=== PATIENT | male | born 1950 | race Caucasian/White ===

== ENCOUNTER → 2017-06-03 11:27 | Outpatient (CLI) | payer MEDICARE, SELFPAY ==
[2017-06-03 13:10] LABS: Absolute Lymphocyte Count 3.11 X10^3/ul (0.83-4.51); Absolute Neutrophil Count 6.7 X10^3/uL (2.0-7.7); Basophil# 0.04 X10^3/uL; Basophil% 0.3 % (0-1); Eosinophil# 0.31 X10^3/uL; Eosinophils% 2.7 % (0-5); Hemoglobin 16.3 g/dl (13.0-16.5); Lymphocyte # 3.11 X10^3/ul (4.0); Mean Corp Hgb Conc 32.6 g/gl (32-36); Mean Corpuscular Hgb 30.1 pg (27.0-32.0); Mean Corpuscular Volume 92.4 fL (80-94); Monocyte# 1.27 X10^3/uL; Neutrophil % 58.3 % (47-70); Platelet Count 165 K/mm3 (150-450); RBC Distribution Width CV 13.7 % (11.6-14.6); RBC Distribution Width SD 45.1 fl (35.1-43.9); Red Blood Count 5.41 M/mm3 (4.6-6.2); White Blood Count 11.5 K/mm3 (4.4-11.0)
[2017-06-03 13:11] LABS: POSITIVE COUNT NO; POSITIVE DIFFERENTIAL NO; POSITIVE MORPHOLOGY NO
[2017-06-03 13:34] LABS: AST(SGOT) 26 U/L (15-37); Alanine Aminotransfer ALT/SGPT 54 U/L (16-61); Alkaline Phosphatase 120 U/L (45-117); Anion Gap 8 (5-15); BUN 19 mg/dL (7-18); BUN/Creat Ratio 17.6 RATIO (10-20); Calcium,Total 9.4 mg/dL (8.5-10.1); Chloride 103 mmol/L (98-107); Creatinine, Serum 1.08 mg/dL (0.70-1.30); EST Glomerular Filtration Rate 73 mL/min (>60); Est Glom Filt Rate - Afr Amer 88 mL/min (>60); Globulin 3.9 g/dL (2.2-4.2); Glucose 108 mg/dL (74-106); Potassium 4.3 mmol/L (3.5-5.1); Protein, Total 7.9 g/dL (6.4-8.2); Sodium Level 139 mmol/L (136-145)
== END ==
PROVIDERS: Family Provider Family Medicine Geriatric Medicine; PCP Family Medicine Geriatric Medicine; Visit Provider Family Medicine Geriatric Medicine
DX: E11.9 Type 2 diabetes mellitus without complications (principal); E23.6 Other disorders of pituitary gland; I10 Essential (primary) hypertension
CPT/HCPCS: 36415; 80053; 84403; 84443; 85025

== ENCOUNTER → 2017-12-11 11:17 | Outpatient (CLI) | payer MEDICARE, SELFPAY ==
[2017-12-11 12:43] LABS: Hematocrit 47.7 % (40-54); Hemoglobin 15.6 g/dl (13.0-16.5); Mean Corp Hgb Conc 32.7 g/gl (32-36); Mean Corpuscular Hgb 29.9 pg (27.0-32.0); Mean Corpuscular Volume 91.4 fL (80-94); Mean Platelet Vol. 12.3 fl (6.2-12.0); Platelet Count 174 K/mm3 (150-450); RBC Distribution Width CV 14.2 % (11.6-14.6); RBC Distribution Width SD 47.1 fl (35.1-43.9); Red Blood Count 5.22 M/mm3 (4.6-6.2); White Blood Count 10.6 K/mm3 (4.4-11.0)
[2017-12-11 12:44] LABS: Absolute Lymphocyte Count 3.03 X10^3/ul (0.83-4.51); Absolute Neutrophil Count 5.9 X10^3/uL (2.0-7.7); Basophil# 0.06 X10^3/uL; Basophil% 0.6 % (0-1); Eosinophils% 2.8 % (0-5); Lymphocyte # 3.03 X10^3/ul (4.0); Lymphocyte % 28.7 % (19-41); Monocyte# 1.13 X10^3/uL; Monocyte% 10.7 % (0-10); Neutrophil # 5.92 X10^3/uL (2.7-7.7); Neutrophil % 56.2 % (47-70)
[2017-12-11 12:49] LABS: POSITIVE COUNT NO; POSITIVE DIFFERENTIAL NO; POSITIVE MORPHOLOGY NO
[2017-12-11 13:01] LABS: Vitamin D,25 Hydroxy 9.6 ng/mL (29.95-100.01)
[2017-12-11 13:03] LABS: AST(SGOT) 19 U/L (15-37); Alanine Aminotransfer ALT/SGPT 42 U/L (16-61); Albumin, Serum 3.8 g/dL (3.2-5.0); Alkaline Phosphatase 118 U/L (45-117); Anion Gap 10 (5-15); BUN 23 mg/dL (7-18); BUN/Creat Ratio 18.5 RATIO (10-20); Calcium,Total 9.2 mg/dL (8.5-10.1); Chloride 103 mmol/L (98-107); Creatinine, Serum 1.24 mg/dL (0.70-1.30); EST Glomerular Filtration Rate 62 mL/min (>60); Est Glom Filt Rate - Afr Amer 75 mL/min (>60); Glucose 114 mg/dL (74-106); PSA,Total - Annual Screen 0.26 ng/mL (0.00-4.00); Potassium 4.1 mmol/L (3.5-5.1); Protein, Total 7.8 g/dL (6.4-8.2); Sodium Level 139 mmol/L (136-145); Thyroid Stim Hormone (TSH) 1.54 uIU/mL (0.358-3.74)
[2017-12-12 09:11] LABS: Hep C Antibodies <0.1 s/co ratio (0.0-0.9)
== END ==
PROVIDERS: Family Provider Family Medicine Geriatric Medicine; PCP Family Medicine Geriatric Medicine; Visit Provider Family Medicine Geriatric Medicine
DX: E11.9 Type 2 diabetes mellitus without complications (principal); I10 Essential (primary) hypertension; E23.6 Other disorders of pituitary gland; E55.9 Vitamin D deficiency, unspecified; Z12.5 Encounter for screening for malignant neoplasm of prostate; Z13.89 Encounter for screening for other disorder
CPT/HCPCS: 36415; 80053; 82306; 84153; 84403; 84443; 85025; 86803; G0103

== ENCOUNTER → 2017-12-16 15:57 | Outpatient (CLI) | payer MEDICARE, OTHER, SELFPAY ==
--- NOTE | 2017-12-16 16:02 | CT_ITS ---
STUDY: LOW DOSE CT LUNG CANCER SCREENING REASON FOR EXAM: Male, 67 years old. 25 pack-year smoking history. RADIATION DOSAGE (If Supplied By Facility): CTDIvol = ( 4.02 ) mGy, DLP = ( 152.50 ) mGycm TECHNIQUE: No contrast was administered. Low dose technique was utilized (average mAS-38 and kVp 120). 1.25 mm axial source images with a slice interval of 1.25-mm were reconstructed in lung windows. 2.5 mm axial source images with a slice interval of 2.5-mm were reconstructed in lung windows. 5.0 mm axial source images with a slice interval of 5.0-mm were reconstructed in soft tissue windows. Nodule measured using lung windows on PACS and/or independent workstation with automated measurement of minimum and maximum diameter. Nodule measurement reported as average diameter rounded to the nearest whole number. Growth is defined as an increase ins size of greater than 1.5 mm. COMPARISON: December 02, 2014. NODULES: Total lung nodules (excluding granulomas): 0 Emphysema: There are diffuse emphysematous changes of the lungs which appears stable. There is minimal dependent changes at the lung bases. There is mild bilateral apical pleural scarring. Endobronchial lesion: No Aorta: Normal Coronary arteries: There are coronary artery calcifications. Heart: The heart is normal in size. Pulmonary artery: Normal Mediastinal nodes: None Other chest and abdominal findings: Minimal degenerative changes of the thoracic spine. CT/Low Dose CT Lung Screening IMPRESSION: Lung-RADS category 1 - Continue annual screening with LDCT in 12 months. IMPORTANT NOTES FOR USE: ACR Lung-RADS Version 1.0 Assessment Categories Release Date: July 20, 2013 Category: Coded 0-4 bases on nodule(s) with highest degree of suspicion. Negative screen is defined as categories 1 and 2; a positive screen is defined as categories 3 and 4. Category 3 and 4A nodules that are unchanged on interval CT should be coded as category 2, and individuals returned to screening in 12 months. Category 4X: Category 3 or 4 nodules with additional imaging findings that increase the suspicion of lung cancer, such as spiculation, GGN that doubles in size in 1 year, enlarged lymph notes, etc. Category Modifiers: S (significant finding unrelated to lung cancer) and C (prior history of treated lung cancer) may be added to the 0-4 Lung-RADS Electronically Signed: Greg Velez DO at 23:32 EDT Tel [phone], Service support ,
== END ==
PROVIDERS: Family Provider Family Medicine Geriatric Medicine; PCP Family Medicine Geriatric Medicine; Visit Provider Family Medicine Geriatric Medicine
DX: Z12.2 Encounter for screening for malignant neoplasm of respiratory organs (principal); Z87.891 Personal history of nicotine dependence
CPT/HCPCS: G0297

== ENCOUNTER → 2018-06-17 14:48 | Outpatient (CLI) | payer MEDICARE, OTHER, SELFPAY ==
[2018-06-17 16:10] LABS: Absolute Lymphocyte Count 2.67 X10^3/ul (0.83-4.51); Absolute Neutrophil Count 6.7 X10^3/uL (2.0-7.7); Basophil# 0.05 X10^3/uL; Basophil% 0.5 % (0-1); Eosinophil# 0.28 X10^3/uL; Eosinophils% 2.6 % (0-5); Hematocrit 47.6 % (40-54); Hemoglobin 15.5 g/dl (13.0-16.5); Lymphocyte # 2.67 X10^3/ul (4.0); Lymphocyte % 24.4 % (19-41); Mean Corp Hgb Conc 32.6 g/gl (32-36); Mean Corpuscular Hgb 29.8 pg (27.0-32.0); Mean Corpuscular Volume 91.5 fL (80-94); Mean Platelet Vol. 12.7 fl (6.2-12.0); Monocyte# 1.15 X10^3/uL; Monocyte% 10.5 % (0-10); Neutrophil # 6.71 X10^3/uL (2.7-7.7); Neutrophil % 61.3 % (47-70); Platelet Count 172 K/mm3 (150-450); RBC Distribution Width CV 14.2 % (11.6-14.6); RBC Distribution Width SD 47.5 fl (35.1-43.9); White Blood Count 10.9 K/mm3 (4.4-11.0)
[2018-06-17 16:13] LABS: POSITIVE COUNT NO; POSITIVE DIFFERENTIAL NO; POSITIVE MORPHOLOGY NO
[2018-06-17 16:31] LABS: Vitamin D,25 Hydroxy 34.7 ng/mL (29.95-100.01)
[2018-06-17 16:33] LABS: AST(SGOT) 25 U/L (15-37); Alanine Aminotransfer ALT/SGPT 51 U/L (16-61); Albumin, Serum 3.8 g/dL (3.2-5.0); Alkaline Phosphatase 117 U/L (45-117); Anion Gap 9 (5-15); BUN 20 mg/dL (7-18); BUN/Creat Ratio 16.7 RATIO (10-20); Chloride 108 mmol/L (98-107); EST Glomerular Filtration Rate 64 mL/min (>60); Est Glom Filt Rate - Afr Amer 78 mL/min (>60); Globulin 3.8 g/dL (2.2-4.2); Glucose 142 mg/dL (74-106); Potassium 4.1 mmol/L (3.5-5.1); Protein, Total 7.6 g/dL (6.4-8.2); Sodium Level 141 mmol/L (136-145); Thyroid Stim Hormone (TSH) 1.88 uIU/mL (0.358-3.74)
== END ==
PROVIDERS: Family Provider Family Medicine Geriatric Medicine; PCP Family Medicine Geriatric Medicine; Visit Provider Family Medicine Geriatric Medicine
DX: E11.9 Type 2 diabetes mellitus without complications (principal); I10 Essential (primary) hypertension; E23.6 Other disorders of pituitary gland; E55.9 Vitamin D deficiency, unspecified
CPT/HCPCS: 36415; 80053; 82306; 84403; 84443; 85025

== ENCOUNTER → 2018-12-16 13:56 | Outpatient (CLI) | payer MEDICARE, OTHER, SELFPAY ==
[2018-12-16 16:34] LABS: Absolute Neutrophil Count 7.6 X10^3/uL (2.0-7.7); Basophil# 0.07 X10^3/uL; Basophil% 0.6 % (0-1); Eosinophils% 1.7 % (0-5); Hematocrit 50.6 % (40-54); Hemoglobin 16.2 g/dL (13.0-16.5); Lymphocyte % 20.1 % (19-41); Mean Corpuscular Hgb 29.4 pg (27.0-32.0); Mean Corpuscular Volume 91.8 fL (80-94); Mean Platelet Vol. 12.9 fl (6.2-12.0); Monocyte# 1.14 X10^3/uL; Monocyte% 9.9 % (0-10); NRBC Flagged by Analyzer 0 % (0-5); Neutrophil # 7.62 X10^3/uL (2.7-7.7); Neutrophil % 66.5 % (47-70); Platelet Count 170 K/mm3 (150-450); RBC Distribution Width CV 13.9 % (11.6-14.6); RBC Distribution Width SD 47.1 fl (35.1-43.9); Red Blood Count 5.51 M/mm3 (4.6-6.2); White Blood Count 11.5 K/mm3 (4.4-11.0)
[2018-12-16 16:58] LABS: AST(SGOT) 24 U/L (15-37); Alanine Aminotransfer ALT/SGPT 49 U/L (16-61); Albumin, Serum 3.8 g/dL (3.2-5.0); Alkaline Phosphatase 132 U/L (45-117); Anion Gap 10 (5-15); BUN 18 mg/dL (7-18); BUN/Creat Ratio 15.5 RATIO (10-20); Calcium,Total 9.3 mg/dL (8.5-10.1); Chloride 104 mmol/L (98-107); Creatinine, Serum 1.16 mg/dL (0.70-1.30); EST Glomerular Filtration Rate 67 mL/min (>60); Est Glom Filt Rate - Afr Amer 81 mL/min (>60); Glucose 155 mg/dL (74-106); PSA,Total - Annual Screen 0.49 ng/mL (0.00-4.00); Potassium 4.2 mmol/L (3.5-5.1); Protein, Total 7.8 g/dL (6.4-8.2); Sodium Level 140 mmol/L (136-145); Thyroid Stim Hormone (TSH) 1.43 uIU/mL (0.358-3.74); Vitamin D,25 Hydroxy 21.1 ng/mL (29.95-100.01)
== END ==
PROVIDERS: Family Provider Family Medicine Geriatric Medicine; PCP Family Medicine Geriatric Medicine; Visit Provider Family Medicine Geriatric Medicine
DX: E11.9 Type 2 diabetes mellitus without complications (principal); I10 Essential (primary) hypertension; E23.6 Other disorders of pituitary gland; E55.9 Vitamin D deficiency, unspecified; Z12.5 Encounter for screening for malignant neoplasm of prostate
CPT/HCPCS: 36415; 80053; 82306; 84153; 84403; 84443; 85025; G0103

== ENCOUNTER → 2018-12-22 13:40 | Outpatient (CLI) | payer MEDICARE, OTHER, SELFPAY ==
--- NOTE | 2018-12-22 13:41 | CT_ITS ---
STUDY: LOW DOSE CT LUNG CANCER SCREENING REASON FOR EXAM: Male, [address] chest December 16, 2017 RADIATION DOSAGE (If Supplied By Facility): CTDIvol = ( 4.02 ) mGy, DLP = ( 156.02 ) mGycm TECHNIQUE: No contrast was administered. Low dose technique was utilized (average mAS-38 and kVp 120). 1.25 mm axial source images with a slice interval of 1.25-mm were reconstructed in lung windows. 2.5 mm axial source images with a slice interval of 2.5-mm were reconstructed in lung windows. 5.0 mm axial source images with a slice interval of 5.0-mm were reconstructed in soft tissue windows. Nodule measured using lung windows on PACS and/or independent workstation with automated measurement of minimum and maximum diameter. Nodule measurement reported as average diameter rounded to the nearest whole number. Growth is defined as an increase ins size of greater than 1.5 mm. COMPARISON: None. NODULES: Total lung nodules (excluding granulomas): 0 Emphysema: Mild Endobronchial lesion: None Aorta: Normal Coronary arteries: Coronary artery calcifications. Heart: Normal Pulmonary artery: Normal Mediastinal nodes: Normal Other chest and abdominal findings: Unremarkable CT/Low Dose CT Lung Screening IMPRESSION: No significant pulmonary nodules or masses. LRADS 1. IMPORTANT NOTES FOR USE: ACR Lung-RADS Version 1.0 Assessment Categories Release Date: July 20, 2013 Category: Coded 0-4 bases on nodule(s) with highest degree of suspicion. Negative screen is defined as categories 1 and 2; a positive screen is defined as categories 3 and 4. Category 3 and 4A nodules that are unchanged on interval CT should be coded as category 2, and individuals returned to screening in 12 months. Category 4X: Category 3 or 4 nodules with additional imaging findings that increase the suspicion of lung cancer, such as spiculation, GGN that doubles in size in 1 year, enlarged lymph notes, etc. Category Modifiers: S (significant finding unrelated to lung cancer) and C (prior history of treated lung cancer) may be added to the 0-4 Lung-RADS Electronically Signed: Carlin Layton, at 17:11 EDT Tel , Service support ,
== END ==
PROVIDERS: Family Provider Family Medicine Geriatric Medicine; PCP Family Medicine Geriatric Medicine; Referring Provider Family Medicine Geriatric Medicine; Visit Provider Family Medicine Geriatric Medicine
DX: Z87.891 Personal history of nicotine dependence (principal)
CPT/HCPCS: G0297

== ENCOUNTER → 2019-05-04 12:22 | Outpatient (CLI) | payer MEDICARE, OTHER, SELFPAY ==
--- NOTE | 2019-05-04 12:39 | RAD_ITS ---
STUDY: X-RAY CHEST REASON FOR EXAM: Male, 68 years old. SOB SINCE JANUARY TECHNIQUE: PA and lateral views of the chest. COMPARISON: None. FINDINGS: Hyperinflation. Mild increase in linear markings at the lung bases slightly worse on the left side suggestive of a atelectasis and/or scarring. Normal size heart. Normal mediastinum and lai. Normal visualized pulmonary arteries. There is atherosclerotic calcification of the aortic arch with tortuosity. There are diffuse degenerative changes of the visualized thoracic spine. Normal visualized ribs, clavicles, and shoulders. There is no demonstrated abnormality of the visualized soft tissue structures of the upper abdomen. RAD/Chest PA and Lateral IMPRESSION: Hyperinflation. Mild degree of increased markings at the lung bases suggestive of linear atelectasis and/or scarring. Electronically Signed: Morales Ramírez, at 13:31 EST , Service support ,
[2019-05-04 14:48] LABS: Absolute Lymphocyte Count 2.63 X10^3/uL (0.83-4.51); Absolute Neutrophil Count 7.2 X10^3/uL (2.0-7.7); Basophil% 0.8 % (0-1); Eosinophils% 3.4 % (0-5); Hematocrit 49.5 % (40-54); Hemoglobin 15.5 g/dL (13.0-16.5); Lymphocyte # 2.63 X10^3/ul (4.0); Lymphocyte % 22.3 % (19-41); Mean Corp Hgb Conc 31.3 g/dL (32-36); Mean Corpuscular Hgb 28.9 pg (27.0-32.0); Mean Corpuscular Volume 92.4 fL (80-94); Monocyte% 10.2 % (0-10); NRBC Flagged by Analyzer 0 % (0-5); Neutrophil # 7.24 X10^3/uL (2.7-7.7); Neutrophil % 61.4 % (47-70); Platelet Count 187 K/mm3 (150-450); RBC Distribution Width CV 13.7 % (11.6-14.6); RBC Distribution Width SD 46.1 fl (35.1-43.9); Red Blood Count 5.36 M/mm3 (4.6-6.2); White Blood Count 11.8 K/mm3 (4.4-11.0)
[2019-05-04 15:17] LABS: D-Dimer Quantitative (DVT/PE) 3.86 FEU/ug/m (0.27-0.49)
[2019-05-04 15:25] LABS: Anion Gap 4 (5-15); BNP,B-Type NATRIURETIC PEPTIDE 79.6 pg/mL (0-100); BUN 21 mg/dL (7-18); BUN/Creat Ratio 17.2 RATIO (10-20); CPK Total, Creatine Kinase 99 U/L (39-308); Calcium,Total 9.7 mg/dL (8.5-10.1); Chloride 112 mmol/L (98-107); Creatinine, Serum 1.22 mg/dL (0.70-1.30); EST Glomerular Filtration Rate 63 mL/min (>60); Est Glom Filt Rate - Afr Amer 76 mL/min (>60); Glucose 126 mg/dL (74-106); Potassium 4.4 mmol/L (3.5-5.1); Sodium Level 143 mmol/L (136-145)
--- NOTE | 2019-05-04 17:12 | CT_ITS ---
STUDY: CTA CHEST REASON FOR EXAM: Male, 68 years old. Elevated D-dimer, cough x 2 months, SOB, hx DVT, no blood thinners x 1 year. Hx hypertension. Patient taken to ED for further evaluation-ordering physician notified. RADIATION DOSAGE (If Supplied By Facility): CTDIvol = ( 12.44 ) mGy, DLP = ( 521.15 ) mGycm TECHNIQUE: The examination was performed with the intravenous administration of 100mL Isovue 370. Post-processing of the angiographic images was performed, with multiplanar reformation and 3D reconstruction. Individualized dose optimization techniques were used for this CT. COMPARISON: CT chest 12/22/2018. FINDINGS: There are linear filling defects within the main pulmonary which crosses into the right and left main pulmonary arteries indicating a saddle type embolus. There is a large thrombus within the distal right main pulmonary artery. There are extensive bilateral upper, right middle lower lobe segmental and subsegmental pulmonary emboli with multiple filling defects. There is mass effect on the interventricular septum bowing to the left. Decreased volume and within the left ventricle. There is mild distention of the right ventricle. There is significant motion artifact on exam. There is scattered bulla and pulmonary scarring. Normal thoracic aorta and visualized great vessels. There is no demonstrated aortic dissection. Normal heart and pericardium. Normal mediastinum. Normal hilar regions. Normal visualized trachea and bronchi. The lungs are well expanded. There is linear scarring with subsegmental atelectasis. Normal pleura. Normal chest wall structures. Normal osseous structures. There is hypodensity within the liver which is incompletely included on rebal-rh-sgen. CT/CTA Chest W/WO Contrast IMPRESSION: Extensive pulmonary emboli including saddle embolus, likely right heart strain Scattered bulla and pulmonary scarring Fatty infiltration of the liver Motion artifact Results were discussed with Dr. Guallpa after my review at 6:38 PM 05/04/2019. N.B. : The above information has been verbally conveyed by Ricky Isbell to Dr. Ramu MD, on 05/04/2019 18:39:27 (ET). Electronically Signed: Ricky Isbell, at 18:43 EST Tel , Service support ,
[2019-05-06 12:29] LABS: Myoglobin, Serum 105 ng/mL (28-72)
== END ==
LOC: POLAB3 12:22 → RAD 12:38
PROVIDERS: PCP Family Medicine Geriatric Medicine; Referring Provider Family Medicine Geriatric Medicine; Visit Provider Family Medicine Geriatric Medicine
DX: R06.89 Other abnormalities of breathing (principal); R06.09 Other forms of dyspnea; R79.9 Abnormal finding of blood chemistry, unspecified
CPT/HCPCS: 36415; 71046; 71275; 80048; 82550; 83874; 83880; 84484; 85025; 85379; Q9967

== ENCOUNTER 2019-05-04 17:40 | Inpatient (IN) | payer MEDICARE, OTHER, SELFPAY ==
[2019-05-04] VITALS (16 sets, daily range): BP systolic 133–174; BP diastolic 74–95; PULSE 103–117; RESP 16–21; TEMP 36.4–36.7; O2SAT 91–97; BMI 38.7
--- NOTE | 2019-05-04 18:04 | EKG12_ITS ---
Test Reason : DYSRHYTHMIA Blood Pressure : / mmHG Vent. Rate : 112 BPM Atrial Rate : 112 BPM P-R Int : 194 ms QRS Dur : 092 ms QT Int : 320 ms P-R-T Axes : 051 066 076 degrees QTc Int : 436 ms Sinus tachycardia Nonspecific ST abnormality Abnormal ECG Confirmed by MISTY ALVARENGA, MAXIMILIANO ([id number]), content editor CHENG KIRBY ([id number]) on 05/06/2019 9:53:00 AM Referred By: JOSÉ Confirmed By:MAXIMILIANO JAY MD
[2019-05-04 18:45] LABS: Absolute Lymphocyte Count 0.63 X10^3/uL (0.83-4.51); Absolute Neutrophil Count 10.5 X10^3/uL (2.0-7.7); Basophil# 0.05 X10^3/uL; Basophil% 0.4 % (0-1); Eosinophil# 0.01 X10^3/uL; Eosinophils% 0.1 % (0-5); Hematocrit 48.5 % (40-54); Hemoglobin 15.4 g/dL (13.0-16.5); Lymphocyte # 0.63 X10^3/ul (4.0); Lymphocyte % 5.5 % (19-41); Mean Corp Hgb Conc 31.8 g/dL (32-36); Mean Corpuscular Hgb 29.2 pg (27.0-32.0); Mean Platelet Vol. 11.5 fl (6.2-12.0); Monocyte# 0.09 X10^3/uL; Monocyte% 0.8 % (0-10); NRBC Flagged by Analyzer 0 % (0-5); Neutrophil # 10.49 X10^3/uL (2.7-7.7); Neutrophil % 91.5 % (47-70); Platelet Count 178 K/mm3 (150-450); RBC Distribution Width CV 13.4 % (11.6-14.6); RBC Distribution Width SD 45.4 fl (35.1-43.9); Red Blood Count 5.27 M/mm3 (4.6-6.2); White Blood Count 11.5 K/mm3 (4.4-11.0)
[2019-05-04 18:55] LABS: Prothrombin Time (Protime)PT. 13.1 SECONDS (11.7-14.9)
[2019-05-04 18:56] LABS: Partial Thromboplast Time 26.2 Seconds (24.1-36.2)
--- NOTE | 2019-05-04 18:59 | ED.DCSUM_ITS ---
- ER Visit Summary Date of Service: 05/04/19 Chief Complaint: Abnormal CTA History of Present Illness: The patient is a 68 M with a history of DVT. He has been off anticoagulation for a year at his doctor's recommendation. He had an upper respiratory infection, but his symptoms persisted over the past month. He has coughing and shortness of breath. He denies pain or fever. He went for an outpatient CTA and was told it was abnormal, and he was referred to the ED. Physical Examination: Afebrile and vital signs unremarkable except for heart rate of 117. Lower extremity edema noted, nontender. Heart tachycardic but regular. Lungs clear. Test Results: EKG shows sinus rhythm at a rate of 112. No sign of ischemia or infarction pattern. White count 11.5. INR 1.0. PTT pending. Metabolic panel and troponin pending. Outpatient CTA showed extensive PEs with a saddle embolism and suspected right heart strain. Emergency Department Course and Treatment: Labs pending. Outpatient testing showed creatinine 1.22, BUN 21, GFR 63. PTT pending, but will start anticoagulation with heparin. Patient is stable and will contact the hospitalist. Treatment Plan: As above Disposition: Admission Impression: Saddle pulmonary embolism This note was generated with [facility] dictation software. It may contain incorrect words, spelling, and punctuation that were not noted in review of the chart prior to signing ED Disposition - Plan for ED Patient: Referrals: Bulmaro Curtis Chi, MD [Primary Care Provider] -
[2019-05-04] MEDS: Heparin Injection (Vial) 5,000 UNIT/ML VIAL 4000 UNIT IV (19:02)
[2019-05-04] MEDS: HEPARIN/D5w 25,000 UNITS 25,000 UNITS/250 ML IV.SOLN. 10 UNITS IV (19:03)
[2019-05-04 19:04] LABS: Anion Gap 6 (5-15); BUN 22 mg/dL (7-18); Calcium,Total 9.2 mg/dL (8.5-10.1); Chloride 108 mmol/L (98-107); Creatinine, Serum 1.47 mg/dL (0.70-1.30); EST Glomerular Filtration Rate 51 mL/min (>60); Est Glom Filt Rate - Afr Amer 61 mL/min (>60); Estimated Creatinine Clearance 58.28 ml/min; Glucose 341 mg/dL (74-106); Potassium 4.3 mmol/L (3.5-5.1); Sodium Level 140 mmol/L (136-145)
--- NOTE | 2019-05-04 20:12 | HP.PCM_ITS ---
History of Present Illness Date of Admission: 05/04/19 Chief Complaint: Shortness of breath The patient is a 68 year old M with a past medical history as outlined including a history of right lower extremity DVT. He was admitted through the ED on 05/04/2019 with a complaint of shortness of breath. Shortness of breath had been going on for about a month but he states is gradually been worsening. He had assisted orthopnea and PND and also noticed swelling in his lower extremities mainly in his right lower extremity. He denied any chest pain or palpitation, dizziness, nausea vomiting or diarrhea. He continues PCP for review about a week ago and states he was sent in for chest x-ray. He denies any recent long distance travel or any recent surgeries and states he is usually sedentary at home. He was subsequently called in for CTA of the chest which was done on outpatient basis today and showed bilateral PE. He was therefore brought into the ED. In the ED, vitals were significant for pulse rate of 108 and respiratory rate of 20 and was saturating at 94% on 3 L of oxygen. Patient is not on oxygen at home. CBC showed WBC of 11.5 and chemistry showed creatinine of 1.47. Initial troponin was negative and BNP was ordered and pending. He has been admitted to be managed for acute hypoxic respiratory insufficiency due to bilateral PE. Of note, patient does have a history of right lower extremity DVT and was on xarelto for about a year. He was taken of the Xarelto about a year ago by his PCP and he is not sure why. Does not have any history of GI bleed or nosebleeds. [] Past Medical History Allergies Sulfa (Sulfonamide Antibiotics) Allergy (Verified 05/04/19 17:43) Rash Home Medications: Ambulatory Orders Medication Instructions Recorded Albuterol Sulfate [Ventolin Hfa] 2 puff IH BID 05/04/19 Atorvastatin Calcium 40 mg PO QHS 05/04/19 Budesonide/Formoterol 160/4.5 2 puff INHALATION BID 05/04/19 [Symbicort 160/4.5 Mcg Inhaler (SP)] Cholecalciferol (VIT D3) [Vitamin 1,000 unit PO DAILY 05/04/19 D] Losartan/Hydrochlorothiazide 1 tab PO DAILY 05/04/19 [Losartan-Hctz 100-12.5 mg Tab] Psychiatric History: No pertinent psych hx Lives: Spouse/ Significant Other Smoking Status: Former smoker Tobacco Use: Cigarettes - quit ~ 1 month ago Alcohol: Occasional Drugs: None - *Family History Maternal History Items: No pertinent history Paternal History Items: Heart Disease Review of Systems Constitutional: Denies: Chills, Fever, Malaise, Weakness, Weight Change Eyes: Denies: Blurred vision HEENT: Denies: Head Aches, Sinus Congestion, Sinus Drainage Cardiovascular: Reports: Orthopnea, Paroxysmal Noc. Dyspnea. Denies: Chest Pain, Light Headedness, Palpitations, Syncope Respiratory: Reports: Shortness of Breath, Shortness of breath at rest, Shortness of breath upon exertion. Denies: Cough, Wheezing Gastrointestinal: Denies: Abdominal Pain, Nausea, Vomiting Genitourinary: Denies: Dysuria Musculoskeletal: Denies: Joint Pain, Joint Tenderness Skin: Denies: Rash, Wounds Neurological: Denies: Numbness, Tingling, Focal weakness Psychiatric: Denies: Anxiety, Depression, Homicidal Ideations, Suicidal Ideations Hematologic/ Lymphatic: Denies: Easy Bruising, Easy Bleeding VTE Information - Inpt Only VTE Present on Admission: Yes - Physical Exam Vitals/I&O's: Vital Signs Temp Pulse Resp BP Pulse Ox 98.1 F 108 H 20 H 173/78 H 94 05/04/19 20:03 05/04/19 20:03 05/04/19 20:03 05/04/19 20:03 05/04/19 20:03 Oxygen Flow Rate (L/min) 3 Oxygen Delivery Method Nasal Cannula Weight: 309 lb 8 oz Body Mass Index (BMI) 38.7 General: Alert, Oriented x3, Cooperative, No apparent distress HEENT: Atraumatic, PERRLA, EOMI, Normocephalic Oral: Moist Mucosa Neck: Supple, No JVD, Negative Carotid Bruits Lungs: Clear to auscultation, Normal air movement, No rhonchi, No wheeze, No rales Cardiovascular: Regular Rhythm, Normal S1, Normal S2, No murmurs, Tachycardic Abdomen: Bowel Sounds Present, Soft, Non Tender, Non-Distended, No Hepato- splenomegaly Extremities: No clubbing, No cyanosis, Capillary Refill Less than 3 Seconds, - - mild bipedal pitting edema, RLE >LLE Skin: No rashes, No breakdown Musculoskeletal: No Tenderness to Palpation of Joints or Extremities Lymphatic: No Cervical, Supraclavicular, or Inguinal Adenopathy Neurological: Cranial nerves II-XII grossly intact, Neuro grossly intact, Motor Exam 5/5 strength throughout Psych/Mental Status: Normal Affect, Appropriate, Alert and oriented to time, place, person, mood and affect Laboratory Results 05/04/19 18:32: WBC 11.5 H, RBC 5.27, Hgb 15.4, Hct 48.5, MCV 92.0, MCH 29.2, MCHC 31.8 L, RDW Std Deviation 45.4 H, RDW Coeff of Neftali 13.4, Plt Count 178, MPV 11.5, Immature Gran % (Auto) 1.700 H, Neut % (Auto) 91.5 H, Lymph % (Auto) 5.5 L , Evangeline % (Auto) 0.8, Eos % (Auto) 0.1, Baso % (Auto) 0.4, Absolute Neuts (auto) 10.5 H, Absolute Lymphs (auto) 0.63 L, Nucleated RBC % 0 05/04/19 18:32: PT 13.1, INR 1.0, APTT 26.2 05/04/19 18:32: Sodium 140, Potassium 4.3, Chloride 108 H, Carbon Dioxide 26.0, Anion Gap 6, BUN 22 H, Creatinine 1.47 H, Estim Creat Clear Calc 58.28, Est GFR (MDRD) Af Amer 61, Est GFR (MDRD) Non-Af 51 L, BUN/Creatinine Ratio 15.0, Glucose 341 H, Calcium 9.2, Troponin I < 0.015 05/04/19 18:32: B-Natriuretic Peptide Pending Current Medications Heparin Sodium (Porcine) (Heparin Na) 0 unit IV UD PRN; Protocol Heparin Sodium/Dextrose () 25,000 units in 250 mls @ 10 mls/hr IV .Q25H [facility]; Protocol Last Admin: 05/04/19 19:03 Dose: 10 mls/hr Documented by: Sodium Chloride () 10 - 40 ml IV UD PRN PRN Reason: SALINE FLUSH Assessment/Plan 68-year-old patient admitted with a complaint of shortness of breath and found to have bilateral PE. 1. Submassive bilateral PE * Has a history of right lower extremity DVT and was on xarelto for about a year. Patient states he was taken off of xarelto about a year ago his PCP and does not know why. He denies any history of GI bleed or nosebleeds. * CTA done today showed extensive pulmonary emboli including saddle embolus and likely right heart strain with scattered bullae and pulmonary scarring as well as fatty infiltration of the liver. * has tachypnea and tachycardia; CT of the chest also showed right heart strain * initial plan was to admit to PCu; however per discussion with Dr Carolina, patient is pretty stable now, but at risk of decompensation, will therefore transfer patient to ICU for closer monitoring. Per discussion with Dr Carolina, if patient is to deteriorate and become hypotensive, then he may need tPA; Parts [employer] to be informed if he deteriorates. Night hospitalist informed * on heparin drip; will continue * 2D echo * Counseled that he will need to be anticoagulated for life. To consider switching to Xarelto tomorrow. * pulmonology consulted- discussed with Dr Carolina on phone. * 2. Acute hypoxic respiratory insufficiency due to submassive bilateral PE * currently on 3 L of oxygen. Titrate to maintain saturation above 90%. * 3. Hypertension: * Blood pressure is 173/78 * On losartan hydrochlorothiazide 100/12.5 mg daily. * IV hydralazine PRN. * 4. Hyperlipidemia: On statin. DVT prophylaxis: Not indicated as patient is on heparin drip for bilateral PE \ Code status: full code * Patient counseled extensively about different types of CODE STATUS including full code, DNR CCA and DNR CCA. * Patient elects to be full code. * Total [id number] time 16 minutes. Code Visit Inpatient E&M: 85673 Init Hosp L3 Procedures: 63777 Advncd Care Plan 30 Min
[2019-05-04 20:17] LABS: BNP,B-Type NATRIURETIC PEPTIDE 93.6 pg/mL (0-100)
--- NOTE | 2019-05-04 21:00 | NURSING ---
Report called to CHANDLER Crawford. Patient will be transferred to ICU 2.
[2019-05-04] MEDS: Atorvastatin Calcium 40 MG Tablet PO (21:58)
[2019-05-04] MEDS: Albuterol 2.5 MG/3 ML VIAL.NEB. INHALATION (22:16)
[2019-05-04] MEDS: Budesonide Respules 0.5 MG/2 ML AMPUL.NEB. INHALATION (22:16)
[2019-05-05] VITALS (20 sets, daily range): BP systolic 109–151; BP diastolic 59–94; PULSE 73–103; RESP 13–24; TEMP 36.4–36.8; O2SAT 88–97
[2019-05-05 00:51] LABS: Partial Thromboplast Time 34.3 Seconds (24.1-36.2)
[2019-05-05] MEDS: Heparin Injection (Vial) 5,000 UNIT/ML VIAL IV (00:57)
[2019-05-05] MEDS: 0.9% Saline Lock 10 ML Syringe IV ×2 (00:58→10:56)
[2019-05-05 04:05] LABS: Absolute Neutrophil Count 13.1 X10^3/uL (2.0-7.7); Basophil# 0.04 X10^3/uL; Basophil% 0.3 % (0-1); Hematocrit 46.6 % (40-54); Hemoglobin 14.8 g/dL (13.0-16.5); Lymphocyte % 9.6 % (19-41); Mean Corp Hgb Conc 31.8 g/dL (32-36); Mean Corpuscular Hgb 29.4 pg (27.0-32.0); Mean Corpuscular Volume 92.5 fL (80-94); Mean Platelet Vol. 11.5 fl (6.2-12.0); Monocyte# 0.79 X10^3/uL; NRBC Flagged by Analyzer 0 % (0-5); Neutrophil # 13.13 X10^3/uL (2.7-7.7); Neutrophil % 83.8 % (47-70); Platelet Count 185 K/mm3 (150-450); RBC Distribution Width CV 13.6 % (11.6-14.6); Red Blood Count 5.04 M/mm3 (4.6-6.2); White Blood Count 15.7 K/mm3 (4.4-11.0)
[2019-05-05 04:18] LABS: Anion Gap 6 (5-15); BUN 23 mg/dL (7-18); BUN/Creat Ratio 18.9 RATIO (10-20); Calcium,Total 9.1 mg/dL (8.5-10.1); Chloride 110 mmol/L (98-107); Creatinine, Serum 1.22 mg/dL (0.70-1.30); EST Glomerular Filtration Rate 63 mL/min (>60); Est Glom Filt Rate - Afr Amer 76 mL/min (>60); Estimated Creatinine Clearance 70.22 ml/min; Glucose 188 mg/dL (74-106); Potassium 4.3 mmol/L (3.5-5.1); Sodium Level 143 mmol/L (136-145)
--- NOTE | 2019-05-05 06:44 | PCM.CON.CC ---
Reason for Consult Reason for Consultation: Submassive PE History of Present Illness: The patient is a 68-year-old male, with a history as outlined below, who presented to the emergency department on May 04 due to the presence of shortness of breath, and after having completed a CTA chest, ordered by his primary care provider, which did reveal extensive bilateral pulmonary emboli along with radiographic evidence of right heart strain. The patient reports that in 2014, he was diagnosed with a deep vein thrombosis, for which he was placed on Xarelto for approximately 1 year, after which time, the medication was discontinued by his PCP. The patient denies a known history of any underlying hypercoagulable state. He denies a family history of venous thromboembolism. The patient has not traveled anywhere recently. He does readily admit that he lives a rather sedentary lifestyle. The patient is a previous smoker with a 75-[id number] smoking history, having quit completely 1 month ago. 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 He is currently prescribed both Symbicort and as needed albuterol in his home environment. He does not utilize supplemental oxygen at his baseline. On presentation to the emergency department, the patient was noted to be afebrile and hemodynamically stable. He was, nevertheless, tachycardic. Initial laboratory evaluation revealed a mildly elevated white blood cell count to 11,000. Chemistry profile was notable for an elevated creatinine to 1.47. Troponin and BNP were both negative. I personally discussed the case with the admitting hospitalist and recommended that the patient be monitored in the intensive care setting overnight due to the extensive clot burden noted on his CTA chest. This morning, the patient is asymptomatic and resting in his bedside recliner. He denies the presence of shortness of breath, chest pain or cough. Past Medical History Allergies Sulfa (Sulfonamide Antibiotics) Allergy (Verified 05/04/19 17:43) Rash Home Medications: Ambulatory Orders Medication Instructions Recorded Albuterol Sulfate [Ventolin Hfa] 2 puff IH BID 05/04/19 Atorvastatin Calcium 40 mg PO QHS 05/04/19 Budesonide/Formoterol 160/4.5 2 puff INHALATION BID 05/04/19 [Symbicort 160/4.5 Mcg Inhaler (SP)] Cholecalciferol (VIT D3) [Vitamin 1,000 unit PO DAILY 05/04/19 D] Losartan/Hydrochlorothiazide 1 tab PO DAILY 05/04/19 [Losartan-Hctz 100-12.5 mg Tab] Psychiatric History: No pertinent psych hx Lives: Spouse/ Significant Other Smoking Status: Former smoker Tobacco Use: Cigarettes - quit ~ 1 month ago Alcohol: Occasional Drugs: None - *Family History Maternal History Items: No pertinent history Paternal History Items: Heart Disease Review of Systems Constitutional: Denies: Chills, Fever Eyes: Denies: Blurred vision, Double vision HEENT: Denies: Head Aches, Sinus Congestion, Sinus Drainage Cardiovascular: Denies: Chest Pain, Palpitations Respiratory: Reports: Cough - now resolved, Shortness of Breath - now resolved Gastrointestinal: Denies: Abdominal Pain, Nausea, Vomiting Genitourinary: Denies: Dysuria Musculoskeletal: Denies: Joint Pain, Joint Tenderness Neurological: Denies: Numbness, Tingling, Focal weakness Psychiatric: Denies: Anxiety, Depression, Homicidal Ideations, Suicidal Ideations Hematologic/ Lymphatic: Reports: Hx of blood clot Objective: The patient's most recent lab work, culture data and imaging studies have all been personally reviewed. - Physical Exam Vitals/I&O's: Vital Signs Temp Pulse Resp BP Pulse Ox 98.2 F 90 20 H 124/75 H 96 05/05/19 04:00 05/05/19 05:00 05/05/19 05:00 05/05/19 05:00 05/05/19 05:00 Oxygen Flow Rate (L/min) 3 Oxygen Delivery Method Nasal Cannula Weight: 310 lb 10.101 oz Body Mass Index (BMI) 38.7 Intake and Output for Last 24 Hours 05/03/19 05/04/19 05/05/19 23:59 23:59 23:59 Intake Total 450 / 450 409.33 / 409.33 Output Total 400 / 400 450 / 450 Balance 50 / 50 -40.67 / -40.67 General: Alert, Oriented x3, Cooperative, No apparent distress HEENT: Atraumatic, PERRLA, Normocephalic Oral: No Gingival or Mucosal Lesions/ Ulcerations Neck: Supple, No Nodes, Trachea Midline Lungs: No rhonchi, No wheeze, No rales, Diminished Cardiovascular: Regular rate, Regular Rhythm, Normal S1, Normal S2 Abdomen: Bowel Sounds Present, Soft, Non Tender, Obese Extremities: No clubbing, No cyanosis Skin: No breakdown Musculoskeletal: No Tenderness to Palpation of Joints or Extremities Lymphatic: No Cervical, Supraclavicular, or Inguinal Adenopathy Neurological: Cranial nerves II-XII grossly intact, Neuro grossly intact Psych/Mental Status: Alert and oriented to time, place, person, mood and affect Labs (Last 48 Hours) 05/04/19 05/04/19 05/04/19 18:32 18:32 18:32 WBC 11.5 H RBC 5.27 Hgb 15.4 Hct 48.5 MCV 92.0 MCH 29.2 MCHC 31.8 L RDW Std Deviation 45.4 H RDW Coeff of Neftali 13.4 Plt Count 178 MPV 11.5 Immature Gran % (Auto) 1.700 H Neut % (Auto) 91.5 H Lymph % (Auto) 5.5 L Graves % (Auto) 0.8 Eos % (Auto) 0.1 Baso % (Auto) 0.4 Absolute Neuts (auto) 10.5 H Absolute Lymphs (auto) 0.63 L Nucleated RBC % 0 PT 13.1 INR 1.0 APTT 26.2 Sodium 140 Potassium 4.3 Chloride 108 H Carbon Dioxide 26.0 Anion Gap 6 BUN 22 H Creatinine 1.47 H Estim Creat Clear Calc 58.28 Est GFR (MDRD) Af Amer 61 Est GFR (MDRD) Non-Af 51 L BUN/Creatinine Ratio 15.0 Glucose 341 H Calcium 9.2 Troponin I < 0.015 B-Natriuretic Peptide 05/04/19 05/04/19 05/05/19 18:32 21:30 00:35 WBC RBC Hgb Hct MCV MCH MCHC RDW Std Deviation RDW Coeff of Neftali Plt Count MPV Immature Gran % (Auto) Neut % (Auto) Lymph % (Auto) Graves % (Auto) Eos % (Auto) Baso % (Auto) Absolute Neuts (auto) Absolute Lymphs (auto) Nucleated RBC % PT INR APTT 34.3 Sodium Potassium Chloride Carbon Dioxide Anion Gap BUN Creatinine Estim Creat Clear Calc Est GFR (MDRD) Af Amer Est GFR (MDRD) Non-Af BUN/Creatinine Ratio Glucose Calcium Troponin I < 0.015 B-Natriuretic Peptide 93.6 05/05/19 05/05/19 05/05/19 00:35 03:50 03:50 WBC 15.7 H RBC 5.04 Hgb 14.8 Hct 46.6 MCV 92.5 MCH 29.4 MCHC 31.8 L RDW Std Deviation 46.0 H RDW Coeff of Neftali 13.6 Plt Count 185 MPV 11.5 Immature Gran % (Auto) 1.300 H Neut % (Auto) 83.8 H Lymph % (Auto) 9.6 L Graves % (Auto) 5.0 Eos % (Auto) 0.0 Baso % (Auto) 0.3 Absolute Neuts (auto) 13.1 H Absolute Lymphs (auto) 1.50 Nucleated RBC % 0 PT INR APTT Sodium 143 Potassium 4.3 Chloride 110 H Carbon Dioxide 27.0 Anion Gap 6 BUN 23 H Creatinine 1.22 Estim Creat Clear Calc 70.22 Est GFR (MDRD) Af Amer 76 Est GFR (MDRD) Non-Af 63 BUN/Creatinine Ratio 18.9 Glucose 188 H Calcium 9.1 Troponin I < 0.015 B-Natriuretic Peptide Current Medications Albuterol Sulfate (Ventolin Aerosols) 2.5 mg INHALATION Q2H PRN PRN PRN Reason: SOB/Wheezing Albuterol Sulfate (Ventolin Aerosols) 2.5 mg INHALATION Q6HWA.RT [facility] Last Admin: 05/04/19 22:16 Dose: 2.5 mg Documented by: Atorvastatin Calcium (Lipitor) 40 mg PO QHS [facility] Last Admin: 05/04/19 21:58 Dose: 40 mg Documented by: Budesonide (Pulmicort Aerosol) 0.5 mg INHALATION Q12H.RT [facility] Last Admin: 05/04/19 22:16 Dose: 0.5 mg Documented by: Cholecalciferol (Vitamin D) 1,000 unit PO DAILY [facility] Glucagon () 1 mg IM .X1 PRN PRN Reason: Hypoglycemia Heparin Sodium (Porcine) (Heparin Na) 0 unit IV UD PRN; Protocol Last Admin: 05/05/19 00:57 Dose: 1,000 unit Documented by: Hydralazine HCl (Apresoline Iv) 10 mg IV Q6H PRN PRN PRN Reason: BLOOD PRESSURE ELEVATION Hydrochlorothiazide () 12.5 mg PO DAILY [facility] Heparin Sodium/Dextrose () 25,000 units in 250 mls @ 10 mls/hr IV .Q25H [facility]; Protocol Last Titration: 05/05/19 00:59 Dose: 12 mls/hr Documented by: Dextrose (Dextrose 10%-Water) 250 mls @ 999 mls/hr IV .Q16M PRN; Protocol PRN Reason: HYPOGLYCEMIA Losartan Potassium (Cozaar) 100 mg PO DAILY [facility] Nutritional Formula (Lactose Free) (Ensure Enlive) 120 ml PO 4X/DAY [facility] Last Admin: 05/04/19 21:58 Dose: Not Given Documented by: Sodium Chloride () 10 - 40 ml IV UD PRN PRN Reason: SALINE FLUSH Last Admin: 05/05/19 00:58 Dose: 30 ml Documented by: Assessment/Plan RECOMMENDATIONS: 1. Plan to continue heparin infusion with eventual transition to Xarelto or Eliquis, depending on insurance coverage. 2. Wean supplemental oxygen to maintain saturations at or above 90%. 3. Continue bronchodilator therapy per home regimen. 4. Obtain echocardiogram. 5. Perform walking oximetry study prior to consideration for discharge home. 6. Recommend close outpatient pulmonary follow-up within 2 weeks of discharge. 7. The patient is medically stable for transfer out of the intensive care unit. IMPRESSIONS: 1. Submassive PE/acute hypoxemic respiratory insufficiency The patient presented to the hospital with complaints of shortness of breath and cough in the setting of radiographic evidence of extensive bilateral pulmonary emboli with right heart strain pattern, consistent with submassive pulmonary embolism. The patient does have a history of previous DVT in 2014. At this time, I would recommend lifelong anticoagulation. He is currently on a heparin infusion, which can be transitioned to either Eliquis or Xarelto, depending on insurance coverage. We will plan to check an echocardiogram today. Perform walking oximetry study prior to consideration for discharge home. The patient should follow-up in the pulmonary medicine clinic within 2 weeks of discharge. 2. History of tobacco dependency, currently in remission/questionable history of obstructive lung disease The patient does have a longstanding tobacco abuse history and is not currently established with a pulmonary provider. I would recommend that he be continued on his scheduled bronchodilators as ordered. Upon follow-up in the pulmonary medicine clinic, baseline pulmonary function studies can be obtained. Ongoing tobacco cessation was strongly encouraged. 3. Obesity/hypertension/hyperlipidemia Complicates care, management, recovery and prognosis. Continue home medications as indicated. This note was generated with Beezagation software. It may contain incorrect words, spelling, and punctuation that were not noted in checking the note before signing. Code Visit Inpatient E&M: 65273 Init Hosp L3
[2019-05-05] MEDS: Budesonide Respules 0.5 MG/2 ML AMPUL.NEB. INHALATION (06:57)
[2019-05-05] MEDS: Albuterol 2.5 MG/3 ML VIAL.NEB. INHALATION ×2 (06:58→14:13)
--- NOTE | 2019-05-05 07:31 | ECHOCS_ITS ---
Reason For Study: Emboli Procedure This was a 2D Doppler, Color Flow transthoracic echocardiogram. The study was technically difficult. Contrast injection was performed. Exam performed portable in ICU/CCU. Left Ventricle Normal LV size. Moderate concentric left ventricular hypertrophy. Left ventricular systolic function is normal. The estimated ejection fraction is 65 %. Stage 1 diastolic dysfunction. No regional wall motion abnormalities noted. Right Ventricle Normal RV size. Normal systolic function. Atria The left atrium is mildly enlarged. Normal right atrium. Mitral Valve Normal mitral valve. Tricuspid Valve Normal tricuspid valve. Aortic Valve Normal aortic valve. Pulmonic Valve Normal pulmonic valve. Great Vessels Normal aortic root. The pulmonary artery is normal size. Normal inferior vena cava. Pericardium/Pleural No pericardial effusion. Medication Diluted definity 2.5ml given slow IV push to enhance endocardial definition. MMode/2D Measurements & Calculations LVIDd: 4.9 cm IVSd: 1.4 cm LA dimension: 4.0 cm LVIDs: 2.7 cm LVPWd: 1.3 cm RVDd: 3.8 cm FS: 45.1 % LAV(MOD-bp): 71.6 ml LA A4 area: 24.7 cm2 RA A4 area: 18.1 cm2 LAV(MOD-bp) Indexed: 27.1 ml/m2 LAV(MOD-sp2): 55.2 ml LAV(MOD-sp4): 77.5 ml Time Measurements MV dec time: 0.22 sec Doppler Measurements & Calculations MV E max travis: 75.4 cm/sec Lat Peak E' Travis: 9.7 cm/sec Med Peak E' Travis: 10.5 cm/sec MV A max travis: 84.7 cm/sec E/E' lat: 7.7 E/E' med: 7.2 MV E/A: 0.89 MV V2 max: 105.7 cm/sec MV P1/2t max travis: 104.9 cm/sec Ao V2 max: 164.0 cm/sec MV max P.5 mmHg MV P1/2t: 61.0 msec Ao max P.8 mmHg MV V2 mean: 60.0 cm/sec MV dec slope: 503.7 cm/sec2 MV mean P.7 mmHg MV V2 VTI: 23.1 cm MVA(P1/2t): 3.6 cm2 LV V1 max: 135.3 cm/sec PA V2 max: 142.5 cm/sec LV V1 max P.3 mmHg Interpretation Summary Normal LV size. Left ventricular systolic function is normal. The estimated ejection fraction is 65 %. Moderate concentric left ventricular hypertrophy. Stage 1 diastolic dysfunction. Contrast injection was performed. Ordering Physician: Leonel Carolina Referring Physician: Bulmaro Curtis Chi Performed By: Juan C England RCS
[2019-05-05 09:29] LABS: Partial Thromboplast Time 40.1 Seconds (24.1-36.2)
--- NOTE | 2019-05-05 09:46 | CASEMGMT ---
RN CM Assessment Note Presentation: Enoch LEONE Intro role of CM and purpose of RN CM assessment to patient in room. Demographics, PCP and Pharmacy verified. PCP: Dr. Curtis Specialists: Dr. Carolina [facility] Insurance: [facility] Prescription Benefit: [employer], [facility] Part D Plan. Call to [facility] to get pt's Drug Coverage information. Called to [facility]- this has and pt now has [employer]. Called to [facility] ([phone] and they put call through to [facility] rep). -Per [facility] rep- pt has $437 deductible which needs to be met prior to prescription being covered with $40 copay for either Eliquis or Xarelto. Discusssed with pt. He is aware, though is concerned with expense. 30 day free trial card can be used for first month supply. -Updated card information given to pharmacist @ [facility] also. Pt states he has been on Xarelto before and tolerated well. Xarelto and Eliquis saving card on front of chart to give to pt when medication is ordered. Dr. Carolina updated on above. BIN: [id number] PCN: [id number] ID: [id number] GRP: [id number] LNOK: , Meena Bee Living Arrangements: Lives with in one story home. 3 steps into home. Pt states he is independent, does not use ambulatory DME. Pt independent, denies care needs. Transportation: drives DME: Cpap, denies using ambulatory DME. Has walker, cane at home. HHC/SNF: none Patient DC goals: Home DC PLAN: Home on anticoagulation. Savings cards on front of chart to be given when medication is ordered. Elver DUNCANN RN ACM
[2019-05-05] MEDS: hydroCHLOROthiazide 12.5mg 12.5 MG PO (10:53)
[2019-05-05] MEDS: Losartan Potassium 100 MG Tablet PO (10:53)
[2019-05-05] MEDS: Rivaroxaban 15 MG Tablet PO (10:53)
--- NOTE | 2019-05-05 14:23 | DCINST_ITS ---
You will use the following diet at home:: No restrictions Your food should be the consistency of: Regular Your liquids should be the consistency of: Regular/Thin Discharge Activity: Return to Normal Activity Weight Bearing Status: Full weight bearing Allergies/Adverse Reactions: Allergies Sulfa (Sulfonamide Antibiotics) Allergy (Verified 05/04/19 17:43) Rash Medications to take at Discharge Albuterol Sulfate [Ventolin Hfa] 2 puff IH BID 05/04/19 Atorvastatin Calcium 40 mg PO QHS 05/04/19 Budesonide/Formoterol 160/4.5 [Symbicort 160/4.5 Mcg Inhaler (SP)] 2 puff INHALATION BID 05/04/19 Cholecalciferol (VIT D3) [Vitamin D3] 1,000 unit PO DAILY 05/04/19 Losartan/Hydrochlorothiazide [Losartan-Hctz 100-12.5 mg Tab] 1 tab PO DAILY 05/04/19 Rivaroxaban [Xarelto] 15 mg PO BIDCM #41 tab 05/05/19 The following prescriptions were given: Rivaroxaban [Xarelto] 15 mg PO BIDCM #41 tab Transmission Status: Pending to [facility] Primary Care Physician: Bulmaro Curtis Chi, MD [Primary Care Provider] - Please follow up with your Primary Care Physician in: in 2-3 weeks Test Results: Test results from this visit will be discussed in further detail at your follow- up appointment, if applicable. Please Follow Up With: Leonel Carolina DO When: in 2 weeks
--- NOTE | 2019-05-05 14:48 | CASEMGMT ---
[facility]LER CM Note- [facility]- Xarelto prescription is no cost with savings card. [facility] will bring to pt's room. Elver DUNCANN RN ACM
--- NOTE | 2019-05-05 16:22 | CHAPLAIN ---
Type of Pastoral Visit _x__ Initial Visit ___ Follow-up Visit ___ On-call Visit ___ General Patient Visit ___ Spiritual Assessment ___ Family Conference ___ Bereavement ___ Rapid Response ___ Code Blue ___ Other (describe below) Pastoral Care Referral From _x__ Patient ___ Family ___ Nurse ___ Physician ___ Sales Development Representative ___ Yield Improvement Engineer ___ Other (describe below) Sacrament/Intervention _x__ Active listening ___ Anointing ___ Jainism ___ Bereavement ___ Communion ___ Melina exploration ___ ___ Life review _x__ Prayer ___ Reconciliation ___ Sacrament of Sick _x__ Supportive presence ___ Wedding ___ Other (describe below) Pastoral Comments
--- NOTE | 2019-05-07 18:47 | PCM.DC.SUM ---
Discharge Date and Diagnosis Date of Admission: 05/04/19 Date of Discharge: 05/05/19 - Primary Discharge Diagnosis #1 saddle pulmonary embolus #2 hypoxia secondary to saddle pulmonary embolism #3 essential hypertension #4 hyperglycemia-etiology unclear Hospital Course and Treatment Operations: None Procedures: None Summary of Care Provided: The patient is a 68 year old M who was seen in the emergency room at [facility] after being sent there by his primary care physician after an outpatient CTA of the chest showed a saddle embolus. Patient was placed on IV heparin in the emergency room and he was admitted to ICU. Patient required oxygen via nasal cannula at 3 to 4 L during his hospitalization. On 05/05/2019, patient was seen and examined by critical care and his oxygen was weaned off. Patient appeared to be stable for discharge home on oral anticoagulants. On 05/05/2019, patient was seen and examined: On examination he appeared in good health and spirits. Vital signs as documented. Skin warm and dry and without overt rashes. Neck without JVD. Lungs clear. Heart exam notable for regular rhythm, normal sounds and absence of murmurs, rubs or gallops. Abdomen unremarkable and without evidence of organomegaly, masses, or abdominal aortic enlargement. Extremities nonedematous. Neuro: Cranial nerves II through XII are grossly intact, no focal motor deficits were noted, sensation to light touch and pinprick intact. Psych: Patient is alert and oriented x3, he does not appear anxious or depressed On 05/05/2019, patient was discharged home in stable condition - Physical Exam Vitals/I&O's: Vital Signs Temp Pulse Resp BP Pulse Ox 97.6 F L 75 24 H 128/68 H 93 05/05/19 16:30 05/05/19 16:30 05/05/19 16:30 05/05/19 16:30 05/05/19 16:30 Oxygen Flow Rate (L/min) 3 Oxygen Delivery Method Room Air Weight: 140.9 kg Body Mass Index (BMI) 38.7 Intake and Output for Last 24 Hours 05/05/19 05/06/19 05/07/19 23:59 23:59 23:59 Intake Total 1228.53 / 1228.53 Output Total 875 / 875 Balance 353.53 / 353.53 Discharge Activity: Return to Normal Activity Weight Bearing Status: Full weight bearing Home Medications: Medications to take at Discharge Albuterol Sulfate [Ventolin Hfa] 2 puff IH BID 05/04/19 Atorvastatin Calcium 40 mg PO QHS 05/04/19 Budesonide/Formoterol 160/4.5 [Symbicort 160/4.5 Mcg Inhaler (SP)] 2 puff INHALATION BID 05/04/19 Cholecalciferol (VIT D3) [Vitamin D3] 1,000 unit PO DAILY 05/04/19 Losartan/Hydrochlorothiazide [Losartan-Hctz 100-12.5 mg Tab] 1 tab PO DAILY 05/04/19 Rivaroxaban [Xarelto] 15 mg PO BIDCM #41 tab 05/05/19 Following Prescrptions Were Given to Patient: Rivaroxaban [Xarelto] 15 mg PO BIDCM #41 tab Transmission Status: Sent to [facility] Primary Care Physician: Bulmaro Curtis Chi, MD [Primary Care Provider] - Please follow up with your Primary Care Physician in: in 2-3 weeks Please Follow Up With: Leonel Carolina DO When: in 2 weeks Disposition: Home Minutes spent on discharge:: 32 Patient Condition:: Stable Medical Necessity - Tobacco Use Smoking Status: Former smoker Tobacco Use: Cigarettes - quit ~ 1 month ago Meaningful Use Info Meaningful Use Diagnoses (Choose all that apply): VTE - VTE Anticoag overlap given w/in hospital stay or rx'd at ak?: No Pt receive overlap for 5 days?: No Reason overlap not ordered, prescribed, or given for 5 days: Treatment Not Indicated Code Visit Inpatient E&M: 25590 Disch Hosp
== END 2019-05-05 16:35 | disposition home or self-care (01) | DRG 176 ==
LOC: ED 18:28 → PCU 19:30 → ICU 21:26
PROVIDERS: Admitting Provider Student in an Organized Health Care Education/Training Program; Emergency Provider Emergency Medicine; PCP Family Medicine Geriatric Medicine; Visit Provider Internal Medicine
DX: I26.92 Saddle embolus of pulmonary artery without acute cor pulmonale (principal); R09.02 Hypoxemia; I10 Essential (primary) hypertension; E78.5 Hyperlipidemia, unspecified; R73.9 Hyperglycemia, unspecified; R60.0 Localized edema; E66.9 Obesity, unspecified; Z68.38 Body mass index [BMI] 38.0-38.9, adult; Z79.51 Long term (current) use of inhaled steroids; Z79.899 Other long term (current) drug therapy; Z86.718 Personal history of other venous thrombosis and embolism; Z87.891 Personal history of nicotine dependence
CPT/HCPCS: 36415; 71046; 71275; 80048; 82550; 83874; 83880; 84484; 85025; 85379; 85610; 85730; 93005; 93306; 94640; 99251; 99284; Q9957; Q9967; A4216; C8929; G0463

== ENCOUNTER → 2019-05-07 10:33 | Outpatient (CLI) | payer MEDICARE, OTHER, SELFPAY ==
[2019-05-04 19:51] VITALS: BMI 38.7
--- NOTE | 2019-05-07 10:45 | VDLE_ITS ---
Reason For Study: Elevated D-dimer RIGHT LEFT GSV is normal. GSV is normal. CFV is partially compressible with mobile CFV is compressible, spontaneous, phasic, thrombus note. competent, and demonstrates normal Acute deep vein thrombosis is noted in the augmentation. right CFV, FV, PopV, T/P Trunk, GastrocV, FV is compressible, spontaneous, phasic, PTV, PeroV. competent and demonstrates normal Procedure augmentation. Exam performed in department. POP V is compressible, spontaneous, phasic, A preliminary report was called and/or faxed competent and demonstrates normal to Massimo Prasad sent up to office for augmentation. appointment. T/P Trunk is compressible. PTV is compressible. LT PerV is compressible. Interpretation Summary Acute deep vein thrombosis is noted in the right common femoral vein. Acute deep vein thrombosis is noted in the right femoral vein. Acute deep vein thrombosis is noted in the right popliteal vein. Acute deep vein thrombosis is noted in the right tibio-peroneal trunk. Acute deep vein thrombosis is noted in the right posterior tibial vein. Acute deep vein thrombosis is noted in the right peroneal vein. Acute deep vein thrombosis is noted in the right gastrocnemius vein. Deep veins of the left lower extremity are patent and compressible segmentally. There is no evidence of left lower extremity deep vein thrombosis. Valvular competence appears intact within the proximal deep venous system on the left . The great saphenous veins appear bilaterally patent and compressible segmentally. Ordering Physician: Bulmaro Curtis Referring Physician: Bulmaro Curtis Chi Performed By: Bev Doshi RVT
== END ==
PROVIDERS: PCP Family Medicine Geriatric Medicine; Referring Provider Family Medicine Geriatric Medicine; Visit Provider Family Medicine Geriatric Medicine
DX: I26.99 Other pulmonary embolism without acute cor pulmonale (principal); R79.9 Abnormal finding of blood chemistry, unspecified
CPT/HCPCS: 93970

== ENCOUNTER → 2019-06-05 13:51 | Outpatient (CLI) | payer MEDICARE, OTHER, SELFPAY ==
[2019-05-20 07:53] VITALS: BMI 38.7
== END ==
PROVIDERS: PCP Family Medicine Geriatric Medicine; Referring Provider Nurse Practitioner Acute Care; Visit Provider Nurse Practitioner Acute Care
DX: I26.92 Saddle embolus of pulmonary artery without acute cor pulmonale (principal)

== ENCOUNTER → 2019-06-16 10:44 | Outpatient (CLI) | payer MEDICARE, OTHER, SELFPAY ==
[2019-05-20 07:53] VITALS: BMI 38.7
[2019-06-16 12:48] LABS: Absolute Lymphocyte Count 2.81 X10^3/uL (0.83-4.51); Absolute Neutrophil Count 7.6 X10^3/uL (2.0-7.7); Basophil# 0.06 X10^3/uL; Basophil% 0.5 % (0-1); Eosinophil# 0.22 X10^3/uL; Eosinophils% 1.8 % (0-5); Hematocrit 49.5 % (40-54); Hemoglobin 15.8 g/dL (13.0-16.5); Lymphocyte # 2.81 X10^3/ul (4.0); Lymphocyte % 23.1 % (19-41); Mean Corp Hgb Conc 31.9 g/dL (32-36); Mean Platelet Vol. 11.9 fl (6.2-12.0); Monocyte# 1.27 X10^3/uL; Monocyte% 10.5 % (0-10); NRBC Flagged by Analyzer 0 % (0-5); Neutrophil # 7.62 X10^3/uL (2.7-7.7); Neutrophil % 62.8 % (47-70); Platelet Count 183 K/mm3 (150-450); RBC Distribution Width CV 13.9 % (11.6-14.6); Red Blood Count 5.44 M/mm3 (4.6-6.2); White Blood Count 12.1 K/mm3 (4.4-11.0)
[2019-06-16 13:01] LABS: Vitamin D,25 Hydroxy 30.3 ng/mL
[2019-06-16 13:09] LABS: AST(SGOT) 26 U/L (15-37); Alanine Aminotransfer ALT/SGPT 52 U/L (16-61); Albumin, Serum 3.8 g/dL (3.2-5.0); Alkaline Phosphatase 122 U/L (45-117); Anion Gap 8 (5-15); BUN 22 mg/dL (7-18); BUN/Creat Ratio 18.8 RATIO (10-20); Calcium,Total 9.4 mg/dL (8.5-10.1); Chloride 100 mmol/L (98-107); Creatinine, Serum 1.17 mg/dL (0.70-1.30); EST Glomerular Filtration Rate 66 mL/min (>60); Est Glom Filt Rate - Afr Amer 80 mL/min (>60); Glucose 141 mg/dL (74-106); Potassium 4.3 mmol/L (3.5-5.1); Protein, Total 7.8 g/dL (6.4-8.2); Sodium Level 138 mmol/L (136-145); Thyroid Stim Hormone (TSH) 2.29 uIU/mL (0.358-3.74)
== END ==
PROVIDERS: PCP Family Medicine Geriatric Medicine; Visit Provider Family Medicine Geriatric Medicine
DX: E23.6 Other disorders of pituitary gland (principal); E55.9 Vitamin D deficiency, unspecified; I10 Essential (primary) hypertension; J44.9 Chronic obstructive pulmonary disease, unspecified
CPT/HCPCS: 36415; 80053; 82306; 84403; 84443; 85025

== ENCOUNTER → 2019-06-18 10:47 | Outpatient (CLI) | payer MEDICARE, OTHER, SELFPAY ==
[2019-05-20 07:53] VITALS: BMI 38.7
--- NOTE | 2019-06-19 11:19 | PFT ---
INTRODUCTION: The patient is a 68-year-old male that presents for pulmonary function studies secondary to a diagnosis of shortness of breath. Respiratory therapy reports good patient effort. Bronchodilators were used during testing. INTERPRETATION: Forced expiration spirometry demonstrates the presence of a severe large airways obstructive ventilatory defect. There was a significant response to aerosolized bronchodilators noted, based upon changes in both FEV1 and FVC. Spirograms are of fair quality and do not plateau indicating slow emptying of the lungs. Body plethysmography was performed and reveals a decreased TLC to 5.78 L, 75% of predicted, indicative of a mild restrictive ventilatory impairment. The remainder of the lung volumes are symmetrically reduced. Diffusing capacity by single breath CO is mildly reduced at 73% of predicted. IMPRESSION: Partially reversible severe mixed ventilatory defect with mild reduction in diffusing capacity.
== END ==
PROVIDERS: PCP Family Medicine Geriatric Medicine; Referring Provider Nurse Practitioner Acute Care; Visit Provider Nurse Practitioner Acute Care
DX: R06.02 Shortness of breath (principal)
CPT/HCPCS: 94060; 94726; 94729

== ENCOUNTER → 2019-06-19 08:51 | Outpatient (CLI) | payer MEDICARE, OTHER, SELFPAY ==
[2019-05-20 07:53] VITALS: BMI 38.7
[2019-06-19 09:00] VITALS: PULSE 105; PULSE 108; PULSE 78; PULSE 81; PULSE 94; PULSE 96; PULSE 98; O2SAT 91; O2SAT 92; O2SAT 93
--- NOTE | 2019-06-19 13:40 | PCM.PSN.6M ---
PSN 6 Minute Walk Test - 6 Minute Walk Test 6 Minute Walk Test: 6 Minute Walk Test PSN:6-Minute Walk Test Start: 06/19/19 09:29 Freq: Status: Active Protocol: RESP.6MINW Document 06/19/19 09:00 NICANORJanet (Rec: 06/19/19 09:31 JLA [id number]) 6 Minute Walk Test Date Performed 06/19/19 Time Performed 09:00 Height 6 ft 3 in Weight: 293 lb Weight in Pounds 293.[address]: Dianna Knight Assistive device used: None Pre-test Oxygen Delivery Method Room Air Pulse Ox (%) 93 Pulse Rate (60-100 beats/min) 78 Dyspnea Laure Scale (0-10) 0 Exertion Laure Scale (6-20) 6 1st minute Oxygen Delivery Method Room Air Pulse Ox (%) 91 Pulse Rate (60-100 beats/min) 96 2nd minute Oxygen Delivery Method Room Air Pulse Ox (%) 92 Pulse Rate (60-100 beats/min) 105 H 3rd minute Oxygen Delivery Method Room Air Pulse Ox (%) 92 Pulse Rate (60-100 beats/min) 94 4th minute Oxygen Delivery Method Room Air Pulse Ox (%) 92 Pulse Rate (60-100 beats/min) 98 5th minute Oxygen Delivery Method Room Air Pulse Ox (%) 93 Pulse Rate (60-100 beats/min) 98 6th minute Oxygen Delivery Method Room Air Pulse Ox (%) 92 Pulse Rate (60-100 beats/min) 108 H Dyspnea Laure Scale (0-10) 0 Exertion Laure Scale (6-20) 12 Post-test Oxygen Delivery Method Room Air Pulse Ox (%) 93 Pulse Rate (60-100 beats/min) 81 Full Laps Walked 19 Partial Lap, Number of Tiles Walked 0 Total Distance Walked (ft) 1121 - Interpretation Interpretation: The patient ambulated 1121 feet over the course of 6 minutes beginning on room air without assistive devices or breaks. Pretesting oxygen saturation was noted to be 93% on room air. With ambulation, the pilar oxygen saturation was 91%. There was no significant exertional oxygen desaturation. - Recommendations Recommendations: There is no indication for the use of supplemental oxygen at this time.
== END ==
PROVIDERS: PCP Family Medicine Geriatric Medicine; Referring Provider Nurse Practitioner Acute Care; Visit Provider Nurse Practitioner Acute Care
DX: R06.02 Shortness of breath (principal)
CPT/HCPCS: 94618

== ENCOUNTER → 2019-12-21 09:58 | Outpatient (CLI) | payer MEDICARE, OTHER, SELFPAY ==
[2019-08-20 06:48] VITALS: BMI 37.6
[2019-12-21 12:29] LABS: Absolute Lymphocyte Count 3.07 X10^3/uL (0.83-4.51); Absolute Neutrophil Count 6.9 X10^3/uL (2.0-7.7); Basophil% 0.8 % (0-1); Eosinophil# 0.32 X10^3/uL; Eosinophils% 2.7 % (0-5); Hemoglobin 15.6 g/dL (13.0-16.5); Lymphocyte # 3.07 X10^3/ul (4.0); Lymphocyte % 25.6 % (19-41); Mean Corp Hgb Conc 31.8 g/dL (32-36); Mean Corpuscular Hgb 29.4 pg (27.0-32.0); Mean Corpuscular Volume 92.5 fL (80-94); Mean Platelet Vol. 12.4 fl (6.2-12.0); Monocyte# 1.39 X10^3/uL; Monocyte% 11.6 % (0-10); NRBC Flagged by Analyzer 0 % (0-5); Neutrophil # 6.91 X10^3/uL (2.7-7.7); Neutrophil % 57.8 % (47-70); Platelet Count 193 K/mm3 (150-450); RBC Distribution Width CV 13.6 % (11.6-14.6); RBC Distribution Width SD 46.7 fl (35.1-43.9)
[2019-12-21 12:44] LABS: Vitamin D,25 Hydroxy 42.8 ng/mL
[2019-12-21 13:16] LABS: AST(SGOT) 25 U/L (15-37); Alanine Aminotransfer ALT/SGPT 48 U/L (16-61); Albumin, Serum 3.8 g/dL (3.2-5.0); Alkaline Phosphatase 123 U/L (45-117); Anion Gap 7 (5-15); BUN 33 mg/dL (7-18); BUN/Creat Ratio 23.4 RATIO (10-20); Calcium,Total 9.3 mg/dL (8.5-10.1); Chloride 105 mmol/L (98-107); Creatinine, Serum 1.41 mg/dL (0.70-1.30); EST Glomerular Filtration Rate 53 mL/min (>60); Est Glom Filt Rate - Afr Amer 64 mL/min (>60); Globulin 3.9 g/dL (2.2-4.2); Glucose 153 mg/dL (74-106); Potassium 3.9 mmol/L (3.5-5.1); Protein, Total 7.7 g/dL (6.4-8.2); Sodium Level 138 mmol/L (136-145); Thyroid Stim Hormone (TSH) 2.42 uIU/mL (0.358-3.74)
== END ==
PROVIDERS: PCP Family Medicine Geriatric Medicine; Visit Provider Family Medicine Geriatric Medicine
DX: E11.9 Type 2 diabetes mellitus without complications (principal); I10 Essential (primary) hypertension; E55.9 Vitamin D deficiency, unspecified
CPT/HCPCS: 36415; 80053; 82306; 84443; 85025

== ENCOUNTER → 2020-05-02 14:26 | Outpatient (CLI) | payer MEDICARE, OTHER, SELFPAY ==
[2020-02-17 08:04] VITALS: BMI 39.2
--- NOTE | 2020-05-02 14:27 | CT_ITS ---
STUDY: LOW DOSE CT LUNG CANCER SCREENING REASON FOR EXAM: Male, 69 years old. TOBACCO USE, 1PPD X 53 YRS. QUIT 1 YR AGO RADIATION DOSAGE (If Supplied By Facility): CTDIvol = ( 4.02 ) mGy, DLP = ( 141.95 ) mGycm TECHNIQUE: No contrast was administered. Low dose technique was utilized (average mAS-38 and kVp 120). 1.25 mm axial source images with a slice interval of 1.25-mm were reconstructed in lung windows. 2.5 mm axial source images with a slice interval of 2.5-mm were reconstructed in lung windows. 5.0 mm axial source images with a slice interval of 5.0-mm were reconstructed in soft tissue windows. Nodule measured using lung windows on PACS and/or independent workstation with automated measurement of minimum and maximum diameter. Nodule measurement reported as average diameter rounded to the nearest whole number. Growth is defined as an increase ins size of greater than 1.5 mm. COMPARISON: Comparison is made with prior examination dated 12/22/2018. NODULES: No suspicious nodules are seen. Emphysema: Stable emphysematous changes in the upper lobes with stable bullous formation in the medial aspect of the left upper lobe. 1.9 cm x 1.7 cm irregular linear density in the lateral aspect of the lingular segment of the left upper lobe posteriorly. This abuts the left pericardial fat. This most likely represents scarring. Mild increased markings at the lung bases suggestive of scarring. Aorta: Mild atherosclerotic plaque at the level of the aortic arch. Coronary arteries: Coronary artery calcification. Heart: Unremarkable Pulmonary artery: Unremarkable Mediastinal nodes: Small mediastinal lymph nodes. CT/Low Dose CT Lung Screening IMPRESSION: Lung-RADS category 2 - Continue annual screening with LDCT in 12 months. IMPORTANT NOTES FOR USE: ACR Lung-RADS Version 1.0 Assessment Categories Release Date: July 20, 2013 Category: Coded 0-4 bases on nodule(s) with highest degree of suspicion. Negative screen is defined as categories 1 and 2; a positive screen is defined as categories 3 and 4. Category 3 and 4A nodules that are unchanged on interval CT should be coded as category 2, and individuals returned to screening in 12 months. Category 4X: Category 3 or 4 nodules with additional imaging findings that increase the suspicion of lung cancer, such as spiculation, GGN that doubles in size in 1 year, enlarged lymph notes, etc. Category Modifiers: S (significant finding unrelated to lung cancer) and C (prior history of treated lung cancer) may be added to the 0-4 Lung-RADS Electronically Signed: Morales Ramírez MD at 15:26 EST , Service support ,
== END ==
PROVIDERS: PCP Family Medicine Geriatric Medicine; Referring Provider Internal Medicine Critical Care Medicine; Visit Provider Internal Medicine Critical Care Medicine
DX: F17.211 Nicotine dependence, cigarettes, in remission (principal)
CPT/HCPCS: 71271

== ENCOUNTER → 2020-06-20 10:15 | Outpatient (CLI) | payer MEDICARE, OTHER, SELFPAY ==
[2020-02-17 08:04] VITALS: BMI 39.2
[2020-06-20 12:32] LABS: Absolute Lymphocyte Count 1.94 X10^3/uL (0.83-4.51); Absolute Neutrophil Count 6.1 X10^3/uL (2.0-7.7); Basophil% 1.1 % (0-1); Eosinophils% 2.1 % (0-5); Hematocrit 48.9 % (40-54); Hemoglobin 15.7 g/dL (13.0-16.5); Lymphocyte # 1.94 X10^3/ul (4.0); Lymphocyte % 20.7 % (19-41); Mean Corp Hgb Conc 32.1 g/dL (32-36); Mean Corpuscular Hgb 29.5 pg (27.0-32.0); Mean Corpuscular Volume 91.9 fL (80-94); Mean Platelet Vol. 12.8 fl (6.2-12.0); Monocyte# 0.92 X10^3/uL; Monocyte% 9.8 % (0-10); NRBC Flagged by Analyzer 0 % (0-5); Neutrophil # 6.09 X10^3/uL (2.7-7.7); Platelet Count 170 K/mm3 (150-450); RBC Distribution Width CV 13.5 % (11.6-14.6); RBC Distribution Width SD 45.4 fl (35.1-43.9); Red Blood Count 5.32 M/mm3 (4.6-6.2); White Blood Count 9.4 K/mm3 (4.4-11.0)
[2020-06-20 12:45] LABS: Vitamin D,25 Hydroxy 40.2 ng/mL
[2020-06-20 13:00] LABS: AST(SGOT) 29 U/L (15-37); Alanine Aminotransfer ALT/SGPT 54 U/L (16-61); Albumin, Serum 3.8 g/dL (3.2-5.0); Alkaline Phosphatase 124 U/L (45-117); Anion Gap 7 (5-15); BUN 21 mg/dL (7-18); BUN/Creat Ratio 15.9 RATIO (10-20); Calcium,Total 9.6 mg/dL (8.5-10.1); Chloride 103 mmol/L (98-107); Creatinine, Serum 1.32 mg/dL (0.70-1.30); EST Glomerular Filtration Rate 57 mL/min (>60); Est Glom Filt Rate - Afr Amer 69 mL/min (>60); Glucose 216 mg/dL (74-106); Potassium 4.3 mmol/L (3.5-5.1); Protein, Total 7.8 g/dL (6.4-8.2); Sodium Level 136 mmol/L (136-145); Thyroid Stim Hormone (TSH) 1.47 uIU/mL (0.358-3.74)
== END ==
PROVIDERS: PCP Family Medicine Geriatric Medicine; Visit Provider Family Medicine Geriatric Medicine
DX: E11.9 Type 2 diabetes mellitus without complications (principal); E23.6 Other disorders of pituitary gland; E55.9 Vitamin D deficiency, unspecified; I10 Essential (primary) hypertension
CPT/HCPCS: 36415; 80053; 82306; 84403; 84443; 85025

== ENCOUNTER → 2020-08-23 09:34 | Outpatient (CLI) | payer MEDICARE, OTHER, SELFPAY ==
[2020-08-17 06:13] VITALS: BMI 38.5
--- NOTE | 2020-08-23 09:42 | PCM.PR.TP ---
Tobacco - Initial Assessment Tobacco - 30-Day Assessment Tobacco - 60-Day Assessment Tobacco - 90-Day Assessment Tobacco - Final Assessment Nutrition Survey
--- NOTE | 2020-08-23 09:44 | PR.ITP_ITS ---
General Information - General Information Admitting Diagnosis: COPD GOLD CLASSIFICATION III: Severe Gold Classification:: GOLD 3: Severe - PFT FEV1:: 1.83 - 45% PREDICTED FVC:: 3.53 - 65% PREDICTED FEV1/FVC%:: 52 - 70% pREDICTED - Education/Goals Barriers to Learning: Vision Impairment Individual Counseling: Initial Assessment: Dyspnea control techniques at rest, activity, and ADLs, Inhaled and respiratory medications, ADL management and pacing, Home exercise plan & guidelines Patient Goals: Breathe better: Initial Assessment, Increase endurance/stamina: Initial Assessment, Return to recreation/hobby: Initial Assessment, Improve diet and nutrition: Initial Assessment, Symptom management: Initial Assessment, I mprove weight: Initial Assessment Exercise - Initial Assessment - Visit Date of Eval: 08/23/20 - Problem/Goals Problems: Deconditioning, No regular exercise, Knowledge deficit exercise guidelines, Knowledge deficit exercise safety Goals:: WI: 2-3/wk - Physician Prescribed Exercise Modalities: Treadmill, Airdyne, NuStep Frequency (days/week): 3 Duration (Minutes):: 30-45 DANIAL Intensity: 60-80% of age predicted maximum heart rate reserve METs - Progression: 0.5-1.0 MET, RPE 11-14 WEEK: 3.0 Target Heart Rate:: 99-129 - Plan Plan and Plan to Review:: Benefits of exercise, Core components of exercise, How to measure dyspnea level, How to monitor dyspnea level, Exercise intensity, Exercise safety guideline, Home exercise guidelines, Laure: 3-4/11-13 Disease Management - Initial - Problems/Goals-Hypoxemia Hypoxemia Goals:: Hypoxemia managed - Problems/Goals-Medications Medication Goals: Adherence to prescribed medications, Correct technique/timing & care of MDI, DPI, nebulizer, and spacer. - Problems/Goals-Bronchial Hygiene Bronchial Hygiene Problems:: Respiratory infection Prevention/Management Bronchial Hygiene Goals:: Pt demonstrates effective cough, effective secretion clearance., Pt describes signs and symptoms of infection. - Initial Assessment SpO2:: 93 FiO2:: 21 Does pt report taking home meds as prescribed?: Yes Medications: Yes MDI, Yes NEB Patient Reports:: No cough - Plans Hypoxemia Plan:: Monitor SpO2 rest & with exercise, Recommend appropriate FiO2 to Pt/MD Reviewed prescribed medications:: Purpose, Schedule, Side effects, Importance of compliance Instruct correct technique/timing & care:: MDI, DPI, Nebulizer, Return demo use of inhaler Bronchial Hygiene Plan: Controlled cough, Vibratory PEP device, Hydration, Hand hygiene, Signs/symptoms to report:, Influenza/Pneumovax vaccines Psychosocial - Initial Assess - Problems/Goals Problems: Impaired Q.O.L. - Psychosocial Test Depression:: Impaired QOL Tests Completed: Mood Scale Test Referred to MD for counseling:: No - Plan Reviewed screening results: Yes Instructions given regarding:: Benefits of exercise, Relaxation techniques, Training in coping strategies Tobacco - Initial Assessment - Stage of Change Stages of Change:: Action - Learning Barriers Learning Barriers: Vision, Ready to Learn - Family Support Do you have family support?: Yes - Tobacco Use Tobacco Use: Non-smoker - Education Gave Education Materials For:: Pulmonary Disease, Risk Factors, Breathing Techniques, Medical Compliance, Pulmonary A&P, Exacerbation Signs & Symptoms, Stress & Relaxation Tobacco - 30-Day Assessment Tobacco - 60-Day Assessment Tobacco - 90-Day Assessment Tobacco - Final Assessment Nutrition/Wt Mgmt - Initial - Problems/Goals Problems: Overweight - Weight Management Knowledge Deficit Management of:: Overweight, Role of exercise in weight control Admit Height:: 6 ft 3 in Admit Weight:: 308 lb Admit BMI:: 38.5 - Diabetes Diabetes:: No - Intervention Referral to dietitian:: Yes Referral to Diabetic Clinic:: No Will attend diet classes:: Yes - Plan Nutrition Plan: Yes Review BMI or WC & identify target wt & strategies for wt control, Yes Nutrition education class:, Yes Weight control education class:, Yes Education re: Need for ongoing weight monitoring Patient Health Questionnaire Initial Assessment 1. Little interest or pleasure in doing things: Not at all 2. Feeling down, depressed, or hopeless: Not at all 3. Trouble falling or staying asleep, or sleeping too much: More than half the days 4. Feeling tired or having little energy: Several days 5. Poor appetite or overeating: More than half the days 6. Feeling bad about yourself -- or that you are a failure or have let yourself or your family down: Not at all 7. Trouble concentrating on things, such as reading the newspaper or watching television: Not at all 8. Moving or speaking so slowly that other people could have noticed. Or the opposite - being so fidgety or restless that you have been moving around a lot more than usual: Not at all 9. Thoughts that you would be better off , or of hurting yourself in some way: Not at all How difficult have these problems made it for you to do your work, take care of things at home, or get along with other people?: Not difficult at all Total Score: 5 COPD Knowledge Test Initial COPD is a lung disease that:: Makes it hard to breathe & gets worse over time In the [place] the term COPD describes 2 main lung conditions:: Emphysema & chronic bronchitis The most common lung irritant that causes COPD is:: Cigarette smoke Common signs and symptoms of COPD include:: An ongoing cough/cough that produces a large amount of mucus, & SOB If you have COPD, what steps can you take?: Quit smoking & avoid secondhand smoke Swelling of the ankles is common in COPD:: False Fatigue [tiredness] is common in COPD:: True Wheezing is common in COPD:: True Crushing chest pain is common in COPD:: False Rapid weight loss is common in COPD:: False Breathlessness is a normal response to exercise: False Exercise should be avoided if it makes you short of breath: True All bronchodilators act within 10 minutes: True A spacer device increases the medication to the lungs: True Annual flu vaccine is recommended for pts w/lung disease: True COPD Knowledge Test Total Score:: 11 COPD Assessment Test [CAT] - Questions Never cough = 0, Cough all the time = 5: 1 No phlegm = 0, Chest full of phlegm = 5: 2 No chest tightness = 0, Chest very tight = 5: 2 No breathless w/exertion = 0, Very breathless w/exertion = 5: 3 No limitations w/activity = 0, Very limited w/activity = 5: 3 Confident leaving home = 0, Not at all confident = 5: 1 Sleep soundly = 0, Don't sleep soundly = 5: 1 Lots of energy = 0, No energy at all = 5: 1 Total CAT score:: 14 Self-Efficacy Initial Assessment We would like to know how confident you are in doing certain activities. Please select your confidence level for:: Select your confidence level for the following using the scale 1-10 where 1 is not at all confident and 10 is totally confident. Your score is the average of all 6 responses. Fatigue: How confident are you that you can keep the fatigue caused by your disease from interfering with the things you want to do? Select Number: 7 Physical Discomfort or Pain: How confident are you that you can keep the physical discomfort or pain of your disease from interfering with the things you want to do? Select Number: 6 Emotional Distress: How confident are you that you can keep the emotional distress caused by your disease from interfering with the things you want to do? Select Number: 9 Other Symptoms or Health Problems: How confident are you that you can keep other symptoms or health problems from interfering with the things you want to do? Select Number: 6 Different Tasks and Activities: How confident are you that you can do the different tasks and activities needed to manage your health condition so as to reduce your need to see a doctor? Select Number: 8 Medication: How confident are you that you can do things other than just taking medication to reduce how much your illness affects your everyday life? Select Number: 8 Total Score:: 7 Nutrition Survey - Nutrition Survey Initial Have you lost >10 lbs over the past 2 months without trying?: No Are you following a special diet at home for diabetes, low fat, or low salt?: No Are you interested in meeting with a dietitian for help understanding your diet?: Yes Do you eat less than 3 meals a day?: Yes Do you eat fatty meats (banegas, sausage, ribs, etc), fried foods, desserts, large amounts of salad dressings, margarine, butter, or cheese most days?: No Do you have food allergies? [Enter types in comment field]: No Do you eat in restaurants more than 3 times a week?: No Do you season food with salt, seasoning salt, or garlic salt?: No Do you used canned, boxed, frozen meals, or soups, seasoning packets?: Yes Total Score:: 3
--- NOTE | 2020-08-23 09:44 | PCM.PR.HP ---
History of Present Illness Arrival date:: 08/23/20 Arrival time:: 09:45 Date of Referral:: 08/17/20 Date of Evaluation: 08/23/20 Referring Physician: Dr. Leonel Carolina Primary Diagnosis: COPD GOLD Classification III: Severe History of Present Illness: The patient is a [address] Leonel Carolina who presents to pulmonary rehab today for his COPD. THe patient has struggled with taking his daily MDI medications twice daily. He is also scheduled for his 6-MWT today at 12:30 pm. mMRC Breathless Scale: When is the patient short of breath? Y/N Grade: Description of Breathlessness: 0 I only get breathless with strenuous exercise. 1 I get short of breath when hurrying on level ground or walking up a slight hill. 2 On level ground, I walk slower than people of the same age because of breathless, or have to stop for breath when walking at my own pace. 3 I stop for breath after walking 100 yards or after a few minutes on level ground. 4 I am too breathless to leave the house or I am breathless when dressing. Respiratory Problems: Yes: Fatigue, Wheezing, Able to Speak in Full Sentences, Dyspnea with Activity - Secretions Thick:: No Thin:: No Hx of Sleep Apnea: Yes Do you snore loudly (louder than talking or can be heard through closed doors)?: Yes Do you often feel tired/ fatigued/ sleepy during daytime?: Yes - Patient has home CPAP unit at home he wears every night. Has anyone observed you stop breathing during sleep?: No History of Hypertension (for STOP score): Yes STOP Results: Positive Home Medications: Home Medications albuterol sulfate 2 puff IH BID 05/04/19 atorvastatin 40 mg PO QHS 05/04/19 cholecalciferol (vitamin D3) 1,000 unit PO DAILY 05/04/19 losartan-hydrochlorothiazide 1 tab PO DAILY 05/04/19 budesonide-formoterol HFA 160 mcg-4.5 mcg/actuation aerosol inhaler 2 puff INHALATION BID #1 ea 08/20/19 rivaroxaban 15 mg tablet 15 mg PO BIDCM #60 tab 08/20/19 albuterol sulfate 90 mcg/actuation aerosol inhaler 2 puff INHALATION Q4H PRN #1 ea 04/01/20 fluticasone fur. 100 mcg-umeclid 62.5 mcg-vilant 25 mcg inhalat.powder 1 inh INHALATION DAILY #60 ea 08/17/20 Allergies/Adverse Reactions: Allergies Sulfa (Sulfonamide Antibiotics) Allergy (Verified 08/17/20 08:10) Rash Medical Utilization Do you use a peak flow meter at home?: No Do you use a spacer device with your inhalers?: No Number of hospital visits in the last year?: 0 Number of emergency room visits in the last year?: 0 Do you see your physician on a regular schedule?: Yes How often?: 6 months Advanced Directives - Advanced Directives Power of Car Mechanic: Yes - is his POA for Healthcare Decisions. Living Will: Yes Advance Directives Information Provided: No Advance Directives on File: Yes DNR Order?:: No - MOLST See MOLST form: No Past Medical History - Covid-19 Screening Fever: No Unexplained muscle aches: No Current respiratory symptoms: No Upper respiratory infections symptoms: No Gastro-intestinal symptoms: No Zxg-Gpdf-Kxaikx symptoms: No Has tested positive for COVID-19 in last 30 days: Yes Date of testin07/22/20 - Fully vaccinated- Moderena COVID-19 vax Had contact w/person w/symptoms or Covid-19 (+) last 14 days: No Has High Risk Exposures ID'd by Health dept/Inf Control team: No 65 years or older:: Yes Lives in Assisted Living facility:: No Has a chronic lung disease or moderate to severe asthma:: Yes Has a serious heart condition:: No Immunocompromised:: No Severely obese (Body Mass Index of 40 or higher):: Yes Diabetic:: No Medical History: Past Medical History (Last Reviewed 08/17/20 @ 08:11 by Naomy Johnson) Essential hypertension I10 Hyperglycemia R73.9 Hypoxia R09.02 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 Surgical History: Past Surgical History (Last Reviewed 08/17/20 @ 08:11 by Naomy Johnson) Cataracts, both eyes H26.9 H/O parotidectomy Z90.49 Family History: Family History (Last Reviewed 08/17/20 @ 08:11 by Naomy Johnson) Father Heart disease Mother Heart disease Lung disease Grandmother Cancer Grandfather Cancer Other Diabetes - Current/ Previous Services Pulmonary Rehab:: No Social History - Smoking History Smoking Status: Former smoker Years Smokin Hx Smoking Cessation Date: 04/03/19 Hx Tobacco Use: Yes Hx Smoking Exposure: No - Alcohol Use Alcohol Usage: No - Substance Abuse Hx Substance Use: No - Occupation Occupation (List type of work in comments):: Retired - Hobbies, Recreation, Social Activities Hobbies: Other - Drive around [employer] country/shop Recreational Activities: I am able to engage in all my recreational activities Functioning ADL/IADL - Current Ability Current Ability: Independent Self-Care (e.g.,grooming, dressing, & bathing), Independent Ambulation, Independent Transfer, Independent Household tasks (e.g., light meal prep, laundry, shopping) - Pt Functioning Prior to Problem Prior Functioning: Self-Care (e.g.,grooming, dressing, & bathing): Independent, Ambulation: Independent, Transfer: Independent, Household tasks (e.g., light meal prep, laundry, shopping): Independent Social Environment - Status Marital Status: - Current Living Arrangements Living Environment:: Spouse - Children How many children do you have?: 0 Do any of your children live nearby?: No - Safety Do you feel safe in your surroundings?: Yes - Assistance Do you need any assistance at home?: none Review of Systems Review of Systems: Right click = Denies (Slash). Left click = Reports ([place]) Respiratory: Reports: SOB upon Exertion, Appetite, Normal, Dizziness/Lightheadedness - occasionally, Fatigue, Sleep, Normal. Denies: Cough, SOB at Rest, Sputum production, Sexual changes Is Patient Pain Free?: Yes Pain Location: none Pain Level: 0/10 Risk Factor Assessment - Vital Signs Temperature: 97.4 F Pulse Rate: 73 Pulse Rhythm: Regular Pulse Ox: 93 - room air Blood Pressure: 128/68 - Diabetes Nutrition Referral for Diabetes: No - Obesity Height: 6 ft 3 in Weight:: 308 lb Weight in Pounds: 308.0 lbs Weight Source: Standing Scale Body Mass Index (BMI): 38.5 Nutritional Referral for Obesity: Yes - Why WEight structured weight loss program. - Physical Activity Physical Inactivity: Recreational activity - walking more than previously., None - Risk Stratification Risk Guidelines: Lowest Risk: Risk Factor for Smoking, Risk Factor for Dyslipidemia, Risk Factor for Diabetes, Risk Factor for Sedentary Lifestyle, Risk Factor for Depression, Highest Risk: Risk Factor for Obesity - lost 11 pounds to date. Motivation - Motivation to Participate On a scale of 1 to 10, how prepared are you to commit to attending program?: 8 What do you see as barriers to successfully being able to complete the program?: none What do you see as the benefits of succesfully completing the program? In other words, what do you hope to get out of participating in the program?: Breathe better, be more active. Are there issues you are dealing with that will interfere with completing the program?: None Do you have a spouse or signficant other, family or friends who will help support you to complete the program?: yes Diagnostic Data Review - Pulmonary Function Test FEV1:: 1.83 - 45% predicted FVC:: 3.53 - 65% predicted FEV1/FVC%:: 52 - 70% predicted Gold Classification: GOLD class III(severe COPD)with FEV1/FVC<70, 30%</=FEV1< 50% predicted
[2020-08-23 10:10] VITALS: O2SAT 93; BMI 38.5
[2020-08-23 10:25] VITALS: BP 128/68; PULSE 73; TEMP 36.3; O2SAT 93; BMI 38.5
== END ==
PROVIDERS: PCP Family Medicine Geriatric Medicine; Referring Provider Internal Medicine Critical Care Medicine; Visit Provider Internal Medicine Critical Care Medicine
DX: R94.2 Abnormal results of pulmonary function studies (principal); R73.9 Hyperglycemia, unspecified; I10 Essential (primary) hypertension

== ENCOUNTER → 2020-08-23 11:05 | Outpatient (CLI) | payer MEDICARE, OTHER, SELFPAY ==
[2020-08-17 06:13] VITALS: BMI 38.5
[2020-08-23 10:25] VITALS: BMI 38.5
[2020-08-23 11:57] VITALS: PULSE 100; PULSE 101; PULSE 102; PULSE 104; PULSE 105; PULSE 92; PULSE 94; O2SAT 90; O2SAT 91; O2SAT 92
--- NOTE | 2020-08-24 08:45 | WT_ITS ---
PSN 6 Minute Walk Test 6 Minute Walk Test 6 Minute Walk Test: 6 Minute Walk Test PSN:6-Minute Walk Test Start: 08/23/20 11:55 Freq: Status: Active Protocol: RESP.6MINW Document 08/23/20 11:57 [facility] (Rec: 08/23/20 12:02 [facility] [id number]) 6 Minute Walk Test Date Performed 08/23/20 Time Performed 11:00 Height 6 ft 3 in Weight: 308 lb Weight in Pounds 308.[address]: Leonel Carolina Assistive device used: None Pre-test Oxygen Delivery Method Room Air Pulse Ox (%) 92 Pulse Rate (60-100 beats/min) 92 Dyspnea Laure Scale (0-10) 1 1st minute Oxygen Delivery Method Room Air Pulse Ox (%) 91 Pulse Rate (60-100 beats/min) 100 Dyspnea Laure Scale (0-10) 1 Number of Rests Taken 0 2nd minute Oxygen Delivery Method Room Air Pulse Ox (%) 90 Pulse Rate (60-100 beats/min) 101 H Dyspnea Laure Scale (0-10) 2 Number of Rests Taken 0 3rd minute Oxygen Delivery Method Room Air Pulse Ox (%) 90 Pulse Rate (60-100 beats/min) 102 H Dyspnea Laure Scale (0-10) 3 Number of Rests Taken 0 Reported Symptoms Increased Work of Breathing 4th minute Oxygen Delivery Method Room Air Pulse Ox (%) 90 Pulse Rate (60-100 beats/min) 104 H Dyspnea Laure Scale (0-10) 3 Number of Rests Taken 0 Reported Symptoms Increased Work of Breathing 5th minute Oxygen Delivery Method Room Air Pulse Ox (%) 91 Pulse Rate (60-100 beats/min) 105 H Dyspnea Laure Scale (0-10) 3 Number of Rests Taken 0 Reported Symptoms Increased Work of Breathing 6th minute Oxygen Delivery Method Room Air Pulse Ox (%) 91 Pulse Rate (60-100 beats/min) 104 H Dyspnea Laure Scale (0-10) 3 Number of Rests Taken 0 Reported Symptoms Increased Work of Breathing Post-test Oxygen Delivery Method Room Air Pulse Ox (%) 92 Pulse Rate (60-100 beats/min) 94 Dyspnea Laure Scale (0-10) 1 Full Laps Walked 17 Partial Lap, Number of Tiles Walked 43 Total Distance Walked (ft) 1046 Interpretation Interpretation: The patient ambulated 1046 feet over the course of 6 minutes beginning on room air without assistive devices or breaks. Pretesting oxygen saturation was noted to be 92% on room air. With ambulation, the pilar oxygen saturation was 90%. There was no significant exertional oxygen desaturation. Recommendations Recommendations: There is no indication for the use of supplemental oxygen at this time.
== END ==
PROVIDERS: PCP Family Medicine Geriatric Medicine; Referring Provider Internal Medicine Critical Care Medicine; Visit Provider Internal Medicine Critical Care Medicine
DX: R94.2 Abnormal results of pulmonary function studies (principal)
CPT/HCPCS: 94618

== ENCOUNTER 2020-09-19 14:30 | Outpatient (RCR) | payer MEDICARE, OTHER, SELFPAY ==
[2020-08-23 10:25] VITALS: BMI 38.5
== END 2020-09-21 23:59 ==
LOC: PR 14:30
PROVIDERS: PCP Family Medicine Geriatric Medicine; Referring Provider Internal Medicine Critical Care Medicine; Visit Provider Internal Medicine Critical Care Medicine
DX: R94.2 Abnormal results of pulmonary function studies (principal)
CPT/HCPCS: 97150; G0424

== ENCOUNTER 2020-10-21 14:30 | Outpatient (RCR) | payer MEDICARE, OTHER, SELFPAY ==
[2020-08-23 10:25] VITALS: BMI 38.5
--- NOTE | 2020-09-23 10:51 | PCM.PR.TP ---
Exercise - 30-Day Assessment - Physician Prescribed Exercise Modalities: Treadmill, Airdyne, NuStep Frequency (days/week): 3 Duration (Minutes):: 30-45 Intensity: 60-80% of age predicted maximum heart rate reserve Aerobic Exercise [30-60 min 3-7x/week]:: Progressing Target heart rate: 99-129 Laure-13 METs - Progression: 0.5-1.0 MET, RPE 11-14 WEEK: 4.0 - just increased Disease Management - 30-Day - Medications Medication list reviewed:: Yes Taking medications 100% of the time:: Approximately 75% of the time Medication reassessment: Reinstructed Pt demonstrates correct technique timing for MDI, Reinstructed Pt demonstrates correct technique timing for DPI, Reinstructed Pt demonstrates correct technique timing for NEB, Reinstructed Pt demonstrates correct technique timing for spacer - Bronchial Hygiene Bronchial Hygiene Plan: Yes Pt demo correct for improved hydration, Yes Pt demo correct for hand hygiene, Yes Pt demo correct for verbalize when to call MD Psychosocial - 30-Day - Assessment Reassessment: Practicing interventions Tobacco - Initial Assessment Tobacco - 30-Day Assessment - Stage of Change Stages of Change:: Action - Learning Barriers Learning Barriers: Participates in education - Family Support Do you have family support?: Yes - Tobacco Use Tobacco Use: Non-smoker Do you use smokeless tobacco?: No - Intervention Smoking Cessation Referral:: No Individual Education/Counseling:: No Education Schedule Given:: Yes - Education Gave Education Materials For:: Pulmonary Disease, Risk Factors, Breathing Techniques, Medical Compliance, Pulmonary A&P, Exacerbation Signs & Symptoms, Stress & Relaxation Tobacco - 60-Day Assessment Tobacco - 90-Day Assessment Tobacco - Final Assessment Nutrition/Wt Mgmt - 30-Day - Weight Management Weight:: 300 lb Weight Goals Progress:: Referral to structured weight management program Patient Health Questionnaire 30-Day Re-eval Assessment 1. Little interest or pleasure in doing things: Not at all 2. Feeling down, depressed, or hopeless: Not at all 3. Trouble falling or staying asleep, or sleeping too much: More than half the days 4. Feeling tired or having little energy: Several days 5. Poor appetite or overeating: More than half the days 6. Feeling bad about yourself -- or that you are a failure or have let yourself or your family down: Not at all 7. Trouble concentrating on things, such as reading the newspaper or watching television: Not at all 8. Moving or speaking so slowly that other people could have noticed. Or the opposite - being so fidgety or restless that you have been moving around a lot more than usual: Not at all 9. Thoughts that you would be better off , or of hurting yourself in some way: Not at all How difficult have these problems made it for you to do your work, take care of things at home, or get along with other people?: Not difficult at all Total Score: 5 Self-Efficacy 30-Day Re-eval Assessment We would like to know how confident you are in doing certain activities. Please select your confidence level for:: Select your confidence level for the following using the scale 1-10 where 1 is not at all confident and 10 is totally confident. Your score is the average of all 6 responses. Fatigue: How confident are you that you can keep the fatigue caused by your disease from interfering with the things you want to do? Select Number: 7 Physical Discomfort or Pain: How confident are you that you can keep the physical discomfort or pain of your disease from interfering with the things you want to do? Select Number: 6 Emotional Distress: How confident are you that you can keep the emotional distress caused by your disease from interfering with the things you want to do? Select Number: 9 Other Symptoms or Health Problems: How confident are you that you can keep other symptoms or health problems from interfering with the things you want to do? Select Number: 7 Different Tasks and Activities: How confident are you that you can do the different tasks and activities needed to manage your health condition so as to reduce your need to see a doctor? Select Number: 8 Medication: How confident are you that you can do things other than just taking medication to reduce how much your illness affects your everyday life? Select Number: 8 Total Score:: 7 Nutrition Survey
== END 2020-10-22 23:59 ==
LOC: PR 14:30
PROVIDERS: PCP Family Medicine Geriatric Medicine; Referring Provider Internal Medicine Critical Care Medicine; Visit Provider Internal Medicine Critical Care Medicine
DX: R94.2 Abnormal results of pulmonary function studies (principal)
CPT/HCPCS: 97150; G0424

== ENCOUNTER 2020-11-21 14:30 | Outpatient (RCR) | payer MEDICARE, OTHER, SELFPAY ==
[2020-08-23 10:25] VITALS: BMI 38.5
--- NOTE | 2020-10-25 10:54 | PCM.PR.TP ---
Exercise - 60-Day Assessment - Physician Prescribed Exercise Modalities: Treadmill, Airdyne, NuStep Frequency (days/week): 3 Duration (Minutes):: 30-45 Intensity: 60-80% of age predicted maximum heart rate reserve Aerobic Exercise [30-60 min 3-7x/week]:: Progressing Target heart rate: 99-129 Laure-14 METs - Progression: 0.5-1.0 MET, RPE 11-14 WEEK: 5.0 - Home Exercise Home Exercise:: Yes Frequency:: DAILY Time (minutes):: 0 - pHYSICALLY ACTIVE > 1 HOUR DAILY Disease Management - 60-Day - Medications Medication list reviewed:: No Taking medications 100% of the time:: Not progressing Medication reassessment: Yes Pt demonstrates correct technique timing for MDI, Yes Pt demonstrates correct technique timing for DPI, Yes Pt demonstrates correct technique timing for NEB, Yes Pt demonstrates correct technique timing for spacer - Bronchial Hygiene Bronchial Hygiene Plan: Yes Pt demonstrates correctly for effective cough, Yes Pt demo correct for device, Yes Pt demo correct for hand hygiene, Yes Pt demo correct for cleaning of respiratory equipment Psychosocial - 60-Day - Assessment Depression reassess: Management of stress: Progressing, Management of depression: Progressing, Practicing interventions: Progressing Tobacco - Initial Assessment Tobacco - 30-Day Assessment Tobacco - 60-Day Assessment - Stage of Change Stages of Change:: Action - Learning Barriers Learning Barriers: Participates in education - Family Support Do you have family support?: Yes - Tobacco Use Tobacco Use: Non-smoker Do you use smokeless tobacco?: No - Intervention Smoking Cessation Referral:: No Individual Education/Counseling:: No Education Schedule Given:: Yes - Education Gave Education Materials For:: Pulmonary Disease, Risk Factors, Breathing Techniques, Medical Compliance, Pulmonary A&P, Exacerbation Signs & Symptoms, Stress & Relaxation Tobacco - 90-Day Assessment Tobacco - Final Assessment Nutrition/Wt Mgmt - 60-Day - Weight Management Weight:: 295 lb Weight Goals Progress:: Progressing Patient Health Questionnaire 60-Day Re-eval Assessment 1. Little interest or pleasure in doing things: Not at all 2. Feeling down, depressed, or hopeless: Not at all 3. Trouble falling or staying asleep, or sleeping too much: Not at all 4. Feeling tired or having little energy: Not at all 5. Poor appetite or overeating: Not at all 6. Feeling bad about yourself -- or that you are a failure or have let yourself or your family down: Not at all 7. Trouble concentrating on things, such as reading the newspaper or watching television: Not at all 8. Moving or speaking so slowly that other people could have noticed. Or the opposite - being so fidgety or restless that you have been moving around a lot more than usual: Not at all 9. Thoughts that you would be better off , or of hurting yourself in some way: Not at all How difficult have these problems made it for you to do your work, take care of things at home, or get along with other people?: Not difficult at all Total Score: 0 Self-Efficacy 60-Day Re-eval Assessment We would like to know how confident you are in doing certain activities. Please select your confidence level for:: Select your confidence level for the following using the scale 1-10 where 1 is not at all confident and 10 is totally confident. Your score is the average of all 6 responses. Fatigue: How confident are you that you can keep the fatigue caused by your disease from interfering with the things you want to do? Select Number: 10 Physical Discomfort or Pain: How confident are you that you can keep the physical discomfort or pain of your disease from interfering with the things you want to do? Select Number: 10 Emotional Distress: How confident are you that you can keep the emotional distress caused by your disease from interfering with the things you want to do? Select Number: 10 Other Symptoms or Health Problems: How confident are you that you can keep other symptoms or health problems from interfering with the things you want to do? Select Number: 10 Different Tasks and Activities: How confident are you that you can do the different tasks and activities needed to manage your health condition so as to reduce your need to see a doctor? Select Number: 10 Medication: How confident are you that you can do things other than just taking medication to reduce how much your illness affects your everyday life? Select Number: 10 Total Score:: 10 Nutrition Survey
== END 2020-11-22 23:59 ==
LOC: PR 14:30
PROVIDERS: PCP Family Medicine Geriatric Medicine; Referring Provider Internal Medicine Critical Care Medicine; Visit Provider Internal Medicine Critical Care Medicine
DX: R94.2 Abnormal results of pulmonary function studies (principal)
CPT/HCPCS: 97150; G0424

== ENCOUNTER 2020-11-25 14:30 | Outpatient (RCR) | payer MEDICARE, OTHER, SELFPAY ==
[2020-11-23 00:35] VITALS: BMI 38.5
== END 2020-12-22 23:59 ==
LOC: PR 14:30
PROVIDERS: PCP Family Medicine Geriatric Medicine; Referring Provider Internal Medicine Critical Care Medicine; Visit Provider Internal Medicine Critical Care Medicine
DX: R94.2 Abnormal results of pulmonary function studies (principal)
CPT/HCPCS: 97150; G0424

== ENCOUNTER → 2020-12-22 10:42 | Outpatient (CLI) | payer MEDICARE, OTHER, SELFPAY ==
[2020-12-22 12:30] LABS: Absolute Lymphocyte Count 2.06 X10^3/uL (0.83-4.51); Absolute Neutrophil Count 6.4 X10^3/uL (2.0-7.7); Basophil# 0.08 X10^3/uL; Basophil% 0.8 % (0-1); Eosinophil# 0.23 X10^3/uL; Eosinophils% 2.3 % (0-5); Hematocrit 47.3 % (40-54); Hemoglobin 15.2 g/dL (13.0-16.5); Lymphocyte # 2.06 X10^3/ul (0.83-4.51); Lymphocyte % 20.9 % (19-41); Mean Corp Hgb Conc 32.1 g/dL (32-36); Mean Corpuscular Hgb 28.6 pg (27.0-32.0); Mean Corpuscular Volume 89.1 fL (80-94); Mean Platelet Vol. 11.9 fl (6.2-12.0); Monocyte# 1.05 X10^3/uL; Monocyte% 10.6 % (0-10); NRBC Flagged by Analyzer 0 % (0-5); Neutrophil # 6.39 X10^3/uL (2.7-7.7); Neutrophil % 64.8 % (47-70); Platelet Count 182 K/mm3 (150-450); RBC Distribution Width CV 13.5 % (11.6-14.6); RBC Distribution Width SD 43.8 fl (35.1-43.9); Red Blood Count 5.31 M/mm3 (4.6-6.2); White Blood Count 9.9 K/mm3 (4.4-11.0)
[2020-12-22 12:57] LABS: Vitamin D,25 Hydroxy 41.8 ng/mL
[2020-12-22 13:19] LABS: ALB/GLOB Ratio 0.9 RATIO (0.9-2.4); AST(SGOT) 16 U/L (15-37); Alanine Aminotransfer ALT/SGPT 40 U/L (16-61); Albumin, Serum 3.6 g/dL (3.2-5.0); Alkaline Phosphatase 107 U/L (45-117); Anion Gap 8 (5-15); BUN 21 mg/dL (7-18); BUN/Creat Ratio 20.8 RATIO (10-20); Calcium,Total 9.7 mg/dL (8.5-10.1); Chloride 101 mmol/L (98-107); Creatinine, Serum 1.01 mg/dL (0.70-1.30); EST Glomerular Filtration Rate 78 mL/min (>60); Est Glom Filt Rate - Afr Amer 94 mL/min (>60); Globulin 4.2 g/dL (2.2-4.2); Glucose 130 mg/dL (74-106); PSA,Total - Annual Screen 0.32 ng/mL (0.00-4.00); Potassium 3.9 mmol/L (3.5-5.1); Protein, Total 7.8 g/dL (6.4-8.2); Sodium Level 138 mmol/L (136-145)
== END ==
PROVIDERS: PCP Family Medicine Geriatric Medicine; Visit Provider Family Medicine Geriatric Medicine
DX: E11.9 Type 2 diabetes mellitus without complications (principal); I10 Essential (primary) hypertension; E23.6 Other disorders of pituitary gland; E55.9 Vitamin D deficiency, unspecified; Z12.5 Encounter for screening for malignant neoplasm of prostate
CPT/HCPCS: 36415; 80053; 82306; 84153; 84403; 84443; 85025; G0103

== ENCOUNTER 2021-05-03 08:21 | Outpatient (CLI) | payer MEDICARE, OTHER, SELFPAY ==
--- NOTE | 2021-05-03 08:24 | CT_ITS ---
EXAM: CT CHEST, LUNG CANCER SCREENING WITHOUT INTRAVENOUS CONTRAST : 1950 CLINICAL INDICATION: smoker > 40 pack years quit 04/03/18 TECHNIQUE: Helically acquired images were obtained of the chest without intravenous contrast using low dose (LDCT) lung cancer screening protocol. This CT exam was performed using one or more of the following dose reduction techniques: automated exposure control, adjustment of the mA and/or kV according to patient size, and/or use of iterative reconstruction technique. This report was created using [employer] report generation technology. COMPARISON: 05/02/2020 FINDINGS: LUNGS AND PLEURAL SPACES: There are emphysematous changes in the left apex. There is minimal scarring in the lingula which has decreased from the reference exam. Minimal bibasilar scarring which is stable. There is no focal consolidation. There is no pulmonary nodule. No pleural effusion or thickening. No pneumothorax. HEART: Unremarkable. Heart size is normal. No pericardial effusion. No significant coronary artery calcifications. MEDIASTINUM: Unremarkable. No mediastinal or hilar adenopathy. Esophagus is unremarkable. No hiatal hernia. THYROID: Unremarkable. No thyroid lesions. BONES/JOINTS: Unremarkable. No suspicious lytic or blastic abnormality. VASCULATURE: Unremarkable. Thoracic aorta is non-dilated. LYMPH NODES: Unremarkable. No enlarged lymph nodes. OTHER FINDINGS: CT/Low Dose CT Lung Screening IMPRESSION: 1. Stable emphysematous change in the left apex. There is scarring within the lingula and lung bases. No pulmonary nodules are seen. 2. Lung RADS category 1. Individualized dose optimization techniques were used for this CT. at 1712 Reported and signed by: Cl Samuel MD Electronically Signed: Cl Samuel MD at 17:11 EST ,
== END 2021-05-03 23:59 | disposition home or self-care (01) ==
PROVIDERS: PCP Family Medicine Geriatric Medicine; Referring Provider Nurse Practitioner Acute Care; Visit Provider Nurse Practitioner Acute Care
DX: Z87.891 Personal history of nicotine dependence (principal)
CPT/HCPCS: 71271

== ENCOUNTER 2021-06-22 09:58 | Outpatient (CLI) | payer MEDICARE, OTHER, SELFPAY ==
[2021-06-22 11:01] LABS: Absolute Lymphocyte Count 2.09 X10^3/uL (0.83-4.51); Absolute Neutrophil Count 6.6 X10^3/uL (2.0-7.7); Basophil# 0.06 X10^3/uL; Basophil% 0.6 % (0-1); Eosinophil# 0.21 X10^3/uL; Eosinophils% 2.1 % (0-5); Hematocrit 48.6 % (40-54); Hemoglobin 15.9 g/dL (13.0-16.5); Lymphocyte # 2.09 X10^3/ul (0.83-4.51); Lymphocyte % 20.6 % (19-41); Mean Corp Hgb Conc 32.7 g/dL (32-36); Mean Corpuscular Hgb 28.9 pg (27.0-32.0); Mean Corpuscular Volume 88.4 fL (80-94); Mean Platelet Vol. 11.9 fl (6.2-12.0); Monocyte# 1.15 X10^3/uL; Monocyte% 11.3 % (0-10); NRBC Flagged by Analyzer 0 % (0-5); Neutrophil # 6.57 X10^3/uL (2.7-7.7); Neutrophil % 64.5 % (47-70); Platelet Count 176 K/mm3 (150-450); RBC Distribution Width CV 13.6 % (11.6-14.6); RBC Distribution Width SD 44.3 fl (35.1-43.9); White Blood Count 10.2 K/mm3 (4.4-11.0)
[2021-06-22 11:23] LABS: Vitamin D,25 Hydroxy 48.9 ng/mL
[2021-06-22 11:33] LABS: AST(SGOT) 19 U/L (15-37); Alanine Aminotransfer ALT/SGPT 44 U/L (16-61); Albumin, Serum 3.9 g/dL (3.2-5.0); Alkaline Phosphatase 104 U/L (45-117); Anion Gap 6 (5-15); BUN 28 mg/dL (7-18); BUN/Creat Ratio 24.3 RATIO (10-20); Calcium,Total 9.1 mg/dL (8.5-10.1); Chloride 103 mmol/L (98-107); Creatinine, Serum 1.15 mg/dL (0.70-1.30); EST Glomerular Filtration Rate 67 mL/min (>60); Est Glom Filt Rate - Afr Amer 81 mL/min (>60); Globulin 3.9 g/dL (2.2-4.2); Glucose 165 mg/dL (74-106); Potassium 3.5 mmol/L (3.5-5.1); Protein, Total 7.8 g/dL (6.4-8.2); Sodium Level 137 mmol/L (136-145); Thyroid Stim Hormone (TSH) 1.57 uIU/mL (0.358-3.74)
== END 2021-06-22 23:59 | disposition home or self-care (01) ==
LOC: LAB 10:00
PROVIDERS: PCP Family Medicine Geriatric Medicine; Referring Provider Family Medicine Geriatric Medicine; Visit Provider Family Medicine Geriatric Medicine
DX: E55.9 Vitamin D deficiency, unspecified (principal); E11.9 Type 2 diabetes mellitus without complications; F52.8 Other sexual dysfunction not due to a substance or known physiological condition; I10 Essential (primary) hypertension
CPT/HCPCS: 36415; 80053; 82306; 84403; 84443; 85025

== ENCOUNTER → 2021-10-06 | Outpatient (CLI) | payer MEDICARE, OTHER, SELFPAY ==
--- NOTE | 2021-10-06 09:55 | RAD_ITS ---
STUDY: X-RAY - ORBITS REASON FOR EXAM: Male, 71 years old. HX METAL TO EYE,PRE MRI -- PT JUST ARRIVED TECHNIQUE: 2 view(s) of the orbits were obtained. COMPARISON: None. FINDINGS: Normal bilateral orbits without a metallic orbital foreign body. Normal visualized facial bones. Normal paranasal sinuses. The soft tissue structures are unremarkable. RAD/Orbits for Foreign Body IMPRESSION: No demonstrated metallic orbital foreign body. The patient is cleared for an MRI examination. Electronically Signed: Morales Ramírez MD at 10:17 EDT ,
[2021-10-06 11:10] LABS: CREATININE FINGERSTICK 1.1 mg/dL (0.70-1.30); EGFR FINGERSTICK > 60.0000 mL/min (>60)
== END | disposition home or self-care (01) ==
PROVIDERS: PCP Family Medicine Geriatric Medicine; Visit Provider Otolaryngology
DX: Z01.812 Encounter for preprocedural laboratory examination (principal); H93.12 Tinnitus, left ear; H91.90 Unspecified hearing loss, unspecified ear
CPT/HCPCS: 70030

== ENCOUNTER 2021-12-28 09:14 | Outpatient (CLI) | payer MEDICARE, OTHER, SELFPAY ==
[2021-12-28 14:52] LABS: Absolute Lymphocyte Count 2.73 X10^3/uL (0.83-4.51); Absolute Neutrophil Count 7.3 X10^3/uL (2.0-7.7); Basophil# 0.08 X10^3/uL; Basophil% 0.7 % (0-1); Eosinophil# 0.29 X10^3/uL; Eosinophils% 2.4 % (0-5); Hematocrit 46.6 % (40-54); Lymphocyte # 2.73 X10^3/ul (0.83-4.51); Mean Corp Hgb Conc 32.2 g/dL (32-36); Mean Corpuscular Hgb 29.2 pg (27.0-32.0); Mean Corpuscular Volume 90.8 fL (80-94); Mean Platelet Vol. 12.9 fl (6.2-12.0); Monocyte# 1.36 X10^3/uL; Monocyte% 11.5 % (0-10); NRBC Flagged by Analyzer 0 % (0-5); Neutrophil # 7.28 X10^3/uL (2.7-7.7); Neutrophil % 61.4 % (47-70); Platelet Count 185 K/mm3 (150-450); RBC Distribution Width CV 14.4 % (11.6-14.6); RBC Distribution Width SD 47.9 fl (35.1-43.9); Red Blood Count 5.13 M/mm3 (4.6-6.2); White Blood Count 11.9 K/mm3 (4.4-11.0)
[2021-12-28 16:05] LABS: Vitamin D,25 Hydroxy 43.2 ng/mL
[2021-12-28 16:28] LABS: ALB/GLOB Ratio 0.9 RATIO (0.9-2.4); AST(SGOT) 21 U/L (15-37); Alanine Aminotransfer ALT/SGPT 53 U/L (16-61); Albumin, Serum 3.7 g/dL (3.2-5.0); Alkaline Phosphatase 149 U/L (45-117); Anion Gap 9 (5-15); BUN 29 mg/dL (7-18); BUN/Creat Ratio 21.6 RATIO (10-20); Calcium,Total 9.6 mg/dL (8.5-10.1); Chloride 106 mmol/L (98-107); Creatinine, Serum 1.34 mg/dL (0.70-1.30); EST Glomerular Filtration Rate 56 mL/min (>60); Est Glom Filt Rate - Afr Amer 68 mL/min (>60); Globulin 4.2 g/dL (2.2-4.2); Glucose 178 mg/dL (74-106); PSA,Total - Annual Screen 0.34 ng/mL (0.00-4.00); Potassium 4.1 mmol/L (3.5-5.1); Protein, Total 7.9 g/dL (6.4-8.2); Sodium Level 141 mmol/L (136-145); Thyroid Stim Hormone (TSH) 1.57 uIU/mL (0.358-3.74)
== END 2021-12-28 23:59 | disposition home or self-care (01) ==
LOC: POLAB3 09:15
PROVIDERS: PCP Family Medicine Geriatric Medicine; Visit Provider Family Medicine Geriatric Medicine
DX: E11.9 Type 2 diabetes mellitus without complications (principal); F52.8 Other sexual dysfunction not due to a substance or known physiological condition; I10 Essential (primary) hypertension; E55.9 Vitamin D deficiency, unspecified; Z12.5 Encounter for screening for malignant neoplasm of prostate
CPT/HCPCS: 36415; 80053; 82306; 84153; 84403; 84443; 85025; G0103

== ENCOUNTER → 2022-03-29 | Outpatient (CLI) | payer MEDICARE, OTHER, SELFPAY ==
[2022-03-29 12:56] LABS: Absolute Neutrophil Count 6.5 X10^3/uL (2.0-7.7); Basophil# 0.08 X10^3/uL; Basophil% 0.7 % (0-1); Eosinophil# 0.25 X10^3/uL; Eosinophils% 2.2 % (0-5); Hematocrit 47.5 % (40-54); Hemoglobin 15.2 g/dL (13.0-16.5); Lymphocyte % 26.7 % (19-41); Mean Corpuscular Hgb 29.5 pg (27.0-32.0); Mean Corpuscular Volume 92.1 fL (80-94); Mean Platelet Vol. 12.3 fl (6.2-12.0); Monocyte# 1.37 X10^3/uL; Monocyte% 12.2 % (0-10); NRBC Flagged by Analyzer 0 % (0-5); Neutrophil # 6.45 X10^3/uL (2.7-7.7); Neutrophil % 57.3 % (47-70); Platelet Count 178 K/mm3 (150-450); RBC Distribution Width CV 14.1 % (11.6-14.6); RBC Distribution Width SD 47.8 fl (35.1-43.9); Red Blood Count 5.16 M/mm3 (4.6-6.2); White Blood Count 11.3 K/mm3 (4.4-11.0)
[2022-03-29 13:14] LABS: Vitamin D,25 Hydroxy 41.3 ng/mL
[2022-03-29 13:19] LABS: ALB/GLOB Ratio 0.9 RATIO (0.9-2.4); AST(SGOT) 27 U/L (15-37); Alanine Aminotransfer ALT/SGPT 49 U/L (16-61); Albumin, Serum 3.7 g/dL (3.2-5.0); Alkaline Phosphatase 114 U/L (45-117); Anion Gap 6 (5-15); BUN 26 mg/dL (7-18); Calcium,Total 9.4 mg/dL (8.5-10.1); Chloride 110 mmol/L (98-107); Creatinine, Serum 1.37 mg/dL (0.70-1.30); EST Glomerular Filtration Rate 55 mL/min (>60); Est Glom Filt Rate - Afr Amer 66 mL/min (>60); Glucose 147 mg/dL (74-106); Potassium 4.2 mmol/L (3.5-5.1); Protein, Total 7.7 g/dL (6.4-8.2); Sodium Level 143 mmol/L (136-145); Thyroid Stim Hormone (TSH) 1.27 uIU/mL (0.358-3.74)
== END | disposition home or self-care (01) ==
LOC: POLAB3 09:18
PROVIDERS: PCP Family Medicine Geriatric Medicine; Visit Provider Family Medicine Geriatric Medicine
DX: E11.65 Type 2 diabetes mellitus with hyperglycemia (principal); I10 Essential (primary) hypertension; E55.9 Vitamin D deficiency, unspecified
CPT/HCPCS: 36415; 80053; 82306; 84443; 85025

== ENCOUNTER → 2022-05-07 | Outpatient (CLI) | payer MEDICARE, OTHER, SELFPAY ==
--- NOTE | 2022-05-07 12:59 | CT_ITS ---
STUDY: LOW DOSE CT LUNG CANCER SCREENING REASON FOR EXAM: Male, 71 years old. 53 pack years quit 2018 RADIATION DOSAGE (If Supplied By Facility): CTDIvol = ( 4.02 ) mGy, DLP = ( 144.96 ) mGycm TECHNIQUE: No contrast was administered. Low dose technique was utilized (average mAS-38 and kVp 120). 1.25 mm axial source images with a slice interval of 1.25-mm were reconstructed in lung windows. 2.5 mm axial source images with a slice interval of 2.5-mm were reconstructed in lung windows. 5.0 mm axial source images with a slice interval of 5.0-mm were reconstructed in soft tissue windows. COMPARISON: Comparison is made with prior study dated 05/03/2021. NODULES: . Since prior study, there has been progressive soft tissue density in the lateral aspect of the lingular segment of the left upper lobe posteriorly abutting the left major fissure. This measures 1.4 cm by 1.7 cm. Correlation with a PET scan is recommended. Emphysema: Emphysematous changes more prominent in the left lung apex. Stable scarring in the right lung apex as well as bullous change in the medial aspect of the left upper lobe. Mild linear scarring at the lung bases. Endobronchial lesion: None Aorta: Mild degree of calcified atherosclerotic change of the aortic arch. CORONARY ARTERIES: Coronary artery calcification is seen. Heart: Unremarkable Pulmonary artery: Unremarkable Mediastinal nodes: Unremarkable Other chest and abdominal findings: CT/Low Dose CT Lung Screening IMPRESSION: Lung-RADS category 4A - Screening at 3 months with LDCT or evaluation with PET/CT may be used. IMPORTANT NOTES FOR USE: ACR Lung-RADS Version 1.1 Assessment Categories Release Date: 2018 Category: Coded 0-4 bases on nodule(s) with highest degree of suspicion. Negative screen is defined as categories 1 and 2; a positive screen is defined as categories 3 and 4. Category 3 and 4A nodules that are unchanged on interval CT should be coded as category 2, and individuals returned to screening in 12 months. Category 4X: Category 3 or 4 nodules with additional imaging findings that increase the suspicion of lung cancer, such as spiculation, GGN that doubles in size in 1 year, enlarged lymph notes, etc. Category Modifiers: S (significant finding unrelated to lung cancer) Electronically Signed: Morales Ramírez MD at 13:44 EST ,
== END | disposition home or self-care (01) ==
LOC: CT 12:52
PROVIDERS: PCP Family Medicine Geriatric Medicine; Visit Provider Nurse Practitioner Acute Care
DX: Z87.891 Personal history of nicotine dependence (principal)
CPT/HCPCS: 71271

== ENCOUNTER 2022-05-15 07:38 | Outpatient (CLI) | payer MEDICARE, OTHER, SELFPAY ==
[2022-05-15] VITALS (13 sets, daily range): BP systolic 113–179; BP diastolic 55–97; PULSE 55–89; RESP 15–26; TEMP 35.9; O2SAT 92–95; BMI 38.6
[2022-05-15 07:54] LABS: Platelet Count 184 K/mm3 (150-450)
--- NOTE | 2022-05-15 07:54 | CT_ITS ---
PROCEDURE: CT GUIDED CORE NEEDLE BIOPSY OF A lingular LUNG LESION INDICATION: Male, 71 years old. Lung Nodule PHYSICIAN: Dr. LBIAN Redd CONSENT: Written informed consent was obtained having explained the risks, benefits and alternatives in detail with the patient who accepted the risks and agreed to proceed. Laboratory review and clinical assessment was performed. CONSCIOUS SEDATION PROTOCOL: The Drugs used were: 2 mg Versed, IV., and 50 mcg Fentanyl, IV. The sedation time was: 20 minutes. Conscious sedation was started at 9:04 AM and terminated at 924. The conscious sedation protocol was independently monitored. RADIATION DOSAGE (If Supplied By Facility): CTDIvol = ( 35.5 ) mGy, DLP = ( 848.64 ) mGycm Individualized dose optimization techniques were used for this CT. TECHNIQUE: The patient was placed in the supine position. A noncontrast CT was performed to localize the lesion in the peripheral aspect of the lingular segment of the left upper lobe . The skin surface was prepped and draped in a sterile fashion. 1% lidocaine was used for local anesthesia. Using CT guidance, a 20-gauge coaxial biopsy device was advanced to the periphery of the lesion. A total of 5 core specimens were obtained. The specimens were placed in a formalin solution. A post procedure CT demonstrated no adverse sequelae or pneumothorax. The patient tolerated the procedure well without adverse event. A negative biopsy does not exclude malignancy. Further imaging or clinical followup based on patient condition and degree of clinical suspicion for malignancy. Suggest rebiopsy, if biopsy results do not match with clinical scenario. CT/Biopsy/Inj or Needle Placement IMPRESSION: 1. CT directed core needle biopsy of the peripheral lingular nodule using CT image guidance with image documentation as described. Pathology results are pending. 2. Conscious Sedation protocol utilized with independent monitoring. Electronically Signed: Morales Ramírez MD at 9:52 EST ,
[2022-05-15 08:44] LABS: Partial Thromboplast Time 27.6 Seconds (24.1-36.2); Prothrombin Time (Protime)PT. 13.2 SECONDS (11.7-14.9)
--- NOTE | 2022-05-15 09:00 | ASPIGT_PTH ---
PATIENT: ROBERT RON LOC: CT U#:[id number] AGE/SX: 71/M ROOM: RE05/15/[address]: Dr. Leonel Carolina DO : 1950 BED: DIS: 05/15/2022 SPEC #: [id number] RECD: 05/15/22 09:30 STATUS: ADAMS REEnrique #: [id number] PAT: 05/15/22 09:[address]: Leonel Carolina DEPT: SURGICAL PATHOLOGY RECD BY: Isabelle Carrillo ENTERED: 05/15/22 10:10 SP TYPE: ASP RAD OTHR DR: Dr. Bulmaro Curtis MD Tissues: Lung, NOS Procedures: FNA Specimen Adequacy Special Stain Group II Surgery Specimen Level IV Imprint (control) HEADER OPERATION: CT-guided left lung biopsy PRE-OP DIAGNOSIS: Left lung nodule/mass TISSUE SUBMITTED: Left lingular segment 20-gauge core x5 MICROSCOPIC DIAGNOSIS Left lung, lingular segment, CT-guided core biopsy: Scant fragment of benign lung parenchymal tissue, skeletal muscle tissue, fibroadipose tissue, negative for malignancy. See comment. FRANKO:angelika 05/16/2022 COMMENT The specimen is evaluated at the time of biopsy by Dr. Lay. Immediate Evaluation = Negative for malignant cells. Correlation with clinical, radiologic findings and appropriate follow up are necessary. Re-biopsy is suggested if clinically indicated. Case has been reviewed in consultation with Dr. Mendoza who concurs with the above diagnosis. IDC:AM MICROSCOPIC DESCRIPTION Slides are reviewed. GROSS DESCRIPTION Received is one container labeled with the patient's name and not further designated. The specimen consists of multiple irregular fragments of sabillon soft tissue that in aggregate measure 0.5 x <0.1 x <0.1 cm. The specimen is totally submitted in one cassette. Two touch imprints are prepared at the time of core biopsy. / FRANKO:angelika 05/15/2022 TC:4 CPT: 75259, 46182
[2022-05-15] MEDS: Midazolam 2 MG/2 ML Syringe IV (09:04)
[2022-05-15] MEDS: 0.9% Saline Lock 10 ML Syringe IV (09:04)
[2022-05-15] MEDS: fentaNYL 100 MCG/2 ML Ampul IV (09:04)
[2022-05-15] MEDS: Lidocaine 2% (20 ml mdv) 20 ML Vial INFILT (09:16)
--- NOTE | 2022-05-15 09:32 | RAD_ITS ---
STUDY: X-RAY CHEST REASON FOR EXAM: Male, 71 years old. Post lung biopsy -- Immediately post lung biopsy TECHNIQUE: AP inspiration and expiration views. COMPARISON: Comparison is made with prior study dated 05/04/2019. FINDINGS: No evidence of pneumothorax on the immediate post left lung biopsy radiographs. RAD/Chest Insp/Exp 2 View IMPRESSION: No evidence of pneumothorax on the immediate post left lung biopsy radiographs. Electronically Signed: Morales Ramírez MD at 9:55 EST ,
--- NOTE | 2022-05-15 11:30 | RAD_ITS ---
STUDY: X-RAY CHEST REASON FOR EXAM: Male, 71 years old. Post lung biopsy -- 2 hours post lung biopsy TECHNIQUE: AP inspiration and expiration views following a left lung biopsy. COMPARISON: Comparison is made with prior study done earlier in the day. FINDINGS: No evidence of pneumothorax on the two-hour post left lung biopsy radiographs.. RAD/Chest Insp/Exp 2 View IMPRESSION: No evidence of pneumothorax on the 2 hour post left lung biopsy radiographs. Electronically Signed: Morales Ramírez MD at 11:07 EST ,
== END 2022-05-15 23:59 | disposition home or self-care (01) ==
LOC: CT 07:40
PROVIDERS: PCP Family Medicine Geriatric Medicine; Referring Provider Internal Medicine Critical Care Medicine; Visit Provider Internal Medicine Critical Care Medicine
DX: R91.1 Solitary pulmonary nodule (principal); R06.02 Shortness of breath
CPT/HCPCS: 32408; 36415; 71046; 77012; 85049; 85610; 85730; 88172; 88305; 88313; 99156; J7050; A4216; C2613

== ENCOUNTER → 2022-06-28 | Outpatient (CLI) | payer MEDICARE, OTHER, SELFPAY ==
[2022-06-28 12:15] LABS: Absolute Neutrophil Count 5.5 X10^3/uL (2.0-7.7); Basophil# 0.06 X10^3/uL; Basophil% 0.8 % (0-1); Eosinophil# 0.14 X10^3/uL; Eosinophils% 1.8 % (0-5); Hematocrit 45.4 % (40-54); Hemoglobin 14.5 g/dL (13.0-16.5); Lymphocyte % 17.9 % (19-41); Mean Corp Hgb Conc 31.9 g/dL (32-36); Mean Corpuscular Volume 90.8 fL (80-94); Mean Platelet Vol. 11.6 fl (6.2-12.0); Monocyte# 0.71 X10^3/uL; Monocyte% 9.1 % (0-10); NRBC Flagged by Analyzer 0 % (0-5); Neutrophil # 5.48 X10^3/uL (2.7-7.7); Neutrophil % 69.8 % (47-70); Platelet Count 176 K/mm3 (150-450); RBC Distribution Width SD 46.7 fl (35.1-43.9); White Blood Count 7.8 K/mm3 (4.4-11.0)
[2022-06-28 12:27] LABS: Vitamin D,25 Hydroxy 42.9 ng/mL
[2022-06-28 12:35] LABS: ALB/GLOB Ratio 0.9 RATIO (0.9-2.4); AST(SGOT) 23 U/L (15-37); Alanine Aminotransfer ALT/SGPT 41 U/L (16-61); Albumin, Serum 3.6 g/dL (3.2-5.0); Alkaline Phosphatase 93 U/L (45-117); Anion Gap 5 (5-15); BUN 16 mg/dL (7-18); BUN/Creat Ratio 15.7 RATIO (10-20); Calcium,Total 9.3 mg/dL (8.5-10.1); Chloride 106 mmol/L (98-107); Creatinine, Serum 1.02 mg/dL (0.70-1.30); EST Glomerular Filtration Rate 77 mL/min (>60); Est Glom Filt Rate - Afr Amer 93 mL/min (>60); Globulin 3.9 g/dL (2.2-4.2); Glucose 146 mg/dL (74-106); Protein, Total 7.5 g/dL (6.4-8.2); Sodium Level 138 mmol/L (136-145); Thyroid Stim Hormone (TSH) 0.73 uIU/mL (0.358-3.74)
== END | disposition home or self-care (01) ==
LOC: POLAB3 09:05
PROVIDERS: PCP Family Medicine Geriatric Medicine; Visit Provider Family Medicine Geriatric Medicine
DX: I10 Essential (primary) hypertension (principal); E11.9 Type 2 diabetes mellitus without complications; E55.9 Vitamin D deficiency, unspecified
CPT/HCPCS: 36415; 80053; 82306; 84443; 85025

== ENCOUNTER → 2022-08-18 | Outpatient (CLI) | payer MEDICARE, OTHER, SELFPAY ==
--- NOTE | 2022-08-18 10:04 | CT_ITS ---
INDICATION: 1.5 cm lung mass EXAMINATION: CT CHEST WITHOUT CONTRAST - CT Chest W/O Contrast Injection TECHNIQUE: Helically acquired images were obtained of the chest. A radiation dose optimization technique was used for this scan. IV Contrast dosage and agent: None. RADIATION DOSAGE (If Supplied By Facility): CTDIvol = ( 19.95 ) mGy, DLP = ( 792.56 ) mGycm COMPARISON: FINDINGS: LUNGS, PLEURA AND LARGE AIRWAYS: Hyperaeration. Probable lingular scarring. No suspicious nodular lesion. No masses, consolidation, or edema. No pleural effusion or thickening. No pneumothorax. THYROID: No thyroid lesions. HEART AND PERICARDIUM: Heart size is normal. No pericardial effusion. CORONARY ARTERIES: Coronary artery calcifications are noted VESSELS: Thoracic aorta is not dilated. MEDIASTINUM AND LISSETTE: No mediastinal or hilar adenopathy. Esophagus is unremarkable. No hiatal hernia. UPPER ABDOMEN: No acute pathology. BONES: No suspicious lytic or blastic abnormality. CT/Chest without Contrast IMPRESSION: Hyperaeration. Probable lingular scarring. No suspicious nodular lesion. Electronically Signed: Agustin Cai DO at 20:02 EDT ,
== END | disposition home or self-care (01) ==
LOC: CT 09:56
PROVIDERS: PCP Family Medicine Geriatric Medicine; Referring Provider Nurse Practitioner Acute Care; Visit Provider Nurse Practitioner Acute Care
DX: R91.1 Solitary pulmonary nodule (principal)
CPT/HCPCS: 71250

== ENCOUNTER 2022-12-17 07:50 | Emergency (ER) | payer MEDICARE, OTHER, SELFPAY ==
[2022-12-17 07:51] VITALS: BP 155/67; PULSE 75; RESP 16; TEMP 36.6; O2SAT 95; BMI 39.6
--- NOTE | 2022-12-17 07:58 | ED.VIS.GI ---
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 He states he feels little lightheaded and woozy but denies any chest pain or shortness of breath, no other symptoms. He thinks that may be he had a hemorrhoid that ruptured. He states that the blood is wetting his underwear. He denies any exacerbating or alleviating factors. No nausea or vomiting, no hematemesis. No dysuria or hematuria. He denies any other bleeding diathesis. [facility] Medical History (Updated 12/17/22 @ 09:23 by Kamari Bah MD) Essential hypertension Hyperglycemia Hypoxia Saddle pulmonary embolus Home Medications albuterol sulfate 90 mcg/actuation aerosol inhaler 2 puff IH BID sob 05/04/19 [History Last Taken 05/04/19] atorvastatin 40 mg tablet 40 mg PO QHS 05/04/19 [History Last Taken 05/03/19] cholecalciferol (vitamin D3) 25 mcg (1,000 unit) tablet 1,000 unit PO DAILY supplement 05/04/19 [History Last Taken 05/04/19] losartan 100 mg-hydrochlorothiazide 12.5 mg tablet 1 tab PO DAILY 05/04/19 [History Last Taken 05/04/19] albuterol sulfate 90 mcg/actuation aerosol inhaler 2 puff inhalation Q4H PRN shortness of breath or wheezing #1 ea 10/24/21 [Rx Last Taken Unknown] budesonide-formoterol HFA 160 mcg-4.5 mcg/actuation aerosol inhaler (Symbicort) 2 puff inhalation BID #1 ea 11/30/21 [Rx Last Taken Unknown] rivaroxaban 15 mg tablet 20 mg PO DAILY 11/30/21 [History Last Taken 05/12/22] citalopram 20 mg tablet (Celexa) 20 mg PO DAILY 05/08/22 [History Last Taken Unknown] budesonide 160 mcg-glycopyr 9 mcg-formot 4.8 mcg/actuation HFA inhaler (Breztri Aerosphere) 2 inh inhalation BID #10.7 grams 09/12/22 [Rx Last Taken Unknown] hydrocortisone 2.5 % topical cream with perineal applicator (Anusol-HC) 1 applic GA DAILY PRN hemorrhoids #30 grams 12/17/22 [Rx Last Taken Unknown] Allergy/AdvReac Type Severity Reaction Status Date / Time Sulfa (Sulfonamide Allergy Rash Verified 09/12/22 07:48 Antibiotics) Family History Father Heart disease Mother Heart disease Lung disease Grandmother Cancer Grandfather Cancer Other Diabetes Surgical History Cataracts, both eyes H/O parotidectomy Social History Smoking Status: Never smoker ROS ROS ED ROS Narrative Constitutional: No fever, no chills. HEENT: No sore throat. No neck pain. No loss of vision. No rhinorrhea. Cardiovascular: No chest pain. No palpitations. No pedal edema. Respiratory: No cough, no shortness of breath. Abdominal: No abdominal pain. No nausea. No vomiting. Bright red blood per rectum. Genitourinary: No dysuria. No hematuria. Musculoskeletal: No myalgias. No arthralgias. Neurologic: No headaches. No dizziness. No lightheadedness. Skin: No rash. No change in color. Psychiatric: No depression. No anxiety. EXAM Physical Exam Narrative Exam Narrative: Afebrile. Vital signs noted. HEENT: Normocephalic. Atraumatic. PERRL, EOMI. Neck soft and supple. No point tenderness or step off. Cardiovascular: Regular rate and rhythm. No murmurs, rubs, or gallops appreciated. Respiratory: No tachypnea. Lungs clear to auscultation bilaterally. Gastrointestinal: Abdomen soft, nontender, with normoactive bowel sounds. No rebound or guarding. Chaperoned rectal examination reveals: No bleeding above anoscope. There is a large nonthrombosed external hemorrhoid with area of previous excoriation and bleeding, along with small area of internal hemorrhoid also with excoriation and previous bleeding, no blood above anoscope. Neurological: Awake. Alert. Nonfocal, nonlateralizing. Skin: No rash. Normal color. No pallor. Musculoskeletal: No pedal edema. Full range of motion extremities. Const Vital Signs: 12/17/22 07:51 12/17/22 08:52 Temperature 97.9 F Temperature Source Oral Pulse Rate 75 Pulse Rate [Lying] 62 Pulse Rate [Sitting (for 1 minute prior to obtaining)] 58 L Pulse Rate [Standing (for 1 minute prior to obtaining)] 70 Respiratory Rate 16 Blood Pressure 155/67 H Blood Pressure [Lying] 150/73 H Blood Pressure [Sitting (for 1 minute prior to obtaining)] 162/71 H Blood Pressure [Standing (for 1 minute prior to obtaining)] 166/77 H Blood Pressure Mean 96 Blood Pressure Mean [Lying] 98 Blood Pressure Mean [Sitting (for 1 minute prior to obtaining)] 101 Blood Pressure Mean [Standing (for 1 minute prior to obtaining)] 106 Pulse Ox 95 Oxygen Delivery Method Room Air MDM MDM MDM Narrative Medical decision making narrative: In the differential diagnosis is hemorrhoidal hemorrhage versus diverticular hemorrhage, versus AV malformation, versus internal hemorrhoid with bleeding. Anoscopy will be performed. I will check his baseline laboratories including CBC and CMP to look for elevation of his BUN, but I have low suspicion for upper GI bleed. I do not feel CT imaging is indicated currently as he is not having any abdominal pain. I reviewed his laboratory work from today, he has normal white count of 7.9, hemoglobin normal at 13.6 with hematocrit 43.6, platelet count slightly low at 127. In review of his laboratory work, he has been thrombocytopenic in the past intermittently. BMP remarkable for chloride of 111 which I think is nonspecific, glucose is appropriately elevated at 137 with a normal anion gap of 6. BUN normal at 13 with creatinine 0.99, I have low concern for upper GI bleeding. Additionally, based on his anoscopy, I do feel that he has more of an external/internal hemorrhoid that was bleeding. He was told to hold his Xarelto for a day or 2 until his bleeding ceases then to restart it at his usual dosing. Additionally, he was written a prescription for Anusol HC. 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 At this point in time, I feel he be discharged safely home with follow-up. I reviewed his orthostatics and they were negative. Return instructions to the emergency department were reviewed. I do not feel he requires observation at this time. Disposition is discharged home in stable condition. History & Record Review Discussion w/independent historian: Patient Additional record(s) reviewed:: Prior ED visit and Prior labs Lab Data Attestation: I reviewed the patient's lab results. Labs: Laboratory Results - last 24 hr 12/17/22 12/17/22 12/17/22 08:15 08:15 08:36 WBC Cancelled 7.9 Corrected WBC Cancelled RBC Cancelled 4.62 Hgb Cancelled 13.6 Hct Cancelled 43.6 MCV Cancelled 94.4 H MCH Cancelled 29.4 MCHC Cancelled 31.2 L RDW Std Deviation Cancelled 47.9 H RDW Coeff of Neftali Cancelled 13.9 Plt Count Cancelled 127 L MPV Cancelled 11.7 Immature Gran % (Auto) Cancelled 0.800 Neut % (Auto) Cancelled 65.4 Lymph % (Auto) Cancelled 20.2 [place] % (Auto) Cancelled 10.4 H Eos % (Auto) Cancelled 2.4 Baso % (Auto) Cancelled 0.8 Absolute Neuts (auto) Cancelled 5.2 Absolute Lymphs (auto) Cancelled 1.60 Total Counted Cancelled Neutrophils % (Manual) Cancelled Band Neutrophils % Cancelled Lymphocytes % (Manual) Cancelled Monocytes % (Manual) Cancelled Eosinophils % (Manual) Cancelled Basophils % (Manual) Cancelled Metamyelocytes % Cancelled Myelocytes % Cancelled Promyelocytes % Cancelled Blast Cells % Cancelled Plasma Cell % (Manual) Cancelled Other Cells % Cancelled Nucleated RBC % Cancelled 0 Nucleated RBCs/100 WBC Cancelled Differential Comment Cancelled Diff Path Review Cancelled Hypersegmented Neuts Cancelled Atypical Lymphocytes Cancelled Reactive Lymphocytes Cancelled Smudge Cells Cancelled Toxic Granulation Cancelled Toxic Vacuolation Cancelled Dohle Bodies Cancelled [place]ita Rods Cancelled Platelet Estimate Cancelled Plt Morphology Comment Cancelled RBC Morphology Cancelled Cancelled Polychromasia Cancelled Hypochromasia Cancelled Poikilocytosis Cancelled Basophilic Stippling Cancelled Anisocytosis Cancelled Microcytosis Cancelled Macrocytosis Cancelled Spherocytes Cancelled Sickle Cells Cancelled Target Cells Cancelled Tear Drop Cells Cancelled Ovalocytes Cancelled Stomatocytes Cancelled [place] Bodies Cancelled [place] Cells Cancelled Bite Cells Cancelled Crenated Cell Cancelled Acanthocytes (Spur) Cancelled Rouleaux Cancelled Schistocytes Cancelled Sodium 139 Potassium 4.6 Chloride 111 H Carbon Dioxide 22.0 Anion Gap 6 BUN 13 Creatinine 0.99 Estim Creat Clear Calc 79.57 Est GFR (MDRD) Af Amer 95 Est GFR (MDRD) Non-Af 79 BUN/Creatinine Ratio 13.1 Glucose 137 H Calcium 8.8 Total Bilirubin 1.60 H AST 32 ALT 34 Alkaline Phosphatase 99 Total Protein 7.5 Albumin 3.5 Globulin 4.0 Albumin/Globulin Ratio 0.9 Discharge Plan Triage Chief Complaint: GI Bleed ED Provider: Kamari Bah Dx/Rx/DC Orders Clinical Impression: Hemorrhoids, internal, with bleeding, Hemorrhoids, external, Rectal bleeding Instructions: Treating Hemorrhoids: Self-Care, ED Hemorrhoids, ED Lower GI Bleeding (Stable) Prescriptions: New hydrocortisone [Anusol-HC] 2.5 % cream with perineal applicator 1 applic GA DAILY PRN (Reason: hemorrhoids) Qty: 30 0RF No Action rivaroxaban 15 mg tablet 20 mg PO DAILY Rx Instructions: must administer with evening meal budesonide-formoterol [Symbicort] 160-4.5 mcg/actuation HFA aerosol inhaler 2 puff inhalation BID Qty: 1 3RF Rx Instructions: administer with spacer, rinse mouth after each use citalopram [Celexa] 20 mg tablet 20 mg PO DAILY Breztri Aerosphere 160-9-4.8 mcg/actuation HFA aerosol inhaler 2 inh inhalation BID Qty: 10.7 6RF albuterol sulfate 18 GM HFA aerosol inhaler 2 puff IH BID losartan-hydrochlorothiazide 1 EACH tablet 1 tab PO DAILY Patient Comments: TAKE 1 TABLET DAILY atorvastatin 40 MG tablet 40 mg PO QHS cholecalciferol (vitamin D3) 1,000 UNIT tablet 1,000 unit PO DAILY albuterol sulfate 90 mcg/actuation HFA aerosol inhaler 2 puff inhalation Q4H PRN (Reason: shortness of breath or wheezing) Qty: 1 6RF Rx Instructions: administer with spacer Primary Care Provider: Bulmaro Curtis Chi Referrals: Bulmaro Curtis Chi, MD [Primary Care Provider] - Dajuan Flores MD [Non-Staff] - 3-5 Days if not improving Activity Restrictions/Additional Instructions: You may want to hold your Xarelto for a day or 2 until your bleeding stops. Follow-up with gastroenterology regarding your hemorrhoids. You may need referral to a surgeon. Return with increased bleeding, new or worsening symptoms. Disposition Disposition: Home, Self Care
--- NOTE | 2022-12-17 08:24 | NURSING ---
PURPLE TOP NEEDS REDRAWN
[2022-12-17 08:47] LABS: Absolute Neutrophil Count 5.2 X10^3/uL (2.0-7.7); Basophil# 0.06 X10^3/uL; Basophil% 0.8 % (0-1); Eosinophil# 0.19 X10^3/uL; Eosinophils% 2.4 % (0-5); Hematocrit 43.6 % (40-54); Hemoglobin 13.6 g/dL (13.0-16.5); Lymphocyte % 20.2 % (19-41); Mean Corp Hgb Conc 31.2 g/dL (32-36); Mean Corpuscular Hgb 29.4 pg (27.0-32.0); Mean Corpuscular Volume 94.4 fL (80-94); Mean Platelet Vol. 11.7 fl (6.2-12.0); Monocyte# 0.82 X10^3/uL; Monocyte% 10.4 % (0-10); NRBC Flagged by Analyzer 0 % (0-5); Neutrophil # 5.18 X10^3/uL (2.7-7.7); Neutrophil % 65.4 % (47-70); Platelet Count 127 K/mm3 (150-450); RBC Distribution Width CV 13.9 % (11.6-14.6); RBC Distribution Width SD 47.9 fl (35.1-43.9); Red Blood Count 4.62 M/mm3 (4.6-6.2); White Blood Count 7.9 K/mm3 (4.4-11.0)
[2022-12-17 08:52] VITALS: BP 150/73; BP 162/71; BP 166/77; PULSE 58; PULSE 62; PULSE 70
[2022-12-17 08:53] LABS: ALB/GLOB Ratio 0.9 RATIO (0.9-2.4); AST(SGOT) 32 U/L (15-37); Alanine Aminotransfer ALT/SGPT 34 U/L (16-61); Albumin, Serum 3.5 g/dL (3.2-5.0); Alkaline Phosphatase 99 U/L (45-117); Anion Gap 6 (5-15); BUN 13 mg/dL (7-18); BUN/Creat Ratio 13.1 RATIO (10-20); Calcium,Total 8.8 mg/dL (8.5-10.1); Chloride 111 mmol/L (98-107); Creatinine, Serum 0.99 mg/dL (0.70-1.30); EST Glomerular Filtration Rate 79 mL/min (>60); Est Glom Filt Rate - Afr Amer 95 mL/min (>60); Estimated Creatinine Clearance 79.57 ml/min; Glucose 137 mg/dL (74-106); Potassium 4.6 mmol/L (3.5-5.1); Protein, Total 7.5 g/dL (6.4-8.2); Sodium Level 139 mmol/L (136-145)
== END 2022-12-17 10:00 | disposition home or self-care (01) ==
PROVIDERS: Emergency Provider Emergency Medicine; PCP Family Medicine Geriatric Medicine; Visit Provider Emergency Medicine
DX: K64.8 Other hemorrhoids (principal); K64.4 Residual hemorrhoidal skin tags; I10 Essential (primary) hypertension; Z79.01 Long term (current) use of anticoagulants; Z79.899 Other long term (current) drug therapy
CPT/HCPCS: 46600; 80053; 85025; 99285; A4216

== ENCOUNTER → 2023-01-03 | Outpatient (CLI) | payer MEDICARE, OTHER, SELFPAY ==
[2023-01-03 13:30] LABS: Vitamin D,25 Hydroxy 40.6 ng/mL
[2023-01-03 13:36] LABS: Hemoglobin A1c 6.8 % (3.8-5.6)
[2023-01-03 13:45] LABS: ALB/GLOB Ratio 0.9 RATIO (0.9-2.4); AST(SGOT) 21 U/L (15-37); Alanine Aminotransfer ALT/SGPT 50 U/L (16-61); Albumin, Serum 3.8 g/dL (3.2-5.0); Alkaline Phosphatase 117 U/L (45-117); Anion Gap 9 (5-15); BUN 21 mg/dL (7-18); BUN/Creat Ratio 16.5 RATIO (10-20); Calcium,Total 9.4 mg/dL (8.5-10.1); Chloride 103 mmol/L (98-107); Creatinine, Serum 1.27 mg/dL (0.70-1.30); EST Glomerular Filtration Rate 59 mL/min (>60); Est Glom Filt Rate - Afr Amer 72 mL/min (>60); Globulin 4.4 g/dL (2.2-4.2); Glucose 158 mg/dL (74-106); Potassium 3.9 mmol/L (3.5-5.1); Protein, Total 8.2 g/dL (6.4-8.2); Sodium Level 137 mmol/L (136-145); Thyroid Stim Hormone (TSH) 2.17 uIU/mL (0.358-3.74)
[2023-01-03 15:15] LABS: Absolute Lymphocyte Count 2.76 X10^3/uL (0.83-4.51); Absolute Neutrophil Count 6.3 X10^3/uL (2.0-7.7); Basophil# 0.08 X10^3/uL; Basophil% 0.7 % (0-1); Eosinophil# 0.23 X10^3/uL; Eosinophils% 2.1 % (0-5); Hematocrit 48.5 % (40-54); Hemoglobin 15.5 g/dL (13.0-16.5); Lymphocyte # 2.76 X10^3/ul (0.83-4.51); Lymphocyte % 25.7 % (19-41); Mean Corpuscular Hgb 29.1 pg (27.0-32.0); Mean Corpuscular Volume 91.2 fL (80-94); Mean Platelet Vol. 12.2 fl (6.2-12.0); Monocyte# 1.22 X10^3/uL; Monocyte% 11.3 % (0-10); NRBC Flagged by Analyzer 0 % (0-5); Neutrophil # 6.34 X10^3/uL (2.7-7.7); Neutrophil % 59.1 % (47-70); Platelet Count 185 K/mm3 (150-450); RBC Distribution Width CV 14.3 % (11.6-14.6); RBC Distribution Width SD 47.6 fl (35.1-43.9); Red Blood Count 5.32 M/mm3 (4.6-6.2); White Blood Count 10.8 K/mm3 (4.4-11.0)
== END | disposition home or self-care (01) ==
LOC: POLAB3 09:14
PROVIDERS: PCP Family Medicine Geriatric Medicine; Visit Provider Family Medicine Geriatric Medicine
DX: I10 Essential (primary) hypertension (principal); E11.65 Type 2 diabetes mellitus with hyperglycemia; E55.9 Vitamin D deficiency, unspecified
CPT/HCPCS: 36415; 80053; 82306; 83036; 84443; 85025

== ENCOUNTER → 2023-07-04 | Outpatient (CLI) | payer MEDICARE, OTHER, SELFPAY ==
[2023-07-04 11:42] LABS: Absolute Lymphocyte Count 2.86 X10^3/uL (0.83-4.51); Absolute Neutrophil Count 6.4 X10^3/uL (2.0-7.7); Basophil# 0.11 X10^3/uL; Eosinophil# 0.23 X10^3/uL; Eosinophils% 2.1 % (0-5); Hematocrit 47.4 % (40-54); Hemoglobin 14.6 g/dL (13.0-16.5); Lymphocyte # 2.86 X10^3/ul (0.83-4.51); Mean Corp Hgb Conc 30.8 g/dL (32-36); Mean Corpuscular Hgb 28.6 pg (27.0-32.0); Mean Corpuscular Volume 92.9 fL (80-94); Mean Platelet Vol. 11.8 fl (6.2-12.0); Monocyte# 1.22 X10^3/uL; Monocyte% 11.1 % (0-10); NRBC Flagged by Analyzer 0 % (0-5); Neutrophil # 6.43 X10^3/uL (2.7-7.7); Neutrophil % 58.5 % (47-70); Platelet Count 170 K/mm3 (150-450); RBC Distribution Width CV 14.1 % (11.6-14.6); RBC Distribution Width SD 48.2 fl (35.1-43.9)
[2023-07-04 12:00] LABS: Vitamin D,25 Hydroxy 34.3 ng/mL
[2023-07-04 12:08] LABS: ALB/GLOB Ratio 0.9 RATIO (0.9-2.4); AST(SGOT) 22 U/L (15-37); Alanine Aminotransfer ALT/SGPT 42 U/L (16-61); Albumin, Serum 3.6 g/dL (3.2-5.0); Alkaline Phosphatase 117 U/L (45-117); Anion Gap 9 (5-15); BUN 23 mg/dL (7-18); BUN/Creat Ratio 19.3 RATIO (10-20); Calcium,Total 8.7 mg/dL (8.5-10.1); Chloride 103 mmol/L (98-107); Creatinine, Serum 1.19 mg/dL (0.70-1.30); EST Glomerular Filtration Rate 64 mL/min (>60); Est Glom Filt Rate - Afr Amer 77 mL/min (>60); Globulin 3.9 g/dL (2.2-4.2); Glucose 221 mg/dL (74-106); Potassium 3.9 mmol/L (3.5-5.1); Protein, Total 7.5 g/dL (6.4-8.2); Sodium Level 138 mmol/L (136-145); Thyroid Stim Hormone (TSH) 1.98 uIU/mL (0.358-3.74)
== END | disposition home or self-care (01) ==
LOC: POLAB3 09:32
PROVIDERS: PCP Family Medicine Geriatric Medicine; Visit Provider Family Medicine Geriatric Medicine
DX: E11.65 Type 2 diabetes mellitus with hyperglycemia (principal); I10 Essential (primary) hypertension; E55.9 Vitamin D deficiency, unspecified
CPT/HCPCS: 36415; 80053; 82306; 84443; 85025

== ENCOUNTER → 2023-07-25 | Outpatient (CLI) | payer MEDICARE, OTHER, SELFPAY ==
--- NOTE | 2023-07-25 13:41 | CT_ITS ---
HISTORY: History of tobacco dependency. TECHNIQUE: Helically acquired images were obtained of the chest without contrast. A radiation dose optimization technique was used for this scan. 995 images. COMPARISON: 08/18/2022, 05/07/2022, 05/03/2021. FINDINGS: LARGE AIRWAYS: Patent. LUNGS: Emphysema with a left apical bulla again seen. Very mild biapical scarring. Unchanged right mild linear scarring, particularly in the lingula. No new suspicious nodule or acute alveolar consolidation. PLEURA: No pneumothorax or significant pleural effusion. HEART/PERICARDIUM: Heart within normal limits in size with coronary artery calcification. No pericardial effusion. VESSELS: Thoracic aorta nondilated. Mild atherosclerosis. MEDIASTINUM/LISSETTE: No pathologically enlarged adenopathy. BONES: Mild degenerative change. CT/Low Dose CT Lung Screening IMPRESSION: Lung-RADS category 2: Continue annual screening with low dose CT. Electronically Signed: Bee Guzman MD at 12:13 EDT ,
== END | disposition home or self-care (01) ==
LOC: CT 13:40
PROVIDERS: PCP Family Medicine Geriatric Medicine; Referring Provider Internal Medicine Critical Care Medicine; Visit Provider Internal Medicine Critical Care Medicine
DX: F17.210 Nicotine dependence, cigarettes, uncomplicated (principal)
CPT/HCPCS: 71271

== ENCOUNTER → 2023-07-29 | Outpatient (CLI) | payer MEDICARE, OTHER, SELFPAY ==
--- NOTE | 2023-07-29 13:12 | MRI_ITS ---
STUDY: MRI BRAIN WITH AND WITHOUT CONTRAST REASON FOR EXAM: Male, 72 years old. ASYMMETRIC HEARING LOSS TECHNIQUE: Standardized multiplanar fat and water weighted pulse sequences were obtained. IV 30 ml clariscan was administered for the contrast portion of the examination. COMPARISON: None. FINDINGS: Normal size of the ventricles and extra-axial spaces for the patient''s age. Minor periventricular white matter ischemic change without mass effect or restricted diffusion.. Normal bilateral basal ganglia. Normal thalami. There is no extra-axial fluid accumulation. Normal flow voids within the major intracranial circulation suggesting patency by spin echo criteria. Normal venous enhancement. There is no enhancing intra-axial or extra-axial abnormality. Normal sella turcica, pituitary gland, infundibular stalk, optic chiasm and hypothalamus. Normal tectal plate and pineal gland. Normal midbrain, shaw and medulla. Normal cerebellum. Normal basal cisterns. Normal bilateral temporal bones. Normal bilateral internal auditory canals. Postsurgical changes of the orbits. Normal visualized paranasal sinuses. Normal calvarium and skull base. Normal visualized soft tissue structures. Normal visualized upper cervical spine. MRI/Brain W/WO Contrast IMPRESSION: Minor periventricular white matter ischemic changes without evidence for acute infarct.. No evidence for acoustic or vestibular schwannoma Electronically Signed: Carlin Vizcarra MD at 19:41 EDT ,
== END | disposition home or self-care (01) ==
LOC: MRI 13:08
PROVIDERS: PCP Family Medicine Geriatric Medicine; Referring Provider Otolaryngology; Visit Provider Otolaryngology
DX: H93.12 Tinnitus, left ear (principal); H91.90 Unspecified hearing loss, unspecified ear
CPT/HCPCS: 70553; A9575

== ENCOUNTER → 2024-01-07 | Outpatient (CLI) | payer MEDICARE, OTHER, SELFPAY ==
[2024-01-07 11:40] LABS: Absolute Lymphocyte Count 1.49 X10^3/uL (0.83-4.51); Absolute Neutrophil Count 6.5 X10^3/uL (2.0-7.7); Basophil# 0.07 X10^3/uL; Basophil% 0.8 % (0-1); Eosinophil# 0.15 X10^3/uL; Eosinophils% 1.6 % (0-5); Hematocrit 47.9 % (40-54); Hemoglobin 14.9 g/dL (13.0-16.5); Lymphocyte # 1.49 X10^3/ul (0.83-4.51); Lymphocyte % 16.3 % (19-41); Mean Corp Hgb Conc 31.1 g/dL (32-36); Mean Corpuscular Hgb 28.9 pg (27.0-32.0); Mean Platelet Vol. 11.7 fl (6.2-12.0); Monocyte# 0.84 X10^3/uL; Monocyte% 9.2 % (0-10); NRBC Flagged by Analyzer 0 % (0-5); Neutrophil % 70.9 % (47-70); Platelet Count 168 K/mm3 (150-450); RBC Distribution Width CV 14.2 % (11.6-14.6); RBC Distribution Width SD 48.8 fl (35.1-43.9); Red Blood Count 5.15 M/mm3 (4.6-6.2); White Blood Count 9.2 K/mm3 (4.4-11.0)
[2024-01-07 12:13] LABS: ALB/GLOB Ratio 0.8 RATIO (0.9-2.4); AST(SGOT) 32 U/L (15-37); Alanine Aminotransfer ALT/SGPT 50 U/L (16-61); Albumin, Serum 3.5 g/dL (3.2-5.0); Alkaline Phosphatase 143 U/L (45-117); Anion Gap 5 (5-15); BUN 21 mg/dL (7-18); BUN/Creat Ratio 16.9 RATIO (10-20); Calcium,Total 9.5 mg/dL (8.5-10.1); Chloride 106 mmol/L (98-107); Creatinine, Serum 1.24 mg/dL (0.70-1.30); EST Glomerular Filtration Rate 61 mL/min (>60); Est Glom Filt Rate - Afr Amer 74 mL/min (>60); Globulin 4.3 g/dL (2.2-4.2); Glucose 239 mg/dL (74-106); Potassium 4.1 mmol/L (3.5-5.1); Protein, Total 7.8 g/dL (6.4-8.2); Sodium Level 137 mmol/L (136-145)
== END | disposition home or self-care (01) ==
LOC: LAB 11:07
PROVIDERS: PCP Family Medicine Geriatric Medicine; Referring Provider Family Medicine Geriatric Medicine; Visit Provider Family Medicine Geriatric Medicine
DX: E11.65 Type 2 diabetes mellitus with hyperglycemia (principal); I10 Essential (primary) hypertension; E55.9 Vitamin D deficiency, unspecified
CPT/HCPCS: 36415; 80053; 82306; 84443; 85025

== ENCOUNTER → 2024-04-13 | Outpatient (CLI) | payer MEDICARE, OTHER, SELFPAY ==
--- NOTE | 2024-04-13 12:46 | CT_ITS ---
ACR Level 3 findings have been noted. An addendum which confirms receipt of the report will follow. HISTORY: Right neck mass. TECHNIQUE: Helically acquired images were obtained of the neck after the intravenous administration of 100 mL Isovue 300. A radiation dose optimization technique was used for this scan. 338 images. COMPARISON: 03/23/2013. FINDINGS: NASOPHARYNX: Unremarkable. SUPRAHYOID NECK: 1.9 x 3.3 x 3 cm lobulated soft tissue thickening at the tongue base, previously 1 x 3.2 x 2.3 cm. Limited evaluation of the oral cavity due to artifact from dental amalgam. INFRAHYOID NECK: Unremarkable larynx, hypopharynx, and supraglottis. THYROID: No focal lesions. SALIVARY GLANDS: 1.2 x 1.6 cm necrotic nodule or lymph node in the right parotid, new from prior. Left parotid nodule and mass no longer seen. Homogeneous submandibular glands. LYMPH NODES: Multiple enlarged lymph nodes or masses in the right neck. These measure up to 2.9 x 3 cm right level 2 with mild edema or infiltration extending to the right parapharyngeal space and mild mass effect on the right submandibular gland and 3 x 3.5 cm right level 3 abutting the right internal jugular vein and carotid artery, corresponding to the marker. VASCULAR STRUCTURES: Mild carotid and vertebral artery atherosclerosis. PARANASAL SINUSES, MASTOID AIR CELLS: No significant air-fluid levels. OSSEOUS STRUCTURES: Posterior disc bulge osteophyte complexes of the cervical spine with uncovertebral and facet arthropathy. Severe central canal stenosis, probable cord impingement, and bilateral foraminal narrowing at C4-5. Moderate central canal stenosis and bilateral foraminal narrowing of C3-4, C5-6, and C6-7. LUNG APICES: Chronic left apical bullae. CT/Soft Tissue Neck WITH Contrast IMPRESSION: Abnormal enlargement and soft tissue thickening at the tongue base, suspicious for neoplasm. Multiple masses in the right neck, concerning for metastatic lymphadenopathy or malignancy. Small necrotic lymph node or mass in the right parotid. Electronically Signed: Bee Guzman MD at 10:46 EST ,
== END | disposition home or self-care (01) ==
LOC: CT 12:45
PROVIDERS: PCP Family Medicine Geriatric Medicine; Referring Provider Otolaryngology; Visit Provider Otolaryngology
DX: R22.1 Localized swelling, mass and lump, neck (principal)
CPT/HCPCS: 70491; Q9967

== ENCOUNTER 2024-07-02 08:20 | Day surgery (SDC) | payer MEDICARE, OTHER, SELFPAY ==
--- NOTE | 2024-06-23 09:56 | PAT.ANESEVAL ---
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 When Was Last Pacemaker Check QUESTION #4 FULL TEXT: You/Your Family Experience fever (hyperthermia) with Anesthesia Last Oral Intake Last Oral intake: Last Oral Intake NPO since Meds taken in AM with sips of water? Meds patient instructed to take am of surgery PONV PONV - thermoplastic technician: PONV - thermoplastic technician Female No 06/22/24 17:28 HX of Motion Sickness No 06/22/24 17:28 HX of N/V After Surgery No 06/22/24 17:28 Non-Smoker Yes 06/22/24 17:28 Duration of Surgery greater Yes 06/22/24 17:28 than 60 minutes Number of Risk Factors 2 06/22/24 17:28 PONV Score Moderate Risk 06/22/24 17:28 Height & Weight Height & Weight: Anesthesia: Height & Weight Height 6 ft 2 in 06/03/24 09:39 Respiratory Assessment Respiratory Assessment - thermoplastic technician: Respiratory Tract Infection Hx - thermoplastic technician Hx Respiratory Tract Infection No 06/22/24 17:28 STOP Sleep Apnea STOP Sleep Apnea - thermoplastic technician: STOP Sleep Apnea - thermoplastic technician Hx Hypertension Yes: PER PT , CONTROLLED ON 06/22/24 17:28 MEDS Hx Sleep Apnea Yes 06/22/24 17:28 CPAP Yes 06/22/24 17:28 BIPAP No 06/22/24 17:28 Do you snore loudly (louder than talking or can be heard Do you often feel tired/ fatigued/ sleepy during daytime? Has anyone observed you stop breathing during sleep? STOP Results Positive 06/22/24 17:28 QUESTION #5 FULL TEXT : Do you snore loudly (louder than talking or can be heard through closed doors)? 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 Specify any problems Hx of Preganancy in last 3 N/A 06/22/24 17:28 Months Nurse Filling Out Transfusion MGRIFFITH 06/22/24 17:28 & Questions: Date: 06/22/24 06/22/24 17:28 Time: 17:30 06/22/24 17:28 Patient unable to answer at this time (ie. confused, unrespo /Reproduction History /Reproductive History - thermoplastic technician: /Reproductive Hx- thermoplastic technician Hx Now Gestational Age (in weeks): EDC: Hx Hx Para Hx Section SAB PFSH Medical History (Updated 06/22/24 @ 17:40 by Daxa Yin) Wears glasses Edentulous High cholesterol Injury of head and neck History of hiatal hernia CPAP (continuous positive airway pressure) dependence Shortness of breath on exertion Former smoker History of edema History of echocardiogram COPD (chronic obstructive pulmonary disease) Tongue cancer Hyperglycemia Essential hypertension Hypoxia Saddle pulmonary embolus Home Medications ?Medication ?Instructions ?Recorded ?Last Taken ?Type atorvastatin 40 mg tablet 40 mg PO QHS 05/04/19 05/03/19 History cholecalciferol (vitamin D3) 25 1,000 unit PO DAILY supplement 05/04/19 05/04/19 History mcg (1,000 unit) tablet rivaroxaban 15 mg tablet 20 mg PO QHS 11/30/21 05/12/22 History citalopram 20 mg tablet (Celexa) 20 mg PO QHS 05/08/22 Unknown History albuterol sulfate 90 mcg/actuation 2 puff inhalation Q4H PRN 07/31/23 Unknown Rx aerosol inhaler shortness of breath or wheezing #1 ea budesonide 160 mcg-glycopyr 9 2 inh inhalation BID #10.7 grams 07/31/23 Unknown Rx mcg-formot 4.8 mcg/actuation HFA inhaler (Breztri Aerosphere) cetirizine 10 mg capsule (Zyrtec) 10 mg PO DAILY PRN allergy symptoms 07/31/23 Unknown History fluticasone furoate 27.5 2 spray intranasal DAILY PRN 07/31/23 Unknown History mcg/actuation nasal allergy symptoms spray,suspension (Flonase Sensimist) hydrochlorothiazide 12.5 mg tablet 12.5 mg PO QHS 07/31/23 Unknown History valsartan 320 mg tablet 320 mg PO QHS 07/31/23 Unknown History acetaminophen 500 mg capsule 500 mg PO Q6H PRN pain 05/20/24 Unknown History acetaminophen 300 mg-codeine 30 mg 1 - 2 tab PO Q6H PRN PRN pain 06/22/24 Unknown History tablet ibuprofen 600 mg tablet 600 mg PO Q6H PRN PRN pain 06/22/24 Unknown History Allergy/AdvReac Type Severity Reaction Status Date / Time Sulfa (Sulfonamide Allergy Rash Verified 06/22/24 17:20 Antibiotics) Family History Father Heart disease Mother Heart disease Lung disease Grandmother Cancer Grandfather Cancer Other Diabetes Surgical History (Updated 06/22/24 @ 17:27 by Daxa Yin) History of surgery History of esophagogastroduodenoscopy (EGD) History of colonoscopy History of appendectomy History of tonsillectomy Cataracts, both eyes H/O parotidectomy Social History Smoking Status: Former smoker how long ago did patient quit smokin second hand exposure: Yes Audit: Pertinent Findings Pertinent Findings EKG Perinent findings: May 04, 2019. Sinus tachycardia. Nonspecific ST abnormality. Echo (EF%) pertinent findings: May 05, 2019. Ejection fraction 65%. Normal function of valves. Pulmonary function results/spirometer pertinent findings: June 19, 2019. Partially reversible severe mixed ventilatory defect with mild reduction in diffusing capacity. Recommendation Anesthesia Recommendation Anesthesia recommendation: OPTIMIZED for anesthesia
[2024-07-02] VITALS (14 sets, daily range): BP systolic 120–161; BP diastolic 69–88; PULSE 57–82; RESP 14–18; TEMP 36.3–37.2; O2SAT 92–98; BMI 39.9
--- NOTE | 2024-07-02 09:42 | PCM.HP.STD ---
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 He presents today for port and PEG placement. He states that he is also scheduled to meet with someone to have all of his teeth removed prior to starting chemo and radiation. It is his understanding that they would like to wait 2 to 3 weeks after his dental procedures to begin head neck cancer treatments. He has a good understanding of the reasons for the PEG and port to be placed. FOR[facility]LY [facility] Medical History (Updated 06/29/24 @ 10:55 by Ashly Laguerre NP, CANE FLUME WATCHMAN-C) Encounter for education Wears glasses Edentulous High cholesterol Injury of head and neck History of hiatal hernia CPAP (continuous positive airway pressure) dependence Shortness of breath on exertion Former smoker History of edema History of echocardiogram COPD (chronic obstructive pulmonary disease) Tongue cancer Hyperglycemia Essential hypertension Hypoxia Saddle pulmonary embolus Home Medications ?Medication ?Instructions ?Recorded ?Last Taken ?Type atorvastatin 40 mg tablet 40 mg PO QHS 05/04/19 05/03/19 History cholecalciferol (vitamin D3) 25 1,000 unit PO DAILY supplement 05/04/19 05/04/19 History mcg (1,000 unit) tablet rivaroxaban 15 mg tablet 20 mg PO QHS 11/30/21 06/28/24 History citalopram 20 mg tablet (Celexa) 20 mg PO QHS 05/08/22 Unknown History albuterol sulfate 90 mcg/actuation 2 puff inhalation Q4H PRN 07/31/23 Unknown Rx aerosol inhaler shortness of breath or wheezing #1 ea budesonide 160 mcg-glycopyr 9 2 inh inhalation BID #10.7 grams 07/31/23 Unknown Rx mcg-formot 4.8 mcg/actuation HFA inhaler (Breztri Aerosphere) cetirizine 10 mg capsule (Zyrtec) 10 mg PO DAILY PRN allergy symptoms 07/31/23 Unknown History fluticasone furoate 27.5 2 spray intranasal DAILY PRN 07/31/23 Unknown History mcg/actuation nasal allergy symptoms spray,suspension (Flonase Sensimist) hydrochlorothiazide 12.5 mg tablet 12.5 mg PO QHS 07/31/23 Unknown History valsartan 320 mg tablet 320 mg PO QHS 07/31/23 Unknown History acetaminophen 500 mg capsule 500 mg PO Q6H PRN pain 05/20/24 07/01/24 History acetaminophen 300 mg-codeine 30 mg 1 - 2 tab PO Q6H PRN PRN pain 06/22/24 Unknown History tablet ibuprofen 600 mg tablet 600 mg PO Q6H PRN PRN pain 06/22/24 Unknown History lidocaine-prilocaine 2.5 %-2.5 % 1 applic topical ONCE PRN port 06/29/24 Unknown Rx topical cream access 30 days #30 grams ondansetron 8 mg disintegrating 8 mg PO Q8H PRN nausea and 06/29/24 Unknown Rx tablet vomiting #30 tabs Allergy/AdvReac Type Severity Reaction Status Date / Time Sulfa (Sulfonamide Allergy Rash Verified 07/02/24 08:52 Antibiotics) Family History Father Heart disease Mother Heart disease Lung disease Grandmother Cancer Grandfather Cancer Other Diabetes Surgical History History of surgery History of esophagogastroduodenoscopy (EGD) History of colonoscopy History of appendectomy History of tonsillectomy Cataracts, both eyes H/O parotidectomy Social History Smoking Status: Former smoker how long ago did patient quit smokin second hand exposure: Yes Vital Signs Vital Signs Vital Signs: 07/02/24 08:54 07/02/24 08:54 Temperature 98.9 F Temperature Source Temporal Pulse Rate 82 Respiratory Rate 18 Respiratory Pattern Normal Blood Pressure 161/69 H Blood Pressure Mean 99 Blood Pressure Source Monitor Blood Pressure Position Semi-Fowlers Blood Pressure Location Left Arm Pulse Ox 94 Oxygen Delivery Method Room Air Weight Weight: 310 lb 13.628 oz Body Mass Index (BMI) 39.9 Physical Exam Const alert, oriented x3 and no apparent distress Assessment & Plan Assessment/Plan (1) Primary squamous cell carcinoma of base of tongue: PLAN: Plan PEG and port placement scheduled for today
--- NOTE | 2024-07-02 09:48 | PRE.ANES_ITS ---
ASA Classification* ASA Classification ASA Classification: 3 Assessment & Plan Anesthesia* Anesthesia Assessment Anesthesia Assessment: Discussed sedation and/or anesthesia options, risks, benefits, and alternatives with patient/parents/legal guardian/POA. Questions invited. The patient/parents/legal guardian/POA seems to understand and agrees to proceed with anesthesia plan. Reviewed the physical assessment, medical history, allergy history and patient home medications list prior to surgery/procedure/anesthetic and documented any changes. Performed airway and anesthesia risk assessments. Anesthesia Type Anesthesia Type: General History Source History Obtained from:: Patient and Chart Anesthesia Focused Assessment* Temperature: 98.9 F Pulse Rate: 82 Blood Pressure: 161/69 Respiratory Rate: 18 Pulse Ox: 94 Oxygen Delivery Method: Room Air Airway Assessment Mouth opens: >3 cm Mallampati Score: IV Teeth Condition: Missing (Patient is edentulous.) Neck Range of motion (ROM): Full ROM Focused Labs Anesthesia Preop lab: CBC WBC 9.2 K/mm3 (4.4-11.0) 01/07/24 11:10 01/07/24 RBC 5.15 M/mm3 (4.6-6.2) 01/07/24 11:10 01/07/24 Hgb 14.9 g/dL (13.0-16.5) 01/07/24 11:10 01/07/24 Hct 47.9 % (40-54) 01/07/24 11:10 01/07/24 Plt Count 168 K/mm3 (150-450) 01/07/24 11:10 01/07/24 CHEMISTRY Potassium 4.1 mmol/L (3.5-5.1) 01/07/24 11:10 01/07/24 Sodium 137 mmol/L (136-145) 01/07/24 11:10 01/07/24 BUN 21 mg/dL (7-18) H 01/07/24 11:10 01/07/24 Creatinine 1.24 mg/dL (0.70-1.30) 01/07/24 11:10 01/07/24 Glucose 239 mg/dL (74-106) H 01/07/24 11:10 01/07/24 TSH 1.290 uIU/mL (0.358-3.740) 01/07/24 11:12/23 COAG PT 13.2 SECONDS (11.7-14.9) 05/15/22 07:42 Pre-Assessment Diagnosis/Proposed Procedure Planned Operative Procedure(s): (L) Insertion, Vascular Port & peg tube placement Anesthesia History Anesthesia History - online health and fitness coach: Anesthesia History - online health and fitness coach Hx Hospitalization No 06/22/24 17:28 Any Problems With Anesthesia No 06/22/24 17:28 Cholinesterase deficiency No 06/22/24 17:28 You/Your Family Experience No 06/22/24 17:28 fever (hyperthermia) with Relationship Recent Exposure to Contagious No 07/02/24 08:54 Disease Does patient have nerve No 06/22/24 17:28 stimulator Patient instructed to have device shut off --Does patient have Pacemaker No 07/02/24 08:54 or ICD? When Was Last Pacemaker Check QUESTION #4 FULL TEXT: You/Your Family Experience fever (hyperthermia) with Anesthesia Last Oral Intake Last Oral intake: Last Oral Intake NPO since 07:10 07/02/24 08:54 Meds taken in AM with sips of water? Meds patient instructed to take am of surgery Any additional information?: Yes NPO since: 07:10 (Patient water at 7:10 AM.) PONV PONV - online health and fitness coach: PONV - online health and fitness coach Female No 06/22/24 17:28 HX of Motion Sickness No 06/22/24 17:28 HX of N/V After Surgery No 06/22/24 17:28 Non-Smoker Yes 06/22/24 17:28 Duration of Surgery greater Yes 06/22/24 17:28 than 60 minutes Number of Risk Factors 2 06/22/24 17:28 PONV Score Moderate Risk 06/22/24 17:28 Height & Weight Height & Weight: Anesthesia: Height & Weight Height 6 ft 2 in 07/02/24 08:54 Weight: 141 kg 07/02/24 08:54 Body Mass Index (BMI) 39.9 07/02/24 08:54 Respiratory Assessment Respiratory Assessment - online health and fitness coach: Respiratory Tract Infection Hx - online health and fitness coach Hx Respiratory Tract Infection No 06/22/24 17:28 STOP Sleep Apnea STOP Sleep Apnea - online health and fitness coach: STOP Sleep Apnea - online health and fitness coach Hx Hypertension Yes: PER PT , CONTROLLED ON 06/22/24 17:28 MEDS Hx Sleep Apnea Yes 06/22/24 17:28 CPAP Yes 06/22/24 17:28 BIPAP No 06/22/24 17:28 Do you snore loudly (louder than talking or can be heard Do you often feel tired/ fatigued/ sleepy during daytime? Has anyone observed you stop breathing during sleep? STOP Results Positive 06/22/24 17:28 QUESTION #5 FULL TEXT : Do you snore loudly (louder than talking or can be heard through closed doors)? Tobacco Use History Tobacco Use History - online health and fitness coach: Tobacco Use History - online health and fitness coach Tobacco Use Smoking Status Former smoker 06/22/24 17:28 Hx Tobacco Use No 06/22/24 17:28 Years Smoking Packs Smoked per Day Smoking Cessation Date was Yes - quit smoking within 15 06/22/24 17:28 within the last 15 years years Hx Smoking Cessation Date 05/05/19 06/22/24 17:28 Hx Smoking Cessation Counseling Hematologic Medial History Hematologic Hx - online health and fitness coach: Hematologic Medical Hx - phys therapist Hx of Blood Transfusion No 06/22/24 17:28 Hx of Transfusion in last 3 No 06/22/24 17:28 Months Date of Last Transfusion (if within last 3 months) Ever experience any problems No 06/22/24 17:28 with transfusion(s)? Specify any problems Hx of Preganancy in last 3 N/A 06/22/24 17:28 Months Nurse Filling Out Transfusion MGRIFFITH 06/22/24 17:28 & Questions: Date: 06/22/24 06/22/24 17:28 Time: 17:30 06/22/24 17:28 Patient unable to answer at this time (ie. confused, unrespo /Reproduction History /Reproductive History - online health and fitness coach: /Reproductive Hx- online health and fitness coach Hx Now Gestational Age (in weeks): EDC: Hx Hx Para Hx Section SAB Active Medications Active Medications: Current Medications Generic Name Dose Route Start Last Admin Trade Name Freq PRN Reason Stop Dose Admin Cefazolin Sodium 3 gm/ N/A 30 mls @ 600 mls/hr 07/02/24 11:30 IV 07/02/24 11:32 PREOP ONE Sodium Chloride 1,000 mls @ 15 mls/hr 07/02/24 09:50 IV .Q48H [facility] Medical History Encounter for education Wears glasses Edentulous High cholesterol Injury of head and neck History of hiatal hernia CPAP (continuous positive airway pressure) dependence Shortness of breath on exertion Former smoker History of edema History of echocardiogram COPD (chronic obstructive pulmonary disease) Tongue cancer Hyperglycemia Essential hypertension Hypoxia Saddle pulmonary embolus Home Medications ?Medication ?Instructions ?Recorded ?Last Taken ?Type atorvastatin 40 mg tablet 40 mg PO QHS 05/04/19 History cholecalciferol (vitamin D3) 25 1,000 unit PO DAILY foster pplement 05/04/19 05/04/19 History mcg (1,000 unit) tablet rivaroxaban 15 mg tablet 20 mg PO QHS 11/30/21 History citalopram 20 mg tablet (Celexa) 20 mg PO QHS 05/08/22 Unknown History albuterol sulfate 90 mcg/actuation 2 puff inhalation Q 4H PRN 07/31/23 Unknown Rx aerosol inhaler shortness of breath or wheez ing #1 ea budesonide 160 mcg-glycopyr 9 2 inh inhalation BID #10 .7 grams 07/31/23 Unknown Rx mcg-formot 4.8 mcg/actuation HFA inhaler (Breztri Aerosphere) cetirizine 10 mg capsule (Zyrtec) 10 mg PO DAILY PRN a llergy symptoms 07/31/23 Unknown History fluticasone furoate 27.5 2 spray intranasal DAILY PRN 07/31/23 Unknown History mcg/actuation nasal allergy symptoms spray,suspension (Flonase Sensimist) hydrochlorothiazide 12.5 mg tablet 12.5 mg PO QHS 11/15 Unknown History valsartan 320 mg tablet 320 mg PO QHS 07/31/23 Unkno wn History acetaminophen 500 mg capsule 500 mg PO Q6H PRN pain 07/01/24 History acetaminophen 300 mg-codeine 30 mg 1 - 2 tab PO Q6H MN N PRN pain 06/22/24 Unknown History tablet ibuprofen 600 mg tablet 600 mg PO Q6H PRN PRN pain 0 06/22/24 Unknown History lidocaine-prilocaine 2.5 %-2.5 % 1 applic topical ONCE PRN port 06/29/24 Unknown Rx topical cream access 30 days #30 grams ondansetron 8 mg disintegrating 8 mg PO Q8H PRN nausea and 06/29/24 Unknown Rx tablet vomiting #30 tabs Allergy/AdvReac Type Severity Reaction Status Date / Time Sulfa (Sulfonamide Allergy Rash Verified 07/02/24 08:52 Antibiotics) Family History Father Heart disease Mother Heart disease Lung disease Grandmother Cancer Grandfather Cancer Other Diabetes Surgical History History of surgery History of esophagogastroduodenoscopy (EGD) History of colonoscopy History of appendectomy History of tonsillectomy Cataracts, both eyes H/O parotidectomy Social History Smoking Status: Former smoker how long ago did patient quit smokin second hand exposure: Yes Review of Systems (Anesthesia) ROS Narrative System reviewed and no additional complaints, except as documented.
[2024-07-02] MEDS: 0.9% Normal Saline (1000mL) 1,000 ML 15 ML IV (09:51)
[2024-07-02] MEDS: Cefazolin 3 GM in Syringe 1 EACH IV (11:00)
[2024-07-02] MEDS: Lidocaine 1% /Epi 1:100 (20ml) 20 ML Vial (11:47)
[2024-07-02] MEDS: 0.9% Normal Saline (Pres. free 10 ML Vial (11:47)
--- NOTE | 2024-07-02 12:29 | EX.PCM.DISCH ---
Discharge Instructions Diet Discharge Diet: Light diet - advance as tolerated Activity Discharge Activity: Return to Normal Activity May shower in (days): 1 Dressing / Incision Call your doctor if your incision/area has: Continuous Slow Oozing, Sudden Increased Bleeding, Increased Pain/ Swelling, Increased Redness, Foul Smelling Discharge and Swelling at the incision site Call your doctor if you observe: Fever of 101 or Higher Remove Dressing in: 3 days Cleanse incision/area with: Soap & Water Follow Up Care Please Follow Up With: Daniel Sánchez MD When: as needed Test Results: Test results from this visit will be discussed in further detail at your follow-up appointment, if applicable. Discharge Plan Admission Primary Reason for Your Visit: Mediport/PEG insertion Attending Provider: Daniel Sánchez Primary Care Provider: Bulmaro Curtis Chi Instructions Print Language: [place] Island[place] Discharge Orders/Prescriptions Prescriptions: New oxycodone-acetaminophen [Percocet] 5-325 mg tablet 1 tab PO Q8H PRN (Reason: pain) 3 Days Qty: 7 0RF Continued rivaroxaban 15 mg tablet 20 mg PO QHS Patient Comments: LAST DAY 06/28/24 FOR SURGERY ON 07/02/24 Rx Instructions: must administer with evening meal citalopram [Celexa] 20 mg tablet 20 mg PO QHS valsartan 320 mg tablet 320 mg PO QHS hydrochlorothiazide 12.5 mg tablet 12.5 mg PO QHS Zyrtec 10 mg capsule 10 mg PO DAILY PRN (Reason: allergy symptoms) Flonase Sensimist 27.5 mcg/actuation spray,suspension 2 spray intranasal DAILY PRN (Reason: allergy symptoms) Rx Instructions: into each nostril albuterol sulfate 90 mcg/actuation HFA aerosol inhaler 2 puff inhalation Q4H PRN (Reason: shortness of breath or wheezing) Qty: 1 6RF Rx Instructions: administer with spacer Breztri Aerosphere 160-9-4.8 mcg/actuation HFA aerosol inhaler 2 inh inhalation BID Qty: 10.7 6RF acetaminophen 500 mg capsule 500 mg PO Q6H PRN (Reason: pain) ondansetron 8 mg tablet,disintegrating 8 mg PO Q8H PRN (Reason: nausea and vomiting) Qty: 30 1RF lidocaine-prilocaine 2.5-2.5 % cream 1 applic topical ONCE PRN (Reason: port access) 30 Days Qty: 30 2RF atorvastatin 40 MG tablet 40 mg PO QHS cholecalciferol (vitamin D3) 1,000 UNIT tablet 1,000 unit PO DAILY acetaminophen-codeine 300-30 mg tablet 1 - 2 tab PO Q6H PRN PRN (Reason: pain) ibuprofen 600 mg tablet 600 mg PO Q6H PRN PRN (Reason: pain) Referrals / Follow Up: Bulmaro Curtis Chi, MD [Primary Care Provider] - Disposition Disposition (needs filled in before D/C Order can be placed): Home, Self Care
--- NOTE | 2024-07-02 12:32 | PCM.POST.ANE ---
Anesthesia: Postop Eval I Current Vital Signs Temperature: 97.4 F Pulse Rate: 72 Blood Pressure: 159/79 Respiratory Rate: 18 Pulse Ox: 93 Oxygen Delivery Method: Simple Mask Oxygen Flow Rate (L/min): 8 Assessment Airway patent: Yes Spontaneous unlabored respirations: Yes Mental status: Awake nausea: No Vomiting: No Anesthesia Complication: No Fluid Hydration Crystalloid volume administer (ml): 800 Total IV fluid infused: 800 Progress Note Anesthesia document: Postop Eval 1 completed: No
--- NOTE | 2024-07-02 12:33 | OP.PCM_ITS ---
Problems Associated Problem List Diagnoses (1) Primary squamous cell carcinoma of base of tongue: Multi Select Codes Respiratory/Cardiovascular Resp/Cardiovascular CPT Codes: 54742 Insert tunneled cv cath Digestive Digestive CPT Codes: [address] gastrostomy tube Operative Report (Standard) Operative Information Date of Procedure: 07/02/24 Pre-Operative Diagnosis: Tongue cancer Post-Operative Diagnosis: Same Surgery/Procedure Performed: 1. Left subclavian Mediport placement with C arm 2. EGD 3. Percutaneous endoscopic gastrostomy tube placement (PEG) district resource officer: No Type of Anesthesia: General and Local RN Documented Start/Stop Times: Operation Date: 07/02/24 10:45 Case Time Into Pre-Op 07/02/24 08:37 Anesthesia Start 07/02/24 11:57 Into Room 07/02/24 11:57 Procedure Start 07/02/24 12:01 Procedure End 07/02/24 12:15 Anesthesia End 07/02/24 12:26 Out of Room 07/02/24 12:26 Procedure Start Time: 12:01 Procedure Stop Time: 12:15 Select all DRAINS/GRAFTS/IMPLANTS that apply: Implanted device Implanted device details: 8 [place] PowerPort Estimated Blood Loss: 5 mL Specimen collected: No Description of surgery: The patient is a 73-year-old male with a recently discovered squamous cell carcinoma of the tongue. He is to undergo chemotherapy and radiation therapy as part of his treatment. His oncology team is requested Mediport placement as well as PEG tube placement. I saw him in the office to discuss this. We discussed the details of the planned procedure and he wishes to proceed. The patient was brought the operating room today following informed consent. He was placed supine on the operative table with arms outstretched on arm boards. General endotracheal anesthesia was induced. Once adequately anesthetized his arms were placed on arm boards at his side. An axillary roll was placed between the shoulder blades. The neck and chest regions were prepped and draped in the usual sterile manner. I was able to gain access to the left subclavian vein using the supplied needle and syringe. Prior to doing so local anesthetic was injected into this area. I was able to gain access to the left subclavian vein on the first pass. The blood return was a dark red nonpulsatile venous appearing blood. Guidewire was then threaded through the aperture and the needle. The guidewire was then advanced and then secured to the drapes using curved hemostat. I then created a small pocket to accommodate the port hub. This area was injected with local anesthetic. A 15 blade was then used to make a skin incision. Bovie electrocautery was then used dissect down through subtendinous tissues down to the level of the chest wall. At this level a subcutaneous pocket was then created. Tubing was then tunneled into the larger incision and then brought up and out through a small incision at the entry point of the guidewire. The tubing was then trimmed to about 23 cm. This was then attached to the port hub. The hub was then affixed to the chest wall using Prolene suture x 2. The dilator and tear-away sheath were then threaded over the guidewire. The guidewire and dilator were then removed thus leaving the sheath in place. The free end of the tubing was then threaded down the sheath. The sheath was then extracted while the tubing was advanced. Initially there was some degree of kink to the tubing near the skin. I was then able to straighten this out. This was confirmed with C arm. The port was then tested with injectable saline. It leeanna and flushed easily once the tubing was straightened out. It was then flushed with heparin. The incision was then closed using 3-0 Vicryl and 5-0 Vicryl. Skin glue was applied as dressing along with sterile 2 by twos and a large Tegaderm. He tolerated this portion of the procedure well. He was then reprepped for EGD/PEG. Hair of the abdomen was then trimmed. EGD scope was then inserted per mouth and was advanced into the stomach. I was able to get into the first part of the duodenum. There were some small benign- appearing polyps. The stomach itself appeared grossly normal. I was able to select a suitable location for the PEG placement. I had good transillumination in the abdominal wall seemed relatively thin in this area. Local anesthetic was then injected. I was able to see the injection needle entering into the stomach and was visible on EGD. A #11 blade was then used to make a small skin incision. The supplied needle and sheath were then inserted under direct visualization. This was then grasped using a snare. The needle was then removed and was replaced by the wire. The wire was then grasped with the snare. Next the EGD scope was then removed. The wire was left in place. This was attached to the PEG tube this was then brought to out through the abdominal wall. It was secured at about 3 and half centimeters. The bumper was then applied along with a dressing. Patient tolerated this well. I reinserted the E GD scope and confirmed good positioning of the bumper against the anterior abdominal wall/stomach. An abdominal binder was placed. He was awakened anesthesia and taken to to recovery in good condition. Surgical Findings: See operative note Complications Complications: No Admit VTE Documentation VTE Present on Admission: No VTE Mechan Device Prophylaxis: SCD's VTE Pharm Prophylaxis ordered?: No Reason prophylaxis not ordered: Treatment Not Indicated
--- NOTE | 2024-07-02 12:45 | RAD_ITS ---
EXAM: AP UPRIGHT PORTABLE CHEST CLINICAL HISTORY: CHECKING FOR PORT PLACEMENT COMPARISON: NO RELEVANT PRIOR. TECHNIQUE: SINGLE AP UPRIGHT FRONTAL PROJECTION. FINDINGS: A left-sided MediPort is noted. Port and catheter placement adequately placed. Lungs: Lungs clear of pneumonia and congestion. Suspected mild subsegmental atelectasis, left lower lung. Old healed granulomatous changes. Pleura: No pleural effusions, thickening, or pneumothorax. Heart: Normal in size and configuration. Mediastinum/Mee: Unremarkable. Great vessels: Unremarkable. Bones/soft tissues: Unremarkable. RAD/CXR for Line Placement IMPRESSION: 1. Satisfactory placement of left MediPort catheter. 2. No active cardiopulmonary disease. Reading Location: [place] [id number]
--- NOTE | 2024-07-02 12:59 | POSTOPAN2_ITS ---
Anesthesia Postop Eval I Sum Postop Eval Completion status Anesthesia document: Postop Eval 1 completed: No Anesthesia Postop Eval I Summary Anesthesia Postop Eval I Summary: Anesthesia Postop Eval I: Assessment Summary Airway patent Yes 07/02/24 12:32 HELICOPTER PILOT INSTRUCTOR.MEDM Spontaneous unlabored Yes 07/02/24 12:32 HELICOPTER PILOT INSTRUCTOR.MEDM respirations Mental status Awake 07/02/24 12:32 HELICOPTER PILOT INSTRUCTOR.MEDM nausea No 07/02/24 12:32 HELICOPTER PILOT INSTRUCTOR.MEDM Vomiting No 07/02/24 12:32 HELICOPTER PILOT INSTRUCTOR.MEDM Anesthesia Postop Eval I: Fluid Summary Crystalloid volume administer 800 07/02/24 12:32 HELICOPTER PILOT INSTRUCTOR.MEDM (ml) Colloids volume administered ( ml) Blood Product volume administered (ml) Total IV fluid infused 800 07/02/24 12:32 HELICOPTER PILOT INSTRUCTOR.MEDM Anesthesia Postop Eval I: Summary Notes Anesthesia Complication No 07/02/24 12:32 HELICOPTER PILOT INSTRUCTOR.MEDM Anesthesia Complication Comment: Post-operative progress note Anesthesia: Postop Eval II Evaluation Mental status: Awake and Calm Pain Level: 1 nausea: No Vomiting: No Complications Anesthesia Complication: No
--- NOTE | 2024-07-02 12:59 | PCM.POSTANE2 ---
Anesthesia Postop Eval I Sum Postop Eval Completion status Anesthesia document: Postop Eval 1 completed: No Anesthesia Postop Eval I Summary Anesthesia Postop Eval I Summary: Anesthesia Postop Eval I: Assessment Summary Airway patent Yes 07/02/24 12:32 FAGOT MAKER.MEDM Spontaneous unlabored Yes 07/02/24 12:32 FAGOT MAKER.MEDM respirations Mental status Awake 07/02/24 12:32 FAGOT MAKER.MEDM nausea No 07/02/24 12:32 FAGOT MAKER.MEDM Vomiting No 07/02/24 12:32 FAGOT MAKER.MEDM Anesthesia Postop Eval I: Fluid Summary Crystalloid volume administer 800 07/02/24 12:32 FAGOT MAKER.MEDM (ml) Colloids volume administered ( ml) Blood Product volume administered (ml) Total IV fluid infused 800 07/02/24 12:32 FAGOT MAKER.MEDM Anesthesia Postop Eval I: Summary Notes Anesthesia Complication No 07/02/24 12:32 FAGOT MAKER.MEDM Anesthesia Complication Comment: Post-operative progress note Anesthesia: Postop Eval II Evaluation Mental status: Awake and Calm Pain Level: 1 nausea: No Vomiting: No Complications Anesthesia Complication: No
--- NOTE | 2024-07-02 13:19 | EKG12_ITS ---
Test Reason : POST OP Blood Pressure : */* mmHG Vent. Rate : 57 BPM Atrial Rate : 76 BPM P-R Int : * ms QRS Dur : 98 ms QT Int : 434 ms P-R-T Axes : 93 63 55 degrees QTcB Int : 422 ms Sinus rhythm with 2nd degree A-V block (Mobitz I) Abnormal ECG When compared with ECG of 04-May-2019 18:18, Sinus rhythm is now with 2nd degree A-V block (Mobitz I) Vent. rate has decreased by [address] no longer depressed in Anterior leads Confirmed by MISTY ALVARENGA, MAXIMILIANO ([id number]), map editor BEA LOVETT ([id number]) on 07/03/2024 2:00:01 PM Referred By: Daniel Sánchez Confirmed By: MAXIMILIANO JAY MD
[2024-07-02] MEDS: Ipratropium/Albuterol Sulfate 3 ML AMPUL.NEB INHALATION (14:09)
== END 2024-07-02 14:59 | disposition home or self-care (01) ==
LOC: SDC 08:23 → AC 08:31
PROVIDERS: PCP Family Medicine Geriatric Medicine; Referring Provider Surgery; Visit Provider Surgery
PROC: (CPT 36561; principal; 2024-07-02 09:45)
PROC: 0DJ08ZZ Inspection of Upper Intestinal Tract, Via Natural or Artificial Opening Endoscopic (ICD-10-PCS; CPT 43235; principal; 2024-07-02 10:40)
DX: Z45.2 Encounter for adjustment and management of vascular access device (principal); C01 Malignant neoplasm of base of tongue; J44.9 Chronic obstructive pulmonary disease, unspecified; I10 Essential (primary) hypertension; E78.00 Pure hypercholesterolemia, unspecified; Z79.01 Long term (current) use of anticoagulants; Z79.899 Other long term (current) drug therapy; Z87.891 Personal history of nicotine dependence
CPT/HCPCS: 36561; 43246; 00532; 71045; 77001; 93005; A4216; C1788; J2405

== ENCOUNTER 2024-07-06 13:42 | Outpatient (CLI) | payer MEDICARE, OTHER, SELFPAY ==
--- NOTE | 2024-07-06 14:08 | RAD_ITS ---
EXAM: PA upright radiograph of the chest CLINICAL HISTORY: Port placement COMPARISON: Chest x-ray dated 07/03/1999 TECHNIQUE: PA upright radiograph of the chest was performed. FINDINGS: Again noted is a left subclavian MediPort. The tip is located in the region of the distal superior vena cava. This is a similar finding when compared to the prior study. Again noted is parenchymal scarring of the left lower lobe. Small 1-2 mm granulomas are again identified. There is no atelectasis, consolidation, effusion or pneumonic infiltrate in either lung. Heart size and configuration within normal limits. Pulmonary vasculature and hilar structures are unremarkable. Arteriosclerotic vascular disease of the aorta is noted. Bony thorax appears grossly unremarkable. RAD/CXR for Line Placement IMPRESSION: The left subclavian MediPort tip appears to be in satisfactory position as desc ribed above. Arteriosclerotic vascular disease of the aorta. Parenchymal scarring of the left lower lobe. Reading Location: [id number]
--- NOTE | 2024-07-06 14:16 | RAD.NOTE ---
Port is potentially kinked. Unable to do port-a-gram because no fluid is able to be pushed into port. Upon attempting to flush, met with immediate resistance. Pt reports getting port in on , today was supposed to be first day of being accessed. CHANDLER Payne called DONTA Vann to update situation, Elicia would like chest xray taken for line placement. She will then discuss results with Dr. Sánchez and patient regarding a plan moving forward.
== END 2024-07-06 23:59 | disposition home or self-care (01) ==
LOC: RAD 13:43
PROVIDERS: PCP Family Medicine Geriatric Medicine; Referring Provider Physician Assistant; Visit Provider Physician Assistant
DX: Z12.2 Encounter for screening for malignant neoplasm of respiratory organs (principal); F17.210 Nicotine dependence, cigarettes, uncomplicated
CPT/HCPCS: 71045

== ENCOUNTER 2024-07-09 09:13 | Day surgery (SDC) | payer MEDICARE, OTHER, SELFPAY ==
[2024-07-09] VITALS (8 sets, daily range): BP systolic 131–172; BP diastolic 65–80; PULSE 76–81; RESP 16–18; TEMP 36.1–36.3; O2SAT 94–96; BMI 38.7
--- NOTE | 2024-07-09 10:28 | PCM.PRE.AN2 ---
ASA Classification* ASA Classification ASA Classification: 3 Assessment & Plan Anesthesia* Anesthesia Assessment Anesthesia Assessment: Discussed sedation and/or anesthesia options, risks, benefits, and alternatives with patient/parents/legal guardian/POA. Questions invited. The patient/parents/legal guardian/POA seems to understand and agrees to proceed with anesthesia plan. Reviewed the physical assessment, medical history, allergy history and patient home medications list prior to surgery/procedure/anesthetic and documented any changes. Performed airway and anesthesia risk assessments. Anesthesia Type Anesthesia Type: General History Source History Obtained from:: Patient and Chart Anesthesia Focused Assessment* Temperature: 97.0 F Pulse Rate: 76 Blood Pressure: 131/68 Respiratory Rate: 18 Pulse Ox: 96 Oxygen Delivery Method: Room Air Airway Assessment Mouth opens: >3 cm Mallampati Score: III Teeth Condition: Missing (Patient is edentulous.) Neck Range of motion (ROM): Limited ROM (Somewhat decreased extension) Focused Labs Anesthesia Preop lab: CBC WBC 8.5 K/mm3 (4.4-11.0) 07/06/24 08:07 07/06/24 RBC 4.74 M/mm3 (4.6-6.2) 07/06/24 08:07 07/06/24 Hgb 14.1 g/dL (13.0-16.5) 07/06/24 08:07 07/06/24 Hct 43.2 % (40-54) 07/06/24 08:07 07/06/24 Plt Count 162 K/mm3 (150-450) 07/06/24 08:07 07/06/24 CHEMISTRY Potassium 4.3 mmol/L (3.3-5.1) 07/06/24 08:07 07/06/24 Sodium 138 mmol/L (133-145) 07/06/24 08:07 07/06/24 Magnesium 1.9 mg/dL (1.5-2.2) 07/06/24 08:07 07/06/24 Phosphorus 3.0 mg/dL (2.7-4.5) 07/06/24 08:07 07/06/24 BUN 20 mg/dL (4-19) H 07/06/24 08:07 07/06/24 Creatinine 1.28 mg/dL (0.70-1.20) H 07/06/24 08:07 07/06/24 Glucose 214 mg/dL (70-99) H 07/06/24 08:07 07/06/24 TSH 1.290 uIU/mL (0.358-3.740) 01/07/24 11:10 01/07/24 COAG PT 13.2 SECONDS (11.7-14.9) 05/15/22 07:42 05/15/22 Pre-Assessment Diagnosis/Proposed Procedure Planned Operative Procedure(s): REVISION OF LEFT CHEST MEDIPORT Anesthesia History 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 When Was Last Pacemaker Check QUESTION #4 FULL TEXT: You/Your Family Experience fever (hyperthermia) with Anesthesia Last Oral Intake Last Oral intake: Last Oral Intake NPO since 08:15 07/09/24 10:02 Meds taken in AM with sips of Yes 07/09/24 10:02 water? Meds patient instructed to take am of surgery Any additional information?: Yes NPO since: 08:15 (Patient had black coffee at 8:15 AM.) PONV PONV - x ray service technician: PONV - x ray service technician Female No 07/07/24 10:45 HX of Motion Sickness No 07/07/24 10:45 HX of N/V After Surgery No 07/07/24 10:45 Non-Smoker Yes 07/07/24 10:45 Duration of Surgery greater No 07/07/24 10:45 than 60 minutes Number of Risk Factors 1 07/07/24 10:45 PONV Score Low Risk 07/07/24 10:45 Height & Weight Height & Weight: Anesthesia: Height & Weight Height 6 ft 2 in 07/09/24 10:02 Weight: 137 kg 07/09/24 10:02 Body Mass Index (BMI) 38.7 07/09/24 10:02 Respiratory Assessment Respiratory Assessment - x ray service technician: Respiratory Tract Infection Hx - x ray service technician Hx Respiratory Tract Infection No 07/07/24 10:45 STOP Sleep Apnea STOP Sleep Apnea - x ray service technician: STOP Sleep Apnea - x ray service technician Hx Hypertension Yes 07/07/24 10:45 Hx Sleep Apnea Yes 07/07/24 10:45 CPAP Yes 07/07/24 10:45 BIPAP No 07/07/24 10:45 Do you snore loudly (louder than talking or can be heard Do you often feel tired/ fatigued/ sleepy during daytime? Has anyone observed you stop breathing during sleep? STOP Results Positive 07/07/24 10:45 QUESTION #5 FULL TEXT : Do you snore loudly (louder than talking or can be heard through closed doors)? 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 Specify any problems Hx of Preganancy in last 3 N/A 07/07/24 10:45 Months Nurse Filling Out Transfusion DSCHRIBER 07/07/24 10:45 & Questions: Date: 07/07/24 07/07/24 10:45 Time: 10:46 07/07/24 10:45 Patient unable to answer at this time (ie. confused, unrespo /Reproduction History /Reproductive History - x ray service technician: /Reproductive Hx- x ray service technician Hx Now No 07/07/24 10:45 Gestational Age (in weeks): EDC: Hx Hx Para Hx Section SAB No 07/07/24 10:45 Active Medications Active Medications: Current Medications Generic Name Dose Route Start Last Admin Trade Name Freq PRN Reason Stop Dose Admin Cefazolin Sodium 3 gm/ N/A 30 mls @ 600 mls/hr 07/09/24 11:30 IV 07/09/24 11:32 INTRAOP ONE PFSH Medical History Encounter for education Wears glasses Edentulous High cholesterol Injury of head and neck History of hiatal hernia CPAP (continuous positive airway pressure) dependence Shortness of breath on exertion Former smoker History of edema History of echocardiogram COPD (chronic obstructive pulmonary disease) Tongue cancer Hyperglycemia Essential hypertension Hypoxia Saddle pulmonary embolus Home Medications ?Medication ?Instructions ?Recorded ?Last Taken ?Type atorvastatin 40 mg tablet 40 mg PO QHS 05/04/19 05/03/19 History cholecalciferol (vitamin D3) 25 1,000 unit PO DAILY supplement 05/04/19 05/04/19 History mcg (1,000 unit) tablet rivaroxaban 15 mg tablet 20 mg PO QHS 11/30/21 07/05/24 History citalopram 20 mg tablet (Celexa) 20 mg PO QHS 05/08/22 Unknown History budesonide 160 mcg-glycopyr 9 2 inh inhalation BID #10.7 grams 07/31/23 Unknown Rx mcg-formot 4.8 mcg/actuation HFA inhaler (Breztri Aerosphere) cetirizine 10 mg capsule (Zyrtec) 10 mg PO DAILY PRN allergy symptoms 07/31/23 Unknown History fluticasone furoate 27.5 2 spray intranasal DAILY PRN 07/31/23 Unknown History mcg/actuation nasal allergy symptoms spray,suspension (Flonase Sensimist) hydrochlorothiazide 12.5 mg tablet 12.5 mg PO QHS 07/31/23 Unknown History valsartan 320 mg tablet 320 mg PO QHS 07/31/23 Unknown History acetaminophen 500 mg capsule 500 mg PO Q6H PRN pain 05/20/24 07/01/24 History acetaminophen 300 mg-codeine 30 mg 1 - 2 tab PO Q6H PRN PRN pain 06/22/24 Unknown History tablet ibuprofen 600 mg tablet 600 mg PO Q6H PRN PRN pain 06/22/24 Unknown History lidocaine-prilocaine 2.5 %-2.5 % 1 applic topical ONCE PRN port 06/29/24 Unknown Rx topical cream access 30 days #30 grams ondansetron 8 mg disintegrating 8 mg PO Q8H PRN nausea and 06/29/24 Unknown Rx tablet vomiting #30 tabs oxycodone-acetaminophen 5 mg-325 1 tab PO Q8H PRN pain 3 days #7 07/02/24 Unknown Rx mg tablet (Percocet) tabs albuterol sulfate 90 mcg/actuation 2 puff inhalation Q4H PRN 07/07/24 Unknown Rx aerosol inhaler shortness of breath or wheezing #1 ea Allergy/AdvReac Type Severity Reaction Status Date / Time Sulfa (Sulfonamide Allergy Rash Verified 07/09/24 10:00 Antibiotics) Family History Father Heart disease Mother Heart disease Lung disease Grandmother Cancer Grandfather Cancer Other Diabetes Surgical History History of vascular access device History of surgery History of esophagogastroduodenoscopy (EGD) History of colonoscopy History of appendectomy History of tonsillectomy Cataracts, both eyes H/O parotidectomy Social History Smoking Status: Former smoker how long ago did patient quit smokin second hand exposure: Yes Review of Systems (Anesthesia) ROS Narrative System reviewed and no additional complaints, except as documented. Physical Exam Resp clear to auscultation bilaterally
--- NOTE | 2024-07-09 10:54 | PCM.HP.STD ---
HPI - General General Date of Admission: 07/09/24 Date of Service: 07/09/24 Chief Complaint: non functional medport HPI Narrative ROBERT RON, is a 73 M who presents for revision of medport. It was placed about a week ago but oncology having issues with it functioning properly. xray seems to suggest a possible kink in tubing [facility] Medical History Encounter for education Wears glasses Edentulous High cholesterol Injury of head and neck History of hiatal hernia CPAP (continuous positive airway pressure) dependence Shortness of breath on exertion Former smoker History of edema History of echocardiogram COPD (chronic obstructive pulmonary disease) Tongue cancer Hyperglycemia Essential hypertension Hypoxia Saddle pulmonary embolus Home Medications ?Medication ?Instructions ?Recorded ?Last Taken ?Type atorvastatin 40 mg tablet 40 mg PO QHS 05/04/19 05/03/19 History cholecalciferol (vitamin D3) 25 1,000 unit PO DAILY supplement 05/04/19 05/04/19 History mcg (1,000 unit) tablet rivaroxaban 15 mg tablet 20 mg PO QHS 11/30/21 07/05/24 History citalopram 20 mg tablet (Celexa) 20 mg PO QHS 05/08/22 Unknown History budesonide 160 mcg-glycopyr 9 2 inh inhalation BID #10.7 grams 07/31/23 Unknown Rx mcg-formot 4.8 mcg/actuation HFA inhaler (Breztri Aerosphere) cetirizine 10 mg capsule (Zyrtec) 10 mg PO DAILY PRN allergy symptoms 07/31/23 Unknown History fluticasone furoate 27.5 2 spray intranasal DAILY PRN 07/31/23 Unknown History mcg/actuation nasal allergy symptoms spray,suspension (Flonase Sensimist) hydrochlorothiazide 12.5 mg tablet 12.5 mg PO QHS 07/31/23 Unknown History valsartan 320 mg tablet 320 mg PO QHS 07/31/23 Unknown History acetaminophen 500 mg capsule 500 mg PO Q6H PRN pain 05/20/24 07/01/24 History acetaminophen 300 mg-codeine 30 mg 1 - 2 tab PO Q6H PRN PRN pain 06/22/24 Unknown History tablet ibuprofen 600 mg tablet 600 mg PO Q6H PRN PRN pain 06/22/24 Unknown History lidocaine-prilocaine 2.5 %-2.5 % 1 applic topical ONCE PRN port 06/29/24 Unknown Rx topical cream access 30 days #30 grams ondansetron 8 mg disintegrating 8 mg PO Q8H PRN nausea and 06/29/24 Unknown Rx tablet vomiting #30 tabs oxycodone-acetaminophen 5 mg-325 1 tab PO Q8H PRN pain 3 days #7 07/02/24 Unknown Rx mg tablet (Percocet) tabs albuterol sulfate 90 mcg/actuation 2 puff inhalation Q4H PRN 07/07/24 Unknown Rx aerosol inhaler shortness of breath or wheezing #1 ea Allergy/AdvReac Type Severity Reaction Status Date / Time Sulfa (Sulfonamide Allergy Rash Verified 07/09/24 10:00 Antibiotics) Family History Father Heart disease Mother Heart disease Lung disease Grandmother Cancer Grandfather Cancer Other Diabetes Surgical History History of vascular access device History of surgery History of esophagogastroduodenoscopy (EGD) History of colonoscopy History of appendectomy History of tonsillectomy Cataracts, both eyes H/O parotidectomy Social History Smoking Status: Former smoker how long ago did patient quit smokin second hand exposure: Yes Vital Signs Vital Signs Vital Signs: 07/09/24 10:02 07/09/24 10:02 07/09/24 10:37 Temperature 97.0 F L 97.0 F L Temperature Source Temporal Pulse Rate 76 76 Respiratory Rate 18 18 Respiratory Pattern Normal Blood Pressure 131/68 H 131/68 H Blood Pressure Mean 89 Blood Pressure Source Monitor Blood Pressure Position Semi-Fowlers Blood Pressure Location Right Arm Pulse Ox 96 96 Oxygen Delivery Method Room Air Room Air Weight Weight: 302 lb 0.533 oz Body Mass Index (BMI) 38.7 Physical Exam Const alert, oriented x3 and no apparent distress Assessment & Plan Assessment/Plan (1) Encounter for insertion of venous access port: PLAN: Plan plan is to revise or replace port today
[2024-07-09] MEDS: Cefazolin 3 GM in Syringe 15 ML IV (11:15)
[2024-07-09] MEDS: Lidocaine 1% /Epi 1:100 (20ml) 20 ML Vial (11:42)
[2024-07-09] MEDS: Bupivacaine Mpf 0.5% 30 ML VIAL (11:42)
--- NOTE | 2024-07-09 12:07 | DCINST_ITS ---
Discharge Instructions Diet Discharge Diet: Light diet - advance as tolerated Activity Discharge Activity: Return to Normal Activity May shower in (days): 1 Ice area for (Minutes): 30 Dressing / Incision Call your doctor if your incision/area has: Continuous Slow Oozing, Sudden Increased Bleeding, Increased Pain/ Swelling, Increased Redness, Foul Smelling Discharge and Swelling at the incision site Call your doctor if you observe: Fever of 101 or Higher Suture Line Care: Avoid Pulling/Pushing Remove Dressing in: 3 days Cleanse incision/area with: Soap & Water Follow Up Care Please Follow Up With: Daniel Sánchez MD When: as needed Test Results: Test results from this visit will be discussed in further detail at your follow- up appointment, if applicable. Discharge Plan Admission Primary Reason for Your Visit: port revision Attending Provider: Daniel Sánchez Primary Care Provider: Bulmaro Curtis Chi Instructions Print Language: Gambian Discharge Orders/Prescriptions Prescriptions: Continued rivaroxaban 15 mg tablet 20 mg PO QHS Patient Comments: LAST DAY 06/28/24 FOR SURGERY ON 07/02/24 Rx Instructions: must administer with evening meal citalopram [Celexa] 20 mg tablet 20 mg PO QHS valsartan 320 mg tablet 320 mg PO QHS hydrochlorothiazide 12.5 mg tablet 12.5 mg PO QHS Zyrtec 10 mg capsule 10 mg PO DAILY PRN (Reason: allergy symptoms) Flonase Sensimist 27.5 mcg/actuation spray,suspension 2 spray intranasal DAILY PRN (Reason: allergy symptoms) Rx Instructions: into each nostril Breztri Aerosphere 160-9-4.8 mcg/actuation HFA aerosol inhaler 2 inh inhalation BID Qty: 10.7 6RF acetaminophen 500 mg capsule 500 mg PO Q6H PRN (Reason: pain) ondansetron 8 mg tablet,disintegrating 8 mg PO Q8H PRN (Reason: nausea and vomiting) Qty: 30 1RF lidocaine-prilocaine 2.5-2.5 % cream 1 applic topical ONCE PRN (Reason: port access) 30 Days Qty: 30 2RF atorvastatin 40 MG tablet 40 mg PO QHS cholecalciferol (vitamin D3) 1,000 UNIT tablet 1,000 unit PO DAILY acetaminophen-codeine 300-30 mg tablet 1 - 2 tab PO Q6H PRN PRN (Reason: pain) ibuprofen 600 mg tablet 600 mg PO Q6H PRN PRN (Reason: pain) oxycodone-acetaminophen [Percocet] 5-325 mg tablet 1 tab PO Q8H PRN (Reason: pain) 3 Days Qty: 7 0RF albuterol sulfate 90 mcg/actuation HFA aerosol inhaler 2 puff inhalation Q4H PRN (Reason: shortness of breath or wheezing) Qty: 1 6RF Rx Instructions: administer with spacer Referrals / Follow Up: Bulmaro Curtis Chi, MD [Primary Care Provider] - Disposition Disposition (needs filled in before D/C Order can be placed): Home, Self Care
--- NOTE | 2024-07-09 12:15 | RAD_ITS ---
EXAM: Port a catheter repositioning. CLINICAL HISTORY: Nonfunctioning port a catheter. COMPARISON: Comparison is made with prior study dated July 06, 2024. TECHNIQUE: Frontal chest radiograph was performed. FINDINGS: A left-sided port a catheter is seen with the tip in the proximal portion of the left brachiocephalic vein. No obvious kinking in the region of the left axilla. Hyperinflation. RAD/CXR for Line Placement IMPRESSION: A left-sided port a catheter has been placed with the tip in the proximal porti on of the left brachiocephalic vein. Reading Location: [facility]
--- NOTE | 2024-07-09 12:21 | PCM.POST.ANE ---
Anesthesia: Postop Eval I Current Vital Signs Temperature: 97.2 F Pulse Rate: 80 Blood Pressure: 155/78 Respiratory Rate: 16 Pulse Ox: 94 Oxygen Delivery Method: Room Air Assessment Airway patent: Yes Spontaneous unlabored respirations: Yes nausea: No Vomiting: No Anesthesia Complication: No Fluid Hydration Crystalloid volume administer (ml): 500 Total IV fluid infused: 500 Progress Note Anesthesia document: Postop Eval 1 completed: Yes
--- NOTE | 2024-07-09 14:13 | OP.PCM_ITS ---
Problems Associated Problem List Diagnoses (1) Encounter for insertion of venous access port: Procedures Cardiovascular CF Procedures [id number]: [id number] Repair tunneled cv cath Operative Report (Standard) Operative Information Date of Procedure: 07/09/24 Pre-Operative Diagnosis: Nonfunctioning Mediport Post-Operative Diagnosis: Same Surgery/Procedure Performed: Revision of left subclavian Mediport horse trekking guide: No Type of Anesthesia: General and Local RN Documented Start/Stop Times: Operation Date: 07/09/24 11:30 Case Time Into Pre-Op 07/09/24 09:38 Anesthesia Start 07/09/24 11:02 Into Room 07/09/24 11:02 Procedure Start 07/09/24 11:22 Procedure End 07/09/24 11:55 Anesthesia End 07/09/24 12:00 Out of Room 07/09/24 12:00 Into Recovery 07/09/24 12:02 Out of Recovery 07/09/24 12:16 Into Phase II Recovery 07/09/24 12:17 Out of Phase II 07/09/24 13:45 Procedure Start Time: 11:22 Procedure Stop Time: 11:55 Select all DRAINS/GRAFTS/IMPLANTS that apply: None Special Medications: 3 g Ancef IV Estimated Blood Loss: Minimal Specimen collected: No Description of surgery: The patient is a 73-year-old male who was 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 Last week he underwent a PEG tube placement as well as a left subclavian Mediport placement. Both procedures were performed without incident. Patient went to have his first session of therapy and it was noted that his por t was not drawing or flushing appropriately. Oncology contacted our office and we ordered an x-ray and there appeared to be the possibility of a kink in the tubing. We recommended port revision surgery. Patient presented today to have the surgery performed. He was given preoperative antibiotics and was brought to the operating room following informed consent. The left chest and neck were prepped and draped in the usual sterile manner. It did appear that there was a kink just deep to the smaller incision below the clavicle. I opened up the previous incision after injecting local anesthetic. I was able to exteriorized the port hub. I attempted to draw and flush through this port and this was not able to be amenable to drawing or flushing. As I pulled the tubing back further the kink released and this was eventually able to draw and flush easily. I did shorten the tubing by about 5 cm. At this point it was reconnected to the hub which was actually a new hub instead of using the old one. This leeanna and flushed very easily. This was then reaffixed to the chest wall again using Prolene suture. C arm was utilized numerous times through this process and was noted that the kink was now resolved although the port tubing tip was more in the innominate vein. I felt that this was acceptable given the fact that the port was now functioning nicely and we did not have to do a fresh cannulation of the vein. The port was then flushed with heparin flush and the wound was then closed using 3-0 Vicryl and 4-0 Vicryl. Skin glue was then applied. Sterile 2 x 2 and a large OpSite was then applied. He was awakened anesthesia and taken to recovery in good condition Surgical Findings: See operative note Complications Complications: No Admit VTE Documentation VTE Present on Admission: No VTE Mechan Device Prophylaxis: SCD's VTE Pharm Prophylaxis ordered?: No Reason prophylaxis not ordered: Treatment Not Indicated
--- NOTE | 2024-07-09 15:15 | POSTOPAN2_ITS ---
Anesthesia Postop Eval I Sum Postop Eval Completion status Anesthesia document: Postop Eval 1 completed: Yes Anesthesia Postop Eval I Summary Anesthesia Postop Eval I Summary: Anesthesia Postop Eval I: Assessment Summary Airway patent Yes 07/09/24 12:24 LOGISTICS ENGINEERING [email or web address] Spontaneous unlabored Yes 07/09/24 12:24 LOGISTICS ENGINEERING MANAGER.ACAR respirations Mental status nausea No 07/09/24 12:24 LOGISTICS ENGINEERING MANAGER.ACAR Vomiting No 07/09/24 12:24 LOGISTICS ENGINEERING MANAGER.ACAR Anesthesia Postop Eval I: Fluid Summary Crystalloid volume administer 500 07/09/24 12:24 LOGISTICS ENGINEERING MANAGER.ACAR (ml) Colloids volume administered ( ml) Blood Product volume administered (ml) Total IV fluid infused 500 07/09/24 12:24 LOGISTICS ENGINEERING MANAGER.ACAR Anesthesia Postop Eval I: Summary Notes Anesthesia Complication No 07/09/24 12:24 LOGISTICS ENGINEERING MANAGER.ACAR Anesthesia Complication Comment: Post-operative progress note Anesthesia: Postop Eval II Evaluation Mental status: Awake and Calm Pain Level: 0 nausea: No Vomiting: No Complications Anesthesia Complication: No
--- NOTE | 2024-07-09 15:15 | PCM.POSTANE2 ---
Anesthesia Postop Eval I Sum Postop Eval Completion status Anesthesia document: Postop Eval 1 completed: Yes Anesthesia Postop Eval I Summary Anesthesia Postop Eval I Summary: Anesthesia Postop Eval I: Assessment Summary Airway patent Yes 07/09/24 12:24 MOTOR VEHICLE [email or web address] Spontaneous unlabored Yes 07/09/24 12:24 MOTOR VEHICLE TECHNICIAN.ACAR respirations Mental status nausea No 07/09/24 12:24 MOTOR VEHICLE TECHNICIAN.ACAR Vomiting No 07/09/24 12:24 MOTOR VEHICLE TECHNICIAN.ACAR Anesthesia Postop Eval I: Fluid Summary Crystalloid volume administer 500 07/09/24 12:24 MOTOR VEHICLE TECHNICIAN.ACAR (ml) Colloids volume administered ( ml) Blood Product volume administered (ml) Total IV fluid infused 500 07/09/24 12:24 MOTOR VEHICLE TECHNICIAN.ACAR Anesthesia Postop Eval I: Summary Notes Anesthesia Complication No 07/09/24 12:24 MOTOR VEHICLE TECHNICIAN.ACAR Anesthesia Complication Comment: Post-operative progress note Anesthesia: Postop Eval II Evaluation Mental status: Awake and Calm Pain Level: 0 nausea: No Vomiting: No Complications Anesthesia Complication: No
== END 2024-07-09 13:52 | disposition home or self-care (01) ==
LOC: SDC 09:13 → AC 09:15
PROVIDERS: PCP Family Medicine Geriatric Medicine; Referring Provider Surgery; Visit Provider Surgery
PROC: (CPT 36576; principal; 2024-07-09 11:15)
DX: T82.898A Other specified complication of vascular prosthetic devices, implants and grafts, initial encounter (principal); J44.9 Chronic obstructive pulmonary disease, unspecified; Y71.8 Miscellaneous cardiovascular devices associated with adverse incidents, not elsewhere classified; C44.42 Squamous cell carcinoma of skin of scalp and neck; I10 Essential (primary) hypertension; E78.00 Pure hypercholesterolemia, unspecified; Z79.01 Long term (current) use of anticoagulants; Z79.899 Other long term (current) drug therapy; Z86.711 Personal history of pulmonary embolism; Z87.891 Personal history of nicotine dependence
CPT/HCPCS: 36576; 00532; 71045; 77001; A4216; C1788; J2405

== ENCOUNTER → 2024-07-14 | Outpatient (CLI) | payer MEDICARE, OTHER, SELFPAY ==
--- NOTE | 2024-07-14 09:06 | ST.MBS ---
Modified Barium Swallow Patient Information Study Date: 07/14/24 Study Time: 08:00 Direct Billable Minutes: 74 Total Minutes procedure & reportin Diagnosis: Squamous cell carcinoma of base of tongue C01 Referring Physician: Cipriano Layne Reason for Referral: Assess swallow function, assess risk for aspiration, and determine recommendations for least restrictive diet textures and compensatory strategies to improve safety of swallow. Medical History: Other Relevant Medical History/Diagnoses/Surgery: Wears glasses, Edentulous, Injury of head and neck, History of hiatal hernia, CPAP dependence, Shortness of breath on exertion, Former smoker, COPD, Tongue cancer, Hyperglycemia, HTN, Hypoxia, Saddle pulmonary embolus. Surgical Hx significant for Hx of EGD, tonsillectomy, and parotidectomy. See EMR for full PMH. Patient reported having L parotidectomy due to swelling and improper functioning of L parotid gland July 2013. He had his teeth extracted before chemoradiation treatment. He also had mandibular joaquim removed. 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 Treatment began 07/06/2024. PEG tube in place. Dysphagia Hx: BSE completed 07/13/2024 revealing mild oral dysphagia and recommending soft and bite size textures / thin liquids. POC initiated to train pt in oropharyngeal exercises and monitor diet tolerance during chemoradiation treatment for SCC of TB. SUPERVISOR TOWER recommended MBSS to determine baseline swallow function and further assess risk for aspiration. Pt has not yet required use of PEG tube. Current Diet Ordered: Soft and bite size textures / Thin liquids Dentition: Edentulous Mental Status: WNL Respiratory Status: Oxygenating on Room Air Penetration-Aspiration Scale Penetration-Aspiration Scale: OBJECTIVE ASSESSMENT OF SWALLOW FUNCTION (QUANTITATIVE ? PER TRIAL): PENETRATION / ASPIRATION SCALE ([place]): 1 = does not enter airway 2 = enters airway/above vocal folds/ejected 3 = enters airway/above vocal folds/not ejected 4 = enters airway/contacts vocal folds/ejected 5 = enters airway/contacts vocal folds/not ejected 6 = enters airway/below vocal folds/ejected 7 = enters airway/below vocal folds/not ejected despite effort 8 = enters airway/below vocal folds/no effort VIDEOFLOROSCOPIC SCALE SCORE ([place]): Grade I = aspiration of material that has penetrated into the laryngeal vestibule, intact cough reflex Grade II = aspiration < 10 % of the bolus, intact cough reflex Grade III = aspiration of < 10 % of the bolus, reduced cough reflex or aspiration of > 10 % of the bolus, intact cough reflex Grade IV = aspiration of > 10 % of the bolus, reduced cough reflex Penetration-Aspiration Scale Score Thin Liquid via teaspoon: Result: 1= does not enter airway Thin Liquid via teaspoon Trial 2: Result: 1= does not enter airway Thin Liquid via large single sip: cup: Result: 2= enter airway/above vocal folds/ejected [place] Thick Liquid via large single sip: cup: Result: 1= does not enter airway Pudding via teaspoon: Result: 1= does not enter airway Comment: Esophageal screen - Mild retention in the middle esophagus. Thin Liquid via single sip: straw: Result: 1= does not enter airway Comment: Esophageal screen - Mild retention in lower esophagus, somewhat cleared retention of previous trial. Retrograde flow of thin barium in lower esophagus. Thin Liquid via sequential sips:straw: Result: 1= does not enter airway Oral Phase Labial Seal: Interlabial escape, no progression to anterior lip Tongue Control During Bolus Hold: Posterior escape of less than half of bolus Bolus Transport/Lingual Motion: Delayed initiation of tongue motion Oral Residue: Residue collection on oral structures Pharyngeal Phase Initiation of Pharyngeal Swallow: Bolus head in pyriforms Soft Palate Elevation: Trace column of contrast/air between soft palate and pharyngeal wall Laryngeal Elevation: Comp. Superior move thyroid cart w/comp. apprx arytenoid cart-epig pet Anterior Hyoid Excursion: Partial anterior movement Epiglottic Movement: Complete inversion Laryngeal Vestibule Closure at Height of Swallow: Incomplete; narrow column of air/contrast in laryngeal vestibule (trace laryngeal penetration 1X) Pharyngeal Stripping Wave: Present - diminished Pharyngoesophageal Segment Opening: Parital distension and partial duration; parital obstruction of flow Tongue Base Retraction: Narrow column of contrast between tongue base & post. pharyngeal wall Pharyngeal Residue: Collection of residue within or on pharyngeal structures Esophageal Phase Esophageal Clearance: Esophageal retention w/ retrograde flow below pharyngoesophageal seg. Diagnosis/Impression Diagnosis: Mild oropharyngeal dysphagia R13.12 Impression: The oral phase is marked by... -Decreased bolus control w/ posterior loss of <1/2 of liquids to the pyriforms prior to swallow onset. -Delayed tongue motion for A-P transport. -Mild oral residue, which pt cleared w/ independent use of a second swallow as needed. -Did not assess mastication of cookie as pt has incomplete jaw closure after teeth extraction. Pt will require dentures after treatment has been completed. The pharyngeal phase is marked by... -Delayed swallow onset. -Mildly decreased TB retraction and pharyngeal stripping wave resulting in trace-mild pharyngeal residues, which cleared w/ independent use of a second swallow as needed. -Trace laryngeal penetration 1X, which fully ejected during the swallow, no aspiration. The esophageal phase is marked by... -Mild retention of pudding in the middle esophagus. -Mild retention of liquids in lower esophagus, which somewhat cleared retention of pudding trial. Retrograde flow of thin barium in lower esophagus. Recommendations Diet: Soft and Bite Sized Textures and Thin Liquids Compensatory Strategies: Small Bites, Small Sips, Slow Rate, Multiple Swallows, Alternate bites/solids and sips/liquids, Sitting upright and Remain sitting upright for 30 minutes after PO intake Recommend Repeat Modified Barium Swallow: Yes Comment: Repeat MBSS 3 months after completion of chemoradiation to monitor swallow function as the patient is at risk for worsening dysphagia and aspiration risk s/p chemoradiation treatment. Need for Skilled Speech Therapy Services: Yes Comment: Continue per OP dysphagia POC. Continue Christie, Kai, Effortful, and jaw stretch for oropharyngeal exercise program. Education Completed: 1. Described result of evaluation., 2. Pt understands evaluation & agrees with goals and treatment plan. and 7. Pt requires further education on strategies & risks. Status Active ST Patient: Active Contact Information [facility] Speech Therapy:: Rosalia Pollard M.A. CCC-SUPERVISOR TOWER? Speech-Language Pathologist?? [facility] [address] [place] [address]? ?? [phone]
== END | disposition home or self-care (01) ==
LOC: RAD 08:08
PROVIDERS: PCP Family Medicine Geriatric Medicine; Referring Provider Student in an Organized Health Care Education/Training Program; Visit Provider Student in an Organized Health Care Education/Training Program
DX: C01 Malignant neoplasm of base of tongue (principal)
CPT/HCPCS: 74230; 92611

== ENCOUNTER 2024-09-25 19:54 | Inpatient (IN) | payer MEDICARE, OTHER, SELFPAY ==
[2024-09-25] VITALS (7 sets, daily range): BP systolic 69–115; BP diastolic 51–64; PULSE 60–87; RESP 18–22; TEMP 36.9; O2SAT 93–97; BMI 32.0
--- NOTE | 2024-09-25 20:20 | EKG12_ITS ---
Test Reason : DYSRHYTHMIA Blood Pressure : */* mmHG Vent. Rate : 64 BPM Atrial Rate : * BPM P-R Int : * ms QRS Dur : 94 ms QT Int : 496 ms P-R-T Axes : * 67 59 degrees QTcB Int : 511 ms Atrial fibrillation with premature ventricular or aberrantly conducted complexes Nonspecific ST abnormality Prolonged QT Abnormal ECG Confirmed by MISTY ALVARENGA, MAXIMILIANO ([id number]), web editor BEA LOVETT ([id number]) on 09/28/2024 10:31:33 AM Referred By: Lorenzo Hernandez Confirmed By: MAXIMILIANO JAY MD
--- NOTE | 2024-09-25 20:25 | ED.VIS.FALL ---
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 This evening he had a bowel movement stood up from the toilet. Both legs felt weak and shaky and he fell onto his left side hitting his left elbow and left ribs on the medicine cabinet and back on the toilet. He then fell onto the floor and was wedged between the toilet and the bathtub and was unable to get up. His called EMS. He denies head injury or LOC. States his left anterior ribs are sore. He has no chest pain or shortness of breath. He states the redness/dermatitis on the right side of his neck from the radiation is slowly improving. He denies recent fever or chills. He drinks fluids by mouth but takes everything else through a PEG tube due to his cancer. [facility] Medical History Encounter for education Wears glasses Edentulous High cholesterol Injury of head and neck History of hiatal hernia CPAP (continuous positive airway pressure) dependence Shortness of breath on exertion Former smoker History of edema History of echocardiogram COPD (chronic obstructive pulmonary disease) Tongue cancer Hyperglycemia Essential hypertension Hypoxia Saddle pulmonary embolus Home Medications ?Medication ?Instructions ?Recorded ?Last Taken ?Type atorvastatin 40 mg tablet 40 mg PO QHS 05/04/19 05/03/19 History cholecalciferol (vitamin D3) 25 1,000 unit PO DAILY supplement 05/04/19 05/04/19 History mcg (1,000 unit) tablet rivaroxaban 15 mg tablet 20 mg PO QHS 11/30/21 07/05/24 History citalopram 20 mg tablet (Celexa) 20 mg PO QHS 05/08/22 Unknown History budesonide 160 mcg-glycopyr 9 2 inh inhalation BID #10.7 grams 07/31/23 Unknown Rx mcg-formot 4.8 mcg/actuation HFA inhaler (Breztri [employer] Corpphere) cetirizine 10 mg capsule (Zyrtec) 10 mg PO DAILY PRN allergy symptoms 07/31/23 Unknown History fluticasone furoate 27.5 2 spray intranasal DAILY PRN 07/31/23 Unknown History mcg/actuation nasal allergy symptoms spray,suspension (Flonase Sensimist) hydrochlorothiazide 12.5 mg tablet 12.5 mg PO QHS 07/31/23 Unknown History valsartan 320 mg tablet 320 mg PO QHS 07/31/23 Unknown History acetaminophen 500 mg capsule 500 mg PO Q6H PRN pain 05/20/24 07/01/24 History acetaminophen 300 mg-codeine 30 mg 1 - 2 tab PO Q6H PRN PRN pain 06/22/24 Unknown History tablet ibuprofen 600 mg tablet 600 mg PO Q6H PRN PRN pain 06/22/24 Unknown History lidocaine-prilocaine 2.5 %-2.5 % 1 applic topical ONCE PRN port 06/29/24 Unknown Rx topical cream access 30 days #30 grams ondansetron 8 mg disintegrating 8 mg PO Q8H PRN nausea and 06/29/24 Unknown Rx tablet vomiting #30 tabs albuterol sulfate 90 mcg/actuation 2 puff inhalation Q4H PRN 07/07/24 Unknown Rx aerosol inhaler shortness of breath or wheezing #1 ea MAGIC MOUTH WASH (BMX) 180 mL 15 ml PO .qid PRN pain #180 mL 07/21/24 Unknown Rx suspension dexamethasone 4 mg tablet 4 mg PO QDAY #14 tabs 09/15/24 Unknown Rx oxycodone 5 mg capsule 5 mg PO TID PRN pain 2 weeks #80 09/15/24 Unknown Rx caps Allergy/AdvReac Type Severity Reaction Status Date / Time Sulfa (Sulfonamide Allergy Rash Verified 09/25/24 19:59 Antibiotics) Family History Father Heart disease Mother Heart disease Lung disease Grandmother Cancer Grandfather Cancer Other Diabetes Surgical History History of vascular access device History of surgery History of esophagogastroduodenoscopy (EGD) History of colonoscopy History of appendectomy History of tonsillectomy Cataracts, both eyes H/O parotidectomy Social History Smoking Status: Former smoker how long ago did patient quit smokin second hand exposure: Yes ROS ROS ED ROS Narrative Constitutional: Negative for fever, chills. CVS: Negative for palpitations, chest pain, syncope. Respiratory: Negative for shortness of breath, cough. GI: Negative for abdominal pain, nausea, vomiting, diarrhea, melena, hematochezia. EXAM Physical Exam Narrative Exam Narrative: CONST: Patient sitting in no acute distress. EYES: Normal inspection. ENT: Dry mucous membranes with yellow film on tongue. NECK: Right side of his neck has erythema and minor skin breakdown in the neck fold from radiation. RESP: No respiratory distress, CTAB. Tender over left anterior lower ribs in the midclavicular line, no deformity or crepitus. No bruising or external signs of trauma. No subcutaneous emphysema. CVS: Regular rate and rhythm, no murmur, no gallop. ABD: Soft and nontender, no guarding or rebound. PEG tube intact. Back: Normal inspection, no midline tenderness. SKIN: 1 cm skin tear left elbow. EXTREMITIES: Normal appearance, no bony tenderness of upper or lower extremities, full range of motion, 2+ radial and DP pulses. NEURO: Alert and answering questions appropriately. PSYCH: Normal affect. Const Vital Signs: 09/25/24 19:56 09/25/24 20:06 09/25/24 20:12 Temperature 98.4 F 98.4 F Temperature Source Axillary Oral Pulse Rate 66 64 Pulse Rate [Lying] Pulse Rate [Sitting (for 1 minute prior to obtaining)] Pulse Rate [Standing (for 1 minute prior to obtaining)] Respiratory Rate 22 H 18 Respiratory Effort Normal Respiratory Depth Normal Respiratory Pattern Normal Blood Pressure 85/54 L 115/63 Blood Pressure [Lying] Blood Pressure [Sitting (for 1 minute prior to obtaining)] Blood Pressure [Standing (for 1 minute prior to obtaining)] Blood Pressure Mean 64 80 Blood Pressure Mean [Lying] Blood Pressure Mean [Sitting (for 1 minute prior to obtaining)] Blood Pressure Mean [Standing (for 1 minute prior to obtaining)] Pulse Ox 97 96 Oxygen Delivery Method Room Air Room Air Room Air 09/25/24 20:28 09/25/24 20:49 09/25/24 21:00 Temperature 98.4 F Temperature Source Oral Pulse Rate 72 Pulse Rate [Lying] 73 Pulse Rate [Sitting (for 1 minute prior to obtaining)] 83 Pulse Rate [Standing (for 1 minute prior to obtaining)] 87 Respiratory Rate 18 Respiratory Effort Respiratory Depth Respiratory Pattern Blood Pressure 100/64 Blood Pressure [Lying] 97/54 L Blood Pressure [Sitting (for 1 minute prior to obtaining)] 81/61 L Blood Pressure [Standing (for 1 minute prior to obtaining)] 69/51 L Blood Pressure Mean 76 Blood Pressure Mean [Lying] 68 Blood Pressure Mean [Sitting (for 1 minute prior to obtaining)] 67 Blood Pressure Mean [Standing (for 1 minute prior to obtaining)] 57 Pulse Ox 95 Oxygen Delivery Method Room Air Room Air 09/25/24 22:00 Temperature 98.4 F Temperature Source Oral Pulse Rate 87 Pulse Rate [Lying] Pulse Rate [Sitting (for 1 minute prior to obtaining)] Pulse Rate [Standing (for 1 minute prior to obtaining)] Respiratory Rate 18 Respiratory Effort Respiratory Depth Respiratory Pattern Blood Pressure 100/61 Blood Pressure [Lying] Blood Pressure [Sitting (for 1 minute prior to obtaining)] Blood Pressure [Standing (for 1 minute prior to obtaining)] Blood Pressure Mean 74 Blood Pressure Mean [Lying] Blood Pressure Mean [Sitting (for 1 minute prior to obtaining)] Blood Pressure Mean [Standing (for 1 minute prior to obtaining)] Pulse Ox 94 Oxygen Delivery Method Room Air MDM MDM MDM Narrative Medical decision making narrative: Differential includes but not limited to vasovagal syncope, orthostatic hypotension, electrolyte derangement, CAM 71-year-old male had a bowel movement and after standing up both legs felt weak and he fell and was unable to get up. He appears well and nontoxic. GCS 15. He was hypotensive at 85/54, otherwise normal vital signs. He has very dry mucous membranes. He takes in fluids by mouth and his medications and food through his PEG tube. Orthostatic vital signs were positive and he was given IV fluids. He denies hitting his head and has no signs of head injury. Initially I ordered a CT scan of his head/neck just because he is elderly and on a blood thinner but he refused them. He is tender over his left anterior rib cage with no signs of trauma and has normal heart and lung sounds. Abdomen is soft and nontender. He is moving all extremities and has no bony tenderness and is neurovascularly intact. There is a minor left elbow skin tear which was cleansed and dressed. Labs show WBC of 13.4. Hemoglobin is 13.9. Platelets 87 which is baseline. BUN is 28, creatinine 1.41. Recent baseline is 0.86-1.16 so this is slightly elevated. Glucose 152. Gap is 18. He has a chronically elevated total bilirubin at 2.12 but otherwise normal LFTs. Lactic is 5.0. He was given a second liter of IV fluids. Blood and urine cultures were obtained. Patient was signed out to my attending pending disposition. Patient's EKG was read as A-fib with occasional PVCs at 64 bpm. There is a very poor baseline and some parts appear to have P waves so I think this could be normal sinus rhythm. Repeat was obtained and really is not a better quality baseline. Clearly determine the rhythm. He is already on Xarelto for DVT/PE so this can be further evaluated outpatient. Lab Data Attestation: I reviewed the patient's lab results. Labs: Laboratory Results - last 24 hr 09/25/24 20:31 WBC 13.4 H RBC 4.41 L Hgb 13.9 Hct 41.7 MCV 94.6 H MCH 31.5 MCHC 33.3 RDW Std Deviation 63.6 H RDW Coeff of Neftali 18.5 H Plt Count 87 L MPV 10.4 Immature Gran % (Auto) 3.400 H Neut % (Auto) 87.7 H Lymph % (Auto) 1.1 L Pine % (Auto) 7.0 Eos % (Auto) 0.4 Baso % (Auto) 0.4 Absolute Neuts (auto) 11.7 H Absolute Lymphs (auto) 0.15 L Nucleated RBC % 0 Differential Comment SCANNED Platelet Estimate MOD DEC PT 20.3 H INR 1.7 APTT 29.8 Sodium 135 Potassium 3.6 Chloride 93 L Carbon Dioxide 24.0 Anion Gap 18 H BUN 28 H Creatinine 1.41 H Estim Creat Clear Calc 63.36 Est GFR (MDRD) Non-Af 53 L BUN/Creatinine Ratio 20.0 Glucose 152 H Lactic Acid 5.0 H* Calcium 9.4 Total Bilirubin 2.12 H AST 26 ALT 31 Alkaline Phosphatase 100 Total Protein 6.5 Albumin 3.7 Globulin 2.7 Albumin/Globulin Ratio 1.4 Radiography Diagnostic Testing: Clinical Impression(s) from Imaging Studies Ribs w/Chest X-Ray 09/25/24 20:55 IMPRESSION: No displaced rib fractures. Reading Location: [facility] ED attending interpretation of chest x-ray and right rib series shows no evidence of displaced rib fracture or pneumothorax. No infiltrate. EKG Initial EKG: Attestation: I personally reviewed and interpreted this EKG as follows: Interpretation: Atrial Fibrillation Comments: Atrial fibrillation at 64 bpm with premature ventricular complexes Nonspecific ST changes, no STEMI Prolonged QTc at 511 MS Discharge Plan Triage Chief Complaint: Fall ED Midlevel Provider: Gela López ED Provider: Vicente Tee Dx/Rx/DC Orders Clinical Impression: Orthostatic hypotension, Fall, Skin tear of left elbow without complication, Contusion of rib on left side, Lactic acidosis Prescriptions: No Action rivaroxaban 15 mg tablet 20 mg PO QHS Patient Comments: LAST DAY 06/28/24 FOR SURGERY ON 07/02/24 Rx Instructions: must administer with evening meal citalopram [Celexa] 20 mg tablet 20 mg PO QHS valsartan 320 mg tablet 320 mg PO QHS hydrochlorothiazide 12.5 mg tablet 12.5 mg PO QHS Zyrtec 10 mg capsule 10 mg PO DAILY PRN (Reason: allergy symptoms) Flonase Sensimist 27.5 mcg/actuation spray,suspension 2 spray intranasal DAILY PRN (Reason: allergy symptoms) Rx Instructions: into each nostril Breztri Aerosphere 160-9-4.8 mcg/actuation HFA aerosol inhaler 2 inh inhalation BID Qty: 10.7 6RF acetaminophen 500 mg capsule 500 mg PO Q6H PRN (Reason: pain) ondansetron 8 mg tablet,disintegrating 8 mg PO Q8H PRN (Reason: nausea and vomiting) Qty: 30 1RF lidocaine-prilocaine 2.5-2.5 % cream 1 applic topical ONCE PRN (Reason: port access) 30 Days Qty: 30 2RF dexamethasone 4 mg tablet 4 mg PO QDAY Qty: 14 0RF oxycodone 5 mg capsule 5 mg PO TID PRN (Reason: pain) 14 Days Qty: 80 0RF Rx Instructions: take two tabs PO tid atorvastatin 40 MG tablet 40 mg PO QHS cholecalciferol (vitamin D3) 1,000 UNIT tablet 1,000 unit PO DAILY acetaminophen-codeine 300-30 mg tablet 1 - 2 tab PO Q6H PRN PRN (Reason: pain) ibuprofen 600 mg tablet 600 mg PO Q6H PRN PRN (Reason: pain) albuterol sulfate 90 mcg/actuation HFA aerosol inhaler 2 puff inhalation Q4H PRN (Reason: shortness of breath or wheezing) Qty: 1 6RF Rx Instructions: administer with spacer MAGIC MOUTH WASH (BMX) 180 mL suspension 15 ml PO .qid PRN (Reason: pain) Qty: 180 5RF Rx Instructions: diphenhydramine 12.5 mg/5 mL oral liquid 60 mL; aluminum-mag hydroxide-simethicone 400 mg-400 mg-40 mg/5 mL oral susp 60 mL; Lidocaine Viscous 2 % mucosal solution 60 mL; Per 180 mL Primary Care Provider: Bulmaro Curtis Chi Referrals: Bulmaro Curtis Chi, MD [Primary Care Provider] - Print Language: Ukrainian
[2024-09-25 20:42] LABS: Hematocrit 41.7 % (40-54); Hemoglobin 13.9 g/dL (13.0-16.5); Immature Granulocytes Count 0.460 X10^3/uL (0.0-0.0); Mean Corp Hgb Conc 33.3 g/dL (32-36); Mean Corpuscular Volume 94.6 fL (80-94); Mean Platelet Vol. 10.4 fl (6.2-12.0); NRBC Flagged by Analyzer 0 % (0-5); POSITIVE COUNT YES; POSITIVE DIFFERENTIAL YES; Platelet Count 87 K/mm3 (150-450); RBC Distribution Width CV 18.5 % (11.6-14.6); RBC Distribution Width SD 63.6 fl (35.1-43.9); Red Blood Count 4.41 M/mm3 (4.6-6.2); White Blood Count 13.4 K/mm3 (4.4-11.0)
[2024-09-25] MEDS: 0.9% Normal Saline (1000mL) 1,000 ML 999 ML IV ×2 (20:48→22:07)
[2024-09-25 20:49] LABS: Differential Indicated SCAN CRITERIA MET
[2024-09-25 20:54] LABS: Prothrombin Time (Protime)PT. 20.3 SECONDS (11.7-14.9)
--- NOTE | 2024-09-25 20:55 | RAD_ITS ---
RAD/Ribs Uni Min 3V w/PA Chest IMPRESSION: No displaced rib fractures. Reading Location: [id number]
--- NOTE | 2024-09-25 21:02 | EKG12_ITS ---
Test Reason : DYSRHYTHMIA Blood Pressure : */* mmHG Vent. Rate : 59 BPM Atrial Rate : * BPM P-R Int : * ms QRS Dur : 104 ms QT Int : 494 ms P-R-T Axes : * 65 68 degrees QTcB Int : 489 ms Atrial fibrillation with slow ventricular response with premature ventricular or aberrantly conducted complexes Nonspecific ST abnormality QTcB >= 480 msec Abnormal ECG Confirmed by MISTY ALVARENGA, MAXIMILIANO ([id number]), television news video editor BEA LOVETT ([id number]) on 09/28/2024 10:31:43 AM Referred By: Lorenzo Hernandez Confirmed By: MAXIMILIANO JAY MD
[2024-09-25 21:03] LABS: Partial Thromboplast Time 29.8 Seconds (24.1-36.2)
--- OUTSIDE RECORDS SUMMARY | 2024-09-25 21:05 | XMS RPT_ITS | CCD ---
Author Organization [facility] CliniSyut Care Team Providers Care Tax Lawyer Name Role Phone Dr. Bulmaro Curtis Chi Primary Care Provider Ever, Dr. Bulmaro oGode Referring Provider DONTA Thompson Attending Provider Dr. Andry Juárez Attending Provider DONTA Thompson Referring Provider Dr. Leonel Carolina Attending Provider Ever, Dr. Bulmaro Goode Primary Care Provider Ever, Dr. Bulmaro Goode Referring Provider Dr. Leonel Carolina Attending Provider Eugene COMPUTER NETWORK SUPPORT SPECIALIST, COMPUTER NETWORK SUPPORT SPECIALIST-C Dianna Attending Provider Ever, Dr. Bulmaro Goode Primary Care Provider Ever, Dr. Bulmaro Goode Referring Provider Dr. Leonel Carolina Attending Provider Eugene COMPUTER NETWORK SUPPORT SPECIALIST, COMPUTER NETWORK SUPPORT SPECIALIST-C Dianna Attending Provider Ever, Dr. Bulmaro Goode Primary Care Provider Ever, Dr. Bulmaro Goode Referring Provider Dr. Leonel Carolina Attending Provider Ever, Dr. Bulmaro Goode Primary Care Provider Ever, Dr. Bulmaro Goode Referring Provider Dr. Leonel Carolina Attending Provider Ever, Dr. Bulmaro Goode Primary Care Provider Ever, Dr. Bulmaro Goode Referring Provider Dr. Leonel Carolina Attending Provider Ever ALVARENGA, Dr. Bulmaro Goode Primary Care Provider Sherly ALVARENGA, Dr. Galo Attending Provider Sherly ALVARENGA, Dr. Galo Referring Provider Lelo Dan Attending Provider Unavailable Xi VÁSQUEZ, Dr. Cota Attending Provider Ochoa ALVARENGA, Dr. Gregory Referring Provider Ever ALVARENGA, Dr. Bulmaro Goode Referring Provider Beto ALVARENGA, Dr. Gamez Attending Provider Gonzalo ALVARENGA, Dr. Daniel Gonzales Attending Provider Beto ALVARENGA, Dr. Gamez Referring Provider Shade COMPUTER NETWORK SUPPORT SPECIALIST-C, Ashly Attending Provider Gonzalo ALVARENGA, Dr. Daniel Gonzales Referring Provider Gonzalo ALVARENGA, Dr. Daniel Gonzales Other Provider Marquita ALVARENGA, Dr. Wilde Attending Provider Mario ALVARENGA, Dr. Sigala Referring Provider Humphrey CESPEDES, Elicia Attending Provider Elicia Yin PA-C Referring Provider Dr. Franco Pérez MD Referring Provider Dr. Cipriano Layne DO Referring Provider Beto ALVARENGA, Dr. Gamez Referring Provider Markiv PIPEFITTER HELPER-EXTRUDER OPERATOR HELPER, Evie Unavailable Karin [facility], Kristofer Flores Unavailable Jenniferva china Packer MD, Simon Unavailable Dr. Fracno Pérez MD Referring Provider Beto ALVARENGA, Dr. Gamez Referring Provider Beto ALVARENGA, Dr. Gamez Referring Provider Eevr ALVARENGA, Dr. Bulmaro Chi Primary Care Provider [phone] Dr. Franco Pérez MD Referring Provider Elicia Yin PA-C Attending Provider Elicia Yin PA-C Referring Provider Dr. Franco Pérez MD Referring Provider [phone] Dr. Franco Pérez MD Referring Provider PROVIDER, UNKNOWN Attending Unavailable PROVIDER, UNKNOWN Admitting Unavailable OCHOA, SIMON Referring Unavailable PROVIDER, UNKNOWN Admitting Unavailable PROVIDER, UNKNOWN Attending Unavailable OCHOA, SIMON Referring Unavailable PROVIDER, UNKNOWN Attending Unavailable PROVIDER, UNKNOWN Admitting Unavailable OCHOA, SIMON Referring Unavailable OCHOA, SIMON Referring Unavailable OCHOA, SIMON Admitting Unavailable OCHOA, SIMON Attending Unavailable SHARDA ARMAS Attending Unavaila ble PROVIDER, UNKNOWN Admitting Unavailable KRISTOFER ANDERSON Attending Unavailable PROVIDER, UNKNOWN Admitting Unavailable OCHOA, SIMON Referring Unavailable PROVIDER, UNKNOWN Admitting Unavailable OCHOA, SIMON Referring Unavailable OCHOA, SIMON Attending Unavailable SHERLY, IRAJ Referring Unavailable PROVIDER, UNKNOWN Admitting Unavailable EVIE BLANK Attending Unavailable SHERLY, IRAJ Referring Unavailable PROVIDER, UNKNOWN Admitting Unavailable OCHOA, SIMON Attending Unavailable PROVIDER, UNKNOWN Attending Unavailable PROVIDER, UNKNOWN Admitting Unavailable PROVIDER, UNKNOWN Attending Unavailable PROVIDER, UNKNOWN Admitting Unavailable PROVIDER, UNKNOWN Attending Unavailable PROVIDER, UNKNOWN Admitting Unavailable OCHOA, SIMON Referring Unavailable PROVIDER, UNKNOWN Attending Unavailable PROVIDER, UNKNOWN Admitting Unavailable OCHOA, SIMON Referring Unavailable Unavailable Primary Care Provider Unavailabl e Dr. Franco Pérez MD Referring Provider [phone] Xi, Cipriano Referring Unavailable Xi, Cipriano Attending Unavailable Ever, Bulmaro Chi Primary Care Unavailable Xi, Cipriano Attending Unavailable Xi, Cipriano Referring Unavailable Ever, Bulmaro Chi Primary Care Unavailable Franco Pérez Attending Unavailable Ever, Bulmaro Chi Referring Unavailable Ever, Bulmaro Chi Primary Care Unavailable Xi, Cipriano Referring Unavailable Xi, Cipriano Attending Unavailable Ever, Bulmaro Chi Primary Care Unavailable Yin, Elicia Attending Unavailable Yin, Elicia Referring Unavailable Ever, Bulmaro Chi Primary Care Unavailable Xi, Cipriano Referring Unavailable Xi, Cipriano Attending Unavailable Ever, Bulmaro Chi Primary Care Unavailable Daniel Sánchez A Referring Unavailable Daniel Sánchez A Attending Unavailable Ever, Bulmaro Chi Primary Care Unavailable Iraj Dubois Attending Unavailable Iraj Dubois Referring Unavailable Ever, Bulmaro Chi Primary Care Unavailable Lelo Dan Attending Unavailable Ever, Bulmaro Chi Primary Care Unavailable Ever, Bulmaro Chi Referring Unavailable Ever, Bulmaro Chi Primary Care Unavailable Elicia Yin Attending Unavailable Cipriano Layne Attending Unavailable Ever, Bulmaro Chi Primary Care Unavailable Xi, Cipriano Referring Unavailable Ever, Bulmaro Chi Referring Unavailable Ashly Laguerre NP Attending Unavailable Ever, Bulmaro Chi Primary Care Unavailable Cipriano Layne Attending Unavailable Ever, Bulmaro Chi Primary Care Unavailable Cipriano Layne Referring Unavailable Ever, Bulmaro Chi Referring Unavailable PraFranco villanueva Attending Unavailable Ever, Bulmaro Chi Primary Care Unavailable Cipriano Layne Attending Unavailable Xi, Cipriano Referring Unavailable Ever, Bulmaro Chi Primary Care Unavailable Daniel Sánchez Referring Unavailable Daniel Sánchez Consulting Unavailable WanDaniel miramontes Attending Unavailable Ever, Bulmaro Chi Primary Care Unavailable Daniel Sánchez Attending Unavailable Daniel Sánchez Referring Unavailable WanekDaniel Consulting Unavailable Ever, Bulmaro Chi Primary Care Unavailable Ever, Bulmaro Chi Referring Unavailable Franco Pérez Attending Unavailable Ever, Bulmaro Chi Primary Care Unavailable Daniel Sánchez Attending Unavailable Ever, Bulmaro Chi Referring Unavailable Ever, Bulmaro Chi Primary Care Unavailable Franco Pérez Attending Unavailable Ever, Bulmaro Chi Referring Unavailable Ever, Bulmaro Chi Primary Care Unavailable Cipriano Layne Attending Unavailable Ever, Bulmaro Chi Referring Unavailable Ever, Bulmaro Chi Primary Care Unavailable Ever, Bulmaro Chi Attending Unavailable Ever, Bulmaro Chi Referring Unavailable Ever, Bulmaro Chi Primary Care Unavailable Daniel Sánchez Attending Unavailable WanDaniel miramontes Referring Unavailable Ever, Bulmaro Chi Primary Care Unavailable Cipriano Layne Referring Unavailable Cipriano Layne Attending Unavailable Ever, Bulmaro Chi Primary Care Unavailable Cipriano Layne Referring Unavailable Cipriano Layne Attending Unavailable Ever, Bulmaro Chi Primary Care Unavailable Cipriano Layne Attending Unavailable Ever, Bulmaro Chi Primary Care Unavailable Willcherpetty Jovon Referring Unavailable Andry Juárez Attending Unavailable Ever, Bulmaro Chi Primary Care Unavailable Cipriano Layne Attending Unavailable Xi, Cipriano Referring Unavailable Ever, Bulmaro Chi Primary Care Unavailable Cipriano Layne Attending Unavailable Ever, Bulmaro Chi Primary Care Unavailable Cipriano Layne Referring Unavailable Ever, Blumaro Chi Referring Unavailable Franco Pérez Attending Unavailable Ever, Bulmaro Chi Primary Care Unavailable Ever, Bulmaro Chi Referring Unavailable Ever, Bulmaro Chi Primary Care Unavailable Franco Pérez Attending Unavailable Daniel Sánchez Attending Unavailable Ever, Bulmaro Chi Referring Unavailable Ever, Bulmaro Chi Primary Care Unavailable Ever, Bulmaro Chi Referring Unavailable Ever, Bulmaro Chi Primary Care Unavailable Beto, Franco Attending Unavailable Cipriano Layne Attending Unavailable Cipriano Layne Referring Unavailable Ever, Bulmaro Chi Primary Care Unavailable Ever, Bulmaro Chi Referring Unavailable PraFranco villanueva Attending Unavailable Ever, Bulmaro Chi Primary Care Unavailable Cipriano Layne Attending Unavailable Cipriano Layne Referring Unavailable Ever, Bulmaro Chi Primary Care Unavailable Ever, Bulmaro Chi Referring Unavailable Ever, Bulmaro Chi Primary Care Unavailable Franco Pérez Attending Unavailable Cipriano Layne Attending Unavailable Ochoa, Simon Referring Unavailable Ever, Bulmaro Chi Primary Care Unavailable Cipriano Layne Attending Unavailable Ever, Bulmaro Chi Primary Care Unavailable Cipriano Layne Referring Unavailable Cipriano Layne Attending Unavailable Franco Pérez Referring Unavailable Ever, Bulmaro Chi Primary Care Unavailable Allergies Allergy Classification Reported Allergen(s) Allergy Type Date of Onset Reaction(s) Facility (20 sources) Sulfonamides (Antibiotic); Translations: [Sulfa (Sulfonamide Antibiotics)] Allergy to substance 2 [facility] (10 sources) Sulfonamides (Antibiotic); Translations: [SULFA ANTIBIOTICS] Propensity to adverse reactions to drug 0 [facility] Medications Current Medications Medication Drug Class(es) Dates Sig (Normalized) Sig (Original) acetaminophen 500 mg oral capsule (12 sources) Start: 05-20-2024 take 1 capsule by mouth every six hours as needed for pain Acetaminophen 500 mg capsule Active 500 mg PO EVERY 6 HOURS as needed for pain May 20, 2024 1:00am Start: 05-08-2024 End: 05-15-2024 take 2 tablets by mouth every six hours as needed for pain acetaminophen (TYLENOL) 500 MG tablet Take 2 Tablets by mouth every 6 hours as needed for Pain or Fever for up to 7 days. 28 Tablet 05/08/2024 9:13 AM EST 05/08/2024 05/15/2024 acetaminophen 300 mg / codeine phosphate 30 mg oral tablet (12 sources) Opioid Agonist Start: 06-22-2024 Acetaminophen- Codeine 300-30 mg tablet Active 1 - 2 {tbl} PO EVERY 6 HOURS NEEDED as needed for pain June 22, 2024 12:00am Start: 06-11-2024 End: 06-14-2024 take 1-2 tablets by mouth every six hours as needed for pain acetaminophen-codeine (TYLENOL #3) 300-30 MG per tablet Indications: Postoperative pain Take 1-2 Tablets by mouth every 6 hours as needed for Pain for up to 3 days. 12 Tablet 06/11/2024 06/14/2024 [id number] 200 actuat albuterol 0.09 mg/actuat metered dose inhaler (20 sources) beta2-Adrenergic Agonist Start: 08-20-2023 take 2 puff(s) by mouth every four hours as needed for wheezing albuterol (PROVENTIL HFA) INHALATION HFA inhaler (VENTOLIN,PROAIR,PROVENTIL) 90mcg INHALE 2 PUFFS BY MOUTH EVERY 4 HOURS NEEDED SHORTNESS OF BREATH OR FOR WHEEZING 08/20/2023 Active Start: 08-20-2019 End: 07-07-2024 Albuterol Sulfate 90 mcg/act uation HFA aerosol inhaler Discontinued 2 NMA INHALATION Q4H as needed for shortness of breath or wheezing October 24, 2021 12:58pm July 31, 2023 11:07am administer with spacer Start: 08-20-2019 End: 07-31-2023 take 1 puff(s) by inhalation every four hours Albuterol Sulfate Discontinued 2 PUFF INHALATION Q4H October 24, 2021 12:58pm July 31, 2023 11:07am administer with spacer Start: 05-04-2019 End: 03-14-2023 Albuterol Sulfate 18 GM HFA aerosol inhaler Discontinued 2 NMA IH TWICE A DAY May 04, 2019 1:00am March 14, 2023 8:50am Start: 05-04-2019 End: 03-14-2023 take 1 puff(s) by inhalation twice daily Albuterol Sulfate Discontinued 2 PUFF IH TWICE A DAY May 04, 2019 1:00am March 14, 2023 8:50am atorvastatin 40 mg oral tablet (20 sources) HMG-CoA Reductase Inhibitor Start: 05-04-2019 take 1 tablet by mouth at bedtime Atorvastatin 40 MG tablet Active 40 mg PO AT BEDTIME May 04, 2019 1:00am Budesonide-Glycopyr -Formoterol (20 sources) Corticosteroid, beta2-Adrenergic Agonist Start: 07-31-2023 Budesonide-Glycopyr -Formoterol (Breztri Aerosphere) 160-9-4.8 mcg/actuation HFA aerosol inhaler Active 2 NMA INHALATION TWICE A DAY 10.7 July 31, 2023 11:07am Start: 07-31-2023 Budesonide-Gly copyr-Formoterol (Breztri Aerosphere) 160-9-4.8 mcg/actuation HFA aerosol inhaler Active 2 INH INHALATION TWICE A DAY 10.July 31, 2023 11:07am Start: 09-12-2022 End: 07-31-2023 Vgxuxhdcup-Tdgvepuf-Urrstvcy ol (Breztri Aerosphere) 160-9-4.8 mcg/actuation HFA aerosol inhaler Discontinued 2 NMA INHALATION TWICE A DAY 10.7 September 12, 2022 12:00am July 31, 2023 11:07am Start: 09-12-2022 End: 07-31-2023 Lvvcwaypxf-Zgvgfnaw-Yuystabw ol (Breztri Aerosphere) 160-9-4.8 mcg/actuation HFA aerosol inhaler Discontinued 2 INH INHALATION TWICE A DAY 10.7 September 12, 2022 12:00am July 31, 2023 11:07am Start: 09-12-2022 Budesonide-Gly copyr-Formoterol (Breztri Aerosphere) 160-9-4.8 mcg/actuation HFA aerosol inhaler Active 2 INH INHALATION TWICE A DAY 10.7 September 12, 2022 12:00am chlorhexidine gluconate 1.2 mg/ml mouthwash (4 sources) Start: 06-11-2024 take 15 mL by mouth twice daily, then take 15 mL by mouth twice daily chlorhexidine (PERIDEX) 0.12 % oral solution Take 15 mL by mouth 2 times daily. Rinse 15 mL in mouth for 2 minutes two times daily and spit out. Do not swallow. 1 mL 06/11/2024 Active cholecalciferol 0.025 mg oral tablet (20 sources) Vitamin D Start: 05-04-2019 take 1 tablet by mouth once daily Cholecalciferol (Vitamin D3) 1,000 UNIT tablet Active 1000 U PO DAILY May 04, 2019 1:00am citalopram 20 mg oral tablet (20 sources) Serotonin Reuptake Inhibitor Start: 05-08-2022 take 1 tablet by mouth at bedtime Citalopram (Celexa) 20 mg tablet Active 20 mg PO AT BEDTIME May 08, 2022 1:00am dexamethasone 4 mg oral tablet (1 source) Corticosteroid Start: 09-15-2024 take 1 tablet by mouth once daily Dexamethasone 4 mg tablet Active 4 mg PO daily September 15, 2024 12:00am Fluticasone-Umeclidi n-Vilanter (20 sources) Anticholinergic, Corticosteroid, beta2-Adrenergic Agonist Start: 08-17-2020 Fluticasone-Umeclid in-Vilanter (Trelegy Ellipta) 100-62.5-25 mcg blister with device Active 1 INH INHALATION DAILY August 17, 2020 8:35am Start: 08-17-2020 End: 11-30-2021 Wgolzmuwuae-Glyqlhugz-Rhtnlo er (Trelegy Ellipta) 100-62.5-25 mcg blister with device Discontinued 1 NMA INHALATION DAILY August 17, 2020 12:00am November 30, 2021 10:08am Start: 08-17-2020 End: 11-30-2021 Jhwgdoxnmfp-Bxyddxkdd-Kufucc er (Trelegy Ellipta) 100-62.5-25 mcg blister with device Discontinued 1 INH INHALATION DAILY August 17, 2020 12:00am November 30, 2021 10:08am Start: 08-17-2020 End: 11-30-2021 Jqnudyqihkp-Woxdjsvyw-Qndrtw er (Trelegy Ellipta) 100-62.5-25 mcg blister with device Discontinued 1 INH INHALATION DAILY August 16, 2020 11:00pm November 30, 2021 9:08am Start: 08-17-2020 Fluticasone-Um eclidin-Vilanter (Trelegy Ellipta) 100-62.5-25 mcg blister with device Active 1 INH INHALATION DAILY August 17, 2020 12:00am hydroCHLOROthiazide 12.5 mg oral tablet (20 sources) Thiazide Diuretic Start: 07-31-2023 take 1 tablet by mouth at bedtime Hydrochlorothiazide 12.5 mg tablet Active 12.5 mg PO AT BEDTIME July 31, 2023 12:00am ibuprofen 600 mg oral tablet (20 sources) Nonsteroidal Anti-inflammator y Drug Start: 06-22-2024 take 1 tablet by mouth every six hours as needed for pain Ibuprofen 600 mg tablet Active 600 mg PO EVERY 6 HOURS NEEDED as needed for pain June 22, 2024 12:00am Start: 06-11-2024 End: 06-18-2024 take 1 tablet by mouth every six hours as needed for pain ibuprofen (MOTRIN) 600 MG tablet Take 1 Tablet by mouth every 6 hours as needed for Pain for up to 7 days. 30 Tablet 1 06/11/2024 06/18/2024 Start: 05-20-2024 End: 06-03-2024 take 1 tablet by mouth every eight hours as needed Ibuprofen 600 mg tablet Discontinued 600 mg PO Q8H as needed May 20, 2024 1:00am June 03, 2024 9:41am Start: 05-08-2024 End: 05-15-2024 take 1 tablet by mouth every six hours as needed for pain ibuprofen (MOTRIN) 600 MG tablet Take 1 Tablet by mouth every 6 hours as needed for Pain for up to 7 days. 28 Tablet 05/08/2024 9:13 AM EST 05/08/2024 05/15/2024 lidocaine 25 mg/ml / prilocaine 25 mg/ml topical cream (11 sources) Antiarrhythmic, Amide Local Anesthetic Start: 06-29-2024 Lidocaine-Prilocaine 2.5-2.5 % cream Active 1 NMA TOPICAL ONCE as needed for port access 30 June 29, 2024 12:00am Magic Mouth Wash (Bmx) 180 mL suspension (7 sources) Start: 07-21-2024 Magic Mouth Wash (Bmx) 180 mL suspension Active 15 mL PO .qid as needed for pain 180 July 21, 2024 12:00am diphenhydramine 12.5 mg/5 mL oral liquid 60 mL; aluminum-mag hydroxide-simethicone 400 mg-400 mg-40 mg/5 mL oral susp 60 mL; Lidocaine Viscous 2 % mucosal solution 60 mL; Per 180 mL ondansetron 8 mg disintegrating oral tablet (11 sources) Serotonin-3 Receptor Antagonist Start: 06-29-2024 take 1 tablet by mouth every eight hours as needed for nausea and vomiting Ondansetron 8 mg tablet,disintegrating Active 8 mg PO Q8H as needed for nausea and vomiting June 29, 2024 12:00am oxyCODONE hydrochloride 5 mg oral capsule (17 sources) Opioid Agonist Start: 09-15-2024 take 2 tablets by mouth three times daily as needed for pain Oxycodone 5 mg capsule Active 5 mg PO THREE TIMES A DAY as needed for pain 80 September 15, 2024 September 28, 2024 12:00am take two tabs PO tid Start: 07-15-2024 End: 09-02-2024 take 1 tablet by mouth every six hours as needed for pain Oxycodone 5 mg capsule Discontinued 5 mg PO THREE TIMES A DAY as needed for pain 90 August 05, 2024 September 01, 2024 12:00am September 02, 2024 12:07am take one tab PO q6 hours prn pain Start: 05-08-2024 End: 05-08-2024 5 mg, Oral, PRN, 1 dose, Sta rting on Sat05/08/24 at 0715, Until Sat05/08/24 at 1240, Moderate Pain (pain score 4,5,6), PACU Now rivaroxaban 15 mg oral tablet (20 sources) Factor Xa Inhibitor Start: 11-30-2021 Rivaroxaba n 15 mg tablet Active 20 mg PO AT BEDTIME November 30, 2021 10:10am must administer with evening meal Start: 11-30-2021 take 20 mg by mouth once daily at dinner Rivaroxaban Active 20 MG PO DAILY November 30, 2021 10:10am must administer with evening meal Start: 12-13-2020 End: 11-30-2021 take 1 tablet by mouth once daily at dinner Rivaroxaban 15 mg tablet Discontinued 15 mg PO DAILY 90 December 13, 2020 12:00am November 30, 2021 10:12am must administer with evening meal Start: 05-05-2019 End: 12-13-2020 take 1 tablet by mouth twice daily at mealtime Rivaroxaban 15 mg tablet Discontinued 15 mg PO TWICE DAILY WITH MEALS 60 August 20, 2019 8:34am December 13, 2020 9:17am take 1 tablet by rico th once daily at dinner Rivaroxaban (Xarelto) 20 MG tablet Take 20 mg by mouth daily (with dinner). Active 60 actuat tiotropium 0.0025 mg/actuat inhalation spray (1 source) Anticholinergic Start: 11-30-2021 take 2.5 ug by inhalation once daily Tiotropium [place] (Spiriva Respimat) 2.5 mcg/actuation mist Active 2 INH INHALATION daily November 29, 2021 11:00pm administer at approximately the same time(s) each day valsartan 320 mg oral tablet (20 sources) Angiotensin 2 Receptor Santo Start: 07-31-2023 take 1 tablet by mouth at bedtime Valsartan 320 mg tablet Active 320 mg PO AT BEDTIME July 31, 2023 12:00am Completed/Discontinued Medications Medication Drug Class(es) Dates Sig (Normalized) Sig (Original) acetaminophen 325 mg / oxyCODONE hydrochloride 5 mg oral tablet (11 sources) Opioid Agonist Start: 07-02-2024 End: 07-15-2024 Oxycodone-Acetamin ophen (Percocet) 5-325 mg tablet Discontinued 1 {tbl} PO Q8H as needed for pain 7 3 July 02, 2024 July 15, 2024 9:17am albuterol 0.833 mg/ml / ipratropium bromide 0.167 mg/ml inhalation solution (1 source) Anticholinergic, beta2-Adrenergic Agonist Start: 05-08-2024 End: 05-08-2024 3 mL, Nebulization, ONCE PRN, 1 dose, Starting on Sat05/08/24 at 0920, Until Sat05/08/24 at 0925, Wheezing, Pre-op apixaban 5 mg oral tablet (20 sources) Factor Xa Inhibitor Start: 05-20-2019 End: 05-21-2019 take 1 tablet by mouth twice daily Apixaban (Eliquis) 5 mg tablet Discontinued 5 mg PO TWICE A DAY 60 May 20, 2019 1:00am May 21, 2019 3:28pm Budesonide-Formotero l (20 sources) Corticosteroid, beta2-Adrenergic Agonist Start: 11-30-2021 End: 03-14-2023 Budesonide-Formote rol (Symbicort) 160-4.5 mcg/actuation HFA aerosol inhaler Discontinued 2 NMA INHALATION TWICE A DAY November 30, 2021 12:00am March 14, 2023 8:50am administer with spacer, rinse mouth after each use Start: 11-30-2021 End: 03-14-2023 take 1 puff(s) by mouth twice daily Budesonide-Formoterol (Symbicort) 160-4.5 mcg/actuation HFA aerosol inhaler Discontinued 2 PUFF INHALATION TWICE A DAY November 30, 2021 12:00am March 14, 2023 8:50am administer with spacer, rinse mouth after each use Start: 11-30-2021 take 1 puff(s) by [facility] twice daily Budesonide-Formoterol (Symbicort) 160-4.5 mcg/actuation HFA aerosol inhaler Active 2 PUFF INHALATION TWICE A DAY November 30, 2021 12:00am administer with spacer, rinse mouth after each use Start: 11-30-2021 take 1 puff(s) by [facility] twice daily Budesonide-Formoterol (Symbicort) 160-4.5 mcg/actuation HFA aerosol inhaler Active 2 PUFF INHALATION TWICE A DAY November 29, 2021 11:00pm administer with spacer, rinse mouth after each use Start: 05-04-2019 End: 03-13-2021 Budesonide-Formoterol 160-4. 5 mcg/actuation HFA aerosol inhaler Discontinued 2 NMA INHALATION TWICE A DAY August 20, 2019 8:34am March 13, 2021 10:24am Start: 05-04-2019 End: 03-13-2021 take 1 puff(s) by inhalation twice daily Budesonide-Formoterol Discontinued 2 PUFF INHALATION TWICE A DAY August 20, 2019 8:34am March 13, 2021 10:24am cetirizine hydrochloride 10 mg oral capsule (18 sources) Histamine-1 Receptor Antagonist Start: 07-31-2023 End: 06-04-2024 Cetirizine HCl 10 MG CAPS Take by mouth. 07/31/2023 06/04/2024 Discontinued 1 ml fentaNYL 0.05 mg/ml injection (1 source) Opioid Agonist Start: 05-08-2024 End: 05-08-2024 12.5 mcg, Intravenous Push, EVERY 5 MIN PRN, 5 doses, Starting on Sat05/08/24 at 0715, Until Sat05/08/24 at 1240, Moderate Pain (pain score 4,5,6), PACU Now fluticasone furoate 0.0275 mg/actuat metered dose nasal spray (18 sources) Corticosteroid Start: 07-31-2023 End: 06-04-2024 fluticasone furoate (VERAMYST) 27.5 MCG/SPRAY nasal inhaler Use in each nostril. 07/31/2023 06/04/2024 Discontinued Start: 07-31-2023 take 1 spray(s) nasa l route once daily Fluticasone Furoate (Flonase Sensimist) 27.5 mcg/actuation spray,suspension Active 2 SPRAY INTRANASAL DAILY July 31, 2023 12:00am into each nostril hydroCHLOROthiazide 12.5 mg / losartan potassium 100 mg oral tablet (20 sources) Thiazide Diuretic, Angiotensin 2 Receptor Santo Start: 05-04-2019 End: 07-31-2023 Losartan-Hydrochlorothiazide 1 EACH tablet Discontinued 1 {tbl} PO DAILY May 04, 2019 1:00am July 31, 2023 10:49am Start: 05-04-2019 End: 07-31-2023 take 1 tablet by mouth once daily Losartan-Hydrochlorothiazide Discontinue d 1 TABLET PO DAILY May 04, 2019 1:00am July 31, 2023 10:49am hydrocortisone 25 mg/ml topical cream (20 sources) Corticosteroid Start: 12-17-2022 End: 06-04-2024 hydrocortisone 2.5 % cream Hydrocortisone (Anusol-Hc) 2.5 % cream with perineal applicator Active 1 APPLIC RC DAILY December 17, 2022 12:00am 12/17/2022 06/04/2024 Discontinued Start: 12-17-2022 End: 05-26-2024 Hydrocortisone (Anusol-Hc) 2 .5 % cream with perineal applicator Discontinued 1 NMA RC DAILY as needed for hemorrhoids December 17, 2022 12:00am May 26, 2024 2:04pm 1 ml HYDROmorphone hydrochloride 1 mg/ml cartridge (1 source) Opioid Agonist Start: 05-08-2024 End: 05-08-2024 0.5 mg, Intravenous Push, PACU EVERY 15 MIN PRN X 4 DOSES, 4 doses, Starting on Sat05/08/24 at 0715, Until Sat05/08/24 at 1240, Severe Pain (pain score 7,8,9,10), PACU Now modified 24 hr metFORMIN hydrochloride 500 mg extended release oral tablet (16 sources) Biguanide Start: 05-20-2024 End: 05-26-2024 take 1 tablet by mouth twice daily Metformin 500 mg tablet,ER soledad.retention 24 hr Discontinued 500 mg PO TWICE A DAY May 20, 2024 1:00am May 26, 2024 2:04pm Start: 04-11-2024 End: 06-04-2024 take 1 tablet by mouth twice daily metformin (GLUCOPHAGE-XR) 500 MG XR tablet Take 500 mg by mouth 2 times daily. 04/11/2024 06/04/2024 Discontinued 1 ml naloxone hydrochloride 0.4 mg/ml injection (1 source) Opioid Antagonist Start: 05-08-2024 End: 05-08-2024 0.4 mg, Intravenous Push, PRN, Starting on Sat05/08/24 at 0715, Until Sat05/08/24 at 1240, Respiratory Rate Less Than 8 for adults and less than 12 for Peds or for suspected overdose, PACU Now Paxlovid, 300/100, 20 x 150 MG & 10 x 100MG tablet therapy pack (6 sources) Start: 02-24-2024 End: 06-11-2024 Paxlovid, 300/100, 20 x 150 MG & 10 x 100MG tablet therapy pack See admin instructions. 02/24/2024 06/11/2024 Discontinued prochlorperazine 10 mg oral tablet (1 source) Phenothiazine Start: 05-08-2024 End: 05-08-2024 take 5 mg by mouth every six hours as needed for nausea 5 mg, Oral, EVERY 6 HOURS PRN, Starting on Sat05/08/24 at 0715, Until Sat05/08/24 at 1240, Nausea, PACU Now 20 ml sodium chloride 9 mg/ml injection (1 source) Start: 05-08-2024 End: 02-14-2025 3 mL, Intravenous Push, PRN, Starting on Sat05/08/24 at 0715, Until Sat05/08/24 at 1240, For medication administration and blood draw, PACU Now Problems Active Problems Problem Classification Problem Date Documented Da te Episodic/Chronic Administrative/social admission (20 sources) Patient encounter status; Translations: [Counseling, unspecified] Onset: 5 06-29-2024 Episodic Allergic reactions (18 sources) Radiation dermatitis; Translations: [Radiodermatitis, unspecified] Onset: 5 08-10-2024 Episodic Cancer of head and neck (20 sources) Primary squamous cell carcinoma of base of tongue; Translations: [Malignant neoplasm of base of tongue] Onset: 5 06-29-2024 Chronic Comment on above: Right oropharyngeal, base of tongue cancer, p16 positive, tumor size 3.3 cm, level II and III nodes, right parotid node, stage I(cT2 cN1 cM0). Right oropharyngeal, base of tongue cancer, p16 positive, tumor size 3.3 cm, level II and III nodes, right parotid node, stage I(cT2 cN1 cM0).Comes for C1 weekly Taxol + Carboplatin.Counts and chemistry reviewed, OK for therapy. Right oropharyngeal, base of tongue cancer, p16 positive, tumor size 3.3 cm, level II and III nodes, right parotid node, stage I(cT2 cN1 cM0).Started Taxol and Carboplatin on 07/06/2024.Comes for C2 weekly Taxol + Carboplatin.Counts and chemistry reviewed, OK for therapy. On combined chemothe rapy and Radiation.Due for C 5 weekly chemotherapy.Counts show PLT 72K On combined chemothe rapy and Radiation.Due for C 5 weekly chemotherapy.Counts show PLT 98K. Ok to proceed with C5. On combined chemothe rapy and Radiation.Due for C 6 weekly chemotherapy.Counts show PLT 108K. Ok to proceed with C6. S/P combined chemoth erapy and Radiation.Discussed further management-restaging and observation. Chronic obstructive pulmonary disease and bronchiectasis (2 sources) Emphysema, unspecified; Translations: [History of chronic obstructive airway disease] Onset: 5 04-29-2024 Chronic Coagulation and hemorrhagic disorders (14 sources) 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; Translations: [Other secondary thrombocytopenia] 08-03-2024 Episodic Comment on above: Due to chemotherapy. Complication of device; implant or graft (1 source) Other specified complication of vascular prosthetic devices, implants and grafts, initial encounter; Translations: [Other specified complication of vascular prosthetic devices, implants and grafts, initial encounter] Onset: 5 Chronic Diabetes mellitus with complications (12 sources) Hyperglycemia due to type 2 diabetes mellitus; Translations: [Type 2 diabetes mellitus with hyperglycemia] Onset: 4 06-04-2024 Chronic Diabetes mellitus without complication (20 sources) Hyperglycemia; Translations: [Hyperglycemia, unspecified] 05-19-2019 Episodic Diseases of mouth; excluding dental (20 sources) Stomatitis; Translations: [Oral mucositis (ulcerative), unspecified] Onset: 5 07-21-2024 Episodic Disorders of teeth and jaw (2 sources) Chronic periodontitis; Translations: [Chronic periodontitis, unspecified] Onset: 5 06-11-2024 Chronic Disorders of teeth and jaw (4 sources) Carious exposure of pulp ; Translations: [Dental caries, unspecified] Onset: 5 06-11-2024 Episodic Essential hypertension (20 sources) Essential hypertension; Translations: [Essential (primary) hypertension] Onset: 5 05-19-2019 Chronic Comment on above: CONTROLLED WITH MED Gastrointestinal hemorrhage (15 sources) Rectal hemorrhage; Translations: [Hemorrhage of anus and rectum] 12-25-2022 Episodic Hemorrhoids (20 sources) Bleeding internal hemorrhoids; Translations: [Other hemorrhoids] 12-25-2022 Episodic Maintenance chemotherapy; radiotherapy (20 sources) Patient encounter status; Translations: [Encounter for antineoplastic chemotherapy] Onset: 5 08-03-2024 Chronic Comment on above: Comes for C5.Counts show PLT 72K, less than optimum for chemotherapy. Comes for C5.Counts show PLT 98K, OK for chemotherapy. He wants to continue therapy. Comes for C6.Counts show PLT 108K, OK for chemotherapy. He wants to continue therapy. Nutritional deficiencies (1 source) Vitamin D deficiency, unspecified; Translations: [Vitamin D deficiency, unspecified] Onset: 5 Chronic Other aftercare (20 sources) History of placement of gastrostomy tube; Translations: [Encounter for follow-up examination after completed treatment for conditions other than malignant neoplasm] 07-13-2024 Episodic Other aftercare (2 sources) Encounter for adjustment and management of vascular access device; Translations: [Encounter for adjustment and management of vascular access device] Onset: 5 Episodic Other circulatory disease (1 source) Presence of other vascular implants and grafts; Translations: [Presence of other vascular implants and grafts] Onset: Chronic Other gastrointestinal disorders (20 sources) Gastrostomy present; Translations: [Gastrostomy status] 06-03-2024 Chronic Other gastrointestinal disorders (14 sources) Dysphagia; Translations: [Dysphagia, unspecified] 07-22-2024 Episodic Other lower respiratory disease (20 sources) Dyspnea; Translations: [Shortness of breath] 05-20-2019 Episodic Other lower respiratory disease (20 sources) Hypoxia; Translations: [Hypoxemia] 05-19-2019 Episodic Other lower respiratory disease (20 sources) Nodule of lung; Translations: [Solitary pulmonary nodule] Onset: 5 05-08-2022 Episodic Other lower respiratory disease (5 sources) Solitary pulmonary nodule; Translations: [Solitary pulmonary nodule] 05-08-2022 Episodic Other nervous system disorders (5 sources) Postoperative pain ; Translations: [Other acute postprocedural pain] Onset: 5 06-11-2024 Episodic Other nervous system disorders (1 source) Other acute postprocedural pain; Translations: [Other acute postprocedural pain] Onset: 5 Episodic Other non-traumatic joint disorders (6 sources) Shoulder pain; Translations: [Pain in right shoulder] 03-13-2021 Episodic Other non-traumatic joint disorders (16 sources) Pain in right shoulder; Translations: [Pain in joint, shoulder region] Episodic Other nutritional; endocrine; and metabolic disorders (20 sources) Body mass index 30+ - obesity; Translations: [Body mass index (BMI) 38.0-38.9, adult] 05-20-2019 Chronic Other nutritional; endocrine; and metabolic disorders (2 sources) Body mass index (BMI) 38.0-38.9, adult; Translations: [Body Mass Index 38.0-38.9, adult] 05-21-2022 Chronic Other screening for suspected conditions (not mental disorders or infectious disease) (20 sources) Mixed obstructive and restrictive ventilatory defect; Translations: [Abnormal results of pulmonary function studies] Onset: 5 Episodic Other skin disorders (20 sources) Eruption; Translations: [Rash and other nonspecific skin eruption] 08-03-2024 Episodic Comment on above: Due to chemotherapy most likely Taxol. Other skin disorders (1 source) Rash and other nonspecific skin eruption; Translations: [Rash and other nonspecific skin eruption] Onset: 5 Episodic Other upper respiratory disease (16 sources) Bleeding from nose; Translations: [Epistaxis] 08-10-2024 Episodic Other upper respiratory disease (1 source) Epistaxis; Translations: [Epistaxis] Onset: 5 Episodic Pulmonary heart disease (20 sources) Saddle embolus of pulmonary artery; Translations: [Saddle embolus of pulmonary artery without acute cor pulmonale] Onset: 5 05-20-2019 Chronic Comment on above: 2019 Pulmonary heart disease (20 sources) H/O: pulmonary embolus; Translations: [Personal history of pulmonary embolism] Onset: 5 Episodic Residual codes; unclassified (20 sources) Obstructive sleep apnea syndrome; Translations: [Obstructive sleep apnea (adult) (pediatric)] Onset: 5 05-20-2019 Chronic Secondary malignancies (1 source) Secondary and unspecified malignant neoplasm of lymph nodes of head, face and neck; Translations: [Secondary and unspecified malignant neoplasm of lymph nodes of head, face and neck] Onset: 5 Chronic Substance-related disorders (20 sources) Tobacco dependence in remission; Translations: [Nicotine dependence, cigarettes, in remission] Onset: Chronic Comment on above: 03/26 ppd for 53 years quit 04/03/18 Unclassified (20 sources) Primary squamous cell carcinoma of base of tongue; Translations: [C01 - Malignant neoplasm of base of tongue] Past or Other Problems Problem Classification Problem Date Documented Da te Episodic/Chronic Other and unspecified benign neoplasm (16 sources) Adenolymphoma; 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, unspecified] Onset: 04-28-2024 04-28-2024 Episodic Other and unspecified benign neoplasm (1 source) Benign neoplasm of major salivary gland, unspecified; 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, unspecified] Onset: 04-28-2024 Episodic Other ear and sense organ disorders (10 sources) Tinnitus of left ear; Translations: [Tinnitus, left ear] Onset: 08-03-2023 06-04-2024 Episodic Other gastrointestinal disorders (4 sources) Oropharyngeal dysphagia; Translations: [Dysphagia, oropharyngeal phase] Onset: 05-13-2024 05-13-2024 Episodic Other gastrointestinal disorders (1 source) Dysphagia, oropharyngeal phase; Translations: [Dysphagia, oropharyngeal phase] Onset: 05-13-2024 Episodic Other non-epithelial cancer of skin (1 source) Squamous cell carcinoma of skin, unspecified; Translations: [Squamous cell carcinoma of skin, unspecified] Onset: 05-22-2024 Episodic Other skin disorders (18 sources) Mass of neck; Translations: [Localized swelling, mass and lump, neck] Onset: 04-28-2024 04-28-2024 Episodic Other skin disorders (10 sources) Finding of neck region; Translations: [Localized swelling, mass and lump, neck] Onset: 04-13-2024 06-04-2024 Episodic Other skin disorders (2 sources) Localized swelling, mass and lump, neck; Translations: [Localized swelling, mass and lump, neck] Onset: 04-28-2024 Episodic Other upper respiratory disease (16 sources) Mass of head; Translations: [Other diseases of pharynx] Onset: 04-28-2024 05-08-2024 Episodic Other upper respiratory disease (1 source) Other diseases of pharynx; Translations: [Other diseases of pharynx] Onset: 05-08-2024 Episodic Results Test Name Value Interpretation Reference Range Facility Absolute lymphocyte countOrd ered By: Franco Pérez on 09-15-2024 Lymphocytes Auto (Unsp spec) [#/Vol] 0.36 10*3/uL Low 0.83-4.51 [facility] Absolute neutrophil countOrd ered By: Franco Péerz on 09-15-2024 Neutrophils (Bld) [#/Vol] 6.4 10*3/uL 2.0-7.7 [facility] Anion gap in Serum or Plasma Ordered By: Franco Pérez on 09-15-2024 Anion gap [Moles/Vol] 16 mmol/L High 5-15 [facility] Automated [facility] count a s percentage of total leukocytesOrdered By: Franco Anderson on 09-15-2024 Lymphocytes/100 WBC Auto (Unsp spec) 4.3 % Low 19-41 [facility] BUN/creatinine ratioOrdered By: Franco Anderson on 09-15-2024 Urea nitrogen/Creatinine [Mass ratio] 26.6 mg/mg High 10-20 [facility] Basophil percentageOrdered B y: Franco Pérez on 09-15-2024 Basophils/100 WBC (Bld) 0.8 % 0-1 [facility] Bilirubin, totalOrdered By: Franco [facility] on 09-15-2024 Bilirubin [Mass/Vol] 1.38 mg/dL High 0.00-1.30 [facility] CBC W/Diff, Automatedon 08-24 Absolute Lymph 0.36 X10 3/uL Low 0.83-4.51 [facility] Comment on above: Performed By: #### L 504.2610, L506.0400, L501.9520, L501.2300, L501.5200, L100.0100, L500.4050 ####[facility] [address] [place], [address] Absolute Neut 6.4 X10 3/uL Normal 2.0-7.7 [facility] Comment on above: Performed By: #### L 504.2610, L506.0400, L501.9520, L501.2300, L501.5200, L100.0100, L500.4050 ####[facility] [address] [place], [address] Basophils/100 WBC (Bld) 0.8 % Normal 0-1 [facility] Comment on above: Performed By: #### L 504.2610, L506.0400, L501.9520, L501.2300, L501.5200, L100.0100, L500.4050 ####[facility] [address] [place], [address] Eosinophils/100 WBC (Bld) 1.6 % Normal 0-5 [facility] Comment on above: Performed By: #### L 504.2610, L506.0400, L501.9520, L501.2300, L501.5200, L100.0100, L500.4050 ####[facility] [address] [place], [address] Erythrocyte distribution width (RBC) [Ratio] 17.9 % High 11.6-14.6 [facility] Comment on above: Performed By: #### L 504.2610, L506.0400, L501.9520, L501.2300, L501.5200, L100.0100, L500.4050 ####[facility] [address] [place], [address] Hematocrit (Bld) [Volume fraction] 38.3 % Low 40-54 [facility] Comment on above: Performed By: #### L 504.2610, L506.0400, L501.9520, L501.2300, L501.5200, L100.0100, L500.4050 ####[facility] [address] [place], [address] Hemoglobin (Bld) [Mass/Vol] 12.6 g/dL Low 13.0-16.5 [facility] Comment on above: Performed By: #### L 504.2610, L506.0400, L501.9520, L501.2300, L501.5200, L100.0100, L500.4050 ####[facility] [address] [place], [address] IG% 2.200 High 0.0-0.9 [facility] Comment on above: Result Comment: IG% - Immature Granulocytes (promyelocytes, myelocytes andmetamyelocytes) > 1% indicates that a LEFT SHIFT is Present. Performed By: #### L 504.2610, L506.0400, L501.9520, L501.2300, L501.5200, L100.0100, L500.4050 ####[facility] [address] [place], [address] Lymphocytes/100 WBC (Bld) 4.3 % Low 19-41 [facility] Comment on above: Performed By: #### L 504.2610, L506.0400, L501.9520, L501.2300, L501.5200, L100.0100, L500.4050 ####[facility] [address] [place], [address] MCH (RBC) [Entitic mass] 30.5 pg Normal 27.0-32.0 [facility] Comment on above: Performed By: #### L 504.2610, L506.0400, L501.9520, L501.2300, L501.5200, L100.0100, L500.4050 ####[facility] [address] [place], [address] MCHC (RBC) [Mass/Vol] 32.9 g/dL Normal 32-36 [facility] Comment on above: Performed By: #### L 504.2610, L506.0400, L501.9520, L501.2300, L501.5200, L100.0100, L500.4050 ####[facility] [address] [place], [address] MCV (RBC) [Entitic vol] 92.7 fL Normal 80-94 [facility] Comment on above: Performed By: #### L 504.2610, L506.0400, L501.9520, L501.2300, L501.5200, L100.0100, L500.4050 ####[facility] [address] [place], [address] Monocytes/100 WBC (Bld) 14.9 % High 0-10 [facility] Comment on above: Performed By: #### L 504.2610, L506.0400, L501.9520, L501.2300, L501.5200, L100.0100, L500.4050 ####[facility] [address] [place], [address] Neutrophils/100 WBC (Bld) 76.2 % High 47-70 [facility] Comment on above: Performed By: #### L 504.2610, L506.0400, L501.9520, L501.2300, L501.5200, L100.0100, L500.4050 ####[facility] [address] [place], [address] Nucleated RBC (Bld) [#/Vol] 0 10*3/uL Normal 0-5 [facility] Comment on above: Performed By: #### L 504.2610, L506.0400, L501.9520, L501.2300, L501.5200, L100.0100, L500.4050 ####[facility] [address] [place], [address] Platelet mean volume (Bld) [Entitic vol] 10.6 fL Normal 6.2-12.0 [facility] Comment on above: Performed By: #### L 504.2610, L506.0400, L501.9520, L501.2300, L501.5200, L100.0100, L500.4050 ####[facility] [address] [place], [address] Platelets (Bld) [#/Vol] 87 10*3/uL Low 150-450 [facility] Comment on above: Performed By: #### L 504.2610, L506.0400, L501.9520, L501.2300, L501.5200, L100.0100, L500.4050 ####[facility] [address] [place], [address] RBC (Bld) [#/Vol] 4.13 10*6/uL Low 4.6-6.2 [facility] Comment on above: Performed By: #### L 504.2610, L506.0400, L501.9520, L501.2300, L501.5200, L100.0100, L500.4050 ####[facility] [address] [place], [place], [phone]) RDW SD 60.4 fl High 35.1-43.9 [facility] Comment on above: Performed By: #### L 504.2610, L506.0400, L501.9520, L501.2300, L501.5200, L100.0100, L500.4050 ####[facility] [address] [place], [place], [phone]) WBC (Bld) [#/Vol] 8.4 10*3/uL Normal 4.4-11.0 [facility] Comment on above: Performed By: #### L 504.2610, L506.0400, L501.9520, L501.2300, L501.5200, L100.0100, L500.4050 ####[facility] [address] [place], [place], [id number] Carbon dioxide, total [Moles /volume] in Central venous bloodOrdered By: Franco Pérez on 09-15-2024 CO2 [Moles/Vol] 23.5 mmol/L 21.0-32.0 [facility] Chloride assayOrdered By: Kala Pérez on 09-15-2024 Chloride [Moles/Vol] 96 mmol/L Low 98-108 [facility] Comprehensive Metabolic Prof ilon 09-15-2024 Albumin [Mass/Vol] 3.5 g/dL Normal 3.4-4.8 [facility] Comment on above: Performed By: #### L 504.2610, L506.0400, L501.9520, L501.2300, L501.5200, L100.0100, L500.4050 ####[facility] [address] [place], [address] Albumin/Globulin [Mass ratio] 1.2 {ratio} Normal 0.9-2.4 [facility] Comment on above: Performed By: #### L 504.2610, L506.0400, L501.9520, L501.2300, L501.5200, L100.0100, L500.4050 ####[facility] [address] [place], [address] ALK PHOS 113 U/L Normal 40-129 [facility] Comment on above: Performed By: #### L 504.2610, L506.0400, L501.9520, L501.2300, L501.5200, L100.0100, L500.4050 ####[facility] [address] [place], [address] ALT [Catalytic activity/Vol] 13 U/L Normal <=46 [facility] Comment on above: Performed By: #### L 504.2610, L506.0400, L501.9520, L501.2300, L501.5200, L100.0100, L500.4050 ####[facility] [address] [place], [address] AST [Catalytic activity/Vol] 19 U/L Normal <=37 [facility] Comment on above: Performed By: #### L 504.2610, L506.0400, L501.9520, L501.2300, L501.5200, L100.0100, L500.4050 ####[facility] [address] [place], [address] Bilirubin [Mass/Vol] 1.38 mg/dL High 0.00-1.30 [facility] Comment on above: Performed By: #### L 504.2610, L506.0400, L501.9520, L501.2300, L501.5200, L100.0100, L500.4050 ####[facility] [address] [place], [address] BUN/CRE 26.6 RATIO High 10-20 [facility] Comment on above: Performed By: #### L 504.2610, L506.0400, L501.9520, L501.2300, L501.5200, L100.0100, L500.4050 ####[facility] [address] [place], [address] Calcium [Mass/Vol] 9.4 mg/dL Normal 7.6-11.0 [facility] Comment on above: Performed By: #### L 504.2610, L506.0400, L501.9520, L501.2300, L501.5200, L100.0100, L500.4050 ####[facility] [address] [place], [address] Chloride [Moles/Vol] 96 mmol/L Low 98-108 [facility] Comment on above: Performed By: #### L 504.2610, L506.0400, L501.9520, L501.2300, L501.5200, L100.0100, L500.4050 ####[facility] [address] [place], [address] CO2 [Moles/Vol] 23.5 mmol/L Normal 21.0-32.0 [facility] Comment on above: Performed By: #### L 504.2610, L506.0400, L501.9520, L501.2300, L501.5200, L100.0100, L500.4050 ####[facility] [address] [place], [address] Creatinine [Mass/Vol] 1.16 mg/dL Normal 0.70-1.20 [facility] Comment on above: Performed By: #### L 504.2610, L506.0400, L501.9520, L501.2300, L501.5200, L100.0100, L500.4050 ####[facility] [address] [place], [address] ECRCL 77.16 ml/min Normal 50-250 [facility] Comment on above: Performed By: #### L 504.2610, L506.0400, L501.9520, L501.2300, L501.5200, L100.0100, L500.4050 ####[facility] [address] [place], [address] GAP 16 High 5-15 [facility] Comment on above: Performed By: #### L 504.2610, L506.0400, L501.9520, L501.2300, L501.5200, L100.0100, L500.4050 ####[facility] [address] [place], [place], [phone] GFR/1.73 sq M.predicted among non-blacks MDRD (S/P/Bld) [Vol rate/Area] 67 mL/min/{1.73_m2} Normal >60 [facility] Comment on above: Result Comment: mL/m in/1.73m2 CKD-EPI Creatinine Equation (2020) Performed By: #### L 504.2610, L506.0400, L501.9520, L501.2300, L501.5200, L100.0100, L500.4050 ####[facility] [address] [place], [place], [phone]) Globulin (S) [Mass/Vol] 2.9 g/dL Normal 2.2-4.2 [facility] Comment on above: Performed By: #### L 504.2610, L506.0400, L501.9520, L501.2300, L501.5200, L100.0100, L500.4050 ####[facility] [address] [place], [address] Glucose [Mass/Vol] 160 mg/dL High 70-99 [facility] Comment on above: Performed By: #### L 504.2610, L506.0400, L501.9520, L501.2300, L501.5200, L100.0100, L500.4050 ####[facility] [address] [place], [address] Potassium [Moles/Vol] 3.3 mmol/L Normal 3.3-5.1 [facility] Comment on above: Performed By: #### L 504.2610, L506.0400, L501.9520, L501.2300, L501.5200, L100.0100, L500.4050 ####[facility] [address] [place], [address] Sodium [Moles/Vol] 135 mmol/L Normal 133-145 [facility] Comment on above: Performed By: #### L 504.2610, L506.0400, L501.9520, L501.2300, L501.5200, L100.0100, L500.4050 ####[facility] [address] [place], [address] T PROT 6.4 g/dL Normal 5.9-8.4 [facility] Comment on above: Performed By: #### L 504.2610, L506.0400, L501.9520, L501.2300, L501.5200, L100.0100, L500.4050 ####[facility] [address] [place], [address] Urea nitrogen [Mass/Vol] 31 mg/dL High 4-19 [facility] Comment on above: Performed By: #### L 504.2610, L506.0400, L501.9520, L501.2300, L501.5200, L100.0100, L500.4050 ####[facility] [address] [place], [address] Eosinophil percentageOrdered By: Franco Pérez on 09-15-2024 Eosinophils/100 WBC (Bld) 1.6 % 0-5 [facility] Erythrocyte distribution wid th ratioOrdered By: Franco Pérez on 09-15-2024 Erythrocyte distribution width (RBC) [Ratio] 17.9 % High 11.6-14.6 [facility] Erythrocyte distribution wid th standard deviationOrdered By: [facility] on 09-15-2024 Erythrocyte distribution width (RBC) [Ratio] 60.4 fl High 35.1-43.9 [facility] Glomerular filtration rate ( GFR) estimation/1.73 sq m using serum, plasma, or whole bOrdered By: [facility] on 09-15-2024 GFR/1.73 sq M.predicted among non-blacks MDRD (S/P/Bld) [Vol rate/Area] 67 mL/min/{1.73_m2} >60 [facility] Comment on above: mL/min/1.73m2 CKD-EP I Creatinine Equation (2020) Hematocrit Auto (Bld) [Volum e fraction]Ordered By: Franco Pérez on 09-15-2024 Hematocrit (Bld) [Volume fraction] 38.3 % Low 40-54 [facility] Hemoglobin measurementOrdere d By: Franco Pérez on 09-15-2024 Hemoglobin (Bld) [Mass/Vol] 12.6 g/dL Low 13.0-16.5 [facility] Immature granulocytes/100 WB C Auto (Bld)Ordered By: Franco Pérez on 09-15-2024 Immature granulocytes/100 WBC (Bld) 2.200 % High 0.0-0.9 [facility] Comment on above: IG% - Immature Granu locytes (promyelocytes, myelocytes and metamyelocytes) > 1% indicates that a LEFT SHIFT is Present. LDHon 09-15-2024 LDH 238 U/L Normal 87-241 [facility] Comment on above: Order Comment: 1 Performed By: #### L 504.2610, L506.0400, L501.9520, L501.2300, L501.5200, L100.0100, L500.4050 ####[facility] [address] [place], [place], [id number] Laboratory - Chemistry and C hemistry - challengeOrdered By: Franco Pérez on 09-15-2024 AST [Catalytic activity/Vol] 19 U/L <38 [facility] Lactate dehydrogenase (LDH) measurementOrdered By: Franco Pérez on 09-15-2024 LDH [Catalytic activity/Vol] 238 U/L 87-241 [facility] MCV (mean corpuscular volume ) determinationOrdered By: Franco Pérez on 09-15-2024 MCV (RBC) [Entitic vol] 92.7 fL 80-94 [facility] Magnesiumon 09-15-2024 Magnesium [Mass/Vol] 1.8 mg/dL Normal 1.5-2.2 [facility] Comment on above: Performed By: #### L 504.2610, L506.0400, L501.9520, L501.2300, L501.5200, L100.0100, L500.4050 ####[facility] [address] [place], [place], [address] Magnesium measurement (mass/ volume)Ordered By: Franco Pérez on 09-15-2024 Magnesium (Unsp spec) [Mass/Vol] 1.8 mg/dL 1.5-2.2 [facility] Mean corpuscular hemoglobin (MCH) determinationOrdered By: Franco Pérez on 09-15-2024 MCH (RBC) [Entitic mass] 30.5 pg 27.0-32.0 [facility] Mean corpuscular hemoglobin concentration (MCHC) determinationOrdered By: Franco Pérez on 09-15-2024 MCHC (RBC) [Mass/Vol] 32.9 g/dL 32-36 [facility] Mean platelet volume determi nationOrdered By: Franco Pérez on 09-15-2024 Platelet mean volume (Bld) [Entitic vol] 10.6 fL 6.2-12.0 [facility] Monocyte percentageOrdered B y: Franco Pérez on 09-15-2024 Monocytes/100 WBC (Bld) 14.9 % High 0-10 [facility] Neutrophil percentageOrdered By: Franco Pérez on 09-15-2024 Neutrophils/100 WBC (Bld) 76.2 % High 47-70 [facility] Nucleated red blood cell per centageOrdered By: Franco Pérez on 09-15-2024 Nucleated RBC/100 WBC (Bld) [Ratio] 0 % 0-5 [facility] Oncology Visit Reporton 08-24 Oncology Visit Report Normal [facility] Phosphoruson 09-15-2024 Phosphate [Mass/Vol] 2.7 mg/dL Normal 2.7-4.5 [facility] Comment on above: Performed By: #### L [id number], L506.0400, L501.9520, L501.2300, L501.5200, L100.0100, L500.4050 ####[facility] [address] [place], [address] Platelet countOrdered By: Kala Pérez on 09-15-2024 Platelets (Bld) [#/Vol] 87 10*3/uL Low 150-450 [facility] Potassium measurement (mass/ volume)Ordered By: Franco Pérez on 09-15-2024 Potassium (Unsp spec) [Mass/Vol] 3.3 mmol/L 3.3-5.1 [facility] RBC Auto (Bld) [#/Vol]Ordere d By: Franco Pérez on 09-15-2024 RBC (Bld) [#/Vol] 4.13 10*6/uL Low 4.6-6.2 [facility] Radiation Oncology Visiton 0 09-15-2024 Radiation Oncology Visit Normal [facility] Serum creatinine measurement (mass/volume)Ordered By: Franco Pérez on 09-15-2024 Creatinine [Mass/Vol] 1.16 mg/dL 0.70-1.20 [facility] Serum globulin measurementOr dered By: Franco Pérez on 09-15-2024 Globulin (S) [Mass/Vol] 2.9 g/dL 2.2-4.2 [facility] Serum glucose measurement (m ass/volume)Ordered By: Franco Pérez on 09-15-2024 Glucose [Mass/Vol] 160 mg/dL High 70-99 [facility] Serum or plasma alanine cabral otransferase (ALT) measurementOrdered By: Franco Pérez on 09-15-2024 ALT [Catalytic activity/Vol] 13 U/L <47 [facility] Serum or plasma albumin blaine urement (mass/volume)Ordered By: Franco Pérez on 09-15-2024 Albumin [Mass/Vol] 3.5 g/dL 3.4-4.8 [facility] Serum or plasma albumin/glob ulin mass ratioOrdered By: Franco Pérez on 09-15-2024 Albumin/Globulin [Mass ratio] 1.2 {ratio} 0.9-2.4 [facility] Serum or plasma alkaline zee sphatase measurementOrdered By: Franco Pérez on 09-15-2024 ALP [Catalytic activity/Vol] 113 U/L 40-129 [facility] Serum or plasma calcium blaine urement (mass/volume)Ordered By: Franco Pérez on 09-15-2024 Calcium [Mass/Vol] 9.4 mg/dL 7.6-11.0 [facility] Serum or plasma urea nitroge n measurement (mass/volume)Ordered By: Franco Pérez on 09-15-2024 Urea nitrogen [Mass/Vol] 31 mg/dL High 4-19 [facility] Sodium levelOrdered By: Jonathon Pérez on 09-15-2024 Sodium [Moles/Vol] 135 mmol/L 133-145 [facility] T4 Free Directon 09-15-2024 T4 FREE DIRECT 1.30 ng/dL Normal 0.76-1.46 [facility] Comment on above: Performed By: #### L [id number], L506.0400, L501.9520, L501.2300, L501.5200, L100.0100, L500.4050 ####[facility] [address] [place], [address] T4 freeOrdered By: Franco hernandez on 09-15-2024 Free T4 [Mass/Vol] 1.30 ng/dL 0.76-1.46 [facility] TSH DL <= 0.005 mIU/L QnOrde red By: Franco Pérez on 09-15-2024 TSH Qn 0.992 uIU/mL 0.300-4.20 0 [facility] Thyroid Stim Hormone (TSH)on 09-15-2024 TSH 0.992 uIU/mL Normal 0.300-4.20 0 [facility] Comment on above: Performed By: #### L [id number], L506.0400, L501.9520, L501.2300, L501.5200, L100.0100, L500.4050 ####[facility] [address] [place], [place], [address] Total proteinOrdered By: Faheem Pérez on 09-15-2024 Protein [Mass/Vol] 6.4 g/dL 5.9-8.4 [facility] White blood cell (WBC) count Ordered By: Franco Pérez on 09-15-2024 WBC (Bld) [#/Vol] 8.4 10*3/uL 4.4-11.0 [facility] Radiation Oncology Visiton 0 - Radiation Oncology Visit Normal [facility] Radiation Oncology Visiton 0 08-19-2024 Radiation Oncology Visit Normal [facility] Absolute lymphocyte countOrd ered By: Franco Pérez on 08-18-2024 Lymphocytes Auto (Unsp spec) [#/Vol] 0.11 10*3/uL Low 0.83-4.51 [facility] Absolute neutrophil countOrd ered By: Franco Pérez on 08-18-2024 Neutrophils (Bld) [#/Vol] 1.7 10*3/uL Low 2.0-7.7 [facility] Anion gap in Serum or Plasma Ordered By: Franco Pérez on 08-18-2024 Anion gap [Moles/Vol] 12 mmol/L 5-15 [facility] Automated lymphocyte count a s percentage of total leukocytesOrdered By: Franco Pérez on 08-18-2024 Lymphocytes/100 WBC Auto (Unsp spec) 4.8 % Low 19-41 [facility] BUN/creatinine ratioOrdered By: Franco Pérez on 08-18-2024 Urea nitrogen/Creatinine [Mass ratio] 20.9 mg/mg High 10-20 [facility] Basophil percentageOrdered B y: Franco Pérez on 08-18-2024 Basophils/100 WBC (Bld) 0.4 % 0-1 [facility] Bilirubin, totalOrdered By: Franco Pérez on 08-18-2024 Bilirubin [Mass/Vol] 1.38 mg/dL High 0.00-1.30 [facility] Blood polychromasia detectio n by light microscopyOrdered By: Franco Pérez on 08-18-2024 Polychromasia LM Ql (Bld) 1+ [facility] CBC W/Diff, Automatedon 07-24 PLT EST SLT DEC Normal ADEQ [facility] Comment on above: Performed By: #### L 500.4050, L100.0100, L501.5200, L501.2300 ####[facility] [address] [place], [address] POLYCHROMASIA 1+ Normal [facility] Comment on above: Performed By: #### L 500.4050, L100.0100, L501.5200, L501.2300 ####[facility] [address] [place], [address] RED CELL MORPH NORM C+C Normal NORM C C [facility] Comment on above: Performed By: #### L 500.4050, L100.0100, L501.5200, L501.2300 ####[facility] [address] [place], [address] Carbon dioxide, total [Moles /volume] in Central venous bloodOrdered By: Franco Pérez on 08-18-2024 CO2 [Moles/Vol] 24.3 mmol/L 21.0-32.0 [facility] Chloride assayOrdered By: Kala Pérez on 08-18-2024 Chloride [Moles/Vol] 102 mmol/L 98-108 [facility] Comprehensive Metabolic Prof ilon 08-18-2024 Albumin [Mass/Vol] 3.7 g/dL Normal 3.4-4.8 [facility] Comment on above: Performed By: #### L 500.4050, L100.0100, L501.5200, L501.2300 ####[facility] [address] [place], [address] Albumin/Globulin [Mass ratio] 1.2 {ratio} Normal 0.9-2.4 [facility] Comment on above: Performed By: #### L 500.4050, L100.0100, L501.5200, L501.2300 ####[facility] [address] [place], [address] ALK PHOS 104 U/L Normal 40-129 [facility] Comment on above: Performed By: #### L 500.4050, L100.0100, L501.5200, L501.2300 ####[facility] [address] [place], [address] ALT [Catalytic activity/Vol] 24 U/L Normal <=46 [facility] Comment on above: Performed By: #### L 500.4050, L100.0100, L501.5200, L501.2300 ####[facility] [address] [place], [address] AST [Catalytic activity/Vol] 20 U/L Normal <=37 [facility] Comment on above: Performed By: #### L 500.4050, L100.0100, L501.5200, L501.2300 ####[facility] [address] [place], [address] Bilirubin [Mass/Vol] 1.38 mg/dL High 0.00-1.30 [facility] Comment on above: Performed By: #### L 500.4050, L100.0100, L501.5200, L501.2300 ####[facility] [address] [place], [address] BUN/CRE 20.9 RATIO High 10-20 [facility] Comment on above: Performed By: #### L 500.4050, L100.0100, L501.5200, L501.2300 ####[facility] [address] [place], [address] Calcium [Mass/Vol] 9.4 mg/dL Normal 7.6-11.0 [facility] Comment on above: Performed By: #### L 500.4050, L100.0100, L501.5200, L501.2300 ####[facility] [address] [place], [address] Chloride [Moles/Vol] 102 mmol/L Normal 98-108 [facility] Comment on above: Performed By: #### L 500.4050, L100.0100, L501.5200, L501.2300 ####[facility] [address] [place], [address] CO2 [Moles/Vol] 24.3 mmol/L Normal 21.0-32.0 [facility] Comment on above: Performed By: #### L 500.4050, L100.0100, L501.5200, L501.2300 ####[facility] [address] [place], [address] Creatinine [Mass/Vol] 0.93 mg/dL Normal 0.70-1.20 [facility] Comment on above: Performed By: #### L 500.4050, L100.0100, L501.5200, L501.2300 ####[facility] [address] [place], [address] ECRCL 100.62 ml/min Normal 50-250 [facility] Comment on above: Performed By: #### L 500.4050, L100.0100, L501.5200, L501.2300 ####[facility] [address] [place], [address] GAP 12 Normal 5-15 [facility] Comment on above: Performed By: #### L 500.4050, L100.0100, L501.5200, L501.2300 ####[facility] [address] [place], [address] GFR/1.73 sq M.predicted among non-blacks MDRD (S/P/Bld) [Vol rate/Area] 87 mL/min/{1.73_m2} Normal >60 [facility] Comment on above: Result Comment: mL/m in/1.73m2 CKD-EPI Creatinine Equation (2020) Performed By: #### L 500.4050, L100.0100, L501.5200, L501.2300 ####[facility] [address] [place], [address] Globulin (S) [Mass/Vol] 3.0 g/dL Normal 2.2-4.2 [facility] Comment on above: Performed By: #### L 500.4050, L100.0100, L501.5200, L501.2300 ####[facility] [address], [address] Glucose [Mass/Vol] 195 mg/dL High 70-99 [facility] Comment on above: Performed By: #### L 500.4050, L100.0100, L501.5200, L501.2300 ####[facility] [address] [place], [address] Potassium [Moles/Vol] 4.5 mmol/L Normal 3.3-5.1 [facility] Comment on above: Performed By: #### L 500.4050, L100.0100, L501.5200, L501.2300 ####[facility] [address] [place], [address] Sodium [Moles/Vol] 138 mmol/L Normal 133-145 [facility] Comment on above: Performed By: #### L 500.4050, L100.0100, L501.5200, L501.2300 ####[facility] [address] [place], [address] T PROT 6.7 g/dL Normal 5.9-8.4 [facility] Comment on above: Performed By: #### L 500.4050, L100.0100, L501.5200, L501.2300 ####[facility] [address] [place], [address] Urea nitrogen [Mass/Vol] 20 mg/dL High 4-19 [facility] Comment on above: Performed By: #### L 500.4050, L100.0100, L501.5200, L501.2300 ####[facility] [address] [place], [address] Eosinophil percentageOrdered By: Franco Pérez on 08-18-2024 Eosinophils/100 WBC (Bld) 0.4 % 0-5 [facility] Erythrocyte distribution wid th ratioOrdered By: Franco Pérez on 08-18-2024 Erythrocyte distribution width (RBC) [Ratio] 15.9 % High 11.6-14.6 [facility] Erythrocyte distribution wid th standard deviationOrdered By: Franco Pérez on 08-18-2024 Erythrocyte distribution width (RBC) [Ratio] 49.9 fl High 35.1-43.9 [facility] Erythrocyte morphology asses smentOrdered By: Franco Pérez on 08-18-2024 RBC morphology finding Nom (Bld) NORM C+C NORMAL NORM C&C [facility] Glomerular filtration rate ( GFR) estimation/1.73 sq m using serum, plasma, or whole bOrdered By: Franco Pérez on 08-18-2024 GFR/1.73 sq M.predicted among non-blacks MDRD (S/P/Bld) [Vol rate/Area] 87 mL/min/{1.73_m2} >60 [facility] Comment on above: mL/min/1.73m2 CKD-EP I Creatinine Equation (2020) Hematocrit Auto (Bld) [Volum e fraction]Ordered By: Franco Pérez on 08-18-2024 Hematocrit (Bld) [Volume fraction] 36.2 % Low 40-54 [facility] Hemoglobin measurementOrdere d By: Franco Pérez on 08-18-2024 Hemoglobin (Bld) [Mass/Vol] 12.0 g/dL Low 13.0-16.5 [facility] Immature granulocytes/100 WB C Auto (Bld)Ordered By: Franco Pérez on 08-18-2024 Immature granulocytes/100 WBC (Bld) 1.300 % High 0.0-0.9 [facility] Comment on above: IG% - Immature Granu locytes (promyelocytes, myelocytes and metamyelocytes) > 1% indicates that a LEFT SHIFT is Present. Laboratory - Chemistry and C hemistry - challengeOrdered By: Franco Pérez on 08-18-2024 AST [Catalytic activity/Vol] 20 U/L <38 [facility] MCV (mean corpuscular volume ) determinationOrdered By: Franco Beto on 08-18-2024 MCV (RBC) [Entitic vol] 92.1 fL 80-94 [facility] Magnesiumon 08-18-2024 Magnesium [Mass/Vol] 2.0 mg/dL Normal 1.5-2.2 [facility] Comment on above: Performed By: #### L 500.4050, L100.0100, L501.5200, L501.2300 ####[facility] [address] [place], [address] Magnesium measurement (mass/ volume)Ordered By: Franco [facility] on 08-18-2024 Magnesium (Unsp spec) [Mass/Vol] 2.0 mg/dL 1.5-2.2 [facility] Mean corpuscular hemoglobin (MCH) determinationOrdered By: Franco Pérez on 08-18-2024 MCH (RBC) [Entitic mass] 30.5 pg 27.0-32.0 [facility] Mean corpuscular hemoglobin concentration (MCHC) determinationOrdered By: Franco Pérez on 08-18-2024 MCHC (RBC) [Mass/Vol] 33.1 g/dL 32-36 [facility] Mean platelet volume determi nationOrdered By: Franco Pérez on 08-18-2024 Platelet mean volume (Bld) [Entitic vol] 10.0 fL 6.2-12.0 [facility] Monocyte percentageOrdered B y: Franco Pérez on 08-18-2024 Monocytes/100 WBC (Bld) 17.5 % High 0-10 [facility] Neutrophil percentageOrdered By: Franco Pérez on 08-18-2024 Neutrophils/100 WBC (Bld) 75.6 % High 47-70 [facility] Nucleated red blood cell per centageOrdered By: Franco Pérez on 08-18-2024 Nucleated RBC/100 WBC (Bld) [Ratio] 0 % 0-5 [facility] Oncology Visit Reporton 07-24 Oncology Visit Report Normal [facility] Phosphoruson 08-18-2024 Phosphate [Mass/Vol] 2.9 mg/dL Normal 2.7-4.5 [facility] Comment on above: Performed By: #### L 500.4050, L100.0100, L501.5200, L501.2300 ####[facility] [address] [place], [place], [address] Platelet countOrdered By: Kala Pérez on 08-18-2024 Platelets (Bld) [#/Vol] 108 10*3/uL Low 150-450 [facility] Platelet estimateOrdered By: Franco Pérez on 08-18-2024 Platelets LM Ql (Bld) SLT DEC ADEQ [facility] Potassium measurement (mass/ volume)Ordered By: Franco Pérez on 08-18-2024 Potassium (Unsp spec) [Mass/Vol] 4.5 mmol/L 3.3-5.1 [facility] RBC Auto (Bld) [#/Vol]Ordere d By: Franco Pérez on 08-18-2024 RBC (Bld) [#/Vol] 3.93 10*6/uL Low 4.6-6.2 [facility] Serum creatinine measurement (mass/volume)Ordered By: Franco Pérez on 08-18-2024 Creatinine [Mass/Vol] 0.93 mg/dL 0.70-1.20 [facility] Serum globulin measurementOr dered By: Franco Pérez on 08-18-2024 Globulin (S) [Mass/Vol] 3.0 g/dL 2.2-4.2 [facility] Serum glucose measurement (m ass/volume)Ordered By: Franco Pérez on 08-18-2024 Glucose [Mass/Vol] 195 mg/dL High 70-99 [facility] Serum or plasma alanine cabral otransferase (ALT) measurementOrdered By: Franco Pérez on 08-18-2024 ALT [Catalytic activity/Vol] 24 U/L <47 [facility] Serum or plasma albumin blaine urement (mass/volume)Ordered By: Franco Pérez on 08-18-2024 Albumin [Mass/Vol] 3.7 g/dL 3.4-4.8 [facility] Serum or plasma albumin/glob ulin mass ratioOrdered By: Franco Pérez on 08-18-2024 Albumin/Globulin [Mass ratio] 1.2 {ratio} 0.9-2.4 [facility] Serum or plasma alkaline zee sphatase measurementOrdered By: Franco Pérez on 08-18-2024 ALP [Catalytic activity/Vol] 104 U/L 40-129 [facility] Serum or plasma calcium blaine urement (mass/volume)Ordered By: Franco Pérez on 08-18-2024 Calcium [Mass/Vol] 9.4 mg/dL 7.6-11.0 [facility] Serum or plasma urea nitroge n measurement (mass/volume)Ordered By: Franco Pérez on 08-18-2024 Urea nitrogen [Mass/Vol] 20 mg/dL High 4-19 [facility] Sodium levelOrdered By: Jonathon Pérez on 08-18-2024 Sodium [Moles/Vol] 138 mmol/L 133-145 [facility] Telephone Encounteron 2024 [employer] Authentication Interface Message Text Reached patient, who cancelled follow up for 08/16. Patient states he has 2 days left of radiation and is experiencing a lot of burning, so he cancelled. He is re-scheduled for 6 weeks from now along with speech, since he is finishing treatment. 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 He is advised to continue with skin creams and mouth rinses as directed by his Radiation Oncologist. He acknowledges understanding. Cindy Newell RN Normal [facility] [facility] Total proteinOrdered By: Faheem Pérez on 08-18-2024 Protein [Mass/Vol] 6.7 g/dL 5.9-8.4 [facility] White blood cell (WBC) count Ordered By: Franco Pérez on 08-18-2024 WBC (Bld) [#/Vol] 2.3 10*3/uL Low 4.4-11.0 [facility] Radiation Oncology Visiton 0 08-12-2024 Radiation Oncology Visit Normal [facility] Absolute lymphocyte countOrd ered By: Franco Pérez on 08-10-2024 Lymphocytes Auto (Unsp spec) [#/Vol] 0.19 10*3/uL Low 0.83-4.51 [facility] Absolute neutrophil countOrd ered By: Franco Pérez on 08-10-2024 Neutrophils (Bld) [#/Vol] 2.9 10*3/uL 2.0-7.7 [facility] Anion gap in Serum or Plasma Ordered By: Franco Pérez on 08-10-2024 Anion gap [Moles/Vol] 12 mmol/L 5-15 [facility] Automated lymphocyte count a s percentage of total leukocytesOrdered By: Franco Pérez on 08-10-2024 Lymphocytes/100 WBC Auto (Unsp spec) 5.1 % Low 19-41 [facility] BUN/creatinine ratioOrdered By: Franco Pérez on 08-10-2024 Urea nitrogen/Creatinine [Mass ratio] 23.1 mg/mg High 10-20 [facility] Basophil percentageOrdered B y: Franco Pérez on 08-10-2024 Basophils/100 WBC (Bld) 0.5 % 0-1 [facility] Bilirubin, totalOrdered By: Franco Pérez on 08-10-2024 Bilirubin [Mass/Vol] 1.24 mg/dL 0.00-1.30 [facility] CBC W/Diff, Automatedon 07-23 Absolute Lymph 0.19 X10 3/uL Low 0.83-4.51 [facility] Comment on above: Performed By: #### L 500.4050, L501.2300, L501.5200, L100.0100 ####[facility] [address] [place], [address] Absolute Neut 2.9 X10 3/uL Normal 2.0-7.7 [facility] Comment on above: Performed By: #### L 500.4050, L501.2300, L501.5200, L100.0100 ####[facility] [address] [place], [address] Basophils/100 WBC (Bld) 0.5 % Normal 0-1 [facility] Comment on above: Performed By: #### L 500.4050, L501.2300, L501.5200, L100.0100 ####[facility] [address] [place], [address] Eosinophils/100 WBC (Bld) 0.5 % Normal 0-5 [facility] Comment on above: Performed By: #### L 500.4050, L501.2300, L501.5200, L100.0100 ####[facility] [address] [place], [address] Erythrocyte distribution width (RBC) [Ratio] 15.3 % High 11.6-14.6 [facility] Comment on above: Performed By: #### L 500.4050, L501.2300, L501.5200, L100.0100 ####[facility] [address] [place], [address] Hematocrit (Bld) [Volume fraction] 38.0 % Low 40-54 [facility] Comment on above: Performed By: #### L 500.4050, L501.2300, L501.5200, L100.0100 ####[facility] [address] [place], [address] Hemoglobin (Bld) [Mass/Vol] 12.5 g/dL Low 13.0-16.5 [facility] Comment on above: Performed By: #### L 500.4050, L501.2300, L501.5200, L100.0100 ####[facility] [address] [place], [address] IG% 1.600 High 0.0-0.9 [facility] Comment on above: Result Comment: IG% - Immature Granulocytes (promyelocytes, myelocytes andmetamyelocytes) > 1% indicates that a LEFT SHIFT is Present. Performed By: #### L 500.4050, L501.2300, L501.5200, L100.0100 ####[facility] [address] [place], [address] Lymphocytes/100 WBC (Bld) 5.1 % Low 19-41 [facility] Comment on above: Performed By: #### L 500.4050, L501.2300, L501.5200, L100.0100 ####[facility] [address] [place], [address] MCH (RBC) [Entitic mass] 30.1 pg Normal 27.0-32.0 [facility] Comment on above: Performed By: #### L 500.4050, L501.2300, L501.5200, L100.0100 ####[facility] [address] [place], [address] MCHC (RBC) [Mass/Vol] 32.9 g/dL Normal 32-36 [facility] Comment on above: Performed By: #### L 500.4050, L501.2300, L501.5200, L100.0100 ####[facility] [address] [place], [address] MCV (RBC) [Entitic vol] 91.6 fL Normal 80-94 [facility] Comment on above: Performed By: #### L 500.4050, L501.2300, L501.5200, L100.0100 ####[facility] [address] [place], [address] Monocytes/100 WBC (Bld) 15.5 % High 0-10 [facility] Comment on above: Performed By: #### L 500.4050, L501.2300, L501.5200, L100.0100 ####[facility] [address] [place], [address] Neutrophils/100 WBC (Bld) 76.8 % High 47-70 [facility] Comment on above: Performed By: #### L 500.4050, L501.2300, L501.5200, L100.0100 ####[facility] [address] [place], [address] Nucleated RBC (Bld) [#/Vol] 0 10*3/uL Normal 0-5 [facility] Comment on above: Performed By: #### L 500.4050, L501.2300, L501.5200, L100.0100 ####[facility] [address] [place], [address] Platelet mean volume (Bld) [Entitic vol] 10.4 fL Normal 6.2-12.0 [facility] Comment on above: Performed By: #### L 500.4050, L501.2300, L501.5200, L100.0100 ####[facility] [address] [place], [address] Platelets (Bld) [#/Vol] 98 10*3/uL Low 150-450 [facility] Comment on above: Performed By: #### L 500.4050, L501.2300, L501.5200, L100.0100 ####[facility] [address] [place], [address] RBC (Bld) [#/Vol] 4.15 10*6/uL Low 4.6-6.2 [facility] Comment on above: Performed By: #### L 500.4050, L501.2300, L501.5200, L100.0100 ####[facility] [address] [place], [address] RDW SD 48.5 fl High 35.1-43.9 [facility] Comment on above: Performed By: #### L 500.4050, L501.2300, L501.5200, L100.0100 ####[facility] [address] [place], [address] WBC (Bld) [#/Vol] 3.7 10*3/uL Low 4.4-11.0 [facility] Comment on above: Performed By: #### L 500.4050, L501.2300, L501.5200, L100.0100 ####[facility] [address] [place], [address] Carbon dioxide, total [Moles /volume] in Central venous bloodOrdered By: Franco Pérez on 08-10-2024 CO2 [Moles/Vol] 27.3 mmol/L 21.0-32.0 [facility] Chloride assayOrdered By: Kaal Pérez on 08-10-2024 Chloride [Moles/Vol] 100 mmol/L 98-108 [facility] Comprehensive Metabolic Prof ilon 08-10-2024 Albumin [Mass/Vol] 3.6 g/dL Normal 3.4-4.8 [facility] Comment on above: Performed By: #### L 500.4050, L501.2300, L501.5200, L100.0100 ####[facility] [address] [place], [address] Albumin/Globulin [Mass ratio] 1.2 {ratio} Normal 0.9-2.4 [facility] Comment on above: Performed By: #### L 500.4050, L501.2300, L501.5200, L100.0100 ####[facility] [address] [place], [address] ALK PHOS 103 U/L Normal 40-129 [facility] Comment on above: Performed By: #### L 500.4050, L501.2300, L501.5200, L100.0100 ####[facility] [address] [place], [address] ALT [Catalytic activity/Vol] 21 U/L Normal <=46 [facility] Comment on above: Performed By: #### L 500.4050, L501.2300, L501.5200, L100.0100 ####[facility] [address] [place], [address] AST [Catalytic activity/Vol] 22 U/L Normal <=37 [facility] Comment on above: Performed By: #### L 500.4050, L501.2300, L501.5200, L100.0100 ####[facility] [address] [place], [address] Bilirubin [Mass/Vol] 1.24 mg/dL Normal 0.00-1.30 [facility] Comment on above: Performed By: #### L 500.4050, L501.2300, L501.5200, L100.0100 ####[facility] [address] [place], [address] BUN/CRE 23.1 RATIO High 10-20 [facility] Comment on above: Performed By: #### L 500.4050, L501.2300, L501.5200, L100.0100 ####[facility] [address] [place], [address] Calcium [Mass/Vol] 9.6 mg/dL Normal 7.6-11.0 [facility] Comment on above: Performed By: #### L 500.4050, L501.2300, L501.5200, L100.0100 ####[facility] [address] [place], [address] Chloride [Moles/Vol] 100 mmol/L Normal 98-108 [facility] Comment on above: Performed By: #### L 500.4050, L501.2300, L501.5200, L100.0100 ####[facility] [address] [place], [address] CO2 [Moles/Vol] 27.3 mmol/L Normal 21.0-32.0 [facility] Comment on above: Performed By: #### L 500.4050, L501.2300, L501.5200, L100.0100 ####[facility] [address] [place], [address] Creatinine [Mass/Vol] 0.89 mg/dL Normal 0.70-1.20 [facility] Comment on above: Performed By: #### L 500.4050, L501.2300, L501.5200, L100.0100 ####[facility] [address] [place], [address] ECRCL 105.86 ml/min Normal 50-250 [facility] Comment on above: Performed By: #### L 500.4050, L501.2300, L501.5200, L100.0100 ####[facility] [address] [place], [address] GAP 12 Normal 5-15 [facility] Comment on above: Performed By: #### L 500.4050, L501.2300, L501.5200, L100.0100 ####[facility] [address] [place], [address] GFR/1.73 sq M.predicted among non-blacks MDRD (S/P/Bld) [Vol rate/Area] 91 mL/min/{1.73_m2} Normal >60 [facility] Comment on above: Result Comment: mL/m in/1.73m2 CKD-EPI Creatinine Equation (2020) Performed By: #### L 500.4050, L501.2300, L501.5200, L100.0100 ####[facility] [address] [place], [address] Globulin (S) [Mass/Vol] 3.1 g/dL Normal 2.2-4.2 [facility] Comment on above: Performed By: #### L 500.4050, L501.2300, L501.5200, L100.0100 ####[facility] [address] [place], [address] Glucose [Mass/Vol] 176 mg/dL High 70-99 [facility] Comment on above: Performed By: #### L 500.4050, L501.2300, L501.5200, L100.0100 ####[facility] [address] [place], [address] Potassium [Moles/Vol] 3.9 mmol/L Normal 3.3-5.1 [facility] Comment on above: Performed By: #### L 500.4050, L501.2300, L501.5200, L100.0100 ####[facility] [address] [place], [address] Sodium [Moles/Vol] 139 mmol/L Normal 133-145 [facility] Comment on above: Performed By: #### L 500.4050, L501.2300, L501.5200, L100.0100 ####[facility] [address] [place], [address] T PROT 6.7 g/dL Normal 5.9-8.4 [facility] Comment on above: Performed By: #### L 500.4050, L501.2300, L501.5200, L100.0100 ####[facility] [address] [place], [place], [id number] Urea nitrogen [Mass/Vol] 21 mg/dL High -19 [facility] Comment on above: Performed By: #### L 500.4050, L501.2300, L501.5200, L100.0100 ####[facility] [address] [place], [address] Eosinophil percentageOrdered By: Franco Pérez on 08-10-2024 Eosinophils/100 WBC (Bld) 0.5 % 0-5 [facility] Erythrocyte distribution wid th ratioOrdered By: Franco Beto on 08-10-2024 Erythrocyte distribution width (RBC) [Ratio] 15.3 % High 11.6-14.6 [facility] Erythrocyte distribution wid th standard deviationOrdered By: Franco Beto on 08-10-2024 Erythrocyte distribution width (RBC) [Ratio] 48.5 fl High 35.1-43.9 [facility] Glomerular filtration rate ( GFR) estimation/1.73 sq m using serum, plasma, or whole bOrdered By: Franco Pérez on 08-10-2024 GFR/1.73 sq M.predicted among non-blacks MDRD (S/P/Bld) [Vol rate/Area] 91 mL/min/{1.73_m2} >60 [facility] Comment on above: mL/min/1.73m2 CKD-EP I Creatinine Equation (2020) Hematocrit Auto (Bld) [Volum e fraction]Ordered By: Franco Pérez on 08-10-2024 Hematocrit (Bld) [Volume fraction] 38.0 % Low 40-54 [facility] Hemoglobin measurementOrdere d By: Franco Pérez on 08-10-2024 Hemoglobin (Bld) [Mass/Vol] 12.5 g/dL Low 13.0-16.5 [facility] Immature granulocytes/100 WB C Auto (Bld)Ordered By: Franco Pérez on 08-10-2024 Immature granulocytes/100 WBC (Bld) 1.600 % High 0.0-0.9 [facility] Comment on above: IG% - Immature Granu locytes (promyelocytes, myelocytes and metamyelocytes) > 1% indicates that a LEFT SHIFT is Present. Laboratory - Chemistry and C hemistry - challengeOrdered By: Franco Pérez on 08-10-2024 AST [Catalytic activity/Vol] 22 U/L <38 [facility] MCV (mean corpuscular volume ) determinationOrdered By: Franco Pérez on 08-10-2024 MCV (RBC) [Entitic vol] 91.6 fL 80-94 [facility] Magnesiumon 08-10-2024 Magnesium [Mass/Vol] 2.0 mg/dL Normal 1.5-2.2 [facility] Comment on above: Performed By: #### L 500.4050, L501.2300, L501.5200, L100.0100 ####[facility] [address] [place], [address] Magnesium measurement (mass/ volume)Ordered By: Franco Pérez on 08-10-2024 Magnesium (Unsp spec) [Mass/Vol] 2.0 mg/dL 1.5-2.2 [facility] Mean corpuscular hemoglobin (MCH) determinationOrdered By: Franco Pérez on 08-10-2024 MCH (RBC) [Entitic mass] 30.1 pg 27.0-32.0 [facility] Mean corpuscular hemoglobin concentration (MCHC) determinationOrdered By: Franco Pérez on 08-10-2024 MCHC (RBC) [Mass/Vol] 32.9 g/dL 32-36 [facility] Mean platelet volume determi nationOrdered By: Franco Pérez on 08-10-2024 Platelet mean volume (Bld) [Entitic vol] 10.4 fL 6.2-12.0 [facility] Monocyte percentageOrdered B y: Franco Pérez on 08-10-2024 Monocytes/100 WBC (Bld) 15.5 % High 0-10 [facility] Neutrophil percentageOrdered By: Franco Pérez on 08-10-2024 Neutrophils/100 WBC (Bld) 76.8 % High 47-70 [facility] Nucleated red blood cell per centageOrdered By: Franco Pérez on 08-10-2024 Nucleated RBC/100 WBC (Bld) [Ratio] 0 % 0-5 [facility] Oncology Visit Reporton 07-23 Oncology Visit Report Normal [facility] Phosphoruson 08-10-2024 Phosphate [Mass/Vol] 2.6 mg/dL Low 2.7-4.5 [facility] Comment on above: Performed By: #### L 500.4050, L501.2300, L501.5200, L100.0100 ####[facility] [address] [place], [address] Platelet countOrdered By: Kala Pérez on 08-10-2024 Platelets (Bld) [#/Vol] 98 10*3/uL Low 150-450 [facility] Potassium measurement (mass/ volume)Ordered By: Franco Pérez on 08-10-2024 Potassium (Unsp spec) [Mass/Vol] 3.9 mmol/L 3.3-5.1 [facility] RBC Auto (Bld) [#/Vol]Ordere d By: Franco Pérez on 08-10-2024 RBC (Bld) [#/Vol] 4.15 10*6/uL Low 4.6-6.2 [facility] Serum creatinine measurement (mass/volume)Ordered By: Franco Pérez on 08-10-2024 Creatinine [Mass/Vol] 0.89 mg/dL 0.70-1.20 [facility] Serum globulin measurementOr dered By: Franco Pérez on 08-10-2024 Globulin (S) [Mass/Vol] 3.1 g/dL 2.2-4.2 [facility] Serum glucose measurement (m ass/volume)Ordered By: Franco Pérez on 08-10-2024 Glucose [Mass/Vol] 176 mg/dL High 70-99 [facility] Serum or plasma alanine cabral otransferase (ALT) measurementOrdered By: Franco Pérez on 08-10-2024 ALT [Catalytic activity/Vol] 21 U/L <47 [facility] Serum or plasma albumin blaine urement (mass/volume)Ordered By: Franco Pérez on 08-10-2024 Albumin [Mass/Vol] 3.6 g/dL 3.4-4.8 [facility] Serum or plasma albumin/glob ulin mass ratioOrdered By: Franco Pérez on 08-10-2024 Albumin/Globulin [Mass ratio] 1.2 {ratio} 0.9-2.4 [facility] Serum or plasma alkaline zee sphatase measurementOrdered By: Franco Pérez on 08-10-2024 ALP [Catalytic activity/Vol] 103 U/L 40-129 [facility] Serum or plasma calcium blaine urement (mass/volume)Ordered By: Franco Pérez on 08-10-2024 Calcium [Mass/Vol] 9.6 mg/dL 7.6-11.0 [facility] Serum or plasma urea nitroge n measurement (mass/volume)Ordered By: Franco Pérez on 08-10-2024 Urea nitrogen [Mass/Vol] 21 mg/dL High 4-19 [facility] Sodium levelOrdered By: Jonathon Pérez on 08-10-2024 Sodium [Moles/Vol] 139 mmol/L 133-145 [facility] Total proteinOrdered By: Faheem Pérez on 08-10-2024 Protein [Mass/Vol] 6.7 g/dL 5.9-8.4 [facility] White blood cell (WBC) count Ordered By: Franco Pérez on 08-10-2024 WBC (Bld) [#/Vol] 3.7 10*3/uL Low 4.4-11.0 [facility] Radiation Oncology Visiton 0 08-05-2024 Radiation Oncology Visit Normal [facility] Absolute lymphocyte countOrd ered By: Franco Pérez on 08-03-2024 Lymphocytes Auto (Unsp spec) [#/Vol] 0.23 10*3/uL Low 0.83-4.51 [facility] Absolute neutrophil countOrd ered By: Franco Pérez on 08-03-2024 Neutrophils (Bld) [#/Vol] 1.8 10*3/uL Low 2.0-7.7 [facility] Anion gap in Serum or Plasma Ordered By: Franco Pérez on 08-03-2024 Anion gap [Moles/Vol] 11 mmol/L 5-15 [facility] Automated lymphocyte count a s percentage of total leukocytesOrdered By: Franco Pérez on 08-03-2024 Lymphocytes/100 WBC Auto (Unsp spec) 9.4 % Low 19-41 [facility] BUN/creatinine ratioOrdered By: Franco Pérez on 08-03-2024 Urea nitrogen/Creatinine [Mass ratio] 26.5 mg/mg High 10-20 [facility] Basophil percentageOrdered B y: Franco Pérez on 08-03-2024 Basophils/100 WBC (Bld) 1.2 % High 0-1 [facility] Bilirubin, totalOrdered By: Franco Pérez on 08-03-2024 Bilirubin [Mass/Vol] 1.00 mg/dL 0.00-1.30 [facility] Blood manual differential co mment interpretation (narrative result)Ordered By: Franco Pérez on 08-03-2024 Manual differential comment Jovanny (Bld) [Interp] COMMENT [facility] Comment on above: LYMPHOPENIA. CBC W/Diff, Automatedon 07-23 PLT EST MOD DEC Normal ADEQ [facility] Comment on above: Performed By: #### L 100.0100, L501.2300, L500.4050, L501.5200 ####[facility] [address] [place], [address] SMEAR COMMENT COMMENT Normal [facility] Comment on above: Result Comment: LYMP HOPENIA. Performed By: #### L 100.0100, L501.2300, L500.4050, L501.5200 ####[facility] [address] [place], [address] Carbon dioxide, total [Moles /volume] in Central venous bloodOrdered By: Franco Pérez on 08-03-2024 CO2 [Moles/Vol] 25.3 mmol/L 21.0-32.0 [facility] Chloride assayOrdered By: Kala Pérez on 08-03-2024 Chloride [Moles/Vol] 103 mmol/L 98-108 [facility] Comprehensive Metabolic Prof ilon 08-03-2024 Albumin [Mass/Vol] 3.5 g/dL Normal 3.4-4.8 [facility] Comment on above: Performed By: #### L 100.0100, L501.2300, L500.4050, L501.5200 ####[facility] [address] [place], [address] Albumin/Globulin [Mass ratio] 1.2 {ratio} Normal 0.9-2.4 [facility] Comment on above: Performed By: #### L 100.0100, L501.2300, L500.4050, L501.5200 ####[facility] [address] [place], [address] ALK PHOS 93 U/L Normal 40-129 [facility] Comment on above: Performed By: #### L 100.0100, L501.2300, L500.4050, L501.5200 ####[facility] [address] [place], [address] ALT [Catalytic activity/Vol] 31 U/L Normal <=46 [facility] Comment on above: Performed By: #### L 100.0100, L501.2300, L500.4050, L501.5200 ####[facility] [address] [place], [address] AST [Catalytic activity/Vol] 22 U/L Normal <=37 [facility] Comment on above: Performed By: #### L 100.0100, L501.2300, L500.4050, L501.5200 ####[facility] [address] [place], [address] Bilirubin [Mass/Vol] 1.00 mg/dL Normal 0.00-1.30 [facility] Comment on above: Performed By: #### L 100.0100, L501.2300, L500.4050, L501.5200 ####[facility] [address] [place], [address] BUN/CRE 26.5 RATIO High 10-20 [facility] Comment on above: Performed By: #### L 100.0100, L501.2300, L500.4050, L501.5200 ####[facility] [address] [place], [address] Calcium [Mass/Vol] 9.1 mg/dL Normal 7.6-11.0 [facility] Comment on above: Performed By: #### L 100.0100, L501.2300, L500.4050, L501.5200 ####[facility] [address] [place], [address] Chloride [Moles/Vol] 103 mmol/L Normal 98-108 [facility] Comment on above: Performed By: #### L 100.0100, L501.2300, L500.4050, L501.5200 ####[facility] [address] [place], [address] CO2 [Moles/Vol] 25.3 mmol/L Normal 21.0-32.0 [facility] Comment on above: Performed By: #### L 100.0100, L501.2300, L500.4050, L501.5200 ####[facility] [address] [place], [address] Creatinine [Mass/Vol] 0.86 mg/dL Normal 0.70-1.20 [facility] Comment on above: Performed By: #### L 100.0100, L501.2300, L500.4050, L501.5200 ####[facility] [address] [place], [address] ECRCL 109.16 ml/min Normal 50-250 [facility] Comment on above: Performed By: #### L 100.0100, L501.2300, L500.4050, L501.5200 ####[facility] [address] [place], [address] GAP 11 Normal 5-15 [facility] Comment on above: Performed By: #### L 100.0100, L501.2300, L500.4050, L501.5200 ####[facility] [address] [place], [address] GFR/1.73 sq M.predicted among non-blacks MDRD (S/P/Bld) [Vol rate/Area] 92 mL/min/{1.73_m2} Normal >60 [facility] Comment on above: Result Comment: mL/m in/1.73m2 CKD-EPI Creatinine Equation (2020) Performed By: #### L 100.0100, L501.2300, L500.4050, L501.5200 ####[facility] [address] [place], [address] Globulin (S) [Mass/Vol] 3.0 g/dL Normal 2.2-4.2 [facility] Comment on above: Performed By: #### L 100.0100, L501.2300, L500.4050, L501.5200 ####[facility] [address] [place], [address] Glucose [Mass/Vol] 155 mg/dL High 70-99 [facility] Comment on above: Performed By: #### L 100.0100, L501.2300, L500.4050, L501.5200 ####[facility] [address] [place], [address] Potassium [Moles/Vol] 3.9 mmol/L Normal 3.3-5.1 [facility] Comment on above: Performed By: #### L 100.0100, L501.2300, L500.4050, L501.5200 ####[facility] [address] [place], [address] Sodium [Moles/Vol] 139 mmol/L Normal 133-145 [facility] Comment on above: Performed By: #### L 100.0100, L501.2300, L500.4050, L501.5200 ####[facility] [address] [place], [address] T PROT 6.5 g/dL Normal 5.9-8.4 [facility] Comment on above: Performed By: #### L 100.0100, L501.2300, L500.4050, L501.5200 ####[facility] [address] [place], [address] Urea nitrogen [Mass/Vol] 23 mg/dL High 4-19 [facility] Comment on above: Performed By: #### L 100.0100, L501.2300, L500.4050, L501.5200 ####[facility] [address] [place], [address] Eosinophil percentageOrdered By: Franco Pérez on 08-03-2024 Eosinophils/100 WBC (Bld) 0.4 % 0-5 [facility] Erythrocyte distribution wid th ratioOrdered By: Franco Pérez on 08-03-2024 Erythrocyte distribution width (RBC) [Ratio] 14.3 % 11.6-14.6 [facility] Erythrocyte distribution wid th standard deviationOrdered By: Franco Pérez on 08-03-2024 Erythrocyte distribution width (RBC) [Ratio] 44.7 fl High 35.1-43.9 [facility] Glomerular filtration rate ( GFR) estimation/1.73 sq m using serum, plasma, or whole bOrdered By: Franco Pérez on 08-03-2024 GFR/1.73 sq M.predicted among non-blacks MDRD (S/P/Bld) [Vol rate/Area] 92 mL/min/{1.73_m2} >60 [facility] Comment on above: mL/min/1.73m2 CKD-EP I Creatinine Equation (2020) Hematocrit Auto (Bld) [Volum e fraction]Ordered By: Franco Pérez on 08-03-2024 Hematocrit (Bld) [Volume fraction] 37.8 % Low 40-54 [facility] Hemoglobin measurementOrdere d By: Franco Pérez on 08-03-2024 Hemoglobin (Bld) [Mass/Vol] 12.5 g/dL Low 13.0-16.5 [facility] Immature granulocytes/100 WB C Auto (Bld)Ordered By: Franco Pérez on 08-03-2024 Immature granulocytes/100 WBC (Bld) 2.900 % High 0.0-0.9 [facility] Comment on above: IG% - Immature Granu locytes (promyelocytes, myelocytes and metamyelocytes) > 1% indicates that a LEFT SHIFT is Present. Laboratory - Chemistry and C hemistry - challengeOrdered By: Franco Anderson on 08-03-2024 AST [Catalytic activity/Vol] 22 U/L <38 [facility] MCV (mean corpuscular volume ) determinationOrdered By: Franco Pérez on 08-03-2024 MCV (RBC) [Entitic vol] 90.4 fL 80-94 [facility] Magnesiumon 08-03-2024 Magnesium [Mass/Vol] 1.8 mg/dL Normal 1.5-2.2 [facility] Comment on above: Performed By: #### L 100.0100, L501.2300, L500.4050, L501.5200 ####[facility] [address] [place], [place], [id number] Magnesium measurement (mass/ volume)Ordered By: Franco [facility] on 08-03-2024 Magnesium (Unsp spec) [Mass/Vol] 1.8 mg/dL 1.5-2.2 [facility] Mean corpuscular hemoglobin (MCH) determinationOrdered By: Franco Pérez on 08-03-2024 MCH (RBC) [Entitic mass] 29.9 pg 27.0-32.0 [facility] Mean corpuscular hemoglobin concentration (MCHC) determinationOrdered By: Franco [facility] on 08-03-2024 MCHC (RBC) [Mass/Vol] 33.1 g/dL 32-36 [facility] Mean platelet volume determi nationOrdered By: Franco Pérez on 08-03-2024 Platelet mean volume (Bld) [Entitic vol] 11.2 fL 6.2-12.0 [facility] Monocyte percentageOrdered B y: Franco Pérez on 08-03-2024 Monocytes/100 WBC (Bld) 13.5 % High 0-10 [facility] Neutrophil percentageOrdered By: Franco Pérez on 08-03-2024 Neutrophils/100 WBC (Bld) 72.6 % High 47-70 [facility] Nucleated red blood cell per centageOrdered By: Franco Pérez on 08-03-2024 Nucleated RBC/100 WBC (Bld) [Ratio] 0 % 0-5 [facility] Oncology Visit Reporton 07-23 Oncology Visit Report Normal [facility] Phosphoruson 08-03-2024 Phosphate [Mass/Vol] 2.6 mg/dL Low 2.7-4.5 [facility] Comment on above: Performed By: #### L 100.0100, L501.2300, L500.4050, L501.5200 ####[facility] [address] [place], [address] Platelet countOrdered By: Kala Pérez on 08-03-2024 Platelets (Bld) [#/Vol] 72 10*3/uL Low 150-450 [facility] Platelet estimateOrdered By: Franco Pérez on 08-03-2024 Platelets LM Ql (Bld) MOD DEC ADEQ [facility] Potassium measurement (mass/ volume)Ordered By: Franco Pérez on 08-03-2024 Potassium (Unsp spec) [Mass/Vol] 3.9 mmol/L 3.3-5.1 [facility] RBC Auto (Bld) [#/Vol]Ordere d By: Franco Pérez on 08-03-2024 RBC (Bld) [#/Vol] 4.18 10*6/uL Low 4.6-6.2 [facility] Serum creatinine measurement (mass/volume)Ordered By: Franco Pérez on 08-03-2024 Creatinine [Mass/Vol] 0.86 mg/dL 0.70-1.20 [facility] Serum globulin measurementOr dered By: Franco Pérez on 08-03-2024 Globulin (S) [Mass/Vol] 3.0 g/dL 2.2-4.2 [facility] Serum glucose measurement (m ass/volume)Ordered By: Franco Pérez on 08-03-2024 Glucose [Mass/Vol] 155 mg/dL High 70-99 [facility] Serum or plasma alanine cabral otransferase (ALT) measurementOrdered By: Franco Pérez on 08-03-2024 ALT [Catalytic activity/Vol] 31 U/L <47 [facility] Serum or plasma albumin blaine urement (mass/volume)Ordered By: Franco Pérez on 08-03-2024 Albumin [Mass/Vol] 3.5 g/dL 3.4-4.8 [facility] Serum or plasma albumin/glob ulin mass ratioOrdered By: Franco Pérez on 08-03-2024 Albumin/Globulin [Mass ratio] 1.2 {ratio} 0.9-2.4 [facility] Serum or plasma alkaline zee sphatase measurementOrdered By: Franco Pérez on 08-03-2024 ALP [Catalytic activity/Vol] 93 U/L 40-129 [facility] Serum or plasma calcium blaine urement (mass/volume)Ordered By: Franco Pérez on 08-03-2024 Calcium [Mass/Vol] 9.1 mg/dL 7.6-11.0 [facility] Serum or plasma urea nitroge n measurement (mass/volume)Ordered By: Franco Pérez on 08-03-2024 Urea nitrogen [Mass/Vol] 23 mg/dL High 4-19 [facility] Sodium levelOrdered By: Jonathon Pérez on 08-03-2024 Sodium [Moles/Vol] 139 mmol/L 133-145 [facility] Total proteinOrdered By: Faheem Pérez on 08-03-2024 Protein [Mass/Vol] 6.5 g/dL 5.9-8.4 [facility] White blood cell (WBC) count Ordered By: Franco Pérez on 08-03-2024 WBC (Bld) [#/Vol] 2.5 10*3/uL Low 4.4-11.0 [facility] Radiation Oncology Visiton 0 - Radiation Oncology Visit Normal [facility] CBC W/Diff, Automatedon Absolute Lymph 0.21 X10 3/uL Low 0.83-4.51 [facility] Comment on above: Performed By: #### L 501.2300, L501.5200, L100.0100, L500.4050 ####[facility] [address] [place], [address] Absolute Neut 2.3 X10 3/uL Normal 2.0-7.7 [facility] Comment on above: Performed By: #### L 501.2300, L501.5200, L100.0100, L500.4050 ####[facility] [address] [place], [address] Basophils/100 WBC (Bld) 1.6 % High 0-1 [facility] Comment on above: Performed By: #### L 501.2300, L501.5200, L100.0100, L500.4050 ####[facility] [address] [place], [address] Eosinophils/100 WBC (Bld) 0.6 % Normal 0-5 [facility] Comment on above: Performed By: #### L 501.2300, L501.5200, L100.0100, L500.4050 ####[facility] [address] [place], [address] Erythrocyte distribution width (RBC) [Ratio] 13.9 % Normal 11.6-14.6 [facility] Comment on above: Performed By: #### L 501.2300, L501.5200, L100.0100, L500.4050 ####[facility] [address] [place], [address] Hematocrit (Bld) [Volume fraction] 39.3 % Low 40-54 [facility] Comment on above: Performed By: #### L 501.2300, L501.5200, L100.0100, L500.4050 ####[facility] [address], [address] Hemoglobin (Bld) [Mass/Vol] 13.0 g/dL Normal 13.0-16.5 [facility] Comment on above: Performed By: #### L 501.2300, L501.5200, L100.0100, L500.4050 ####[facility] [address] [place], [address] IG% 1.900 High 0.0-0.9 [facility] Comment on above: Result Comment: IG% - Immature Granulocytes (promyelocytes, myelocytes andmetamyelocytes) > 1% indicates that a LEFT SHIFT is Present. Performed By: #### L 501.2300, L501.5200, L100.0100, L500.4050 ####[facility] [address] [place], [address] Lymphocytes/100 WBC (Bld) 6.6 % Low 19-41 [facility] Comment on above: Performed By: #### L 501.2300, L501.5200, L100.0100, L500.4050 ####[facility] [address] [place], [address] MCH (RBC) [Entitic mass] 29.5 pg Normal 27.0-32.0 [facility] Comment on above: Performed By: #### L 501.2300, L501.5200, L100.0100, L500.4050 ####[facility] [address] [place], [address] MCHC (RBC) [Mass/Vol] 33.1 g/dL Normal 32-36 [facility] Comment on above: Performed By: #### L 501.2300, L501.5200, L100.0100, L500.4050 ####[facility] [address] [place], [address] MCV (RBC) [Entitic vol] 89.3 fL Normal 80-94 [facility] Comment on above: Performed By: #### L 501.2300, L501.5200, L100.0100, L500.4050 ####[facility] [address] [place], [address] Monocytes/100 WBC (Bld) 18.8 % High 0-10 [facility] Comment on above: Performed By: #### L 501.2300, L501.5200, L100.0100, L500.4050 ####[facility] [address] [place], [address] Neutrophils/100 WBC (Bld) 70.5 % High 47-70 [facility] Comment on above: Performed By: #### L 501.2300, L501.5200, L100.0100, L500.4050 ####[facility] [address] [place], [address] Nucleated RBC (Bld) [#/Vol] 0 10*3/uL Normal 0-5 [facility] Comment on above: Performed By: #### L 501.2300, L501.5200, L100.0100, L500.4050 ####[facility] [address] [place], [address] Platelet mean volume (Bld) [Entitic vol] 10.2 fL Normal 6.2-12.0 [facility] Comment on above: Performed By: #### L 501.2300, L501.5200, L100.0100, L500.4050 ####[facility] [address] [place], [address] Platelets (Bld) [#/Vol] 103 10*3/uL Low 150-450 [facility] Comment on above: Performed By: #### L 501.2300, L501.5200, L100.0100, L500.4050 ####[facility] [address] [place], [address] RBC (Bld) [#/Vol] 4.40 10*6/uL Low 4.6-6.2 [facility] Comment on above: Performed By: #### L 501.2300, L501.5200, L100.0100, L500.4050 ####[facility] [address] [place], [address] RDW SD 44.1 fl High 35.1-43.9 [facility] Comment on above: Performed By: #### L 501.2300, L501.5200, L100.0100, L500.4050 ####[facility] [address] [place], [address] WBC (Bld) [#/Vol] 3.2 10*3/uL Low 4.4-11.0 [facility] Comment on above: Performed By: #### L 501.2300, L501.5200, L100.0100, L500.4050 ####[facility] [address] [place], [address] Comprehensive Metabolic Prof [facility] 07-27-2024 Albumin [Mass/Vol] 3.6 g/dL Normal 3.4-4.8 [facility] Comment on above: Performed By: #### L 501.2300, L501.5200, L100.0100, L500.4050 ####[facility] [address] [place], [address] Albumin/Globulin [Mass ratio] 1.1 {ratio} Normal 0.9-2.4 [facility] Comment on above: Performed By: #### L 501.2300, L501.5200, L100.0100, L500.4050 ####[facility] [address] [place], [address] ALK PHOS 88 U/L Normal 40-129 [facility] Comment on above: Performed By: #### L 501.2300, L501.5200, L100.0100, L500.4050 ####[facility] [address] [place], [address] ALT [Catalytic activity/Vol] 25 U/L Normal <=46 [facility] Comment on above: Performed By: #### L 501.2300, L501.5200, L100.0100, L500.4050 ####[facility] [address] [place], [address] AST [Catalytic activity/Vol] 18 U/L Normal <=37 [facility] Comment on above: Performed By: #### L 501.2300, L501.5200, L100.0100, L500.4050 ####[facility] [address] [place], [address] Bilirubin [Mass/Vol] 1.62 mg/dL High 0.00-1.30 [facility] Comment on above: Performed By: #### L 501.2300, L501.5200, L100.0100, L500.4050 ####[facility] [address] [place], [address] BUN/CRE 26.0 RATIO High 10-20 [facility] Comment on above: Performed By: #### L 501.2300, L501.5200, L100.0100, L500.4050 ####[facility] [address] [place], [address] Calcium [Mass/Vol] 9.5 mg/dL Normal 7.6-11.0 [facility] Comment on above: Performed By: #### L 501.2300, L501.5200, L100.0100, L500.4050 ####[facility] [address] [place], [address] Chloride [Moles/Vol] 102 mmol/L Normal 98-108 [facility] Comment on above: Performed By: #### L 501.2300, L501.5200, L100.0100, L500.4050 ####[facility] [address] [place], [address] CO2 [Moles/Vol] 23.3 mmol/L Normal 21.0-32.0 [facility] Comment on above: Performed By: #### L 501.2300, L501.5200, L100.0100, L500.4050 ####[facility] [address] [place], [address] Creatinine [Mass/Vol] 0.92 mg/dL Normal 0.70-1.20 [facility] Comment on above: Performed By: #### L 501.2300, L501.5200, L100.0100, L500.4050 ####[facility] [address] [place], [address] ECRCL 102.97 ml/min Normal 50-250 [facility] Comment on above: Performed By: #### L 501.2300, L501.5200, L100.0100, L500.4050 ####[facility] [address] [place], [address] GAP 15 Normal 5-15 [facility] Comment on above: Performed By: #### L 501.2300, L501.5200, L100.0100, L500.4050 ####[facility] [address] [place], [address] GFR/1.73 sq M.predicted among non-blacks MDRD (S/P/Bld) [Vol rate/Area] 89 mL/min/{1.73_m2} Normal >60 [facility] Comment on above: Result Comment: mL/m in/1.73m2 CKD-EPI Creatinine Equation (2020) Performed By: #### L 501.2300, L501.5200, L100.0100, L500.4050 ####[facility] [address] [place], [address] Globulin (S) [Mass/Vol] 3.3 g/dL Normal 2.2-4.2 [facility] Comment on above: Performed By: #### L 501.2300, L501.5200, L100.0100, L500.4050 ####[facility] [address] [place], [address] Glucose [Mass/Vol] 166 mg/dL High 70-99 [facility] Comment on above: Performed By: #### L 501.2300, L501.5200, L100.0100, L500.4050 ####[facility] [address] [place], [address] Potassium [Moles/Vol] 3.9 mmol/L Normal 3.3-5.1 [facility] Comment on above: Performed By: #### L 501.2300, L501.5200, L100.0100, L500.4050 ####[facility] [address] [place], [address] Sodium [Moles/Vol] 140 mmol/L Normal 133-145 [facility] Comment on above: Performed By: #### L 501.2300, L501.5200, L100.0100, L500.4050 ####[facility] [address] [place], [address] T PROT 6.9 g/dL Normal 5.9-8.4 [facility] Comment on above: Performed By: #### L 501.2300, L501.5200, L100.0100, L500.4050 ####[facility] [address] [place], [address] Urea nitrogen [Mass/Vol] 24 mg/dL High 4-19 [facility] Comment on above: Performed By: #### L 501.2300, L501.5200, L100.0100, L500.4050 ####[facility] [address] [place], [address] Magnesiumon 07-27-2024 Magnesium [Mass/Vol] 1.8 mg/dL Normal 1.5-2.2 [facility] Comment on above: Performed By: #### L 501.2300, L501.5200, L100.0100, L500.4050 ####[facility] [address] [place], [address] Oncology Visit Reporton Oncology Visit Report Normal [facility] Phosphoruson 07-27-2024 Phosphate [Mass/Vol] 3.2 mg/dL Normal 2.7-4.5 [facility] Comment on above: Performed By: #### L 501.2300, L501.5200, L100.0100, L500.4050 ####[facility] [address] [place], [address] Radiation Oncology Visiton 0 07-22-2024 Radiation Oncology Visit Normal [facility] Surgery Visit Reporton 07-22 Surgery Visit Report Normal [facility] CBC W/Diff, Automatedon 06-24 Absolute Lymph 0.45 X10 3/uL Low 0.83-4.51 [facility] Comment on above: Performed By: #### L 501.2300, L100.0100, L501.5200, L500.4050 ####[facility] [address] [place], [address] Absolute Neut 4.1 X10 3/uL Normal 2.0-7.7 [facility] Comment on above: Performed By: #### L 501.2300, L100.0100, L501.5200, L500.4050 ####[facility] [address] [place], [address] Basophils/100 WBC (Bld) 1.1 % High 0-1 [facility] Comment on above: Performed By: #### L 501.2300, L100.0100, L501.5200, L500.4050 ####[facility] [address] [place], [address] Eosinophils/100 WBC (Bld) 2.8 % Normal 0-5 [facility] Comment on above: Performed By: #### L 501.2300, L100.0100, L501.5200, L500.4050 ####[facility] [address] [place], [address] Erythrocyte distribution width (RBC) [Ratio] 13.6 % Normal 11.6-14.6 [facility] Comment on above: Performed By: #### L 501.2300, L100.0100, L501.5200, L500.4050 ####[facility] [address] [place], [address] Hematocrit (Bld) [Volume fraction] 41.3 % Normal 40-54 [facility] Comment on above: Performed By: #### L 501.2300, L100.0100, L501.5200, L500.4050 ####[facility] [address] [place], [address] Hemoglobin (Bld) [Mass/Vol] 13.6 g/dL Normal 13.0-16.5 [facility] Comment on above: Performed By: #### L 501.2300, L100.0100, L501.5200, L500.4050 ####[facility] [address] [place], [address] IG% 1.700 High 0.0-0.9 [facility] Comment on above: Result Comment: IG% - Immature Granulocytes (promyelocytes, myelocytes andmetamyelocytes) > 1% indicates that a LEFT SHIFT is Present. Performed By: #### L 501.2300, L100.0100, L501.5200, L500.4050 ####[facility] [address] [place], [address] Lymphocytes/100 WBC (Bld) 8.3 % Low 19-41 [facility] Comment on above: Performed By: #### L 501.2300, L100.0100, L501.5200, L500.4050 ####[facility] [address] [place], [address] MCH (RBC) [Entitic mass] 29.6 pg Normal 27.0-32.0 [facility] Comment on above: Performed By: #### L 501.2300, L100.0100, L501.5200, L500.4050 ####[facility] [address] [place], [address] MCHC (RBC) [Mass/Vol] 32.9 g/dL Normal 32-36 [facility] Comment on above: Performed By: #### L 501.2300, L100.0100, L501.5200, L500.4050 ####[facility] [address] [place], [address] MCV (RBC) [Entitic vol] 90.0 fL Normal 80-94 [facility] Comment on above: Performed By: #### L 501.2300, L100.0100, L501.5200, L500.4050 ####[facility] [address] [place], [address] Monocytes/100 WBC (Bld) 10.1 % High 0-10 [facility] Comment on above: Performed By: #### L 501.2300, L100.0100, L501.5200, L500.4050 ####[facility] [address] [place], [address] Neutrophils/100 WBC (Bld) 76.0 % High 47-70 [facility] Comment on above: Performed By: #### L 501.2300, L100.0100, L501.5200, L500.4050 ####[facility] [address] [place], [address] Nucleated RBC (Bld) [#/Vol] 0 10*3/uL Normal 0-5 [facility] Comment on above: Performed By: #### L 501.2300, L100.0100, L501.5200, L500.4050 ####[facility] [address] [place], [address] Platelet mean volume (Bld) [Entitic vol] 10.7 fL Normal 6.2-12.0 [facility] Comment on above: Performed By: #### L 501.2300, L100.0100, L501.5200, L500.4050 ####[facility] [address] [place], [address] Platelets (Bld) [#/Vol] 164 10*3/uL Normal 150-450 [facility] Comment on above: Performed By: #### L 501.2300, L100.0100, L501.5200, L500.4050 ####[facility] [address] [place], [address] RBC (Bld) [#/Vol] 4.59 10*6/uL Low 4.6-6.2 [facility] Comment on above: Performed By: #### L 501.2300, L100.0100, L501.5200, L500.4050 ####[facility] [address] [place], [address] RDW SD 43.8 fl Normal 35.1-43.9 [facility] Comment on above: Performed By: #### L 501.2300, L100.0100, L501.5200, L500.4050 ####[facility] [address] [place], [address] WBC (Bld) [#/Vol] 5.4 10*3/uL Normal 4.4-11.0 [facility] Comment on above: Performed By: #### L 501.2300, L100.0100, L501.5200, L500.4050 ####[facility] [address] [place], [address] Comprehensive Metabolic Prof ilon 07-20-2024 Albumin [Mass/Vol] 3.8 g/dL Normal 3.4-4.8 [facility] Comment on above: Performed By: #### L 501.2300, L100.0100, L501.5200, L500.4050 ####[facility] [address] [place], [address] Albumin/Globulin [Mass ratio] 1.1 {ratio} Normal 0.9-2.4 [facility] Comment on above: Performed By: #### L 501.2300, L100.0100, L501.5200, L500.4050 ####[facility] [address] [place], [address] ALK PHOS 93 U/L Normal 40-129 [facility] Comment on above: Performed By: #### L 501.2300, L100.0100, L501.5200, L500.4050 ####[facility] [address] [place], [address] ALT [Catalytic activity/Vol] 34 U/L Normal <=46 [facility] Comment on above: Performed By: #### L 501.2300, L100.0100, L501.5200, L500.4050 ####[facility] [address] [place], [address] AST [Catalytic activity/Vol] 25 U/L Normal <=37 [facility] Comment on above: Performed By: #### L 501.2300, L100.0100, L501.5200, L500.4050 ####[facility] [address] [place], [address] Bilirubin [Mass/Vol] 1.53 mg/dL High 0.00-1.30 [facility] Comment on above: Performed By: #### L 501.2300, L100.0100, L501.5200, L500.4050 ####[facility] [address] [place], [address] BUN/CRE 18.1 RATIO Normal 10-20 [facility] Comment on above: Performed By: #### L 501.2300, L100.0100, L501.5200, L500.4050 ####[facility] [address] [place], [address] Calcium [Mass/Vol] 9.5 mg/dL Normal 7.6-11.0 [facility] Comment on above: Performed By: #### L 501.2300, L100.0100, L501.5200, L500.4050 ####[facility] [address] [place], [address] Chloride [Moles/Vol] 101 mmol/L Normal 98-108 [facility] Comment on above: Performed By: #### L 501.2300, L100.0100, L501.5200, L500.4050 ####[facility] [address] [place], [address] CO2 [Moles/Vol] 23.8 mmol/L Normal 21.0-32.0 [facility] Comment on above: Performed By: #### L 501.2300, L100.0100, L501.5200, L500.4050 ####[facility] [address] [place], [address] Creatinine [Mass/Vol] 0.99 mg/dL Normal 0.70-1.20 [facility] Comment on above: Performed By: #### L 501.2300, L100.0100, L501.5200, L500.4050 ####[facility] [address] [place], [address] ECRCL 98.19 ml/min Normal 50-250 [facility] Comment on above: Performed By: #### L 501.2300, L100.0100, L501.5200, L500.4050 ####[facility] [address] [place], [address] GAP 13 Normal 5-15 [facility] Comment on above: Performed By: #### L 501.2300, L100.0100, L501.5200, L500.4050 ####[facility] [address] [place], [address] GFR/1.73 sq M.predicted among non-blacks MDRD (S/P/Bld) [Vol rate/Area] 81 mL/min/{1.73_m2} Normal >60 [facility] Comment on above: Result Comment: mL/m in/1.73m2 CKD-EPI Creatinine Equation (2020) Performed By: #### L 501.2300, L100.0100, L501.5200, L500.4050 ####[facility] [address] [place], [address] Globulin (S) [Mass/Vol] 3.4 g/dL Normal 2.2-4.2 [facility] Comment on above: Performed By: #### L 501.2300, L100.0100, L501.5200, L500.4050 ####[facility] [address] [place], [address] Glucose [Mass/Vol] 166 mg/dL High 70-99 [facility] Comment on above: Performed By: #### L 501.2300, L100.0100, L501.5200, L500.4050 ####[facility] [address] [place], [address] Potassium [Moles/Vol] 4.1 mmol/L Normal 3.3-5.1 [facility] Comment on above: Performed By: #### L 501.2300, L100.0100, L501.5200, L500.4050 ####[facility] [address] [place], [address] Sodium [Moles/Vol] 137 mmol/L Normal 133-145 [facility] Comment on above: Performed By: #### L 501.2300, L100.0100, L501.5200, L500.4050 ####[facility] [address] [place], [address] T PROT 7.2 g/dL Normal 5.9-8.4 [facility] Comment on above: Performed By: #### L 501.2300, L100.0100, L501.5200, L500.4050 ####[facility] [address] [place], [address] Urea nitrogen [Mass/Vol] 18 mg/dL Normal 4-19 [facility] Comment on above: Performed By: #### L 501.2300, L100.0100, L501.5200, L500.4050 ####[facility] [address] [place], [address] Magnesiumon 07-20-2024 Magnesium [Mass/Vol] 1.8 mg/dL Normal 1.5-2.2 [facility] Comment on above: Performed By: #### L 501.2300, L100.0100, L501.5200, L500.4050 ####[facility] [address] [place], [address] Oncology Visit Reporton 04-2 8-2025 Oncology Visit Report Normal [facility] Phosphoruson 07-20-2024 Phosphate [Mass/Vol] 2.7 mg/dL Normal 2.7-4.5 [facility] Comment on above: Performed By: #### L 501.2300, L100.0100, L501.5200, L500.4050 ####[facility] [address] [place], [address] TSH DL <= 0.005 mIU/L QnOrde red By: Bulmaro Curtis on 07-20-2024 TSH Qn 0.524 uIU/mL 0.300-4.20 0 [facility] Thyroid Stim Hormone (TSH)on 07-20-2024 TSH 0.524 uIU/mL Normal 0.300-4.20 0 [facility] Comment on above: Performed By: #### L 501.9520, L506.1001 ####[facility] [address] [place], [address] Vitamin D,25 Hydroxyon 07-20 Vitamin D 25-OH 27.2 ng/mL Low 30-100 [facility] Comment on above: Result Comment: Rhonda min D StatusDeficiency: <20 ng/mL (50nmol/L)Insufficiency: 20-30 ng/mL (50-75 nmol/L)Sufficiency: 30-100 ng/mL (75-250 nmol/L)Toxicity: >100 ng/mL (>250 nmol/L) Performed By: #### L 501.9520, L506.1001 ####[facility] [address] [place], [address] Radiation Oncology Visiton 0 07-15-2024 Radiation Oncology Visit Normal [facility] Modified Barium Swallow Stud yon 07-14-2024 Modified Barium Swallow Study Normal [facility] Absolute neutrophil countOrd ered By: Franco Pérez on 07-13-2024 Neutrophils (Bld) [#/Vol] 7.0 10*3/uL 2.0-7.7 [facility] Anion gap in Serum or Plasma Ordered By: Franco Pérez on 07-13-2024 Anion gap [Moles/Vol] 13 mmol/L 5-15 [facility] BUN/creatinine ratioOrdered By: Franco Pérez on 07-13-2024 Urea nitrogen/Creatinine [Mass ratio] 26.3 mg/mg High 10-20 [facility] Basophil percentageOrdered B y: Franco Pérez on 07-13-2024 Basophils/100 WBC (Bld) 0.6 % 0-1 [facility] Bilirubin, totalOrdered By: Franco Pérez on 07-13-2024 Bilirubin [Mass/Vol] 1.38 mg/dL High 0.00-1.30 [facility] CBC W/Diff, Automatedon 06-24 Absolute Lymph 0.88 X10 3/uL Normal 0.83-4.51 [facility] Comment on above: Performed By: #### L 501.5200, L500.4050, L100.0100, L501.2300 ####[facility] [address] [place], [address] Absolute Neut 7.0 X10 3/uL Normal 2.0-7.7 [facility] Comment on above: Performed By: #### L 501.5200, L500.4050, L100.0100, L501.2300 ####[facility] [address] [place], [address] Basophils/100 WBC (Bld) 0.6 % Normal 0-1 [facility] Comment on above: Performed By: #### L 501.5200, L500.4050, L100.0100, L501.2300 ####[facility] [address] [place], [address] Eosinophils/100 WBC (Bld) 2.0 % Normal 0-5 [facility] Comment on above: Performed By: #### L 501.5200, L500.4050, L100.0100, L501.2300 ####[facility] [address] [place], [address] Erythrocyte distribution width (RBC) [Ratio] 13.8 % Normal 11.6-14.6 [facility] Comment on above: Performed By: #### L 501.5200, L500.4050, L100.0100, L501.2300 ####[facility] [address] [place], [address] Hematocrit (Bld) [Volume fraction] 44.1 % Normal 40-54 [facility] Comment on above: Performed By: #### L 501.5200, L500.4050, L100.0100, L501.2300 ####[facility] [address] [place], [address] Hemoglobin (Bld) [Mass/Vol] 14.3 g/dL Normal 13.0-16.5 [facility] Comment on above: Performed By: #### L 501.5200, L500.4050, L100.0100, L501.2300 ####[facility] [address] [place], [address] IG% 1.200 High 0.0-0.9 [facility] Comment on above: Result Comment: IG% - Immature Granulocytes (promyelocytes, myelocytes andmetamyelocytes) > 1% indicates that a LEFT SHIFT is Present. Performed By: #### L 501.5200, L500.4050, L100.0100, L501.2300 ####[facility] [address] [place], [address] Lymphocytes/100 WBC (Bld) 10.0 % Low 19-41 [facility] Comment on above: Performed By: #### L 501.5200, L500.4050, L100.0100, L501.2300 ####[facility] [address] [place], [address] MCH (RBC) [Entitic mass] 29.7 pg Normal 27.0-32.0 [facility] Comment on above: Performed By: #### L 501.5200, L500.4050, L100.0100, L501.2300 ####[facility] [address] [place], [address] MCHC (RBC) [Mass/Vol] 32.4 g/dL Normal 32-36 [facility] Comment on above: Performed By: #### L 501.5200, L500.4050, L100.0100, L501.2300 ####[facility] [address] [place], [address] MCV (RBC) [Entitic vol] 91.5 fL Normal 80-94 [facility] Comment on above: Performed By: #### L 501.5200, L500.4050, L100.0100, L501.2300 ####[facility] [address] [place], [address] Monocytes/100 WBC (Bld) 7.0 % Normal 0-10 [facility] Comment on above: Performed By: #### L 501.5200, L500.4050, L100.0100, L501.2300 ####[facility] [address] [place], [address] Neutrophils/100 WBC (Bld) 79.2 % High 47-70 [facility] Comment on above: Performed By: #### L 501.5200, L500.4050, L100.0100, L501.2300 ####[facility] [address] [place], [address] Nucleated RBC (Bld) [#/Vol] 0 10*3/uL Normal 0-5 [facility] Comment on above: Performed By: #### L 501.5200, L500.4050, L100.0100, L501.2300 ####[facility] [address] [place], [address] Platelet mean volume (Bld) [Entitic vol] 11.7 fL Normal 6.2-12.0 [facility] Comment on above: Performed By: #### L 501.5200, L500.4050, L100.0100, L501.2300 ####[facility] [address] [place], [address] Platelets (Bld) [#/Vol] 178 10*3/uL Normal 150-450 [facility] Comment on above: Performed By: #### L 501.5200, L500.4050, L100.0100, L501.2300 ####[facility] [address] [place], [address] RBC (Bld) [#/Vol] 4.82 10*6/uL Normal 4.6-6.2 [facility] Comment on above: Performed By: #### L 501.5200, L500.4050, L100.0100, L501.2300 ####[facility] [address] [place], [address] RDW SD 46.4 fl High 35.1-43.9 [facility] Comment on above: Performed By: #### L 501.5200, L500.4050, L100.0100, L501.2300 ####[facility] [address] [place], [address] WBC (Bld) [#/Vol] 8.8 10*3/uL Normal 4.4-11.0 [facility] Comment on above: Performed By: #### L 501.5200, L500.4050, L100.0100, L501.2300 ####[facility] [address] [place], [address] Carbon dioxide, total [Moles /volume] in Central venous bloodOrdered By: Franco Pérez on 07-13-2024 CO2 [Moles/Vol] 22.6 mmol/L 21.0-32.0 [facility] Chloride assayOrdered By: Kala Pérze on 07-13-2024 Chloride [Moles/Vol] 101 mmol/L 98-108 [facility] Comprehensive Metabolic Prof ilon 07-13-2024 Albumin [Mass/Vol] 3.8 g/dL Normal 3.4-4.8 [facility] Comment on above: Performed By: #### L 501.5200, L500.4050, L100.0100, L501.2300 ####[facility] [address] [place], [address] Albumin/Globulin [Mass ratio] 1.1 {ratio} Normal 0.9-2.4 [facility] Comment on above: Performed By: #### L 501.5200, L500.4050, L100.0100, L501.2300 ####[facility] [address] [place], [address] ALK PHOS 104 U/L Normal 40-129 [facility] Comment on above: Performed By: #### L 501.5200, L500.4050, L100.0100, L501.2300 ####[facility] [address] [place], [address] ALT [Catalytic activity/Vol] 23 U/L Normal <=46 [facility] Comment on above: Performed By: #### L 501.5200, L500.4050, L100.0100, L501.2300 ####[facility] [address] [place], [address] AST [Catalytic activity/Vol] 21 U/L Normal <=37 [facility] Comment on above: Performed By: #### L 501.5200, L500.4050, L100.0100, L501.2300 ####[facility] [address] [place], [address] Bilirubin [Mass/Vol] 1.38 mg/dL High 0.00-1.30 [facility] Comment on above: Performed By: #### L 501.5200, L500.4050, L100.0100, L501.2300 ####[facility] [address] [place], [address] BUN/CRE 26.3 RATIO High 10-20 [facility] Comment on above: Performed By: #### L 501.5200, L500.4050, L100.0100, L501.2300 ####[facility] [address] [place], [address] Calcium [Mass/Vol] 10.2 mg/dL Normal 7.6-11.0 [facility] Comment on above: Performed By: #### L 501.5200, L500.4050, L100.0100, L501.2300 ####[facility] [address] [place], [address] Chloride [Moles/Vol] 101 mmol/L Normal 98-108 [facility] Comment on above: Performed By: #### L 501.5200, L500.4050, L100.0100, L501.2300 ####[facility] [address] [place], [address] CO2 [Moles/Vol] 22.6 mmol/L Normal 21.0-32.0 [facility] Comment on above: Performed By: #### L 501.5200, L500.4050, L100.0100, L501.2300 ####[facility] [address] [place], [address] Creatinine [Mass/Vol] 1.06 mg/dL Normal 0.70-1.20 [facility] Comment on above: Performed By: #### L 501.5200, L500.4050, L100.0100, L501.2300 ####[facility] [address] [place], [address] ECRCL 93.64 ml/min Normal 50-250 [facility] Comment on above: Performed By: #### L 501.5200, L500.4050, L100.0100, L501.2300 ####[facility] [address] [place], [address] GAP 13 Normal 5-15 [facility] Comment on above: Performed By: #### L 501.5200, L500.4050, L100.0100, L501.2300 ####[facility] [address] [place], [address] GFR/1.73 sq M.predicted among non-blacks MDRD (S/P/Bld) [Vol rate/Area] 75 mL/min/{1.73_m2} Normal >60 [facility] Comment on above: Result Comment: mL/m in/1.73m2 CKD-EPI Creatinine Equation (2020) Performed By: #### L 501.5200, L500.4050, L100.0100, L501.2300 ####[facility] [address] [place], [address] Globulin (S) [Mass/Vol] 3.5 g/dL Normal 2.2-4.2 [facility] Comment on above: Performed By: #### L 501.5200, L500.4050, L100.0100, L501.2300 ####[facility] [address] [place], [address] Glucose [Mass/Vol] 203 mg/dL High 70-99 [facility] Comment on above: Performed By: #### L 501.5200, L500.4050, L100.0100, L501.2300 ####[facility] [address] [place], [address] Potassium [Moles/Vol] 4.1 mmol/L Normal 3.3-5.1 [facility] Comment on above: Performed By: #### L 501.5200, L500.4050, L100.0100, L501.2300 ####[facility] [address] [place], [address] Sodium [Moles/Vol] 137 mmol/L Normal 133-145 [facility] Comment on above: Performed By: #### L 501.5200, L500.4050, L100.0100, L501.2300 ####[facility] [address] [place], [address] T PROT 7.3 g/dL Normal 5.9-8.4 [facility] Comment on above: Performed By: #### L 501.5200, L500.4050, L100.0100, L501.2300 ####[facility] [address] [place], [address] Urea nitrogen [Mass/Vol] 28 mg/dL High 4-19 [facility] Comment on above: Performed By: #### L 501.5200, L500.4050, L100.0100, L501.2300 ####[facility] [address] [place], [address] Eosinophil percentageOrdered By: Franco Pérez on 07-13-2024 Eosinophils/100 WBC (Bld) 2.0 % 0-5 [facility] Erythrocyte distribution wid th (RBC) [Ratio]Ordered By: Franco Pérez on 07-13-2024 Erythrocyte distribution width (RBC) [Entitic vol] 46.4 fL High 35.1-43.9 [facility] Erythrocyte distribution wid th ratioOrdered By: Franco Pérez on 07-13-2024 Erythrocyte distribution width (RBC) [Ratio] 13.8 % 11.6-14.6 [facility] Estimation of creatinine say aranceOrdered By: Franco Pérez on 07-13-2024 Estimated Creatinine Clearance Calc 93.64 ml/min 50-250 [facility] GFR/1.73 sq M.predicted carli g non-blacks MDRD (S/P/Bld) [Vol rate/Area]Ordered By: Franco Anderson on 07-13-2024 Estimated GFR (MDRD) Non-Af Amer 75 >60 [facility] Comment on above: mL/min/1.73m2 CKD-EP I Creatinine Equation (2020) Hematocrit Auto (Bld) [Volum e fraction]Ordered By: Franco Anderson on 07-13-2024 Hematocrit (Bld) [Volume fraction] 44.1 % 40-54 [facility] Hemoglobin measurementOrdere d By: Franco Anderson on 07-13-2024 Hemoglobin (Bld) [Mass/Vol] 14.3 g/dL 13.0-16.5 [facility] Immature granulocytes/100 WB C Auto (Bld)Ordered By: Franco Anderson on 07-13-2024 Immature granulocytes/100 WBC (Bld) 1.200 % High 0.0-0.9 [facility] Comment on above: IG% - Immature Granu locytes (promyelocytes, myelocytes and metamyelocytes) > 1% indicates that a LEFT SHIFT is Present. Laboratory - Chemistry and C hemistry - challengeOrdered By: Franco Justin on 07-13-2024 AST [Catalytic activity/Vol] 21 U/L <38 [facility] Lymphocytes Auto (Unsp spec) [#/Vol]Ordered By: [facility] on 07-13-2024 Lymphocytes (Bld) [#/Vol] 0.88 10*3/uL 0.83-4.51 [facility] Lymphocytes/100 WBC Auto (Un sp spec)Ordered By: [facility] on 07-13-2024 Lymphocytes/100 WBC (Bld) 10.0 % Low 19-41 [facility] MCV (mean corpuscular volume ) determinationOrdered By: [facility] on 07-13-2024 MCV (RBC) [Entitic vol] 91.5 fL 80-94 [facility] Magnesiumon 07-13-2024 Magnesium [Mass/Vol] 1.8 mg/dL Normal 1.5-2.2 [facility] Comment on above: Performed By: #### L 501.5200, L500.4050, L100.0100, L501.2300 ####[facility] [address] [place], [place], [address] Magnesium (Unsp spec) [Mass/ Vol]Ordered By: Franco Pérez on 07-13-2024 Magnesium [Mass/Vol] 1.8 mg/dL 1.5-2.2 [facility] Mean corpuscular hemoglobin (MCH) determinationOrdered By: Franco Pérez on 07-13-2024 MCH (RBC) [Entitic mass] 29.7 pg 27.0-32.0 [facility] Mean corpuscular hemoglobin concentration (MCHC) determinationOrdered By: Franco Pérez on 07-13-2024 MCHC (RBC) [Mass/Vol] 32.4 g/dL 32-36 [facility] Mean platelet volume determi nationOrdered By: Franco Pérez on 07-13-2024 Platelet mean volume (Bld) [Entitic vol] 11.7 fL 6.2-12.0 [facility] Monocyte percentageOrdered B y: Franco Pérez on 07-13-2024 Monocytes/100 WBC (Bld) 7.0 % 0-10 [facility] Neutrophil percentageOrdered By: Franco Pérez on 07-13-2024 Neutrophils/100 WBC (Bld) 79.2 % High 47-70 [facility] Nucleated red blood cell per centageOrdered By: Franco Pérez on 07-13-2024 Nucleated RBC/100 WBC (Bld) [Ratio] 0 % 0-5 [facility] Oncology Visit Reporton 06-24 Oncology Visit Report Normal [facility] Phosphoruson 07-13-2024 Phosphate [Mass/Vol] 3.3 mg/dL Normal 2.7-4.5 [facility] Comment on above: Performed By: #### L 501.5200, L500.4050, L100.0100, L501.2300 ####[facility] [address] [facility] [place], [address] Platelet countOrdered By: Kala Pérez on 07-13-2024 Platelets (Bld) [#/Vol] 178 10*3/uL 150-450 [facility] Potassium (Unsp spec) [Mass/ Vol]Ordered By: Franco Pérez on 07-13-2024 Potassium [Moles/Vol] 4.1 mmol/L 3.3-5.1 [facility] RBC Auto (Bld) [#/Vol]Ordere d By: Franco éPrez on 07-13-2024 RBC (Bld) [#/Vol] 4.82 10*6/uL 4.6-6.2 [facility] SP/HP.SP.Suzan 07-13-2024 SP/HP.SP.EV Normal [facility] Serum creatinine measurement (mass/volume)Ordered By: Franco Pérez on 07-13-2024 Creatinine [Mass/Vol] 1.06 mg/dL 0.70-1.20 [facility] Serum globulin measurementOr dered By: Franco Pérez on 07-13-2024 Globulin (S) [Mass/Vol] 3.5 g/dL 2.2-4.2 [facility] Serum glucose measurement (m ass/volume)Ordered By: Franco Pérez on 07-13-2024 Glucose [Mass/Vol] 203 mg/dL High 70-99 [facility] Serum or plasma alanine cabral otransferase (ALT) measurementOrdered By: Franco Pérez on 07-13-2024 ALT [Catalytic activity/Vol] 23 U/L <47 [facility] Serum or plasma albumin blaine urement (mass/volume)Ordered By: Franco Pérez on 07-13-2024 Albumin [Mass/Vol] 3.8 g/dL 3.4-4.8 [facility] Serum or plasma albumin/glob ulin mass ratioOrdered By: Franco Pérez on 07-13-2024 Albumin/Globulin [Mass ratio] 1.1 {ratio} 0.9-2.4 [facility] Serum or plasma alkaline zee sphatase measurementOrdered By: Franco Pérez on 07-13-2024 ALP [Catalytic activity/Vol] 104 U/L 40-129 [facility] Serum or plasma calcium blaine urement (mass/volume)Ordered By: Franco Pérez on 07-13-2024 Calcium [Mass/Vol] 10.2 mg/dL 7.6-11.0 [facility] Serum or plasma urea nitroge n measurement (mass/volume)Ordered By: Franco Pérez on 07-13-2024 Urea nitrogen [Mass/Vol] 28 mg/dL High 4- [facility] Serum phosphorus measurement Ordered By: Franco Pérez on 07-13-2024 Phosphorus Level 3.3 mg/dL 2.7-4.5 [facility] Sodium levelOrdered By: Jonathon Pérez on 07-13-2024 Sodium [Moles/Vol] 137 mmol/L 133-145 [facility] Surgery Visit Reporton 07-13 Surgery Visit Report Normal [facility] Total proteinOrdered By: Faheem Pérez on 07-13-2024 Protein [Mass/Vol] 7.3 g/dL 5.9-8.4 [facility] White blood cell (WBC) count Ordered By: Franco Pérez on 07-13-2024 WBC (Bld) [#/Vol] 8.8 10*3/uL 4.4-11.0 [facility] CXR for Line Placementon CXR for Line Placement Normal [facility] Discharge Instructionon 06-23 Discharge Instruction Normal [facility] MR/POSTOP.ANEon 07-09-2024 MR/POSTOP.ANE Normal [facility] MR/FQBEXPSF9ug 07-09-2024 MR/POSTOPAN2 Normal [facility] Operative Reporton Operative Report Normal [facility] Radiation Oncology Visiton 0 07-08-2024 Radiation Oncology Visit Normal [facility] Absolute neutrophil countOrd ered By: Ashly Laguerre on 07-06-2024 Neutrophils (Bld) [#/Vol] 6.2 10*3/uL 2.0-7.7 [facility] Anion gap in Serum or Plasma Ordered By: Ashly Laguerre on 07-06-2024 Anion gap [Moles/Vol] 12 mmol/L 5-15 [facility] BUN/creatinine ratioOrdered By: Ashly Laguerre on 07-06-2024 Urea nitrogen/Creatinine [Mass ratio] 15.2 mg/mg 10-20 [facility] Basophil percentageOrdered B y: Ashly Laguerre on 07-06-2024 Basophils/100 WBC (Bld) 0.8 % 0-1 [facility] Bilirubin, totalOrdered By: Ashly Laguerre on 07-06-2024 Bilirubin [Mass/Vol] 1.06 mg/dL 0.00-1.30 [facility] CBC W/Diff, Automatedon 06-23 Absolute Lymph 1.11 X10 3/uL Normal 0.83-4.51 [facility] Comment on above: Performed By: #### L 100.0100, L500.4050 ####[facility] [address] [place], [address] Absolute Neut 6.2 X10 3/uL Normal 2.0-7.7 [facility] Comment on above: Performed By: #### L 100.0100, L500.4050 ####[facility] [address] [place], [address] Basophils/100 WBC (Bld) 0.8 % Normal 0-1 [facility] Comment on above: Performed By: #### L 100.0100, L500.4050 ####[facility] [address] [place], [address] Eosinophils/100 WBC (Bld) 1.5 % Normal 0-5 [facility] Comment on above: Performed By: #### L 100.0100, L500.4050 ####[facility] [address] [place], [address] Erythrocyte distribution width (RBC) [Ratio] 14.1 % Normal 11.6-14.6 [facility] Comment on above: Performed By: #### L 100.0100, L500.4050 ####[facility] [address] [place], [address] Hematocrit (Bld) [Volume fraction] 43.2 % Normal 40-54 [facility] Comment on above: Performed By: #### L 100.0100, L500.4050 ####[facility] [address] [place], [address] Hemoglobin (Bld) [Mass/Vol] 14.1 g/dL Normal 13.0-16.5 [facility] Comment on above: Performed By: #### L 100.0100, L500.4050 ####[facility] [address] [place], [address] IG% 0.700 Normal 0.0-0.9 [facility] Comment on above: Result Comment: IG% - Immature Granulocytes (promyelocytes, myelocytes andmetamyelocytes) > 1% indicates that a LEFT SHIFT is Present. Performed By: #### L 100.0100, L500.4050 ####[facility] [address] [place], [address] Lymphocytes/100 WBC (Bld) 13.1 % Low 19-41 [facility] Comment on above: Performed By: #### L 100.0100, L500.4050 ####[facility] [address] [place], [address] MCH (RBC) [Entitic mass] 29.7 pg Normal 27.0-32.0 [facility] Comment on above: Performed By: #### L 100.0100, L500.4050 ####[facility] [address] [place], [address] MCHC (RBC) [Mass/Vol] 32.6 g/dL Normal 32-36 [facility] Comment on above: Performed By: #### L 100.0100, L500.4050 ####[facility] [address] [place], [address] MCV (RBC) [Entitic vol] 91.1 fL Normal 80-94 [facility] Comment on above: Performed By: #### L 100.0100, L500.4050 ####[facility] [address] [place], [address] Monocytes/100 WBC (Bld) 10.4 % High 0-10 [facility] Comment on above: Performed By: #### L 100.0100, L500.4050 ####[facility] [address] [place], [address] Neutrophils/100 WBC (Bld) 73.5 % High 47-70 [facility] Comment on above: Performed By: #### L 100.0100, L500.4050 ####[facility] [address] [place], [address] Nucleated RBC (Bld) [#/Vol] 0 10*3/uL Normal 0-5 [facility] Comment on above: Performed By: #### L 100.0100, L500.4050 ####[facility] [address] [place], [address] Platelet mean volume (Bld) [Entitic vol] 11.8 fL Normal 6.2-12.0 [facility] Comment on above: Performed By: #### L 100.0100, L500.4050 ####[facility] [address] [place], [address] Platelets (Bld) [#/Vol] 162 10*3/uL Normal 150-450 [facility] Comment on above: Performed By: #### L 100.0100, L500.4050 ####[facility] [address] [place], [address] RBC (Bld) [#/Vol] 4.74 10*6/uL Normal 4.6-6.2 [facility] Comment on above: Performed By: #### L 100.0100, L500.4050 ####[facility] [address] [place], [address] RDW SD 47.2 fl High 35.1-43.9 [facility] Comment on above: Performed By: #### L 100.0100, L500.4050 ####[facility] [address] [place], [address] WBC (Bld) [#/Vol] 8.5 10*3/uL Normal 4.4-11.0 [facility] Comment on above: Performed By: #### L 100.0100, L500.4050 ####[facility] [address] [place], [address] Absolute Neut Normal 2.0-7.7 [facility] Comment on above: Result Comment: @DUP LICATE ORDER Performed By: #### L 501.5200, L501.2300, L100.0100 ####[facility] [address] [place], [address] HCT Normal 40-54 [facility] Comment on above: Result Comment: @DUP LICATE ORDER Performed By: #### L 501.5200, L501.2300, L100.0100 ####[facility] [address] [place], [address] HGB Normal 13.0-16.5 [facility] Comment on above: Result Comment: @DUP LICATE ORDER Performed By: #### L 501.5200, L501.2300, L100.0100 ####[facility] [address] [place], [address] MCH Normal 27.0-32.0 [facility] Comment on above: Result Comment: @DUP LICATE ORDER Performed By: #### L 501.5200, L501.2300, L100.0100 ####[facility] [address] [place], [address] MCHC Normal 32-36 [facility] Comment on above: Result Comment: @DUP LICATE ORDER Performed By: #### L 501.5200, L501.2300, L100.0100 ####[facility] [address] [place], [address] MCV Normal 80-94 [facility] Comment on above: Result Comment: @DUP LICATE ORDER Performed By: #### L 501.5200, L501.2300, L100.0100 ####[facility] [address] [place], [address] NEUT% Normal 47-70 [facility] Comment on above: Result Comment: @DUP LICATE ORDER Performed By: #### L 501.5200, L501.2300, L100.0100 ####[facility] [address] [place], [address] PLT Normal 150-450 [facility] Comment on above: Result Comment: @DUP LICATE ORDER Performed By: #### L 501.5200, L501.2300, L100.0100 ####[facility] [address] [place], [address] RBC Normal 4.6-6.2 [facility] Comment on above: Result Comment: @DUP LICATE ORDER Performed By: #### L 501.5200, L501.2300, L100.0100 ####[facility] [address] [place], [address] RDW CV Normal 11.6-14.6 [facility] Comment on above: Result Comment: @DUP LICATE ORDER Performed By: #### L 501.5200, L501.2300, L100.0100 ####[facility] [address] [place], [address] RDW SD Normal 35.1-43.9 [facility] Comment on above: Result Comment: @DUP LICATE ORDER Performed By: #### L 501.5200, L501.2300, L100.0100 ####[facility] [address] [place], [address] WBC Normal 4.4-11.0 [facility] Comment on above: Result Comment: @DUP LICATE ORDER Performed By: #### L 501.5200, L501.2300, L100.0100 ####[facility] [address] [place], [address] CXR for Line Placementon CXR for Line Placement Normal [facility] Carbon dioxide, total [Moles /volume] in Central venous bloodOrdered By: Ashly Shade on 07-06-2024 CO2 [Moles/Vol] 23.2 mmol/L 21.0-32.0 [facility] Chloride assayOrdered By: Ty ra Shade on 07-06-2024 Chloride [Moles/Vol] 103 mmol/L 98-108 [facility] Comprehensive Metabolic Prof ilon 07-06-2024 Albumin [Mass/Vol] 4.0 g/dL Normal 3.4-4.8 [facility] Comment on above: Performed By: #### L 100.0100, L500.4050 ####[facility] [address] [place], [address] Albumin/Globulin [Mass ratio] 1.2 {ratio} Normal 0.9-2.4 [facility] Comment on above: Performed By: #### L 100.0100, L500.4050 ####[facility] [address] [place], [address] ALK PHOS 120 U/L Normal 40-129 [facility] Comment on above: Performed By: #### L 100.0100, L500.4050 ####[facility] [address] [place], [address] ALT [Catalytic activity/Vol] 21 U/L Normal <=46 [facility] Comment on above: Performed By: #### L 100.0100, L500.4050 ####[facility] [address] [place], [address] AST [Catalytic activity/Vol] 22 U/L Normal <=37 [facility] Comment on above: Performed By: #### L 100.0100, L500.4050 ####[facility] [address] [place], [address] Bilirubin [Mass/Vol] 1.06 mg/dL Normal 0.00-1.30 [facility] Comment on above: Performed By: #### L 100.0100, L500.4050 ####[facility] [address] [place], [address] BUN/CRE 15.2 RATIO Normal 10-20 [facility] Comment on above: Performed By: #### L 100.0100, L500.4050 ####[facility] [address] [place], [address] Calcium [Mass/Vol] 9.9 mg/dL Normal 7.6-11.0 [facility] Comment on above: Performed By: #### L 100.0100, L500.4050 ####[facility] [address] [place], [address] Chloride [Moles/Vol] 103 mmol/L Normal 98-108 [facility] Comment on above: Performed By: #### L 100.0100, [id number] ####[facility] [address] [place], [address] CO2 [Moles/Vol] 23.2 mmol/L Normal 21.0-32.0 [facility] Comment on above: Performed By: #### L 100.0100, L500.4050 ####[facility] [address] [place], [address] Creatinine [Mass/Vol] 1.28 mg/dL High 0.70-1.20 [facility] Comment on above: Performed By: #### L 100.0100, L500.4050 ####[facility] [address] [place], [address] ECRCL 77.55 ml/min Normal 50-250 [facility] Comment on above: Performed By: #### L 100.0100, L500.4050 ####[facility] [address] [place], [address] GAP 12 Normal 5-15 [facility] Comment on above: Performed By: #### L 100.0100, L500.4050 ####[facility] [address] [place], [address] GFR/1.73 sq M.predicted among non-blacks MDRD (S/P/Bld) [Vol rate/Area] 59 mL/min/{1.73_m2} Low >60 [facility] Comment on above: Result Comment: mL/m in/1.73m2 CKD-EPI Creatinine Equation (2020) Performed By: #### L 100.0100, L500.4050 ####[facility] [address] [place], [address] Globulin (S) [Mass/Vol] 3.3 g/dL Normal 2.2-4.2 [facility] Comment on above: Performed By: #### L 100.0100, L500.4050 ####[facility] [address] [place], [address] Glucose [Mass/Vol] 214 mg/dL High 70-99 [facility] Comment on above: Performed By: #### L 100.0100, L500.4050 ####[facility] [address] [place], [address] Potassium [Moles/Vol] 4.3 mmol/L Normal 3.3-5.1 [facility] Comment on above: Performed By: #### L 100.0100, L500.4050 ####[facility] [address], [address] Sodium [Moles/Vol] 138 mmol/L Normal 133-145 [facility] Comment on above: Performed By: #### L 100.0100, L500.4050 ####[facility] [address] [place], [address] T PROT 7.4 g/dL Normal 5.9-8.4 [facility] Comment on above: Performed By: #### L 100.0100, L500.4050 ####[facility] [address] [place], [address] Urea nitrogen [Mass/Vol] 20 mg/dL High 4-19 [facility] Comment on above: Performed By: #### L 100.0100, L500.4050 ####[facility] [address] [place], [address] Eosinophil percentageOrdered By: Ashly aLguerre on 07-06-2024 Eosinophils/100 WBC (Bld) 1.5 % 0-5 [facility] Erythrocyte distribution wid th (RBC) [Ratio]Ordered By: Ashly Laguerre on 07-06-2024 Erythrocyte distribution width (RBC) [Entitic vol] 47.2 fL High 35.1-43.9 [facility] Erythrocyte distribution wid th ratioOrdered By: Ashly Laguerre on 07-06-2024 Erythrocyte distribution width (RBC) [Ratio] 14.1 % 11.6-14.6 [facility] Estimation of creatinine say aranceOrdered By: Ashly Laguerre on 07-06-2024 Estimated Creatinine Clearance Calc 77.55 ml/min 50-250 [facility] GFR/1.73 sq M.predicted carli g non-blacks MDRD (S/P/Bld) [Vol rate/Area]Ordered By: Ashly Laguerre on 07-06-2024 Estimated GFR (MDRD) Non-Af Amer 59 Low >60 [facility] Comment on above: mL/min/1.73m2 CKD-EP I Creatinine Equation (2020) Hematocrit Auto (Bld) [Volum e fraction]Ordered By: Ashly Laguerre on 07-06-2024 Hematocrit (Bld) [Volume fraction] 43.2 % 40-54 [facility] Hemoglobin measurementOrdere d By: Ashly Laguerre on 07-06-2024 Hemoglobin (Bld) [Mass/Vol] 14.1 g/dL 13.0-16.5 [facility] Immature granulocytes/100 WB C Auto (Bld)Ordered By: Ashly Laguerre on 07-06-2024 Immature granulocytes/100 WBC (Bld) 0.700 % 0.0-0.9 [facility] Comment on above: IG% - Immature Granu locytes (promyelocytes, myelocytes and metamyelocytes) > 1% indicates that a LEFT SHIFT is Present. Laboratory - Chemistry and C hemistry - challengeOrdered By: Ashly Laguerre on 07-06-2024 AST [Catalytic activity/Vol] 22 U/L <38 [facility] Lymphocytes Auto (Unsp spec) [#/Vol]Ordered By: Ashly Laguerre on 07-06-2024 Lymphocytes (Bld) [#/Vol] 1.11 10*3/uL 0.83-4.51 [facility] Lymphocytes/100 WBC Auto (Un sp spec)Ordered By: Ashly Laguerre on 07-06-2024 Lymphocytes/100 WBC (Bld) 13.1 % Low 19-41 [facility] MCV (mean corpuscular volume ) determinationOrdered By: Ashly Laguerre on 07-06-2024 MCV (RBC) [Entitic vol] 91.1 fL 80-94 [facility] Magnesiumon 07-06-2024 Magnesium [Mass/Vol] 1.9 mg/dL Normal 1.5-2.2 [facility] Comment on above: Order Comment: ADD O N FROM TODAYS LAB - THANKS Performed By: #### L 501.5200, L501.2300, L100.0100 ####[facility] [address] [place], [address] Magnesium (Unsp spec) [Mass/ Vol]Ordered By: Franco éPrez on 07-06-2024 Magnesium [Mass/Vol] 1.9 mg/dL 1.5-2.2 [facility] Mean corpuscular hemoglobin (MCH) determinationOrdered By: Ashly Laguerre on 07-06-2024 MCH (RBC) [Entitic mass] 29.7 pg 27.0-32.0 [facility] Mean corpuscular hemoglobin concentration (MCHC) determinationOrdered By: Ashly VallesShade on 07-06-2024 MCHC (RBC) [Mass/Vol] 32.6 g/dL 32-36 [facility] Mean platelet volume determi nationOrdered By: Ashly VallesShade on 07-06-2024 Platelet mean volume (Bld) [Entitic vol] 11.8 fL 6.2-12.0 [facility] Monocyte percentageOrdered B y: Ashly Laguerre on 07-06-2024 Monocytes/100 WBC (Bld) 10.4 % High 0-10 [facility] Neutrophil percentageOrdered By: Ashly Laguerre on 07-06-2024 Neutrophils/100 WBC (Bld) 73.5 % High 47-70 [facility] Nucleated red blood cell per centageOrdered By: Ashly Laguerre on 07-06-2024 Nucleated RBC/100 WBC (Bld) [Ratio] 0 % 0-5 [facility] Oncology Visit Reporton 06-23 Oncology Visit Report Normal [facility] Phosphoruson 07-06-2024 Phosphate [Mass/Vol] 3.0 mg/dL Normal 2.7-4.5 [facility] Comment on above: Order Comment: ADD O N FROM TODAYS LAB - THANKS Performed By: #### L 501.5200, L501.2300, L100.0100 ####[facility] [address] [place], [address] Platelet countOrdered By: Ty ra Laguerre on 07-06-2024 Platelets (Bld) [#/Vol] 162 10*3/uL 150-450 [facility] Potassium (Unsp spec) [Mass/ Vol]Ordered By: Ashly Laguerre on 07-06-2024 Potassium [Moles/Vol] 4.3 mmol/L 3.3-5.1 [facility] RBC Auto (Bld) [#/Vol]Ordere d By: Ashly VallesShade on 07-06-2024 RBC (Bld) [#/Vol] 4.74 10*6/uL 4.6-6.2 [facility] Serum creatinine measurement (mass/volume)Ordered By: Ashly Laguerre on 07-06-2024 Creatinine [Mass/Vol] 1.28 mg/dL High 0.70-1.20 [facility] Serum globulin measurementOr dered By: Ashly Laguerre on 07-06-2024 Globulin (S) [Mass/Vol] 3.3 g/dL 2.2-4.2 [facility] Serum glucose measurement (m ass/volume)Ordered By: Ashly Laguerre on 07-06-2024 Glucose [Mass/Vol] 214 mg/dL High 70-99 [facility] Serum or plasma alanine cabral otransferase (ALT) measurementOrdered By: Ashly Laguerre on 07-06-2024 ALT [Catalytic activity/Vol] 21 U/L <47 [facility] Serum or plasma albumin blaine urement (mass/volume)Ordered By: Ashly Laguerre on 07-06-2024 Albumin [Mass/Vol] 4.0 g/dL 3.4-4.8 [facility] Serum or plasma albumin/glob ulin mass ratioOrdered By: Ashly Laguerre on 07-06-2024 Albumin/Globulin [Mass ratio] 1.2 {ratio} 0.9-2.4 [facility] Serum or plasma alkaline zee sphatase measurementOrdered By: Ashly Laguerre on 07-06-2024 ALP [Catalytic activity/Vol] 120 U/L 40-129 [facility] Serum or plasma calcium blaine urement (mass/volume)Ordered By: Ashly Laguerre on 07-06-2024 Calcium [Mass/Vol] 9.9 mg/dL 7.6-11.0 [facility] Serum or plasma urea nitroge n measurement (mass/volume)Ordered By: Ashly Laguerre on 07-06-2024 Urea nitrogen [Mass/Vol] 20 mg/dL High 4-19 [facility] Serum phosphorus measurement Ordered By: Franco Pérez on 07-06-2024 Phosphorus Level 3.0 mg/dL 2.7-4.5 [facility] Sodium levelOrdered By: Ashly Laguerre on 07-06-2024 Sodium [Moles/Vol] 138 mmol/L 133-145 [facility] Total proteinOrdered By: Sarai Laguerre on 07-06-2024 Protein [Mass/Vol] 7.4 g/dL 5.9-8.4 [facility] White blood cell (WBC) count Ordered By: Ashly Laguerre on 07-06-2024 WBC (Bld) [#/Vol] 8.5 10*3/uL 4.4-11.0 [facility] 12 Lead EKGon 07-02-2024 12 Lead EKG Normal [facility] CXR for Line Placementon CXR for Line Placement Normal [facility] Discharge Instructionon 06-23 Discharge Instruction Normal [facility] MR/POSTOP.ANEon 07-02-2024 MR/POSTOP.ANE Normal [facility] MR/LKZZXHSJ1qi 07-02-2024 MR/POSTOPAN2 Normal [facility] Operative Reporton Operative Report Normal [facility] Oncology Visit Reporton Oncology Visit Report Normal [facility] MR/PAT.ANEon 06-23-2024 MR/PAT.ANE Normal [facility] CREATININE FINGERSTICKon Creatinine [Mass/Vol] 1.1 mg/dL Normal 0.70-1.30 [facility] Comment on above: Performed By: #### L 9100.0200 ####[facility] [address] [place], [place], [address] EGFR WB > 60.0000 Normal >60 [facility] Comment on above: Performed By: #### L 9100.0200 ####[facility] [address] [place], [place], [address] Creatinine measurement at dsideOrdered By: Cipriano Layne on 06-19-2024 Creatinine [Mass/Vol] 1.1 mg/dL 0.70-1.30 [facility] EGFROrdered By: Cipriano delgado on 06-19-2024 Bedside Estimated GFR (eGFR) > 60.0000 mL/min >60 [facility] GFR/1.73 sq M.predicted among non-blacks MDRD (S/P/Bld) [Vol rate/Area] mL/min/{1.73_m2} >60 [facility] Progress Noteson 06-11-2024 [employer] Authentication Interface Message Text Teaching Physician Note: I saw and evaluated the patient. I personally obtained the jennings and critical portions of the history and physical exam. I reviewed the resident's documentation and discussed the patient with the resident. I agree with the resident's medical decision making as documented in the resident's note. Franco Sanchez DMD Normal [facility] Progress Noteson 06-05-2024 Inter Fold Roll Cutter Authentication Interface Message Text Teaching Physician Note: I saw and evaluated the patient. I personally obtained the jennings and critical portions of the history and physical exam. I reviewed the resident's documentation and discussed the patient with the resident. I agree with the resident's medical decision making as documented in the resident's note. Franco Sanchez DMD Normal [facility] Progress Noteson 06-04-2024 Inter [employer] Authentication Interface Message Text OMFS PATIENT VISIT CHIEF COMPLAINT: Toothache HISTORY OF PRESENT ILLNESS: Pt is a 73yoM, PMH remarkable for Warthins tumor, WALE, oropharyngeal SCC, hx of tobacco use, DM2, hx of PE (20mg xarelto 1x/day pt reports their manager printing gave them clearance for a 5day drug holiday for their xarelto for dental surgery and pt is going to have a copy of that clearance letter faxed to [facility] referred to [facility] clinic for 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 PAST MEDICAL HISTORY: No past medical history on file. 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 Negative unless otherwise stated in HPI. MEDICATIONS: Current Outpatient Medications Medication Sig Dispense Refill Rivaroxaban (Xarelto) 20 MG tablet Take 20 mg by mouth daily (with dinner). Paxlovid, 300/100, 20 x 150 MG AND 10 x 100MG tablet therapy pack See admin instructions. valsartan (DIOVAN) 320 MG tablet Take 320 mg by mouth daily. albuterol (PROVENTIL HFA) INHALATION HFA inhaler (VENTOLIN,PROAIR,PROVENTIL ) 90mcg INHALE 2 PUFFS BY MOUTH EVERY 4 HOURS NEEDED SHORTNESS OF BREATH OR FOR WHEEZING atorvastatin (LIPITOR) 40 mg tablet Take 40 mg by mouth at bedtime. citalopram (CeleXA) 20 MG tablet Take 20 mg by mouth daily. hydroCHLOROthiazide (HYDRODIURIL) 12.5 MG tablet Take 12.5 mg by mouth daily. No current facility-administered medications for this visit. ALLERGIES: Sulfa antibiotics SURGICAL HX: Past Surgical History: Procedure Laterality Date LARYNGOSCOPY N/A 05/08/2024 Procedure: LARYNGOSCOPY, DIRECT with biopsy,; Surgeon: Simon Packer MD; Location: PERIOPERATIVE SERVICES; Service: Otolaryngology SOCIAL HX: Tobacco: Quit Other types: Cigarettes CLINICAL EXAMINATION Extraoral examination: No significant findings No s/s of infection, redness or tenderness to palpation No facial asymmetry or swelling No appreciable LAD No popping/clicking/crepitus of TMJ b/l No tenderness to palpation of temporalis or masseter asymptomatic function Range of motion WNL CN V and VII intact Intraoral examination: No s/s of infection or tenderness to palpation Erythematous mucosa around dentition with plaque accumulation Oropharynx clear No pathological soft lesions appreciated Oral cancer screen negative Occlusion stable Oral hygiene: Fair RADIOGRAPHIC INTERPRETATION: Panorex Film from Dental and Retained in our clinic files Chronic periodontitis DIAGNOSIS: Chronic periodontal disease ASSESSMENT: Pt is a 73yoM, PMH remarkable for Warthins tumor, WALE, oropharyngeal SCC, hx of tobacco use, DM2, hx of PE (20mg xarelto 1x/day pt reports their manager printing gave them clearance for a 5day drug holiday for their xarelto for dental surgery and pt is going to have a copy of that clearance letter faxed to [facility] referred to [facility] clinic for 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 Pt requires extraction of remaining dentition, alveoplasty, and removal of mandibular joaquim due to chronic periodontitis and prior to chemo/radiation tx. PLAN: Our plan is to extract all remaining dentition, perform alveoplasty, and removal of mandibular joaquim at next appt. Delbert Molina, DMD Normal [facility] Inter Fold Roll Cutter Authentication Interface Message Text Normal [facility] Surgery Visit Reporton 06-03 Surgery Visit Report Normal [facility] Oncology Visit Reporton 05-23 Oncology Visit Report Normal [facility] Telephone Encounteron 2024 Inter [employer] Authentication Interface Message Text Spoke with patient, who needs to get back in with oral surgery for extractions before cancer treatment. Reached out to schedulers, who scheduled patient for 06/04. Cindy Newell RN Normal [facility] Inter Fold Roll Cutter Authentication Interface Message Text Hi Dr. Packer and Cindy, Patient called and stated he would like to keep you updated what he had with other oral surgery visit. He cancelled his appt on 05/29 with oral surgery dept appt due to he went and saw someone else. But the provider he had office visit with recommended him follow up with oral surgeon in our operation room. So, he is going to schedule with oral surgery dept again. If you have any questions, please reach out to the patient at Phone numbers Thank you, Danielle Normal [facility] Addendum Noteon 05-27-2024 Inter Fold [employer] Authentication Interface Message Text Addended by: CINDY NEWELL on: 05/27/2024 11:50 AM Modules accepted: Orders Normal [facility] Radiation Oncology Visiton 0 05-26-2024 Radiation Oncology Visit Normal [facility] Telephone Encounteron 2024 Inter [employer] Authentication Interface Message Text PET scan report faxed to [place]. Cindy Newell RN Normal [facility] Telephone Encounteron 2024 Inter Fold Roll [employer]utter Authentication Interface Message Text Brief ENT Telephone Note Called patient to discuss recent PET results (05/22/24), which showed IMPRESSION: 1. Hypermetabolic central base of tongue mass consistent with biopsy-proven squamous cell carcinoma. 2. Hypermetabolic right cervical lymphadenopathies as described above, consistent with regional metastatic disease. 3. No metabolic evidence of distant metastatic disease. Plan for PSYCHIATRY PHYSICIAN as previously planned. All questions answered and pt verbalized understanding of the plan. Simon Packer MD Otolaryngology - Head and Neck Surgery [facility] Pager: [phone] Normal [facility] GLUCOSE, FINGERSTICK-IN OFFI CEon 05-22-2024 Glucose [Mass/Vol] 197 mg/dL High 74-109 [facility] Comment on above: Performed By: #### 8 [id number] ####NURSING GLUCOSE [id number] [facility] [place], [address] PET SKULL TO THIGH INITIALon 05-22-2024 PET SKULL TO THIGH INITIAL EXAMINATION: PET SKULL TO THIGH INITIALPRO/PI 05/22/2024 03:35 PM CLINICAL HISTORY: newly diagnosed base of tongue squamous cell carcinoma ASSOCIATED DIAGNOSIS: Squamous cell carcinoma of oropharynx (HCC); 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 This imaging consisted of unenhanced low dose spiral axial 3.[address] imaging from the base of the skull through the thighs which was utilized for PET attenuation correction as well as anatomic localization. This was followed by full ring positron emission tomography (PET). INTRA-PROCEDURE MEDS: fludeoxyglucose F18 (FDG) 20-300 MCI/ML solution 17.8 millicurie Route: Intravenous FINDINGS: Final aortic blood pool SUV mean 2.0 Liver metabolic background SUV mean 2.6 HEAD/NECK: The patient is status post left parotidectomy. Hypermetabolic central base of tongue mass extending towards the vallecula, SUV max 9.5 There are multiple hypermetabolic right cervical lymph nodes, as follows: * right periparotid lymphadenopathy measuring approximately 1.4 x 1.4 cm (SUV max 7.6) * conglomerate right cervical level 2A lymphadenopathies measuring approximately 2.3 x 2.3 cm (SUV max 8.9) and 2.9 x 2.9 cm (SUV max 7.4) * conglomerate right cervical level 3 lymphadenopathy measuring approximately 2.5 x 2.3 cm (SUV max 7.5) No evidence of hypermetabolic lymph nodes within the left neck. CHEST: No areas of abnormal FDG avidity are seen, specifically no evidence of hypermetabolic pulmonary nodules or mediastinal lymph nodes . ABDOMEN/PELVIS: No areas of abnormal FDG avidity are seen. Physiologic radiotracer distribution throughout the kidneys, ureters and bladder. MUSCULOSKELETAL: No areas of abnormal FDG avidity are seen. No destructive osseous lesion is noted. . IMPRESSION: 1. Hypermetabolic central base of tongue mass consistent with biopsy-proven squamous cell carcinoma. 2. Hypermetabolic right cervical lymphadenopathies as described above, consistent with regional metastatic disease. 3. No metabolic evidence of distant metastatic disease. MACRO: None Normal [facility] Progress Noteson 05-22-2024 Inter Fold Roll Cutter Authentication Interface Message Text . Normal [facility] Interface Message Text ----- Wednesday, May 22, 2024 at 4:22:24 PM ----- ----- Provider: [id number] - Resident Cabrera -- Clinic: [place] ----- INITIAL/COMPREHENSIVE EXAM Patient presents for an Initial Examination. Reviewed patient's medical history. Patient has a history of: Cancer, Diabetes and Hypertension. N/C per pt.. No contraindications, patient is ready for treatment. Patient's chief complaint: Medical clearance Pain Scale: 0/10 Radiographs taken today were: Panorex and 4 BWs Clinical Examination reveals: Decay, Gingivitis, Periodontitis- and Missing teeth Soft tissue evaluation: Pathology TMJ evaluation: Normal TMJ Completed current status of dentition on the charting. Went over needs and treatment plan options with the patient. OHI were discussed with the patient. Written Instructions/AVS were also handed to the patient. Pt Concern: Full Exam was successfully done. Patient consented to the treatment plan. NOTE: The patient came to the office seeking for medical clearance because he is about to start chemotherapy and radiation on his head and neck. We referred the patient to OS for FME and contacted Yolanda to schedule the patient SABRINA. Next Visit: OS visit for Full mouth extraction ----- Signed on Wednesday, May 22, 2024 at 5:32:10 PM ----- ----- Provider: Graciela Weems DDS -- Clinic: [place] ----- [facility] Tumor Board Noteon Inter Fold Roll Cutter Authentication Interface Message Text Cancer Type: General Tumor Board Note Provided by Baron Gonzalez MD on 05/19/2024 Diagnosis: Oropharyngeal Squamous Cell Carcinoma Tumor Board Type: ENT Brief Clinical Summary: 73 year old male with PMHx significant for COPD, WALE on CPAP, hx of PE (2019) hx of left parotidectomy about 10 yrs (Dr. Dubois) who presented to Dr. Packer after noticing right sided jaw pain. He is now s/p direct laryngoscopy 05/08/2024. Direct laryngoscopy with tongue biopsy consistent with p16+ BOT squamous cell carcinoma. Final Diagnosis A. Tongue, biopsy of right base of tongue INVASIVE POORLY DIFFERENTIATED SQUAMOUS CELL CARCINOMA with ulceration, acute fibrinous/inflammatory exudate, and necrosis. B. Tongue, Biopsy of base of tongue INVASIVE POORLY DIFFERENTIATED SQUAMOUS CELL CARCINOMA with ulceration and necrosis, in a background of prominent lymphoid stroma/lingual tonsil. (See immunohistochemistry results.) PET has been ordered but is not scheduled. Tentative stage is [id number]. Surgical options include surgery to resect primary tumor and/or neck disease with possible postoperative adjuvant therapy including radiation and possibly even chemotherapy. His tumor would not be an ideal candidate for transoral resection given its size and location and an open approach would carry significant post-operative morbidity. Additionally, I would not favor an upfront surgical approach based on the relatively fixed and immobile nature of the right neema disease, which could impact the ability to obtain negative margins or the need for adjuvant chemoradiation therapy. General Information Patient name Robert Ron Date of / Age 7 1950 73 year old Staging Information Clinical Staging Discussed Yes Pathologic Staging Discussed No Genetics Genetics Referral: Unknown / NA Genetic Testing Eligibility: Not applicable Treatment Recommendations Plan Surgery No surgical intervention. Chemotherapy Plan for Chemotherapy Radiation Therapy Plan for Radiation Therapy Options and Eligibility for Supportive Care Services Discussed NA Clinical Trial Eligibility Discussed NA Treatment Plan Radiation Chemotherapy Multidisciplinary Team in Attendance at Tumor Board Radiology - Yes Medical Oncology- Yes Pathology- Yes Radiation Oncology- Yes Surgery- Yes Tumor Board Recommendations Definitive chemoradiation. NCCN Requirement NCCN Requirement Fulfilled? Yes The above recommendations were based on NCCN guidelines, as well as consideration of current national standards and review of the literature. [facility] Telephone Encounteron 2024 Inter Fold Roll Cutter Authentication Interface Message Text Reports printed individually and faxed, notified Anila. Will also send PET report after 05/22/24. Cindy Newell RN [facility] Progress Noteson 05-13-2024 Inter Fold Roll Cutter Authentication Interface Message Text Documentation: Mode: In Person ADULT NUTRITION ASSESSMENT Reason for Referral: Neck mass, Warthin's tumor, Oropharyngeal Mass Referring Provider: Dr. Packer Chief Complaint: I'm doing good Assessment Client PMH: Robert Ron is a 73 year old male referred to Medical Nutrition Therapy to treat Oncology Nutrition. No past medical history on file. Past Surgical History: Procedure Laterality Date LARYNGOSCOPY N/A 05/08/2024 Procedure: LARYNGOSCOPY, DIRECT with biopsy,; Surgeon: Simon Packer MD; Location: [facility]; Service: Otolaryngology is allergic to sulfa antibiotics. Medication: Current Outpatient Medications: ibuprofen (MOTRIN) 600 MG tablet, Take 1 Tablet by mouth every 6 hours as needed for Pain for up to 7 days., Disp: 28 Tablet, Rfl: 0 acetaminophen (TYLENOL) 500 MG tablet, Take 2 Tablets by mouth every 6 hours as needed for Pain or Fever for up to 7 days., Disp: 28 Tablet, Rfl: 0 Rivaroxaban (Xarelto) 20 MG tablet, Take 20 mg by mouth daily (with dinner)., Disp: , Rfl: metformin (GLUCOPHAGE-XR) 500 MG XR tablet, Take 500 mg by mouth 2 times daily. (Patient not taking: Reported on 04/28/2024), Disp: , Rfl: Paxlovid, 300/100, 20 x 150 MG AND 10 x 100MG tablet therapy pack, See admin instructions., Disp: , Rfl: valsartan (DIOVAN) 320 MG tablet, Take 320 mg by mouth daily., Disp: , Rfl: albuterol (PROVENTIL HFA) INHALATION HFA inhaler (VENTOLIN,PROAIR,PROVENTIL ) 90mcg, INHALE 2 PUFFS BY MOUTH EVERY 4 HOURS NEEDED SHORTNESS OF BREATH OR FOR WHEEZING, Disp: , Rfl: atorvastatin (LIPITOR) 40 mg tablet, Take 40 mg by mouth at bedtime., Disp: , Rfl: Cetirizine HCl 10 MG CAPS, Take by mouth. (Patient not taking: Reported on 04/28/2024), Disp: , Rfl: citalopram (CeleXA) 20 MG tablet, Take 20 mg by mouth daily., Disp: , Rfl: fluticasone furoate (VERAMYST) 27.5 MCG/SPRAY nasal inhaler, Use in each nostril. (Patient not taking: Reported on 04/28/2024), Disp: , Rfl: hydroCHLOROthiazide (HYDRODIURIL) 12.5 MG tablet, Take 12.5 mg by mouth daily., Disp: , Rfl: hydrocortisone 2.5 % cream, Hydrocortisone (Anusol-Hc) 2.5 % cream with perineal applicator Active 1 APPLIC RC DAILY December 17, 2022 12:00am (Patient not taking: Reported on 04/28/2024), Disp: , Rfl: Vitamins/Minerals: None Biochemical Data/Medical testing/Procedures: No results found for: HBA1C Lipids (last 3 years, up to 8 values) No lab values to display. BMP (last 3 years, up to 8 values) 04/28/2024 1:31 PM Na 139 K 4.1 Cl 102 CO2 24 Gap 17 Glu 181 BUN 22 Cr 0.99 Ca 9.7 eGFR 81 CBC (last 3 years, up to 8 values) 04/28/2024 1:31 PM WBC 9.8 RBC 5.04 Hgb 15.1 Hct 45.6 MCV 91 RDW 15.0 Plt 168 LFT's (last 3 years, up to 8 values) No lab values to display. Anthropometric Measurements: Weight: 317# Height: 74 BMI: 40.8 UBW: 317# Adj BW: 222# BP Readings from Last 1 Encounters: 05/08/24 132/53 Weight history: Wt Readings from Last 10 Encounters: 04/28/24 (!) 318 lb 12.8 oz (144.6 kg) 04/28/24 (!) 317 lb 14.4 oz (144.2 kg) Food/Nutrition-Related History: Appetite: really good Supplements: none GI Sx: None Urine: Yellow Dentition: Own Teeth Allergies/Intolerance: None 24 Hour Recall: B: none Snack: none L: fish sandwich, roast beef sandwich Snack: none D: roast beef gyro, filipino fries Snack: none Beverages: water (60-80+ oz), coffee (3 pots) Shopping and cooking: self Dining out: 3-4 Days a week. Household size: 2 Food Assistance: None Adequate food supply and adequate cooking and storing equipment: all Social History: Substance use: none Smoking: none Alcohol: none Physical Activity: Aerobic (treadmill/recumbent bike) Frequency: 20-25 min Duration: 2-3x/week Nutrition Focused Physical Exam: Muscle loss: [place] region: well defined Clavicle region: not visible/not prominent Scapula region: no depressions Hand: muscle bulges Anterior thigh: well rounded Posterior calf: well developed Fat loss: Orbital region: bulged fat pads Tricep/bicep region: ample fat tissue Rib/back region: chest full/ribs do not show Edema: none Estimated Needs: 8442-2951 kcal/d 30-35 kcal/kg Adj BW 131-152 g pro/d 1.3-1.5 g pro/kg Adj BW 6991-7284 mL/d fluid Assessment for Malnutrition: Not at risk for malnutrition 73 y/o M with PMHx of HTN, COPD, h/o PE, h/o L parotidectomy for Warthin's tumor, and WALE. Recently presented with R-sided lymphadenopathy and base of tongue lesion. Differential diagnosis most likely related to squamous cell carcinoma of the oropharynx (HPV positive versus HPV negative) versus metastatic cutaneous squamous cell carcinoma versus lymphoma versus other etiology. Plan for tx concurrent chemoradiation, closer to [place] in [place]. Pt reports good appetite and eating well throughout the day. Mostly drinking water and coffee. Denies any pain or difficulties swallowing, taste changes, or ope (more content not included)... [facility] Inter Fold Roll Cutter Authentication Interface Message Text Consent signed by patient for baseline NavDx blood draw. Attempted on L hand with no success. Jeannette ARTEAGA in to see patient, able to draw from [facility] with butterfly needle. Will be sent today via FedEx to [facility]. Will repeat after treatment. Cindy Newell RN [facility] Inter Fold Roll Cutter Authentication Interface Message Text OTOLARYNGOLOGY - HEAD AND NECK SURGERY CLINIC NOTE CHIEF COMPLAINT: Chief Complaint Patient presents with Post-op Follow-up Tongue biopsy HPI: Robert Ron is a 73 year old male with PMH significant for COPD, WALE on CPAP, hx of PE (2019) hx of left parotidectomy about 10 yrs (Dr. Dubois) who presents today, 05/13/2024, at [facility] for follow up regarding right neck mass and base of tongue tumor. Now s/p DL with biopsy on 05/08/24 c/w p16+ BOT SCCa Interval History (05/13/24) Overall doing well since the biopsy. Pain controlled. Denies any bleeding and restarted his Xarelto without issues. Initial HPI (04/28/24) Today, pt reports 8-10 weeks ago started noticing right sided jaw pain/throat pain and then swelling in the right parotid. He then noticed right neck mass a few weeks ago. Associated right otalgia and soreness/irritation in the right throat. Associated with mild hoarseness. Denies fevers, chills, unintentionalweight loss, night sweats, otalgia, sore throat, oral bleeding, shortness of breath, hemoptysis or new lesions/masses. Denies history of radiation or previous of head/neck surgery other than prior tonsillectomy. Denies history of cardiac or pulmonary issues other than COPD. Able to walk/up downstairs without issues. Currently on Xarelto due to hx of PE. Denies any history cutaneous skin cancers Former smoker (1/2 -1 ppd x 52 yrs, quit in 2011 . Denies history of significant alcohol use. All other systems are negative except for that listed in the HPI. Past Medical/Surgical History: He has no past medical history on file. His has a past surgical history that includes laryngoscopy (N/A, 05/08/2024). Past Family/Social History: His family history is not on file. He reports that he has quit smoking. His smoking use included cigarettes. He has never used smokeless tobacco. He reports that he does not currently use alcohol. He reports that he does not currently use drugs. Medications/Allergies/Immu nizations: His current medication(s) include: @CMEDLISTP@ Allergies: Sulfa antibiotics, Immunizations: Immunization History Administered Date(s) Administered COVID-19 Vaccine (12+ yrs, Moderna) mRNA, spike protein, LNP, pres. free, 50 mcg/0.5 mL dose (RTU=651) 01/24/2023, 01/21/2024 Influenza, injectable, high dose seasonal, trivalent, preservative free (IES=715) 12/19/2016 Influenza, injectable, quadrivalent, preservative (XJP=583) 12/22/2020, 01/03/2023 Influenza, injectable, trivalent, preservative (EXU=758) 01/07/2024 Influenza, novel E5Q8-65, injectable, preservative-free (PON=655) 02/03/2009 Moderna Monovalent (12+ yrs) COVID-19 vaccine, mRNA, spike protein, LNP, PF, 100 mcg/0.5 mL (TGR=667) 06/24/2020, 07/22/2020 Pneumococcal conjugate 20 valent (PCV20), polysaccharide [id number] conjugate, adjuvant, PF (EXG=807) 01/21/2024 Respiratory syncytial virus (RSV), vaccine, recombinant, protein subunit RSV prefusion F, adjuvant reconstituted, 0.5 mL, preservative free (DZB=326) 01/24/2023 Zoster Recombinant (RZV,Shingles) (YUA=116) 08/20/2019 PHYSICAL EXAM: Vital Signs: Pulse 59 Temp 97.3 ???F (36.3 ???C) (Temporal) Wt (!) 317 lb 8 oz (144 kg) SpO2 97% BMI 40.76 kg/m??? General: Well-developed, well-nourished. In no acute distress. Communication and Voice: Clear pitch and clarity Respiratory Respiratory effort: Equal inspiration and expiration without stridor Neuro: Appropriate mood and affect; Cranial nerves II-XII are intact Head and Face Inspection: Normocephalic and atraumatic without mass or lesion Palpation: Facial skeleton intact without bony stepoffs Facial Strength: Facial motility symmetric and full bilaterally Eyes: No nystagmus with normal extraocular motion bilaterally ENT External nose: No scar or anatomic deformity TMJ: No pain to palpation with full mobility Salivary Glands: No mass or tenderness Lips: No lesion. Oral cavity: Moist mucosa. No mass or lesion. Oropharynx: No mass or lesion. Tonsillar fossa symmetric. Base of tongue soft difficult to palpate due to gag reflex Larynx: Unable to fully visualize larynx on indirect mirror laryngoscopy due to gag reflex Neck Trachea: Midline trachea. Thyroid: No mass or nodularity. Lymphatics: Firm right tail parotid lesion versus intraparotid node/high level II lymphadenopathy. Firm, relatively immobile right level II/III neema conglomerate (stable) No overlying skin changes nontender to palpation Pathologic Review: 05/08/24 Final Diagnosis A. Tongue, biopsy of right base of tongue INVASIVE POORLY DIFFERENTIATED SQUAMOUS CELL CARCINOMA with ulceration, acute fibrinous/inflammatory exudate, and necrosis. B. Tongue, Biopsy of base of tongue INVASIVE POORLY DIFFERENTIATED SQUAMOUS CELL CARCINOMA with ulceration and necrosis, in a background of prominent lymphoid stroma/lingual tonsil. (See immunohistochemistry results.) Electronically Signed Out by Faith (more content not included)... [facility] Inter Fold Roll Cutter Authentication Interface Message Text Patient identfied by name and date of Pharmacy updated Vital signs taken Patent in exam room ready for MD [facility] SPECIMEN FOR SURGICAL PATHOr dered By: Sun Allen on 05-12-2024 Case Report Surgical Pathology R eport Case: [id number] Authorizing Provider: Simon Packer MD Collected: 05/08/2024 0803 Ordering Location: [facility] Main OR Received: 05/08/2024 0810 Pathologist: Sun Allen MD Specimens: A) - Tongue, biopsy of right base of tongue B) - Tongue, [facility] base [facility] Phone: Clinical Information [facility] Work Phone: Final Diagnosis [id number] bGFuZz EwMzNcZnRuYmpcdWMxIHtccnRm OBfevQtbZAY0FUCmFM0qiRcaqZ o4dYrhPMRhyfE3kSPuMXvld0uu EAV3o5oagwhfCQBxKKpbVr5ppR GagTqbHgUtPPBtSEx1hD63SYEo zM9nbPMlCRq1HBMmrYIynlZrKw FaGJPouKRqwHF9MNRdJM9tebzx BWwaADimDHPuijW9SNNtlZTkH0 DzUPHlBL0hrwrbKWV8HAywIMDz YEK8XuTzHOOej7Qikvd5RdBcjM PeEKrhsVZpnnmbUEQeBvJdCJ1x MgHmsqd4MDakTbkwhFS6WG9sSZ JeL3u3LWKyp3Mxj6ZueE8iM7Xo IlxwYXJcYjBccGFyIElOVkFTSV YIFKDHD6PWMBZUDZWDUDEUMiRM JGFRDXDYOYQZPI2XUxKEYGvJTC BYUkQQWr3WTRX7kTHyCRNyH6Jx QWHmx28nQUYuoGYxZGLfWjBfba 46um8lhfSjRE7eDGPorqlrQJt4 VTC1JNmxFT0rWI9kY8Dlw4xrZc brMXOyJSoyTAZxElQZMsAdFL3s D6HyBZRJlC5bl0iuh8IaTjTvWJ JjXbH4c25ufQWzPEVujhypWFdw APUwEQ5UXBGBCqDaMB7JTwzUEZ RJRkZFUkVOVElBVEVEIFNRVUFN H8JCEPFIZThxE5WJD9vZK56PUP dpdGggdWxjZXJhdGlvbiBhbmQg jeAysu5qgMMiXIoqNFRnSqVrh8 jpc1NiJXEnEpSurz4nhZ6ihdVy bXjmtGkhrPMmj3Wpl11xL0cmpk q6PNejxP0ft7ddDuDnY2YmROck iKQgl0ycn1QgC8bkeAxgpSM0BD Mii9OeuFQuQNvdYPLuwAMhGJXg rl51NKF3RzXhy1M7GAVeJrHtQE JlAU8ooCsmWOEdHL3pFCAfC2aa xA7ipax2QgPzEEPdDkN8EWApvr N4Myi8RZDoIBsos5kfu1QeRFJp ELz6tAdcKdHlLCAqu5hakrDrPq JjUEWbJRPtCNByuEFeX051h0wu y7mxesPjyDW3SFYxFAU7CAprca SxvdF0THniaOSdWhE5UHkkxqSm JPLkJ4IeRC91SQbopTEkWQThG0 xyZWQwXGdyZWVuMFxibHVlMCA7 wMhaf8F4kPNtfJAkmZdpWoXgGi BhVlLCs8GwCQl5mKtrO4TyJVUv QbQ0hCXdDAAxTYozBECjSCBofx G7rX70RYitupQ7hPJoi3Zoi17r x584hR6ycORoWBC8JRGmZSFsyR ZrNTJnLWL9TCWcsFNmP3etMQRm LE5jjpouXFjnZHaiCRQloRO3IY VizDAjM9YnBZTfMMaaUIJvaxg4 KeXkKu9lhFKdsRlfKYtgi8yjo1 xdlKHpWwg0AQIrZfKeRztkEGvl e7Qbm5ebCMTujh4qGPZ0jMEbjR mue5H4xCDrMOWyvUBnfiBiLTHk QhE1DDzuYO4lmn19TNXvFHW1si 8uyNBvyRbwspGrxXWlUEnnR9Ca RCHny738TRDaJ0JcYRCks6L3ci NfMwKnNOXqoZP3coK7NNRmOZe6 yGUczfE3spNkyHPrF3zxdC3hZF LtHE1lcgtwn8ycBUhiDFgsSJNa kWU4ueE7NWMgxZQhG9AqkP2gMD DlXGkiVEFgmdl9KsEtYv1yyWVz eTcyMFxzYmtwYWdlXHBnbmNvbn RccGduZGVjXHBsYWluXHBsYWlu ZXLyBWMnFbAylNboqPylpM0cLt EeXzYwLluuQR9aAZGlP1almNUq KEYpEUTsT0piPsEbnJ9jyUvjXS xmczIyXHBhclxwbGFpblxmMVxm huQgVVptsqfeHMLaRVpgS3ckNc NsHCIwpBnuNCogv6EcRJLtETYu OeJvZMlqL2Qao57uM8CgwKgjX1 vornUtKO77kNTpnANEKU57uXdz V1MuACKsranyJFOpl31kQMGzNJ okWbXsLY1vzXDbTCKhtcpabPAz oxlbARalddL7NJitiiehGDDcFA fgW6hbJwHpVAJdsIgjCUppz1Jq UVTzDRGzWkoblgX0GFvxNYAdPV C4yEM1TPApPITaFPUuHIMsu40r kVj1HZUgsfU3U5QrVLC7gTVvPS zwK31ta6KcZkZvhuXvaSI8tY8o LG4nWRYqMPVxRk67XOTcfYKuyW 6fklojOFTigaSjaKR0OSSjJQ9r CFHtGMR1hZOhTallFSkqFMatW1 0ib9axYKOjDO5nQTSeDEkcHIWc XGZzMjJcbGFuZzEwMzNcaGljaF egROtnLrGrBOIfTUtiK8njIcVa ZnMyMlxwYXJccGFyfX0= [facility] Work Phone: Gross Description y6mbjYNkPCMcaUHaXKds Nlxhbn TiYLMlaWBdN2PazjdfXYziJT9f CY9nlUdtoLLslSVsMWNoQtPxc7 eml382yBKld2ftPRSWimzybCj0 bVqtT21ds7W1OhadI13iuAIzOW K0FOMmIGGhnSHeRBVnYAE1ISWc nGNeY7emPFHvEW8kdjxiTKohSJ czHMHaoPN1HJGzhBPoR8AwELEe EMfkXCZxhon2ExHqYe5soTNbkO cyMFxwYXJkXHBsYWluXGZzMjAg LD6cFbZyeDbsyHYjg24xXBJzdn TljL2xC7WuNHElzB4ys4okErim zAY7EA7kHEKku6Sia2MdbB5oC0 UwDa4hdTTtMWBewyCHrJJns0Jz P5hlVZ8wiIChqnRuRUg8PHVrEm Gfg3guuF0vk77vTVLdsgScpR5i jzavtXPgUVnxSVN8jXPtXHWlZS FaDHOfQG85R0QhwoDoHVUiheOp bWVkaWNhbCByZWNvcmQgbnVtYm UwWtZEODVoWJSuMTTeAeQgl7Fs pNEqOsUqKDFiWI5uTCQooli9XJ TbMCCuWGYgkTUdwJ0ucpUur35a bWJ2jeSeXzKxkSz8sZJwYOQdwf UkwWPqiMNex4QhmFmwcn13UL1j UGCjHgXctGjzp4AhCA5bYKK0zk boUbIaSPhmJG69IPruIO3fYGRz MVsoXMPnL3GdY2U0LSgvFCMymQ GsECUsP7Drt78aPcTbLNAXcyE3 l6YaWYPjxdxlCXVjAXJxPOIAxR hnzDOkOQXrYG7vXPCkopj4KNMx LNrpkFEpYVXwxhINXrMGHJB5qH ZwpZvnusZvSGFcAIH8y06biWEg BSElg3DesKShEkOqKSQaVK4nIC Ykokn4LNIcVSHhrswxWWJqOYjw PDMuNMJfaEZjYYkgROPyV3Ilhs RtCGMcFMMqNFpfIS8hYAWgp328 IHqlQHKaBFasVkVfJYGai8p0wQ W7tXGtvFI6zHAydCdwEP0eqXRg PU4xYW7aSUiuYHflznLop0EiOK 59kHTspq9ePDBpc3JyZMLzJCUz qL8hj4lxn6NfEhDfDDJjFjB5b6 7klSRmIeXCkEMnp6XhF7vxMO4p P13aw7xonUBtj6IheKLscEdwrM WbPyXfG47gntWnXX7gYZUamslk lLTnWITsx4Z0YXYgd5J2XZJfST VstIHsvotxNHY1LHBzBrA2TKTk IxDybRRakxDiF1lsIIqgdMDlLH MystdvVKTnF5XyrRpcjsI5QLEI cmL6f5CsPLRgfvvjEOWjLgHqWG MKrK2tk5vhp9EtDtKjTEFlMjZ0 z36wcYHtKKlxSBXlfnqyFLRdzY FyXHBhcmQgVmluYXlhayBBcnlh bCwgTURccGFyfQ== [facility] Work Phone: Immunohistochemistry j1pucVZoVGXqvMNbYZy wNlxhbn UeZIPaoKQmZ1UfqqjuAVxnKC3e XM8eiInlxZMkpWKmARVoBzNvp4 tmo687mGUdg9pjGGFVqbuhbDy3 vAjmZ73yy7Q3NbyvU9jnARLmOM dyZWVuMFxibHVlMDtccmVkMTEx OPztDIYaSFOhUWOprEJaPQN0xV yiNGLazfuuXzA3KQfwKTDzbzkn WPg9DVmlYYHaiOH9KXGfkGRyQ8 MlFZIqHF2akkp6HJE1PDcsOOMh GgO1BBSoiOWsNPNueMcaMCfro2 36UAU3YmGeYYMwoiWhqQwutJ7l KthpuiGwENuBPIMOV6yTS4SSQ0 kQZKgOJGLNDHMULUHKZFG5GNAa lzswVORyPC1eJA64WYLgziD7BD Vxv54iLL6yxIKyANxvBeDzJBua cpkmTKwiKMZqRLSJqhToSv1avQ dodFVrWTOmFUJfJeajG1FgFZZk PR5dbWOvdcBnUEPlSIQor3IxTV 5nZynkQoMttMAsfghpO4tqIbVe ICg+YVNxMQ9yFYK1nE8zNLVfsY dcFYqeUTMfL6AjKRMoagzbdVYq kPzrOXRFo13gMP91ZoXfXAtnDO nmcDFel1qyb1AhI7umzKziRUwr y4OxyC2ai4VukG9bhVcaWrCvz5 keSrHrAHXnEZWqQv63LSZgbUMu cs1xpSRsAUnuQYQgWHhmKARid9 TdUHwzwXKkx3quo1JxT7lgtPso BPfsj7PhsG3sW0SqQEVpTHWjPG IbSYXntfRbwV9uFGPnfRAsmVXu kFgqRHUoe5WyDlvoFBWzXEOewr meCpOmN1LwZ2WrWHOeYjJIQRAp BTEMAwMvZWzylDWtZMwnB8DqLW lnaCBncmFkZSBkeXNwbGFzaWFc F3QySO5sGX7unNYlxHMtfqDorE StWQ9gBRtkpLLmsA5yl5srLGPy ubtmISHpTMrsSSyzxOMve2ulb3 PbC9vriVjfDSjdg6NkpU3tQCF8 mEClqgMkfMrjLTYso9ZjSBIwZR nxv9Pqqo8dDRlkJZTfc4QwYWpw uLQub1bcb3IjX9optKjwHXlhg4 HatG6kCDJqVRDef14aEPyxon77 RVB4h4fbpLEsUWwoHkpmiUBuaw C8XTfHODIQHCjUHsRcDN9jLGvI B8OFTAwFPhewNPGfELL3WUhiqM fiAehpqdOtlBLyTwIofE26rwWy dQD4kXTaLCEfYCEbB5Fmcip6NH F8eJJeHZgaOHImLKHpqh1wJMGt f0sgbTGyMYflKehttLUyuqL5ZQ dYMRTOYCiLIjQqSK1zBDvSQ8UX TgM8XVPaZOa7nMR7MB29AVSaCO SetITtLBrsX239SMMnAXokMHFr MjAgLlxwYXJccGFyZFxwYXJcYi MFh173ks4uihiqBJGzSCMaICPq edexcCNtCWdcTMTIOGWhnU4ueT 3mrXBeJLLhjjexQSLed7DeONdw GJQ0NLVgTDRoX0EkLQQAjjRnrL RlLXNwZWNpZmljIHJlYWdlbnRz HA8vWLFfu4RctL1lwUUcHNBpsZ 5rHNFlmOTztOHzNmEBp7YgWtcm POIJZZDbVeGSgt9zkBH7VQn1Zi FqIEg1PNJyh55ghNQagHFokOIr KURtqiFdqB87mg5sePA2t9PyMD 2tq2BhvRU3PZNqUNQwcnTfi1Sj LBQhvmXxpBygaYWydHIsXi3eyR RcI9ViW3cavbZweROsiHD4jZZw DKDwkOBhoWoaCVYsGzeuy2KhJN GpbvDmpgHzKQCOOIUsq7vdCKs3 gMHJYHQqT0MxKJLsvbBeiidoNE SlEOC4zUUniNNlReVHNAIwk1nr L1zlMg3iiX60zuP0UZ2qc7HvVs VppnW5uwXvzQlranHqEN9bCYGp wpJtdMRiiFIwoBpqx6SmuGYaeC EtINRlohEdwJcuIMVnLNDLt95r DBgpnWUqq9lwk4WhN2kgmYtkDC kyb9LrlO1sPDzhjoIwmt28MSVn LT2sC2czXVApBRBlbzVmhLLar5 XnSUPprNS2rXNsNSXiAv1lSMXx brUeZFQ6MyURSC1xrcctgDCxqH aydu7xBVNnNICBHZCpkXLfKBWp dGVybWluZWQgdGhhdCBzdWNoIG TvTIEkDP2iTLLhrqFtgODmn7Ku jHHadwSvo1SrmnGiOTFcZQQ9Lf VaKWbojlL4SJD2XTsfNZIzKAEo Fb7aOAZihR8fJ4VmKMI5dtEat9 TfEtOlVSWtc1jrkSziQK9lrXPb ZSByZWdhcmRlZCBhcyBpbnZlc3 JxY9B7qO4wLUqnv3QjHy7qCAZr k4HgbnSsXvIzDIHqMMmswZp6PD EjDSH8uKHgk92iXIElVXAmePZy FumdBXOctELwdF0jvuDeXK3sEs dxK96kNCAfpI1hg8qmc0AaVx5a ENlgs0tqoBgwXCBmBCqqvZLiaY UinKHtDSddlDfnR8P6vZwgzbIx fzWitCL3RW7puUWtSHQmlePgW0 M9fTYcEO2iINWlxUCcVCbhwpYl h2elolCskFR2kEGaAOZNOX1zG5 L9bXOpVRKzm0ZfdNFejfZkCEJ9 bN3nb2r8LZTemQywMzulH2xoz0 hvdWxkIGJlIGludGVycHJldGVk XQyksVlaT1A5hHnrafRxtaOdzL L5DJ5pbYBrJFPrxpPiQ4A4yCJj YG7lHFUjOGBiiaLbAi4byVlkIN AcePXsVOumreAnr3labvZbkTR4 kLYaSHYzSLBiiJ33kDTlCrEzL1 7tvJYcKWZaqU9uFOF2eASezWRs q5XttQhzSIamLQ2ryM7hx4zdhW RySXCMyExiGIieSp5wTQZzdfvv oANvK0UrnByeoQNjVVScNVXtUX NMSUEgYXMgcXVhbGlmaWVkIHRv WHEwkvEygl4ivKoccYLsv94aeL X6wIM7ZDIgm7JkfplzOINnexhq ZaYnoRBuLJTbI27ETcMMODOBN5 0UXTXNAUDDZ7KFS0xGKDO8HSK6 IdnbCSKlP52USpFXWLZDF19RSN MBXNSSR2CNNAXPRFnTF5ZQCC5T SYFEADNLRJ4UDAaZDcTACHdCO1 FYDZ6WSRCUDBIFQZ2NPuDsVSgY X8VKS9fWAIIpMJHJCXTRZTMyUj HBXA7oDUp2QTxPGjV8GOU4Wrt9 CHRYCBNOWU1ZBSLXH34PDIMSWQ YPR1PVXUFOAhZQFZMMD04AKWHC QENPZ3KZU0hOVONGZfTZRMMLS2 9BSZINBBDQD7XLLLZWAPOQNzEK SmZJNL5WUBIOUYRSWB6VAXjPWw QjHGQHT1PEWsCWE0ahOHMZVZMA INVeWM1NmE== [facility] Work Phone: Intraoperative Consult i2mkqHZePWGiiUZqU DkwNlxhbn TiRSYtvCUpH6MabnmoHXglZN5u PC8kmUkgqCVrhRNtFMGgCnRyu1 fkd491dAEpk5jgBWANgqzsyGm0 hNfpU02qm8B8SxgqZ56ocCVmLL L9NHNkSPHefHUcOLGcGPC5LTNg cLGwK8thTHIfFO7apqorIApdLJ orKOVgpMN6OALtkYBhP5HtESYi LPqqDNGptsr0CcNyGn1wjRVmjE cyMFxwYXJkXHBsYWluXGJcZnMy WYIRYbLyXW0nH7EmJUAhhO0ym6 dhc0LdxhvldZXzZqSnWJMuIzF5 w85ouYCxOVQmsjrrZFxcLOEdwP GxRDMLMmOQV9uTIHGGGEYBIO5I RcCHRPlCELRJRzCKDp0EVG3ljH FyfQ== [employer] Work Phone: [employer] Work Phone: Anesthesia Postprocedure Carol luationon 05-08-2024 [employer] Authentication Interface Message Text Anesthesia Postoperative Assessment: Vital Signs (most recent): BP 132/53 (BP Location: left arm) Pulse 75 Temp 36.9 ???C (98.5 ???F) (Oral) Resp 16 SpO2 93% Anesthesia Post Evaluation Level of consciousness: awake Post-procedure exam normal. Body temperature, hydration status, PONV and pain evaluated and addressed. Pain management: adequate Hydration status: normal PONV:No nausea/vomiting reported Cardiopulmonary status stable Respiratory status: acceptable Cardiovascular status: acceptable ANESTHESIA NOTABLE EVENTS: No notable events documented. Normal [employer] [facility] Anesthesia Preprocedure Eval uationon 05-08-2024 Inter Fold [employer] Authentication Interface Message Text ASA: 3 No history of anesthetic complications NPO status: Greater than 8 hours Past Medical History and Review of Systems Pulmonary (+) sleep apnea, COPD, PE (on xarelto) Dental - negative ROS Endo (+) diabetes mellitus, obesity Neuro/Psych (+) depression Cardiovascular (+) hypertension, Surgical risk: intermediate; Cardiac condition: no apparent ECG reviewed Comment: EKG 04/2024: Sinus rhythm with 1st degree AV block Nonspecific ST abnormality Prolonged QT interval or tu fusion, consider myocardial disease, electrolyte imbalance, or drug effects Abnormal ECG GI/Hepatic/Renal - negative ROS Heme/Other (+) anticoagulation therapy Other ROS: Right-sided lymphadenopathy and base of tongue lesion concerning for malignancy Physical Exam Airway Mallampati: III TM distance: Adequate Micrognathia: Not present Jaw opening: Adequate Neck flexion: Adequate Dental PE (+) intact Pulmonary - pulmonary exam normal Comment: Chest clear to auscultation bilaterally Cardiovascular - cardiovascular exam normal Comment: RRR with S1S2; no murmurs, gallops, or rubs Neuro - neurological exam normal Comment: Awake, alert, oriented, No motor deficits and sensation grossly intact Plan Anesthesia plan: general; (ETT) Anesthesia risks / alternatives discussed pre-op Questions answered / anesthesia plan accepted Past medical history, surgical history, allergies, and medications reviewed. Pertinent laboratory tests, EKG, imaging, and consults reviewed and I have personally seen and evaluated the patient, repeating jennings portions of the history and physical examination. Attestation: Anesthesia options were discussed with the patient and/or legal health and safety representative. The risks, benefits and alternatives were reviewed. Questions regarding anesthesia were answered. Patient and/or legal health and safety representative knows such anesthetics and procedures may be performed by Resident physicians, Certified Anesthesiologist Assistants, or Certified Nurse Anesthetists under the supervision of a physician. The patient /or the patient's legal health and safety representative agree with the plan for anesthesia. MHPATFORM Normal [facility] Anesthesia Transfer Of [facility] 05-08-2024 Inter Fold Roll Cutter Authentication Interface Message Text Patient taken to PACU. Patient was drowsy, comfortable, and stable on arrival. Anesthesia Transfer of Care Note Past Medical History: No past medical history on file. 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 Allergies: Sulfa antibiotics Basic Operating Room Facts: Surgeon(s): Simon Packer MD Anesthesiologist: Arnie Mcgrath MD CAA: Erickson Chavis CAA LARYNGOSCOPY, DIRECT ESOPHAGOSCOPY RIGID Intraoperative Events: Hypertension ASA: 3 EBL: 5 mL Urine 0 mL Lactated Ringers and NaCl 0.9%: Fluid Totals (Filter: LR and NaCl 0.9% Medications Shown) Medication Calculated Total Lactated Ringers 700 mL / 1 bag Cell Saver: Not documented Blood Volume Values: Blood Products None MTP Blood: MTP PRBC: Not documented MTP FFP: Not documented MTP PLT: Not documented MTP Cryo: Not documented MTP Whole Blood: Not documented Current Vasoactive Medications: {Vasoactive Medications: None Lines, Drains, Airways Peripheral IV Access: 05/08/24640 20 gauge Anterior;Left Hand (Active) Site Assessment WNL;Dressing intact 05/08/24640 Infusion Status Port #1 Patent;Positive blood return 05/08/24640 Airway Insertion Details [REMOVED] Advanced Airway: ETT, Oral;Cuffed #6.5 (Removed) 05/08/24737 Pre-Oxygenation/ Induction: Mask Rapid Sequence Induction?: Mask Ventilation: Difficult;w/oral airway Blade Type: Hyperangulated Blade Size: 4 Visualization: Grade 1 Airway Type: ETT, Oral;Cuffed Airway Size: #6.5 Post Insertion Assessment: Confirmation: Equal bilateral breath sounds, CO2 confirmed # Attempts >1: Special Equipment: Glidescope Present on Admission?: Previously Removed / Not Present: Removal Reason: Not Removed at Discharge: Removed 05/08/24842 Location (cm) 26 05/08/24737 Measured from: Lips 05/08/24737 Secured via: Taped 05/08/24737 Site Assessment WNL 05/08/24737 All non-working IVs have been removed: N/A Laboratory Data: CBC (last 3 years, up to 8 values) 04/28/2024 1:31 PM WBC 9.8 RBC 5.04 Hgb 15.1 Hct 45.6 MCV 91 RDW 15.0 Plt 168 BMP (last 3 years, up to 8 values) 04/28/2024 1:31 PM Na 139 K 4.1 Cl 102 CO2 24 Gap 17 Glu 181 BUN 22 Cr 0.99 Ca 9.7 eGFR 81 Basic Metabolic Panel No lab values to display. No results found for: INR No result for BNP LFT's (last 3 years, up to 8 values) No lab values to display. Arterial Blood Gases None Hand off Completed: Yes 1. The patient was identified. 2. Pertinent medical history was relayed. 3. A brief discussion was had about any pertinent surgical/ procedural issues. 4. Intraoperative/ anesthetic management issue and concerns were discussed. 5. Plans for the early post-operative period relayed. 6. An opportunity for questions and acknowledgment of understanding of the report was received. POLLO Salazar Normal [facility] Blood Attestationon 05-08-19 Inter Fold Roll Cutter Authentication Interface Message Text Blood Attestation: ATTESTATION OF INFORMED CONSENT FOR BLOOD: The transfusion of blood and/or blood components were discussed with the patient and/or legal health and safety representative. The risks, benefits and alternatives were reviewed. Questions regarding blood transfusions were answered. The patient /or the patient's legal health and safety representative agree with the plan for transfusion of blood and/or blood components. Normal [facility] Interval H AND P Noteon 04-25 Inter Fold Roll Cutter Authentication Interface Message Text H AND P reviewed. The patient was examined and there are no changes to the H AND P. Medications, allergies, and pertinent laboratory and diagnostic tests were also reviewed at this time. Surgery still indicated. Normal [facility] OP Noteon 05-08-2024 Inter Fold Roll Cutter Authentication Interface Message Text Operative Report DATE OF SERVICE: 05/08/24 PATIENT: Robert Ron PREOPERATIVE DIAGNOSIS: 1. Oropharyngeal mass POSTOPERATIVE DIAGNOSIS: 1. Oropharyngeal mass, squamous cell carcinoma PROCEDURE: Direct laryngoscopy with biopsy, CPT 99982 SURGEON: Simon Packer MD PLANNING SUPERVISOR: Resident surgeons: MD Jimenez Craig MD ANESTHESIA: General ESTIMATED BLOOD LOSS: Minimal COMPLICATIONS: None SPECIMENS: 1. Right base of tongue x2; one for frozen and one for permanent INTRAOPERATIVE FINDINGS: 1. 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 Biopsies obtained from above lesion, frozen specimen positive for squamous cell carcinoma INDICATIONS AND CONSENT: Robert Ron is a 73-year-old male former smoker, COPD, WALE, history of PE on Xarelto, history of left parotidectomy for Warthin's tumor who presents with right-sided lymphadenopathy and base of tongue lesion concerning for malignancy. They were therefore offered the aforementioned procedures. After the risks, benefits, indications and alternatives were discussed with the patient, they elected to proceed. Informed consent was obtained DESCRIPTION OF PROCEDURE: On 05/08/24, the patient was identified in the preoperative area, consent confirmed, and transported to the OR. They were transferred to the OR table in a supine position. After induction of general anesthesia, a surgeon initiated time out was performed. The bed was rotated 90 degrees. The patient was then draped appropriately. The eyes were protected. The oral cavity was first examined and palpated. The laryngoscope was then atraumatically inserted into the oral cavity and examination of the oral cavity, oropharynx, hypopharynx and larynx was performed in a sequential manner at that time. Examination of these areas revealed friable exophytic lesion at the right base of tongue as noted above. This was biopsied and sent for pathologic analysis. We then proceeded with rigid esophagoscopy. Due to difficulty passing beyond the post-cricoid region and upper cervical esophagus, we did not proceed with this portion of the procedure. This concluded our procedure. The patient tolerated the procedure well without any apparent immediate post operative complications. The patient was rotated back to their original position, gently awakened from general anesthesia and taken to the PACU in stable condition. Dr. Packer was present for the entire procedure. Normal [facility] Telephone Encounteron 2024 Inter Fold Roll Cutter Authentication Interface Message Text Reached patient, who is advised of scheduled speech, nutrition and ENT appointments as well as dental. He states that he has called his local dentist as well. If he can get in to them sooner, he will call and provide information so we can send dental clearance checklist. Cindy Newell RN Normal [facility] BASIC METABOLIC PANELon Anion gap [Moles/Vol] 17 mmol/L Normal 10-20 [facility] Comment on above: Performed By: #### C H8 #### [facility] [address], [place], Calcium [Mass/Vol] 9.7 mg/dL Normal 8.6-10.3 [facility] Comment on above: Performed By: #### C H8 #### [facility] [address], [place], Chloride [Moles/Vol] 102 mmol/L Normal 98-107 [facility] Comment on above: Performed By: #### C H8 #### [facility] [address], [place], CO2 [Moles/Vol] 24 mmol/L Normal 21-31 [facility] Comment on above: Performed By: #### C H8 #### [facility] [address], [place], Creatinine [Mass/Vol] 0.99 mg/dL Normal 0.70-1.30 [facility] Comment on above: Performed By: #### C H8 #### [facility] [address], [place], ESTIMATED GFR (CKD-EPI) 81 mL/min/1.73sqm Normal >=60 [facility] Comment on above: Result Comment: 2020 CKD EPI Equation using Creatinine without Race Comment: Estimated glomerular filtration rate (eGFR) is calculated without a race coefficient. Values should be interpreted in the context of the patient's full clinical presentation. Reference: 1. Tomy C, Adelita M, Marin ANTHONY, et al.. A Unifying Approach for GFR Estimation: Recommendations of the NKF-ASN Task Force on Reassessing the Inclusion of Race in Diagnosing Kidney Disease. Citizen Of [place] Journal of Kidney Diseases 2021;79(2):268-88.e1. 2. N Engl J Med 1 Vol. 385 Issue 19 Pages 1641-2794 Performed By: #### C H8 #### [facility] [address], [place], Glucose [Mass/Vol] 181 mg/dL High 74-109 [facility] Comment on above: Performed By: #### C H8 #### [facility] [address], [place], Potassium [Moles/Vol] 4.1 mmol/L Normal 3.5-5.0 [facility] Comment on above: Performed By: #### C H8 #### [facility] [address], [place], Sodium [Moles/Vol] 139 mmol/L Normal 136-145 [facility] Comment on above: Performed By: #### C H8 #### [facility] [address], [place], Urea nitrogen [Mass/Vol] 22 mg/dL Normal 7-25 [facility] Comment on above: Performed By: #### C H8 #### [facility] [address], [place], Basic metabolic 2000 panelon 04-28-2024 Anion gap [Moles/Vol] 17 mmol/L 10 - 20 [facility] Calcium [Mass/Vol] 9.7 mg/dL 8.6 - 10. 3 mg/dL [facility] Chloride [Moles/Vol] 102 mmol/L 98 - 10 7 mmol/L [facility] CO2 [Moles/Vol] 24 mmol/L 21 - 31 mmol/L [facility] Creatinine [Mass/Vol] 0.99 mg/dL 0.70 - 1.30 mg/dL [facility] GFR/1.73 sq M.predicted CKD-EPI (S/P/Bld) [Vol rate/Area] 81 - PINF [facility] Comment on above: 2020 CKD EPI Equatio n using Creatinine without Race Comment: Estimated glomerular filtration rate (eGFR) is calculated without a race coefficient. Values should be interpreted in the context of the patient's full clinical presentation. Reference: 1. Tomy C, Bamacrina M, Marin DC, et al.. A Unifying Approach for GFR Estimation: Recommendations of the NKF-ASN Task Force on Reassessing the Inclusion of Race in Diagnosing Kidney Disease. Citizen Of [place] Journal of Kidney Diseases 202;79(2):268-88.e1. 2. N Engl J Med 2020 Vol. 385 Issue 19 Pages 0850-7195 Glucose [Mass/Vol] 181 mg/dL High 74 - 109 mg/dL [facility] Interpretation and review of laboratory results Abnormal [facility] Potassium [Moles/Vol] 4.1 mmol/L 3.5 - 5.0 mmol/L [facility] Sodium [Moles/Vol] 139 mmol/L 136 - 145 mmol/L [facility] Urea nitrogen [Mass/Vol] 22 mg/dL 7 - 25 mg/dL [facility] CBC panel Auto (Bld)on 04-28 Erythrocyte distribution width (RBC) [Ratio] 15 % High 11.5 - 14.5 % [facility] Hematocrit (Bld) [Volume fraction] 45.6 % 41.0 - 53.0 % [facility] Hemoglobin (Bld) [Mass/Vol] 15.1 g/dL 13.9 - 16.3 g/dL [facility] Interpretation and review of laboratory results Abnormal [facility] MCH (RBC) [Entitic mass] 30 pg 26.0 - 34.0 pg [facility] MCHC (RBC) [Mass/Vol] 33.2 g/dL 32.0 - 35.9 g/dL [facility] MCV (RBC) [Entitic vol] 91 fL 80 - 100 fL [facility] Platelet mean volume (Bld) [Entitic vol] 10.4 fL 7.5 - 11.2 fL [facility] Platelets (Bld) [#/Vol] 168 10*3/uL 150 - 400 K/uL [facility] RBC (Bld) [#/Vol] 5.04 10*6/uL [facility] WBC (Bld) [#/Vol] 9.8 10*3/uL 4.5 - 11.5 K/uL [facility] COMPLETE BLOOD COUNTon 04-28 Erythrocyte distribution width (RBC) [Ratio] 15.0 % High 11.5-14.5 [facility] Comment on above: Performed By: #### C BC #### [facility] [address] [place] [address], Hematocrit (Bld) [Volume fraction] 45.6 % Normal 41.0-53.0 [facility] Comment on above: Performed By: #### C BC #### [facility] [address] [place] [address], Hemoglobin (Bld) [Mass/Vol] 15.1 g/dL Normal 13.9-16.3 [facility] Comment on above: Performed By: #### C BC #### [facility] [address] [place] [address], MCH (RBC) [Entitic mass] 30.0 pg Normal 26.0-34.0 [facility] Comment on above: Performed By: #### C BC #### [facility] [address] [place] [address], MCHC (RBC) [Mass/Vol] 33.2 g/dL Normal 32.0-35.9 [facility] Comment on above: Performed By: #### C BC #### [facility] [address] [place] [address], MCV (RBC) [Entitic vol] 91 fL Normal 80-100 [facility] Comment on above: Performed By: #### C BC #### [facility] [address] [place] [address], Platelet mean volume (Bld) [Entitic vol] 10.4 fL Normal 7.5-11.2 [facility] Comment on above: Performed By: #### C BC #### [facility] [address] [place] [address], Platelets (Bld) [#/Vol] 168 10*3/uL Normal 150-400 [facility] Comment on above: Performed By: #### C BC #### [facility] [address] [place] [address], RBC (Bld) [#/Vol] 5.04 10*6/uL Normal 4.50-5.90 [facility] Comment on above: Performed By: #### C BC #### [facility] [address] [place] [address], WBC (Bld) [#/Vol] 9.8 10*3/uL Normal 4.5-11.5 [facility] Comment on above: Performed By: #### C BC #### [facility] [address] [place] [address], EKG 12 LEAD - PERFORMon Diagnosis Sinus rhythm with 1s t degree AV block Nonspecific ST abnormality Prolonged QT interval or tu fusion, consider myocardial disease, electrolyte imbalance, or drug effects Abnormal ECG Confirmed by ADÁN FREEMAN ([id number]) on 04/28/2024 1:41:04 PM [facility] P wave [facility] by EKG 84 BPM [facility] Q-T interval 470 ms [facility] Q-T interval corrected 545 ms [facility] QRS axis 66 degrees [facility] QRS duration 98 ms [facility] T wave axis 68 degrees [facility] H AND P (View-Only)on 2024 Inter Fold Roll Cutter Authentication Interface Message Text OTOLARYNGOLOGY - HEAD AND NECK SURGERY CLINIC NOTE CHIEF COMPLAINT: Chief Complaint Patient presents with New patient, to establish relationship Lump on right side of neck HPI: Robert Ron is a 73 year old male with PMH significant for COPD, WALE on CPAP, hx of PE (2019) hx of left parotidectomy about 10 yrs (Dr. Dubois) who presents today, 04/28/2024, at the [facility] at the request of Referring Provider: Iraj Dubois for my opinion and further evaluation of right neck mass, parotid lesion and base of tongue tumor. Today, pt reports 8-10 weeks ago started noticing right sided jaw pain/throat pain and then swelling in the right parotid. He then noticed right neck mass a few weeks ago. Associated right otalgia and soreness/irritation in the right throat. Associated with mild hoarseness. Denies fevers, chills, unintentionalweight loss, night sweats, otalgia, sore throat, oral bleeding, shortness of breath, hemoptysis or new lesions/masses. Denies history of radiation or previous of head/neck surgery other than prior tonsillectomy. Denies history of cardiac or pulmonary issues other than COPD. Able to walk/up downstairs without issues. Currently on Xarelto due to hx of PE. Denies any history cutaneous skin cancers Former smoker (1/2 -1 ppd x 52 yrs, quit in 2011 . Denies history of significant alcohol use. All other systems are negative except for that listed in the HPI. Past Medical/Surgical History: He has no past medical history on file. His has no past surgical history on file. Past Family/Social History: His family history is not on file. He reports that he has quit smoking. His smoking use included cigarettes. He has never used smokeless tobacco. Medications/Allergies/Immu nizations: His current medication(s) include: @CMEDLISTP@ Allergies: Sulfa antibiotics, Immunizations: Immunization History Administered Date(s) Administered COVID-19 Vaccine (12+ yrs, Moderna) mRNA, spike protein, LNP, pres. free, 50 mcg/0.5 mL dose (QIL=756) 01/24/2023, 01/21/2024 Influenza, injectable, high dose seasonal, trivalent, preservative free (MNE=842) 12/19/2016 Influenza, injectable, quadrivalent, preservative (TWN=119) 12/22/2020, 01/03/2023 Influenza, injectable, trivalent, preservative (KUP=655) 01/07/2024 Influenza, novel R1D7-07, injectable, preservative-free (AQZ=908) 02/03/2009 Moderna Monovalent (12+ yrs) COVID-19 vaccine, mRNA, spike protein, LNP, PF, 100 mcg/0.5 mL (JFO=386) 06/24/2020, 07/22/2020 Pneumococcal conjugate 20 valent (PCV20), polysaccharide [id number] conjugate, adjuvant, PF (BWS=646) 01/21/2024 Respiratory syncytial virus (RSV), vaccine, recombinant, protein subunit RSV prefusion F, adjuvant reconstituted, 0.5 mL, preservative free (QWA=262) 01/24/2023 Zoster Recombinant (RZV,Shingles) (JXI=056) 08/20/2019 PHYSICAL EXAM: Vital Signs: Pulse 82 Temp 98.5 ???F (36.9 ???C) (Temporal) Wt (!) 317 lb 14.4 oz (144.2 kg) SpO2 97% General: Well-developed, well-nourished. In no acute distress. Communication and Voice: Clear pitch and clarity Respiratory Respiratory effort: Equal inspiration and expiration without stridor Neuro: Appropriate mood and affect; Cranial nerves II-XII are intact Head and Face Inspection: Normocephalic and atraumatic without mass or lesion Palpation: Facial skeleton intact without bony stepoffs Facial Strength: Facial motility symmetric and full bilaterally Eyes: No nystagmus with normal extraocular motion bilaterally ENT External nose: No scar or anatomic deformity TMJ: No pain to palpation with full mobility Salivary Glands: No mass or tenderness Lips: No lesion. Oral cavity: Moist mucosa. No mass or lesion. Oropharynx: No mass or lesion. Tonsillar fossa symmetric. Base of tongue soft difficult to palpate due to gag reflex Larynx: Unable to fully visualize larynx on indirect mirror laryngoscopy due to gag reflex Neck Trachea: Midline trachea. Thyroid: No mass or nodularity. Lymphatics: Firm right tail parotid lesion versus intraparotid node/high level II lymphadenopathy. Firm, relatively immobile right level II/III neema conglomerate No overlying skin changes nontender to palpation Procedure: Procedure: Flexible fiberoptic nasopharyngolaryngoscopy Indications: Need for detailed exam, hyperactive gag reflex, inadequate mirror visualization Surgeon: Simon Packer MD was present for the entirety of the procedure Procedure: After informed discussion of the risks, benefits, and alternatives, fiberoptic nasopharyngolaryngsocopy was recommended for the above indications, and the patient consented without further questions. Next, a flexible scope was easily advanced into the naris. Nasal cavities were unremarkable. Nasopharynx including Eustachian tubes AND fossae of Rosenmuller was unremarkable. Oropharynx with prominent lingual tonsil tissue and hypertrophy with associated central ulceration near the mid (more content not included)... Normal [facility] Patient Instructionson 04-28 Inter Fold Roll Cutter Authentication Interface Message Text On the morning of your surgery, please take only the following medications, with a small sip of water: albuterol (PROVENTIL HFA) INHALATION HFA inhaler (VENTOLIN,PROAIR,PROVENTIL ) 90mcg citalopram (CeleXA) 20 MG tablet Hold valsartan and hydroCHLOROthiazide in the morning of you surgery Hold Xarelto 2 days prior procedure , last dose on 05/05 Do not take Ibuprofen, Aleve, Advil, Motrin or any other NSAIDS (celebrex, meloxicam, naproxen, diclofenac) 3 days before surgery. May take over the counter Acetaminophen (Tylenol) as needed for pain. Please hold all Vitamin E, [place] 3, fish oil and herbal supplements for 1 week prior to surgery. You will receive a call the day before surgery between 10 am and 3 pm notifying you what time to arrive for surgery. Eating and drinking before surgery: Adult Patients: No food or drink for 8 hours prior to surgery check in time. Plain water is allowed up to 2 hours prior to your surgery arrival time. A sip of water with approved morning medications is acceptable. Post-op Nausea and Vomiting: A risk of anesthesia is nausea and/or vomiting (PONV). Certain patients are at higher risk than others. Talk to your anesthesiologist about the plan to minimize this risk. In general, it is best to start with only ice chips or small sips of water, then progress to clear, non-alcoholic fluids. You do not have to eat if you do not feel like it; fluids are the most important in the first 24 hours after surgery. If you start to eat, try bananas, applesauce, plain toast, saltine crackers, or broth; avoid fried or fatty foods. Make sure to eat something about 15 minutes before taking any pain medications. Seek medical attention for any prolonged PONV and signs of dehydration. Patients whose assigned sex at was female, and are starting puberty or beyond, will be urine tested for per hospital policy. Please use this CHECKLIST to prepare for your surgery/procedure: ? Assume that any lab or testing done during your Pre-admission testing appointment is within normal limits unless otherwise contacted. ? Expect a call from [facility] one business day prior to surgery for surgery arrival time and location. ? Please plan to restart your medications the day after surgery unless otherwise explicitly instructed. ? Please contact your surgeon's/proceduralist's office for any surgical or recovery types of questions. ? CANCELLING YOUR SURGERY/PROCEDURE: If you get a cold, are not feeling well, or become , please call your surgeon's office as soon as possible. ? Refer to your Preparing for Your Surgery/Procedure booklet or [email or web address] if you have questions. Contact the Pre-Admission Testing department at [phone] or your surgeon's office with any questions that are not answered. ON THE DAY OF SURGERY: ? DO bring your ID, insurance card, medication list, and a small amount of izquierdo for filling prescriptions and any medical co-pays. ? Do NOT wear any jewelry, (including rings, earrings, or mouth, tongue, or body piercings). Metal jewelry could cause constriction, amputation, or roberts. Loose or bulky things in your mouth can be unsafe and result in breathing problems. ? DO bring glasses if you wear contacts and other assistance items such as oxygen, inhaler, cane, walker, etc. ? Do NOT bring valuables, credit cards, or large amounts of iz[place]. ? Do NOT wear lotion or strong-smelling fragrance (perfume, cologne, cream or lotion). ? ARRANGE FOR A RIDE: If you are scheduled to go home the same day of surgery, a responsible adult MUST drive or accompany you home in a car, cab, shared ride service, or Metro-van. You will not be allowed to drive yourself home or travel home alone. Your surgery may be cancelled if you do not have a ride. A responsible adult must stay with you after surgery. Please call [facility] if you need transportation assistance or have concerns about going home [phone]. ? SLEEP APNEA PATIENTS: Bring your sleep apnea machine and mask. ? PLEASE BE ON TIME. A late arrival may result in the cancellation/ delay of your surgery. Thank you for choosing [facility]; it is our pleasure to care for you Normal [facility] Progress Noteson 04-28-2024 Inter Fold Roll Cutter Authentication Interface Message Text Pt identified by name and Pharmacy updated Vital signs taken Pt in exam room ready for provider Normal [facility] Soft Tissue Neck WITH Contra ston 04-13-2024 Soft Tissue Neck WITH Contrast Normal [facility] L3300.0940on 01-11-2024 VIT D,25 HYDROX Normal [facility] Comment on above: Result Comment: TEST RESULTS LIMITSVitamin D, 25-Hydroxy 30.9 ng/mL 30.0-100.0Vitamin D deficiency has been defined by the Harris ofMedicine and an Endocrine Society practice guideline as alevel of serum 25-OH vitamin D less than 20 ng/mL (1,2).The Endocrine Society went on to further define vitamin Dinsufficiency as a level between 21 and 29 ng/mL (2).1. IOM (Harris of Medicine). 2010. Dietary reference intakes for calcium and D. [place]: The National Academies Press.2. Alissa MF, Jared [place], Jane ALEXANDRA, et al. Evaluation, treatment, and prevention of vitamin D deficiency: an Endocrine Society clinical practice guideline. JCEM. 2010; 96(7):1911-30. TESTING PERFORMED AT [facility]. ORIGINAL REPORT ON FILE IN LAB CONTAINS ADDITIONAL TEST SITE INFORMATION. Performed By: #### L 100.0100, L3300.0940, L501.9520, L500.4050 ####[facility] [address] [place], [address] CBC W/Diff, Automatedon 10-1 5-2023 Absolute Lymph 1.49 X10 3/uL Normal 0.83-4.51 [facility] Comment on above: Performed By: #### L 100.0100, L3300.0940, L501.9520, L500.4050 ####[facility] [address] [place], [address] Absolute Neut 6.5 X10 3/uL Normal 2.0-7.7 [facility] Comment on above: Performed By: #### L 100.0100, L3300.0940, L501.9520, L500.4050 ####[facility] [address] [place], [address] Basophils/100 WBC (Bld) 0.8 % Normal 0-1 [facility] Comment on above: Performed By: #### L 100.0100, L3300.0940, L501.9520, L500.4050 ####[facility] [address] [place], [address] Eosinophils/100 WBC (Bld) 1.6 % Normal 0-5 [facility] Comment on above: Performed By: #### L 100.0100, L3300.0940, [id number], L500.4050 ####[facility] [address] [place], [address] Erythrocyte distribution width (RBC) [Ratio] 14.2 % Normal 11.6-14.6 [facility] Comment on above: Performed By: #### L 100.0100, L3300.0940, L501.9520, L500.4050 ####[facility] [address] [place], [address] Hematocrit (Bld) [Volume fraction] 47.9 % Normal 40-54 [facility] Comment on above: Performed By: #### L 100.0100, L3300.0940, L501.9520, L500.4050 ####[facility] [address] [place], [address] Hemoglobin (Bld) [Mass/Vol] 14.9 g/dL Normal 13.0-16.5 [facility] Comment on above: Performed By: #### L 100.0100, L3300.0940, L501.9520, L500.4050 ####[facility] [address] [place], [address] IG% 1.200 High 0.0-0.9 [facility] Comment on above: Result Comment: IG% - Immature Granulocytes (promyelocytes, myelocytes andmetamyelocytes) > 1% indicates that a LEFT SHIFT is Present. Performed By: #### L 100.0100, L3300.0940, L501.9520, L500.4050 ####[facility] [address] [place], [address] Lymphocytes/100 WBC (Bld) 16.3 % Low 19-41 [facility] Comment on above: Performed By: #### L 100.0100, L3300.0940, [id number], L500.4050 ####[facility] [address] [place], [address] MCH (RBC) [Entitic mass] 28.9 pg Normal 27.0-32.0 [facility] Comment on above: Performed By: #### L 100.0100, L3300.0940, [id number], L500.4050 ####[facility] [address] [place], [address] MCHC (RBC) [Mass/Vol] 31.1 g/dL Low 32-36 [facility] Comment on above: Performed By: #### L 100.0100, L3300.0940, L501.9520, L500.4050 ####[facility] [address] [place], [address] MCV (RBC) [Entitic vol] 93.0 fL Normal 80-94 [facility] Comment on above: Performed By: #### L 100.0100, L3300.0940, [id number], L500.4050 ####[facility] [address] [place], [address] Monocytes/100 WBC (Bld) 9.2 % Normal 0-10 [facility] Comment on above: Performed By: #### L 100.0100, L3300.0940, [id number], L500.4050 ####[facility] [address] [place], [address] Neutrophils/100 WBC (Bld) 70.9 % High 47-70 [facility] Comment on above: Performed By: #### L 100.0100, L3300.0940, [id number], L500.4050 ####[facility] [address] [place], [address] Nucleated RBC (Bld) [#/Vol] 0 10*3/uL Normal 0-5 [facility] Comment on above: Performed By: #### L 100.0100, L3300.0940, L501.9520, L500.4050 ####[facility] [address] [place], [address] Platelet mean volume (Bld) [Entitic vol] 11.7 fL Normal 6.2-12.0 [facility] Comment on above: Performed By: #### L 100.0100, L3300.0940, [id number], L500.4050 ####[facility] [address] [place], [address] Platelets (Bld) [#/Vol] 168 10*3/uL Normal 150-450 [facility] Comment on above: Performed By: #### L 100.0100, L3300.0940, [id number], L500.4050 ####[facility] [address] [place], [address] RBC (Bld) [#/Vol] 5.15 10*6/uL Normal 4.6-6.2 [facility] Comment on above: Performed By: #### L 100.0100, L3300.0940, L501.9520, L500.4050 ####[facility] [address] [place], [address] RDW SD 48.8 fl High 35.1-43.9 [facility] Comment on above: Performed By: #### L 100.0100, L3300.0940, L501.9520, L500.4050 ####[facility] [address] [place], [address] WBC (Bld) [#/Vol] 9.2 10*3/uL Normal 4.4-11.0 [facility] Comment on above: Performed By: #### L 100.0100, L3300.0940, L501.9520, L500.4050 ####[facility] [address] [place], [address] [facility] 01-07-2024 Albumin [Mass/Vol] 3.5 g/dL Normal 3.2-5.0 [facility] Comment on above: Performed By: #### L 100.0100, L3300.0940, L501.9520, L500.4050 ####[facility] [address] [place], [address] Albumin/Globulin [Mass ratio] 0.8 {ratio} Low 0.9-2.4 [facility] Comment on above: Performed By: #### L 100.0100, L3300.0940, L501.9520, L500.4050 ####[facility] [address] [place], [address] ALK P 143 U/L High 45-117 [facility] Comment on above: Performed By: #### L 100.0100, L3300.0940, L501.9520, L500.4050 ####[facility] [address] [place], [address] ALT [Catalytic activity/Vol] 50 U/L Normal 16-61 [facility] Comment on above: Performed By: #### L 100.0100, L3300.0940, L501.9520, L500.4050 ####[facility] [address] [place], [address] AST [Catalytic activity/Vol] 32 U/L Normal 15-37 [facility] Comment on above: Performed By: #### L 100.0100, L3300.0940, L501.9520, L500.4050 ####[facility] [address] [place], [address] Bilirubin [Mass/Vol] 1.00 mg/dL Normal 0.20-1.00 [facility] Comment on above: Result Comment: For patients on eltrombopag therapy, use of Dimension [place] TBIL is not recommended. Performed By: #### L 100.0100, L3300.0940, L501.9520, L500.4050 ####[facility] [address] [place], [address] BUN/CRE 16.9 RATIO Normal 10-20 [facility] Comment on above: Performed By: #### L 100.0100, L3300.0940, L501.9520, L500.4050 ####[facility] [address] [place], [address] CA,Total 9.5 mg/dL Normal 8.5-10.1 [facility] Comment on above: Performed By: #### L 100.0100, L3300.0940, L501.9520, L500.4050 ####[facility] [address] [place], [address] Chloride [Moles/Vol] 106 mmol/L Normal 98-107 [facility] Comment on above: Performed By: #### L 100.0100, L3300.0940, L501.9520, L500.4050 ####[facility] [address] [place], [address] CO2 [Moles/Vol] 26.0 mmol/L Normal 21.0-32.0 [facility] Comment on above: Performed By: #### L 100.0100, L3300.0940, L501.9520, L500.4050 ####[facility] [address] [place], [address] Creatinine [Mass/Vol] 1.24 mg/dL Normal 0.70-1.30 [facility] Comment on above: Result Comment: The validity of the calculated GFR GFRAA in patients over70 years has not been determined. Clinical correlation isessential. Performed By: #### L 100.0100, L3300.0940, L501.9520, L500.4050 ####[facility] [address] [place], [address] EST GFR - AA 74 mL/min Normal >60 [facility] Comment on above: Result Comment: Afri can Citizen Of [place] GFR Calc Performed By: #### L 100.0100, L3300.0940, L501.9520, L500.4050 ####[facility] [address] [place], [address] GAP 5 Normal 5-15 [facility] Comment on above: Performed By: #### L 100.0100, L3300.0940, L501.9520, L500.4050 ####[facility] [address] [place], [address] GFR/1.73 sq M.predicted among non-blacks MDRD (S/P/Bld) [Vol rate/Area] 61 mL/min/{1.73_m2} Normal >60 [facility] Comment on above: Result Comment: Non- GFR Calc Performed By: #### L 100.0100, L3300.0940, L501.9520, L500.4050 ####[facility] [address] [place], [address] Globulin (S) [Mass/Vol] 4.3 g/dL High 2.2-4.2 [facility] Comment on above: Performed By: #### L 100.0100, L3300.0940, L501.9520, L500.4050 ####[facility] [address] [place], [address] Glucose [Mass/Vol] 239 mg/dL High 74-106 [facility] Comment on above: Result Comment: Gluc ose result greater than or equal to 200 mg/dLsuggests DIABETES MELLITUS per A.D.A. criteria. Performed By: #### L 100.0100, L3300.0940, L501.9520, L500.4050 ####[facility] [address] [place], [address] Potassium [Moles/Vol] 4.1 mmol/L Normal 3.5-5.1 [facility] Comment on above: Performed By: #### L 100.0100, L3300.0940, L501.9520, L500.4050 ####[facility] [address] [place], [address] Sodium [Moles/Vol] 137 mmol/L Normal 136-145 [facility] Comment on above: Performed By: #### L 100.0100, L3300.0940, L501.9520, L500.4050 ####[facility] [address] [place], [address] T PROT 7.8 g/dL Normal 6.4-8.2 [facility] Comment on above: Performed By: #### L 100.0100, L3300.0940, L501.9520, L500.4050 ####[facility] [address] [place], [address] Urea nitrogen [Mass/Vol] 21 mg/dL High 7-18 [facility] Comment on above: Performed By: #### L 100.0100, L3300.0940, L501.9520, L500.4050 ####[facility] [address] [place], [address] Thyroid Stim Hormone (TSH)on 01-07-2024 TSH 1.290 uIU/mL Normal 0.358-3.74 0 [facility] Comment on above: Performed By: #### L 100.0100, L3300.0940, L501.9520, L500.4050 ####[facility] [address] [place], [address] Absolute lymphocyte countOrd ered By: Bulmaro Curtis on 07-04-2023 Lymphocytes Auto (Unsp spec) [#/Vol] 2.86 10*3/uL 0.83-4.51 [facility] Automated lymphocyte count a s percentage of total leukocytesOrdered By: Bulmaro Curtis on 07-04-2023 Lymphocytes/100 WBC Auto (Unsp spec) 26.0 % 19-41 [facility] Basophil percentageOrdered B y: Bulmaro Curtis on 07-04-2023 Basophils/100 WBC (Bld) 1.0 % 0-1 [facility] Bilirubin [Mass/Vol] 1.20 mg/dL 0.20-1.00 [facility] Comment on above: For patients on eltr ombopag therapy, use of Dimension [place] TBIL is not recommended. Chloride [Moles/Vol] 103 mmol/L 98-107 [facility] Eosinophils/100 WBC (Bld) 2.1 % 0-5 [facility] Glucose [Mass/Vol] 221 mg/dL 74-106 [facility] Comment on above: Glucose result great er than or equal to 200 mg/dLsuggests DIABETES MELLITUS per A.D.A. criteria. Hemoglobin (Bld) [Mass/Vol] 14.6 g/dL 13.0-16.5 [facility] Monocytes/100 WBC (Bld) 11.1 % 0-10 [facility] Neutrophils (Bld) [#/Vol] 6.4 10*3/uL 2.0-7.7 [facility] Neutrophils/100 WBC (Bld) 58.5 % 47-70 [facility] Potassium [Moles/Vol] 3.9 mmol/L 3.5-5.1 [facility] Protein [Mass/Vol] 7.5 g/dL 6.4-8.2 [facility] Sodium [Moles/Vol] 138 mmol/L 136-145 [facility] WBC (Bld) [#/Vol] 11.0 10*3/uL 4.4-11.0 [facility] Determination of erythrocyte mean corpuscular volume (MCV)Ordered By: Bulmaro Curtis on 07-04-2023 MCV (RBC) [Entitic vol] 92.9 fL 80-94 [facility] Erythrocyte distribution wid th ratioOrdered By: Bulmaro Rosales07-04-2023 Erythrocyte distribution width (RBC) [Ratio] 14.1 % 11.6-14.6 [facility] Erythrocyte distribution wid th standard deviationOrdered By: Bulmaro Rosalesok on 07-04-2023 Erythrocyte distribution width (RBC) [Entitic vol] 48.2 fL 35.1-43.9 [facility] Hematocrit Auto (Bld) [Volum e fraction]Ordered By: Bulmaro Curtis 07-04-2023 Hematocrit (Bld) [Volume fraction] 47.4 % 40-54 [facility] Immature granulocytes/100 WB C Auto (Bld)Ordered By: Bulmaro Curtis on 07-04-2023 Immature granulocytes/100 WBC (Bld) 1.300 % 0.0-0.9 [facility] Comment on above: IG% - Immature Granu locytes (promyelocytes, myelocytes and metamyelocytes) > 1% indicates that a LEFT SHIFT is Present. Laboratory - Chemistry and C hemistry - challengeOrdered By: Bulmaro Curtis on 07-04-2023 Albumin/Globulin [Mass ratio] 0.9 {ratio} 0.9-2.4 [facility] ALP [Catalytic activity/Vol] 117 U/L 45-117 [facility] ALT [Catalytic activity/Vol] 42 U/L 16-61 [facility] CO2 [Moles/Vol] 26.0 mmol/L 21.0-32.0 [facility] Globulin (S) [Mass/Vol] 3.9 g/dL 2.2-4.2 [facility] Urea nitrogen/Creatinine [Mass ratio] 19.3 mg/mg 10-20 [facility] Laboratory - Hematology and Cell countsOrdered By: Bulmaro Curtis on 07-04-2023 MCH (RBC) [Entitic mass] 28.6 pg 27.0-32.0 [facility] MCHC (RBC) [Mass/Vol] 30.8 g/dL 32-36 [facility] Nucleated RBC/100 WBC (Bld) [Ratio] 0 % 0-5 [facility] Platelet mean volume (Bld) [Entitic vol] 11.8 fL 6.2-12.0 [facility] Platelets (Bld) [#/Vol] 170 10*3/uL 150-450 [facility] No Panel InformationOrdered By: Bulmaro Curtis on 07-04-2023 Estimated GFR (MDRD) Amer 77 mL/min >60 [facility] Comment on above: GFR Calc Estimated GFR (MDRD) Non-Af Amer 64 mL/min >60 [facility] Comment on above: Non- GFR Calc Vitamin D 25-Hydroxy 34.3 ng/mL [facility] Comment on above: Vitamin D 25(OH) Sta tus Range Deficiency <20 ng/mL (50nmol/L) Insufficiency 20 - 30 ng/mL (50 - 75 nmol/L) Sufficiency 30 - 100 ng/mL (75 - 250 nmol/L) Toxicity >100 ng/mL (>250 nmol/L) RBC Auto (Bld) [#/Vol]Ordere d By: Bulmaro Curtis on 07-04-2023 RBC (Bld) [#/Vol] 5.10 10*6/uL 4.6-6.2 [facility] Serum or plasma calcium blaine urement (mass/volume)Ordered By: Bulmaro Curtis on 07-04-2023 Calcium [Mass/Vol] 8.7 mg/dL 8.5-10.1 [facility] Serum or plasma creatinine m easurement (mass/volume)Ordered By: Bulmaro Curtis on 07-04-2023 Creatinine [Mass/Vol] 1.19 mg/dL 0.70-1.30 [facility] Comment on above: The validity of the calculated GFR & GFRAA in patients over 70 years has not been determined. Clinical correlation is essential. Serum or plasma thyroid stim ulating hormone (TSH) measurement (units/volume)Ordered By: Bulmaro Curtis on 07-04-2023 TSH Qn 1.98 uIU/mL 0.358-3.74 [facility] Serum or plasma urea nitroge n measurement (mass/volume)Ordered By: Bulmaro Curtis on 07-04-2023 Urea nitrogen [Mass/Vol] 23 mg/dL 7-18 [facility] Thin prep Papanicolaou smear with manual screeningOrdered By: Bulmaro Curtis on 07-04-2023 Thin prep Papanicolaou smear with manual screening 3.6 g/dL 3.2-5.0 [facility] Thin prep Papanicolaou smear with manual screening 22 U/L 15-37 [facility] Thin prep Papanicolaou smear with manual screening 9 5-15 [facility] Absolute lymphocyte countOrd ered By: Bulmaro Curtis on 01-03-2023 Lymphocytes Auto (Unsp spec) [#/Vol] 2.76 10*3/uL 0.83-4.51 [facility] Basophil percentageOrdered B y: Bulmaro Curtis on 01-03-2023 Basophils/100 WBC (Bld) 0.7 % 0-1 [facility] Bilirubin [Mass/Vol] 1.80 mg/dL 0.20-1.00 [facility] Comment on above: For patients on eltr ombopag therapy, use of Dimension [place] TBIL is not recommended. Chloride [Moles/Vol] 103 mmol/L 98-107 [facility] Eosinophils/100 WBC (Bld) 2.1 % 0-5 [facility] Glucose [Mass/Vol] 158 mg/dL 74-106 [facility] Comment on above: Fasting Glucose resu lt greater than or equal to 126 mg/dL suggests DIABETES MELLITUS per A.D.A. criteria. Neutrophils (Bld) [#/Vol] 6.3 10*3/uL 2.0-7.7 [facility] Neutrophils/100 WBC (Bld) 59.1 % 47-70 [facility] Potassium [Moles/Vol] 3.9 mmol/L 3.5-5.1 [facility] Protein [Mass/Vol] 8.2 g/dL 6.4-8.2 [facility] Sodium [Moles/Vol] 137 mmol/L 136-145 [facility] WBC (Bld) [#/Vol] 10.8 10*3/uL 4.4-11.0 [facility] Blood erythrocytes count (nu mber/volume)Ordered By: Bulmaro Curtis on 01-03-2023 RBC (Bld) [#/Vol] 5.32 10*6/uL 4.6-6.2 [facility] Blood hemoglobin measurement (mass/volume)Ordered By: Bulmaro Curtis on 01-03-2023 Hemoglobin (Bld) [Mass/Vol] 15.5 g/dL 13.0-16.5 [facility] Blood lymphocytes/100 leukoc ytesOrdered By: Bulmaro Curtis on 01-03-2023 Lymphocytes/100 WBC (Bld) 25.7 % 19-41 [facility] Blood monocytes/100 leukocyt esOrdered By: Bulmaro Curtis on 01-03-2023 Monocytes/100 WBC (Bld) 11.3 % 0-10 [facility] Blood platelet mean volumeOr dered By: Bulmaro Curtis on 01-03-2023 Platelet mean volume (Bld) [Entitic vol] 12.2 fL 6.2-12.0 [facility] Determination of erythrocyte mean corpuscular volume (MCV)Ordered By: Bulmaro Curtis on 01-03-2023 MCV (RBC) [Entitic vol] 91.2 fL 80-94 [facility] Hematocrit Auto (Bld) [Volum e fraction][facility] Hematocrit (Bld) [Volume fraction] 48.5 % 40-54 [facility] Laboratory - Chemistry and C hemistry - challengeOrdered By: [facility] 01-03-[facility]23 ALP [Catalytic activity/Vol] 117 U/L 45-117 [facility] ALT [Catalytic activity/Vol] 50 U/L 16-61 [facility] CO2 [Moles/Vol] 25.0 mmol/L 21.0-32.0 [facility] Globulin (S) [Mass/Vol] 4.4 g/dL 2.2-4.2 [facility] Urea nitrogen/Creatinine [Mass ratio] 16.5 mg/mg 10-20 [facility] Laboratory - Hematology and Cell countsOrdered By: [facility] 01-03-2023 Erythrocyte distribution width (RBC) [Entitic vol] 47.6 fL 35.1-43.9 [facility] Erythrocyte distribution width (RBC) [Ratio] 14.3 % 11.6-14.6 [facility] Immature granulocytes/100 WBC (Bld) 1.100 % 0.0-0.9 [facility] Comment on above: IG% - Immature Granu locytes (promyelocytes, myelocytes and metamyelocytes) > 1% indicates that a LEFT SHIFT is Present. MCH (RBC) [Entitic mass] 29.1 pg 27.0-32.0 [facility] Nucleated RBC/100 WBC (Bld) [Ratio] 0 % 0-5 [facility] MCHC Auto (RBC) [Mass/Vol]Or dered By: [facility] Ever on 01-03-2023 MCHC (RBC) [Mass/Vol] 32.0 g/dL 32-36 [facility] No Panel InformationOrdered By: Bulmaro Curtis on 01-03-2023 Estimated GFR (MDRD) Amer 72 mL/min >60 [facility] Comment on above: GFR Calc Estimated GFR (MDRD) Non-Af Amer 59 mL/min >60 [facility] Comment on above: Non- GFR Calc Thyroid Stimulating Hormone (TSH) 2.17 uIU/mL 0.358-3.74 [facility] Vitamin D 25-Hydroxy 40.6 ng/mL [facility] Comment on above: Vitamin D 25([place]) Sta tus Range Deficiency <20 ng/mL (50nmol/L) Insufficiency 20 - 30 ng/mL (50 - 75 nmol/L) Sufficiency 30 - 100 ng/mL (75 - 250 nmol/L) Toxicity >100 ng/mL (>250 nmol/L) Platelets bldOrdered By: Bulmaro Curtis on 01-03-2023 Platelets (Bld) [#/Vol] 185 10*3/uL 150-450 [facility] Serum or plasma albumin blaine urement (mass/volume)Ordered By: Bulmaro Curtis on 01-03-2023 Albumin [Mass/Vol] 3.8 g/dL 3.2-5.0 [facility] Serum or plasma albumin/glob ulin mass ratioOrdered By: Bulmaro Curtis 01-03-2023 Albumin/Globulin [Mass ratio] 0.9 {ratio} 0.9-2.4 [facility] Serum or plasma calcium blaine urement (mass/volume)Ordered By: Bulmaro Curtis 01-03-2023 Calcium [Mass/Vol] 9.4 mg/dL 8.5-10.1 [facility] Serum or plasma creatinine m easurement (mass/volume)Ordered By: Bulmaro Curtis 01-03-2023 Creatinine [Mass/Vol] 1.27 mg/dL 0.70-1.30 [facility] Comment on above: The validity of the calculated GFR & GFRAA in patients over 70 years has not been determined. Clinical correlation is essential. Serum or plasma urea nitroge n measurement (mass/volume)Ordered By: Bulmaro Curtis on 01-03-2023 Urea nitrogen [Mass/Vol] 21 mg/dL 7-18 [facility] Thin prep Papanicolaou smear with manual screeningOrdered By: Bulmaro Curtis 01-03-2023 Thin prep Papanicolaou smear with manual screening 21 U/L 15-37 [facility] Thin prep Papanicolaou smear with manual screening 9 5-15 [facility] Whole blood hemoglobin A1c/t otal hemoglobin ratio (mass fraction)Ordered By: Bulmaro Curtis on 01-03-2023 HbA1c (Bld) [Mass fraction] 6.8 % 3.8-5.6 [facility] Comment on above: Normal < 5.7 % Predi abetic 5.7 - 6.4 % Diabetic >or= 6.5 % Please note range changes. Absolute lymphocyte countOrd ered By: Kaamri Bah on 12-17-2022 Lymphocytes Auto (Unsp spec) [#/Vol] 1.60 10*3/uL 0.83-4.51 [facility] Basophil percentageOrdered B y: Kamari Bah on 12-17-2022 Basophils/100 WBC (Bld) 0.8 % 0-1 [facility] Eosinophils/100 WBC (Bld) 2.4 % 0-5 [facility] Neutrophils (Bld) [#/Vol] 5.2 10*3/uL 2.0-7.7 [facility] Neutrophils/100 WBC (Bld) 65.4 % 47-70 [facility] WBC (Bld) [#/Vol] 7.9 10*3/uL 4.4-11.0 [facility] Bilirubin [Mass/Vol] 1.60 mg/dL 0.20-1.00 [facility] Comment on above: For patients on eltr ombopag therapy, use of Dimension [place] TBIL is not recommended. Chloride [Moles/Vol] 111 mmol/L 98-107 [facility] Glucose [Mass/Vol] 137 mg/dL 74-106 [facility] Comment on above: Fasting Glucose resu lt greater than or equal to 126 mg/dL suggests DIABETES MELLITUS per A.D.A. criteria. Potassium [Moles/Vol] 4.6 mmol/L 3.5-5.1 [facility] Protein [Mass/Vol] 7.5 g/dL 6.4-8.2 [facility] Sodium [Moles/Vol] 139 mmol/L 136-145 [facility] Blood erythrocytes count (nu mber/volume)Ordered By: Kamari Bah on 12-17-2022 RBC (Bld) [#/Vol] 4.62 10*6/uL 4.6-6.2 [facility] Blood hemoglobin measurement (mass/volume)Ordered By: Kamari Bah on 12-17-2022 Hemoglobin (Bld) [Mass/Vol] 13.6 g/dL 13.0-16.5 [facility] Blood lymphocytes/100 leukoc ytesOrdered By: Kamari Bah on 12-17-2022 Lymphocytes/100 WBC (Bld) 20.2 % 19-41 [facility] Blood monocytes/100 leukocyt esOrdered By: Kamari Bah on 12-17-2022 Monocytes/100 WBC (Bld) 10.4 % 0-10 [facility] Blood platelet mean volumeOr dered By: Kamari Bah on 12-17-2022 Platelet mean volume (Bld) [Entitic vol] 11.7 fL 6.2-12.0 [facility] Determination of erythrocyte mean corpuscular volume (MCV)Ordered By: Kamari Bah on 12-17-2022 MCV (RBC) [Entitic vol] 94.4 fL 80-94 [facility] Hematocrit Auto (Bld) [Volum e fraction]Ordered By: Kamari Bah on 12-17-2022 Hematocrit (Bld) [Volume fraction] 43.6 % 40-54 [facility] Laboratory - Chemistry and C hemistry - challengeOrdered By: Kamari Bah on 12-17-2022 ALP [Catalytic activity/Vol] 99 U/L 45-117 [facility] ALT [Catalytic activity/Vol] 34 U/L 16-61 [facility] CO2 [Moles/Vol] 22.0 mmol/L 21.0-32.0 [facility] Globulin (S) [Mass/Vol] 4.0 g/dL 2.2-4.2 [facility] Urea nitrogen/Creatinine [Mass ratio] 13.1 mg/mg 10-20 [facility] Laboratory - Hematology and Cell countsOrdered By: Kamari Bah on 12-17-2022 Erythrocyte distribution width (RBC) [Entitic vol] 47.9 fL 35.1-43.9 [facility] Erythrocyte distribution width (RBC) [Ratio] 13.9 % 11.6-14.6 [facility] Immature granulocytes/100 WBC (Bld) 0.800 % 0.0-0.9 [facility] Comment on above: IG% - Immature Granu locytes (promyelocytes, myelocytes and metamyelocytes) > 1% indicates that a LEFT SHIFT is Present. MCH (RBC) [Entitic mass] 29.4 pg 27.0-32.0 [facility] Nucleated RBC/100 WBC (Bld) [Ratio] 0 % 0-5 [facility] MCHC Auto (RBC) [Mass/Vol]Or dered By: Kamari Bah on 12-17-2022 MCHC (RBC) [Mass/Vol] 31.2 g/dL 32-36 [facility] No Panel InformationOrdered By: Kamari Bah on 12-17-2022 Estimated Creatinine Clearance Calc 79.57 ml/min [facility] Estimated GFR (MDRD) Amer 95 mL/min >60 [facility] Comment on above: GFR Calc Estimated GFR (MDRD) Non-Af Amer 79 mL/min >60 [facility] Comment on above: Non- GFR Calc Platelets bldOrdered By: Roseann Bah on 12-17-2022 Platelets (Bld) [#/Vol] 127 10*3/uL 150-450 [facility] Serum or plasma albumin blaine urement (mass/volume)Ordered By: Kamari Bah on 12-17-2022 Albumin [Mass/Vol] 3.5 g/dL 3.2-5.0 [facility] Serum or plasma albumin/glob ulin mass ratioOrdered By: Kamari Bah on 12-17-2022 Albumin/Globulin [Mass ratio] 0.9 {ratio} 0.9-2.4 [facility] Serum or plasma calcium blaine urement (mass/volume)Ordered By: Kamari Bah on 12-17-2022 Calcium [Mass/Vol] 8.8 mg/dL 8.5-10.1 [facility] Serum or plasma creatinine m easurement (mass/volume)Ordered By: Kamari Bah on 12-17-2022 Creatinine [Mass/Vol] 0.99 mg/dL 0.70-1.30 [facility] Comment on above: The validity of the calculated GFR & GFRAA in patients over 70 years has not been determined. Clinical correlation is essential. Serum or plasma urea nitroge n measurement (mass/volume)Ordered By: Kamari Bah on 12-17-2022 Urea nitrogen [Mass/Vol] 13 mg/dL 7-18 [facility] Thin prep Papanicolaou smear with manual screeningOrdered By: Kamari Bah on 12-17-2022 Thin prep Papanicolaou smear with manual screening 32 U/L 15-37 [facility] Thin prep Papanicolaou smear with manual screening 6 5-15 [facility] Absolute lymphocyte countOrd ered By: Dr. Curtis on 06-28-2022 Lymphocytes Auto (Unsp spec) [#/Vol] 1.40 10*3/uL 0.83-4.51 [facility] Basophil percentageOrdered B y: Dr. Curtis on 06-28-2022 Basophils/100 WBC (Bld) 0.8 % 0-1 [facility] Bilirubin [Mass/Vol] 1.20 mg/dL 0.20-1.00 [facility] Comment on above: For patients on eltr ombopag therapy, use of Dim[place] TBIL is not recommended. Chloride [Moles/Vol] 106 mmol/L 98-107 [facility] Eosinophils/100 WBC (Bld) 1.8 % 0-5 [facility] Glucose [Mass/Vol] 146 mg/dL 74-106 [facility] Comment on above: Fasting Glucose resu lt greater than or equal to 126 mg/dL suggests DIABETES MELLITUS per A.D.A. criteria. Neutrophils (Bld) [#/Vol] 5.5 10*3/uL 2.0-7.7 [facility] Neutrophils/100 WBC (Bld) 69.8 % 47-70 [facility] Potassium [Moles/Vol] 4.0 mmol/L 3.5-5.1 [facility] Protein [Mass/Vol] 7.5 g/dL 6.4-8.2 [facility] Sodium [Moles/Vol] 138 mmol/L 136-145 [facility] WBC (Bld) [#/Vol] 7.8 10*3/uL 4.4-11.0 [facility] Blood erythrocytes count (nu mber/volume)Ordered By: Dr. Curtis on 06-28-2022 RBC (Bld) [#/Vol] 5.00 10*6/uL 4.6-6.2 [facility] Blood hemoglobin measurement (mass/volume)Ordered By: Dr. Curtis on 06-28-2022 Hemoglobin (Bld) [Mass/Vol] 14.5 g/dL 13.0-16.5 [facility] Blood lymphocytes/100 leukoc ytesOrdered By: Dr. Curtis on 06-28-2022 Lymphocytes/100 WBC (Bld) 17.9 % 19-41 [facility] Blood monocytes/100 leukocyt esOrdered By: Dr. Curtis on 06-28-2022 Monocytes/100 WBC (Bld) 9.1 % 0-10 [facility] Blood platelet mean volumeOr dered By: Dr. Curtis on 06-28-2022 Platelet mean volume (Bld) [Entitic vol] 11.6 fL 6.2-12.0 [facility] Determination of erythrocyte mean corpuscular volume (MCV)Ordered By: Dr. Curtis on 06-28-2022 MCV (RBC) [Entitic vol] 90.8 fL 80-94 [facility] Hematocrit Auto (Bld) [Volum e fraction]Ordered By: Dr. Curtis on 06-28-2022 Hematocrit (Bld) [Volume fraction] 45.4 % 40-54 [facility] Laboratory - Chemistry and C hemistry - challengeOrdered By: Dr. Curtis on 06-28-2022 ALP [Catalytic activity/Vol] 93 U/L 45-117 [facility] ALT [Catalytic activity/Vol] 41 U/L 16-61 [facility] CO2 [Moles/Vol] 27.0 mmol/L 21.0-32.0 [facility] Globulin (S) [Mass/Vol] 3.9 g/dL 2.2-4.2 [facility] Urea nitrogen/Creatinine [Mass ratio] 15.7 mg/mg 10-20 [facility] Laboratory - Hematology and Cell countsOrdered By: Dr. Curtis on 06-28-2022 Erythrocyte distribution width (RBC) [Entitic vol] 46.7 fL 35.1-43.9 [facility] Erythrocyte distribution width (RBC) [Ratio] 14.0 % 11.6-14.6 [facility] Immature granulocytes/100 WBC (Bld) 0.600 % 0.0-0.9 [facility] Comment on above: IG% - Immature Granu locytes (promyelocytes, myelocytes and metamyelocytes) > 1% indicates that a LEFT SHIFT is Present. MCH (RBC) [Entitic mass] 29.0 pg 27.0-32.0 [facility] Nucleated RBC/100 WBC (Bld) [Ratio] 0 % 0-5 [facility] MCHC Auto (RBC) [Mass/Vol]Or dered By: Dr. Curtis on 06-28-2022 MCHC (RBC) [Mass/Vol] 31.9 g/dL 32-36 [facility] No Panel InformationOrdered By: Dr. Curtis on 06-28-2022 Estimated GFR (MDRD) Amer 93 mL/min >60 [facility] Comment on above: GFR Calc Estimated GFR (MDRD) Non-Af Amer 77 mL/min >60 [facility] Comment on above: Non- GFR Calc Thyroid Stimulating Hormone (TSH) 0.73 uIU/mL 0.358-3.74 [facility] Vitamin D 25-Hydroxy 42.9 ng/mL [facility] Comment on above: Vitamin D 25(OH) Sta tus Range Deficiency <20 ng/mL (50nmol/L) Insufficiency 20 - 30 ng/mL (50 - 75 nmol/L) Sufficiency 30 - 100 ng/mL (75 - 250 nmol/L) Toxicity >100 ng/mL (>250 nmol/L) Platelets bldOrdered By: Dr. Curtis on 06-28-2022 Platelets (Bld) [#/Vol] 176 10*3/uL 150-450 [facility] Serum or plasma albumin blaine urement (mass/volume)Ordered By: Dr. Curtis on 06-28-2022 Albumin [Mass/Vol] 3.6 g/dL 3.2-5.0 [facility] Serum or plasma albumin/glob ulin mass ratioOrdered By: Dr. Curtis on 06-28-2022 Albumin/Globulin [Mass ratio] 0.9 {ratio} 0.9-2.4 [facility] Serum or plasma calcium blaine urement (mass/volume)Ordered By: Dr. Curtis on 06-28-2022 Calcium [Mass/Vol] 9.3 mg/dL 8.5-10.1 [facility] Serum or plasma creatinine m easurement (mass/volume)Ordered By: Dr. Curtis on 06-28-2022 Creatinine [Mass/Vol] 1.02 mg/dL 0.70-1.30 [facility] Comment on above: The validity of the calculated GFR & GFRAA in patients over 70 years has not been determined. Clinical correlation is essential. Serum or plasma urea nitroge n measurement (mass/volume)Ordered By: Dr. Curtis on 06-28-2022 Urea nitrogen [Mass/Vol] 16 mg/dL 7-18 [facility] Thin prep Papanicolaou smear with manual screeningOrdered By: Dr. Curtis on 06-28-2022 Thin prep Papanicolaou smear with manual screening 23 U/L 15-37 [facility] Thin prep Papanicolaou smear with manual screening 5 5-15 [facility] INR in Blood by Coagulation assayOrdered By: Dr. Carolina on 05-15-2022 INR Coag (Bld) [Relative time] 1.0 {INR} [facility] Laboratory - CoagulationOrde red By: Dr. Carolina on 05-15-2022 aPTT Coag (Bld) [Time] 27.6 s 24.1-36.2 [facility] PT Coag (PPP) [Time] 13.2 s 11.7-14.9 [facility] Platelets bldOrdered By: Dr. Carolina on 05-15-2022 Platelets (Bld) [#/Vol] 184 10*3/uL 150-450 [facility] Absolute lymphocyte countOrd ered By: Dr. Curtis on 03-29-2022 Lymphocytes Auto (Unsp spec) [#/Vol] 3.00 10*3/uL 0.83-4.51 [facility] Basophil percentageOrdered B y: Dr. Curtis on 03-29-2022 Basophils/100 WBC (Bld) 0.7 % 0-1 [facility] Bilirubin [Mass/Vol] 1.00 mg/dL 0.20-1.00 [facility] Comment on above: For patients on eltr ombopag therapy, use of Dim[place] TBIL is not recommended. Chloride [Moles/Vol] 110 mmol/L 98-107 [facility] Eosinophils/100 WBC (Bld) 2.2 % 0-5 [facility] Glucose [Mass/Vol] 147 mg/dL 74-106 [facility] Comment on above: Fasting Glucose resu lt greater than or equal to 126 mg/dL suggests DIABETES MELLITUS per A.D.A. criteria. Neutrophils (Bld) [#/Vol] 6.5 10*3/uL 2.0-7.7 [facility] Neutrophils/100 WBC (Bld) 57.3 % 47-70 [facility] Potassium [Moles/Vol] 4.2 mmol/L 3.5-5.1 [facility] Protein [Mass/Vol] 7.7 g/dL 6.4-8.2 [facility] Sodium [Moles/Vol] 143 mmol/L 136-145 [facility] WBC (Bld) [#/Vol] 11.3 10*3/uL 4.4-11.0 [facility] Blood erythrocytes count (nu mber/volume)Ordered By: Dr. Curtis on 03-29-2022 RBC (Bld) [#/Vol] 5.16 10*6/uL 4.6-6.2 [facility] Blood hemoglobin measurement (mass/volume)Ordered By: Dr. Curtis on 03-29-2022 Hemoglobin (Bld) [Mass/Vol] 15.2 g/dL 13.0-16.5 [facility] Blood lymphocytes/100 leukoc ytesOrdered By: Dr. Curtis on 03-29-2022 Lymphocytes/100 WBC (Bld) 26.7 % 19-41 [facility] Blood monocytes/100 leukocyt esOrdered By: Dr. Curtis on 03-29-2022 Monocytes/100 WBC (Bld) 12.2 % 0-10 [facility] Blood platelet mean volumeOr dered By: Dr. Curtis on 03-29-2022 Platelet mean volume (Bld) [Entitic vol] 12.3 fL 6.2-12.0 [facility] Determination of erythrocyte mean corpuscular volume (MCV)Ordered By: Dr. Curtis on 03-29-2022 MCV (RBC) [Entitic vol] 92.1 fL 80-94 [facility] Hematocrit Auto (Bld) [Volum e fraction]Ordered By: Dr. Curtis on 03-29-2022 Hematocrit (Bld) [Volume fraction] 47.5 % 40-54 [facility] Laboratory - Chemistry and C hemistry - challengeOrdered By: Dr. Curtis on 03-29-2022 ALP [Catalytic activity/Vol] 114 U/L 45-117 [facility] ALT [Catalytic activity/Vol] 49 U/L 16-61 [facility] CO2 [Moles/Vol] 27.0 mmol/L 21.0-32.0 [facility] Globulin (S) [Mass/Vol] 4.0 g/dL 2.2-4.2 [facility] Urea nitrogen/Creatinine [Mass ratio] 19.0 mg/mg 10-20 [facility] Laboratory - Hematology and Cell countsOrdered By: Dr. Curtis on 03-29-2022 Erythrocyte distribution width (RBC) [Entitic vol] 47.8 fL 35.1-43.9 [facility] Erythrocyte distribution width (RBC) [Ratio] 14.1 % 11.6-14.6 [facility] Immature granulocytes/100 WBC (Bld) 0.900 % 0.0-0.9 [facility] Comment on above: IG% - Immature Granu locytes (promyelocytes, myelocytes and metamyelocytes) > 1% indicates that a LEFT SHIFT is Present. MCH (RBC) [Entitic mass] 29.5 pg 27.0-32.0 [facility] Nucleated RBC/100 WBC (Bld) [Ratio] 0 % 0-5 [facility] MCHC Auto (RBC) [Mass/Vol]Or dered By: Dr. Curtis on 03-29-2022 MCHC (RBC) [Mass/Vol] 32.0 g/dL 32-36 [facility] No Panel InformationOrdered By: Dr. Curtis on 03-29-2022 Estimated GFR (MDRD) Amer 66 mL/min >60 [facility] Comment on above: GFR Calc Estimated GFR (MDRD) Non-Af Amer 55 mL/min >60 [facility] Comment on above: Non- GFR Calc Thyroid Stimulating Hormone (TSH) 1.27 uIU/mL 0.358-3.74 [facility] Vitamin D 25-Hydroxy 41.3 ng/mL [facility] Comment on above: Vitamin D 25(OH) Sta tus Range Deficiency <20 ng/mL (50nmol/L) Insufficiency 20 - 30 ng/mL (50 - 75 nmol/L) Sufficiency 30 - 100 ng/mL (75 - 250 nmol/L) Toxicity >100 ng/mL (>250 nmol/L) Platelets bldOrdered By: Dr. Curtis on 03-29-2022 Platelets (Bld) [#/Vol] 178 10*3/uL 150-450 [facility] Serum or plasma albumin blaine urement (mass/volume)Ordered By: Dr. Curtis on 03-29-2022 Albumin [Mass/Vol] 3.7 g/dL 3.2-5.0 [facility] Serum or plasma albumin/glob ulin mass ratioOrdered By: Dr. Curtis on 03-29-2022 Albumin/Globulin [Mass ratio] 0.9 {ratio} 0.9-2.4 [facility] Serum or plasma calcium blaine urement (mass/volume)Ordered By: Dr. Curtis on 03-29-2022 Calcium [Mass/Vol] 9.4 mg/dL 8.5-10.1 [facility] Serum or plasma creatinine m easurement (mass/volume)Ordered By: Dr. Curtis on 03-29-2022 Creatinine [Mass/Vol] 1.37 mg/dL 0.70-1.30 [facility] Comment on above: The validity of the calculated GFR & GFRAA in patients over 70 years has not been determined. Clinical correlation is essential. Serum or plasma urea nitroge n measurement (mass/volume)Ordered By: Dr. Curtis on 03-29-2022 Urea nitrogen [Mass/Vol] 26 mg/dL 7-18 [facility] Thin prep Papanicolaou smear with manual screeningOrdered By: Dr. Curtis on 03-29-2022 Thin prep Papanicolaou smear with manual screening 27 U/L 15-37 [facility] Thin prep Papanicolaou smear with manual screening 6 5-15 [facility] Absolute lymphocyte countOrd ered By: Dr. Curtis on 12-28-2021 Lymphocytes Auto (Unsp spec) [#/Vol] 2.73 10*3/uL 0.83-4.51 [facility] Basophil percentageOrdered B y: Dr. Curtis on 12-28-2021 Basophils/100 WBC (Bld) 0.7 % 0-1 [facility] Bilirubin [Mass/Vol] 0.80 mg/dL 0.20-1.00 [facility] Comment on above: For patients on eltr ombopag therapy, use of Dimension [place] TBIL is not recommended. Chloride [Moles/Vol] 106 mmol/L 98-107 [facility] Eosinophils/100 WBC (Bld) 2.4 % 0-5 [facility] Glucose [Mass/Vol] 178 mg/dL 74-106 [facility] Comment on above: Fasting Glucose resu lt greater than or equal to 126 mg/dL suggests DIABETES MELLITUS per A.D.A. criteria. Neutrophils (Bld) [#/Vol] 7.3 10*3/uL 2.0-7.7 [facility] Neutrophils/100 WBC (Bld) 61.4 % 47-70 [facility] Potassium [Moles/Vol] 4.1 mmol/L 3.5-5.1 [facility] Protein [Mass/Vol] 7.9 g/dL 6.4-8.2 [facility] Sodium [Moles/Vol] 141 mmol/L 136-145 [facility] Testosterone [Mass/Vol] 89.91 ng/dL [facility] Comment on above: CENTRAL 90% REFERENC E RANGES MALE AGE <50 197.44 - 669.58 ng/dL MALE AGE > or = 50 187.72 - 684.19 ng/dL FEMALE AGE <50 8.38 - 35.01 ng/dL FEMALE AGE > or = 50 <7.00 - 35.92 ng/dL Effective as of 10/18/20 WBC (Bld) [#/Vol] 11.9 10*3/uL 4.4-11.0 [facility] Blood erythrocytes count (nu mber/volume)Ordered By: Dr. Curtis on 12-28-2021 RBC (Bld) [#/Vol] 5.13 10*6/uL 4.6-6.2 [facility] Blood hemoglobin measurement (mass/volume)Ordered By: Dr. Curtis on 12-28-2021 Hemoglobin (Bld) [Mass/Vol] 15.0 g/dL 13.0-16.5 [facility] Blood lymphocytes/100 leukoc ytesOrdered By: Dr. Curtis on 12-28-2021 Lymphocytes/100 WBC (Bld) 23.0 % 19-41 [facility] Blood monocytes/100 leukocyt esOrdered By: Dr. Curtis on 12-28-2021 Monocytes/100 WBC (Bld) 11.5 % 0-10 [facility] Blood platelet mean volumeOr dered By: Dr. Curtis on 12-28-2021 Platelet mean volume (Bld) [Entitic vol] 12.9 fL 6.2-12.0 [facility] Determination of erythrocyte mean corpuscular volume (MCV)Ordered By: Dr. Curtis on 12-28-2021 MCV (RBC) [Entitic vol] 90.8 fL 80-94 [facility] Hematocrit Auto (Bld) [Volum e fraction]Ordered By: Dr. Curtis on 12-28-2021 Hematocrit (Bld) [Volume fraction] 46.6 % 40-54 [facility] Laboratory - Chemistry and C hemistry - challengeOrdered By: Dr. Curtis on 12-28-2021 ALP [Catalytic activity/Vol] 149 U/L 45-117 [facility] ALT [Catalytic activity/Vol] 53 U/L 16-61 [facility] CO2 [Moles/Vol] 26.0 mmol/L 21.0-32.0 [facility] Globulin (S) [Mass/Vol] 4.2 g/dL 2.2-4.2 [facility] Urea nitrogen/Creatinine [Mass ratio] 21.6 mg/mg 10-20 [facility] Laboratory - Hematology and Cell countsOrdered By: Dr. Curtis on 12-28-2021 Erythrocyte distribution width (RBC) [Entitic vol] 47.9 fL 35.1-43.9 [facility] Erythrocyte distribution width (RBC) [Ratio] 14.4 % 11.6-14.6 [facility] Immature granulocytes/100 WBC (Bld) 1.000 % 0.0-0.9 [facility] Comment on above: IG% - Immature Granu locytes (promyelocytes, myelocytes and metamyelocytes) > 1% indicates that a LEFT SHIFT is Present. MCH (RBC) [Entitic mass] 29.2 pg 27.0-32.0 [facility] Nucleated RBC/100 WBC (Bld) [Ratio] 0 % 0-5 [facility] MCHC Auto (RBC) [Mass/Vol]Or dered By: Dr. Curtis on 12-28-2021 MCHC (RBC) [Mass/Vol] 32.2 g/dL 32-36 [facility] No Panel InformationOrdered By: Dr. Curtis on 12-28-2021 Estimated GFR (MDRD) Amer 68 mL/min >60 [facility] Comment on above: GFR Calc Estimated GFR (MDRD) Non-Af Amer 56 mL/min >60 [facility] Comment on above: Non- GFR Calc Prostate Specific Antigen Screen 0.34 ng/mL 0.00-4.00 [facility] Comment on above: This test was perfor med using the TPSA assay method for theInstapagar chemistry system. Values obtained with differentassay methods cannot be used interchangably.When changing PSA assays in the course of monitoring apatient, additional sequential testing should be carriedout to confirm baseline values. Thyroid Stimulating Hormone (TSH) 1.57 uIU/mL 0.358-3.74 [facility] Vitamin D 25-Hydroxy 43.2 ng/mL [facility] Comment on above: Vitamin D 25(OH) Sta tus Range Deficiency <20 ng/mL (50nmol/L) Insufficiency 20 - 30 ng/mL (50 - 75 nmol/L) Sufficiency 30 - 100 ng/mL (75 - 250 nmol/L) Toxicity >100 ng/mL (>250 nmol/L) Platelets bldOrdered By: Dr. Curtis on 12-28-2021 Platelets (Bld) [#/Vol] 185 10*3/uL 150-450 [facility] Serum or plasma albumin blaine urement (mass/volume)Ordered By: Dr. Curtis on 12-28-2021 Albumin [Mass/Vol] 3.7 g/dL 3.2-5.0 [facility] Serum or plasma albumin/glob ulin mass ratioOrdered By: Dr. Curtis on 12-28-2021 Albumin/Globulin [Mass ratio] 0.9 {ratio} 0.9-2.4 [facility] Serum or plasma calcium blaine urement (mass/volume)Ordered By: Dr. Curtis on 12-28-2021 Calcium [Mass/Vol] 9.6 mg/dL 8.5-10.1 [facility] Serum or plasma creatinine m easurement (mass/volume)Ordered By: Dr. Curtis on 12-28-2021 Creatinine [Mass/Vol] 1.34 mg/dL 0.70-1.30 [facility] Comment on above: The validity of the calculated GFR & GFRAA in patients over 70 years has not been determined. Clinical correlation is essential. Serum or plasma urea nitroge n measurement (mass/volume)Ordered By: Dr. Curtis on 12-28-2021 Urea nitrogen [Mass/Vol] 29 mg/dL 7-18 [facility] Thin prep Papanicolaou smear with manual screeningOrdered By: Dr. Curtis on 12-28-2021 Thin prep Papanicolaou smear with manual screening 21 U/L 15-37 [facility] Thin prep Papanicolaou smear with manual screening 9 5-15 [facility] Basophil percentageon 2021 Creatinine [Mass/Vol] 1.1 mg/dL 0.70-1.30 [facility] Work Phone: No Panel Informationon 10-06 Bedside Estimated GFR (eGFR) > 60.0000 mL/min >60 [facility] Work Phone: Absolute lymphocyte counton 06-22-2021 Lymphocytes Auto (Unsp spec) [#/Vol] 2.09 10*3/uL 0.83-4.51 [facility] Work Phone: Basophil percentageon 2021 Basophils/100 WBC (Bld) 0.6 % 0-1 [facility] Work Phone: Bilirubin [Mass/Vol] 1.10 mg/dL 0.20-1.00 [facility] Work Phone: Comment on above: For patients on eltr ombopag therapy, use of Dimension [place] TBIL is not recommended. Chloride [Moles/Vol] 103 mmol/L 98-107 [facility] Work Phone: Eosinophils/100 WBC (Bld) 2.1 % 0-5 [facility] Work Phone: Glucose [Mass/Vol] 165 mg/dL 74-106 [facility] Work Phone: Comment on above: Fasting Glucose resu lt greater than or equal to 126 mg/dL suggests DIABETES MELLITUS per A.D.A. criteria. Neutrophils (Bld) [#/Vol] 6.6 10*3/uL 2.0-7.7 [facility] Work Phone: Neutrophils/100 WBC (Bld) 64.5 % 47-70 [facility] Work Phone: Potassium [Moles/Vol] 3.5 mmol/L 3.5-5.1 [facility] Work Phone: Protein [Mass/Vol] 7.8 g/dL 6.4-8.2 [facility] Work Phone: Sodium [Moles/Vol] 137 mmol/L 136-145 [facility] Work Phone: Testosterone [Mass/Vol] 95.80 ng/dL [facility] Work Phone: Comment on above: CENTRAL 90% REFERENC E RANGES MALE AGE <50 197.44 - 669.58 ng/dL MALE AGE > or = 50 187.72 - 684.19 ng/dL FEMALE AGE <50 8.38 - 35.01 ng/dL FEMALE AGE > or = 50 <7.00 - 35.92 ng/dL Effective as of 10/18/20 WBC (Bld) [#/Vol] 10.2 10*3/uL 4.4-11.0 [facility] Work Phone: Blood erythrocytes count (nu mber/volume)on 06-22-2021 RBC (Bld) [#/Vol] 5.50 10*6/uL 4.6-6.2 [facility] Work Phone: Blood hemoglobin measurement (mass/volume)on 06-22-2021 Hemoglobin (Bld) [Mass/Vol] 15.9 g/dL 13.0-16.5 [facility] Work Phone: Blood lymphocytes/100 leukoc yteson 06-22-2021 Lymphocytes/100 WBC (Bld) 20.6 % 19-41 [facility] Work Phone: [phone] Blood monocytes/100 leukocyt eson 06-22-2021 Monocytes/100 WBC (Bld) 11.3 % 0-10 [facility] Work Phone: [phone] Blood platelet mean volumeon 06-22-2021 Platelet mean volume (Bld) [Entitic vol] 11.9 fL 6.2-12.0 [facility] Work Phone: [phone] Determination of erythrocyte mean corpuscular volume (MCV)on 06-22-2021 MCV (RBC) [Entitic vol] 88.4 fL 80-94 [facility] Work Phone: [phone] Hematocrit Auto (Bld) [Volum e fraction]on 06-22-2021 Hematocrit (Bld) [Volume fraction] 48.6 % 40-54 [facility] Work Phone: [phone] Laboratory - Chemistry and C hemistry - challengeon 06-22-2021 ALP [Catalytic activity/Vol] 104 U/L 45-117 [facility] Work Phone: [phone] ALT [Catalytic activity/Vol] 44 U/L 16-61 [facility] Work Phone: [phone] CO2 [Moles/Vol] 28.0 mmol/L 21.0-32.0 [facility] Work Phone: [phone] Globulin (S) [Mass/Vol] 3.9 g/dL 2.2-4.2 [facility] Work Phone: [phone] Urea nitrogen/Creatinine [Mass ratio] 24.3 mg/mg 10-20 [facility] Work Phone: [phone] Laboratory - Hematology and Cell countson 06-22-2021 Erythrocyte distribution width (RBC) [Entitic vol] 44.3 fL 35.1-43.9 [facility] Work Phone: [phone] Erythrocyte distribution width (RBC) [Ratio] 13.6 % 11.6-14.6 [facility] Work Phone: [phone] Immature granulocytes/100 WBC (Bld) 0.900 % 0.0-0.9 [facility] Work Phone: [phone] Comment on above: IG% - Immature Granu locytes (promyelocytes, myelocytes and metamyelocytes) > 1% indicates that a LEFT SHIFT is Present. MCH (RBC) [Entitic mass] 28.9 pg 27.0-32.0 [facility] Work Phone: [phone] Nucleated RBC/100 WBC (Bld) [Ratio] 0 % 0-5 [facility] Work Phone: [phone] MCHC Auto (RBC) [Mass/Vol]on 06-22-2021 MCHC (RBC) [Mass/Vol] 32.7 g/dL 32-36 [facility] Work Phone: No Panel Informationon 06-22 Estimated GFR (MDRD) Amer 81 mL/min >60 [facility] Work Phone: Comment on above: GFR Calc Estimated GFR (MDRD) Non-Af Amer 67 mL/min >60 [facility] Work Phone: Comment on above: Non- GFR Calc Thyroid Stimulating Hormone (TSH) 1.57 uIU/mL 0.358-3.74 [facility] Work Phone: Vitamin D 25-Hydroxy 48.9 ng/mL [facility] Work Phone: [phone] Comment on above: Vitamin D 25(OH) Sta tus Range Deficiency <20 ng/mL (50nmol/L) Insufficiency 20 - 30 ng/mL (50 - 75 nmol/L) Sufficiency 30 - 100 ng/mL (75 - 250 nmol/L) Toxicity >100 ng/mL (>250 nmol/L) Platelets bldon 06-22-2021 Platelets (Bld) [#/Vol] 176 10*3/uL 150-450 [facility] Work Phone: Serum or plasma albumin blaine urement (mass/volume)on 06-22-2021 Albumin [Mass/Vol] 3.9 g/dL 3.2-5.0 [facility] Work Phone: [phone] Serum or plasma albumin/glob ulin mass ratioon 06-22-2021 Albumin/Globulin [Mass ratio] 1.0 {ratio} 0.9-2.4 [facility] Work Phone: [phone] Serum or plasma calcium blaine urement (mass/volume)on 06-22-2021 Calcium [Mass/Vol] 9.1 mg/dL 8.5-10.1 [facility] Work Phone: [phone] Serum or plasma creatinine m easurement (mass/volume)on 06-22-2021 Creatinine [Mass/Vol] 1.15 mg/dL 0.70-1.30 [facility] Work Phone: Comment on above: The validity of the calculated GFR & GFRAA in patients over 70 years has not been determined. Clinical correlation is essential. Serum or plasma urea nitroge n measurement (mass/volume)on 06-22-2021 Urea nitrogen [Mass/Vol] 28 mg/dL 7-18 [facility] Work Phone: [phone] Thin prep Papanicolaou smear with manual screeningon 06-22-2021 Thin prep Papanicolaou smear with manual screening 19 U/L 15-37 [facility] Work Phone: [phone] Thin prep Papanicolaou smear with manual screening 6 5-15 [facility] Work Phone: Vital Signs Date Time Vital Sign Value Performing Clinician Facility 09-15-2024 15:48-0400 Body height 187.[address] Bulmaro Curtis MD Work Phone: [facility] 09-15-2024 15:48-0400 Body weight 113.[address] Bulmaro Curtis MD Work Phone: [facility] 09-15-2024 14:56-0400 Body mass index (BMI) [Ratio] 32.1 kg/m2 Dr. Bulmaro Curtis MD Work Phone: [facility] 09-15-2024 14:56-0400 Body temperature 96.9 [degF] Dr. Bulmaro Curtis MD Work Phone: [facility] 09-15-2024 14:56-0400 Diastolic blood pressure 84 mm[Hg] Dr. Bulmaro Curtis MD Work Phone: 4(169)785-718710 [place] [address] 09-15-2024 14:56-0400 Heart rate 84 /min Dr. Bulmaro Curtis MD Work Phone: 3(969)215-440710 [place] [address] 09-15-2024 14:56-0400 Respiratory rate 18 /min Dr. Bulmaro Curtis MD Work Phone: 8(201)000-268310 [place] [address] 09-15-2024 14:56-0400 SaO2% (BldA) [Mass fraction] 97 % Dr. Bulmaro Curtis MD Work Phone: 7(979)181-603710 [place] [address] 09-15-2024 14:56-0400 Systolic blood pressure 134 mm[Hg] Dr. Bulmaro Curtis MD Work Phone: 1(688)822-754482 [address] 08-19-2024 13:16-0400 Body height 187.[address] Bulmaro Curtis MD Work Phone: 8(786)805-824197 [place] [address] 08-19-2024 13:16-0400 Body mass index (BMI) [Ratio] 34.8 kg/m2 Dr. Bulmaro Curtis MD Work Phone: 4(202)473-855810 [place] [address] 08-19-2024 13:16-0400 Body temperature 97.3 [degF] Dr. Bulmaro Curtis MD Work Phone: 8(578)836-006210 [place] [address] 08-19-2024 13:16-0400 Body weight 123.[address] Bulamro Curtis MD Work Phone: 5(543)730-614710 [place] [address] 08-19-2024 13:16-0400 Diastolic blood pressure 84 mm[Hg] Dr. Bulmaro Curtis MD Work Phone: 8(499)225-277210 [place] [address] 08-19-2024 13:16-0400 Heart rate 67 /min Dr. Bulmaro Curtis MD Work Phone: 8(343)857-509810 [place] [address] 08-19-2024 13:16-0400 Respiratory rate 16 /min Dr. Bumlaro Curtis MD Work Phone: 5(102)219-300510 [place] [address] 08-19-2024 13:16-0400 SaO2% (BldA) [Mass fraction] 95 % Dr. Bulmaro Curtis MD Work Phone: 7(411)919-633310 [place] [address] 08-19-2024 13:16-0400 Systolic blood pressure 129 mm[Hg] Dr. Bulmaro Curtis MD Work Phone: 2(411)456-422497 [place] [address] 08-18-2024 12:56-0400 Body temperature 96.1 [degF] Dr. Bulmaro Curtis MD Work Phone: 6(606)948-421597 [place] [address] 08-18-2024 12:56-0400 Diastolic blood pressure 65 mm[Hg] Dr. Bulmaro Curtis MD Work Phone: 0(258)690-690397 [place] [address] 08-18-2024 12:56-0400 Heart rate 58 /min Dr. Bulmaro Curtis MD Work Phone: 5(735)421-434797 [place] [address] 08-18-2024 12:56-0400 Respiratory rate 14 /min Dr. Bulmaro Curtis MD Work Phone: 2(303)592-969297 [place] [address] 08-18-2024 12:56-0400 SaO2% (BldA) [Mass fraction] 96 % Dr. Bulmaro Curtis MD Work Phone: 6(206)133-207310 [place] [address] 08-18-2024 12:56-0400 Systolic blood pressure 135 mm[Hg] Dr. Bulmaro Curtis MD Work Phone: 6(492)476-334997 [place] [address] 08-18-2024 09:55-0400 Body weight 123.[address] Bulmaro Curtis MD Work Phone: 5(961)100-828097 [place] [address] 08-18-2024 08:37-0400 Body height 187.[address] Bulmaro Curtis MD Work Phone: 9(119)109-704110 [place] [address] 08-18-2024 08:37-0400 Body mass index (BMI) [Ratio] 35 kg/m2 Dr. Bulmaro Curtis MD Work Phone: 1(827)179-003997 [place] [address] 08-18-2024 08:37-0400 Body temperature 97.1 [degF] Dr. Bulmaro Curtis MD Work Phone: 4(983)634-707297 [place] [address] 08-18-2024 08:37-0400 Body weight 123.[address] Bulmaro Curtis MD Work Phone: 3(229)678-626797 [place] [address] 08-18-2024 08:37-0400 Diastolic blood pressure 74 mm[Hg] Dr. Bulmaro Curtis MD Work Phone: 6(189)998-222397 [place] [address] 08-18-2024 08:37-0400 Heart rate 74 /min Dr. Bulmaro Curtis MD Work Phone: 0(588)806-692397 [place] [address] 08-18-2024 08:37-0400 Respiratory rate 18 /min Dr. Bulmaro Curtis MD Work Phone: 9(587)590-643697 [place] [address] 08-18-2024 08:37-0400 SaO2% (BldA) [Mass fraction] 98 % Dr. Bulmaro Curtis MD Work Phone: 0(358)634-777697 [place] [address] 08-18-2024 08:37-0400 Systolic blood pressure 130 mm[Hg] Dr. Bulmaro Curtis MD Work Phone: 8(180)865-285497 [place] [address] 08-12-2024 13:05-0400 Body height 187.[address] Bulmaro Curtis MD Work Phone: 3(195)314-966297 [place] [address] 08-12-2024 13:05-0400 Body mass index (BMI) [Ratio] 35.1 kg/m2 Dr. Bulmaro Curtis MD Work Phone: 4(484)994-862097 [place] [address] 08-12-2024 13:05-0400 Body temperature 97 [degF] Dr. Bulmaro Curtis MD Work Phone: 4(063)946-333697 [place] [address] 08-12-2024 13:05-0400 Body weight [address] Bulmaro Curtis MD Work Phone: 4(453)667-444497 [place] [address] 08-12-2024 13:05-0400 Diastolic blood pressure 85 mm[Hg] Dr. Bulmaro Curtis MD Work Phone: 8(344)320-904310 [place] [address] 08-12-2024 13:05-0400 Heart rate 90 /min Dr. Bulmaro Curtis MD Work Phone: 4(469)371-672997 [place] [address] 08-12-2024 13:05-0400 Respiratory rate 18 /min Dr. Bulmaro Curtis MD Work Phone: 5(094)761-791497 [place] [address] 08-12-2024 13:05-0400 SaO2% (BldA) [Mass fraction] 92 % Dr. Bulmaro Curtis MD Work Phone: 5(974)931-263997 [place] [address] 08-12-2024 13:05-0400 Systolic blood pressure 130 mm[Hg] Dr. Bulmaro Curtis MD Work Phone: 5(703)165-142297 [place] [address] 08-10-2024 13:22-0400 Diastolic blood pressure 54 mm[Hg] Dr. Bulmaro Curtis MD Work Phone: 4(286)184-530197 [place] [address] 08-10-2024 13:22-0400 Heart rate 65 /min Dr. Bulmaro Curtis MD Work Phone: 9(836)413-826297 [place] [address] 08-10-2024 13:22-0400 Systolic blood pressure 114 mm[Hg] Dr. Bulmaro Curtis MD Work Phone: 4(351)056-927297 [place] [address] 08-10-2024 09:35-0400 Body weight 124.[address] Bulmaro Curtis MD Work Phone: 2(420)816-716597 [place] [address] 08-10-2024 08:46-0400 Body height 187.[address] Bulmaro Curtis MD Work Phone: 9(202)727-149197 [place] [address] 08-10-2024 08:46-0400 Body mass index (BMI) [Ratio] 35.2 kg/m2 Dr. Bulmaro Curtis MD Work Phone: 0(924)683-308397 [place] [address] 08-10-2024 08:46-0400 Body temperature 97.2 [degF] Dr. Bulmaro Curtis MD Work Phone: 2(686)425-180297 [place] [address] 08-10-2024 08:46-0400 Body weight 124.[address] Bulmaro Curtis MD Work Phone: 8(648)785-710997 [place] [address] 08-10-2024 08:46-0400 Diastolic blood pressure 69 mm[Hg] Dr. Bulmaro Curtis MD Work Phone: 0(153)067-380097 [place] [address] 08-10-2024 08:46-0400 Heart rate 68 /min Dr. Bulmaro Curtis MD Work Phone: 5(481)586-181097 [place] [address] 08-10-2024 08:46-0400 Respiratory rate 18 /min Dr. Bulmaro Curtis MD Work Phone: 9(136)017-145497 [place] [address] 08-10-2024 08:46-0400 SaO2% (BldA) [Mass fraction] 97 % Dr. Bulmaro Curtis MD Work Phone: 8(596)996-474097 [place] [address] 08-10-2024 08:46-0400 Systolic blood pressure 112 mm[Hg] Dr. Bulmaro Curtis MD Work Phone: 3(281)212-483597 [place] [address] 08-05-2024 12:03-0400 Body height 187.[address] Bulmaro Curtis MD Work Phone: 5(945)261-187197 [place] [address] 08-05-2024 12:03-0400 Body mass index (BMI) [Ratio] 35.4 kg/m2 Dr. Bulmaro Curtis MD Work Phone: 7(592)259-296397 [place] [address] 08-05-2024 12:03-0400 Body temperature 96.6 [degF] Dr. Bulmaro Curtis MD Work Phone: 6(130)235-407697 [place] [address] 08-05-2024 12:03-0400 Body weight 125.[address] Bulmaro Curtis MD Work Phone: 7(944)717-713997 [place] [address] 08-05-2024 12:03-0400 Diastolic blood pressure 73 mm[Hg] Dr. Bulmaro Curtis MD Work Phone: 5(798)115-190597 [place] [address] 08-05-2024 12:03-0400 Heart rate 82 /min Dr. Bulmaro Curtis MD Work Phone: 5(046)141-436197 [place] [address] 08-05-2024 12:03-0400 Respiratory rate 16 /min Dr. Bulmaro Curtis MD Work Phone: 5(630)496-799910 [place] [address] 08-05-2024 12:03-0400 SaO2% (BldA) [Mass fraction] 91 % Dr. Bulmaro Curtis MD Work Phone: 7(931)319-570510 [place] [address] 08-05-2024 12:03-0400 Systolic blood pressure 123 mm[Hg] Dr. Bulmaro Curtis MD Work Phone: 9(235)898-740597 [place] [address] 08-03-2024 10:01-0400 Body weight 126.[address] Bulmaro Curtis MD Work Phone: 7(279)577-256597 [place] [address] 08-03-2024 08:35-0400 Body mass index (BMI) [Ratio] 35.6 kg/m2 Dr. Bulmaro Curtis MD Work Phone: 0(218)491-199997 [place] [address] 08-03-2024 08:35-0400 Body temperature 97 [degF] Dr. Bulmaro Curtis MD Work Phone: 6(998)469-936097 [place] [address] 08-03-2024 08:35-0400 Body weight 126.[address] Bulmaro Curtis MD Work Phone: 6(481)122-156497 [place] [address] 08-03-2024 08:35-0400 Diastolic blood pressure 69 mm[Hg] Dr. Bulmaro Curtis MD Work Phone: 6(205)599-003097 [place] [address] 08-03-2024 08:35-0400 Heart rate 77 /min Dr. Bulmaro Curtis MD Work Phone: 8(463)993-311697 [place] [address] 08-03-2024 08:35-0400 Respiratory rate 18 /min Dr. Bulmaro Curtis MD Work Phone: 6(328)347-365497 [place] [address] 08-03-2024 08:35-0400 SaO2% (BldA) [Mass fraction] 97 % Dr. Bulmaro Curtis MD Work Phone: 7(135)271-598997 [place] [address] 08-03-2024 08:35-0400 Systolic blood pressure 125 mm[Hg] Dr. Bulmaro Curtis MD Work Phone: 3(724)457-596797 [place] [address] 07-31-2024 12:12-0400 Body temperature 96.5 [degF] Dr. Bulmaro Curtis MD Work Phone: 4(756)985-268897 [place] [address] 07-31-2024 12:12-0400 Diastolic blood pressure 68 mm[Hg] Dr. Bulmaro Curtis MD Work Phone: [facility] 07-31-2024 12:12-0400 Heart rate 65 /min Dr. Bulmaro Curtis MD Work Phone: [facility] 07-31-2024 12:12-0400 Respiratory rate 16 /min Dr. Bulmaro Curtis MD Work Phone: 4(878)383-843210 [place] [address] 07-31-2024 12:12-0400 SaO2% (BldA) [Mass fraction] 95 % Dr. Bulmaro Curtis MD Work Phone: 8(059)585-549097 [place] [address] 07-31-2024 12:12-0400 Systolic blood pressure 121 mm[Hg] Dr. Bulmaro Curtis MD Work Phone: 0(978)887-048997 [place] [address] 07-31-2024 09:52-0400 Body mass index (BMI) [Ratio] 35.4 kg/m2 Dr. Bulmaro Curtis MD Work Phone: 9(564)547-989797 [place] [address] 07-29-2024 09:23-0400 Body mass index (BMI) [Ratio] 35.6 kg/m2 Dr. Bulmaro Curtis MD Work Phone: 1(579)929-987410 [place] [address] 07-29-2024 09:23-0400 Body temperature 96.7 [degF] Dr. Bulmaro Curtis MD Work Phone: 7(540)207-984997 [place] [address] 07-29-2024 09:23-0400 Body weight 126.[address] Bulmaro Curtis MD Work Phone: 1(577)488-114197 [place] [address] 07-29-2024 09:23-0400 Diastolic blood pressure 85 mm[Hg] Dr. Bulmaro Curtis MD Work Phone: 6(421)054-282710 [place] [address] 07-29-2024 09:23-0400 Heart rate 86 /min Dr. Bulmaro Curtis MD Work Phone: 4(922)113-437410 [place] [address] 07-29-2024 09:23-0400 Respiratory rate 18 /min Dr. Bulmaro Curtis MD Work Phone: 3(900)130-073310 [place] [address] 07-29-2024 09:23-0400 SaO2% (BldA) [Mass fraction] 93 % Dr. Bulmaro Curtis MD Work Phone: [facility] 07-29-2024 09:23-0400 Systolic blood pressure 134 mm[Hg] Dr. Bulmaro Curtis MD Work Phone: 6(725)842-304010 [place] [address] 07-27-2024 08:40-0400 Body mass index (BMI) [Ratio] 36.1 kg/m2 Dr. Bulmaro Curtis MD Work Phone: 8(173)767-885310 [place] [address] 07-27-2024 08:40-0400 Body temperature 98 [degF] Dr. Bulmaro Curtis MD Work Phone: 4(744)408-222910 [place] [address] 07-27-2024 08:40-0400 Body weight 127.[address] Bulmaro Curtis MD Work Phone: 1(346)920-999597 [place] [address] 07-27-2024 08:40-0400 Diastolic blood pressure 81 mm[Hg] Dr. Bulmaro Curtis MD Work Phone: 0(075)967-147597 [place] [address] 07-27-2024 08:40-0400 Heart rate 84 /min Dr. Bulmaro Curtis MD Work Phone: 1(323)362-029797 [place] [address] 07-27-2024 08:40-0400 Respiratory rate 18 /min Dr. Bulmaro Curtis MD Work Phone: 6(768)842-253610 [place] [address] 07-27-2024 08:40-0400 SaO2% (BldA) [Mass fraction] 92 % Dr. Bulmaro Curtis MD Work Phone: 9(324)512-869210 [place] [address] 07-27-2024 08:40-0400 Systolic blood pressure 127 mm[Hg] Dr. Bulmaro Curtis MD Work Phone: 5(493)019-438082 [address] 07-22-2024 09:02-0400 Body mass index (BMI) [Ratio] 37.1 kg/m2 Dr. Bulmaro Curtis MD Work Phone: 9(579)206-044810 [place] [address] 07-22-2024 09:02-0400 Body temperature 97.1 [degF] Dr. Bulmaro Curtis MD Work Phone: 3(475)945-165482 [address] 07-22-2024 09:02-0400 Body weight 131.[address] Bulmaro Curtis MD Work Phone: [facility] 07-22-2024 09:02-0400 Diastolic blood pressure 80 mm[Hg] Dr. Bulmaro Curtis MD Work Phone: [facility] 07-22-2024 09:02-0400 Heart rate 81 /min Dr. Bulmaro Curtis MD Work Phone: [facility] 07-22-2024 09:02-0400 Respiratory rate 18 /min Dr. Bulmaro Curtis MD Work Phone: 4(338)553-967310 [place] [address] 07-22-2024 09:02-0400 SaO2% (BldA) [Mass fraction] 94 % Dr. Bulmaro Curtis MD Work Phone: 4(804)778-758810 [place] [address] 07-22-2024 09:02-0400 Systolic blood pressure 147 mm[Hg] Dr. Bulmaro Curtis MD Work Phone: 3(030)562-295610 [place] [address] 07-20-2024 08:44-0400 Body mass index (BMI) [Ratio] 37.1 kg/m2 Dr. Bulmaro Curtis MD Work Phone: 8(105)350-973810 [place] [address] 07-20-2024 08:44-0400 Body temperature 98.1 [degF] Dr. Bulmaro Curtis MD Work Phone: 7(445)640-281310 [place] [address] 07-20-2024 08:44-0400 Body weight 131.[address] Bulmaro Curtis MD Work Phone: [facility] 07-20-2024 08:44-0400 Diastolic blood pressure 75 mm[Hg] Dr. Bulmaro Curtis MD Work Phone: 1(132)704-758910 [place] [address] 07-20-2024 08:44-0400 Heart rate 80 /min Dr. Bumlaro Curtis MD Work Phone: 0(581)053-653310 [place] [address] 07-20-2024 08:44-0400 Respiratory rate 18 /min Dr. Bulmaro Curtis MD Work Phone: [facility] 07-20-2024 08:44-0400 SaO2% (BldA) [Mass fraction] 97 % Dr. Bulmaro Curtis MD Work Phone: 5(761)305-355010 [place] [address] 07-20-2024 08:44-0400 Systolic blood pressure 132 mm[Hg] Dr. Bulmaro Curtis MD Work Phone: 7(607)692-053597 [place] [address] 07-15-2024 10:47-0400 Body height 187.[address] Bulmaro Curtis MD Work Phone: 2(362)324-935197 [place] [address] 07-15-2024 10:47-0400 Body weight [address] Bulmaro Curtis MD Work Phone: 0(728)317-737597 [place] [address] 07-15-2024 09:13-0400 Body mass index (BMI) [Ratio] 37.9 kg/m2 Dr. Bulmaro Curtis MD Work Phone: 5(909)086-067097 [place] [address] 07-15-2024 09:13-0400 Body temperature 96.5 [degF] Dr. Bulmaro Curtis MD Work Phone: 3(077)740-387497 [place] [address] 07-15-2024 09:13-0400 Body weight [address] Bulmaro Curtis MD Work Phone: 3(966)674-425497 [place] [address] 07-15-2024 09:13-0400 Diastolic blood pressure 69 mm[Hg] Dr. Bulmaro Curtis MD Work Phone: 1(066)247-696997 [place] [address] 07-15-2024 09:13-0400 Heart rate 78 /min Dr. Bulmaro Curtis MD Work Phone: 2(810)910-443897 [place] [address] 07-15-2024 09:13-0400 Respiratory rate 18 /min Dr. Bulmaro Curtis MD Work Phone: 3(213)261-248910 [place] [address] 07-15-2024 09:13-0400 SaO2% (BldA) [Mass fraction] 97 % Dr. Bulmaro Curtis MD Work Phone: 3(840)533-024810 [place] [address] 07-15-2024 09:13-0400 Systolic blood pressure 102 mm[Hg] Dr. Bulmaro Curtis MD Work Phone: 1(345)794-853097 [place] [address] 07-13-2024 13:57-0400 Body temperature 96.3 [degF] Dr. Bulmaro Curtis MD Work Phone: [facility] 07-13-2024 13:57-0400 Diastolic blood pressure 66 mm[Hg] Dr. Bulmaro Curtis MD Work Phone: [facility] 07-13-2024 13:57-0400 Heart rate 64 /min Dr. Bulmaro Curtis MD Work Phone: [facility] 07-13-2024 13:57-0400 Respiratory rate 16 /min Dr. Bulmaro Curtis MD Work Phone: 7(845)758-822210 [place] [address] 07-13-2024 13:57-0400 SaO2% (BldA) [Mass fraction] 93 % Dr. Bulmaro Curtis MD Work Phone: 4(023)284-986810 [place] [address] 07-13-2024 13:57-0400 Systolic blood pressure 123 mm[Hg] Dr. Bulmaro Curtis MD Work Phone: 5(119)792-208810 [place] [address] 07-13-2024 10:28-0400 Body mass index (BMI) [Ratio] 37.9 kg/m2 Dr. Bulmaro Curtis MD Work Phone: 0(936)044-510310 [place] [address] 07-13-2024 10:28-0400 Body temperature 98.1 [degF] Dr. Bulmaro Curtis MD Work Phone: [facility] 07-13-2024 10:28-0400 Body weight 133.[address] Bulmaro Curtis MD Work Phone: [facility] 07-13-2024 10:28-0400 Diastolic blood pressure 73 mm[Hg] Dr. Bulmaro Curtis MD Work Phone: [facility] 07-13-2024 10:28-0400 Heart rate 80 /min Dr. Bulmaro Curtis MD Work Phone: 1(650)750-982410 [place] [address] 07-13-2024 10:28-0400 Respiratory rate 18 /min Dr. Bulmaro Curtis MD Work Phone: [facility] 07-13-2024 10:28-0400 SaO2% (BldA) [Mass fraction] 92 % Dr. Bulmaro Curtis MD Work Phone: [facility] 07-13-2024 10:28-0400 Systolic blood pressure 127 mm[Hg] Dr. Bulmaro Curtis MD Work Phone: 9(892)460-661310 [place] [address] 07-09-2024 12:23-0400 Body temperature 97.2 [degF] Dr. Bulmaro Curtis MD Work Phone: 2(240)066-022110 [place] [address] 07-09-2024 12:23-0400 Diastolic blood pressure 78 mm[Hg] Dr. Bulmaro Curtis MD Work Phone: 4(894)632-093610 [place] [address] 07-09-2024 12:23-0400 Heart rate 80 /min Dr. Bulmaro Curtis MD Work Phone: 2(792)329-184997 [place] [address] 07-09-2024 12:23-0400 Respiratory rate 16 /min Dr. Bulmaro Curtis MD Work Phone: 3(883)411-560597 [place] [address] 07-09-2024 12:23-0400 SaO2% (BldA) [Mass fraction] 94 % Dr. Bulmaro Curtis MD Work Phone: 9(980)404-519210 [place] [address] 07-09-2024 12:23-0400 Systolic blood pressure 155 mm[Hg] Dr. Bulmaro Curtis MD Work Phone: 8(397)433-536497 [place] [address] 07-09-2024 10:02-0400 Body height 187.[address] Bulmaro Curtis MD Work Phone: 7(201)797-687410 [place] [address] 07-09-2024 10:02-0400 Body mass index (BMI) [Ratio] 38.7 kg/m2 Dr. Bulmaro Curtis MD Work Phone: 8(003)097-393010 [place] [address] 07-09-2024 10:02-0400 Body weight [address] Bulmaro Curtis MD Work Phone: 5(835)501-246810 [place] [address] 07-08-2024 09:52-0400 Body weight 139.[address] Bulmaro Curtis MD Work Phone: 7(842)588-019310 [place] [address] 07-08-2024 09:20-0400 Body mass index (BMI) [Ratio] 38.9 kg/m2 Dr. Bulmaro Curtis MD Work Phone: [facility] 07-08-2024 09:20-0400 Body temperature 96.9 [degF] Dr. Bulmaro Curtis MD Work Phone: 9(432)855-563710 [place] [address] 07-08-2024 09:20-0400 Body weight 137.[address] Bulmaro Curtis MD Work Phone: 6(249)520-989197 [place] [address] 07-08-2024 09:20-0400 Diastolic blood pressure 71 mm[Hg] Dr. Bulmaro Curtis MD Work Phone: 0(243)286-740497 [place] [address] 07-08-2024 09:20-0400 Heart rate 58 /min Dr. Bulmaro Curtis MD Work Phone: 8(058)755-932997 [place] [address] 07-08-2024 09:20-0400 Respiratory rate 16 /min Dr. Bulmaro Curtis MD Work Phone: 3(977)686-733997 [place] [address] 07-08-2024 09:20-0400 SaO2% (BldA) [Mass fraction] 93 % Dr. Bulmaro Curtis MD Work Phone: 6(609)039-962697 [place] [address] 07-08-2024 09:20-0400 Systolic blood pressure 116 mm[Hg] Dr. Bulmaro Curtis MD Work Phone: 8(247)663-297497 [place] [address] 07-06-2024 13:42-0400 Diastolic blood pressure 67 mm[Hg] Dr. Bulmaro Curtis MD Work Phone: 9(210)999-483397 [place] [address] 07-06-2024 13:42-0400 Heart rate 74 /min Dr. Bulmaro Curtis MD Work Phone: 0(681)322-389197 [place] [address] 07-06-2024 13:42-0400 Systolic blood pressure 142 mm[Hg] Dr. Bulmaro Curtis MD Work Phone: 4(825)437-693197 [place] [address] 07-06-2024 08:23-0400 Body mass index (BMI) [Ratio] 39.4 kg/m2 Dr. Bulmaro Curtis MD Work Phone: 8(390)178-772897 [place] [address] 07-06-2024 08:23-0400 Body temperature 98.2 [degF] Dr. Bulmaro Curtis MD Work Phone: [facility] 07-06-2024 08:23-0400 Body weight 139.[address] Bulmaro Curtis MD Work Phone: 0(455)293-355710 [place] [address] 07-06-2024 08:23-0400 Diastolic blood pressure 72 mm[Hg] Dr. Bulmaro Curtis MD Work Phone: 8(867)439-448810 [place] [address] 07-06-2024 08:23-0400 Heart rate 66 /min Dr. Bulmaro Curtis MD Work Phone: 9(907)120-788597 [place] [address] 07-06-2024 08:23-0400 Respiratory rate 18 /min Dr. Bulmaro Curtis MD Work Phone: 0(196)166-941297 [place] [address] 07-06-2024 08:23-0400 SaO2% (BldA) [Mass fraction] 94 % Dr. Bulmaro Curtis MD Work Phone: 0(560)654-906197 [place] [address] 07-06-2024 08:23-0400 Systolic blood pressure 158 mm[Hg] Dr. Bulmaro Curtis MD Work Phone: 0(550)381-780197 [place] [address] 07-02-2024 14:09-0400 Body temperature 97.6 [degF] Dr. Bulmaro Curtis MD Work Phone: 7(445)640-738497 [place] [address] 07-02-2024 14:09-0400 Diastolic blood pressure 84 mm[Hg] Dr. Bulmaro Curtis MD Work Phone: 9(538)422-253997 [place] [address] 07-02-2024 14:09-0400 Heart rate 70 /min Dr. Bulmaro Curtis MD Work Phone: [facility] 07-02-2024 14:09-0400 Respiratory rate 16 /min Dr. Bulmaro Curtis MD Work Phone: 0(798)215-624010 [place] [address] 07-02-2024 14:09-0400 SaO2% (BldA) [Mass fraction] 94 % Dr. Bulmaro Curtis MD Work Phone: 3(822)317-484210 [place] [address] 07-02-2024 14:09-0400 Systolic blood pressure 151 mm[Hg] Dr. Bulmaro Curtis MD Work Phone: 3(323)965-485510 [place] [address] 07-02-2024 14:00-0400 Heart rate 56 /min Dr. Bulmaro Curtis MD Work Phone: 0(693)856-638310 [place] [address] 07-02-2024 14:00-0400 Respiratory rate 20 /min Dr. Bulmaro Curtis MD Work Phone: 9(680)710-843010 [place] [address] 07-02-2024 13:15-0400 Inhaled oxygen flow rate 2 L/min Dr. Bulmaro Curtis MD Work Phone: 6(786)349-466810 [place] [address] 07-02-2024 08:54-0400 Body height 187.[address] Bulmaro Curits MD Work Phone: 0(182)198-795710 [place] [address] 07-02-2024 08:54-0400 Body mass index (BMI) [Ratio] 39.9 kg/m2 Dr. Bulmaro Curtis MD Work Phone: 5(372)528-176410 [place] [address] 07-02-2024 08:54-0400 Body weight [address] Bulmaro Curtis MD Work Phone: 4(484)238-984910 [place] [address] 06-29-2024 10:27-0400 Body mass index (BMI) [Ratio] 40.2 kg/m2 Dr. Bulmaro Curtis MD Work Phone: 8(780)571-313010 [place] [address] 06-29-2024 10:27-0400 Body temperature 97.9 [degF] Dr. Bulmaro Curtis MD Work Phone: 0(184)802-276210 [place] [address] 06-29-2024 10:27-0400 Body weight 142.[address] Bulmaro Curtis MD Work Phone: 3(587)082-775010 [place] [address] 06-29-2024 10:27-0400 Diastolic blood pressure 72 mm[Hg] Dr. Bulmaro Curtis MD Work Phone: 0(303)488-171110 [place] [address] 06-29-2024 10:27-0400 Heart rate 58 /min Dr. Bulmaro Curtis MD Work Phone: 0(314)649-630110 [place] [address] 06-29-2024 10:27-0400 Respiratory rate 16 /min Dr. Bulmaro Curtis MD Work Phone: 8(736)974-291810 [place] [address] 06-29-2024 10:27-0400 SaO2% (BldA) [Mass fraction] 94 % Dr. Bulmaro Curtis MD Work Phone: [facility] 06-29-2024 10:27-0400 Systolic blood pressure 149 mm[Hg] Dr. Bulmaro Curtis MD Work Phone: [facility] 06-11-2024 08:25-0400 Diastolic blood pressure 54 mm[Hg] Franco Sanchez BLANCA Work Phone: [facility] 06-11-2024 08:25-0400 Heart rate 82 /min Franco Sanchez BLANCA Work Phone: [facility] 06-11-2024 08:25-0400 Systolic blood pressure 148 mm[Hg] Franco Sanchez BLANCA Work Phone: [facility] 06-03-2024 09:39-0400 Body mass index (BMI) [Ratio] 40.8 kg/m2 Dr. Bulmaro Curtis MD Work Phone: [facility] 06-03-2024 09:39-0400 Body weight 144.[address] Bulmaro Curtis MD Work Phone: [facility] 06-03-2024 09:39-0400 Diastolic blood pressure 63 mm[Hg] Dr. Bulmaro Curtis MD Work Phone: [facility] 06-03-2024 09:39-0400 Heart rate 87 /min Dr. Bulmaro Curtis MD Work Phone: [facility] 06-03-2024 09:39-0400 Respiratory rate 18 /min Dr. Bulmaro Curtis MD Work Phone: [facility] 06-03-2024 09:39-0400 SaO2% (BldA) [Mass fraction] 92 % Dr. Bulmaro Curtis MD Work Phone: [facility] 06-03-2024 09:39-0400 Systolic blood pressure 136 mm[Hg] Dr. Bulmaro Curtis MD Work Phone: [facility] 06-02-2024 15:39-0400 Body mass index (BMI) [Ratio] 40.8 kg/m2 Dr. Bulmaro Curtis MD Work Phone: [facility] 06-02-2024 15:39-0400 Body temperature 98.1 [degF] Dr. Bulmaro Curtis MD Work Phone: [facility] 06-02-2024 15:39-0400 Body weight 144.[address] Bulmaro Curtis MD Work Phone: [facility] 06-02-2024 15:39-0400 Diastolic blood pressure 69 mm[Hg] Dr. Bulmaro Curtis MD Work Phone: 1(747)668-273610 [place] [address] 06-02-2024 15:39-0400 Heart rate 77 /min Dr. Bulmaro Curtis MD Work Phone: 2(329)612-555410 [place] [address] 06-02-2024 15:39-0400 Respiratory rate 18 /min Dr. Bulmaro Curtis MD Work Phone: 9(470)890-258610 [place] [address] 06-02-2024 15:39-0400 SaO2% (BldA) [Mass fraction] 93 % Dr. Bulmaro Curtis MD Work Phone: [facility] 06-02-2024 15:39-0400 Systolic blood pressure 131 mm[Hg] Dr. Bulmaro Curtis MD Work Phone: [facility] 05-26-2024 13:00-0500 Body mass index (BMI) [Ratio] 40 kg/m2 Dr. Bulmaro Curtis MD Work Phone: [facility] 05-26-2024 13:00-0500 Body temperature 97.9 [degF] Dr. Bulmaro Curtis MD Work Phone: [facility] 05-26-2024 13:00-0500 Body weight 141.[address] Bulmaro Curtis MD Work Phone: [facility] 05-26-2024 13:00-0500 Diastolic blood pressure 80 mm[Hg] Dr. Bulmaro Curtis MD Work Phone: [facility] 05-26-2024 13:00-0500 Heart rate 73 /min Dr. Bulmaro Curtis MD Work Phone: [facility] 05-26-2024 13:00-0500 Respiratory rate 18 /min Dr. Bulmaro Curtis MD Work Phone: [facility] 05-26-2024 13:00-0500 SaO2% (BldA) [Mass fraction] 91 % Dr. Bulmaro Curtis MD Work Phone: [facility] 05-26-2024 13:00-0500 Systolic blood pressure 124 mm[Hg] Dr. Bulmaro Curtis MD Work Phone: [facility] 05-08-2024 09:57-0500 Body temperature 98.49 [degF] Simon Packer MD Work Phone: [facility] 05-08-2024 09:57-0500 Diastolic blood pressure 53 mm[Hg] Simon Packer MD Work Phone: [facility] 05-08-2024 09:57-0500 Heart rate 75 /min Simon Packer MD Work Phone: [facility] 05-08-2024 09:57-0500 Respiratory rate 16 /min Simon Packer MD Work Phone: [facility] 05-08-2024 09:57-0500 SaO2% (BldA) [Mass fraction] 93 % Simon Packer MD Work Phone: [facility] 05-08-2024 09:57-0500 Systolic blood pressure 132 mm[Hg] [facility] 04-28-2024 14:34-0500 Heart rate 81 /min Evieshirley Blank PIPEFITTER HELPER-EXTRUDER OPERATOR HELPER Work Phone: [employer] 04-28-2024 12:56-0500 Body height 188 cm Evieshirley Blank PIPEFITTER HELPER-EXTRUDER OPERATOR HELPER Work Phone: [employer] 04-28-2024 12:56-0500 Body mass index (BMI) [Ratio] 40.93 kg/m2 Evie Markiv PIPEFITTER HELPER-EXTRUDER OPERATOR HELPER Work Phone: [employer] 04-28-2024 12:56-0500 Body weight 144.61 kg Evie Blank APRN-EXTRUDER OPERATOR HELPER Work Phone: [employer] 04-28-2024 12:56-0500 Diastolic blood pressure 69 mm[Hg] Evie Blank APRN-EXTRUDER OPERATOR HELPER Work Phone: [employer] 04-28-2024 12:56-0500 Heart rate 90 /min Evie Blank APRN-EXTRUDER OPERATOR HELPER Work Phone: [employer] 04-28-2024 12:56-0500 Respiratory rate 16 /min Evie Blank APRN-EXTRUDER OPERATOR HELPER Work Phone: [employer] 04-28-2024 12:56-0500 SaO2% (BldA) [Mass fraction] 96 % Evie Blank APRNWound Care TechnologiesEXTRUDER OPERATOR HELPER Work Phone: [employer] 04-28-2024 12:56-0500 Systolic blood pressure 131 mm[Hg] Evie Blank APRN-EXTRUDER OPERATOR HELPER Work Phone: [employer] 04-28-2024 11:40-0500 Body temperature 98.49 [degF] Simon Packer MD Work Phone: [employer] 04-28-2024 11:40-0500 Body weight 144.2 kg Simon Packer MD Work Phone: [employer] 04-28-2024 11:40-0500 Heart rate 82 /min Simon Packer MD Work Phone: [employer] 04-28-2024 11:40-0500 SaO2% (BldA) [Mass fraction] 97 % Simon Packer MD Work Phone: [employer] 07-31-2023 07:26-0400 Body height 187.[address] Bulmaro Curtis Work Phone: [facility] 07-31-2023 07:26-0400 Body mass index (BMI) [Ratio] 42 kg/m2 Dr. Bulmaro Curtis Work Phone: [facility] 07-31-2023 07:26-0400 Body temperature 98 [degF] Dr. Bulmaro Curtis Work Phone: [facility] 07-31-2023 07:26-0400 Body weight 148.[address] Bulmaro Curtis Work Phone: [facility] 07-31-2023 07:26-0400 Diastolic blood pressure 83 mm[Hg] Dr. Bulmaro Curtis Work Phone: 5(183)520-804210 [place] [address] 07-31-2023 07:26-0400 Heart rate 82 /min Dr. Bulmaro Curtis Work Phone: 8(235)857-231482 [address] 07-31-2023 07:26-0400 Respiratory rate 22 /min Dr. Bulmaro Curtis Work Phone: 9(941)770-920782 [address] 07-31-2023 07:26-0400 SaO2% (BldA) [Mass fraction] 94 % Dr. Bulmaro Curtis Work Phone: [facility] 07-31-2023 07:26-0400 Systolic blood pressure 146 mm[Hg] Dr. Bulmaro Curtis Work Phone: 8(615)463-060582 [address] 03-14-2023 06:27-0500 Body height 187.[address] Bulmaro Curtis Work Phone: [facility] 03-14-2023 06:27-0500 Body mass index (BMI) [Ratio] 27.6 kg/m2 Dr. Bulmaro Curtis Work Phone: [facility] 03-14-2023 06:27-0500 Body temperature 96.9 [degF] Dr. Bulmaro Curtis Work Phone: 5(124)913-935910 [place] [address] 03-14-2023 06:27-0500 Body weight 97.[address] Bulmaro Curtis Work Phone: [facility] 03-14-2023 06:27-0500 Diastolic blood pressure 70 mm[Hg] Dr. Bulmaro Curtis Work Phone: 4(492)512-189110 [place] [address] 03-14-2023 06:27-0500 Heart rate 71 /min Dr. Bulmaro Curtis Work Phone: 3(431)329-188710 [place] [address] 03-14-2023 06:27-0500 Respiratory rate 20 /min Dr. Bulmaro Curtis Work Phone: 8(348)578-787110 [place] [address] 03-14-2023 06:27-0500 SaO2% (BldA) [Mass fraction] 94 % Dr. Bulmaro Curtis Work Phone: 1(490)878-668410 [place] [address] 03-14-2023 06:27-0500 Systolic blood pressure 136 mm[Hg] Dr. Bulmaro Curtis Work Phone: 6(823)336-359897 [place] [address] 12-17-2022 08:52-0400 Diastolic blood pressure 77 mm[Hg] Dr. Bulmaro Curtis Work Phone: 4(693)603-811497 [place] [address] 12-17-2022 08:52-0400 Heart rate 70 /min Dr. Bulmaro Curtis Work Phone: 9(581)229-802697 [place] [address] 12-17-2022 08:52-0400 Systolic blood pressure 166 mm[Hg] Dr. Bulmaro Curtis Work Phone: 4(765)173-024997 [place] [address] 12-17-2022 07:51-0400 Body height 187.[address] Bulmaro Curits Work Phone: 3(618)279-638497 [place] [address] 12-17-2022 07:51-0400 Body mass index (BMI) [Ratio] 39.6 kg/m2 Dr. Bulmaro Curtis Work Phone: 2(649)496-646197 [place] [address] 12-17-2022 07:51-0400 Body temperature 97.9 [degF] Dr. Bulmaro Curtis Work Phone: 5(668)073-279797 [place] [address] 12-17-2022 07:51-0400 Body weight 140.[address] Bulmaro Curtis Work Phone: 4(407)016-656397 [place] [address] 12-17-2022 07:51-0400 Respiratory rate 16 /min Dr. Bulmaro Curtis Work Phone: 4(214)272-561710 [place] [address] 12-17-2022 07:51-0400 SaO2% (BldA) [Mass fraction] 95 % Dr. Bulmaro Curtis Work Phone: [facility] 09-12-2022 06:21-0400 Body mass index (BMI) [Ratio] 38.7 kg/m2 Dr. Bulmaro Curtis Work Phone: [facility] 09-12-2022 06:21-0400 Body temperature 97.6 [degF] Dr. Bulmaro Curtis Work Phone: [facility] 09-12-2022 06:21-0400 Body weight 140.[address] Bulmaro Curtis Work Phone: [facility] 09-12-2022 06:21-0400 Diastolic blood pressure 73 mm[Hg] Dr. Bulmaro Curtis Work Phone: [facility] 09-12-2022 06:21-0400 Heart rate 70 /min Dr. Bulmaro Curtis Work Phone: [facility] 09-12-2022 06:21-0400 Respiratory rate 20 /min Dr. Bulmaro Curtis Work Phone: [facility] 09-12-2022 06:21-0400 SaO2% (BldA) [Mass fraction] 92 % Dr. Bulmaro Curtis Work Phone: [facility] 09-12-2022 06:21-0400 Systolic blood pressure 141 mm[Hg] Dr. Bulmaro Curtis Work Phone: [facility] 05-21-2022 07:54-0500 Body height 190.[address] Bulmaro Curtis Work Phone: [facility] 05-21-2022 07:54-0500 Body mass index (BMI) [Ratio] 39.4 kg/m2 Dr. Bulmaro Curtis Work Phone: [facility] 05-21-2022 07:54-0500 Body temperature 98 [degF] Dr. Bulmaro Curtis Work Phone: [facility] 05-21-2022 07:54-0500 Body weight 142.[address] Bulmaro Curtis Work Phone: [facility] 05-21-2022 07:54-0500 Diastolic blood pressure 80 mm[Hg] Dr. Bulmaro Curtis Work Phone: [facility] 05-21-2022 07:54-0500 Heart rate 78 /min Dr. Bulmaro Curtis Work Phone: [facility] 05-21-2022 07:54-0500 Respiratory rate 18 /min Dr. Bulmaro Curtis Work Phone: [facility] 05-21-2022 07:54-0500 SaO2% (BldA) [Mass fraction] 92 % Dr. Bulmaro Curtis Work Phone: [facility] 05-21-2022 07:54-0500 Systolic blood pressure 138 mm[Hg] Dr. Bulmaro Curtis Work Phone: 9(134)978-961610 [place] [address] 05-15-2022 11:30-0500 Diastolic blood pressure 76 mm[Hg] Dr. Bulmaro Curtis Work Phone: [facility] 05-15-2022 11:30-0500 Heart rate 70 /min Dr. Bulmaro Curtis Work Phone: [facility] 05-15-2022 11:30-0500 Respiratory rate 18 /min Dr. Bulmaro Curtis Work Phone: [facility] 05-15-2022 11:30-0500 SaO2% (BldA) [Mass fraction] 93 % Dr. Bulmaro Curtis Work Phone: [facility] 05-15-2022 11:30-0500 Systolic blood pressure 125 mm[Hg] Dr. Bulmaro Curtis Work Phone: 2(034)856-781010 [place] [address] 05-15-2022 08:15-0500 Body height 190.[address] Bulmaro Curtis Work Phone: [facility] 05-15-2022 08:15-0500 Body mass index (BMI) [Ratio] 38.6 kg/m2 Dr. Bulmaro Curtis Work Phone: [facility] 05-15-2022 08:15-0500 Body temperature 96.6 [degF] Dr. Bulmaro Curtis Work Phone: [facility] 05-15-2022 08:15-0500 Body weight 140.[address] Bulmaro Curtis Work Phone: [facility] 05-08-2022 06:35-0500 Body mass index (BMI) [Ratio] 40.4 kg/m2 Dr. Bulmaro Curtis Work Phone: [facility] 05-08-2022 06:35-0500 Body temperature 97.5 [degF] Dr. Bulmaro Curtis Work Phone: 7(782)664-191510 [place] [address] 05-08-2022 06:35-0500 Body weight 142.[address] Bulmaro Curtis Work Phone: 9(883)401-020910 [place] [address] 05-08-2022 06:35-0500 Diastolic blood pressure 77 mm[Hg] Dr. Bulmaro Curtis Work Phone: 5(153)898-111010 [place] [address] 05-08-2022 06:35-0500 Heart rate 79 /min Dr. Bulmaro Curtis Work Phone: [facility] 05-08-2022 06:35-0500 Respiratory rate 22 /min Dr. Bulmaro Curtis Work Phone: [facility] 05-08-2022 06:35-0500 SaO2% (BldA) [Mass fraction] 94 % Dr. Bulmaro Curtis Work Phone: [facility] 05-08-2022 06:35-0500 Systolic blood pressure 140 mm[Hg] Dr. Bulmaro Curtis Work Phone: [facility] 06-07-2021 08:46-0400 Body height 187.[address] Bulmaro Curtis Work Phone: [facility] Work Phone: 06-07-2021 08:46-0400 Body mass index (BMI) [Ratio] 40 kg/m2 Dr. Bulmaro Curtis Work Phone: [facility] Work Phone: 06-07-2021 08:46-0400 Body temperature 97.2 [degF] Dr. Bulmaro Curtis Work Phone: [facility] Work Phone: 06-07-2021 08:46-0400 Body weight 141.[address] Bulmaro Curtis Work Phone: [facility] Work Phone: 06-07-2021 08:46-0400 Diastolic blood pressure 68 mm[Hg] Dr. Bulmaro Curtis Work Phone: [facility] Work Phone: 06-07-2021 08:46-0400 Heart rate 67 /min Dr. Bulmaro Curtis Work Phone: [facility] Work Phone: 06-07-2021 08:46-0400 Respiratory rate 17 /min Dr. Bulmaro Curtis Work Phone: [facility] Work Phone: 06-07-2021 08:46-0400 SaO2% (BldA) [Mass fraction] 94 % Dr. Bulmaro Curtis Work Phone: [facility] Work Phone: 06-07-2021 08:46-0400 Systolic blood pressure 116 mm[Hg] Dr. Bulmaro Curtis Work Phone: [facility] Work Phone: 03-13-2021 08:25-0500 Body mass index (BMI) [Ratio] 36.8 kg/m2 Dr. Bulmaro Curtis Work Phone: [facility] Work Phone: 03-13-2021 08:25-0500 Body weight 130.[address] Bulmaro Curtis Work Phone: [facility] Work Phone: Encounters Encounter Date Encounter Type Care Provider Facility Start: 09-15-[address] Cipriano Layne [facility] Start: 09-15-2024 End: 09-15-[address] [facility] Work Phone: Start: 09-15-2024 End: 09-15-[address] Bulmaro Curtis MD Work Phone: [facility] Work Phone: Start: 08-20-2024 Non-patient / Non-visit Dr. Christina VÁSQUEZ [facility] Work Phone: Start: 08-20-2024 ambulatory Cipriano Layne Facility: [facility] Start: 08-19-2024 End: 08-19-[address] Cipriano Layne DO [facility] Work Phone: Start: 08-19-2024 End: 08-19-[address] Bulmaro Curtis MD Work Phone: [facility] Work Phone: Start: 08-19-[address] [facility] Start: 08-18-2024 End: 08-21-2024 Telephone encounter Cindy Newell RN Work Phone: [facility] Otolaryngology (ENT) Start: 08-18-[address] [facility] Start: 08-18-2024 End: 08-18-[address] Franco Pérez MD -[facility] Work Phone: Start: 08-18-2024 End: 08-18-[address] Bulmaro Curtis MD Work Phone: [facility] Work Phone: Start: 08-12-2024 End: 08-12-[address] Cipriano Layne DO [facility] Work Phone: Start: 08-12-2024 End: 08-12-[address] Bulmaro Curtis MD Work Phone: [facility] Work Phone: Start: 08-12-[address] Cipriano Layne DO -Radiation Oncology Start: 08-10-[address] Cipriano Layne DO -Radiation Oncology Start: 08-10-2024 End: 08-10-[address] Franco Pérez MD -[facility] Work Phone: Start: 08-10-2024 End: 08-10-[address] Bulmaro Curtis MD Work Phone: [facility] Work Phone: Start: 08-07-[address] Cipriano Layne DO -Speech Therapy Work Phone: Start: 08-05-2024 End: 08-05-[address] [facility] Work Phone: Start: 08-05-2024 End: 08-05-[address] Bulmaro Curtis MD Work Phone: [facility] Work Phone: Start: 08-05-[address] Cipriano Layne DO -Radiation Oncology Start: 08-03-2024 End: 08-03-[address] Franco Pérez MD -[facility] Work Phone: Start: 08-03-2024 End: 08-03-2024 ambulatory Bulmaro Curtis Facility:[facility] Start: 07-31-[address] [facility] Work Phone: Start: 07-29-2024 End: 07-29-[address] Cipriano Layne DO [facility] Work Phone: Start: 07-29-2024 End: 07-29-2024 ambulatory Cipriano Layne Facility:[facility] Start: 07-28-2024 ambulatory Cipriano Layne Facility: [facility] Start: 07-28-2024 Non-patient / Non-visit Dr. Christina VÁSQUEZ -[facility] Start: 07-27-2024 ambulatory Cipriano Layne Facility: [facility] Start: 07-27-2024 Non-patient / Non-visit Dr. Christina VÁSQUEZ -[facility] Start: 07-27-2024 End: 07-27-[address] Franco Pérez MD -[facility] Work Phone: Start: 07-27-2024 End: 07-27-2024 ambulatory Bulmaro Chi Ever Facility:[facility] Start: 07-22-2024 End: 07-22-2024 Patient encounter procedure Elicia Yin PA-C -[facility] Work Phone: Start: 07-22-2024 End: 07-22-2024 ambulatory Bulmaro Chi Ever Facility:[facility] Start: 07-20-2024 End: 07-20-[address] Franco Pérez MD -[facility] Work Phone: Start: 07-20-2024 End: 07-20-2024 ambulatory Bulmaro Chi Ever Facility:[facility] Start: 07-17-[address] Cipriano Layne DO -Radiation Oncology Start: 07-15-2024 End: 07-15-[address] Cipriano Layne DO -[facility] Work Phone: Start: 07-15-2024 End: 07-15-2024 ambulatory Cipriano Layne Facility:[facility] Start: 07-14-2024 End: 07-14-[address] Bulmaro Curtis MD Work Phone: [facility] Work Phone: Start: 07-14-2024 End: 07-14-[address] Cipriano Layne DO -Radiology, [facility] Work Phone: Start: 07-13-[address] Cipriano Layne DO -Speech Therapy Work Phone: Start: 07-13-2024 End: 07-13-[address] Franco Pérez MD -[facility] Work Phone: Start: 07-13-2024 End: 07-14-2024 ambulatory Cipriano Layne Facility:[facility] Start: 07-11-2024 End: 07-11-2024 Letter encounter Evie Blank PIPEFITTER HELPER-EXTRUDER OPERATOR HELPER Work Phone: [facility] Start: 07-10-[address] Cipriano Layne DO -Radiation Oncology Start: 07-09-2024 ambulatory Daniel Sánchez Facility :[facility] Start: 07-09-2024 Non-patient / Non-visit Dr. Priyank ALVARENGA -[facility] Start: 07-09-2024 End: 07-09-2024 Admission to same day surgery center Dr. Daniel Sánchez MD -Surgical Day Care Start: 07-09-2024 End: 07-09-[address] Bulmaro Curtis MD Work Phone: [facility] Work Phone: Start: 07-09-[address] Cipriano Layne DO -Radiation Oncology Start: 07-08-2024 End: 07-08-[address] Cipriano Layne DO -[facility] Work Phone: Start: 07-08-2024 End: 07-08-2024 ambulatory Cipriano Layne Facility:[facility] Start: 07-06-2024 End: 07-06-[address] Bulmaro Curtis MD Work Phone: [facility] Work Phone: Start: 07-06-2024 End: 07-06-2024 Patient encounter procedure Elicia Yin PA-C -Radiology, [facility] Work Phone: Start: 07-06-2024 End: 07-06-[address] Franco Pérez MD -[facility] Work Phone: Start: 07-06-2024 End: 07-06-2024 ambulatory Bulmaro Curtis Facility:[facility] Start: 07-06-2024 End: 07-06-2024 ambulatory Elicia Yin Facility:[facility] Start: 07-02-2024 End: 07-02-2024 ambulatory Jovon Martin Facility:[facility] Start: 07-02-2024 End: 07-02-2024 Non-patient / Non-visit Dr. Andry Juárez MD -[facility] Work Phone: Start: 07-02-2024 ambulatory Daniel Sánchez Facility :[facility] Start: 07-02-2024 Non-patient / Non-visit Dr. Priyank ALVARENGA -[facility] Start: 07-02-2024 End: 07-02-2024 Admission to same day surgery center Dr. Daniel Sánchez MD -Surgical Day Care Start: 07-02-2024 End: 07-02-[address] Bulmaro Curtis MD Work Phone: [facility] Work Phone: Start: 06-29-2024 End: 06-29-2024 Patient encounter procedure Ashly Laguerre COMPUTER NETWORK SUPPORT SPECIALIST-C -[facility] Work Phone: Start: 06-29-2024 End: 06-29-2024 ambulatory Bulmaro Curtis Facility:[facility] Start: 06-24-2024 ambulatory Cipriano Layne Facility: [facility] Start: 06-24-2024 Non-patient / Non-visit Dr. Vasquez [facility] Start: 06-23-2024 ambulatory Cipriano Layne Facility: [facility] Start: 06-23-2024 Non-patient / Non-visit Dr. Christina VÁSQUEZ [facility] Start: 06-19-2024 ambulatory Cipriano Layne Facility: [facility] Start: 06-19-2024 Non-patient / Non-visit Dr. Vasquez [facility] Start: 06-19-[address] Cipriano Layne DO -Radiation Oncology Start: 06-11-2024 ambulatory UNKNOWN PROVIDER Facili ty:[facility] Start: 06-11-2024 End: 06-11-2024 Patient encounter procedure Franco Sanchez BLANCA Work Phone: [facility] Oral Surgery Comment on above: Postoperative pain ( Primary Dx); Chronic dental caries extending to pulp; Chronic periodontitis Start: 06-04-2024 End: 06-05-2024 ambulatory UNKNOWN PROVIDER Facility:[facility] Start: 06-03-2024 End: 06-03-[address] Daniel Sánchez MD -[facility] Work Phone: Start: 06-03-2024 End: 06-03-2024 ambulatory Daniel Sánchez Facility:[facility] Start: 06-02-2024 End: 06-02-[address] Franco Pérez MD -[facility] Work Phone: Start: 06-02-2024 End: 06-02-2024 ambulatory Bulmaro Curtis Facility[facility] Start: 05-27-2024 End: 05-27-2024 ambulatory UNKNOWN PROVIDER Facility:[facility] Start: 05-26-2024 End: 05-26-[address] Cipriano Layne DO -[facility] Work Phone: Start: 05-26-2024 End: 05-26-2024 ambulatory Cipriano Layne Facility:[facility] Start: 05-22-2024 End: 05-22-2024 ambulatory UNKNOWN PROVIDER Facility:[facility] Start: 05-22-2024 ambulatory SHARDA CIARA N ANDARA Facility:[facility] Start: 05-20-2024 Non-patient / Non-visit Lelo Galicia [facility] Work Phone: Start: 05-20-2024 ambulatory Lelo Dan Facility :[facility] Start: 05-13-2024 End: 05-13-2024 ambulatory UNKNOWN PROVIDER Facility:[facility] Start: 05-13-2024 End: 05-14-2024 ambulatory UNKNOWN PROVIDER Facility:[facility] Start: 05-08-2024 End: 05-08-2024 ambulatory SIMON PACKER Facility:[facility] Start: 05-08-2024 End: 05-08-2024 Subsequent hospital visit by physician [facility] Comment on above: Neck mass; Warthin's tumor; Oropharyngeal mass Start: 05-05-2024 End: 05-05-2024 Telephone encounter Cindy Newell RN Work Phone: [facility] Otolaryngology (ENT) Start: 05-04-2024 End: 05-04-2024 Telephone encounter Gela Kelly APPEALS REVIEWER VETERAN [facility] Comment on above: Outreach Start: 04-28-2024 End: 04-29-2024 Office consultation new/estab patient 60 min Evie Blank PIPEFITTER HELPER-EXTRUDER OPERATOR HELPER [facility] Comment on above: Pre-op testing (Prim shanika Dx); Abnormal electrocardiogram (ECG) (EKG); Abnormal electrocardiogram (ECG) (EKG); Primary hypertension; H/O pulmonary emphysema (HCC) Start: 04-28-2024 End: 04-29-2024 Patient encounter status Evie Blank PIPEFITTER HELPER-EXTRUDER OPERATOR HELPER Work Phone: [employer] Work Phone: Start: 04-28-2024 End: 04-29-2024 ambulatory IRAJ DUBOIS Facility:[facility] Start: 04-28-2024 Encounter for other preprocedural examination EVIE BLANK [employer] Start: 04-28-2024 End: 04-29-2024 Office consultation new/estab patient 80 min Simon Packer MD [facility] Comment on above: Neck mass (Primary D x); Warthin's tumor; Oropharyngeal mass Start: 04-28-2024 End: 04-29-2024 ambulatory IRAJ DUBOIS Facility:[facility] Start: 04-17-2024 End: 04-17-2024 ambulatory UNKNOWN PROVIDER Facility:[facility] Start: 04-17-2024 End: 04-17-2024 Subsequent hospital visit by physician [facility] Comment on above: Neck mass Start: 04-13-2024 End: 04-13-[address] Iraj Dubois MD -Cat Scan, [facility] Work Phone: Start: 04-13-2024 End: 04-13-2024 ambulatory Iraj Dubois Facility:[facility] Start: 01-07-2024 End: 01-07-2024 ambulatory Bulmaro Curtis Facility:[facility] Start: 07-31-2023 End: 07-31-[address] Bulmaro Curtis Work Phone: [facility] Pulmonary Medicine Work Phone: Start: 07-29-2023 End: 07-29-[address] Bulmaro Curtis Work Phone: [facility] Work Phone: Start: 07-29-2023 End: 07-29-[address] Bulmaro Curtis Work Phone: [facility] Work Phone: Start: 07-25-2023 End: 07-25-[address] Bulmaro Curtis Work Phone: [facility] Work Phone: Start: 07-25-2023 End: 07-25-[address] Bulmaro Curtis Work Phone: [facility]-Cat Scan, [facility] Work Phone: Start: 07-04-2023 End: 07-04-[address] Bulmaro Curtis Work Phone: [facility] Work Phone: Start: 07-04-2023 End: 07-04-[address] Bulmaro Curtis Work Phone: [facility]-Laboratory, Phy Office [facility] Start: 03-14-2023 End: 03-14-[address] Bulmaro Curtis Work Phone: [facility] Pulmonary Medicine Work Phone: Start: 01-03-2023 End: 01-03-[address] Bulmaro Curtis Work Phone: [facility] Work Phone: Start: 01-03-2023 End: 01-03-[address] [facility]mar[facility] Start: 12-17-2022 End: 12-17-2022 Emergency department patient visit Dr. Bulmaro Curtis Work Phone: [facility]-Emergency Department Work Phone: Start: 09-12-2022 End: 09-12-[address] [facility]mar[facility] Curtis [facility] Work Phone: Start: 08-18-2022 End: 08-18-[address] Bulmaro Curtis Work Phone: [facility] Work Phone: Start: 08-18-2022 End: 08-18-[address] Bumlaro Curtis Work Phone: [facility] Start: 06-28-2022 End: 06-28-[address] Bulmaro Curtis Work Phone: [facility], y Office 3rd Flr Start: 05-21-2022 End: 05-21-[address] Bulmaro Curtis [facility] Start: 05-15-2022 End: 05-15-[address] Bulmaro Curtis Work Phone: [facility] Work Phone: Start: 05-15-2022 End: 05-15-[address] Bulmaro Curtis Work Phone: [facility] Start: 05-08-2022 End: 05-08-[address] Bulmaro Curtis [facility] Start: 05-07-2022 End: 05-07-[address] Bulmaro Curtis Work Phone: [facility] Work Phone: Start: 05-07-2022 End: 05-07-[address] Bulmaro Curtis Work Phone: [facility] Start: 03-29-2022 End: 03-29-2022 ambulatory [facility] Work Phone: Start: 03-29-2022 End: 03-29-2022 Patient encounter procedure [facility]-Laboratory, Phy Office 3rd Flr Start: 12-28-2021 End: 12-28-2021 Patient encounter procedure [facility]-Laboratory, Phy Office 3rd Flr Start: 10-06-2021 End: 10-06-2021 Patient encounter procedure [facility]-MRI - [facility] Start: 06-22-2021 End: 06-22-[address] Bulmaro Curtis Work Phone: [facility]-Laboratory Start: 06-07-2021 End: 06-07-[address] Bulmaro Curtis Work Phone: [facility]-Pulmonary Medicine [facility] Start: 05-03-2021 End: 05-03-[address] Bulmaro Curtis Work Phone: [facility] Start: 03-13-2021 End: 03-13-[address] Bulmaro Curtis Work Phone: [facility] Orthopaedic Specia Procedures Date Procedure Procedure Detail Performing Clinician Start: 09-15-[address] Bulmaro pena MD Work Phone: Start: 09-15-2024 Serum inorganic phosphate measurement Dr. Bulmaro Curtis MD Work Phone: Start: 08-18-[address] Bulmaro pena MD Work Phone: Start: 08-18-2024 Serum inorganic phosphate measurement Dr. Bulmaro Curtis MD Work Phone: Start: 08-10-[address] Bulmaro pena MD Work Phone: Start: 08-10-2024 Serum inorganic phosphate measurement Dr. Bulmaro Curtis MD Work Phone: Start: 08-03-[address] Bulmaro pena MD Work Phone: Start: 08-03-2024 Serum inorganic phosphate measurement Dr. Bulmaro Curtis MD Work Phone: Start: 07-20-2024 Vitamin D, 25-hydroxy measurement Dr. John Curtis MD Work Phone: Comment on above: Vitamin D StatusDeficiency: <20 ng/mL (5 0nmol/L)Insufficiency: 20-30 ng/mL (50-75 nmol/L)Sufficiency: 30-100 ng/mL (75-250 nmol/L)Toxicity: >100 ng/mL (>250 nmol/L) Start: 07-14-[address] Bulmaro Curtis MD Work Phone: Start: 07-09-2024 Plain chest X-ray Dr. Bulmaro Curtis MD Work Phone: Start: 07-09-2024 Implantation to cardiovascular system Dr. Bulmaro Curtis MD Work Phone: Start: 07-09-[address] Bulmaro Curtis MD Work Phone: Start: 07-06-2024 Plain chest X-ray Dr. Bulmaro Curtis MD Work Phone: Start: 07-02-2024 Plain chest X-ray Dr. Bulmaro Curtis MD Work Phone: Start: 07-02-[address] Bulmaro Curtis MD Work Phone: Start: 07-02-2024 Implantation to cardiovascular system Dr. Bulmaro Curtis MD Work Phone: Start: 07-02-[address] Bulmaro Curtis MD Work Phone: Start: 06-11-2024 alveoloplasty in conjunction with extractions - four or more teeth or tooth spaces, per quadrant Bev Almoemen DDS Work Phone: Start: 06-11-2024 Excision torus mandibularis Bev Sam en DDS Work Phone: Start: 06-11-2024 extraction, erupted tooth or exposed root (elevation and/or forceps removal) Bev Mckeon DDS Work Phone: Start: 05-08-2024 Level iv surg pathology gross&microscopic exam Simon Packer MD Work Phone: Start: 05-08-2024 End: 05-08-2024 LARYNGOSCOPY, DIRECT Simon Packer MD Work Phone: Start: 04-29-2024 Laryngoscopy flexible diagnostic Simon agosto MD Work Phone: Start: 04-28-2024 Blood count complete automated Evie Ma rkiv PIPEFITTER HELPER-EXTRUDER OPERATOR HELPER Work Phone: Start: 04-28-2024 Ecg routine ecg w/least 12 lds trcg only w/o i&r Evie Markiv PIPEFITTER HELPER-EXTRUDER OPERATOR HELPER Work Phone: Start: 04-17-2024 Radiology Comparison study - date and time Simon Packer MD Work Phone: Start: 04-13-2024 CT of soft tissues of neck with contrast Dr. Bulmaro Curtis MD Work Phone: Start: 07-29-2023 MRI of brain with contrast Dr. Bulmaro Curtis Work Phone: Start: 07-25-[address] Bulmaro Curtis Work Phone: Start: 08-18-2022 CT of chest without contrast Dr. Bulmaro franco Work Phone: Start: 05-15-2022 Plain chest X-ray Dr. Bulmaro Curtis Work Phone: Start: 05-15-2022 Plain chest X-ray Dr. Bulmaro Curtis Work Phone: Start: 05-15-2022 Biopsy/Inj or Needle Placement Dr. Bulmaro pena Work Phone: Start: 05-07-[address] Bulmaro Curtis Work Phone: Start: 10-06-2021 X-ray of eye for foreign body Start: 05-03-[address] Bulmaro Curtis Work Phone: Start: 03-13-2021 Plain X-ray of shoulder Dr. Bulmaro Curtis Work Phone: Plan of Treatment Date Care Activity Detail Author Start: 04-28-2025 Creatinine measurement Basic Metabolic Panel [facility] Start: 12-23-2024 Influenza vaccination Influenza Vaccine (#1) [facility] Start: 09-23-2024 End: 09-23-2024 ambulatory 09/23/2024 2:00 PM EDT [facility] Speech ENT [address] [place] [id number] Kristofer Anderson, [facility] [employer] [address] [place], [place] [id number] [facility] Speech ENT Start: 09-23-2024 End: 09-23-2024 Patient encounter procedure 09/23/2024 1:00 PM EDT Office Visit [facility] Otolaryngology (ENT) [address] [place] [id number] Simon Packer MD [address] [place] [id number] [facility] Otolaryngology (ENT) Start: 09-15-2024 Comprehensive metabolic 2000 panel - Serum or Plasma [facility] Start: 09-15-2024 Lactate dehydrogenase measurement [facility] Start: 09-15-2024 Magnesium measurement [facility] Start: 09-15-2024 Serum inorganic phosphate measurement [facility] Start: 09-15-2024 T4 free measurement [facility] Start: 09-15-2024 Thyroid stimulating hormone measurement [facility] Start: 09-15-2024 [facility] Start: 08-19-2024 End: 08-19-2024 ambulatory 08/19/2024 3:00 PM EDT [facility] Speech ENT [address] [place] [id number] Kristofer Anderson, CCC-MALTH[employer]ORER [address] [place] [address] [facility] Speech [facility]NT Start: 08-19-2024 End: 08-19-2024 Patient encounter procedure 08/19/2024 2:30 PM EDT Office Visit [facility] Otolaryngology (ENT) [address] [place], [place] [phone] Simon Packer MD [address] [place] [phone] [facility] Otolaryngology (ENT) Start: 08-18-2024 [facility] Start: 08-10-2024 [facility] Start: 07-21-2024 COVID-19 Vaccine (5 - Moderna risk season) COVID-19 Vaccine (5 - Moderna risk ) [facility] Start: 07-09-2024 Anesthesia access central venous circulation ANESTH VASCULAR ACCESS [facility] Start: 07-09-2024 Rpr ctr vad w/subq port/music therapy teacher ctr/prph insj sit REPAIR TUNNELED CV CATH [facility] Start: 07-09-2024 Patient discharge [facility] Start: 07-06-2024 Venous catheter care management [facility] Start: 07-06-2024 Venous catheter care management [facility] Start: 07-02-2024 Anesthesia access central venous circulation ANESTH VASCULAR ACCESS [facility] Start: 07-02-2024 Egd percutaneous placement gastrostomy tube EGD PLACE GASTROSTOMY TUBE [facility] Start: 07-02-2024 Insj tunneled ctr vad w/subq port age 6 yr/> INSERT TUNNELED CV CATH [facility] Start: 07-02-2024 Electrocardiographic procedure [facility] Start: 07-02-2024 Patient discharge [facility] Start: 06-29-2024 Patient referral [facility] Work Phone: Start: 05-26-2024 Patient referral [facility] Work Phone: Start: 04-16-2024 Welcome to Medicare Visit (G0402) Welcome to Medicare Visit (G0402) [facility] Start: 03-17-2024 COVID-19 Vaccine ( season) COVID-19 Vaccine ( season) [facility] Start: 07-05-2023 Hemoglobin A1c measurement Hemoglobin A1C [facility] Start: 12-17-2022 Anoscopy dx w/collj spec br/wa spx when prfrmd DIAGNOSTIC ANOSCOPY SPX [facility] Start: 05-15-2022 CORE NDL BX LNG/MED PERQ CORE NDL BX LNG/MED PERQ [facility] Start: 05-15-2022 Plain chest X-ray Chest Insp/Exp 2 View [facility] Start: 05-15-2022 XR Chest Views W inspiration and expiration [facility] Start: 05-15-2022 Following clinical pathway protocol [facility] Start: 05-15-2022 Catheterization of vein [facility] Start: 05-15-2022 Oxygen therapy [facility] Start: 05-15-2022 Patient discharge [facility] Start: 05-15-2022 Vital signs measurements [facility] Start: 09-29-2016 Abdominal aortic aneurysm screening Abdominal Aortic Aneurysm Imaging [facility] Start: 2011 Hepatitis B (HBV) Vaccine (optional start 60+ years) Hepatitis B (HBV) Vaccine (optional start 60+ years) [facility] Start: 09-29-1996 Screening for malignant neoplasm of colon [facility] Start: 09-29-1970 Hepatitis A (HAV) Vaccine (optional start 19+ years) Hepatitis A (HAV) Vaccine (optional start 19+ years) [facility] Start: 09-29-1969 Hepatitis C screening Hepatitis C Antibody [facility] Start: 09-29-1969 Tdap Booster Tdap Booster [facility] Start: 1951 Glaucoma screening Eye Exam [facility] Start: 1951 Lipid panel Lipid Profile [facility] Start: 1951 Urine screening for protein Urine Protein (microalbumin) [facility] Start: 1951 Diabetic foot examination Foot Exam [facility] Start: 1951 Screening for malignant neoplasm of colon Colonoscopy [facility] Alanine aminotransfe rase [Enzymatic activity/volume] in Serum or Plasma [facility] Albumin [Mass/volume ] in Serum or Plasma [facility] Alkaline phosphatase [Enzymatic activity/volume] in Serum or Plasma [facility] Anion gap in Serum or Plasma [facility] Bilirubin, total measurement [facility] BUN/Creatinine ratio [facility] Calcium [Mass/volume ] in Serum or Plasma [facility] Carbon dioxide, tota l [Moles/volume] in Central venous blood [facility] CBC W Auto Different ial panel - Blood [facility] CBC W Auto Different ial panel - Blood [facility] Comprehensive metabo lic 1999 panel - Serum or Plasma [facility] Comprehensive metabo lic 1999 panel - Serum or Plasma [facility] Creatinine [Mass/vol ume] in Serum or Plasma [facility] CT Chest [facility] CT Chest [facility] CT Chest [facility] Glucose [Mass/volume ] in Serum or Plasma [facility] Lactate dehydrogenas e measurement [facility] Magnesium measurement [facility] Measurement of renal function [facility] Patient Education [facility] Work Phone: Patient referral [facility] Work Phone: Potassium measurement [facility] Serum chloride measurement [facility] Serum inorganic phos phate measurement [facility] Sodium measurement [facility] T4 free measurement [facility] Thyroid stimulating hormone measurement [facility] Total protein measurement [facility] Urea nitrogen [Mass/ volume] in Serum or Plasma [facility] Immunizations Immunization Date Immunization Notes Care Provider Fa [facility] 01-21-2024 Pneumococcal conjuga te 20 valent (PCV20), polysaccharide [id number] conjugate, adjuvant, PF (RXQ=405) [facility] Abhay PIPEFITTER HELPER-[facility] Work Phone: [facility] 01-07-2024 influenza, seasonal, injectable [facility] Abhay PIPEFITTER HELPER-[facility] Work Phone: [facility] 01-07-2024 influenza virus vaccine, unspecified formulation Cindy Newell RN Work Phone: [facility] 01-24-2023 Respiratory syncytia l virus (RSV), vaccine, recombinant, protein subunit RSV prefusion F, adjuvant reconstituted, 0.5 mL, preservative free (VVN=382) Evie Markiv PIPEFITTER HELPER-EXTRUDER OPERATOR HELPER Work Phone: [facility] 01-03-2023 influenza, injectabl e, quadrivalent, contains preservative Evie Markiv PIPEFITTER HELPER-EXTRUDER OPERATOR HELPER Work Phone: [facility] 01-03-2023 Hemoglobin A1C Evie Markiv PIPEFITTER HELPER-EXTRUDER OPERATOR HELPER Work Phone: [facility] 12-22-2020 influenza, injectabl e, quadrivalent, contains preservative Evie Markiv PIPEFITTER HELPER-EXTRUDER OPERATOR HELPER Work Phone: [facility] 12-21-2019 influenza, injectabl e, quadrivalent, contains preservative Evie Markiv PIPEFITTER HELPER-EXTRUDER OPERATOR HELPER Work Phone: [facility] 08-20-2019 zoster vaccine recombinant Evie Markiv PIPEFITTER HELPER-EXTRUDER OPERATOR HELPER Work Phone: [facility] 06-19-2019 zoster vaccine recombinant Evie Markiv PIPEFITTER HELPER-EXTRUDER OPERATOR HELPER Work Phone: [facility] 12-16-2018 influenza, injectabl e, quadrivalent, contains preservative Evie Markiv PIPEFITTER HELPER-EXTRUDER OPERATOR HELPER Work Phone: [facility] 11-25-[address] Bulmaro Curtis Work Phone: [facility] 11-25-2018 influenza, seasonal, injectable, preservative free Evie Markiv PIPEFITTER HELPER-EXTRUDER OPERATOR HELPER Work Phone: [facility] 12-19-2016 influenza, high dose seasonal, preservative-free Evie Markiv PIPEFITTER HELPER-EXTRUDER OPERATOR HELPER Work Phone: [facility] 02-03-2009 novel [id number], preservative-free, injectable Evie Markiv PIPEFITTER HELPER-EXTRUDER OPERATOR HELPER Work Phone: [facility] Payers Date Payer Category Payer Dental --Stand Alone DENTAL-[employer] [id number] 2024 Unknown [id number] 2024 Medicare FFS MEDICARE [id number] 2024 Self-pay [id number] 2021 Commercial Indemnity [facility] [id number] 2021 Unknown [id number] 2016 Medicare [id number] 1951 [id number] 2.16.840.1.037296.3.579.2.7 32 -195 Unknown [id number] 2.16.840.1.060260.3.579.2.7 32 -195 Unknown [id number] 2.16.840.1.835903.3.579.2.7 32 -195 Unknown [id number] 2.16.840.1.293279.3.579.2.7 32 - Unknown [id number] 2.16.840.1.856409.3.579.2.7 32 1950 Unknown [id number] 2.16.840.1.114547.3.579.2.7 32 1950 Unknown [id number] 2.16.840.1.742926.3.579.2.7 32 1950 Unknown [id number] 2.16.840.1.476993.3.579.2.7 32 1950 Unknown [id number] 2.16.840.1.627804.3.579.2.7 32 1950 Unknown [id number] 2.16.840.1.971047.3.579.2.7 32 1950 Unknown [id number] 2.16.840.1.534497.3.579.2.7 32 195 Unknown [id number] 2.16.840.1.266684.3.579.2.7 32 1950 Unknown [id number] 2.16.840.1.466658.3.579.2.7 32 Unknown [id number] Unknown [id number] 2.16.840.1.386212.3.579.2.4 62 Unknown [id number] 2.16.840.1.425632.3.579.2.4 62 Unknown [id number] 2.16.840.1.654520.3.579.2.4 62 Unknown [id number] 2.16.840.1.173997.3.579.2.4 62 Unknown [id number] 2.16.840.1.789547.3.579.2.4 62 Unknown [id number] 2.16.840.1.909371.3.579.2.4 62 Unknown [id number] 2.16.840.1.389171.3.579.2.4 62 Unknown [id number] 2.16.840.1.165052.3.579.2.4 62 Unknown [id number] 2.16.840.1.501403.3.579.2.4 62 Unknown [id number] 2.16.840.1.152308.3.579.2.4 62 Unknown [id number] 2.16.840.1.200340.3.579.2.4 62 Unknown [id number] 2.16.840.1.078559.3.579.2.4 62 Unknown [id number] 2.16.840.1.962761.3.579.2.4 62 Unknown [id number] 2.16.840.1.936689.3.579.2.4 62 Unknown [id number] 2.16.840.1.863976.3.579.2.4 62 Unknown [id number] 2.16.840.1.816603.3.579.2.4 62 Unknown [id number] 2.16.840.1.840039.3.579.2.4 62 Unknown [id number] 2.16.840.1.604669.3.579.2.4 62 Unknown [id number] 2.16.840.1.464417.3.579.2.4 62 Unknown [id number] 2.16.840.1.453251.3.579.2.4 62 Unknown [id number] 2.16.840.1.805792.3.579.2.4 62 Unknown [id number] 2.16.840.1.475276.3.579.2.4 62 Unknown [id number] 2.16.840.1.292261.3.579.2.4 62 Unknown [id number] 2.16.840.1.031857.3.579.2.4 62 Unknown [id number] 2.16.840.1.853737.3.579.2.4 62 Unknown [id number] 2.16.840.1.851886.3.579.2.4 62 Unknown [id number] 2.16.840.1.030071.3.579.2.4 62 Unknown [id number] 2.16.840.1.579072.3.579.2.4 62 Unknown [id number] 2.16.840.1.126676.3.579.2.4 62 Unknown [id number] 2.16.840.1.228384.3.579.2.4 62 Unknown [id number] 2.16.840.1.253601.3.579.2.4 62 Unknown [id number] 2.16.840.1.373510.3.579.2.4 62 Unknown [id number] 2.16.840.1.507383.3.579.2.4 62 Unknown [id number] 2.16.840.1.621560.3.579.2.4 62 Unknown [id number] 2.16.840.1.385964.3.579.2.4 62 Unknown [id number] 2.16.840.1.581341.3.579.2.4 62 Unknown [id number] 2.16.840.1.032197.3.579.2.4 62 Unknown [id number] 2.16.840.1.004925.3.579.2.4 62 Unknown [id number] 2.16.840.1.467894.3.579.2.4 62 Unknown [id number] 2.16.840.1.261988.3.579.2.4 62 Social History Date Type Detail Facility Start: 06-07-2021 End: 03-14-2023 Tobacco smoking status NHIS Unknown if ever smoked [facility] Start: 05-04-2019 Occasional [facility] Start: 05-04-2019 None [facility] Start: 05-04-2019 Spouse/ Significant Other [facility] Start: 05-04-2019 Cigarettes [facility] Start: 1950 Sex Assigned At Male [facility] Start: 04-28-2024 End: 06-22-2024 Tobacco smoking status NHIS Ex-smoker (finding) [facility] Start: 04-16-2024 End: 07-02-2024 Sex Male (finding) [facility] History of tobacco use [facility] of tobacco use [facility] Start: 04-28-2024 Tobacco use and exposure Smokeless tobacco non-user [facility] Start: 04-29-2024 End: 05-11-2024 Alcoholic beverage intake Ex-drinker (finding) [facility] Start: 04-28-2024 End: 04-29-2024 History of Social function [facility] Start: 04-28-2024 End: 04-29-2024 [facility] Utilities [facility] In the past 12 month s has the electric, gas, oil, or water [employer] threatened to shut off services in your home? No [facility] Within the last year , have you been afraid of your partner or ex-partner? No [facility] Do you belong to any clubs or organizations such as zoroastrianism groups, unions, fraternal or athletic groups, or school groups? Yes [facility] Are you now , , , , never or living with a partner? [facility] Do you feel stress - tense, restless, nervous, or anxious, or unable to sleep at night because your mind is troubled all the time - these days [OSQ] Not at all [facility] (I/We) worried wheth er (my/our) food would run out before (I/we) got money to buy more. Never true [facility] Start: 04-29-2024 Education 12 [facility] Start: 1950 Sex assigned at Not on file [facility] Start: 04-29-2024 End: 05-11-2024 Details of drug misuse behavior Misused drugs in past (finding) [facility] Medical Equipment Procedure Code Equipment Code Equipment Origin al Text Equipment Identifier Dates Insertion, vascular access port ([id number]) Vascular port/catheter [id number] FDA Start: 07-02-2024 Insertion, vascular access port ([id number]) Vascular port/catheter [id number] FDA Start: 07-09-2024 EGD, with monitored anesthesia care Gastrostomy tube kit, medicated [id number] FDA Start: 07-02-2024 Goals Date Patient Goal Desired Activity /State Mental Status Date Assessment Result Facility 07-31-2024 Cognitive function Voice/Name [facility] Work Phone: 07-09-2024 Cognitive function Voice/Name [facility] Work Phone: 07-02-2024 Cognitive function Level Of Cons ciousness Awake;Alert;Appropriate [facility] Work Phone: 07-02-2024 Cognitive function Voice/Name [facility] Work Phone: 05-15-2022 Cognitive function Awake;Alert;Appropriat e [facility] Work Phone: Clinical Notes 04-28-2024 to 08-18-2024 Telephone Encounter - Cindy Newell RN - 08/18/2024 3:13 PM EDTTelephone Encounter - Cindy Newell RN - 08/18/2024 3:13 PM EDT Note Date & Type Note Facility 08-18-2024 Telephone encount er Note Reached patient, who cancelled follow up for 08/16. Patient states he has 2 days left of radiation and is experiencing a lot of burning, so he cancelled. He is re-scheduled for 6 weeks from now along with speech, since he is finishing treatment. 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 He is advised to continue with skin creams and mouth rinses as directed by his Radiation Oncologist. He acknowledges understanding. Cindy Newell RN [facility] Work Phone: 08-18-2024 Miscellaneous Notes Formattin g of this note might be different from the original. Reached patient, who cancelled follow up for 08/16. Patient states he has 2 days left of radiation and is experiencing a lot of burning, so he cancelled. He is re-scheduled for 6 weeks from now along with speech, since he is finishing treatment. 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 He is advised to continue with skin creams and mouth rinses as directed by his Radiation Oncologist. He acknowledges understanding. Cindy Newell RN documented in this encounter [facility] 08-18-2024 Progress note [facility] 08-18-2024 Progress note Note Date/Time August 18, 2024 9:13am [facility] [address] [address] OFFICE VISIT Date of Service: 08/18/24 0834 MR#: [id number] Acct: [id number] Name: ROBERT RON Rep #: [id number] : 1950 From: Franco Pérez MD Age/Sex: 73/M Location: [facility] Status: Signed HPI Subjective Date of Service 08/18/24 Chief Complaint Comes for chemotherapy. History of Present Illness 73-year-old man with history of left-sided parotid tumor diagnosed in 2013, presented with right neck swelling, had CT of the neck on 04/13/2024 which showed3.3 right base of tongue mass, right parotid necrotic node, multiple enlarged nodes in the right side of the neck 3 cm level II, 3.5 cm level III node. He was referred to [facility], had ENT evaluation with biopsy on 05/14/2024, was found to have friable ulcerative papillomatous lesion at the right/central base of tongue pathology showed invasive poorly differentiated squamous cell carcinoma, p16 positive. PET CT scan on 05/22/2024 showed hypermetabolic central base of tongue mass, hypermetabolic right cervical lymphadenopathy with no metabolic evidence of distant metastasis. He was diagnosed with Right oropharyngeal, base of tongue cancer, p16 positive, tumor size 3.3 cm, level II and III nodes, right parotid node, stage I(cT2 cN1 cM0). Underwent dental extractions on 06/11/24. Had Port and PEG placed on 07/02/2024. Started Chemotherapy-Taxol/Carboplatin with Radiation on 07/06/2024. C5 weekly chemotherapy was given on 08/10/2024 because of low PLT. Comes for C6. Feels well, has pain in the neck, rashes on the forearms are stable, nasal bleed hasimproved after cauterization . [facility] Medical History Encounter for education Wears glasses Edentulous High cholesterol Injury of head and neck History of hiatal hernia CPAP (continuous positive airway pressure) dependence Shortness of breath on exertion Former smoker History of edema History of echocardiogram COPD (chronic obstructive pulmonary disease) Tongue cancer Hyperglycemia Essential hypertension Hypoxia Saddle pulmonary embolus Surgical History History of vascular access device History of surgery History of esophagogastroduodenoscopy (EGD) History of colonoscopy History of appendectomy History of tonsillectomy Cataracts, both eyes H/O parotidectomy Family History Father Heart disease Mother Heart disease Lung disease Grandmother Cancer Grandfather Cancer Other Diabetes Social History Smoking Status: Former smoker how long ago did patient quit smokin second hand exposure: Yes Intake Vital Signs 06/29/24 10:27 08/18/24 08:37 Height 6 ft 2 in 6 ft 2 in Weight: 123.916 kg BMI 35.0 BP 130/74 H Blood Pressure Location Lt brachial Position Sitting Respiration 18 Pulse 74 Pulse Source Monitor Temp 97.1 F L Temperature Source Temporal Artery Pulse Oximetry (%) 98 Oxygen Delivery Method room air Intake Is patient in pain?: Yes (neck) Pain scale (1-10): 9 Allergies Sulfa (Sulfonamide Antibiotics) Allergy (Verified 08/18/24 08:40) Rash Medications ?Medication ?Instructions ?Recorded ?Confirmed ?Type atorvastatin 40 mg tablet 40 mg PO QHS 05/04/19 History cholecalciferol (vitamin D3) 25 1,000 unit PO DAILY foster pplement 05/04/19 08/18/24 History mcg (1,000 unit) tablet rivaroxaban 15 mg tablet 20 mg PO QHS 11/30/21 History citalopram 20 mg tablet (Celexa) 20 mg PO QHS 05/08/22 08/18/24 History budesonide 160 mcg-glycopyr 9 2 inh inhalation BID #10 .7 grams 07/31/23 08/18/24 Rx mcg-formot 4.8 mcg/actuation HFA inhaler (Breztri Aerosphere) cetirizine 10 mg capsule (Zyrtec) 10 mg PO DAILY PRN a llergy symptoms 07/31/23 08/18/24 History fluticasone furoate 27.5 2 spray intranasal DAILY PRN 07/31/23 08/18/24 History mcg/actuation nasal allergy symptoms spray,suspension (Flonase Sensimist) hydrochlorothiazide 12.5 mg tablet 12.5 mg PO QHS 11/1508/18/24 History valsartan 320 mg tablet 320 mg PO QHS 07/31/2308/18 History acetaminophen 500 mg capsule 500 mg PO Q6H PRN pain 08/18/24 History acetaminophen 300 mg-codeine 30 mg 1 - 2 tab PO Q6H OR N PRN pain 06/22/24 08/18/24 History tablet ibuprofen 600 mg tablet 600 mg PO Q6H PRN PRN pain 0 06/22/24 08/18/24 History lidocaine-prilocaine 2.5 %-2.5 % 1 applic topical ONCE PRN port 06/29/24 08/18/24 Rx topical cream access 30 days #30 grams ondansetron 8 mg disintegrating 8 mg PO Q8H PRN nausea and 06/29/24 08/18/24 Rx tablet vomiting #30 tabs albuterol sulfate 90 mcg/actuation 2 puff inhalation Q 4H PRN 07/07/24 08/18/24 Rx aerosol inhaler shortness of breath or wheez ing #1 ea MAGIC MOUTH WASH (BMX) 180 mL 15 ml PO .qid PRN pain # 180 mL 07/21/24 08/18/24 Rx suspension oxycodone 5 mg capsule 5 mg PO TID PRN pain 4 weeks #90 08/05/24 08/18/24 Rx caps Have you fallen in the past year?: No Central Venous Access Central Venous Access: Yes Port/PICC: Port (left chest) Laboratory Tests 07/06/24 07/20/24 07/27/24 08:07 08:10 08:10 WBC 8.5 5.4 3.2 L Hgb 14.1 13.6 13.0 Hct 43.2 41.3 39.3 L Plt Count 162 164 103 L Absolute Neuts (auto) 6.2 4.1 2.3 Sodium 138 Potassium 4.3 Chloride 103 Carbon Dioxide 23.2 BUN 20 H Creatinine 1.28 H Glucose 214 H Calcium 9.9 Total Bilirubin 1.06 AST 22 ALT 21 Alkaline Phosphatase 120 Total Protein 7.4 Albumin 4.0 Globulin 3.3 08/03/24 08/10/24 08/18/24 07:56 07:55 08:06 WBC 2.5 L 3.7 L 2.3 L Hgb 12.5 L 12.5 L 12.0 L Hct 37.8 L 38.0 L 36.2 L Plt Count 72 L 98 L 108 L Absolute Neuts (auto) 1.8 L 2.9 1.7 L Sodium Potassium Chloride Carbon Dioxide BUN Creatinine Glucose Calcium Total Bilirubin AST ALT Alkaline Phosphatase Total Protein Albumin Globulin Exam Physical Exam Const alert, oriented x3 and no apparent distress HEENT normocephalic, external ears normal and external nose normal HEENT Narrative: + Edentulous. + erythema in the throat and soft palate better than before. Eyes PERRL, EOMs intact bilaterally and conjunctivae normal Neck Neck Narrative: +R parotid, upper jugular level II and III nodes not visible.. Chest Chest Narrative: +Port L IC area. Resp normal respiratory effort and clear to auscultation bilaterally Cardio regular rate, regular rhythm, S1 normal heart sound, S2 normal heart sound and no murmurs GI GI Narrative: +Peg-tube in epigastric area. no CVA tenderness Back/Spine thoracic and lumbar spine normal to inspection Extremity Extremity Narrative: +compression socks Skin Skin Narrative: +papular erythematous rash R & L forearms. 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 Due for C 6 weekly chemotherapy. Counts show PLT 108K. Ok to proceed with C6. Plan: To proceed with C6 weekly Taxol and Carboplatin. (2) Chemotherapy management, encounter for: Status: Acute Comment: Comes for C6. Counts show PLT 108K, OK for chemotherapy. He wants to continue therapy. Plan: To proceed with C6 weekly Taxol and Carboplatin. (3) Oral mucositis: Status: Acute Plan: To use mouthwash, pain medication.. (4) Rash: Status: Acute Comment: Due to chemotherapy most likely Taxol. Plan: To apply Hydrocortisone ointment (5) Epistaxis: Status: Acute Plan: To f/u with ENT for cauterization. (6) Radiation-induced dermatitis: Status: Acute Plan: To continue skin care. Clinical Quality Measures Falls Risk Screening/Assistive Devices Have you fallen in the past year?: No 08/18/24 0913 <Electronically signed by Franco Enriquez> Date _ Franco Pérez MD Cosigner Signature: Date (if applicable) CC: Dr. Bulmaro Curtis MD ~ [facility] Work Phone: 1(146) 967-426405-21-2025 [facility] [address] [place] [address] OFFICE VISIT Date of Service: 08/12/24 1302 MR#: [id number] Acct: [id number] Name: ROBERT RON Rep #: [id number] : 1950 From: Cipriano Vinita delgado DO Age/Sex: 73/M [place] [facility] [place]: Signed Intake Vital Signs 06/29/24 10:27 08/10/24 09:35 08/12/24 13:05 Height 6 ft 2 in 6 ft 2 in 6 ft 2 in Weight: 273 lb 6 oz BMI 35.1 BP 130/85 H Blood Pressure Location Lt brachial Position Sitting Respiration 18 Pulse 90 Pulse Source Monitor Temp 97.0 F L Temperature Source Temporal Artery Pulse Oximetry (%) 92 Oxygen Delivery Method room air Intake Visit Reasons: OTV Is patient in pain?: Yes (NECK) Pain scale (1-10): 9 Allergies Sulfa (Sulfonamide Antibiotics) Allergy (Verified 08/12/24 13:05) Rash Medications ?Medication ?Instructions ?Recorded ?Confirmed ?Type atorvastatin 40 mg tablet 40 mg PO QHS 05/04/19 History cholecalciferol (vitamin D3) 25 1,000 unit PO DAILY foster pplement 05/04/19 08/12/24 History mcg (1,000 unit) tablet rivaroxaban 15 mg tablet 20 mg PO QHS 11/30/21 History citalopram 20 mg tablet (Celexa) 20 mg PO QHS 05/08/22 08/12/24 History budesonide 160 mcg-glycopyr 9 2 inh inhalation BID #10 .7 grams 07/31/23 08/12/24 Rx mcg-formot 4.8 mcg/actuation HFA inhaler (Breztri Aerosphere) cetirizine 10 mg capsule (Zyrtec) 10 mg PO DAILY PRN a llergy symptoms 07/31/23 08/12/24 History fluticasone furoate 27.5 2 spray intranasal DAILY PRN 07/31/23 08/12/24 History mcg/actuation nasal allergy symptoms spray,suspension (Flonase Sensimist) hydrochlorothiazide 12.5 mg tablet 12.5 mg PO QHS 05/11/1508/12/24 History valsartan 320 mg tablet 320 mg PO QHS 07/31/2308/12 History acetaminophen 500 mg capsule 500 mg PO Q6H PRN pain 08/12/24 History acetaminophen 300 mg-codeine 30 mg 1 - 2 tab PO Q6H OR N PRN pain 06/22/24 08/12/24 History tablet ibuprofen 600 mg tablet 600 mg PO Q6H PRN PRN pain 0 06/22/24 08/12/24 History lidocaine-prilocaine 2.5 %-2.5 % 1 applic topical ONCE PRN port 06/29/24 08/12/24 Rx topical cream access 30 days #30 grams ondansetron 8 mg disintegrating 8 mg PO Q8H PRN nausea and 06/29/24 08/12/24 Rx tablet vomiting #30 tabs albuterol sulfate 90 mcg/actuation 2 puff inhalation Q 4H PRN 07/07/24 08/12/24 Rx aerosol inhaler shortness of breath or wheez ing #1 ea MAGIC MOUTH WASH (BMX) 180 mL 15 ml PO .qid PRN pain # 180 mL 07/21/24 08/12/24 Rx suspension oxycodone 5 mg capsule 5 mg PO TID PRN pain 4 weeks #90 08/05/24 08/12/24 Rx caps Have you fallen in the past year?: No PFSH PFSH Medical History Encounter for education Wears glasses Edentulous High cholesterol Injury of head and neck History of hiatal hernia CPAP (continuous positive airway pressure) dependence Shortness of breath on exertion Former smoker History of edema History of echocardiogram COPD (chronic obstructive pulmonary disease) Tongue cancer Hyperglycemia Essential hypertension Hypoxia Saddle pulmonary embolus Home Medications ?Medication ?Instructions ?Recorded ?Last Taken ?Type atorvastatin 40 mg tablet 40 mg PO QHS 05/04/19 History cholecalciferol (vitamin D3) 25 1,000 unit PO DAILY foster pplement 05/04/19 05/04/19 History mcg (1,000 unit) tablet rivaroxaban 15 mg tablet 20 mg PO QHS 11/30/21 History citalopram 20 mg tablet (Celexa) 20 mg PO QHS 05/08/22 Unknown History budesonide 160 mcg-glycopyr 9 2 inh inhalation BID #10 .7 grams 07/31/23 Unknown Rx mcg-formot 4.8 mcg/actuation HFA inhaler (Breztri Aerosphere) cetirizine 10 mg capsule (Zyrtec) 10 mg PO DAILY PRN a llergy symptoms 07/31/23 Unknown History fluticasone furoate 27.5 2 spray intranasal DAILY PRN 07/31/23 Unknown History mcg/actuation nasal allergy symptoms spray,suspension (Flonase Sensimist) hydrochlorothiazide 12.5 mg tablet 12.5 mg PO QHS 11/15 Unknown History valsartan 320 mg tablet 320 mg PO QHS 07/31/23 Unkno wn History acetaminophen 500 mg capsule 500 mg PO Q6H PRN pain 07/01/24 History acetaminophen 300 mg-codeine 30 mg 1 - 2 tab PO Q6H OR N PRN pain 06/22/24 Unknown History tablet ibuprofen 600 mg tablet 600 mg PO Q6H PRN PRN pain 0 06/22/24 Unknown History lidocaine-prilocaine 2.5 %-2.5 % 1 applic topical ONCE PRN port 06/29/24 Unknown Rx topical cream access 30 days #30 grams ondansetron 8 mg disintegrating 8 mg PO Q8H PRN nausea and 06/29/24 Unknown Rx tablet vomiting #30 tabs albuterol sulfate 90 mcg/actuation 2 puff inhalation Q 4H PRN 07/07/24 Unknown Rx aerosol inhaler shortness of breath or wheez ing #1 ea MAGIC MOUTH WASH (BMX) 180 mL 15 ml PO .qid PRN pain # 180 mL 07/21/24 Unknown Rx suspension oxycodone 5 mg capsule 5 mg PO TID PRN pain 4 weeks #90 08/05/24 Unknown Rx caps Allergy/AdvReac Type Severity Reaction Status Date / Time Sulfa (Sulfonamide Allergy Rash Verified 08/12/24 13:05 Antibiotics) Family History Father Heart disease Mother Heart disease Lung disease Grandmother Cancer Grandfather Cancer Other Diabetes Surgical History History of vascular access device History of surgery History of esophagogastroduodenoscopy (EGD) History of colonoscopy History of appendectomy History of tonsillectomy Cataracts, both eyes H/O parotidectomy Social History Smoking Status: Former smoker how long ago did patient quit smokin second hand exposure: Yes Diagnosis: Robert Ron is a 73 year-old male diagnosed with AJCC 8th edition clinical stage I (cT2 cN1 M0) p16 positive invasive squamous of carcinoma of the BOT s/p CT neck with contrast (04/13/2024), direct laryngoscopy with biopsy (05/08/2024), and PET scan (05/22/2024). Plan: Plan was made to complete definitive chemoradiation consisting of 6996 cGy delivered to the base oftongue primary and right neck adenopathy, 5940 cGy to the remaining base of tongue, and right neck and 5412 cGy delivered to the left neck and bilateral supraclavicular fossa Treatment Data: Treatment Site: BOT / neck Current total dose/Total dose planned: 5936 cGy / 6996 cGy Fraction number: Chemotherapy: weekly cisplatin (held 08/03) Subjective: Pain: 7-9/10, oxycodone 10 mg tid Fatigue: moderate ENT: severe mucositis. severe odynophagia, no dysphagia. decreased taste, moderate xerostomia, increased thick mucus Skin: moderate erythema, itchiness, dry desquamation, no rash Nutrition/weight: Weight decreased some. Soft diet by mouth. TF supplement Rinses: doing baking soda/salt rises. No doing green tea rinses Respiratory: no cough, SOB Objective: Weight: 07/08: 303 lbs 1 oz, 07/15: 295 lbs 7 oz, 07/22: 289 lbs 9 oz, 07/29: 278 lbs, 08/05: 276 lbs 8 oz, 08/12: 273 lbs 6 oz Physical Exam: Gen: NAD ENT: severe mucositis. No thrush or visualized lesions in the oral cavity or oropharynx. Gums appear well healed Skin: moderate to severe erythema, mild itchiness, patchy dry desquamation, somemoist desquamation behind right ear. Improved right adenopathy. Labs: 08/10/2024: WBC 3.7, ANC 2.9, plt 98 Assessment & Plan Assessment/Plan (1) Primary squamous cell carcinoma of base of tongue: PLAN: Plan Assessment: Tolerating treatment well overall.? I reviewed and approved all treatment associated imaging. pain at 7-12/02, oxycodone 10 mg tid, dulcolax/senna weight loss: continue supplements and soft diet, will increase, nutrition following, going to startTF Dry mouth: water/biotene mucus: mucinex skin: grade 2, some itchiness, aquaphor for patch of moist desquamation, darlin decreased platelets, held chemo last week ? Plan: Continue treatment as planned.? I have reviewed potential treatment associated toxicities as well as timing for resolution and management. Skin: Skin care reviewed, continue lotion at least bid, hydrocortisone for itchiness Rinses: recommended baking soda/salt rinses 4-6/d, green tea rinses 2-3/d Follow up next week or sooner if needed. ? Thank you for allowing me to participate in the management and care of your patient. If I may answer any questions in the interim, please do not hesitate tocontact me at any time. ? Cipriano Layne DO, MS Piece Worker, Department of Radiation Oncology [facility] Coding Level of Care Code Radiation Tx Management x5 Diagnoses Primary squamous cell carcinoma of base of tongue C01 08/12/24 1326 DO> Date _ Cipriano Jhaveriignkirill Signature: Date (if applicable) CC: ~ [facility]05-21-2025 Progress note Author Cipriano Layne [facility] Note Date/Time August 12, 2024 1:26p m [facility] [place] [address] OFFICE VISIT Date of Service: 08/12/24 1302 MR#: [id number] Acct: [id number] Name: ROBERT RON Rep #: [id number] : 1950 From: Cipriano delgado DO Age/Sex: 73/M [place] [facility] [place]: Signed Intake Vital Signs 06/29/24 10:27 08/10/24 09:35 08/12/24 13:05 Height 6 ft 2 in 6 ft 2 in 6 ft 2 in Weight: 273 lb 6 oz BMI 35.1 BP 130/85 H Blood Pressure Location Lt brachial Position Sitting Respiration 18 Pulse 90 Pulse Source Monitor Temp 97.0 F L Temperature Source Temporal Artery Pulse Oximetry (%) 92 Oxygen Delivery Method room air Intake Visit Reasons: OTV Is patient in pain?: Yes (NECK) Pain scale (1-10): 9 Allergies Sulfa (Sulfonamide Antibiotics) Allergy (Verified 08/12/24 13:05) Rash Medications ?Medication ?Instructions ?Recorded ?Confirmed ?Type atorvastatin 40 mg tablet 40 mg PO QHS 05/04/19 History cholecalciferol (vitamin D3) 25 1,000 unit PO DAILY foster pplement 05/04/19 08/12/24 History mcg (1,000 unit) tablet rivaroxaban 15 mg tablet 20 mg PO QHS 11/30/21 History citalopram 20 mg tablet (Celexa) 20 mg PO QHS 05/08/22 08/12/24 History budesonide 160 mcg-glycopyr 9 2 inh inhalation BID #10 .7 grams 07/31/23 08/12/24 Rx mcg-formot 4.8 mcg/actuation HFA inhaler (Breztri Aerosphere) cetirizine 10 mg capsule (Zyrtec) 10 mg PO DAILY PRN a llergy symptoms 07/31/23 08/12/24 History fluticasone furoate 27.5 2 spray intranasal DAILY PRN 07/31/23 08/12/24 History mcg/actuation nasal allergy symptoms spray,suspension (Flonase Sensimist) hydrochlorothiazide 12.5 mg tablet 12.5 mg PO QHS 11/1508/12/24 History valsartan 320 mg tablet 320 mg PO QHS 07/31/2308/12 History acetaminophen 500 mg capsule 500 mg PO Q6H PRN pain 08/12/24 History acetaminophen 300 mg-codeine 30 mg 1 - 2 tab PO Q6H OR N PRN pain 06/22/24 08/12/24 History tablet ibuprofen 600 mg tablet 600 mg PO Q6H PRN PRN pain 0 06/22/24 08/12/24 History lidocaine-prilocaine 2.5 %-2.5 % 1 applic topical ONCE PRN port 06/29/24 08/12/24 Rx topical cream access 30 days #30 grams ondansetron 8 mg disintegrating 8 mg PO Q8H PRN nausea and 06/29/24 08/12/24 Rx tablet vomiting #30 tabs albuterol sulfate 90 mcg/actuation 2 puff inhalation Q 4H PRN 07/07/24 08/12/24 Rx aerosol inhaler shortness of breath or wheez ing #1 ea MAGIC MOUTH WASH (BMX) 180 mL 15 ml PO .qid PRN pain # 180 mL 07/21/24 08/12/24 Rx suspension oxycodone 5 mg capsule 5 mg PO TID PRN pain 4 weeks #90 08/05/24 08/12/24 Rx caps Have you fallen in the past year?: No PFSH PFSH Medical History Encounter for education Wears glasses Edentulous High cholesterol Injury of head and neck History of hiatal hernia CPAP (continuous positive airway pressure) dependence Shortness of breath on exertion Former smoker History of edema History of echocardiogram COPD (chronic obstructive pulmonary disease) Tongue cancer Hyperglycemia Essential hypertension Hypoxia Saddle pulmonary embolus Home Medications ?Medication ?Instructions ?Recorded ?Last Taken ?Type atorvastatin 40 mg tablet 40 mg PO QHS 05/04/19 History cholecalciferol (vitamin D3) 25 1,000 unit PO DAILY foster pplement 05/04/19 05/04/19 History mcg (1,000 unit) tablet rivaroxaban 15 mg tablet 20 mg PO QHS 11/30/21 History citalopram 20 mg tablet (Celexa) 20 mg PO QHS 05/08/22 Unknown History budesonide 160 mcg-glycopyr 9 2 inh inhalation BID #10 .7 grams 07/31/23 Unknown Rx mcg-formot 4.8 mcg/actuation HFA inhaler (Breztri Aerosphere) cetirizine 10 mg capsule (Zyrtec) 10 mg PO DAILY PRN a llergy symptoms 07/31/23 Unknown History fluticasone furoate 27.5 2 spray intranasal DAILY PRN 07/31/23 Unknown History mcg/actuation nasal allergy symptoms spray,suspension (Flonase Sensimist) hydrochlorothiazide 12.5 mg tablet 12.5 mg PO QHS 11/15 Unknown History valsartan 320 mg tablet 320 mg PO QHS 07/31/23 Unkno wn History acetaminophen 500 mg capsule 500 mg PO Q6H PRN pain 07/01/24 History acetaminophen 300 mg-codeine 30 mg 1 - 2 tab PO Q6H OR N PRN pain 06/22/24 Unknown History tablet ibuprofen 600 mg tablet 600 mg PO Q6H PRN PRN pain 0 06/22/24 Unknown History lidocaine-prilocaine 2.5 %-2.5 % 1 applic topical ONCE PRN port 06/29/24 Unknown Rx topical cream access 30 days #30 grams ondansetron 8 mg disintegrating 8 mg PO Q8H PRN nausea and 06/29/24 Unknown Rx tablet vomiting #30 tabs albuterol sulfate 90 mcg/actuation 2 puff inhalation Q 4H PRN 07/07/24 Unknown Rx aerosol inhaler shortness of breath or wheez ing #1 ea MAGIC MOUTH WASH (BMX) 180 mL 15 ml PO .qid PRN pain # 180 mL 07/21/24 Unknown Rx suspension oxycodone 5 mg capsule 5 mg PO TID PRN pain 4 weeks #90 08/05/24 Unknown Rx caps Allergy/AdvReac Type Severity Reaction Status Date / Time Sulfa (Sulfonamide Allergy Rash Verified 08/12/24 13:05 Antibiotics) Family History Father Heart disease Mother Heart disease Lung disease Grandmother Cancer Grandfather Cancer Other Diabetes Surgical History History of vascular access device History of surgery History of esophagogastroduodenoscopy (EGD) History of colonoscopy History of appendectomy History of tonsillectomy Cataracts, both eyes H/O parotidectomy Social History Smoking Status: Former smoker how long ago did patient quit smokin second hand exposure: Yes Diagnosis: Robert Ron is a 73 year-old male diagnosed with AJCC 8th edition clinical stage I (cT2 cN1 M0) p16 positive invasive squamous of carcinoma of the BOT s/p CT neck with contrast (04/13/2024), direct laryngoscopy with biopsy (05/08/2024), and PET scan (05/22/2024). Plan: Plan was made to complete definitive chemoradiation consisting of 6996 cGy delivered to the base of tongue primary and right neck adenopathy, 5940 cGy to the remaining base of tongue, and right neck and 5412 cGy delivered to the left neck and bilateral supraclavicular fossa Treatment Data: Treatment Site: BOT / neck Current total dose/Total dose planned: 5936 cGy / 6996 cGy Fraction number: Chemotherapy: weekly cisplatin (held 08/03) Subjective: Pain: 7-9/10, oxycodone 10 mg tid Fatigue: moderate ENT: severe mucositis. severe odynophagia, no dysphagia. decreased taste, moderate xerostomia, increased thick mucus Skin: moderate erythema, itchiness, dry desquamation, no rash Nutrition/weight: Weight decreased some. Soft diet by mouth. TF supplement Rinses: doing baking soda/salt rises. No doing green tea rinses Respiratory: no cough, SOB Objective: Weight: 07/08: 303 lbs 1 oz, 07/15: 295 lbs 7 oz, 07/22: 289 lbs 9 oz, 07/29: 278 lbs, 08/05: 276 lbs 8 oz, 08/12: 273 lbs 6 oz Physical Exam: Gen: NAD ENT: severe mucositis. No thrush or visualized lesions in the oral cavity or oropharynx. Gums appear well healed Skin: moderate to severe erythema, mild itchiness, patchy dry desquamation, somemoist desquamation behind right ear. Improved right adenopathy. Labs: 08/10/2024: WBC 3.7, ANC 2.9, plt 98 Assessment & Plan Assessment/Plan (1) Primary squamous cell carcinoma of base of tongue: PLAN: Plan Assessment: Tolerating treatment well overall.? I reviewed and approved all treatment associated imaging. pain at 7-/10, oxycodone 10 mg tid, dulcolax/senna weight loss: continue supplements and soft diet, will increase, nutrition following, going to start TF Dry mouth: water/biotene mucus: mucinex skin: grade 2, some itchiness, aquaphor for patch of moist desquamation, darlin decreased platelets, held chemo last week ? Plan: Continue treatment as planned.? I have reviewed potential treatment associated toxicities as well as timing for resolution and management. Skin: Skin care reviewed, continue lotion at least bid, hydrocortisone for itchiness Rinses: recommended baking soda/salt rinses 4-6/d, green tea rinses 2-3/d Follow up next week or sooner if needed. ? Thank you for allowing me to participate in the management and care of your patient. If I may answer any questions in the interim, please do not hesitate tocontact me at any time. ? Cipriano Layne DO, MS Piece Worker, Department of Radiation Oncology [facility] Coding Level of Care Code Radiation Tx Management x5 Diagnoses Primary squamous cell carcinoma of base of tongue C01 08/12/24 1326 <Electronically signed by Cipriano Layne DO> Date _ Cipriano Layne DO Cosigner Signature: Date (if applicable) CC: ~ [facility] Work Phone: [phone] [facility] [address] [place] [address] OFFICE VISIT Date of Service: 08/10/24 0845 MR#: [id number] Acct: [id number] Name: ROBERT RON Rep #: [id number] : 1950 From: Franco Pérez MD Age/Sex: 73/M Location: [facility] Status: Signed HPI Subjective Date of Service 08/10/24 Chief Complaint Comes for chemotherapy. History of Present Illness 73-year-old man with history of left-sided parotid tumor diagnosed in 2013, presented with right neck swelling, had CT of the neck on 04/13/2024 which showed3.3 right base of tongue mass, right parotid necrotic node, multiple enlarged nodes in the right side of the neck 3 cm level II, 3.5 cm level III node. He was referred to [facility], had ENT evaluation with biopsy on 05/14/2024, was found to have friable ulcerative papillomatous lesion at the right/central base of tongue pathology showed invasive poorly differentiated squamous cell carcinoma, p16 positive. PET CT scan on 05/22/2024 showed hy permetabolic central base of tongue mass, hypermetabolic right cervical lymphadenopathy with no metabolic evidence of distant metastasis. He was diagnosed with Right oropharyngeal, base of tongue cancer, p16 positive, tumor size 3.3 cm, level II and III nodes, right parotid node, stage I(cT2 cN1 cM0). Underwent dental extractions on 06/11/24. Had Port and PEG placed on 07/02/2024. Started Chemotherapy-Taxol/Carboplatin with Radiation on 07/06/2024. Come for C5 weekly chemotherapy which was held last week because PLT was 72K. Feels well, has pain in the throat, has developed some rashes on the forearms which is stable, getting L sided nasal bleed. [facility] Medical History Encounter for education Wears glasses Edentulous High cholesterol Injury of head and neck History of hiatal hernia CPAP (continuous positive airway pressure) dependence Shortness of breath on exertion Former smoker History of edema History of echocardiogram COPD (chronic obstructive pulmonary disease) Tongue cancer Hyperglycemia Essential hypertension Hypoxia Saddle pulmonary embolus Surgical History History of vascular access device History of surgery History of esophagogastroduodenoscopy (EGD) History of colonoscopy History of appendectomy History of tonsillectomy Cataracts, both eyes H/O parotidectomy Family History Father Heart disease Mother Heart disease Lung disease Grandmother Cancer Grandfather Cancer Other Diabetes Social History Smoking Status: Former smoker how long ago did patient quit smokin second hand exposure: Yes Intake Vital Signs 06/29/24 10:27 08/10/24 08:46 Height 6 ft 2 in 6 ft 2 in Weight: 124.398 kg BMI 35.2 BP 112/69 Blood Pressure Location Rt brachial Position Sitting Respiration 18 Pulse 68 Pulse Source Monitor Temp 97.2 F L Temperature Source Temporal Artery Pulse Oximetry (%) 97 Oxygen Delivery Method room air Intake Is patient in pain?: Yes (neck/throat) Pain scale (1-10): 7 Allergies Sulfa (Sulfonamide Antibiotics) Allergy (Verified 08/10/24 08:50) Rash Medications ?Medication ?Instructions ?Recorded ?Confirmed ?Type atorvastatin 40 mg tablet 40 mg PO QHS 05/04/19 History cholecalciferol (vitamin D3) 25 1,000 unit PO DAILY foster pplement 05/04/19 08/10/24 History mcg (1,000 unit) tablet rivaroxaban 15 mg tablet 20 mg PO QHS 11/30/21 History citalopram 20 mg tablet (Celexa) 20 mg PO QHS 05/08/22 08/10/24 History budesonide 160 mcg-glycopyr 9 2 inh inhalation BID #10 .7 grams 07/31/23 08/10/24 Rx mcg-formot 4.8 mcg/actuation HFA inhaler (Breztri Aerosphere) cetirizine 10 mg capsule (Zyrtec) 10 mg PO DAILY PRN a llergy symptoms 07/31/23 08/10/24 History fluticasone furoate 27.5 2 spray intranasal DAILY PRN 07/31/23 08/10/24 History mcg/actuation nasal allergy symptoms spray,suspension (Flonase Sensimist) hydrochlorothiazide 12.5 mg tablet 12.5 mg PO QHS 11/1508/10/24 History valsartan 320 mg tablet 320 mg PO QHS 07/31/2308/10 History acetaminophen 500 mg capsule 500 mg PO Q6H PRN pain 08/10/24 History acetaminophen 300 mg-codeine 30 mg 1 - 2 tab PO Q6H OR N PRN pain 06/22/24 08/10/24 History tablet ibuprofen 600 mg tablet 600 mg PO Q6H PRN PRN pain 0 06/22/24 08/10/24 History lidocaine-prilocaine 2.5 %-2.5 % 1 applic topical ONCE PRN port 06/29/24 08/10/24 Rx topical cream access 30 days #30 grams ondansetron 8 mg disintegrating 8 mg PO Q8H PRN nausea and 06/29/24 08/10/24 Rx tablet vomiting #30 tabs albuterol sulfate 90 mcg/actuation 2 puff inhalation Q 4H PRN 07/07/24 08/10/24 Rx aerosol inhaler shortness of breath or wheez ing #1 ea MAGIC MOUTH WASH (BMX) 180 mL 15 ml PO .qid PRN pain # 180 mL 07/21/24 08/10/24 Rx suspension oxycodone 5 mg capsule 5 mg PO TID PRN pain 4 weeks #90 08/05/24 08/10/24 Rx caps Have you fallen in the past year?: No Central Venous Access Central Venous Access: Yes Port/PICC: Port Laboratory Tests 07/06/24 07/20/24 07/27/24 08:07 08:10 08:10 WBC 8.5 5.4 3.2 L Hgb 14.1 13.6 13.0 Hct 43.2 41.3 39.3 L Plt Count 162 164 103 L Absolute Neuts (auto) 6.2 4.1 2.3 Sodium 138 Potassium 4.3 Chloride 103 Carbon Dioxide 23.2 BUN 20 H Creatinine 1.28 H Glucose 214 H Calcium 9.9 Total Bilirubin 1.06 AST 22 ALT 21 Alkaline Phosphatase 120 Total Protein 7.4 Albumin 4.0 Globulin 3.3 08/03/24 08/10/24 07:56 07:55 WBC 2.5 L 3.7 L Hgb 12.5 L 12.5 L Hct 37.8 L 38.0 L Plt Count 72 L 98 L Absolute Neuts (auto) 1.8 L 2.9 Sodium Potassium Chloride Carbon Dioxide BUN Creatinine Glucose Calcium Total Bilirubin AST ALT Alkaline Phosphatase Total Protein Albumin Globulin Exam Physical Exam Const alert, oriented x3 and no apparent distress HEENT normocephalic, external ears normal and external nose normal HEENT Narrative: + Edentulous. + erythema in the throat and soft palate. +Clot in L nostril Eyes PERRL, EOMs intact bilaterally and conjunctivae normal Neck Neck Narrative: +R parotid, upper jugular level II and III nodes decreased in size. Chest Chest Narrative: +Port L IC area. Resp normal respiratory effort and clear to auscultation bilaterally Cardio regular rate, regular rhythm, S1 normal heart sound, S2 normal heart sound and no murmurs GI GI Narrative: +Peg-tube in epigastric area. no CVA tenderness Back/Spine thoracic and lumbar spine normal to inspection Extremity Extremity Narrative: +compression socks Skin Skin Narrative: +papular erythematous rash R & L forearms. 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 Due for C 5 weekly chemotherapy. Counts show PLT 98K. Ok to proceed with C5. Plan: To proceed with C5 weekly Taxol and Carboplatin. (2) Chemotherapy management, encounter for: Status: Acute Comment: Comes for C5. Counts show PLT 98K, OK for chemotherapy. He wants to continue therapy. Plan: To proceed with C5 weekly Taxol and Carboplatin. (3) Oral mucositis: Status: Acute Plan: To use mouthwash, pain medication.. (4) Rash: Status: Acute Comment: Due to chemotherapy most likely Taxol. Plan: To apply Hydrocortisone ointment (5) Epistaxis: Status: Acute Plan: To f/u with ENT for cauterization. (6) Radiation-induced dermatitis: Status: Acute Plan: To continue skin care. Clinical Quality Measures Falls Risk Screening/Assistive Devices Have you fallen in the past year?: No 08/10/24 0927 D> Date _ Franco Pérez MD Cosigner Signature: Date (if applicable) CC: Dr. Bulmaro Curtis MD ~ [facility]05-19-2025 Progress note Author Franco Pérez [facility] Note Date/Time August 10, 2024 9:26a m [facility] [address] [address] OFFICE VISIT Date of Service: 08/10/24 0845 MR#: [id number] Acct: [id number] Name: ROBERT RON Rep #: [id number] : 1950 From: Franco Pérez MD Age/Sex: 73/M [place] [facility] [place] Status: Signed HPI Subjective Date of Service 08/10/24 Chief Complaint Comes for chemotherapy. History of Present Illness 73-year-old man with history of left-sided parotid tumor diagnosed in 2013, presented with right neck swelling, had CT of the neck on 04/13/2024 which showed3.3 right base of tongue mass, right parotid necrotic node, multiple enlarged nodes in the right side of the neck 3 cm level II, 3.5 cm level III node. He was referred to [facility], had ENT evaluation with biopsy on 05/14/2024, was found to have friable ulcerative papillomatous lesion at the right/central base of tongue pathology showed invasive poorly differentiated squamous cell carcinoma, p16 positive. PET CT scan on 05/22/2024 showed hypermetabolic central base of tongue mass, hypermetabolic right cervical lymphadenopathy with no metabolic evidence of distant metastasis. He was diagnosed with Right oropharyngeal, base of tongue cancer, p16 positive, tumor size 3.3 cm, level II and III nodes, right parotid node, stage I(cT2 cN1 cM0). Underwent dental extractions on 06/11/24. Had Port and PEG placed on 07/02/2024. Started Chemotherapy-Taxol/Carboplatin with Radiation on 07/06/2024. Come for C5 weekly chemotherapy which was held last week because PLT was 72K. Feels well, has pain in the throat, has developed some rashes on the forearms which is stable, getting L sided nasal bleed. [facility] Medical History Encounter for education Wears glasses Edentulous High cholesterol Injury of head and neck History of hiatal hernia CPAP (continuous positive airway pressure) dependence Shortness of breath on exertion Former smoker History of edema History of echocardiogram COPD (chronic obstructive pulmonary disease) Tongue cancer Hyperglycemia Essential hypertension Hypoxia Saddle pulmonary embolus Surgical History History of vascular access device History of surgery History of esophagogastroduodenoscopy (EGD) History of colonoscopy History of appendectomy History of tonsillectomy Cataracts, both eyes H/O parotidectomy Family History Father Heart disease Mother Heart disease Lung disease Grandmother Cancer Grandfather Cancer Other Diabetes Social History Smoking Status: Former smoker how long ago did patient quit smokin second hand exposure: Yes Intake Vital Signs 06/29/24 10:27 08/10/24 08:46 Height 6 ft 2 in 6 ft 2 in Weight: 124.398 kg BMI 35.2 BP 112/69 Blood Pressure Location Rt brachial Position Sitting Respiration 18 Pulse 68 Pulse Source Monitor Temp 97.2 F L Temperature Source Temporal Artery Pulse Oximetry (%) 97 Oxygen Delivery Method room air Intake Is patient in pain?: Yes (neck/throat) Pain scale (1-10): 7 Allergies Sulfa (Sulfonamide Antibiotics) Allergy (Verified 08/10/24 08:50) Rash Medications ?Medication ?Instructions ?Recorded ?Confirmed ?Type atorvastatin 40 mg tablet 40 mg PO QHS 05/04/19 History cholecalciferol (vitamin D3) 25 1,000 unit PO DAILY foster pplement 05/04/19 08/10/24 History mcg (1,000 unit) tablet rivaroxaban 15 mg tablet 20 mg PO QHS 11/30/21 History citalopram 20 mg tablet (Celexa) 20 mg PO QHS 05/08/22 08/10/24 History budesonide 160 mcg-glycopyr 9 2 inh inhalation BID #10 .7 grams 07/31/23 08/10/24 Rx mcg-formot 4.8 mcg/actuation HFA inhaler (Breztri Aerosphere) cetirizine 10 mg capsule (Zyrtec) 10 mg PO DAILY PRN a llergy symptoms 07/31/23 08/10/24 History fluticasone furoate 27.5 2 spray intranasal DAILY PRN 07/31/23 08/10/24 History mcg/actuation nasal allergy symptoms spray,suspension (Flonase Sensimist) hydrochlorothiazide 12.5 mg tablet 12.5 mg PO QHS 11/1508/10/24 History valsartan 320 mg tablet 320 mg PO QHS 07/31/2308/10 History acetaminophen 500 mg capsule 500 mg PO Q6H PRN pain 08/10/24 History acetaminophen 300 mg-codeine 30 mg 1 - 2 tab PO Q6H OR N PRN pain 06/22/24 08/10/24 History tablet ibuprofen 600 mg tablet 600 mg PO Q6H PRN PRN pain 0 06/22/24 08/10/24 History lidocaine-prilocaine 2.5 %-2.5 % 1 applic topical ONCE PRN port 06/29/24 08/10/24 Rx topical cream access 30 days #30 grams ondansetron 8 mg disintegrating 8 mg PO Q8H PRN nausea and 06/29/24 08/10/24 Rx tablet vomiting #30 tabs albuterol sulfate 90 mcg/actuation 2 puff inhalation Q 4H PRN 07/07/24 08/10/24 Rx aerosol inhaler shortness of breath or wheez ing #1 ea MAGIC MOUTH WASH (BMX) 180 mL 15 ml PO .qid PRN pain # 180 mL 07/21/24 08/10/24 Rx suspension oxycodone 5 mg capsule 5 mg PO TID PRN pain 4 weeks #90 08/05/24 08/10/24 Rx caps Have you fallen in the past year?: No Central Venous Access Central Venous Access: Yes Port/PICC: Port Laboratory Tests 07/06/24 07/20/24 07/27/24 08:07 08:10 08:10 WBC 8.5 5.4 3.2 L Hgb 14.1 13.6 13.0 Hct 43.2 41.3 39.3 L Plt Count 162 164 103 L Absolute Neuts (auto) 6.2 4.1 2.3 Sodium 138 Potassium 4.3 Chloride 103 Carbon Dioxide 23.2 BUN 20 H Creatinine 1.28 H Glucose 214 H Calcium 9.9 Total Bilirubin 1.06 AST 22 ALT 21 Alkaline Phosphatase 120 Total Protein 7.4 Albumin 4.0 Globulin 3.3 08/03/24 08/10/24 07:56 07:55 WBC 2.5 L 3.7 L Hgb 12.5 L 12.5 L Hct 37.8 L 38.0 L Plt Count 72 L 98 L Absolute Neuts (auto) 1.8 L 2.9 Sodium Potassium Chloride Carbon Dioxide BUN Creatinine Glucose Calcium Total Bilirubin AST ALT Alkaline Phosphatase Total Protein Albumin Globulin Exam Physical Exam Const alert, oriented x3 and no apparent distress HEENT normocephalic, external ears normal and external nose normal HEENT Narrative: + Edentulous. + erythema in the throat and soft palate. +Clot in L nostril Eyes PERRL, EOMs intact bilaterally and conjunctivae normal Neck Neck Narrative: +R parotid, upper jugular level II and III nodes decreased in size. Chest Chest Narrative: +Port L IC area. Resp normal respiratory effort and clear to auscultation bilaterally Cardio regular rate, regular rhythm, S1 normal heart sound, S2 normal heart sound and no murmurs GI GI Narrative: +Peg-tube in epigastric area. no CVA tenderness Back/Spine thoracic and lumbar spine normal to inspection Extremity Extremity Narrative: +compression socks Skin Skin Narrative: +papular erythematous rash R & L forearms. 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 Due for C 5 weekly chemotherapy. Counts show PLT 98K. Ok to proceed with C5. Plan: To proceed with C5 weekly Taxol and Carboplatin. (2) Chemotherapy management, encounter for: Status: Acute Comment: Comes for C5. Counts show PLT 98K, OK for chemotherapy. He wants to continue therapy. Plan: To proceed with C5 weekly Taxol and Carboplatin. (3) Oral mucositis: Status: Acute Plan: To use mouthwash, pain medication.. (4) Rash: Status: Acute Comment: Due to chemotherapy most likely Taxol. Plan: To apply Hydrocortisone ointment (5) Epistaxis: Status: Acute Plan: To f/u with ENT for cauterization. (6) Radiation-induced dermatitis: Status: Acute Plan: To continue skin care. Clinical Quality Measures Falls Risk Screening/Assistive Devices Have you fallen in the past year?: No 08/10/24 0927 <Electronically signed by Franco Enriquez> Date _ Franco Pérez MD Cosigner Signature: Date (if applicable) CC: Dr. 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 Medical History: Other Relevant Medical History/Diagnoses/Surgery: Wears glasses, Edentulous, Injury of head and neck, History of hiatal hernia, CPAP dependence, Shortness ofbreath on exertion, Former smoker, COPD, Tongue cancer, Hyperglycemia, HTN, Hypoxia, Saddle pulmonary embolus. Surgical Hx significant for Hx of EGD, tonsillectomy, and parotidectomy. See EMR for full PMH. Patient reported having L parotidectomy due to swelling and improper functioning of L parotid gland July 2013. He had his teeth extractedbefore chemoradiation treatment. He also had mandibular joaquim removed. Oncology Hx per radiation oncology progress note 07/08/2024: 73 year-old male diagnosed with AJCC 8th edition clinical stage I (cT2 cN1 M0) p16 positive invasive squamous of carcinoma of the BOT s/p CT neck with contrast (04/13/2024),direct laryngoscopy with biopsy (05/08/2024), and PET scan ()...Plan wasmade to complete definitive chemoradiation consisting of 6996 cGy delivered to the base of tongue primary and right neck adenopathy, 5940 cGy to the remaining base of tongue, and right neck and 5412 cGy delivered to the left neck and bilateral supraclavicular fossa. Treatment began 07/06/2024. PEG tube in place. Dysphagia Hx: BSE completed 07/13/2024 revealing mild oral dysphagia and recommending soft and bite size textures / thin liquids. POC initiated to train pt in oropharyngeal exercises and monitor diet tolerance during chemoradiation treatment for SCC of TB. MALTHOUSE LABORER recommended MBSS to determine baseline swallow function and further assess risk for aspiration. Pt has not yet required use of PEG tube. Current Diet Ordered: Soft and bite size textures / Thin liquids Dentition: Edentulous Mental Status: WNL Respiratory Status: Oxygenating on Room Air Penetration-Aspiration Scale Penetration-Aspiration Scale: OBJECTIVE ASSESSMENT OF SWALLOW FUNCTION (QUANTITATIVE ? PER TRIAL): PENETRATION / ASPIRATION SCALE (JENNINGS): 1 = does not enter airway 2 = enters airway/above vocal folds/ejected 3 = enters airway/above vocal folds/not ejected 4 = enters airway/contacts vocal folds/ejected 5 = enters airway/contacts vocal folds/not ejected 6 = enters airway/below vocal folds/ejected 7 = enters airway/below vocal folds/not ejected despite effort 8 = enters airway/below vocal folds/no effort VIDEOFLOROSCOPIC SCALE SCORE (JENNINGS): Grade I = aspiration of material that has penetrated into the laryngeal vestibule, intact cough reflex Grade II = aspiration < 10 % of the bolus, intact cough reflex Grade III = aspiration of < 10 % of the bolus, reduced cough reflex or aspiration of > 10 % of the bolus, intact cough reflex Grade IV = aspiration of > 10 % of the bolus, reduced cough reflex Penetration-Aspiration Scale Score Thin Liquid via teaspoon: Result: 1= does not enter airway Thin Liquid via teaspoon Trial 2: Result: 1= does not enter airway Thin Liquid via large single sip: cup: Result: 2= enter airway/above vocal folds/ejected [place] Thick Liquid via large single sip: cup: Result: 1= does not enter airway Pudding via teaspoon: Result: 1= does not enter airway Comment: Esophageal screen - Mild retention in the middle esophagus. Thin Liquid via single sip: straw: Result: 1= does not enter airway Comment: Esophageal screen - Mild retention in lower esophagus, somewhat cleared retention of previous trial. Retrograde flow of thin barium in lower esophagus. Thin Liquid via sequential sips:straw: Result: 1= does not enter airway Oral Phase Labial Seal: Interlabial escape, no progression to anterior lip Tongue Control During Bolus Hold: Posterior escape of less than half of bolus Bolus Transport/Lingual Motion: Delayed initiation of tongue motion Oral Residue: Residue collection on oral structures Pharyngeal Phase Initiation of Pharyngeal Swallow: Bolus head in pyriforms Soft Palate Elevation: Trace column of contrast/air between soft palate and pharyngeal wall Laryngeal Elevation: Comp. Superior move thyroid cart w/comp. apprx arytenoid cart-epig pet Anterior Hyoid Excursion: Partial anterior movement Epiglottic Movement: Complete inversion Laryngeal Vestibule Closure at Height of Swallow: Incomplete; narrow column of air/contrast in laryngeal vestibule (trace laryngeal penetration 1X) Pharyngeal Stripping Wave: Present - diminished Pharyngoesophageal Segment Opening: Parital distension and partial duration; parital obstruction offlow Tongue Base Retraction: Narrow column of contrast between tongue base & post. pharyngeal wall Pharyngeal Residue: Collection of residue within or on pharyngeal structures Esophageal Phase Esophageal Clearance: Esophageal retention w/ retrograde flow below pharyngoesophageal seg. Diagnosis/Impression Diagnosis: Mild oropharyngeal dysphagia R13.12 Impression: The oral phase is marked by... -Decreased bolus control w/ posterior loss of <1/2 of liquids to the pyriforms prior to swallow onset. -Delayed tongue motion for A-P transport. -Mild oral residue, which pt cleared w/ independent use of a second swallow as needed. -Did not assess mastication of cookie as pt has incomplete jaw closure after teeth extraction. Pt will require dentures after treatment has been completed. The pharyngeal phase is marked by... -Delayed swallow onset. -Mildly decreased TB retraction and pharyngeal stripping wave resulting in trace-mild pharyngeal residues, which cleared w/ independent use of a second swallow as needed. -Trace laryngeal penetration 1X, which fully ejected during the swallow, no aspiration. The esophageal phase is marked by... -Mild retention of pudding in the middle esophagus. -Mild retention of liquids in lower esophagus, which somewhat cleared retention of pudding trial. Retrograde flow of thin barium in lower esophagus. Recommendations Diet: Soft and Bite Sized Textures and Thin Liquids Compensatory Strategies: Small Bites, Small Sips, Slow Rate, Multiple Swallows, Alternate bites/solids and sips/liquids, Sitting upright and Remain sitting upright for 30 minutes after PO intake Recommend Repeat Modified Barium Swallow: Yes Comment: Repeat MBSS 3 months after completion of chemoradiation to monitor swallow function as the patient is at risk for worsening dysphagia and aspiration risk s/p chemoradiation treatment. Need for Skilled Speech Therapy Services: Yes Comment: Continue per OP dysphagia POC. Continue Christie, Kai, Effortful, and jaw stretch for oropharyngeal exercise program. Education Completed: 1. Described result of evaluation., 2. Pt understands evaluation & agrees with goals and treatment plan. and 7. Pt requires further education on strategies & risks. Status Active ST Patient: Active Contact Information [facility] Speech Therapy:: Rosalia Pollard M.A. CCC-MALTHOUSE LABORER? Speech-Language Pathologist?? [facility] [address] [place] [address]? [email or web address]?? [phone] 07/14/24 1524 SAFIA Vallejo-MALTHOUSE LABORER> Date/Time Rosalia Pollard M.A. CCC-MALTHOUSE LABORER Co-Signature Required for all Medicare patients Date/Time Co-Signature CC: ~ [facility]04-17-2025 History and physical note Author Daniel Sánchez [facility] Note Date/Time July 09, 2024 10: 56am [facility] Medical Records Department [address] [place] [address] History & Physical Exam 07/09/24 1054 MR#: [id number] Acct: [id number] Name: ROBERT RON Rep #:[id number] : 1950 73 From: Daniel Sánchez MD PCP: Dr. Bulmaro Curtis MD Status:REG S DC Location: [place] [id number] HPI - General General Date of Admission: 07/09/24 Date of Service: 07/09/24 Chief Complaint: non functional medport HPI Narrative ROBERT RON, is a 73 M who presents for revision of medport. It was placed about a week ago but oncology having issues with it functioning properly. xray seems to suggest a possible kink in tubing [facility] Medical History Encounter for education Wears glasses Edentulous High cholesterol Injury of head and neck History of hiatal hernia CPAP (continuous positive airway pressure) dependence Shortness of breath on exertion Former smoker History of edema History of echocardiogram COPD (chronic obstructive pulmonary disease) Tongue cancer Hyperglycemia Essential hypertension Hypoxia Saddle pulmonary embolus Home Medications ?Medication ?Instructions ?Recorded ?Last Taken ?Type atorvastatin 40 mg tablet 40 mg PO QHS 05/04/19 History cholecalciferol (vitamin D3) 25 1,000 unit PO DAILY foster pplement 05/04/19 05/04/19 History mcg (1,000 unit) tablet rivaroxaban 15 mg tablet 20 mg PO QHS 11/30/21 History citalopram 20 mg tablet (Celexa) 20 mg PO QHS 05/08/22 Unknown History budesonide 160 mcg-glycopyr 9 2 inh inhalation BID #10 .7 grams 07/31/23 Unknown Rx mcg-formot 4.8 mcg/actuation HFA inhaler (Breztri Aerosphere) cetirizine 10 mg capsule (Zyrtec) 10 mg PO DAILY PRN a llergy symptoms 07/31/23 Unknown History fluticasone furoate 27.5 2 spray intranasal DAILY PRN 07/31/23 Unknown History mcg/actuation nasal allergy symptoms spray,suspension (Flonase Sensimist) hydrochlorothiazide 12.5 mg tablet 12.5 mg PO QHS 11/15 Unknown History valsartan 320 mg tablet 320 mg PO QHS 07/31/23 Unkno wn History acetaminophen 500 mg capsule 500 mg PO Q6H PRN pain 07/01/24 History acetaminophen 300 mg-codeine 30 mg 1 - 2 tab PO Q6H OR N PRN pain 06/22/24 Unknown History tablet ibuprofen 600 mg tablet 600 mg PO Q6H PRN PRN pain 0 06/22/24 Unknown History lidocaine-prilocaine 2.5 %-2.5 % 1 applic topical ONCE PRN port 06/29/24 Unknown Rx topical cream access 30 days #30 grams ondansetron 8 mg disintegrating 8 mg PO Q8H PRN nausea and 06/29/24 Unknown Rx tablet vomiting #30 tabs oxycodone-acetaminophen 5 mg-325 1 tab PO Q8H PRN pain 3 days #7 07/02/24 Unknown Rx mg tablet (Percocet) tabs albuterol sulfate 90 mcg/actuation 2 puff inhalation Q 4H PRN 07/07/24 Unknown Rx aerosol inhaler shortness of breath or wheez ing #1 ea Allergy/AdvReac Type Severity Reaction Status Date / Time Sulfa (Sulfonamide Allergy Rash Verified 07/09/24 10:00 Antibiotics) Family History Father Heart disease Mother Heart disease Lung disease Grandmother Cancer Grandfather Cancer Other Diabetes Surgical History History of vascular access device History of surgery History of esophagogastroduodenoscopy (EGD) History of colonoscopy History of appendectomy History of tonsillectomy Cataracts, both eyes H/O parotidectomy Social History Smoking Status: Former smoker how long ago did patient quit smokin second hand exposure: Yes Vital Signs Vital Signs Vital Signs: 07/09/24 10:02 07/09/24 10:02 07/09/24 10:37 Temperature 97.0 F L 97.0 F L Temperature Source Temporal Pulse Rate 76 76 Respiratory Rate 18 18 Respiratory Pattern Normal Blood Pressure 131/68 H 131/68 H Blood Pressure Mean 89 Blood Pressure Source Monitor Blood Pressure Position Semi-Fowlers Blood Pressure Location Right Arm Pulse Ox 96 96 Oxygen Delivery Method Room Air Room Air Weight Weight: 302 lb 0.533 oz Body Mass Index (BMI) 38.7 Physical Exam Const alert, oriented x3 and no apparent distress Assessment & Plan Assessment/Plan (1) Encounter for insertion of venous access port: PLAN: Plan plan is to revise or replace port today 07/09/24 1056 <Electronically signed by Daniel Sánchez MD> Cosigner Signature (if applicable): CC: Dr. Daniel Sánchez MD; Dr. Bulmaro Curtis MD~ Signed [facility] Work Phone: 1(449) 584-841604-17-2025 Consult note Author Jovon [facility] Note Date/Time July 09, 2024 10: 48am [facility] Medical Records Department [address] [place] [id number] Pre-Anesthesia Evaluation 07/09/24 1028 MR#: [id number] Acct: [id number] Name: ROBERT RON Rep #:[id number] : 1950 73 From: Jovon Martin MD PCP: Dr. Bulmaro Curtis MD Status:REG S DC Y Race: C Location: [place] [address] ASA Classification* ASA Classification ASA Classification: 3 Assessment & Plan Anesthesia* Anesthesia Assessment Anesthesia Assessment: Discussed sedation and/or anesthesia options, risks, benefits, and alternatives with patient/parents/legal guardian/POA. Questions invited. The patient/parents/legal guardian/POA seems to understand and agrees to proceedwith anesthesia plan. Reviewed the physical assessment, medical history, allergy history and patient home medications list prior to surgery/procedure/anesthetic and documented any changes. Performed airway and anesthesia risk assessments. Anesthesia Type Anesthesia Type: General History Source History Obtained from:: Patient and Chart Anesthesia Focused Assessment* Temperature: 97.0 F Pulse Rate: 76 Blood Pressure: 131/68 Respiratory Rate: 18 Pulse Ox: 96 Oxygen Delivery Method: Room Air Airway Assessment Mouth opens: >3 cm Mallampati Score: III Teeth Condition: Missing (Patient is edentulous.) Neck Range of motion (ROM): Limited ROM (Somewhat decreased extension) Focused Labs Anesthesia Preop lab: CBC WBC 8.5 K/mm3 (4.4-11.0) 07/06/24 08:07 07/06/24 RBC 4.74 M/mm3 (4.6-6.2) 07/06/24 08:07 07/06/24 Hgb 14.1 g/dL (13.0-16.5) 07/06/24 08:07 07/06/24 Hct 43.2 % (40-54) 07/06/24 08:07 07/06/24 Plt Count 162 K/mm3 (150-450) 07/06/24 08:07 07/06/24 CHEMISTRY Potassium 4.3 mmol/L (3.3-5.1) 07/06/24 08:07 07/06/24 Sodium 138 mmol/L (133-145) 07/06/24 08:07 07/06/24 Magnesium 1.9 mg/dL (1.5-2.2) 07/06/24 08:07 07/06/24 Phosphorus 3.0 mg/dL (2.7-4.5) 07/06/24 08:07 07/06/24 BUN 20 mg/dL (4-19) H 07/06/24 08:07 07/06/24 Creatinine 1.28 mg/dL (0.70-1.20) H 07/06/24 08:07 Glucose 214 mg/dL (70-99) H 07/06/24 08:07 07/06/24 TSH 1.290 uIU/mL (0.358-3.740) 01/07/24 11:10 1008/15 COAG PT 13.2 SECONDS (11.7-14.9) 05/15/22 07:42 Pre-Assessment Diagnosis/Proposed Procedure Planned Operative Procedure(s): REVISION OF LEFT CHEST MEDIPORT Anesthesia History Anesthesia History - field map technician: Anesthesia History - field map technician Hx Hospitalization Yes 07/07/24 10:45 Any Problems With Anesthesia No 07/07/24 10:45 Cholinesterase deficiency No 07/07/24 10:45 You/Your Family Experience No 07/07/24 10:45 fever (hyperthermia) with Relationship Recent Exposure to Contagious No 07/09/24 10:02 Disease Does patient have nerve No 07/07/24 10:45 stimulator Patient instructed to have device shut off --Does patient have Pacemaker No 07/09/24 10:02 or ICD? When Was Last Pacemaker Check QUESTION #4 FULL TEXT: You/Your Family Experience fever (hyperthermia) with Anesthesia Last Oral Intake Last Oral intake: Last Oral Intake NPO since 08:15 07/09/24 10:02 Meds taken in AM with sips of Yes 07/09/24 10:02 water? Meds patient instructed to take am of surgery Any additional information?: Yes NPO since: : (Patient had black coffee at 8:15 AM.) PONV PONV - field map technician: PONV - field map technician Female No 07/07/24 10:45 HX of Motion Sickness No 07/07/24 10:45 HX of N/V After Surgery No 07/07/24 10:45 Non-Smoker Yes 07/07/24 10:45 Duration of Surgery greater No 07/07/24 10:45 than 60 minutes Number of Risk Factors 1 07/07/24 10:45 PONV Score Low Risk 07/07/24 10:45 Height & Weight Height & Weight: Anesthesia: Height & Weight Height 6 ft 2 in 07/09/24 10:02 Weight: 137 kg 07/09/24 10:02 Body Mass Index (BMI) 38.7 07/09/24 10:02 Respiratory Assessment Respiratory Assessment - field map technician: Respiratory Tract Infection Hx - field map technician Hx Respiratory Tract Infection No 07/07/24 10:45 STOP Sleep Apnea STOP Sleep Apnea - field map technician: STOP Sleep Apnea - field map technician Hx Hypertension Yes 07/07/24 10:45 Hx Sleep Apnea Yes 07/07/24 10:45 CPAP Yes 07/07/24 10:45 BIPAP No 07/07/24 10:45 Do you snore loudly (louder than talking or can be heard Do you often feel tired/ fatigued/ sleepy during daytime? Has anyone observed you stop breathing during sleep? STOP Results Positive 07/07/24 10:45 QUESTION #5 FULL TEXT : Do you snore loudly (louder than talking or can be heard through closed doors)? Tobacco Use History Tobacco Use History - field map technician: Tobacco Use History - field map technician Tobacco Use Smoking Status Former smoker 07/07/24 10:45 Hx Tobacco Use Yes 07/07/24 10:45 Years Smoking Packs Smoked per Day Smoking Cessation Date was Yes - quit smoking within 15 07/07/24 10:45 within the last 15 years years Hx Smoking Cessation Date 04/03/19 07/07/24 10:45 Hx Smoking Cessation Counseling Hematologic Medial History Hematologic Hx - field map technician: Hematologic Medical Hx - imaging technician Hx of Blood Transfusion No 07/07/24 10:45 Hx of Transfusion in last 3 No 07/07/24 10:45 Months Date of Last Transfusion (if within last 3 months) Ever experience any problems No 07/07/24 10:45 with transfusion(s)? Specify any problems Hx of Preganancy in last 3 N/A 07/07/24 10:45 Months Nurse Filling Out Transfusion DSCHRIBER 07/07/24 10:45 & Questions: Date: 07/07/24 07/07/24 10:45 Time: 10:46 07/07/24 10:45 Patient unable to answer at this time (ie. confused, unrespo /Reproduction History /Reproductive History - field map technician: /Reproductive Hx- field map technician Hx Now No 07/07/24 10:45 Gestational Age (in weeks): EDC: Hx Hx Para Hx Section SAB No 07/07/24 10:45 Active Medications Active Medications: Current Medications Generic Name Dose Route Start Last Admin Trade Name Freq PRN Reason Stop Dose Admin Cefazolin Sodium 3 gm/ N/A 30 mls @ 600 mls/hr 07/09/24 11:30 IV 07/09/24 11:32 INTRAOP [facility] Medical History Encounter for education Wears glasses Edentulous High cholesterol Injury of head and neck History of hiatal hernia CPAP (continuous positive airway pressure) dependence Shortness of breath on exertion Former smoker History of edema History of echocardiogram COPD (chronic obstructive pulmonary disease) Tongue cancer Hyperglycemia Essential hypertension Hypoxia Saddle pulmonary embolus Home Medications ?Medication ?Instructions ?Recorded ?Last Taken ?Type atorvastatin 40 mg tablet 40 mg PO QHS 05/04/19 History cholecalciferol (vitamin D3) 25 1,000 unit PO DAILY foster pplement 05/04/19 05/04/19 History mcg (1,000 unit) tablet rivaroxaban 15 mg tablet 20 mg PO QHS 11/30/21 History citalopram 20 mg tablet (Celexa) 20 mg PO QHS 05/08/22 Unknown History budesonide 160 mcg-glycopyr 9 2 inh inhalation BID #10 .7 grams 07/31/23 Unknown Rx mcg-formot 4.8 mcg/actuation HFA inhaler (Breztri Aerosphere) cetirizine 10 mg capsule (Zyrtec) 10 mg PO DAILY PRN a llergy symptoms 07/31/23 Unknown History fluticasone furoate 27.5 2 spray intranasal DAILY PRN 07/31/23 Unknown History mcg/actuation nasal allergy symptoms spray,suspension (Flonase Sensimist) hydrochlorothiazide 12.5 mg tablet 12.5 mg PO QHS 11/15 Unknown History valsartan 320 mg tablet 320 mg PO QHS 07/31/23 Unkno wn History acetaminophen 500 mg capsule 500 mg PO Q6H PRN pain 07/01/24 History acetaminophen 300 mg-codeine 30 mg 1 - 2 tab PO Q6H OR N PRN pain 06/22/24 Unknown History tablet ibuprofen 600 mg tablet 600 mg PO Q6H PRN PRN pain 0 06/22/24 Unknown History lidocaine-prilocaine 2.5 %-2.5 % 1 applic topical ONCE PRN port 06/29/24 Unknown Rx topical cream access 30 days #30 grams ondansetron 8 mg disintegrating 8 mg PO Q8H PRN nausea and 06/29/24 Unknown Rx tablet vomiting #30 tabs oxycodone-acetaminophen 5 mg-325 1 tab PO Q8H PRN pain 3 days #7 07/02/24 Unknown Rx mg tablet (Percocet) tabs albuterol sulfate 90 mcg/actuation 2 puff inhalation Q 4H PRN 07/07/24 Unknown Rx aerosol inhaler shortness of breath or wheez ing #1 ea Allergy/AdvReac Type Severity Reaction Status Date / Time Sulfa (Sulfonamide Allergy Rash Verified 07/09/24 10:00 Antibiotics) Family History Father Heart disease Mother Heart disease Lung disease Grandmother Cancer Grandfather Cancer Other Diabetes Surgical History History of vascular access device History of surgery History of esophagogastroduodenoscopy (EGD) History of colonoscopy History of appendectomy History of tonsillectomy Cataracts, both eyes H/O parotidectomy Social History Smoking Status: Former smoker how long ago did patient quit smokin second hand exposure: Yes Review of Systems (Anesthesia) ROS Narrative System reviewed and no additional complaints, except as documented. Physical Exam Resp clear to auscultation bilaterally 07/09/24 1048 <Electronically signed by Jovon dove MD> Date _ Jovon Martin MD Cosigner Signature: Date CC: ~ Signed [facility] Work Phone: [phone]) 539-892004-17-2025 Radiology Diagnostic study note [facility] Imaging Services [address] [place], [place] [address] CXR for Line Placement MR#: [id number] Acct: [id number] Name: ROBERT RON Rep #: [id number] : 1950 M 73 From: Iván Ramírez MD PCP: Dr. Bulmaro Curtis MD Status: REG S DC Study:CXR for Line Placement Date of Exam: 07/09/24 Exam# [id number] Ordering Dr: St mary Sánchez MD EXAM: Port a catheter repositioning. CLINICAL HISTORY: Nonfunctioning port a catheter. COMPARISON: Comparison is made with prior study dated July 06, 2024. TECHNIQUE: Frontal chest radiograph was performed. FINDINGS: A left-sided port a catheter is seen with the tip in the proximal portion of theleft brachiocephalic vein. No obvious kinking in the region of the left axilla. Hyperinflation. RAD/CXR for Line Placement IMPRESSION: A left-sided port a catheter has been placed with the tip in the proximal portion of the left brachiocephalic vein. Reading Location: [place] [address] CC: Dr. Daniel Sánchez MD; Dr. Bulmaro Curtis MD ~ Brass Instrument Repair Technician: Signed [facility]04-17-2025 Consult note [facility] Medical Records Department [address] [place] [address] Anesthesia Postop Eval I 07/09/24 1221 MR#: [id number] Acct: [id number] Name: ROBERT RON Rep #:[id number] : 1950 73 From: Isaiah rodriguez LAUNCH LEADER PCP: Dr. Bulmaro Curtis MD Status:REG S DC Y Race: C Location: [place] [address] Anesthesia: Postop Eval I Current Vital Signs Temperature: 97.2 F Pulse Rate: 80 Blood Pressure: 155/78 Respiratory Rate: 16 Pulse Ox: 94 Oxygen Delivery Method: Room Air Assessment Airway patent: Yes Spontaneous unlabored respirations: Yes nausea: No Vomiting: No Anesthesia Complication: No Fluid Hydration Crystalloid volume administer (ml): 500 Total IV fluid infused: 500 Progress Note Anesthesia document: Postop Eval 1 completed: Yes 07/09/24 1224 ero LAUNCH LEADER> Date _ Isaiah Bravoo LAUNCH LEADER Cosigner Signature: Date CC: ~ Signed [facility]04-17-2025 Discharge summary [facility] Medical Records Department [address] [place] [address] Instructions for Home/Discharge Instructions 07/09/24 1207 MR#: [id number] Acct: [id number] Name: ROBERT RON Rep #:[id number] : 1950 73 From: Daniel Sánchez MD PCP: Dr. Bulmaro Curtis MD Status:REG S DC Discharge Instructions Diet Discharge Diet: Light diet - advance as tolerated Activity Discharge Activity: Return to Normal Activity May shower in (days): 1 Ice area for (Minutes): 30 Dressing / Incision Call your doctor if your incision/area has: Continuous Slow Oozing, Sudden Increased Bleeding, Increased Pain/ Swelling, Increased Redness, Foul Smelling Discharge and Swelling at the incision site Call your doctor if you observe: Fever of 101 or Higher Suture Line Care: Avoid Pulling/Pushing Remove Dressing in: 3 days Cleanse incision/area with: Soap & Water Follow Up Care Please Follow Up With: Daniel Sánchez MD When: as needed Test Results: Test results from this visit will be discussed in further detail at your follow- up appointment, if applicable. Discharge Plan Admission Primary Reason for Your Visit: port revision Attending Provider: Daniel Sánchez Primary Care Provider: Bulmaro Curtis Chi Instructions Print Language: [place] Discharge Orders/Prescriptions Prescriptions: Continued rivaroxaban 15 mg tablet 20 mg PO QHS Patient Comments: LAST DAY 06/28/24 FOR SURGERY ON 07/02/24 Rx Instructions: must administer with evening meal citalopram [Celexa] 20 mg tablet 20 mg PO QHS valsartan 320 mg tablet 320 mg PO QHS hydrochlorothiazide 12.5 mg tablet 12.5 mg PO QHS Zyrtec 10 mg capsule 10 mg PO DAILY PRN (Reason: allergy symptoms) Flonase Sensimist 27.5 mcg/actuation spray,suspension 2 spray intranasal DAILY PRN (Reason: allergy symptoms) Rx Instructions: into each nostril Nachotri Aerosphere 160-9-4.8 mcg/actuation HFA aerosol inhaler 2 inh inhalation BID Qty: 10.7 6RF acetaminophen 500 mg capsule 500 mg PO Q6H PRN (Reason: pain) ondansetron 8 mg tablet,disintegrating 8 mg PO Q8H PRN (Reason: nausea and vomiting) Qty: 30 1RF lidocaine-prilocaine 2.5-2.5 % cream 1 applic topical ONCE PRN (Reason: port access) 30 Days Qty: 30 2RF atorvastatin 40 MG tablet 40 mg PO QHS cholecalciferol (vitamin D3) 1,000 UNIT tablet 1,000 unit PO DAILY acetaminophen-codeine 300-30 mg tablet 1 - 2 tab PO Q6H PRN PRN (Reason: pain) ibuprofen 600 mg tablet 600 mg PO Q6H PRN PRN (Reason: pain) oxycodone-acetaminophen [Percocet] 5-325 mg tablet 1 tab PO Q8H PRN (Reason: pain) 3 Days Qty: 7 0RF albuterol sulfate 90 mcg/actuation HFA aerosol inhaler 2 puff inhalation Q4H PRN (Reason: shortness of breath or wheezing) Qty: 1 6RF Rx Instructions: administer with spacer Referrals / Follow Up: Bulmaro Curtis Chi, MD [Primary Care Provider] - Disposition Disposition (needs filled in before D/C Order can be placed): Home, Self Care 07/09/24 1211Srosa Sánchez MD CC: Dr. Bulmaro Curtis MD ~ Signed [facility]04-17-2025 History and physical note [facility] Medical Records Department [address] [place] [address] History & Physical Exam 07/09/24 1054 MR#: [id number] Acct: [id number] Name: ROBERT RON Rep #:[id number] : 1950 73 From: Daniel Sánchez MD PCP: Dr. Bulmaro Chi Ever, MD Status:REG S DC Location: [facility]19-1 HPI - General General Date of Admission: 07/09/24 Date of Service: 07/09/24 Chief Complaint: non functional medport HPI Narrative ROBERT RON, is a 73 M who presents for revision of medport. It was placed about a week ago but oncology having issues with it functioning properly. xray seems to suggest a possible kink in tubing [facility] Medical History Encounter for education Wears glasses Edentulous High cholesterol Injury of head and neck History of hiatal hernia CPAP (continuous positive airway pressure) dependence Shortness of breath on exertion Former smoker History of edema History of echocardiogram COPD (chronic obstructive pulmonary disease) Tongue cancer Hyperglycemia Essential hypertension Hypoxia Saddle pulmonary embolus Home Medications ?Medication ?Instructions ?Recorded ?Last Taken ?Type atorvastatin 40 mg tablet 40 mg PO QHS 05/04/19 History cholecalciferol (vitamin D3) 25 1,000 unit PO DAILY foster pplement 05/04/19 05/04/19 History mcg (1,000 unit) tablet rivaroxaban 15 mg tablet 20 mg PO QHS 11/30/21 History citalopram 20 mg tablet (Celexa) 20 mg PO QHS 05/08/22 Unknown History budesonide 160 mcg-glycopyr 9 2 inh inhalation BID #10 .7 grams 07/31/23 Unknown Rx mcg-formot 4.8 mcg/actuation HFA inhaler (Breztri Aerosphere) cetirizine 10 mg capsule (Zyrtec) 10 mg PO DAILY PRN a llergy symptoms 07/31/23 Unknown History fluticasone furoate 27.5 2 spray intranasal DAILY PRN 07/31/23 Unknown History mcg/actuation nasal allergy symptoms spray,suspension (Flonase Sensimist) hydrochlorothiazide 12.5 mg tablet 12.5 mg PO QHS 11/15 Unknown History valsartan 320 mg tablet 320 mg PO QHS 07/31/23 Unkno wn History acetaminophen 500 mg capsule 500 mg PO Q6H PRN pain 07/01/24 History acetaminophen 300 mg-codeine 30 mg 1 - 2 tab PO Q6H OR N PRN pain 06/22/24 Unknown History tablet ibuprofen 600 mg tablet 600 mg PO Q6H PRN PRN pain 0 06/22/24 Unknown History lidocaine-prilocaine 2.5 %-2.5 % 1 applic topical ONCE PRN port 06/29/24 Unknown Rx topical cream access 30 days #30 grams ondansetron 8 mg disintegrating 8 mg PO Q8H PRN nausea and 06/29/24 Unknown Rx tablet vomiting #30 tabs oxycodone-acetaminophen 5 mg-325 1 tab PO Q8H PRN pain 3 days #7 07/02/24 Unknown Rx mg tablet (Percocet) tabs albuterol sulfate 90 mcg/actuation 2 puff inhalation Q 4H PRN 07/07/24 Unknown Rx aerosol inhaler shortness of breath or wheez ing #1 ea Allergy/AdvReac Type Severity Reaction Status Date / Time Sulfa (Sulfonamide Allergy Rash Verified 07/09/24 10:00 Antibiotics) Family History Father Heart disease Mother Heart disease Lung disease Grandmother Cancer Grandfather Cancer Other Diabetes Surgical History History of vascular access device History of surgery History of esophagogastroduodenoscopy (EGD) History of colonoscopy History of appendectomy History of tonsillectomy Cataracts, both eyes H/O parotidectomy Social History Smoking Status: Former smoker how long ago did patient quit smokin second hand exposure: Yes Vital Signs Vital Signs Vital Signs: 07/09/24 10:02 07/09/24 10:02 07/09/24 10:37 Temperature 97.0 F L 97.0 F L Temperature Source Temporal Pulse Rate 76 76 Respiratory Rate 18 18 Respiratory Pattern Normal Blood Pressure 131/68 H 131/68 H Blood Pressure Mean 89 Blood Pressure Source Monitor Blood Pressure Position Semi-Fowlers Blood Pressure Location Right Arm Pulse Ox 96 96 Oxygen Delivery Method Room Air Room Air Weight Weight: 302 lb 0.533 oz Body Mass Index (BMI) 38.7 Physical Exam Const alert, oriented x3 and no apparent distress Assessment & Plan Assessment/Plan (1) Encounter for insertion of venous access port: PLAN: Plan plan is to revise or replace port today 07/09/24 1056 Cosigner Signature (if applicable): CC: Dr. Daniel Sánchez MD; Dr. Bulmaro Curtis MD~ Signed [facility]04[facility]17[facility] Consult note [facility] Medical Records Department [address] [place] [address] Pre-Anesthesia Evaluation 07/09/24 1028 MR#: [id number] Acct: [id number] Name: ROBERT RON Rep #:[id number] : 1950 73 From: Jovon Martin MD PCP: Dr. Bulmaro Curtis MD Status:REG S DC Y Race: C Location: [place] [address] ASA Classification* ASA Classification ASA Classification: 3 Assessment & Plan Anesthesia* Anesthesia Assessment Anesthesia Assessment: Discussed sedation and/or anesthesia options, risks, benefits, and alternatives with patient/parents/legal guardian/POA. Questions invited. The patient/parents/legal guardian/POA seems to understand and agrees to proceedwith anesthesia plan. Reviewed the physical assessment, medical history, allergy history and patient home medications list prior to surgery/procedure/anesthetic and documented any changes. Performed airway and anesthesia risk assessments. Anesthesia Type Anesthesia Type: General History Source History Obtained from:: Patient and Chart Anesthesia Focused Assessment* Temperature: 97.0 F Pulse Rate: 76 Blood Pressure: 131/68 Respiratory Rate: 18 Pulse Ox: 96 Oxygen Delivery Method: Room Air Airway Assessment Mouth opens: >3 cm Mallampati Score: III Teeth Condition: Missing (Patient is edentulous.) Neck Range of motion (ROM): Limited ROM (Somewhat decreased extension) Focused Labs Anesthesia Preop lab: CBC WBC 8.5 K/mm3 (4.4-11.0) 07/06/24 08:07 07/06/24 RBC 4.74 M/mm3 (4.6-6.2) 07/06/24 08:07 07/06/24 Hgb 14.1 g/dL (13.0-16.5) 07/06/24 08:07 07/06/24 Hct 43.2 % (40-54) 07/06/24 08:07 07/06/24 Plt Count 162 K/mm3 (150-450) 07/06/24 08:07 07/06/24 CHEMISTRY Potassium 4.3 mmol/L (3.3-5.1) 07/06/24 08:07 07/06/24 Sodium 138 mmol/L (133-145) 07/06/24 08:07 07/06/24 Magnesium 1.9 mg/dL (1.5-2.2) 07/06/24 08:07 07/06/24 Phosphorus 3.0 mg/dL (2.7-4.5) 07/06/24 08:07 07/06/24 BUN 20 mg/dL (4-19) H 07/06/24 08:07 07/06/24 Creatinine 1.28 mg/dL (0.70-1.20) H 07/06/24 08:07 Glucose 214 mg/dL (70-99) H 07/06/24 08:07 07/06/24 TSH 1.290 uIU/mL (0.358-3.740) 01/07/24 11:10 12/23 08/15 COAG PT 13.2 SECONDS (11.7-14.9) 05/15/22 07:42 Pre-Assessment Diagnosis/Proposed Procedure Planned Operative Procedure(s): REVISION OF LEFT CHEST MEDIPORT Anesthesia History Anesthesia History - field map technician: Anesthesia History - field map technician Hx Hospitalization Yes 07/07/24 10:45 Any Problems With Anesthesia No 07/07/24 10:45 Cholinesterase deficiency No 07/07/24 10:45 You/Your Family Experience No 07/07/24 10:45 fever (hyperthermia) with Relationship Recent Exposure to Contagious No 07/09/24 10:02 Disease Does patient have nerve No 07/07/24 10:45 stimulator Patient instructed to have device shut off --Does patient have Pacemaker No 07/09/24 10:02 or ICD? When Was Last Pacemaker Check QUESTION #4 FULL TEXT: You/Your Family Experience fever (hyperthermia) with Anesthesia Last Oral Intake Last Oral intake: Last Oral Intake NPO since 08:15 07/09/24 10:02 Meds taken in AM with sips of Yes 07/09/24 10:02 water? Meds patient instructed to take am of surgery Any additional information?: Yes NPO since: 08:15 (Patient had black coffee at 8:15 AM.) PONV PONV - field map technician: PONV - field map technician Female No 07/07/24 10:45 HX of Motion Sickness No 07/07/24 10:45 HX of N/V After Surgery No 07/07/24 10:45 Non-Smoker Yes 07/07/24 10:45 Duration of Surgery greater No 07/07/24 10:45 than 60 minutes Number of Risk Factors 1 07/07/24 10:45 PONV Score Low Risk 07/07/24 10:45 Height & Weight Height & Weight: Anesthesia: Height & Weight Height 6 ft 2 in 07/09/24 10:02 Weight: 137 kg 07/09/24 10:02 Body Mass Index (BMI) 38.7 07/09/24 10:02 Respiratory Assessment Respiratory Assessment - field map technician: Respiratory Tract Infection Hx - field map technician Hx Respiratory Tract Infection No 07/07/24 10:45 STOP Sleep Apnea STOP Sleep Apnea - field map technician: STOP Sleep Apnea - field map technician Hx Hypertension Yes 07/07/24 10:45 Hx Sleep Apnea Yes 07/07/24 10:45 CPAP Yes 07/07/24 10:45 BIPAP No 07/07/24 10:45 Do you snore loudly (louder than talking or can be heard Do you often feel tired/ fatigued/ sleepy during daytime? Has anyone observed you stop breathing during sleep? STOP Results Positive 07/07/24 10:45 QUESTION #5 FULL TEXT : Do you snore loudly (louder than talking or can be heard through closeddoors)? Tobacco Use History Tobacco Use History - field map technician: Tobacco Use History - field map technician Tobacco Use Smoking Status Former smoker 07/07/24 10:45 Hx Tobacco Use Yes 07/07/24 10:45 Years Smoking Packs Smoked per Day Smoking Cessation Date was Yes - quit smoking within 07/07/24 10:45 within the last 15 years years Hx Smoking Cessation Date 04/03/19 07/07/24 10:45 Hx Smoking Cessation Counseling Hematologic Medial History Hematologic Hx - field map technician: Hematologic Medical Hx - imaging technician Hx of Blood Transfusion No 07/07/24 10:45 Hx of Transfusion in last 3 No 07/07/24 10:45 Months Date of Last Transfusion (if within last 3 months) Ever experience any problems No 07/07/24 10:45 with transfusion(s)? Specify any problems Hx of Preganancy in last 3 N/A 07/07/24 10:45 Months Nurse Filling Out Transfusion DSCHRIBER 07/07/24 10:45 & Questions: Date: 07/07/24 07/07/24 10:45 Time: 10:46 07/07/24 10:45 Patient unable to answer at this time (ie. confused, unrespo /Reproduction History /Reproductive History - field map technician: /Reproductive Hx- field map technician Hx Now No 07/07/24 10:45 Gestational Age (in weeks): EDC: Hx Hx Para Hx Section SAB No 07/07/24 10:45 Active Medications Active Medications: Current Medications Generic Name Dose Route Start Last Admin Trade Name Freq PRN Reason Stop Dose Admin Cefazolin Sodium 3 gm/ N/A 30 mls @ 600 mls/hr 07/09/24 11:30 IV 07/09/24 11:32 INTRAOP ONE [facility] Medical History Encounter for education Wears glasses Edentulous High cholesterol Injury of head and neck History of hiatal hernia CPAP (continuous positive airway pressure) dependence Shortness of breath on exertion Former smoker History of edema History of echocardiogram COPD (chronic obstructive pulmonary disease) Tongue cancer Hyperglycemia Essential hypertension Hypoxia Saddle pulmonary embolus Home Medications ?Medication ?Instructions ?Recorded ?Last Taken ?Type atorvastatin 40 mg tablet 40 mg PO QHS 05/04/19 History cholecalciferol (vitamin D3) 25 1,000 unit PO DAILY foster pplement 05/04/19 05/04/19 History mcg (1,000 unit) tablet rivaroxaban 15 mg tablet 20 mg PO QHS 11/30/21 History citalopram 20 mg tablet (Celexa) 20 mg PO QHS 05/08/22 Unknown History budesonide 160 mcg-glycopyr 9 2 inh inhalation BID #10 .7 grams 07/31/23 Unknown Rx mcg-formot 4.8 mcg/actuation HFA inhaler (Breztri Aerosphere) cetirizine 10 mg capsule (Zyrtec) 10 mg PO DAILY PRN a llergy symptoms 07/31/23 Unknown History fluticasone furoate 27.5 2 spray intranasal DAILY PRN 07/31/23 Unknown History mcg/actuation nasal allergy symptoms spray,suspension (Flonase Sensimist) hydrochlorothiazide 12.5 mg tablet 12.5 mg PO QHS 11/15 Unknown History valsartan 320 mg tablet 320 mg PO QHS 07/31/23 Unkno wn History acetaminophen 500 mg capsule 500 mg PO Q6H PRN pain 07/01/24 History acetaminophen 300 mg-codeine 30 mg 1 - 2 tab PO Q6H OR N PRN pain 06/22/24 Unknown History tablet ibuprofen 600 mg tablet 600 mg PO Q6H PRN PRN pain 0 06/22/24 Unknown History lidocaine-prilocaine 2.5 %-2.5 % 1 applic topical ONCE PRN port 06/29/24 Unknown Rx topical cream access 30 days #30 grams ondansetron 8 mg disintegrating 8 mg PO Q8H PRN nausea and 06/29/24 Unknown Rx tablet vomiting #30 tabs oxycodone-acetaminophen 5 mg-325 1 tab PO Q8H PRN pain 3 days #7 07/02/24 Unknown Rx mg tablet (Percocet) tabs albuterol sulfate 90 mcg/actuation 2 puff inhalation Q 4H PRN 07/07/24 Unknown Rx aerosol inhaler shortness of breath or wheez ing #1 ea Allergy/AdvReac Type Severity Reaction Status Date / Time Sulfa (Sulfonamide Allergy Rash Verified 07/09/24 10:00 Antibiotics) Family History Father Heart disease Mother Heart disease Lung disease Grandmother Cancer Grandfather Cancer Other Diabetes Surgical History History of vascular access device History of surgery History of esophagogastroduodenoscopy (EGD) History of colonoscopy History of appendectomy History of tonsillectomy Cataracts, both eyes H/O parotidectomy Social History Smoking Status: Former smoker how long ago did patient quit smokin second hand exposure: Yes Review of Systems (Anesthesia) ROS Narrative System reviewed and no additional complaints, except as documented. Physical Exam Resp clear to auscultation bilaterally 07/09/24 1048 petty ALVARENGA> Date _ Jovon Martin MD Cosigner Signature: Date CC: ~ Signed [facility]04-14-2025 Radiology Diagnostic study note [facility] Imaging Services [address] [place] [address] CXR for Line Placement MR#: [id number] Acct: [id number] Name: ROBERT RON Rep #: [id number] : 1950 M 73 From: Sean Ochoa DO PCP: Dr. Bulmaro Curtis MD Status: [facility] C Study:CXR for Line Placement Date of Exam: 07/06/24 Exam# [id number] Ordering Dr: Elicia Yin PA-C EXAM: PA upright radiograph of the chest CLINICAL HISTORY: Port placement COMPARISON: Chest x-ray dated 07/03/1999 TECHNIQUE: PA upright radiograph of the chest was performed. FINDINGS: Again noted is a left subclavian MediPort. The tip is located in the region of the distal superior vena cava. This is a similar finding when compared to the prior study. Again noted is parenchymal scarring of the left lower lobe. Small 1-2 mm granulomas are again identified. There is no atelectasis, consolidation, effusion or pneumonic infiltrate in either lung. Heart size and configuration within normal limits. Pulmonary vasculature and hilar structures are unremarkable. Arteriosclerotic vascular disease of the aorta is noted. Bony thorax appears grossly unremarkable. RAD/CXR for Line Placement IMPRESSION: The left subclavian MediPort tip appears to be in satisfactory position as described above. Arteriosclerotic vascular disease of the aorta. Parenchymal scarring of the left lower lobe. Reading Location: [id number] CC: COY Yin; Dr. Bulmaro Curtis MD ~ Brass Instrument Repair Technician: Signed [facility]04-10-2025 Consult note Author Jovon Martin [facility] Note Date/Time July 02, 2024 1:0 0pm [facility] Medical Records Department [address] [place] [address] Anesthesia Postop Eval II 07/02/24 1259 MR#: [id number] Acct: [id number] Name: ROBERT RON Rep #:[id number] : 1950 73 From: Jovon Martin MD PCP: Dr. Bulmaro Curtis MD Status:REG S DC Y Race: C Location: [place] [address] Anesthesia Postop Eval I Sum Postop Eval Completion status Anesthesia document: Postop Eval 1 completed: No Anesthesia Postop Eval I Summary Anesthesia Postop Eval I Summary: Anesthesia Postop Eval I: Assessment Summary Airway patent Yes 07/02/24 12:32 LAUNCH [email or web address].MEDM Spontaneous unlabored Yes 07/02/24 12:32 LAUNCH LEADER.MEDM respirations Mental status Awake 07/02/24 12:32 LAUNCH LEADER.MEDM nausea No 07/02/24 12:32 LAUNCH LEADER.MEDM Vomiting No 07/02/24 12:32 LAUNCH LEADER.MEDM Anesthesia Postop Eval I: Fluid Summary Crystalloid volume administer 800 07/02/24 12:32 LAUNCH LEADER.MEDM (ml) Colloids volume administered ( ml) Blood Product volume administered (ml) Total IV fluid infused 800 07/02/24 12:32 LAUNCH LEADER.MEDM Anesthesia Postop Eval I: Summary Notes Anesthesia Complication No 07/02/24 12:32 LAUNCH LEADER.MEDM Anesthesia Complication Comment: Post-operative progress note Anesthesia: Postop Eval II Evaluation Mental status: Awake and Calm Pain Level: 1 nausea: No Vomiting: No Complications Anesthesia Complication: No 07/02/24 1300 <Electronically signed by Jovon dove MD> Date _ Jovon Martin MD Cosigner Signature: Date CC: ~ Signed [facility] Work Phone: 1(747) 967-182304-10-2025 Discharge summary Author Daniel Sánchez [facility] Note Date/Time July 02, 2024 12: 33pm [facility] Medical Records Department [address] [place] [address] Instructions for Home/Discharge Instructions 07/02/24 1229 MR#: [id number] Acct: [id number] Name: ROBERT RON Rep #:[id number] : 1950 73 From: Daniel Sánchez MD PCP: Dr. Bulmaro Curtis MD Status:REG S DC Discharge Instructions Diet Discharge Diet: Light diet - advance as tolerated Activity Discharge Activity: Return to Normal Activity May shower in (days): 1 Dressing / Incision Call your doctor if your incision/area has: Continuous Slow Oozing, Sudden Increased Bleeding, Increased Pain/ Swelling, Increased Redness, Foul Smelling Discharge and Swelling at the incision site Call your doctor if you observe: Fever of 101 or Higher Remove Dressing in: 3 days Cleanse incision/area with: Soap & Water Follow Up Care Please Follow Up With: Daniel Sánchez MD When: as needed Test Results: Test results from this visit will be discussed in further detail at your follow- up appointment, if applicable. Discharge Plan Admission Primary Reason for Your Visit: Mediport/PEG insertion Attending Provider: Daniel Sánchez Primary Care Provider: Bulmaro Curtis Chi Instructions Print Language: [place] Discharge Orders/Prescriptions Prescriptions: New oxycodone-acetaminophen [Percocet] 5-325 mg tablet 1 tab PO Q8H PRN (Reason: pain) 3 Days Qty: 7 0RF Continued rivaroxaban 15 mg tablet 20 mg PO QHS Patient Comments: LAST DAY 06/28/24 FOR SURGERY ON 07/02/24 Rx Instructions: must administer with evening meal citalopram [Celexa] 20 mg tablet 20 mg PO QHS valsartan 320 mg tablet 320 mg PO QHS hydrochlorothiazide 12.5 mg tablet 12.5 mg PO QHS Zyrtec 10 mg capsule 10 mg PO DAILY PRN (Reason: allergy symptoms) Flonase Sensimist 27.5 mcg/actuation spray,suspension 2 spray intranasal DAILY PRN (Reason: allergy symptoms) Rx Instructions: into each nostril albuterol sulfate 90 mcg/actuation HFA aerosol inhaler 2 puff inhalation Q4H PRN (Reason: shortness of breath or wheezing) Qty: 1 6RF Rx Instructions: administer with spacer Breztri Aerosphere 160-9-4.8 mcg/actuation HFA aerosol inhaler 2 inh inhalation BID Qty: 10.7 6RF acetaminophen 500 mg capsule 500 mg PO Q6H PRN (Reason: pain) ondansetron 8 mg tablet,disintegrating 8 mg PO Q8H PRN (Reason: nausea and vomiting) Qty: 30 1RF lidocaine-prilocaine 2.5-2.5 % cream 1 applic topical ONCE PRN (Reason: port access) 30 Days Qty: 30 2RF atorvastatin 40 MG tablet 40 mg PO QHS cholecalciferol (vitamin D3) 1,000 UNIT tablet 1,000 unit PO DAILY acetaminophen-codeine 300-30 mg tablet 1 - 2 tab PO Q6H PRN PRN (Reason: pain) ibuprofen 600 mg tablet 600 mg PO Q6H PRN PRN (Reason: pain) Referrals / Follow Up: Bulmaro Crutis Chi, MD [Primary Care Provider] - Disposition Disposition (needs filled in before D/C Order can be placed): Home, Self Care 07/02/24 1233<Electronically signed by Daniel Sánchez MD>Daniel Sánchez MD CC: Dr. Bulmaro Curtis MD ~ Signed [facility] Work Phone: 1(656) 739-130304-10-2025 Consult note Author Newton Steen [facility] Note Date/Time July 02, 2024 12: 32pm [facility] Medical Records Department [address] [place] [address] Anesthesia Postop Eval I 07/02/24 1232 MR#: [id number] Acct: [id number] Name: ROBERT RON NAEL Rep #:[id number] : 1950 73 From: Newton Steen CRNA PCP: Dr. Bulmaro Curtis MD Status:REG S DC Y Race: C Location: [place] [address] Anesthesia: Postop Eval I Current Vital Signs Temperature: 97.4 F Pulse Rate: 72 Blood Pressure: 159/79 Respiratory Rate: 18 Pulse Ox: 93 Oxygen Delivery Method: Simple Mask Oxygen Flow Rate (L/min): 8 Assessment Airway patent: Yes Spontaneous unlabored respirations: Yes Mental status: Awake nausea: No Vomiting: No Anesthesia Complication: No Fluid Hydration Crystalloid volume administer (ml): 800 Total IV fluid infused: 800 Progress Note Anesthesia document: Postop Eval 1 completed: No 07/02/24 1232 <Electronically signed by Newton arreaga CRNA> Date _ Newton Steen CRNA Cosigner Signature: Date CC: ~ Signed [facility] Work Phone: [phone]) 197-530304-10-2025 Radiology Diagnostic study note [facility] Imaging Services [address] [place] [id number] CXR for Line Placement MR#: [id number] Acct: [id number] Name: ROBERT RON Rep #: [id number] : 1950 M 73 From: Albania Marks MD PCP: Dr. Bulmaro Curtis MD Status: REG S DC Study:CXR for Line Placement Date of Exam: 07/02/24 Exam# [id number] Ordering Dr: St mary Sánchez MD EXAM: AP UPRIGHT PORTABLE CHEST CLINICAL HISTORY: CHECKING FOR PORT PLACEMENT COMPARISON: NO RELEVANT PRIOR. TECHNIQUE: SINGLE AP UPRIGHT FRONTAL PROJECTION. FINDINGS: A left-sided MediPort is noted. Port and catheter placement adequately placed. Lungs: Lungs clear of pneumonia and congestion. Suspected mild subsegmental atelectasis, left lowerlung. Old healed granulomatous changes. Pleura: No pleural effusions, thickening, or pneumothorax. Heart: Normal in size and configuration. Mediastinum/Mee: Unremarkable. Great vessels: Unremarkable. Bones/soft tissues: Unremarkable. RAD/CXR for Line Placement IMPRESSION: 1. Satisfactory placement of left MediPort catheter. 2. No active cardiopulmonary disease. Reading Location: [place] [address] CC: Dr. Daniel Sánchez MD; Dr. Bulmaro Curtis MD ~ Brass Instrument Repair Technician: Signed [facility]04-10-2025 Consult note [facility] Medical Records Department [address] [place] [address] Anesthesia Postop Eval II 07/02/24 1259 MR#: [id number] Acct: [id number] Name: ROBERT RON Rep #:[id number] : 1950 73 From: oJvon Martin MD PCP: Dr. Bulmaro Curtis MD Status:REG S DC Y Race: C Location: [place] [address] Anesthesia Postop Eval I Sum Postop Eval Completion status Anesthesia document: Postop Eval 1 completed: No Anesthesia Postop Eval I Summary Anesthesia Postop Eval I Summary: Anesthesia Postop Eval I: Assessment Summary Airway patent Yes 07/02/24 12:32 LAUNCH LEADER.MEDM Spontaneous unlabored Yes 07/02/24 12:32 LAUNCH LEADER.MEDM respirations Mental status Awake 07/02/24 12:32 LAUNCH LEADER.MEDM nausea No 07/02/24 12:32 LAUNCH LEADER.MEDM Vomiting No 07/02/24 12:32 LAUNCH LEADER.MEDM Anesthesia Postop Eval I: Fluid Summary Crystalloid volume administer 800 07/02/24 12:32 LAUNCH LEADER.MEDM (ml) Colloids volume administered ( ml) Blood Product volume administered (ml) Total IV fluid infused 800 07/02/24 12:32 LAUNCH LEADER.MEDM Anesthesia Postop Eval I: Summary Notes Anesthesia Complication No 07/02/24 12:32 LAUNCH LEADER.MEDM Anesthesia Complication Comment: Post-operative progress note Anesthesia: Postop Eval II Evaluation Mental status: Awake and Calm Pain Level: 1 nausea: No Vomiting: No Complications Anesthesia Complication: No 07/02/24 1300 la > Date _ Jovon Anderson Signature: Date CC: ~ Signed [facility]04-10-2025 Procedure note [facility] Medical Records Department [address] [place] [address] Operative Report 07/02/24 1233 MR#: [id number] Acct: [id number] Name: ROBERT RON Rep #:[id number] : 1950 73 From: Daniel Sánchez MD PCP: Dr. Bulmaro Curtis MD Status:REG S FL Location: [place] [address] Problems Associated Problem List Diagnoses (1) Primary squamous cell carcinoma of base of tongue: Multi Select Codes Respiratory/Cardiovascular Resp/Cardiovascular CPT Codes: 42029 Insert tunneled cv cath Digestive Digestive CPT Codes: [address] gastrostomy tube Operative Report (Standard) Operative Information Date of Procedure: 07/02/24 Pre-Operative Diagnosis: Tongue cancer Post-Operative Diagnosis: Same Surgery/Procedure Performed: 1. Left subclavian Mediport placement with C arm 2. EGD 3. Percutaneous endoscopic gastrostomy tube placement (PEG) industrial automation specialist: No Type of Anesthesia: General and Local RN Documented Start/Stop Times: Operation Date: 07/02/24 10:45 Case Time Into Pre-Op 07/02/24 08:37 Anesthesia Start 07/02/24 11:57 Into Room 07/02/24 11:57 Procedure Start 07/02/24 12:01 Procedure End 07/02/24 12:15 Anesthesia End 07/02/24 12:26 Out of Room 07/02/24 12:26 Procedure Start Time: 12:01 Procedure Stop Time: 12:15 Select all DRAINS/GRAFTS/IMPLANTS that apply: Implanted device Implanted device details: 8 Vietnamese PowerPort Estimated Blood Loss: 5 mL Specimen collected: No Description of surgery: The patient is a 73-year-old male with a recently discovered squamous cell carcinoma of the tongue.He is to undergo chemotherapy and radiation therapy aspart of his treatment. His oncology team is requested Mediport placement as well as PEG tube placement. I saw him in the office to discuss this. We discussed the details of the planned procedure and he wishes to proceed. The patient was brought the operating room today following informed consent. Hewas placed supine onthe operative table with arms outstretched on arm boards. General endotracheal anesthesia was induced. Once adequately anesthetized his arms were placed on arm boards at his side. An axillary roll was placed betweenthe shoulder blades. The neck and chest regions were prepped and draped in the usualsterile manner. I was able to gain access to the left subclavian vein using the supplied needle andsyringe. Prior to doing so local anesthetic was injected into this area. I was able to gain access to the left subclavian vein on the first pass. The blood return was a dark red nonpulsatile venous ap pearing blood. Guidewire was then threaded through the aperture and the needle. The guidewire was then advanced and then secured to the drapes using curved hemostat. I then created a small pocket to accommodate the port hub. This area was injected with local anesthetic. A 15 blade was then used to make a skin incision. Bovie electrocautery was then used dissect down through subtendinous tissues down to the level of the chest wall. At this level a subcutaneous pocket was then created. Tubing wasthen tunneled into the larger incision and then brought up and out through a small incision at the entry pointof the guidewire. The tubing was then trimmed to about 23 cm. This was then attached to the port hub. The hub was then affixed to the chest wall using Prolene suture x 2. The dilator and tear-away sheath were then threaded over the guidewire. The guidewire and dilator were then removed thus leaving the sheath in place. The free end of the tubing was then threaded down the sheath. The sheath was then extracted while the tubing was advanced. Initially there was some degree of kink to the tubing near the skin. I was then able to straighten this out. This was confirmed with C arm. The port was then tested with injectable saline. It leeanna and flushed easily once the tubing was straightened out. It was then flushed with heparin. The incision was then closed using 3-0 Vicryl and 5-0 Vicryl. Skin glue was applied as dressing alongwith sterile 2 by twos and a large Tegaderm. He tolerated this portion of the procedure well. He was then reprepped for EGD/PEG. Hair of the abdomen was then trimmed. EGD scope was then inserted per mouth and was advanced into the stomach. I was ableto get into the first part of the duodenum.There were some small benign- appearing polyps. The stomach itself appeared grossly normal. I was able to select a suitable location for the PEG placement. I had good transillumination in the abdominal wall seemed relatively thin in this area. Local anesthetic wasthen injected. I was able to see theinjection needle entering into the stomachand was visible on EGD. A #11 blade was then used to makea small skin incision. The supplied needle and sheath were then inserted under direct visualization. This was then grasped using a snare. The needle was then removed and was replaced by the wire. Thewire was then grasped with the snare. Next the EGD scope was then removed. The wire was left in place. This was attached to the PEG tube this was then brought to out through the abdominal wall. It was secured at about 3 and half centimeters. The bumper was then applied along with a dressing. Patient tolerated this well. I reinserted the EGD scope and confirmed good positioning of the bumper against the anterior abdominal wall/stomach. An abdominal binder was placed. He was awakened anesthesia and taken to to recovery in good condition. Surgical Findings: See operative note Complications Complications: No Admit VTE Documentation VTE Present on Admission: No VTE Mechan Device Prophylaxis: SCD's VTE Pharm Prophylaxis ordered?: No Reason prophylaxis not ordered: Treatment Not Indicated 07/02/24 1245 Cosigner Signature (if applicable): CC: Dr. Daniel Sánchez MD; Dr. Bulmaro Curtis MD~ Signed [facility]04-10-2025 Discharge summary [facility] Medical Records Department [address] [place] [address] Instructions for Home/Discharge Instructions 07/02/24 1229 MR#: [id number] Acct: [id number] Name: ROBERT RON Rep #:[id number] : 1950 73 From: Daniel Sánchez MD PCP: Dr. Bulmaro Curtis MD Status:REG S DC Discharge Instructions Diet Discharge Diet: Light diet - advance as tolerated Activity Discharge Activity: Return to Normal Activity May shower in (days): 1 Dressing / Incision Call your doctor if your incision/area has: Continuous Slow Oozing, Sudden Increased Bleeding, Increased Pain/ Swelling, Increased Redness, Foul Smelling Discharge and Swelling at the incision site Call your doctor if you observe: Fever of 101 or Higher Remove Dressing in: 3 days Cleanse incision/area with: Soap & Water Follow Up Care Please Follow Up With: Daniel Sánchez MD When: as needed Test Results: Test results from this visit will be discussed in further detail at your follow- up appointment, if applicable. Discharge Plan Admission Primary Reason for Your Visit: Mediport/PEG insertion Attending Provider: Daniel Sánchez Primary Care Provider: Bulmaro Curtis Chi Instructions Print Language: [place]ican Discharge Orders/Prescriptions Prescriptions: New oxycodone-acetaminophen [Percocet] 5-325 mg tablet 1 tab PO Q8H PRN (Reason: pain) 3 Days Qty: 7 0RF Continued rivaroxaban 15 mg tablet 20 mg PO QHS Patient Comments: LAST DAY 06/28/24 FOR SURGERY ON 07/02/24 Rx Instructions: must administer with evening meal citalopram [Celexa] 20 mg tablet 20 mg PO QHS valsartan 320 mg tablet 320 mg PO QHS hydrochlorothiazide 12.5 mg tablet 12.5 mg PO QHS Zyrtec 10 mg capsule 10 mg PO DAILY PRN (Reason: allergy symptoms) Flonase Sensimist 27.5 mcg/actuation spray,suspension 2 spray intranasal DAILY PRN (Reason: allergy symptoms) Rx Instructions: into each nostril albuterol sulfate 90 mcg/actuation HFA aerosol inhaler 2 puff inhalation Q4H PRN (Reason: shortness of breath or wheezing) Qty: 1 6RF Rx Instructions: administer with spacer Breztri Aerosphere 160-9-4.8 mcg/actuation HFA aerosol inhaler 2 inh inhalation BID Qty: 10.7 6RF acetaminophen 500 mg capsule 500 mg PO Q6H PRN (Reason: pain) ondansetron 8 mg tablet,disintegrating 8 mg PO Q8H PRN (Reason: nausea and vomiting) Qty: 30 1RF lidocaine-prilocaine 2.5-2.5 % cream 1 applic topical ONCE PRN (Reason: port access) 30 Days Qty: 30 2RF atorvastatin 40 MG tablet 40 mg PO QHS cholecalciferol (vitamin D3) 1,000 UNIT tablet 1,000 unit PO DAILY acetaminophen-codeine 300-30 mg tablet 1 - 2 tab PO Q6H PRN PRN (Reason: pain) ibuprofen 600 mg tablet 600 mg PO Q6H PRN PRN (Reason: pain) Referrals / Follow Up: Bulmaro Curtis Chi, MD [Primary Care Provider] - Disposition Disposition (needs filled in before D/C Order can be placed): Home, Self Care 07/02/24 1233Stmary Sánchez MD CC: Dr. Bulmaro Curtis MD ~ Signed [facility]04-10-2025 Consult note [facility] Medical Records Department [address] [place] [address] Anesthesia Postop Eval I 07/02/24 1232 MR#: [id number] Acct: [id number] Name: ROBERT RON Rep #:[id number] : 1950 73 From: Newton Steen CRNA PCP: Dr. Bulmaro Curtis MD Status:REG S DC Y Race: C Location: [place] [address] Anesthesia: Postop Eval I Current Vital Signs Temperature: 97.4 F Pulse Rate: 72 Blood Pressure: 159/79 Respiratory Rate: 18 Pulse Ox: 93 Oxygen Delivery Method: Simple Mask Oxygen Flow Rate (L/min): 8 Assessment Airway patent: Yes Spontaneous unlabored respirations: Yes Mental status: Awake nausea: No Vomiting: No Anesthesia Complication: No Fluid Hydration Crystalloid volume administer (ml): 800 Total IV fluid infused: 800 Progress Note Anesthesia document: Postop Eval 1 completed: No 07/02/24 1232 ds LAUNCH LEADER> Date _ Newton Steen LAUNCH LEADER Cosigner Signature: Date CC: ~ Signed [facility]04-10-2025 Consult note Author Jovon Martin [facility] Note Date/Time July 02, 2024 10: 13am [facility] Medical Records Department [address] [place] [address] Pre-Anesthesia Evaluation 07/02/24 0948 MR#: [id number] Acct: [id number] Name: ROBERT RON Rep #:[id number] : 1950 73 From: Jovon Martin MD PCP: Dr. Bulmaro Curtis MD Status:REG S DC Y Race: C Location: [place] [address] ASA Classification* ASA Classification ASA Classification: 3 Assessment & Plan Anesthesia* Anesthesia Assessment Anesthesia Assessment: Discussed sedation and/or anesthesia options, risks, benefits, and alternatives with patient/parents/legal guardian/POA. Questions invited. The patient/parents/legal guardian/POA seems to understand and agrees to proceedwith anesthesia plan. Reviewed the physical assessment, medical history, allergy history and patient home medications list prior to surgery/procedure/anesthetic and documented any changes. Performed airway and anesthesia risk assessments. Anesthesia Type Anesthesia Type: General History Source History Obtained from:: Patient and Chart Anesthesia Focused Assessment* Temperature: 98.9 F Pulse Rate: 82 Blood Pressure: 161/69 Respiratory Rate: 18 Pulse Ox: 94 Oxygen Delivery Method: Room Air Airway Assessment Mouth opens: >3 cm Mallampati Score: IV Teeth Condition: Missing (Patient is edentulous.) Neck Range of motion (ROM): Full ROM Focused Labs Anesthesia Preop lab: CBC WBC 9.2 K/mm3 (4.4-11.0) 01/07/24 11:10 01/07/24 RBC 5.15 M/mm3 (4.6-6.2) 01/07/24 11:10 01/07/24 Hgb 14.9 g/dL (13.0-16.5) 01/07/24 11:10 01/07/24 Hct 47.9 % (40-54) 01/07/24 11:10 01/07/24 Plt Count 168 K/mm3 (150-450) 01/07/24 11:10 01/07/24 CHEMISTRY Potassium 4.1 mmol/L (3.5-5.1) 01/07/24 11:10 01/07/24 Sodium 137 mmol/L (136-145) 01/07/24 11:10 01/07/24 BUN 21 mg/dL (7-18) H 01/07/24 11:10 01/07/24 Creatinine 1.24 mg/dL (0.70-1.30) 01/07/24 11:10 01/07/24 Glucose 239 mg/dL (74-106) H 01/07/24 11:10 01/07/24 TSH 1.290 uIU/mL (0.358-3.740) 01/07/24 11:10 12/23 08/15 COAG PT 13.2 SECONDS (11.7-14.9) 05/15/22 07:42 Pre-Assessment Diagnosis/Proposed Procedure Planned Operative Procedure(s): (L) Insertion, Vascular Port & peg tube placement Anesthesia History 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 When Was Last Pacemaker Check QUESTION #4 FULL TEXT: You/Your Family Experience fever (hyperthermia) with Anesthesia Last Oral Intake Last Oral intake: Last Oral Intake NPO since 07:10 07/02/24 08:54 Meds taken in AM with sips of water? Meds patient instructed to take am of surgery Any additional information?: Yes NPO since: 07:10 (Patient water at 7:10 AM.) PONV PONV - field map technician: PONV - field map technician Female No 06/22/24 17:28 HX of Motion Sickness No 06/22/24 17:28 HX of N/V After Surgery No 06/22/24 17:28 Non-Smoker Yes 06/22/24 17:28 Duration of Surgery greater Yes 06/22/24 17:28 than 60 minutes Number of Risk Factors 2 06/22/24 17:28 PONV Score Moderate Risk 06/22/24 17:28 Height & Weight Height & Weight: Anesthesia: Height & Weight Height 6 ft 2 in 07/02/24 08:54 Weight: 141 kg 07/02/24 08:54 Body Mass Index (BMI) 39.9 07/02/24 08:54 Respiratory Assessment Respiratory Assessment - field map technician: Respiratory Tract Infection Hx - field map technician Hx Respiratory Tract Infection No 06/22/24 17:28 STOP Sleep Apnea STOP Sleep Apnea - field map technician: STOP Sleep Apnea - field map technician Hx Hypertension Yes: PER PT , CONTROLLED ON 06/22/24 17:28 MEDS Hx Sleep Apnea Yes 06/22/24 17:28 CPAP Yes 06/22/24 17:28 BIPAP No 06/22/24 17:28 Do you snore loudly (louder than talking or can be heard Do you often feel tired/ fatigued/ sleepy during daytime? Has anyone observed you stop breathing during sleep? STOP Results Positive 06/22/24 17:28 QUESTION #5 FULL TEXT : Do you snore loudly (louder than talking or can be heard through closed doors)? Tobacco Use History Tobacco Use History - field map technician: Tobacco Use History - field map technician Tobacco Use Smoking Status Former smoker 06/22/24 17:28 Hx Tobacco Use No 06/22/24 17:28 Years Smoking Packs Smoked per Day Smoking Cessation Date was Yes - quit smoking within 15 06/22/24 17:28 within the last 15 years years Hx Smoking Cessation Date 05/05/19 06/22/24 17:28 Hx Smoking Cessation Counseling Hematologic Medial History Hematologic Hx - field map technician: Hematologic Medical Hx - imaging technician Hx of Blood Transfusion No 06/22/24 17:28 Hx of Transfusion in last 3 No 06/22/24 17:28 Months Date of Last Transfusion (if within last 3 months) Ever experience any problems No 06/22/24 17:28 with transfusion(s)? Specify any problems Hx of Preganancy in last 3 N/A 06/22/24 17:28 Months Nurse Filling Out Transfusion MGRIFFITH 06/22/24 17:28 & Questions: Date: 06/22/24 06/22/24 17:28 Time: 17:30 06/22/24 17:28 Patient unable to answer at this time (ie. confused, unrespo /Reproduction History /Reproductive History - field map technician: /Reproductive Hx- field map technician Hx Now Gestational Age (in weeks): EDC: Hx Hx Para Hx Section SAB Active Medications Active Medications: Current Medications Generic Name Dose Route Start Last Admin Trade Name Freq PRN Reason Stop Dose Admin Cefazolin Sodium 3 gm/ N/A 30 mls @ 600 mls/hr 07/02/24 11:30 IV 07/02/24 11:32 PREOP ONE Sodium Chloride 1,000 mls @ 15 mls/hr 07/02/24 09:50 IV .Q48H WILMAN PFSH Medical History Encounter for education Wears glasses Edentulous High cholesterol Injury of head and neck History of hiatal hernia CPAP (continuous positive airway pressure) dependence Shortness of breath on exertion Former smoker History of edema History of echocardiogram COPD (chronic obstructive pulmonary disease) Tongue cancer Hyperglycemia Essential hypertension Hypoxia Saddle pulmonary embolus Home Medications ?Medication ?Instructions ?Recorded ?Last Taken ?Type atorvastatin 40 mg tablet 40 mg PO QHS 05/04/19 History cholecalciferol (vitamin D3) 25 1,000 unit PO DAILY foster pplement 05/04/19 05/04/19 History mcg (1,000 unit) tablet rivaroxaban 15 mg tablet 20 mg PO QHS 11/30/21 History citalopram 20 mg tablet (Celexa) 20 mg PO QHS 05/08/22 Unknown History albuterol sulfate 90 mcg/actuation 2 puff inhalation Q 4H PRN 07/31/23 Unknown Rx aerosol inhaler shortness of breath or wheez ing #1 ea budesonide 160 mcg-glycopyr 9 2 inh inhalation BID #10 .7 grams 07/31/23 Unknown Rx mcg-formot 4.8 mcg/actuation HFA inhaler (Breztri Aerosphere) cetirizine 10 mg capsule (Zyrtec) 10 mg PO DAILY PRN a llergy symptoms 07/31/23 Unknown History fluticasone furoate 27.5 2 spray intranasal DAILY PRN 07/31/23 Unknown History mcg/actuation nasal allergy symptoms spray,suspension (Flonase Sensimist) hydrochlorothiazide 12.5 mg tablet 12.5 mg PO QHS 11/15 Unknown History valsartan 320 mg tablet 320 mg PO QHS 07/31/23 Unkno wn History acetaminophen 500 mg capsule 500 mg PO Q6H PRN pain 07/01/24 History acetaminophen 300 mg-codeine 30 mg 1 - 2 tab PO Q6H OR N PRN pain 06/22/24 Unknown History tablet ibuprofen 600 mg tablet 600 mg PO Q6H PRN PRN pain 0 06/22/24 Unknown History lidocaine-prilocaine 2.5 %-2.5 % 1 applic topical ONCE PRN port 06/29/24 Unknown Rx topical cream access 30 days #30 grams ondansetron 8 mg disintegrating 8 mg PO Q8H PRN nausea and 06/29/24 Unknown Rx tablet vomiting #30 tabs Allergy/AdvReac Type Severity Reaction Status Date / Time Sulfa (Sulfonamide Allergy Rash Verified 07/02/24 08:52 Antibiotics) Family History Father Heart disease Mother Heart disease Lung disease Grandmother Cancer Grandfather Cancer Other Diabetes Surgical History History of surgery History of esophagogastroduodenoscopy (EGD) History of colonoscopy History of appendectomy History of tonsillectomy Cataracts, both eyes H/O parotidectomy Social History Smoking Status: Former smoker how long ago did patient quit smokin second hand exposure: Yes Review of Systems (Anesthesia) ROS Narrative System reviewed and no additional complaints, except as documented. 07/02/24 1013 <Electronically signed by Jovon dove MD> Date _ Jovon Martin MD Cosigner Signature: Date CC: ~ Signed [facility] Work Phone: [phone]) 311-599804-10-2025 History and physical note Author Daniel Sánchez [facility] Note Date/Time July 02, 2024 9:4 4am [facility] Medical Records Department [address] [place] [address] History & Physical Exam 07/02/24941 MR#: [id number] Acct: [id number] Name: ROBERT RON Rep #:[id number] : 1950 73 From: Daniel Sánchez MD PCP: Dr. 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 He presents today for port and PEG placement. He states that he is also scheduled to meet with someone to have all of his teeth removed prior to starting chemo and radiation. It is his understanding that they would like to wait 2 to 3 weeks after his dental procedures to begin head neck cancer treatments. He has a good understanding of the reasons for thePEG and port to be placed. [facility] Medical History (Updated 06/29/24 @ 10:55 by Ashly Laguerre COMPUTER NETWORK SUPPORT SPECIALIST, COMPUTER NETWORK SUPPORT SPECIALIST-C) Encounter for education Wears glasses Edentulous High cholesterol Injury of head and neck History of hiatal hernia CPAP (continuous positive airway pressure) dependence Shortness of breath on exertion Former smoker History of edema History of echocardiogram COPD (chronic obstructive pulmonary disease) Tongue cancer Hyperglycemia Essential hypertension Hypoxia Saddle pulmonary embolus Home Medications ?Medication ?Instructions ?Recorded ?Last Taken ?Type atorvastatin 40 mg tablet 40 mg PO QHS 05/04/19 History cholecalciferol (vitamin D3) 25 1,000 unit PO DAILY foster pplement 05/04/19 05/04/19 History mcg (1,000 unit) tablet rivaroxaban 15 mg tablet 20 mg PO QHS 11/30/21 History citalopram 20 mg tablet (Celexa) 20 mg PO QHS 05/08/22 Unknown History albuterol sulfate 90 mcg/actuation 2 puff inhalation Q 4H PRN 07/31/23 Unknown Rx aerosol inhaler shortness of breath or wheez ing #1 ea budesonide 160 mcg-glycopyr 9 2 inh inhalation BID #10 .7 grams 07/31/23 Unknown Rx mcg-formot 4.8 mcg/actuation HFA inhaler (Breztri Aerosphere) cetirizine 10 mg capsule (Zyrtec) 10 mg PO DAILY PRN a llergy symptoms 07/31/23 Unknown History fluticasone furoate 27.5 2 spray intranasal DAILY PRN 07/31/23 Unknown History mcg/actuation nasal allergy symptoms spray,suspension (Flonase Sensimist) hydrochlorothiazide 12.5 mg tablet 12.5 mg PO QHS 11/15 Unknown History valsartan 320 mg tablet 320 mg PO QHS 07/31/23 Unkno wn History acetaminophen 500 mg capsule 500 mg PO Q6H PRN pain 07/01/24 History acetaminophen 300 mg-codeine 30 mg 1 - 2 tab PO Q6H OR N PRN pain 06/22/24 Unknown History tablet ibuprofen 600 mg tablet 600 mg PO Q6H PRN PRN pain 0 06/22/24 Unknown History lidocaine-prilocaine 2.5 %-2.5 % 1 applic topical ONCE PRN port 06/29/24 Unknown Rx topical cream access 30 days #30 grams ondansetron 8 mg disintegrating 8 mg PO Q8H PRN nausea and 06/29/24 Unknown Rx tablet vomiting #30 tabs Allergy/AdvReac Type Severity Reaction Status Date / Time Sulfa (Sulfonamide Allergy Rash Verified 07/02/24 08:52 Antibiotics) Family History Father Heart disease Mother Heart disease Lung disease Grandmother Cancer Grandfather Cancer Other Diabetes Surgical History History of surgery History of esophagogastroduodenoscopy (EGD) History of colonoscopy History of appendectomy History of tonsillectomy Cataracts, both eyes H/O parotidectomy Social History Smoking Status: Former smoker how long ago did patient quit smokin second hand exposure: Yes Vital Signs Vital Signs Vital Signs: 07/02/24 08:54 07/02/24 08:54 Temperature 98.9 F Temperature Source Temporal Pulse Rate 82 Respiratory Rate 18 Respiratory Pattern Normal Blood Pressure 161/69 H Blood Pressure Mean 99 Blood Pressure Source Monitor Blood Pressure Position Semi-Fowlers Blood Pressure Location Left Arm Pulse Ox 94 Oxygen Delivery Method Room Air Weight Weight: 310 lb 13.628 oz Body Mass Index (BMI) 39.9 Physical Exam Const alert, oriented x3 and no apparent distress Assessment & Plan Assessment/Plan (1) Primary squamous cell carcinoma of base of tongue: PLAN: Plan PEG and port placement scheduled for today 07/02/24 0944 <Electronically signed by Daniel Sánchez MD> Cosigner Signature (if applicable): CC: Dr. Daniel Sánchez MD; Dr. Bulmaro Curtis MD~ Signed [facility] Work Phone: 1([phone]) 493-216804-10-2025 Consult note [facility] Medical Records Department [address] [place] [address] Pre-Anesthesia Evaluation 07/02/2448 MR#: [id number] Acct: [id number] Name: ROBERT ORN Rep #:[id number] : 1950 73 From: Jovon Martin MD PCP: Dr. Bulmaro Curtis MD Status:REG S DC Y Race: C Location: [place] [address] ASA Classification* ASA Classification ASA Classification: 3 Assessment & Plan Anesthesia* Anesthesia Assessment Anesthesia Assessment: Discussed sedation and/or anesthesia options, risks, benefits, and alternatives with patient/parents/legal guardian/POA. Questions invited. The patient/parents/legal guardian/POA seems to understand and agrees to proceedwith anesthesia plan. Reviewed the physical assessment, medical history, allergy history and patient home medications list prior to surgery/procedure/anesthetic and documented any changes. Performed airway and anesthesia risk assessments. Anesthesia Type Anesthesia Type: General History Source History Obtained from:: Patient and Chart Anesthesia Focused Assessment* Temperature: 98.9 F Pulse Rate: 82 Blood Pressure: 161/69 Respiratory Rate: 18 Pulse Ox: 94 Oxygen Delivery Method: Room Air Airway Assessment Mouth opens: >3 cm Mallampati Score: IV Teeth Condition: Missing (Patient is edentulous.) Neck Range of motion (ROM): Full ROM Focused Labs Anesthesia Preop lab: CBC WBC 9.2 K/mm3 (4.4-11.0) 01/07/24 11:10 01/07/24 RBC 5.15 M/mm3 (4.6-6.2) 01/07/24 11:10 01/07/24 Hgb 14.9 g/dL (13.0-16.5) 01/07/24 11:10 01/07/24 Hct 47.9 % (40-54) 01/07/24 11:10 01/07/24 Plt Count 168 K/mm3 (150-450) 01/07/24 11:10 01/07/24 CHEMISTRY Potassium 4.1 mmol/L (3.5-5.1) 01/07/24 11:10 01/07/24 Sodium 137 mmol/L (136-145) 01/07/24 11:10 01/07/24 BUN 21 mg/dL (7-18) H 01/07/24 11:10 01/07/24 Creatinine 1.24 mg/dL (0.70-1.30) 01/07/24 11:10 01/07/24 Glucose 239 mg/dL (74-106) H 01/07/24 11:10 01/07/24 TSH 1.290 uIU/mL (0.358-3.740) 01/07/24 11:10 12/23 08/15 COAG PT 13.2 SECONDS (11.7-14.9) 05/15/22 07:42 Pre-Assessment Diagnosis/Proposed Procedure Planned Operative Procedure(s): (L) Insertion, Vascular Port & peg tube placement Anesthesia History 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 When Was Last Pacemaker Check QUESTION #4 FULL TEXT: You/Your Family Experience fever (hyperthermia) with Anesthesia Last Oral Intake Last Oral intake: Last Oral Intake NPO since 07:10 07/02/24 08:54 Meds taken in AM with sips of water? Meds patient instructed to take am of surgery Any additional information?: Yes NPO since: 07:10 (Patient water at 7:10 AM.) PONV PONV - field map technician: PONV - field map technician Female No 06/22/24 17:28 HX of Motion Sickness No 06/22/24 17:28 HX of N/V After Surgery No 06/22/24 17:28 Non-Smoker Yes 06/22/24 17:28 Duration of Surgery greater Yes 06/22/24 17:28 than 60 minutes Number of Risk Factors 2 06/22/24 17:28 PONV Score Moderate Risk 06/22/24 17:28 Height & Weight Height & Weight: Anesthesia: Height & Weight Height 6 ft 2 in 07/02/24 08:54 Weight: 141 kg 07/02/24 08:54 Body Mass Index (BMI) 39.9 07/02/24 08:54 Respiratory Assessment Respiratory Assessment - field map technician: Respiratory Tract Infection Hx - field map technician Hx Respiratory Tract Infection No 06/22/24 17:28 STOP Sleep Apnea STOP Sleep Apnea - field map technician: STOP Sleep Apnea - field map technician Hx Hypertension Yes: PER PT , CONTROLLED ON 06/22/24 17:28 MEDS Hx Sleep Apnea Yes 06/22/24 17:28 CPAP Yes 06/22/24 17:28 BIPAP No 06/22/24 17:28 Do you snore loudly (louder than talking or can be heard Do you often feel tired/ fatigued/ sleepy during daytime? Has anyone observed you stop breathing during sleep? STOP Results Positive 06/22/24 17:28 QUESTION #5 FULL TEXT : Do you snore loudly (louder than talking or can be heard through closeddoors)? Tobacco Use History Tobacco Use History - field map technician: Tobacco Use History - field map technician Tobacco Use Smoking Status Former smoker 06/22/24 17:28 Hx Tobacco Use No 06/22/24 17:28 Years Smoking Packs Smoked per Day Smoking Cessation Date was Yes - quit smoking within 15 06/22/24 17:28 within the last 15 years years Hx Smoking Cessation Date 05/05/19 06/22/24 17:28 Hx Smoking Cessation Counseling Hematologic Medial History Hematologic Hx - field map technician: Hematologic Medical Hx - imaging technician Hx of Blood Transfusion No 06/22/24 17:28 Hx of Transfusion in last 3 No 06/22/24 17:28 Months Date of Last Transfusion (if within last 3 months) Ever experience any problems No 06/22/24 17:28 with transfusion(s)? Specify any problems Hx of Preganancy in last 3 N/A 06/22/24 17:28 Months Nurse Filling Out Transfusion MGRIFFITH 06/22/24 17:28 & Questions: Date: 06/22/24 06/22/24 17:28 Time: 17:30 06/22/24 17:28 Patient unable to answer at this time (ie. confused, unrespo /Reproduction History /Reproductive History - field map technician: /Reproductive Hx- field map technician Hx Now Gestational Age (in weeks): EDC: Hx Hx Para Hx Section SAB Active Medications Active Medications: Current Medications Generic Name Dose Route Start Last Admin Trade Name Freq PRN Reason Stop Dose Admin Cefazolin Sodium 3 gm/ N/A 30 mls @ 600 mls/hr 07/02/24 11:30 IV 07/02/24 11:32 PREOP ONE Sodium Chloride 1,000 mls @ 15 mls/hr 07/02/24 09:50 IV .Q48H WILMAN PFSH Medical History Encounter for education Wears glasses Edentulous High cholesterol Injury of head and neck History of hiatal hernia CPAP (continuous positive airway pressure) dependence Shortness of breath on exertion Former smoker History of edema History of echocardiogram COPD (chronic obstructive pulmonary disease) Tongue cancer Hyperglycemia Essential hypertension Hypoxia Saddle pulmonary embolus Home Medications ?Medication ?Instructions ?Recorded ?Last Taken ?Type atorvastatin 40 mg tablet 40 mg PO QHS 05/04/19 History cholecalciferol (vitamin D3) 25 1,000 unit PO DAILY fosetr pplement 05/04/19 05/04/19 History mcg (1,000 unit) tablet rivaroxaban 15 mg tablet 20 mg PO QHS 11/30/21 History citalopram 20 mg tablet (Celexa) 20 mg PO QHS 05/08/22 Unknown History albuterol sulfate 90 mcg/actuation 2 puff inhalation Q 4H PRN 07/31/23 Unknown Rx aerosol inhaler shortness of breath or wheez ing #1 ea budesonide 160 mcg-glycopyr 9 2 inh inhalation BID #10 .7 grams 07/31/23 Unknown Rx mcg-formot 4.8 mcg/actuation HFA inhaler (Breztri Aerosphere) cetirizine 10 mg capsule (Zyrtec) 10 mg PO DAILY PRN a llergy symptoms 07/31/23 Unknown History fluticasone furoate 27.5 2 spray intranasal DAILY PRN 07/31/23 Unknown History mcg/actuation nasal allergy symptoms spray,suspension (Flonase Sensimist) hydrochlorothiazide 12.5 mg tablet 12.5 mg PO QHS 11/15 Unknown History valsartan 320 mg tablet 320 mg PO QHS 07/31/23 Unkno wn History acetaminophen 500 mg capsule 500 mg PO Q6H PRN pain 07/01/24 History acetaminophen 300 mg-codeine 30 mg 1 - 2 tab PO Q6H OR N PRN pain 06/22/24 Unknown History tablet ibuprofen 600 mg tablet 600 mg PO Q6H PRN PRN pain 0 06/22/24 Unknown History lidocaine-prilocaine 2.5 %-2.5 % 1 applic topical ONCE PRN port 06/29/24 Unknown Rx topical cream access 30 days #30 grams ondansetron 8 mg disintegrating 8 mg PO Q8H PRN nausea and 06/29/24 Unknown Rx tablet vomiting #30 tabs Allergy/AdvReac Type Severity Reaction Status Date / Time Sulfa (Sulfonamide Allergy Rash Verified 07/02/24 08:52 Antibiotics) Family History Father Heart disease Mother Heart disease Lung disease Grandmother Cancer Grandfather Cancer Other Diabetes Surgical History History of surgery History of esophagogastroduodenoscopy (EGD) History of colonoscopy History of appendectomy History of tonsillectomy Cataracts, both eyes H/O parotidectomy Social History Smoking Status: Former smoker how long ago did patient quit smokin second hand exposure: Yes Review of Systems (Anesthesia) ROS Narrative System reviewed and no additional complaints, except as documented. 07/02/24 1013 petty ALVARENGA> Date _ Jovon Martin MD Cosigner Signature: Date CC: ~ Signed [facility]04-10-2025 History and physical note [facility] Medical Records Department [address] [place] [address] History & Physical Exam 07/02/24 0942 MR#: [id number] Acct: [id number] Name: ROBERT RON Rep #:[id number] : 1950 73 From: Daniel Sánchez MD PCP: Dr. 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 He presents today for port and PEG placement. He states that he is also scheduled to meet with someone to have all of his teeth removed prior to starting chemo and radiation. It is his understanding that they would like to wait 2 to 3 weeks after his dental procedures to begin head neck cancer treatments. He has a good understanding of the reasons for thePEG and port to be placed. [facility] Medical History (Updated 06/29/24 @ 10:55 by Ashly Laguerre COMPUTER NETWORK SUPPORT SPECIALIST, COMPUTER NETWORK SUPPORT SPECIALIST-C) Encounter for education Wears glasses Edentulous High cholesterol Injury of head and neck History of hiatal hernia CPAP (continuous positive airway pressure) dependence Shortness of breath on exertion Former smoker History of edema History of echocardiogram COPD (chronic obstructive pulmonary disease) Tongue cancer Hyperglycemia Essential hypertension Hypoxia Saddle pulmonary embolus Home Medications ?Medication ?Instructions ?Recorded ?Last Taken ?Type atorvastatin 40 mg tablet 40 mg PO QHS 05/04/19 History cholecalciferol (vitamin D3) 25 1,000 unit PO DAILY foster pplement 05/04/19 05/04/19 History mcg (1,000 unit) tablet rivaroxaban 15 mg tablet 20 mg PO QHS 11/30/21 History citalopram 20 mg tablet (Celexa) 20 mg PO QHS 05/08/22 Unknown History albuterol sulfate 90 mcg/actuation 2 puff inhalation Q 4H PRN 07/31/23 Unknown Rx aerosol inhaler shortness of breath or wheez ing #1 ea budesonide 160 mcg-glycopyr 9 2 inh inhalation BID #10 .7 grams 07/31/23 Unknown Rx mcg-formot 4.8 mcg/actuation HFA inhaler (Breztri Aerosphere) cetirizine 10 mg capsule (Zyrtec) 10 mg PO DAILY PRN a llergy symptoms 07/31/23 Unknown History fluticasone furoate 27.5 2 spray intranasal DAILY PRN 07/31/23 Unknown History mcg/actuation nasal allergy symptoms spray,suspension (Flonase Sensimist) hydrochlorothiazide 12.5 mg tablet 12.5 mg PO QHS 11/15 Unknown History valsartan 320 mg tablet 320 mg PO QHS 07/31/23 Unkno wn History acetaminophen 500 mg capsule 500 mg PO Q6H PRN pain 07/01/24 History acetaminophen 300 mg-codeine 30 mg 1 - 2 tab PO Q6H OR N PRN pain 06/22/24 Unknown History tablet ibuprofen 600 mg tablet 600 mg PO Q6H PRN PRN pain 0 06/22/24 Unknown History lidocaine-prilocaine 2.5 %-2.5 % 1 applic topical ONCE PRN port 06/29/24 Unknown Rx topical cream access 30 days #30 grams ondansetron 8 mg disintegrating 8 mg PO Q8H PRN nausea and 06/29/24 Unknown Rx tablet vomiting #30 tabs Allergy/AdvReac Type Severity Reaction Status Date / Time Sulfa (Sulfonamide Allergy Rash Verified 07/02/24 08:52 Antibiotics) Family History Father Heart disease Mother Heart disease Lung disease Grandmother Cancer Grandfather Cancer Other Diabetes Surgical History History of surgery History of esophagogastroduodenoscopy (EGD) History of colonoscopy History of appendectomy History of tonsillectomy Cataracts, both eyes H/O parotidectomy Social History Smoking Status: Former smoker how long ago did patient quit smokin second hand exposure: Yes Vital Signs Vital Signs Vital Signs: 07/02/24 08:54 07/02/24 08:54 Temperature 98.9 F Temperature Source Temporal Pulse Rate 82 Respiratory Rate 18 Respiratory Pattern Normal Blood Pressure 161/69 H Blood Pressure Mean 99 Blood Pressure Source Monitor Blood Pressure Position Semi-Fowlers Blood Pressure Location Left Arm Pulse Ox 94 Oxygen Delivery Method Room Air Weight Weight: 310 lb 13.628 oz Body Mass Index (BMI) 39.9 Physical Exam Const alert, oriented x3 and no apparent distress Assessment & Plan Assessment/Plan (1) Primary squamous cell carcinoma of base of tongue: PLAN: Plan PEG and port placement scheduled for today 07/02/24 0944 Cosigner Signature (if applicable): CC: Dr. Daniel Sánchez MD; Dr. Bulmaro Curtis MD~ Signed [facility]04-10-2025 [facility]03-20-2025 History of Present illness Narrative* Franco Sanchez DMD - 06/11/2024 11:46 AM EDT Teaching Physician Note: I saw and evaluated the patient. I personally obtained the jennings and critical portions of the historyand physical exam. I reviewed the resident's documentation and discussed the patient with the resident. I agree with the resident's medical decision making as documented in the resident's note. Franco Sanchez DMD * Delbert Molina DMD - 06/11/2024 9:43 AM EDT ORAL SURGERY PROCEDURE ROOM NOTE [facility] Surgical Product(s): Routine extraction of all remaining teeth (3,4,5,6,7,8,9,11,12,13,14,18,20,21,22,23,24,25,26,27,28,29,31,32) , alveoloplasty of x4 quadrants (UR/LR/LL/UL) and bilateral mandibular joaquim (LL/LR) removal under local anesthesia. Procedure done as clearance prior to chemo/radiation. PMH: Reviewed, no change. Antibiotic prophylaxis indicated/taken: no Discussed risks, benefits, and alternatives of treatment. All of the patient s questions were answered, and informed consent was obtained: yes Pre-op Diagnosis: Postoperative pain [[id number]] Chronic periodontal disease Caries PROCEDURE TIME OUT CHECK LIST 1. Radiograph is correctly matched to the patient,diagnostic quality, correctly oriented for laterality: Yes 2. Time out performed confirming correct surgical site and/or involved teeth verified by the patient and the surgeon: Yes Anesthesia: 2% Xylocaine with 1/100,000 epinephrine: 5 carpules, 4% articaine w/1:100,000 epi 3 carpules. 15 blade and 9 periosteal used to create a FTMPF adjacent to sites of intended extraction and joaquim removal. Teeth were delivered with elevators and forceps. Surgical handpiece and oval bur used to reduce joaquim, smoothed sharp areas with a bone file. Irrigated with copious amounts of NS. Packed extraction sites with gelfoam. Reapproximated tissue with 3-0 chromic gut. Adequate hemostasis achieved. Attending: Dr. Franco Sanchez MD, DMD Resident: Bev Mckeon DDS Assistants: RICHMOND Crystal Procedure in Detail: Complications: none Specimens: Intact teeth None Estimated blood loss: Minimal (<5 ml) Disposition: Home Bev Mckeon DDS documented in this [id number] NoteORAL SURGERY PROCEDURE ROOM NOTE [facility] Surgical Product(s): Routine extraction of all remaining teeth (3,4,5,6,7,8,9,11,12,13,14,18,20,21,22,23,24,25,26,27,28,29,31,32) , alveoloplasty of x4 quadrants (UR/LR/LL/UL) and bilateral mandibular joaquim (LL/LR) removal under local anesthesia. Procedure done as clearance prior to chemo/radiation. PMH: Reviewed, no change. Antibiotic prophylaxis indicated/taken: no Discussed risks, benefits, and alternatives of treatment. All of the patient's questions were answered, and informed consent was obtained: yes Pre-op Diagnosis: Postoperative pain [[id number]] Chronic periodontal disease Caries PROCEDURE TIME OUT CHECK LIST 1. Radiograph is correctly matched to the patient,diagnostic quality, correctly oriented for laterality: Yes 2. Time out performed confirming correct surgical site and/or involved teeth verified by the patient and the surgeon: Yes Anesthesia: 2% Xylocaine with 1/100,000 epinephrine: 5 carpules, 4% articaine w/1:100,000 epi 3 carpules. 15 blade and 9 periosteal used to create a FTMPF adjacent to sites of intended extraction and joaquim removal. Teeth were delivered with elevators and forceps. Surgical handpiece and oval bur used to reduce joaquim, smoothed sharp areas with a bone file. Irrigated with copious amounts of NS. Packed extraction sites with gelfoam. Reapproximated tissue with 3-0 chromic gut. Adequate hemostasis achieved. Attending: Dr. Franco Sanchez MD, DMD Resident: Bev Mckeon DDS Assistants: RICHMOND Crystal Procedure in Detail: Complications: none Specimens: Intact teeth None Estimated blood loss: Minimal (<5 ml) Disposition: Home Dari Diaz [facility]03-19-2025 NoteReached patient informed him medical clearance appt, no dental insurance on file, he will receive a bill, for our services per my color making supervisor, gave him the number to financial assistance to see if they can assist , he said thank you and will reach out now.[facility]03-19-2025 NoteReached patient informed him medical clearance appt, no dental insurance on file, he will receive a bill, for our services per my color making supervisor, gave him the number to financial assistance to see if they can assist , he said thank you and will reach out now.[facility]03-19-2025 NoteSituation: OS Procedure Insurance Ques Background: Pt is wanting to know if office submitted to insurance company and if they will be paying copay? Assessment: please contact pt to discuss Recommendation: Telephone Information[id number] Evaluation note* Diagnosis Onset Date Resolution Status Admit Date 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 May 26 12:55pm 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 June 02 3:29pm Encounter for insertion of venous access port acute June 03 9:24am Percutaneous endoscopic gastrostomy status acute June 03 9:24am Encounter for education acute A pri 2024 10:16am 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 June 29 10:16am 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 July 02 8:20am [facility] Work Phone: 1(155) 201-704103-04-2025 Evaluation note* Diagnosis Onset Date Resolution Status Admit Date 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 May 26 12:55pm 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 June 02 3:29pm Encounter for insertion of venous access port acute June 03 9:24am Percutaneous endoscopic gastrostomy status acute June 03 9:24am Encounter for education acute A pril 2024 10:16am 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 June 29 10:16am 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 July 02 8:20am 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 July 06 7:34am 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 July 08 8:43am Encounter for insertion of venous access port acute July 09 9:13am [facility] Work Phone: 1(285) 491-242903-04-2025 Evaluation note* Diagnosis Onset Date Resolution Status Admit Date 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 May 26 12:55pm 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 June 02 3:29pm Encounter for insertion of venous access port acute June 03 9:24am Percutaneous endoscopic gastrostomy status acute June 03 9:24am Encounter for education acute A pril 2024 10:16am 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 June 29 10:16am 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 July 02 8:20am 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 July 06 7:34am 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 July 08 8:43am Encounter for insertion of venous access port acute July 09 9:13am 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 July 13 7:51am S/P gastrostomy tube (G tube ) placement, follow-up exam acute July 13, 2024 8:47am 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 July 15 8:43am [facility] Work Phone: 1(942) 804-637603-04-2025 Evaluation note* Diagnosis Onset Date Resolution Status Admit Date 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 May 26 12:55pm 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 June 02 3:29pm Encounter for insertion of v enous access port acute June 03, 2024 9:24am Percutaneous endoscopic gastrostomy status acute June 03 9:24am Encounter for education acute A pril 2024 10:16am 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 June 29 10:16am 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 July 02 8:20am 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 July 06 7:34am 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 July 08 8:43am Encounter for insertion of v enous access port acute July 09, 2024 9:13am 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 July 13 7:51am S/P gastrostomy tube (G tube ) placement, follow-up exam acute July 13, 2024 8:47am 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 July 15 8:43am Chemotherapy management, encounter for acute July 20, 2024 7:42am 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 July 20 7:42am Dysphagia acute July 22 8:44am 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 July 22 8:44am S/P gastrostomy tube (G tube ) placement, follow-up exam acute July 22, 2024 9:35am 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 July 22 9:35am Chemotherapy management, encounter for acute July 27, 2024 7: 48am Oral mucositis acute July 27, 025 7:48am 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 July 27, 2024 7:48am 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 July 29, 2024 8:59am Chemotherapy management, encounter for acute August 03, 2024 7 :39am Oral mucositis acute August 03, 2024 7:39am Rash acute August 03, 2024 7:39am 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 acute August 03, 2024 7:39am 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 August 03, 2024 7:39am [facility] Work Phone: 1(919) 921-575303-04-2025 Evaluation note* Diagnosis Onset Date Resolution Status Admit Date 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 May 26 12:55pm 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 June 02 3:29pm Encounter for insertion of v enous access port acute June 03, 2024 9:24am Percutaneous endoscopic gastrostomy status acute June 03, 2 025 9:24am Encounter for education acute A pril 2024 10:16am 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 Zenaida 7th, 202 5 10:16am 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 July 02 8:20am 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 July 06 7:34am 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 July 08 8:43am Encounter for insertion of v enous access port acute July 09, 2024 9:13am 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 July 13 7:51am S/P gastrostomy tube (G tube ) placement, follow-up exam acute July 13, 2024 8:47am 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 July 15 8:43am Chemotherapy management, encounter for acute July 20, 2024 7:42am 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 July 20 7:42am Dysphagia acute July 22 8:44am 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 July 22 8:44am S/P gastrostomy tube (G tube ) placement, follow-up exam acute July 22, 2024 9:35am 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 July 22 9:35am Chemotherapy management, encounter for acute July 27, 2024 7: 48am Oral mucositis acute July 27, 025 7:48am 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 July 27, 2024 7:48am 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 July 29, 2024 8:59am Chemotherapy management, encounter for acute August 03, 2024 7 :39am Oral mucositis acute August 03, 2024 7:39am Rash acute August 03, 2024 7:39am 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 acute August 03, 2024 7:39am 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 August 03, 2024 7:39am 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 August 05, 2024 11:35am Chemotherapy management, encounter for acute August 10, 2024 7 :39am Epistaxis acute August 10, 2024 7:39am Oral mucositis acute August 10, 2024 7:39am Radiation-induced dermatitis acute August 10, 2024 7:39am Rash acute August 10, 2024 7:39am 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 August 10, 2024 7:39am [facility] Services Work Phone: [phone]) [phone] Evaluation note* Diagnosis Onset Date Resolution Status Admit Date Primary squamous cell carcin rosnana of base of tongue chronic May 26 12:55pm 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 June 02 3:29pm Encounter for insertion of v enous access port acute June 03, 2024 9:24am Percutaneous endoscopic gastrostomy status acute June 03 025 9:24am Encounter for education acute A [facility]2024 10:16am 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 June 29 10:16am 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 July 02 8:20am 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 July 06 7:34am 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 July 08 8:43am Encounter for insertion of v enous access port acute July 09, 2024 9:13am 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 July 13 7:51am S/P gastrostomy tube (G tube ) placement, follow-up exam acute July 13, 2024 8:47am 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 July 15 8:43am Chemotherapy management, encounter for acute July 20, 2024 7:42am 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 July 20 7:42am Dysphagia acute July 22 8:44am 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 July 22 8:44am S/P gastrostomy tube (G tube ) placement, follow-up exam acute July 22, 2024 9:35am 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 July 22 9:35am Chemotherapy management, encounter for acute July 27, 2024 7: 48am Oral mucositis acute July 27, 2 025 7:48am 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 July 27, 2024 7:48am 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 July 29, 2024 8:59am Chemotherapy management, encounter for acute August 03, 2024 7 :39am Oral mucositis acute August 03, 2024 7:39am Rash acute August 03, 2024 7:39am 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 acute August 03, 2024 7:39am 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 August 03, 2024 7:39am 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 August 05, 2024 11:35am Chemotherapy management, encounter for acute August 10, 2024 7 :39am Epistaxis acute August 10, 2024 7:39am Oral mucositis acute August 10, 2024 7:39am Radiation-induced dermatitis acute August 10, 2024 7:39am Rash acute August 10, 2024 7:39am 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 August 10, 2024 7:39am 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 August 12, 2024 12:47pm [facility] [employer] [facility] Work Phone: 1(491) 260-153103-04-2025 Evaluation note* Diagnosis Onset Date Resolution Status Admit Date 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 May 26 12:55pm 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 June 02 3:29pm Encounter for insertion of v enous access port acute June 03, 2024 9:24am Percutaneous endoscopic gastrostomy status acute June 03, 025 9:24am Encounter for education acute A pri2024 10:16am 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 June 29 10:16am 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 July 02 8:20am 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 July 06 7:34am 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 July 08 8:43am Encounter for insertion of v enous access port acute July 09, 2024 9:13am 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 July 13 7:51am S/P gastrostomy tube (G tube ) placement, follow-up exam acute July 13, 2024 8:47am 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 July 15 8:43am Chemotherapy management, encounter for acute July 20, 2024 7:42am 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 July 20 7:42am Dysphagia acute July 22 8:44am 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 July 22 8:44am S/P gastrostomy tube (G tube ) placement, follow-up exam acute July 22, 2024 9:35am 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 July 22 9:35am Chemotherapy management, encounter for acute July 27, 2024 7: 48am Oral mucositis acute July 27, 025 7:48am 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 July 27, 2024 7:48am 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 July 29, 2024 8:59am Chemotherapy management, encounter for acute August 03, 2024 7 :39am Oral mucositis acute August 03, 2024 7:39am Rash acute August 03, 2024 7:39am 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 acute August 03, 2024 7:39am 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 August 03, 2024 7:39am 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 August 05, 2024 11:35am Chemotherapy management, encounter for acute August 10, 2024 7 :39am Epistaxis acute August 10, 2024 7:39am Oral mucositis acute August 10, 2024 7:39am Radiation-induced dermatitis acute August 10, 2024 7:39am Rash acute August 10, 2024 7:39am 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 August 10, 2024 7:39am 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 August 12, 2024 12:47pm Chemotherapy management, encounter for acute August 18, 2024 7 :38am Epistaxis acute August 18, 2024 7:38am Oral mucositis acute August 18, 2024 7:38am Radiation-induced dermatitis acute August 18, 2024 7:38am Rash acute August 18, 2024 7:38am 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 August 18, 2024 7:38am [facility] Work Phone: 1([phone]) 581-517103-04-2025 Evaluation note* Diagnosis Onset Date Resolution Status Admit Date 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 May 26 12:55pm 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 June 02 3:29pm Encounter for insertion of v enous access port acute June 03, 2024 9:24am Percutaneous endoscopic gastrostomy status acute June 03 025 9:24am Encounter for education acute A pril 2024 10:16am 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 June 29 10:16am 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 July 02 8:20am 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 July 06 7:34am 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 July 08 8:43am Encounter for insertion of v enous access port acute July 09, 2024 9:13am 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 July 13 7:51am S/P gastrostomy tube (G tube ) placement, follow-up exam acute July 13, 2024 8:47am 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 July 15 8:43am Chemotherapy management, encounter for acute July 20, 2024 7:42am 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 July 20 7:42am Dysphagia acute July 22 8:44am 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 July 22 8:44am S/P gastrostomy tube (G tube ) placement, follow-up exam acute July 22, 2024 9:35am 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 July 22 9:35am Chemotherapy management, encounter for acute July 27, 2024 7: 48am Oral mucositis acute July 27 025 7:48am 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 July 27, 2024 7:48am 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 July 29, 2024 8:59am Chemotherapy management, encounter for acute August 03, 2024 7 :39am Oral mucositis acute August 03, 2024 7:39am Rash acute August 03, 2024 7:39am 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 acute August 03, 2024 7:39am 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 August 03, 2024 7:39am 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 August 05, 2024 11:35am Chemotherapy management, encounter for acute August 10, 2024 7 :39am Epistaxis acute August 10, 2024 7:39am Oral mucositis acute August 10, 2024 7:39am Radiation-induced dermatitis acute August 10, 2024 7:39am Rash acute August 10, 2024 7:39am 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 August 10, 2024 7:39am 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 August 12, 2024 12:47pm Chemotherapy management, encounter for acute August 18, 2024 7 :38am Epistaxis acute August 18, 2024 7:38am Oral mucositis acute August 18, 2024 7:38am Radiation-induced dermatitis acute August 18, 2024 7:38am Rash acute August 18, 2024 7:38am 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 August 18, 2024 7:38am 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 August 19, 2024 1:10pm [facility] [employer] [facility] Work Phone: 1([phone]) 190-675303-04-2025 Evaluation note* Diagnosis Onset Date Resolution Status Admit Date 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 May 26 12:55pm 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 June 02 3:29pm Encounter for insertion of v enous access port acute June 03, 2024 9:24am Percutaneous endoscopic gastrostomy status acute June 03, 2 025 9:24am Encounter for education acute A pril 2024 10:16am 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 June 29 10:16am 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 July 02 8:20am 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 July 06 7:34am 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 July 08 8:43am Encounter for insertion of v enous access port acute July 09, 2024 9:13am 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 July 13 7:51am S/P gastrostomy tube (G tube ) placement, follow-up exam acute July 13, 2024 8:47am 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 July 15 8:43am Chemotherapy management, encounter for acute July 20, 2024 7:42am 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 July 20 7:42am Dysphagia acute July 22 8:44am 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 July 22 8:44am S/P gastrostomy tube (G tube ) placement, follow-up exam acute July 22, 2024 9:35am 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 July 22 9:35am Chemotherapy management, encounter for acute July 27, 2024 7: 48am Oral mucositis acute July 27, 7:48am 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 July 27, 2024 7:48am 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 July 29, 2024 8:59am Chemotherapy management, encounter for acute August 03, 2024 7 :39am Oral mucositis acute August 03, 2024 7:39am Rash acute August 03, 2024 7:39am 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 acute August 03, 2024 7:39am 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 August 03, 2024 7:39am 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 August 05, 2024 11:35am Chemotherapy management, encounter for acute August 10, 2024 7 :39am Epistaxis acute August 10, 2024 7:39am Oral mucositis acute August 10, 2024 7:39am Rash acute August 10, 2024 7:39am 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 August 10, 2024 7:39am Radiation-induced dermatitis chronic August 10, 2024 7:39am 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 August 12, 2024 12:47pm Chemotherapy management, encounter for acute August 18, 2024 7 :38am Epistaxis acute August 18, 2024 7:38am Oral mucositis acute August 18, 2024 7:38am Rash acute August 18, 2024 7:38am 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 She said notes are on appointment notes but that she needs Pathology, Op notes and Ct scans sent separately. You can contact her at [phone] [facility] Note SPEECH LANGUAGE PATHOLOGY OUTPATIENT SWALLOW EVALUATION Patient identified by patient stating name and date of . Start Time: 1:50pm Stop Time: 2:30pm Total Treatment Minutes: 40 minutes Timed Code Treatments by Procedure: NA Total Timed Code Treatment Minutes: 0 minutes Un-Timed Code Treatments by Procedure: Clinical Dysphagia Evaluation Dysphagia Tx Total Un-Timed Code Treatment Minutes: 40 minutes Session #: 1 Payor: MEDICARE / Plan: MEDICARE PART A AND B / Product Type: Medicare Referring Provider: Simon Packer MD/ENT Date of Onset: 05/08/2024 Speech Medical History: Robert Ron is a 73 year old male with PMH significant for COPD, WALE on CPAP, hx of PE (2019) hx of left parotidectomy about 10 yrs (Dr. Dubois) who presents today, 05/13/2024, at the [facility] for evaluation of right neck mass, parotid lesion and base of tongue tumor. 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 Plan: chemoradiation in [place], likely PEG placement SUBJECTIVE: Patient subjective/goals: Pt arrives early and is seen in conjunction with ENT. He is cooperative throughout. Pain: pt reports intermittent right lateral neck pain, associated with enlarged lymph nodes Social History: lives with near [place] Occupational History: retired, worked at [employer] in [place] OBJECTIVE: SWALLOWING PATIENT REPORT Onset: pt reports difficulty with swallowing due to discomfort only since his biopsy General course of swallowing complaint: stable General Daily Intake Current Diet: Patient consuming unrestricted diet of regular solids and thin liquids. Supplemental nutrition: none Oral-Motor Examination Facies: WNL Labial range and strength: WNL Lingual range and strength: WNL, though pt reports some pain with lateralization to right Diadocokinetics: WNL Palate: WNL Jaw mobility: WNL Dentition: natural dentition, appears to be in generally fair-good repair Speech/Voice: WFL; pt reports some raspiness with voicing more recently, but no pain [place] Swallow Protocol: State: alert; maintained across session Brief Cognitive Screen: What is your Name?: + Where are you right now?: + What year is it?: + 3-ounce water swallow challenge: Positioning: upright in chair Mode of administration: cup rim sip, per patient preference Consecutive drinking of 3oz Thin water: able to complete; uninterrupted Cough/Throat Clear: absent . XX PASS: Complete and uninterrupted drinking of all 3 ounces (90cc) of water without overt signs of aspiration (I.e. coughing or choking, either during or immediate after completion) *The Sandra Swallow Protocol (YSP) is a standardized measure with high high sensitivity(96.5%) and negative prediction value (97.9%). 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 He presents characteristics consistent with mild oropharygneal dysphagia. Dysphagia is characterized by discomfort with swallowing. Instrumental evaluation of swallowing is not warranted at this time given normal swallow, but may be appropriate at some point during his planned chemoradiation. Recommend diet of regular solids and thin liquids as tolerated. Educated patient on anticipated side effects of chemoradiation, including dysphagia, dry mouth, lymphedema, etc. Pt is to seek further treatment closer to home. He was given the name of a speech pathologist closer to home, and advised to consult with his oncology team in [place] about [facility] associated with their team. He is welcome to return to [facility] for speech therapy, and is advised that I'd probably see him approximately 4 times during his chemoradiation, and 1-2 of those could be virtual. Reviewed all of the above and taught pt pharyngocize exercises, which he demonstrated in return. PLAN: Treatment Modalities: swallowing, lymphedema, dysarthrai Frequency of Visits: 2-4x/month Duration: unknown; may seek treatment elsewhere Rescue Worker Goals: 1. Patient will meet nutrition and hydration needs without pulmonary compromise with least restrictive PO diet. Short Term Goals: Patient will continue PO intake throughout medical oncology intervention to prevent muscle disuse atrophy. Patient will consume meals in under 30 minutes given use of strategies to improve swallowing efficiency and increase tolerance of PO intake as primary source of nutrition and hydration. Patient will implement compensatory strategies given written and verbal education to manage odynophagia, xerostomia, dysgeusia, fatigue, and control risk factors for aspiration. To strengthen and coordinate the swallow mechanism, patient will complete [id number] of effortful swallows. Patient will participate in head and neck lymphedema (more content not included)...[employer]02-19-2025 NoteWe will send referrals [facility] for: Medical Oncology (Chemotherapy) Radiation Oncology (Radiation Therapy) We will send a referral to [facility] for Speech Therapy: Linda Powers BeavEx [id number] Romel Robledo [facility] Work Phone: 1([phone]) [phone] Hospital Discharge instructions* Discharge Instructions* Steve Chery RN - 05/08/2024 8:51 AM EST Images from the original note were not included. DISCHARGE INSTRUCTIONS Robert Ron [id number] The following is a brief overview of your hospitalization. Some of the information contained on this summary may be confidential. This information should be kept in your records and should be shared with your regular doctor. Admission Date:05/08/2024 5:56 AM Discharge Date: No discharge date for patient encounter. PRINCIPAL DIAGNOSIS (reason after study for this admission): oropharyngeal mass Physicians: Attending: Dr. Packer Instructions: Restart your Xarelto the next day after surgery 05/09. Your voice may be hoarse after surgery, this is normal and should resolve with time. You may spit up a small amount of blood after surgery, this is also normal and should resolve with time. Call the office of Dr. Packer if bleeding is profuse or does not stop after a few days. Pain Control: Adequate management: Take Tylenol and Ibuprofen for pain Activity after Discharge: No heavy lifting, weight bearing as tolerated, no driving until mobility is returned to normal. Do not submerge wound(s) in standing water for 7 days after surgery (no tub bathing, swimming, or hot tubs). Do not lift, push or pull more than [address] for [address] or operate heavy machinery while taking narcotic pain medications as these medications can alter perception, impairjudgement, and slow reaction times. Diet: Advance diet as tolerated. Usually people do well starting with liquids or softer foods and gradually resuming to normal diet. Follow-Up: Follow up with Dr. Packer as scheduled on 05/13. You may also be scheduled for additional imaging. Future Appointments Date Time Provider Department Center 05/13/2024 1:15 PM Simon Packer MD ENT [facility] 05/13/2024 2:00 PM Kristofer Anderson, [facility] SPEECH ENT [facility] 05/13/2024 3:[address] RD OncMed [facility] 05/22/2024 11:00 AM Sunny Wagner DDS [facility] [place] PERIOPERATIVE DISCHARGE/HOME-GOING INSTRUCTIONS ANESTHESIA - GENERAL (ADULT) If a problem arises, you may contact your physician by calling [phone] and asking for the resident rehabilitation worker for ENT service. Special Care Needs: Activity: Rest at home today and tomorrow, then progress to your regular activities as tolerated. Diet: Clear liquids are best tolerated at first. If you are not nauseated, you can progress your diet to solid foods as tolerated. Possible post-operative precautions: Call you doctor or clinic for: 1. Signs of infection such as fever or chills. 2. Severe pain that in not relieved by Tylenol or your pain medicine prescription. 3. You may have a sore throat - it is usually gone in 1 to 2 days. Post-anesthesia safety: Possible side effects include drowsiness, dizziness, or inability to think clearly. For your safety, do not drive, drink alcoholic beverages, take any unprescribed medication or make any important decisions for 24 hours. A responsible adult should be with you for 24 hours. If no urine by 5pm or you become very uncomfortable and can t urinate, call [phone] or come to the emergency room. A risk of anesthesia is post operative nausea and/or vomiting (PONV). Certain patients?are at higher risk than others. Talk to your anesthesiologist about the plan to minimize this risk. In?general, it is best to start with only ice chips or small sips of water, then progress to clear, non-alcoholic fluids. You do not have to eat if you do not feel like it; fluids?are the most important in?the first?24 hours after surgery. If you start to eat, try bananas, applesauce, plain toast, saltine crackers, or broth; avoid fried or fatty foods. Make sure to eat something about 15 minutes before takingany pain medications. Seek medical attention for any prolonged?PONV and signs of dehydration. PERIOPERATIVE DISCHARGE/HOME-GOING INSTRUCTIONS Obstructive Sleep Apnea (WALE) Recommendations: Sleep apnea, if untreated, can affect how you feel, but also increases the risk of developing serious medical conditions such as high blood pressure, heart disease, stroke, and diabetes. We encourage you to talk to your primary care provider about this issue. You can also make an appointment with the sleep clinic at [phone] to be evaluated and scheduled for the recommended sleepstudy. If you have a CPAP or BiPAP machine you use for your WALE, use it today if you take a nap in addition to your usual nightly use (unless directed not to by your surgeon). If you experience an emergency with your breathing, you or your family member should immediately call 911. Falls Prevention Each year, 1 in every 3 adults over the age of 65 are treated for fall-related injuries. The risk of falling increases with each decade of life. The good news is, many falls are preventable. Here are some fall prevention tips: Exercise can increase strength and improve balance, making falls much less likely. For more informati on visit: http://[facility].org/services/riqk-qesvyd-yt-your-health/a-matte o-uj-cxqnqsk/ Some medications or combinations of medications can lead to side effects that cause falls. Have a doctor or pharmacist review all medications to help reduce the chance of risky side effects. Poor vision can lead to falls. Have your eyes checked every year. Ensure that your glasses are the correct strength. Eliminate hazards in your home by completing this home safety checklist. Remove things you can trip over from stairs and places you walk Install handrails and lights on all staircases. Remove small throw rugs or use double-sided tape to keep rugs from slipping. Keep items you use often in cabinets you can reach easily without using a step stool. Put grab bars inside and next to the tub or shower and next to your toilet.Use non-slip mats in thebathtub and on shower floors. Improve the lighting in your home. Hang lightweight curtains or shades to reduce glare. Wear shoes both inside and outside the house. Avoid going barefoot or wearing slippers. To lower the risk of hip fractures: Get adequate calcium and vitamin D, from food and/or supplements. Do weight bearing exercise. Get screened for osteoporosis and treated if needed documented in this [id number] Surgery Surgical operation note* OP Note - Simon Packer MD - 05/08/2024 7:47 AM EST Operative Report DATE OF SERVICE: 05/08/24 PATIENT: Robert Ron PREOPERATIVE DIAGNOSIS: 1. Oropharyngeal mass POSTOPERATIVE DIAGNOSIS: 1. Oropharyngeal mass, squamous cell carcinoma PROCEDURE: Direct laryngoscopy with biopsy, CPT 77758 SURGEON: Simon Packer MD PLANNING SUPERVISOR: Resident surgeons: MD Jimenez Craig MD ANESTHESIA: General ESTIMATED BLOOD LOSS: Minimal COMPLICATIONS: None SPECIMENS: 1. Right base of tongue x2; one for frozen and one for permanent INTRAOPERATIVE FINDINGS: 1. 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 Biopsies obtained from above lesion, frozen specimen positive for squamous cell carcinoma INDICATIONS AND CONSENT: Robert Ron is a 73-year-old male former smoker, COPD, WALE, history of PE on Xarelto, history of left parotidectomy for Warthin's tumor who presents with right-sided lymphadenopathy and base of tongue lesion concerning for malignancy. They were therefore offered the aforementioned procedures. After the risks, benefits, indications and alternatives were discussed with the patient, they elected to proceed. Informed consent was obtained DESCRIPTION OF PROCEDURE: On 05/08/24, the patient was identified in the preoperative area, consent confirmed, and transported to the OR. They were transferred to the OR table in a supine position. After induction of general anesthesia, a surgeon initiated time out was performed. The bed was rotated 90 degrees. The patient was then draped appropriately. The eyes were protected. The oral cavity was first examined and palpated. The laryngoscope was then atraumatically inserted into the oral cavity and examination of the oral cavity, oropharynx, hypopharynx and larynx was performed in a sequential manner at that time. Examination of these areas revealed friable exophytic lesion at the right base of tongue as noted above. This was biopsied and sent for pathologic analysis. We then proceeded with rigid esophagoscopy. Due to difficulty passing beyond the post-cricoid region and upper cervical esophagus, we did not proceed with this portion of the procedure. This concluded our procedure. The patient tolerated the procedure well without any apparent immediate post operative complications. The patient was rotated back to their original position, gently awakened from general anesthesia and taken to the PACU in stable condition. Dr. Packer was present for the entire procedure. [id number] Miscellaneous Notes* OP Note - Simon Packer MD - 05/08/2024 7:47 AM EST Operative Report DATE OF SERVICE: 05/08/24 PATIENT: Robert Ron PREOPERATIVE DIAGNOSIS: 1. Oropharyngeal mass POSTOPERATIVE DIAGNOSIS: 1. Oropharyngeal mass, squamous cell carcinoma PROCEDURE: Direct laryngoscopy with biopsy, CPT 72660 SURGEON: Simon Packer MD PLANNING SUPERVISOR: Resident surgeons: MD Jimenez Craig MD ANESTHESIA: General ESTIMATED BLOOD LOSS: Minimal COMPLICATIONS: None SPECIMENS: 1. Right base of tongue x2; one for frozen and one for permanent INTRAOPERATIVE FINDINGS: 1. 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 Biopsies obtained from above lesion, frozen specimen positive for squamous cell carcinoma INDICATIONS AND CONSENT: Robert Ron is a 73-year-old male former smoker, COPD, WALE, history of PE on Xarelto, history of left parotidectomy for Warthin's tumor who presents with right-sided lymphadenopathy and base of tongue lesion concerning for malignancy. They were therefore offered the aforementioned procedures. After the risks, benefits, indications and alternatives were discussed with the patient, they elected to proceed. Informed consent was obtained DESCRIPTION OF PROCEDURE: On 05/08/24, the patient was identified in the preoperative area, consent confirmed, and transported to the OR. They were transferred to the OR table in a supine position. After induction of general anesthesia, a surgeon initiated time out was performed. The bed was rotated 90 degrees. The patient was then draped appropriately. The eyes were protected. The oral cavity was first examined and palpated. The laryngoscope was then atraumatically inserted into the oral cavity and examination of the oral cavity, oropharynx, hypopharynx and larynx was performed in a sequential manner at that time. Examination of these areas revealed friable exophytic lesion at the right base of tongue as noted above. This was biopsied and sent for pathologic analysis. We then proceeded with rigid esophagoscopy. Due to difficulty passing beyond the post-cricoid region and upper cervical esophagus, we did not proceed with this portion of the procedure. This concluded our procedure. The patient tolerated the procedure well without any apparent immediate post operative complications. The patient was rotated back to their original position, gently awakened from general anesthesia and taken to the PACU in stable condition. Dr. Packer was present for the entire procedure. * Blood Attestation - Arnie Mcgrath MD - 05/08/2024 7:15 AM EST Blood Attestation: ATTESTATION OF INFORMED CONSENT FOR BLOOD: The transfusion of blood and/or blood components were discussed with the patient and/or legal health and safety representative. The risks, benefits and alternatives were reviewed. Questions regarding blood transfusions were answered. The patient /or the patient s legal health and safety representative agree with the plan for transfusion of blood and/or blood components. documented in this [id number] Progress note* Blood Attestation - Arnie Mcgrath MD - 05/08/2024 7:15 AM EST Blood Attestation: ATTESTATION OF INFORMED CONSENT FOR BLOOD: The transfusion of blood and/or blood components were discussed with the patient and/or legal health and safety representative. The risks, benefits and alternatives were reviewed. Questions regarding blood transfusions were answered. The patient /or the patient s legal health and safety representative agree with the plan for transfusion of blood and/or blood components. [facility] Work Phone: [phone] [phone] Telephone encounter Note* Telephone Encounter - Cindy Newell RN - 05/05/2024 1:56 PM EST Reached patient, who is advised of scheduled speech, nutrition and ENT appointments as well as dental. He states that he has called his local dentist as well. If he can get in to them sooner, he will call and provide information so we can send dental clearance checklist. Cindy Newell RN [facility] Work Phone: [phone] 161-423902-11-2025 Miscellaneous Notes* Telephone Encounter - Cindy Newell RN - 05/05/2024 1:56 PM EST Reached patient, who is advised of scheduled speech, nutrition and ENT appointments as well as dental. He states that he has called his local dentist as well. If he can get in to them sooner, he will call and provide information so we can send dental clearance checklist. Cindy Newell, RN documented in this [id number] NoteSW attempted to make Distress Screen outreach call to Pt, but Pt didn't answer the phone. SW left a message explaining reason for call and requesting a return call. SW will remain available. SHANIA Rodriguez [id number] [facility] [id number] Telephone encounter Note* Telephone Encounter - Gela Kelly LSW - 05/04/2024 10:27 AM EST SW attempted to make Distress Screen outreach call to Pt, but Pt didn't answer the phone. SW left amessage explaining reason for call and requesting a return call. SW will remain available. SHANIA Rodriguez [id number] [facility] Work Phone: [phone] Miscellaneous Notes* Telephone Encounter - Gela Kelly LSW - 05/04/2024 10:27 AM EST SW attempted to make Distress Screen outreach call to Pt, but Pt didn't answer the phone. SW left amessage explaining reason for call and requesting a return call. SW will remain available. SHANIA Rodriguez [id number] documented in this [id number] Instructions* Patient Instructions* Evie Blank APRN-CNP - 04/28/2024 12:44 PM EST On the morning of your surgery, please take only the following medications, with a small sip of water: albuterol (PROVENTIL HFA) INHALATION HFA inhaler (VENTOLIN,PROAIR,PROVENTIL) 90mcg citalopram (CeleXA) 20 MG tablet Hold valsartan and hydroCHLOROthiazide in the morning of you surgery Hold Xarelto 2 days prior procedure , last dose on 05/05 Do not take Ibuprofen, Aleve, Advil, Motrin or any other NSAIDS (celebrex, meloxicam, naproxen, diclofenac) 3 days before surgery. May take over the counter Acetaminophen (Tylenol) as needed for pain. Please hold all Vitamin E, [place] 3, fish oil and herbal supplements for 1 week prior to surgery. You will receive a call the day before surgery between 10 am and 3 pm notifying you what time to arrive for surgery. Eating and drinking before surgery: Adult Patients: No food or drink for 8 hours prior to surgery check in time. Plain water is allowed up to 2 hours prior to your surgery arrival time. A sip of water with approved morning medications is acceptable. Post-op Nausea and Vomiting: A risk of anesthesia is nausea and/or vomiting (PONV). Certain patients are at higher risk than others. Talk to your anesthesiologist about the plan to minimize this risk. In general, it is best to start with only ice chips or small sips of water, then progress to clear, non-alcoholic fluids. You do not have to eat if you do not feel like it; fluids are the most important in the first 24 hours after surgery. If you start to eat, try bananas, applesauce, plain toast, saltine crackers, or broth; avoid fried or fatty foods. Make sure to eat something about 15 minutes before taking any pain medications. Seek medical attention for any prolonged PONV and signs of dehydration. Patients whose assigned sex at was female, and are starting puberty or beyond, will be urine tested for per hospital policy. Please use this CHECKLIST to prepare for your surgery/procedure: ? Assume that any lab or testing done during your Pre-admission testing appointment is within normal limits unless otherwise contacted. ? Expect a call from [facility] one business day prior to surgery for surgery arrival time and location. ? Please plan to restart your medications the day after surgery unless otherwise explicitly instructed. ? Please contact your surgeon s/proceduralist s office for any surgical or recovery types of questions. ? CANCELLING YOUR SURGERY/PROCEDURE: If you get a cold, are not feeling well, or become , please call your surgeon s office as soon as possible. ? Refer to your Preparing for Your Surgery/Procedure booklet or [email or web address] if you have questions. Contact the Pre-Admission Testing department at [phone] or your surgeon's office with any questions that are not answered. ON THE DAY OF SURGERY: ? DO bring your ID, insurance card, medication list, and a small amount of izquierdo for filling prescriptions and any medical co-pays. ? Do NOT wear any jewelry, (including rings, earrings, or mouth, tongue, or body piercings). Metal jewelry could cause constriction, amputation, or roberts. Loose or bulky things in your mouth can be unsafe and result in breathing problems. ? DO bring glasses if you wear contacts and other assistance items such as oxygen, inhaler, cane, walker, etc. ? Do NOT bring valuables, credit cards, or large amounts of izquierdo. ? Do NOT wear lotion or strong-smelling fragrance (perfume, cologne, cream or lotion). ? ARRANGE FOR A RIDE: If you are scheduled to go home the same day of surgery, a responsible adult MUST drive or accompany you home in a car, cab, shared ride service, or Metro-van. You will not be allowed to drive yourself home or travel home alone. Your surgery may be cancelled if you do not have a ride. A responsible adult must stay with you after surgery. [facility] if you need [facility] assistance or have concerns about going home [phone]. ? SLEEP APNEA PATIENTS: Bring your sleep apnea machine and mask. ? PLEASE BE ON TIME. A late arrival may result in the cancellation/ delay of your surgery. [facility] you [facility]; it is our pleasure to care for you documented in this [id number] Consult note* Evie Blank APRN-CNP - 04/28/2024 12:43 PM EST Images from the original note were not included. Pre-Admission Testing Consultation Robert Ron, [id number] 73 year old Male 04/29/2024 Consult placed to [facility] by Dr. Packer due to significant PMH of PE [facility] Triage Risk Score Total Score: 5 2 Patient is receiving or has recently received anticoagulation therapy. 2 Patient is on more than 2 antihypertension medications. 1 Patient has an elevated BMI recorded in the past 30 days Robert Ron is scheduled for LARYNGOSCOPY, DIRECT, ESOPHAGOSCOPY RIGID on 05/08/2024. 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 Treatments have not been effective ,no longer effective ,no alternate treatment options available.Surgical intervention warranted . Patient is here for pre-admission optimization and education prior to surgery. RECENT ILLNESS: Serious illness or hospitalization within the last six months. No STOP BANG: STOP-BANG Row Name 04/28/24 1308 History of sleep apnea? 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 Social History Tobacco Use Smoking status: Former Types: Cigarettes Smokeless tobacco: Never Substance Use Topics Alcohol use: Not Currently Drug use: Not Currently MEDICAL HISTORY: No past medical history on file. SURGICAL HISTORY: No past surgical history on file. Past Medical History and Review of Systems Pulmonary (+) sleep apnea on CPAP, COPD, shortness of breath, PE (2019) Dental - negative ROS Endo (+) diabetes mellitus Comment: L parotidectomy Neuro/Psych (+) depression Cardiovascular (+) hypertension Comment: Denies CP, syncope or palpitations GI/Hepatic/Renal - negative ROS Heme/Other Other ROS: Warthin's tumor Oropharyngeal mass PREVIOUS ANESTHETIC COMPLICATIONS: no history of difficult intubation , adverse effects of anesthetic agents, or family history of anesthesia-related problems, nor malignant hyperthermia, hx of previous anesthesia, and Sister: PONV CURRENT MEDICATION LIST: Current Outpatient Medications Medication Sig Dispense Refill Rivaroxaban (Xarelto) 20 MG tablet Take 20 mg by mouth daily (with dinner). metformin (GLUCOPHAGE-XR) 500 MG XR tablet Take 500 mg by mouth 2 times daily. (Patient not taking:Reported on 04/28/2024) Paxlovid, 300/100, 20 x 150 MG & 10 x 100MG tablet therapy pack See admin instructions. valsartan (DIOVAN) 320 MG tablet Take 320 mg by mouth daily. albuterol (PROVENTIL HFA) INHALATION HFA inhaler (VENTOLIN,PROAIR,PROVENTIL) 90mcg INHALE 2 PUFFS BY MOUTH EVERY 4 HOURS NEEDED SHORTNESS OF BREATH OR FOR WHEEZING atorvastatin (LIPITOR) 40 mg tablet Take 40 mg by mouth at bedtime. Cetirizine HCl 10 MG CAPS Take by mouth. (Patient not taking: Reported on 04/28/2024) citalopram (CeleXA) 20 MG tablet Take 20 mg by mouth daily. fluticasone furoate (VERAMYST) 27.5 MCG/SPRAY nasal inhaler Use in each nostril. (Patient not taking: Reported on 04/28/2024) hydroCHLOROthiazide (HYDRODIURIL) 12.5 MG tablet Take 12.5 mg by mouth daily. hydrocortisone 2.5 % cream Hydrocortisone (Anusol-Hc) 2.5 % cream with perineal applicator Active 1APPLIC RC DAILY December 17, 2022 12:00am (Patient not taking: Reported on 04/28/2024) No current facility-administered medications for this visit. HEIGHT: 6' 2 WEIGHT: Weight was 144.2 kg on 04/28/2024 BMI: 40.93 VITAL SIGNS: BP 131/69 Pulse 90 Resp 16 Ht 1.88 m (6' 2) Wt (!) 144.6 kg (318 lb 12.8 oz) SpO2 96% BMI 40.93 kg/m PAIN ASSESSMENT: Severity: 2 Location: R neck side AIRWAY EXAM: Mallampati score: 3 TMD: Adequate Neck Extension/ Flexion: Adequate Mouth Opening: Adequate Dentition: Intact Micrognathia/Overbite: No FUNCTIONAL CAPACITY: mets around 4, able to do daily adls/grocery shopping, able to walk 0.75 block, Limited due to sob PHYSICAL EXAM: Eyes: Wears glasses ENT: Deferred Pulmonary: Chest clear to auscultation bilaterally Cardiovascular: RRR with S1S2 and No murmurs, gallops, or rubs Abdomen: Deferred Extremities: No gross or obvious abnormalities Neurologic: Awake, alert, oriented Psychiatric: alert and oriented to person, place and time Skin: No gross or obvious abnormalities on visible skin Assessment and Plan: 1) Pre-Admission Evaluation 2) Pre-Op Diagnosis Codes: * Neck mass [R22.1] * 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] * Oropharyngeal mass [J39.2]Proceed to surgery 3) HTN - Hold valsartan and hydroCHLOROthiazide in the morning of you surgery 4) h/o PE- Hold Xarelto 2 days prior procedure, PCP at [facility] notified ( see scan doc) LABS, TESTS, CONSULTS ORDERED: Orders & Meds Signed During This Encounter Basic Metabolic Panel Complete Blood Count Rivaroxaban (Xarelto) 20 MG tablet EKG 12 LEAD - PERFORM LABORATORY DATA: CBC (last 3 years, up to 8 values) 04/28/2024 1:31 PM WBC 9.8 RBC 5.04 Hgb 15.1 Hct 45.6 MCV 91 RDW 15.0 Plt 168 BMP (last 3 years, up to 8 values) 04/28/2024 1:31 PM Na 139 K 4.1 Cl 102 CO2 24 Gap 17 Glu 181 BUN 22 Cr 0.99 Ca 9.7 eGFR 81 TESTS REVIEWED: I personally reviewed and interpreting and findings were: CXRay: No Chest x-ray found EK04/28/2024 Sinus rhythm with 1st degree AV block Nonspecific ST abnormality Prolonged QT interval or tu fusion, consider myocardial disease, electrolyte imbalance, or drug effects Abnormal ECG Confirmed by LYDIA ECHO: Echocardiogram date: Not Found Stress test date: Last StressTest: none found going back to 04/17/2024 Patient is medically optimized for surgery. This note will be forwarded to the referring provider. Patient should follow up with referring provider. Patient has been directed to discuss specific recovery questions with his/her surgeon/proceduralist. Attestation: I have spent 40 total minutes. Visit activities: - preparing to see the patient (e.g., review of tests) - obtaining and/or reviewing separately obtained history - performing a medically appropriate examination and/or evaluation - counseling and educating the patient/family/caregiver - ordering medications, tests, or procedures - documenting clinical information in the electronic or other health record Interviewer signature: DIEGO Shearer 7:47 AM 04/29/2024 [id number] NotePre-Admission Testing Consultation Robert Ron, [id number] 73 year old Male 04/29/2024 Consult placed to [facility] by Dr. Packer due to significant PMH of PE PAT Triage Risk Score Total Score: 5 2 Patient is receiving or has recently received anticoagulation therapy. 2 Patient is on more than 2 antihypertension medications. 1 Patient has an elevated BMI recorded in the past 30 days Robert Ron is scheduled for LARYNGOSCOPY, DIRECT, ESOPHAGOSCOPY RIGID on 05/08/2024. 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 Treatments have not been effective ,no longer effective ,no alternate treatment options available.Surgical intervention warranted . Patient is here for pre-admission optimization and education prior to surgery. RECENT ILLNESS: Serious illness or hospitalization within the last six months. No STOP BANG: STOP-BANG Row Name 04/28/24 1308 History of sleep apnea? 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 Social History Tobacco Use Smoking status: Former Types: Cigarettes Smokeless tobacco: Never Substance Use Topics Alcohol use: Not Currently Drug use: Not Currently MEDICAL HISTORY: No past medical history on file. SURGICAL HISTORY: No past surgical history on file. Past Medical History and Review of Systems Pulmonary (+) sleep apnea on CPAP, COPD, shortness of breath, PE (2019) Dental - negative ROS Endo (+) diabetes mellitus Comment: L parotidectomy Neuro/Psych (+) depression Cardiovascular (+) hypertension Comment: Denies CP, syncope or palpitations GI/Hepatic/Renal - negative ROS Heme/Other Other ROS: Warthin's tumor Oropharyngeal mass PREVIOUS ANESTHETIC COMPLICATIONS: no history of difficult intubation , adverse effects of anesthetic agents, or family history of anesthesia-related problems, nor malignant hyperthermia, hx of previous anesthesia, and Sister: PONV CURRENT MEDICATION LIST: Current Outpatient Medications Medication Sig Dispense Refill Rivaroxaban (Xarelto) 20 MG tablet Take 20 mg by mouth daily (with dinner). metformin (GLUCOPHAGE-XR) 500 MG XR tablet Take 500 mg by mouth 2 times daily. (Patient not taking: Reported on 04/28/2024) Paxlovid, 300/100, 20 x 150 MG AND 10 x 100MG tablet therapy pack See admin instructions. valsartan (DIOVAN) 320 MG tablet Take 320 mg by mouth daily. albuterol (PROVENTIL HFA) INHALATION HFA inhaler (VENTOLIN,PROAIR,PROVENTIL) 90mcg INHALE 2 PUFFS BY MOUTH EVERY 4 HOURS NEEDED SHORTNESS OF BREATH OR FOR WHEEZING atorvastatin (LIPITOR) 40 mg tablet Take 40 mg by mouth at bedtime. Cetirizine HCl 10 MG CAPS Take by mouth. (Patient not taking: Reported on 04/28/2024) citalopram (CeleXA) 20 MG tablet Take 20 mg by mouth daily. fluticasone furoate (VERAMYST) 27.5 MCG/SPRAY nasal inhaler Use in each nostril. (Patient not taking: Reported on 04/28/2024) hydroCHLOROthiazide (HYDRODIURIL) 12.5 MG tablet Take 12.5 mg by mouth daily. hydrocortisone 2.5 % cream Hydrocortisone (Anusol-Hc) 2.5 % cream with perineal applicator Active 1 APPLIC RC DAILY December 17, 2022 12:00am (Patient not taking: Reported on 04/28/2024) No current facility-administered medications for this visit. HEIGHT: 6' 2 WEIGHT: Weight was 144.2 kg on 04/28/2024 BMI: 40.93 VITAL SIGNS: BP 131/69 Pulse 90 Resp 16 Ht 1.88 m (6' 2) Wt (!) 144.6 kg (318 lb 12.8 oz) SpO2 96% BMI 40.93 kg/m??? PAIN ASSESSMENT: Severity: 2 Location: R neck side AIRWAY EXAM: Mallampati score: 3 TMD: Adequate Neck Extension/ Flexion: Adequate Mouth Opening: Adequate Dentition: Intact Micrognathia/Overbite: No FUNCTIONAL CAPACITY: mets around 4, able to do daily adls/grocery shopping, able to walk 0.75 block , Limited due to sob PHYSICAL EXAM: Eyes: Wears glasses ENT: Deferred Pulmonary: Chest clear to auscultation bilaterally Cardiovascular: RRR with S1S2 and No murmurs, gallops, or rubs Abdomen: Deferred Extremities: No gross or obvious abnormalities Neurologic: Awake, alert, oriented Psychiatric: alert and oriented to person, place and time Skin: No gross or obvious abnormalities on visible skin Assessment and Plan: 1) Pre-Admission Evaluation 2) Pre-Op Diagnosis Codes: * Neck mass [R22.1] * 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 Pre-Admission Testing Consultation Robert Rohit, [id number] 73 year old Male 04/29/2024 Consult placed to PAT by Dr. Packer due to significant PMH of PE PAT Triage Risk Score Total Score: 5 2 Patient is receiving or has recently received anticoagulation therapy. 2 Patient is on more than 2 antihypertension medications. 1 Patient has an elevated BMI recorded in the past 30 days Robert Ron is scheduled for LARYNGOSCOPY, DIRECT, ESOPHAGOSCOPY RIGID on 05/08/2024. 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 Treatments have not been effective ,no longer effective ,no alternate treatment options available.Surgical intervention warranted . Patient is here for pre-admission optimization and education prior to surgery. RECENT ILLNESS: Serious illness or hospitalization within the last six months. No STOP BANG: STOP-BANG Row Name 04/28/24 1308 History of sleep apnea? 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 Social History Tobacco Use Smoking status: Former Types: Cigarettes Smokeless tobacco: Never Substance Use Topics Alcohol use: Not Currently Drug use: Not Currently MEDICAL HISTORY: No past medical history on file. SURGICAL HISTORY: No past surgical history on file. Past Medical History and Review of Systems Pulmonary (+) sleep apnea on CPAP, COPD, shortness of breath, PE (2019) Dental - negative ROS Endo (+) diabetes mellitus Comment: L parotidectomy Neuro/Psych (+) depression Cardiovascular (+) hypertension Comment: Denies CP, syncope or palpitations GI/Hepatic/Renal - negative ROS Heme/Other Other ROS: Warthin's tumor Oropharyngeal mass PREVIOUS ANESTHETIC COMPLICATIONS: no history of difficult intubation , adverse effects of anesthetic agents, or family history of anesthesia-related problems, nor malignant hyperthermia, hx of previous anesthesia, and Sister: PONV CURRENT MEDICATION LIST: Current Outpatient Medications Medication Sig Dispense Refill Rivaroxaban (Xarelto) 20 MG tablet Take 20 mg by mouth daily (with dinner). metformin (GLUCOPHAGE-XR) 500 MG XR tablet Take 500 mg by mouth 2 times daily. (Patient not taking:Reported on 04/28/2024) Paxlovid, 300/100, 20 x 150 MG & 10 x 100MG tablet therapy pack See admin instructions. valsartan (DIOVAN) 320 MG tablet Take 320 mg by mouth daily. albuterol (PROVENTIL HFA) INHALATION HFA inhaler (VENTOLIN,PROAIR,PROVENTIL) 90mcg INHALE 2 PUFFS BY MOUTH EVERY 4 HOURS NEEDED SHORTNESS OF BREATH OR FOR WHEEZING atorvastatin (LIPITOR) 40 mg tablet Take 40 mg by mouth at bedtime. Cetirizine HCl 10 MG CAPS Take by mouth. (Patient not taking: Reported on 04/28/2024) citalopram (CeleXA) 20 MG tablet Take 20 mg by mouth daily. fluticasone furoate (VERAMYST) 27.5 MCG/SPRAY nasal inhaler Use in each nostril. (Patient not taking: Reported on 04/28/2024) hydroCHLOROthiazide (HYDRODIURIL) 12.5 MG tablet Take 12.5 mg by mouth daily. hydrocortisone 2.5 % cream Hydrocortisone (Anusol-Hc) 2.5 % cream with perineal applicator Active 1APPLIC RC DAILY December 17, 2022 12:00am (Patient not taking: Reported on 04/28/2024) No current facility-administered medications for this visit. HEIGHT: 6' 2 WEIGHT: Weight was 144.2 kg on 04/28/2024 BMI: 40.93 VITAL SIGNS: BP 131/69 Pulse 90 Resp 16 Ht 1.88 m (6' 2) Wt (!) 144.6 kg (318 lb 12.8 oz) SpO2 96% BMI 40.93 kg/m PAIN ASSESSMENT: Severity: 2 Location: R neck side AIRWAY EXAM: Mallampati score: 3 TMD: Adequate Neck Extension/ Flexion: Adequate Mouth Opening: Adequate Dentition: Intact Micrognathia/Overbite: No FUNCTIONAL CAPACITY: mets around 4, able to do daily adls/grocery shopping, able to walk 0.75 block, Limited due to sob PHYSICAL EXAM: Eyes: Wears glasses ENT: Deferred Pulmonary: Chest clear to auscultation bilaterally Cardiovascular: RRR with S1S2 and No murmurs, gallops, or rubs Abdomen: Deferred Extremities: No gross or obvious abnormalities Neurologic: Awake, alert, oriented Psychiatric: alert and oriented to person, place and time Skin: No gross or obvious abnormalities on visible skin Assessment and Plan: 1) Pre-Admission Evaluation 2) Pre-Op Diagnosis Codes: * Neck mass [R22.1] * 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] * Oropharyngeal mass [J39.2]Proceed to surgery 3) HTN - Hold valsartan and hydroCHLOROthiazide in the morning of you surgery 4) h/o PE- Hold Xarelto 2 days prior procedure, PCP at [facility] notified ( see scan doc) LABS, TESTS, CONSULTS ORDERED: Orders & Meds Signed During This Encounter Basic Metabolic Panel Complete Blood Count Rivaroxaban (Xarelto) 20 MG tablet EKG 12 LEAD - PERFORM LABORATORY DATA: CBC (last 3 years, up to 8 values) 04/28/2024 1:31 PM WBC 9.8 RBC 5.04 Hgb 15.1 Hct 45.6 MCV 91 RDW 15.0 Plt 168 BMP (last 3 years, up to 8 values) 04/28/2024 1:31 PM Na 139 K 4.1 Cl 102 CO2 24 Gap 17 Glu 181 BUN 22 Cr 0.99 Ca 9.7 eGFR 81 TESTS REVIEWED: I personally reviewed and interpreting and findings were: CXRay: No Chest x-ray found EK04/28/2024 Sinus rhythm with 1st degree AV block Nonspecific ST abnormality Prolonged QT interval or tu fusion, consider myocardial disease, electrolyte imbalance, or drug effects Abnormal ECG Confirmed by LYDIA ECHO: Echocardiogram date: Not Found Stress test date: Last StressTest: none found going back to 04/17/2024 Patient is medically optimized for surgery. This note will be forwarded to the referring provider. Patient should follow up with referring provider. Patient has been directed to discuss specific recovery questions with his/her surgeon/proceduralist. Attestation: I have spent 40 total minutes. Visit activities: - preparing to see the patient (e.g., review of tests) - obtaining and/or reviewing separately obtained history - performing a medically appropriate examination and/or evaluation - counseling and educating the patient/family/caregiver - ordering medications, tests, or procedures - documenting clinical information in the electronic or other health record Interviewer signature: DIEGO Shearer 7:47 AM 04/29/2024 documented in this [id number] History of Present illness Narrative* Markos Cordoba MTA/MPA - 04/28/2024 11:41 AM EST Pt identified by name and Pharmacy updated Vital signs taken Pt in exam room ready for provider * Simon Packer MD - 04/28/2024 11:25 AM EST Images from the original note were not included. OTOLARYNGOLOGY - HEAD & NECK SURGERY CLINIC NOTE CHIEF COMPLAINT: Chief Complaint Patient presents with New patient, to establish relationship Lump on right side of neck HPI: Robert Ron is a 73 year old male with PMH significant for COPD, WALE on CPAP, hx of PE (2019)hx of left parotidectomy about 10 yrs (Dr. Dubois) who presents today, 04/28/2024, at the [facility] at the request of Referring Provider: Iraj Dubois for my opinion and further evaluation of right neck mass, parotid lesion and base of tongue tumor. Today, pt reports 8-10 weeks ago started noticing right sided jaw pain/throat pain and then swelling in the right parotid. He then noticed right neck mass a few weeks ago. Associated right otalgia and soreness/irritation in the right throat. Associated with mild hoarseness. Denies fevers, chills, un intentionalweight loss, night sweats, otalgia, sore throat, oral bleeding, shortness of breath, hemoptysis or new lesions/masses. Denies history of radiation or previous of head/neck surgery other than prior tonsillectomy. Denieshistory of cardiac or pulmonary issues other than COPD. Able to walk/up downstairs without issues. Currently on Xarelto due to hx of PE. Denies any history cutaneous skin cancers Former smoker (1/2 -1 ppd x 52 yrs, quit in 2011 . Denies history of significant alcohol use. All other systems are negative except for that listed in the HPI. Past Medical/Surgical History: He has no past medical history on file. His has no past surgical history on file. Past Family/Social History: His family history is not on file. He reports that he has quit smoking. His smoking use included cigarettes. He has never used smokeless tobacco. Medications/Allergies/Immunizations: His current medication(s) include: @CMEDLISTP@ Allergies: Sulfa antibiotics, Immunizations: Immunization History Administered Date(s) Administered COVID-19 Vaccine (12+ yrs, Moderna) mRNA, spike protein, LNP, pres. free, 50 mcg/0.5 mL dose (GRQ=680) 01/24/2023, 01/21/2024 Influenza, injectable, high dose seasonal, trivalent, preservative free (CCS=276) 12/19/2016 Influenza, injectable, quadrivalent, preservative (VGF=763) 12/22/2020, 01/03/2023 Influenza, injectable, trivalent, preservative (CUR=720) 01/07/2024 Influenza, novel R1X5-99, injectable, preservative-free (XPJ=950) 02/03/2009 Moderna Monovalent (12+ yrs) COVID-19 vaccine, mRNA, spike protein, LNP, PF, 100 mcg/0.5 mL (IJP=272) 06/24/2020, 07/22/2020 Pneumococcal conjugate 20 valent (PCV20), polysaccharide PCD997 conjugate, adjuvant, PF (MKA=141) 01/21/2024 Respiratory syncytial virus (RSV), vaccine, recombinant, protein subunit RSV prefusion F, adjuvant reconstituted, 0.5 mL, preservative free (ZPT=640) 01/24/2023 Zoster Recombinant (RZV,Shingles) (SRQ=206) 08/20/2019 PHYSICAL EXAM: Vital Signs: Pulse 82 Temp 98.5 F (36.9 C) (Temporal) Wt (!) 317 lb 14.4 oz (144.2 kg) SpO2 97% General: Well-developed, well-nourished. In no acute distress. Communication and Voice: Clear pitch and clarity Respiratory Respiratory effort: Equal inspiration and expiration without stridor Neuro: Appropriate mood and affect; Cranial nerves II-XII are intact Head and Face Inspection: Normocephalic and atraumatic without mass or lesion Palpation: Facial skeleton intact without bony stepoffs Facial Strength: Facial motility symmetric and full bilaterally Eyes: No nystagmus with normal extraocular motion bilaterally ENT External nose: No scar or anatomic deformity TMJ: No pain to palpation with full mobility Salivary Glands: No mass or tenderness Lips: No lesion. Oral cavity: Moist mucosa. No mass or lesion. Oropharynx: No mass or lesion. Tonsillar fossa symmetric. Base of tongue soft difficult to palpate due to gag reflex Larynx: Unable to fully visualize larynx on indirect mirror laryngoscopy due to gag reflex Neck Trachea: Midline trachea. Thyroid: No mass or nodularity. Lymphatics: Firm right tail parotid lesion versus intraparotid node/high level II lymphadenopathy. Firm, relatively immobile right level II/III neema conglomerate No overlying skin changes nontender to palpation Procedure: Procedure: Flexible fiberoptic nasopharyngolaryngoscopy Indications: Need for detailed exam, hyperactive gag reflex, inadequate mirror visualization Surgeon: Simon Packer MD was present for the entirety of the procedure Procedure: After informed discussion of the risks, benefits, and alternatives, fiberoptic nasopharyngolaryngsocopy was recommended for the above indications, and the patient consented without furtherquestions. Next, a flexible scope was easily advanced into the naris. Nasal cavities were unremarkable. Nasopharynx including Eustachian tubes & fossae of Rosenmuller was unremarkable. Oropharynx with prominent lingual tonsil tissue and hypertrophy with associated central ulceration near the midline and papillomatous and irregular appearing mucosa along the right base of tongue Hypopharynx & endolarynx including epiglottis & glottis were unremarkable. Airway was patent & vocal folds were mobile bilaterally. No lesions or masses appreciated. The scope was withdrawn atraumatically. The patient tolerated the procedure well without complications. Pathologic Review: N/a Radiologic Review: CT neck with contrast from OSH (04/14/2024), personally reviewed Laboratory/Other Studies: N/a ASSESSMENT/PLAN: 73-year-old male former smoker, COPD, WALE, history of PE on Xarelto, history of left parotidectomy for Warthin's tumor who presents today for further evaluation of right-sided lymphadenopathy and base of tongue lesion concerning for malignancy. Differential diagnosis most likely related to squamouscell carcinoma of the oropharynx (HPV positive versus HPV negative) versus metastatic cutaneous squamous cell carcinoma versus lymphoma versus other etiology but much less likely based exam imaging concerning for malignancy of the upper aerodigestive tract -we reviewed the imaging findings at length -I counseled patient about concerns for malignancy based on his clinical exam. We discussed potential management options at length if it is consistent with squamous cell carcinoma of the oropharynx including surgical intervention versus nonsurgical intervention with systemic therapy but would be dependent on final pathology -recommend urgent direct laryngoscopy with biopsy possible fine-needle aspiration of the right necklymphadenopathy at time if unable to obtain diagnosis on frozen section -we discussed the role for that imaging to complete staging if positive for malignancy -recommend referrals to [facility] (may require MBS prior to treatment), nutrition, social work and dentistry -we will also plan to discuss at our head and neck multidisciplinary tumor board conference after imaging and pathology obtained -patient verbalized understanding and is in agreement plan -case request placed and we will schedule next week for direct laryngoscopy with biopsy Thank you so much for allowing me to participate in the care of this patient. Please feel free to contact me if you have any questions or concerns. Simon Packer MD Piece Worker Department of Otolaryngology - Head and Neck Surgery [facility] Pager: [phone] documented in this encounterMetroHealthConsult note Author Isaiah Schwartz [facility] Note Date/Time July 09, 2024 12: 24pm [facility] Medical Records Department [address] [place] [address] Anesthesia Postop Eval I 07/09/24 1221 MR#: [id number] Acct: [id number] Name: ROBERT RON Rep #:[id number] : 1950 73 From: Isaiah rodriguez [employer]ADER PCP: Dr. Bulmaro Curtis MD Status:REG S DC Y Race: C Location: [place] [address] Anesthesia: Postop Eval I Current Vital Signs Temperature: 97.2 F Pulse Rate: 80 Blood Pressure: 155/78 Respiratory Rate: 16 Pulse Ox: 94 Oxygen Delivery Method: Room Air Assessment Airway patent: Yes Spontaneous unlabored respirations: Yes nausea: No Vomiting: No Anesthesia Complication: No Fluid Hydration Crystalloid volume administer (ml): 500 Total IV fluid infused: 500 Progress Note Anesthesia document: Postop Eval 1 completed: Yes 07/09/24 1224 <Electronically signed by Isaiah booker CRNA> Date _ Isaiah Schwartz CRNA Cosigner Signature: Date CC: ~ Signed [facility] Work Phone: Discharge summary Author Daniel Sánchez [facility] Note Date/Time July 09, 2024 12: 11pm [facility] Medical Records Department [address] [place] [address] Instructions for Home/Discharge Instructions 07/09/24 1207 MR#: [id number] Acct: [id number] Name: ROBERT RON Rep #:[id number] : 1950 73 From: Daniel Sánchez MD PCP: Dr. Bulmaro Curtis MD Status:REG S DC Discharge Instructions Diet Discharge Diet: Light diet - advance as tolerated Activity Discharge Activity: Return to Normal Activity May shower in (days): 1 Ice area for (Minutes): 30 Dressing / Incision Call your doctor if your incision/area has: Continuous Slow Oozing, Sudden Increased Bleeding, Increased Pain/ Swelling, Increased Redness, Foul Smelling Discharge and Swelling at the incision site Call your doctor if you observe: Fever of 101 or Higher Suture Line Care: Avoid Pulling/Pushing Remove Dressing in: 3 days Cleanse incision/area with: Soap & Water Follow Up Care Please Follow Up With: Daniel Sánchez MD When: as needed Test Results: Test results from this visit will be discussed in further detail at your follow- up appointment, if applicable. Discharge Plan Admission Primary Reason for Your Visit: port revision Attending Provider: Daniel Sánchez Primary Care Provider: Bulmaro Curtis Chi Instructions Print Language: [place]ican Discharge Orders/Prescriptions Prescriptions: Continued rivaroxaban 15 mg tablet 20 mg PO QHS Patient Comments: LAST DAY 06/28/24 FOR SURGERY ON 07/02/24 Rx Instructions: must administer with evening meal citalopram [Celexa] 20 mg tablet 20 mg PO QHS valsartan 320 mg tablet 320 mg PO QHS hydrochlorothiazide 12.5 mg tablet 12.5 mg PO QHS Zyrtec 10 mg capsule 10 mg PO DAILY PRN (Reason: allergy symptoms) Flonase Sensimist 27.5 mcg/actuation spray,suspension 2 spray intranasal DAILY PRN (Reason: allergy symptoms) Rx Instructions: into each nostril Breztri Aerosphere 160-9-4.8 mcg/actuation HFA aerosol inhaler 2 inh inhalation BID Qty: 10.7 6RF acetaminophen 500 mg capsule 500 mg PO Q6H PRN (Reason: pain) ondansetron 8 mg tablet,disintegrating 8 mg PO Q8H PRN (Reason: nausea and vomiting) Qty: 30 1RF lidocaine-prilocaine 2.5-2.5 % cream 1 applic topical ONCE PRN (Reason: port access) 30 Days Qty: 30 2RF atorvastatin 40 MG tablet 40 mg PO QHS cholecalciferol (vitamin D3) 1,000 UNIT tablet 1,000 unit PO DAILY acetaminophen-codeine 300-30 mg tablet 1 - 2 tab PO Q6H PRN PRN (Reason: pain) ibuprofen 600 mg tablet 600 mg PO Q6H PRN PRN (Reason: pain) oxycodone-acetaminophen [Percocet] 5-325 mg tablet 1 tab PO Q8H PRN (Reason: pain) 3 Days Qty: 7 0RF albuterol sulfate 90 mcg/actuation HFA aerosol inhaler 2 puff inhalation Q4H PRN (Reason: shortness of breath or wheezing) Qty: 1 6RF Rx Instructions: administer with spacer Referrals / Follow Up: Bulmaro Curtis Chi, MD [Primary Care Provider] - Disposition Disposition (needs filled in before D/C Order can be placed): Home, Self Care 07/09/24 1211<Electronically signed by Daniel Sánchez MD>Daniel Sánchez MD CC: Dr. 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 [facility] Work Phone: Evaluation note* Diagnosis Onset Date Resolution Status History of pulmonary embolism acute Lung nodule acute Nicotine dependence, cigarettes, 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 Lung nodule acute Nicotine dependence, cigarettes, in remission acute BMI 38.0-38.9,adult chronic 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 [facility] Work Phone: evaluation note* Diagnosis Onset Date Resolution Status History of pulmonary embolism acute Nicotine dependence, cigarettes, 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 [facility] Work Phone: evaluation note* Diagnosis Onset Date Resolution Status History of pulmonary embolism acute 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, cigarettes, in remission chronic [facility] Work Phone: Evaluation note* Diagnosis Postoperative pain- Primary Other acute postoperative pain Chronic dental caries extending to pulp Dental caries extending into pulp Chronic periodontitis Chronic periodontitis, unspecified [facility] encounter [facility]* Diagnosis 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 Malignant neoplasm of oropharynx, unspecified site documented in this encounter [facility]* Diagnosis Neck mass Swelling, mass, or lump in head and neck documented in this encounter [facility]* Diagnosis Pre-op testing- Primary Preoperative examination, unspecified Abnormal electrocardiogram (ECG) (EKG) Primary hypertension Unspecified essential hypertension H/O pulmonary emphysema (HCC) documented in this encounter [facility]* Diagnosis Neck mass- Primary Swelling, mass, or lump in head and neck 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 Oropharyngeal mass Swelling, mass, or lump in head and neck documented [facility] this encounter [facility]* Diagnosis Oropharyngeal mass- Primary Swelling, mass, or lump in head and neck Neck mass Swelling, mass, or lump in head and neck 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 [facility]* Diagnostic X-Ray (Routine) - Closed Specialty Diagnoses / Procedures Referred By Ca fatima Referred To Contact Radiology Diagnoses Neck mass Procedures CT NEURO IMAGE IMPORT(TERESA) DOWNLOAD POWERSHARE IMAGES TO Simon Santos MD [address] [place] [address] Phone: tel: fax: [facility] DIAGNOSTIC RADIOLOGY [address] [place] [address] Phone: tel: Referral ID Status Reason Start Date Expiration Date Visits Re quested Visits Authorized [id number] Closed 04/17/2024 04/17/2025 1 1 [facility] for visit Narrative* Auth/Cert (Routine) Specialty Diagnoses / Procedures Referred By Ca fatima Referred To Contact General Surgery Diagnoses Neck mass Warthin's tumor Oropharyngeal mass Neck mass [R22.1] 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] Procedures LARYNGOSCOPY, DIRECT, OPERATIVE, W/BIOPSY; BRONCHOSCOPY, RIGID/FLEX, W/WO FLUORO GUID; W/BRONCHIAL/ENDOBRONCHI AL BIOPSY, SINGLE/MULTIPLE LARYNGOSCOPY, DIRECT ESOPHAGOSCOPY RIGID Simon Packer MD [address] [place] [address] Phone: tel: fax: [facility] [address] [place] [phone] Phone: tel: Referral ID Status Reason Start Date Expiration Date Visits Re quested Visits Authorized [id number] 3 3 [facility] Chief Complaint and Reason for Visit Chief Complaint RIGHT SHOULDER XRAY TOBACCO ABUSE 6 M FU Reason for Visit Right shoulder pain History of pulmonary embolism 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, cigarettes, in remission Chief Complaint LT TINNITIS, ASSYMYT CHUN HEARING LOSS Chief Complaint NICOTINE DEP Abnormal CT scan follow-up LUNG NODULE Reason for Visit History of pulmonary embolism Lung nodule Nicotine dependence, cigarettes, 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 Chief Complaint NICOTINE DEP Abnormal CT scan follow-up LUNG NODULE discuss test results Reason for Visit History of pulmonary embolism Lung nodule Nicotine dependence, cigarettes, 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 Lung nodule Nicotine dependence, cigarettes, in remission BMI 38.0-38.9,adult Mixed obstructive and restrictive ventilatory defect Chief Complaint NICOTINE DEP Abnormal CT scan follow-up LUNG NODULE discuss test results 1.5CM LUNG MASS Reason for Visit History of pulmonary embolism Lung nodule Nicotine dependence, cigarettes, 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 Lung nodule Nicotine dependence, cigarettes, in remission BMI 38.0-38.9,adult Mixed obstructive and restrictive ventilatory defect Chief Complaint 4 M FU rectal bleeding Reason for Visit History of pulmonary embolism Nicotine dependence, cigarettes, 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 Chief Complaint 6 M FU Reason for Visit History of pulmonary embolism Nicotine dependence, cigarettes, 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 June 19, 2024 1:2 0pm CHEMO ED June 29, 2024 10:1 6am Insertion, Vascular Port & peg tube plac ement July 02, 2024 8:20am Insertion, Vascular Port & peg tube plac ement July 02, 2024 9:42am Reason for Visit Admit Date Primary squamous cell carcinoma of base of tongue May 26, 2024 12:55pm Primary squamous cell carcinoma of base of tongue June 02, 2024 3:29pm Encounter for insertion of venous access port June 03, 2024 9:24am Percutaneous endoscopic gastrostomy stat June 03, 2024 9:24am Encounter for education June 29, 2024 10:16am Primary squamous cell carcinoma of base of tongue June 29, 2024 10:16am Primary squamous cell carcinoma of base of tongue July 02, 2024 8:20am Chief Complaint Admit Date Localized swelling, mass and lump, neck April 13, 2024 12:44pm Amb Documentation May 20, 2024 11:50am TONGUE CA May 26, 2024 12:5 5pm NEW-TONGUE CANCER June 02, 2024 3:2 9pm PEG AND PORT June 03, 2024 9:2 4am CHEMO ED June 29, 2024 10:1 6am Insertion, Vascular Port & peg tube plac ement July 02, 2024 8:20am Insertion, Vascular Port & peg tube plac ement July 02, 2024 9:42am POST OP July 02, 2024 1:2 7pm NEW START - LABS - TAXOL/CARBOPLATIN Apr il 2024 7:34am PORTAGRAM July 06, 2024 1:4 2pm OTV July 08, 2024 8:4 3am . July 09, 2024 9:0 0am Reason for Visit Admit Date Primary squamous cell carcinoma of base of tongue May 26, 2024 12:55pm Primary squamous cell carcinoma of base of tongue June 02, 2024 3:29pm Encounter for insertion of venous access port June 03, 2024 9:24am Percutaneous endoscopic gastrostomy stat June 03, 2024 9:24am Encounter for education June 29, 2024 10:16am Primary squamous cell carcinoma of base of tongue June 29, 2024 10:16am Primary squamous cell carcinoma of base of tongue July 02, 2024 8:20am Primary squamous cell carcinoma of base of tongue July 06, 2024 7:34am Primary squamous cell carcinoma of base of tongue July 08, 2024 8:43am Encounter for insertion of venous access port July 09, 2024 9:13am Chief Complaint Admit Date Localized swelling, mass and lump, neck April 13, 2024 12:44pm Amb Documentation May 20, 2024 11:50am TONGUE CA May 26, 2024 12:5 5pm NEW-TONGUE CANCER June 02, 2024 3:2 9pm PEG AND PORT June 03, 2024 9:2 4am CHEMO ED June 29, 2024 10:1 6am Insertion, Vascular Port & peg tube plac ement July 02, 2024 8:20am Insertion, Vascular Port & peg tube plac ement July 02, 2024 9:42am POST OP July 02, 2024 1:2 7pm NEW START - LABS - TAXOL/CARBOPLATIN Apr il 2024 7:34am PORTAGRAM July 06, 2024 1:4 2pm OTV July 08, 2024 8:4 3am . July 10, 2024 9:0 0am Chief Complaint Admit Date Localized swelling, mass and lump, neck April 13, 2024 12:44pm Amb Documentation May 20, 2024 11:50am TONGUE CA May 26, 2024 12:5 5pm NEW-TONGUE CANCER June 02, 2024 3:2 9pm PEG AND PORT June 03, 2024 9:2 4am CHEMO ED June 29, 2024 10:1 6am Insertion, Vascular Port & peg tube plac ement July 02, 2024 8:20am Insertion, Vascular Port & peg tube plac ement July 02, 2024 9:42am POST OP July 02, 2024 1:2 7pm NEW START - LABS - TAXOL/CARBOPLATIN Apr 2024 7:34am PORTAGRAM July 06, 2024 1:4 2pm OTV July 08, 2024 8:4 3am 1 WK - LABS - TAXOL/CARBO July 13 7:51am MALIGNANT NEOPLASM OF BASE OF TONGUE/RX SCANNED IN July 13, 2024 7:54am SORENESS AT PEG SITE July 13, 2024 8: 47am Malignant neoplasm of base of tongue Apr 2024 8:07am OTV July 15, 2024 8:4 3am . July 17, 2024 9:0 0am Reason for Visit Admit Date Primary squamous cell carcinoma of base of tongue May 26, 2024 12:55pm Primary squamous cell carcinoma of base of tongue June 02, 2024 3:29pm Encounter for insertion of venous access port June 03, 2024 9:24am Percutaneous endoscopic gastrostomy stat June 03, 2024 9:24am Encounter for education June 29, 2024 10:16am Primary squamous cell carcinoma of base of tongue June 29, 2024 10:16am Primary squamous cell carcinoma of base of tongue July 02, 2024 8:20am Primary squamous cell carcinoma of base of tongue July 06, 2024 7:34am Primary squamous cell carcinoma of base of tongue July 08, 2024 8:43am Encounter for insertion of venous access port July 09, 2024 9:13am Primary squamous cell carcinoma of base of tongue July 13, 2024 7:51am S/P gastrostomy tube (G tube) placement, follow-up exam July 13, 2024 8:47am Primary squamous cell carcinoma of base of tongue July 15, 2024 8:43am Chief Complaint Admit Date Localized swelling, mass and lump, neck April 13, 2024 12:44pm Amb Documentation May 20, 2024 11:50am TONGUE CA May 26, 2024 12:5 5pm NEW-TONGUE CANCER June 02, 2024 3:2 9pm PEG AND PORT June 03, 2024 9:2 4am CHEMO ED June 29, 2024 10:1 6am Insertion, Vascular Port & peg tube plac ement July 02, 2024 8:20am Insertion, Vascular Port & peg tube plac ement July 02, 2024 9:42am POST OP July 02, 2024 1:2 7pm NEW START - LABS - TAXOL/CARBOPLATIN Apr 2024 7:34am PORTAGRAM July 06, 2024 1:4 2pm OTV July 08, 2024 8:4 3am 1 WK - LABS - TAXOL/CARBO July 13 7:51am SORENESS AT PEG SITE July 13, 2024 8: 47am Malignant neoplasm of base of tongue Apr 2024 8:07am OTV July 15, 2024 8:4 3am 1 WK - LABS - TAXOL/CARBOPLATIN July 202024 7:42am OTV July 22, 2024 8:4 4am LEAKING PEG TUBE July 22, 2024 9:3 5am 1 WK - LABS - CARBO/TAXOL July 27, 2024 7:48am OTV July 29, 2024 8:59am MALIGNANT NEOPLASM OF BASE OF TONGUE/RX SCANNED IN July 31, 2024 9:30am 1 WK - LABS - TAXOL/CARBOPLATIN July 7:39am . August 05, 2024 9:00a m OTV August 05, 2024 11:35 am Reason for Visit Admit Date Primary squamous cell carcinoma of base of tongue May 26, 2024 12:55pm Primary squamous cell carcinoma of base of tongue June 02, 2024 3:29pm Encounter for insertion of venous access port June 03, 2024 9:24am Percutaneous endoscopic gastrostomy stat June 03, 2024 9:24am Encounter for education June 29, 2024 10:16am Primary squamous cell carcinoma of base of tongue June 29, 2024 10:16am Primary squamous cell carcinoma of base of tongue July 02, 2024 8:20am Primary squamous cell carcinoma of base of tongue July 06, 2024 7:34am Primary squamous cell carcinoma of base of tongue July 08, 2024 8:43am Encounter for insertion of venous access port July 09, 2024 9:13am Primary squamous cell carcinoma of base of tongue July 13, 2024 7:51am S/P gastrostomy tube (G tube) placement, follow-up exam July 13, 2024 8:47am Primary squamous cell carcinoma of base of tongue July 15, 2024 8:43am Chemotherapy management, encounter for A pril 2024 7:42am Primary squamous cell carcinoma of base of tongue July 20, 2024 7:42am Dysphagia July 22, 2024 8:4 4am Primary squamous cell carcinoma of base of tongue July 22, 2024 8:44am S/P gastrostomy tube (G tube) placement, follow-up exam July 22, 2024 9:35am Primary squamous cell carcinoma of base of tongue July 22, 2024 9:35am Chemotherapy management, encounter for Maryann ay 2024 7:48am Oral mucositis July 27, 2024 7:48am Primary squamous cell carcinoma of base of tongue July 27, 2024 7:48am Primary squamous cell carcinoma of base of tongue July 29, 2024 8:59am Chemotherapy management, encounter for Maryann ay 2024 7:39am Oral mucositis August 03, 2024 7:39a m Rash August 03, 2024 7:39a m 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 August 03, 2024 7:39am Primary squamous cell carcinoma of base of tongue August 03, 2024 7:39am Chief Complaint Admit Date Localized swelling, mass and lump, neck April 13, 2024 12:44pm Amb Documentation May 20, 2024 11:50am TONGUE CA May 26, 2024 12:5 5pm NEW-TONGUE CANCER June 02, 2024 3:2 9pm PEG AND PORT June 03, 2024 9:2 4am CHEMO ED June 29, 2024 10:1 6am Insertion, Vascular Port & peg tube plac ement July 02, 2024 8:20am Insertion, Vascular Port & peg tube plac ement July 02, 2024 9:42am POST OP July 02, 2024 1:2 7pm NEW START - LABS - TAXOL/CARBOPLATIN Apr 2024 7:34am PORTAGRAM July 06, 2024 1:4 2pm OTV July 08, 2024 8:4 3am 1 WK - LABS - TAXOL/CARBO July 13 7:51am SORENESS AT PEG SITE July 13, 2024 8: 47am Malignant neoplasm of base of tongue Apr 2024 8:07am OTV July 15, 2024 8:4 3am 1 WK - LABS - TAXOL/CARBOPLATIN July 202024 7:42am OTV July 22, 2024 8:4 4am LEAKING PEG TUBE July 22, 2024 9:3 5am 1 WK - LABS - CARBO/TAXOL July 27, 2024 7:48am OTV July 29, 2024 8:59am 1 WK - LABS - TAXOL/CARBOPLATIN July 7:39am OTV August 05, 2024 11:35 am MALIGNANT NEOPLASM OF BASE OF TONGUE/RX SCANNED IN August 07, 2024 9:30am 1 WK - LABS - TAXOL/CARBOPLATIN July 7:39am . August 10, 2024 9:00a m Reason for Visit Admit Date Primary squamous cell carcinoma of base of tongue May 26, 2024 12:55pm Primary squamous cell carcinoma of base of tongue June 02, 2024 3:29pm Encounter for insertion of venous access port June 03, 2024 9:24am Percutaneous endoscopic gastrostomy [facility] June 03, 2024 9:24am Encounter for education June 29, 2024 10:16am Primary squamous cell carcinoma of base of tongue June 29, 2024 10:16am Primary squamous cell carcinoma of base of tongue July 02, 2024 8:20am Primary squamous cell carcinoma of base of tongue July 06, 2024 7:34am Primary squamous cell carcinoma of base of tongue July 08, 2024 8:43am Encounter for insertion of venous access port July 09, 2024 9:13am Primary squamous cell carcinoma of base of tongue July 13, 2024 7:51am S/P gastrostomy tube (G tube) placement, follow-up exam July 13, 2024 8:47am Primary squamous cell carcinoma of base of tongue Zenaida 23rd, 2025 8:43am Chemotherapy management, encounter for Janet pril 2024 7:42am Primary squamous cell carcinoma of base of tongue July 20, 2024 7:42am Dysphagia July 22, 2024 8:4 4am Primary squamous cell carcinoma of base of tongue July 22, 2024 8:44am S/P gastrostomy tube (G tube) placement, follow-up exam July 22, 2024 9:35am Primary squamous cell carcinoma of base of tongue July 22, 2024 9:35am Chemotherapy management, encounter for Maryann li 2024 7:48am Oral mucositis July 27, 2024 7:48am Primary squamous cell carcinoma of base of tongue July 27, 2024 7:48am Primary squamous cell carcinoma of base of tongue July 29, 2024 8:59am Chemotherapy management, encounter for Maryann li 2024 7:39am Oral mucositis August 03, 2024 7:39a m Rash August 03, 2024 7:39a m 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 August 03, 2024 7:39am Primary squamous cell carcinoma of base of tongue August 03, 2024 7:39am Primary squamous cell carcinoma of base of tongue August 05, 2024 11:35am Chemotherapy management, encounter for Maryann li 2024 7:39am Epistaxis August 10, 2024 7:39a m Oral mucositis August 10, 2024 7:39a m Radiation-induced dermatitis August 10, 2 025 7:39am Rash August 10, 2024 7:39a m Primary squamous cell carcinoma of base of tongue August 10, 2024 7:39am Chief Complaint Admit Date Amb Documentation May 20, 2024 11:50am TONGUE CA May 26, 2024 12:5 5pm NEW-TONGUE CANCER June 02, 2024 3:2 9pm PEG AND PORT June 03, 2024 9:2 4am CHEMO ED June 29, 2024 10:1 6am Insertion, Vascular Port & peg tube plac ement July 02, 2024 8:20am Insertion, Vascular Port & peg tube plac ement July 02, 2024 9:42am POST OP July 02, 2024 1:2 7pm NEW START - LABS - TAXOL/CARBOPLATIN Apr il 2024 7:34am PORTAGRAM July 06, 2024 1:4 2pm OTV July 08, 2024 8:4 3am 1 WK - LABS - TAXOL/CARBO July 13 7:51am SORENESS AT PEG SITE July 13, 2024 8: 47am Malignant neoplasm of base of tongue Apr il 2024 8:07am OTV July 15, 2024 8:4 3am 1 WK - LABS - TAXOL/CARBOPLATIN July 202024 7:42am OTV July 22, 2024 8:4 4am LEAKING PEG TUBE July 22, 2024 9:3 5am 1 WK - LABS - CARBO/TAXOL July 27, 2024 7:48am OTV July 29, 2024 8:59am 1 WK - LABS - TAXOL/CARBOPLATIN July 7:39am OTV August 05, 2024 11:35 am 1 WK - LABS - TAXOL/CARBOPLATIN July 7:39am MALIGNANT NEOPLASM OF BASE OF TONGUE/RX SCANNED IN August 10, 2024 9:30am . August 12, 2024 12:30 pm OTV August 12, 2024 12:47 pm Reason for Visit Admit Date Primary squamous cell carcinoma of base of tongue May 26, 2024 12:55pm Primary squamous cell carcinoma of base of tongue June 02, 2024 3:29pm Encounter for insertion of venous access port June 03, 2024 9:24am Percutaneous endoscopic gastrostomy stat June 03, 2024 9:24am Encounter for education June 29, 2024 10:16am Primary squamous cell carcinoma of base of tongue June 29, 2024 10:16am Primary squamous cell carcinoma of base of tongue July 02, 2024 8:20am Primary squamous cell carcinoma of base of tongue July 06, 2024 7:34am Primary squamous cell carcinoma of base of tongue July 08, 2024 8:43am Encounter for insertion of venous access port July 09, 2024 9:13am Primary squamous cell carcinoma of base of tongue July 13, 2024 7:51am S/P gastrostomy tube (G tube) placement, follow-up exam July 13, 2024 8:47am Primary squamous cell carcinoma of base of tongue July 15, 2024 8:43am Chemotherapy management, encounter for A pril 2024 7:42am Primary squamous cell carcinoma of base of tongue July 20, 2024 7:42am Dysphagia July 22, 2024 8:4 4am Primary squamous cell carcinoma of base of tongue July 22, 2024 8:44am S/P gastrostomy tube (G tube) placement, follow-up exam July 22, 2024 9:35am Primary squamous cell carcinoma of base of tongue July 22, 2024 9:35am Chemotherapy management, encounter for Maryann li 2024 7:48am Oral mucositis July 27, 2024 7:48am Primary squamous cell carcinoma of base of tongue July 27, 2024 7:48am Primary squamous cell carcinoma of base of tongue July 29, 2024 8:59am Chemotherapy management, encounter for Maryann li 2024 7:39am Oral mucositis August 03, 2024 7:39a m Rash August 03, 2024 7:39a m 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 August 03, 2024 7:39am Primary squamous cell carcinoma of base of tongue August 03, 2024 7:39am Primary squamous cell carcinoma of base of tongue August 05, 2024 11:35am Chemotherapy management, encounter for Maryann li 2024 7:39am Epistaxis August 10, 2024 7:39a m Oral mucositis August 10, 2024 7:39a m Radiation-induced dermatitis August 10, 2 025 7:39am Rash August 10, 2024 7:39a m Primary squamous cell carcinoma of base of tongue August 10, 2024 7:39am Primary squamous cell carcinoma of base of tongue August 12, 2024 12:47pm Chief Complaint Admit Date Amb Documentation May 20, 2024 11:50am TONGUE CA May 26, 2024 12:5 5pm NEW-TONGUE CANCER June 02, 2024 3:2 9pm PEG AND PORT June 03, 2024 9:2 4am CHEMO ED June 29, 2024 10:1 6am Insertion, Vascular Port & peg tube plac ement July 02, 2024 8:20am Insertion, Vascular Port & peg tube plac ement July 02, 2024 9:42am POST OP July 02, 2024 1:2 7pm NEW START - LABS - TAXOL/CARBOPLATIN Apr 2024 7:34am PORTAGRAM July 06, 2024 1:4 2pm OTV July 08, 2024 8:4 3am 1 WK - LABS - TAXOL/CARBO July 13 7:51am SORENESS AT PEG SITE July 13, 2024 8: 47am Malignant neoplasm of base of tongue Apr il 2024 8:07am OTV July 15, 2024 8:4 3am 1 WK - LABS - TAXOL/CARBOPLATIN July 202024 7:42am OTV July 22, 2024 8:4 4am LEAKING PEG TUBE July 22, 2024 9:3 5am 1 WK - LABS - CARBO/TAXOL July 27, 2024 7:48am OTV July 29, 2024 8:59am 1 WK - LABS - TAXOL/CARBOPLATIN July 7:39am OTV August 05, 2024 11:35 am 1 WK - LABS - TAXOL/CARBOPLATIN July 7:39am MALIGNANT NEOPLASM OF BASE OF TONGUE/RX SCANNED IN August 10, 2024 9:30am OTV August 12, 2024 12:47 pm 1 WK - LABS - TAXOL/CARBOPLATIN July 7:38am . August 18, 2024 9:00a m Reason for Visit Admit Date Primary squamous cell carcinoma of base of tongue May 26, 2024 12:55pm Primary squamous cell carcinoma of base of tongue June 02, 2024 3:29pm Encounter for insertion of venous access port June 03, 2024 9:24am Percutaneous endoscopic gastrostomy stat June 03, 2024 9:24am Encounter for education June 29, 2024 10:16am Primary squamous cell carcinoma of base of tongue June 29, 2024 10:16am Primary squamous cell carcinoma of base of tongue July 02, 2024 8:20am Primary squamous cell carcinoma of base of tongue July 06, 2024 7:34am Primary squamous cell carcinoma of base of tongue July 08, 2024 8:43am Encounter for insertion of venous access port July 09, 2024 9:13am Primary squamous cell carcinoma of base of tongue July 13, 2024 7:51am S/P gastrostomy tube (G tube) placement, follow-up exam July 13, 2024 8:47am Primary squamous cell carcinoma of base of tongue July 15, 2024 8:43am Chemotherapy management, encounter for A pril 2024 7:42am Primary squamous cell carcinoma of base of tongue July 20, 2024 7:42am Dysphagia July 22, 2024 8:4 4am Primary squamous cell carcinoma of base of tongue July 22, 2024 8:44am S/P gastrostomy tube (G tube) placement, follow-up exam July 22, 2024 9:35am Primary squamous cell carcinoma of base of tongue July 22, 2024 9:35am Chemotherapy management, encounter for Maryann li 2024 7:48am Oral mucositis July 27, 2024 7:48am Primary squamous cell carcinoma of base of tongue July 27, 2024 7:48am Primary squamous cell carcinoma of base of tongue July 29, 2024 8:59am Chemotherapy management, encounter for Maryann li 2024 7:39am Oral mucositis August 03, 2024 7:39a m Rash August 03, 2024 7:39a m 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 August 03, 2024 7:39am Primary squamous cell carcinoma of base of tongue August 03, 2024 7:39am Primary squamous cell carcinoma of base of tongue August 05, 2024 11:35am Chemotherapy management, encounter for Maryann li 2024 7:39am Epistaxis August 10, 2024 7:39a m Oral mucositis August 10, 2024 7:39a m Radiation-induced dermatitis August 10, 2 025 7:39am Rash August 10, 2024 7:39a m Primary squamous cell carcinoma of base of tongue August 10, 2024 7:39am Primary squamous cell carcinoma of base of tongue August 12, 2024 12:47pm Chemotherapy management, encounter for Maryann li 2024 7:38am Epistaxis August 18, 2024 7:38a m Oral mucositis August 18, 2024 7:38a m Radiation-induced dermatitis August 18, 2 025 7:38am Rash August 18, 2024 7:38a m Primary squamous cell carcinoma of base of tongue August 18, 2024 7:38am Chief Complaint Admit Date Amb Documentation May 20, 2024 11:50am TONGUE CA May 26, 2024 12:5 5pm NEW-TONGUE CANCER June 02, 2024 3:2 9pm PEG AND PORT June 03, 2024 9:2 4am CHEMO ED June 29, 2024 10:1 6am Insertion, Vascular Port & peg tube plac ement July 02, 2024 8:20am Insertion, Vascular Port & peg tube plac ement July 02, 2024 9:42am POST OP July 02, 2024 1:2 7pm NEW START - LABS - TAXOL/CARBOPLATIN Apr 2024 7:34am PORTAGRAM July 06, 2024 1:4 2pm OTV July 08, 2024 8:4 3am 1 WK - LABS - TAXOL/CARBO July 13 7:51am SORENESS AT PEG SITE July 13, 2024 8: 47am Malignant neoplasm of base of tongue Apr 2024 8:07am OTV July 15, 2024 8:4 3am 1 WK - LABS - TAXOL/CARBOPLATIN July 202024 7:42am OTV July 22, 2024 8:4 4am LEAKING PEG TUBE July 22, 2024 9:3 5am 1 WK - LABS - CARBO/TAXOL July 27, 2024 7:48am OTV July 29, 2024 8:59am 1 WK - LABS - TAXOL/CARBOPLATIN July 7:39am OTV August 05, 2024 11:35 am 1 WK - LABS - TAXOL/CARBOPLATIN July 7:39am MALIGNANT NEOPLASM OF BASE OF TONGUE/RX SCANNED IN August 10, 2024 9:30am OTV August 12, 2024 12:47 pm 1 WK - LABS - TAXOL/CARBOPLATIN July 7:38am . August 19, 2024 9:00a m OTV August 19, 2024 1:10p m Chief Complaint Admit Date Amb Documentation May 20, 2024 11:50am TONGUE CA May 26, 2024 12:5 5pm NEW-TONGUE CANCER June 02, 2024 3:2 9pm PEG AND PORT June 03, 2024 9:2 4am CHEMO ED June 29, 2024 10:1 6am Insertion, Vascular Port & peg tube plac ement July 02, 2024 8:20am Insertion, Vascular Port & peg tube plac ement July 02, 2024 9:42am POST OP July 02, 2024 1:2 7pm NEW START - LABS - TAXOL/CARBOPLATIN Apr 2024 7:34am PORTAGRAM July 06, 2024 1:4 2pm OTV July 08, 2024 8:4 3am 1 WK - LABS - TAXOL/CARBO July 13 7:51am SORENESS AT PEG SITE July 13, 2024 8: 47am Malignant neoplasm of base of tongue Apr 2024 8:07am OTV July 15, 2024 8:4 3am 1 WK - LABS - TAXOL/CARBOPLATIN July 202024 7:42am OTV July 22, 2024 8:4 4am LEAKING PEG TUBE July 22, 2024 9:3 5am 1 WK - LABS - CARBO/TAXOL July 27, 2024 7:48am OTV July 29, 2024 8:59am 1 WK - LABS - TAXOL/CARBOPLATIN July 7:39am OTV August 05, 2024 11:35 am 1 WK - LABS - TAXOL/CARBOPLATIN July 7:39am OTV August 12, 2024 12:47 pm 1 WK - LABS - TAXOL/CARBOPLATIN July 7:38am OTV August 19, 2024 1:10p m Amb Documentation August 20, 2024 11:11 am 1 MONTH F/U POST RT September 15, 2024 1:54 pm MALIGNANT NEOPLASM OF BASE OF TONGUE/RX SCANNED IN September 15, 2024 2:30pm . September 15, 2024 2:45 pm Reason for Visit Admit Date Primary squamous cell carcinoma of base of tongue May 26, 2024 12:55pm Primary squamous cell carcinoma of base of tongue June 02, 2024 3:29pm Encounter for insertion of venous access port June 03, 2024 9:24am Percutaneous endoscopic gastrostomy stat June 03, 2024 9:24am Encounter for education June 29, 2024 10:16am Primary squamous cell carcinoma of base of tongue June 29, 2024 10:16am Primary squamous cell carcinoma of base of tongue July 02, 2024 8:20am Primary squamous cell carcinoma of base of tongue July 06, 2024 7:34am Primary squamous cell carcinoma of base of tongue July 08, 2024 8:43am Encounter for insertion of venous access port July 09, 2024 9:13am Primary squamous cell carcinoma of base of tongue July 13, 2024 7:51am S/P gastrostomy tube (G tube) placement, follow-up exam July 13, 2024 8:47am Primary squamous cell carcinoma of base of tongue July 15, 2024 8:43am Chemotherapy management, encounter for A pril 2024 7:42am Primary squamous cell carcinoma of base of tongue July 20, 2024 7:42am Dysphagia July 22, 2024 8:4 4am Primary squamous cell carcinoma of base of tongue July 22, 2024 8:44am S/P gastrostomy tube (G tube) placement, follow-up exam July 22, 2024 9:35am Primary squamous cell carcinoma of base of tongue July 22, 2024 9:35am Chemotherapy management, encounter for Maryann li 2024 7:48am Oral mucositis July 27, 2024 7:48am Primary squamous cell carcinoma of base of tongue July 27, 2024 7:48am Primary squamous cell carcinoma of base of tongue July 29, 2024 8:59am Chemotherapy management, encounter for Maryann li 2024 7:39am Oral mucositis August 03, 2024 7:39a m Rash August 03, 2024 7:39a m 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 August 03, 2024 7:39am Primary squamous cell carcinoma of base of tongue August 03, 2024 7:39am Primary squamous cell carcinoma of base of tongue August 05, 2024 11:35am Chemotherapy management, encounter for Maryann li 2024 7:39am Epistaxis August 10, 2024 7:39a m Oral mucositis August 10, 2024 7:39a m Radiation-induced dermatitis August 10, 2 025 7:39am Rash August 10, 2024 7:39a m Primary squamous cell carcinoma of base of tongue August 10, 2024 7:39am Primary squamous cell carcinoma of base of tongue August 12, 2024 12:47pm Chemotherapy management, encounter for Maryann li 2024 7:38am Epistaxis August 18, 2024 7:38a m Oral mucositis August 18, 2024 7:38a m Radiation-induced dermatitis August 18, 2 025 7:38am Rash August 18, 2024 7:38a m Primary squamous cell carcinoma of base of tongue August 18, 2024 7:38am Primary squamous cell carcinoma of base of tongue August 19, 2024 1:10pm Reason for Visit Admit Date Primary squamous cell carcinoma of base of tongue May 26, 2024 12:55pm Primary squamous cell carcinoma of base of tongue June 02, 2024 3:29pm Encounter for insertion of venous access port June 03, 2024 9:24am Percutaneous endoscopic gastrostomy stat June 03, 2024 9:24am Encounter for education June 29, 2024 10:16am Primary squamous cell carcinoma of base of tongue June 29, 2024 10:16am Primary squamous cell carcinoma of base of tongue July 02, 2024 8:20am Primary squamous cell carcinoma of base of tongue July 06, 2024 7:34am Primary squamous cell carcinoma of base of tongue July 08, 2024 8:43am Encounter for insertion of venous access port July 09, 2024 9:13am Primary squamous cell carcinoma of base of tongue July 13, 2024 7:51am S/P gastrostomy tube (G tube) placement, follow-up exam July 13, 2024 8:47am Primary squamous cell carcinoma of base of tongue July 15, 2024 8:43am Chemotherapy management, encounter for A pril 2024 7:42am Primary squamous cell carcinoma of base of tongue July 20, 2024 7:42am Dysphagia July 22, 2024 8:4 4am Primary squamous cell carcinoma of base of tongue July 22, 2024 8:44am S/P gastrostomy tube (G tube) placement, follow-up exam July 22, 2024 9:35am Primary squamous cell carcinoma of base of tongue July 22, 2024 9:35am Chemotherapy management, encounter for M ay 2024 7:48am Oral mucositis July 27, 2024 7:48am Primary squamous cell carcinoma of base of tongue July 27, 2024 7:48am Primary squamous cell carcinoma of base of tongue July 29, 2024 8:59am Chemotherapy management, encounter for M ay 2024 7:39am Oral mucositis August 03, 2024 7:39a m Rash August 03, 2024 7:39a m 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 August 03, 2024 7:39am Primary squamous cell carcinoma of base of tongue August 03, 2024 7:39am Primary squamous cell carcinoma of base of tongue August 05, 2024 11:35am Chemotherapy management, encounter for M ay 2024 7:39am Epistaxis August 10, 2024 7:39a m Oral mucositis August 10, 2024 7:39a m Rash August 10, 2024 7:39a m Primary squamous cell carcinoma of base of tongue August 10, 2024 7:39am Radiation-induced dermatitis August 10 025 7:39am Primary squamous cell carcinoma of base of tongue August 12, 2024 12:47pm Chemotherapy management, encounter for M ay 2024 7:38am Epistaxis August 18, 2024 7:38a m Oral mucositis August 18, 2024 7:38a m Rash August 18, 2024 7:38a m Primary squamous cell carcinoma of base of tongue August 18, 2024 7:38am Radiation-induced dermatitis August 18 7:38am Primary squamous cell carcinoma of base of tongue August 19, 2024 1:10pm Primary squamous cell carcinoma of base of tongue September 15, 2024 1:54pm Radiation-induced dermatitis September 15, 2024 1:54pm Family History Relationship Condition Age at Onset Recorded Date/T shoaib Not Specified Diabetes mellitus Unknown father Cardiac disease Unknown mother Cardiac disease Unknown Disorder of lung Unknown grandmother Malignant neoplasm Unknown grandfather Malignant neoplasm Unknown Advance Directives Advance Directive Response Recorded Date/ Time Advance Directives Yes July 28, 2013 3:11pm Living Will Yes August 23, 2020 1 0:25am Power of [place] Yes August 24, 2020 8:46am Advance Directive Response Recorded Date/ Time Advance Directives Yes July 28, 2013 2:11pm Living Will Yes August 23, 2020 9 :25am Power of [place] Yes August 24, 2020 7:46am Advance Directive Response Recorded Date/ Time Advance Directives Yes July 28, 2013 3:11pm Living Will Yes December 17, 2022 7:54am Power of [place] No November 7:54am Advance Directive Response Recorded Date/ Time Living Will Yes June 22, 2024 5:28pm Do you have a Healthcare Pow er of [place] B[place]? Yes June 22, 2024 5:28pm Name of Medical Power of [place] B[place] POA GENARO RON June 22, 2024 5:28pm Advance Directives Yes July 28, 2013 3:11pm Advance Directive Response Recorded Date/ Time Advance Directives on File No July 06, 2024 9:14am Living Will Yes July 06, 2024 9:14am Do you have a Healthcare Pow er of [place]? Yes July 06, 2024 9:14am Name of Medical Power of [place] Liat Ron July 06, 2024 9:14am Advance Directives Yes July 06, 025 9:14am Living Will Yes June 22, 2024 5:28pm Do you have a Healthcare Pow er of [place]? Yes June 22, 2024 5:28pm Name of Medical Power of [place] POA GENARO RON June 22, 2024 5:28pm Living Will No July 07, 2024 10:45am Do you have a Healthcare Pow er of [place]? No July 07, 2024 10:45am Advance Directive Response Recorded Date/ Time Advance Directives Yes July 13 8:37am Advance Directives on File No July 13, 2024 8:14am Living Will Yes July 13, 2024 8:14am Do you have a Healthcare Pow er of [place]? Yes July 13, 2024 8:14am Name of Medical Power of [place] Lait Ron July 13, 2024 8:14am Living Will Yes June 22, 2024 5:28pm Do you have a Healthcare Pow er of [place]? Yes June 22, 2024 5:28pm Name of Medical Power of [place] LILIA GENARO RON June 22, 2024 5:28pm Living Will No July 07, 2024 10:45am Do you have a Healthcare Pow er of [place]? No July 07, 2024 10:45am Advance Directive Response Recorded Date/ Time Advance Directives on File No July 272024 9:35am Living Will Yes July 27, 2024 9: 35am Do you have a Healthcare Pow er of [place]? Yes July 27, 2024 9:35am Name of Medical Power of [place] Liat Ron July 27, 2024 9:35am Advance Directives Yes July 27, 2024 9:35am Living Will Yes June 22, 2024 5:28pm Do you have a Healthcare Pow er of [place]? Yes June 22, 2024 5:28pm Name of Medical Power of [place] LILIA GENARO RON June 22, 2024 5:28pm Living Will No July 07, 2024 10:45am Do you have a Healthcare Pow er of [place]? No July 07, 2024 10:45am Advance Directive Response Recorded Date/ Time Advance Directives on File No July 232024 7:56am Living Will Yes August 10, 2024 7 :56am Do you have a Healthcare Pow er of [place]? Yes August 10, 2024 7:56am Name of Medical Power of [place] Liat Ron August 10, 2024 7:56am Advance Directives Yes August 10 7:56am Living Will Yes June 22, 2024 5:28pm Do you have a Healthcare Pow er of [place]? Yes June 22, 2024 5:28pm Name of Medical Power of [place] JON GENARO RON June 22, 2024 5:28pm Living Will No July 07, 2024 10:45am Do you have a Healthcare Pow er of [place]? No July 07, 2024 10:45am Advance Directive Response Recorded Date/ Time Advance Directives on File No July 242024 9:26am Living Will Yes August 18, 2024 9 :26am Do you have a Healthcare Pow er of [place]? Yes August 18, 2024 9:26am Name of Medical Power of [place] Liat Ron August 18, 2024 9:26am Advance Directives Yes August 18 9:26am Living Will Yes June 22, 2024 5:28pm Do you have a Healthcare Pow er of [place]? Yes June 22, 2024 5:28pm Name of Medical Power of [place] JON GENARO RON June 22, 2024 5:28pm Living Will No July 07, 2024 10:45am Do you have a Healthcare Pow er of [place]? No July 07, 2024 10:45am Summary Purpose Additional Source Comments Goals (unrecognized section and content) Goals may be documented in a n alternate sectionGoals may be documented in an alternate sectionGoals may be documented in an alternate sectionGoals may be documented in an alternate sectionGoals may be documented in an alternate sectionGoals may be documented in an alternate sectionGoals may be documented in an alternate sectionGoals may be documented in an alternate sectionGoals may be documented in an alternate sectionGoals may be documented in an alternate section Care Teams (unrecognized sec tion and content) Team Status: Active Member Role Status Dates Dr. Bulmaro Curtis MD Primary Care Provider Active Team Status: Active Member Role Status Dates Dr. Bulmaro Curtis MD Primary Care Provider Active Start: May 20, 2024 Lelo Dan Attending Provider Active Start: May 20, 2024 Team Status: Inactive Member Role Status Dates Dr. Bulmaro Curtis MD Primary Care Provider Active Start: May 26, 2024 End: May 26, 2024 Dr. Cipriano Layne DO Attending Provider Active Start: May 26, 2024 End: May 26, 2024 Dr. Simon Packer MD Referring Provider Active St art: May 26, 2024 End: May 26, 2024 Team Status: Inactive Member Role Status Dates Dr. Bulmaro Curtis MD Primary Care Provider Active Start: June 02, 2024 End: June 02, 2024 Dr. Bulmaro Curtis MD Referring Provider Active Start: June 02, 2024 End: June 02, 2024 Dr. Franco Pérez MD Attending Provider Active S tart: June 02, 2024 End: June 02, 2024 Team Status: Inactive Member Role Status Dates Dr. Bulmaro Curtis MD Primary Care Provider Active Start: June 03, 2024 End: June 03, 2024 Dr. Bulmaro Curtis MD Referring Provider Active Start: June 03, 2024 End: June 03, 2024 Dr. Daniel Sánchez MD Attending Provider Active Start: June 03, 2024 End: June 03, 2024 Team Status: Active Member Role Status Dates Dr. Bulmaro Curtis MD Primary Care Provider Active Start: June 19, 2024 Dr. Cipriano Layne DO Attending Provider Active Start: June 19, 2024 Dr. Cipriano Layne DO Referring Provider Active Start: June 19, 2024 Team Status: Active Member Role Status Dates Dr. Bulmaro Curtis MD Primary Care Provider Active Start: June 23, 2024 Dr. Cipriano Layne DO Attending Provider Active Start: June 23, 2024 Dr. Cipriano Layne DO Referring Provider Active Start: June 23, 2024 Team Status: Active Member Role Status Dates Dr. Bulmaro Curtis MD Primary Care Provider Active Start: June 24, 2024 Dr. Cipriano Layne DO Attending Provider Active Start: June 24, 2024 Dr. Cipriano Layne DO Referring Provider Active Start: June 24, 2024 Team Status: Inactive Member Role Status Dates Dr. Bulmaro Curtis MD Primary Care Provider Active Start: June 29, 2024 End: June 29, 2024 Dr. Bulmaro Curtis MD Referring Provider Active Start: June 29, 2024 End: June 29, 2024 Ashly Laguerre COMPUTER NETWORK SUPPORT SPECIALIST, COMPUTER NETWORK SUPPORT SPECIALIST-C Attending Provider Active Start: June 29, 2024 End: June 29, 2024 Team Status: Inactive Member Role Status Dates Dr. Bulmaro Curtis MD Primary Care Provider Active Start: July 02, 2024 End: July 02, 2024 Dr. Daniel Sánchez MD Attending Provider Active Start: July 02, 2024 End: July 02, 2024 Dr. Daniel Sánchez MD Referring Provider Active Start: July 02, 2024 End: July 02, 2024 Team Status: Active Member Role Status Dates Dr. Bulmaro Curtis MD Primary Care Provider Active Start: July 02, 2024 Dr. Daniel Sánchez MD Attending Provider Active Start: July 02, 2024 Dr. Daniel Sánchez MD Referring Provider Active Start: July 02, 2024 Dr. Daniel Sánchez MD Other Provider Active St art: July 02, 2024 Team Status: Active Member Role Status Dates Dr. Bulmaro Curtis MD Primary Care Provider Active Start: July 02, 2024 End: July 02, 2024 Dr. Andry Juárez MD Attending Provider Active S tart: July 02, 2024 End: July 02, 2024 Dr. Jovon Martin MD Referring Provider Active Start: July 02, 2024 End: July 02, 2024 Team Status: Inactive Member Role Status Dates Dr. Bulmaro Curtis MD Primary Care Provider Active Start: July 06, 2024 End: July 06, 2024 Dr. Bulmaro Curtis MD Referring Provider Active Start: July 06, 2024 End: July 06, 2024 Dr. Franco Pérez MD Attending Provider Active S tart: July 06, 2024 End: July 06, 2024 Team Status: Inactive Member Role Status Dates Dr. Bulmaro Curtis MD Primary Care Provider Active Start: July 06, 2024 End: July 06, 2024 Elicia LONGO PA-C Attending Provider Active Start: July 06, 2024 End: July 06, 2024 Elicia LONGO PA-C Referring Provider Active Start: July 06, 2024 End: July 06, 2024 Team Status: Inactive Member Role Status Dates Dr. Bulmaro Curtis MD Primary Care Provider Active Start: July 08, 2024 End: July 08, 2024 Dr. Cipriano Layne DO Attending Provider Active Start: July 08, 2024 End: July 08, 2024 Dr. Cipriano Layne DO Referring Provider Active Start: July 08, 2024 End: July 08, 2024 Team Status: Inactive Member Role Status Dates Dr. Bulmaro Curtis MD Primary Care Provider Active Start: July 09, 2024 End: July 09, 2024 Dr. Daniel Sánchez MD Attending Provider Active Start: July 09, 2024 End: July 09, 2024 Dr. Daniel Sánchez MD Referring Provider Active Start: July 09, 2024 End: July 09, 2024 Team Status: Active Member Role Status Dates Dr. Bulmaro Curtis MD Primary Care Provider Active Start: July 09, 2024 Dr. Daniel Sánchez MD Attending Provider Active Start: July 09, 2024 Dr. Daniel Sánchez MD Referring Provider Active Start: July 09, 2024 Dr. Daniel Sánchez MD Other Provider Active St art: July 09, 2024 Team Status: Inactive Member Role Status Dates Dr. Bulmaro Curtis MD Primary Care Provider Active Start: July 13, 2024 End: July 13, 2024 Dr. Bulmaro Curtis MD Referring Provider Active Start: July 13, 2024 End: July 13, 2024 Dr. Franco Pérez MD Attending Provider Active S tart: July 13, 2024 End: July 13, 2024 Team Status: Inactive Member Role Status Dates Dr. Bulmaro Curtis MD Primary Care Provider Active Start: July 13, 2024 End: July 13, 2024 Dr. Bulmaro Curtis MD Referring Provider Active Start: July 13, 2024 End: July 13, 2024 Dr. Daniel Sánchez MD Attending Provider Active Start: July 13, 2024 End: July 13, 2024 Team Status: Inactive Member Role Status Dates Dr. Bulmaro Curtis MD Primary Care Provider Active Start: July 14, 2024 End: July 14, 2024 Dr. Cipriano Layne DO Attending Provider Active Start: July 14, 2024 End: July 14, 2024 Dr. Cipriano Layne DO Referring Provider Active Start: July 14, 2024 End: July 14, 2024 Team Status: Inactive Member Role Status Dates Dr. Bulmaro Curtis MD Primary Care Provider Active Start: July 15, 2024 End: July 15, 2024 Dr. Cipriano Layne DO Attending Provider Active Start: July 15, 2024 End: July 15, 2024 Team Status: Inactive Member Role Status Dates Dr. Bulmaro Curtis MD Primary Care Provider Active Start: July 20, 2024 End: July 20, 2024 Dr. Bulmaro Crutis MD Referring Provider Active Start: July 20, 2024 End: July 20, 2024 Dr. Franco Pérez MD Attending Provider Active S tart: July 20, 2024 End: July 20, 2024 Team Status: Inactive Member Role Status Dates Dr. Bulmaro Curtis MD Primary Care Provider Active Start: July 22, 2024 End: July 22, 2024 Dr. Bulmaro Curtis MD Referring Provider Active Start: July 22, 2024 End: July 22, 2024 Dr. Cipriano Layne DO Attending Provider Active Start: July 22, 2024 End: July 22, 2024 Team Status: Inactive Member Role Status Dates Dr. Bulmaro Curtis MD Primary Care Provider Active Start: July 22, 2024 End: July 22, 2024 Dr. Bulmaro Curtis MD Referring Provider Active Start: July 22, 2024 End: July 22, 2024 Elicia LONGO PA-C Attending Provider Active Start: July 22, 2024 End: July 22, 2024 Team Status: Inactive Member Role Status Dates Dr. Bulmaro Curtis MD Primary Care Provider Active Start: July 27, 2024 End: July 27, 2024 Dr. Bulmaro Curtis MD Referring Provider Active Start: July 27, 2024 End: July 27, 2024 Dr. Franco Pérez MD Attending Provider Active S tart: July 27, 2024 End: July 27, 2024 Team Status: Active Member Role Status Dates Dr. Bulmaro Curtis MD Primary Care Provider Active Start: July 27, 2024 Dr. Cipriano Layne DO Attending Provider Active Start: July 27, 2024 Team Status: Active Member Role Status Dates Dr. Bulmaro Curtis MD Primary Care Provider Active Start: July 28, 2024 Dr. Cipriano Layne DO Attending Provider Active Start: July 28, 2024 Team Status: Inactive Member Role Status Dates Dr. Bulmaro Cutris MD Primary Care Provider Active Start: July 29, 2024 End: July 29, 2024 Dr. Cipriano Layne DO Attending Provider Active Start: July 29, 2024 End: July 29, 2024 Team Status: Inactive Member Role Status Dates Dr. Bulmaro Curtis MD Primary Care Provider Active Start: August 03, 2024 End: August 03, 2024 Dr. Bulmaro Curtis MD Referring Provider Active Start: August 03, 2024 End: August 03, 2024 Dr. Franco Pérez MD Attending Provider Active S tart: August 03, 2024 End: August 03, 2024 Team Status: Inactive Member Role Status Dates Dr. Bulmaro Curtis MD Primary Care Provider Active Start: August 05, 2024 End: August 05, 2024 Dr. Cipriano Layne DO Attending Provider Active Start: August 05, 2024 End: August 05, 2024 Team Status: Inactive Member Role Status Dates Dr. Bulmaro Curtis MD Primary Care Provider Active Start: August 10, 2024 End: August 10, 2024 Dr. Bulmaro Curtis MD Referring Provider Active Start: August 10, 2024 End: August 10, 2024 Dr. Franco Pérez MD Attending Provider Active S tart: August 10, 2024 End: August 10, 2024 Team Status: Active Member Role Status Dates Dr. Bulmaro Curtis MD Primary Care Provider Active Start: August 10, 2024 Dr. Cipriano Layne DO Attending Provider Active Start: August 10, 2024 Dr. Cipriano Layne DO Referring Provider Active Start: August 10, 2024 Team Status: Active Member Role Status Dates Dr. Bulmaro Curtis MD Primary Care Provider Active Start: August 12, 2024 Dr. Cipriano Layne DO Attending Provider Active Start: August 12, 2024 Dr. Franco Pérez MD Referring Provider Active S tart: August 12, 2024 Team Status: Inactive Member Role Status Dates Dr. Bulmaro Curtis MD Primary Care Provider Active Start: August 12, 2024 End: August 12, 2024 Dr. Cipriano Layne DO Attending Provider Active Start: August 12, 2024 End: August 12, 2024 Team Status: Active Member Role Status Dates Dr. Bulmaro Curtis MD Family Provider Active Dr. Bulmaro Curtis MD Primary Care Provider Active Team Status: Inactive Member Role Status Dates Dr. Bulmaro Curtis MD Primary Care Provider, Attending Provider Active Team Status: Inactive Member Role Status Dates Dr. Bulmaro Curtis MD Primary Care Provider, Referring Provider Active Dr. Leonel Carolina DO Attending Provider Active Team Status: Inactive Member Role Status Dates Dr. Bulmaro Curtis MD Primary Care Provider Active Dianna Knight COMPUTER NETWORK SUPPORT SPECIALIST, COMPUTER NETWORK SUPPORT SPECIALIST-C Attending Provider Active Team Status: Active Member Role Status Dates Dr. Bulmaro Curtis MD Primary Care Provider Active Dr. Leonel Carolina DO Attending Provider, Referring Pro vider Active Team Status: Inactive Member Role Status Dates Dr. Bulmaro Curtis MD Primary Care Provider, Referring Provider Active Dianna Knight NP, COMPUTER NETWORK SUPPORT SPECIALIST-C Attending Provider Active Team Status: Inactive Member Role Status Dates Dr. Bulmaro Curtis MD Primary Care Provider Active Dr. Leonel Carolina DO Attending Provider, Referring Pro vider Active Team Status: Inactive Member Role Status Dates Dr. Bulmaro Curtis MD Primary Care Provider Active Dianna Knight COMPUTER NETWORK SUPPORT SPECIALIST, COMPUTER NETWORK SUPPORT SPECIALIST-C Attending Provider, Referrin g Provider Active Team Status: Inactive Member Role Status Dates Dr. Bulmaro Curtis MD Primary Care Provider Active Kamari Bah MD Attending Provider, Emergency Provid er Active Team Status: Inactive Member Role Status Dates Dr. Bulmaro Curtis MD Primary Care Provider Active Dr. Iraj Dubois MD Attending Provider, Referring Pr ovider Active Team Status: Inactive Member Role Status Dates Dr. Bulmaro Curtis MD Primary Care Provider Active Start: April 13, 2024 End: April 13, 2024 Dr. Iraj Dubois MD Attending Provider Active Start: April 13, 2024 End: April 13, 2024 Dr. Iraj Dubois MD Referring Provider Active Start: April 13, 2024 End: April 13, 2024 Team Status: Active Member Role Status Dates Dr. Bulmaro Curtis MD Primary Care Provider Active Start: June 19, 2024 Dr. Ciprinao Layne DO Attending Provider Active Start: June 19, 2024 Dr. Franco Pérez MD Referring Provider Active S tart: June 19, 2024 Team Status: Active Member Role Status Dates Dr. Bulmaro Curtis MD Primary Care Provider Active Start: June 19, 2024 Dr. Cipriano Layne DO Attending Provider Active Start: June 19, 2024 Team Status: Active Member Role Status Dates Dr. Bulmaro Curtis MD Primary Care Provider Active Start: June 23, 2024 Dr. Cipriano Layne DO Attending Provider Active Start: June 23, 2024 Team Status: Active Member Role Status Dates Dr. Bulmaro Curtis MD Primary Care Provider Active Start: June 24, 2024 Dr. Cipriano Layne DO Attending Provider Active Start: June 24, 2024 Team Status: Active Member Role Status Dates Dr. Bulmaro Curtis MD Primary Care Provider Active Start: July 06, 2024 Elicia LONGO PA-C Attending Provider Active Start: July 06, 2024 Elicia LONGO PA-C Referring Provider Active Start: July 06, 2024 Team Status: Inactive Member Role Status Dates Dr. Bulmaro Curtis MD Primary Care Provider Active Start: July 08, 2024 End: July 08, 2024 Dr. Bulmaro Curtis MD Referring Provider Active Start: July 08, 2024 End: July 08, 2024 Dr. Cipriano Layne DO Attending Provider Active Start: July 08, 2024 End: July 08, 2024 Team Status: Active Member Role Status Dates Dr. Bulmaro Curtis MD Primary Care Provider Active Start: July 09, 2024 Dr. Cipriano Layne DO Attending Provider Active Start: July 09, 2024 Dr. Franco Pérez MD Referring Provider Active S tart: July 09, 2024 Team Status: Active Member Role Status Dates Dr. Bulmaro Curtis MD Primary Care Provider Active Start: July 10, 2024 Dr. Cipriano Layne DO Attending Provider Active Start: July 10, 2024 Dr. Franco Pérez MD Referring Provider Active S tart: July 10, 2024 Tax Lawyer Relationship Specialty Start Date End Date Evie Blank APRN-EXTRUDER OPERATOR HELPER [address] [place] [id number] TOWER EXCAVATOR OPERATOR Anesthesiology 05/23/24 Kristofer Anderson CCC-[employer] [address] [place], [place] [id number] Speech Language Pathologist Speech Pathology 05/23/24 Simon Packer MD [address] [place] [id number] Physician Otolaryngology 05/23/24 Team Status: Active Member Role Status Dates Dr. Bulmaro Curtis MD Primary Care Provider Active Start: July 13, 2024 Dr. Cipriano Layne DO Attending Provider Active Start: July 13, 2024 Dr. Cipriano Layne DO Referring Provider Active Start: July 13, 2024 Team Status: Active Member Role Status Dates Dr. Bulmaro Curtis MD Primary Care Provider Active Start: July 17, 2024 Dr. Cipriano Layne DO Attending Provider Active Start: July 17, 2024 Dr. Franco Pérez MD Referring Provider Active S tart: July 17, 2024 Tax Lawyer Relationship Specialty Start Date End Date Evie Blank APRN-EXTRUDER OPERATOR HELPER [address] [place] [id number] TOWER EXCAVATOR OPERATOR Anesthesiology 05/23/24 Kristofer Anderson CCC-[employer] [address] [place], [place] [id number] Speech Language Pathologist Speech Pathology 05/23/24 Simon Packer MD [address] [place] [place] [id number] Physician Otolaryngology 05/23/24 Team Status: Active Member Role Status Dates Dr. Bulmaro Curtis MD Primary Care Provider Active Start: July 31, 2024 Dr. Cipriano Layne DO Attending Provider Active Start: July 31, 2024 Dr. Cipriano Layne DO Referring Provider Active Start: July 31, 2024 Team Status: Active Member Role Status Dates Dr. Bulmaro Curtis MD Primary Care Provider Active Start: August 05, 2024 Dr. Cipriano Layne DO Attending Provider Active Start: August 05, 2024 Dr. Franco Pérez MD Referring Provider Active S tart: August 05, 2024 Team Status: Active Member Role Status Dates Dr. Bulmaro Curtis MD Primary Care Provider Active Start: August 07, 2024 Dr. Cipriano Layne DO Attending Provider Active Start: August 07, 2024 Dr. Cipriano Layne DO Referring Provider Active Start: August 07, 2024 Team Status: Active Member Role Status Dates Dr. Bulmaro Curtis MD Primary Care Provider Active Start: August 10, 2024 Dr. Cipriano Layne DO Attending Provider Active Start: August 10, 2024 Dr. Franco Pérez MD Referring Provider Active S tart: August 10, 2024 Team Status: Inactive Member Role Status Dates Dr. Bulmaro Curtis MD Primary Care Provider Active Start: August 18, 2024 End: August 18, 2024 Dr. Bulmaro Curtis MD Referring Provider Active Start: August 18, 2024 End: August 18, 2024 Dr. Franco Pérez MD Attending Provider Active S tart: August 18, 2024 End: August 18, 2024 Team Status: Active Member Role Status Dates Dr. Bulmaro Curtis MD Primary Care Provider Active Start: August 18, 2024 Dr. Cipriano Layne DO Attending Provider Active Start: August 18, 2024 Dr. Franco Pérez MD Referring Provider Active S tart: August 18, 2024 Tax Lawyer Relationship Specialty Start Date End Date Evie Blank APRN-EXTRUDER OPERATOR HELPER [address] [place] [id number] TOWER EXCAVATOR OPERATOR Anesthesiology 05/23/24 Kristofer Anderson, [facility]-[employer] [address] [place], [place] [id number] Speech Language Pathologist Speech Pathology 05/23/24 Simon Packer MD [address] [place], [place] [id number] Physician Otolaryngology 05/23/24 Team Status: Inactive Member Role Status Dates Dr. Bulmaro Curtis MD Primary Care Provider Active Start: July 15, 2024 End: July 15, 2024 Dr. Cipriano Layne DO Attending Provider Active Start: July 15, 2024 End: July 15, 2024 Dr. Cipriano Layne DO Referring Provider Active Start: July 15, 2024 End: July 15, 2024 Team Status: Active Member Role Status Dates Dr. Bulmaro Curtis MD Primary Care Provider Active Start: August 19, 2024 Dr. Cipriano Layne DO Attending Provider Active Start: August 19, 2024 Dr. Franco Pérez MD Referring Provider Active S tart: August 19, 2024 Team Status: Inactive Member Role Status Dates Dr. Bulmaro Curtis MD Primary Care Provider Active Start: August 19, 2024 End: August 19, 2024 Dr. Bulmaro Curtis MD Referring Provider Active Start: August 19, 2024 End: August 19, 2024 Dr. Cipriano Layne DO Attending Provider Active Start: August 19, 2024 End: August 19, 2024 Tax Lawyer Relationship Specialty Start Date End Date Evie Blank APRN-EXTRUDER OPERATOR HELPER [address] [place] [address] TOWER EXCAVATOR OPERATOR Anesthesiology 05/23/24 Kristofer Anderson, [facility]-[employer] [address] [place], [place] [id number] Speech Language Pathologist Speech Pathology 05/23/24 Simon Packer MD [address] [place] [address] [id number] Physician Otolaryngology 05/23/24 Team Status: Inactive Member Role Status Dates Dr. Bulmaro Curtis MD Primary Care Provider Active Start: July 22, 2024 End: July 22, 2024 Dr. Cipriano Layne DO Attending Provider Active Start: July 22, 2024 End: July 22, 2024 Dr. Cipriano Layne DO Referring Provider Active Start: July 22, 2024 End: July 22, 2024 Team Status: Active Member Role Status Dates Dr. Bulmaro Curtis MD Primary Care Provider Active Start: July 27, 2024 Dr. Cipriano Layne DO Attending Provider Active Start: July 27, 2024 Dr. Cipriano Layne DO Referring Provider Active Start: July 27, 2024 Team Status: Active Member Role Status Dates Dr. Bulmaro Curtis MD Primary Care Provider Active Start: July 28, 2024 Dr. Cipriano Layne DO Attending Provider Active Start: July 28, 2024 Dr. Cipriano Layne DO Referring Provider Active Start: July 28, 2024 Team Status: Inactive Member Role Status Dates Dr. Bulmaro Curtis MD Primary Care Provider Active Start: July 29, 2024 End: July 29, 2024 Dr. Cipriano Layne DO Attending Provider Active Start: July 29, 2024 End: July 29, 2024 Dr. Cipriano Layne DO Referring Provider Active Start: July 29, 2024 End: July 29, 2024 Team Status: Inactive Member Role Status Dates Dr. Bulmaro Curtis MD Primary Care Provider Active Start: August 05, 2024 End: August 05, 2024 Dr. Cipriano Layne DO Attending Provider Active Start: August 05, 2024 End: August 05, 2024 Dr. Cipriano Layne DO Referring Provider Active Start: August 05, 2024 End: August 05, 2024 Team Status: Inactive Member Role Status Dates Dr. Bulmaro Curtis MD Primary Care Provider Active Start: August 12, 2024 End: August 12, 2024 Dr. Cipriano Layne DO Attending Provider Active Start: August 12, 2024 End: August 12, 2024 Dr. Cipriano Layne DO Referring Provider Active Start: August 12, 2024 End: August 12, 2024 Team Status: Active Member Role Status Dates Dr. Bulmaro Curtis MD Primary Care Provider Active Start: August 20, 2024 Dr. Cipriano Layne DO Attending Provider Active Start: August 20, 2024 Team Status: Inactive Member Role Status Dates Dr. Bulmaro Curtis MD Primary Care Provider Active Start: September 15, 2024 End: September 15, 2024 Dr. Bulmaro Curtis MD Referring Provider Active Start: September 15, 2024 End: September 15, 2024 Dr. Cipriano Layne DO Attending Provider Active Start: September 15, 2024 End: September 15, 2024 Team Status: Active Member Role Status Dates Dr. Bulmaro Curtis MD Primary Care Provider Active Start: September 15, 2024 Dr. Cipriano Layne DO Attending Provider Active Start: September 15, 2024 Dr. Cipriano Layne DO Referring Provider Active Start: September 15, 2024 Team Status: Active Member Role Status Dates Dr. Bulmaro Curtis MD Primary Care Provider Active Start: September 15, 2024 Dr. Cipriano Layne DO Attending Provider Active Start: September 15, 2024 Dr. Franco Pérez MD Referring Provider Active S tart: September 15, 2024 (unrecognized sect ion and content) No Status Records FoundNo Status Records Found INFORMATION SOURCE (unrecogn ized section and content) DATE CREATED AUTHOR 08/21/2024 [employer] DATE CREATED AUTHOR AUTHOR'S ORGANIZ ATION 09/22/2024 [facility] Reason for Visit (unrecogniz ed section and content) Reason Comments New patient, to establish relationship L ump on right side of neck Reason Onset Date Comments Outreach 05/04/2024 PRN Active and Recently Administ ered Medications (unrecognized section and content) Medication Order 05/06/2024 05/07/2024 05/08/2024 fentaNYL (SUBLIMAZE) 50 MCG/ML injection 12.5 mcg, Intravenous Push, EVERY 5 MIN PRN, 5 doses, Starting on Sat05/08/24 at 0715, Until Sat05/08/24 at 1240, Moderate Pain (pain score 4,5,6), PACU Now HYDROmorphone (DILAUDID) 1 mg/mL injection 0.5 mg, Intravenous Push, PACU EVERY 15 MIN PRN X 4 DOSES, 4 doses, Starting on Sat05/08/24 at 0715, Until Sat05/08/24 at 1240, Severe Pain (pain score 7,8,9,10), PACU Now ipratropium-albuterol (DUO-NEB) 0.5-2.5 (3) MG/3ML nebulizer solution (COMPLETED) 3 mL, Nebulization, ONCE PRN, 1 dose, Starting on Sat05/08/24 at 0920, Until Sat05/08/24 at 0925, Wheezing, Pre-op 0925 (Given - Provid er: Steve Chery RN) naloxone (NARCAN) 0.4 MG/ML injection 0.4 mg, Intravenous Push, PRN, Starting on Sat05/08/24 at 0715, Until Sat05/08/24 at 1240, Respiratory Rate Less Than 8 for adults and less than 12 for Peds or for suspected overdose, PACU Now oxyCODONE immediate release tablet 5 mg, Oral, PRN, 1 dose, Starting on Sat05/08/24 at 0715, Until Sat05/08/24 at 1240, Moderate Pain (pain score 4,5,6), PACU Now prochlorperazine (COMPAZINE) tablet 5 mg, Oral, EVERY 6 HOURS PRN, Starting on Sat05/08/24 at 0715, Until Sat05/08/24 at 1240, Nausea, PACU Now sodium chloride 0.9 % injection 3 mL, Intravenous Push, PRN, Starting on Sat05/08/24 at 0715, Until Sat05/08/24 at 1240, For medication administration and blood draw, PACU Now FOR RECORDS PERTAINING TO PATIENTS WHO ARE OR HAVE BEEN ENROLLED IN A CHEMICAL DEPENDENCY/SUBSTANCEABUSE PROGRAM, SOME INFORMATION MAY BE OMITTED. This clinical summary was aggregated from multiple sources. Caution should be exercised in using it in the provision of clinical care. This summary normalizes information from multiple sources, and as a consequence, information in this document may materially change the coding, format and clinical context of patient data. In addition, data may be omitted in some cases. CLINICAL DECISIONS SHOULD BE BASED ON THE PRIMARY CLINICAL RECORDS. [email or web address] [facility]. provides no warranty or guarantee of the accuracy or completeness of information in this document.
[2024-09-25 21:22] LABS: AST(SGOT) 26 U/L (<=37); Alanine Aminotransfer ALT/SGPT 31 U/L (<=46); Albumin, Serum 3.7 g/dL (3.4-4.8); Alkaline Phosphatase 100 U/L (40-129); Anion Gap 18 (5-15); BUN 28 mg/dL (4-19); BUN/Creat Ratio 20.0 RATIO (10-20); Calcium,Total 9.4 mg/dL (7.6-11.0); Carbon Dioxide 24.0 mmol/L (21.0-32.0); Chloride 93 mmol/L (98-108); Estimated Creatinine Clearance 63.36 ml/min (50-250); Globulin 2.7 g/dL (2.2-4.2); Glucose 152 mg/dL (70-99); Potassium 3.6 mmol/L (3.3-5.1)
[2024-09-25 21:25] LABS: Differential Comment SCANNED
--- NOTE | 2024-09-25 22:39 | HP.PCM.HOS_ITS ---
[facility] - [facility] Date of Admission: 09/25/24 Date of Service: 09/25/24 Chief Complaint: Fall at Home with Orthostasis. [facility] Narrative ROBERT RON, is a 73 M with a past medical history of essential hypertension; on valsartan and hydrochlorothiazide, hyperlipidemia; on atorvastatin, obesity; with BMI of 32 this admission, WALE; on CPAP, former tobacco abuse (quit 2019); with subsequent COPD on budesonide twice daily plus as needed albuterol, history of saddle PE (2019); on rivaroxaban, history of squamous cell carcinoma; s/p chemotherapy and radiation which he finished ~2 weeks ago with PEG tube (07/02/2024) in place for everything but fluids which she takes by mouth, radiation-induced dermatitis of the Right neck; on dexamethasone 4 mg daily, depression; on citalopram, seasonal allergies; on cetirizine daily prn, allergic rhinitis; on fluticasone NS daily prn, remote history of fall with concussion and OA; on ibuprofen every 6 hours as needed and oxycodone 5 mg p.o. 3 times daily as needed who presents to [facility] ER complaining of fall at home with orthostasis. Mr. Ron reports his symptoms began earlier this evening just prior to arrival when he had a bowel movement and attempted to stand up from the toilet when he noted both of his legs felt weak and shaky. He subsequently fell onto his Left side hitting his elbow and ribs on the medicine cabinet and his back on the toilet. Because he was wedged between the toilet and the bathtub he was unable to get up causing his to activate EMS. He denies significant head injury or loss of consciousness with this fall but he did sustain a ~1 cm skin tear over his Left elbow and he does admit to taking two 5 mg hydrocodone's approximately 1 hour prior to his fall. He does admit to soreness of his Left anterior rib cage in addition to continued redness on the Right side of his neck from his radiation dermatitis that is slowly improving. He denies associated fever, chills, chest pain, palpitations, heart racing, syncope, shortness of breath, cough, abdominal pain, nausea, vomiting, diarrhea, constipation or headache. In the ER he was noted to have a Leukocytosis of 13.4 K with Left- shift of 3.4% in addition to Lactic Acidosis of 5 mmol/L with elevated anion gap of 18 all present on admission with Hypotension of 85/54 mmHg noted shortly after admission very concerning for Sepsis of unknown origin in addition to Hyperbilirubinemia with a total bilirubin of 2.12 mg/dL present on admission (up from his baseline of 1.38 mg/dL on September 15, 2024) with UA and CT scan of abdomen and pelvis negative for acute pathologic changes but CTA of the chest with IV contrast revealing Bilateral Pulmonary Emboli; constituting treatment failure of rivaroxaban compounded by Orthostatic Hypotension in the ER with his blood pressure dropping to 69/51 mmHg after standing for 1 minute and then rising to 81/61 mmHg while sitting and 97/54 mmHg lying flat. The patient was then admitted to the ICU for ongoing care for a stay that is expected to extend beyond 2 midnights. [facility] Medical History Encounter for education Wears glasses Edentulous High cholesterol Injury of head and neck History of hiatal hernia CPAP (continuous positive airway pressure) dependence Shortness of breath on exertion Former smoker History of edema History of echocardiogram COPD (chronic obstructive pulmonary disease) Tongue cancer Hyperglycemia Essential hypertension Hypoxia Saddle pulmonary embolus Home Medications ?Medication ?Instructions ?Recorded ?Last Taken ?Type atorvastatin 40 mg tablet 40 mg PO QHS 05/04/19 History cholecalciferol (vitamin D3) 25 1,000 unit PO DAILY foster pplement 05/04/19 05/04/19 History mcg (1,000 unit) tablet rivaroxaban 15 mg tablet 20 mg PO QHS 11/30/21 History citalopram 20 mg tablet (Celexa) 20 mg PO QHS 05/08/22 Unknown History budesonide 160 mcg-glycopyr 9 2 inh inhalation BID #10 .7 grams 07/31/23 Unknown Rx mcg-formot 4.8 mcg/actuation HFA inhaler (Breztri Aerosphere) cetirizine 10 mg capsule (Zyrtec) 10 mg PO DAILY PRN a llergy symptoms 07/31/23 Unknown History fluticasone furoate 27.5 2 spray intranasal DAILY PRN 07/31/23 Unknown History mcg/actuation nasal allergy symptoms spray,suspension (Flonase Sensimist) hydrochlorothiazide 12.5 mg tablet 12.5 mg PO QHS 0511/15 Unknown History valsartan 320 mg tablet 320 mg PO QHS 07/31/23 Unkno wn History acetaminophen 500 mg capsule 500 mg PO Q6H PRN pain 07/01/24 History acetaminophen 300 mg-codeine 30 mg 1 - 2 tab PO Q6H IA N PRN pain 06/22/24 Unknown History tablet ibuprofen 600 mg tablet 600 mg PO Q6H PRN PRN pain 0 06/22/24 Unknown History lidocaine-prilocaine 2.5 %-2.5 % 1 applic topical ONCE PRN port 06/29/24 Unknown Rx topical cream access 30 days #30 grams albuterol sulfate 90 mcg/actuation 2 puff inhalation Q 4H PRN 07/07/24 Unknown Rx aerosol inhaler shortness of breath or wheez ing #1 ea MAGIC MOUTH WASH (BMX) 180 mL 15 ml PO .qid PRN pain # 180 mL 07/21/24 Unknown Rx suspension dexamethasone 4 mg tablet 4 mg PO QDAY #14 tabs Unknown Rx oxycodone 5 mg capsule 5 mg PO TID PRN pain 2 weeks #80 09/15/24 Unknown Rx caps Allergy/AdvReac Type Severity Reaction Status Date / Time Sulfa (Sulfonamide Allergy Rash Verified 09/25/24 19:59 Antibiotics) Family History Father Heart disease Mother Heart disease Lung disease Grandmother Cancer Grandfather Cancer Other Diabetes Surgical History History of vascular access device History of surgery History of esophagogastroduodenoscopy (EGD) History of colonoscopy History of appendectomy History of tonsillectomy Cataracts, both eyes H/O parotidectomy Social History Smoking Status: Former smoker how long ago did patient quit smokin second hand exposure: Yes ROS ROS Narrative Review of Systems: Constitutional: Patient denies fever or chills. Eyes: Patient denies changes in vision or discharge from eyes. ENT: Patient denies runny nose, sore throat or ear pain. Resp: Patient denies shortness of breath or cough. CV: Patient admits to Left chest wall pain after recent fall as per HPI. Denies palpitations, heart racing or lower extremity edema. GI: Patient denies abdominal pain, nausea, vomiting, diarrhea or constipation. : Patient denies dysuria or hematuria. MSK: Patient admits to transient leg weakness and buckling that preceded his fall. Skin: Patient admits to laceration over his Left elbow. He also admits to chronic redness over his Right neck. Psych: Patient denies symptoms uncontrolled depression or anxiety. Neuro: Patient denies headache, paresthesias or focal neurologic deficits. Allergy: Patient denies lip swelling, tongue swelling or urticaria. Hematology: Patient admits easy bleeding and easy bruisability on rivaroxaban. Endocrinology: Patient denies polyuria, polydipsia, polyphagia or heat/cold intolerance. 14 point ROS otherwise negative except for positives noted above in HPI. Vital Signs Vital Signs Vital Signs: 09/25/24 19:56 09/25/24 20:06 09/25/24 20:12 Temperature 98.4 F 98.4 F Temperature Source Axillary Oral Pulse Rate 66 64 Pulse Rate [Lying] Pulse Rate [Sitting (for 1 minute prior to obtaining)] Pulse Rate [Standing (for 1 minute prior to obtaining)] Respiratory Rate 22 H 18 Respiratory Effort Normal Respiratory Depth Normal Respiratory Pattern Normal Blood Pressure 85/54 L 115/63 Blood Pressure [Lying] Blood Pressure [Sitting (for 1 minute prior to obtaining)] Blood Pressure [Standing (for 1 minute prior to obtaining)] Blood Pressure Mean 64 80 Blood Pressure Mean [Lying] Blood Pressure Mean [Sitting (for 1 minute prior to obtaining)] Blood Pressure Mean [Standing (for 1 minute prior to obtaining)] Pulse Ox 97 96 Oxygen Delivery Method Room Air Room Air Room Air 09/25/24 20:28 09/25/24 20:49 09/25/24 21:00 Temperature 98.4 F Temperature Source Oral Pulse Rate 72 Pulse Rate [Lying] 73 Pulse Rate [Sitting (for 1 minute prior to obtaining)] 83 Pulse Rate [Standing (for 1 minute prior to obtaining)] 87 Respiratory Rate 18 Respiratory Effort Respiratory Depth Respiratory Pattern Blood Pressure 100/64 Blood Pressure [Lying] 97/54 L Blood Pressure [Sitting (for 1 minute prior to obtaining)] 81/61 L Blood Pressure [Standing (for 1 minute prior to obtaining)] 69/51 L Blood Pressure Mean 76 Blood Pressure Mean [Lying] 68 Blood Pressure Mean [Sitting (for 1 minute prior to obtaining)] 67 Blood Pressure Mean [Standing (for 1 minute prior to obtaining)] 57 Pulse Ox 95 Oxygen Delivery Method Room Air Room Air 09/25/24 22:00 Temperature 98.4 F Temperature Source Oral Pulse Rate 87 Pulse Rate [Lying] Pulse Rate [Sitting (for 1 minute prior to obtaining)] Pulse Rate [Standing (for 1 minute prior to obtaining)] Respiratory Rate 18 Respiratory Effort Respiratory Depth Respiratory Pattern Blood Pressure 100/61 Blood Pressure [Lying] Blood Pressure [Sitting (for 1 minute prior to obtaining)] Blood Pressure [Standing (for 1 minute prior to obtaining)] Blood Pressure Mean 74 Blood Pressure Mean [Lying] Blood Pressure Mean [Sitting (for 1 minute prior to obtaining)] Blood Pressure Mean [Standing (for 1 minute prior to obtaining)] Pulse Ox 94 Oxygen Delivery Method Room Air Weight Weight: 249 lb 9.012 oz Body Mass Index (BMI) 32.0 Results Lab / Micro Data 09/25/24 20:31 09/25/24 20:31 Labs: Laboratory Results - last 24 hr 09/25/24 20:31: WBC 13.4 H, RBC 4.41 L, Hgb 13.9, Hct 41.7, MCV 94.6 H, MCH 31.5, MCHC 33.3, RDW Std Deviation 63.6 H, RDW Coeff of Neftali 18.5 H, Plt Count 87 L, MPV 10.4, Immature Gran % (Auto) 3.400 H, Neut % (Auto) 87.7 H, Lymph % (Auto) 1.1 L, Pender % (Auto) 7.0, Eos % (Auto) 0.4, Baso % (Auto) 0.4, Absolute Neuts (auto) 11.7 H, Absolute Lymphs (auto) 0.15 L, Nucleated RBC % 0, Differential Comment SCANNED, Platelet Estimate MOD DEC, PT 20.3 H, INR 1.7, APTT 29.8, Sodium 135, Potassium 3.6, Chloride 93 L, Carbon Dioxide 24.0, Anion Gap 18 H, BUN 28 H, Creatinine 1.41 H, Estim Creat Clear Calc 63.36, Est GFR (MDRD) Non-Af 53 L, BUN/Creatinine Ratio 20.0, Glucose 152 H, Lactic Acid 5.0 H* , Calcium 9.4, Total Bilirubin 2.12 H, AST 26, ALT 31, Alkaline Phosphatase 100, Total Protein 6.5, Albumin 3.7, Globulin 2.7, Albumin/Globulin Ratio 1.4 Imaging Radiology Impression Ribs w/Chest X-Ray 09/25/24 20:55 IMPRESSION: No displaced rib fractures. Reading Location: [id number] Imaging Services [address] [place] [address] [id number] Abdomen/Pelvis W IV Cont ONLY MR#: [id number] Acct: [id number] Name: ROBERT RON Rep #: [id number] : 1950 M 73 From: Alyson Austin MD PCP: Dr. Bulmaro Curtis MD Status: ADM IN Study: Abdomen/Pelvis W IV Cont ONLY Date of Exam: 09/25/24 Exam# [id number] Ordering Dr: Vicente Tee DO PROCEDURE: ABDOMEN/PELVIS W IV CONT ONLY 09/25/2024 REASON FOR EXAM: LACTIC ACIDOSIS UNKNOWN ETIOLOGY TECHNIQUE: ABDOMEN/PELVIS W IV CONT ONLY Coronal and Sagittal reconstruction series were provided. CONTRAST: Isovue 370 VOLUME: 100 mL One or more dose reduction techniques were used (e.g., Automated exposure control, adjustment of the mA and/or kV according to patient size, use of iterative reconstruction technique. RADIATION DOSE SUMMARY: DLP: 1400 mGycm COMPARISON: None. FINDINGS: Lung bases: Tiny left lower lobe pulmonary nodule (series 8, image 10). Bibasilar atelectasis. Liver: The liver is normal in size with scattered hypodensities, too small to characterize but likely cysts. The major portal veins are patent. No biliary ductal dilation. Gallbladder: No radiopaque stones within the gallbladder. Spleen: Normal in size. Pancreas: Unremarkable. Adrenals: No adrenal mass. Kidneys: Mild right renal cortical scarring with right renal calculi. No hydronephrosis. Bilateral renal cysts. Bladder: Distended and unremarkable. Reproductive Organs: Unremarkable. Bowel: Gastrostomy tube in place. The bowel loops are nondilated. No ascites or pneumoperitoneum. Prior appendectomy. Mild distal colonic diverticulosis. Lymph nodes: No suspicious lymph node enlargement. Vasculature: Severe mixed plaque of the aortoiliac vessels. Bones: Thoracolumbar spondylosis. CT/Abdomen/Pelvis W IV Cont ONLY IMPRESSION: No acute abdominopelvic finding. Reading Location: [id number] CC: Dr. Bulmaro Curtis MD; Dr. Vicente Tee DO ~ Infantry Operations Specialist: Signed [facility] Imaging Services [address] [place] [address] [id number] CTA Chest W/WO Contrast MR#: [id number] Acct: [id number] Name: ROBERT RON Rep #: [id number] : 1950 M 73 From: Lan Iqbal MD PCP: Dr. Bulmaro Curtis MD Status: ADM IN Study: CTA Chest W/WO Contrast Date of Exam: 09/26/24 Exam# [id number] Ordering Dr: Lorenzo Hernandez DO PROCEDURE: CTA CHEST W/WO CONTRAST 09/26/2024 REASON FOR EXAM: SUSPECTED PE ON ABDOMINAL CT. TECHNIQUE: CTA CHEST W/WO CONTRAST Multiplanar Sagittal and Coronal images were obtained. CONTRAST: Isovue 370 VOLUME: 100 mL One or more dose reduction techniques were used (e.g., Automated exposure control, adjustment of the mA and/or kV according to patient size, use of iterative reconstruction technique). RADIATION DOSE SUMMARY: CTDlvol: 35 mGy DLP: 634 mGycm COMPARISON: Chest CT 07/25/[address] 09/25/2024 FINDINGS: Unremarkable base of neck and axilla. Normal esophagus. Normal heart size. No aortic dissection. There are bilateral central and segmental pulmonary emboli, fqslh-[id number]-euhl-left, overall mild clot burden. Negative right heart strain. Thoracic spine degeneration. Left-sided port. No acute chest wall findings. The G-tube balloon is outside the chest wall, series 2, image 11. Consider repositioning. No acute upper abdominal findings. Central airways are patent. Mild bronchial wall thickening. Mild emphysema. Bibasilar atelectasis. No consolidation, effusion, or pneumothorax. No acute upper abdominal findings. CT/CTA Chest W/WO Contrast IMPRESSION: Bilateral pulmonary emboli, mild clot burden. Negative right heart strain. Critical results discussed with CHANDLER Alfonso at 5:02 a.m. Reading Location: [place] [address] CC: Dr. Lorenzo Hernandez DO; Dr. Bulmaro Curtis MD ~ Infantry Operations Specialist: Signed Assessment & Plan Assessment/Plan (1) Sepsis: QUALIFIERS: Sepsis acute organ dysfunction status: unspecified S epsis type: sepsis due to unspecified organism Qualified Code(s): A41.9 - Sepsis, unspecified organism (2) Leukocytosis: QUALIFIERS: Leukocytosis type: bandemia Qualified Code(s): D 72.825 - Bandemia (3) Lactic acidosis: (4) Bilateral pulmonary embolism: (5) Orthostatic hypotension: (6) Fall: QUALIFIERS: Encounter type: initial encounter Qualified Code(s): W19.XXXA - Unspecified fall, initial encounter (7) Contusion of rib on left side: QUALIFIERS: Encounter type: initial encounter Qualified Code(s): S29.8XXA - Other specified injuries of thorax, initial encounter (8) Skin tear of left elbow without complication: QUALIFIERS: Encounter type: initial encounter Qualified Code(s): S51.012A - Laceration without foreign body of left elbow, initial encounter (9) Hyperbilirubinemia: (10) Primary squamous cell carcinoma of base of tongue: (11) Obesity (BMI 30.0-34.9): PLAN: Plan 1. Leukocytosis of 13.4 K with Left-shift of 3.4% in addition to Lactic Acidosis of 5 mmol/L with elevated anion gap of 18 all present on admission with Hypotension of 85/54 mmHg noted shortly after admission very concerning for Sepsis of unknown origin - Admit to ICU for treatment under the sepsis protocol. Stop empiric IV ceftriaxone begun in ER in favor of IV vancomycin and IV piperacillin-tazobactam with sepsis of unknown origin at this time and follow-up on culture and sensitivity data. UA C&S plus CT scan of abdomen and pelvis to identify source of infection were essentially unrevealing. Give ondansetron IV as needed for nausea or vomiting. Give acetaminophen as needed for [id number] (level 1-5/10) pain or fever. Give morphine IV as needed for severe (level 6-10/10) pain. 2. Bilateral Pulmonary Emboli on CTA of chest with apparent treatment failure of rivaroxaban and Orthostatic Hypotension in the ER with his blood pressure dropping to 69/51 mmHg after standing for 1 minute and then rising to 81/61 mmHg while sitting and 97/54 mmHg lying flat in the setting of recent fall in bathroom after defecating with residual Left chest wall contusion and pain complicating #1 - Start IV heparin and discontinue rivaroxaban. Check bilateral lower extremity Doppler to evaluate for residual clot burden. We we will volume resuscitate according to the sepsis protocol. We will hold his oral antihypertensive medications until further notice. We will give stress-dose Solu-Medrol in case of relative adrenal insufficiency given acute illness outlined in #1 given that he is currently on dexamethasone. Patient may need to be considered for midodrine if this problem persists in spite of aggressive treatment as outlined above. 3. Hyperbilirubinemia with a total bilirubin of 2.12 mg/dL present on admission (up from his baseline of 1.38 mg/dL on September 15, 2024) compounding #1 & #2 - CT scan of the abdomen pelvis negative for potential pathologic changes after recent trauma. Check daily CMP to follow trend. 4. History of squamous cell carcinoma; s/p chemotherapy and radiation which he finished ~2 weeks ago with PEG tube (07/02/2024) in place for everything but fluids which she takes by mouth along with subsequent Radiation-induced dermatitis of the Right neck adding with suspected Adverse Drug Reaction to oxycodone at least partially contributing to his weakness and fall adding to the medical complexity of #1 - #3 - Noted. Patient warned not to take 2 oxycodone at the same time in the future to avoid similar recurrences in the future 5. Obesity (class I); with BMI of 32 this admission plus WALE; on CPAP adding to the burden of disease outlined from #1 - #4 - Weight loss will be recommended. Check TSH. Resume nocturnal CPAP. This complicates his case and may hamper recovery. 6. History of saddle PE (2019); on rivaroxaban - Patient started on IV heparin with apparent treatment failure of rivaroxaban. 7. Essential hypertension; on valsartan and hydrochlorothiazide - Hold scheduled antihypertensives in light of #1. 8. Hyperlipidemia; on atorvastatin - Resume statin and check Lipid Profile. 9. Former tobacco abuse (quit 2019); with subsequent COPD on budesonide twice daily plus as needed albuterol - Stable with no evidence of acute flare at this time. Continue scheduled and as needed nebulizers and inhalers. 10. Depression; on citalopram - Current therapy continue as before. 11. Seasonal allergies; on cetirizine daily prn - Maintain cetirizine as previous. 12. Allergic rhinitis; on fluticasone NS daily prn - Continue prn fluticasone NS. 13. Remote history of fall with concussion - Noted with no signs of concussion at this time. 14. OA; on ibuprofen every 6 hours as needed and oxycodone 5 mg p.o. 3 times daily as needed - We will follow pain regimen and scales outlined in #1. 15. DVT/GI prophylaxis - Patient started on IV heparin for #2. Pantoprazole 40 mg IV daily. Total time: Approximately (but not less than) 75 minutes. Sepsis Attestation Sepsis Alert: Yes Sepsis Attestation: Agree w/Sepsis Date exam was performed: 09/25/24 Time exam was performed: 23:30 Possible Source of Sepsis: Other Sepsis Organ Dysfunction Criteria Present: SBP < 90 mmHg or MAP < 65 mmHg, SBP decrease of more than 40 mmHg and Lactic Acid > 2 mmol/L Supportive Findings: Leukocytosis of 13.4 K with Left-shift of 3.4% in addition to Lactic Acidosis of 5 mmol/L with elevated anion gap of 18 all present on admission with Hypotension of 85/54 mmHg noted shortly after admission very concerning for Sepsis of unknown origin in addition to Hyperbilirubinemia with a total bilirubin of 2.12 mg/dL present on admission (up from his baseline of 1.38 mg/dL on September 15, 2024) with UA and CT scan of abdomen and pelvis negative for acute pathologic changes but CTA of the chest with IV contrast revealing Bilateral Pulmonary Emboli; constituting treatment failure of rivaroxaban compounded by Orthostatic Hypotension with recent Fall. Fluid Resuscitation Fluid resuscitation indicated?: Yes Fluid Resuscitation ordered: 30 ml/kg fluid bolus ordered Amount of fluid ordered: 3 Sepsis Note Date exam was performed: 09/26/24 Time exam was performed: 03:35 Sepsis Attestation: Sepsis re-evaluation was performed Response to fluids: Fluid responsive hypotension Charges/Coding Visit Charges Inpatient E&M: 36448 Init Hosp L3
--- NOTE | 2024-09-25 22:42 | CT_ITS ---
PROCEDURE: ABDOMEN/PELVIS W IV CONT ONLY 09/25/2024 REASON FOR EXAM: LACTIC ACIDOSIS UNKNOWN ETIOLOGY TECHNIQUE: ABDOMEN/PELVIS W IV CONT ONLY Coronal and Sagittal reconstruction series were provided. CONTRAST: Isovue 370 VOLUME: 100 mL One or more dose reduction techniques were used (e.g., Automated exposure control, adjustment of the mA and/or kV according to patient size, use of iterative reconstruction technique. RADIATION DOSE SUMMARY: DLP: 1400 mGycm COMPARISON: None. FINDINGS: Lung bases: Tiny left lower lobe pulmonary nodule (series 8, image 10). Bibasilar atelectasis. Liver: The liver is normal in size with scattered hypodensities, too small to characterize but likely cysts. The major portal veins are patent. No biliary ductal dilation. Gallbladder: No radiopaque stones within the gallbladder. Spleen: Normal in size. Pancreas: Unremarkable. Adrenals: No adrenal mass. Kidneys: Mild right renal cortical scarring with right renal calculi. No hydronephrosis. Bilateral renal cysts. Bladder: Distended and unremarkable. Reproductive Organs: Unremarkable. Bowel: Gastrostomy tube in place. The bowel loops are nondilated. No ascites or pneumoperitoneum. Prior appendectomy. Mild distal colonic diverticulosis. Lymph nodes: No suspicious lymph node enlargement. Vasculature: Severe mixed plaque of the aortoiliac vessels. Bones: Thoracolumbar spondylosis. CT/Abdomen/Pelvis W IV Cont ONLY IMPRESSION: No acute abdominopelvic finding. Reading Location: [id number]
--- NOTE | 2024-09-25 22:47 | CT_ITS ---
PROCEDURE: SPINE CERVICAL WITHOUT CONTRAS 09/25/2024 REASON FOR EXAM: FALL TECHNIQUE: SPINE CERVICAL WITHOUT CONTRAS Coronal and Sagittal reconstruction series were provided. No One or more dose reduction techniques were used (e.g., Automated exposure control, adjustment of the mA and/or kV according to patient size, use of iterative reconstruction technique. RADIATION DOSE SUMMARY: CTDlvol: 120 mGy DLP: 2901 mGycm COMPARISON: No FINDINGS: Diffuse cervical spine degeneration. No acute fracture or dislocation. No soft tissue injury. Apical emphysema. No apical pneumothorax. CT/Spine Cervical without Contras IMPRESSION: No cervical spine injury noted Reading Location: [place] [address]
--- NOTE | 2024-09-25 22:47 | CT_ITS ---
EXAM: BRAIN/HEAD WITHOUT CONTRAST CLINICAL HISTORY: 73 y/o M with FALL. History of oral cancer. Currently on chemotherapy. COMPARISON: MRI brain 07/30/2023. TECHNIQUE: Routine CT imaging of the head without IV contrast. Additional multiplanar reformats were obtained. Dose reduction techniques were used including intermediate exposure control (AEC),iterative reconstruction technique, and/or mA and/or KV dose adjustments based on patient's size. FINDINGS: The ventricles, sulci and cisterns are mildly prominent, suggestive of brain parenchymal volume loss. There is no evidence of acute intracranial hemorrhage or herniation. There is no midline shift, mass effect, or extra-axial collection. Moderate patchy supratentorial white matter hypodensities. The teresa-white matter interfaces are otherwise maintained. Prior ocular lens replacements. The visualized paranasal sinuses and mastoids are unremarkable. No acute calvarial fracture or scalp hematoma. CT/Brain/Head without Contrast IMPRESSION: No acute intracranial finding. Reading Location: [id number]
--- OUTSIDE RECORDS SUMMARY | 2024-09-25 22:51 | XMS RPT_ITS | CCD ---
Author Organization [facility] [place] [facility] Care Team Providers Care Truck Jumper Name Role Phone Dr. Bulmaro Curtis Chi Primary Care Provider Ever, Dr. Bulmaro Goode Referring Provider DONTA Thompson Attending Provider Dr. Andry Juárez Attending Provider DONTA Thompson Referring Provider Dr. Leonel Carolina Attending Provider Ever, Dr. Bulmaro Goode Primary Care Provider Ever, Dr. Bulmaro Goode Referring Provider Dr. Leonel Carolina Attending Provider Eugene TRUSS DESIGNER, TRUSS DESIGNER-C Dianna Attending Provider Ever, Dr. Bulmaro Goode Primary Care Provider Ever, Dr. Bulmaro Goode Referring Provider Dr. Leonel Carolina Attending Provider Eugene TRUSS DESIGNER, TRUSS DESIGNER-C Dianna Attending Provider Ever, Dr. Bulmaro Goode [...] Referring Provider Lelo Dan Attending Provider Unavailable iX VÁSQUEZ, Dr. Cota Attending Provider Ochoa ALVARENGA, Dr. Gregory Referring Provider Ever ALVARENGA, Dr. Bulmaro Goode Referring Provider Beto ALVARENGA, Dr. Gamez Attending Provider Gonzalo ALVARENGA, Dr. Daniel Gonzales Attending Provider Beto ALVARENGA, Dr. Gamez Referring Provider Shade TRUSS DESIGNER-C, Ashly Attending Provider Gonzalo ALVARENGA, Dr. Daniel Gonzales Referring Provider Gonzalo ALVARENGA, Dr. Daniel Gonzales Other Provider Marquita ALVARENGA, Dr. Wilde Attending Provider Mario ALVARENAG, Dr. Sigala Referring Provider Humphrey CESPEDES, Elicia Attending Provider Elicia Yin PA-C Referring Provider Dr. Franco Pérez MD Referring Provider Dr. Cipriano Layne DO Referring Provider Beto ALVARENGA, Dr. Gamez Referring Provider Markiv ROAD PACKER OPERATOR-POND TENDER, Evie Unavailable Karin [facility] SPOOL[facility], Kristofer Flores Unavailable Jenniferva china Packer MD, Simon Unavailable Dr. Franco Pérez MD Referring Provider Beto ALVARENGA, Dr. Gamez Referring Provider Beto ALVARENGA, Dr. Gamez Referring Provider Ever ALVARENGA, Dr. Bulmaro Chi Primary Care Provider [phone] Dr. Franco Pérez MD Referring Provider Elicia Yin PA-C Attending Provider Elicia Yin PA-C Referring Provider Dr. Franco Pérez MD Referring Provider [phone] Dr. Franco Pérez MD Referring Provider [phone] PROVIDER, UNKNOWN Attending Unavailable PROVIDER, UNKNOWN Admitting [...] e Dr. Franco Pérez MD Referring Provider [phone] Xi, Cipriano Referring Unavailable Xi, Cipriano Attending [...] Referring Unavailable Ever, Bulmaro Chi Referring Unavailable Franco [...] Ever, Bulmaro Chi Primary Care Unavailable Ever, Blumaro Chi Referring Unavailable Ever, Bulmaro Chi Primary [...] [Sulfa (Sulfonamide Antibiotics)] Allergy to substance 2 [facility] (10 sources) Sulfonamides (Antibiotic); Translations: [SULFA ANTIBIOTICS] Propensity to adverse reactions to drug 0 [facility] Medications Current Medications Medication Drug Class(es) Dates [...] to 3 days. 12 Tablet 06/11/2024 06/14/2024 [id number] 200 actuat albuterol 0.09 mg/actuat metered dose [...] 31, 2023 11:07am Start: 09-12-2022 End: 07-31-2023 Tdxklgmzoc-Ytryuffo-Mhfntuty ol (Breztri Aerosphere) 160-9-4.8 mcg/actuation HFA aerosol inhaler Discontinued 2 NMA INHALATION TWICE A DAY 10.7 September 12, 2022 12:00am July 31, 2023 11:07am Start: 09-12-2022 End: 07-31-2023 Dqlfftiaoq-Ksyrfbsr-Mpunmauq ol (Breztri Aerosphere) 160-9-4.8 mcg/actuation HFA aerosol [...] 17, 2020 8:35am Start: 08-17-2020 End: 11-30-2021 Odnfcagwovh-Basgmdgww-Bxdoae er (Trelegy Ellipta) 100-62.5-25 mcg blister with device Discontinued 1 NMA INHALATION DAILY August 17, 2020 12:00am November 30, 2021 10:08am Start: 08-17-2020 End: 11-30-2021 Lbsksdfqtbp-Ocufdcnmd-Iyscvg er (Trelegy Ellipta) 100-62.5-25 mcg blister with device Discontinued 1 INH INHALATION DAILY August 17, 2020 12:00am November 30, 2021 10:08am Start: 08-17-2020 End: 11-30-2021 Ecoqkhrqvya-Rfypeyjqo-Izutvj er (Trelegy Ellipta) 100-62.5-25 mcg blister with [...] 2.5 ug by inhalation once daily Tiotropium [place] (Spiriva Respimat) 2.5 mcg/actuation mist Active 2 [...] use Start: 11-30-2021 take 1 puff(s) by [facility] twice daily Budesonide-Formoterol (Symbicort) 160-4.5 mcg/actuation HFA aerosol inhaler Active 2 PUFF INHALATION TWICE A DAY November 30, 2021 12:00am administer with spacer, rinse mouth after each use Start: 11-30-2021 take 1 puff(s) by [facility] twice daily Budesonide-Formoterol (Symbicort) 160-4.5 mcg/actuation HFA [...] Facility Absolute lymphocyte countOrd ered By: Franco Préez on 09-15-2024 Lymphocytes Auto (Unsp spec) [#/Vol] 0.36 10*3/uL Low 0.83-4.51 [facility] Absolute neutrophil countOrd ered By: Franco Pérez on 09-15-2024 Neutrophils (Bld) [#/Vol] 6.4 10*3/uL 2.0-7.7 [facility] Anion gap in Serum or Plasma Ordered By: Franco Pérez on 09-15-2024 Anion gap [Moles/Vol] 16 mmol/L [facility] 5-[facility] a s percentage of total leukocytesOrdered By: Franco Anderson on 09-15-2024 Lymphocytes/100 WBC Auto (Unsp spec) 4.3 % Low 19-41 [facility] BUN/creatinine ratioOrdered By: Franco Anderson on 09-15-2024 Urea nitrogen/Creatinine [Mass ratio] 26.6 mg/mg High 10-20 [facility] Basophil percentageOrdered B y: Franco Pérez on 09-15-2024 Basophils/100 WBC (Bld) 0.8 % 0-1 [facility] Bilirubin, totalOrdered By: Franco [facility] on 09-15-2024 Bilirubin [Mass/Vol] 1.38 mg/dL High 0.00-1.30 [facility] CBC W/Diff, Automatedon 08-24 Absolute Lymph 0.36 X10 3/uL Low 0.83-4.51 [facility] Comment on above: Performed By: #### L 504.2610, L506.0400, L501.9520, L501.2300, L501.5200, L100.0100, L500.4050 ####[facility] [address] [place], [address] Absolute Neut 6.4 X10 3/uL Normal 2.0-7.7 [facility] Comment on above: Performed By: #### L 504.2610, L506.0400, L501.9520, L501.2300, L501.5200, L100.0100, L500.4050 ####[facility] [address] [place], [address] Basophils/100 WBC (Bld) 0.8 % Normal 0-1 [facility] Comment on above: Performed By: #### L 504.2610, L506.0400, L501.9520, L501.2300, L501.5200, L100.0100, L500.4050 ####[facility] [address] [place], [address] Eosinophils/100 WBC (Bld) 1.6 % Normal 0-5 [facility] Comment on above: Performed By: #### L 504.2610, L506.0400, L501.9520, L501.2300, L501.5200, L100.0100, L500.4050 ####[facility] [address] [place], [address] Erythrocyte distribution width (RBC) [Ratio] 17.9 % High 11.6-14.6 [facility] Comment on above: Performed By: #### L 504.2610, L506.0400, L501.9520, L501.2300, L501.5200, L100.0100, L500.4050 ####[facility] [address] [place], [address] Hematocrit (Bld) [Volume fraction] 38.3 % Low 40-54 [facility] Comment on above: Performed By: #### L 504.2610, L506.0400, L501.9520, L501.2300, L501.5200, L100.0100, L500.4050 ####[facility] [address] [place], [address] Hemoglobin (Bld) [Mass/Vol] 12.6 g/dL Low 13.0-16.5 [facility] Comment on above: Performed By: #### L 504.2610, L506.0400, L501.9520, L501.2300, L501.5200, L100.0100, L500.4050 ####[facility] [address] [place], [address] IG% 2.200 High 0.0-0.9 [facility] Comment on above: Result Comment: IG% - Immature Granulocytes (promyelocytes, myelocytes andmetamyelocytes) > 1% indicates that a LEFT SHIFT is Present. Performed By: #### L 504.2610, L506.0400, L501.9520, L501.2300, L501.5200, L100.0100, L500.4050 ####[facility] [address] [place], [address] Lymphocytes/100 WBC (Bld) 4.3 % Low 19-41 [facility] Comment on above: Performed By: #### L 504.2610, L506.0400, L501.9520, L501.2300, L501.5200, L100.0100, L500.4050 ####[facility] [address] [place], [address] MCH (RBC) [Entitic mass] 30.5 pg Normal 27.0-32.0 [facility] Comment on above: Performed By: #### L 504.2610, L506.0400, L501.9520, L501.2300, L501.5200, L100.0100, L500.4050 ####[facility] [address] [place], [address] MCHC (RBC) [Mass/Vol] 32.9 g/dL Normal 32-36 [facility] Comment on above: Performed By: #### L 504.2610, L506.0400, L501.9520, L501.2300, L501.5200, L100.0100, L500.4050 ####[facility] [address] [place], [address] MCV (RBC) [Entitic vol] 92.7 fL Normal 80-94 [facility] Comment on above: Performed By: #### L 504.2610, L506.0400, L501.9520, L501.2300, L501.5200, L100.0100, L500.4050 ####[facility] [address] [place], [address] Monocytes/100 WBC (Bld) 14.9 % High 0-10 [facility] Comment on above: Performed By: #### L 504.2610, L506.0400, L501.9520, L501.2300, L501.5200, L100.0100, L500.4050 ####[facility] [address] [place], [address] Neutrophils/100 WBC (Bld) 76.2 % High 47-70 [facility] Comment on above: Performed By: #### L 504.2610, L506.0400, L501.9520, L501.2300, L501.5200, L100.0100, L500.4050 ####[facility] [address] [place], [address] Nucleated RBC (Bld) [#/Vol] 0 10*3/uL Normal 0-5 [facility] Comment on above: Performed By: #### L 504.2610, L506.0400, L501.9520, L501.2300, L501.5200, L100.0100, L500.4050 ####[facility] [address] [place], [address] Platelet mean volume (Bld) [Entitic vol] 10.6 fL Normal 6.2-12.0 [facility] Comment on above: Performed By: #### L 504.2610, L506.0400, L501.9520, L501.2300, L501.5200, L100.0100, L500.4050 ####[facility] [address] [place], [address] Platelets (Bld) [#/Vol] 87 10*3/uL Low 150-450 [facility] Comment on above: Performed By: #### L 504.2610, L506.0400, L501.9520, L501.2300, L501.5200, L100.0100, L500.4050 ####[facility] [address] [place], [address] RBC (Bld) [#/Vol] 4.13 10*6/uL Low 4.6-6.2 [facility] Comment on above: Performed By: #### L 504.2610, L506.0400, L501.9520, L501.2300, L501.5200, L100.0100, L500.4050 ####[facility] [address] [place], [place], [phone] RDW SD 60.4 fl High 35.1-43.9 [facility] Comment on above: Performed By: #### L 504.2610, L506.0400, L501.9520, L501.2300, L501.5200, L100.0100, L500.4050 ####[facility] [address] [place], [place], [phone] WBC (Bld) [#/Vol] 8.4 10*3/uL Normal 4.4-11.0 [facility] Comment on above: Performed By: #### L 504.2610, L506.0400, L501.9520, L501.2300, L501.5200, L100.0100, L500.4050 ####[facility] [address] [place], [place], [id number] Carbon dioxide, total [Moles /volume] in Central venous bloodOrdered By: Franco Pérez on 09-15-2024 CO2 [Moles/Vol] 23.5 mmol/L 21.0-32.0 [facility] Chloride assayOrdered By: Kala Pérez on 09-15-2024 Chloride [Moles/Vol] 96 mmol/L Low 98-108 [facility] Comprehensive Metabolic Prof ilon 09-15-2024 Albumin [Mass/Vol] 3.5 g/dL Normal 3.4-4.8 [facility] Comment on above: Performed By: #### L 504.2610, L506.0400, L501.9520, L501.2300, L501.5200, L100.0100, L500.4050 ####[facility] [address] [place], [address] Albumin/Globulin [Mass ratio] 1.2 {ratio} Normal 0.9-2.4 [facility] Comment on above: Performed By: #### L 504.2610, L506.0400, L501.9520, L501.2300, L501.5200, L100.0100, L500.4050 ####[facility] [address] [place], [address] ALK PHOS 113 U/L Normal 40-129 [facility] Comment on above: Performed By: #### L 504.2610, L506.0400, L501.9520, L501.2300, L501.5200, L100.0100, L500.4050 ####[facility] [address] [place], [address] ALT [Catalytic activity/Vol] 13 U/L Normal <=46 [facility] Comment on above: Performed By: #### L 504.2610, L506.0400, L501.9520, L501.2300, L501.5200, L100.0100, L500.4050 ####[facility] [address] [place], [address] AST [Catalytic activity/Vol] 19 U/L Normal <=37 [facility] Comment on above: Performed By: #### L 504.2610, L506.0400, L501.9520, L501.2300, L501.5200, L100.0100, L500.4050 ####[facility] [address] [place], [address] Bilirubin [Mass/Vol] 1.38 mg/dL High 0.00-1.30 [facility] Comment on above: Performed By: #### L 504.2610, L506.0400, L501.9520, L501.2300, L501.5200, L100.0100, L500.4050 ####[facility] [address] [place], [address] BUN/CRE 26.6 RATIO High 10-20 [facility] Comment on above: Performed By: #### L 504.2610, L506.0400, L501.9520, L501.2300, L501.5200, L100.0100, L500.4050 ####[facility] [address] [place], [address] Calcium [Mass/Vol] 9.4 mg/dL Normal 7.6-11.0 [facility] Comment on above: Performed By: #### L 504.2610, L506.0400, L501.9520, L501.2300, L501.5200, L100.0100, L500.4050 ####[facility] [address] [place], [address] Chloride [Moles/Vol] 96 mmol/L Low 98-108 [facility] Comment on above: Performed By: #### L 504.2610, L506.0400, L501.9520, L501.2300, L501.5200, L100.0100, L500.4050 ####[facility] [address] [place], [address] CO2 [Moles/Vol] 23.5 mmol/L Normal 21.0-32.0 [facility] Comment on above: Performed By: #### L 504.2610, L506.0400, L501.9520, L501.2300, L501.5200, L100.0100, L500.4050 ####[facility] [address] [place], [address] Creatinine [Mass/Vol] 1.16 mg/dL Normal 0.70-1.20 [facility] Comment on above: Performed By: #### L 504.2610, L506.0400, L501.9520, L501.2300, L501.5200, L100.0100, L500.4050 ####[facility] [address] [place], [address] ECRCL 77.16 ml/min Normal 50-250 [facility] Comment on above: Performed By: #### L 504.2610, L506.0400, L501.9520, L501.2300, L501.5200, L100.0100, L500.4050 ####[facility] [address] [place], [address] GAP 16 High 5-15 [facility] Comment on above: Performed By: #### L 504.2610, L506.0400, L501.9520, L501.2300, L501.5200, L100.0100, L500.4050 ####[facility] [address] [place], [place], [phone] GFR/1.73 sq M.predicted among non-blacks MDRD (S/P/Bld) [Vol rate/Area] 67 mL/min/{1.73_m2} Normal >60 [facility] Comment on above: Result Comment: mL/m in/1.73m2 CKD-EPI Creatinine Equation (2020) Performed By: #### L 504.2610, L506.0400, L501.9520, L501.2300, L501.5200, L100.0100, L500.4050 ####[facility] [address] [place], [place], [phone] Globulin (S) [Mass/Vol] 2.9 g/dL Normal 2.2-4.2 [facility] Comment on above: Performed By: #### L 504.2610, L506.0400, L501.9520, L501.2300, L501.5200, L100.0100, L500.4050 ####[facility] [address] [place], [address] Glucose [Mass/Vol] 160 mg/dL High 70-99 [facility] Comment on above: Performed By: #### L 504.2610, L506.0400, L501.9520, L501.2300, L501.5200, L100.0100, L500.4050 ####[facility] [address] [place], [address] Potassium [Moles/Vol] 3.3 mmol/L Normal 3.3-5.1 [facility] Comment on above: Performed By: #### L 504.2610, L506.0400, L501.9520, L501.2300, L501.5200, L100.0100, L500.4050 ####[facility] [address] [place], [address] Sodium [Moles/Vol] 135 mmol/L Normal 133-145 [facility] Comment on above: Performed By: #### L 504.2610, L506.0400, L501.9520, L501.2300, L501.5200, L100.0100, L500.4050 ####[facility] [address] [place], [address] T PROT 6.4 g/dL Normal 5.9-8.4 [facility] Comment on above: Performed By: #### L 504.2610, L506.0400, L501.9520, L501.2300, L501.5200, L100.0100, L500.4050 ####[facility] [address] [place], [address] Urea nitrogen [Mass/Vol] 31 mg/dL High 4-19 [facility] Comment on above: Performed By: #### L 504.2610, L506.0400, L501.9520, L501.2300, L501.5200, L100.0100, L500.4050 ####[facility] [address] [place], [address] Eosinophil percentageOrdered By: Franco Pérez on 09-15-2024 Eosinophils/100 WBC (Bld) 1.6 % 0-5 [facility] Erythrocyte distribution wid th ratioOrdered By: Franco Pérez on 09-15-2024 Erythrocyte distribution width (RBC) [Ratio] 17.9 % High 11.6-14.6 [facility] Erythrocyte distribution wid th standard deviationOrdered By: [facility] on 09-[facility]-2024 Erythrocyte distribution width (RBC) [Ratio] 60.4 fl High 35.1-43.9 [facility] Glomerular filtration rate ( GFR) estimation/1.73 sq m using serum, plasma, or whole bOrdered By: [facility] on 09-15-2024 GFR/1.73 sq M.predicted among non-blacks MDRD (S/P/Bld) [Vol rate/Area] 67 mL/min/{1.73_m2} >60 [facility] Comment on above: mL/min/1.73m2 CKD-EP I Creatinine Equation (2020) Hematocrit Auto (Bld) [Volum e fraction]Ordered By: Franco Pérez on 09-15-2024 Hematocrit (Bld) [Volume fraction] 38.3 % Low 40-54 [facility] Hemoglobin measurementOrdere d By: Franco Pérez on 09-15-2024 Hemoglobin (Bld) [Mass/Vol] 12.6 g/dL Low 13.0-16.5 [facility] Immature granulocytes/100 WB C Auto (Bld)Ordered By: Franco Pérez on 09-15-2024 Immature granulocytes/100 WBC (Bld) 2.200 % High 0.0-0.9 [facility] Comment on above: IG% - Immature Granu locytes (promyelocytes, myelocytes and metamyelocytes) > 1% indicates that a LEFT SHIFT is Present. LDHon 09-15-2024 LDH 238 U/L Normal 87-241 [facility] Comment on above: Order Comment: 1 Performed By: #### L 504.2610, L506.0400, L501.9520, L501.2300, L501.5200, L100.0100, L500.4050 ####[facility] [address] [place], [place], [phone] Laboratory - Chemistry and C hemistry - challengeOrdered By: Franco Pérez on 09-15-2024 AST [Catalytic activity/Vol] 19 U/L <38 [facility] Lactate dehydrogenase (LDH) measurementOrdered By: Franco Pérez on 09-15-2024 LDH [Catalytic activity/Vol] 238 U/L 87-241 [facility] MCV (mean corpuscular volume ) determinationOrdered By: Franco Pérez on 09-15-2024 MCV (RBC) [Entitic vol] 92.7 fL 80-94 [facility] Magnesiumon 09-15-2024 Magnesium [Mass/Vol] 1.8 mg/dL Normal 1.5-2.2 [facility] Comment on above: Performed By: #### L 504.2610, L506.0400, L501.9520, L501.2300, L501.5200, L100.0100, L500.4050 ####[facility] [address] [place], [place], [address] Magnesium measurement (mass/ volume)Ordered By: Franco Pérez on 09-15-2024 Magnesium (Unsp spec) [Mass/Vol] 1.8 mg/dL 1.5-2.2 [facility] Mean corpuscular hemoglobin (MCH) determinationOrdered By: Franco Pérez on 09-15-2024 MCH (RBC) [Entitic mass] 30.5 pg 27.0-32.0 [facility] Mean corpuscular hemoglobin concentration (MCHC) determinationOrdered By: Franco Pérez on 09-15-2024 MCHC (RBC) [Mass/Vol] 32.9 g/dL 32-36 [facility] Mean platelet volume determi nationOrdered By: Franco Pérez on 09-15-2024 Platelet mean volume (Bld) [Entitic vol] 10.6 fL 6.2-12.0 [facility] Monocyte percentageOrdered B y: Franco Pérez on 09-15-2024 Monocytes/100 WBC (Bld) 14.9 % High 0-10 [facility] Neutrophil percentageOrdered By: Franco Pérez on 09-15-2024 Neutrophils/100 WBC (Bld) 76.2 % High 47-70 [facility] Nucleated red blood cell per centageOrdered By: Franco Pérez on 09-15-2024 Nucleated RBC/100 WBC (Bld) [Ratio] 0 % 0-5 [facility] Oncology Visit Reporton 08-24 Oncology Visit Report Normal [facility] Phosphoruson 09-15-2024 Phosphate [Mass/Vol] 2.7 mg/dL Normal 2.7-4.5 [facility] Comment on above: Performed By: #### L 504.2610, L506.0400, L501.9520, L501.2300, L501.5200, L100.0100, L500.4050 ####[facility] [address] [place], [address] Platelet countOrdered By: Kala Pérez on 09-15-2024 Platelets (Bld) [#/Vol] 87 10*3/uL Low 150-450 [facility] Potassium measurement (mass/ volume)Ordered By: Franco Pérez on 09-15-2024 Potassium (Unsp spec) [Mass/Vol] 3.3 mmol/L 3.3-5.1 [facility] RBC Auto (Bld) [#/Vol]Ordere d By: Franco Pérez on 09-15-2024 RBC (Bld) [#/Vol] 4.13 10*6/uL Low 4.6-6.2 [facility] Radiation Oncology Visiton 0 09-15-2024 Radiation Oncology Visit Normal [facility] Serum creatinine measurement (mass/volume)Ordered By: Franco Pérez on 09-15-2024 Creatinine [Mass/Vol] 1.16 mg/dL 0.70-1.20 [facility] Serum globulin measurementOr dered By: Franco Pérez on 09-15-2024 Globulin (S) [Mass/Vol] 2.9 g/dL 2.2-4.2 [facility] Serum glucose measurement (m ass/volume)Ordered By: Franco Pérez on 09-15-2024 Glucose [Mass/Vol] 160 mg/dL High 70-99 [facility] Serum or plasma alanine cabral otransferase (ALT) measurementOrdered By: Franco Pérez on 09-15-2024 ALT [Catalytic activity/Vol] 13 U/L <47 [facility] Serum or plasma albumin blaine urement (mass/volume)Ordered By: Franco Pérez on 09-15-2024 Albumin [Mass/Vol] 3.5 g/dL 3.4-4.8 [facility] Serum or plasma albumin/glob ulin mass ratioOrdered By: Franco Pérez on 09-15-2024 Albumin/Globulin [Mass ratio] 1.2 {ratio} 0.9-2.4 [facility] Serum or plasma alkaline zee sphatase measurementOrdered By: Franco Pérez on 09-15-2024 ALP [Catalytic activity/Vol] 113 U/L 40-129 [facility] Serum or plasma calcium blaine urement (mass/volume)Ordered By: Franco Pérez on 09-15-2024 Calcium [Mass/Vol] 9.4 mg/dL 7.6-11.0 [facility] Serum or plasma urea nitroge n measurement (mass/volume)Ordered By: Franco Pérez on 09-15-2024 Urea nitrogen [Mass/Vol] 31 mg/dL High 4-19 [facility] Sodium levelOrdered By: Jonathon Pérez on 09-15-2024 Sodium [Moles/Vol] 135 mmol/L 133-145 [facility] T4 Free Directon 09-15-2024 T4 FREE DIRECT 1.30 ng/dL Normal 0.76-1.46 [facility] Comment on above: Performed By: #### L 504.2610, L506.0400, L501.9520, L501.2300, L501.5200, L100.0100, L500.4050 ####[facility] [id number] [place], [address] T4 freeOrdered By: Franco hernandez on 09-15-2024 Free T4 [Mass/Vol] 1.30 ng/dL 0.76-1.46 [facility] TSH DL <= 0.005 mIU/L QnOrde red By: Franco Pérez on 09-15-2024 TSH Qn 0.992 uIU/mL 0.300-4.20 0 [facility] Thyroid Stim Hormone (TSH)on 09-15-2024 TSH 0.992 uIU/mL Normal 0.300-4.20 0 [facility] Comment on above: Performed By: #### L [id number], L506.0400, L501.9520, L501.2300, L501.5200, L100.0100, L500.4050 ####[facility] [id number] [place], [place], [address] Total proteinOrdered By: Faheem Pérez on 09-15-2024 Protein [Mass/Vol] 6.4 g/dL 5.9-8.4 [facility] White blood cell (WBC) count Ordered By: Franco Pérez on 09-15-2024 WBC (Bld) [#/Vol] 8.4 10*3/uL 4.4-11.0 [facility] Radiation Oncology Visiton 0 - Radiation Oncology Visit Normal [facility] Radiation Oncology Visiton 0 08-19-2024 Radiation Oncology Visit Normal [facility] Absolute lymphocyte countOrd ered By: Franco Pérez on 08-18-2024 Lymphocytes Auto (Unsp spec) [#/Vol] 0.11 10*3/uL Low 0.83-4.51 [facility] Absolute neutrophil countOrd ered By: Franco Pérez on 08-18-2024 Neutrophils (Bld) [#/Vol] 1.7 10*3/uL Low 2.0-7.7 [facility] Anion gap in Serum or Plasma Ordered By: Franco Pérez on 08-18-2024 Anion gap [Moles/Vol] 12 mmol/L 5-15 [facility] Automated lymphocyte count a s percentage of total leukocytesOrdered By: Franco Pérez on 08-18-2024 Lymphocytes/100 WBC Auto (Unsp spec) 4.8 % Low 19-41 [facility] BUN/creatinine ratioOrdered By: Franco Pérez on 08-18-2024 Urea nitrogen/Creatinine [Mass ratio] 20.9 mg/mg High 10-20 [facility] Basophil percentageOrdered B y: Franco Pérez on 08-18-2024 Basophils/100 WBC (Bld) 0.4 % 0-1 [facility] Bilirubin, totalOrdered By: Franco Pérez on 08-18-2024 Bilirubin [Mass/Vol] 1.38 mg/dL High 0.00-1.30 [facility] Blood polychromasia detectio n by light microscopyOrdered By: Franco Pérez on 08-18-2024 Polychromasia LM Ql (Bld) 1+ [facility] CBC W/Diff, Automatedon 07-24 PLT EST SLT DEC Normal ADEQ [facility] Comment on above: Performed By: #### L 500.4050, L100.0100, L501.5200, L501.2300 ####[facility] [address] [place], [address] POLYCHROMASIA 1+ Normal [facility] Comment on above: Performed By: #### L 500.4050, L100.0100, L501.5200, L501.2300 ####[facility] [address] [place], [address] RED CELL MORPH NORM C+C Normal NORM C C [facility] Comment on above: Performed By: #### L 500.4050, L100.0100, L501.5200, L501.2300 ####[facility] [address] [place], [address] Carbon dioxide, total [Moles /volume] in Central venous bloodOrdered By: Franco Pérez on 08-18-2024 CO2 [Moles/Vol] 24.3 mmol/L 21.0-32.0 [facility] Chloride assayOrdered By: Kala Pérez on 08-18-2024 Chloride [Moles/Vol] 102 mmol/L 98-108 [facility] Comprehensive Metabolic Prof ilon 08-18-2024 Albumin [Mass/Vol] 3.7 g/dL Normal 3.4-4.8 [facility] Comment on above: Performed By: #### L 500.4050, L100.0100, L501.5200, L501.2300 ####[facility] [address] [place], [address] Albumin/Globulin [Mass ratio] 1.2 {ratio} Normal 0.9-2.4 [facility] Comment on above: Performed By: #### L 500.4050, L100.0100, L501.5200, L501.2300 ####[facility] [address] [place], [address] ALK PHOS 104 U/L Normal 40-129 [facility] Comment on above: Performed By: #### L 500.4050, L100.0100, L501.5200, L501.2300 ####[facility] [address] [place], [address] ALT [Catalytic activity/Vol] 24 U/L Normal <=46 [facility] Comment on above: Performed By: #### L 500.4050, L100.0100, L501.5200, L501.2300 ####[facility] [address] [place], [address] AST [Catalytic activity/Vol] 20 U/L Normal <=37 [facility] Comment on above: Performed By: #### L 500.4050, L100.0100, L501.5200, L501.2300 ####[facility] [address] [place], [address] Bilirubin [Mass/Vol] 1.38 mg/dL High 0.00-1.30 [facility] Comment on above: Performed By: #### L 500.4050, L100.0100, L501.5200, L501.2300 ####[facility] [address] [place], [address] BUN/CRE 20.9 RATIO High 10-20 [facility] Comment on above: Performed By: #### L 500.4050, L100.0100, L501.5200, L501.2300 ####[facility] [address] [place], [address] Calcium [Mass/Vol] 9.4 mg/dL Normal 7.6-11.0 [facility] Comment on above: Performed By: #### L 500.4050, L100.0100, L501.5200, L501.2300 ####[facility] [address] [place], [address] Chloride [Moles/Vol] 102 mmol/L Normal 98-108 [facility] Comment on above: Performed By: #### L 500.4050, L100.0100, L501.5200, L501.2300 ####[facility] [address] [place], [address] CO2 [Moles/Vol] 24.3 mmol/L Normal 21.0-32.0 [facility] Comment on above: Performed By: #### L 500.4050, L100.0100, L501.5200, L501.2300 ####[facility] [address] [place], [address] Creatinine [Mass/Vol] 0.93 mg/dL Normal 0.70-1.20 [facility] Comment on above: Performed By: #### L 500.4050, L100.0100, L501.5200, L501.2300 ####[facility] [address] [place], [address] ECRCL 100.62 ml/min Normal 50-250 [facility] Comment on above: Performed By: #### L 500.4050, L100.0100, L501.5200, L501.2300 ####[facility] [address] [place], [address] GAP 12 Normal 5-15 [facility] Comment on above: Performed By: #### L 500.4050, L100.0100, L501.5200, L501.2300 ####[facility] [address] [place], [address] GFR/1.73 sq M.predicted among non-blacks MDRD (S/P/Bld) [Vol rate/Area] 87 mL/min/{1.73_m2} Normal >60 [facility] Comment on above: Result Comment: mL/m in/1.73m2 CKD-EPI Creatinine Equation (2020) Performed By: #### L 500.4050, L100.0100, L501.5200, L501.2300 ####[facility] [address] [place], [address] Globulin (S) [Mass/Vol] 3.0 g/dL Normal 2.2-4.2 [facility] Comment on above: Performed By: #### L 500.4050, L100.0100, L501.5200, L501.2300 ####[facility] [address] [place], [address] Glucose [Mass/Vol] 195 mg/dL High 70-99 [facility] Comment on above: Performed By: #### L 500.4050, L100.0100, L501.5200, L501.2300 ####[facility] [address] [place], [address] Potassium [Moles/Vol] 4.5 mmol/L Normal 3.3-5.1 [facility] Comment on above: Performed By: #### L 500.4050, L100.0100, L501.5200, L501.2300 ####[facility] [address] [place], [address] Sodium [Moles/Vol] 138 mmol/L Normal 133-145 [facility] Comment on above: Performed By: #### L 500.4050, L100.0100, L501.5200, L501.2300 ####[facility] [address] [place], [address] T PROT 6.7 g/dL Normal 5.9-8.4 [facility] Comment on above: Performed By: #### L 500.4050, L100.0100, L501.5200, L501.2300 ####[facility] [address] [place], [address] Urea nitrogen [Mass/Vol] 20 mg/dL High 4-19 [facility] Comment on above: Performed By: #### L 500.4050, L100.0100, L501.5200, L501.2300 ####[facility] [address] [place], [address] Eosinophil percentageOrdered By: Franco Pérez on 08-18-2024 Eosinophils/100 WBC (Bld) 0.4 % 0-5 [facility] Erythrocyte distribution wid th ratioOrdered By: Franco Préez on 08-18-2024 Erythrocyte distribution width (RBC) [Ratio] 15.9 % High 11.6-14.6 [facility] Erythrocyte distribution wid th standard deviationOrdered By: Franco Pérez on 08-18-2024 Erythrocyte distribution width (RBC) [Ratio] 49.9 fl High 35.1-43.9 [facility] Erythrocyte morphology asses smentOrdered By: Franco Pérez on 08-18-2024 RBC morphology finding Nom (Bld) NORM C+C NORMAL NORM C&C [facility] Glomerular filtration rate ( GFR) estimation/1.73 sq m using serum, plasma, or whole bOrdered By: Franco Pérez on 08-18-2024 GFR/1.73 sq M.predicted among non-blacks MDRD (S/P/Bld) [Vol rate/Area] 87 mL/min/{1.73_m2} >60 [facility] Comment on above: mL/min/1.73m2 CKD-EP I Creatinine Equation (2020) Hematocrit Auto (Bld) [Volum e fraction]Ordered By: Franco Pérez on 08-18-2024 Hematocrit (Bld) [Volume fraction] 36.2 % Low 40-54 [facility] Hemoglobin measurementOrdere d By: Franco Pérez on 08-18-2024 Hemoglobin (Bld) [Mass/Vol] 12.0 g/dL Low 13.0-16.5 [facility] Immature granulocytes/100 WB C Auto (Bld)Ordered By: Franco Pérez on 08-18-2024 Immature granulocytes/100 WBC (Bld) 1.300 % High 0.0-0.9 [facility] Comment on above: IG% - Immature Granu locytes (promyelocytes, myelocytes and metamyelocytes) > 1% indicates that a LEFT SHIFT is Present. Laboratory - Chemistry and C hemistry - challengeOrdered By: Franco Pérez on 08-18-2024 AST [Catalytic activity/Vol] 20 U/L <38 [facility] MCV (mean corpuscular volume ) determinationOrdered By: Franco Beto on 08-18-2024 MCV (RBC) [Entitic vol] 92.1 fL 80-94 [facility] Magnesiumon 08-18-2024 Magnesium [Mass/Vol] 2.0 mg/dL Normal 1.5-2.2 [facility] Comment on above: Performed By: #### L 500.4050, L100.0100, L501.5200, L501.2300 ####[facility] [address] [place], [address] Magnesium measurement (mass/ volume)Ordered By: Franco [facility] on 08-18-2024 Magnesium (Unsp spec) [Mass/Vol] 2.0 mg/dL 1.5-2.2 [facility] Mean corpuscular hemoglobin (MCH) determinationOrdered By: Franco Pérez on 08-18-2024 MCH (RBC) [Entitic mass] 30.5 pg 27.0-32.0 [facility] Mean corpuscular hemoglobin concentration (MCHC) determinationOrdered By: Franco Pérez on 08-18-2024 MCHC (RBC) [Mass/Vol] 33.1 g/dL 32-36 [facility] Mean platelet volume determi nationOrdered By: Franco Pérez on 08-18-2024 Platelet mean volume (Bld) [Entitic vol] 10.0 fL 6.2-12.0 [facility] Monocyte percentageOrdered B y: Franco Pérez on 08-18-2024 Monocytes/100 WBC (Bld) 17.5 % High 0-10 [facility] Neutrophil percentageOrdered By: Franco Pérez on 08-18-2024 Neutrophils/100 WBC (Bld) 75.6 % High 47-70 [facility] Nucleated red blood cell per centageOrdered By: Franco Pérez on 08-18-2024 Nucleated RBC/100 WBC (Bld) [Ratio] 0 % 0-5 [facility] Oncology Visit Reporton 07-24 Oncology Visit Report Normal [facility] Phosphoruson 08-18-2024 Phosphate [Mass/Vol] 2.9 mg/dL Normal 2.7-4.5 [facility] Comment on above: Performed By: #### L 500.4050, L100.0100, L501.5200, L501.2300 ####[facility] [address] [place], [place], [id number] Platelet countOrdered By: Kala Pérez on 08-18-2024 Platelets (Bld) [#/Vol] 108 10*3/uL Low 150-450 [facility] Platelet estimateOrdered By: Franco Pérez on 08-18-2024 Platelets LM Ql (Bld) SLT DEC ADEQ [facility] Potassium measurement (mass/ volume)Ordered By: Franco Pérez on 08-18-2024 Potassium (Unsp spec) [Mass/Vol] 4.5 mmol/L 3.3-5.1 [facility] RBC Auto (Bld) [#/Vol]Ordere d By: Franco Pérez on 08-18-2024 RBC (Bld) [#/Vol] 3.93 10*6/uL Low 4.6-6.2 [facility] Serum creatinine measurement (mass/volume)Ordered By: Franco Pérez on 08-18-2024 Creatinine [Mass/Vol] 0.93 mg/dL 0.70-1.20 [facility] Serum globulin measurementOr dered By: Franco Pérez on 08-18-2024 Globulin (S) [Mass/Vol] 3.0 g/dL 2.2-4.2 [facility] Serum glucose measurement (m ass/volume)Ordered By: Franco Pérez on 08-18-2024 Glucose [Mass/Vol] 195 mg/dL High 70-99 [facility] Serum or plasma alanine cabral otransferase (ALT) measurementOrdered By: Franco Pérez on 08-18-2024 ALT [Catalytic activity/Vol] 24 U/L <47 [facility] Serum or plasma albumin blaine urement (mass/volume)Ordered By: Franco Pérez on 08-18-2024 Albumin [Mass/Vol] 3.7 g/dL 3.4-4.8 [facility] Serum or plasma albumin/glob ulin mass ratioOrdered By: Franco Pérez on 08-18-2024 Albumin/Globulin [Mass ratio] 1.2 {ratio} 0.9-2.4 [facility] Serum or plasma alkaline zee sphatase measurementOrdered By: Franco Pérez on 08-18-2024 ALP [Catalytic activity/Vol] 104 U/L 40-129 [facility] Serum or plasma calcium blaine urement (mass/volume)Ordered By: Franco Pérez on 08-18-2024 Calcium [Mass/Vol] 9.4 mg/dL 7.6-11.0 [facility] Serum or plasma urea nitroge n measurement (mass/volume)Ordered By: Franco Pérez on 08-18-2024 Urea nitrogen [Mass/Vol] 20 mg/dL High 4-19 [facility] Sodium levelOrdered By: Jonathon Pérez on 08-18-2024 Sodium [Moles/Vol] 138 mmol/L 133-145 [facility] Telephone Encounteron 2024 [employer] Authentication Interface Message Text Reached patient, who [...] acknowledges understanding. Cindy Newell RN Normal [facility] [facility] Total proteinOrdered By: Faheem Pérez on 08-18-2024 Protein [Mass/Vol] 6.7 g/dL 5.9-8.4 [facility] White blood cell (WBC) count Ordered By: Franco Pérez on 08-18-2024 WBC (Bld) [#/Vol] 2.3 10*3/uL Low 4.4-11.0 [facility] Radiation Oncology Visiton 0 08-12-2024 Radiation Oncology Visit Normal [facility] Absolute lymphocyte countOrd ered By: Franco Pérez on 08-10-2024 Lymphocytes Auto (Unsp spec) [#/Vol] 0.19 10*3/uL Low 0.83-4.51 [facility] Absolute neutrophil countOrd ered By: Franco Pérez on 08-10-2024 Neutrophils (Bld) [#/Vol] 2.9 10*3/uL 2.0-7.7 [facility] Anion gap in Serum or Plasma Ordered By: Franco Pérez on 08-10-2024 Anion gap [Moles/Vol] 12 mmol/L 5-15 [facility] Automated lymphocyte count a s percentage of total leukocytesOrdered By: Franco Pérez on 08-10-2024 Lymphocytes/100 WBC Auto (Unsp spec) 5.1 % Low 19-41 [facility] BUN/creatinine ratioOrdered By: Franco Pérez on 08-10-2024 Urea nitrogen/Creatinine [Mass ratio] 23.1 mg/mg High 10-20 [facility] Basophil percentageOrdered B y: Franco Pérez on 08-10-2024 Basophils/100 WBC (Bld) 0.5 % 0-1 [facility] Bilirubin, totalOrdered By: Franco Pérez on 08-10-2024 Bilirubin [Mass/Vol] 1.24 mg/dL 0.00-1.30 [facility] CBC W/Diff, Automatedon 07-23 Absolute Lymph 0.19 X10 3/uL Low 0.83-4.51 [facility] Comment on above: Performed By: #### L 500.4050, L501.2300, L501.5200, L100.0100 ####[facility] [address] [place], [address] Absolute Neut 2.9 X10 3/uL Normal 2.0-7.7 [facility] Comment on above: Performed By: #### L 500.4050, L501.2300, L501.5200, L100.0100 ####[facility] [address] [place], [address] Basophils/100 WBC (Bld) 0.5 % Normal 0-1 [facility] Comment on above: Performed By: #### L 500.4050, L501.2300, L501.5200, L100.0100 ####[facility] [address] [place], [address] Eosinophils/100 WBC (Bld) 0.5 % Normal 0-5 [facility] Comment on above: Performed By: #### L 500.4050, L501.2300, L501.5200, L100.0100 ####[facility] [address] [place], [address] Erythrocyte distribution width (RBC) [Ratio] 15.3 % High 11.6-14.6 [facility] Comment on above: Performed By: #### L 500.4050, L501.2300, L501.5200, L100.0100 ####[facility] [address] [place], [address] Hematocrit (Bld) [Volume fraction] 38.0 % Low 40-54 [facility] Comment on above: Performed By: #### L 500.4050, L501.2300, L501.5200, L100.0100 ####[facility] [address] [place], [address] Hemoglobin (Bld) [Mass/Vol] 12.5 g/dL Low 13.0-16.5 [facility] Comment on above: Performed By: #### L 500.4050, L501.2300, L501.5200, L100.0100 ####[facility] [address] [place], [address] IG% 1.600 High 0.0-0.9 [facility] Comment on above: Result Comment: IG% - Immature Granulocytes (promyelocytes, myelocytes andmetamyelocytes) > 1% indicates that a LEFT SHIFT is Present. Performed By: #### L 500.4050, L501.2300, L501.5200, L100.0100 ####[facility] [address] [place], [address] Lymphocytes/100 WBC (Bld) 5.1 % Low 19-41 [facility] Comment on above: Performed By: #### L 500.4050, L501.2300, L501.5200, L100.0100 ####[facility] [address] [place], [address] MCH (RBC) [Entitic mass] 30.1 pg Normal 27.0-32.0 [facility] Comment on above: Performed By: #### L 500.4050, L501.2300, L501.5200, L100.0100 ####[facility] [address] [place], [address] MCHC (RBC) [Mass/Vol] 32.9 g/dL Normal 32-36 [facility] Comment on above: Performed By: #### L 500.4050, L501.2300, L501.5200, L100.0100 ####[facility] [address] [place], [address] MCV (RBC) [Entitic vol] 91.6 fL Normal 80-94 [facility] Comment on above: Performed By: #### L 500.4050, L501.2300, L501.5200, L100.0100 ####[facility] [address] [place], [address] Monocytes/100 WBC (Bld) 15.5 % High 0-10 [facility] Comment on above: Performed By: #### L 500.4050, L501.2300, L501.5200, L100.0100 ####[facility] [address] [place], [address] Neutrophils/100 WBC (Bld) 76.8 % High 47-70 [facility] Comment on above: Performed By: #### L 500.4050, L501.2300, L501.5200, L100.0100 ####[facility] [address] [place], [address] Nucleated RBC (Bld) [#/Vol] 0 10*3/uL Normal 0-5 [facility] Comment on above: Performed By: #### L 500.4050, L501.2300, L501.5200, L100.0100 ####[facility] [address] [place], [address] Platelet mean volume (Bld) [Entitic vol] 10.4 fL Normal 6.2-12.0 [facility] Comment on above: Performed By: #### L 500.4050, L501.2300, L501.5200, L100.0100 ####[facility] [address] [place], [address] Platelets (Bld) [#/Vol] 98 10*3/uL Low 150-450 [facility] Comment on above: Performed By: #### L 500.4050, L501.2300, L501.5200, L100.0100 ####[facility] [address] [place], [address] RBC (Bld) [#/Vol] 4.15 10*6/uL Low 4.6-6.2 [facility] Comment on above: Performed By: #### L 500.4050, L501.2300, L501.5200, L100.0100 ####[facility] [address] [place], [address] RDW SD 48.5 fl High 35.1-43.9 [facility] Comment on above: Performed By: #### L 500.4050, L501.2300, L501.5200, L100.0100 ####[facility] [address] [place], [address] WBC (Bld) [#/Vol] 3.7 10*3/uL Low 4.4-11.0 [facility] Comment on above: Performed By: #### L 500.4050, L501.2300, L501.5200, L100.0100 ####[facility] [address] [place], [address] Carbon dioxide, total [Moles /volume] in Central venous bloodOrdered By: Franco Pérez on 08-10-2024 CO2 [Moles/Vol] 27.3 mmol/L 21.0-32.0 [facility] Chloride assayOrdered By: Kala Pérez on 08-10-2024 Chloride [Moles/Vol] 100 mmol/L 98-108 [facility] Comprehensive Metabolic Prof ilon 08-10-2024 Albumin [Mass/Vol] 3.6 g/dL Normal 3.4-4.8 [facility] Comment on above: Performed By: #### L 500.4050, L501.2300, L501.5200, L100.0100 ####[facility] [address] [place], [address] Albumin/Globulin [Mass ratio] 1.2 {ratio} Normal 0.9-2.4 [facility] Comment on above: Performed By: #### L 500.4050, L501.2300, L501.5200, L100.0100 ####[facility] [address] [place], [address] ALK PHOS 103 U/L Normal 40-129 [facility] Comment on above: Performed By: #### L 500.4050, L501.2300, L501.5200, L100.0100 ####[facility] [address] [place], [address] ALT [Catalytic activity/Vol] 21 U/L Normal <=46 [facility] Comment on above: Performed By: #### L 500.4050, L501.2300, L501.5200, L100.0100 ####[facility] [address] [place], [address] AST [Catalytic activity/Vol] 22 U/L Normal <=37 [facility] Comment on above: Performed By: #### L 500.4050, L501.2300, L501.5200, L100.0100 ####[facility] [address] [place], [address] Bilirubin [Mass/Vol] 1.24 mg/dL Normal 0.00-1.30 [facility] Comment on above: Performed By: #### L 500.4050, L501.2300, L501.5200, L100.0100 ####[facility] [address] [place], [address] BUN/CRE 23.1 RATIO High 10-20 [facility] Comment on above: Performed By: #### L 500.4050, L501.2300, L501.5200, L100.0100 ####[facility] [address] [place], [address] Calcium [Mass/Vol] 9.6 mg/dL Normal 7.6-11.0 [facility] Comment on above: Performed By: #### L 500.4050, L501.2300, L501.5200, L100.0100 ####[facility] [address] [place], [address] Chloride [Moles/Vol] 100 mmol/L Normal 98-108 [facility] Comment on above: Performed By: #### L 500.4050, L501.2300, L501.5200, L100.0100 ####[facility] [address] [place], [address] CO2 [Moles/Vol] 27.3 mmol/L Normal 21.0-32.0 [facility] Comment on above: Performed By: #### L 500.4050, L501.2300, L501.5200, L100.0100 ####[facility] [address] [place], [address] Creatinine [Mass/Vol] 0.89 mg/dL Normal 0.70-1.20 [facility] Comment on above: Performed By: #### L 500.4050, L501.2300, L501.5200, L100.0100 ####[facility] [address] [place], [address] ECRCL 105.86 ml/min Normal 50-250 [facility] Comment on above: Performed By: #### L 500.4050, L501.2300, L501.5200, L100.0100 ####[facility] [address] [place], [address] GAP 12 Normal 5-15 [facility] Comment on above: Performed By: #### L 500.4050, L501.2300, L501.5200, L100.0100 ####[facility] [address] [place], [address] GFR/1.73 sq M.predicted among non-blacks MDRD (S/P/Bld) [Vol rate/Area] 91 mL/min/{1.73_m2} Normal >60 [facility] Comment on above: Result Comment: mL/m in/1.73m2 CKD-EPI Creatinine Equation (2020) Performed By: #### L 500.4050, L501.2300, L501.5200, L100.0100 ####[facility] [address] [place], [address] Globulin (S) [Mass/Vol] 3.1 g/dL Normal 2.2-4.2 [facility] Comment on above: Performed By: #### L 500.4050, L501.2300, L501.5200, L100.0100 ####[facility] [address] [place], [address] Glucose [Mass/Vol] 176 mg/dL High 70-99 [facility] Comment on above: Performed By: #### L 500.4050, L501.2300, L501.5200, L100.0100 ####[facility] [address] [place], [address] Potassium [Moles/Vol] 3.9 mmol/L Normal 3.3-5.1 [facility] Comment on above: Performed By: #### L 500.4050, L501.2300, L501.5200, L100.0100 ####[facility] [address] [place], [address] Sodium [Moles/Vol] 139 mmol/L Normal 133-145 [facility] Comment on above: Performed By: #### L 500.4050, L501.2300, L501.5200, L100.0100 ####[facility] [address] [place], [address] T PROT 6.7 g/dL Normal 5.9-8.4 [facility] Comment on above: Performed By: #### L 500.4050, L501.2300, L501.5200, L100.0100 ####[facility] [address] [place], [place], [id number] Urea nitrogen [Mass/Vol] 21 mg/dL High -19 [facility] Comment on above: Performed By: #### L 500.4050, L501.2300, L501.5200, L100.0100 ####[facility] [address] [place], [address] Eosinophil percentageOrdered By: Franco Pérez on 08-10-2024 Eosinophils/100 WBC (Bld) 0.5 % 0-5 [facility] Erythrocyte distribution wid th ratioOrdered By: Franco Beto on 08-10-2024 Erythrocyte distribution width (RBC) [Ratio] 15.3 % High 11.6-14.6 [facility] Erythrocyte distribution wid th standard deviationOrdered By: Franco Beto on 08-10-2024 Erythrocyte distribution width (RBC) [Ratio] 48.5 fl High 35.1-43.9 [facility] Glomerular filtration rate ( GFR) estimation/1.73 sq m using serum, plasma, or whole bOrdered By: Franco Pérez on 08-10-2024 GFR/1.73 sq M.predicted among non-blacks MDRD (S/P/Bld) [Vol rate/Area] 91 mL/min/{1.73_m2} >60 [facility] Comment on above: mL/min/1.73m2 CKD-EP I Creatinine Equation (2020) Hematocrit Auto (Bld) [Volum e fraction]Ordered By: Franco Pérez on 08-10-2024 Hematocrit (Bld) [Volume fraction] 38.0 % Low 40-54 [facility] [facility] Hemoglobin measurementOrdere d By: Franco Pérez on 08-10-2024 Hemoglobin (Bld) [Mass/Vol] 12.5 g/dL Low 13.0-16.5 [facility] Immature granulocytes/100 WB C Auto (Bld)Ordered By: Franco Pérez on 08-10-2024 Immature granulocytes/100 WBC (Bld) 1.600 % High 0.0-0.9 [facility] Comment on above: IG% - Immature Granu locytes (promyelocytes, myelocytes and metamyelocytes) > 1% indicates that a LEFT SHIFT is Present. Laboratory - Chemistry and C hemistry - challengeOrdered By: Franco Pérez on 08-10-2024 AST [Catalytic activity/Vol] 22 U/L <38 [facility] MCV (mean corpuscular volume ) determinationOrdered By: Franco Pérez on 08-10-2024 MCV (RBC) [Entitic vol] 91.6 fL 80-94 [facility] Magnesiumon 08-10-2024 Magnesium [Mass/Vol] 2.0 mg/dL Normal 1.5-2.2 [facility] Comment on above: Performed By: #### L 500.4050, L501.2300, L501.5200, L100.0100 ####[facility] [address] [place], [address] Magnesium measurement (mass/ volume)Ordered By: Franco Pérez on 08-10-2024 Magnesium (Unsp spec) [Mass/Vol] 2.0 mg/dL 1.5-2.2 [facility] Mean corpuscular hemoglobin (MCH) determinationOrdered By: Franco Pérez on 08-10-2024 MCH (RBC) [Entitic mass] 30.1 pg 27.0-32.0 [facility] Mean corpuscular hemoglobin concentration (MCHC) determinationOrdered By: Franco Pérez on 08-10-2024 MCHC (RBC) [Mass/Vol] 32.9 g/dL 32-36 [facility] Mean platelet volume determi nationOrdered By: Franco Pérez on 08-10-2024 Platelet mean volume (Bld) [Entitic vol] 10.4 fL 6.2-12.0 [facility] Monocyte percentageOrdered B y: Franco Pérez on 08-10-2024 Monocytes/100 WBC (Bld) 15.5 % High 0-10 [facility] Neutrophil percentageOrdered By: Franco Pérez on 08-10-2024 Neutrophils/100 WBC (Bld) 76.8 % High 47-70 [facility] Nucleated red blood cell per centageOrdered By: Franco Pérez on 08-10-2024 Nucleated RBC/100 WBC (Bld) [Ratio] 0 % 0-5 [facility] Oncology Visit Reporton 07-23 Oncology Visit Report Normal [facility] Phosphoruson 08-10-2024 Phosphate [Mass/Vol] 2.6 mg/dL Low 2.7-4.5 [facility] Comment on above: Performed By: #### L 500.4050, L501.2300, L501.5200, L100.0100 ####[facility] [address] [place], [address] Platelet countOrdered By: Kala Pérez on 08-10-2024 Platelets (Bld) [#/Vol] 98 10*3/uL Low 150-450 [facility] Potassium measurement (mass/ volume)Ordered By: Franco Pérez on 08-10-2024 Potassium (Unsp spec) [Mass/Vol] 3.9 mmol/L 3.3-5.1 [facility] RBC Auto (Bld) [#/Vol]Ordere d By: Franco Pérez on 08-10-2024 RBC (Bld) [#/Vol] 4.15 10*6/uL Low 4.6-6.2 [facility] Serum creatinine measurement (mass/volume)Ordered By: Franco Pérez on 08-10-2024 Creatinine [Mass/Vol] 0.89 mg/dL 0.70-1.20 [facility] Serum globulin measurementOr dered By: Franco Pérez on 08-10-2024 Globulin (S) [Mass/Vol] 3.1 g/dL 2.2-4.2 [facility] Serum glucose measurement (m ass/volume)Ordered By: Franco Pérez on 08-10-2024 Glucose [Mass/Vol] 176 mg/dL High 70-99 [facility] Serum or plasma alanine cabral otransferase (ALT) measurementOrdered By: Franco Pérez on 08-10-2024 ALT [Catalytic activity/Vol] 21 U/L <47 [facility] Serum or plasma albumin blaine urement (mass/volume)Ordered By: Franco Pérez on 08-10-2024 Albumin [Mass/Vol] 3.6 g/dL 3.4-4.8 [facility] Serum or plasma albumin/glob ulin mass ratioOrdered By: Franco Pérez on 08-10-2024 Albumin/Globulin [Mass ratio] 1.2 {ratio} 0.9-2.4 [facility] Serum or plasma alkaline zee sphatase measurementOrdered By: Franco Pérez on 08-10-2024 ALP [Catalytic activity/Vol] 103 U/L 40-129 [facility] Serum or plasma calcium blaine urement (mass/volume)Ordered By: Franco Pérez on 08-10-2024 Calcium [Mass/Vol] 9.6 mg/dL 7.6-11.0 [facility] Serum or plasma urea nitroge n measurement (mass/volume)Ordered By: Franco Pérez on 08-10-2024 Urea nitrogen [Mass/Vol] 21 mg/dL High 4-19 [facility] Sodium levelOrdered By: Jonathon Pérez on 08-10-2024 Sodium [Moles/Vol] 139 mmol/L 133-145 [facility] Total proteinOrdered By: Faheem Pérez on 08-10-2024 Protein [Mass/Vol] 6.7 g/dL 5.9-8.4 [facility] White blood cell (WBC) count Ordered By: Franco Pérez on 08-10-2024 WBC (Bld) [#/Vol] 3.7 10*3/uL Low 4.4-11.0 [facility] Radiation Oncology Visiton 0 08-05-2024 Radiation Oncology Visit Normal [facility] Absolute lymphocyte countOrd ered By: Franco Pérez on 08-03-2024 Lymphocytes Auto (Unsp spec) [#/Vol] 0.23 10*3/uL Low 0.83-4.51 [facility] Absolute neutrophil countOrd ered By: Franco Pérez on 08-03-2024 Neutrophils (Bld) [#/Vol] 1.8 10*3/uL Low 2.0-7.7 [facility] Anion gap in Serum or Plasma Ordered By: Franco Pérez on 08-03-2024 Anion gap [Moles/Vol] 11 mmol/L 5-15 [facility] Automated lymphocyte count a s percentage of total leukocytesOrdered By: Franco Pérez on 08-03-2024 Lymphocytes/100 WBC Auto (Unsp spec) 9.4 % Low 19-41 [facility] BUN/creatinine ratioOrdered By: Franco Pérez on 08-03-2024 Urea nitrogen/Creatinine [Mass ratio] 26.5 mg/mg High 10-20 [facility] Basophil percentageOrdered B y: Franco Pérez on 08-03-2024 Basophils/100 WBC (Bld) 1.2 % High 0-1 [facility] Bilirubin, totalOrdered By: Frnaco Pérez on 08-03-2024 Bilirubin [Mass/Vol] 1.00 mg/dL 0.00-1.30 [facility] Blood manual differential co mment interpretation (narrative result)Ordered By: Franco Pérez on 08-03-2024 Manual differential comment Jovanny (Bld) [Interp] COMMENT [facility] Comment on above: LYMPHOPENIA. CBC W/Diff, Automatedon 07-23 PLT EST MOD DEC Normal ADEQ [facility] Comment on above: Performed By: #### L 100.0100, L501.2300, L500.4050, L501.5200 ####[facility] [address] [place], [address] SMEAR COMMENT COMMENT Normal [facility] Comment on above: Result Comment: LYMP HOPENIA. Performed By: #### L 100.0100, L501.2300, L500.4050, L501.5200 ####[facility] [address] [place], [address] Carbon dioxide, total [Moles /volume] in Central venous bloodOrdered By: Franco Pérez on 08-03-2024 CO2 [Moles/Vol] 25.3 mmol/L 21.0-32.0 [facility] Chloride assayOrdered By: Kala Pérez on 08-03-2024 Chloride [Moles/Vol] 103 mmol/L 98-108 [facility] Comprehensive Metabolic Prof ilon 08-03-2024 Albumin [Mass/Vol] 3.5 g/dL Normal 3.4-4.8 [facility] Comment on above: Performed By: #### L 100.0100, L501.2300, L500.4050, L501.5200 ####[facility] [address] [place], [address] Albumin/Globulin [Mass ratio] 1.2 {ratio} Normal 0.9-2.4 [facility] Comment on above: Performed By: #### L 100.0100, L501.2300, L500.4050, L501.5200 ####[facility] [address] [place], [address] ALK PHOS 93 U/L Normal 40-129 [facility] Comment on above: Performed By: #### L 100.0100, L501.2300, L500.4050, L501.5200 ####[facility] [address] [place], [address] ALT [Catalytic activity/Vol] 31 U/L Normal <=46 [facility] Comment on above: Performed By: #### L 100.0100, L501.2300, L500.4050, L501.5200 ####[facility] [address] [place], [address] AST [Catalytic activity/Vol] 22 U/L Normal <=37 [facility] Comment on above: Performed By: #### L 100.0100, L501.2300, L500.4050, L501.5200 ####[facility] [address] [place], [address] Bilirubin [Mass/Vol] 1.00 mg/dL Normal 0.00-1.30 [facility] Comment on above: Performed By: #### L 100.0100, L501.2300, L500.4050, L501.5200 ####[facility] [address] [place], [address] BUN/CRE 26.5 RATIO High 10-20 [facility] Comment on above: Performed By: #### L 100.0100, L501.2300, L500.4050, L501.5200 ####[facility] [address] [place], [address] Calcium [Mass/Vol] 9.1 mg/dL Normal 7.6-11.0 [facility] Comment on above: Performed By: #### L 100.0100, L501.2300, L500.4050, L501.5200 ####[facility] [address] [place], [address] Chloride [Moles/Vol] 103 mmol/L Normal 98-108 [facility] Comment on above: Performed By: #### L 100.0100, L501.2300, L500.4050, L501.5200 ####[facility] [address] [place], [address] CO2 [Moles/Vol] 25.3 mmol/L Normal 21.0-32.0 [facility] Comment on above: Performed By: #### L 100.0100, L501.2300, L500.4050, L501.5200 ####[facility] [address] [place], [address] Creatinine [Mass/Vol] 0.86 mg/dL Normal 0.70-1.20 [facility] Comment on above: Performed By: #### L 100.0100, L501.2300, L500.4050, L501.5200 ####[facility] [address] [place], [address] ECRCL 109.16 ml/min Normal 50-250 [facility] Comment on above: Performed By: #### L 100.0100, L501.2300, L500.4050, L501.5200 ####[facility] [address] [place], [address] GAP 11 Normal 5-15 [facility] Comment on above: Performed By: #### L 100.0100, L501.2300, L500.4050, L501.5200 ####[facility] [address] [place], [address] GFR/1.73 sq M.predicted among non-blacks MDRD (S/P/Bld) [Vol rate/Area] 92 mL/min/{1.73_m2} Normal >60 [facility] Comment on above: Result Comment: mL/m in/1.73m2 CKD-EPI Creatinine Equation (2020) Performed By: #### L 100.0100, L501.2300, L500.4050, L501.5200 ####[facility] [address] [place], [address] Globulin (S) [Mass/Vol] 3.0 g/dL Normal 2.2-4.2 [facility] Comment on above: Performed By: #### L 100.0100, L501.2300, L500.4050, L501.5200 ####[facility] [address] [place], [address] Glucose [Mass/Vol] 155 mg/dL High 70-99 [facility] Comment on above: Performed By: #### L 100.0100, L501.2300, L500.4050, L501.5200 ####[facility] [address] [place], [address] Potassium [Moles/Vol] 3.9 mmol/L Normal 3.3-5.1 [facility] Comment on above: Performed By: #### L 100.0100, L501.2300, L500.4050, L501.5200 ####[facility] [address] [place], [address] Sodium [Moles/Vol] 139 mmol/L Normal 133-145 [facility] Comment on above: Performed By: #### L 100.0100, L501.2300, L500.4050, L501.5200 ####[facility] [address] [place], [address] T PROT 6.5 g/dL Normal 5.9-8.4 [facility] Comment on above: Performed By: #### L 100.0100, L501.2300, L500.4050, L501.5200 ####[facility] [address] [place], [address] Urea nitrogen [Mass/Vol] 23 mg/dL High 4-19 [facility] Comment on above: Performed By: #### L 100.0100, L501.2300, L500.4050, L501.5200 ####[facility] [address] [place], [address] Eosinophil percentageOrdered By: Franco Pérez on 08-03-2024 Eosinophils/100 WBC (Bld) 0.4 % 0-5 [facility] Erythrocyte distribution wid th ratioOrdered By: Franco Pérez on 08-03-2024 Erythrocyte distribution width (RBC) [Ratio] 14.3 % 11.6-14.6 [facility] Erythrocyte distribution wid th standard deviationOrdered By: Franco Pérez on 08-03-2024 Erythrocyte distribution width (RBC) [Ratio] 44.7 fl High 35.1-43.9 [facility] Glomerular filtration rate ( GFR) estimation/1.73 sq m using serum, plasma, or whole bOrdered By: Franco Pérez on 08-03-2024 GFR/1.73 sq M.predicted among non-blacks MDRD (S/P/Bld) [Vol rate/Area] 92 mL/min/{1.73_m2} >60 [facility] Comment on above: mL/min/1.73m2 CKD-EP I Creatinine Equation (2020) Hematocrit Auto (Bld) [Volum e fraction]Ordered By: Franco Pérez on 08-03-2024 Hematocrit (Bld) [Volume fraction] 37.8 % Low 40-54 [facility] Hemoglobin measurementOrdere d By: Franco Pérez on 08-03-2024 Hemoglobin (Bld) [Mass/Vol] 12.5 g/dL Low 13.0-16.5 [facility] Immature granulocytes/100 WB C Auto (Bld)Ordered By: Franco Pérez on 08-03-2024 Immature granulocytes/100 WBC (Bld) 2.900 % High 0.0-0.9 [facility] Comment on above: IG% - Immature Granu locytes (promyelocytes, myelocytes and metamyelocytes) > 1% indicates that a LEFT SHIFT is Present. Laboratory - Chemistry and C hemistry - challengeOrdered By: Franco Anderson on 08-03-2024 AST [Catalytic activity/Vol] 22 U/L <38 [facility] MCV (mean corpuscular volume ) determinationOrdered By: Franco Pérez on 08-03-2024 MCV (RBC) [Entitic vol] 90.4 fL 80-94 [facility] Magnesiumon 08-03-2024 Magnesium [Mass/Vol] 1.8 mg/dL Normal 1.5-2.2 [facility] Comment on above: Performed By: #### L 100.0100, L501.2300, L500.4050, L501.5200 ####[facility] [address] [place], [place], [id number] Magnesium measurement (mass/ volume)Ordered By: Franco [facility] on 08-03-2024 Magnesium (Unsp spec) [Mass/Vol] 1.8 mg/dL 1.5-2.2 [facility] Mean corpuscular hemoglobin (MCH) determinationOrdered By: Franco Pérez on 08-03-2024 MCH (RBC) [Entitic mass] 29.9 pg 27.0-32.0 [facility] Mean corpuscular hemoglobin concentration (MCHC) determinationOrdered By: Franco [facility] on 08-03-2024 MCHC (RBC) [Mass/Vol] 33.1 g/dL 32-36 [facility] Mean platelet volume determi nationOrdered By: Franco Pérez on 08-03-2024 Platelet mean volume (Bld) [Entitic vol] 11.2 fL 6.2-12.0 [facility] Monocyte percentageOrdered B y: Franco Pérez on 08-03-2024 Monocytes/100 WBC (Bld) 13.5 % High 0-10 [facility] Neutrophil percentageOrdered By: Franco Pérez on 08-03-2024 Neutrophils/100 WBC (Bld) 72.6 % High 47-70 [facility] Nucleated red blood cell per centageOrdered By: Franco Pérez on 08-03-2024 Nucleated RBC/100 WBC (Bld) [Ratio] 0 % 0-5 [facility] Oncology Visit Reporton 07-23 Oncology Visit Report Normal [facility] Phosphoruson 08-03-2024 Phosphate [Mass/Vol] 2.6 mg/dL Low 2.7-4.5 [facility] Comment on above: Performed By: #### L 100.0100, L501.2300, L500.4050, L501.5200 ####[facility] [address], [address] Platelet countOrdered By: Kala Pérez on 08-03-2024 Platelets (Bld) [#/Vol] 72 10*3/uL Low 150-450 [facility] Platelet estimateOrdered By: Franco Pérez on 08-03-2024 Platelets LM Ql (Bld) MOD DEC ADEQ [facility] Potassium measurement (mass/ volume)Ordered By: Franco Pérez on 08-03-2024 Potassium (Unsp spec) [Mass/Vol] 3.9 mmol/L 3.3-5.1 [facility] RBC Auto (Bld) [#/Vol]Ordere d By: Franco Pérez on 08-03-2024 RBC (Bld) [#/Vol] 4.18 10*6/uL Low 4.6-6.2 [facility] Serum creatinine measurement (mass/volume)Ordered By: Franco Pérez on 08-03-2024 Creatinine [Mass/Vol] 0.86 mg/dL 0.70-1.20 [facility] Serum globulin measurementOr dered By: Franco Pérez on 08-03-2024 Globulin (S) [Mass/Vol] 3.0 g/dL 2.2-4.2 [facility] Serum glucose measurement (m ass/volume)Ordered By: Franco Pérez on 08-03-2024 Glucose [Mass/Vol] 155 mg/dL High 70-99 [facility] Serum or plasma alanine cabral otransferase (ALT) measurementOrdered By: Franco Pérez on 08-03-2024 ALT [Catalytic activity/Vol] 31 U/L <47 [facility] Serum or plasma albumin blaine urement (mass/volume)Ordered By: Franco Pérez on 08-03-2024 Albumin [Mass/Vol] 3.5 g/dL 3.4-4.8 [facility] Serum or plasma albumin/glob ulin mass ratioOrdered By: Franco Pérez on 08-03-2024 Albumin/Globulin [Mass ratio] 1.2 {ratio} 0.9-2.4 [facility] Serum or plasma alkaline zee sphatase measurementOrdered By: Franco Pérez on 08-03-2024 ALP [Catalytic activity/Vol] 93 U/L 40-129 [facility] Serum or plasma calcium blaine urement (mass/volume)Ordered By: Franco Pérez on 08-03-2024 Calcium [Mass/Vol] 9.1 mg/dL 7.6-11.0 [facility] Serum or plasma urea nitroge n measurement (mass/volume)Ordered By: Franco Pérez on 08-03-2024 Urea nitrogen [Mass/Vol] 23 mg/dL High 4-19 [facility] Sodium levelOrdered By: Jonathon Pérez on 08-03-2024 Sodium [Moles/Vol] 139 mmol/L 133-145 [facility] Total proteinOrdered By: Faheem Pérez on 08-03-2024 Protein [Mass/Vol] 6.5 g/dL 5.9-8.4 [facility] White blood cell (WBC) count Ordered By: Franco Pérez on 08-03-2024 WBC (Bld) [#/Vol] 2.5 10*3/uL Low 4.4-11.0 [facility] Radiation Oncology Visiton 0 - Radiation Oncology Visit Normal [facility] CBC W/Diff, Automatedon Absolute Lymph 0.21 X10 3/uL Low 0.83-4.51 [facility] Comment on above: Performed By: #### L 501.2300, L501.5200, L100.0100, L500.4050 ####[facility] [address] [place], [address] Absolute Neut 2.3 X10 3/uL Normal 2.0-7.7 [facility] Comment on above: Performed By: #### L 501.2300, L501.5200, L100.0100, L500.4050 ####[facility] [address] [place], [address] Basophils/100 WBC (Bld) 1.6 % High 0-1 [facility] Comment on above: Performed By: #### L 501.2300, L501.5200, L100.0100, L500.4050 ####[facility] [address] [place], [address] Eosinophils/100 WBC (Bld) 0.6 % Normal 0-5 [facility] Comment on above: Performed By: #### L 501.2300, L501.5200, L100.0100, L500.4050 ####[facility] [address] [place], [address] Erythrocyte distribution width (RBC) [Ratio] 13.9 % Normal 11.6-14.6 [facility] Comment on above: Performed By: #### L 501.2300, L501.5200, L100.0100, L500.4050 ####[facility] [address] [place], [address] Hematocrit (Bld) [Volume fraction] 39.3 % Low 40-54 [facility] Comment on above: Performed By: #### L 501.2300, L501.5200, L100.0100, L500.4050 ####[facility] [address] [place], [address] Hemoglobin (Bld) [Mass/Vol] 13.0 g/dL Normal 13.0-16.5 [facility] Comment on above: Performed By: #### L 501.2300, L501.5200, L100.0100, L500.4050 ####[facility] [address] [place], [address] IG% 1.900 High 0.0-0.9 [facility] Comment on above: Result Comment: IG% - Immature Granulocytes (promyelocytes, myelocytes andmetamyelocytes) > 1% indicates that a LEFT SHIFT is Present. Performed By: #### L 501.2300, L501.5200, L100.0100, L500.4050 ####[facility] [address] [place], [address] Lymphocytes/100 WBC (Bld) 6.6 % Low 19-41 [facility] Comment on above: Performed By: #### L 501.2300, L501.5200, L100.0100, L500.4050 ####[facility] [address] [place], [address] MCH (RBC) [Entitic mass] 29.5 pg Normal 27.0-32.0 [facility] Comment on above: Performed By: #### L 501.2300, L501.5200, L100.0100, L500.4050 ####[facility] [address] [place], [address] MCHC (RBC) [Mass/Vol] 33.1 g/dL Normal 32-36 [facility] Comment on above: Performed By: #### L 501.2300, L501.5200, L100.0100, L500.4050 ####[facility] [address] [place], [address] MCV (RBC) [Entitic vol] 89.3 fL Normal 80-94 [facility] Comment on above: Performed By: #### L 501.2300, L501.5200, L100.0100, L500.4050 ####[facility] [address] [place], [address] Monocytes/100 WBC (Bld) 18.8 % High 0-10 [facility] Comment on above: Performed By: #### L 501.2300, L501.5200, L100.0100, L500.4050 ####[facility] [address] [place], [address] Neutrophils/100 WBC (Bld) 70.5 % High 47-70 [facility] Comment on above: Performed By: #### L 501.2300, L501.5200, L100.0100, L500.4050 ####[facility] [address] [place], [address] Nucleated RBC (Bld) [#/Vol] 0 10*3/uL Normal 0-5 [facility] Comment on above: Performed By: #### L 501.2300, L501.5200, L100.0100, L500.4050 ####[facility] [address] [place], [address] Platelet mean volume (Bld) [Entitic vol] 10.2 fL Normal 6.2-12.0 [facility] Comment on above: Performed By: #### L 501.2300, L501.5200, L100.0100, L500.4050 ####[facility] [address] [place], [address] Platelets (Bld) [#/Vol] 103 10*3/uL Low 150-450 [facility] Comment on above: Performed By: #### L 501.2300, L501.5200, L100.0100, L500.4050 ####[facility] [address] [place], [address] RBC (Bld) [#/Vol] 4.40 10*6/uL Low 4.6-6.2 [facility] Comment on above: Performed By: #### L 501.2300, L501.5200, L100.0100, L500.4050 ####[facility] [address] [place], [address] RDW SD 44.1 fl High 35.1-43.9 [facility] Comment on above: Performed By: #### L 501.2300, L501.5200, L100.0100, L500.4050 ####[facility] [address] [place], [address] WBC (Bld) [#/Vol] 3.2 10*3/uL Low 4.4-11.0 [facility] Comment on above: Performed By: #### L 501.2300, L501.5200, L100.0100, L500.4050 ####[facility] [address] [place], [address] Comprehensive Metabolic Prof [facility] 07-27-2024 Albumin [Mass/Vol] 3.6 g/dL Normal 3.4-4.8 [facility] Comment on above: Performed By: #### L 501.2300, L501.5200, L100.0100, L500.4050 ####[facility] [address] [place], [address] Albumin/Globulin [Mass ratio] 1.1 {ratio} Normal 0.9-2.4 [facility] Comment on above: Performed By: #### L 501.2300, L501.5200, L100.0100, L500.4050 ####[facility] [address] [place], [address] ALK PHOS 88 U/L Normal 40-129 [facility] Comment on above: Performed By: #### L 501.2300, L501.5200, L100.0100, L500.4050 ####[facility] [address] [place], [address] ALT [Catalytic activity/Vol] 25 U/L Normal <=46 [facility] Comment on above: Performed By: #### L 501.2300, L501.5200, L100.0100, L500.4050 ####[facility] [address] [place], [address] AST [Catalytic activity/Vol] 18 U/L Normal <=37 [facility] Comment on above: Performed By: #### L 501.2300, L501.5200, L100.0100, L500.4050 ####[facility] [address] [place], [address] Bilirubin [Mass/Vol] 1.62 mg/dL High 0.00-1.30 [facility] Comment on above: Performed By: #### L 501.2300, L501.5200, L100.0100, L500.4050 ####[facility] [address] [place], [address] BUN/CRE 26.0 RATIO High 10-20 [facility] Comment on above: Performed By: #### L 501.2300, L501.5200, L100.0100, L500.4050 ####[facility] [id number] [place], [address] Calcium [Mass/Vol] 9.5 mg/dL Normal 7.6-11.0 [facility] Comment on above: Performed By: #### L 501.2300, L501.5200, L100.0100, L500.4050 ####[facility] [address] [place], [address] Chloride [Moles/Vol] 102 mmol/L Normal 98-108 [facility] Comment on above: Performed By: #### L 501.2300, L501.5200, L100.0100, L500.4050 ####[facility] [address] [place], [address] CO2 [Moles/Vol] 23.3 mmol/L Normal 21.0-32.0 [facility] Comment on above: Performed By: #### L 501.2300, L501.5200, L100.0100, L500.4050 ####[facility] [address] [place], [address] Creatinine [Mass/Vol] 0.92 mg/dL Normal 0.70-1.20 [facility] Comment on above: Performed By: #### L 501.2300, L501.5200, L100.0100, L500.4050 ####[facility] [address] [place], [address] ECRCL 102.97 ml/min Normal 50-250 [facility] Comment on above: Performed By: #### L 501.2300, L501.5200, L100.0100, L500.4050 ####[facility] [address] [place], [address] GAP 15 Normal 5-15 [facility] Comment on above: Performed By: #### L 501.2300, L501.5200, L100.0100, L500.4050 ####[facility] [address] [place], [address] GFR/1.73 sq M.predicted among non-blacks MDRD (S/P/Bld) [Vol rate/Area] 89 mL/min/{1.73_m2} Normal >60 [facility] Comment on above: Result Comment: mL/m in/1.73m2 CKD-EPI Creatinine Equation (2020) Performed By: #### L 501.2300, L501.5200, L100.0100, L500.4050 ####[facility] [address] [place], [address] Globulin (S) [Mass/Vol] 3.3 g/dL Normal 2.2-4.2 [facility] Comment on above: Performed By: #### L 501.2300, L501.5200, L100.0100, L500.4050 ####[facility] [address] [place], [address] Glucose [Mass/Vol] 166 mg/dL High 70-99 [facility] Comment on above: Performed By: #### L 501.2300, L501.5200, L100.0100, L500.4050 ####[facility] [address] [place], [address] Potassium [Moles/Vol] 3.9 mmol/L Normal 3.3-5.1 [facility] Comment on above: Performed By: #### L 501.2300, L501.5200, L100.0100, L500.4050 ####[facility] [address] [place], [address] Sodium [Moles/Vol] 140 mmol/L Normal 133-145 [facility] Comment on above: Performed By: #### L 501.2300, L501.5200, L100.0100, L500.4050 ####[facility] [address] [place], [address] T PROT 6.9 g/dL Normal 5.9-8.4 [facility] Comment on above: Performed By: #### L 501.2300, L501.5200, L100.0100, L500.4050 ####[facility] [address] [place], [address] Urea nitrogen [Mass/Vol] 24 mg/dL High 4-19 [facility] Comment on above: Performed By: #### L 501.2300, L501.5200, L100.0100, L500.4050 ####[facility] [address] [place], [address] Magnesiumon 07-27-2024 Magnesium [Mass/Vol] 1.8 mg/dL Normal 1.5-2.2 [facility] Comment on above: Performed By: #### L 501.2300, L501.5200, L100.0100, L500.4050 ####[facility] [address] [place], [address] Oncology Visit Reporton Oncology Visit Report Normal [facility] Phosphoruson 07-27-2024 Phosphate [Mass/Vol] 3.2 mg/dL Normal 2.7-4.5 [facility] Comment on above: Performed By: #### L 501.2300, L501.5200, L100.0100, L500.4050 ####[facility] [address] [place], [address] Radiation Oncology Visiton 0 07-22-2024 Radiation Oncology Visit Normal [facility] Surgery Visit Reporton 07-22 Surgery Visit Report Normal [facility] CBC W/Diff, Automatedon 06-24 Absolute Lymph 0.45 X10 3/uL Low 0.83-4.51 [facility] Comment on above: Performed By: #### L 501.2300, L100.0100, L501.5200, L500.4050 ####[facility] [address] [place], [address] Absolute Neut 4.1 X10 3/uL Normal 2.0-7.7 [facility] Comment on above: Performed By: #### L 501.2300, L100.0100, L501.5200, L500.4050 ####[facility] [address] [place], [address] Basophils/100 WBC (Bld) 1.1 % High 0-1 [facility] Comment on above: Performed By: #### L 501.2300, L100.0100, L501.5200, L500.4050 ####[facility] [address] [place], [address] Eosinophils/100 WBC (Bld) 2.8 % Normal 0-5 [facility] Comment on above: Performed By: #### L 501.2300, L100.0100, L501.5200, L500.4050 ####[facility] [address] [place], [address] Erythrocyte distribution width (RBC) [Ratio] 13.6 % Normal 11.6-14.6 [facility] Comment on above: Performed By: #### L 501.2300, L100.0100, L501.5200, L500.4050 ####[facility] [address] [place], [address] Hematocrit (Bld) [Volume fraction] 41.3 % Normal 40-54 [facility] Comment on above: Performed By: #### L 501.2300, L100.0100, L501.5200, L500.4050 ####[facility] [address] [place], [address] Hemoglobin (Bld) [Mass/Vol] 13.6 g/dL Normal 13.0-16.5 [facility] Comment on above: Performed By: #### L 501.2300, L100.0100, L501.5200, L500.4050 ####[facility] [address] [place], [address] IG% 1.700 High 0.0-0.9 [facility] Comment on above: Result Comment: IG% - Immature Granulocytes (promyelocytes, myelocytes andmetamyelocytes) > 1% indicates that a LEFT SHIFT is Present. Performed By: #### L 501.2300, L100.0100, L501.5200, L500.4050 ####[facility] [address] [place], [address] Lymphocytes/100 WBC (Bld) 8.3 % Low 19-41 [facility] Comment on above: Performed By: #### L 501.2300, L100.0100, L501.5200, L500.4050 ####[facility] [address] [place], [address] MCH (RBC) [Entitic mass] 29.6 pg Normal 27.0-32.0 [facility] Comment on above: Performed By: #### L 501.2300, L100.0100, L501.5200, L500.4050 ####[facility] [address] [place], [address] MCHC (RBC) [Mass/Vol] 32.9 g/dL Normal 32-36 [facility] Comment on above: Performed By: #### L 501.2300, L100.0100, L501.5200, L500.4050 ####[facility] [address] [place], [address] MCV (RBC) [Entitic vol] 90.0 fL Normal 80-94 [facility] Comment on above: Performed By: #### L 501.2300, L100.0100, L501.5200, L500.4050 ####[facility] [address] [place], [address] Monocytes/100 WBC (Bld) 10.1 % High 0-10 [facility] Comment on above: Performed By: #### L 501.2300, L100.0100, L501.5200, L500.4050 ####[facility] [address] [place], [address] Neutrophils/100 WBC (Bld) 76.0 % High 47-70 [facility] Comment on above: Performed By: #### L 501.2300, L100.0100, L501.5200, L500.4050 ####[facility] [address] [place], [address] Nucleated RBC (Bld) [#/Vol] 0 10*3/uL Normal 0-5 [facility] Comment on above: Performed By: #### L 501.2300, L100.0100, L501.5200, L500.4050 ####[facility] [address] [place], [address] Platelet mean volume (Bld) [Entitic vol] 10.7 fL Normal 6.2-12.0 [facility] Comment on above: Performed By: #### L 501.2300, L100.0100, L501.5200, L500.4050 ####[facility] [address] [place], [address] Platelets (Bld) [#/Vol] 164 10*3/uL Normal 150-450 [facility] Comment on above: Performed By: #### L 501.2300, L100.0100, L501.5200, L500.4050 ####[facility] [address] [place], [address] RBC (Bld) [#/Vol] 4.59 10*6/uL Low 4.6-6.2 [facility] Comment on above: Performed By: #### L 501.2300, L100.0100, L501.5200, L500.4050 ####[facility] [address] [place], [address] RDW SD 43.8 fl Normal 35.1-43.9 [facility] Comment on above: Performed By: #### L 501.2300, L100.0100, L501.5200, L500.4050 ####[facility] [address] [place], [address] WBC (Bld) [#/Vol] 5.4 10*3/uL Normal 4.4-11.0 [facility] Comment on above: Performed By: #### L 501.2300, L100.0100, L501.5200, L500.4050 ####[facility] [address] [place], [address] Comprehensive Metabolic Prof ilon 07-20-2024 Albumin [Mass/Vol] 3.8 g/dL Normal 3.4-4.8 [facility] Comment on above: Performed By: #### L 501.2300, L100.0100, L501.5200, L500.4050 ####[facility] [address] [place], [address] Albumin/Globulin [Mass ratio] 1.1 {ratio} Normal 0.9-2.4 [facility] Comment on above: Performed By: #### L 501.2300, L100.0100, L501.5200, L500.4050 ####[facility] [address] [place], [address] ALK PHOS 93 U/L Normal 40-129 [facility] Comment on above: Performed By: #### L 501.2300, L100.0100, L501.5200, L500.4050 ####[facility] [address] [place], [address] ALT [Catalytic activity/Vol] 34 U/L Normal <=46 [facility] Comment on above: Performed By: #### L 501.2300, L100.0100, L501.5200, L500.4050 ####[facility] [address] [place], [address] AST [Catalytic activity/Vol] 25 U/L Normal <=37 [facility] Comment on above: Performed By: #### L 501.2300, L100.0100, L501.5200, L500.4050 ####[facility] [address] [place], [address] Bilirubin [Mass/Vol] 1.53 mg/dL High 0.00-1.30 [facility] Comment on above: Performed By: #### L 501.2300, L100.0100, L501.5200, L500.4050 ####[facility] [address] [place], [address] BUN/CRE 18.1 RATIO Normal 10-20 [facility] Comment on above: Performed By: #### L 501.2300, L100.0100, L501.5200, L500.4050 ####[facility] [address] [place], [address] Calcium [Mass/Vol] 9.5 mg/dL Normal 7.6-11.0 [facility] Comment on above: Performed By: #### L 501.2300, L100.0100, L501.5200, L500.4050 ####[facility] [address] [place], [address] Chloride [Moles/Vol] 101 mmol/L Normal 98-108 [facility] Comment on above: Performed By: #### L 501.2300, L100.0100, L501.5200, L500.4050 ####[facility] [address] [place], [address] CO2 [Moles/Vol] 23.8 mmol/L Normal 21.0-32.0 [facility] Comment on above: Performed By: #### L 501.2300, L100.0100, L501.5200, L500.4050 ####[facility] [address] [place], [address] Creatinine [Mass/Vol] 0.99 mg/dL Normal 0.70-1.20 [facility] Comment on above: Performed By: #### L 501.2300, L100.0100, L501.5200, L500.4050 ####[facility] [address] [place], [address] ECRCL 98.19 ml/min Normal 50-250 [facility] Comment on above: Performed By: #### L 501.2300, L100.0100, L501.5200, L500.4050 ####[facility] [address] [place], [address] GAP 13 Normal 5-15 [facility] Comment on above: Performed By: #### L 501.2300, L100.0100, L501.5200, L500.4050 ####[facility] [address] [place], [address] GFR/1.73 sq M.predicted among non-blacks MDRD (S/P/Bld) [Vol rate/Area] 81 mL/min/{1.73_m2} Normal >60 [facility] Comment on above: Result Comment: mL/m in/1.73m2 CKD-EPI Creatinine Equation (2020) Performed By: #### L 501.2300, L100.0100, L501.5200, L500.4050 ####[facility] [address] [place], [address] Globulin (S) [Mass/Vol] 3.4 g/dL Normal 2.2-4.2 [facility] Comment on above: Performed By: #### L 501.2300, L100.0100, L501.5200, L500.4050 ####[facility] [address] [place], [address] Glucose [Mass/Vol] 166 mg/dL High 70-99 [facility] Comment on above: Performed By: #### L 501.2300, L100.0100, L501.5200, L500.4050 ####[facility] [address] [place], [address] Potassium [Moles/Vol] 4.1 mmol/L Normal 3.3-5.1 [facility] Comment on above: Performed By: #### L 501.2300, L100.0100, L501.5200, L500.4050 ####[facility] [address] [place], [address] Sodium [Moles/Vol] 137 mmol/L Normal 133-145 [facility] Comment on above: Performed By: #### L 501.2300, L100.0100, L501.5200, L500.4050 ####[facility] [address] [place], [address] T PROT 7.2 g/dL Normal 5.9-8.4 [facility] Comment on above: Performed By: #### L 501.2300, L100.0100, L501.5200, L500.4050 ####[facility] [address] [place], [address] Urea nitrogen [Mass/Vol] 18 mg/dL Normal 4-19 [facility] Comment on above: Performed By: #### L 501.2300, L100.0100, L501.5200, L500.4050 ####[facility] [address] [place], [address] Magnesiumon 07-20-2024 Magnesium [Mass/Vol] 1.8 mg/dL Normal 1.5-2.2 [facility] Comment on above: Performed By: #### L 501.2300, L100.0100, L501.5200, L500.4050 ####[facility] [address] [place], [address] Oncology Visit Reporton 04-2 8-2025 Oncology Visit Report Normal [facility] Phosphoruson 07-20-2024 Phosphate [Mass/Vol] 2.7 mg/dL Normal 2.7-4.5 [facility] Comment on above: Performed By: #### L 501.2300, L100.0100, L501.5200, L500.4050 ####[facility] [address] [place], [address] TSH DL <= 0.005 mIU/L QnOrde red By: Bulmaro Curtis on 07-20-2024 TSH Qn 0.524 uIU/mL 0.300-4.20 0 [facility] Thyroid Stim Hormone (TSH)on 07-20-2024 TSH 0.524 uIU/mL Normal 0.300-4.20 0 [facility] Comment on above: Performed By: #### L 501.9520, L506.1001 ####[facility] [address] [place], [address] Vitamin D,25 Hydroxyon 07-20 Vitamin D 25-OH 27.2 ng/mL Low 30-100 [facility] Comment on above: Result Comment: Rhonda min D StatusDeficiency: <20 ng/mL (50nmol/L)Insufficiency: 20-30 ng/mL (50-75 nmol/L)Sufficiency: 30-100 ng/mL (75-250 nmol/L)Toxicity: >100 ng/mL (>250 nmol/L) Performed By: #### L 501.9520, L506.1001 ####[facility] [address] [place], [address] Radiation Oncology Visiton 0 07-15-2024 Radiation Oncology Visit Normal [facility] Modified Barium Swallow Stud yon 07-14-2024 Modified Barium Swallow Study Normal [facility] Absolute neutrophil countOrd ered By: Franco Pérez on 07-13-2024 Neutrophils (Bld) [#/Vol] 7.0 10*3/uL 2.0-7.7 [facility] Anion gap in Serum or Plasma Ordered By: Franco Pérez on 07-13-2024 Anion gap [Moles/Vol] 13 mmol/L 5-15 [facility] BUN/creatinine ratioOrdered By: Franco Pérez on 07-13-2024 Urea nitrogen/Creatinine [Mass ratio] 26.3 mg/mg High 10-20 [facility] Basophil percentageOrdered B y: Franco Pérez on 07-13-2024 Basophils/100 WBC (Bld) 0.6 % 0-1 [facility] Bilirubin, totalOrdered By: Franco Pérez on 07-13-2024 Bilirubin [Mass/Vol] 1.38 mg/dL High 0.00-1.30 [facility] CBC W/Diff, Automatedon 06-24 Absolute Lymph 0.88 X10 3/uL Normal 0.83-4.51 [facility] Comment on above: Performed By: #### L 501.5200, L500.4050, L100.0100, L501.2300 ####[facility] [address] [place], [address] Absolute Neut 7.0 X10 3/uL Normal 2.0-7.7 [facility] Comment on above: Performed By: #### L 501.5200, L500.4050, L100.0100, L501.2300 ####[facility] [address] [place], [address] Basophils/100 WBC (Bld) 0.6 % Normal 0-1 [facility] Comment on above: Performed By: #### L 501.5200, L500.4050, L100.0100, L501.2300 ####[facility] [address] [place], [address] Eosinophils/100 WBC (Bld) 2.0 % Normal 0-5 [facility] Comment on above: Performed By: #### L 501.5200, L500.4050, L100.0100, L501.2300 ####[facility] [address] [place], [address] Erythrocyte distribution width (RBC) [Ratio] 13.8 % Normal 11.6-14.6 [facility] Comment on above: Performed By: #### L 501.5200, L500.4050, L100.0100, L501.2300 ####[facility] [address] [place], [address] Hematocrit (Bld) [Volume fraction] 44.1 % Normal 40-54 [facility] Comment on above: Performed By: #### L 501.5200, L500.4050, L100.0100, L501.2300 ####[facility] [address] [place], [address] Hemoglobin (Bld) [Mass/Vol] 14.3 g/dL Normal 13.0-16.5 [facility] Comment on above: Performed By: #### L 501.5200, L500.4050, L100.0100, L501.2300 ####[facility] [address] [place], [address] IG% 1.200 High 0.0-0.9 [facility] Comment on above: Result Comment: IG% - Immature Granulocytes (promyelocytes, myelocytes andmetamyelocytes) > 1% indicates that a LEFT SHIFT is Present. Performed By: #### L 501.5200, L500.4050, L100.0100, L501.2300 ####[facility] [address] [place], [address] Lymphocytes/100 WBC (Bld) 10.0 % Low 19-41 [facility] Comment on above: Performed By: #### L 501.5200, L500.4050, L100.0100, L501.2300 ####[facility] [address] [place], [address] MCH (RBC) [Entitic mass] 29.7 pg Normal 27.0-32.0 [facility] Comment on above: Performed By: #### L 501.5200, L500.4050, L100.0100, L501.2300 ####[facility] [address] [place], [address] MCHC (RBC) [Mass/Vol] 32.4 g/dL Normal 32-36 [facility] Comment on above: Performed By: #### L 501.5200, L500.4050, L100.0100, L501.2300 ####[facility] [address] [place], [address] MCV (RBC) [Entitic vol] 91.5 fL Normal 80-94 [facility] Comment on above: Performed By: #### L 501.5200, L500.4050, L100.0100, L501.2300 ####[facility] [address] [place], [address] Monocytes/100 WBC (Bld) 7.0 % Normal 0-10 [facility] Comment on above: Performed By: #### L 501.5200, L500.4050, L100.0100, L501.2300 ####[facility] [address] [place], [address] Neutrophils/100 WBC (Bld) 79.2 % High 47-70 [facility] Comment on above: Performed By: #### L 501.5200, L500.4050, L100.0100, L501.2300 ####[facility] [address] [place], [address] Nucleated RBC (Bld) [#/Vol] 0 10*3/uL Normal 0-5 [facility] Comment on above: Performed By: #### L 501.5200, L500.4050, L100.0100, L501.2300 ####[facility] [address] [place], [address] Platelet mean volume (Bld) [Entitic vol] 11.7 fL Normal 6.2-12.0 [facility] Comment on above: Performed By: #### L 501.5200, L500.4050, L100.0100, L501.2300 ####[facility] [address] [place], [address] Platelets (Bld) [#/Vol] 178 10*3/uL Normal 150-450 [facility] Comment on above: Performed By: #### L 501.5200, L500.4050, L100.0100, L501.2300 ####[facility] [address] [place], [address] RBC (Bld) [#/Vol] 4.82 10*6/uL Normal 4.6-6.2 [facility] Comment on above: Performed By: #### L 501.5200, L500.4050, L100.0100, L501.2300 ####[facility] [address] [place], [address] RDW SD 46.4 fl High 35.1-43.9 [facility] Comment on above: Performed By: #### L 501.5200, L500.4050, L100.0100, L501.2300 ####[facility] [address] [place], [address] WBC (Bld) [#/Vol] 8.8 10*3/uL Normal 4.4-11.0 [facility] Comment on above: Performed By: #### L 501.5200, L500.4050, L100.0100, L501.2300 ####[facility] [address] [place], [address] Carbon dioxide, total [Moles /volume] in Central venous bloodOrdered By: Franco Pérez on 07-13-2024 CO2 [Moles/Vol] 22.6 mmol/L 21.0-32.0 [facility] Chloride assayOrdered By: Kala Pérez on 07-13-2024 Chloride [Moles/Vol] 101 mmol/L 98-108 [facility] Comprehensive Metabolic Prof ilon 07-13-2024 Albumin [Mass/Vol] 3.8 g/dL Normal 3.4-4.8 [facility] Comment on above: Performed By: #### L 501.5200, L500.4050, L100.0100, L501.2300 ####[facility] [address] [place], [address] Albumin/Globulin [Mass ratio] 1.1 {ratio} Normal 0.9-2.4 [facility] Comment on above: Performed By: #### L 501.5200, L500.4050, L100.0100, L501.2300 ####[facility] [address] [place], [address] ALK PHOS 104 U/L Normal 40-129 [facility] Comment on above: Performed By: #### L 501.5200, L500.4050, L100.0100, L501.2300 ####[facility] [address] [place], [address] ALT [Catalytic activity/Vol] 23 U/L Normal <=46 [facility] Comment on above: Performed By: #### L 501.5200, L500.4050, L100.0100, L501.2300 ####[facility] [address] [place], [address] AST [Catalytic activity/Vol] 21 U/L Normal <=37 [facility] Comment on above: Performed By: #### L 501.5200, L500.4050, L100.0100, L501.2300 ####[facility] [address] [place], [address] Bilirubin [Mass/Vol] 1.38 mg/dL High 0.00-1.30 [facility] Comment on above: Performed By: #### L 501.5200, L500.4050, L100.0100, L501.2300 ####[facility] [address] [place], [address] BUN/CRE 26.3 RATIO High 10-20 [facility] Comment on above: Performed By: #### L 501.5200, L500.4050, L100.0100, L501.2300 ####[facility] [address] [place], [address] Calcium [Mass/Vol] 10.2 mg/dL Normal 7.6-11.0 [facility] Comment on above: Performed By: #### L 501.5200, L500.4050, L100.0100, L501.2300 ####[facility] [address] [place], [address] Chloride [Moles/Vol] 101 mmol/L Normal 98-108 [facility] Comment on above: Performed By: #### L 501.5200, L500.4050, L100.0100, L501.2300 ####[facility] [address] [place], [address] CO2 [Moles/Vol] 22.6 mmol/L Normal 21.0-32.0 [facility] Comment on above: Performed By: #### L 501.5200, L500.4050, L100.0100, L501.2300 ####[facility] [address] [place], [address] Creatinine [Mass/Vol] 1.06 mg/dL Normal 0.70-1.20 [facility] Comment on above: Performed By: #### L 501.5200, L500.4050, L100.0100, L501.2300 ####[facility] [address] [place], [address] ECRCL 93.64 ml/min Normal 50-250 [facility] Comment on above: Performed By: #### L 501.5200, L500.4050, L100.0100, L501.2300 ####[facility] [address] [place], [address] GAP 13 Normal 5-15 [facility] Comment on above: Performed By: #### L 501.5200, L500.4050, L100.0100, L501.2300 ####[facility] [address] [place], [address] GFR/1.73 sq M.predicted among non-blacks MDRD (S/P/Bld) [Vol rate/Area] 75 mL/min/{1.73_m2} Normal >60 [facility] Comment on above: Result Comment: mL/m in/1.73m2 CKD-EPI Creatinine Equation (2020) Performed By: #### L 501.5200, L500.4050, L100.0100, L501.2300 ####[facility] [address] [place], [address] Globulin (S) [Mass/Vol] 3.5 g/dL Normal 2.2-4.2 [facility] Comment on above: Performed By: #### L 501.5200, L500.4050, L100.0100, L501.2300 ####[facility] [address] [place], [address] Glucose [Mass/Vol] 203 mg/dL High 70-99 [facility] Comment on above: Performed By: #### L 501.5200, L500.4050, L100.0100, L501.2300 ####[facility] [address] [place], [address] Potassium [Moles/Vol] 4.1 mmol/L Normal 3.3-5.1 [facility] Comment on above: Performed By: #### L 501.5200, L500.4050, L100.0100, L501.2300 ####[facility] [address] [place], [address] Sodium [Moles/Vol] 137 mmol/L Normal 133-145 [facility] Comment on above: Performed By: #### L 501.5200, L500.4050, L100.0100, L501.2300 ####[facility] [address] [place], [address] T PROT 7.3 g/dL Normal 5.9-8.4 [facility] Comment on above: Performed By: #### L 501.5200, L500.4050, L100.0100, L501.2300 ####[facility] [address] [place], [address] Urea nitrogen [Mass/Vol] 28 mg/dL High 4-19 [facility] Comment on above: Performed By: #### L 501.5200, L500.4050, L100.0100, L501.2300 ####[facility] [address] [place], [address] Eosinophil percentageOrdered By: Franco Pérez on 07-13-2024 Eosinophils/100 WBC (Bld) 2.0 % 0-5 [facility] Erythrocyte distribution wid th (RBC) [Ratio]Ordered By: Franco Pérez on 07-13-2024 Erythrocyte distribution width (RBC) [Entitic vol] 46.4 fL High 35.1-43.9 [facility] Erythrocyte distribution wid th ratioOrdered By: Franco Pérez on 07-13-2024 Erythrocyte distribution width (RBC) [Ratio] 13.8 % 11.6-14.6 [facility] Estimation of creatinine say aranceOrdered By: Franco Pérez on 07-13-2024 Estimated Creatinine Clearance Calc 93.64 ml/min 50-250 [facility] GFR/1.73 sq M.predicted carli g non-blacks MDRD (S/P/Bld) [Vol rate/Area]Ordered By: Franco Anderson on 07-13-2024 Estimated GFR (MDRD) Non-Af Amer 75 >60 [facility] Comment on above: mL/min/1.73m2 CKD-EP I Creatinine Equation (2020) Hematocrit Auto (Bld) [Volum e fraction]Ordered By: Franco Anderson on 07-13-2024 Hematocrit (Bld) [Volume fraction] 44.1 % 40-54 [facility] Hemoglobin measurementOrdere d By: Franco Anderson on 07-13-2024 Hemoglobin (Bld) [Mass/Vol] 14.3 g/dL 13.0-16.5 [facility] Immature granulocytes/100 WB C Auto (Bld)Ordered By: Franco Anderson on 07-13-2024 Immature granulocytes/100 WBC (Bld) 1.200 % High 0.0-0.9 [facility] Comment on above: IG% - Immature Granu locytes (promyelocytes, myelocytes and metamyelocytes) > 1% indicates that a LEFT SHIFT is Present. Laboratory - Chemistry and C hemistry - challengeOrdered By: Franco Justin on 07-13-2024 AST [Catalytic activity/Vol] 21 U/L <38 [facility] Lymphocytes Auto (Unsp spec) [#/Vol]Ordered By: [facility] on 07-13-2024 Lymphocytes (Bld) [#/Vol] 0.88 10*3/uL 0.83-4.51 [facility] Lymphocytes/100 WBC Auto (Un sp spec)Ordered By: [facility] on 07-13-2024 Lymphocytes/100 WBC (Bld) 10.0 % Low 19-41 [facility] MCV (mean corpuscular volume ) determinationOrdered By: [facility] on 07-13-2024 MCV (RBC) [Entitic vol] 91.5 fL 80-94 [facility] Magnesiumon 07-13-2024 Magnesium [Mass/Vol] 1.8 mg/dL Normal 1.5-2.2 [facility] Comment on above: Performed By: #### L 501.5200, L500.4050, L100.0100, L501.2300 ####[facility] [address] [place], [place], [address] Magnesium (Unsp spec) [Mass/ Vol]Ordered By: Franco Pérez on 07-13-2024 Magnesium [Mass/Vol] 1.8 mg/dL 1.5-2.2 [facility] Mean corpuscular hemoglobin (MCH) determinationOrdered By: Franco Pérez on 07-13-2024 MCH (RBC) [Entitic mass] 29.7 pg 27.0-32.0 [facility] Mean corpuscular hemoglobin concentration (MCHC) determinationOrdered By: Franco Pérez on 07-13-2024 MCHC (RBC) [Mass/Vol] 32.4 g/dL 32-36 [facility] Mean platelet volume determi nationOrdered By: Franco Pérez on 07-13-2024 Platelet mean volume (Bld) [Entitic vol] 11.7 fL 6.2-12.0 [facility] Monocyte percentageOrdered B y: Franco Pérez on 07-13-2024 Monocytes/100 WBC (Bld) 7.0 % 0-10 [facility] Neutrophil percentageOrdered By: Franco Pérez on 07-13-2024 Neutrophils/100 WBC (Bld) 79.2 % High 47-70 [facility] Nucleated red blood cell per centageOrdered By: Franco Pérez on 07-13-2024 Nucleated RBC/100 WBC (Bld) [Ratio] 0 % 0-5 [facility] Oncology Visit Reporton 06-24 Oncology Visit Report Normal [facility] Phosphoruson 07-13-2024 Phosphate [Mass/Vol] 3.3 mg/dL Normal 2.7-4.5 [facility] Comment on above: Performed By: #### L 501.5200, L500.4050, L100.0100, L501.2300 ####[facility] [address] [facility] [place], [address] Platelet countOrdered By: Kala Pérez on 07-13-2024 Platelets (Bld) [#/Vol] 178 10*3/uL 150-450 [facility] Potassium (Unsp spec) [Mass/ Vol]Ordered By: Franco Pérez on 07-13-2024 Potassium [Moles/Vol] 4.1 mmol/L 3.3-5.1 [facility] RBC Auto (Bld) [#/Vol]Ordere d By: Franco Pérez on 07-13-2024 RBC (Bld) [#/Vol] 4.82 10*6/uL 4.6-6.2 [facility] SP/HP.SP.Suzan 07-13-2024 SP/HP.SP.EV Normal [facility] Serum creatinine measurement (mass/volume)Ordered By: Franco Pérez on 07-13-2024 Creatinine [Mass/Vol] 1.06 mg/dL 0.70-1.20 [facility] Serum globulin measurementOr dered By: Franco Pérez on 07-13-2024 Globulin (S) [Mass/Vol] 3.5 g/dL 2.2-4.2 [facility] Serum glucose measurement (m ass/volume)Ordered By: Franco Pérez on 07-13-2024 Glucose [Mass/Vol] 203 mg/dL High 70-99 [facility] Serum or plasma alanine cabral otransferase (ALT) measurementOrdered By: Franco Pérez on 07-13-2024 ALT [Catalytic activity/Vol] 23 U/L <47 [facility] Serum or plasma albumin blaine urement (mass/volume)Ordered By: Franco Pérez on 07-13-2024 Albumin [Mass/Vol] 3.8 g/dL 3.4-4.8 [facility] Serum or plasma albumin/glob ulin mass ratioOrdered By: Franco Pérez on 07-13-2024 Albumin/Globulin [Mass ratio] 1.1 {ratio} 0.9-2.4 [facility] Serum or plasma alkaline zee sphatase measurementOrdered By: Franco Pérez on 07-13-2024 ALP [Catalytic activity/Vol] 104 U/L 40-129 [facility] Serum or plasma calcium blaine urement (mass/volume)Ordered By: Franco Pérez on 07-13-2024 Calcium [Mass/Vol] 10.2 mg/dL 7.6-11.0 [facility] Serum or plasma urea nitroge n measurement (mass/volume)Ordered By: Franco Pérez on 07-13-2024 Urea nitrogen [Mass/Vol] 28 mg/dL High 4- [facility] Serum phosphorus measurement Ordered By: Franco Pérez on 07-13-2024 Phosphorus Level 3.3 mg/dL 2.7-4.5 [facility] Sodium levelOrdered By: Jonathon Pérez on 07-13-2024 Sodium [Moles/Vol] 137 mmol/L 133-145 [facility] Surgery Visit Reporton 07-13 Surgery Visit Report Normal [facility] Total proteinOrdered By: Faheem Pérez on 07-13-2024 Protein [Mass/Vol] 7.3 g/dL 5.9-8.4 [facility] White blood cell (WBC) count Ordered By: Franco Pérez on 07-13-2024 WBC (Bld) [#/Vol] 8.8 10*3/uL 4.4-11.0 [facility] CXR for Line Placementon CXR for Line Placement Normal [facility] Discharge Instructionon 06-23 Discharge Instruction Normal [facility] MR/POSTOP.ANEon 07-09-2024 MR/POSTOP.ANE Normal [facility] MR/PEPRIEVG4wm 07-09-2024 MR/POSTOPAN2 Normal [facility] Operative Reporton Operative Report Normal [facility] Radiation Oncology Visiton 0 07-08-2024 Radiation Oncology Visit Normal [facility] Absolute neutrophil countOrd ered By: Ashly Laguerre on 07-06-2024 Neutrophils (Bld) [#/Vol] 6.2 10*3/uL 2.0-7.7 [facility] Anion gap in Serum or Plasma Ordered By: Ashly Laguerre on 07-06-2024 Anion gap [Moles/Vol] 12 mmol/L 5-15 [facility] BUN/creatinine ratioOrdered By: Ashly Laguerre on 07-06-2024 Urea nitrogen/Creatinine [Mass ratio] 15.2 mg/mg 10-20 [facility] Basophil percentageOrdered B y: Ashly Laguerre on 07-06-2024 Basophils/100 WBC (Bld) 0.8 % 0-1 [facility] Bilirubin, totalOrdered By: Ashly Laguerre on 07-06-2024 Bilirubin [Mass/Vol] 1.06 mg/dL 0.00-1.30 [facility] CBC W/Diff, Automatedon 06-23 Absolute Lymph 1.11 X10 3/uL Normal 0.83-4.51 [facility] Comment on above: Performed By: #### L 100.0100, L500.4050 ####[facility] [address] [place], [address] Absolute Neut 6.2 X10 3/uL Normal 2.0-7.7 [facility] Comment on above: Performed By: #### L 100.0100, L500.4050 ####[facility] [address] [place], [address] Basophils/100 WBC (Bld) 0.8 % Normal 0-1 [facility] Comment on above: Performed By: #### L 100.0100, L500.4050 ####[facility] [address] [place], [address] Eosinophils/100 WBC (Bld) 1.5 % Normal 0-5 [facility] Comment on above: Performed By: #### L 100.0100, L500.4050 ####[facility] [address] [place], [address] Erythrocyte distribution width (RBC) [Ratio] 14.1 % Normal 11.6-14.6 [facility] Comment on above: Performed By: #### L 100.0100, L500.4050 ####[facility] [address] [place], [address] Hematocrit (Bld) [Volume fraction] 43.2 % Normal 40-54 [facility] Comment on above: Performed By: #### L 100.0100, L500.4050 ####[facility] [address] [place], [address] Hemoglobin (Bld) [Mass/Vol] 14.1 g/dL Normal 13.0-16.5 [facility] Comment on above: Performed By: #### L 100.0100, L500.4050 ####[facility] [address] [place], [address] IG% 0.700 Normal 0.0-0.9 [facility] Comment on above: Result Comment: IG% - Immature Granulocytes (promyelocytes, myelocytes andmetamyelocytes) > 1% indicates that a LEFT SHIFT is Present. Performed By: #### L 100.0100, L500.4050 ####[facility] [address] [place], [address] Lymphocytes/100 WBC (Bld) 13.1 % Low 19-41 [facility] Comment on above: Performed By: #### L 100.0100, L500.4050 ####[facility] [address] [place], [address] MCH (RBC) [Entitic mass] 29.7 pg Normal 27.0-32.0 [facility] Comment on above: Performed By: #### L 100.0100, L500.4050 ####[facility] [address] [place], [address] MCHC (RBC) [Mass/Vol] 32.6 g/dL Normal 32-36 [facility] Comment on above: Performed By: #### L 100.0100, L500.4050 ####[facility] [address] [place], [address] MCV (RBC) [Entitic vol] 91.1 fL Normal 80-94 [facility] Comment on above: Performed By: #### L 100.0100, L500.4050 ####[facility] [address] [place], [address] Monocytes/100 WBC (Bld) 10.4 % High 0-10 [facility] Comment on above: Performed By: #### L 100.0100, L500.4050 ####[facility] [address] [place], [address] Neutrophils/100 WBC (Bld) 73.5 % High 47-70 [facility] Comment on above: Performed By: #### L 100.0100, L500.4050 ####[facility] [address] [place], [address] Nucleated RBC (Bld) [#/Vol] 0 10*3/uL Normal 0-5 [facility] Comment on above: Performed By: #### L 100.0100, L500.4050 ####[facility] [address] [place], [address] Platelet mean volume (Bld) [Entitic vol] 11.8 fL Normal 6.2-12.0 [facility] Comment on above: Performed By: #### L 100.0100, L500.4050 ####[facility] [address] [place], [address] Platelets (Bld) [#/Vol] 162 10*3/uL Normal 150-450 [facility] Comment on above: Performed By: #### L 100.0100, L500.4050 ####[facility] [address] [place], [address] RBC (Bld) [#/Vol] 4.74 10*6/uL Normal 4.6-6.2 [facility] Comment on above: Performed By: #### L 100.0100, L500.4050 ####[facility] [address] [place], [address] RDW SD 47.2 fl High 35.1-43.9 [facility] Comment on above: Performed By: #### L 100.0100, L500.4050 ####[facility] [address] [place], [address] WBC (Bld) [#/Vol] 8.5 10*3/uL Normal 4.4-11.0 [facility] Comment on above: Performed By: #### L 100.0100, L500.4050 ####[facility] [address] [place], [address] Absolute Neut Normal 2.0-7.7 [facility] Comment on above: Result Comment: @DUP LICATE ORDER Performed By: #### L 501.5200, L501.2300, L100.0100 ####[facility] [address] [place], [address] HCT Normal 40-54 [facility] Comment on above: Result Comment: @DUP LICATE ORDER Performed By: #### L 501.5200, L501.2300, L100.0100 ####[facility] [address] [place], [address] HGB Normal 13.0-16.5 [facility] Comment on above: Result Comment: @DUP LICATE ORDER Performed By: #### L 501.5200, L501.2300, L100.0100 ####[facility] [address] [place], [address] MCH Normal 27.0-32.0 [facility] Comment on above: Result Comment: @DUP LICATE ORDER Performed By: #### L 501.5200, L501.2300, L100.0100 ####[facility] [address] [place], [address] MCHC Normal 32-36 [facility] Comment on above: Result Comment: @DUP LICATE ORDER Performed By: #### L 501.5200, L501.2300, L100.0100 ####[facility] [address] [place], [address] MCV Normal 80-94 [facility] Comment on above: Result Comment: @DUP LICATE ORDER Performed By: #### L 501.5200, L501.2300, L100.0100 ####[facility] [address] [place], [address] NEUT% Normal 47-70 [facility] Comment on above: Result Comment: @DUP LICATE ORDER Performed By: #### L 501.5200, L501.2300, L100.0100 ####[facility] [address] [place], [address] PLT Normal 150-450 [facility] Comment on above: Result Comment: @DUP LICATE ORDER Performed By: #### L 501.5200, L501.2300, L100.0100 ####[facility] [address] [place], [address] RBC Normal 4.6-6.2 [facility] Comment on above: Result Comment: @DUP LICATE ORDER Performed By: #### L 501.5200, L501.2300, L100.0100 ####[facility] [address] [place], [address] RDW CV Normal 11.6-14.6 [facility] Comment on above: Result Comment: @DUP LICATE ORDER Performed By: #### L 501.5200, L501.2300, L100.0100 ####[facility] [address] [place], [address] RDW SD Normal 35.1-43.9 [facility] Comment on above: Result Comment: @DUP LICATE ORDER Performed By: #### L 501.5200, L501.2300, L100.0100 ####[facility] [address] [place], [address] WBC Normal 4.4-11.0 [facility] Comment on above: Result Comment: @DUP LICATE ORDER Performed By: #### L 501.5200, L501.2300, L100.0100 ####[facility] [address] [place], [address] CXR for Line Placementon CXR for Line Placement Normal [facility] Carbon dioxide, total [Moles /volume] in Central venous bloodOrdered By: Ashly Shade on 07-06-2024 CO2 [Moles/Vol] 23.2 mmol/L 21.0-32.0 [facility] Chloride assayOrdered By: Ty ra Shade on 07-06-2024 Chloride [Moles/Vol] 103 mmol/L 98-108 [facility] Comprehensive Metabolic Prof ilon 07-06-2024 Albumin [Mass/Vol] 4.0 g/dL Normal 3.4-4.8 [facility] Comment on above: Performed By: #### L 100.0100, L500.4050 ####[facility] [address] [place], [address] Albumin/Globulin [Mass ratio] 1.2 {ratio} Normal 0.9-2.4 [facility] Comment on above: Performed By: #### L 100.0100, L500.4050 ####[facility] [address] [place], [address] ALK PHOS 120 U/L Normal 40-129 [facility] Comment on above: Performed By: #### L 100.0100, L500.4050 ####[facility] [address] [place], [address] ALT [Catalytic activity/Vol] 21 U/L Normal <=46 [facility] Comment on above: Performed By: #### L 100.0100, L500.4050 ####[facility] [address] [place], [address] AST [Catalytic activity/Vol] 22 U/L Normal <=37 [facility] Comment on above: Performed By: #### L 100.0100, L500.4050 ####[facility] [address] [place], [address] Bilirubin [Mass/Vol] 1.06 mg/dL Normal 0.00-1.30 [facility] Comment on above: Performed By: #### L 100.0100, L500.4050 ####[facility] [address] [place], [address] BUN/CRE 15.2 RATIO Normal 10-20 [facility] Comment on above: Performed By: #### L 100.0100, L500.4050 ####[facility] [address] [place], [address] Calcium [Mass/Vol] 9.9 mg/dL Normal 7.6-11.0 [facility] Comment on above: Performed By: #### L 100.0100, L500.4050 ####[facility] [address] [place], [address] Chloride [Moles/Vol] 103 mmol/L Normal 98-108 [facility] Comment on above: Performed By: #### L 100.0100, L500.4050 ####[facility] [address] [place], [address] CO2 [Moles/Vol] 23.2 mmol/L Normal 21.0-32.0 [facility] Comment on above: Performed By: #### L 100.0100, L500.4050 ####[facility] [address] [place], [address] Creatinine [Mass/Vol] 1.28 mg/dL High 0.70-1.20 [facility] Comment on above: Performed By: #### L 100.0100, L500.4050 ####[facility] [address] [place], [address] ECRCL 77.55 ml/min Normal 50-250 [facility] Comment on above: Performed By: #### L 100.0100, L500.4050 ####[facility] [address] [place], [address] GAP 12 Normal 5-15 [facility] Comment on above: Performed By: #### L 100.0100, L500.4050 ####[facility] [address] [place], [address] GFR/1.73 sq M.predicted among non-blacks MDRD (S/P/Bld) [Vol rate/Area] 59 mL/min/{1.73_m2} Low >60 [facility] Comment on above: Result Comment: mL/m in/1.73m2 CKD-EPI Creatinine Equation (2020) Performed By: #### L 100.0100, L500.4050 ####[facility] [address] [place], [address] Globulin (S) [Mass/Vol] 3.3 g/dL Normal 2.2-4.2 [facility] Comment on above: Performed By: #### L 100.0100, L500.4050 ####[facility] [address] [place], [address] Glucose [Mass/Vol] 214 mg/dL High 70-99 [facility] Comment on above: Performed By: #### L 100.0100, L500.4050 ####[facility] [address] [place], [address] Potassium [Moles/Vol] 4.3 mmol/L Normal 3.3-5.1 [facility] Comment on above: Performed By: #### L 100.0100, L500.4050 ####[facility] [address] [place], [address] Sodium [Moles/Vol] 138 mmol/L Normal 133-145 [facility] Comment on above: Performed By: #### L 100.0100, L500.4050 ####[facility] [address] [place], [address] T PROT 7.4 g/dL Normal 5.9-8.4 [facility] Comment on above: Performed By: #### L 100.0100, L500.4050 ####[facility] [address] [place], [address] Urea nitrogen [Mass/Vol] 20 mg/dL High 4-19 [facility] Comment on above: Performed By: #### L 100.0100, L500.4050 ####[facility] [address] [place], [address] Eosinophil percentageOrdered By: Ashly Laguerre on 07-06-2024 Eosinophils/100 WBC (Bld) 1.5 % 0-5 [facility] Erythrocyte distribution wid th (RBC) [Ratio]Ordered By: Ashly Laguerre on 07-06-2024 Erythrocyte distribution width (RBC) [Entitic vol] 47.2 fL High 35.1-43.9 [facility] Erythrocyte distribution wid th ratioOrdered By: Ashly Laguerre on 07-06-2024 Erythrocyte distribution width (RBC) [Ratio] 14.1 % 11.6-14.6 [facility] Estimation of creatinine say aranceOrdered By: Ashly Laguerre on 07-06-2024 Estimated Creatinine Clearance Calc 77.55 ml/min 50-250 [facility] GFR/1.73 sq M.predicted carli g non-blacks MDRD (S/P/Bld) [Vol rate/Area]Ordered By: Ashly Laguerre on 07-06-2024 Estimated GFR (MDRD) Non-Af Amer 59 Low >60 [facility] Comment on above: mL/min/1.73m2 CKD-EP I Creatinine Equation (2020) Hematocrit Auto (Bld) [Volum e fraction]Ordered By: Ashly Laguerre on 07-06-2024 Hematocrit (Bld) [Volume fraction] 43.2 % 40-54 [facility] Hemoglobin measurementOrdere d By: Ashly Laguerre on 07-06-2024 Hemoglobin (Bld) [Mass/Vol] 14.1 g/dL 13.0-16.5 [facility] Immature granulocytes/100 WB C Auto (Bld)Ordered By: Ashly Laguerre on 07-06-2024 Immature granulocytes/100 WBC (Bld) 0.700 % 0.0-0.9 [facility] Comment on above: IG% - Immature Granu locytes (promyelocytes, myelocytes and metamyelocytes) > 1% indicates that a LEFT SHIFT is Present. Laboratory - Chemistry and C hemistry - challengeOrdered By: Ashly Laguerre on 07-06-2024 AST [Catalytic activity/Vol] 22 U/L <38 [facility] Lymphocytes Auto (Unsp spec) [#/Vol]Ordered By: Ashly Laguerre on 07-06-2024 Lymphocytes (Bld) [#/Vol] 1.11 10*3/uL 0.83-4.51 [facility] Lymphocytes/100 WBC Auto (Un sp spec)Ordered By: Ashly Laguerre on 07-06-2024 Lymphocytes/100 WBC (Bld) 13.1 % Low 19-41 [facility] MCV (mean corpuscular volume ) determinationOrdered By: Ashly Laguerre on 07-06-2024 MCV (RBC) [Entitic vol] 91.1 fL 80-94 [facility] Magnesiumon 07-06-2024 Magnesium [Mass/Vol] 1.9 mg/dL Normal 1.5-2.2 [facility] Comment on above: Order Comment: ADD O N FROM TODAYS LAB - THANKS Performed By: #### L 501.5200, L501.2300, L100.0100 ####[facility] [address] [place], [address] Magnesium (Unsp spec) [Mass/ Vol]Ordered By: rFanco Pérez on 07-06-2024 Magnesium [Mass/Vol] 1.9 mg/dL 1.5-2.2 [facility] Mean corpuscular hemoglobin (MCH) determinationOrdered By: Ashly Laguerre on 07-06-2024 MCH (RBC) [Entitic mass] 29.7 pg 27.0-32.0 [facility] Mean corpuscular hemoglobin concentration (MCHC) determinationOrdered By: Ashly VallesShade on 07-06-2024 MCHC (RBC) [Mass/Vol] 32.6 g/dL 32-36 [facility] Mean platelet volume determi nationOrdered By: Ashly VallesShade on 07-06-2024 Platelet mean volume (Bld) [Entitic vol] 11.8 fL 6.2-12.0 [facility] Monocyte percentageOrdered B y: Ashly Laguerre on 07-06-2024 Monocytes/100 WBC (Bld) 10.4 % High 0-10 [facility] Neutrophil percentageOrdered By: Ashly Laguerre on 07-06-2024 Neutrophils/100 WBC (Bld) 73.5 % High 47-70 [facility] Nucleated red blood cell per centageOrdered By: Ashly Laguerre on 07-06-2024 Nucleated RBC/100 WBC (Bld) [Ratio] 0 % 0-5 [facility] Oncology Visit Reporton 06-23 Oncology Visit Report Normal [facility] Phosphoruson 07-06-2024 Phosphate [Mass/Vol] 3.0 mg/dL Normal 2.7-4.5 [facility] Comment on above: Order Comment: ADD O N FROM TODAYS LAB - THANKS Performed By: #### L 501.5200, L501.2300, L100.0100 ####[facility] [address] [place], [address] Platelet countOrdered By: Ty ra Laguerre on 07-06-2024 Platelets (Bld) [#/Vol] 162 10*3/uL 150-450 [facility] Potassium (Unsp spec) [Mass/ Vol]Ordered By: Ashly Laguerre on 07-06-2024 Potassium [Moles/Vol] 4.3 mmol/L 3.3-5.1 [facility] RBC Auto (Bld) [#/Vol]Ordere d By: Ashly VallesShade on 07-06-2024 RBC (Bld) [#/Vol] 4.74 10*6/uL 4.6-6.2 [facility] Serum creatinine measurement (mass/volume)Ordered By: Ashly Laguerre on 07-06-2024 Creatinine [Mass/Vol] 1.28 mg/dL High 0.70-1.20 [facility] Serum globulin measurementOr dered By: Ashly Laguerre on 07-06-2024 Globulin (S) [Mass/Vol] 3.3 g/dL 2.2-4.2 [facility] Serum glucose measurement (m ass/volume)Ordered By: Ashly Laguerre on 07-06-2024 Glucose [Mass/Vol] 214 mg/dL High 70-99 [facility] Serum or plasma alanine cabral otransferase (ALT) measurementOrdered By: Ashly Laguerre on 07-06-2024 ALT [Catalytic activity/Vol] 21 U/L <47 [facility] Serum or plasma albumin blaine urement (mass/volume)Ordered By: Ashly Laguerre on 07-06-2024 Albumin [Mass/Vol] 4.0 g/dL 3.4-4.8 [facility] Serum or plasma albumin/glob ulin mass ratioOrdered By: Ashly Laguerre on 07-06-2024 Albumin/Globulin [Mass ratio] 1.2 {ratio} 0.9-2.4 [facility] Serum or plasma alkaline zee sphatase measurementOrdered By: Ashly Laguerre on 07-06-2024 ALP [Catalytic activity/Vol] 120 U/L 40-129 [facility] Serum or plasma calcium blaine urement (mass/volume)Ordered By: Ashly Laguerre on 07-06-2024 Calcium [Mass/Vol] 9.9 mg/dL 7.6-11.0 [facility] Serum or plasma urea nitroge n measurement (mass/volume)Ordered By: Ashly Laguerre on 07-06-2024 Urea nitrogen [Mass/Vol] 20 mg/dL High 4-19 [facility] Serum phosphorus measurement Ordered By: Franco Pérez on 07-06-2024 Phosphorus Level 3.0 mg/dL 2.7-4.5 [facility] Sodium levelOrdered By: Ashly Laguerre on 07-06-2024 Sodium [Moles/Vol] 138 mmol/L 133-145 [facility] Total proteinOrdered By: Sarai Laguerre on 07-06-2024 Protein [Mass/Vol] 7.4 g/dL 5.9-8.4 [facility] White blood cell (WBC) count Ordered By: Ashly Laguerre on 07-06-2024 WBC (Bld) [#/Vol] 8.5 10*3/uL 4.4-11.0 [facility] 12 Lead EKGon 07-02-2024 12 Lead EKG Normal [facility] CXR for Line Placementon CXR for Line Placement Normal [facility] Discharge Instructionon 06-23 Discharge Instruction Normal [facility] MR/POSTOP.ANEon 07-02-2024 MR/POSTOP.ANE Normal [facility] MR/WVZVBASU3ue 07-02-2024 MR/POSTOPAN2 Normal [facility] Operative Reporton Operative Report Normal [facility] Oncology Visit Reporton Oncology Visit Report Normal [facility] MR/PAT.ANEon 06-23-2024 MR/PAT.ANE Normal [facility] CREATININE FINGERSTICKon Creatinine [Mass/Vol] 1.1 mg/dL Normal 0.70-1.30 [facility] Comment on above: Performed By: #### L 9100.0200 ####[facility] [id number] [place], [place], [id number] EGFR WB > 60.0000 Normal >60 [facility] Comment on above: Performed By: #### L 9100.0200 ####[facility] [address] [place], [place], [address] Creatinine measurement at dsideOrdered By: Cipriano Layne on 06-19-2024 Creatinine [Mass/Vol] 1.1 mg/dL 0.70-1.30 [facility] EGFROrdered By: Cipriano delgado on 06-19-2024 Bedside Estimated GFR (eGFR) > 60.0000 mL/min >60 [facility] GFR/1.73 sq M.predicted among non-blacks MDRD (S/P/Bld) [Vol rate/Area] mL/min/{1.73_m2} >60 [facility] Progress Noteson 06-11-2024 [employer] Authentication Interface Message Text Teaching Physician Note: I saw and evaluated the patient. I personally obtained the jennings and critical portions of the history and physical exam. I reviewed the resident's documentation and discussed the patient with the resident. I agree with the resident's medical decision making as documented in the resident's note. Franco Sanchez DMD Normal [facility] Progress Noteson 06-05-2024 [employer] Worker Authentication Interface Message Text Teaching Physician Note: I saw and evaluated the patient. I personally obtained the jennings and critical portions of the history and physical exam. I reviewed the resident's documentation and discussed the patient with the resident. I agree with the resident's medical decision making as documented in the resident's note. Franco Sanchez DMD Normal [facility] Progress Noteson 06-04-2024 [employer] Worker Authentication Interface Message Text OMFS PATIENT VISIT CHIEF COMPLAINT: Toothache HISTORY OF PRESENT ILLNESS: Pt is a 73yoM, PMH remarkable for [place] tumor, WALE, oropharyngeal SCC, hx of tobacco use, DM2, hx of PE (20mg xarelto 1x/day pt reports their beater operator gave them clearance for a 5day drug holiday for their xarelto for dental surgery and pt is going to have a copy of that clearance letter faxed to [facility] referred to [facility] clinic for full mouth extractions prior to [...] PE (20mg xarelto 1x/day pt reports their beater operator gave them clearance for a 5day drug holiday for their xarelto for dental surgery and pt is going to have a copy of that clearance letter faxed to [facility]), referred to [facility] clinic for 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 Pt requires extraction of remaining dentition, alveoplasty, and removal of mandibular joaquim due to chronic periodontitis and prior to chemo/radiation tx. PLAN: Our plan is to extract all remaining dentition, perform alveoplasty, and removal of mandibular joaquim at next appt. Delbert Molina, DMD Normal [facility] [employer] Worker Authentication Interface Message Text Normal [facility] Surgery Visit Reporton 06-03 Surgery Visit Report Normal [facility] Oncology Visit Reporton 05-23 Oncology Visit Report Normal [facility] Telephone Encounteron 2024 [employer] Work[employer] Authentication Interface Message Text Spoke with patient, who needs to get back in with oral surgery for extractions before cancer treatment. Reached out to schedulers, who scheduled patient for 06/04. Cindy Newell RN Normal [facility] [employer] Worker Authentication Interface Message Text Hi Dr. Packer [...] Phone numbers Thank you, Danielle Normal [facility] Addendum Noteon 05-27-2024 [employer] Work[employer] Authentication Interface Message Text Addended by: CINDY NEWELL on: 05/27/2024 11:50 AM Modules accepted: Orders Normal [facility] Radiation Oncology Visiton 0 05-26-2024 Radiation Oncology Visit Normal [facility] Telephone Encounteron 2024 [employer] Work[employer] Authentication Interface Message Text PET scan report faxed to [place]. Cindy Newell RN Normal [facility] Telephone Encounteron 2024 [employer] Worker Authentication Interface Message Text Brief ENT Telephone Note Called patient to discuss recent PET results (05/22/24), which showed IMPRESSION: 1. Hypermetabolic central base of tongue mass consistent with biopsy-proven squamous cell carcinoma. 2. Hypermetabolic right cervical lymphadenopathies as described above, consistent with regional metastatic disease. 3. No metabolic evidence of distant metastatic disease. Plan for TREATING INSPECTOR as previously planned. All questions answered and pt verbalized understanding of the plan. Simon Packer MD Otolaryngology - Head and Neck Surgery [facility] Pager: [phone] Normal [facility] GLUCOSE, FINGERSTICK-IN OFFI CEon 05-22-2024 Glucose [Mass/Vol] 197 mg/dL High 74-109 [facility] Comment on above: Performed By: #### [id number] ####NURSING GLUCOSE [id number] [facility] [place], [address] PET SKULL TO THIGH INITIALon 05-22-2024 PET [...] distant metastatic disease. MACRO: None Normal [facility] Progress Noteson 05-22-2024 [employer] Worker Authentication Interface Message Text . Normal The [employer] Interface Message Text ----- Wednesday, May 22, 2024 at 4:22:24 PM ----- ----- Provider: [id number] - Resident Cabrera -- Clinic: [place] ----- INITIAL/COMPREHENSIVE EXAM Patient presents for an [...] ----- Provider: Graciela Weems DDS -- Clinic: [place] ----- Normal [facility] Tumor Board Noteon [employer] Worker Authentication Interface Message Text Cancer Type: General [...] but is not scheduled. Tentative stage is [id number]. Surgical options include surgery to resect primary [...] and review of the literature. Normal [facility] Telephone Encounteron 2024 [employer] Worker Authentication Interface Message Text Reports printed individually and faxed, notified Anila. Will also send PET report after 05/22/24. Cindy Newell RN Normal [facility] Progress Noteson 05-13-2024 [employer] Worker Authentication Interface Message Text Documentation: Mode: In [...] sandwich Snack: none D: roast beef gyro, canadian fries Snack: none Beverages: water (60-80+ oz), coffee (3 pots) Shopping and cooking: self Dining out: 3-4 Days a week. Household size: 2 Food Assistance: None Adequate food supply and adequate cooking and storing equipment: all Social History: Substance use: none Smoking: none Alcohol: none Physical Activity: Aerobic (treadmill/recumbent bike) Frequency: 20-25 min Duration: 2-3x/week Nutrition Focused Physical Exam: Muscle loss: [place] region: well defined Clavicle region: not visible/not prominent Scapula region: no depressions Hand: muscle bulges Anterior thigh: well rounded Posterior calf: well developed Fat loss: Orbital region: bulged fat pads Tricep/bicep region: ample fat tissue Rib/back region: chest full/ribs do not show Edema: none Estimated Needs: 0046-6721 kcal/d 30-35 kcal/kg Adj BW 131-152 g pro/d 1.3-1.5 g pro/kg Adj BW 5973-2661 mL/d fluid Assessment for Malnutrition: Not at [...] tx concurrent chemoradiation, closer to home in [place]. Pt reports good appetite and eating well throughout the day. Mostly drinking water and coffee. Denies any pain or difficulties swallowing, taste changes, or ope (more content not included)... Normal [facility] Used [employer] Worker Authentication Interface Message Text Consent signed by patient for baseline [facility] blood draw. Attempted on L hand with no success. Jeannette ARTEAGA in to see patient, able to draw from EMA with butterfly needle. Will be sent today via [facility] to [facility]. Will repeat after treatment. Cindy Newell RN Normal [facility] Used [employer] Worker Authentication Interface Message Text OTOLARYNGOLOGY - HEAD AND NECK SURGERY CLINIC NOTE CHIEF COMPLAINT: Chief Complaint Patient presents with Post-op Follow-up Tongue biopsy HPI: Robert Ron is a 73 year old male with PMH significant for COPD, WALE on CPAP, hx of PE (2019) hx of left parotidectomy about 10 yrs (Dr. Dubois) who presents today, 05/13/2024, at the [facility] for follow up regarding right neck [...] LNP, pres. free, 50 mcg/0.5 mL dose (HZR=037) 01/24/2023, 01/21/2024 Influenza, injectable, high dose seasonal, trivalent, preservative free (MLA=081) 12/19/2016 Influenza, injectable, quadrivalent, preservative (JWM=640) 12/22/2020, 01/03/2023 Influenza, injectable, trivalent, preservative (RCK=826) 01/07/2024 Influenza, novel Y9G0-04, injectable, preservative-free (BXJ=472) 02/03/2009 Moderna Monovalent (12+ yrs) COVID-19 vaccine, mRNA, spike protein, LNP, PF, 100 mcg/0.5 mL (WEL=919) 06/24/2020, 07/22/2020 Pneumococcal conjugate 20 valent (PCV20), polysaccharide COI896 conjugate, adjuvant, PF (JUM=827) 01/21/2024 Respiratory syncytial virus (RSV), vaccine, recombinant, protein subunit RSV prefusion F, adjuvant reconstituted, 0.5 mL, preservative free (OXC=729) 01/24/2023 Zoster Recombinant (RZV,Shingles) (BRN=751) 08/20/2019 PHYSICAL EXAM: Vital Signs: Pulse 59 [...] Faith (more content not included)... Normal [facility] Used [employer] Ready Worker Authentication Interface Message Text Patient identfied by name and date of Pharmacy updated Vital signs taken Patent in exam room ready for MD Normal [facility] SPECIMEN FOR SURGICAL PATHOr dered By: Sun Allen on 05-12-2024 Case Report Surgical Pathology R eport Case: [id number] Authorizing Provider: Simon Packer MD Collected: 05/08/2024 0803 Ordering Location: [facility] Main OR Received: 05/08/2024 0810 Pathologist: Sun Allen MD Specimens: A) - Tongue, biopsy of right base of tongue B) - Tongue, Biopsy of base of tongue [facility] Work Phone: Clinical Information [facility] Work Phone: Final Diagnosis i2udbZNeFZJma2waJUVz bGFuZz EwMzNcZnRuYmpcdWMxIHtccnRm MYtdcIyeMQC4FLTsCO9ltSxrgO i4cXxnQXRfgpN8qIEzATval5ow WVL1a1wswxohGDKvSYqyMu7ruW XtiZzdObQiOOBlSCj2iE85CCRv sH0hsGMnTKm7DUDusYCuqdRfJm OaRUOiaUYrmKQ2EIMzOD5vjuiz RPenIBbaOPEsxkG1VGHpkDZhY6 PgSATqWG8ohjgvNZM0XWrfCEAq WZE7NkBmABTej9Fnrqc2FpDsuL RyPYhxyILrwuwzZAQdZbEfJG5i DvKtxfm2YYhpVmetzWF4BR7cNP OqR2q5KHSke9Rbd1VckU6yX5Dw IlxwYXJcYjBccGFyIElOVkFTSV LUKJSVW2ZDGSQNVJFFATYPKpNP RFXWYFPZLCGNRA6CAcOGRCsOSK QPSlBFVo0YTNZ1aHTuOJMdH3Qj JXTfk02vPUSatSEsRVEjSsEeqw 79sj6vazRtIH5xWUNtafniNSf1 ILP1UBfyNP8wBC2iB9Cic3tfVc gnJUJqLUqeGLNmOwFNYmShGN0i M8OkQHUWuQ7gn2qjb6EiBdEbXG SsUgI9d12ziCCpWSBogtnmTZzs CGHdNA3NPPPUOcEiUE4DHojNCE RJRkZFUkVOVElBVEVEIFNRVUFN Q2MCWVBWVUgnS2SID9zNE44TNN dpdGggdWxjZXJhdGlvbiBhbmQg gyZyin7krXKySGizSILiVmWjp1 jvj7KpHVDtVcEotn4kbU8bzbCo dVlnkCzroUNgj7Hbu23bK4xvpb n5YRzafT0ui7pcVxRbB9JkVWrc lQHoc8gxs7PmR1zyiWoozSR1YF Fnk5CtdGDhFVsxWDKhpHWxHZNp dj26OYK5GsYbi4W9RXGdXhZmJP VgAQ0ufNezMLLpQK1kYOEaR4sk mX6udul4LxAgIJShQsU1DIOaev J8Oyl9SXHxPGxaf5vnc5CvLDQz UZp1eIpsTeUvTVVtj7ihcwSwXy XzBRPvFUTwXAIeiVVbE352j3nu i8iwmlEqcJH2VDIoRDR8ZXunmv LghzG2CLxjwXXyVkL9DBpfvzTk LNZrF6EpYO89FKwerMRpFTWhI7 xyZWQwXGdyZWVuMFxibHVlMCA7 pEtrj2O7fYQgwUByuOhkFnLrNa EfPqHTl1FlOAt9hUbgO2KgCAIl UuH2jCQhIRUtBFlkLFUsUEJaqo U8mL20OErtcyA3xLSdk9Xsm39e c021bQ9neQZkOEU3XZYmXNIgbH SnUHVxFZK5FPGefSBlC7pcZPPw QL8pvdbzHMjcXMwgTQZibDR2OA FscFSpQ0AaINHjEKheIRXrzoi5 ByOgQe1mxUTlgTfcMTywe8duz4 wtjPKeZuk6KQHnLyUkSwzuXBuq z3Qpa7twHNVcjr3fVIR3oDWuhK rfj9Z9lFWzOVAasGAfiuGbFFVh AcV3KEinZT6wcv35BYGpIXC0ak 6bnMFhnFcwkaYpnSNiAGokZ2Ww FQRmr855NXSaF8XdIIDdk2J1ki UaAvJvBRBazUU1rsL0BFWwRPi1 dMGnjyK5wwQtoMDlP2xmfW7oFT GyEI9dcvgjr1yjUXdlRYpdOVTd tRU1myF0PAEtkJRsJ7LdyX7xIE EzYIdyJWQsams2OvDlDg5mcVNm eTcyMFxzYmtwYWdlXHBnbmNvbn RccGduZGVjXHBsYWluXHBsYWlu NPVgGTFpAsBipDgaqUrgnP4yQy KoItHhVoleBB5tWIRtW8lnbLQw MHVpEEEqH6seAlDltV9qvVhnGM xmczIyXHBhclxwbGFpblxmMVxm vaMxJUoxdutnDIWdSLwsY7mzRm GnEENlhQsxIWyqt3GwCRJwAYHb TnKlRCvxA9Nao02sE5ZajUzaD3 iqvdAcFL77dEIbzBDNQS28sGnc C9YpEEOylykySUHrc99cIGCyCS cdEkPtKO2isUWhJLIhnbajjWUg tpfiJTuskfI9MFkiividLDYhSX lpK8ejXyBgQLMqbJpmBUqoy6Bn JTGePXFsQrsktsD7CSqhMFTqQR N7gID1SLZxZDYdWEPcLXLzn56v bDn1IHPixnM7T1PoZXI3bDWoTI mjY11gj2OaPoQzdtXewGD9rZ0o RJ7zICXtEWVyLe35SSXjsNOfyH 6kygkjBNQbucOraKZ0BMAyRS2f CIJzJRM3qGYpNmjfJGokKTdsI7 3ge7gzHHOwNL0rKSUgVEtrYJQd XGZzMjJcbGFuZzEwMzNcaGljaF niATwnXxHdUURdKKavX7tdUjVp ZnMyMlxwYXJccGFyfX0= [facility] Work Phone: Gross Description b7aqmZZwZREplMRmVHum Nlxhbn YgMAAzfTMkQ8ZqufzcLEfeJV7p NN4omTgdlJFihBEeOLSiLwGlo2 zii758qCVsh9gnMTNYvijxlTz6 gHlcR01yc5N5SgatO09tjMDjBA L5JMYpJLUvcPKpUVOzPHH2YPQh aNDmU1dxNGSnFN7ljzixCLbdJX jcBCXxdJK7NLBzlSSsD1UjBZPb KAfkZAXjqmh2JhBzHs4wrHNpzU cyMFxwYXJkXHBsYWluXGZzMjAg WJ0cAmSvoAwblLYpb63xDKUluv OpiU0dO1QxCEEzbB4uy4jkMqrd rSA7SI2vYVTze6Usj1RlnQ6eB1 DoXn3ouOIfRXRhyrPLuKBdw3Lx U7gsXF6luEBiziWcNXl9JGTmPt Dcw2lgqA9je17nCCXnvdTfwI9g zwfwwSFvSNhcVMX3uTWlULRoNT SvPIXhHM60J1GupmCtYOOqibJo bWVkaWNhbCByZWNvcmQgbnVtYm PmDcNWVPHhFGAlGUBlXmBxe6Dh cESgJhMeAUVtIH7eNWAxtsq2UF GfACTsUQUhmAOgpV9zjtBuz95o qOP2maHkCyPaxXk9zXUuWVPbty FrmUOvzZMlw5FxpOtlye61IS8m ULUqWjYuxQqns5TpBS1pGYL5ho zqGaYsSKeeUE86JUaiVH1gXHTq RVcaRCJfV8HxY0A4UAbwMDPkuR HfCWReZ3Lae14fStAaWZHSdiS2 e1AhRTVnmiizCCJhJNPrVWYKwP bfzDIrIGAdJI4dHGMmgox8MKRj GDkenHAbGZMvxjPOKwNUZQC9xA GyrMwiasXiWTVnZKP9m36foARc YARwm0PjoWCnTnKjBLRfXQ3vDD Mdbva7JCEuPGXixzfpIURiEMtf GHUlUIQwyWDeSGcrJDArP2Phpp IpIAUvOSNmENsfQA8jBWSjl993 AKrkUBSsBGioUwUsKLNoy1m8iT F1jEYkbSN2dSFnrCvfYO2dyWMj NI2gVA4fPLvqNLzogrErd2FvJY 49zAJnke1cWAMen5FmYAGiDELk lT4yd1efe5IhHlVfLPNwFcV5h7 2vzYBmFjHOhPUma0SwP1rnLZ4c X21uh2keyJTgq7HzrZDbrWtchA IvJpQqR70svpLcNP4fFANfrnpg sAOdTSEma8C2HUPod8L2YZInUY RciCPwdxjzLAK0MZJpFbX7XMIn BpLzfBArzwMvB4nxNYsnmIRfMN GdhhnxHINrH6TqeGaempD5MIBA iuI7p8BrUDYlgqanFWBsPfBfMD FEpZ7jb7zuz4SwYiUcGUHyVmB3 p31yzQBuAJwbAOXjxwobWPPfuL FyXHBhcmQgVmluYXlhayBBcnlh bCwgTURccGFyfQ== [facility] Work Phone: Immunohistochemistry h5rkyAKpCPCkqJHfITx wNlxhbn RjXCZqmRFqD0KhunzwHIcrHY0d SG6clAvqlLGgzPUqXAJuKtVhy3 eji335kFHue3trUCDAwccmrAq8 hUdvN49ii2J8GuihO9gaZNJaRV dyZWVuMFxibHVlMDtccmVkMTEx QDzzCJFqQEBdGIStcRJpWKW3pL tzDYXyhqjhVwX7LBdlCWXpyehd CLb2LPkxEMHldVL6LLIxwUBkM2 FhQVYwOO0rdpn0PZY2NJorNAOe ObA0FMNhqTNeOITxyAwdNIvpu9 41ULA8MgWpFGWxuuZefEioiF5w SvsoudRbRGfLNFWIE6aBM6GWE0 oTWOcECROKPYJWKULEGHN6LRHw ydalQJOySY7sLV77FKKixoE6LH Hye50eZE1mcVSbCExrZiQnOEhq fsetCDrhYBBnAZRNuoUmJd4laN zllKZnSCEfZJEaUdaxF0VvNOSe WI6nkLLquoGzTTCmDQDbn5PnLV 5lYpwiAoLujVHblaguL0rmFmYw ICg+WHRtYI2pALO0xM3oJIDwbF xpMAzxJYZfT2QjZDSmfzlmuICc xVxmIVROj18eTJ15RpCsZUzqOX eelMJpg1bap7EkF1nafUidYUrz g0DcoK4nb6RmmZ4quMotXlVdn3 iwLoHzSCYpARCgYp00TJIysJYo hx6lcDKjTBgrWIKcDFzxAAZfc7 VxJNkihCHja9rji4CaF6gmbTmq BUgxa4PhvV1hA5LfZJIdYGJfER OyNSOzvnKbqL3xRGHirEAtcKUo nGbyGHIno4EnDmgkVFYcDIZbrf seBhUdC7LbH7LbDRAcCbHJNOZz JYGGTrUrRVffcZDtEXouS5DrWA lnaCBncmFkZSBkeXNwbGFzaWFc B1SbTC2dNI8nqHAwjVKymvMikC AbEI6gTVuuwRCuyZ2xg7zdXHOq dmszEIGxZQnoECzlgUWqc2vxz9 TcZ6qyvWrxMAgfr6YujE1nUMV3 nJMzbeBnpDzkZBGbd4FzEPZwUO iyc7Ubaz6gKXtuKRRsn0NuNEli tZZgj5kfy4AkL1tqgGoaDKzxd7 DxmF9aZMPhQGPhc81vFWdkak34 GOK4v1qpzBJkKAmtScfngLCcqu C9IAlVXGTFRZnVGyKhJB1tWRbX B5WQLWbZTqytENPpDFW8KYaimL ciUshhqzJbdACsQnGghU35mvMl xSV7iHDfWAUgUHJlW6Uvamy4AB C4rNQcAFitEKUvDXWclv7iRQYt t1djkHIeRUsjRktteAArrdT9RZ rFJRZSRHdRCbZcJH5qVZqQO2LB JeU9OPRiTNb9tNW4XH57TJPrEE CnvNXzZNmyQ274IHHiCFenEGCc MjAgLlxwYXJccGFyZFxwYXJcYi OJv840rp0voowwEMHzOVLlEZKj zvopfSKmAOsqHDUMBULzeQ3jrW 0oeYPlMRGktwhhKSOey1EdJUvx JYP0EKSjBHNzZ1TbQUTEsyCqxT RlLXNwZWNpZmljIHJlYWdlbnRz IZ9jSZYnj6XehV0ylBXgJCPevF 8aEJKsrVZwrIQiZpOWs9LsUqvv LZJMGSJmFxUKmo1puFT1XBj6Vw JaDIw1BGCif12clOSrjAAsjSGx MEPhtvDfdX92ry6fqCF2q2FcIZ 4hn4TzmLH1CUWmZCVxelAla9Lq NFGhofYopPynhKCreQYjZf9fzV MuJ0XzW9ceowKrjWEqaJV7mXIa JAYbjGXrzQmtPCQiHkofa0VpTA IjtnYnxcMqYEORGIIgl1mkXUo9 pLOJGLFyO7VuTVEgabKolqahYK LfQFM8xVWaoMVjGnXIFXZqm0cr P6dcHa2pnU77xxL4DH7lv9GfMk DwhwK3vqBtuMoskqFoTM9aIEBg fuHrxRPvrPFstTsaj7HnpDDkzM VpZCSddfTfhWhnUPOvTSYDl35z HIpbmDFpy3jge6XfJ4njePrqLY isa9GnfC5fLVfhojYtvl12VAWu QK2aS2kuJJJxESIwujNgfUVmo1 OoPVRqvDO5aVKlWWRzUe3sZPKv qhJfSDI8FhHUQA8arwrorBHrtP becp4fKOGiVCWWYXTmhSIzRHFs dGVybWluZWQgdGhhdCBzdWNoIG UpZPIeBF8qHAUsoeYphQGto6Tu sDCuqzNtd7DmfoPwNNLrPSB9St OrAVaojwX2VNX3XIirPJBsZAYi Wy5nKINswL2aP2HcIXC0xzJak0 IgShYqCYUaz9ppzYubTT6vaMQr ZSByZWdhcmRlZCBhcyBpbnZlc3 DcW1L8aC6ySUgcn5RgDu1dZPAm m9EbslOaPvMnZDRjMNevcDe1JA ObBTV4vOAsd14oIIWoEBOdtHDs ThxaDZTkeMKtnF9hdqOqTS9qKw qeQ60kELNnsG4db1qek7AqEi4i EWyge3absPpcBYPcYOqtoDYylN MkzBCkASiauFpvC3I0nDokfpCt yzSfmAQ5FI6kpAKrORNoujSfJ9 W5sVOcGO0pCBLulZWiURsovkAd x9dcrtHidMN1zQChDADQHJ5dM2 E3uFMlLZSlg6WyePQxocBgNRF3 cR7vx4z3BUGywJzbEemuX8kja9 hvdWxkIGJlIGludGVycHJldGVk SDohbFmkR8M4dWeosaNpwxJczB U6KC6ngYTnQNJiahKzO9Z5kPYn BA4wQWNyAFSaioRtWj7bqGfnQH BoiLPpFLtevnKni1ijyhXgnER6 iFGsXDFyULGvxD19yECjPkUlE1 2qiHRsGGXduN1xFEF0iXKdiTPb g3EerRsjVLipNR2pqP1mo7bgiS CxYCVTrXbuNAcmVe2iBTHlozfk hZQqL9NdtOrlfHFfDCUzXIRhZZ NMSUEgYXMgcXVhbGlmaWVkIHRv YDKcsuDqiw6vnNsooQLwg97czD I8qLI7KELsh3TzbzybEGPxrbeu MhNpfYTkXRIcF89BFuVYYLJYL9 4ZPZNOEGMUY6QXY1jQLYA9MCH2 UapbTPPyU03FXfTAONALW97MDP WPUNIRN8PGEOAEKGuWJ9FHMT6F VKHAAUYNZF9LSLdXTtWOHVvPY9 HNYG8MYNWJHLZCFU3GTnKsMGbE U3OIC0cAVMKpAAZSSBDENNJeXi IKVW4vJHk4RCgKCgI6REH5Ofn3 BZDYFMBULT9LXJKGA65OYBLDBO WOX5KLCZRRYvDXOHJEV30STFBL DOJLX5MIO3tTEIXFOhBCKCHML7 1SCRUVAMFOH8SJMLHATQKFUhZP NcTPBU8EDQHOPIRDPF0KOKdVJv IwBISJZ4YDQlDTK1plCZUHYBYB ZTDqVI3UzJ== [facility] Work Phone: Intraoperative Consult l6zulOTxQBEzrGDuS DkwNlxhbn EiFZHklAIxL1FjqlnyJBhmQC6u KA9xeYrgmRLpiDBfVBZeDrKji9 lav213gLKlx1sfBDKSykbdjOw7 lSdcE20vo5T0ZihoD86htZLaKZ A4GRQqCLQqtIEkLDQrGOT5AKYz gATwB7vfLQCfMC5mcetlJXoeYA ckWCAnjIL5BAHvhTSnE7ZtPABq BZyuKLYpwnp5JcDcUo8fgANyvE cyMFxwYXJkXHBsYWluXGJcZnMy SOGVEjLpVB9yX8LhTUCosF5cb7 rch0HruqkhzRGxQzKuXTVfIjQ9 e18oeYEwJREscmypYTcaLLSywS GdMWIEZyYEO0fLCCDSMFXYJI6A MaRYIWkSZBAIOkUZBv0VSS0uzP FyfQ== [employer] Work Phone: [employer] Work Phone: Anesthesia Postprocedure Carol luationon 05-08-2024 [employer] Worker Authentication Interface Message Text Anesthesia Postoperative Assessment: [...] EVENTS: No notable events documented. Normal [facility] [employer] [facility] Anesthesia Preprocedure Eval uationon 05-08-2024 [employer] Worker Authentication Interface Message Text ASA: 3 No [...] were discussed with the patient and/or legal client relations representative. The risks, benefits and alternatives were reviewed. Questions regarding anesthesia were answered. Patient and/or legal client relations representative knows such anesthetics and procedures may be performed by Resident physicians, Certified Anesthesiologist Assistants, or Certified Nurse Anesthetists under the supervision of a physician. The patient /or the patient's legal client relations representative agree with the plan for anesthesia. [employer] Normal [facility] Anesthesia Transfer [facility] 05-08-2024 [employer] Worker Authentication Interface Message Text Patient taken to [...] report was received. POLLO Salazar Normal [facility] [employer] [facility] Blood Attestationon 05-08-19 [employer] Worker Authentication Interface Message Text Blood Attestation: ATTESTATION OF INFORMED CONSENT FOR BLOOD: The transfusion of blood and/or blood components were discussed with the patient and/or legal client relations representative. The risks, benefits and alternatives were reviewed. Questions regarding blood transfusions were answered. The patient /or the patient's legal client relations representative agree with the plan for transfusion of blood and/or blood components. Normal [facility] [employer] [facility] Interval H AND P Noteon 04-25 [employer] Worker Authentication Interface Message Text H AND P reviewed. The patient was examined and there are no changes to the H AND P. Medications, allergies, and pertinent laboratory and diagnostic tests were also reviewed at this time. Surgery still indicated. Normal [facility] [employer] [facility] OP Noteon 05-08-2024 [employer] Worker Authentication Interface Message Text Operative Report DATE OF SERVICE: 05/08/24 PATIENT: Robert Ron PREOPERATIVE DIAGNOSIS: 1. Oropharyngeal mass POSTOPERATIVE DIAGNOSIS: 1. Oropharyngeal mass, squamous cell carcinoma PROCEDURE: Direct laryngoscopy with biopsy, CPT 49745 SURGEON: Simon Packer MD PULLMAN CONDUCTOR: Resident surgeons: MD Jimenez Craig MD ANESTHESIA: [...] present for the entire procedure. Normal [facility] [employer] [facility] Telephone Encounteron 2024 [employer] Worker Authentication Interface Message Text Reached patient, who is advised of scheduled speech, nutrition and ENT appointments as well as dental. He states that he has called his local dentist as well. If he can get in to them sooner, he will call and provide information so we can send dental clearance checklist. Cindy Newell RN Normal [facility] [employer] [facility] BASIC METABOLIC PANELon Anion gap [Moles/Vol] 17 mmol/L Normal 10-20 [facility] [employer] [facility] Comment on above: Performed By: #### C H8 #### [facility] [address], [place], Calcium [Mass/Vol] 9.7 mg/dL Normal 8.6-10.3 [facility] [employer] [facility] Comment on above: Performed By: #### C H8 #### [facility] [address], [place], Chloride [Moles/Vol] 102 mmol/L Normal 98-107 [facility] [employer] [facility] Comment on above: Performed By: #### C H8 #### [facility] [address], [place], CO2 [Moles/Vol] 24 mmol/L Normal 21-31 [facility] Comment on above: Performed By: #### C H8 #### [facility] [address], [place], Creatinine [Mass/Vol] 0.99 mg/dL Normal 0.70-1.30 [facility] Comment on above: Performed By: #### C H8 #### [facility] [address], [place], ESTIMATED GFR (CKD-EPI) 81 mL/min/1.73sqm Normal [...] Inclusion of Race in Diagnosing Kidney Disease. [place] Journal of Kidney Diseases 2021;79(2):268-88.e1. 2. N Engl J Med 1 Vol. 385 Issue 19 Pages [id number] Performed By: #### C H8 #### [facility] [address], [place], Glucose [Mass/Vol] 181 mg/dL High 74-109 [facility] Comment on above: Performed By: #### C H8 #### S PATHOLOGY LABORATORY [address] [place], [place], Potassium [Moles/Vol] 4.1 mmol/L Normal 3.5-5.0 [facility] Comment on above: Performed By: #### C H8 #### S PATHOLOGY LABORATORY [address] [place], [place], Sodium [Moles/Vol] 139 mmol/L Normal 136-145 [facility] Comment on above: Performed By: #### C H8 #### S PATHOLOGY LABORATORY [address] [place], [place], Urea nitrogen [Mass/Vol] 22 mg/dL Normal 7-25 [facility] Comment on above: Performed By: #### C H8 #### [facility] [address] [place], [place], Basic metabolic 2000 panelon 04-28-2024 Anion [...] CKD-EPI (S/P/Bld) [Vol rate/Area] 81 - PINF [facility] Comment on above: 2020 CKD EPI [...] Inclusion of Race in Diagnosing Kidney Disease. [place] Journal of Kidney Diseases 202;79(2):268-88.e1. 2. N Engl J Med 2020 Vol. 385 Issue 19 Pages [id number] Glucose [Mass/Vol] 181 mg/dL High 74 - [...] fraction] 45.6 % 41.0 - 53.0 % [facility] Hemoglobin (Bld) [Mass/Vol] 15.1 g/dL 13.9 - 16.3 g/dL [facility] Interpretation and review of laboratory results Abnormal [facility] MCH (RBC) [Entitic mass] 30 pg 26.0 - 34.0 pg [facility] MCHC (RBC) [Mass/Vol] 33.2 g/dL 32.0 - 35.9 g/dL [facility] MCV (RBC) [Entitic vol] 91 fL 80 - 100 fL [facility] Platelet mean volume (Bld) [Entitic vol] 10.4 fL 7.5 - 11.2 fL [facility] Platelets (Bld) [#/Vol] 168 10*3/uL 150 - 400 K/uL [facility] RBC (Bld) [#/Vol] 5.04 10*6/uL [facility] WBC (Bld) [#/Vol] 9.8 10*3/uL 4.5 - 11.5 K/uL [facility] COMPLETE BLOOD COUNTon 04-28 Erythrocyte distribution width (RBC) [Ratio] 15.0 % High 11.5-14.5 [facility] Comment on above: Performed By: #### C BC #### [facility] PATH[facility] [address] [place] [address], Hematocrit (Bld) [Volume fraction] 45.6 % Normal 41.0-53.0 [facility] Comment on above: Performed By: #### C BC #### S PATHOLOGY LABORATORY [address] [place] [address], Hemoglobin (Bld) [Mass/Vol] 15.1 g/dL Normal 13.9-16.3 [facility] Comment on above: Performed By: #### C BC #### S PATHOLOGY LABORATORY [address] [place] [address], MCH (RBC) [Entitic mass] 30.0 pg Normal 26.0-34.0 [facility] Comment on above: Performed By: #### C BC #### S PATHOLOGY LABORATORY [address] [place] [address], MCHC (RBC) [Mass/Vol] 33.2 g/dL Normal 32.0-35.9 [facility] Comment on above: Performed By: #### C BC #### S PATHOLOGY LABORATORY [address] [place] [address], MCV (RBC) [Entitic vol] 91 fL Normal 80-100 [facility] Comment on above: Performed By: #### C BC #### S PATHOLOGY LABORATORY [address] [place] [address], Platelet mean volume (Bld) [Entitic vol] 10.4 fL Normal 7.5-11.2 [facility] Comment on above: Performed By: #### C BC #### [facility] PATH[facility] [address] [place] [address], Platelets (Bld) [#/Vol] 168 10*3/uL Normal 150-400 [facility] Comment on above: Performed By: #### C BC #### [facility] PATHOLOG[facility]ORY [address] [place] [address], RBC (Bld) [#/Vol] 5.04 10*6/uL Normal 4.50-5.90 [facility] Comment on above: Performed By: #### C BC #### [facility] PATH[facility] [address] [place] [address], WBC (Bld) [#/Vol] 9.8 10*3/uL Normal 4.5-11.5 [facility] Comment on above: Performed By: #### C BC #### [facility] PATHOLOG[facility] [address] [place] [address], EKG 12 LEAD - PERFORMon Diagnosis Sinus rhythm with 1s t degree AV block Nonspecific ST abnormality Prolonged QT interval or tu fusion, consider myocardial disease, electrolyte imbalance, or drug effects Abnormal ECG Confirmed by ADÁN FREEMAN ([id number]) on 04/28/2024 1:41:04 PM [facility] P wave [facility] by EKG 84 BPM [facility] Q-T interval 470 ms [facility] Q-T interval corrected 545 ms [facility] QRS axis 66 degrees [facility] QRS duration 98 ms [facility] T wave axis 68 degrees [facility] AND P (View-Only)on 2024 [employer] Worker Authentication Interface Message Text OTOLARYNGOLOGY - HEAD [...] Dubois) who presents today, 04/28/2024, at the [facility] at the request of Referring Provider: [...] LNP, pres. free, 50 mcg/0.5 mL dose (CLU=558) 01/24/2023, 01/21/2024 Influenza, injectable, high dose seasonal, trivalent, preservative free (BRZ=870) 12/19/2016 Influenza, injectable, quadrivalent, preservative (MND=688) 12/22/2020, 01/03/2023 Influenza, injectable, trivalent, preservative (XMF=601) 01/07/2024 Influenza, novel U6W5-14, injectable, preservative-free (DCY=832) 02/03/2009 Moderna Monovalent (12+ yrs) COVID-19 vaccine, mRNA, spike protein, LNP, PF, 100 mcg/0.5 mL (UQK=206) 06/24/2020, 07/22/2020 Pneumococcal conjugate 20 valent (PCV20), polysaccharide [id number] conjugate, adjuvant, PF (LOS=796) 01/21/2024 Respiratory syncytial virus (RSV), vaccine, recombinant, protein subunit RSV prefusion F, adjuvant reconstituted, 0.5 mL, preservative free (MHZ=243) 01/24/2023 Zoster Recombinant (RZV,Shingles) (FHV=956) 08/20/2019 PHYSICAL EXAM: Vital Signs: Pulse 82 [...] mid (more content not included)... Normal [facility] Patient Instructionson 04-28 [employer] Worker Authentication Interface Message Text On the morning [...] for pain. Please hold all Vitamin E, [place] 3, fish oil and herbal supplements for [...] otherwise contacted. ? Expect a call from [facility] one business day prior to surgery for [...] your Preparing for Your Surgery/Procedure booklet or [email or web address] if you have questions. Contact the Pre-Admission Testing department at [phone] or your surgeon's office with any questions [...] stay with you after surgery. Please call [employer] [facility] if you need transportation assistance or have concerns about going home [phone]. ? SLEEP APNEA PATIENTS: Bring your sleep apnea machine and mask. ? PLEASE BE ON TIME. A late arrival may result in the cancellation/ delay of your surgery. Thank you for choosing [facility]; it is our pleasure to care for you Normal [facility] Progress Noteson 04-28-2024 [employer] Worker Authentication Interface Message Text Pt identified by name and Pharmacy updated Vital signs taken Pt in exam room ready for provider Normal [facility] Soft Tissue Neck WITH Contra ston 04-13-2024 Soft Tissue Neck WITH Contrast Normal [facility] L3300.0940on 01-11-2024 VIT D,25 HYDROX Normal [facility] Comment on above: Result Comment: TEST RESULTS LIMITSVitamin D, 25-Hydroxy 30.9 ng/mL 30.0-100.0Vitamin D deficiency has been defined by the [place] of[place] and an Endocrine Society practice guideline as alevel of serum 25-OH vitamin D less than 20 ng/mL (1,2).The Endocrine Society went on to further define vitamin Dinsufficiency as a level between 21 and 29 ng/mL (2).1. IOM ([place] of [employer]). 2010. Dietary reference intakes for calcium and D. [place]: The National Academies Press.2. Alissa MF, Jared [place], Jane ALEXANDRA, et al. Evaluation, treatment, and prevention of vitamin D deficiency: an Endocrine Society clinical practice guideline. JCEM. 2010; 96(7):1911-30. [facility] AT [facility]. ORIGINAL REPORT ON FILE IN LAB CONTAINS ADDITIONAL TEST SITE INFORMATION. Performed By: #### L 100.0100, L3300.0940, L501.9520, L500.4050 ####[facility] [address] [place], [address] CBC W/Diff, Automatedon 10-1 5-2023 Absolute Lymph 1.49 X10 3/uL Normal 0.83-4.51 [facility] Comment on above: Performed By: #### L 100.0100, L3300.0940, L501.9520, L500.4050 ####[facility] [address] [place], [address] Absolute Neut 6.5 X10 3/uL Normal 2.0-7.7 [facility] Comment on above: Performed By: #### L 100.0100, L3300.0940, L501.9520, L500.4050 ####[facility] [address] [place], [address] Basophils/100 WBC (Bld) 0.8 % Normal 0-1 [facility] Comment on above: Performed By: #### L 100.0100, L3300.0940, L501.9520, L500.4050 ####[facility] [address] [place], [address] Eosinophils/100 WBC (Bld) 1.6 % Normal 0-5 [facility] Comment on above: Performed By: #### L 100.0100, L3300.0940, L501.9520, L500.4050 ####[facility] [address] [place], [address] Erythrocyte distribution width (RBC) [Ratio] 14.2 % Normal 11.6-14.6 [facility] Comment on above: Performed By: #### L 100.0100, L3300.0940, L501.9520, L500.4050 ####[facility] [address] [place], [address] Hematocrit (Bld) [Volume fraction] 47.9 % Normal 40-54 [facility] Comment on above: Performed By: #### L 100.0100, L3300.0940, L501.9520, L500.4050 ####[facility] [address] [place], [address] Hemoglobin (Bld) [Mass/Vol] 14.9 g/dL Normal 13.0-16.5 [facility] Comment on above: Performed By: #### L 100.0100, L3300.0940, L501.9520, L500.4050 ####[facility] [address] [place], [address] IG% 1.200 High 0.0-0.9 [facility] Comment on above: Result Comment: IG% - Immature Granulocytes (promyelocytes, myelocytes andmetamyelocytes) > 1% indicates that a LEFT SHIFT is Present. Performed By: #### L 100.0100, L3300.0940, L501.9520, L500.4050 ####[facility] [address] [place], [address] Lymphocytes/100 WBC (Bld) 16.3 % Low 19-41 [facility] Comment on above: Performed By: #### L 100.0100, L3300.0940, L501.9520, L500.4050 ####[facility] [address] [place], [address] MCH (RBC) [Entitic mass] 28.9 pg Normal 27.0-32.0 [facility] Comment on above: Performed By: #### L 100.0100, L3300.0940, L501.9520, L500.4050 ####[facility] [address] [place], [address] MCHC (RBC) [Mass/Vol] 31.1 g/dL Low 32-36 [facility] Comment on above: Performed By: #### L 100.0100, L3300.0940, L501.9520, L500.4050 ####[facility] [address] [place], [address] MCV (RBC) [Entitic vol] 93.0 fL Normal 80-94 [facility] Comment on above: Performed By: #### L 100.0100, L3300.0940, L501.9520, L500.4050 ####[facility] [address] [place], [address] Monocytes/100 WBC (Bld) 9.2 % Normal 0-10 [facility] Comment on above: Performed By: #### L 100.0100, L3300.0940, L501.9520, L500.4050 ####[facility] [address] [place], [address] Neutrophils/100 WBC (Bld) 70.9 % High 47-70 [facility] Comment on above: Performed By: #### L 100.0100, L3300.0940, L501.9520, L500.4050 ####[facility] [address] [place], [address] Nucleated RBC (Bld) [#/Vol] 0 10*3/uL Normal 0-5 [facility] Comment on above: Performed By: #### L 100.0100, L3300.0940, L501.9520, L500.4050 ####[facility] [address] [place], [address] Platelet mean volume (Bld) [Entitic vol] 11.7 fL Normal 6.2-12.0 [facility] Comment on above: Performed By: #### L 100.0100, L3300.0940, L501.9520, L500.4050 ####[facility] [address] [place], [address] Platelets (Bld) [#/Vol] 168 10*3/uL Normal 150-450 [facility] Comment on above: Performed By: #### L 100.0100, L3300.0940, L501.9520, L500.4050 ####[facility] [address] [place], [address] RBC (Bld) [#/Vol] 5.15 10*6/uL Normal 4.6-6.2 [facility] Comment on above: Performed By: #### L 100.0100, L3300.0940, L501.9520, L500.4050 ####[facility] [address] [place], [address] RDW SD 48.8 fl High 35.1-43.9 [facility] Comment on above: Performed By: #### L 100.0100, L3300.0940, L501.9520, L500.4050 ####[facility] [address] [place], [address] WBC (Bld) [#/Vol] 9.2 10*3/uL Normal 4.4-11.0 [facility] Comment on above: Performed By: #### L 100.0100, L3300.0940, L501.9520, L500.4050 ####[facility] [address] [place], [address] Comprehensive Metabolic Prof [facility] 01-07-2024 Albumin [Mass/Vol] 3.5 g/dL Normal 3.2-5.0 [facility] Comment on above: Performed By: #### L 100.0100, L3300.0940, L501.9520, L500.4050 ####[facility] [address] [place], [address] Albumin/Globulin [Mass ratio] 0.8 {ratio} Low 0.9-2.4 [facility] Comment on above: Performed By: #### L 100.0100, L3300.0940, L501.9520, L500.4050 ####[facility] [address] [place], [address] ALK P 143 U/L High 45-117 [facility] Comment on above: Performed By: #### L 100.0100, L3300.0940, L501.9520, L500.4050 ####[facility] [address] [place], [address] ALT [Catalytic activity/Vol] 50 U/L Normal 16-61 [facility] Comment on above: Performed By: #### L 100.0100, L3300.0940, L501.9520, L500.4050 ####[facility] [address] [place], [address] AST [Catalytic activity/Vol] 32 U/L Normal 15-37 [facility] Comment on above: Performed By: #### L 100.0100, L3300.0940, L501.9520, L500.4050 ####[facility] [address] [place], [address] Bilirubin [Mass/Vol] 1.00 mg/dL Normal 0.20-1.00 [facility] Comment on above: Result Comment: For patients on eltrombopag therapy, use of Dimension [place] TBIL is not recommended. Performed By: #### L 100.0100, L3300.0940, L501.9520, L500.4050 ####[facility] [address] [place], [address] BUN/CRE 16.9 RATIO Normal 10-20 [facility] Comment on above: Performed By: #### L 100.0100, L3300.0940, L501.9520, L500.4050 ####[facility] [address] [place], [address] CA,Total 9.5 mg/dL Normal 8.5-10.1 [facility] Comment on above: Performed By: #### L 100.0100, L3300.0940, L501.9520, L500.4050 ####[facility] [address] [place], [address] Chloride [Moles/Vol] 106 mmol/L Normal 98-107 [facility] Comment on above: Performed By: #### L 100.0100, L3300.0940, L501.9520, L500.4050 ####[facility] [address] [place], [address] CO2 [Moles/Vol] 26.0 mmol/L Normal 21.0-32.0 [facility] Comment on above: Performed By: #### L 100.0100, L3300.0940, L501.9520, L500.4050 ####[facility] [address] [place], [address] Creatinine [Mass/Vol] 1.24 mg/dL Normal 0.70-1.30 [facility] Comment on above: Result Comment: The validity of the calculated GFR GFRAA in patients over70 years has not been determined. Clinical correlation isessential. Performed By: #### L 100.0100, L3300.0940, L501.9520, L500.4050 ####[facility] [address] [place], [address] EST GFR - AA 74 mL/min Normal >60 [facility] Comment on above: Result Comment: Afri can Brazilian GFR Calc Performed By: #### L 100.0100, L3300.0940, L501.9520, L500.4050 ####[facility] [address] [place], [address] GAP 5 Normal 5-15 [facility] Comment on above: Performed By: #### L 100.0100, L3300.0940, L501.9520, L500.4050 ####[facility] [address] [place], [address] GFR/1.73 sq M.predicted among non-blacks MDRD (S/P/Bld) [Vol rate/Area] 61 mL/min/{1.73_m2} Normal >60 [facility] Comment on above: Result Comment: Non- GFR Calc Performed By: #### L 100.0100, L3300.0940, L501.9520, L500.4050 ####[facility] [address] [place], [address] Globulin (S) [Mass/Vol] 4.3 g/dL High 2.2-4.2 [facility] Comment on above: Performed By: #### L 100.0100, L3300.0940, L501.9520, L500.4050 ####[facility] [address] [place], [address] Glucose [Mass/Vol] 239 mg/dL High 74-106 [facility] Comment on above: Result Comment: Gluc ose result greater than or equal to 200 mg/dLsuggests DIABETES MELLITUS per A.D.A. criteria. Performed By: #### L 100.0100, L3300.0940, L501.9520, L500.4050 ####[facility] [address] [place], [address] Potassium [Moles/Vol] 4.1 mmol/L Normal 3.5-5.1 [facility] Comment on above: Performed By: #### L 100.0100, L3300.0940, L501.9520, L500.4050 ####[facility] [address] [place], [address] Sodium [Moles/Vol] 137 mmol/L Normal 136-145 [facility] Comment on above: Performed By: #### L 100.0100, L3300.0940, L501.9520, L500.4050 ####[facility] [address] [place], [address] T PROT 7.8 g/dL Normal 6.4-8.2 [facility] Comment on above: Performed By: #### L 100.0100, L3300.0940, L501.9520, L500.4050 ####[facility] [address] [place], [address] Urea nitrogen [Mass/Vol] 21 mg/dL High 7-18 [facility] Comment on above: Performed By: #### L 100.0100, L3300.0940, L501.9520, L500.4050 ####[facility] [address] [place], [address] Thyroid Stim Hormone (TSH)on 01-07-2024 TSH 1.290 uIU/mL Normal 0.358-3.74 0 [facility] Comment on above: Performed By: #### L 100.0100, L3300.0940, L501.9520, L500.4050 ####[facility] [address] [place], [address] Absolute lymphocyte countOrd ered By: Bulmaro Curtis on 07-04-2023 Lymphocytes Auto (Unsp spec) [#/Vol] 2.86 10*3/uL 0.83-4.51 [facility] Automated lymphocyte count a s percentage of total leukocytesOrdered By: Bulmaro Curtis on 07-04-2023 Lymphocytes/100 WBC Auto (Unsp spec) 26.0 % 19-41 [facility] Basophil percentageOrdered B y: Bulmaro Curtis on 07-04-2023 Basophils/100 WBC (Bld) 1.0 % 0-1 [facility] Bilirubin [Mass/Vol] 1.20 mg/dL 0.20-1.00 [facility] Comment on above: For patients on eltr ombopag therapy, use of Dimension [place] TBIL is not recommended. Chloride [Moles/Vol] 103 mmol/L 98-107 [facility] Eosinophils/100 WBC (Bld) 2.1 % 0-5 [facility] Glucose [Mass/Vol] 221 mg/dL 74-106 [facility] Comment on above: Glucose result great er than or equal to 200 mg/dLsuggests DIABETES MELLITUS per A.D.A. criteria. Hemoglobin (Bld) [Mass/Vol] 14.6 g/dL 13.0-16.5 [facility] Monocytes/100 WBC (Bld) 11.1 % 0-10 [facility] Neutrophils (Bld) [#/Vol] 6.4 10*3/uL 2.0-7.7 [facility] Neutrophils/100 WBC (Bld) 58.5 % 47-70 [facility] Potassium [Moles/Vol] 3.9 mmol/L 3.5-5.1 [facility] Protein [Mass/Vol] 7.5 g/dL 6.4-8.2 [facility] Sodium [Moles/Vol] 138 mmol/L 136-145 [facility] WBC (Bld) [#/Vol] 11.0 10*3/uL 4.4-11.0 [facility] Determination of erythrocyte mean corpuscular volume (MCV)Ordered By: Bulmaro Curtis on 07-04-2023 MCV (RBC) [Entitic vol] 92.9 fL 80-94 [facility] Erythrocyte distribution wid th ratioOrdered By: Bulmaro Rosales07-04-2023 Erythrocyte distribution width (RBC) [Ratio] 14.1 % 11.6-14.6 [facility] Erythrocyte distribution wid th standard deviationOrdered By: Bulmaro Rosalesok on 07-04-2023 Erythrocyte distribution width (RBC) [Entitic vol] 48.2 fL 35.1-43.9 [facility] Hematocrit Auto (Bld) [Volum e fraction]Ordered By: Bulmaro Curtis 07-04-2023 Hematocrit (Bld) [Volume fraction] 47.4 % 40-54 [facility] Immature granulocytes/100 WB C Auto (Bld)Ordered By: Bulmaro Curtis on 07-04-2023 Immature granulocytes/100 WBC (Bld) 1.300 % 0.0-0.9 [facility] Comment on above: IG% - Immature Granu locytes (promyelocytes, myelocytes and metamyelocytes) > 1% indicates that a LEFT SHIFT is Present. Laboratory - Chemistry and C hemistry - challengeOrdered By: Bulmaro Curtis on 07-04-2023 Albumin/Globulin [Mass ratio] 0.9 {ratio} 0.9-2.4 [facility] ALP [Catalytic activity/Vol] 117 U/L 45-117 [facility] ALT [Catalytic activity/Vol] 42 U/L 16-61 [facility] CO2 [Moles/Vol] 26.0 mmol/L 21.0-32.0 [facility] Globulin (S) [Mass/Vol] 3.9 g/dL 2.2-4.2 [facility] Urea nitrogen/Creatinine [Mass ratio] 19.3 mg/mg 10-20 [facility] Laboratory - Hematology and Cell countsOrdered By: Bulmaro Curtis on 07-04-2023 MCH (RBC) [Entitic mass] 28.6 pg 27.0-32.0 [facility] MCHC (RBC) [Mass/Vol] 30.8 g/dL 32-36 [facility] Nucleated RBC/100 WBC (Bld) [Ratio] 0 % 0-5 [facility] Platelet mean volume (Bld) [Entitic vol] 11.8 fL 6.2-12.0 [facility] Platelets (Bld) [#/Vol] 170 10*3/uL 150-450 [facility] No Panel InformationOrdered By: Bulmaro Curtis on 07-04-2023 Estimated GFR (MDRD) Amer 77 mL/min >60 [facility] Comment on above: GFR Calc Estimated GFR (MDRD) Non-Af Amer 64 mL/min >60 [facility] Comment on above: Non- GFR Calc Vitamin D 25-Hydroxy 34.3 ng/mL [facility] Comment on above: Vitamin D 25(OH) Sta tus Range Deficiency <20 ng/mL (50nmol/L) Insufficiency 20 - 30 ng/mL (50 - 75 nmol/L) Sufficiency 30 - 100 ng/mL (75 - 250 nmol/L) Toxicity >100 ng/mL (>250 nmol/L) RBC Auto (Bld) [#/Vol]Ordere d By: Bulmaro Curtis on 07-04-2023 RBC (Bld) [#/Vol] 5.10 10*6/uL 4.6-6.2 [facility] Serum or plasma calcium blaine urement (mass/volume)Ordered By: Bulmaro Curtis on 07-04-2023 Calcium [Mass/Vol] 8.7 mg/dL 8.5-10.1 [facility] Serum or plasma creatinine m easurement (mass/volume)Ordered By: Bulmaro Curtis on 07-04-2023 Creatinine [Mass/Vol] 1.19 mg/dL 0.70-1.30 [facility] Comment on above: The validity of the calculated GFR & GFRAA in patients over 70 years has not been determined. Clinical correlation is essential. Serum or plasma thyroid stim ulating hormone (TSH) measurement (units/volume)Ordered By: Bulmaro Curtis on 07-04-2023 TSH Qn 1.98 uIU/mL 0.358-3.74 [facility] Serum or plasma urea nitroge n measurement (mass/volume)Ordered By: Bulmaro Curtis on 07-04-2023 Urea nitrogen [Mass/Vol] 23 mg/dL 7-18 [facility] Thin prep Papanicolaou smear with manual screeningOrdered By: Bulmaro Curtis on 07-04-2023 Thin prep Papanicolaou smear with manual screening 3.6 g/dL 3.2-5.0 [facility] Thin prep Papanicolaou smear with manual screening 22 U/L 15-37 [facility] Thin prep Papanicolaou smear with manual screening 9 5-15 [facility] Absolute lymphocyte countOrd ered By: Bulmaro Curtis on 01-03-2023 Lymphocytes Auto (Unsp spec) [#/Vol] 2.76 10*3/uL 0.83-4.51 [facility] Basophil percentageOrdered B y: Bulmaro Curtis on 01-03-2023 Basophils/100 WBC (Bld) 0.7 % 0-1 [facility] Bilirubin [Mass/Vol] 1.80 mg/dL 0.20-1.00 [facility] Comment on above: For patients on eltr ombopag therapy, use of Dimension [place] TBIL is not recommended. Chloride [Moles/Vol] 103 mmol/L 98-107 [facility] Eosinophils/100 WBC (Bld) 2.1 % 0-5 [facility] Glucose [Mass/Vol] 158 mg/dL 74-106 [facility] Comment on above: Fasting Glucose resu lt greater than or equal to 126 mg/dL suggests DIABETES MELLITUS per A.D.A. criteria. Neutrophils (Bld) [#/Vol] 6.3 10*3/uL 2.0-7.7 [facility] Neutrophils/100 WBC (Bld) 59.1 % 47-70 [facility] Potassium [Moles/Vol] 3.9 mmol/L 3.5-5.1 [facility] Protein [Mass/Vol] 8.2 g/dL 6.4-8.2 [facility] Sodium [Moles/Vol] 137 mmol/L 136-145 [facility] WBC (Bld) [#/Vol] 10.8 10*3/uL 4.4-11.0 [facility] Blood erythrocytes count (nu mber/volume)Ordered By: Bulmaro Curtis on 01-03-2023 RBC (Bld) [#/Vol] 5.32 10*6/uL 4.6-6.2 [facility] Blood hemoglobin measurement (mass/volume)Ordered By: Bulmaro Curtis on 01-03-2023 Hemoglobin (Bld) [Mass/Vol] 15.5 g/dL 13.0-16.5 [facility] Blood lymphocytes/100 leukoc ytesOrdered By: Bulmaro Curtis on 01-03-2023 Lymphocytes/100 WBC (Bld) 25.7 % 19-41 [facility] Blood monocytes/100 leukocyt esOrdered By: Bulmaro Curtis on 01-03-2023 Monocytes/100 WBC (Bld) 11.3 % 0-10 [facility] Blood platelet mean volumeOr dered By: Bulmaro Curtis on 01-03-2023 Platelet mean volume (Bld) [Entitic vol] 12.2 fL 6.2-12.0 [facility] Determination of erythrocyte mean corpuscular volume (MCV)Ordered By: Bulmaro Curtis on 01-03-2023 MCV (RBC) [Entitic vol] 91.2 fL 80-94 [facility] Hematocrit Auto (Bld) [Volum e fraction][facility] Hematocrit (Bld) [Volume fraction] 48.5 % 40-54 [facility] Laboratory - Chemistry and C hemistry - challengeOrdered By: [facility] ALP [Catalytic activity/Vol] 117 U/L 45-117 [facility] ALT [Catalytic activity/Vol] 50 U/L 16-61 [facility] CO2 [Moles/Vol] 25.0 mmol/L 21.0-32.0 [facility] Globulin (S) [Mass/Vol] 4.4 g/dL 2.2-4.2 [facility] Urea nitrogen/Creatinine [Mass ratio] 16.5 mg/mg 10-20 [facility] - Hematology and Cell countsOrdered By: [facility] 01-03-2023 Erythrocyte distribution width (RBC) [Entitic vol] 47.6 fL 35.1-43.9 [facility] Erythrocyte distribution width (RBC) [Ratio] 14.3 % 11.6-14.6 [facility] Immature granulocytes/100 WBC (Bld) 1.100 % 0.0-0.9 [facility] Comment on above: IG% - Immature Granu locytes (promyelocytes, myelocytes and metamyelocytes) > 1% indicates that a LEFT SHIFT is Present. MCH (RBC) [Entitic mass] 29.1 pg 27.0-32.0 [facility] Nucleated RBC/100 WBC (Bld) [Ratio] 0 % 0-5 [facility] MCHC Auto (RBC) [Mass/Vol]Or dered By: [facility] on 01-03-2023 MCHC (RBC) [Mass/Vol] 32.0 g/dL 32-36 [facility] No Panel InformationOrdered By: Bulmaro Curtis on 01-03-2023 Estimated GFR (MDRD) Amer 72 mL/min >60 [facility] Comment on above: GFR Calc Estimated GFR (MDRD) Non-Af Amer 59 mL/min >60 [facility] Comment on above: Non- GFR Calc Thyroid Stimulating Hormone (TSH) 2.17 uIU/mL 0.358-3.74 [facility] Vitamin D 25-Hydroxy 40.6 ng/mL [facility] Comment on above: Vitamin D 25(OH) Sta tus Range Deficiency <20 ng/mL (50nmol/L) Insufficiency 20 - 30 ng/mL (50 - 75 nmol/L) Sufficiency 30 - 100 ng/mL (75 - 250 nmol/L) Toxicity >100 ng/mL (>250 nmol/L) Platelets bldOrdered By: Bulmaro Curtis on 01-03-2023 Platelets (Bld) [#/Vol] 185 10*3/uL 150-450 [facility] Serum or plasma albumin blaine urement (mass/volume)Ordered By: Bulmaro Curtis on 01-03-2023 Albumin [Mass/Vol] 3.8 g/dL 3.2-5.0 [facility] Serum or plasma albumin/glob ulin mass ratioOrdered By: Bulmaro Curtis 01-03-2023 Albumin/Globulin [Mass ratio] 0.9 {ratio} 0.9-2.4 [facility] Serum or plasma calcium blaine urement (mass/volume)Ordered By: Bulmaro Curtis 01-03-2023 Calcium [Mass/Vol] 9.4 mg/dL 8.5-10.1 [facility] Serum or plasma creatinine m easurement (mass/volume)Ordered By: Bulmaro Curtis 01-03-2023 Creatinine [Mass/Vol] 1.27 mg/dL 0.70-1.30 [facility] Comment on above: The validity of the calculated GFR & GFRAA in patients over 70 years has not been determined. Clinical correlation is essential. Serum or plasma urea nitroge n measurement (mass/volume)Ordered By: Bulmaro Curtis on 01-03-2023 Urea nitrogen [Mass/Vol] 21 mg/dL 7-18 [facility] Thin prep Papanicolaou smear with manual screeningOrdered By: Bulmaro Curtis 01-03-2023 Thin prep Papanicolaou smear with manual screening 21 U/L 15-37 [facility] Thin prep Papanicolaou smear with manual screening 9 5-15 [facility] Whole blood hemoglobin A1c/t otal hemoglobin ratio (mass fraction)Ordered By: Bulmaro Curtis on 01-03-2023 HbA1c (Bld) [Mass fraction] 6.8 % 3.8-5.6 [facility] Comment on above: Normal < 5.7 % Predi abetic 5.7 - 6.4 % Diabetic >or= 6.5 % Please note range changes. Absolute lymphocyte countOrd ered By: Kamari Bah on 12-17-2022 Lymphocytes Auto (Unsp spec) [#/Vol] 1.60 10*3/uL 0.83-4.51 [facility] Basophil percentageOrdered B y: Kamari Bah on 12-17-2022 Basophils/100 WBC (Bld) 0.8 % 0-1 [facility] Eosinophils/100 WBC (Bld) 2.4 % 0-5 [facility] Neutrophils (Bld) [#/Vol] 5.2 10*3/uL 2.0-7.7 [facility] Neutrophils/100 WBC (Bld) 65.4 % 47-70 [facility] WBC (Bld) [#/Vol] 7.9 10*3/uL 4.4-11.0 [facility] Bilirubin [Mass/Vol] 1.60 mg/dL 0.20-1.00 [facility] Comment on above: For patients on eltr ombopag therapy, use of Dimension [place] TBIL is not recommended. Chloride [Moles/Vol] 111 mmol/L 98-107 [facility] Glucose [Mass/Vol] 137 mg/dL 74-106 [facility] Comment on above: Fasting Glucose resu lt greater than or equal to 126 mg/dL suggests DIABETES MELLITUS per A.D.A. criteria. Potassium [Moles/Vol] 4.6 mmol/L 3.5-5.1 [facility] Protein [Mass/Vol] 7.5 g/dL 6.4-8.2 [facility] Sodium [Moles/Vol] 139 mmol/L 136-145 [facility] Blood erythrocytes count (nu mber/volume)Ordered By: Kamari Bah on 12-17-2022 RBC (Bld) [#/Vol] 4.62 10*6/uL 4.6-6.2 [facility] Blood hemoglobin measurement (mass/volume)Ordered By: Kamari Bah on 12-17-2022 Hemoglobin (Bld) [Mass/Vol] 13.6 g/dL 13.0-16.5 [facility] Blood lymphocytes/100 leukoc ytesOrdered By: Kamari Bah on 12-17-2022 Lymphocytes/100 WBC (Bld) 20.2 % 19-41 [facility] Blood monocytes/100 leukocyt esOrdered By: Kamari Bah on 12-17-2022 Monocytes/100 WBC (Bld) 10.4 % 0-10 [facility] Blood platelet mean volumeOr dered By: Kamari Bah on 12-17-2022 Platelet mean volume (Bld) [Entitic vol] 11.7 fL 6.2-12.0 [facility] Determination of erythrocyte mean corpuscular volume (MCV)Ordered By: Kamari Bah on 12-17-2022 MCV (RBC) [Entitic vol] 94.4 fL 80-94 [facility] Hematocrit Auto (Bld) [Volum e fraction]Ordered By: Kamari Bah on 12-17-2022 Hematocrit (Bld) [Volume fraction] 43.6 % 40-54 [facility] - Chemistry and C hemistry - challengeOrdered By: Kamari Bah on 12-17-2022 ALP [Catalytic activity/Vol] 99 U/L 45-117 [facility] ALT [Catalytic activity/Vol] 34 U/L 16-61 [facility] CO2 [Moles/Vol] 22.0 mmol/L 21.0-32.0 [facility] Globulin (S) [Mass/Vol] 4.0 g/dL 2.2-4.2 [facility] Urea nitrogen/Creatinine [Mass ratio] 13.1 mg/mg 10-20 [facility] - Hematology and Cell countsOrdered By: Kamari Bah on 12-17-2022 Erythrocyte distribution width (RBC) [Entitic vol] 47.9 fL 35.1-43.9 [facility] Erythrocyte distribution width (RBC) [Ratio] 13.9 % 11.6-14.6 [facility] Immature granulocytes/100 WBC (Bld) 0.800 % 0.0-0.9 [facility] Comment on above: IG% - Immature Granu locytes (promyelocytes, myelocytes and metamyelocytes) > 1% indicates that a LEFT SHIFT is Present. MCH (RBC) [Entitic mass] 29.4 pg 27.0-32.0 [facility] Nucleated RBC/100 WBC (Bld) [Ratio] 0 % 0-5 [facility] MCHC Auto (RBC) [Mass/Vol]Or dered By: Kamari Bah on 12-17-2022 MCHC (RBC) [Mass/Vol] 31.2 g/dL 32-36 [facility] No Panel InformationOrdered By: Kamari Bah on 12-17-2022 Estimated Creatinine Clearance Calc 79.57 ml/min [facility] Estimated GFR (MDRD) Amer 95 mL/min >60 [facility] Comment on above: GFR Calc Estimated GFR (MDRD) Non-Af Amer 79 mL/min >60 [facility] Comment on above: Non- GFR Calc Platelets bldOrdered By: Roseann Bah on 12-17-2022 Platelets (Bld) [#/Vol] 127 10*3/uL 150-450 [facility] Serum or plasma albumin blaine urement (mass/volume)Ordered By: Kamari Bah on 12-17-2022 Albumin [Mass/Vol] 3.5 g/dL 3.2-5.0 [facility] Serum or plasma albumin/glob ulin mass ratioOrdered By: Kamari Bah on 12-17-2022 Albumin/Globulin [Mass ratio] 0.9 {ratio} 0.9-2.4 [facility] Serum or plasma calcium blaine urement (mass/volume)Ordered By: Kamari Bah on 12-17-2022 Calcium [Mass/Vol] 8.8 mg/dL 8.5-10.1 [facility] Serum or plasma creatinine m easurement (mass/volume)Ordered By: Kamari Bah on 12-17-2022 Creatinine [Mass/Vol] 0.99 mg/dL 0.70-1.30 [facility] Comment on above: The validity of the calculated GFR & GFRAA in patients over 70 years has not been determined. Clinical correlation is essential. Serum or plasma urea nitroge n measurement (mass/volume)Ordered By: Kamari Bah on 12-17-2022 Urea nitrogen [Mass/Vol] 13 mg/dL 7-18 [facility] Thin prep Papanicolaou smear with manual screeningOrdered By: Kamari Bah on 12-17-2022 Thin prep Papanicolaou smear with manual screening 32 U/L 15-37 [facility] Thin prep Papanicolaou smear with manual screening 6 5-15 [facility] Absolute lymphocyte countOrd ered By: Dr. Curtis on 06-28-2022 Lymphocytes Auto (Unsp spec) [#/Vol] 1.40 10*3/uL 0.83-4.51 [facility] Basophil percentageOrdered B y: Dr. Curtis on 06-28-2022 Basophils/100 WBC (Bld) 0.8 % 0-1 [facility] Bilirubin [Mass/Vol] 1.20 mg/dL 0.20-1.00 [facility] Comment on above: For patients on eltr ombopag therapy, use of Dimension [place] TBIL is not recommended. Chloride [Moles/Vol] 106 mmol/L 98-107 [facility] Eosinophils/100 WBC (Bld) 1.8 % 0-5 [facility] Glucose [Mass/Vol] 146 mg/dL 74-106 [facility] Comment on above: Fasting Glucose resu lt greater than or equal to 126 mg/dL suggests DIABETES MELLITUS per A.D.A. criteria. Neutrophils (Bld) [#/Vol] 5.5 10*3/uL 2.0-7.7 [facility] Neutrophils/100 WBC (Bld) 69.8 % 47-70 [facility] Potassium [Moles/Vol] 4.0 mmol/L 3.5-5.1 [facility] Protein [Mass/Vol] 7.5 g/dL 6.4-8.2 [facility] Sodium [Moles/Vol] 138 mmol/L 136-145 [facility] WBC (Bld) [#/Vol] 7.8 10*3/uL 4.4-11.0 [facility] Blood erythrocytes count (nu mber/volume)Ordered By: Dr. Curtis on 06-28-2022 RBC (Bld) [#/Vol] 5.00 10*6/uL 4.6-6.2 [facility] Blood hemoglobin measurement (mass/volume)Ordered By: Dr. Curtis on 06-28-2022 Hemoglobin (Bld) [Mass/Vol] 14.5 g/dL 13.0-16.5 [facility] Blood lymphocytes/100 leukoc ytesOrdered By: Dr. Curtis on 06-28-2022 Lymphocytes/100 WBC (Bld) 17.9 % 19-41 [facility] Blood monocytes/100 leukocyt esOrdered By: Dr. Curtis on 06-28-2022 Monocytes/100 WBC (Bld) 9.1 % 0-10 [facility] Blood platelet mean volumeOr dered By: Dr. Curtis on 06-28-2022 Platelet mean volume (Bld) [Entitic vol] 11.6 fL 6.2-12.0 [facility] Determination of erythrocyte mean corpuscular volume (MCV)Ordered By: Dr. Curtis on 06-28-2022 MCV (RBC) [Entitic vol] 90.8 fL 80-94 [facility] Hematocrit Auto (Bld) [Volum e fraction]Ordered By: Dr. Curtis on 06-28-2022 Hematocrit (Bld) [Volume fraction] 45.4 % 40-54 [facility] - Chemistry and C hemistry - challengeOrdered By: Dr. Curtis on 06-28-2022 ALP [Catalytic activity/Vol] 93 U/L 45-117 [facility] ALT [Catalytic activity/Vol] 41 U/L 16-61 [facility] CO2 [Moles/Vol] 27.0 mmol/L 21.0-32.0 [facility] Globulin (S) [Mass/Vol] 3.9 g/dL 2.2-4.2 [facility] Urea nitrogen/Creatinine [Mass ratio] 15.7 mg/mg 10-20 [facility] - Hematology and Cell countsOrdered By: Dr. Curtis on 06-28-2022 Erythrocyte distribution width (RBC) [Entitic vol] 46.7 fL 35.1-43.9 [facility] Erythrocyte distribution width (RBC) [Ratio] 14.0 % 11.6-14.6 [facility] Immature granulocytes/100 WBC (Bld) 0.600 % 0.0-0.9 [facility] Comment on above: IG% - Immature Granu locytes (promyelocytes, myelocytes and metamyelocytes) > 1% indicates that a LEFT SHIFT is Present. MCH (RBC) [Entitic mass] 29.0 pg 27.0-32.0 [facility] Nucleated RBC/100 WBC (Bld) [Ratio] 0 % 0-5 [facility] MCHC Auto (RBC) [Mass/Vol]Or dered By: Dr. Curtis on 06-28-2022 MCHC (RBC) [Mass/Vol] 31.9 g/dL 32-36 [facility] No Panel InformationOrdered By: Dr. Curtis on 06-28-2022 Estimated GFR (MDRD) Amer 93 mL/min >60 [facility] Comment on above: GFR Calc Estimated GFR (MDRD) Non-Af Amer 77 mL/min >60 [facility] Comment on above: Non- GFR Calc Thyroid Stimulating Hormone (TSH) 0.73 uIU/mL 0.358-3.74 [facility] Vitamin D 25-Hydroxy 42.9 ng/mL [facility] Comment on above: Vitamin D 25(OH) Sta tus Range Deficiency <20 ng/mL (50nmol/L) Insufficiency 20 - 30 ng/mL (50 - 75 nmol/L) Sufficiency 30 - 100 ng/mL (75 - 250 nmol/L) Toxicity >100 ng/mL (>250 nmol/L) Platelets bldOrdered By: Dr. Curtis on 06-28-2022 Platelets (Bld) [#/Vol] 176 10*3/uL 150-450 [facility] Serum or plasma albumin blaine urement (mass/volume)Ordered By: Dr. Curtis on 06-28-2022 Albumin [Mass/Vol] 3.6 g/dL 3.2-5.0 [facility] Serum or plasma albumin/glob ulin mass ratioOrdered By: Dr. Curtis on 06-28-2022 Albumin/Globulin [Mass ratio] 0.9 {ratio} 0.9-2.4 [facility] Serum or plasma calcium blaine urement (mass/volume)Ordered By: Dr. Curtis on 06-28-2022 Calcium [Mass/Vol] 9.3 mg/dL 8.5-10.1 [facility] Serum or plasma creatinine m easurement (mass/volume)Ordered By: Dr. Curtis on 06-28-2022 Creatinine [Mass/Vol] 1.02 mg/dL 0.70-1.30 [facility] Comment on above: The validity of the calculated GFR & GFRAA in patients over 70 years has not been determined. Clinical correlation is essential. Serum or plasma urea nitroge n measurement (mass/volume)Ordered By: Dr. Curtis on 06-28-2022 Urea nitrogen [Mass/Vol] 16 mg/dL 7-18 [facility] Thin prep Papanicolaou smear with manual screeningOrdered By: Dr. Curtis on 06-28-2022 Thin prep Papanicolaou smear with manual screening 23 U/L 15-37 [facility] Thin prep Papanicolaou smear with manual screening 5 5-15 [facility] INR in Blood by Coagulation assayOrdered By: Dr. Carolina on 05-15-2022 INR Coag (Bld) [Relative time] 1.0 {INR} [facility] - CoagulationOrde red By: Dr. Carolina on 05-15-2022 aPTT Coag (Bld) [Time] 27.6 s 24.1-36.2 [facility] PT Coag (PPP) [Time] 13.2 s 11.7-14.9 [facility] Platelets bldOrdered By: Dr. Carolina on 05-15-2022 Platelets (Bld) [#/Vol] 184 10*3/uL 150-450 [facility] Absolute lymphocyte countOrd ered By: Dr. Curtis on 03-29-2022 Lymphocytes Auto (Unsp spec) [#/Vol] 3.00 10*3/uL 0.83-4.51 [facility] Basophil percentageOrdered B y: Dr. Curtis on 03-29-2022 Basophils/100 WBC (Bld) 0.7 % 0-1 [facility] Bilirubin [Mass/Vol] 1.00 mg/dL 0.20-1.00 [facility] Comment on above: For patients on eltr ombopag therapy, use of Dimension [place] TBIL is not recommended. Chloride [Moles/Vol] 110 mmol/L 98-107 [facility] Eosinophils/100 WBC (Bld) 2.2 % 0-5 [facility] Glucose [Mass/Vol] 147 mg/dL 74-106 [facility] Comment on above: Fasting Glucose resu lt greater than or equal to 126 mg/dL suggests DIABETES MELLITUS per A.D.A. criteria. Neutrophils (Bld) [#/Vol] 6.5 10*3/uL 2.0-7.7 [facility] Neutrophils/100 WBC (Bld) 57.3 % 47-70 [facility] Potassium [Moles/Vol] 4.2 mmol/L 3.5-5.1 [facility] Protein [Mass/Vol] 7.7 g/dL 6.4-8.2 [facility] Sodium [Moles/Vol] 143 mmol/L 136-145 [facility] WBC (Bld) [#/Vol] 11.3 10*3/uL 4.4-11.0 [facility] Blood erythrocytes count (nu mber/volume)Ordered By: Dr. Curtis on 03-29-2022 RBC (Bld) [#/Vol] 5.16 10*6/uL 4.6-6.2 [facility] Blood hemoglobin measurement (mass/volume)Ordered By: Dr. Curtis on 03-29-2022 Hemoglobin (Bld) [Mass/Vol] 15.2 g/dL 13.0-16.5 [facility] Blood lymphocytes/100 leukoc ytesOrdered By: Dr. Curtis on 03-29-2022 Lymphocytes/100 WBC (Bld) 26.7 % 19-41 [facility] Blood monocytes/100 leukocyt esOrdered By: Dr. Curtis on 03-29-2022 Monocytes/100 WBC (Bld) 12.2 % 0-10 [facility] Blood platelet mean volumeOr dered By: Dr. Curtis on 03-29-2022 Platelet mean volume (Bld) [Entitic vol] 12.3 fL 6.2-12.0 [facility] Determination of erythrocyte mean corpuscular volume (MCV)Ordered By: Dr. Curtis on 03-29-2022 MCV (RBC) [Entitic vol] 92.1 fL 80-94 [facility] Hematocrit Auto (Bld) [Volum e fraction]Ordered By: Dr. Curtis on 03-29-2022 Hematocrit (Bld) [Volume fraction] 47.5 % 40-54 [facility] - Chemistry and C hemistry - challengeOrdered By: Dr. Curtis on 03-29-2022 ALP [Catalytic activity/Vol] 114 U/L 45-117 [facility] ALT [Catalytic activity/Vol] 49 U/L 16-61 [facility] CO2 [Moles/Vol] 27.0 mmol/L 21.0-32.0 [facility] Globulin (S) [Mass/Vol] 4.0 g/dL 2.2-4.2 [facility] Urea nitrogen/Creatinine [Mass ratio] 19.0 mg/mg 10-20 [facility] - Hematology and Cell countsOrdered By: Dr. Curtis on 03-29-2022 Erythrocyte distribution width (RBC) [Entitic vol] 47.8 fL 35.1-43.9 [facility] Erythrocyte distribution width (RBC) [Ratio] 14.1 % 11.6-14.6 [facility] Immature granulocytes/100 WBC (Bld) 0.900 % 0.0-0.9 [facility] Comment on above: IG% - Immature Granu locytes (promyelocytes, myelocytes and metamyelocytes) > 1% indicates that a LEFT SHIFT is Present. MCH (RBC) [Entitic mass] 29.5 pg 27.0-32.0 [facility] Nucleated RBC/100 WBC (Bld) [Ratio] 0 % 0-5 [facility] MCHC Auto (RBC) [Mass/Vol]Or dered By: Dr. Curtis on 03-29-2022 MCHC (RBC) [Mass/Vol] 32.0 g/dL 32-36 [facility] No Panel InformationOrdered By: Dr. Curtis on 03-29-2022 Estimated GFR (MDRD) Amer 66 mL/min >60 [facility] Comment on above: GFR Calc Estimated GFR (MDRD) Non-Af Amer 55 mL/min >60 [facility] Comment on above: Non- GFR Calc Thyroid Stimulating Hormone (TSH) 1.27 uIU/mL 0.358-3.74 [facility] Vitamin D 25-Hydroxy 41.3 ng/mL [facility] Comment on above: Vitamin D 25(OH) Sta tus Range Deficiency <20 ng/mL (50nmol/L) Insufficiency 20 - 30 ng/mL (50 - 75 nmol/L) Sufficiency 30 - 100 ng/mL (75 - 250 nmol/L) Toxicity >100 ng/mL (>250 nmol/L) Platelets bldOrdered By: Dr. Curtis on 03-29-2022 Platelets (Bld) [#/Vol] 178 10*3/uL 150-450 [facility] Serum or plasma albumin blaine urement (mass/volume)Ordered By: Dr. Curtis on 03-29-2022 Albumin [Mass/Vol] 3.7 g/dL 3.2-5.0 [facility] Serum or plasma albumin/glob ulin mass ratioOrdered By: Dr. Curtis on 03-29-2022 Albumin/Globulin [Mass ratio] 0.9 {ratio} 0.9-2.4 [facility] Serum or plasma calcium blaine urement (mass/volume)Ordered By: Dr. Curtis on 03-29-2022 Calcium [Mass/Vol] 9.4 mg/dL 8.5-10.1 [facility] Serum or plasma creatinine m easurement (mass/volume)Ordered By: Dr. Curtis on 03-29-2022 Creatinine [Mass/Vol] 1.37 mg/dL 0.70-1.30 [facility] Comment on above: The validity of the calculated GFR & GFRAA in patients over 70 years has not been determined. Clinical correlation is essential. Serum or plasma urea nitroge n measurement (mass/volume)Ordered By: Dr. Curtis on 03-29-2022 Urea nitrogen [Mass/Vol] 26 mg/dL 7-18 [facility] Thin prep Papanicolaou smear with manual screeningOrdered By: Dr. Curtis on 03-29-2022 Thin prep Papanicolaou smear with manual screening 27 U/L 15-37 [facility] Thin prep Papanicolaou smear with manual screening 6 5-15 [facility] Absolute lymphocyte countOrd ered By: Dr. Curtis on 12-28-2021 Lymphocytes Auto (Unsp spec) [#/Vol] 2.73 10*3/uL 0.83-4.51 [facility] Basophil percentageOrdered B y: Dr. Curtis on 12-28-2021 Basophils/100 WBC (Bld) 0.7 % 0-1 [facility] Bilirubin [Mass/Vol] 0.80 mg/dL 0.20-1.00 [facility] Comment on above: For patients on eltr ombopag therapy, use of Dimension [place] TBIL is not recommended. Chloride [Moles/Vol] 106 mmol/L 98-107 [facility] Eosinophils/100 WBC (Bld) 2.4 % 0-5 [facility] Glucose [Mass/Vol] 178 mg/dL 74-106 [facility] Comment on above: Fasting Glucose resu lt greater than or equal to 126 mg/dL suggests DIABETES MELLITUS per A.D.A. criteria. Neutrophils (Bld) [#/Vol] 7.3 10*3/uL 2.0-7.7 [facility] Neutrophils/100 WBC (Bld) 61.4 % 47-70 [facility] Potassium [Moles/Vol] 4.1 mmol/L 3.5-5.1 [facility] Protein [Mass/Vol] 7.9 g/dL 6.4-8.2 [facility] Sodium [Moles/Vol] 141 mmol/L 136-145 [facility] Testosterone [Mass/Vol] 89.91 ng/dL [facility] Comment on above: CENTRAL 90% REFERENC E RANGES MALE AGE <50 197.44 - 669.58 ng/dL MALE AGE > or = 50 187.72 - 684.19 ng/dL FEMALE AGE <50 8.38 - 35.01 ng/dL FEMALE AGE > or = 50 <7.00 - 35.92 ng/dL Effective as of 10/18/20 WBC (Bld) [#/Vol] 11.9 10*3/uL 4.4-11.0 [facility] Blood erythrocytes count (nu mber/volume)Ordered By: Dr. Curtis on 12-28-2021 RBC (Bld) [#/Vol] 5.13 10*6/uL 4.6-6.2 [facility] Blood hemoglobin measurement (mass/volume)Ordered By: Dr. Curtis on 12-28-2021 Hemoglobin (Bld) [Mass/Vol] 15.0 g/dL 13.0-16.5 [facility] Blood lymphocytes/100 leukoc ytesOrdered By: Dr. Curtis on 12-28-2021 Lymphocytes/100 WBC (Bld) 23.0 % 19-41 [facility] Blood monocytes/100 leukocyt esOrdered By: Dr. Curtis on 12-28-2021 Monocytes/100 WBC (Bld) 11.5 % 0-10 [facility] Blood platelet mean volumeOr dered By: Dr. Curtis on 12-28-2021 Platelet mean volume (Bld) [Entitic vol] 12.9 fL 6.2-12.0 [facility] Determination of erythrocyte mean corpuscular volume (MCV)Ordered By: Dr. Curtis on 12-28-2021 MCV (RBC) [Entitic vol] 90.8 fL 80-94 [facility] Hematocrit Auto (Bld) [Volum e fraction]Ordered By: Dr. Curtis on 12-28-2021 Hematocrit (Bld) [Volume fraction] 46.6 % 40-54 [facility] - Chemistry and C hemistry - challengeOrdered By: Dr. Curtis on 12-28-2021 ALP [Catalytic activity/Vol] 149 U/L 45-117 [facility] ALT [Catalytic activity/Vol] 53 U/L 16-61 [facility] CO2 [Moles/Vol] 26.0 mmol/L 21.0-32.0 [facility] Globulin (S) [Mass/Vol] 4.2 g/dL 2.2-4.2 [facility] Urea nitrogen/Creatinine [Mass ratio] 21.6 mg/mg 10-20 [facility] - Hematology and Cell countsOrdered By: Dr. Curtis on 12-28-2021 Erythrocyte distribution width (RBC) [Entitic vol] 47.9 fL 35.1-43.9 [facility] Erythrocyte distribution width (RBC) [Ratio] 14.4 % 11.6-14.6 [facility] Immature granulocytes/100 WBC (Bld) 1.000 % 0.0-0.9 [facility] Comment on above: IG% - Immature Granu locytes (promyelocytes, myelocytes and metamyelocytes) > 1% indicates that a LEFT SHIFT is Present. MCH (RBC) [Entitic mass] 29.2 pg 27.0-32.0 [facility] Nucleated RBC/100 WBC (Bld) [Ratio] 0 % 0-5 [facility] MCHC Auto (RBC) [Mass/Vol]Or dered By: Dr. Curtis on 12-28-2021 MCHC (RBC) [Mass/Vol] 32.2 g/dL 32-36 [facility] No Panel InformationOrdered By: Dr. Curtis on 12-28-2021 Estimated GFR (MDRD) Amer 68 mL/min >60 [facility] Comment on above: GFR Calc Estimated GFR (MDRD) Non-Af Amer 56 mL/min >60 [facility] Comment on above: Non- GFR Calc Prostate Specific Antigen Screen 0.34 ng/mL 0.00-4.00 [facility] Comment on above: This test was perfor med using the TPSA assay method for the[employer] Local chemistry system. Values obtained with differentassay methods cannot be used interchangably.When changing PSA assays in the course of monitoring apatient, additional sequential testing should be carriedout to confirm baseline values. Thyroid Stimulating Hormone (TSH) 1.57 uIU/mL 0.358-3.74 [facility] Vitamin D 25-Hydroxy 43.2 ng/mL [facility] Comment on above: Vitamin D 25(OH) Sta tus Range Deficiency <20 ng/mL (50nmol/L) Insufficiency 20 - 30 ng/mL (50 - 75 nmol/L) Sufficiency 30 - 100 ng/mL (75 - 250 nmol/L) Toxicity >100 ng/mL (>250 nmol/L) Platelets bldOrdered By: Dr. Curtis on 12-28-2021 Platelets (Bld) [#/Vol] 185 10*3/uL 150-450 [facility] Serum or plasma albumin blaine urement (mass/volume)Ordered By: Dr. Curtis on 12-28-2021 Albumin [Mass/Vol] 3.7 g/dL 3.2-5.0 [facility] Serum or plasma albumin/glob ulin mass ratioOrdered By: Dr. Curtis on 12-28-2021 Albumin/Globulin [Mass ratio] 0.9 {ratio} 0.9-2.4 [facility] Serum or plasma calcium blaine urement (mass/volume)Ordered By: Dr. Curtis on 12-28-2021 Calcium [Mass/Vol] 9.6 mg/dL 8.5-10.1 [facility] Serum or plasma creatinine m easurement (mass/volume)Ordered By: Dr. Curtis on 12-28-2021 Creatinine [Mass/Vol] 1.34 mg/dL 0.70-1.30 [facility] Comment on above: The validity of the calculated GFR & GFRAA in patients over 70 years has not been determined. Clinical correlation is essential. Serum or plasma urea nitroge n measurement (mass/volume)Ordered By: Dr. Curtis on 12-28-2021 Urea nitrogen [Mass/Vol] 29 mg/dL 7-18 [facility] Thin prep Papanicolaou smear with manual screeningOrdered By: Dr. Curtis on 12-28-2021 Thin prep Papanicolaou smear with manual screening 21 U/L 15-37 [facility] Thin prep Papanicolaou smear with manual screening 9 5-15 [facility] Basophil percentageon 2021 Creatinine [Mass/Vol] 1.1 mg/dL 0.70-1.30 [facility] Work Phone: No Panel Informationon 10-06 Bedside Estimated GFR (eGFR) > 60.0000 mL/min >60 [facility] Work Phone: Absolute lymphocyte counton 06-22-2021 Lymphocytes Auto (Unsp spec) [#/Vol] 2.09 10*3/uL 0.83-4.51 [facility] Work Phone: Basophil percentageon 2021 Basophils/100 WBC (Bld) 0.6 % 0-1 [facility] Work Phone: Bilirubin [Mass/Vol] 1.10 mg/dL 0.20-1.00 [facility] Work Phone: Comment on above: For patients on eltr ombopag therapy, use of Dimension [place] TBIL is not recommended. Chloride [Moles/Vol] 103 mmol/L 98-107 [facility] Work Phone: Eosinophils/100 WBC (Bld) 2.1 % 0-5 [facility] Work Phone: Glucose [Mass/Vol] 165 mg/dL 74-106 [facility] Work Phone: Comment on above: Fasting Glucose resu lt greater than or equal to 126 mg/dL suggests DIABETES MELLITUS per A.D.A. criteria. Neutrophils (Bld) [#/Vol] 6.6 10*3/uL 2.0-7.7 [facility] Work Phone: Neutrophils/100 WBC (Bld) 64.5 % 47-70 [facility] Work Phone: Potassium [Moles/Vol] 3.5 mmol/L 3.5-5.1 [facility] Work Phone: Protein [Mass/Vol] 7.8 g/dL 6.4-8.2 [facility] Work Phone: Sodium [Moles/Vol] 137 mmol/L 136-145 [facility] Work Phone: Testosterone [Mass/Vol] 95.80 ng/dL [facility] Work Phone: Comment on above: CENTRAL 90% REFERENC E RANGES MALE AGE <50 197.44 - 669.58 ng/dL MALE AGE > or = 50 187.72 - 684.19 ng/dL FEMALE AGE <50 8.38 - 35.01 ng/dL FEMALE AGE > or = 50 <7.00 - 35.92 ng/dL Effective as of 10/18/20 WBC (Bld) [#/Vol] 10.2 10*3/uL 4.4-11.0 [facility] Work Phone: Blood erythrocytes count (nu mber/volume)on 06-22-2021 RBC (Bld) [#/Vol] 5.50 10*6/uL 4.6-6.2 [facility] Work Phone: Blood hemoglobin measurement (mass/volume)on 06-22-2021 Hemoglobin (Bld) [Mass/Vol] 15.9 g/dL 13.0-16.5 [facility] Work Phone: Blood lymphocytes/100 leukoc yteson 06-22-2021 Lymphocytes/100 WBC (Bld) 20.6 % 19-41 [facility] Work Phone: [phone] Blood monocytes/100 leukocyt eson 06-22-2021 Monocytes/100 WBC (Bld) 11.3 % 0-10 [facility] Work Phone: [phone] Blood platelet mean volumeon 06-22-2021 Platelet mean volume (Bld) [Entitic vol] 11.9 fL 6.2-12.0 [facility] Work Phone: [phone] Determination of erythrocyte mean corpuscular volume (MCV)on 06-22-2021 MCV (RBC) [Entitic vol] 88.4 fL 80-94 [facility] Work Phone: [phone] Hematocrit Auto (Bld) [Volum e fraction]on 06-22-2021 Hematocrit (Bld) [Volume fraction] 48.6 % 40-54 [facility] Work Phone: [phone] Laboratory - Chemistry and C hemistry - challengeon 06-22-2021 ALP [Catalytic activity/Vol] 104 U/L 45-117 [facility] Work Phone: [phone] ALT [Catalytic activity/Vol] 44 U/L 16-61 [facility] Work Phone: [phone] CO2 [Moles/Vol] 28.0 mmol/L 21.0-32.0 [facility] Work Phone: [phone] Globulin (S) [Mass/Vol] 3.9 g/dL 2.2-4.2 [facility] Work Phone: [phone] Urea nitrogen/Creatinine [Mass ratio] 24.3 mg/mg 10-20 [facility] Work Phone: [phone] Laboratory - Hematology and Cell countson 06-22-2021 Erythrocyte distribution width (RBC) [Entitic vol] 44.3 fL 35.1-43.9 [facility] Work Phone: [phone] Erythrocyte distribution width (RBC) [Ratio] 13.6 % 11.6-14.6 [facility] Work Phone: [phone] Immature granulocytes/100 WBC (Bld) 0.900 % 0.0-0.9 [facility] Work Phone: [phone] Comment on above: IG% - Immature Granu locytes (promyelocytes, myelocytes and metamyelocytes) > 1% indicates that a LEFT SHIFT is Present. MCH (RBC) [Entitic mass] 28.9 pg 27.0-32.0 [facility] Work Phone: [phone] Nucleated RBC/100 WBC (Bld) [Ratio] 0 % 0-5 [facility] Work Phone: [phone] MCHC Auto (RBC) [Mass/Vol]on 06-22-2021 MCHC (RBC) [Mass/Vol] 32.7 g/dL 32-36 [facility] Work Phone: No Panel Informationon 06-22 Estimated GFR (MDRD) Amer 81 mL/min >60 [facility] Work Phone: Comment on above: GFR Calc Estimated GFR (MDRD) Non-Af Amer 67 mL/min >60 [facility] Work Phone: Comment on above: Non- GFR Calc Thyroid Stimulating Hormone (TSH) 1.57 uIU/mL 0.358-3.74 [facility] Work Phone: Vitamin D 25-Hydroxy 48.9 ng/mL [facility] Work Phone: [phone] Comment on above: Vitamin D 25(OH) Sta tus Range Deficiency <20 ng/mL (50nmol/L) Insufficiency 20 - 30 ng/mL (50 - 75 nmol/L) Sufficiency 30 - 100 ng/mL (75 - 250 nmol/L) Toxicity >100 ng/mL (>250 nmol/L) Platelets bldon 06-22-2021 Platelets (Bld) [#/Vol] 176 10*3/uL 150-450 [facility] Work Phone: Serum or plasma albumin blaine urement (mass/volume)on 06-22-2021 Albumin [Mass/Vol] 3.9 g/dL 3.2-5.0 [facility] Work Phone: [phone] Serum or plasma albumin/glob ulin mass ratioon 06-22-2021 Albumin/Globulin [Mass ratio] 1.0 {ratio} 0.9-2.4 [facility] Work Phone: [phone] Serum or plasma calcium blaine urement (mass/volume)on 06-22-2021 Calcium [Mass/Vol] 9.1 mg/dL 8.5-10.1 [facility] Work Phone: [phone] Serum or plasma creatinine m easurement (mass/volume)on 06-22-2021 Creatinine [Mass/Vol] 1.15 mg/dL 0.70-1.30 [facility] Work Phone: Comment on above: The validity of the calculated GFR & GFRAA in patients over 70 years has not been determined. Clinical correlation is essential. Serum or plasma urea nitroge n measurement (mass/volume)on 06-22-2021 Urea nitrogen [Mass/Vol] 28 mg/dL 7-18 [facility] Work Phone: [phone] Thin prep Papanicolaou smear with manual screeningon 06-22-2021 Thin prep Papanicolaou smear with manual screening 19 U/L 15-37 [facility] Work Phone: [phone] Thin prep Papanicolaou smear with manual screening 6 5-15 [facility] Work Phone: Vital Signs Date Time Vital Sign Value Performing Clinician Facility 09-15-2024 15:48-0400 Body height 187.[address] Bulmaro Curtis MD Work Phone: [facility] 09-15-2024 15:48-0400 Body weight 113.[address] Bulmaro Curtis MD Work Phone: [facility] 09-15-2024 14:56-0400 Body mass index (BMI) [Ratio] 32.1 kg/m2 Dr. Bulmaro Curtis MD Work Phone: [facility] 09-15-2024 14:56-0400 Body temperature 96.9 [degF] Dr. Bulmaro Curtis MD Work Phone: [facility] 09-15-2024 14:56-0400 Diastolic blood pressure 84 mm[Hg] Dr. Bulmaro Curtis MD Work Phone: 5(347)918-680782 [place] [address] 09-15-2024 14:56-0400 Heart rate 84 /min Dr. Bulmaro Curtis MD Work Phone: 6(714)908-333882 [place] [address] 09-15-2024 14:56-0400 Respiratory rate 18 /min Dr. Bulmaro Curtis MD Work Phone: 5(176)475-348782 [place] [address] 09-15-2024 14:56-0400 SaO2% (BldA) [Mass fraction] 97 % Dr. Bulmaro Curtis MD Work Phone: 8(618)077-615582 [place] [address] 09-15-2024 14:56-0400 Systolic blood pressure 134 mm[Hg] Dr. Bulmaro Curtis MD Work Phone: 9(179)813-469967 [address] 08-19-2024 13:16-0400 Body height 187.[address] Bulmaro Curtis MD Work Phone: 0(932)844-397959 [place] [address] 08-19-2024 13:16-0400 Body mass index (BMI) [Ratio] 34.8 kg/m2 Dr. Bulmaro Curtis MD Work Phone: 1(609)173-259282 [place] [address] 08-19-2024 13:16-0400 Body temperature 97.3 [degF] Dr. Bulmaro Curtis MD Work Phone: 9(458)849-195182 [place] [address] 08-19-2024 13:16-0400 Body weight 123.[address] Bulmaro Curtis MD Work Phone: 1(513)020-123982 [place] [address] 08-19-2024 13:16-0400 Diastolic blood pressure 84 mm[Hg] Dr. Bulmaro Curtis MD Work Phone: 2(156)554-899882 [place] [address] 08-19-2024 13:16-0400 Heart rate 67 /min Dr. Bulmaro Curtis MD Work Phone: 5(163)975-906082 [place] [address] 08-19-2024 13:16-0400 Respiratory rate 16 /min Dr. Bulmaro Curtis MD Work Phone: 0(778)154-815782 [place] [address] 08-19-2024 13:16-0400 SaO2% (BldA) [Mass fraction] 95 % Dr. Bulmaro Curtis MD Work Phone: 0(353)423-758782 [place] [address] 08-19-2024 13:16-0400 Systolic blood pressure 129 mm[Hg] Dr. Bulmaro Curtis MD Work Phone: 1(302)096-171459 [place] [address] 08-18-2024 12:56-0400 Body temperature 96.1 [degF] Dr. Bulmaro Curtis MD Work Phone: 9(943)829-102059 [place] [address] 08-18-2024 12:56-0400 Diastolic blood pressure 65 mm[Hg] Dr. Bulmaro Curtis MD Work Phone: 8(122)991-822159 [place] [address] 08-18-2024 12:56-0400 Heart rate 58 /min Dr. Bulmaro Curtis MD Work Phone: 9(550)391-083659 [place] [address] 08-18-2024 12:56-0400 Respiratory rate 14 /min Dr. Bulmaro Curtis MD Work Phone: 6(349)056-418659 [place] [address] 08-18-2024 12:56-0400 SaO2% (BldA) [Mass fraction] 96 % Dr. Bulmaro Curtis MD Work Phone: 4(421)379-657782 [place] [address] 08-18-2024 12:56-0400 Systolic blood pressure 135 mm[Hg] Dr. Bulmaro Curtis MD Work Phone: 4(842)652-734359 [place] [address] 08-18-2024 09:55-0400 Body weight 123.[address] Bulmaro Curtis MD Work Phone: 0(072)066-450559 [place] [address] 08-18-2024 08:37-0400 Body height 187.[address] Bulmaro Curtis MD Work Phone: 8(034)693-762082 [place] [address] 08-18-2024 08:37-0400 Body mass index (BMI) [Ratio] 35 kg/m2 Dr. Bulmaro Curtis MD Work Phone: 5(189)777-941559 [place] [address] 08-18-2024 08:37-0400 Body temperature 97.1 [degF] Dr. Bulmaro Curtis MD Work Phone: 0(107)226-542359 [place] [address] 08-18-2024 08:37-0400 Body weight 123.[address] Bulmaro Curtis MD Work Phone: 6(585)407-790859 [place] [address] 08-18-2024 08:37-0400 Diastolic blood pressure 74 mm[Hg] Dr. Bulmaro Curtis MD Work Phone: 4(479)832-558959 [place] [address] 08-18-2024 08:37-0400 Heart rate 74 /min Dr. Bulmaro Curtis MD Work Phone: 0(378)219-417359 [place] [address] 08-18-2024 08:37-0400 Respiratory rate 18 /min Dr. Bulmaro Curtis MD Work Phone: 0(658)983-722659 [place] [address] 08-18-2024 08:37-0400 SaO2% (BldA) [Mass fraction] 98 % Dr. Bulmaro Curtis MD Work Phone: 8(825)169-809059 [place] [address] 08-18-2024 08:37-0400 Systolic blood pressure 130 mm[Hg] Dr. Bulmaro Curtis MD Work Phone: 8(996)264-389759 [place] [address] 08-12-2024 13:05-0400 Body height 187.[address] Bulmaro Curtis MD Work Phone: 5(301)474-477759 [place] [address] 08-12-2024 13:05-0400 Body mass index (BMI) [Ratio] 35.1 kg/m2 Dr. Bulmaro Curtis MD Work Phone: 3(200)207-877459 [place] [address] 08-12-2024 13:05-0400 Body temperature 97 [degF] Dr. Bulmaro Curtis MD Work Phone: 0(626)543-898259 [place] [address] 08-12-2024 13:05-0400 Body weight [address] Bulmaro Curtis MD Work Phone: 7(987)537-384959 [place] [address] 08-12-2024 13:05-0400 Diastolic blood pressure 85 mm[Hg] Dr. Bulmaro Curtis MD Work Phone: 0(741)038-597682 [place] [address] 08-12-2024 13:05-0400 Heart rate 90 /min Dr. Bulmaro Curtis MD Work Phone: 8(923)440-099859 [place] [address] 08-12-2024 13:05-0400 Respiratory rate 18 /min Dr. Bulmaro Curtis MD Work Phone: 3(804)372-083159 [place] [address] 08-12-2024 13:05-0400 SaO2% (BldA) [Mass fraction] 92 % Dr. Bulmaro Curtis MD Work Phone: 5(483)800-286859 [place] [address] 08-12-2024 13:05-0400 Systolic blood pressure 130 mm[Hg] Dr. Bulmaro Curtis MD Work Phone: 9(931)929-082259 [place] [address] 08-10-2024 13:22-0400 Diastolic blood pressure 54 mm[Hg] Dr. Bulmaro Curtis MD Work Phone: 9(979)872-543359 [place] [address] 08-10-2024 13:22-0400 Heart rate 65 /min Dr. Bulmaro Curtis MD Work Phone: 4(231)761-651759 [place] [address] 08-10-2024 13:22-0400 Systolic blood pressure 114 mm[Hg] Dr. Bulmaro Curtis MD Work Phone: 0(805)969-768359 [place] [address] 08-10-2024 09:35-0400 Body weight 124.[address] Bulmaro Curtis MD Work Phone: 0(321)976-583259 [place] [address] 08-10-2024 08:46-0400 Body height 187.[address] Bulmaro Curtis MD Work Phone: 5(472)347-629359 [place] [address] 08-10-2024 08:46-0400 Body mass index (BMI) [Ratio] 35.2 kg/m2 Dr. Bulmaro Curtis MD Work Phone: 8(932)972-891059 [place] [address] 08-10-2024 08:46-0400 Body temperature 97.2 [degF] Dr. Bulmaro Curtis MD Work Phone: 2(835)768-129059 [place] [address] 08-10-2024 08:46-0400 Body weight 124.[address] Bulmaro Curtis MD Work Phone: 9(137)557-066559 [place] [address] 08-10-2024 08:46-0400 Diastolic blood pressure 69 mm[Hg] Dr. Bulmaro Curtis MD Work Phone: 1(406)299-455059 [place] [address] 08-10-2024 08:46-0400 Heart rate 68 /min Dr. Bulmaro Curtis MD Work Phone: 0(812)533-262759 [place] [address] 08-10-2024 08:46-0400 Respiratory rate 18 /min Dr. Bulmaro Curtis MD Work Phone: 7(193)702-399859 [place] [address] 08-10-2024 08:46-0400 SaO2% (BldA) [Mass fraction] 97 % Dr. Bulmaro Curtis MD Work Phone: 9(687)773-095959 [place] [address] 08-10-2024 08:46-0400 Systolic blood pressure 112 mm[Hg] Dr. Bulmaro Curtis MD Work Phone: 7(515)158-184759 [place] [address] 08-05-2024 12:03-0400 Body height 187.[address] Bulmaro Curtis MD Work Phone: 2(512)591-565859 [place] [address] 08-05-2024 12:03-0400 Body mass index (BMI) [Ratio] 35.4 kg/m2 Dr. Bulmaro Curtis MD Work Phone: 3(565)309-880659 [place] [address] 08-05-2024 12:03-0400 Body temperature 96.6 [degF] Dr. Bulmaro Curtis MD Work Phone: 0(153)687-012759 [place] [address] 08-05-2024 12:03-0400 Body weight 125.[address] Bulmaro Curtis MD Work Phone: 7(247)590-729159 [place] [address] 08-05-2024 12:03-0400 Diastolic blood pressure 73 mm[Hg] Dr. Bulmaro Curtis MD Work Phone: 6(584)908-476159 [place] [address] 08-05-2024 12:03-0400 Heart rate 82 /min Dr. Bulmaro Curtis MD Work Phone: 8(492)784-232059 [place] [address] 08-05-2024 12:03-0400 Respiratory rate 16 /min Dr. Bulmaro Curtis MD Work Phone: 7(069)373-763682 [place] [address] 08-05-2024 12:03-0400 SaO2% (BldA) [Mass fraction] 91 % Dr. Bulmaro Curtis MD Work Phone: 3(781)758-470482 [place] [address] 08-05-2024 12:03-0400 Systolic blood pressure 123 mm[Hg] Dr. Bulmaro Curtis MD Work Phone: 0(094)659-874959 [place] [address] 08-03-2024 10:01-0400 Body weight 126.[address] Bulmaro Curtis MD Work Phone: 6(825)082-643559 [place] [address] 08-03-2024 08:35-0400 Body mass index (BMI) [Ratio] 35.6 kg/m2 Dr. Bulmaro Curtis MD Work Phone: 4(517)380-867659 [place] [address] 08-03-2024 08:35-0400 Body temperature 97 [degF] Dr. Bulmaro Curtis MD Work Phone: 9(225)106-735859 [place] [address] 08-03-2024 08:35-0400 Body weight 126.[address] Bulmaro Curtis MD Work Phone: 1(528)988-702359 [place] [address] 08-03-2024 08:35-0400 Diastolic blood pressure 69 mm[Hg] Dr. Bulmaro Curtis MD Work Phone: 9(349)011-612159 [place] [address] 08-03-2024 08:35-0400 Heart rate 77 /min Dr. Bulmaro Curtis MD Work Phone: 7(591)095-469159 [place] [address] 08-03-2024 08:35-0400 Respiratory rate 18 /min Dr. Bulmaro Curtis MD Work Phone: 2(848)373-385659 [place] [address] 08-03-2024 08:35-0400 SaO2% (BldA) [Mass fraction] 97 % Dr. Bulmaro Curtis MD Work Phone: 1(047)827-152159 [place] [address] 08-03-2024 08:35-0400 Systolic blood pressure 125 mm[Hg] Dr. Bulmaro Curtis MD Work Phone: 4(708)669-607559 [place] [address] 07-31-2024 12:12-0400 Body temperature 96.5 [degF] Dr. Bulmaro Curtis MD Work Phone: 2(619)063-561759 [place] [address] 07-31-2024 12:12-0400 Diastolic blood pressure 68 mm[Hg] Dr. Bulmaro Curtis MD Work Phone: [facility] 07-31-2024 12:12-0400 Heart rate 65 /min Dr. Bulmaro Curtis MD Work Phone: [facility] 07-31-2024 12:12-0400 Respiratory rate 16 /min Dr. Bulmaro Curtis MD Work Phone: 2(288)403-731982 [place] [address] 07-31-2024 12:12-0400 SaO2% (BldA) [Mass fraction] 95 % Dr. Bulmaro Curtis MD Work Phone: 4(352)911-576259 [place] [address] 07-31-2024 12:12-0400 Systolic blood pressure 121 mm[Hg] Dr. Bulmaro Curtis MD Work Phone: 9(214)894-617159 [place] [address] 07-31-2024 09:52-0400 Body mass index (BMI) [Ratio] 35.4 kg/m2 Dr. Bulmaro Curtis MD Work Phone: 4(651)926-759959 [place] [address] 07-29-2024 09:23-0400 Body mass index (BMI) [Ratio] 35.6 kg/m2 Dr. Bulmaro Curtis MD Work Phone: 2(563)482-458082 [place] [address] 07-29-2024 09:23-0400 Body temperature 96.7 [degF] Dr. Bulmaro Curtis MD Work Phone: 1(005)612-061459 [place] [address] 07-29-2024 09:23-0400 Body weight 126.[address] Bulmaro Curtis MD Work Phone: 0(222)591-197559 [place] [address] 07-29-2024 09:23-0400 Diastolic blood pressure 85 mm[Hg] Dr. Bulmaro Curtis MD Work Phone: 0(869)528-698782 [place] [address] 07-29-2024 09:23-0400 Heart rate 86 /min Dr. Bulmaro Curtis MD Work Phone: 7(637)604-425682 [place] [address] 07-29-2024 09:23-0400 Respiratory rate 18 /min Dr. Bulmaro Curtis MD Work Phone: 5(462)078-161382 [place] [address] 07-29-2024 09:23-0400 SaO2% (BldA) [Mass fraction] 93 % Dr. Bulmaro Curtis MD Work Phone: [facility] 07-29-2024 09:23-0400 Systolic blood pressure 134 mm[Hg] Dr. Bulmaro Curtis MD Work Phone: 4(713)963-024482 [place] [address] 07-27-2024 08:40-0400 Body mass index (BMI) [Ratio] 36.1 kg/m2 Dr. Bulmaro Curtis MD Work Phone: 7(209)541-705182 [place] [address] 07-27-2024 08:40-0400 Body temperature 98 [degF] Dr. Bulmaro Curtis MD Work Phone: 0(224)269-689982 [place] [address] 07-27-2024 08:40-0400 Body weight 127.[address] Bulmaro Curtis MD Work Phone: 8(476)796-012259 [place] [address] 07-27-2024 08:40-0400 Diastolic blood pressure 81 mm[Hg] Dr. Bulmaro Curtis MD Work Phone: 0(918)260-097159 [place] [address] 07-27-2024 08:40-0400 Heart rate 84 /min Dr. Bulmaro Curtis MD Work Phone: 7(999)853-391159 [place] [address] 07-27-2024 08:40-0400 Respiratory rate 18 /min Dr. Bulmaro Curtis MD Work Phone: 4(365)398-295582 [place] [address] 07-27-2024 08:40-0400 SaO2% (BldA) [Mass fraction] 92 % Dr. Bulmaro Curtis MD Work Phone: 7(877)459-230782 [place] [address] 07-27-2024 08:40-0400 Systolic blood pressure 127 mm[Hg] Dr. Bulmaro Curtis MD Work Phone: 5(698)893-363367 [address] 07-22-2024 09:02-0400 Body mass index (BMI) [Ratio] 37.1 kg/m2 Dr. Bulmaro Curtis MD Work Phone: 3(681)857-136782 [place] [address] 07-22-2024 09:02-0400 Body temperature 97.1 [degF] Dr. Bulmaro Curtis MD Work Phone: 6(267)627-504667 [address] 07-22-2024 09:02-0400 Body weight 131.[address] Bulmaro Curtis MD Work Phone: [facility] 07-22-2024 09:02-0400 Diastolic blood pressure 80 mm[Hg] Dr. Bulmaro Curtis MD Work Phone: [facility] 07-22-2024 09:02-0400 Heart rate 81 /min Dr. Bulmaro Curtis MD Work Phone: [facility] 07-22-2024 09:02-0400 Respiratory rate 18 /min Dr. Bulmaro Curtis MD Work Phone: 5(010)848-316882 [place] [address] 07-22-2024 09:02-0400 SaO2% (BldA) [Mass fraction] 94 % Dr. Bulmaro Curtis MD Work Phone: 3(999)302-199382 [place] [address] 07-22-2024 09:02-0400 Systolic blood pressure 147 mm[Hg] Dr. Bulmaro Curtis MD Work Phone: 0(052)559-835882 [place] [address] 07-20-2024 08:44-0400 Body mass index (BMI) [Ratio] 37.1 kg/m2 Dr. Bulmaro Curtis MD Work Phone: 8(318)659-017082 [place] [address] 07-20-2024 08:44-0400 Body temperature 98.1 [degF] Dr. Bulmaro Curtis MD Work Phone: 5(299)134-066682 [place] [address] 07-20-2024 08:44-0400 Body weight 131.[address] Bulmaro Curtis MD Work Phone: [facility] 07-20-2024 08:44-0400 Diastolic blood pressure 75 mm[Hg] Dr. Bulmaro Curtis MD Work Phone: 3(878)496-828782 [place] [address] 07-20-2024 08:44-0400 Heart rate 80 /min Dr. Bulmaro Curtis MD Work Phone: 7(782)987-321582 [place] [address] 07-20-2024 08:44-0400 Respiratory rate 18 /min Dr. Bulmaro Curtis MD Work Phone: [facility] 07-20-2024 08:44-0400 SaO2% (BldA) [Mass fraction] 97 % Dr. Bulmaro Curtis MD Work Phone: 7(762)[phone] [place] [address] 07-20-2024 08:44-0400 Systolic blood pressure 132 mm[Hg] Dr. Bulmaro Curtis MD Work Phone: 0(750)[phone] [place] [address] 07-15-2024 10:47-0400 Body height 187.[address] Bulmaro Curtis MD Work Phone: 3(005)[phone] [place] [address] 07-15-2024 10:47-0400 Body weight [address] Bulamro Curtis MD Work Phone: 5(091)[phone] [place] [address] 07-15-2024 09:13-0400 Body mass index (BMI) [Ratio] 37.9 kg/m2 Dr. Bulmaro Curtis MD Work Phone: 2(837)489-501259 [place] [address] 07-15-2024 09:13-0400 Body temperature 96.5 [degF] Dr. Bulmaro Curtis MD Work Phone: 9(933)599-944959 [place] [address] 07-15-2024 09:13-0400 Body weight [address] Bulmaro Curtis MD Work Phone: 3(730)679-883659 [place] [address] 07-15-2024 09:13-0400 Diastolic blood pressure 69 mm[Hg] Dr. Bulmaro Curtis MD Work Phone: 4(224)140-276659 [place] [address] 07-15-2024 09:13-0400 Heart rate 78 /min Dr. Bulmaro Curtis MD Work Phone: 6(983)320-081459 [place] [address] 07-15-2024 09:13-0400 Respiratory rate 18 /min Dr. Bulmaro Curtis MD Work Phone: 9(896)930-110182 [place] [address] 07-15-2024 09:13-0400 SaO2% (BldA) [Mass fraction] 97 % Dr. Bulmaro Curtis MD Work Phone: 8(651)466-844982 [place] [address] 07-15-2024 09:13-0400 Systolic blood pressure 102 mm[Hg] Dr. Bulmaro Curtis MD Work Phone: 6(664)215-300659 [place] [address] 07-13-2024 13:57-0400 Body temperature 96.3 [degF] Dr. Bulmaro Curtis MD Work Phone: [facility] 07-13-2024 13:57-0400 Diastolic blood pressure 66 mm[Hg] Dr. Bulmaro Curtis MD Work Phone: [facility] 07-13-2024 13:57-0400 Heart rate 64 /min Dr. Bulmaro Curtis MD Work Phone: [facility] 07-13-2024 13:57-0400 Respiratory rate 16 /min Dr. Bulmaro Curtis MD Work Phone: 0(771)040-798482 [place] [address] 07-13-2024 13:57-0400 SaO2% (BldA) [Mass fraction] 93 % Dr. Bulmaro Curtis MD Work Phone: 0(461)747-703182 [place] [address] 07-13-2024 13:57-0400 Systolic blood pressure 123 mm[Hg] Dr. Bulmaro Curtis MD Work Phone: 1(697)124-240382 [place] [address] 07-13-2024 10:28-0400 Body mass index (BMI) [Ratio] 37.9 kg/m2 Dr. Bulmaro Curtis MD Work Phone: 8(449)102-688182 [place] [address] 07-13-2024 10:28-0400 Body temperature 98.1 [degF] Dr. Bulmaro Curtis MD Work Phone: [facility] 07-13-2024 10:28-0400 Body weight 133.[address] Bulmaro Curtis MD Work Phone: [facility] 07-13-2024 10:28-0400 Diastolic blood pressure 73 mm[Hg] Dr. Bulmaro Curtis MD Work Phone: [facility] 07-13-2024 10:28-0400 Heart rate 80 /min Dr. Bulmaro Curtis MD Work Phone: 0(561)090-281882 [place] [address] 07-13-2024 10:28-0400 Respiratory rate 18 /min Dr. Bulmaro Curtis MD Work Phone: [facility] 07-13-2024 10:28-0400 SaO2% (BldA) [Mass fraction] 92 % Dr. Bulmaro Curtis MD Work Phone: [facility] 07-13-2024 10:28-0400 Systolic blood pressure 127 mm[Hg] Dr. Bulmaro Curtis MD Work Phone: 8(044)501-997382 [place] [address] 07-09-2024 12:23-0400 Body temperature 97.2 [degF] Dr. Bulmaro Curtis MD Work Phone: 0(465)649-451482 [place] [address] 07-09-2024 12:23-0400 Diastolic blood pressure 78 mm[Hg] Dr. Bulmaro Curtis MD Work Phone: 7(953)172-523082 [place] [address] 07-09-2024 12:23-0400 Heart rate 80 /min Dr. Bulmaro Curtis MD Work Phone: 9(744)950-080659 [place] [address] 07-09-2024 12:23-0400 Respiratory rate 16 /min Dr. Bulmaro Curtis MD Work Phone: 0(177)696-336059 [place] [address] 07-09-2024 12:23-0400 SaO2% (BldA) [Mass fraction] 94 % Dr. Bulmaro Curtis MD Work Phone: 6(082)788-395082 [place] [address] 07-09-2024 12:23-0400 Systolic blood pressure 155 mm[Hg] Dr. Bulmaro Curtis MD Work Phone: 8(938)051-469959 [place] [address] 07-09-2024 10:02-0400 Body height 187.[address] Bulmaro Curtis MD Work Phone: 2(870)360-943582 [place] [address] 07-09-2024 10:02-0400 Body mass index (BMI) [Ratio] 38.7 kg/m2 Dr. Bulmaro Curtis MD Work Phone: 1(845)135-692182 [place] [address] 07-09-2024 10:02-0400 Body weight [address] Bulmaro Curtis MD Work Phone: 9(142)671-720682 [place] [address] 07-08-2024 09:52-0400 Body weight 139.[address] Bulmaro Curtis MD Work Phone: 3(430)962-017082 [place] [address] 07-08-2024 09:20-0400 Body mass index (BMI) [Ratio] 38.9 kg/m2 Dr. Bulmaro Curtis MD Work Phone: [facility] 07-08-2024 09:20-0400 Body temperature 96.9 [degF] Dr. Bulmaro Curtis MD Work Phone: 5(703)461-848182 [place] [address] 07-08-2024 09:20-0400 Body weight 137.[address] Bulmaro Curtis MD Work Phone: 8(022)261-326759 [place] [address] 07-08-2024 09:20-0400 Diastolic blood pressure 71 mm[Hg] Dr. Bulmaro Curtis MD Work Phone: 4(877)022-253959 [place] [address] 07-08-2024 09:20-0400 Heart rate 58 /min Dr. Bulmaro Curtis MD Work Phone: 6(765)883-506359 [place] [address] 07-08-2024 09:20-0400 Respiratory rate 16 /min Dr. Bulmaro Curtis MD Work Phone: 5(466)174-166559 [place] [address] 07-08-2024 09:20-0400 SaO2% (BldA) [Mass fraction] 93 % Dr. Bulmaro Curtis MD Work Phone: 3(065)070-827559 [place] [address] 07-08-2024 09:20-0400 Systolic blood pressure 116 mm[Hg] Dr. Bulmaro Curtis MD Work Phone: 4(527)722-960959 [place] [address] 07-06-2024 13:42-0400 Diastolic blood pressure 67 mm[Hg] Dr. Bulmaro Curtis MD Work Phone: 3(217)367-381759 [place] [address] 07-06-2024 13:42-0400 Heart rate 74 /min Dr. Bulmaro Curtis MD Work Phone: 2(804)461-606959 [place] [address] 07-06-2024 13:42-0400 Systolic blood pressure 142 mm[Hg] Dr. Bulmaro Curtis MD Work Phone: 8(970)664-888959 [place] [address] 07-06-2024 08:23-0400 Body mass index (BMI) [Ratio] 39.4 kg/m2 Dr. Bulmaro Curtis MD Work Phone: 5(908)245-217659 [place] [address] 07-06-2024 08:23-0400 Body temperature 98.2 [degF] Dr. Bulmaro Curtis MD Work Phone: [facility] 07-06-2024 08:23-0400 Body weight 139.[address] Bulmaro Curtis MD Work Phone: 2(796)834-664782 [place] [address] 07-06-2024 08:23-0400 Diastolic blood pressure 72 mm[Hg] Dr. Bulmaro Curtis MD Work Phone: 6(590)196-199882 [place] [address] 07-06-2024 08:23-0400 Heart rate 66 /min Dr. Bulmaro Curtis MD Work Phone: 5(932)711-953059 [place] [address] 07-06-2024 08:23-0400 Respiratory rate 18 /min Dr. Bulmaro Curtis MD Work Phone: 8(359)226-915459 [place] [address] 07-06-2024 08:23-0400 SaO2% (BldA) [Mass fraction] 94 % Dr. Bulmaro Curtis MD Work Phone: 3(485)220-277959 [place] [address] 07-06-2024 08:23-0400 Systolic blood pressure 158 mm[Hg] Dr. Bulmaro Curtis MD Work Phone: 9(376)611-273359 [place] [address] 07-02-2024 14:09-0400 Body temperature 97.6 [degF] Dr. Bulmaro Curtis MD Work Phone: 4(837)058-527759 [place] [address] 07-02-2024 14:09-0400 Diastolic blood pressure 84 mm[Hg] Dr. Bulmaro Curtis MD Work Phone: 5(661)988-745059 [place] [address] 07-02-2024 14:09-0400 Heart rate 70 /min Dr. Bulmaro Curtis MD Work Phone: [facility] 07-02-2024 14:09-0400 Respiratory rate 16 /min Dr. Bulmaro Curtis MD Work Phone: 5(309)980-301182 [place] [address] 07-02-2024 14:09-0400 SaO2% (BldA) [Mass fraction] 94 % Dr. Bulmaro Curtis MD Work Phone: 5(853)188-640282 [place] [address] 07-02-2024 14:09-0400 Systolic blood pressure 151 mm[Hg] Dr. Bulmaro Curtis MD Work Phone: 1(539)096-245382 [place] [address] 07-02-2024 14:00-0400 Heart rate 56 /min Dr. Bulmaro Curtis MD Work Phone: 1(474)954-546282 [place] [address] 07-02-2024 14:00-0400 Respiratory rate 20 /min Dr. Bulmaro Curtis MD Work Phone: 1(760)488-560882 [place] [address] 07-02-2024 13:15-0400 Inhaled oxygen flow rate 2 L/min Dr. Bulmaro Curtis MD Work Phone: 3(132)321-793882 [place] [address] 07-02-2024 08:54-0400 Body height 187.[address] Bulmaro Curtis MD Work Phone: 0(662)310-665082 [place] [address] 07-02-2024 08:54-0400 Body mass index (BMI) [Ratio] 39.9 kg/m2 Dr. Bulmaro Curtis MD Work Phone: 1(287)192-660182 [place] [address] 07-02-2024 08:54-0400 Body weight [address] Bulmaro Curtis MD Work Phone: 8(277)756-478582 [place] [address] 06-29-2024 10:27-0400 Body mass index (BMI) [Ratio] 40.2 kg/m2 Dr. Bulmaro Curtis MD Work Phone: 2(791)595-332082 [place] [address] 06-29-2024 10:27-0400 Body temperature 97.9 [degF] Dr. Bulmaro Curtis MD Work Phone: 9(301)838-711682 [place] [address] 06-29-2024 10:27-0400 Body weight 142.[address] Bulmaro Curtis MD Work Phone: 0(605)735-535982 [place] [address] 06-29-2024 10:27-0400 Diastolic blood pressure 72 mm[Hg] Dr. Bulmaro Curtis MD Work Phone: 1(584)403-133982 [place] [address] 06-29-2024 10:27-0400 Heart rate 58 /min Dr. Bulmaro Curtis MD Work Phone: 5(309)949-751082 [place] [address] 06-29-2024 10:27-0400 Respiratory rate 16 /min Dr. Bulmaro Curtis MD Work Phone: 5(090)666-853582 [place] [address] 06-29-2024 10:27-0400 SaO2% (BldA) [Mass fraction] 94 % Dr. Bulmaro Curtis MD Work Phone: [facility] 06-29-2024 10:27-0400 Systolic blood pressure 149 mm[Hg] Dr. Bulmaro Curtis MD Work Phone: [facility] 06-11-2024 08:25-0400 Diastolic blood pressure 54 mm[Hg] Franco Sanchez BLANCA Work Phone: [facility] 06-11-2024 08:25-0400 Heart rate 82 /min Franco Sanchez BLANCA Work Phone: [facility] 06-11-2024 08:25-0400 Systolic blood pressure 148 mm[Hg] Franco Sanchez BLANCA Work Phone: [facility] 06-03-2024 09:39-0400 Body mass index (BMI) [Ratio] 40.8 kg/m2 Dr. Bulmaro Curtis MD Work Phone: [facility] 06-03-2024 09:39-0400 Body weight 144.[address] Bulmaro Curtis MD Work Phone: [facility] 06-03-2024 09:39-0400 Diastolic blood pressure 63 mm[Hg] Dr. Bulmaro Curtis MD Work Phone: [facility] 06-03-2024 09:39-0400 Heart rate 87 /min Dr. Bulmaro Curtis MD Work Phone: [facility] 06-03-2024 09:39-0400 Respiratory rate 18 /min Dr. Bulmaro Curtis MD Work Phone: [facility] 06-03-2024 09:39-0400 SaO2% (BldA) [Mass fraction] 92 % Dr. Bulmaro Curtis MD Work Phone: [facility] 06-03-2024 09:39-0400 Systolic blood pressure 136 mm[Hg] Dr. Bulmaro Curtis MD Work Phone: [facility] 06-02-2024 15:39-0400 Body mass index (BMI) [Ratio] 40.8 kg/m2 Dr. Bulmaro Curtis MD Work Phone: [facility] 06-02-2024 15:39-0400 Body temperature 98.1 [degF] Dr. Bulmaro Curtis MD Work Phone: [facility] 06-02-2024 15:39-0400 Body weight 144.[address] Bulmaro Curtis MD Work Phone: [facility] 06-02-2024 15:39-0400 Diastolic blood pressure 69 mm[Hg] Dr. Bulmaro Curtis MD Work Phone: 6(238)187-576082 [place] [address] 06-02-2024 15:39-0400 Heart rate 77 /min Dr. Bulmaro Curtis MD Work Phone: 3(431)591-655982 [place] [address] 06-02-2024 15:39-0400 Respiratory rate 18 /min Dr. Bulmaro Curtis MD Work Phone: 2(088)670-156282 [place] [address] 06-02-2024 15:39-0400 SaO2% (BldA) [Mass fraction] 93 % Dr. Bulmaro Curtis MD Work Phone: [facility] 06-02-2024 15:39-0400 Systolic blood pressure 131 mm[Hg] Dr. Bulmaro Curtis MD Work Phone: [facility] 05-26-2024 13:00-0500 Body mass index (BMI) [Ratio] 40 kg/m2 Dr. Bulmaro Curtis MD Work Phone: [facility] 05-26-2024 13:00-0500 Body temperature 97.9 [degF] Dr. Bulmaro Curtis MD Work Phone: [facility] 05-26-2024 13:00-0500 Body weight 141.[address] Bulmaro Curtis MD Work Phone: [facility] 05-26-2024 13:00-0500 Diastolic blood pressure 80 mm[Hg] Dr. Bulmaro Curtis MD Work Phone: [facility] 05-26-2024 13:00-0500 Heart rate 73 /min Dr. Bulmaro Curtis MD Work Phone: [facility] 05-26-2024 13:00-0500 Respiratory rate 18 /min Dr. Bulmaro Curtis MD Work Phone: [facility] 05-26-2024 13:00-0500 SaO2% (BldA) [Mass fraction] 91 % Dr. Bulmaro Curtis MD Work Phone: [facility] 05-26-2024 13:00-0500 Systolic blood pressure 124 mm[Hg] Dr. Bulmaro Curtis MD Work Phone: [facility] 05-08-2024 09:57-0500 Body temperature 98.49 [degF] Simon Packer MD Work Phone: [facility] 05-08-2024 09:57-0500 Diastolic blood pressure 53 mm[Hg] Simon Packer MD Work Phone: [facility] 05-08-2024 09:57-0500 Heart rate 75 /min Simon Packer MD Work Phone: [facility] 05-08-2024 09:57-0500 Respiratory rate 16 /min Simon Packer MD Work Phone: [facility] 05-08-2024 09:57-0500 SaO2% (BldA) [Mass fraction] 93 % Simon Packer MD Work Phone: [facility] 05-08-2024 09:57-0500 Systolic blood pressure 132 mm[Hg] Simon Packer [facility] 04-28-2024 14:34-0500 Heart rate 81 /min Evieshirley Blank [address] PACKER OPERATOR-POND TENDER Work Phone: [employer] 04-28-2024 12:56-0500 Body height [address] PACKER OPERATOR-POND TENDER Work Phone: [employer] 04-28-2024 12:56-0500 Body mass index (BMI) [Ratio] 40.93 kg/m2 Evie Markiv RO[address] PACKER OPERATOR-POND TENDER Work Phone: [employer] 04-28-2024 12:56-0500 Body weight 144.61 kg Evie Blank APRN-POND TENDER Work Phone: [employer] 04-28-2024 12:56-0500 Diastolic blood pressure 69 mm[Hg] Evie Blank APRN-POND TENDER Work Phone: [employer] 04-28-2024 12:56-0500 Heart rate 90 /min Evie Blank APRN-POND TENDER Work Phone: [employer] 04-28-2024 12:56-0500 Respiratory rate 16 /min Evie Blank APRN-POND TENDER Work Phone: [employer] 04-28-2024 12:56-0500 SaO2% (BldA) [Mass fraction] 96 % Evie Blank APRNOneSchoolPOND TENDER Work Phone: [employer] 04-28-2024 12:56-0500 Systolic blood pressure 131 mm[Hg] Evie Blank APRN-POND TENDER Work Phone: [employer] 04-28-2024 11:40-0500 Body temperature 98.49 [degF] Simon Packer MD Work Phone: [employer] 04-28-2024 11:40-0500 Body weight 144.2 kg Simon Packer MD Work Phone: [employer] 04-28-2024 11:40-0500 Heart rate 82 /min Simon Packer MD Work Phone: [employer] 04-28-2024 11:40-0500 SaO2% (BldA) [Mass fraction] 97 % Simon Packer MD Work Phone: [employer] 07-31-2023 07:26-0400 Body height 187.[address] Bulmaro Curtis Work Phone: [facility] 07-31-2023 07:26-0400 Body mass index (BMI) [Ratio] 42 kg/m2 Dr. Bulmaro Curtis Work Phone: [facility] 07-31-2023 07:26-0400 Body temperature 98 [degF] Dr. Bulmaro Curtis Work Phone: [facility] 07-31-2023 07:26-0400 Body weight 148.[address] Bulmaro Curtis Work Phone: [facility] 07-31-2023 07:26-0400 Diastolic blood pressure 83 mm[Hg] Dr. Bulmaro Curtis Work Phone: 2(529)957-558882 [place] [address] 07-31-2023 07:26-0400 Heart rate 82 /min Dr. Bulmaro Curtis Work Phone: 8(786)330-874667 [address] 07-31-2023 07:26-0400 Respiratory rate 22 /min Dr. Bulmaro Curtis Work Phone: 8(516)973-383967 [address] 07-31-2023 07:26-0400 SaO2% (BldA) [Mass fraction] 94 % Dr. Bulmaro Curtis Work Phone: [facility] 07-31-2023 07:26-0400 Systolic blood pressure 146 mm[Hg] Dr. Bulmaro Curtis Work Phone: 7(432)913-943167 [address] 03-14-2023 06:27-0500 Body height 187.[address] Bulmaro Curtis Work Phone: [facility] 03-14-2023 06:27-0500 Body mass index (BMI) [Ratio] 27.6 kg/m2 Dr. Bulmaro Curtis Work Phone: [facility] 03-14-2023 06:27-0500 Body temperature 96.9 [degF] Dr. Bulmaro Curtis Work Phone: 4(763)509-201982 [place] [address] 03-14-2023 06:27-0500 Body weight 97.[address] Bulmaro Curtis Work Phone: [facility] 03-14-2023 06:27-0500 Diastolic blood pressure 70 mm[Hg] Dr. Bulmaro Curtis Work Phone: 9(756)220-519582 [place] [address] 03-14-2023 06:27-0500 Heart rate 71 /min Dr. Bulmaro Curtis Work Phone: 7(868)479-690182 [place] [address] 03-14-2023 06:27-0500 Respiratory rate 20 /min Dr. Bulmaro Curtis Work Phone: 7(727)398-074182 [place] [address] 03-14-2023 06:27-0500 SaO2% (BldA) [Mass fraction] 94 % Dr. Bulmaro Curtis Work Phone: 1(917)329-143082 [place] [address] 03-14-2023 06:27-0500 Systolic blood pressure 136 mm[Hg] Dr. Bulmaro Curtis Work Phone: 5(949)498-901359 [place] [address] 12-17-2022 08:52-0400 Diastolic blood pressure 77 mm[Hg] Dr. Bulmaro Curtis Work Phone: 1(142)995-817259 [place] [address] 12-17-2022 08:52-0400 Heart rate 70 /min Dr. Bulmaro Curtis Work Phone: 3(177)372-726859 [place] [address] 12-17-2022 08:52-0400 Systolic blood pressure 166 mm[Hg] Dr. Bulmaro Curtis Work Phone: 7(783)031-703059 [place] [address] 12-17-2022 07:51-0400 Body height 187.[address] Bulmaro Curtis Work Phone: 8(281)203-023059 [place] [address] 12-17-2022 07:51-0400 Body mass index (BMI) [Ratio] 39.6 kg/m2 Dr. Bulmaro Curtis Work Phone: 5(558)184-797159 [place] [address] 12-17-2022 07:51-0400 Body temperature 97.9 [degF] Dr. Bulmaro Curtis Work Phone: 6(894)430-568559 [place] [address] 12-17-2022 07:51-0400 Body weight 140.[address] Bulmaro Curtis Work Phone: 5(481)196-924659 [place] [address] 12-17-2022 07:51-0400 Respiratory rate 16 /min Dr. Bulmaro Curtis Work Phone: 4(235)396-563182 [place] [address] 12-17-2022 07:51-0400 SaO2% (BldA) [Mass fraction] 95 % Dr. Bulmaro Curtis Work Phone: [facility] 09-12-2022 06:21-0400 Body mass index (BMI) [Ratio] 38.7 kg/m2 Dr. Bulmaro Curtis Work Phone: [facility] 09-12-2022 06:21-0400 Body temperature 97.6 [degF] Dr. Bulmaro Curtis Work Phone: [facility] 09-12-2022 06:21-0400 Body weight 140.[address] Bulmaro Curtis Work Phone: [facility] 09-12-2022 06:21-0400 Diastolic blood pressure 73 mm[Hg] Dr. Bulmaro Curtis Work Phone: [facility] 09-12-2022 06:21-0400 Heart rate 70 /min Dr. Bulmaro Curtis Work Phone: [facility] 09-12-2022 06:21-0400 Respiratory rate 20 /min Dr. Bulmaro Curtis Work Phone: [facility] 09-12-2022 06:21-0400 SaO2% (BldA) [Mass fraction] 92 % Dr. Bulmaro Curtis Work Phone: [facility] 09-12-2022 06:21-0400 Systolic blood pressure 141 mm[Hg] Dr. Bulmaro Curtis Work Phone: [facility] 05-21-2022 07:54-0500 Body height 190.[address] Bulmaro Curtis Work Phone: [facility] 05-21-2022 07:54-0500 Body mass index (BMI) [Ratio] 39.4 kg/m2 Dr. Bulmaro Curtis Work Phone: [facility] 05-21-2022 07:54-0500 Body temperature 98 [degF] Dr. Bulmaro Curtis Work Phone: [facility] 05-21-2022 07:54-0500 Body weight 142.[address] Bulmaro Curtis Work Phone: [facility] 05-21-2022 07:54-0500 Diastolic blood pressure 80 mm[Hg] Dr. Blumaro Curtis Work Phone: [facility] 05-21-2022 07:54-0500 Heart rate 78 /min Dr. Bulmaro Curtis Work Phone: [facility] 05-21-2022 07:54-0500 Respiratory rate 18 /min Dr. Bulmaro Curtis Work Phone: [facility] 05-21-2022 07:54-0500 SaO2% (BldA) [Mass fraction] 92 % Dr. Bulmaro Curtis Work Phone: [facility] 05-21-2022 07:54-0500 Systolic blood pressure 138 mm[Hg] Dr. Bulmaro Curtis Work Phone: 2(973)173-626482 [place] [address] 05-15-2022 11:30-0500 Diastolic blood pressure 76 mm[Hg] Dr. Bulmaro Curtis Work Phone: [facility] 05-15-2022 11:30-0500 Heart rate 70 /min Dr. Bulmaro Curtis Work Phone: [facility] 05-15-2022 11:30-0500 Respiratory rate 18 /min Dr. Bulmaro Curtis Work Phone: [facility] 05-15-2022 11:30-0500 SaO2% (BldA) [Mass fraction] 93 % Dr. Bulmaro Curtis Work Phone: [facility] 05-15-2022 11:30-0500 Systolic blood pressure 125 mm[Hg] Dr. Bulmaro Curtis Work Phone: 5(806)897-291782 [place] [address] 05-15-2022 08:15-0500 Body height 190.[address] Bulmaro Curtis Work Phone: [facility] 05-15-2022 08:15-0500 Body mass index (BMI) [Ratio] 38.6 kg/m2 Dr. Bulmaro Curtis Work Phone: [facility] 05-15-2022 08:15-0500 Body temperature 96.6 [degF] Dr. Bulmaro Curtis Work Phone: [facility] 05-15-2022 08:15-0500 Body weight 140.[address] Bulmaro Curtis Work Phone: [facility] 05-08-2022 06:35-0500 Body mass index (BMI) [Ratio] 40.4 kg/m2 Dr. Bulmaro Curtis Work Phone: [facility] 05-08-2022 06:35-0500 Body temperature 97.5 [degF] Dr. Bulmaro Curtis Work Phone: 6(403)582-336082 [place] [address] 05-08-2022 06:35-0500 Body weight 142.[address] Bulmaro Curtis Work Phone: 9(765)757-238482 [place] [address] 05-08-2022 06:35-0500 Diastolic blood pressure 77 mm[Hg] Dr. Bulmaro Curtis Work Phone: 1(974)492-956882 [place] [address] 05-08-2022 06:35-0500 Heart rate 79 /min Dr. Bulmaro Curtis Work Phone: [facility] 05-08-2022 06:35-0500 Respiratory rate 22 /min Dr. Bulmaro Curtis Work Phone: [facility] 05-08-2022 06:35-0500 SaO2% (BldA) [Mass fraction] 94 % Dr. Bulmaro Curtis Work Phone: [facility] 05-08-2022 06:35-0500 Systolic blood pressure 140 mm[Hg] Dr. Bulmaro Curtis Work Phone: [facility] 06-07-2021 08:46-0400 Body height 187.[address] Bulmaro Curtis Work Phone: [facility] Work Phone: 06-07-2021 08:46-0400 Body mass index (BMI) [Ratio] 40 kg/m2 Dr. Bulmaro Curtis Work Phone: [facility] Work Phone: 06-07-2021 08:46-0400 Body temperature 97.2 [degF] Dr. Bulmaro Curtis Work Phone: [facility] Work Phone: 06-07-2021 08:46-0400 Body weight 141.[address] Bulamro Curtis Work Phone: [facility] Work Phone: 06-07-2021 08:46-0400 Diastolic blood pressure 68 mm[Hg] Dr. Bulmaro Curtis Work Phone: [facility] Work Phone: 06-07-2021 08:46-0400 Heart rate 67 /min Dr. Bulmaro Curtis Work Phone: [facility] Work Phone: 06-07-2021 08:46-0400 Respiratory rate 17 /min Dr. Bulmaro Curtis Work Phone: [facility] Work Phone: 06-07-2021 08:46-0400 SaO2% (BldA) [Mass fraction] 94 % Dr. Bulmaro Curtis Work Phone: [facility] Work Phone: 06-07-2021 08:46-0400 Systolic blood pressure 116 mm[Hg] Dr. Bulmaro Curtis Work Phone: [facility] Work Phone: 03-13-2021 08:25-0500 Body mass index (BMI) [Ratio] 36.8 kg/m2 Dr. Bulmaro Curtis Work Phone: [facility] Work Phone: 03-13-2021 08:25-0500 Body weight 130.[address] Bulmaro Curtis Work Phone: [facility] Work Phone: Encounters Encounter Date Encounter Type Care Provider Facility Start: 09-15-[address] [facility] Start: 09-15-2024 End: 09-15-[address] [facility] Work Phone: Start: 09-15-2024 End: 09-15-[address] Bulmaro Curtis MD Work Phone: [facility] Work Phone: Start: 08-20-2024 Non-patient / Non-visit Dr. Christina VÁSQUEZ [facility] Work Phone: Start: 08-20-2024 ambulatory Cipriano Layne Facility: [facility] Start: 08-19-2024 End: 08-19-[address] Cipriano [facility] DO [facility] Work Phone: Start: 08-19-2024 End: 08-19-[address] Bulmaro Curtis MD Work Phone: [facility] Work Phone: Start: 08-19-[address] [facility] Start: 08-18-2024 End: 08-21-2024 Telephone encounter Cindy Newell RN Work Phone: [facility] [facility] Start: 08-18-[address] [facility] Start: 08-18-2024 End: 08-18-[address] Franco Pérez MD -[facility] Work Phone: Start: 08-18-2024 End: 08-18-[address] Bulmaro Curtis MD Work Phone: [facility] Work Phone: Start: 08-12-2024 End: 08-12-[address] Cipriano Layne DO [facility] Work Phone: Start: 08-12-2024 End: 08-12-[address] Bulmaro Curtis MD Work Phone: [facility] Work Phone: Start: 08-12-[address] Cipriano Layne DO -Radiation Oncology Start: 08-10-[address] Cipriano Layne DO -Radiation Oncology Start: 08-10-2024 End: 08-10-[address] Franco Pérez MD -[facility] Work Phone: Start: 08-10-2024 End: 08-10-[address] Bulmaro Curtis MD Work Phone: [facility] Work Phone: Start: 08-07-[address] Cipriano Layne DO -Speech Therapy Work Phone: Start: 08-05-2024 End: 08-05-[address] Cip[facility]ano [facility] Work Phone: Start: 08-05-2024 End: 08-05-[address] Bulmaro Curtis MD Work Phone: [facility] Work Phone: Start: 08-05-[address] Cipriano Layne DO -Radiation Oncology Start: 08-03-2024 End: 08-03-[address] Franco Pérez MD -[facility] Work Phone: Start: 08-03-2024 End: 08-03-2024 ambulatory Bulmaro Curtis Facility:[facility] Start: 07-31-[address] [facility]ano [facility] Work Phone: Start: 07-29-2024 End: 07-29-[address] Cipriano Layne DO [facility] Work Phone: Start: 07-29-2024 End: 07-29-2024 ambulatory Cipriano Layne Facility:[facility] Start: 07-28-2024 ambulatory Cipriano Layne Facility: [facility] Start: 07-28-2024 Non-patient / Non-visit Dr. Christina V[facility]SQUEZ [facility] Start: 07-27-2024 ambulatory Cipriano Layne Facility: [facility] Start: 07-27-2024 Non-patient / Non-visit Dr. Christina VÁSQUEZ -[facility] Start: 07-27-2024 End: 07-27-[address] Franco Préez MD -[facility] Work Phone: Start: 07-27-2024 End: 07-27-2024 ambulatory Bulmaro Chi Ever Facility:[facility] Start: 07-22-2024 End: 07-22-2024 Patient encounter procedure Elicia Yin PA-C -[facility] Work Phone: Start: 07-22-2024 End: 07-22-2024 ambulatory Bulmaro Chi Ever Facility:[facility] Start: 07-20-2024 End: 07-20-[address] Franco Pérez MD -[facility] Work Phone: Start: 07-20-2024 End: 07-20-2024 ambulatory Bulmaro Chi Ever Facility:[facility] Start: 07-17-[address] Cipriano Layne DO -Radiation Oncology Start: 07-15-2024 End: 07-15-[address] Cipriano Layne DO -[facility] Work Phone: Start: 07-15-2024 End: 07-15-2024 ambulatory Cipriano Layne Facility:[facility] Start: 07-14-2024 End: 07-14-[address] Bulmaro Curtis MD Work Phone: [facility] Work Phone: Start: 07-14-2024 End: 07-14-[address] Cipriano Layne DO -Radiology, [facility] Work Phone: Start: 07-13-[address] Cipriano Layne DO -Speech Therapy Work Phone: Start: 07-13-2024 End: 07-13-[address] Franco Pérez MD -[facility] Work Phone: Start: 07-13-2024 End: 07-14-2024 ambulatory Cipriano Layne Facility:[facility] Start: 07-11-2024 End: 07-11-2024 Letter encounter Evie Blank ROAD PACKER OPERATOR-POND TENDER Work Phone: [facility] Start: 07-10-[address] Cipriano Layne DO -Radiation Oncology Start: 07-09-2024 ambulatory Daniel Sánchez Facility :[facility] Start: 07-09-2024 Non-patient / Non-visit Dr. Priyank ALVARENGA -[facility] Start: 07-09-2024 End: 07-09-2024 Admission to same day surgery center Dr. Daniel Sánchez MD -[facility] Start: 07-09-2024 End: 07-09-[address] Bulmaro Curtis MD Work Phone: [facility] Work Phone: Start: 07-09-[address] Cipriano Layne DO -Radiation Oncology Start: 07-08-2024 End: 07-08-[address] Cipriano Layne DO -[facility] Work Phone: Start: 07-08-2024 End: 07-08-2024 ambulatory Cipriano Layne Facility:[facility] Start: 07-06-2024 End: 07-06-[address] Bulmaro Curtis MD Work Phone: [facility] Work Phone: Start: 07-06-2024 End: 07-06-2024 Patient encounter procedure Elicia Yin PA-C -Radiology, [facility] Work Phone: Start: 07-06-2024 End: 07-06-[address] Franco Pérez MD -[facility] Work Phone: Start: 07-06-2024 End: 07-06-2024 ambulatory Bulmaro Curtis Facility:[facility] Start: 07-06-2024 End: 07-06-2024 ambulatory Elicia Yin Facility:[facility] Start: 07-02-2024 End: 07-02-2024 ambulatory Jovon Martin Facility:[facility] Start: 07-02-2024 End: 07-02-2024 Non-patient / Non-visit Dr. Andry Juárez MD -[facility] Work Phone: Start: 07-02-2024 ambulatory Daniel Sánchez Facility :[facility] Start: 07-02-2024 Non-patient / Non-visit Dr. Priyank ALVARENGA -[facility] Start: 07-02-2024 End: 07-02-2024 Admission to same day surgery center Dr. Daniel Sánchez MD -[facility] Start: 07-02-2024 End: 07-02-[address] Bulmaro Curtis MD Work Phone: [facility] Work Phone: Start: 06-29-2024 End: 06-29-2024 Patient encounter procedure Ashly Laguerre TRUSS DESIGNER-C -[facility] Work Phone: Start: 06-29-2024 End: 06-29-2024 ambulatory Bulmaro Curtis Facility:[facility] Start: 06-24-2024 ambulatory Cipriano Layne Facility: [facility] Start: 06-24-2024 Non-patient / Non-visit Dr. Vasquez [facility] Start: 06-23-2024 ambulatory Cipriano Layne Facility: [facility] Start: 06-23-2024 Non-patient / Non-visit Dr. Christina VÁSQUEZ [facility] Start: 06-19-2024 ambulatory Cipriano Layne Facility: [facility] Start: 06-19-2024 Non-patient / Non-visit Dr. Vasquez [facility] Start: 06-19-[address] 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 Daniel Sánchez MD -[facility] Work Phone: Start: 06-03-2024 End: 06-03-2024 ambulatory Daniel Sánchez Facility[facility] Start: 06-02-2024 End: 06-02-[address] Franco Pérez MD -[facility] Work Phone: Start: 06-02-2024 End: 06-02-2024 ambulatory Bulmaro Curtis Facility[facility] Start: 05-27-2024 End: 05-27-2024 ambulatory UNKNOWN PROVIDER Facility:[facility] Start: 05-26-2024 End: 05-26-[address] Cipriano Layne DO -[facility] Work Phone: Start: 05-26-2024 End: 05-26-2024 ambulatory Cipriano Layne Facility[facility] Start: 05-22-2024 End: 05-22-2024 ambulatory UNKNOWN PROVIDER Facility:[facility] Start: 05-22-2024 ambulatory SHARDA CIARA N ANDARA Facility:[facility] Start: 05-20-2024 Non-patient / Non-visit Lelo Galicia [facility] Work Phone: Start: 05-20-2024 ambulatory Lelo Dan Facility :[facility] Start: 05-13-2024 End: 05-13-2024 ambulatory UNKNOWN PROVIDER Facility:[facility] Start: 05-13-2024 End: 05-14-2024 ambulatory UNKNOWN PROVIDER Facility:[facility] Start: 05-08-2024 End: 05-08-2024 ambulatory SIMON PACKER Facility:[facility] Start: 05-08-2024 End: 05-08-2024 Subsequent hospital visit by physician [facility]acker [facility] Comment on above: Neck mass; Warthin's tumor; Oropharyngeal mass Start: 05-05-2024 End: 05-05-2024 Telephone encounter Cindy Newell RN Work Phone: [facility] Otolaryngology (ENT) Start: 05-04-2024 End: 05-04-2024 Telephone encounter Gela Kelly PATTERN FILER [facility] Comment on above: Outreach Start: 04-28-2024 End: 04-29-2024 Office consultation new/estab patient [address] PACKER OPERATOR-POND TENDER Work Phone: [facility] Comment on above: Pre-op testing (Prim shanika Dx); Abnormal electrocardiogram (ECG) (EKG); Abnormal electrocardiogram (ECG) (EKG); Primary hypertension; H/O pulmonary emphysema (HCC) Start: 04-28-2024 End: 04-29-2024 Patient encounter status Evie Blank 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 PACKER OPERATOR-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 TENDER Work Phone: [employer] Work Phone: Start: 04-28-2024 End: 04-29-2024 ambulatory IRAJ DUBOIS Facility:[facility] Start: 04-28-2024 Encounter for other preprocedural examination EVIE BLANK [facility] Start: 04-28-2024 End: 04-29-2024 Office consultation new/estab patient 80 min Simon Packer MD [facility] Comment on above: Neck mass (Primary D x); Warthin's tumor; Oropharyngeal mass Start: 04-28-2024 End: 04-29-2024 ambulatory IRAJ DUBOIS Facility:[facility] Start: 04-17-2024 End: 04-17-2024 ambulatory UNKNOWN PROVIDER Facility:[facility] Start: 04-17-2024 End: 04-17-2024 Subsequent hospital visit by physician [facility] Radiology Comment on above: Neck mass Start: 04-13-2024 End: 04-13-[address] Iraj Dubois MD -Cat Scan, [facility] Work Phone: Start: 04-13-2024 End: 04-13-2024 ambulatory Iraj Dubois Facility:[facility] Start: 01-07-2024 End: 01-07-2024 ambulatory Bulmaro Curtis Facility:[facility] Start: 07-31-2023 End: 07-31-[address] Bulmaro Curtis Work Phone: [facility] Pulmonary Medicine Work Phone: Start: 07-29-2023 End: 07-29-[address] Bulmaro Curtis Work Phone: [facility] Work Phone: Start: 07-29-2023 End: 07-29-[address] Bulmaro Curtis Work Phone: [facility] Work Phone: Start: 07-25-2023 End: 07-25-[address] Bulmaro Curtis Work Phone: [facility] Work Phone: Start: 07-25-2023 End: 07-25-[address] Bulmaro Curtis Work Phone: [facility]-Cat Scan, [facility] Work Phone: Start: 07-04-2023 End: 07-04-[address] Bulmaro Curtis Work Phone: [facility] Work Phone: Start: 07-04-2023 End: 07-04-[address] Bulmaro Curtis Work Phone: [facility] Start: 03-14-2023 End: 03-14-[address] Bulmaro Curtis Work Phone: [facility] Pulmonary Medicine Work Phone: Start: 01-03-2023 End: 01-03-[address] Bulmaro Curtis Work Phone: [facility] Work Phone: Start: 01-03-2023 End: 01-03-[address] [facility]mar[facility] Start: 12-17-2022 End: 12-17-2022 Emergency department patient visit Dr. Bulmaro Curtis Work Phone: [facility]-Emergency Department Work Phone: Start: 09-12-2022 End: 09-12-[address] Bulmaro Curtis [facility] Work Phone: Start: 08-18-2022 End: 08-18-[address] Bulmaro Curtis Work Phone: [facility] Work Phone: Start: 08-18-2022 End: 08-18-[address] Bulmaro Curtis Work Phone: [facility] Start: 06-28-2022 End: 06-28-[address] Bulmaro Curtis Work Phone: [facility], y Office 3rd Flr Start: 05-21-2022 End: 05-21-[address] Bulmaro Curtis [facility] Start: 05-15-2022 End: 05-15-[address] Bulmaro Curtis Work Phone: [facility] Work Phone: Start: 05-15-2022 End: 05-15-[address] Bulmaro Curtis Work Phone: [facility] Start: 05-08-2022 End: 05-08-[address] Bulmaro Curtis [facility] Start: 05-07-2022 End: 05-07-[address] Bulmaro Curtis Work Phone: [facility] Work Phone: Start: 05-07-2022 End: 05-07-[address] Bulmaro Curtis Work Phone: [facility] Start: 03-29-2022 End: 03-29-2022 ambulatory [facility] Work Phone: Start: 03-29-2022 End: 03-29-2022 Patient encounter procedure [facility]-Laboratory, Phy Office 3rd Flr Start: 12-28-2021 End: 12-28-2021 Patient encounter procedure [facility]-Laboratory, Phy Office 3rd Flr Start: 10-06-2021 End: 10-06-2021 Patient encounter procedure [facility]-MRI - [facility] Start: 06-22-2021 End: 06-22-[address] Bulmaro Curtis Work Phone: [facility]-Laboratory Start: 06-07-2021 End: 06-07-[address] Bulmaro Curtis Work Phone: [facility]-Pulmonary Medicine [facility] Start: 05-03-2021 End: 05-03-[address] Bulmaro Curtis Work Phone: [facility] Start: 03-13-2021 End: 03-13-[address] Bulmaro Curtis Work Phone: [facility] Procedures Date Procedure Procedure Detail [...] Blood count complete automated Evie Ma rkiv ROAD PACKER OPERATOR-POND TENDER Work Phone: Start: 04-28-2024 Ecg routine ecg w/least 12 lds trcg only w/o i&r Evie Markiv ROAD PACKER OPERATOR-POND TENDER Work Phone: Start: 04-17-2024 Radiology Comparison study [...] Start: 04-28-2025 Creatinine measurement Basic Metabolic Panel [facility] Start: 12-23-2024 Influenza vaccination Influenza Vaccine (#1) [facility] Start: 09-23-2024 End: 09-23-2024 ambulatory 09/23/2024 2:00 PM EDT [facility] Speech ENT [address] [place] [id number] Kristofer Anderson, [facility]-WIRE SPOOLER [address] [place], [place] [id number] [facility] Speech ENT Start: 09-23-2024 End: 09-23-2024 Patient encounter procedure 09/23/2024 1:00 PM EDT Office Visit [facility] Otolaryngology (ENT) [address] [place] [id number] Simon Packer MD [address] [place] [id number] [facility] Otolaryngology (ENT) Start: 09-15-2024 Comprehensive metabolic 2000 panel - Serum or Plasma [facility] Start: 09-15-2024 Lactate dehydrogenase measurement [facility] Start: 09-15-2024 Magnesium measurement [facility] Start: 09-15-2024 Serum inorganic phosphate measurement [facility] Start: 09-15-2024 T4 free measurement [facility] Start: 09-15-2024 Thyroid stimulating hormone measurement [facility] Start: 09-15-2024 [facility] Start: 08-19-2024 End: 08-19-2024 ambulatory 08/19/2024 3:00 PM EDT [facility] Speech ENT [address] [place] [address] Kristofer Anderson, CCC-WIRE SPOOLER [address] [place] [address] [facility] Speech ENT Start: 08-19-2024 End: 08-19-2024 Patient encounter procedure 08/19/2024 2:30 PM EDT Office Visit [facility] Otolaryngology (ENT) [address] [place], [place] [id number] Simon Packer MD [address] [place] [phone] [facility] Otolaryngology (ENT) Start: 08-18-2024 [facility] Start: 08-10-2024 [facility] Start: 07-21-2024 COVID-19 Vaccine (5 - Moderna risk season) COVID-19 Vaccine (5 - Moderna risk ) [facility] Start: 07-09-2024 Anesthesia access central venous circulation ANESTH VASCULAR ACCESS [facility] Start: 07-09-2024 Rpr ctr vad w/subq port/fuse assembler ctr/prph insj sit REPAIR TUNNELED CV CATH [facility] Start: 07-09-2024 Patient discharge [facility] Start: 07-06-2024 Venous catheter care management [facility] Start: 07-06-2024 Venous catheter care management [facility] Start: 07-02-2024 Anesthesia access central venous circulation ANESTH VASCULAR ACCESS [facility] Start: 07-02-2024 Egd percutaneous placement gastrostomy tube EGD PLACE GASTROSTOMY TUBE [facility] Start: 07-02-2024 Insj tunneled ctr vad w/subq port age 6 yr/> INSERT TUNNELED CV CATH [facility] Start: 07-02-2024 Electrocardiographic procedure [facility] Start: 07-02-2024 Patient discharge [facility] Start: 06-29-2024 Patient referral [facility] Work Phone: Start: 05-26-2024 Patient referral [facility] Work Phone: Start: 04-16-2024 Welcome to Medicare Visit (G0402) Welcome to Medicare Visit (G0402) [facility] Start: 03-17-2024 COVID-19 Vaccine ( season) COVID-19 Vaccine ( season) [facility] Start: 07-05-2023 Hemoglobin A1c measurement Hemoglobin A1C [facility] Start: 12-17-2022 Anoscopy dx w/collj spec br/wa spx when prfrmd DIAGNOSTIC ANOSCOPY SPX [facility] Start: 05-15-2022 CORE NDL BX LNG/MED PERQ CORE NDL BX LNG/MED PERQ [facility] Start: 05-15-2022 Plain chest X-ray Chest Insp/Exp 2 View [facility] Start: 05-15-2022 XR Chest Views W inspiration and expiration [facility] Start: 05-15-2022 Following clinical pathway protocol [facility] Start: 05-15-2022 Catheterization of vein [facility] Start: 05-15-2022 Oxygen therapy [facility] Start: 05-15-2022 Patient discharge [facility] Start: 05-15-2022 Vital signs measurements [facility] Start: 09-29-2016 Abdominal aortic aneurysm screening [...] rase [Enzymatic activity/volume] in Serum or Plasma [facility] Albumin [Mass/volume ] in Serum or Plasma [facility] Alkaline phosphatase [Enzymatic activity/volume] in Serum or Plasma [facility] Anion gap in Serum or Plasma [facility] Bilirubin, total measurement [facility] BUN/Creatinine ratio [facility] Calcium [Mass/volume ] in Serum or Plasma [facility] Carbon dioxide, tota l [Moles/volume] in Central venous blood [facility] CBC W Auto Different ial panel - Blood [facility] CBC W Auto Different ial panel - Blood [facility] Comprehensive metabo lic 1999 panel - Serum or Plasma [facility] Comprehensive metabo lic 1999 panel - Serum or Plasma [facility] Creatinine [Mass/vol ume] in Serum or Plasma [facility] CT Chest [facility] CT Chest [facility] CT Chest [facility] Glucose [Mass/volume ] in Serum or Plasma [facility] Lactate dehydrogenas e measurement [facility] Magnesium measurement [facility] Measurement of renal function [facility] Patient Education [facility] Work Phone: Patient referral [facility] Work Phone: Potassium measurement [facility] Serum chloride measurement [facility] Serum inorganic phos phate measurement [facility] Sodium measurement [facility] T4 free measurement [facility] Thyroid stimulating hormone measurement [facility] Total protein measurement [facility] Urea nitrogen [Mass/ volume] in Serum or Plasma [facility] Immunizations Immunization Date Immunization Notes Care Provider [facility] 01-21-2024 Pneumococcal conjuga te 20 valent (PCV20), polysaccharide [id number] conjugate, adjuvant, PF ([id number]) [facility] Abhay RO[address] PACKER OPERATOR-[facility] Work Phone: [facility] 01-07-2024 influenza, seasonal, injectable [facility] Ab[address] RO[address] PACKER OPERATOR-[facility] Work Phone: [facility] 01-07-2024 influenza virus vaccine, unspecified formulation Cindy Newell RN Work Phone: [facility] 01-24-2023 Respiratory syncytia l virus (RSV), vaccine, recombinant, protein subunit RSV prefusion F, adjuvant reconstituted, 0.5 mL, preservative free ([id number]) Evie Markiv ROAD PACKER OPERATOR-POND TENDER Work Phone: [facility] 01-03-2023 influenza, injectabl e, quadrivalent, contains preservative Evie Markiv ROAD PACKER OPERATOR-POND TENDER Work Phone: [facility] 01-03-[address] Hemoglobin A[address]C Evie Markiv RO[address] PACKER OPERATOR-POND TENDER Work Phone: [facility] 12-22-2020 influenza, injectabl e, quadrivalent, contains preservative Evie Markiv ROAD PACKER OPERATOR-POND TENDER Work Phone: [facility] 12-21-2019 influenza, injectabl e, quadrivalent, contains preservative Evie Markiv ROAD PACKER OPERATOR-POND TENDER Work Phone: [facility] 08-20-2019 zoster vaccine recombinant Evie Markiv ROAD PACKER OPERATOR-POND TENDER Work Phone: [facility] 06-19-2019 zoster vaccine recombinant Evie Markiv ROAD PACKER OPERATOR-POND TENDER Work Phone: [facility] 12-16-2018 influenza, injectabl e, quadrivalent, contains preservative Evie Markiv ROAD PACKER OPERATOR-POND TENDER Work Phone: [facility] 11-25-[address] Bulmaro Curtis Work Phone: [facility] 11-25-2018 influenza, seasonal, injectable, preservative free Evie Markiv ROAD PACKER OPERATOR-POND TENDER Work Phone: [facility] 12-19-2016 influenza, high dose seasonal, preservative-free Evie Markiv ROAD PACKER OPERATOR-POND TENDER Work Phone: [facility] 02-03-2009 novel [id number], preservative-free, injectable Evie Markiv ROAD PACKER OPERATOR-POND TENDER Work Phone: [facility] Payers Date Payer Category Payer Dental --Stand Alone DENTAL-MEDI [employer] [id number] 2024 Unknown [id number] 2024 Medicare FFS MEDICARE [id number] 2024 Self-pay [id number] 2021 Commercial Indemnity [facility] [id number] 2021 Unknown [id number] Medicare [id number] 1951 Unknown [id number] Unknown [id number] Unknown [id number] Unknown [id number] 2.16.840.1.439334.3.579.2.7 32 - Unknown [id number] 2.16.840.1.580047.3.579.2.7 32 1950 Unknown [id number] 2.16.840.1.204772.3.579.2.7 32 1950 Unknown [id number] 2.16.840.1.828810.3.579.2.7 32 1950 Unknown [id number] 2.16.840.1.149354.3.579.2.7 32 1950 Unknown [id number] 2.16.840.1.145049.3.579.2.7 32 1950 Unknown [id number] 2.16.840.1.699985.3.579.2.7 32 1950 Unknown [id number] 2.16.840.1.919933.3.579.2.7 32 195 Unknown [id number] 2.16.840.1.363996.3.579.2.7 32 1950 Unknown [id number] 2.16.840.1.082648.3.579.2.7 32 Unknown [id number] Unknown [id number] 2.16.840.1.391291.3.579.2.4 62 Unknown [id number] 2.16.840.1.165960.3.579.2.4 62 Unknown [id number] 2.16.840.1.562164.3.579.2.4 62 Unknown [id number] 2.16.840.1.134800.3.579.2.4 62 Unknown [id number] 2.16.840.1.937850.3.579.2.4 62 Unknown [id number] 2.16.840.1.209895.3.579.2.4 62 Unknown [id number] 2.16.840.1.566500.3.579.2.4 62 Unknown [id number] 2.16.840.1.991785.3.579.2.4 62 Unknown [id number] 2.16.840.1.059635.3.579.2.4 62 Unknown [id number] 2.16.840.1.152853.3.579.2.4 62 Unknown [id number] 2.16.840.1.401662.3.579.2.4 62 Unknown [id number] 2.16.840.1.278239.3.579.2.4 62 Unknown [id number] 2.16.840.1.485631.3.579.2.4 62 Unknown [id number] 2.16.840.1.129981.3.579.2.4 62 Unknown [id number] 2.16.840.1.220932.3.579.2.4 62 Unknown [id number] 2.16.840.1.981170.3.579.2.4 62 Unknown [id number] 2.16.840.1.988599.3.579.2.4 62 Unknown [id number] 2.16.840.1.874791.3.579.2.4 62 Unknown [id number] 2.16.840.1.451726.3.579.2.4 62 Unknown [id number] 2.16.840.1.493712.3.579.2.4 62 Unknown [id number] 2.16.840.1.833615.3.579.2.4 62 Unknown [id number] 2.16.840.1.776918.3.579.2.4 62 Unknown [id number] 2.16.840.1.792739.3.579.2.4 62 Unknown [id number] 2.16.840.1.413315.3.579.2.4 62 Unknown [id number] 2.16.840.1.113888.3.579.2.4 62 Unknown [id number] 2.16.840.1.590681.3.579.2.4 62 Unknown [id number] 2.16.840.1.005864.3.579.2.4 62 Unknown [id number] 2.16.840.1.764394.3.579.2.4 62 Unknown [id number] 2.16.840.1.237282.3.579.2.4 62 Unknown [id number] 2.16.840.1.375850.3.579.2.4 62 Unknown [id number] 2.16.840.1.053514.3.579.2.4 62 Unknown [id number] 2.16.840.1.748669.3.579.2.4 62 Unknown [id number] 2.16.840.1.901463.3.579.2.4 62 Unknown [id number] 2.16.840.1.311404.3.579.2.4 62 Unknown [id number] 2.16.840.1.707749.3.579.2.4 62 Unknown [id number] 2.16.840.1.397650.3.579.2.4 62 Unknown [id number] 2.16.840.1.092225.3.579.2.4 62 Unknown [id number] 2.16.840.1.336551.3.579.2.4 62 Unknown [id number] 2.16.840.1.673067.3.579.2.4 62 Unknown [id number] 2.16.840.1.103455.3.579.2.4 62 Social History Date Type Detail Facility Start: 06-07-2021 End: 03-14-2023 Tobacco smoking status NHIS Unknown if ever smoked [facility] Start: 05-04-2019 Occasional [facility] Start: 05-04-2019 None [facility] Start: 05-04-2019 Spouse/ Significant Other [facility] Start: 05-04-2019 Cigarettes [facility] Start: 1950 Sex Assigned At Male [facility] Start: 04-28-2024 End: 06-22-2024 Tobacco smoking status NHIS Ex-smoker (finding) [facility] Start: 04-16-2024 End: 07-02-2024 Sex Male (finding) [facility] History of tobacco use [facility] use [facility] Start: 04-28-2024 Tobacco use and exposure Smokeless tobacco non-user [facility] Start: 04-29-2024 End: 05-11-2024 Alcoholic beverage intake Ex-drinker (finding) [facility] Start: 04-28-2024 End: 04-29-2024 History of Social function [facility] Start: 04-28-2024 End: 04-29-2024 [facility] Utilities [facility] In the past 12 month s has the electric, gas, oil, or water [employer] threatened to shut off services in your home? No [facility] Within the last year , have you been afraid of your partner or ex-partner? No [facility] Do you belong to any clubs or organizations such as islam groups, unions, fraternal or athletic groups, or [...] 1950 Sex assigned at Not on file [facility] Start: 04-29-2024 End: 05-11-2024 Details of drug misuse behavior Misused drugs in past (finding) [facility] Medical Equipment Procedure Code Equipment Code Equipment Origin al Text Equipment Identifier Dates Insertion, vascular access port ([id number]) Vascular port/catheter [id number] FDA Start: 07-02-2024 Insertion, vascular access port ([id number]) Vascular port/catheter ()[id number] FDA Start: 07-09-2024 EGD, with monitored anesthesia care Gastrostomy tube kit, medicated ()[id number] FDA Start: 07-02-2024 Goals Date Patient Goal Desired Activity /State Mental Status Date Assessment Result Facility 07-31-2024 Cognitive function Voice/Name [facility] Work Phone: 07-09-2024 Cognitive function Voice/Name [facility] Work Phone: 07-02-2024 Cognitive function Level Of Cons ciousness Awake;Alert;Appropriate [facility] Work Phone: 07-02-2024 Cognitive function Voice/Name [facility] Work Phone: 05-15-2022 Cognitive function Awake;Alert;Appropriat e [facility] Work Phone: Clinical Notes 04-28-2024 to [...] Oncologist. He acknowledges understanding. Cindy Newell RN [facility] Work Phone: 08-18-2024 Miscellaneous Notes Formattin g [...] Cindy Newell RN documented in this encounter [facility] 08-18-2024 Progress note [facility] 08-18-2024 Progress note Note Date/Time August 18, 2024 9:13am [facility] [address] [address] OFFICE VISIT Date of Service: 08/18/24 0834 MR#: [id number] Acct: [id number] Name: ROBERT RON Rep #: [id number] : 1950 From: Franco Pérez MD Age/Sex: 73/M Location: [facility] Status: Signed HPI Subjective Date of [...] level III node. He was referred to [facility], had ENT evaluation with biopsy on 05/14/2024, [...] stable, nasal bleed hasimproved after cauterization . [facility] Medical History Encounter for education Wears glasses [...] mg 1 - 2 tab PO Q6H IA N PRN pain 06/22/24 08/18/24 History tablet [...] applicable) CC: Dr. Bulmaro Curtis MD ~ [facility] Work Phone: 1(329) 418-938505-21-2025 Progress [facility] [address] [place] [address] OFFICE VISIT Date of Service: 08/12/24 1302 MR#: [id number] Acct: [id number] Name: ROBERT RON Rep #: [id number] : 1950 From: Cipriano Vinita delgado DO Age/Sex: 73/M [place] [facility] [place]: Signed Intake Vital Signs 06/29/24 10:27 [...] mg 1 - 2 tab PO Q6H IA N PRN pain 06/22/24 08/12/24 History tablet [...] mg 1 - 2 tab PO Q6H IA N PRN pain 06/22/24 Unknown History tablet [...] any time. ? 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 Note Date/Time August 12, 2024 1:26p m [facility] [place] [address] OFFICE VISIT Date of Service: 08/12/24 1302 MR#: [id number] Acct: [id number] Name: ROBERT RON Rep #: [id number] : 1950 From: Cipriano delgado DO Age/Sex: 73/M [place] [facility] Status: Signed Intake Vital Signs 06/29/24 10:27 [...] mg 1 - 2 tab PO Q6H IA N PRN pain 06/22/24 08/12/24 History tablet [...] mg 1 - 2 tab PO Q6H IA N PRN pain 06/22/24 Unknown History tablet [...] any time. ? 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 He was referred to [facility], had ENT evaluation with biopsy on 05/14/2024, [...] is stable, getting L sided nasal bleed. [facility] Medical History Encounter for education Wears glasses [...] mg 1 - 2 tab PO Q6H IA N PRN pain 06/22/24 08/10/24 History tablet [...] applicable) CC: Dr. Bulmaro Curtis MD ~ [facility]05-19-2025 Progress note Author Franco Pérez [facility] Note Date/Time August 10, 2024 9:26a m [facility] [address] [address] OFFICE VISIT Date of Service: 08/10/24 0845 MR#: [id number] Acct: [id number] Name: ROBERT RON Rep #: [id number] : 1950 From: Franco Pérez MD Age/Sex: 73/M [place] [facility] Status: Signed HPI Subjective Date of Service [...] level III node. He was referred to [facility], had ENT evaluation with biopsy on 05/14/2024, [...] is stable, getting L sided nasal bleed. [facility] Medical History Encounter for education Wears glasses [...] mg 1 - 2 tab PO Q6H IA N PRN pain 06/22/24 08/10/24 History tablet [...] applicable) CC: Dr. Bulmaro Curtis MD ~ [facility] [employer] [facility] Work Phone: 1(201) 644-618404-22-2025 Procedure note [facility] Speech Pathology [address] [place] [place] [address] Modified Barium Swallow Study MR#: [id number] Acct: [id number] Name: ROBERT RON Rep #:[id number] : 1950 73 From: Rosalia Joseph, [facility]-WIRE SPOOLER Modified Barium Swallow Patient Information Study Date: [...] extractedbefore chemoradiation treatment. He also had mandibular joaqumi removed. 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 WIRE SPOOLER recommended MBSS to determine baseline swallow function [...] cup: Result: 2= enter airway/above vocal folds/ejected [place] Thick Liquid via large single sip: cup: [...] Status Active ST Patient: Active Contact Information [facility] Speech Therapy:: Rosalia Pollard M.A. CCC-WIRE SPOOLER? Speech-Language Pathologist?? [facility] [address] [place] [address]? ?? [phone] 07/14/24 1524 SAFIA Vallejo-WIRE SPOOLER> Date/Time Rosalia Pollard M.A. CCC-WIRE SPOOLER Co-Signature Required for all Medicare patients Date/Time Co-Signature CC: ~ [facility]04-17-2025 History and physical note Author Daniel Sánchez [facility] Note Date/Time July 09, 2024 10: 56am [facility] Medical Records Department [address] [place] [address] History & Physical Exam 07/09/24 1054 MR#: [id number] Acct: [id number] Name: ROBERT RON Rep #:[id number] : 1950 73 From: Daniel Sánchez MD PCP: Dr. Bulmaro Curtis MD Status:REG S DC Location: [place] [address]-1 HPI - General General Date of Admission: 07/09/24 Date of Service: 07/09/24 Chief Complaint: non functional medport HPI Narrative ROBERT RON, is a 73 M who presents for revision of medport. It was placed about a week ago but oncology having issues with it functioning properly. xray seems to suggest a possible kink in tubing [facility] Medical History Encounter for education Wears glasses [...] mg 1 - 2 tab PO Q6H IA N PRN pain 06/22/24 Unknown History tablet [...] Sánchez MD; Dr. Bulmaro Curtis MD~ Signed [facility] Work Phone: 1(930) 622-246304-17-2025 Consult note Author Jovon [facility] Note Date/Time July 09, 2024 10: 48am [facility] Medical Records Department [address] [place] [address] Pre-Anesthesia Evaluation 07/09/24 1028 MR#: [id number] Acct: [id number] Name: ROBERT RON Rep #:[id number] : 1950 73 From: Jovon Martin MD PCP: Dr. Bulmaro Curtis MD Status:REG S DC Y Race: C Location: [place] [address] ASA Classification* ASA Classification ASA Classification: 3 [...] CHEST MEDIPORT Anesthesia History Anesthesia History - textile broker: Anesthesia History - textile broker Hx Hospitalization Yes 07/07/24 10:45 Any Problems [...] coffee at 8:15 AM.) PONV PONV - textile broker: PONV - textile broker Female No 07/07/24 10:45 HX of Motion [...] 07/09/24 10:02 Respiratory Assessment Respiratory Assessment - textile broker: Respiratory Tract Infection Hx - textile broker Hx Respiratory Tract Infection No 07/07/24 10:45 STOP Sleep Apnea STOP Sleep Apnea - textile broker: STOP Sleep Apnea - textile broker Hx Hypertension Yes 07/07/24 10:45 Hx Sleep [...] Tobacco Use History Tobacco Use History - textile broker: Tobacco Use History - textile broker Tobacco Use Smoking Status Former smoker 07/07/24 10:45 Hx Tobacco Use Yes 07/07/24 10:45 Years Smoking Packs Smoked per Day Smoking Cessation Date was Yes - quit smoking within 15 07/07/24 10:45 within the last 15 years years Hx Smoking Cessation Date 04/03/19 07/07/24 10:45 Hx Smoking Cessation Counseling Hematologic Medial History Hematologic Hx - textile broker: Hematologic Medical Hx - clinical project manager Hx of Blood Transfusion No 07/07/24 10:45 [...] confused, unrespo /Reproduction History /Reproductive History - textile broker: /Reproductive Hx- textile broker Hx Now No 07/07/24 10:45 Gestational Age (in weeks): EDC: Hx Hx Para Hx Section SAB No 07/07/24 10:45 Active Medications Active Medications: Current Medications Generic Name Dose Route Start Last Admin Trade Name Freq PRN Reason Stop Dose Admin Cefazolin Sodium 3 gm/ N/A 30 mls @ 600 mls/hr 07/09/24 11:30 IV 07/09/24 11:32 INTRAOP ONE [facility] Medical History Encounter for education Wears glasses [...] mg 1 - 2 tab PO Q6H IA N PRN pain 06/22/24 Unknown History tablet [...] MD Cosigner Signature: Date CC: ~ Signed [facility] Work Phone: 1(490) 853-252004-17-2025 Radiology Diagnostic study note [facility] Imaging Services [address] [place] [place], [place] [address] CXR for Line Placement MR#: [id number] Acct: [id number] Name: ROBERT RON Rep #: [id number] : 1950 M 73 From: Iván Ramírez MD PCP: Dr. Bulmaro Curtis MD Status: REG S DC Study:CXR for Line Placement Date of Exam: 07/09/24 Exam# [id number] Ordering Dr: St mary Sánchez MD EXAM: [...] of the left brachiocephalic vein. Reading Location: [place] [address] CC: Dr. Daniel Sánchez MD; Dr. Bulmaro Curtis MD ~ [employer] St[employer]: Signed [facility]04-17-2025 Consult note [facility] Medical Records Department [address] [place] [address] Anesthesia Postop Eval I 07/09/24 1221 MR#: [id number] Acct: [id number] Name: ROBERT RON Rep #:[id number] : 1950 73 From: Isaiah rodriguez PROGRESSIVE DIE MAKER PCP: Dr. Bulmaro Curtis MD Status:REG S DC Y Race: C Location: [place] [address] Anesthesia: Postop Eval I Current Vital Signs [...] Eval 1 completed: Yes 07/09/24 1224 ero PROGRESSIVE DIE MAKER> Date _ Isaiah Bravoo PROGRESSIVE DIE MAKER Cosigner Signature: Date CC: ~ Signed [facility]04-17-2025 Discharge summary [facility] Medical Records Department [address] [place] [address] Instructions for Home/Discharge Instructions 07/09/24 1207 MR#: [id number] Acct: [id number] Name: ROBERT RON Rep #:[id number] : [...] Attending Provider: Daniel Sánchez Primary Care Provider: Bulamro Curtis Chi Instructions Print Language: Vietnamese Discharge Orders/Prescriptions Prescriptions: Continued rivaroxaban 15 mg [...] CC: Dr. Bulmaro Curtis MD ~ Signed [facility]04-17-2025 History and physical note [facility] Medical Records Department [address] [place] [address] History & Physical Exam 07/09/24 1054 MR#: [id number] Acct: [id number] Name: ROBERT RON Rep #:[id number] : 1950 73 From: Daniel Sánchez MD PCP: Dr. Bulmaro Chi Ever, MD Status:REG S DC Location: [facility] HPI - General General Date of Admission: 07/09/24 Date of Service: 07/09/24 Chief Complaint: non functional medport HPI Narrative ROBERT RON, is a 73 M who presents for revision of medport. It was placed about a week ago but oncology having issues with it functioning properly. xray seems to suggest a possible kink in tubing [facility] Medical History Encounter for education Wears glasses [...] mg 1 - 2 tab PO Q6H IA N PRN pain 06/22/24 Unknown History tablet [...] Sánchez MD; Dr. Bulmaro Curtis MD~ Signed [facility]04-17-[facility] Consult note [facility] Medical Records Department [address] [place] [address] Pre-Anesthesia Evaluation 07/09/24 1028 MR#: [id number] Acct: [id number] Name: ROBERT RON Rep #:[id number] : 1950 73 From: Jovon Martin MD PCP: Dr. Bulmaro Curtis MD Status:REG S DC Y Race: C Location: [place] [address] ASA Classification* ASA Classification ASA Classification: 3 [...] CHEST MEDIPORT Anesthesia History Anesthesia History - textile broker: Anesthesia History - textile broker Hx Hospitalization Yes 07/07/24 10:45 Any Problems [...] coffee at 8:15 AM.) PONV PONV - textile broker: PONV - textile broker Female No 07/07/24 10:45 HX of Motion [...] 07/09/24 10:02 Respiratory Assessment Respiratory Assessment - textile broker: Respiratory Tract Infection Hx - textile broker Hx Respiratory Tract Infection No 07/07/24 10:45 STOP Sleep Apnea STOP Sleep Apnea - textile broker: STOP Sleep Apnea - textile broker Hx Hypertension Yes 07/07/24 10:45 Hx Sleep [...] Tobacco Use History Tobacco Use History - textile broker: Tobacco Use History - textile broker Tobacco Use Smoking Status Former smoker 07/07/24 10:45 Hx Tobacco Use Yes 07/07/24 10:45 Years Smoking Packs Smoked per Day Smoking Cessation Date was Yes - quit smoking within 07/07/24 10:45 within the last 15 years years Hx Smoking Cessation Date 04/03/19 07/07/24 10:45 Hx Smoking Cessation Counseling Hematologic Medial History Hematologic Hx - textile broker: Hematologic Medical Hx - clinical project manager Hx of Blood Transfusion No 07/07/24 10:45 [...] confused, unrespo /Reproduction History /Reproductive History - textile broker: /Reproductive Hx- textile broker Hx Now No 07/07/24 10:45 Gestational Age (in weeks): EDC: Hx Hx Para Hx Section SAB No 07/07/24 10:45 Active Medications Active Medications: Current Medications Generic Name Dose Route Start Last Admin Trade Name Freq PRN Reason Stop Dose Admin Cefazolin Sodium 3 gm/ N/A 30 mls @ 600 mls/hr 07/09/24 11:30 IV 07/09/24 11:32 INTRAOP ONE [facility] Medical History Encounter for education Wears glasses [...] mg 1 - 2 tab PO Q6H IA N PRN pain 06/22/24 Unknown History tablet [...] MD Cosigner Signature: Date CC: ~ Signed [facility]04-14-2025 Radiology Diagnostic study note [facility] Imaging Services [address] [place] [address] CXR for Line Placement MR#: [id number] Acct: [id number] Name: ROBERT RON Rep #: [id number] : 1950 M 73 From: Sean Ochoa DO PCP: Dr. Bulmaro Curtis MD Status: [facility] C Study:CXR for Line Placement Date of Exam: 07/06/24 Exam# [id number] Ordering Dr: Elicia Yin PA-C EXAM: PA [...] of the left lower lobe. Reading Location: [id number] CC: COY Yin; Dr. Bulmaro Curtis MD ~ [employer]: Signed [facility]04-10-2025 Consult note Author Jovon Martin [facility] Note Date/Time July 02, 2024 1:0 0pm [facility] Medical Records Department [address] [place] [address] Anesthesia Postop Eval II 07/02/24 1259 MR#: [id number] Acct: [id number] Name: ROBERT RON Rep #:[id number] : 1950 73 From: Jovon Martin MD PCP: Dr. Bulmaro Curtis MD Status:REG S DC Y Race: C Location: [place] [address] Anesthesia Postop Eval I Sum Postop Eval Completion status Anesthesia document: Postop Eval 1 completed: No Anesthesia Postop Eval I Summary Anesthesia Postop Eval I Summary: Anesthesia Postop Eval I: Assessment Summary Airway patent Yes 07/02/24 12:32 PROGRESSIVE DIE MAKER.MEDM Spontaneous unlabored Yes 07/02/24 12:32 PROGRESSIVE DIE MAKER.MEDM respirations Mental status Awake 07/02/24 12:32 PROGRESSIVE DIE MAKER.MEDM nausea No 07/02/24 12:32 PROGRESSIVE DIE MAKER.MEDM Vomiting No 07/02/24 12:32 PROGRESSIVE DIE MAKER.MEDM Anesthesia Postop Eval I: Fluid Summary Crystalloid volume administer 800 07/02/24 12:32 PROGRESSIVE DIE MAKER.MEDM (ml) Colloids volume administered ( ml) Blood Product volume administered (ml) Total IV fluid infused 800 07/02/24 12:32 PROGRESSIVE DIE MAKER.MEDM Anesthesia Postop Eval I: Summary Notes Anesthesia Complication No 07/02/24 12:32 PROGRESSIVE DIE MAKER.MEDM Anesthesia Complication Comment: Post-operative progress note Anesthesia: Postop Eval II Evaluation Mental status: Awake and Calm Pain Level: 1 nausea: No Vomiting: No Complications Anesthesia Complication: No 07/02/24 1300 <Electronically signed by Jovon dove MD> Date _ Jovon Martin MD Cosigner Signature: Date CC: ~ Signed [facility] Work Phone: 1(524) 669-161704-10-2025 Discharge summary Author Daniel Sánchez [facility] Note Date/Time July 02, 2024 12: 33pm [facility] Medical Records Department [address] [place] [address] Instructions for Home/Discharge Instructions 07/02/24 1229 MR#: [id number] Acct: [id number] Name: ROBERT RON Rep #:[id number] : [...] Provider: Bulmaro Curtis Chi Instructions Print Language: Vietnamese Discharge Orders/Prescriptions Prescriptions: New oxycodone-acetaminophen [Percocet] 5-325 [...] CC: Dr. Bulmaro Curtis MD ~ Signed [facility] Work Phone: 1(738) 313-964204-10-2025 Consult note Author Newton Steen [facility] Note Date/Time July 02, 2024 12: 32pm [facility] Medical Records Department [address] [place] [address] Anesthesia Postop Eval I 07/02/24 1232 MR#: [id number] Acct: [id number] Name: ROBERT RON NAEL Rep #:[id number] : 1950 73 From: Newton Steen CRNA PCP: Dr. Bulmaro Curtis MD Status:REG S DC Y Race: C Location: [place] [address] Anesthesia: Postop Eval I Current Vital Signs [...] CRNA Cosigner Signature: Date CC: ~ Signed [facility] Work Phone: 1(233) 818-768604-10-2025 Radiology Diagnostic study note [facility] Imaging Services [address] [place] [address] CXR for Line Placement MR#: [id number] Acct: [id number] Name: ROBERT RON Rep #: [id number] : 1950 M 73 From: Albania Marks MD PCP: Dr. Bulmaro Curtis MD Status: REG S DC Study:CXR for Line Placement Date of Exam: 07/02/24 Exam# [id number] Ordering Dr: St mary Sánchez MD EXAM: [...] 2. No active cardiopulmonary disease. Reading Location: [place] [address] CC: Dr. Daniel Sánchez MD; Dr. Bulmaro Curtis MD ~ Kiln Stacker: Signed [facility]04-10-2025 Consult note [facility] Medical Records Department [address] [place] [address] Anesthesia Postop Eval II 07/02/24 1259 MR#: [id number] Acct: [id number] Name: ROBERT RON Rep #:[id number] : 1950 73 From: Jovon Martin MD PCP: Dr. Bulmaro Curtis MD Status:REG S DC Y Race: C Location: [place] [address] Anesthesia Postop Eval I Sum Postop Eval Completion status Anesthesia document: Postop Eval 1 completed: No Anesthesia Postop Eval I Summary Anesthesia Postop Eval I Summary: Anesthesia Postop Eval I: Assessment Summary Airway patent Yes 07/02/24 12:32 PROGRESSIVE DIE MAKER.MEDM Spontaneous unlabored Yes 07/02/24 12:32 PROGRESSIVE DIE MAKER.MEDM respirations Mental status Awake 07/02/24 12:32 PROGRESSIVE DIE MAKER.MEDM nausea No 07/02/24 12:32 PROGRESSIVE DIE MAKER.MEDM Vomiting No 07/02/24 12:32 PROGRESSIVE DIE MAKER.MEDM Anesthesia Postop Eval I: Fluid Summary Crystalloid volume administer 800 07/02/24 12:32 PROGRESSIVE DIE MAKER.MEDM (ml) Colloids volume administered ( ml) Blood Product volume administered (ml) Total IV fluid infused 800 07/02/24 12:32 PROGRESSIVE DIE MAKER.MEDM Anesthesia Postop Eval I: Summary Notes Anesthesia Complication No 07/02/24 12:32 PROGRESSIVE DIE MAKER.MEDM Anesthesia Complication Comment: Post-operative progress note Anesthesia: Postop Eval II Evaluation Mental status: Awake and Calm Pain Level: 1 nausea: No Vomiting: No Complications Anesthesia Complication: No 07/02/24 1300 la > Date _ Jovon Anderson Signature: Date CC: ~ Signed [facility]04-10-2025 Procedure note [facility] Medical Records Department [address] [place] [address] Operative Report 07/02/24 1233 MR#: [id number] Acct: [id number] Name: ROBERT RON Rep #:[id number] : 1950 73 From: Daniel Sánchez MD PCP: Dr. Bulmaro Curtis MD Status:REG S [place] Location: [place] [address] Problems Associated Problem List Diagnoses (1) Primary squamous cell carcinoma of base of tongue: Multi Select Codes Respiratory/Cardiovascular Resp/Cardiovascular CPT Codes: 16881 Insert tunneled cv cath Digestive Digestive CPT Codes: [address] gastrostomy tube Operative Report (Standard) Operative Information Date of Procedure: 07/02/24 Pre-Operative Diagnosis: Tongue cancer Post-Operative Diagnosis: Same Surgery/Procedure Performed: 1. Left subclavian Mediport placement with C arm 2. EGD 3. Percutaneous endoscopic gastrostomy tube placement (PEG) order dispatcher: No Type of Anesthesia: General and Local [...] apply: Implanted device Implanted device details: 8 Mongolian PowerPort Estimated Blood Loss: 5 mL Specimen [...] Sánchez MD; Dr. Bulmaro Curtis MD~ Signed [facility]04-10-2025 Discharge summary [facility] Medical Records Department [address] [place] [address] Instructions for Home/Discharge Instructions 07/02/24 1229 MR#: [id number] Acct: [id number] Name: ROBERT RON Rep #:[id number] : [...] Provider: Bulmaro Curtis Chi Instructions Print Language: Vietnamese Discharge Orders/Prescriptions Prescriptions: New oxycodone-acetaminophen [Percocet] 5-325 [...] CC: Dr. Bulmaro Curtis MD ~ Signed [facility]04-10-2025 Consult note [facility] Medical Records Department [address] [place] [address] Anesthesia Postop Eval I 07/02/24 1232 MR#: [id number] Acct: [id number] Name: ROBERT RON Rep #:[id number] : 1950 73 From: Newton Steen CRNA PCP: Dr. Bulmaro Curtis MD Status:REG S DC Y Race: C Location: [place] [address] Anesthesia: Postop Eval I Current Vital Signs [...] Eval 1 completed: No 07/02/24 1232 ds PROGRESSIVE DIE MAKER> Date _ Newton Steen PROGRESSIVE DIE MAKER Cosigner Signature: Date CC: ~ Signed [facility]04-10-2025 Consult note Author Jovon Martin [facility] Note Date/Time July 02, 2024 10: 13am [facility] Medical Records Department [address] [place] [address] Pre-Anesthesia Evaluation 07/02/24 0948 MR#: [id number] Acct: [id number] Name: ROBERT RON Rep #:[id number] : 1950 73 From: Jovon Martin MD PCP: Dr. Bulmaro Curtis MD Status:REG S DC Y Race: C Location: [place] [address] ASA Classification* ASA Classification ASA Classification: 3 [...] tube placement Anesthesia History Anesthesia History - textile broker: Anesthesia History - textile broker Hx Hospitalization No 06/22/24 17:28 Any Problems [...] water at 7:10 AM.) PONV PONV - textile broker: PONV - textile broker Female No 06/22/24 17:28 HX of Motion [...] 07/02/24 08:54 Respiratory Assessment Respiratory Assessment - textile broker: Respiratory Tract Infection Hx - textile broker Hx Respiratory Tract Infection No 06/22/24 17:28 STOP Sleep Apnea STOP Sleep Apnea - textile broker: STOP Sleep Apnea - textile broker Hx Hypertension Yes: PER PT , CONTROLLED [...] Tobacco Use History Tobacco Use History - textile broker: Tobacco Use History - textile broker Tobacco Use Smoking Status Former smoker 06/22/24 17:28 Hx Tobacco Use No 06/22/24 17:28 Years Smoking Packs Smoked per Day Smoking Cessation Date was Yes - quit smoking within 15 06/22/24 17:28 within the last 15 years years Hx Smoking Cessation Date 05/05/19 06/22/24 17:28 Hx Smoking Cessation Counseling Hematologic Medial History Hematologic Hx - textile broker: Hematologic Medical Hx - clinical project manager Hx of Blood Transfusion No 06/22/24 17:28 [...] confused, unrespo /Reproduction History /Reproductive History - textile broker: /Reproductive Hx- textile broker Hx Now Gestational Age (in weeks): EDC: [...] mg 1 - 2 tab PO Q6H IA N PRN pain 06/22/24 Unknown History tablet [...] MD Cosigner Signature: Date CC: ~ Signed [facility] Work Phone: 1(987) 197-634904-10-2025 History and physical note Author Daniel Sánchez [facility] Note Date/Time July 02, 2024 9:4 4am [facility] Medical Records Department [address] [place] [address] History & Physical Exam 07/02/24941 MR#: [id number] Acct: [id number] Name: ROBERT RON Rep #:[id number] : 1950 73 From: Daniel Sánchez MD PCP: Dr. Bulmaro Curtis MD Status:REG S [place] Location: [place] [address] HPI - General General Date of Admission: [...] for thePEG and port to be placed. [facility] Medical History (Updated 06/29/24 @ 10:55 by Ashly Laguerre TRUSS DESIGNER, TRUSS DESIGNER-C) Encounter for education Wears glasses Edentulous High [...] mg 1 - 2 tab PO Q6H IA N PRN pain 06/22/24 Unknown History tablet [...] Sánchez MD; Dr. Bulmaro Curtis MD~ Signed [facility] Work Phone: 1(236) 931-789604-10-2025 Consult note [facility] Medical Records Department [address] [place] [address] Pre-Anesthesia Evaluation 07/02/2448 MR#: [id number] Acct: [id number] Name: ROBERT RON Rep #:[id number] : 1950 73 From: Jovon Martin MD PCP: Dr. Bulmaro Curtis MD Status:REG S DC Y Race: C Location: [place] [address] ASA Classification* ASA Classification ASA Classification: 3 [...] tube placement Anesthesia History Anesthesia History - textile broker: Anesthesia History - textile broker Hx Hospitalization No 06/22/24 17:28 Any Problems [...] water at 7:10 AM.) PONV PONV - textile broker: PONV - textile broker Female No 06/22/24 17:28 HX of Motion [...] 07/02/24 08:54 Respiratory Assessment Respiratory Assessment - textile broker: Respiratory Tract Infection Hx - textile broker Hx Respiratory Tract Infection No 06/22/24 17:28 STOP Sleep Apnea STOP Sleep Apnea - textile broker: STOP Sleep Apnea - textile broker Hx Hypertension Yes: PER PT , CONTROLLED [...] Tobacco Use History Tobacco Use History - textile broker: Tobacco Use History - textile broker Tobacco Use Smoking Status Former smoker 06/22/24 17:28 Hx Tobacco Use No 06/22/24 17:28 Years Smoking Packs Smoked per Day Smoking Cessation Date was Yes - quit smoking within 15 06/22/24 17:28 within the last 15 years years Hx Smoking Cessation Date 05/05/19 06/22/24 17:28 Hx Smoking Cessation Counseling Hematologic Medial History Hematologic Hx - textile broker: Hematologic Medical Hx - clinical project manager Hx of Blood Transfusion No 06/22/24 17:28 [...] confused, unrespo /Reproduction History /Reproductive History - textile broker: /Reproductive Hx- textile broker Hx Now Gestational Age (in weeks): EDC: [...] mg 1 - 2 tab PO Q6H IA N PRN pain 06/22/24 Unknown History tablet [...] MD Cosigner Signature: Date CC: ~ Signed [facility]04-10-2025 History and physical note [facility] Medical Records Department [address] [place] [address] History & Physical Exam 07/02/24 0942 MR#: [id number] Acct: [id number] Name: ROBERT RON Rep #:[id number] : 1950 73 From: Daniel Sánchez MD PCP: Dr. Bulmaro Curtis MD Status:REG S [place] Location: [place] [address] HPI - General General Date of Admission: [...] for thePEG and port to be placed. [facility] Medical History (Updated 06/29/24 @ 10:55 by Ashly Laguerre TRUSS DESIGNER, TRUSS DESIGNER-C) Encounter for education Wears glasses Edentulous High [...] mg 1 - 2 tab PO Q6H IA N PRN pain 06/22/24 Unknown History tablet [...] Sánchez MD; Dr. Bulmaro Curtis MD~ Signed [facility]04-10-2025 [facility]03-20-2025 History of Present illness Narrative* Franco Sanchez [...] AM EDT ORAL SURGERY PROCEDURE ROOM NOTE [facility] Surgical Product(s): Routine extraction of all remaining [...] was obtained: yes Pre-op Diagnosis: Postoperative pain [183182] Chronic periodontal disease Caries PROCEDURE TIME OUT [...] Home Bev Mckeon DDS documented in this [id number] NoteORAL SURGERY PROCEDURE ROOM NOTE [facility] Surgical Product(s): Routine extraction of all remaining teeth (3,4,5,6,7,8,9,11,12,13,14,18,20,21,22,23,24,25,26,27,28,29,31,32) , alveoloplasty of x4 quadrants (UR/LR/LL/UL) and bilateral mandibular joaquim (LL/LR) removal under local anesthesia. Procedure done as clearance prior to chemo/radiation. PMH: Reviewed, no change. Antibiotic prophylaxis indicated/taken: no Discussed risks, benefits, and alternatives of treatment. All of the patient's questions were answered, and informed consent was obtained: yes Pre-op Diagnosis: Postoperative pain [878509] Chronic periodontal disease Caries PROCEDURE TIME OUT [...] Minimal (<5 ml) Disposition: Home Dari Diaz [facility]03-19-2025 NoteReached patient informed him medical clearance appt, no dental insurance on file, he will receive a bill, for our services per my school crossing guard supervisor, gave him the number to financial assistance to see if they can assist , he said thank you and will reach out now.[employer]03-19-2025 NoteReached patient informed him medical clearance appt, no dental insurance on file, he will receive a bill, for our services per my school crossing guard supervisor, gave him the number to financial assistance to see if they can assist , he said thank you and will reach out now.[employer]03-19-2025 NoteSituation: OS Procedure Insurance Ques Background: Pt is wanting to know if office submitted to insurance company and if they will be paying copay? Assessment: please contact pt to discuss Recommendation: Telephone Information: [facility] [id number] Evaluation note* Diagnosis Onset Date Resolution Status [...] base of tongue chronic July 02 8:20am [facility] Work Phone: 1(374) 666-934403-04-2025 Evaluation note* Diagnosis Onset Date Resolution Status [...] venous access port acute July 09 9:13am [facility] Work Phone: [phone]) [phone] Evaluation note* Diagnosis Onset Date Resolution Status [...] base of tongue chronic July 15 8:43am [facility] Work Phone: 1([phone]) [phone] Evaluation note* Diagnosis Onset Date Resolution Status [...] of tongue chronic August 03, 2024 7:39am [facility] Work Phone: 1([phone]) 521-979203-04-2025 Evaluation note* Diagnosis Onset Date Resolution Status [...] 27, 2024 7:48am Primary squamous cell carcin rosanan of base of tongue chronic July 29, [...] of tongue chronic August 10, 2024 7:39am [facility] Work Phone: 1([phone]) [phone] Evaluation note* Diagnosis Onset Date Resolution Status Admit Date 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 May 26 12:55pm 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 June 02 3:29pm Encounter for insertion of v enous access port acute June 03, 2024 9:24am Percutaneous endoscopic gastrostomy status acute June 03 025 9:24am Encounter for education acute A [facility]2024 10:16am Primary squamous cell carcin rosanna of [...] of tongue chronic August 12, 2024 12:47pm [facility] [employer] [facility] Work Phone: 1([phone]) 293-894303-04-2025 Evaluation note* Diagnosis Onset Date Resolution Status [...] of tongue chronic August 18, 2024 7:38am [facility] Work Phone: [phone]) [phone] Evaluation note* Diagnosis Onset Date Resolution Status [...] of tongue chronic August 19, 2024 1:10pm [facility] [employer] [facility] Work Phone: 1([phone]) [phone] Evaluation note* Diagnosis Onset Date Resolution Status [...] base of tongue chronic September 15 1:54pm [facility] Work Phone: 1([phone]) 500-229802-24-2025 NoteSamy Cindy High from [facility] said we sent them a referral for this pt but she needs information. She said notes are on appointment notes but that she needs Pathology, Op notes and Ct scans sent separately. You can contact her at [phone] [facility] Note SPEECH LANGUAGE PATHOLOGY OUTPATIENT [...] Dubois) who presents today, 05/13/2024, at the [facility] for evaluation of right neck mass, parotid lesion and base of tongue tumor. 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 Plan: chemoradiation in [place], likely PEG placement SUBJECTIVE: Patient subjective/goals: Pt arrives early and is seen in conjunction with ENT. He is cooperative throughout. Pain: pt reports intermittent right lateral neck pain, associated with enlarged lymph nodes Social History: lives with near [place] Occupational History: retired, worked at [employer] in [place] OBJECTIVE: SWALLOWING PATIENT REPORT Onset: pt reports [...] with voicing more recently, but no pain Slater Swallow Protocol: State: alert; maintained across session [...] to consult with his oncology team in [place] about WIRE SPOOLER's associated with their team. He is welcome to return to [facility] for speech therapy, and is advised that I'd probably see him approximately 4 times during his chemoradiation, and 1-2 of those could be virtual. Reviewed all of the above and taught pt pharyngocize exercises, which he demonstrated in return. PLAN: Treatment Modalities: swallowing, lymphedema, dysarthrai Frequency of Visits: 2-4x/month Duration: unknown; may seek treatment elsewhere Founder Goals: 1. Patient will meet nutrition and [...] coordinate the swallow mechanism, patient will complete 10l0ncki of effortful swallows. Patient will participate in head and neck lymphedema (more content not included)...[employer]02-19-2025 NoteWe will send referrals to [facility] for: Medical Oncology (Chemotherapy) Radiation Oncology (Radiation Therapy) We will send a referral to [facility] for Speech Therapy: Linda Powers [employer] [id number] Romel Robledo [facility] Work Phone: 1([phone]) 724-182502-14-2025 Hospital Discharge instructions* Discharge Instructions* Steve Chery RN - 05/08/2024 8:51 AM EST Images from the original note were not included. DISCHARGE INSTRUCTIONS Robert Ron [id number] The following is a brief overview of [...] 05/13/2024 1:15 PM Simon Packer MD ENT [facility] 05/13/2024 2:00 PM Kristofer Anderson, SAFIA-WIRE SPOOLER SPEECH ENT [facility] 05/13/2024 3:[address] OncMed [facility] 05/22/2024 11:00 AM Sunny Wagner DDS [facility] PERIOPERATIVE DISCHARGE/HOME-GOING INSTRUCTIONS ANESTHESIA - GENERAL (ADULT) If a problem arises, you may contact your physician by calling [phone] and asking for the resident tongue and groove machine operator for ENT service. Special Care Needs: Activity: [...] very uncomfortable and can t urinate, call [phone] or come to the emergency room. A [...] an appointment with the sleep clinic at [phone] to be evaluated and scheduled for the [...] less likely. For more informati on visit: [email or web address] Some medications or combinations of medications can [...] and treated if needed documented in this [id number] Surgery Surgical operation note* OP Note - Simon Packer MD - 05/08/2024 7:47 AM EST Operative Report DATE OF SERVICE: 05/08/24 PATIENT: Robert Ron PREOPERATIVE DIAGNOSIS: 1. Oropharyngeal mass POSTOPERATIVE DIAGNOSIS: 1. Oropharyngeal mass, squamous cell carcinoma PROCEDURE: Direct laryngoscopy with biopsy, CPT 69140 SURGEON: Simon Packer MD PULLMAN CONDUCTOR: Resident surgeons: MD Jimenez Craig MD ANESTHESIA: [...] Packer was present for the entire procedure. [id number] Miscellaneous Notes* OP Note - Simon Packer MD - 05/08/2024 7:47 AM EST Operative Report DATE OF SERVICE: 05/08/24 PATIENT: Robert Ron PREOPERATIVE DIAGNOSIS: 1. Oropharyngeal mass POSTOPERATIVE DIAGNOSIS: 1. Oropharyngeal mass, squamous cell carcinoma PROCEDURE: Direct laryngoscopy with biopsy, CPT 60686 SURGEON: Simon Packer MD PULLMAN CONDUCTOR: Resident surgeons: MD Jimenez Craig MD ANESTHESIA: [...] were discussed with the patient and/or legal client relations representative. The risks, benefits and alternatives were reviewed. Questions regarding blood transfusions were answered. The patient /or the patient s legal client relations representative agree with the plan for transfusion of blood and/or blood components. documented in this [id number] Progress note* Blood Attestation - Arnie Mcgrath MD - 05/08/2024 7:15 AM EST Blood Attestation: ATTESTATION OF INFORMED CONSENT FOR BLOOD: The transfusion of blood and/or blood components were discussed with the patient and/or legal client relations representative. The risks, benefits and alternatives were reviewed. Questions regarding blood transfusions were answered. The patient /or the patient s legal client relations representative agree with the plan for transfusion of blood and/or blood components. [employer] Work Phone: 1(626) 411-405502-11-2025 Telephone encounter Note* Telephone Encounter - Cindy [...] send dental clearance checklist. Cindy Newell RN [employer] Work Phone: 1(123) [phone] Miscellaneous Notes* Telephone Encounter - Cindy Newell [...] checklist. Cindy Newell, RN documented in this [id number] NoteSW attempted to make Distress Screen outreach call to Pt, but Pt didn't answer the phone. SW left a message explaining reason for call and requesting a return call. SW will remain available. SHANIA Rodriguez [id number] [employer] [id number] Telephone encounter Note* Telephone Encounter - Gela Kelly LSW - 05/04/2024 10:27 AM EST SW attempted to make Distress Screen outreach call to Pt, but Pt didn't answer the phone. SW left amessage explaining reason for call and requesting a return call. SW will remain available. SHANIA Rodriguez [id number] [employer] Work Phone: [phone] Miscellaneous Notes* Telephone Encounter - Gela Kelly LSW - 05/04/2024 10:27 AM EST SW attempted to make Distress Screen outreach call to Pt, but Pt didn't answer the phone. SW left amessage explaining reason for call and requesting a return call. SW will remain available. SHANIA Rodriguez [id number] documented in this [id number] Instructions* Patient Instructions* Evie Blank APRN-CNP - [...] for pain. Please hold all Vitamin E, [place] 3, fish oil and herbal supplements for [...] otherwise contacted. ? Expect a call from [employer] one business day prior to surgery for [...] your Preparing for Your Surgery/Procedure booklet or [email or web address] if you have questions. Contact the Pre-Admission Testing department at [phone] or your surgeon's office with any questions [...] stay with you after surgery. Please call [facility] if you need transportation assistance or have concerns about going home [phone]. ? SLEEP APNEA PATIENTS: Bring your sleep apnea machine and mask. ? PLEASE BE ON TIME. A late arrival may result in the cancellation/ delay of your surgery. [facility]; it is our pleasure to care for you documented in this [id number] Consult note* Evie Blank APRN-CNP - 04/28/2024 12:43 PM EST Images from the original note were not included. Pre-Admission Testing Consultation Robert Ron, [id number] 73 year old Male 04/29/2024 Consult placed to [facility] by Dr. Packer due to significant PMH of PE [facility] Triage Risk Score Total Score: 5 2 [...] Xarelto 2 days prior procedure, PCP at [facility] notified ( see scan doc) LABS, [...] Interviewer signature: DIEGO Shearer 7:47 AM 04/29/2024 [id number] NotePre-Admission Testing Consultation Robert Ron, [id number] 73 year old Male 04/29/2024 Consult placed to [facility] by Dr. Packer due to significant PMH [...] Xarelto 2 days prior procedure, PCP at [facility] notified ( see scan doc) LABS, TESTS, CONS (more content not included)...[facility] [employer] [id number] Consult note* Evie Blank APRN-POND TENDER - 04/28/2024 12:43 PM EST Images from the original note were not included. Pre-Admission Testing Consultation Robert Rohit, [id number] 73 year old Male 04/29/2024 Consult placed [...] Xarelto 2 days prior procedure, PCP at [facility] notified ( see scan doc) LABS, [...] Shearer 7:47 AM 04/29/2024 documented in this [id number] History of Present illness Narrative* Markos Cordoba [...] Dubois) who presents today, 04/28/2024, at the [facility] at the request of Referring Provider: [...] LNP, pres. free, 50 mcg/0.5 mL dose (ZAZ=480) 01/24/2023, 01/21/2024 Influenza, injectable, high dose seasonal, trivalent, preservative free (ASJ=000) 12/19/2016 Influenza, injectable, quadrivalent, preservative (HNG=767) 12/22/2020, 01/03/2023 Influenza, injectable, trivalent, preservative (QKX=005) 01/07/2024 Influenza, novel W9L7-24, injectable, preservative-free (KRI=111) 02/03/2009 Moderna Monovalent (12+ yrs) COVID-19 vaccine, mRNA, spike protein, LNP, PF, 100 mcg/0.5 mL (JEN=681) 06/24/2020, 07/22/2020 Pneumococcal conjugate 20 valent (PCV20), polysaccharide MDS796 conjugate, adjuvant, PF (ALJ=710) 01/21/2024 Respiratory syncytial virus (RSV), vaccine, recombinant, protein subunit RSV prefusion F, adjuvant reconstituted, 0.5 mL, preservative free (VVD=410) 01/24/2023 Zoster Recombinant (RZV,Shingles) (BJS=279) 08/20/2019 PHYSICAL EXAM: Vital Signs: Pulse 82 [...] if positive for malignancy -recommend referrals to WIRE SPOOLER (may require MBS prior to treatment), nutrition, [...] any questions or concerns. Simon Packer MD [facility] Department of Otolaryngology - Head and Neck Surgery [employer], [facility] Pager: [phone] documented in this encounterMetroHealthConsult note Author Isaiah Schwartz [facility] Note Date/Time July 09, 2024 12: 24pm [facility] Medical Records Department [address] [place] [address] Anesthesia Postop Eval I 07/09/24 1221 MR#: [id number] Acct: [id number] Name: ROBERT RON Rep #:[id number] : 1950 73 From: Isaiah rodriguez PROGRESSIVE DIE MAKER PCP: Dr. Bulmaro Curtis MD Status:REG S DC Y Race: C Location: [place] [address] Anesthesia: Postop Eval I Current Vital Signs [...] CRNA Cosigner Signature: Date CC: ~ Signed [facility] Work Phone: Discharge summary Author Daniel Sánchez [facility] Note Date/Time July 09, 2024 12: 11pm [facility] Medical Records Department [address] [place] [address] Instructions for Home/Discharge Instructions 07/09/24 1207 MR#: [id number] Acct: [id number] Name: ROBERT RON Rep #[id number] : [...] Provider: Bulmaro Curtis Chi Instructions Print Language: Vietnamese Discharge Orders/Prescriptions Prescriptions: Continued rivaroxaban 15 mg [...] CC: Dr. 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 [facility] Work Phone: Evaluation note* Diagnosis Onset Date Resolution Status History of pulmonary embolism acute Lung nodule acute Nicotine dependence, cigarettes, 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 Lung nodule acute Nicotine dependence, cigarettes, in remission acute BMI 38.0-38.9,adult chronic 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 [facility] Work Phone: evaluation note* Diagnosis Onset Date Resolution Status History of pulmonary embolism acute Nicotine dependence, cigarettes, 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 [facility] Work Phone: evaluation note* Diagnosis Onset Date Resolution Status History of pulmonary embolism acute 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, cigarettes, in remission chronic [facility] Work Phone: Evaluation note* Diagnosis Postoperative [...] major salivary glands [facility] Diagnostic X-Ray (Routine) - Closed Specialty Diagnoses / Procedures Referred By Ca fatima Referred To Contact Radiology Diagnoses Neck mass Procedures CT NEURO IMAGE IMPORT(TERESA) DOWNLOAD POWERSHARE IMAGES TO Simon Santos MD [address] [place] [address] Phone: tel: fax: [facility] [address] [place] [address] Phone: tel: Referral ID Status Reason Start Date Expiration Date Visits Re quested Visits Authorized [id number] Closed 04/17/2024 04/17/2025 1 1 [facility] for visit Narrative* Auth/Cert (Routine) Specialty Diagnoses / Procedures Referred By Ca fatima Referred To Contact General Surgery Diagnoses Neck mass Warthin's tumor Oropharyngeal mass Neck mass [R22.1] 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] Procedures LARYNGOSCOPY, DIRECT, OPERATIVE, W/BIOPSY; BRONCHOSCOPY, RIGID/FLEX, W/WO FLUORO GUID; W/BRONCHIAL/ENDOBRONCHI AL BIOPSY, SINGLE/MULTIPLE LARYNGOSCOPY, DIRECT ESOPHAGOSCOPY RIGID Simon Packer MD [address] [place] [address] Phone: tel: fax: [facility] [address] [place] [phone] Phone: tel: Referral ID Status Reason Start Date Expiration Date Visits Re quested Visits Authorized [id number] 3 3 [facility] Chief Complaint and Reason for Visit Chief [...] June 03, 2024 9:24am Percutaneous endoscopic gastrostomy [facility] June 03, 2024 9:24am Encounter for [...] August 23, 2020 1 0:25am Power of Construction Stonemason Yes August 24, 2020 8:46am Advance Directive Response Recorded Date/ Time Advance Directives Yes July 28, 2013 2:11pm Living Will Yes August 23, 2020 9 :25am Power of Construction Stonemason Yes August 24, 2020 7:46am Advance Directive Response Recorded Date/ Time Advance Directives Yes July 28, 2013 3:11pm Living Will Yes December 17, 2022 7:54am Power of Construction Stonemason No November 7:54am Advance Directive Response Recorded Date/ Time Living Will Yes June 22, 2024 5:28pm Do you have a Healthcare Pow er of Construction Stonemason? Yes June 22, 2024 5:28pm Name of Medical Power of Construction Stonemason POA GENARO RON June 22, 2024 5:28pm Advance Directives Yes July 28, 2013 3:11pm Advance Directive Response Recorded Date/ Time Advance Directives on File No July 06, 2024 9:14am Living Will Yes July 06, 2024 9:14am Do you have a Healthcare Pow er of Construction Stonemason? Yes July 06, 2024 9:14am Name of Medical Power of Construction Stonemason Liat Ron July 06, 2024 9:14am Advance Directives Yes July 06, 025 9:14am Living Will Yes June 22, 2024 5:28pm Do you have a Healthcare Pow er of Construction Stonemason? Yes June 22, 2024 5:28pm Name of Medical Power of Construction Stonemason POA GENARO RON June 22, 2024 5:28pm Living Will No July 07, 2024 10:45am Do you have a Healthcare Pow er of Construction Stonemason? No July 07, 2024 10:45am Advance Directive Response Recorded Date/ Time Advance Directives Yes July 13 8:37am Advance Directives on File No July 13, 2024 8:14am Living Will Yes July 13, 2024 8:14am Do you have a Healthcare Pow er of Construction Stonemason? Yes July 13, 2024 8:14am Name of Medical Power of Construction Stonemason Liat Ron July 13, 2024 8:14am Living Will Yes June 22, 2024 5:28pm Do you have a Healthcare Pow er of Construction Stonemason? Yes June 22, 2024 5:28pm Name of Medical Power of Construction Stonemason LILIA GENARO RON June 22, 2024 5:28pm Living Will No July 07, 2024 10:45am Do you have a Healthcare Pow er of Construction Stonemason? No July 07, 2024 10:45am Advance Directive Response Recorded Date/ Time Advance Directives on File No July 272024 9:35am Living Will Yes July 27, 2024 9: 35am Do you have a Healthcare Pow er of Construction Stonemason? Yes July 27, 2024 9:35am Name of Medical Power of Construction Stonemason Liat Ron July 27, 2024 9:35am Advance Directives Yes July 27, 2024 9:35am Living Will Yes June 22, 2024 5:28pm Do you have a Healthcare Pow er of Construction Stonemason? Yes June 22, 2024 5:28pm Name of Medical Power of Construction Stonemason LILIA GENARO RON June 22, 2024 5:28pm Living Will No July 07, 2024 10:45am Do you have a Healthcare Pow er of Construction Stonemason? No July 07, 2024 10:45am Advance Directive Response Recorded Date/ Time Advance Directives on File No July 232024 7:56am Living Will Yes August 10, 2024 7 :56am Do you have a Healthcare Pow er of Construction Stonemason? Yes August 10, 2024 7:56am Name of Medical Power of Construction Stonemason Liat Ron August 10, 2024 7:56am Advance Directives Yes August 10 7:56am Living Will Yes June 22, 2024 5:28pm Do you have a Healthcare Pow er of Construction Stonemason? Yes June 22, 2024 5:28pm Name of Medical Power of Construction Stonemason JON GENARO RON June 22, 2024 5:28pm Living Will No July 07, 2024 10:45am Do you have a Healthcare Pow er of Construction Stonemason? No July 07, 2024 10:45am Advance Directive Response Recorded Date/ Time Advance Directives on File No July 242024 9:26am Living Will Yes August 18, 2024 9 :26am Do you have a Healthcare Pow er of Construction Stonemason? Yes August 18, 2024 9:26am Name of Medical Power of Construction Stonemason Liat Ron August 18, 2024 9:26am Advance Directives Yes August 18 9:26am Living Will Yes June 22, 2024 5:28pm Do you have a Healthcare Pow er of Construction Stonemason? Yes June 22, 2024 5:28pm Name of Medical Power of Construction Stonemason JON GENARO RON June 22, 2024 5:28pm Living Will No July 07, 2024 10:45am Do you have a Healthcare Pow er of Construction Stonemason? No July 07, 2024 10:45am Summary Purpose [...] 2024 End: June 29, 2024 Ashly Laguerre TRUSS DESIGNER, TRUSS DESIGNER-C Attending Provider Active Start: June 29, 2024 [...] 2024 End: July 20, 2024 Dr. Bulmaro Curtis MD Referring Provider Active Start: July 20, [...] MD Primary Care Provider Active Dianna Knight TRUSS DESIGNER, TRUSS DESIGNER-C Attending Provider Active Team Status: Active Member Role Status Dates Dr. Bulmaro Curtis MD Primary Care Provider Active Dr. Leonel Carolina DO Attending Provider, Referring Pro vider Active Team Status: Inactive Member Role Status Dates Dr. Bulmaro Curtis MD Primary Care Provider, Referring Provider Active Dianna Knight NP, TRUSS DESIGNER-C Attending Provider Active Team Status: Inactive Member Role Status Dates Dr. Bulmaro Curtis MD Primary Care Provider Active Dr. Leonel Carolina DO Attending Provider, Referring Pro vider Active Team Status: Inactive Member Role Status Dates Dr. Bulmaro Curtis MD Primary Care Provider Active Dianna Knight TRUSS DESIGNER, TRUSS DESIGNER-C Attending Provider, Referrin g Provider Active Team [...] Active Member Role Status Dates Dr. Bulmaro Curtsi MD Primary Care Provider Active Start: July 10, 2024 Dr. Cipriano Layne DO Attending Provider Active Start: July 10, 2024 Dr. Franco Pérez MD Referring Provider Active S tart: July 10, 2024 Truck Jumper Relationship Specialty Start Date End Date Evie Blank APRN-POND TENDER [address] [place] [id number] FLIGHT CREW TIME CLERK Anesthesiology 05/23/24 Kristofer Anderson CCC-WIRE SPOOLER [address] [place], [place] [id number] Speech Language Pathologist Speech Pathology 05/23/24 Simon Packer MD [address] [place] [id number] Physician Otolaryngology 05/23/24 Team Status: Active Member [...] Provider Active S tart: July 17, 2024 Truck Jumper Relationship Specialty Start Date End Date Evie Blank APRN-POND TENDER [address] [place] [id number] FLIGHT CREW TIME CLERK Anesthesiology 05/23/24 Kristofer Anderson CCC-WIRE SPOOLER [address] [place], [place] [id number] Speech Language Pathologist Speech Pathology 05/23/24 Simon Packer MD [address] [place] [phone] Physician Otolaryngology 05/23/24 Team Status: Active Member [...] Provider Active S tart: August 18, 2024 Truck Jumper Relationship Specialty Start Date End Date Evie Blank APRN-POND TENDER [address] [place] [id number] FLIGHT CREW TIME CLERK Anesthesiology 05/23/24 Kristofer Anderson, [facility]-WIRE SPOOLER [address] [place], [place] [id number] Speech Language Pathologist Speech Pathology 05/23/24 Simon Packer MD [address] [place], [place] [phone] Physician Otolaryngology 05/23/24 Team Status: Inactive Member [...] August 19, 2024 End: August 19, 2024 Truck Jumper Relationship Specialty Start Date End Date Evie Blank APRN-POND TENDER [address] [place] [address] FLIGHT CREW TIME CLERK Anesthesiology 05/23/24 Kristofer Anderson, [facility]-WIRE SPOOLER [address] [place], [place] [phone] Speech Language Pathologist Speech Pathology 05/23/24 Simon Packer MD [address] [place] [id number] Physician Otolaryngology 05/23/24 Team Status: Inactive Member [...] 05, 2024 End: August 05, 2024 Dr. Ciprinao Layne DO Referring Provider Active Start: August [...] and content) DATE CREATED AUTHOR 08/21/2024 [employer] DATE CREATED AUTHOR AUTHOR'S ORGANIZ ATION 09/22/2024 [facility] Reason for Visit (unrecogniz ed section and [...] BE BASED ON THE PRIMARY CLINICAL RECORDS. [facility]. provides no warranty or guarantee of the accuracy or completeness of information in this document.
--- OUTSIDE RECORDS SUMMARY | 2024-09-25 23:03 | XMS RPT_ITS | CCD ---
Author Organization [facility] Care Team Providers Care Head Irrigator Name Role Phone Dr. Bulmaro Curtis Chi Primary Care Provider Ever, Dr. Bulmaro Goode Referring Provider DONTA Thompson Attending Provider Dr. Andry Juárez Attending Provider DONTA Thompson Referring Provider Dr. Leonel Carolina Attending Provider Ever, Dr. Bulmaro Goode Primary Care Provider Ever, Dr. Bulmaro Goode Referring Provider Dr. Leonel Carolina Attending Provider Eugene INDEPENDENT TRADER, INDEPENDENT TRADER-C Dianna Attending Provider Ever, Dr. Bulmaro Goode Primary Care Provider Ever, Dr. Bulmaro Goode Referring Provider Dr. Leonel Carolina Attending Provider Eugene INDEPENDENT TRADER, INDEPENDENT TRADER-C Dianna Attending Provider Ever, Dr. Bulmaro Goode [...] Beto ALVARENGA, Dr. Gamez Referring Provider Shade INDEPENDENT TRADER-C, Ashly Attending Provider Gonzalo ALVARENGA, Dr. Daniel Gonzales Referring Provider Gonzalo ALVARENGA, Dr. Daniel Gonzales Other Provider Marquita ALVARENGA, Dr. Wilde Attending Provider Mario ALVARENGA, Dr. Sigala Referring Provider Humphrey CESPEDES, Elicia Attending Provider Elicia Yin PA-C Referring Provider Dr. Franco Pérez MD Referring Provider Dr. Cipriano Layne DO Referring Provider Beto ALVARENGA, Dr. Gamez Referring Provider Markiv SIGNAL TOWER DIRECTOR-SALES REPRESENTATIVE [employer]IES, Evie Unavailable Karin [facility]-YARN BLEACHING MACHINE OPERATOR, Kristofer Flores Unavailable Jenniferva china Packer MD, Simon Unavailable Dr. Franco Pérez MD Referring Provider Beto ALVARENGA, Dr. Gamez Referring Provider Beto ALVARENGA, Dr. Gamez Referring Provider Ever ALVARENGA, Dr. Bulmaro Chi Primary Care Provider Dr. Franco Pérez MD Referring Provider Elicia Yin PA-C Attending Provider Elicia Yin PA-C Referring Provider Dr. Franco Pérez MD Referring Provider Dr. Franco Pérez MD Referring Provider PROVIDER, [...] e Dr. Franco Pérez MD Referring Provider Xi, Cipriano Referring Unavailable Xi, Cipriano Attending [...] [Sulfa (Sulfonamide Antibiotics)] Allergy to substance 2 [facility] (10 sources) Sulfonamides (Antibiotic); Translations: [SULFA ANTIBIOTICS] Propensity to adverse reactions to drug 0 [facility] Medications Current Medications Medication Drug Class(es) [...] to 3 days. 12 Tablet 06/11/2024 06/14/2024 [id number] 200 actuat albuterol 0.09 mg/actuat metered dose [...] 31, 2023 11:07am Start: 09-12-2022 End: 07-31-2023 Elegrikwcx-Xozwnrvg-Ewhvbfds ol (Breztri Aerosphere) 160-9-4.8 mcg/actuation HFA aerosol inhaler Discontinued 2 NMA INHALATION TWICE A DAY 10.7 September 12, 2022 12:00am July 31, 2023 11:07am Start: 09-12-2022 End: 07-31-2023 Aoyfzqllht-Hfutekdw-Kyoesjmz ol (Breztri Aerosphere) 160-9-4.8 mcg/actuation HFA aerosol [...] 17, 2020 8:35am Start: 08-17-2020 End: 11-30-2021 Zranzwlaaab-Kgidohaxc-Wpgnjp er (Trelegy Ellipta) 100-62.5-25 mcg blister with device Discontinued 1 NMA INHALATION DAILY August 17, 2020 12:00am November 30, 2021 10:08am Start: 08-17-2020 End: 11-30-2021 Szfrklbejqk-Mcjjpdrfp-Jgpyko er (Trelegy Ellipta) 100-62.5-25 mcg blister with device Discontinued 1 INH INHALATION DAILY August 17, 2020 12:00am November 30, 2021 10:08am Start: 08-17-2020 End: 11-30-2021 Mekjzjaxulq-Uhugutrep-Bhwueq er (Trelegy Ellipta) 100-62.5-25 mcg blister with [...] 2.5 ug by inhalation once daily Tiotropium [place] (Spiriva Respimat) 2.5 mcg/actuation mist Active 2 [...] use Start: 11-30-2021 take 1 puff(s) by [facility] twice daily Budesonide-Formoterol (Symbicort) 160-4.5 mcg/actuation HFA aerosol inhaler Active 2 PUFF INHALATION TWICE A DAY November 30, 2021 12:00am administer with spacer, rinse mouth after each use Start: 11-30-2021 take 1 puff(s) by [facility] twice daily Budesonide-Formoterol (Symbicort) 160-4.5 mcg/actuation HFA [...] (Unsp spec) [#/Vol] 0.36 10*3/uL Low 0.83-4.51 [facility] Absolute neutrophil countOrd ered By: Franco Pérez on 09-15-2024 Neutrophils (Bld) [#/Vol] 6.4 10*3/uL 2.0-7.7 [facility] Anion gap in Serum or Plasma Ordered By: Franco Pérez on 09-15-2024 Anion gap [Moles/Vol] 16 mmol/L High 5-[facility] Automated lymphocyte count a s percentage of total leukocytesOrdered By: Franco Anderson on 09-15-2024 Lymphocytes/100 WBC Auto (Unsp spec) 4.3 % Low 19-41 [facility] BUN/creatinine ratioOrdered By: Franco Anderson on 09-15-2024 Urea nitrogen/Creatinine [Mass ratio] 26.6 mg/mg High 10-20 [facility] Basophil percentageOrdered B y: Franco Pérez on 09-15-2024 Basophils/100 WBC (Bld) 0.8 % 0-1 [facility] Bilirubin, totalOrdered By: Fracno [facility] on 09-15-2024 Bilirubin [Mass/Vol] 1.38 mg/dL High 0.00-1.30 [facility] CBC W/Diff, Automatedon 08-24 Absolute Lymph 0.36 X10 3/uL Low 0.83-4.51 [facility] Comment on above: Performed By: #### L 504.2610, L506.0400, L501.9520, L501.2300, L501.5200, L100.0100, L500.4050 ####[facility] [address] [place], [address] Absolute Neut 6.4 X10 3/uL Normal 2.0-7.7 [facility] Comment on above: Performed By: #### L 504.2610, L506.0400, L501.9520, L501.2300, L501.5200, L100.0100, L500.4050 ####[facility] [address] [place], [address] Basophils/100 WBC (Bld) 0.8 % Normal 0-1 [facility] Comment on above: Performed By: #### L 504.2610, L506.0400, L501.9520, L501.2300, L501.5200, L100.0100, L500.4050 ####[facility] [address] [place], [address] Eosinophils/100 WBC (Bld) 1.6 % Normal 0-5 [facility] Comment on above: Performed By: #### L 504.2610, L506.0400, L501.9520, L501.2300, L501.5200, L100.0100, L500.4050 ####[facility] [address] [place], [address] Erythrocyte distribution width (RBC) [Ratio] 17.9 % High 11.6-14.6 [facility] Comment on above: Performed By: #### L 504.2610, L506.0400, L501.9520, L501.2300, L501.5200, L100.0100, L500.4050 ####[facility] [address] [place], [address] Hematocrit (Bld) [Volume fraction] 38.3 % Low 40-54 [facility] Comment on above: Performed By: #### L 504.2610, L506.0400, L501.9520, L501.2300, L501.5200, L100.0100, L500.4050 ####[facility] [address] [place], [address] Hemoglobin (Bld) [Mass/Vol] 12.6 g/dL Low 13.0-16.5 [facility] Comment on above: Performed By: #### L 504.2610, L506.0400, L501.9520, L501.2300, L501.5200, L100.0100, L500.4050 ####[facility] [address] [place], [address] IG% 2.200 High 0.0-0.9 [facility] Comment on above: Result Comment: IG% - Immature Granulocytes (promyelocytes, myelocytes andmetamyelocytes) > 1% indicates that a LEFT SHIFT is Present. Performed By: #### L 504.2610, L506.0400, L501.9520, L501.2300, L501.5200, L100.0100, L500.4050 ####[facility] [address] [place], [address] Lymphocytes/100 WBC (Bld) 4.3 % Low 19-41 [facility] Comment on above: Performed By: #### L 504.2610, L506.0400, L501.9520, L501.2300, L501.5200, L100.0100, L500.4050 ####[facility] [address] [place], [address] MCH (RBC) [Entitic mass] 30.5 pg Normal 27.0-32.0 [facility] Comment on above: Performed By: #### L 504.2610, L506.0400, L501.9520, L501.2300, L501.5200, L100.0100, L500.4050 ####[facility] [address] [place], [address] MCHC (RBC) [Mass/Vol] 32.9 g/dL Normal 32-36 [facility] Comment on above: Performed By: #### L 504.2610, L506.0400, L501.9520, L501.2300, L501.5200, L100.0100, L500.4050 ####[facility] [address] [place], [address] MCV (RBC) [Entitic vol] 92.7 fL Normal 80-94 [facility] Comment on above: Performed By: #### L 504.2610, L506.0400, L501.9520, L501.2300, L501.5200, L100.0100, L500.4050 ####[facility] [address] [place], [address] Monocytes/100 WBC (Bld) 14.9 % High 0-10 [facility] Comment on above: Performed By: #### L 504.2610, L506.0400, L501.9520, L501.2300, L501.5200, L100.0100, L500.4050 ####[facility] [address] [place], [address] Neutrophils/100 WBC (Bld) 76.2 % High 47-70 [facility] Comment on above: Performed By: #### L 504.2610, L506.0400, L501.9520, L501.2300, L501.5200, L100.0100, L500.4050 ####[facility] [address] [place], [address] Nucleated RBC (Bld) [#/Vol] 0 10*3/uL Normal 0-5 [facility] Comment on above: Performed By: #### L 504.2610, L506.0400, L501.9520, L501.2300, L501.5200, L100.0100, L500.4050 ####[facility] [address] [place], [address] Platelet mean volume (Bld) [Entitic vol] 10.6 fL Normal 6.2-12.0 [facility] Comment on above: Performed By: #### L 504.2610, L506.0400, L501.9520, L501.2300, L501.5200, L100.0100, L500.4050 ####[facility] [address] [place], [address] Platelets (Bld) [#/Vol] 87 10*3/uL Low 150-450 [facility] Comment on above: Performed By: #### L 504.2610, L506.0400, L501.9520, L501.2300, L501.5200, L100.0100, L500.4050 ####[facility] [address] [place], [address] RBC (Bld) [#/Vol] 4.13 10*6/uL Low 4.6-6.2 [facility] Comment on above: Performed By: #### L 504.2610, L506.0400, L501.9520, L501.2300, L501.5200, L100.0100, L500.4050 ####[facility] [address] [place], [place], [phone]) RDW SD 60.4 fl High 35.1-43.9 [facility] Comment on above: Performed By: #### L 504.2610, L506.0400, L501.9520, L501.2300, L501.5200, L100.0100, L500.4050 ####[facility] [address] [place], [place], [phone] WBC (Bld) [#/Vol] 8.4 10*3/uL Normal 4.4-11.0 [facility] Comment on above: Performed By: #### L 504.2610, L506.0400, L501.9520, L501.2300, L501.5200, L100.0100, L500.4050 ####[facility] [address] [place], [place], [phone] Carbon dioxide, total [Moles /volume] in Central venous bloodOrdered By: Franco Pérez on 09-15-2024 CO2 [Moles/Vol] 23.5 mmol/L 21.0-32.0 [facility] Chloride assayOrdered By: Kala Pérez on 09-15-2024 Chloride [Moles/Vol] 96 mmol/L Low 98-108 [facility] Comprehensive Metabolic Prof ilon 09-15-2024 Albumin [Mass/Vol] 3.5 g/dL Normal 3.4-4.8 [facility] Comment on above: Performed By: #### L 504.2610, L506.0400, L501.9520, L501.2300, L501.5200, L100.0100, L500.4050 ####[facility] [address] [place], [address] Albumin/Globulin [Mass ratio] 1.2 {ratio} Normal 0.9-2.4 [facility] Comment on above: Performed By: #### L 504.2610, L506.0400, L501.9520, L501.2300, L501.5200, L100.0100, L500.4050 ####[facility] [address] [place], [address] ALK PHOS 113 U/L Normal 40-129 [facility] Comment on above: Performed By: #### L 504.2610, L506.0400, L501.9520, L501.2300, L501.5200, L100.0100, L500.4050 ####[facility] [address] [place], [address] ALT [Catalytic activity/Vol] 13 U/L Normal <=46 [facility] Comment on above: Performed By: #### L 504.2610, L506.0400, L501.9520, L501.2300, L501.5200, L100.0100, L500.4050 ####[facility] [address] [place], [address] AST [Catalytic activity/Vol] 19 U/L Normal <=37 [facility] Comment on above: Performed By: #### L 504.2610, L506.0400, L501.9520, L501.2300, L501.5200, L100.0100, L500.4050 ####[facility] [address] [place], [address] Bilirubin [Mass/Vol] 1.38 mg/dL High 0.00-1.30 [facility] Comment on above: Performed By: #### L 504.2610, L506.0400, L501.9520, L501.2300, L501.5200, L100.0100, L500.4050 ####[facility] [address] [place], [address] BUN/CRE 26.6 RATIO High 10-20 [facility] Comment on above: Performed By: #### L 504.2610, L506.0400, L501.9520, L501.2300, L501.5200, L100.0100, L500.4050 ####[facility] [address] [place], [address] Calcium [Mass/Vol] 9.4 mg/dL Normal 7.6-11.0 [facility] Comment on above: Performed By: #### L 504.2610, L506.0400, L501.9520, L501.2300, L501.5200, L100.0100, L500.4050 ####[facility] [address] [place], [address] Chloride [Moles/Vol] 96 mmol/L Low 98-108 [facility] Comment on above: Performed By: #### L 504.2610, L506.0400, L501.9520, L501.2300, L501.5200, L100.0100, L500.4050 ####[facility] [address] [place], [address] CO2 [Moles/Vol] 23.5 mmol/L Normal 21.0-32.0 [facility] Comment on above: Performed By: #### L 504.2610, L506.0400, L501.9520, L501.2300, L501.5200, L100.0100, L500.4050 ####[facility] [address] [place], [address] Creatinine [Mass/Vol] 1.16 mg/dL Normal 0.70-1.20 [facility] Comment on above: Performed By: #### L 504.2610, L506.0400, L501.9520, L501.2300, L501.5200, L100.0100, L500.4050 ####[facility] [address] [place], [address] ECRCL 77.16 ml/min Normal 50-250 [facility] Comment on above: Performed By: #### L 504.2610, L506.0400, L501.9520, L501.2300, L501.5200, L100.0100, L500.4050 ####[facility] [address] [place], [address] GAP 16 High 5-15 [facility] Comment on above: Performed By: #### L 504.2610, L506.0400, L501.9520, L501.2300, L501.5200, L100.0100, L500.4050 ####[facility] [address] [place], [place], [phone] GFR/1.73 sq M.predicted among non-blacks MDRD (S/P/Bld) [Vol rate/Area] 67 mL/min/{1.73_m2} Normal >60 [facility] Comment on above: Result Comment: mL/m in/1.73m2 CKD-EPI Creatinine Equation (2020) Performed By: #### L 504.2610, L506.0400, L501.9520, L501.2300, L501.5200, L100.0100, L500.4050 ####[facility] [address] [place], [place], [phone] Globulin (S) [Mass/Vol] 2.9 g/dL Normal 2.2-4.2 [facility] Comment on above: Performed By: #### L 504.2610, L506.0400, L501.9520, L501.2300, L501.5200, L100.0100, L500.4050 ####[facility] [address] [place], [address] Glucose [Mass/Vol] 160 mg/dL High 70-99 [facility] Comment on above: Performed By: #### L 504.2610, L506.0400, L501.9520, L501.2300, L501.5200, L100.0100, L500.4050 ####[facility] [address] [place], [address] Potassium [Moles/Vol] 3.3 mmol/L Normal 3.3-5.1 [facility] Comment on above: Performed By: #### L 504.2610, L506.0400, L501.9520, L501.2300, L501.5200, L100.0100, L500.4050 ####[facility] [address] [place], [address] Sodium [Moles/Vol] 135 mmol/L Normal 133-145 [facility] Comment on above: Performed By: #### L 504.2610, L506.0400, L501.9520, L501.2300, L501.5200, L100.0100, L500.4050 ####[facility] [address] [place], [address] T PROT 6.4 g/dL Normal 5.9-8.4 [facility] Comment on above: Performed By: #### L 504.2610, L506.0400, L501.9520, L501.2300, L501.5200, L100.0100, L500.4050 ####[facility] [address] [place], [address] Urea nitrogen [Mass/Vol] 31 mg/dL High 4-19 [facility] Comment on above: Performed By: #### L 504.2610, L506.0400, L501.9520, L501.2300, L501.5200, L100.0100, L500.4050 ####[facility] [address] [place], [address] Eosinophil percentageOrdered By: Franco Pérez on 09-15-2024 Eosinophils/100 WBC (Bld) 1.6 % 0-5 [facility] Erythrocyte distribution wid th ratioOrdered By: Franco Pérez on 09-15-2024 Erythrocyte distribution width (RBC) [Ratio] 17.9 % High 11.6-14.6 [facility] Erythrocyte distribution wid th standard deviationOrdered By: [facility] on 09-15-2024 Erythrocyte distribution width (RBC) [Ratio] 60.4 fl High 35.1-43.9 [facility] Glomerular filtration rate ( GFR) estimation/1.73 sq m using serum, plasma, or whole bOrdered By: [facility] on 09-15-2024 GFR/1.73 sq M.predicted among non-blacks MDRD (S/P/Bld) [Vol rate/Area] 67 mL/min/{1.73_m2} >60 [facility] Comment on above: mL/min/1.73m2 CKD-EP I Creatinine Equation (2020) Hematocrit Auto (Bld) [Volum e fraction]Ordered By: Franco Pérez on 09-15-2024 Hematocrit (Bld) [Volume fraction] 38.3 % Low 40-54 [facility] Hemoglobin measurementOrdere d By: Franco Pérez on 09-15-2024 Hemoglobin (Bld) [Mass/Vol] 12.6 g/dL Low 13.0-16.5 [facility] Immature granulocytes/100 WB C Auto (Bld)Ordered By: Franco Pérez on 09-15-2024 Immature granulocytes/100 WBC (Bld) 2.200 % High 0.0-0.9 [facility] Comment on above: IG% - Immature Granu locytes (promyelocytes, myelocytes and metamyelocytes) > 1% indicates that a LEFT SHIFT is Present. LDHon 09-15-2024 LDH 238 U/L Normal 87-241 [facility] Comment on above: Order Comment: 1 Performed By: #### L 504.2610, L506.0400, L501.9520, L501.2300, L501.5200, L100.0100, L500.4050 ####[facility] [address] [place], [place], [id number] Laboratory - Chemistry and C hemistry - challengeOrdered By: Franco Pérez on 09-15-2024 AST [Catalytic activity/Vol] 19 U/L <38 [facility] Lactate dehydrogenase (LDH) measurementOrdered By: Franco Pérez on 09-15-2024 LDH [Catalytic activity/Vol] 238 U/L 87-241 [facility] MCV (mean corpuscular volume ) determinationOrdered By: Franco Pérez on 09-15-2024 MCV (RBC) [Entitic vol] 92.7 fL 80-94 [facility] Magnesiumon 09-15-2024 Magnesium [Mass/Vol] 1.8 mg/dL Normal 1.5-2.2 [facility] Comment on above: Performed By: #### L 504.2610, L506.0400, L501.9520, L501.2300, L501.5200, L100.0100, L500.4050 ####[facility] [address] [place], [place], [address] Magnesium measurement (mass/ volume)Ordered By: Franco Pérez on 09-15-2024 Magnesium (Unsp spec) [Mass/Vol] 1.8 mg/dL 1.5-2.2 [facility] Mean corpuscular hemoglobin (MCH) determinationOrdered By: Franco Pérez on 09-15-2024 MCH (RBC) [Entitic mass] 30.5 pg 27.0-32.0 [facility] Mean corpuscular hemoglobin concentration (MCHC) determinationOrdered By: Franco Pérez on 09-15-2024 MCHC (RBC) [Mass/Vol] 32.9 g/dL 32-36 [facility] Mean platelet volume determi nationOrdered By: Franco Pérez on 09-15-2024 Platelet mean volume (Bld) [Entitic vol] 10.6 fL 6.2-12.0 [facility] Monocyte percentageOrdered B y: Franco Pérez on 09-15-2024 Monocytes/100 WBC (Bld) 14.9 % High 0-10 [facility] Neutrophil percentageOrdered By: Franco Pérez on 09-15-2024 Neutrophils/100 WBC (Bld) 76.2 % High 47-70 [facility] Nucleated red blood cell per centageOrdered By: Franco Pérez on 09-15-2024 Nucleated RBC/100 WBC (Bld) [Ratio] 0 % 0-5 [facility] Oncology Visit Reporton 08-24 Oncology Visit Report Normal [facility] Phosphoruson 09-15-2024 Phosphate [Mass/Vol] 2.7 mg/dL Normal 2.7-4.5 [facility] Comment on above: Performed By: #### L 504.2610, L506.0400, L501.9520, L501.2300, L501.5200, L100.0100, L500.4050 ####[facility] [address] [place], [address] Platelet countOrdered By: Kala Pérez on 09-15-2024 Platelets (Bld) [#/Vol] 87 10*3/uL Low 150-450 [facility] Potassium measurement (mass/ volume)Ordered By: Franco Pérez on 09-15-2024 Potassium (Unsp spec) [Mass/Vol] 3.3 mmol/L 3.3-5.1 [facility] RBC Auto (Bld) [#/Vol]Ordere d By: Franco Pérez on 09-15-2024 RBC (Bld) [#/Vol] 4.13 10*6/uL Low 4.6-6.2 [facility] Radiation Oncology Visiton 0 09-15-2024 Radiation Oncology Visit Normal [facility] Serum creatinine measurement (mass/volume)Ordered By: Franco Pérez on 09-15-2024 Creatinine [Mass/Vol] 1.16 mg/dL 0.70-1.20 [facility] Serum globulin measurementOr dered By: Franco Pérez on 09-15-2024 Globulin (S) [Mass/Vol] 2.9 g/dL 2.2-4.2 [facility] Serum glucose measurement (m ass/volume)Ordered By: Franco Pérez on 09-15-2024 Glucose [Mass/Vol] 160 mg/dL High 70-99 [facility] Serum or plasma alanine cabral otransferase (ALT) measurementOrdered By: Franco Pérez on 09-15-2024 ALT [Catalytic activity/Vol] 13 U/L <47 [facility] Serum or plasma albumin blaine urement (mass/volume)Ordered By: Franco Pérez on 09-15-2024 Albumin [Mass/Vol] 3.5 g/dL 3.4-4.8 [facility] Serum or plasma albumin/glob ulin mass ratioOrdered By: Franco Pérez on 09-15-2024 Albumin/Globulin [Mass ratio] 1.2 {ratio} 0.9-2.4 [facility] Serum or plasma alkaline zee sphatase measurementOrdered By: Franco Pérez on 09-15-2024 ALP [Catalytic activity/Vol] 113 U/L 40-129 [facility] Serum or plasma calcium blaine urement (mass/volume)Ordered By: Franco Pérez on 09-15-2024 Calcium [Mass/Vol] 9.4 mg/dL 7.6-11.0 [facility] Serum or plasma urea nitroge n measurement (mass/volume)Ordered By: Franco Pérez on 09-15-2024 Urea nitrogen [Mass/Vol] 31 mg/dL High 4-19 [facility] Sodium levelOrdered By: Jonathon Pérez on 09-15-2024 Sodium [Moles/Vol] 135 mmol/L 133-145 [facility] T4 Free Directon 09-15-2024 T4 FREE DIRECT 1.30 ng/dL Normal 0.76-1.46 [facility] Comment on above: Performed By: #### L 504.2610, L506.0400, L501.9520, L501.2300, L501.5200, L100.0100, L500.4050 ####[facility] [address] [place], [address] T4 freeOrdered By: Franco hernandez on 09-15-2024 Free T4 [Mass/Vol] 1.30 ng/dL 0.76-1.46 [facility] TSH DL <= 0.005 mIU/L QnOrde red By: Franco Pérez on 09-15-2024 TSH Qn 0.992 uIU/mL 0.300-4.20 0 [facility] Thyroid Stim Hormone (TSH)on 09-15-2024 TSH 0.992 uIU/mL Normal 0.300-4.20 0 [facility] Comment on above: Performed By: #### L [id number], L506.0400, L501.9520, L501.2300, L501.5200, L100.0100, L500.4050 ####[facility] [id number] [place], [place], [id number] Total proteinOrdered By: Faheem Pérez on 09-15-2024 Protein [Mass/Vol] 6.4 g/dL 5.9-8.4 [facility] White blood cell (WBC) count Ordered By: Franco Pérez on 09-15-2024 WBC (Bld) [#/Vol] 8.4 10*3/uL 4.4-11.0 [facility] Radiation Oncology Visiton 0 - Radiation Oncology Visit Normal [facility] Radiation Oncology Visiton 0 08-19-2024 Radiation Oncology Visit Normal [facility] Absolute lymphocyte countOrd ered By: Franco Pérez on 08-18-2024 Lymphocytes Auto (Unsp spec) [#/Vol] 0.11 10*3/uL Low 0.83-4.51 [facility] Absolute neutrophil countOrd ered By: Franco Pérez on 08-18-2024 Neutrophils (Bld) [#/Vol] 1.7 10*3/uL Low 2.0-7.7 [facility] Anion gap in Serum or Plasma Ordered By: Franco Pérez on 08-18-2024 Anion gap [Moles/Vol] 12 mmol/L 5-15 [facility] Automated lymphocyte count a s percentage of total leukocytesOrdered By: Franco Pérez on 08-18-2024 Lymphocytes/100 WBC Auto (Unsp spec) 4.8 % Low 19-41 [facility] BUN/creatinine ratioOrdered By: Franco Pérez on 08-18-2024 Urea nitrogen/Creatinine [Mass ratio] 20.9 mg/mg High 10-20 [facility] Basophil percentageOrdered B y: Franco Pérez on 08-18-2024 Basophils/100 WBC (Bld) 0.4 % 0-1 [facility] Bilirubin, totalOrdered By: Franco Pérez on 08-18-2024 Bilirubin [Mass/Vol] 1.38 mg/dL High 0.00-1.30 [facility] Blood polychromasia detectio n by light microscopyOrdered By: Franco Pérez on 08-18-2024 Polychromasia LM Ql (Bld) 1+ [facility] CBC W/Diff, Automatedon 07-24 PLT EST SLT DEC Normal ADEQ [facility] Comment on above: Performed By: #### L 500.4050, L100.0100, L501.5200, L501.2300 ####[facility] [address] [place], [address] POLYCHROMASIA 1+ Normal [facility] Comment on above: Performed By: #### L 500.4050, L100.0100, L501.5200, L501.2300 ####[facility] [address] [place], [address] RED CELL MORPH NORM C+C Normal NORM C C [facility] Comment on above: Performed By: #### L 500.4050, L100.0100, L501.5200, L501.2300 ####[facility] [address] [place], [address] Carbon dioxide, total [Moles /volume] in Central venous bloodOrdered By: Franco Pérez on 08-18-2024 CO2 [Moles/Vol] 24.3 mmol/L 21.0-32.0 [facility] Chloride assayOrdered By: Kala Pérez on 08-18-2024 Chloride [Moles/Vol] 102 mmol/L 98-108 [facility] Comprehensive Metabolic Prof ilon 08-18-2024 Albumin [Mass/Vol] 3.7 g/dL Normal 3.4-4.8 [facility] Comment on above: Performed By: #### L 500.4050, L100.0100, L501.5200, L501.2300 ####[facility] [address] [place], [address] Albumin/Globulin [Mass ratio] 1.2 {ratio} Normal 0.9-2.4 [facility] Comment on above: Performed By: #### L 500.4050, L100.0100, L501.5200, L501.2300 ####[facility] [address] [place], [address] ALK PHOS 104 U/L Normal 40-129 [facility] Comment on above: Performed By: #### L 500.4050, L100.0100, L501.5200, L501.2300 ####[facility] [address] [place], [address] ALT [Catalytic activity/Vol] 24 U/L Normal <=46 [facility] Comment on above: Performed By: #### L 500.4050, L100.0100, L501.5200, L501.2300 ####[facility] [address] [place], [address] AST [Catalytic activity/Vol] 20 U/L Normal <=37 [facility] Comment on above: Performed By: #### L 500.4050, L100.0100, L501.5200, L501.2300 ####[facility] [address] [place], [address] Bilirubin [Mass/Vol] 1.38 mg/dL High 0.00-1.30 [facility] Comment on above: Performed By: #### L 500.4050, L100.0100, L501.5200, L501.2300 ####[facility] [address] [place], [address] BUN/CRE 20.9 RATIO High 10-20 [facility] Comment on above: Performed By: #### L 500.4050, L100.0100, L501.5200, L501.2300 ####[facility] [address] [place], [address] Calcium [Mass/Vol] 9.4 mg/dL Normal 7.6-11.0 [facility] Comment on above: Performed By: #### L 500.4050, L100.0100, L501.5200, L501.2300 ####[facility] [address] [place], [address] Chloride [Moles/Vol] 102 mmol/L Normal 98-108 [facility] Comment on above: Performed By: #### L 500.4050, L100.0100, L501.5200, L501.2300 ####[facility] [address] [place], [address] CO2 [Moles/Vol] 24.3 mmol/L Normal 21.0-32.0 [facility] Comment on above: Performed By: #### L 500.4050, L100.0100, L501.5200, L501.2300 ####[facility] [address] [place], [address] Creatinine [Mass/Vol] 0.93 mg/dL Normal 0.70-1.20 [facility] Comment on above: Performed By: #### L 500.4050, L100.0100, L501.5200, L501.2300 ####[facility] [address] [place], [address] ECRCL 100.62 ml/min Normal 50-250 [facility] Comment on above: Performed By: #### L 500.4050, L100.0100, L501.5200, L501.2300 ####[facility] [address] [place], [address] GAP 12 Normal 5-15 [facility] Comment on above: Performed By: #### L 500.4050, L100.0100, L501.5200, L501.2300 ####[facility] [address] [place], [address] GFR/1.73 sq M.predicted among non-blacks MDRD (S/P/Bld) [Vol rate/Area] 87 mL/min/{1.73_m2} Normal >60 [facility] Comment on above: Result Comment: mL/m in/1.73m2 CKD-EPI Creatinine Equation (2020) Performed By: #### L 500.4050, L100.0100, L501.5200, L501.2300 ####[facility] [address] [place], [address] Globulin (S) [Mass/Vol] 3.0 g/dL Normal 2.2-4.2 [facility] Comment on above: Performed By: #### L 500.4050, L100.0100, L501.5200, L501.2300 ####[facility] [address] [place], [address] Glucose [Mass/Vol] 195 mg/dL High 70-99 [facility] Comment on above: Performed By: #### L 500.4050, L100.0100, L501.5200, L501.2300 ####[facility] [address] [place], [address] Potassium [Moles/Vol] 4.5 mmol/L Normal 3.3-5.1 [facility] Comment on above: Performed By: #### L 500.4050, L100.0100, L501.5200, L501.2300 ####[facility] [address] [place], [address] Sodium [Moles/Vol] 138 mmol/L Normal 133-145 [facility] Comment on above: Performed By: #### L 500.4050, L100.0100, L501.5200, L501.2300 ####[facility] [address] [place], [address] T PROT 6.7 g/dL Normal 5.9-8.4 [facility] Comment on above: Performed By: #### L 500.4050, L100.0100, L501.5200, L501.2300 ####[facility] [address] [place], [address] Urea nitrogen [Mass/Vol] 20 mg/dL High 4-19 [facility] Comment on above: Performed By: #### L 500.4050, L100.0100, L501.5200, L501.2300 ####[facility] [address] [place], [address] Eosinophil percentageOrdered By: Franco Pérez on 08-18-2024 Eosinophils/100 WBC (Bld) 0.4 % 0-5 [facility] Erythrocyte distribution wid th ratioOrdered By: Franco Pérez on 08-18-2024 Erythrocyte distribution width (RBC) [Ratio] 15.9 % High 11.6-14.6 [facility] Erythrocyte distribution wid th standard deviationOrdered By: Franco Pérez on 08-18-2024 Erythrocyte distribution width (RBC) [Ratio] 49.9 fl High 35.1-43.9 [facility] Erythrocyte morphology asses smentOrdered By: Franco Pérez on 08-18-2024 RBC morphology finding Nom (Bld) NORM C+C NORMAL NORM C&C [facility] Glomerular filtration rate ( GFR) estimation/1.73 sq m using serum, plasma, or whole bOrdered By: Franco Pérez on 08-18-2024 GFR/1.73 sq M.predicted among non-blacks MDRD (S/P/Bld) [Vol rate/Area] 87 mL/min/{1.73_m2} >60 [facility] Comment on above: mL/min/1.73m2 CKD-EP I Creatinine Equation (2020) Hematocrit Auto (Bld) [Volum e fraction]Ordered By: Franco Pérez on 08-18-2024 Hematocrit (Bld) [Volume fraction] 36.2 % Low 40-54 [facility] Hemoglobin measurementOrdere d By: Franco Pérez on 08-18-2024 Hemoglobin (Bld) [Mass/Vol] 12.0 g/dL Low 13.0-16.5 [facility] Immature granulocytes/100 WB C Auto (Bld)Ordered By: Franco Pérez on 08-18-2024 Immature granulocytes/100 WBC (Bld) 1.300 % High 0.0-0.9 [facility] Comment on above: IG% - Immature Granu locytes (promyelocytes, myelocytes and metamyelocytes) > 1% indicates that a LEFT SHIFT is Present. Laboratory - Chemistry and C hemistry - challengeOrdered By: Franco Pérez on 08-18-2024 AST [Catalytic activity/Vol] 20 U/L <38 [facility] MCV (mean corpuscular volume ) determinationOrdered By: Franco Beto on 08-18-2024 MCV (RBC) [Entitic vol] 92.1 fL 80-94 [facility] Magnesiumon 08-18-2024 Magnesium [Mass/Vol] 2.0 mg/dL Normal 1.5-2.2 [facility] Comment on above: Performed By: #### L 500.4050, L100.0100, L501.5200, L501.2300 ####[facility] [address] [place], [address] Magnesium measurement (mass/ volume)Ordered By: Franco [facility] on 08-18-2024 Magnesium (Unsp spec) [Mass/Vol] 2.0 mg/dL 1.5-2.2 [facility] Mean corpuscular hemoglobin (MCH) determinationOrdered By: Franco Pérez on 08-18-2024 MCH (RBC) [Entitic mass] 30.5 pg 27.0-32.0 [facility] Mean corpuscular hemoglobin concentration (MCHC) determinationOrdered By: Franco Pérez on 08-18-2024 MCHC (RBC) [Mass/Vol] 33.1 g/dL 32-36 [facility] Mean platelet volume determi nationOrdered By: Franco Pérez on 08-18-2024 Platelet mean volume (Bld) [Entitic vol] 10.0 fL 6.2-12.0 [facility] Monocyte percentageOrdered B y: Franco Pérez on 08-18-2024 Monocytes/100 WBC (Bld) 17.5 % High 0-10 [facility] Neutrophil percentageOrdered By: Franco Pérez on 08-18-2024 Neutrophils/100 WBC (Bld) 75.6 % High 47-70 [facility] Nucleated red blood cell per centageOrdered By: Franco Pérez on 08-18-2024 Nucleated RBC/100 WBC (Bld) [Ratio] 0 % 0-5 [facility] Oncology Visit Reporton 07-24 Oncology Visit Report Normal [facility] Phosphoruson 08-18-2024 Phosphate [Mass/Vol] 2.9 mg/dL Normal 2.7-4.5 [facility] Comment on above: Performed By: #### L 500.4050, L100.0100, L501.5200, L501.2300 ####[facility] [address] [place], [place], [id number] Platelet countOrdered By: Kala Pérez on 08-18-2024 Platelets (Bld) [#/Vol] 108 10*3/uL Low 150-450 [facility] Platelet estimateOrdered By: Franco Pérez on 08-18-2024 Platelets LM Ql (Bld) SLT DEC ADEQ [facility] Potassium measurement (mass/ volume)Ordered By: Franco Pérez on 08-18-2024 Potassium (Unsp spec) [Mass/Vol] 4.5 mmol/L 3.3-5.1 [facility] RBC Auto (Bld) [#/Vol]Ordere d By: Franco Pérez on 08-18-2024 RBC (Bld) [#/Vol] 3.93 10*6/uL Low 4.6-6.2 [facility] Serum creatinine measurement (mass/volume)Ordered By: Franco Pérez on 08-18-2024 Creatinine [Mass/Vol] 0.93 mg/dL 0.70-1.20 [facility] Serum globulin measurementOr dered By: Franco Pérez on 08-18-2024 Globulin (S) [Mass/Vol] 3.0 g/dL 2.2-4.2 [facility] Serum glucose measurement (m ass/volume)Ordered By: Franco Pérez on 08-18-2024 Glucose [Mass/Vol] 195 mg/dL High 70-99 [facility] Serum or plasma alanine cabral otransferase (ALT) measurementOrdered By: Franco Pérez on 08-18-2024 ALT [Catalytic activity/Vol] 24 U/L <47 [facility] Serum or plasma albumin blaine urement (mass/volume)Ordered By: Franco Pérez on 08-18-2024 Albumin [Mass/Vol] 3.7 g/dL 3.4-4.8 [facility] Serum or plasma albumin/glob ulin mass ratioOrdered By: Franco Pérez on 08-18-2024 Albumin/Globulin [Mass ratio] 1.2 {ratio} 0.9-2.4 [facility] Serum or plasma alkaline zee sphatase measurementOrdered By: Franco Pérez on 08-18-2024 ALP [Catalytic activity/Vol] 104 U/L 40-129 [facility] Serum or plasma calcium blaine urement (mass/volume)Ordered By: Franco Pérez on 08-18-2024 Calcium [Mass/Vol] 9.4 mg/dL 7.6-11.0 [facility] Serum or plasma urea nitroge n measurement (mass/volume)Ordered By: Franco Pérez on 08-18-2024 Urea nitrogen [Mass/Vol] 20 mg/dL High 4-19 [facility] Sodium levelOrdered By: Jonathon Pérez on 08-18-2024 Sodium [Moles/Vol] 138 mmol/L 133-145 [facility] Telephone Encounteron 2024 [employer] Authentication Interface Message Text Reached patient, who [...] acknowledges understanding. Cindy Newell RN Normal [facility] Total proteinOrdered By: Faheem Pérez on 08-18-2024 Protein [Mass/Vol] 6.7 g/dL 5.9-8.4 [facility] White blood cell (WBC) count Ordered By: Franco Pérez on 08-18-2024 WBC (Bld) [#/Vol] 2.3 10*3/uL Low 4.4-11.0 [facility] Radiation Oncology Visiton 0 08-12-2024 Radiation Oncology Visit Normal [facility] Absolute lymphocyte countOrd ered By: Franco Pérez on 08-10-2024 Lymphocytes Auto (Unsp spec) [#/Vol] 0.19 10*3/uL Low 0.83-4.51 [facility] Absolute neutrophil countOrd ered By: Franco Pérez on 08-10-2024 Neutrophils (Bld) [#/Vol] 2.9 10*3/uL 2.0-7.7 [facility] Anion gap in Serum or Plasma Ordered By: Franco Pérez on 08-10-2024 Anion gap [Moles/Vol] 12 mmol/L 5-15 [facility] Automated lymphocyte count a s percentage of total leukocytesOrdered By: Franco Pérez on 08-10-2024 Lymphocytes/100 WBC Auto (Unsp spec) 5.1 % Low 19-41 [facility] BUN/creatinine ratioOrdered By: Franco Pérez on 08-10-2024 Urea nitrogen/Creatinine [Mass ratio] 23.1 mg/mg High 10-20 [facility] Basophil percentageOrdered B y: Franco Pérez on 08-10-2024 Basophils/100 WBC (Bld) 0.5 % 0-1 [facility] Bilirubin, totalOrdered By: Franco Pérez on 08-10-2024 Bilirubin [Mass/Vol] 1.24 mg/dL 0.00-1.30 [facility] CBC W/Diff, Automatedon 07-23 Absolute Lymph 0.19 X10 3/uL Low 0.83-4.51 [facility] Comment on above: Performed By: #### L 500.4050, L501.2300, L501.5200, L100.0100 ####[facility] [address] [place], [address] Absolute Neut 2.9 X10 3/uL Normal 2.0-7.7 [facility] Comment on above: Performed By: #### L 500.4050, L501.2300, L501.5200, L100.0100 ####[facility] [address] [place], [address] Basophils/100 WBC (Bld) 0.5 % Normal 0-1 [facility] Comment on above: Performed By: #### L 500.4050, L501.2300, L501.5200, L100.0100 ####[facility] [address] [place], [address] Eosinophils/100 WBC (Bld) 0.5 % Normal 0-5 [facility] Comment on above: Performed By: #### L 500.4050, L501.2300, L501.5200, L100.0100 ####[facility] [address] [place], [address] Erythrocyte distribution width (RBC) [Ratio] 15.3 % High 11.6-14.6 [facility] Comment on above: Performed By: #### L 500.4050, L501.2300, L501.5200, L100.0100 ####[facility] [address] [place], [address] Hematocrit (Bld) [Volume fraction] 38.0 % Low 40-54 [facility] Comment on above: Performed By: #### L 500.4050, L501.2300, L501.5200, L100.0100 ####[facility] [address] [place], [address] Hemoglobin (Bld) [Mass/Vol] 12.5 g/dL Low 13.0-16.5 [facility] Comment on above: Performed By: #### L 500.4050, L501.2300, L501.5200, L100.0100 ####[facility] [address] [place], [address] IG% 1.600 High 0.0-0.9 [facility] Comment on above: Result Comment: IG% - Immature Granulocytes (promyelocytes, myelocytes andmetamyelocytes) > 1% indicates that a LEFT SHIFT is Present. Performed By: #### L 500.4050, L501.2300, L501.5200, L100.0100 ####[facility] [address] [place], [address] Lymphocytes/100 WBC (Bld) 5.1 % Low 19-41 [facility] Comment on above: Performed By: #### L 500.4050, L501.2300, L501.5200, L100.0100 ####[facility] [address] [place], [address] MCH (RBC) [Entitic mass] 30.1 pg Normal 27.0-32.0 [facility] Comment on above: Performed By: #### L 500.4050, L501.2300, L501.5200, L100.0100 ####[facility] [address] [place], [address] MCHC (RBC) [Mass/Vol] 32.9 g/dL Normal 32-36 [facility] Comment on above: Performed By: #### L 500.4050, L501.2300, L501.5200, L100.0100 ####[facility] [address] [place], [address] MCV (RBC) [Entitic vol] 91.6 fL Normal 80-94 [facility] Comment on above: Performed By: #### L 500.4050, L501.2300, L501.5200, L100.0100 ####[facility] [address] [place], [address] Monocytes/100 WBC (Bld) 15.5 % High 0-10 [facility] Comment on above: Performed By: #### L 500.4050, L501.2300, L501.5200, L100.0100 ####[facility] [address] [place], [address] Neutrophils/100 WBC (Bld) 76.8 % High 47-70 [facility] Comment on above: Performed By: #### L 500.4050, L501.2300, L501.5200, L100.0100 ####[facility] [address] [place], [address] Nucleated RBC (Bld) [#/Vol] 0 10*3/uL Normal 0-5 [facility] Comment on above: Performed By: #### L 500.4050, L501.2300, L501.5200, L100.0100 ####[facility] [address] [place], [address] Platelet mean volume (Bld) [Entitic vol] 10.4 fL Normal 6.2-12.0 [facility] Comment on above: Performed By: #### L 500.4050, L501.2300, L501.5200, L100.0100 ####[facility] [address] [place], [address] Platelets (Bld) [#/Vol] 98 10*3/uL Low 150-450 [facility] Comment on above: Performed By: #### L 500.4050, L501.2300, L501.5200, L100.0100 ####[facility] [address] [place], [address] RBC (Bld) [#/Vol] 4.15 10*6/uL Low 4.6-6.2 [facility] Comment on above: Performed By: #### L 500.4050, L501.2300, L501.5200, L100.0100 ####[facility] [address] [place], [address] RDW SD 48.5 fl High 35.1-43.9 [facility] Comment on above: Performed By: #### L 500.4050, L501.2300, L501.5200, L100.0100 ####[facility] [address] [place], [address] WBC (Bld) [#/Vol] 3.7 10*3/uL Low 4.4-11.0 [facility] Comment on above: Performed By: #### L 500.4050, L501.2300, L501.5200, L100.0100 ####[facility] [address] [place], [address] Carbon dioxide, total [Moles /volume] in Central venous bloodOrdered By: Franco Pérez on 08-10-2024 CO2 [Moles/Vol] 27.3 mmol/L 21.0-32.0 [facility] Chloride assayOrdered By: Kala Pérez on 08-10-2024 Chloride [Moles/Vol] 100 mmol/L 98-108 [facility] Comprehensive Metabolic Prof ilon 08-10-2024 Albumin [Mass/Vol] 3.6 g/dL Normal 3.4-4.8 [facility] Comment on above: Performed By: #### L 500.4050, L501.2300, L501.5200, L100.0100 ####[facility] [address] [place], [address] Albumin/Globulin [Mass ratio] 1.2 {ratio} Normal 0.9-2.4 [facility] Comment on above: Performed By: #### L 500.4050, L501.2300, L501.5200, L100.0100 ####[facility] [address] [place], [address] ALK PHOS 103 U/L Normal 40-129 [facility] Comment on above: Performed By: #### L 500.4050, L501.2300, L501.5200, L100.0100 ####[facility] [address] [place], [address] ALT [Catalytic activity/Vol] 21 U/L Normal <=46 [facility] Comment on above: Performed By: #### L 500.4050, L501.2300, L501.5200, L100.0100 ####[facility] [address] [place], [address] AST [Catalytic activity/Vol] 22 U/L Normal <=37 [facility] Comment on above: Performed By: #### L 500.4050, L501.2300, L501.5200, L100.0100 ####[facility] [address] [place], [address] Bilirubin [Mass/Vol] 1.24 mg/dL Normal 0.00-1.30 [facility] Comment on above: Performed By: #### L 500.4050, L501.2300, L501.5200, L100.0100 ####[facility] [address] [place], [address] BUN/CRE 23.1 RATIO High 10-20 [facility] Comment on above: Performed By: #### L 500.4050, L501.2300, L501.5200, L100.0100 ####[facility] [address] [place], [address] Calcium [Mass/Vol] 9.6 mg/dL Normal 7.6-11.0 [facility] Comment on above: Performed By: #### L 500.4050, L501.2300, L501.5200, L100.0100 ####[facility] [address] [place], [address] Chloride [Moles/Vol] 100 mmol/L Normal 98-108 [facility] Comment on above: Performed By: #### L 500.4050, L501.2300, L501.5200, L100.0100 ####[facility] [address] [place], [address] CO2 [Moles/Vol] 27.3 mmol/L Normal 21.0-32.0 [facility] Comment on above: Performed By: #### L 500.4050, L501.2300, L501.5200, L100.0100 ####[facility] [address] [place], [address] Creatinine [Mass/Vol] 0.89 mg/dL Normal 0.70-1.20 [facility] Comment on above: Performed By: #### L 500.4050, L501.2300, L501.5200, L100.0100 ####[facility] [address] [place], [address] ECRCL 105.86 ml/min Normal 50-250 [facility] Comment on above: Performed By: #### L 500.4050, L501.2300, L501.5200, L100.0100 ####[facility] [address] [place], [address] GAP 12 Normal 5-15 [facility] Comment on above: Performed By: #### L 500.4050, L501.2300, L501.5200, L100.0100 ####[facility] [address] [place], [address] GFR/1.73 sq M.predicted among non-blacks MDRD (S/P/Bld) [Vol rate/Area] 91 mL/min/{1.73_m2} Normal >60 [facility] Comment on above: Result Comment: mL/m in/1.73m2 CKD-EPI Creatinine Equation (2020) Performed By: #### L 500.4050, L501.2300, L501.5200, L100.0100 ####[facility] [address] [place], [address] Globulin (S) [Mass/Vol] 3.1 g/dL Normal 2.2-4.2 [facility] Comment on above: Performed By: #### L 500.4050, L501.2300, L501.5200, L100.0100 ####[facility] [address] [place], [address] Glucose [Mass/Vol] 176 mg/dL High 70-99 [facility] Comment on above: Performed By: #### L 500.4050, L501.2300, L501.5200, L100.0100 ####[facility] [address] [place], [address] Potassium [Moles/Vol] 3.9 mmol/L Normal 3.3-5.1 [facility] Comment on above: Performed By: #### L 500.4050, L501.2300, L501.5200, L100.0100 ####[facility] [address] [place], [address] Sodium [Moles/Vol] 139 mmol/L Normal 133-145 [facility] Comment on above: Performed By: #### L 500.4050, L501.2300, L501.5200, L100.0100 ####[facility] [address] [place], [address] T PROT 6.7 g/dL Normal 5.9-8.4 [facility] Comment on above: Performed By: #### L 500.4050, L501.2300, L501.5200, L100.0100 ####[facility] [address] [place], [place], [id number] Urea nitrogen [Mass/Vol] 21 mg/dL High -19 [facility] Comment on above: Performed By: #### L 500.4050, L501.2300, L501.5200, L100.0100 ####[facility] [address] [place], [address] Eosinophil percentageOrdered By: Franco Pérez on 08-10-2024 Eosinophils/100 WBC (Bld) 0.5 % 0-5 [facility] Erythrocyte distribution wid th ratioOrdered By: Franco Beto on 08-10-2024 Erythrocyte distribution width (RBC) [Ratio] 15.3 % High 11.6-14.6 [facility] Erythrocyte distribution wid th standard deviationOrdered By: Franco Beto on 08-10-2024 Erythrocyte distribution width (RBC) [Ratio] 48.5 fl High 35.1-43.9 [facility] Glomerular filtration rate ( GFR) estimation/1.73 sq m using serum, plasma, or whole bOrdered By: Franco Pérez on 08-10-2024 GFR/1.73 sq M.predicted among non-blacks MDRD (S/P/Bld) [Vol rate/Area] 91 mL/min/{1.73_m2} >60 [facility] Comment on above: mL/min/1.73m2 CKD-EP I Creatinine Equation (2020) Hematocrit Auto (Bld) [Volum e fraction]Ordered By: Franco Pérez on 08-10-2024 Hematocrit (Bld) [Volume fraction] 38.0 % Low 40-54 [facility] Hemoglobin measurementOrdere d By: Franco Pérez on 08-10-2024 Hemoglobin (Bld) [Mass/Vol] 12.5 g/dL Low 13.0-16.5 [facility] Immature granulocytes/100 WB C Auto (Bld)Ordered By: Franco Pérez on 08-10-2024 Immature granulocytes/100 WBC (Bld) 1.600 % High 0.0-0.9 [facility] Comment on above: IG% - Immature Granu locytes (promyelocytes, myelocytes and metamyelocytes) > 1% indicates that a LEFT SHIFT is Present. Laboratory - Chemistry and C hemistry - challengeOrdered By: Franco Pérez on 08-10-2024 AST [Catalytic activity/Vol] 22 U/L <38 [facility] MCV (mean corpuscular volume ) determinationOrdered By: Franco Pérez on 08-10-2024 MCV (RBC) [Entitic vol] 91.6 fL 80-94 [facility] Magnesiumon 08-10-2024 Magnesium [Mass/Vol] 2.0 mg/dL Normal 1.5-2.2 [facility] Comment on above: Performed By: #### L 500.4050, L501.2300, L501.5200, L100.0100 ####[facility] [id number] [place], [address] Magnesium measurement (mass/ volume)Ordered By: Franco Pérez on 08-10-2024 Magnesium (Unsp spec) [Mass/Vol] 2.0 mg/dL 1.5-2.2 [facility] Mean corpuscular hemoglobin (MCH) determinationOrdered By: Franco Pérez on 08-10-2024 MCH (RBC) [Entitic mass] 30.1 pg 27.0-32.0 [facility] Mean corpuscular hemoglobin concentration (MCHC) determinationOrdered By: Franco Pérez on 08-10-2024 MCHC (RBC) [Mass/Vol] 32.9 g/dL 32-36 [facility] Mean platelet volume determi nationOrdered By: Franco Pérez on 08-10-2024 Platelet mean volume (Bld) [Entitic vol] 10.4 fL 6.2-12.0 [facility] Monocyte percentageOrdered B y: Franco Pérez on 08-10-2024 Monocytes/100 WBC (Bld) 15.5 % High 0-10 [facility] Neutrophil percentageOrdered By: Franco Pérez on 08-10-2024 Neutrophils/100 WBC (Bld) 76.8 % High 47-70 [facility] Nucleated red blood cell per centageOrdered By: Franco Pérez on 08-10-2024 Nucleated RBC/100 WBC (Bld) [Ratio] 0 % 0-5 [facility] Oncology Visit Reporton 07-23 Oncology Visit Report Normal [facility] Phosphoruson 08-10-2024 Phosphate [Mass/Vol] 2.6 mg/dL Low 2.7-4.5 [facility] Comment on above: Performed By: #### L 500.4050, L501.2300, L501.5200, L100.0100 ####[facility] [address] [place], [address] Platelet countOrdered By: Kala Pérez on 08-10-2024 Platelets (Bld) [#/Vol] 98 10*3/uL Low 150-450 [facility] Potassium measurement (mass/ volume)Ordered By: Franco Pérez on 08-10-2024 Potassium (Unsp spec) [Mass/Vol] 3.9 mmol/L 3.3-5.1 [facility] RBC Auto (Bld) [#/Vol]Ordere d By: Franco Pérez on 08-10-2024 RBC (Bld) [#/Vol] 4.15 10*6/uL Low 4.6-6.2 [facility] Serum creatinine measurement (mass/volume)Ordered By: Franco Pérez on 08-10-2024 Creatinine [Mass/Vol] 0.89 mg/dL 0.70-1.20 [facility] Serum globulin measurementOr dered By: Franco Pérez on 08-10-2024 Globulin (S) [Mass/Vol] 3.1 g/dL 2.2-4.2 [facility] Serum glucose measurement (m ass/volume)Ordered By: Franco Pérez on 08-10-2024 Glucose [Mass/Vol] 176 mg/dL High 70-99 [facility] Serum or plasma alanine cabral otransferase (ALT) measurementOrdered By: Franco Pérez on 08-10-2024 ALT [Catalytic activity/Vol] 21 U/L <47 [facility] Serum or plasma albumin blaine urement (mass/volume)Ordered By: Franco Pérez on 08-10-2024 Albumin [Mass/Vol] 3.6 g/dL 3.4-4.8 [facility] Serum or plasma albumin/glob ulin mass ratioOrdered By: Franco Pérez on 08-10-2024 Albumin/Globulin [Mass ratio] 1.2 {ratio} 0.9-2.4 [facility] Serum or plasma alkaline zee sphatase measurementOrdered By: Franco Pérez on 08-10-2024 ALP [Catalytic activity/Vol] 103 U/L 40-129 [facility] Serum or plasma calcium blaine urement (mass/volume)Ordered By: Franco Pérez on 08-10-2024 Calcium [Mass/Vol] 9.6 mg/dL 7.6-11.0 [facility] Serum or plasma urea nitroge n measurement (mass/volume)Ordered By: Franco Pérez on 08-10-2024 Urea nitrogen [Mass/Vol] 21 mg/dL High 4-19 [facility] Sodium levelOrdered By: Jonathon Pérez on 08-10-2024 Sodium [Moles/Vol] 139 mmol/L 133-145 [facility] Total proteinOrdered By: Faheem Pérez on 08-10-2024 Protein [Mass/Vol] 6.7 g/dL 5.9-8.4 [facility] White blood cell (WBC) count Ordered By: Franco Pérez on 08-10-2024 WBC (Bld) [#/Vol] 3.7 10*3/uL Low 4.4-11.0 [facility] Radiation Oncology Visiton 0 08-05-2024 Radiation Oncology Visit Normal [facility] Absolute lymphocyte countOrd ered By: Franco Pérez on 08-03-2024 Lymphocytes Auto (Unsp spec) [#/Vol] 0.23 10*3/uL Low 0.83-4.51 [facility] Absolute neutrophil countOrd ered By: Franco Pérez on 08-03-2024 Neutrophils (Bld) [#/Vol] 1.8 10*3/uL Low 2.0-7.7 [facility] Anion gap in Serum or Plasma Ordered By: Franco Pérez on 08-03-2024 Anion gap [Moles/Vol] 11 mmol/L 5-15 [facility] Automated lymphocyte count a s percentage of total leukocytesOrdered By: Franco Pérez on 08-03-2024 Lymphocytes/100 WBC Auto (Unsp spec) 9.4 % Low 19-41 [facility] BUN/creatinine ratioOrdered By: Franco Pérez on 08-03-2024 Urea nitrogen/Creatinine [Mass ratio] 26.5 mg/mg High 10-20 [facility] Basophil percentageOrdered B y: Franco Pérez on 08-03-2024 Basophils/100 WBC (Bld) 1.2 % High 0-1 [facility] Bilirubin, totalOrdered By: Franco Pérez on 08-03-2024 Bilirubin [Mass/Vol] 1.00 mg/dL 0.00-1.30 [facility] Blood manual differential co mment interpretation (narrative result)Ordered By: Franco Pérez on 08-03-2024 Manual differential comment Jovanny (Bld) [Interp] COMMENT [facility] Comment on above: LYMPHOPENIA. CBC W/Diff, Automatedon 07-23 PLT EST MOD DEC Normal ADEQ [facility] Comment on above: Performed By: #### L 100.0100, L501.2300, L500.4050, L501.5200 ####[facility] [address] [place], [address] SMEAR COMMENT COMMENT Normal [facility] Comment on above: Result Comment: LYMP HOPENIA. Performed By: #### L 100.0100, L501.2300, L500.4050, L501.5200 ####[facility] [address] [place], [address] Carbon dioxide, total [Moles /volume] in Central venous bloodOrdered By: Franco Pérez on 08-03-2024 CO2 [Moles/Vol] 25.3 mmol/L 21.0-32.0 [facility] Chloride assayOrdered By: Kala Pérez on 08-03-2024 Chloride [Moles/Vol] 103 mmol/L 98-108 [facility] Comprehensive Metabolic Prof ilon 08-03-2024 Albumin [Mass/Vol] 3.5 g/dL Normal 3.4-4.8 [facility] Comment on above: Performed By: #### L 100.0100, L501.2300, L500.4050, L501.5200 ####[facility] [address] [place], [address] Albumin/Globulin [Mass ratio] 1.2 {ratio} Normal 0.9-2.4 [facility] Comment on above: Performed By: #### L 100.0100, L501.2300, L500.4050, L501.5200 ####[facility] [address] [place], [address] ALK PHOS 93 U/L Normal 40-129 [facility] Comment on above: Performed By: #### L 100.0100, L501.2300, L500.4050, L501.5200 ####[facility] [address] [place], [address] ALT [Catalytic activity/Vol] 31 U/L Normal <=46 [facility] Comment on above: Performed By: #### L 100.0100, L501.2300, L500.4050, L501.5200 ####[facility] [address] [place], [address] AST [Catalytic activity/Vol] 22 U/L Normal <=37 [facility] Comment on above: Performed By: #### L 100.0100, L501.2300, L500.4050, L501.5200 ####[facility] [address] [place], [address] Bilirubin [Mass/Vol] 1.00 mg/dL Normal 0.00-1.30 [facility] Comment on above: Performed By: #### L 100.0100, L501.2300, L500.4050, L501.5200 ####[facility] [address] [place], [address] BUN/CRE 26.5 RATIO High 10-20 [facility] Comment on above: Performed By: #### L 100.0100, L501.2300, L500.4050, L501.5200 ####[facility] [address] [place], [address] Calcium [Mass/Vol] 9.1 mg/dL Normal 7.6-11.0 [facility] Comment on above: Performed By: #### L 100.0100, L501.2300, L500.4050, L501.5200 ####[facility] [address] [place], [address] Chloride [Moles/Vol] 103 mmol/L Normal 98-108 [facility] Comment on above: Performed By: #### L 100.0100, L501.2300, L500.4050, L501.5200 ####[facility] [address] [place], [address] CO2 [Moles/Vol] 25.3 mmol/L Normal 21.0-32.0 [facility] Comment on above: Performed By: #### L 100.0100, L501.2300, L500.4050, L501.5200 ####[facility] [address] [place], [address] Creatinine [Mass/Vol] 0.86 mg/dL Normal 0.70-1.20 [facility] Comment on above: Performed By: #### L 100.0100, L501.2300, L500.4050, L501.5200 ####[facility] [address] [place], [address] ECRCL 109.16 ml/min Normal 50-250 [facility] Comment on above: Performed By: #### L 100.0100, L501.2300, L500.4050, L501.5200 ####[facility] [address] [place], [address] GAP 11 Normal 5-15 [facility] Comment on above: Performed By: #### L 100.0100, L501.2300, L500.4050, L501.5200 ####[facility] [address] [place], [address] GFR/1.73 sq M.predicted among non-blacks MDRD (S/P/Bld) [Vol rate/Area] 92 mL/min/{1.73_m2} Normal >60 [facility] Comment on above: Result Comment: mL/m in/1.73m2 CKD-EPI Creatinine Equation (2020) Performed By: #### L 100.0100, L501.2300, L500.4050, L501.5200 ####[facility] [address] [place], [address] Globulin (S) [Mass/Vol] 3.0 g/dL Normal 2.2-4.2 [facility] Comment on above: Performed By: #### L 100.0100, L501.2300, L500.4050, L501.5200 ####[facility] [address] [place], [address] Glucose [Mass/Vol] 155 mg/dL High 70-99 [facility] Comment on above: Performed By: #### L 100.0100, L501.2300, L500.4050, L501.5200 ####[facility] [address] [place], [address] Potassium [Moles/Vol] 3.9 mmol/L Normal 3.3-5.1 [facility] Comment on above: Performed By: #### L 100.0100, L501.2300, L500.4050, L501.5200 ####[facility] [address] [place], [address] Sodium [Moles/Vol] 139 mmol/L Normal 133-145 [facility] Comment on above: Performed By: #### L 100.0100, L501.2300, L500.4050, L501.5200 ####[facility] [address] [place], [address] T PROT 6.5 g/dL Normal 5.9-8.4 [facility] Comment on above: Performed By: #### L 100.0100, L501.2300, L500.4050, L501.5200 ####[facility] [address] [place], [address] Urea nitrogen [Mass/Vol] 23 mg/dL High 4-19 [facility] Comment on above: Performed By: #### L 100.0100, L501.2300, L500.4050, L501.5200 ####[facility] [address] [place], [address] Eosinophil percentageOrdered By: Franco Pérez on 08-03-2024 Eosinophils/100 WBC (Bld) 0.4 % 0-5 [facility] Erythrocyte distribution wid th ratioOrdered By: Franco Pérez on 08-03-2024 Erythrocyte distribution width (RBC) [Ratio] 14.3 % 11.6-14.6 [facility] Erythrocyte distribution wid th standard deviationOrdered By: Franco Pérez on 08-03-2024 Erythrocyte distribution width (RBC) [Ratio] 44.7 fl High 35.1-43.9 [facility] Glomerular filtration rate ( GFR) estimation/1.73 sq m using serum, plasma, or whole bOrdered By: Franco Pérez on 08-03-2024 GFR/1.73 sq M.predicted among non-blacks MDRD (S/P/Bld) [Vol rate/Area] 92 mL/min/{1.73_m2} >60 [facility] Comment on above: mL/min/1.73m2 CKD-EP I Creatinine Equation (2020) Hematocrit Auto (Bld) [Volum e fraction]Ordered By: Franco Pérez on 08-03-2024 Hematocrit (Bld) [Volume fraction] 37.8 % Low 40-54 [facility] Hemoglobin measurementOrdere d By: Franco Pérez on 08-03-2024 Hemoglobin (Bld) [Mass/Vol] 12.5 g/dL Low 13.0-16.5 [facility] Immature granulocytes/100 WB C Auto (Bld)Ordered By: Franco Pérez on 08-03-2024 Immature granulocytes/100 WBC (Bld) 2.900 % High 0.0-0.9 [facility] Comment on above: IG% - Immature Granu locytes (promyelocytes, myelocytes and metamyelocytes) > 1% indicates that a LEFT SHIFT is Present. Laboratory - Chemistry and C hemistry - challengeOrdered By: Franco Anderson on 08-03-2024 AST [Catalytic activity/Vol] 22 U/L <38 [facility] MCV (mean corpuscular volume ) determinationOrdered By: Franco Pérez on 08-03-2024 MCV (RBC) [Entitic vol] 90.4 fL 80-94 [facility] Magnesiumon 08-03-2024 Magnesium [Mass/Vol] 1.8 mg/dL Normal 1.5-2.2 [facility] Comment on above: Performed By: #### L 100.0100, L501.2300, L500.4050, L501.5200 ####[facility] [address] [place], [place], [address] Magnesium measurement (mass/ volume)Ordered By: Franco [facility] on 08-03-2024 Magnesium (Unsp spec) [Mass/Vol] 1.8 mg/dL 1.5-2.2 [facility] Mean corpuscular hemoglobin (MCH) determinationOrdered By: Franco Pérez on 08-03-2024 MCH (RBC) [Entitic mass] 29.9 pg 27.0-32.0 [facility] Mean corpuscular hemoglobin concentration (MCHC) determinationOrdered By: Franco [facility] on 08-03-2024 MCHC (RBC) [Mass/Vol] 33.1 g/dL 32-36 [facility] Mean platelet volume determi nationOrdered By: Farnco Pérez on 08-03-2024 Platelet mean volume (Bld) [Entitic vol] 11.2 fL 6.2-12.0 [facility] Monocyte percentageOrdered B y: Franco Pérez on 08-03-2024 Monocytes/100 WBC (Bld) 13.5 % High 0-10 [facility] Neutrophil percentageOrdered By: Franco Pérez on 08-03-2024 Neutrophils/100 WBC (Bld) 72.6 % High 47-70 [facility] Nucleated red blood cell per centageOrdered By: Franco Pérez on 08-03-2024 Nucleated RBC/100 WBC (Bld) [Ratio] 0 % 0-5 [facility] Oncology Visit Reporton 07-23 Oncology Visit Report Normal [facility] Phosphoruson 08-03-2024 Phosphate [Mass/Vol] 2.6 mg/dL Low 2.7-4.5 [facility] Comment on above: Performed By: #### L 100.0100, L501.2300, L500.4050, L501.5200 ####[facility] [address] [place], [address] Platelet countOrdered By: Kala Pérez on 08-03-2024 Platelets (Bld) [#/Vol] 72 10*3/uL Low 150-450 [facility] Platelet estimateOrdered By: Franco Pérez on 08-03-2024 Platelets LM Ql (Bld) MOD DEC ADEQ [facility] Potassium measurement (mass/ volume)Ordered By: Franco Pérez on 08-03-2024 Potassium (Unsp spec) [Mass/Vol] 3.9 mmol/L 3.3-5.1 [facility] RBC Auto (Bld) [#/Vol]Ordere d By: Franco Pérez on 08-03-2024 RBC (Bld) [#/Vol] 4.18 10*6/uL Low 4.6-6.2 [facility] Serum creatinine measurement (mass/volume)Ordered By: Franco Pérez on 08-03-2024 Creatinine [Mass/Vol] 0.86 mg/dL 0.70-1.20 [facility] Serum globulin measurementOr dered By: Franco Pérez on 08-03-2024 Globulin (S) [Mass/Vol] 3.0 g/dL 2.2-4.2 [facility] Serum glucose measurement (m ass/volume)Ordered By: Franco Pérez on 08-03-2024 Glucose [Mass/Vol] 155 mg/dL High 70-99 [facility] Serum or plasma alanine cabral otransferase (ALT) measurementOrdered By: Franco Pérez on 08-03-2024 ALT [Catalytic activity/Vol] 31 U/L <47 [facility] Serum or plasma albumin blaine urement (mass/volume)Ordered By: Franco Pérez on 08-03-2024 Albumin [Mass/Vol] 3.5 g/dL 3.4-4.8 [facility] Serum or plasma albumin/glob ulin mass ratioOrdered By: Franco Pérez on 08-03-2024 Albumin/Globulin [Mass ratio] 1.2 {ratio} 0.9-2.4 [facility] Serum or plasma alkaline zee sphatase measurementOrdered By: Franco Pérez on 08-03-2024 ALP [Catalytic activity/Vol] 93 U/L 40-129 [facility] Serum or plasma calcium blaine urement (mass/volume)Ordered By: Franco Pérez on 08-03-2024 Calcium [Mass/Vol] 9.1 mg/dL 7.6-11.0 [facility] Serum or plasma urea nitroge n measurement (mass/volume)Ordered By: Franco Pérez on 08-03-2024 Urea nitrogen [Mass/Vol] 23 mg/dL High 4-19 [facility] Sodium levelOrdered By: Jonathon Préez on 08-03-2024 Sodium [Moles/Vol] 139 mmol/L 133-145 [facility] Total proteinOrdered By: Faheem Pérez on 08-03-2024 Protein [Mass/Vol] 6.5 g/dL 5.9-8.4 [facility] White blood cell (WBC) count Ordered By: Franco Pérez on 08-03-2024 WBC (Bld) [#/Vol] 2.5 10*3/uL Low 4.4-11.0 [facility] Radiation Oncology Visiton 0 - Radiation Oncology Visit Normal [facility] CBC W/Diff, Automatedon Absolute Lymph 0.21 X10 3/uL Low 0.83-4.51 [facility] Comment on above: Performed By: #### L 501.2300, L501.5200, L100.0100, L500.4050 ####[facility] [address] [place], [address] Absolute Neut 2.3 X10 3/uL Normal 2.0-7.7 [facility] Comment on above: Performed By: #### L 501.2300, L501.5200, L100.0100, L500.4050 ####[facility] [address] [place], [address] Basophils/100 WBC (Bld) 1.6 % High 0-1 [facility] Comment on above: Performed By: #### L 501.2300, L501.5200, L100.0100, L500.4050 ####[facility] [address] [place], [address] Eosinophils/100 WBC (Bld) 0.6 % Normal 0-5 [facility] Comment on above: Performed By: #### L 501.2300, L501.5200, L100.0100, L500.4050 ####[facility] [address] [place], [address] Erythrocyte distribution width (RBC) [Ratio] 13.9 % Normal 11.6-14.6 [facility] Comment on above: Performed By: #### L 501.2300, L501.5200, L100.0100, L500.4050 ####[facility] [address] [place], [address] Hematocrit (Bld) [Volume fraction] 39.3 % Low 40-54 [facility] Comment on above: Performed By: #### L 501.2300, L501.5200, L100.0100, L500.4050 ####[facility] [address] [place], [address] Hemoglobin (Bld) [Mass/Vol] 13.0 g/dL Normal 13.0-16.5 [facility] Comment on above: Performed By: #### L 501.2300, L501.5200, L100.0100, L500.4050 ####[facility] [address] [place], [address] IG% 1.900 High 0.0-0.9 [facility] Comment on above: Result Comment: IG% - Immature Granulocytes (promyelocytes, myelocytes andmetamyelocytes) > 1% indicates that a LEFT SHIFT is Present. Performed By: #### L 501.2300, L501.5200, L100.0100, L500.4050 ####[facility] [address] [place], [address] Lymphocytes/100 WBC (Bld) 6.6 % Low 19-41 [facility] Comment on above: Performed By: #### L 501.2300, L501.5200, L100.0100, L500.4050 ####[facility] [address] [place], [address] MCH (RBC) [Entitic mass] 29.5 pg Normal 27.0-32.0 [facility] Comment on above: Performed By: #### L 501.2300, L501.5200, L100.0100, L500.4050 ####[facility] [address] [place], [address] MCHC (RBC) [Mass/Vol] 33.1 g/dL Normal 32-36 [facility] Comment on above: Performed By: #### L 501.2300, L501.5200, L100.0100, L500.4050 ####[facility] [address] [place], [address] MCV (RBC) [Entitic vol] 89.3 fL Normal 80-94 [facility] Comment on above: Performed By: #### L 501.2300, L501.5200, L100.0100, L500.4050 ####[facility] [address] [place], [address] Monocytes/100 WBC (Bld) 18.8 % High 0-10 [facility] Comment on above: Performed By: #### L 501.2300, L501.5200, L100.0100, L500.4050 ####[facility] [address] [place], [address] Neutrophils/100 WBC (Bld) 70.5 % High 47-70 [facility] Comment on above: Performed By: #### L 501.2300, L501.5200, L100.0100, L500.4050 ####[facility] [address] [place], [address] Nucleated RBC (Bld) [#/Vol] 0 10*3/uL Normal 0-5 [facility] Comment on above: Performed By: #### L 501.2300, L501.5200, L100.0100, L500.4050 ####[facility] [address] [place], [address] Platelet mean volume (Bld) [Entitic vol] 10.2 fL Normal 6.2-12.0 [facility] Comment on above: Performed By: #### L 501.2300, L501.5200, L100.0100, L500.4050 ####[facility] [address] [place], [address] Platelets (Bld) [#/Vol] 103 10*3/uL Low 150-450 [facility] Comment on above: Performed By: #### L 501.2300, L501.5200, L100.0100, L500.4050 ####[facility] [address] [place], [address] RBC (Bld) [#/Vol] 4.40 10*6/uL Low 4.6-6.2 [facility] Comment on above: Performed By: #### L 501.2300, L501.5200, L100.0100, L500.4050 ####[facility] [address] [place], [address] RDW SD 44.1 fl High 35.1-43.9 [facility] Comment on above: Performed By: #### L 501.2300, L501.5200, L100.0100, L500.4050 ####[facility] [address] [place], [address] WBC (Bld) [#/Vol] 3.2 10*3/uL Low 4.4-11.0 [facility] Comment on above: Performed By: #### L 501.2300, L501.5200, L100.0100, L500.4050 ####[facility] [address] [place], [address] Comprehensive Metabolic Prof [facility] 07-27-2024 Albumin [Mass/Vol] 3.6 g/dL Normal 3.4-4.8 [facility] Comment on above: Performed By: #### L 501.2300, L501.5200, L100.0100, L500.4050 ####[facility] [address] [place], [address] Albumin/Globulin [Mass ratio] 1.1 {ratio} Normal 0.9-2.4 [facility] Comment on above: Performed By: #### L 501.2300, L501.5200, L100.0100, L500.4050 ####[facility] [address] [place], [address] ALK PHOS 88 U/L Normal 40-129 [facility] Comment on above: Performed By: #### L 501.2300, L501.5200, L100.0100, L500.4050 ####[facility] [address] [place], [address] ALT [Catalytic activity/Vol] 25 U/L Normal <=46 [facility] Comment on above: Performed By: #### L 501.2300, L501.5200, L100.0100, L500.4050 ####[facility] [address] [place], [address] AST [Catalytic activity/Vol] 18 U/L Normal <=37 [facility] Comment on above: Performed By: #### L 501.2300, L501.5200, L100.0100, L500.4050 ####[facility] [address] [place], [address] Bilirubin [Mass/Vol] 1.62 mg/dL High 0.00-1.30 [facility] Comment on above: Performed By: #### L 501.2300, L501.5200, L100.0100, L500.4050 ####[facility] [address] [place], [address] BUN/CRE 26.0 RATIO High 10-20 [facility] Comment on above: Performed By: #### L 501.2300, L501.5200, L100.0100, L500.4050 ####[facility] [address] [place], [address] Calcium [Mass/Vol] 9.5 mg/dL Normal 7.6-11.0 [facility] Comment on above: Performed By: #### L 501.2300, L501.5200, L100.0100, L500.4050 ####[facility] [address] [place], [address] Chloride [Moles/Vol] 102 mmol/L Normal 98-108 [facility] Comment on above: Performed By: #### L 501.2300, L501.5200, L100.0100, L500.4050 ####[facility] [address] [place], [address] CO2 [Moles/Vol] 23.3 mmol/L Normal 21.0-32.0 [facility] Comment on above: Performed By: #### L 501.2300, L501.5200, L100.0100, L500.4050 ####[facility] [address] [place], [address] Creatinine [Mass/Vol] 0.92 mg/dL Normal 0.70-1.20 [facility] Comment on above: Performed By: #### L 501.2300, L501.5200, L100.0100, L500.4050 ####[facility] [address] [place], [address] ECRCL 102.97 ml/min Normal 50-250 [facility] Comment on above: Performed By: #### L 501.2300, L501.5200, L100.0100, L500.4050 ####[facility] [address] [place], [address] GAP 15 Normal 5-15 [facility] Comment on above: Performed By: #### L 501.2300, L501.5200, L100.0100, L500.4050 ####[facility] [address] [place], [address] GFR/1.73 sq M.predicted among non-blacks MDRD (S/P/Bld) [Vol rate/Area] 89 mL/min/{1.73_m2} Normal >60 [facility] Comment on above: Result Comment: mL/m in/1.73m2 CKD-EPI Creatinine Equation (2020) Performed By: #### L 501.2300, L501.5200, L100.0100, L500.4050 ####[facility] [address] [place], [address] Globulin (S) [Mass/Vol] 3.3 g/dL Normal 2.2-4.2 [facility] Comment on above: Performed By: #### L 501.2300, L501.5200, L100.0100, L500.4050 ####[facility] [address] [place], [address] Glucose [Mass/Vol] 166 mg/dL High 70-99 [facility] Comment on above: Performed By: #### L 501.2300, L501.5200, L100.0100, L500.4050 ####[facility] [address] [place], [address] Potassium [Moles/Vol] 3.9 mmol/L Normal 3.3-5.1 [facility] Comment on above: Performed By: #### L 501.2300, L501.5200, L100.0100, L500.4050 ####[facility] [address] [place], [address] Sodium [Moles/Vol] 140 mmol/L Normal 133-145 [facility] Comment on above: Performed By: #### L 501.2300, L501.5200, L100.0100, L500.4050 ####[facility] [address] [place], [address] T PROT 6.9 g/dL Normal 5.9-8.4 [facility] Comment on above: Performed By: #### L 501.2300, L501.5200, L100.0100, L500.4050 ####[facility] [address] [place], [address] Urea nitrogen [Mass/Vol] 24 mg/dL High 4-19 [facility] Comment on above: Performed By: #### L 501.2300, L501.5200, L100.0100, L500.4050 ####[facility] [address] [place], [address] Magnesiumon 07-27-2024 Magnesium [Mass/Vol] 1.8 mg/dL Normal 1.5-2.2 [facility] Comment on above: Performed By: #### L 501.2300, L501.5200, L100.0100, L500.4050 ####[facility] [address] [place], [address] Oncology Visit Reporton Oncology Visit Report Normal [facility] Phosphoruson 07-27-2024 Phosphate [Mass/Vol] 3.2 mg/dL Normal 2.7-4.5 [facility] Comment on above: Performed By: #### L 501.2300, L501.5200, L100.0100, L500.4050 ####[facility] [address] [place], [address] Radiation Oncology Visiton 0 07-22-2024 Radiation Oncology Visit Normal [facility] Surgery Visit Reporton 07-22 Surgery Visit Report Normal [facility] CBC W/Diff, Automatedon 06-24 Absolute Lymph 0.45 X10 3/uL Low 0.83-4.51 [facility] Comment on above: Performed By: #### L 501.2300, L100.0100, L501.5200, L500.4050 ####[facility] [address] [place], [address] Absolute Neut 4.1 X10 3/uL Normal 2.0-7.7 [facility] Comment on above: Performed By: #### L 501.2300, L100.0100, L501.5200, L500.4050 ####[facility] [address] [place], [address] Basophils/100 WBC (Bld) 1.1 % High 0-1 [facility] Comment on above: Performed By: #### L 501.2300, L100.0100, L501.5200, L500.4050 ####[facility] [address] [place], [address] Eosinophils/100 WBC (Bld) 2.8 % Normal 0-5 [facility] Comment on above: Performed By: #### L 501.2300, L100.0100, L501.5200, L500.4050 ####[facility] [address] [place], [address] Erythrocyte distribution width (RBC) [Ratio] 13.6 % Normal 11.6-14.6 [facility] Comment on above: Performed By: #### L 501.2300, L100.0100, L501.5200, L500.4050 ####[facility] [address] [place], [address] Hematocrit (Bld) [Volume fraction] 41.3 % Normal 40-54 [facility] Comment on above: Performed By: #### L 501.2300, L100.0100, L501.5200, L500.4050 ####[facility] [address] [place], [address] Hemoglobin (Bld) [Mass/Vol] 13.6 g/dL Normal 13.0-16.5 [facility] Comment on above: Performed By: #### L 501.2300, L100.0100, L501.5200, L500.4050 ####[facility] [address] [place], [address] IG% 1.700 High 0.0-0.9 [facility] Comment on above: Result Comment: IG% - Immature Granulocytes (promyelocytes, myelocytes andmetamyelocytes) > 1% indicates that a LEFT SHIFT is Present. Performed By: #### L 501.2300, L100.0100, L501.5200, L500.4050 ####[facility] [address] [place], [address] Lymphocytes/100 WBC (Bld) 8.3 % Low 19-41 [facility] Comment on above: Performed By: #### L 501.2300, L100.0100, L501.5200, L500.4050 ####[facility] [address] [place], [address] MCH (RBC) [Entitic mass] 29.6 pg Normal 27.0-32.0 [facility] Comment on above: Performed By: #### L 501.2300, L100.0100, L501.5200, L500.4050 ####[facility] [address] [place], [address] MCHC (RBC) [Mass/Vol] 32.9 g/dL Normal 32-36 [facility] Comment on above: Performed By: #### L 501.2300, L100.0100, L501.5200, L500.4050 ####[facility] [address] [place], [address] MCV (RBC) [Entitic vol] 90.0 fL Normal 80-94 [facility] Comment on above: Performed By: #### L 501.2300, L100.0100, L501.5200, L500.4050 ####[facility] [address] [place], [address] Monocytes/100 WBC (Bld) 10.1 % High 0-10 [facility] Comment on above: Performed By: #### L 501.2300, L100.0100, L501.5200, L500.4050 ####[facility] [address] [place], [address] Neutrophils/100 WBC (Bld) 76.0 % High 47-70 [facility] Comment on above: Performed By: #### L 501.2300, L100.0100, L501.5200, L500.4050 ####[facility] [address] [place], [address] Nucleated RBC (Bld) [#/Vol] 0 10*3/uL Normal 0-5 [facility] Comment on above: Performed By: #### L 501.2300, L100.0100, L501.5200, L500.4050 ####[facility] [address] [place], [address] Platelet mean volume (Bld) [Entitic vol] 10.7 fL Normal 6.2-12.0 [facility] Comment on above: Performed By: #### L 501.2300, L100.0100, L501.5200, L500.4050 ####[facility] [address] [place], [address] Platelets (Bld) [#/Vol] 164 10*3/uL Normal 150-450 [facility] Comment on above: Performed By: #### L 501.2300, L100.0100, L501.5200, L500.4050 ####[facility] [address] [place], [address] RBC (Bld) [#/Vol] 4.59 10*6/uL Low 4.6-6.2 [facility] Comment on above: Performed By: #### L 501.2300, L100.0100, L501.5200, L500.4050 ####[facility] [address] [place], [address] RDW SD 43.8 fl Normal 35.1-43.9 [facility] Comment on above: Performed By: #### L 501.2300, L100.0100, L501.5200, L500.4050 ####[facility] [address] [place], [address] WBC (Bld) [#/Vol] 5.4 10*3/uL Normal 4.4-11.0 [facility] Comment on above: Performed By: #### L 501.2300, L100.0100, L501.5200, L500.4050 ####[facility] [address] [place], [address] Comprehensive Metabolic Prof ilon 07-20-2024 Albumin [Mass/Vol] 3.8 g/dL Normal 3.4-4.8 [facility] Comment on above: Performed By: #### L 501.2300, L100.0100, L501.5200, L500.4050 ####[facility] [address] [place], [address] Albumin/Globulin [Mass ratio] 1.1 {ratio} Normal 0.9-2.4 [facility] Comment on above: Performed By: #### L 501.2300, L100.0100, L501.5200, L500.4050 ####[facility] [address] [place], [address] ALK PHOS 93 U/L Normal 40-129 [facility] Comment on above: Performed By: #### L 501.2300, L100.0100, L501.5200, L500.4050 ####[facility] [address] [place], [address] ALT [Catalytic activity/Vol] 34 U/L Normal <=46 [facility] Comment on above: Performed By: #### L 501.2300, L100.0100, L501.5200, L500.4050 ####[facility] [address] [place], [address] AST [Catalytic activity/Vol] 25 U/L Normal <=37 [facility] Comment on above: Performed By: #### L 501.2300, L100.0100, L501.5200, L500.4050 ####[facility] [address] [place], [address] Bilirubin [Mass/Vol] 1.53 mg/dL High 0.00-1.30 [facility] Comment on above: Performed By: #### L 501.2300, L100.0100, L501.5200, L500.4050 ####[facility] [address] [place], [address] BUN/CRE 18.1 RATIO Normal 10-20 [facility] Comment on above: Performed By: #### L 501.2300, L100.0100, L501.5200, L500.4050 ####[facility] [address] [place], [address] Calcium [Mass/Vol] 9.5 mg/dL Normal 7.6-11.0 [facility] Comment on above: Performed By: #### L 501.2300, L100.0100, L501.5200, L500.4050 ####[facility] [address] [place], [address] Chloride [Moles/Vol] 101 mmol/L Normal 98-108 [facility] Comment on above: Performed By: #### L 501.2300, L100.0100, L501.5200, L500.4050 ####[facility] [address] [place], [address] CO2 [Moles/Vol] 23.8 mmol/L Normal 21.0-32.0 [facility] Comment on above: Performed By: #### L 501.2300, L100.0100, L501.5200, L500.4050 ####[facility] [address] [place], [address] Creatinine [Mass/Vol] 0.99 mg/dL Normal 0.70-1.20 [facility] Comment on above: Performed By: #### L 501.2300, L100.0100, L501.5200, L500.4050 ####[facility] [address] [place], [address] ECRCL 98.19 ml/min Normal 50-250 [facility] Comment on above: Performed By: #### L 501.2300, L100.0100, L501.5200, L500.4050 ####[facility] [address] [place], [address] GAP 13 Normal 5-15 [facility] Comment on above: Performed By: #### L 501.2300, L100.0100, L501.5200, L500.4050 ####[facility] [address] [place], [address] GFR/1.73 sq M.predicted among non-blacks MDRD (S/P/Bld) [Vol rate/Area] 81 mL/min/{1.73_m2} Normal >60 [facility] Comment on above: Result Comment: mL/m in/1.73m2 CKD-EPI Creatinine Equation (2020) Performed By: #### L 501.2300, L100.0100, L501.5200, L500.4050 ####[facility] [address] [place], [address] Globulin (S) [Mass/Vol] 3.4 g/dL Normal 2.2-4.2 [facility] Comment on above: Performed By: #### L 501.2300, L100.0100, L501.5200, L500.4050 ####[facility] [address] [place], [address] Glucose [Mass/Vol] 166 mg/dL High 70-99 [facility] Comment on above: Performed By: #### L 501.2300, L100.0100, L501.5200, L500.4050 ####[facility] [address] [place], [address] Potassium [Moles/Vol] 4.1 mmol/L Normal 3.3-5.1 [facility] Comment on above: Performed By: #### L 501.2300, L100.0100, L501.5200, L500.4050 ####[facility] [address] [place], [address] Sodium [Moles/Vol] 137 mmol/L Normal 133-145 [facility] Comment on above: Performed By: #### L 501.2300, L100.0100, L501.5200, L500.4050 ####[facility] [address] [place], [address] T PROT 7.2 g/dL Normal 5.9-8.4 [facility] Comment on above: Performed By: #### L 501.2300, L100.0100, L501.5200, L500.4050 ####[facility] [address] [place], [address] Urea nitrogen [Mass/Vol] 18 mg/dL Normal 4-19 [facility] Comment on above: Performed By: #### L 501.2300, L100.0100, L501.5200, L500.4050 ####[facility] [address] [place], [address] Magnesiumon 07-20-2024 Magnesium [Mass/Vol] 1.8 mg/dL Normal 1.5-2.2 [facility] Comment on above: Performed By: #### L 501.2300, L100.0100, L501.5200, L500.4050 ####[facility] [address] [place], [address] Oncology Visit Reporton 04-2 8-2025 Oncology Visit Report Normal [facility] Phosphoruson 07-20-2024 Phosphate [Mass/Vol] 2.7 mg/dL Normal 2.7-4.5 [facility] Comment on above: Performed By: #### L 501.2300, L100.0100, L501.5200, L500.4050 ####[facility] [address] [place], [address] TSH DL <= 0.005 mIU/L QnOrde red By: Bulmaro Curtis on 07-20-2024 TSH Qn 0.524 uIU/mL 0.300-4.20 0 [facility] Thyroid Stim Hormone (TSH)on 07-20-2024 TSH 0.524 uIU/mL Normal 0.300-4.20 0 [facility] Comment on above: Performed By: #### L 501.9520, L506.1001 ####[facility] [address] [place], [address] Vitamin D,25 Hydroxyon 07-20 Vitamin D 25-OH 27.2 ng/mL Low 30-100 [facility] Comment on above: Result Comment: Rhonda min D StatusDeficiency: <20 ng/mL (50nmol/L)Insufficiency: 20-30 ng/mL (50-75 nmol/L)Sufficiency: 30-100 ng/mL (75-250 nmol/L)Toxicity: >100 ng/mL (>250 nmol/L) Performed By: #### L 501.9520, L506.1001 ####[facility] [address] [place], [address] Radiation Oncology Visiton 0 07-15-2024 Radiation Oncology Visit Normal [facility] Modified Barium Swallow Stud yon 07-14-2024 Modified Barium Swallow Study Normal [facility] Absolute neutrophil countOrd ered By: Franco Pérez on 07-13-2024 Neutrophils (Bld) [#/Vol] 7.0 10*3/uL 2.0-7.7 [facility] Anion gap in Serum or Plasma Ordered By: Franco Pérez on 07-13-2024 Anion gap [Moles/Vol] 13 mmol/L 5-15 [facility] BUN/creatinine ratioOrdered By: Franco Pérez on 07-13-2024 Urea nitrogen/Creatinine [Mass ratio] 26.3 mg/mg High 10-20 [facility] Basophil percentageOrdered B y: Franco Pérez on 07-13-2024 Basophils/100 WBC (Bld) 0.6 % 0-1 [facility] Bilirubin, totalOrdered By: Franco Pérez on 07-13-2024 Bilirubin [Mass/Vol] 1.38 mg/dL High 0.00-1.30 [facility] CBC W/Diff, Automatedon 06-24 Absolute Lymph 0.88 X10 3/uL Normal 0.83-4.51 [facility] Comment on above: Performed By: #### L 501.5200, L500.4050, L100.0100, L501.2300 ####[facility] [address] [place], [address] Absolute Neut 7.0 X10 3/uL Normal 2.0-7.7 [facility] Comment on above: Performed By: #### L 501.5200, L500.4050, L100.0100, L501.2300 ####[facility] [address] [place], [address] Basophils/100 WBC (Bld) 0.6 % Normal 0-1 [facility] Comment on above: Performed By: #### L 501.5200, L500.4050, L100.0100, L501.2300 ####[facility] [address] [place], [address] Eosinophils/100 WBC (Bld) 2.0 % Normal 0-5 [facility] Comment on above: Performed By: #### L 501.5200, L500.4050, L100.0100, L501.2300 ####[facility] [address] [place], [address] Erythrocyte distribution width (RBC) [Ratio] 13.8 % Normal 11.6-14.6 [facility] Comment on above: Performed By: #### L 501.5200, L500.4050, L100.0100, L501.2300 ####[facility] [address] [place], [address] Hematocrit (Bld) [Volume fraction] 44.1 % Normal 40-54 [facility] Comment on above: Performed By: #### L 501.5200, L500.4050, L100.0100, L501.2300 ####[facility] [address] [place], [address] Hemoglobin (Bld) [Mass/Vol] 14.3 g/dL Normal 13.0-16.5 [facility] Comment on above: Performed By: #### L 501.5200, L500.4050, L100.0100, L501.2300 ####[facility] [address] [place], [address] IG% 1.200 High 0.0-0.9 [facility] Comment on above: Result Comment: IG% - Immature Granulocytes (promyelocytes, myelocytes andmetamyelocytes) > 1% indicates that a LEFT SHIFT is Present. Performed By: #### L 501.5200, L500.4050, L100.0100, L501.2300 ####[facility] [address] [place], [address] Lymphocytes/100 WBC (Bld) 10.0 % Low 19-41 [facility] Comment on above: Performed By: #### L 501.5200, L500.4050, L100.0100, L501.2300 ####[facility] [address] [place], [address] MCH (RBC) [Entitic mass] 29.7 pg Normal 27.0-32.0 [facility] Comment on above: Performed By: #### L 501.5200, L500.4050, L100.0100, L501.2300 ####[facility] [address] [place], [address] MCHC (RBC) [Mass/Vol] 32.4 g/dL Normal 32-36 [facility] Comment on above: Performed By: #### L 501.5200, L500.4050, L100.0100, L501.2300 ####[facility] [address] [place], [address] MCV (RBC) [Entitic vol] 91.5 fL Normal 80-94 [facility] Comment on above: Performed By: #### L 501.5200, L500.4050, L100.0100, L501.2300 ####[facility] [address] [place], [address] Monocytes/100 WBC (Bld) 7.0 % Normal 0-10 [facility] Comment on above: Performed By: #### L 501.5200, L500.4050, L100.0100, L501.2300 ####[facility] [address] [place], [address] Neutrophils/100 WBC (Bld) 79.2 % High 47-70 [facility] Comment on above: Performed By: #### L 501.5200, L500.4050, L100.0100, L501.2300 ####[facility] [address] [place], [address] Nucleated RBC (Bld) [#/Vol] 0 10*3/uL Normal 0-5 [facility] Comment on above: Performed By: #### L 501.5200, L500.4050, L100.0100, L501.2300 ####[facility] [address] [place], [address] Platelet mean volume (Bld) [Entitic vol] 11.7 fL Normal 6.2-12.0 [facility] Comment on above: Performed By: #### L 501.5200, L500.4050, L100.0100, L501.2300 ####[facility] [address] [place], [address] Platelets (Bld) [#/Vol] 178 10*3/uL Normal 150-450 [facility] Comment on above: Performed By: #### L 501.5200, L500.4050, L100.0100, L501.2300 ####[facility] [address] [place], [address] RBC (Bld) [#/Vol] 4.82 10*6/uL Normal 4.6-6.2 [facility] Comment on above: Performed By: #### L 501.5200, L500.4050, L100.0100, L501.2300 ####[facility] [address] [place], [address] RDW SD 46.4 fl High 35.1-43.9 [facility] Comment on above: Performed By: #### L 501.5200, L500.4050, L100.0100, L501.2300 ####[facility] [address] [place], [address] WBC (Bld) [#/Vol] 8.8 10*3/uL Normal 4.4-11.0 [facility] Comment on above: Performed By: #### L 501.5200, L500.4050, L100.0100, L501.2300 ####[facility] [address] [place], [address] Carbon dioxide, total [Moles /volume] in Central venous bloodOrdered By: Franco Pérez on 07-13-2024 CO2 [Moles/Vol] 22.6 mmol/L 21.0-32.0 [facility] Chloride assayOrdered By: Kala Pérez on 07-13-2024 Chloride [Moles/Vol] 101 mmol/L 98-108 [facility] Comprehensive Metabolic Prof ilon 07-13-2024 Albumin [Mass/Vol] 3.8 g/dL Normal 3.4-4.8 [facility] Comment on above: Performed By: #### L 501.5200, L500.4050, L100.0100, L501.2300 ####[facility] [address] [place], [address] Albumin/Globulin [Mass ratio] 1.1 {ratio} Normal 0.9-2.4 [facility] Comment on above: Performed By: #### L 501.5200, L500.4050, L100.0100, L501.2300 ####[facility] [address] [place], [address] ALK PHOS 104 U/L Normal 40-129 [facility] Comment on above: Performed By: #### L 501.5200, L500.4050, L100.0100, L501.2300 ####[facility] [address] [place], [address] ALT [Catalytic activity/Vol] 23 U/L Normal <=46 [facility] Comment on above: Performed By: #### L 501.5200, L500.4050, L100.0100, L501.2300 ####[facility] [address] [place], [address] AST [Catalytic activity/Vol] 21 U/L Normal <=37 [facility] Comment on above: Performed By: #### L 501.5200, L500.4050, L100.0100, L501.2300 ####[facility] [address] [place], [address] Bilirubin [Mass/Vol] 1.38 mg/dL High 0.00-1.30 [facility] Comment on above: Performed By: #### L 501.5200, L500.4050, L100.0100, L501.2300 ####[facility] [address] [place], [address] BUN/CRE 26.3 RATIO High 10-20 [facility] Comment on above: Performed By: #### L 501.5200, L500.4050, L100.0100, L501.2300 ####[facility] [address] [place], [address] Calcium [Mass/Vol] 10.2 mg/dL Normal 7.6-11.0 [facility] Comment on above: Performed By: #### L 501.5200, L500.4050, L100.0100, L501.2300 ####[facility] [address] [place], [address] Chloride [Moles/Vol] 101 mmol/L Normal 98-108 [facility] Comment on above: Performed By: #### L 501.5200, L500.4050, L100.0100, L501.2300 ####[facility] [address] [place], [address] CO2 [Moles/Vol] 22.6 mmol/L Normal 21.0-32.0 [facility] Comment on above: Performed By: #### L 501.5200, L500.4050, L100.0100, L501.2300 ####[facility] [address] [place], [address] Creatinine [Mass/Vol] 1.06 mg/dL Normal 0.70-1.20 [facility] Comment on above: Performed By: #### L 501.5200, L500.4050, L100.0100, L501.2300 ####[facility] [address] [place], [address] ECRCL 93.64 ml/min Normal 50-250 [facility] Comment on above: Performed By: #### L 501.5200, L500.4050, L100.0100, L501.2300 ####[facility] [address] [place], [address] GAP 13 Normal 5-15 [facility] Comment on above: Performed By: #### L 501.5200, L500.4050, L100.0100, L501.2300 ####[facility] [address] [place], [address] GFR/1.73 sq M.predicted among non-blacks MDRD (S/P/Bld) [Vol rate/Area] 75 mL/min/{1.73_m2} Normal >60 [facility] Comment on above: Result Comment: mL/m in/1.73m2 CKD-EPI Creatinine Equation (2020) Performed By: #### L 501.5200, L500.4050, L100.0100, L501.2300 ####[facility] [address] [place], [address] Globulin (S) [Mass/Vol] 3.5 g/dL Normal 2.2-4.2 [facility] Comment on above: Performed By: #### L 501.5200, L500.4050, L100.0100, L501.2300 ####[facility] [address] [place], [address] Glucose [Mass/Vol] 203 mg/dL High 70-99 [facility] Comment on above: Performed By: #### L 501.5200, L500.4050, L100.0100, L501.2300 ####[facility] [address] [place], [address] Potassium [Moles/Vol] 4.1 mmol/L Normal 3.3-5.1 [facility] Comment on above: Performed By: #### L 501.5200, L500.4050, L100.0100, L501.2300 ####[facility] [address] [place], [address] Sodium [Moles/Vol] 137 mmol/L Normal 133-145 [facility] Comment on above: Performed By: #### L 501.5200, L500.4050, L100.0100, L501.2300 ####[facility] [address] [place], [address] T PROT 7.3 g/dL Normal 5.9-8.4 [facility] Comment on above: Performed By: #### L 501.5200, L500.4050, L100.0100, L501.2300 ####[facility] [address] [place], [address] Urea nitrogen [Mass/Vol] 28 mg/dL High 4-19 [facility] Comment on above: Performed By: #### L 501.5200, L500.4050, L100.0100, L501.2300 ####[facility] [address] [place], [address] Eosinophil percentageOrdered By: Franco Pérez on 07-13-2024 Eosinophils/100 WBC (Bld) 2.0 % 0-5 [facility] Erythrocyte distribution wid th (RBC) [Ratio]Ordered By: Franco Pérez on 07-13-2024 Erythrocyte distribution width (RBC) [Entitic vol] 46.4 fL High 35.1-43.9 [facility] Erythrocyte distribution wid th ratioOrdered By: Franco Pérez on 07-13-2024 Erythrocyte distribution width (RBC) [Ratio] 13.8 % 11.6-14.6 [facility] Estimation of creatinine say aranceOrdered By: Franco Pérez on 07-13-2024 Estimated Creatinine Clearance Calc 93.64 ml/min 50-250 [facility] GFR/1.73 sq M.predicted carli g non-blacks MDRD (S/P/Bld) [Vol rate/Area]Ordered By: Franco Anderson on 07-13-2024 Estimated GFR (MDRD) Non-Af Amer 75 >60 [facility] Comment on above: mL/min/1.73m2 CKD-EP I Creatinine Equation (2020) Hematocrit Auto (Bld) [Volum e fraction]Ordered By: Franco Anderson on 07-13-2024 Hematocrit (Bld) [Volume fraction] 44.1 % 40-54 [facility] Hemoglobin measurementOrdere d By: Franco Anderson on 07-13-2024 Hemoglobin (Bld) [Mass/Vol] 14.3 g/dL 13.0-16.5 [facility] Immature granulocytes/100 WB C Auto (Bld)Ordered By: Franco Anderson on 07-13-2024 Immature granulocytes/100 WBC (Bld) 1.200 % High 0.0-0.9 [facility] Comment on above: IG% - Immature Granu locytes (promyelocytes, myelocytes and metamyelocytes) > 1% indicates that a LEFT SHIFT is Present. Laboratory - Chemistry and C hemistry - challengeOrdered By: Franco Justin on 07-13-2024 AST [Catalytic activity/Vol] 21 U/L <38 [facility] Lymphocytes Auto (Unsp spec) [#/Vol]Ordered By: [facility] on 07-13-2024 Lymphocytes (Bld) [#/Vol] 0.88 10*3/uL 0.83-4.51 [facility] Lymphocytes/100 WBC Auto (Un sp spec)Ordered By: [facility] on 07-13-2024 Lymphocytes/100 WBC (Bld) 10.0 % Low 19-41 [facility] MCV (mean corpuscular volume ) determinationOrdered By: [facility] on 07-13-2024 MCV (RBC) [Entitic vol] 91.5 fL 80-94 [facility] Magnesiumon 07-13-2024 Magnesium [Mass/Vol] 1.8 mg/dL Normal 1.5-2.2 [facility] Comment on above: Performed By: #### L 501.5200, L500.4050, L100.0100, L501.2300 ####[facility] [address] [place], [place], [address] Magnesium (Unsp spec) [Mass/ Vol]Ordered By: Franco Pérez on 07-13-2024 Magnesium [Mass/Vol] 1.8 mg/dL 1.5-2.2 [facility] Mean corpuscular hemoglobin (MCH) determinationOrdered By: Franco Pérez on 07-13-2024 MCH (RBC) [Entitic mass] 29.7 pg 27.0-32.0 [facility] Mean corpuscular hemoglobin concentration (MCHC) determinationOrdered By: Franco Pérez on 07-13-2024 MCHC (RBC) [Mass/Vol] 32.4 g/dL 32-36 [facility] Mean platelet volume determi nationOrdered By: Franco Pérez on 07-13-2024 Platelet mean volume (Bld) [Entitic vol] 11.7 fL 6.2-12.0 [facility] Monocyte percentageOrdered B y: Franco Pérez on 07-13-2024 Monocytes/100 WBC (Bld) 7.0 % 0-10 [facility] Neutrophil percentageOrdered By: Franco Pérez on 07-13-2024 Neutrophils/100 WBC (Bld) 79.2 % High 47-70 [facility] Nucleated red blood cell per centageOrdered By: Franco Pérez on 07-13-2024 Nucleated RBC/100 WBC (Bld) [Ratio] 0 % 0-5 [facility] Oncology Visit Reporton 06-24 Oncology Visit Report Normal [facility] Phosphoruson 07-13-2024 Phosphate [Mass/Vol] 3.3 mg/dL Normal 2.7-4.5 [facility] Comment on above: Performed By: #### L 501.5200, L500.4050, L100.0100, L501.2300 ####[facility] [address] [facility] [place], [address] Platelet countOrdered By: Kala Pérez on 07-13-2024 Platelets (Bld) [#/Vol] 178 10*3/uL 150-450 [facility] Potassium (Unsp spec) [Mass/ Vol]Ordered By: Franco Pérez on 07-13-2024 Potassium [Moles/Vol] 4.1 mmol/L 3.3-5.1 [facility] RBC Auto (Bld) [#/Vol]Ordere d By: Franco Pérez on 07-13-2024 RBC (Bld) [#/Vol] 4.82 10*6/uL 4.6-6.2 [facility] SP/HP.SP.Suzan 07-13-2024 SP/HP.SP.EV Normal [facility] Serum creatinine measurement (mass/volume)Ordered By: Franco Pérez on 07-13-2024 Creatinine [Mass/Vol] 1.06 mg/dL 0.70-1.20 [facility] Serum globulin measurementOr dered By: Franco Pérez on 07-13-2024 Globulin (S) [Mass/Vol] 3.5 g/dL 2.2-4.2 [facility] Serum glucose measurement (m ass/volume)Ordered By: Franco Pérez on 07-13-2024 Glucose [Mass/Vol] 203 mg/dL High 70-99 [facility] Serum or plasma alanine cabral otransferase (ALT) measurementOrdered By: Franco Pérez on 07-13-2024 ALT [Catalytic activity/Vol] 23 U/L <47 [facility] Serum or plasma albumin blaine urement (mass/volume)Ordered By: Franco Pérez on 07-13-2024 Albumin [Mass/Vol] 3.8 g/dL 3.4-4.8 [facility] Serum or plasma albumin/glob ulin mass ratioOrdered By: Franco Pérez on 07-13-2024 Albumin/Globulin [Mass ratio] 1.1 {ratio} 0.9-2.4 [facility] Serum or plasma alkaline zee sphatase measurementOrdered By: Franco Pérez on 07-13-2024 ALP [Catalytic activity/Vol] 104 U/L 40-129 [facility] Serum or plasma calcium blaine urement (mass/volume)Ordered By: Franco Pérez on 07-13-2024 Calcium [Mass/Vol] 10.2 mg/dL 7.6-11.0 [facility] Serum or plasma urea nitroge n measurement (mass/volume)Ordered By: Franco Pérez on 07-13-2024 Urea nitrogen [Mass/Vol] 28 mg/dL High 4- [facility] Serum phosphorus measurement Ordered By: Franco Pérez on 07-13-2024 Phosphorus Level 3.3 mg/dL 2.7-4.5 [facility] Sodium levelOrdered By: Jonathon Pérez on 07-13-2024 Sodium [Moles/Vol] 137 mmol/L 133-145 [facility] Surgery Visit Reporton 07-13 Surgery Visit Report Normal [facility] Total proteinOrdered By: Faheem Pérez on 07-13-2024 Protein [Mass/Vol] 7.3 g/dL 5.9-8.4 [facility] White blood cell (WBC) count Ordered By: Franco Pérez on 07-13-2024 WBC (Bld) [#/Vol] 8.8 10*3/uL 4.4-11.0 [facility] CXR for Line Placementon CXR for Line Placement Normal [facility] Discharge Instructionon 06-23 Discharge Instruction Normal [facility] MR/POSTOP.ANEon 07-09-2024 MR/POSTOP.ANE Normal [facility] MR/[id number] 07-09-2024 MR/POSTOPAN2 Normal [facility] Operative Reporton Operative Report Normal [facility] Radiation Oncology Visiton 0 07-08-2024 Radiation Oncology Visit Normal [facility] Absolute neutrophil countOrd ered By: Ashly Laguerre on 07-06-2024 Neutrophils (Bld) [#/Vol] 6.2 10*3/uL 2.0-7.7 [facility] Anion gap in Serum or Plasma Ordered By: Ashly Laguerre on 07-06-2024 Anion gap [Moles/Vol] 12 mmol/L 5-15 [facility] BUN/creatinine ratioOrdered By: Ashly Laguerre on 07-06-2024 Urea nitrogen/Creatinine [Mass ratio] 15.2 mg/mg 10-20 [facility] Basophil percentageOrdered B y: Ashly Laguerre on 07-06-2024 Basophils/100 WBC (Bld) 0.8 % 0-1 [facility] Bilirubin, totalOrdered By: Ashly Laguerre on 07-06-2024 Bilirubin [Mass/Vol] 1.06 mg/dL 0.00-1.30 [facility] CBC W/Diff, Automatedon 06-23 Absolute Lymph 1.11 X10 3/uL Normal 0.83-4.51 [facility] Comment on above: Performed By: #### L 100.0100, L500.4050 ####[facility] [address] [place], [address] Absolute Neut 6.2 X10 3/uL Normal 2.0-7.7 [facility] Comment on above: Performed By: #### L 100.0100, L500.4050 ####[facility] [address] [place], [address] Basophils/100 WBC (Bld) 0.8 % Normal 0-1 [facility] Comment on above: Performed By: #### L 100.0100, L500.4050 ####[facility] [address] [place], [address] Eosinophils/100 WBC (Bld) 1.5 % Normal 0-5 [facility] Comment on above: Performed By: #### L 100.0100, L500.4050 ####[facility] [address] [place], [address] Erythrocyte distribution width (RBC) [Ratio] 14.1 % Normal 11.6-14.6 [facility] Comment on above: Performed By: #### L 100.0100, L500.4050 ####[facility] [address] [place], [address] Hematocrit (Bld) [Volume fraction] 43.2 % Normal 40-54 [facility] Comment on above: Performed By: #### L 100.0100, L500.4050 ####[facility] [address] [place], [address] Hemoglobin (Bld) [Mass/Vol] 14.1 g/dL Normal 13.0-16.5 [facility] Comment on above: Performed By: #### L 100.0100, L500.4050 ####[facility] [address] [place], [address] IG% 0.700 Normal 0.0-0.9 [facility] Comment on above: Result Comment: IG% - Immature Granulocytes (promyelocytes, myelocytes andmetamyelocytes) > 1% indicates that a LEFT SHIFT is Present. Performed By: #### L 100.0100, L500.4050 ####[facility] [address] [place], [address] Lymphocytes/100 WBC (Bld) 13.1 % Low 19-41 [facility] Comment on above: Performed By: #### L 100.0100, L500.4050 ####[facility] [address] [place], [address] MCH (RBC) [Entitic mass] 29.7 pg Normal 27.0-32.0 [facility] Comment on above: Performed By: #### L 100.0100, L500.4050 ####[facility] [address] [place], [address] MCHC (RBC) [Mass/Vol] 32.6 g/dL Normal 32-36 [facility] Comment on above: Performed By: #### L 100.0100, L500.4050 ####[facility] [address] [place], [address] MCV (RBC) [Entitic vol] 91.1 fL Normal 80-94 [facility] Comment on above: Performed By: #### L 100.0100, L500.4050 ####[facility] [address] [place], [address] Monocytes/100 WBC (Bld) 10.4 % High 0-10 [facility] Comment on above: Performed By: #### L 100.0100, L500.4050 ####[facility] [address] [place], [address] Neutrophils/100 WBC (Bld) 73.5 % High 47-70 [facility] Comment on above: Performed By: #### L 100.0100, L500.4050 ####[facility] [address] [place], [address] Nucleated RBC (Bld) [#/Vol] 0 10*3/uL Normal 0-5 [facility] Comment on above: Performed By: #### L 100.0100, L500.4050 ####[facility] [address] [place], [address] Platelet mean volume (Bld) [Entitic vol] 11.8 fL Normal 6.2-12.0 [facility] Comment on above: Performed By: #### L 100.0100, L500.4050 ####[facility] [address] [place], [address] Platelets (Bld) [#/Vol] 162 10*3/uL Normal 150-450 [facility] Comment on above: Performed By: #### L 100.0100, L500.4050 ####[facility] [address] [place], [address] RBC (Bld) [#/Vol] 4.74 10*6/uL Normal 4.6-6.2 [facility] Comment on above: Performed By: #### L 100.0100, L500.4050 ####[facility] [address] [place], [address] RDW SD 47.2 fl High 35.1-43.9 [facility] Comment on above: Performed By: #### L 100.0100, L500.4050 ####[facility] [address] [place], [address] WBC (Bld) [#/Vol] 8.5 10*3/uL Normal 4.4-11.0 [facility] Comment on above: Performed By: #### L 100.0100, L500.4050 ####[facility] [address] [place], [address] Absolute Neut Normal 2.0-7.7 [facility] Comment on above: Result Comment: @DUP LICATE ORDER Performed By: #### L 501.5200, L501.2300, L100.0100 ####[facility] [address] [place], [address] HCT Normal 40-54 [facility] Comment on above: Result Comment: @DUP LICATE ORDER Performed By: #### L 501.5200, L501.2300, L100.0100 ####[facility] [address] [place], [address] HGB Normal 13.0-16.5 [facility] Comment on above: Result Comment: @DUP LICATE ORDER Performed By: #### L 501.5200, L501.2300, L100.0100 ####[facility] [address] [place], [address] MCH Normal 27.0-32.0 [facility] Comment on above: Result Comment: @DUP LICATE ORDER Performed By: #### L 501.5200, L501.2300, L100.0100 ####[facility] [address] [place], [address] MCHC Normal 32-36 [facility] Comment on above: Result Comment: @DUP LICATE ORDER Performed By: #### L 501.5200, L501.2300, L100.0100 ####[facility] [address] [place], [address] MCV Normal 80-94 [facility] Comment on above: Result Comment: @DUP LICATE ORDER Performed By: #### L 501.5200, L501.2300, L100.0100 ####[facility] [address] [place], [address] NEUT% Normal 47-70 [facility] Comment on above: Result Comment: @DUP LICATE ORDER Performed By: #### L 501.5200, L501.2300, L100.0100 ####[facility] [address] [place], [address] PLT Normal 150-450 [facility] Comment on above: Result Comment: @DUP LICATE ORDER Performed By: #### L 501.5200, L501.2300, L100.0100 ####[facility] [address] [place], [address] RBC Normal 4.6-6.2 [facility] Comment on above: Result Comment: @DUP LICATE ORDER Performed By: #### L 501.5200, L501.2300, L100.0100 ####[facility] [address] [place], [address] RDW CV Normal 11.6-14.6 [facility] Comment on above: Result Comment: @DUP LICATE ORDER Performed By: #### L 501.5200, L501.2300, L100.0100 ####[facility] [address] [place], [address] RDW SD Normal 35.1-43.9 [facility] Comment on above: Result Comment: @DUP LICATE ORDER Performed By: #### L 501.5200, L501.2300, L100.0100 ####[facility] [address] [place], [address] WBC Normal 4.4-11.0 [facility] Comment on above: Result Comment: @DUP LICATE ORDER Performed By: #### L 501.5200, L501.2300, L100.0100 ####[facility] [address] [place], [address] CXR for Line Placementon CXR for Line Placement Normal [facility] Carbon dioxide, total [Moles /volume] in Central venous bloodOrdered By: Ashly Shade on 07-06-2024 CO2 [Moles/Vol] 23.2 mmol/L 21.0-32.0 [facility] Chloride assayOrdered By: Ty ra Shade on 07-06-2024 Chloride [Moles/Vol] 103 mmol/L 98-108 [facility] Comprehensive Metabolic Prof ilon 07-06-2024 Albumin [Mass/Vol] 4.0 g/dL Normal 3.4-4.8 [facility] Comment on above: Performed By: #### L 100.0100, L500.4050 ####[facility] [address] [place], [address] Albumin/Globulin [Mass ratio] 1.2 {ratio} Normal 0.9-2.4 [facility] Comment on above: Performed By: #### L 100.0100, L500.4050 ####[facility] [address] [place], [address] ALK PHOS 120 U/L Normal 40-129 [facility] Comment on above: Performed By: #### L 100.0100, L500.4050 ####[facility] [address] [place], [address] ALT [Catalytic activity/Vol] 21 U/L Normal <=46 [facility] Comment on above: Performed By: #### L 100.0100, L500.4050 ####[facility] [address] [place], [address] AST [Catalytic activity/Vol] 22 U/L Normal <=37 [facility] Comment on above: Performed By: #### L 100.0100, L500.4050 ####[facility] [address] [place], [address] Bilirubin [Mass/Vol] 1.06 mg/dL Normal 0.00-1.30 [facility] Comment on above: Performed By: #### L 100.0100, L500.4050 ####[facility] [address] [place], [address] BUN/CRE 15.2 RATIO Normal 10-20 [facility] Comment on above: Performed By: #### L 100.0100, L500.4050 ####[facility] [address] [place], [address] Calcium [Mass/Vol] 9.9 mg/dL Normal 7.6-11.0 [facility] Comment on above: Performed By: #### L 100.0100, L500.4050 ####[facility] [address] [place], [address] Chloride [Moles/Vol] 103 mmol/L Normal 98-108 [facility] Comment on above: Performed By: #### L 100.0100, L500.4050 ####[facility] [address] [place], [address] CO2 [Moles/Vol] 23.2 mmol/L Normal 21.0-32.0 [facility] Comment on above: Performed By: #### L 100.0100, L500.4050 ####[facility] [address] [place], [address] Creatinine [Mass/Vol] 1.28 mg/dL High 0.70-1.20 [facility] Comment on above: Performed By: #### L 100.0100, L500.4050 ####[facility] [address] [place], [address] ECRCL 77.55 ml/min Normal 50-250 [facility] Comment on above: Performed By: #### L 100.0100, L500.4050 ####[facility] [address] [place], [address] GAP 12 Normal 5-15 [facility] Comment on above: Performed By: #### L 100.0100, L500.4050 ####[facility] [address] [place], [address] GFR/1.73 sq M.predicted among non-blacks MDRD (S/P/Bld) [Vol rate/Area] 59 mL/min/{1.73_m2} Low >60 [facility] Comment on above: Result Comment: mL/m in/1.73m2 CKD-EPI Creatinine Equation (2020) Performed By: #### L 100.0100, L500.4050 ####[facility] [address] [place], [address] Globulin (S) [Mass/Vol] 3.3 g/dL Normal 2.2-4.2 [facility] Comment on above: Performed By: #### L 100.0100, L500.4050 ####[facility] [address] [place], [address] Glucose [Mass/Vol] 214 mg/dL High 70-99 [facility] Comment on above: Performed By: #### L 100.0100, L500.4050 ####[facility] [address] [place], [address] Potassium [Moles/Vol] 4.3 mmol/L Normal 3.3-5.1 [facility] Comment on above: Performed By: #### L 100.0100, L500.4050 ####[facility] [address] [place], [address] Sodium [Moles/Vol] 138 mmol/L Normal 133-145 [facility] Comment on above: Performed By: #### L 100.0100, L500.4050 ####[facility] [address] [place], [address] T PROT 7.4 g/dL Normal 5.9-8.4 [facility] Comment on above: Performed By: #### L 100.0100, L500.4050 ####[facility] [address] [place], [address] Urea nitrogen [Mass/Vol] 20 mg/dL High 4-19 [facility] Comment on above: Performed By: #### L 100.0100, L500.4050 ####[facility] [address] [place], [address] Eosinophil percentageOrdered By: Ashly Laguerre on 07-06-2024 Eosinophils/100 WBC (Bld) 1.5 % 0-5 [facility] Erythrocyte distribution wid th (RBC) [Ratio]Ordered By: Ashly Laguerre on 07-06-2024 Erythrocyte distribution width (RBC) [Entitic vol] 47.2 fL High 35.1-43.9 [facility] Erythrocyte distribution wid th ratioOrdered By: Ashly Laguerre on 07-06-2024 Erythrocyte distribution width (RBC) [Ratio] 14.1 % 11.6-14.6 [facility] Estimation of creatinine say aranceOrdered By: Ashly Laguerre on 07-06-2024 Estimated Creatinine Clearance Calc 77.55 ml/min 50-250 [facility] GFR/1.73 sq M.predicted carli g non-blacks MDRD (S/P/Bld) [Vol rate/Area]Ordered By: Ashly Laguerre on 07-06-2024 Estimated GFR (MDRD) Non-Af Amer 59 Low >60 [facility] Comment on above: mL/min/1.73m2 CKD-EP I Creatinine Equation (2020) Hematocrit Auto (Bld) [Volum e fraction]Ordered By: Ashly Laguerre on 07-06-2024 Hematocrit (Bld) [Volume fraction] 43.2 % 40-54 [facility] Hemoglobin measurementOrdere d By: Ashly Laguerre on 07-06-2024 Hemoglobin (Bld) [Mass/Vol] 14.1 g/dL 13.0-16.5 [facility] Immature granulocytes/100 WB C Auto (Bld)Ordered By: Ashly Laguerre on 07-06-2024 Immature granulocytes/100 WBC (Bld) 0.700 % 0.0-0.9 [facility] Comment on above: IG% - Immature Granu locytes (promyelocytes, myelocytes and metamyelocytes) > 1% indicates that a LEFT SHIFT is Present. Laboratory - Chemistry and C hemistry - challengeOrdered By: Ashly Laguerre on 07-06-2024 AST [Catalytic activity/Vol] 22 U/L <38 [facility] Lymphocytes Auto (Unsp spec) [#/Vol]Ordered By: Ashly Laguerre on 07-06-2024 Lymphocytes (Bld) [#/Vol] 1.11 10*3/uL 0.83-4.51 [facility] Lymphocytes/100 WBC Auto (Un sp spec)Ordered By: Ashly Laguerre on 07-06-2024 Lymphocytes/100 WBC (Bld) 13.1 % Low 19-41 [facility] MCV (mean corpuscular volume ) determinationOrdered By: Ashly Laguerre on 07-06-2024 MCV (RBC) [Entitic vol] 91.1 fL 80-94 [facility] Magnesiumon 07-06-2024 Magnesium [Mass/Vol] 1.9 mg/dL Normal 1.5-2.2 [facility] Comment on above: Order Comment: ADD O N FROM TODAYS LAB - THANKS Performed By: #### L 501.5200, L501.2300, L100.0100 ####[facility] [address] [place], [address] Magnesium (Unsp spec) [Mass/ Vol]Ordered By: Franco Pérez on 07-06-2024 Magnesium [Mass/Vol] 1.9 mg/dL 1.5-2.2 [facility] Mean corpuscular hemoglobin (MCH) determinationOrdered By: Ashly Laguerre on 07-06-2024 MCH (RBC) [Entitic mass] 29.7 pg 27.0-32.0 [facility] Mean corpuscular hemoglobin concentration (MCHC) determinationOrdered By: Ashly VallesShade on 07-06-2024 MCHC (RBC) [Mass/Vol] 32.6 g/dL 32-36 [facility] Mean platelet volume determi nationOrdered By: Ashly VallesShade on 07-06-2024 Platelet mean volume (Bld) [Entitic vol] 11.8 fL 6.2-12.0 [facility] Monocyte percentageOrdered B y: Ashly Laguerre on 07-06-2024 Monocytes/100 WBC (Bld) 10.4 % High 0-10 [facility] Neutrophil percentageOrdered By: Ashly Laguerre on 07-06-2024 Neutrophils/100 WBC (Bld) 73.5 % High 47-70 [facility] Nucleated red blood cell per centageOrdered By: Ashly Laguerre on 07-06-2024 Nucleated RBC/100 WBC (Bld) [Ratio] 0 % 0-5 [facility] Oncology Visit Reporton 06-23 Oncology Visit Report Normal [facility] Phosphoruson 07-06-2024 Phosphate [Mass/Vol] 3.0 mg/dL Normal 2.7-4.5 [facility] Comment on above: Order Comment: ADD O N FROM TODAYS LAB - THANKS Performed By: #### L 501.5200, L501.2300, L100.0100 ####[facility] [address] [place], [address] Platelet countOrdered By: Ty ra Laguerre on 07-06-2024 Platelets (Bld) [#/Vol] 162 10*3/uL 150-450 [facility] Potassium (Unsp spec) [Mass/ Vol]Ordered By: Ashly Laguerre on 07-06-2024 Potassium [Moles/Vol] 4.3 mmol/L 3.3-5.1 [facility] RBC Auto (Bld) [#/Vol]Ordere d By: Ashly VallesShade on 07-06-2024 RBC (Bld) [#/Vol] 4.74 10*6/uL 4.6-6.2 [facility] Serum creatinine measurement (mass/volume)Ordered By: Ashly Laguerre on 07-06-2024 Creatinine [Mass/Vol] 1.28 mg/dL High 0.70-1.20 [facility] Serum globulin measurementOr dered By: Ashly Laguerre on 07-06-2024 Globulin (S) [Mass/Vol] 3.3 g/dL 2.2-4.2 [facility] Serum glucose measurement (m ass/volume)Ordered By: Ashly Laguerre on 07-06-2024 Glucose [Mass/Vol] 214 mg/dL High 70-99 [facility] Serum or plasma alanine cabral otransferase (ALT) measurementOrdered By: Ashly Laguerre on 07-06-2024 ALT [Catalytic activity/Vol] 21 U/L <47 [facility] Serum or plasma albumin blaine urement (mass/volume)Ordered By: Ashly Laguerre on 07-06-2024 Albumin [Mass/Vol] 4.0 g/dL 3.4-4.8 [facility] Serum or plasma albumin/glob ulin mass ratioOrdered By: Ashly Laguerre on 07-06-2024 Albumin/Globulin [Mass ratio] 1.2 {ratio} 0.9-2.4 [facility] Serum or plasma alkaline zee sphatase measurementOrdered By: Ashly Laguerre on 07-06-2024 ALP [Catalytic activity/Vol] 120 U/L 40-129 [facility] Serum or plasma calcium blaine urement (mass/volume)Ordered By: Ashly Laguerre on 07-06-2024 Calcium [Mass/Vol] 9.9 mg/dL 7.6-11.0 [facility] Serum or plasma urea nitroge n measurement (mass/volume)Ordered By: Ashly Laguerre on 07-06-2024 Urea nitrogen [Mass/Vol] 20 mg/dL High 4-19 [facility] Serum phosphorus measurement Ordered By: Franco Pérez on 07-06-2024 Phosphorus Level 3.0 mg/dL 2.7-4.5 [facility] Sodium levelOrdered By: Ashly Laguerre on 07-06-2024 Sodium [Moles/Vol] 138 mmol/L 133-145 [facility] Total proteinOrdered By: Sarai Laguerre on 07-06-2024 Protein [Mass/Vol] 7.4 g/dL 5.9-8.4 [facility] White blood cell (WBC) count Ordered By: Ashly Laguerre on 07-06-2024 WBC (Bld) [#/Vol] 8.5 10*3/uL 4.4-11.0 [facility] 12 Lead EKGon 07-02-2024 12 Lead EKG Normal [facility] CXR for Line Placementon CXR for Line Placement Normal [facility] Discharge Instructionon 06-23 Discharge Instruction Normal [facility] MR/POSTOP.ANEon 07-02-2024 MR/POSTOP.ANE Normal [facility] MR/[id number] 07-02-2024 MR/POSTOPAN2 Normal [facility] Operative Reporton Operative Report Normal [facility] Oncology Visit Reporton Oncology Visit Report Normal [facility] MR/PAT.ANEon 06-23-2024 MR/PAT.ANE Normal [facility] CREATININE FINGERSTICKon Creatinine [Mass/Vol] 1.1 mg/dL Normal 0.70-1.30 [facility] Comment on above: Performed By: #### L 9100.0200 ####[facility] [id number] [place], [place], [id number] EGFR WB > 60.0000 Normal >60 [facility] Comment on above: Performed By: #### L 9100.0200 ####[facility] [id number] [address] [place], [place], [address] Creatinine measurement at dsideOrdered By: Cipriano Layne on 06-19-2024 Creatinine [Mass/Vol] 1.1 mg/dL 0.70-1.30 [facility] EGFROrdered By: Cipriano delgado on 06-19-2024 Bedside Estimated GFR (eGFR) > 60.0000 mL/min >60 [facility] GFR/1.73 sq M.predicted among non-blacks MDRD (S/P/Bld) [Vol rate/Area] mL/min/{1.73_m2} >60 [facility] Progress Noteson 06-11-2024 Auto Vinyl Top Installer Authentication Interface Message Text Teaching Physician Note: I saw and evaluated the patient. I personally obtained the jennings and critical portions of the history and physical exam. I reviewed the resident's documentation and discussed the patient with the resident. I agree with the resident's medical decision making as documented in the resident's note. Franco Sanchez DMD Normal [facility] Progress Noteson 06-05-2024 Auto Vinyl Top Installer Authentication Interface Message Text Teaching Physician Note: I saw and evaluated the patient. I personally obtained the jennings and critical portions of the history and physical exam. I reviewed the resident's documentation and discussed the patient with the resident. I agree with the resident's medical decision making as documented in the resident's note. Franco Sanchez DMD Normal [facility] Progress Noteson 06-04-2024 Auto Vinyl Top Installer Authentication Interface Message Text OMFS PATIENT VISIT CHIEF COMPLAINT: Toothache HISTORY OF PRESENT ILLNESS: Pt is a 73yoM, PMH remarkable for [place] tumor, WALE, oropharyngeal SCC, hx of tobacco use, DM2, hx of PE (20mg xarelto 1x/day pt reports their director retirement gave them clearance for a 5day drug holiday for their xarelto for dental surgery and pt is going to have a copy of that clearance letter faxed to [facility] referred to [facility] clinic for full mouth extractions prior to [...] PE (20mg xarelto 1x/day pt reports their director retirement gave them clearance for a 5day drug holiday for their xarelto for dental surgery and pt is going to have a copy of that clearance letter faxed to [facility]), referred to [facility] clinic for 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 Pt requires extraction of remaining dentition, alveoplasty, and removal of mandibular joaquim due to chronic periodontitis and prior to chemo/radiation tx. PLAN: Our plan is to extract all remaining dentition, perform alveoplasty, and removal of mandibular joaquim at next appt. Delbert Molina, DMD Normal [facility] Auto Vinyl Top Installer Authentication Interface Message Text Normal [facility] Surgery Visit Reporton 06-03 Surgery Visit Report Normal [facility] Oncology Visit Reporton 05-23 Oncology Visit Report Normal [facility] Telephone Encounteron 2024 Auto Vinyl Top Installer Authentication Interface Message Text Spoke with patient, who needs to get back in with oral surgery for extractions before cancer treatment. Reached out to schedulers, who scheduled patient for 06/04. Cindy Newell RN Normal [facility] Auto Vinyl Top Installer Authentication Interface Message Text Hi Dr. Packer [...] Phone numbers Thank you, Danielle Normal [facility] Addendum Noteon 05-27-2024 Auto Vinyl Top Installer Authentication Interface Message Text Addended by: CINDY NEWELL on: 05/27/2024 11:50 AM Modules accepted: Orders Normal [facility] Radiation Oncology Visiton 0 05-26-2024 Radiation Oncology Visit Normal [facility] Telephone Encounteron 2024 Auto Vinyl Top Installer Authentication Interface Message Text PET scan report faxed to [place]. Cindy Newell RN Normal [facility] Telephone Encounteron 2024 Auto Vinyl Top Installer Authentication Interface Message Text Brief ENT Telephone Note Called patient to discuss recent PET results (05/22/24), which showed IMPRESSION: 1. Hypermetabolic central base of tongue mass consistent with biopsy-proven squamous cell carcinoma. 2. Hypermetabolic right cervical lymphadenopathies as described above, consistent with regional metastatic disease. 3. No metabolic evidence of distant metastatic disease. Plan for REMOTE SENSING TECHNOLOGIST as previously planned. All questions answered and pt verbalized understanding of the plan. Simon Packer MD Otolaryngology - Head and Neck Surgery [facility] Pager: [phone] Normal [facility] GLUCOSE, FINGERSTICK-IN OFFI CEon 05-22-2024 Glucose [Mass/Vol] 197 mg/dL High 74-109 [facility] Comment on above: Performed By: #### [id number] ####NURSING GLUCOSE [id number] [facility] [place], [address] PET SKULL TO THIGH INITIALon 05-22-2024 PET [...] distant metastatic disease. MACRO: None Normal [facility] Progress Noteson 05-22-2024 Auto Vinyl Top Installer Authentication Interface Message Text . Normal The [employer] Interface Message Text ----- Wednesday, May 22, 2024 at 4:22:24 PM ----- ----- Provider: [id number] - Resident Cabrera -- Clinic: [place] ----- INITIAL/COMPREHENSIVE EXAM Patient presents for an [...] ----- Provider: Graciela Weems DDS -- Clinic: [place] ----- Normal [facility] Tumor Board Noteon Auto Vinyl Top Installer Authentication Interface Message Text Cancer Type: General [...] but is not scheduled. Tentative stage is [id number]. Surgical options include surgery to resect primary [...] and review of the literature. Normal [facility] Telephone Encounteron 2024 Auto Vinyl Top Installer Authentication Interface Message Text Reports printed individually and faxed, notified Anila. Will also send PET report after 05/22/24. Cindy Newell RN Normal [facility] Progress Noteson 05-13-2024 Auto Vinyl Top Installer Authentication Interface Message Text Documentation: Mode: In [...] sandwich Snack: none D: roast beef gyro, chinese fries Snack: none Beverages: water (60-80+ oz), coffee (3 pots) Shopping and cooking: self Dining out: 3-4 Days a week. Household size: 2 Food Assistance: None Adequate food supply and adequate cooking and storing equipment: all Social History: Substance use: none Smoking: none Alcohol: none Physical Activity: Aerobic (treadmill/recumbent bike) Frequency: 20-25 min Duration: 2-3x/week Nutrition Focused Physical Exam: Muscle loss: [place] region: well defined Clavicle region: not visible/not prominent Scapula region: no depressions Hand: muscle bulges Anterior thigh: well rounded Posterior calf: well developed Fat loss: Orbital region: bulged fat pads Tricep/bicep region: ample fat tissue Rib/back region: chest full/ribs do not show Edema: none Estimated Needs: 0598-7604 kcal/d 30-35 kcal/kg Adj BW 131-152 g pro/d 1.3-1.5 g pro/kg Adj BW 6615-9281 mL/d fluid Assessment for Malnutrition: Not at [...] tx concurrent chemoradiation, closer to home in [place]. Pt reports good appetite and eating well throughout the day. Mostly drinking water and coffee. Denies any pain or difficulties swallowing, taste changes, or ope (more content not included)... Normal [facility] Auto Vinyl Top Installer Authentication Interface Message Text Consent signed by patient for baseline NavDx blood draw. Attempted on L hand with no success. Jeannette ARTEAGA in to see patient, able to draw from EMA with butterfly needle. Will be sent today via [facility] to [facility]. Will repeat after treatment. Cindy Newell RN Normal [facility] Auto Vinyl Top Installer Authentication Interface Message Text OTOLARYNGOLOGY - HEAD AND NECK SURGERY CLINIC NOTE CHIEF COMPLAINT: Chief Complaint Patient presents with Post-op Follow-up Tongue biopsy HPI: Robert Ron is a 73 year old male with PMH significant for COPD, WALE on CPAP, hx of PE (2019) hx of left parotidectomy about 10 yrs (Dr. Dubois) who presents today, 05/13/2024, at [facility] for follow up regarding right neck [...] LNP, pres. free, 50 mcg/0.5 mL dose (NLC=989) 01/24/2023, 01/21/2024 Influenza, injectable, high dose seasonal, trivalent, preservative free (AQR=344) 12/19/2016 Influenza, injectable, quadrivalent, preservative (MRF=622) 12/22/2020, 01/03/2023 Influenza, injectable, trivalent, preservative (UIP=116) 01/07/2024 Influenza, novel [id number], injectable, preservative-free (HMT=319) 02/03/2009 Moderna Monovalent (12+ yrs) COVID-19 vaccine, mRNA, spike protein, LNP, PF, 100 mcg/0.5 mL (HAH=378) 06/24/2020, 07/22/2020 Pneumococcal conjugate 20 valent (PCV20), polysaccharide [id number] conjugate, adjuvant, PF (PDA=769) 01/21/2024 Respiratory syncytial virus (RSV), vaccine, recombinant, protein subunit RSV prefusion F, adjuvant reconstituted, 0.5 mL, preservative free (PSK=177) 01/24/2023 Zoster Recombinant (RZV,Shingles) (WSP=541) 08/20/2019 PHYSICAL EXAM: Vital Signs: Pulse 59 [...] Faith (more content not included)... Normal [facility] Auto Vinyl Top Installer Authentication Interface Message Text Patient identfied by name and date of Pharmacy updated Vital signs taken Patent in exam room ready for MD Normal [facility] SPECIMEN FOR SURGICAL PATHOr dered By: Sun Allen on 05-12-2024 Case Report Surgical Pathology R eport Case: [id number] Authorizing Provider: Simon Packer MD Collected: 05/08/2024 0803 Ordering Location: [facility] Main OR Received: 05/08/2024 0810 Pathologist: Sun Allen MD Specimens: A) - Tongue, biopsy of right base of tongue B) - Tongue, Biopsy of base of tongue [facility] Work Phone: Clinical Information [facility] Work Phone: Final Diagnosis n1emyHImHCTzv6hbFFQm bGFuZz EwMzNcZnRuYmpcdWMxIHtccnRm AQrkuIzlALX8WHNkML6dmFwwnW f0bYiuJTFusnH4zVMqVNpwz1eb CNI3m2zkoxbiILCuCApfRf4maL RevJopSgXjICXxRCo6rQ29TUSe lE8riYDmIEh1GUZaoSSjbvKcCg JyGGGmkOGxnAB9IMJiCU9dzuth JCgcPIrvGBXmdqL2IZEwsKWiR5 GrPUGvBZ0mirmjVGC4DCuwXLHr USB7MkNmPPApn0Tefwm7PvTqwZ XpWSvsfMEigsjaCTXhNiDtUL0b GaAvisy4PIdoDzlphNE7YH4rQH NkP8e4LVEle1Glj1ArnE9vI3Iu IlxwYXJcYjBccGFyIElOVkFTSV SWWPMZJ4ESPRJKUNVQYSGVChHQ GHLVNNWAAFILQN9FRnJAWMzHMF JGBwKUWs6JBAO6dYJvGVLvZ6Vl JJClt62qZYByzZNcOUXcAtJjsc 68ap2gaiKuFT3oDPQdglsdEEc3 SPR4RQgzON2wLR4xC0Rgk0ovGl bhHXPnEFlgXJSjRuWJNjFjLU9d Y6ArJHCAfL4ly1pfx1VsLuFcXD NhXmE2f79ifFEjLQMrdvhqRCvy EXPuCZ7QQFSOXxTgET0NQniSKE RJRkZFUkVOVElBVEVEIFNRVUFN N2CNSRCITNznD0PSE8bNC59XIU dpdGggdWxjZXJhdGlvbiBhbmQg jeTcwp7qrGDqXDqhDNEdYxIyr5 tto8SiRYNzQpHxzs8yjU2amvMw lLbmfGaorXNzw2Xow90bO1iwlq y4YJvimP8ml2qmNbAjU4ZvSAcz yZZlo7eux1KwQ5nvwDuuoVL1RD Fez0IfmSZsNPneAIUfkZSfLTFo hm55EET2ImXrz5G4PODzAgZhAV KjNN1aqDwuDXEwLY2tKEApX4nt bQ8ajtv4MoJeVEHsYtU4LPFjvh R8Aed2EOVxWSwww6vvy5MrKPKs NLs8aZowRpMsFLEvs3grctRoJu WoPVArEHXiBBSlnYFvL071x0sr s8enqeBizFF0OITdTXM6VAslms HyfhN5CLblgAIwNsN6APwjtaRz JMLoE4EvLA60UGaalXSbIUXqK4 xyZWQwXGdyZWVuMFxibHVlMCA7 hEojo9V9dPAipQRmiWnkJyJkSx UqTjTYm4FxSIb7xPetJ5FiSCNo PpI8iROkCSFvXEeoMHKrVBNymh D3mO67FOwqigC0bNDhq5Hqu33o t434yY2mrJSlSYQ7OPXvDILwsT EuZDBoCWS7ECJwtIObB7olICKe MK8oltioUZynSHqmHYFqoRZ7CP OraCHwN1MgZALfUJbrNYDdxvz4 RfCpEl7twAEbvUkxYFdel7rah9 nnbTSgVlp4ZJAmOxPmPfhwXVgv u3Emf1erIQAexb8fIRB8dTGfnI lbl9V4hTUvDALusLTlkfDkYAAw FqA6ASxpDS7fpk87ISGqRWC2cn 1wlATxwDsqsqZtyRGsIOnaV3Js RAMpk475OCMzG4LhHPTwt1D5ub JvOaAlKFDwoRQ4lqE5WBCvOSl1 uVDdyuJ8qrVrrWZhZ7uxwK4eOA VeTA9kitgip1skYMrtBXmyARMs lJH5zeK9PLAklJWfE9HpyH9kLA VkWWrfVIFgbsi7FgWmJw8jwBIz eTcyMFxzYmtwYWdlXHBnbmNvbn RccGduZGVjXHBsYWluXHBsYWlu CMZrHSLlLyTtdZxpeRcgpX3zNa KyQmFqAxjePO7vPMMgL2moqCQq MAPlLOHrY7zqNuIliJ0wrHkfWH xmczIyXHBhclxwbGFpblxmMVxm hjNtUBcyyfrbYLAaYQtsS0ksDw GrLKBgxHryXZqti2UnLUDoQXSw ZmClEVbvO9Fjk00oF7RnfTyoI7 clhaYjNP86kTQaxCGIBG50hYvv O5FuWUWrcrfxXHFan15oQUIjGY cpDjDjFO3fnLUxKNLrkkplcRCt cnwtVGmmagV2XVywdwcpGHDsEQ ykA5kdVmXxCBUrkOpnOEnhi0Cz GPWfXFMiHqhenmH6QLsqMJDqZF N4mDW5ELXpSDRaVODnSMAwl94j lFy5CCPlvmC2T3VgXMY4bJLeBX auT47nk3EhTpSmqgFpcPU6oC1w FZ5lPXLoTKCfAv62TAJohPOkaP 9ljeisPFBafjTciMC0EUNsYL7t QPCuBEE5nRFlVgokPDmgTCkjL8 1gh1bfADWkOI6hDEJjBSqyKUJj XGZzMjJcbGFuZzEwMzNcaGljaF mhJJiqNmPnKMYqCRmeG8yeXxEm ZnMyMlxwYXJccGFyfX0= [facility] Work Phone: Gross Description p2vrbNIfSUIqaNQcBKty Nlxhbn TwHCVjmCOzZ0IvmmryASdjQY0l JF9uiDjtvZBvwKUwAAQkCaRow8 idk026aABqv5hpSRWXetaomSs5 hIabY08tt6D0IrjqZ46zoTDnBE C3UDSmTFHfaOAhYTQiTDY1PVBm sBSgE7sgFLWkFE0ltvrwTVktLK yfEEUktBW4UPGkcQRxT1LsWNFp DDtkUBSnhwq1KoGxBx5knCApqZ cyMFxwYXJkXHBsYWluXGZzMjAg IM1cVgCcuCvssDLpu64qTHGzco MspM1yL7SoHIDenN8jv9laWkvm eOG1PN5sFEOkc2Dls8UgxS3iC4 XpEr6dpMFgADUfyuTTjEVjz1Ip C8diZC4zpZRrarPkCZg5EIJsQw Izz4uiaE6kx20uSJOllyXvpH2q ufmkoICkYGcwHYA4wTSeKQRcJA XvGEWhIN37S3VuxsSgDOZqgiUm bWVkaWNhbCByZWNvcmQgbnVtYm SvXaOLQMXnFESsPTLoBcHum3Bo zSTtGmAsTOHuWB9yMYIadxr7UC BaACDkHANkrOQsdM8qyiYbc19y rIC8luHjFxMqnJa5zDMqOOLxpo EhaIHccRYzv6BahLvqny26EL1n VOHiSiUmwHlng6AtHM6jYNC2ba qwIjIuKNjlHY07OTykKE9vFGWw THjwISPrR9FrC7N7QMlsDALqmC AfKUFtP8Kpm56nSdJrEXEXwtJ3 l9OjEMQteiizZGFaXDQjODKJbG xgiLCrIHZjKR0wAUEhnrl0NJHa CKzorTBmVSIhzjCYKiCZTDX4xL JesHcfrxPaNROfGUC4y95amLHx IJDbn7GwxSIxMwZaJRQdKY0dYL Msfxa8IZRpGNOnevdlSSIxQFvk SEXnRYIefGXrRPmhAZRuO9Zfkr ZnHXJbPWSoDAujPA0rETKbf611 BHwxSHAqOMldDwJsTFWcu1f7hI T9jMIqmBY8fSZqfJkdOI1amUVh DO3vNI3yCLrsKNqhtvSkc8VyCO 92tOTscs1tUEPhl2ZrVZFrCOPu qO5iz6gcb7QxZiKpSDUzEeB8v1 8dnLDgQsGFnGRjb3XcY7smRQ3t U66df5uylCOaw2VwqUAdaXmbcA CpDzFjN97pyqEaTB2nGUZxaqkt cWVsLKUyq0V8PDLsp2G6ZVGhZU RpiQUjjoccYIT5YVDhOyY7KXBu NuQcsUVpqbExO0blWLovhWBcAK JgpivcNBOoW2AfnZsuknW2SPGW ezS7a4SvTBQtfqyyROBpGzJpJY VXbA0ww3trh8HfNgBhFZGmLnS0 j70pzPBdTOktCZPmzvskRQPoeV FyXHBhcmQgVmluYXlhayBBcnlh bCwgTURccGFyfQ== [facility] Work Phone: Immunohistochemistry e5pckGWgZIUshLBdTPw wNlxhbn CyXLNumKGeV0QrstxhDGezNJ0b EZ1ljFligHEsmCFyZDEoRePzt6 ocw514fPFnd4tdOGKMlayexYb1 gXamD07ac2X4JtpqD2qfNTEoPX dyZWVuMFxibHVlMDtccmVkMTEx MMjuGRDaVYMvXDRxhJXkIIT1bN fjCKZyhfgfIvA9OAiyZNMcagbq WVy8EYspVUMciMP2KZMsaHNfO9 RvBQDmBV7mkoj6XXT1WPxxFRSc RdQ7KPAjsUAjMYQxhQvuCXsjb9 75ZMO7SrAdPNTprnKgfGhozP2e FusrenUyYPbECSOTU7nVN9LRR0 dFXHyACICRKWDFBWKGHFX8MKPt wvstOOUrEK5dZG46AMTqxfP7KC Tzp58kOX9dhYMsYKhyJpZkBGmy pdrnNMktZSSaGKAYcaPiHf8sdC nllSGvYIXqMDVkNjzjL3ZiVZGd JH6xtAXqliFaQPJbHUIec8XqGS 6oYgwiXsGsuTWwcuftQ0uyZlAb ICg+IXZcPW2tPHJ9kN0pKEPjaQ mrTJzzLHWhH0WeCQLgfukckCQw pHpsAQXRm68fSP21GtLrPMzqIP ahmPGqo3uuf6UyW6aroDcfXHux i8VkuA6cs3UkiG2ngHzdAnXzo7 zqBjTtXKMpEKUpXy13GKWszAUz no1xuIBtKOzfLFGyPAuyPUPch3 WqVVbckRTgt5zmz1OmZ9pxaVtz VBtvd8DjtF3wF9DjEVRnSLTiPG SjYQWqooPdwQ7fNRXnpIMlxPVy xLzaDBBtu8JrBznaEUHtGPStmr kyGqWwF2YwQ6AfTKSdQrNUDVLe NPRSJtZtBHlxsOQhCWsnB6TwPA lnaCBncmFkZSBkeXNwbGFzaWFc T1ZzCM7qTH0obYFdvSQgqpKvnO AhXD8tEPphnTWmcN3ni7soKQIi xnljOUYgTLzsYDkhcNEba5krm9 NfX8ikbPfySPfwd2BwkQ8iLQS8 lGLeuiBszLpoNIAas8RcPCByLC skd1Ycwd8iJOhnYMNqv3VfTBke iBBqb8czr8VhZ2tkcCwdDJjnn7 LanX5sYOPeHPKti17eZSdsjg09 YUX9x7qzsSMnRNxlExflvMUubu M0GKkIZQTNSVeSLkVjRO0bWUqG A4YMKJnNIwauDLKcUAS5XZwgaI gmLxrnooQurSSxLtKvdT69xnOc uPT3eJLbMLAdTFBeK0Pwrrw9CK W7aYGvEQdyOVPzZHMgob7yVJQl n9fhfMJvXGpkGzfdvBAfqtL6MG sVSKPNOPwAAnOzET6sJGrOD3GU GfK6EIEePHq2dMD1OV96WROoRO JnrBDoUWsdG666EXWuZIlzGZQj MjAgLlxwYXJccGFyZFxwYXJcYi PJz541or9gzbzsSPDcJBQsNQGj jfkcbQNfXZwjPNAFVLDjtX6duT 5puVNpEHNouakwJUVtq9MkZFwf TDX4LRXnBYLeB9WhYOLZvtXzfR RlLXNwZWNpZmljIHJlYWdlbnRz KN2mSDNxk6BacP6eaZVhZKJfoR 7wNBYghKDiiIYsYlNIg8PnYsek GLXCINCqIaMEll4qbXA2XAz5Ez HxUEd7KHMjq21mrCUudAOiaCSn KBHthvViiP54wt4fxBT1u8BjZU 3gu3WyhOO1PXBsHIJfqhQtd1Uz GQVipdJvbVdrcGMetBLvWg8zgJ BjO3VsZ3wnxiCcsKJhuBE9yTRb PKCyyOAawUirOTLxWlbbz6SoVE WvecBiseUeBCMMFHQts8tuMGl1 fVNTFKAlK5SnKJAcxeNifzqmJT XpWBU0bMBsnWHzSpQSZJWjd0qe Q5uyNq7wuI37coW8JM8ea5GwVw JqlmW1iiFrpIylumLfZV9yZHJn hrGvsVWusGJrgKbol7GvrRBlfA MhCBHwarSjpDepZPSkCHPRx80n FFafaURrq2yvu6EwD3exfFtyVF dzi0NvkV4fVVdtubErvg57VLIg WU3fM2zcBSUsEPFtolNhlLTex7 YqQJAjwMJ3kUUiBSUpQz3fMFHg kuLiGWB3ZxVQYT8cyvmcwPYouV wmex7gBSQmSYYZZGCynOQkFTHz dGVybWluZWQgdGhhdCBzdWNoIG PbUGMzJX5oDFCaynCguDXkh3Vs bKZlipJsi4KjhtTqWKWdDMD7Wl DbCLqcrhV8GFS6XEnjLBGuVUXp Zu3eIQKqkT6yT8WjBOK1tgGdn0 PyThNaJSDim5tqaFotWG9cnARc ZSByZWdhcmRlZCBhcyBpbnZlc3 QzC6I1eV6pQFfds6HfAs1xURIk f2UoefEcEaZgQTJpMAbgiFx8ER CgEHA2oZFii19zLCMuODCoxBDu VbeuFQRmoHFlwU7nqvKxDP6aXw hiF79vYHWcpQ7jv3vnn9OlGn8n YGlsl4juuGtbQZAuADdtmAJdqW DubIQqQPmifCszT4D1sGlmxlJa kfTksQX2BI6yzABfLGOqxmWcQ6 P5cGMtBV1vWVRrtRJcYGphkhCh z9nsusIdlGE2dMKfJWBVKO6yK7 G6mFAnISBrz9UipQIifnWhGJY3 jW7bq3y0LAIxtYoiNquvH6nna6 hvdWxkIGJlIGludGVycHJldGVk RNclnXnnL5S0jBcefwCvpgLhaF Q4BH8smTRtTATlhyBgR6U9lXSx EA6jTGRjQICkrhZoMq1xlFnbSU SlbBXlYBlcfhYnt9kmwzOjhMR6 zLVlGHReQVIzhI47gPXsPiPzL0 1dtGEvRLTgvE8bMQV7wYWndLYo h2VzmYtjZObeML7wgL3bh8hxqG EoCJUMcOptRYsfKj9vVNUcaglx rNGmK2MtnSuxzBSxFFYyPLPsPH NMSUEgYXMgcXVhbGlmaWVkIHRv QUPuqeFplz6dgJuwrPLuh77epO U6pMO7JBDaf2LzqeerNZSmcnxp MbWegMYmXTQnQ30BUjEWZXCKP8 2IRRKMYZRSN8DQQ2gJMXS5XHQ8 QddnVWZmM85IKhJBUBRFS30TWB VCJDDXT9DTOGTJKAdDI8TYBR1V VLVOOULVYX7NRAxAZsWJZQtDY5 HHWI5AOOAVRUMGFL2IYyGdEEmP V1CZB1pJNHHsDRMQPTXQGICtGa GYLG0qKGf7WGgINmO1NYN7Cpz0 WJDAGUSWHJ2SAXBSR69MSIRTLH SDZ0SWMYSOLyJIHMTXT70BYIOY HJRKK6TXP4oCDKIQHoPIXSBQU4 7EFAHAAMZIO3RNQDUMLSLWXmJR UlOJJU6EKABHYRCUAK0NPDbSFu AtKAMVZ6IKSeCVC3vfMAINFMWR UAKkBX0YfJ== [facility] Work Phone: Intraoperative Consult u4ikfCInGSCbqLVmB DkwNlxhbn VoPRUujGEtE9LavqhbSAgsNM7l UL0hyVlryMZnzDDsYLJkWzRvu5 xyv653sVMmz4jjQUSTlqsxkLn7 fRgbC13wo6S7ZcwsJ78lmXDwZQ D2RTRbNEFrhCNaSEDoKUI8CNPl zMXcH6dfJMQgXS5zlyvcHIyqMB owXDCwiJA9WXAfuGLuQ0BwAHMo KIqhOKOcyqc4SxJlNw6ngAPmzO cyMFxwYXJkXHBsYWluXGJcZnMy IGHHJyIcMR1lM9VgFBFnoP1pq6 biu5CfsmsmwFKeYvPgOENlTbM4 e63vuYXbMSHfvnrgQXflBJZgrE FtQDARRzJLJ0gRLKLAHQJIHR8K EnKTRPhJEMXEJrZFLk1UQI8cbR FyfQ== [facility] Work Phone: [facility] Work Phone: Anesthesia Postprocedure Carol luationon 05-08-2024 [employer] Authentication Interface Message Text Anesthesia Postoperative Assessment: [...] EVENTS: No notable events documented. Normal [facility] Anesthesia Preprocedure Eval uationon 05-08-2024 [employer] Installer Authentication Interface Message Text ASA: 3 No [...] were discussed with the patient and/or legal b2b outside sales representative. The risks, benefits and alternatives were reviewed. Questions regarding anesthesia were answered. Patient and/or legal b2b outside sales representative knows such anesthetics and procedures may be performed by Resident physicians, Certified Anesthesiologist Assistants, or Certified Nurse Anesthetists under the supervision of a physician. The patient /or the patient's legal b2b outside sales representative agree with the plan for anesthesia. MHPATFORM Normal [facility] Auto Vinyl Top Installer Authentication Interface Message Text Patient taken to [...] report was received. POLLO Salazar Normal [facility] Blood Attestationon 05-08-19 Auto Vinyl Top Installer Authentication Interface Message Text Blood Attestation: ATTESTATION OF INFORMED CONSENT FOR BLOOD: The transfusion of blood and/or blood components were discussed with the patient and/or legal b2b outside sales representative. The risks, benefits and alternatives were reviewed. Questions regarding blood transfusions were answered. The patient /or the patient's legal b2b outside sales representative agree with the plan for transfusion of blood and/or blood components. Normal [facility] Interval H AND P Noteon 04-25 Auto Vinyl Top Installer Authentication Interface Message Text H AND P reviewed. The patient was examined and there are no changes to the H AND P. Medications, allergies, and pertinent laboratory and diagnostic tests were also reviewed at this time. Surgery still indicated. Normal [facility] OP Noteon 05-08-2024 Auto Vinyl Top Installer Authentication Interface Message Text Operative Report DATE OF SERVICE: 05/08/24 PATIENT: Robert Ron PREOPERATIVE DIAGNOSIS: 1. Oropharyngeal mass POSTOPERATIVE DIAGNOSIS: 1. Oropharyngeal mass, squamous cell carcinoma PROCEDURE: Direct laryngoscopy with biopsy, CPT 90191 SURGEON: Simon Packer MD SPECIAL EDUCATION TEACHER: Resident surgeons: MD Jimenez Craig MD ANESTHESIA: [...] present for the entire procedure. Normal [facility] Telephone Encounteron 2024 Auto Vinyl Top Installer Authentication Interface Message Text Reached patient, who is advised of scheduled speech, nutrition and ENT appointments as well as dental. He states that he has called his local dentist as well. If he can get in to them sooner, he will call and provide information so we can send dental clearance checklist. Cindy Newell RN Normal [facility] BASIC METABOLIC PANELon Anion gap [Moles/Vol] 17 mmol/L Normal 10-20 [facility] Comment on above: Performed By: #### C H8 #### [facility] [address], [place], Calcium [Mass/Vol] 9.7 mg/dL Normal 8.6-10.3 [facility] Comment on above: Performed By: #### C H8 #### [facility] [address], [place], Chloride [Moles/Vol] 102 mmol/L Normal 98-107 [facility] Comment on above: Performed By: #### C H8 #### [facility] [address], [place], CO2 [Moles/Vol] 24 mmol/L Normal 21-31 [facility] Comment on above: Performed By: #### C H8 #### [facility] [address], [place], Creatinine [Mass/Vol] 0.99 mg/dL Normal 0.70-1.30 [facility] Comment on above: Performed By: #### C H8 #### [facility] [address], [place], ESTIMATED GFR (CKD-EPI) 81 mL/min/1.73sqm Normal [...] Inclusion of Race in Diagnosing Kidney Disease. French Journal of Kidney Diseases 2021;79(2):268-88.e1. 2. N Engl J Med 1 Vol. 385 Issue 19 Pages [id number] Performed By: #### C H8 #### [facility] [address], [place], Glucose [Mass/Vol] 181 mg/dL High 74-109 [facility] Comment on above: Performed By: #### C H8 #### [facility] [address], [place], Potassium [Moles/Vol] 4.1 mmol/L Normal 3.5-5.0 [facility] Comment on above: Performed By: #### C H8 #### [facility] [address], [place], Sodium [Moles/Vol] 139 mmol/L Normal 136-145 [facility] Comment on above: Performed By: #### C H8 #### [facility] [address], [place], Urea nitrogen [Mass/Vol] 22 mg/dL Normal 7-25 [facility] Comment on above: Performed By: #### C H8 #### [facility] [address], [place], Basic metabolic 2000 panelon 04-28-2024 Anion [...] [Vol rate/Area] 81 - PINF [facility] Comment on above: 2020 CKD EPI [...] Inclusion of Race in Diagnosing Kidney Disease. French Journal of Kidney Diseases 202;79(2):268-88.e1. 2. N Engl J Med 2020 Vol. 385 Issue 19 Pages [id number] Glucose [Mass/Vol] 181 mg/dL High 74 - [...] fraction] 45.6 % 41.0 - 53.0 % [facility] Hemoglobin (Bld) [Mass/Vol] 15.1 g/dL 13.9 - 16.3 g/dL [facility] Interpretation and review of laboratory results Abnormal [facility] MCH (RBC) [Entitic mass] 30 pg 26.0 - 34.0 pg [facility] MCHC (RBC) [Mass/Vol] 33.2 g/dL 32.0 - 35.9 g/dL [facility] MCV (RBC) [Entitic vol] 91 fL 80 - 100 fL [facility] Platelet mean volume (Bld) [Entitic vol] 10.4 fL 7.5 - 11.2 fL [facility] Platelets (Bld) [#/Vol] 168 10*3/uL 150 - 400 K/uL [facility] RBC (Bld) [#/Vol] 5.04 10*6/uL [facility] WBC (Bld) [#/Vol] 9.8 10*3/uL 4.5 - 11.5 K/uL [facility] COMPLETE BLOOD COUNTon 04-28 Erythrocyte distribution width (RBC) [Ratio] 15.0 % High 11.5-14.5 [facility] Comment on above: Performed By: #### C BC #### [facility] [address] [place] [address], Hematocrit (Bld) [Volume fraction] 45.6 % Normal 41.0-53.0 [facility] Comment on above: Performed By: #### C BC #### [facility] [address] [place] [address], Hemoglobin (Bld) [Mass/Vol] 15.1 g/dL Normal 13.9-16.3 [facility] [facility] Comment on above: Performed By: #### C BC #### S PATHOLOGY LABORATORY [address] [place] [address], MCH (RBC) [Entitic mass] 30.0 pg Normal 26.0-34.0 [facility] Comment on above: Performed By: #### C BC #### S PATHOLOGY LABORATORY [address] [place] [address], MCHC (RBC) [Mass/Vol] 33.2 g/dL Normal 32.0-35.9 [facility] Comment on above: Performed By: #### C BC #### S PATHOLOGY LABORATORY [address] [place] [address], MCV (RBC) [Entitic vol] 91 fL Normal 80-100 [facility] Comment on above: Performed By: #### C BC #### S PATHOLOGY LABORATORY [address] [place] [address], Platelet mean volume (Bld) [Entitic vol] 10.4 fL Normal 7.5-11.2 [facility] Comment on above: Performed By: #### C BC #### [facility] PATH[facility]AT[facility] [address] [place] [address], Platelets (Bld) [#/Vol] 168 10*3/uL Normal 150-400 [facility] Comment on above: Performed By: #### C BC #### [facility] PATH[facility] [address] [place] [address], RBC (Bld) [#/Vol] 5.04 10*6/uL Normal 4.50-5.90 [facility] Comment on above: Performed By: #### C BC #### [facility] PATH[facility] [address] [place] [address], WBC (Bld) [#/Vol] 9.8 10*3/uL Normal 4.5-11.5 [facility] Comment on above: Performed By: #### C BC #### [facility] PATH[facility] [address] [place] [address], EKG 12 LEAD - PERFORMon Diagnosis Sinus rhythm with 1s t degree AV block Nonspecific ST abnormality Prolonged QT interval or tu fusion, consider myocardial disease, electrolyte imbalance, or drug effects Abnormal ECG Confirmed by ADÁN FREEMAN ([id number]) on 04/28/2024 1:41:04 PM [facility] P wave [facility] by EKG 84 BPM [facility] Q-T interval 470 ms [facility] Q-T interval corrected 545 ms [facility] QRS axis 66 degrees [facility] QRS duration 98 ms [facility] T wave axis 68 degrees [facility] H AND P (View-Only)on 2024 Auto Vinyl Top Installer Authentication Interface Message Text OTOLARYNGOLOGY - HEAD [...] Dubois) who presents today, 04/28/2024, at the [facility] at the request of Referring Provider: [...] LNP, pres. free, 50 mcg/0.5 mL dose (MPS=774) 01/24/2023, 01/21/2024 Influenza, injectable, high dose seasonal, trivalent, preservative free (NXO=014) 12/19/2016 Influenza, injectable, quadrivalent, preservative (CUC=257) 12/22/2020, 01/03/2023 Influenza, injectable, trivalent, preservative (LXF=582) 01/07/2024 Influenza, novel P1S4-90, injectable, preservative-free (RQY=152) 02/03/2009 Moderna Monovalent (12+ yrs) COVID-19 vaccine, mRNA, spike protein, LNP, PF, 100 mcg/0.5 mL (YMY=927) 06/24/2020, 07/22/2020 Pneumococcal conjugate 20 valent (PCV20), polysaccharide [id number] conjugate, adjuvant, PF (XPD=925) 01/21/2024 Respiratory syncytial virus (RSV), vaccine, recombinant, protein subunit RSV prefusion F, adjuvant reconstituted, 0.5 mL, preservative free (WLP=477) 01/24/2023 Zoster Recombinant (RZV,Shingles) (PCH=625) 08/20/2019 PHYSICAL EXAM: Vital Signs: Pulse 82 [...] mid (more content not included)... Normal [facility] Patient Instructionson 04-28 Auto Vinyl Top Installer Authentication Interface Message Text On the morning [...] for pain. Please hold all Vitamin E, [place] 3, fish oil and herbal supplements for [...] otherwise contacted. ? Expect a call from [facility] one business day prior to surgery for [...] your Preparing for Your Surgery/Procedure booklet or [email or web address] if you have questions. Contact the Pre-Admission Testing department at [phone] or your surgeon's office with any questions [...] stay with you after surgery. Please call [employer] if you need transportation assistance or have concerns about going home [phone]. ? SLEEP APNEA PATIENTS: Bring your sleep apnea machine and mask. ? PLEASE BE ON TIME. A late arrival may result in the cancellation/ delay of your surgery. Thank you for choosing [facility]; it is our pleasure to care for you Normal [facility] Progress Noteson 04-28-2024 Auto Vinyl Top Installer Authentication Interface Message Text Pt identified by name and Pharmacy updated Vital signs taken Pt in exam room ready for provider Normal [facility] Soft Tissue Neck WITH Contra ston 04-13-2024 Soft Tissue Neck WITH Contrast Normal [facility] L3300.0940on 01-11-2024 VIT D,25 HYDROX Normal [facility] Comment on above: Result Comment: TEST RESULTS LIMITSVitamin D, 25-Hydroxy 30.9 ng/mL 30.0-100.0Vitamin D deficiency has been defined by the [place] of[employer] and an Endocrine Society practice guideline as alevel of serum 25-OH vitamin D less than 20 ng/mL (1,2).The Endocrine Society went on to further define vitamin Dinsufficiency as a level between 21 and 29 ng/mL (2).1. IOM ([place] of [employer]). 2010. Dietary reference intakes for calcium and D. [place]: The National Academies Press.2. Alissa MF, Jared [place], Jane ALEXANDRA, et al. Evaluation, treatment, and prevention of vitamin D deficiency: an Endocrine Society clinical practice guideline. JCEM. 2010; 96(7):1911-30. [facility] ORIGINAL REPORT ON FILE IN LAB CONTAINS ADDITIONAL TEST SITE INFORMATION. Performed By: #### L 100.0100, L3300.0940, L501.9520, L500.4050 ####[facility] [address] [place], [address] CBC W/Diff, Automatedon 10-1 5-2023 Absolute Lymph 1.49 X10 3/uL Normal 0.83-4.51 [facility] Comment on above: Performed By: #### L 100.0100, L3300.0940, L501.9520, L500.4050 ####[facility] [address] [place], [address] Absolute Neut 6.5 X10 3/uL Normal 2.0-7.7 [facility] Comment on above: Performed By: #### L 100.0100, L3300.0940, L501.9520, L500.4050 ####[facility] [address] [place], [address] Basophils/100 WBC (Bld) 0.8 % Normal 0-1 [facility] Comment on above: Performed By: #### L 100.0100, L3300.0940, L501.9520, L500.4050 ####[facility] [address] [place], [address] Eosinophils/100 WBC (Bld) 1.6 % Normal 0-5 [facility] Comment on above: Performed By: #### L 100.0100, L3300.0940, L501.9520, L500.4050 ####[facility] [address] [place], [address] Erythrocyte distribution width (RBC) [Ratio] 14.2 % Normal 11.6-14.6 [facility] Comment on above: Performed By: #### L 100.0100, L3300.0940, L501.9520, L500.4050 ####[facility] [address] [place], [address] Hematocrit (Bld) [Volume fraction] 47.9 % Normal 40-54 [facility] Comment on above: Performed By: #### L 100.0100, L3300.0940, L501.9520, L500.4050 ####[facility] [address] [place], [address] Hemoglobin (Bld) [Mass/Vol] 14.9 g/dL Normal 13.0-16.5 [facility] Comment on above: Performed By: #### L 100.0100, L3300.0940, L501.9520, L500.4050 ####[facility] [address] [place], [address] IG% 1.200 High 0.0-0.9 [facility] Comment on above: Result Comment: IG% - Immature Granulocytes (promyelocytes, myelocytes andmetamyelocytes) > 1% indicates that a LEFT SHIFT is Present. Performed By: #### L 100.0100, L3300.0940, L501.9520, L500.4050 ####[facility] [address] [place], [address] Lymphocytes/100 WBC (Bld) 16.3 % Low 19-41 [facility] Comment on above: Performed By: #### L 100.0100, L3300.0940, L501.9520, L500.4050 ####[facility] [address] [place], [address] MCH (RBC) [Entitic mass] 28.9 pg Normal 27.0-32.0 [facility] Comment on above: Performed By: #### L 100.0100, L3300.0940, L501.9520, L500.4050 ####[facility] [address] [place], [address] MCHC (RBC) [Mass/Vol] 31.1 g/dL Low 32-36 [facility] Comment on above: Performed By: #### L 100.0100, L3300.0940, L501.9520, L500.4050 ####[facility] [address] [place], [address] MCV (RBC) [Entitic vol] 93.0 fL Normal 80-94 [facility] Comment on above: Performed By: #### L 100.0100, L3300.0940, L501.9520, L500.4050 ####[facility] [address] [place], [address] Monocytes/100 WBC (Bld) 9.2 % Normal 0-10 [facility] Comment on above: Performed By: #### L 100.0100, L3300.0940, L501.9520, L500.4050 ####[facility] [address] [place], [address] Neutrophils/100 WBC (Bld) 70.9 % High 47-70 [facility] Comment on above: Performed By: #### L 100.0100, L3300.0940, L501.9520, L500.4050 ####[facility] [address] [place], [address] Nucleated RBC (Bld) [#/Vol] 0 10*3/uL Normal 0-5 [facility] Comment on above: Performed By: #### L 100.0100, L3300.0940, L501.9520, L500.4050 ####[facility] [address] [place], [address] Platelet mean volume (Bld) [Entitic vol] 11.7 fL Normal 6.2-12.0 [facility] Comment on above: Performed By: #### L 100.0100, L3300.0940, L501.9520, L500.4050 ####[facility] [address] [place], [address] Platelets (Bld) [#/Vol] 168 10*3/uL Normal 150-450 [facility] Comment on above: Performed By: #### L 100.0100, L3300.0940, L501.9520, L500.4050 ####[facility] [address] [place], [address] RBC (Bld) [#/Vol] 5.15 10*6/uL Normal 4.6-6.2 [facility] Comment on above: Performed By: #### L 100.0100, L3300.0940, L501.9520, L500.4050 ####[facility] [address] [place], [address] RDW SD 48.8 fl High 35.1-43.9 [facility] Comment on above: Performed By: #### L 100.0100, L3300.0940, L501.9520, L500.4050 ####[facility] [address] [place], [address] WBC (Bld) [#/Vol] 9.2 10*3/uL Normal 4.4-11.0 [facility] Comment on above: Performed By: #### L 100.0100, L3300.0940, L501.9520, L500.4050 ####[facility] [address] [place], [address] Comprehensive Metabolic Prof [facility] 01-07-2024 Albumin [Mass/Vol] 3.5 g/dL Normal 3.2-5.0 [facility] Comment on above: Performed By: #### L 100.0100, L3300.0940, L501.9520, L500.4050 ####[facility] [address] [place], [address] Albumin/Globulin [Mass ratio] 0.8 {ratio} Low 0.9-2.4 [facility] Comment on above: Performed By: #### L 100.0100, L3300.0940, L501.9520, L500.4050 ####[facility] [address] [place], [address] ALK P 143 U/L High 45-117 [facility] Comment on above: Performed By: #### L 100.0100, L3300.0940, L501.9520, L500.4050 ####[facility] [address] [place], [address] ALT [Catalytic activity/Vol] 50 U/L Normal 16-61 [facility] Comment on above: Performed By: #### L 100.0100, L3300.0940, L501.9520, L500.4050 ####[facility] [address] [place], [address] AST [Catalytic activity/Vol] 32 U/L Normal 15-37 [facility] Comment on above: Performed By: #### L 100.0100, L3300.0940, L501.9520, L500.4050 ####[facility] [address] [place], [address] Bilirubin [Mass/Vol] 1.00 mg/dL Normal 0.20-1.00 [facility] Comment on above: Result Comment: For patients on eltrombopag therapy, use of Dimension [place] TBIL is not recommended. Performed By: #### L 100.0100, L3300.0940, L501.9520, L500.4050 ####[facility] [address] [place], [address] BUN/CRE 16.9 RATIO Normal 10-20 [facility] Comment on above: Performed By: #### L 100.0100, L3300.0940, L501.9520, L500.4050 ####[facility] [address] [place], [address] CA,Total 9.5 mg/dL Normal 8.5-10.1 [facility] Comment on above: Performed By: #### L 100.0100, L3300.0940, L501.9520, L500.4050 ####[facility] [address] [place], [address] Chloride [Moles/Vol] 106 mmol/L Normal 98-107 [facility] Comment on above: Performed By: #### L 100.0100, L3300.0940, L501.9520, L500.4050 ####[facility] [address] [place], [address] CO2 [Moles/Vol] 26.0 mmol/L Normal 21.0-32.0 [facility] Comment on above: Performed By: #### L 100.0100, L3300.0940, L501.9520, L500.4050 ####[facility] [address] [place], [address] Creatinine [Mass/Vol] 1.24 mg/dL Normal 0.70-1.30 [facility] Comment on above: Result Comment: The validity of the calculated GFR GFRAA in patients over70 years has not been determined. Clinical correlation isessential. Performed By: #### L 100.0100, L3300.0940, L501.9520, L500.4050 ####[facility] [address] [place], [address] EST GFR - AA 74 mL/min Normal >60 [facility] Comment on above: Result Comment: Afri can French GFR Calc Performed By: #### L 100.0100, L3300.0940, L501.9520, L500.4050 ####[facility] [address] [place], [address] GAP 5 Normal 5-15 [facility] Comment on above: Performed By: #### L 100.0100, L3300.0940, L501.9520, L500.4050 ####[facility] [address] [place], [address] GFR/1.73 sq M.predicted among non-blacks MDRD (S/P/Bld) [Vol rate/Area] 61 mL/min/{1.73_m2} Normal >60 [facility] Comment on above: Result Comment: Non- GFR Calc Performed By: #### L 100.0100, L3300.0940, L501.9520, L500.4050 ####[facility] [address] [place], [address] Globulin (S) [Mass/Vol] 4.3 g/dL High 2.2-4.2 [facility] Comment on above: Performed By: #### L 100.0100, L3300.0940, L501.9520, L500.4050 ####[facility] [address] [place], [address] Glucose [Mass/Vol] 239 mg/dL High 74-106 [facility] Comment on above: Result Comment: Gluc ose result greater than or equal to 200 mg/dLsuggests DIABETES MELLITUS per A.D.A. criteria. Performed By: #### L 100.0100, L3300.0940, L501.9520, L500.4050 ####[facility] [address] [place], [address] Potassium [Moles/Vol] 4.1 mmol/L Normal 3.5-5.1 [facility] Comment on above: Performed By: #### L 100.0100, L3300.0940, L501.9520, L500.4050 ####[facility] [address] [place], [address] Sodium [Moles/Vol] 137 mmol/L Normal 136-145 [facility] Comment on above: Performed By: #### L 100.0100, L3300.0940, L501.9520, L500.4050 ####[facility] [address] [place], [address] T PROT 7.8 g/dL Normal 6.4-8.2 [facility] Comment on above: Performed By: #### L 100.0100, L3300.0940, L501.9520, L500.4050 ####[facility] [address] [place], [address] Urea nitrogen [Mass/Vol] 21 mg/dL High 7-18 [facility] Comment on above: Performed By: #### L 100.0100, L3300.0940, L501.9520, L500.4050 ####[facility] [address] [place], [address] Thyroid Stim Hormone (TSH)on 01-07-2024 TSH 1.290 uIU/mL Normal 0.358-3.74 0 [facility] Comment on above: Performed By: #### L 100.0100, L3300.0940, L501.9520, L500.4050 ####[facility] [address] [place], [address] Absolute lymphocyte countOrd ered By: Bulmaro Curtis on 07-04-2023 Lymphocytes Auto (Unsp spec) [#/Vol] 2.86 10*3/uL 0.83-4.51 [facility] Automated lymphocyte count a s percentage of total leukocytesOrdered By: Bulmaro Curtis on 07-04-2023 Lymphocytes/100 WBC Auto (Unsp spec) 26.0 % 19-41 [facility] Basophil percentageOrdered B y: Bulmaro Curtis on 07-04-2023 Basophils/100 WBC (Bld) 1.0 % 0-1 [facility] Bilirubin [Mass/Vol] 1.20 mg/dL 0.20-1.00 [facility] Comment on above: For patients on eltr ombopag therapy, use of Dimension [place] TBIL is not recommended. Chloride [Moles/Vol] 103 mmol/L 98-107 [facility] Eosinophils/100 WBC (Bld) 2.1 % 0-5 [facility] Glucose [Mass/Vol] 221 mg/dL 74-106 [facility] Comment on above: Glucose result great er than or equal to 200 mg/dLsuggests DIABETES MELLITUS per A.D.A. criteria. Hemoglobin (Bld) [Mass/Vol] 14.6 g/dL 13.0-16.5 [facility] Monocytes/100 WBC (Bld) 11.1 % 0-10 [facility] Neutrophils (Bld) [#/Vol] 6.4 10*3/uL 2.0-7.7 [facility] Neutrophils/100 WBC (Bld) 58.5 % 47-70 [facility] Potassium [Moles/Vol] 3.9 mmol/L 3.5-5.1 [facility] Protein [Mass/Vol] 7.5 g/dL 6.4-8.2 [facility] Sodium [Moles/Vol] 138 mmol/L 136-145 [facility] WBC (Bld) [#/Vol] 11.0 10*3/uL 4.4-11.0 [facility] Determination of erythrocyte mean corpuscular volume (MCV)Ordered By: Bulmaro Curtis on 07-04-2023 MCV (RBC) [Entitic vol] 92.9 fL 80-94 [facility] Erythrocyte distribution wid th ratioOrdered By: Bulmaro Rosales07-04-2023 Erythrocyte distribution width (RBC) [Ratio] 14.1 % 11.6-14.6 [facility] Erythrocyte distribution wid th standard deviationOrdered By: Bulmaro Rosalesok on 07-04-2023 Erythrocyte distribution width (RBC) [Entitic vol] 48.2 fL 35.1-43.9 [facility] Hematocrit Auto (Bld) [Volum e fraction]Ordered By: Bulmaro Curtis 07-04-2023 Hematocrit (Bld) [Volume fraction] 47.4 % 40-54 [facility] Immature granulocytes/100 WB C Auto (Bld)Ordered By: Bulmaro Curtis on 07-04-2023 Immature granulocytes/100 WBC (Bld) 1.300 % 0.0-0.9 [facility] Comment on above: IG% - Immature Granu locytes (promyelocytes, myelocytes and metamyelocytes) > 1% indicates that a LEFT SHIFT is Present. Laboratory - Chemistry and C hemistry - challengeOrdered By: Bulmaro Curtis on 07-04-2023 Albumin/Globulin [Mass ratio] 0.9 {ratio} 0.9-2.4 [facility] ALP [Catalytic activity/Vol] 117 U/L 45-117 [facility] ALT [Catalytic activity/Vol] 42 U/L 16-61 [facility] CO2 [Moles/Vol] 26.0 mmol/L 21.0-32.0 [facility] Globulin (S) [Mass/Vol] 3.9 g/dL 2.2-4.2 [facility] Urea nitrogen/Creatinine [Mass ratio] 19.3 mg/mg 10-20 [facility] Laboratory - Hematology and Cell countsOrdered By: Bulmaro Curtis on 07-04-2023 MCH (RBC) [Entitic mass] 28.6 pg 27.0-32.0 [facility] MCHC (RBC) [Mass/Vol] 30.8 g/dL 32-36 [facility] Nucleated RBC/100 WBC (Bld) [Ratio] 0 % 0-5 [facility] Platelet mean volume (Bld) [Entitic vol] 11.8 fL 6.2-12.0 [facility] Platelets (Bld) [#/Vol] 170 10*3/uL 150-450 [facility] No Panel InformationOrdered By: Bulmaro Curtis on 07-04-2023 Estimated GFR (MDRD) Amer 77 mL/min >60 [facility] Comment on above: GFR Calc Estimated GFR (MDRD) Non-Af Amer 64 mL/min >60 [facility] Comment on above: Non- GFR Calc Vitamin D 25-Hydroxy 34.3 ng/mL [facility] Comment on above: Vitamin D 25(OH) Sta tus Range Deficiency <20 ng/mL (50nmol/L) Insufficiency 20 - 30 ng/mL (50 - 75 nmol/L) Sufficiency 30 - 100 ng/mL (75 - 250 nmol/L) Toxicity >100 ng/mL (>250 nmol/L) RBC Auto (Bld) [#/Vol]Ordere d By: Bulmaro Curtis on 07-04-2023 RBC (Bld) [#/Vol] 5.10 10*6/uL 4.6-6.2 [facility] Serum or plasma calcium blaine urement (mass/volume)Ordered By: Bulmaro Curtis on 07-04-2023 Calcium [Mass/Vol] 8.7 mg/dL 8.5-10.1 [facility] Serum or plasma creatinine m easurement (mass/volume)Ordered By: Bulmaro Curtis on 07-04-2023 Creatinine [Mass/Vol] 1.19 mg/dL 0.70-1.30 [facility] Comment on above: The validity of the calculated GFR & GFRAA in patients over 70 years has not been determined. Clinical correlation is essential. Serum or plasma thyroid stim ulating hormone (TSH) measurement (units/volume)Ordered By: Bulmaro Curtis on 07-04-2023 TSH Qn 1.98 uIU/mL 0.358-3.74 [facility] Serum or plasma urea nitroge n measurement (mass/volume)Ordered By: Bulmaro Curtis on 07-04-2023 Urea nitrogen [Mass/Vol] 23 mg/dL 7-18 [facility] Thin prep Papanicolaou smear with manual screeningOrdered By: Bulmaro Curtis on 07-04-2023 Thin prep Papanicolaou smear with manual screening 3.6 g/dL 3.2-5.0 [facility] Thin prep Papanicolaou smear with manual screening 22 U/L 15-37 [facility] Thin prep Papanicolaou smear with manual screening 9 5-15 [facility] Absolute lymphocyte countOrd ered By: Bulmaro Curtis on 01-03-2023 Lymphocytes Auto (Unsp spec) [#/Vol] 2.76 10*3/uL 0.83-4.51 [facility] Basophil percentageOrdered B y: Bulmaro Curtis on 01-03-2023 Basophils/100 WBC (Bld) 0.7 % 0-1 [facility] Bilirubin [Mass/Vol] 1.80 mg/dL 0.20-1.00 [facility] Comment on above: For patients on eltr ombopag therapy, use of Dimension [place] TBIL is not recommended. Chloride [Moles/Vol] 103 mmol/L 98-107 [facility] Eosinophils/100 WBC (Bld) 2.1 % 0-5 [facility] Glucose [Mass/Vol] 158 mg/dL 74-106 [facility] Comment on above: Fasting Glucose resu lt greater than or equal to 126 mg/dL suggests DIABETES MELLITUS per A.D.A. criteria. Neutrophils (Bld) [#/Vol] 6.3 10*3/uL 2.0-7.7 [facility] Neutrophils/100 WBC (Bld) 59.1 % 47-70 [facility] Potassium [Moles/Vol] 3.9 mmol/L 3.5-5.1 [facility] Protein [Mass/Vol] 8.2 g/dL 6.4-8.2 [facility] Sodium [Moles/Vol] 137 mmol/L 136-145 [facility] WBC (Bld) [#/Vol] 10.8 10*3/uL 4.4-11.0 [facility] Blood erythrocytes count (nu mber/volume)Ordered By: Bulmaro Curtis on 01-03-2023 RBC (Bld) [#/Vol] 5.32 10*6/uL 4.6-6.2 [facility] Blood hemoglobin measurement (mass/volume)Ordered By: Bulmaro Curtis on 01-03-2023 Hemoglobin (Bld) [Mass/Vol] 15.5 g/dL 13.0-16.5 [facility] Blood lymphocytes/100 leukoc ytesOrdered By: Bulmaro Curtis on 01-03-2023 Lymphocytes/100 WBC (Bld) 25.7 % 19-41 [facility] Blood monocytes/100 leukocyt esOrdered By: Bulmaro Curtis on 01-03-2023 Monocytes/100 WBC (Bld) 11.3 % 0-10 [facility] Blood platelet mean volumeOr dered By: Bulmaro Curtis on 01-03-2023 Platelet mean volume (Bld) [Entitic vol] 12.2 fL 6.2-12.0 [facility] Determination of erythrocyte mean corpuscular volume (MCV)Ordered By: Bulmaro Curtis on 01-03-2023 MCV (RBC) [Entitic vol] 91.2 fL 80-94 [facility] Hematocrit Auto (Bld) [Volum e fraction][facility] Hematocrit (Bld) [Volume fraction] 48.5 % 40-54 [facility] Laboratory - Chemistry and C hemistry - challengeOrdered By: [facility] 01-[facility]2023 ALP [Catalytic activity/Vol] 117 U/L 45-117 [facility] ALT [Catalytic activity/Vol] 50 U/L 16-61 [facility] CO2 [Moles/Vol] 25.0 mmol/L 21.0-32.0 [facility] Globulin (S) [Mass/Vol] 4.4 g/dL 2.2-4.2 [facility] Urea nitrogen/Creatinine [Mass ratio] 16.5 mg/mg 10-20 [facility] Laboratory - Hematology and Cell countsOrdered By: [facility] 01-03-2023 Erythrocyte distribution width (RBC) [Entitic vol] 47.6 fL 35.1-43.9 [facility] Erythrocyte distribution width (RBC) [Ratio] 14.3 % 11.6-14.6 [facility] Immature granulocytes/100 WBC (Bld) 1.100 % 0.0-0.9 [facility] Comment on above: IG% - Immature Granu locytes (promyelocytes, myelocytes and metamyelocytes) > 1% indicates that a LEFT SHIFT is Present. MCH (RBC) [Entitic mass] 29.1 pg 27.0-32.0 [facility] Nucleated RBC/100 WBC (Bld) [Ratio] 0 % 0-5 [facility] MCHC Auto (RBC) [Mass/Vol]Or dered By: [facility] Ever on 01-03-2023 MCHC (RBC) [Mass/Vol] 32.0 g/dL 32-36 [facility] No Panel InformationOrdered By: Bulmaro Curtis on 01-03-2023 Estimated GFR (MDRD) Amer 72 mL/min >60 [facility] Comment on above: GFR Calc Estimated GFR (MDRD) Non-Af Amer 59 mL/min >60 [facility] Comment on above: Non- GFR Calc Thyroid Stimulating Hormone (TSH) 2.17 uIU/mL 0.358-3.74 [facility] Vitamin D 25-Hydroxy 40.6 ng/mL [facility] Comment on above: Vitamin D 25(OH) Sta tus Range Deficiency <20 ng/mL (50nmol/L) Insufficiency 20 - 30 ng/mL (50 - 75 nmol/L) Sufficiency 30 - 100 ng/mL (75 - 250 nmol/L) Toxicity >100 ng/mL (>250 nmol/L) Platelets bldOrdered By: Bulmaro Curtis on 01-03-2023 Platelets (Bld) [#/Vol] 185 10*3/uL 150-450 [facility] Serum or plasma albumin blaine urement (mass/volume)Ordered By: Bulmaro Curtis on 01-03-2023 Albumin [Mass/Vol] 3.8 g/dL 3.2-5.0 [facility] Serum or plasma albumin/glob ulin mass ratioOrdered By: Bulmaro Curtis 01-03-2023 Albumin/Globulin [Mass ratio] 0.9 {ratio} 0.9-2.4 [facility] Serum or plasma calcium blaine urement (mass/volume)Ordered By: Bulmaro Curtis 01-03-2023 Calcium [Mass/Vol] 9.4 mg/dL 8.5-10.1 [facility] Serum or plasma creatinine m easurement (mass/volume)Ordered By: Bulmaro Curtis 01-03-2023 Creatinine [Mass/Vol] 1.27 mg/dL 0.70-1.30 [facility] Comment on above: The validity of the calculated GFR & GFRAA in patients over 70 years has not been determined. Clinical correlation is essential. Serum or plasma urea nitroge n measurement (mass/volume)Ordered By: Bulmaro Curtis on 01-03-2023 Urea nitrogen [Mass/Vol] 21 mg/dL 7-18 [facility] Thin prep Papanicolaou smear with manual screeningOrdered By: Bulmaro Curtis 01-03-2023 Thin prep Papanicolaou smear with manual screening 21 U/L 15-37 [facility] Thin prep Papanicolaou smear with manual screening 9 5-15 [facility] Whole blood hemoglobin A1c/t otal hemoglobin ratio (mass fraction)Ordered By: Bulmaro Curtis on 01-03-2023 HbA1c (Bld) [Mass fraction] 6.8 % 3.8-5.6 [facility] Comment on above: Normal < 5.7 % Predi abetic 5.7 - 6.4 % Diabetic >or= 6.5 % Please note range changes. Absolute lymphocyte countOrd ered By: Kamari Bah on 12-17-2022 Lymphocytes Auto (Unsp spec) [#/Vol] 1.60 10*3/uL 0.83-4.51 [facility] Basophil percentageOrdered B y: Kamari Bah on 12-17-2022 Basophils/100 WBC (Bld) 0.8 % 0-1 [facility] Eosinophils/100 WBC (Bld) 2.4 % 0-5 [facility] Neutrophils (Bld) [#/Vol] 5.2 10*3/uL 2.0-7.7 [facility] Neutrophils/100 WBC (Bld) 65.4 % 47-70 [facility] WBC (Bld) [#/Vol] 7.9 10*3/uL 4.4-11.0 [facility] Bilirubin [Mass/Vol] 1.60 mg/dL 0.20-1.00 [facility] Comment on above: For patients on eltr ombopag therapy, use of Dimension [place] TBIL is not recommended. Chloride [Moles/Vol] 111 mmol/L 98-107 [facility] Glucose [Mass/Vol] 137 mg/dL 74-106 [facility] Comment on above: Fasting Glucose resu lt greater than or equal to 126 mg/dL suggests DIABETES MELLITUS per A.D.A. criteria. Potassium [Moles/Vol] 4.6 mmol/L 3.5-5.1 [facility] Protein [Mass/Vol] 7.5 g/dL 6.4-8.2 [facility] Sodium [Moles/Vol] 139 mmol/L 136-145 [facility] Blood erythrocytes count (nu mber/volume)Ordered By: Kamari Bah on 12-17-2022 RBC (Bld) [#/Vol] 4.62 10*6/uL 4.6-6.2 [facility] Blood hemoglobin measurement (mass/volume)Ordered By: Kamari Bah on 12-17-2022 Hemoglobin (Bld) [Mass/Vol] 13.6 g/dL 13.0-16.5 [facility] Blood lymphocytes/100 leukoc ytesOrdered By: Kamari Bah on 12-17-2022 Lymphocytes/100 WBC (Bld) 20.2 % 19-41 [facility] Blood monocytes/100 leukocyt esOrdered By: Kamari Bah on 12-17-2022 Monocytes/100 WBC (Bld) 10.4 % 0-10 [facility] Blood platelet mean volumeOr dered By: Kamari Bah on 12-17-2022 Platelet mean volume (Bld) [Entitic vol] 11.7 fL 6.2-12.0 [facility] Determination of erythrocyte mean corpuscular volume (MCV)Ordered By: Kamari Bah on 12-17-2022 MCV (RBC) [Entitic vol] 94.4 fL 80-94 [facility] Hematocrit Auto (Bld) [Volum e fraction]Ordered By: Kamari Bah on 12-17-2022 Hematocrit (Bld) [Volume fraction] 43.6 % 40-54 [facility] Laboratory - Chemistry and C hemistry - challengeOrdered By: Kamari Bah on 12-17-2022 ALP [Catalytic activity/Vol] 99 U/L 45-117 [facility] ALT [Catalytic activity/Vol] 34 U/L 16-61 [facility] CO2 [Moles/Vol] 22.0 mmol/L 21.0-32.0 [facility] Globulin (S) [Mass/Vol] 4.0 g/dL 2.2-4.2 [facility] Urea nitrogen/Creatinine [Mass ratio] 13.1 mg/mg 10-20 [facility] - Hematology and Cell countsOrdered By: Kamari Bah on 12-17-2022 Erythrocyte distribution width (RBC) [Entitic vol] 47.9 fL 35.1-43.9 [facility] Erythrocyte distribution width (RBC) [Ratio] 13.9 % 11.6-14.6 [facility] Immature granulocytes/100 WBC (Bld) 0.800 % 0.0-0.9 [facility] Comment on above: IG% - Immature Granu locytes (promyelocytes, myelocytes and metamyelocytes) > 1% indicates that a LEFT SHIFT is Present. MCH (RBC) [Entitic mass] 29.4 pg 27.0-32.0 [facility] Nucleated RBC/100 WBC (Bld) [Ratio] 0 % 0-5 [facility] MCHC Auto (RBC) [Mass/Vol]Or dered By: Kamari Bah on 12-17-2022 MCHC (RBC) [Mass/Vol] 31.2 g/dL 32-36 [facility] No Panel InformationOrdered By: Kamari Bah on 12-17-2022 Estimated Creatinine Clearance Calc 79.57 ml/min [facility] Estimated GFR (MDRD) Amer 95 mL/min >60 [facility] Comment on above: GFR Calc Estimated GFR (MDRD) Non-Af Amer 79 mL/min >60 [facility] Comment on above: Non- GFR Calc Platelets bldOrdered By: Roseann Bah on 12-17-2022 Platelets (Bld) [#/Vol] 127 10*3/uL 150-450 [facility] Serum or plasma albumin blaine urement (mass/volume)Ordered By: Kamari Bah on 12-17-2022 Albumin [Mass/Vol] 3.5 g/dL 3.2-5.0 [facility] Serum or plasma albumin/glob ulin mass ratioOrdered By: Kamari Bah on 12-17-2022 Albumin/Globulin [Mass ratio] 0.9 {ratio} 0.9-2.4 [facility] Serum or plasma calcium blaine urement (mass/volume)Ordered By: Kamari Bah on 12-17-2022 Calcium [Mass/Vol] 8.8 mg/dL 8.5-10.1 [facility] Serum or plasma creatinine m easurement (mass/volume)Ordered By: Kamari Bah on 12-17-2022 Creatinine [Mass/Vol] 0.99 mg/dL 0.70-1.30 [facility] Comment on above: The validity of the calculated GFR & GFRAA in patients over 70 years has not been determined. Clinical correlation is essential. Serum or plasma urea nitroge n measurement (mass/volume)Ordered By: Kamari Bah on 12-17-2022 Urea nitrogen [Mass/Vol] 13 mg/dL 7-18 [facility] Thin prep Papanicolaou smear with manual screeningOrdered By: Kamari Bah on 12-17-2022 Thin prep Papanicolaou smear with manual screening 32 U/L 15-37 [facility] Thin prep Papanicolaou smear with manual screening 6 5-15 [facility] Absolute lymphocyte countOrd ered By: Dr. Curtis on 06-28-2022 Lymphocytes Auto (Unsp spec) [#/Vol] 1.40 10*3/uL 0.83-4.51 [facility] Basophil percentageOrdered B y: Dr. Curtis on 06-28-2022 Basophils/100 WBC (Bld) 0.8 % 0-1 [facility] Bilirubin [Mass/Vol] 1.20 mg/dL 0.20-1.00 [facility] Comment on above: For patients on eltr ombopag therapy, use of Dimension [place] TBIL is not recommended. Chloride [Moles/Vol] 106 mmol/L 98-107 [facility] Eosinophils/100 WBC (Bld) 1.8 % 0-5 [facility] Glucose [Mass/Vol] 146 mg/dL 74-106 [facility] Comment on above: Fasting Glucose resu lt greater than or equal to 126 mg/dL suggests DIABETES MELLITUS per A.D.A. criteria. Neutrophils (Bld) [#/Vol] 5.5 10*3/uL 2.0-7.7 [facility] Neutrophils/100 WBC (Bld) 69.8 % 47-70 [facility] Potassium [Moles/Vol] 4.0 mmol/L 3.5-5.1 [facility] Protein [Mass/Vol] 7.5 g/dL 6.4-8.2 [facility] Sodium [Moles/Vol] 138 mmol/L 136-145 [facility] WBC (Bld) [#/Vol] 7.8 10*3/uL 4.4-11.0 [facility] Blood erythrocytes count (nu mber/volume)Ordered By: Dr. Curtis on 06-28-2022 RBC (Bld) [#/Vol] 5.00 10*6/uL 4.6-6.2 [facility] Blood hemoglobin measurement (mass/volume)Ordered By: Dr. Curtis on 06-28-2022 Hemoglobin (Bld) [Mass/Vol] 14.5 g/dL 13.0-16.5 [facility] Blood lymphocytes/100 leukoc ytesOrdered By: Dr. Curtis on 06-28-2022 Lymphocytes/100 WBC (Bld) 17.9 % 19-41 [facility] Blood monocytes/100 leukocyt esOrdered By: Dr. Curtis on 06-28-2022 Monocytes/100 WBC (Bld) 9.1 % 0-10 [facility] Blood platelet mean volumeOr dered By: Dr. Curtis on 06-28-2022 Platelet mean volume (Bld) [Entitic vol] 11.6 fL 6.2-12.0 [facility] Determination of erythrocyte mean corpuscular volume (MCV)Ordered By: Dr. Curtis on 06-28-2022 MCV (RBC) [Entitic vol] 90.8 fL 80-94 [facility] Hematocrit Auto (Bld) [Volum e fraction]Ordered By: Dr. Curtis on 06-28-2022 Hematocrit (Bld) [Volume fraction] 45.4 % 40-54 [facility] Laboratory - Chemistry and C hemistry - challengeOrdered By: Dr. Curtis on 06-28-2022 ALP [Catalytic activity/Vol] 93 U/L 45-117 [facility] ALT [Catalytic activity/Vol] 41 U/L 16-61 [facility] CO2 [Moles/Vol] 27.0 mmol/L 21.0-32.0 [facility] Globulin (S) [Mass/Vol] 3.9 g/dL 2.2-4.2 [facility] Urea nitrogen/Creatinine [Mass ratio] 15.7 mg/mg 10-20 [facility] - Hematology and Cell countsOrdered By: Dr. Curtis on 06-28-2022 Erythrocyte distribution width (RBC) [Entitic vol] 46.7 fL 35.1-43.9 [facility] Erythrocyte distribution width (RBC) [Ratio] 14.0 % 11.6-14.6 [facility] Immature granulocytes/100 WBC (Bld) 0.600 % 0.0-0.9 [facility] Comment on above: IG% - Immature Granu locytes (promyelocytes, myelocytes and metamyelocytes) > 1% indicates that a LEFT SHIFT is Present. MCH (RBC) [Entitic mass] 29.0 pg 27.0-32.0 [facility] Nucleated RBC/100 WBC (Bld) [Ratio] 0 % 0-5 [facility] MCHC Auto (RBC) [Mass/Vol]Or dered By: Dr. Curtis on 06-28-2022 MCHC (RBC) [Mass/Vol] 31.9 g/dL 32-36 [facility] No Panel InformationOrdered By: Dr. Curtis on 06-28-2022 Estimated GFR (MDRD) Amer 93 mL/min >60 [facility] Comment on above: GFR Calc Estimated GFR (MDRD) Non-Af Amer 77 mL/min >60 [facility] Comment on above: Non- GFR Calc Thyroid Stimulating Hormone (TSH) 0.73 uIU/mL 0.358-3.74 [facility] Vitamin D 25-Hydroxy 42.9 ng/mL [facility] Comment on above: Vitamin D 25(OH) Sta tus Range Deficiency <20 ng/mL (50nmol/L) Insufficiency 20 - 30 ng/mL (50 - 75 nmol/L) Sufficiency 30 - 100 ng/mL (75 - 250 nmol/L) Toxicity >100 ng/mL (>250 nmol/L) Platelets bldOrdered By: Dr. Curtis on 06-28-2022 Platelets (Bld) [#/Vol] 176 10*3/uL 150-450 [facility] Serum or plasma albumin blaine urement (mass/volume)Ordered By: Dr. Curtis on 06-28-2022 Albumin [Mass/Vol] 3.6 g/dL 3.2-5.0 [facility] Serum or plasma albumin/glob ulin mass ratioOrdered By: Dr. Curtis on 06-28-2022 Albumin/Globulin [Mass ratio] 0.9 {ratio} 0.9-2.4 [facility] Serum or plasma calcium blaine urement (mass/volume)Ordered By: Dr. Curtis on 06-28-2022 Calcium [Mass/Vol] 9.3 mg/dL 8.5-10.1 [facility] Serum or plasma creatinine m easurement (mass/volume)Ordered By: Dr. Curtis on 06-28-2022 Creatinine [Mass/Vol] 1.02 mg/dL 0.70-1.30 [facility] Comment on above: The validity of the calculated GFR & GFRAA in patients over 70 years has not been determined. Clinical correlation is essential. Serum or plasma urea nitroge n measurement (mass/volume)Ordered By: Dr. Curtis on 06-28-2022 Urea nitrogen [Mass/Vol] 16 mg/dL 7-18 [facility] Thin prep Papanicolaou smear with manual screeningOrdered By: Dr. Curtis on 06-28-2022 Thin prep Papanicolaou smear with manual screening 23 U/L 15-37 [facility] Thin prep Papanicolaou smear with manual screening 5 5-15 [facility] INR in Blood by Coagulation assayOrdered By: Dr. Carolina on 05-15-2022 INR Coag (Bld) [Relative time] 1.0 {INR} [facility] - CoagulationOrde red By: Dr. Carolina on 05-15-2022 aPTT Coag (Bld) [Time] 27.6 s 24.1-36.2 [facility] PT Coag (PPP) [Time] 13.2 s 11.7-14.9 [facility] Platelets bldOrdered By: Dr. Carolina on 05-15-2022 Platelets (Bld) [#/Vol] 184 10*3/uL 150-450 [facility] Absolute lymphocyte countOrd ered By: Dr. Curtis on 03-29-2022 Lymphocytes Auto (Unsp spec) [#/Vol] 3.00 10*3/uL 0.83-4.51 [facility] Basophil percentageOrdered B y: Dr. Curtis on 03-29-2022 Basophils/100 WBC (Bld) 0.7 % 0-1 [facility] Bilirubin [Mass/Vol] 1.00 mg/dL 0.20-1.00 [facility] Comment on above: For patients on eltr ombopag therapy, use of [employer] [place] TBIL is not recommended. Chloride [Moles/Vol] 110 mmol/L 98-107 [facility] Eosinophils/100 WBC (Bld) 2.2 % 0-5 [facility] Glucose [Mass/Vol] 147 mg/dL 74-106 [facility] Comment on above: Fasting Glucose resu lt greater than or equal to 126 mg/dL suggests DIABETES MELLITUS per A.D.A. criteria. Neutrophils (Bld) [#/Vol] 6.5 10*3/uL 2.0-7.7 [facility] Neutrophils/100 WBC (Bld) 57.3 % 47-70 [facility] Potassium [Moles/Vol] 4.2 mmol/L 3.5-5.1 [facility] Protein [Mass/Vol] 7.7 g/dL 6.4-8.2 [facility] Sodium [Moles/Vol] 143 mmol/L 136-145 [facility] WBC (Bld) [#/Vol] 11.3 10*3/uL 4.4-11.0 [facility] Blood erythrocytes count (nu mber/volume)Ordered By: Dr. Curtis on 03-29-2022 RBC (Bld) [#/Vol] 5.16 10*6/uL 4.6-6.2 [facility] Blood hemoglobin measurement (mass/volume)Ordered By: Dr. Curtis on 03-29-2022 Hemoglobin (Bld) [Mass/Vol] 15.2 g/dL 13.0-16.5 [facility] Blood lymphocytes/100 leukoc ytesOrdered By: Dr. Curtis on 03-29-2022 Lymphocytes/100 WBC (Bld) 26.7 % 19-41 [facility] Blood monocytes/100 leukocyt esOrdered By: Dr. Curtis on 03-29-2022 Monocytes/100 WBC (Bld) 12.2 % 0-10 [facility] Blood platelet mean volumeOr dered By: Dr. Curtis on 03-29-2022 Platelet mean volume (Bld) [Entitic vol] 12.3 fL 6.2-12.0 [facility] Determination of erythrocyte mean corpuscular volume (MCV)Ordered By: Dr. Curtis on 03-29-2022 MCV (RBC) [Entitic vol] 92.1 fL 80-94 [facility] Hematocrit Auto (Bld) [Volum e fraction]Ordered By: Dr. Curtis on 03-29-2022 Hematocrit (Bld) [Volume fraction] 47.5 % 40-54 [facility] - Chemistry and C hemistry - challengeOrdered By: Dr. Curtis on 03-29-2022 ALP [Catalytic activity/Vol] 114 U/L 45-117 [facility] ALT [Catalytic activity/Vol] 49 U/L 16-61 [facility] CO2 [Moles/Vol] 27.0 mmol/L 21.0-32.0 [facility] Globulin (S) [Mass/Vol] 4.0 g/dL 2.2-4.2 [facility] Urea nitrogen/Creatinine [Mass ratio] 19.0 mg/mg 10-20 [facility] - Hematology and Cell countsOrdered By: Dr. Curtis on 03-29-2022 Erythrocyte distribution width (RBC) [Entitic vol] 47.8 fL 35.1-43.9 [facility] Erythrocyte distribution width (RBC) [Ratio] 14.1 % 11.6-14.6 [facility] Immature granulocytes/100 WBC (Bld) 0.900 % 0.0-0.9 [facility] Comment on above: IG% - Immature Granu locytes (promyelocytes, myelocytes and metamyelocytes) > 1% indicates that a LEFT SHIFT is Present. MCH (RBC) [Entitic mass] 29.5 pg 27.0-32.0 [facility] Nucleated RBC/100 WBC (Bld) [Ratio] 0 % 0-5 [facility] MCHC Auto (RBC) [Mass/Vol]Or dered By: Dr. Curtis on 03-29-2022 MCHC (RBC) [Mass/Vol] 32.0 g/dL 32-36 [facility] No Panel InformationOrdered By: Dr. Curtis on 03-29-2022 Estimated GFR (MDRD) Amer 66 mL/min >60 [facility] Comment on above: GFR Calc Estimated GFR (MDRD) Non-Af Amer 55 mL/min >60 [facility] Comment on above: Non- GFR Calc Thyroid Stimulating Hormone (TSH) 1.27 uIU/mL 0.358-3.74 [facility] Vitamin D 25-Hydroxy 41.3 ng/mL [facility] Comment on above: Vitamin D 25(OH) Sta tus Range Deficiency <20 ng/mL (50nmol/L) Insufficiency 20 - 30 ng/mL (50 - 75 nmol/L) Sufficiency 30 - 100 ng/mL (75 - 250 nmol/L) Toxicity >100 ng/mL (>250 nmol/L) Platelets bldOrdered By: Dr. Curtis on 03-29-2022 Platelets (Bld) [#/Vol] 178 10*3/uL 150-450 [facility] Serum or plasma albumin blaine urement (mass/volume)Ordered By: Dr. Curtis on 03-29-2022 Albumin [Mass/Vol] 3.7 g/dL 3.2-5.0 [facility] Serum or plasma albumin/glob ulin mass ratioOrdered By: Dr. Curtis on 03-29-2022 Albumin/Globulin [Mass ratio] 0.9 {ratio} 0.9-2.4 [facility] Serum or plasma calcium blaine urement (mass/volume)Ordered By: Dr. Curtis on 03-29-2022 Calcium [Mass/Vol] 9.4 mg/dL 8.5-10.1 [facility] Serum or plasma creatinine m easurement (mass/volume)Ordered By: Dr. Curtis on 03-29-2022 Creatinine [Mass/Vol] 1.37 mg/dL 0.70-1.30 [facility] Comment on above: The validity of the calculated GFR & GFRAA in patients over 70 years has not been determined. Clinical correlation is essential. Serum or plasma urea nitroge n measurement (mass/volume)Ordered By: Dr. Curtis on 03-29-2022 Urea nitrogen [Mass/Vol] 26 mg/dL 7-18 [facility] Thin prep Papanicolaou smear with manual screeningOrdered By: Dr. Curtis on 03-29-2022 Thin prep Papanicolaou smear with manual screening 27 U/L 15-37 [facility] Thin prep Papanicolaou smear with manual screening 6 5-15 [facility] Absolute lymphocyte countOrd ered By: Dr. Curtis on 12-28-2021 Lymphocytes Auto (Unsp spec) [#/Vol] 2.73 10*3/uL 0.83-4.51 [facility] Basophil percentageOrdered B y: Dr. Curtis on 12-28-2021 Basophils/100 WBC (Bld) 0.7 % 0-1 [facility] Bilirubin [Mass/Vol] 0.80 mg/dL 0.20-1.00 [facility] Comment on above: For patients on eltr ombopag therapy, use of [employer] [place] TBIL is not recommended. Chloride [Moles/Vol] 106 mmol/L 98-107 [facility] Eosinophils/100 WBC (Bld) 2.4 % 0-5 [facility] Glucose [Mass/Vol] 178 mg/dL 74-106 [facility] Comment on above: Fasting Glucose resu lt greater than or equal to 126 mg/dL suggests DIABETES MELLITUS per A.D.A. criteria. Neutrophils (Bld) [#/Vol] 7.3 10*3/uL 2.0-7.7 [facility] Neutrophils/100 WBC (Bld) 61.4 % 47-70 [facility] Potassium [Moles/Vol] 4.1 mmol/L 3.5-5.1 [facility] Protein [Mass/Vol] 7.9 g/dL 6.4-8.2 [facility] Sodium [Moles/Vol] 141 mmol/L 136-145 [facility] Testosterone [Mass/Vol] 89.91 ng/dL [facility] Comment on above: CENTRAL 90% REFERENC E RANGES MALE AGE <50 197.44 - 669.58 ng/dL MALE AGE > or = 50 187.72 - 684.19 ng/dL FEMALE AGE <50 8.38 - 35.01 ng/dL FEMALE AGE > or = 50 <7.00 - 35.92 ng/dL Effective as of 10/18/20 WBC (Bld) [#/Vol] 11.9 10*3/uL 4.4-11.0 [facility] Blood erythrocytes count (nu mber/volume)Ordered By: Dr. Curtis on 12-28-2021 RBC (Bld) [#/Vol] 5.13 10*6/uL 4.6-6.2 [facility] Blood hemoglobin measurement (mass/volume)Ordered By: Dr. Curtis on 12-28-2021 Hemoglobin (Bld) [Mass/Vol] 15.0 g/dL 13.0-16.5 [facility] Blood lymphocytes/100 leukoc ytesOrdered By: Dr. Curtis on 12-28-2021 Lymphocytes/100 WBC (Bld) 23.0 % 19-41 [facility] Blood monocytes/100 leukocyt esOrdered By: Dr. Curtis on 12-28-2021 Monocytes/100 WBC (Bld) 11.5 % 0-10 [facility] Blood platelet mean volumeOr dered By: Dr. Curtis on 12-28-2021 Platelet mean volume (Bld) [Entitic vol] 12.9 fL 6.2-12.0 [facility] Determination of erythrocyte mean corpuscular volume (MCV)Ordered By: Dr. Curtis on 12-28-2021 MCV (RBC) [Entitic vol] 90.8 fL 80-94 [facility] Hematocrit Auto (Bld) [Volum e fraction]Ordered By: Dr. Curtis on 12-28-2021 Hematocrit (Bld) [Volume fraction] 46.6 % 40-54 [facility] - Chemistry and C hemistry - challengeOrdered By: Dr. Curtis on 12-28-2021 ALP [Catalytic activity/Vol] 149 U/L 45-117 [facility] ALT [Catalytic activity/Vol] 53 U/L 16-61 [facility] CO2 [Moles/Vol] 26.0 mmol/L 21.0-32.0 [facility] Globulin (S) [Mass/Vol] 4.2 g/dL 2.2-4.2 [facility] Urea nitrogen/Creatinine [Mass ratio] 21.6 mg/mg 10-20 [facility] - Hematology and Cell countsOrdered By: Dr. Curtis on 12-28-2021 Erythrocyte distribution width (RBC) [Entitic vol] 47.9 fL 35.1-43.9 [facility] Erythrocyte distribution width (RBC) [Ratio] 14.4 % 11.6-14.6 [facility] Immature granulocytes/100 WBC (Bld) 1.000 % 0.0-0.9 [facility] Comment on above: IG% - Immature Granu locytes (promyelocytes, myelocytes and metamyelocytes) > 1% indicates that a LEFT SHIFT is Present. MCH (RBC) [Entitic mass] 29.2 pg 27.0-32.0 [facility] Nucleated RBC/100 WBC (Bld) [Ratio] 0 % 0-5 [facility] MCHC Auto (RBC) [Mass/Vol]Or dered By: Dr. Curtis on 12-28-2021 MCHC (RBC) [Mass/Vol] 32.2 g/dL 32-36 [facility] No Panel InformationOrdered By: Dr. Curtis on 12-28-2021 Estimated GFR (MDRD) Amer 68 mL/min >60 [facility] Comment on above: GFR Calc Estimated GFR (MDRD) Non-Af Amer 56 mL/min >60 [facility] Comment on above: Non- GFR Calc Prostate Specific Antigen Screen 0.34 ng/mL 0.00-4.00 [facility] Comment on above: This test was perfor med using the TPSA assay method for the[employer] chemistry system. Values obtained with differentassay methods cannot be used interchangably.When changing PSA assays in the course of monitoring apatient, additional sequential testing should be carriedout to confirm baseline values. Thyroid Stimulating Hormone (TSH) 1.57 uIU/mL 0.358-3.74 [facility] Vitamin D 25-Hydroxy 43.2 ng/mL [facility] Comment on above: Vitamin D 25(OH) Sta tus Range Deficiency <20 ng/mL (50nmol/L) Insufficiency 20 - 30 ng/mL (50 - 75 nmol/L) Sufficiency 30 - 100 ng/mL (75 - 250 nmol/L) Toxicity >100 ng/mL (>250 nmol/L) Platelets bldOrdered By: Dr. Curtis on 12-28-2021 Platelets (Bld) [#/Vol] 185 10*3/uL 150-450 [facility] Serum or plasma albumin blaine urement (mass/volume)Ordered By: Dr. Curtis on 12-28-2021 Albumin [Mass/Vol] 3.7 g/dL 3.2-5.0 [facility] Serum or plasma albumin/glob ulin mass ratioOrdered By: Dr. Curtis on 12-28-2021 Albumin/Globulin [Mass ratio] 0.9 {ratio} 0.9-2.4 [facility] Serum or plasma calcium blaine urement (mass/volume)Ordered By: Dr. Curtis on 12-28-2021 Calcium [Mass/Vol] 9.6 mg/dL 8.5-10.1 [facility] Serum or plasma creatinine m easurement (mass/volume)Ordered By: Dr. Curtis on 12-28-2021 Creatinine [Mass/Vol] 1.34 mg/dL 0.70-1.30 [facility] Comment on above: The validity of the calculated GFR & GFRAA in patients over 70 years has not been determined. Clinical correlation is essential. Serum or plasma urea nitroge n measurement (mass/volume)Ordered By: Dr. Curtis on 12-28-2021 Urea nitrogen [Mass/Vol] 29 mg/dL 7-18 [facility] Thin prep Papanicolaou smear with manual screeningOrdered By: Dr. Curtis on 12-28-2021 Thin prep Papanicolaou smear with manual screening 21 U/L 15-37 [facility] Thin prep Papanicolaou smear with manual screening 9 5-15 [facility] Basophil percentageon 2021 Creatinine [Mass/Vol] 1.1 mg/dL 0.70-1.30 [facility] Work Phone: No Panel Informationon 10-06 Bedside Estimated GFR (eGFR) > 60.0000 mL/min >60 [facility] Work Phone: Absolute lymphocyte counton 06-22-2021 Lymphocytes Auto (Unsp spec) [#/Vol] 2.09 10*3/uL 0.83-4.51 [facility] Work Phone: Basophil percentageon 2021 Basophils/100 WBC (Bld) 0.6 % 0-1 [facility] Work Phone: Bilirubin [Mass/Vol] 1.10 mg/dL 0.20-1.00 [facility] Work Phone: Comment on above: For patients on eltr ombopag therapy, use of Dimension [place] TBIL is not recommended. Chloride [Moles/Vol] 103 mmol/L 98-107 [facility] Work Phone: Eosinophils/100 WBC (Bld) 2.1 % 0-5 [facility] Work Phone: Glucose [Mass/Vol] 165 mg/dL 74-106 [facility] Work Phone: Comment on above: Fasting Glucose resu lt greater than or equal to 126 mg/dL suggests DIABETES MELLITUS per A.D.A. criteria. Neutrophils (Bld) [#/Vol] 6.6 10*3/uL 2.0-7.7 [facility] Work Phone: Neutrophils/100 WBC (Bld) 64.5 % 47-70 [facility] Work Phone: Potassium [Moles/Vol] 3.5 mmol/L 3.5-5.1 [facility] Work Phone: Protein [Mass/Vol] 7.8 g/dL 6.4-8.2 [facility] Work Phone: Sodium [Moles/Vol] 137 mmol/L 136-145 [facility] Work Phone: Testosterone [Mass/Vol] 95.80 ng/dL [facility] Work Phone: Comment on above: CENTRAL 90% REFERENC E RANGES MALE AGE <50 197.44 - 669.58 ng/dL MALE AGE > or = 50 187.72 - 684.19 ng/dL FEMALE AGE <50 8.38 - 35.01 ng/dL FEMALE AGE > or = 50 <7.00 - 35.92 ng/dL Effective as of 10/18/20 WBC (Bld) [#/Vol] 10.2 10*3/uL 4.4-11.0 [facility] Work Phone: Blood erythrocytes count (nu mber/volume)on 06-22-2021 RBC (Bld) [#/Vol] 5.50 10*6/uL 4.6-6.2 [facility] Work Phone: Blood hemoglobin measurement (mass/volume)on 06-22-2021 Hemoglobin (Bld) [Mass/Vol] 15.9 g/dL 13.0-16.5 [facility] Work Phone: Blood lymphocytes/100 leukoc yteson 06-22-2021 Lymphocytes/100 WBC (Bld) 20.6 % 19-41 [facility] Work Phone: [phone] Blood monocytes/100 leukocyt eson 06-22-2021 Monocytes/100 WBC (Bld) 11.3 % 0-10 [facility] Work Phone: [phone] Blood platelet mean volumeon 06-22-2021 Platelet mean volume (Bld) [Entitic vol] 11.9 fL 6.2-12.0 [facility] Work Phone: [phone] Determination of erythrocyte mean corpuscular volume (MCV)on 06-22-2021 MCV (RBC) [Entitic vol] 88.4 fL 80-94 [facility] Work Phone: [phone] Hematocrit Auto (Bld) [Volum e fraction]on 06-22-2021 Hematocrit (Bld) [Volume fraction] 48.6 % 40-54 [facility] Work Phone: [phone] Laboratory - Chemistry and C hemistry - challengeon 06-22-2021 ALP [Catalytic activity/Vol] 104 U/L 45-117 [facility] Work Phone: [phone] ALT [Catalytic activity/Vol] 44 U/L 16-61 [facility] Work Phone: [phone] CO2 [Moles/Vol] 28.0 mmol/L 21.0-32.0 [facility] Work Phone: [phone] Globulin (S) [Mass/Vol] 3.9 g/dL 2.2-4.2 [facility] Work Phone: [phone] Urea nitrogen/Creatinine [Mass ratio] 24.3 mg/mg 10-20 [facility] Work Phone: [phone] Laboratory - Hematology and Cell countson 06-22-2021 Erythrocyte distribution width (RBC) [Entitic vol] 44.3 fL 35.1-43.9 [facility] Work Phone: [phone] Erythrocyte distribution width (RBC) [Ratio] 13.6 % 11.6-14.6 [facility] Work Phone: [phone] Immature granulocytes/100 WBC (Bld) 0.900 % 0.0-0.9 [facility] Work Phone: [phone] Comment on above: IG% - Immature Granu locytes (promyelocytes, myelocytes and metamyelocytes) > 1% indicates that a LEFT SHIFT is Present. MCH (RBC) [Entitic mass] 28.9 pg 27.0-32.0 [facility] Work Phone: [phone] Nucleated RBC/100 WBC (Bld) [Ratio] 0 % 0-5 [facility] Work Phone: [phone] MCHC Auto (RBC) [Mass/Vol]on 06-22-2021 MCHC (RBC) [Mass/Vol] 32.7 g/dL 32-36 [facility] Work Phone: No Panel Informationon 06-22 Estimated GFR (MDRD) Amer 81 mL/min >60 [facility] Work Phone: Comment on above: GFR Calc Estimated GFR (MDRD) Non-Af Amer 67 mL/min >60 [facility] Work Phone: Comment on above: Non- GFR Calc Thyroid Stimulating Hormone (TSH) 1.57 uIU/mL 0.358-3.74 [facility] Work Phone: Vitamin D 25-Hydroxy 48.9 ng/mL [facility] Work Phone: [phone] Comment on above: Vitamin D 25(OH) Sta tus Range Deficiency <20 ng/mL (50nmol/L) Insufficiency 20 - 30 ng/mL (50 - 75 nmol/L) Sufficiency 30 - 100 ng/mL (75 - 250 nmol/L) Toxicity >100 ng/mL (>250 nmol/L) Platelets bldon 06-22-2021 Platelets (Bld) [#/Vol] 176 10*3/uL 150-450 [facility] Work Phone: Serum or plasma albumin blaine urement (mass/volume)on 06-22-2021 Albumin [Mass/Vol] 3.9 g/dL 3.2-5.0 [facility] Work Phone: [phone] Serum or plasma albumin/glob ulin mass ratioon 06-22-2021 Albumin/Globulin [Mass ratio] 1.0 {ratio} 0.9-2.4 [facility] Work Phone: [phone] Serum or plasma calcium blaine urement (mass/volume)on 06-22-2021 Calcium [Mass/Vol] 9.1 mg/dL 8.5-10.1 [facility] Work Phone: [phone] Serum or plasma creatinine m easurement (mass/volume)on 06-22-2021 Creatinine [Mass/Vol] 1.15 mg/dL 0.70-1.30 [facility] Work Phone: Comment on above: The validity of the calculated GFR & GFRAA in patients over 70 years has not been determined. Clinical correlation is essential. Serum or plasma urea nitroge n measurement (mass/volume)on 06-22-2021 Urea nitrogen [Mass/Vol] 28 mg/dL 7-18 [facility] Work Phone: [phone] Thin prep Papanicolaou smear with manual screeningon 06-22-2021 Thin prep Papanicolaou smear with manual screening 19 U/L 15-37 [facility] Work Phone: [phone] Thin prep Papanicolaou smear with manual screening 6 5-15 [facility] Work Phone: Vital Signs Date Time Vital Sign Value Performing Clinician Facility 09-15-2024 15:48-0400 Body height 187.[address] Bulmaro Curtis MD Work Phone: [facility] 09-15-2024 15:48-0400 Body weight 113.[address] Bulmaro Curtis MD Work Phone: [facility] 09-15-2024 14:56-0400 Body mass index (BMI) [Ratio] 32.1 kg/m2 Dr. Bulmaro Curtis MD Work Phone: [facility] 09-15-2024 14:56-0400 Body temperature 96.9 [degF] Dr. Bulmaro Curtis MD Work Phone: [facility] 09-15-2024 14:56-0400 Diastolic blood pressure 84 mm[Hg] Dr. Bulmaro Curtis MD Work Phone: 8(554)658-569316 [place] [address] 09-15-2024 14:56-0400 Heart rate 84 /min Dr. Bulmaro Curtis MD Work Phone: 5(999)240-044016 [place] [address] 09-15-2024 14:56-0400 Respiratory rate 18 /min Dr. Bulmaro Curtis MD Work Phone: 2(667)711-920916 [place] [address] 09-15-2024 14:56-0400 SaO2% (BldA) [Mass fraction] 97 % Dr. Bulmaro Curtis MD Work Phone: 1(847)310-829216 [place] [address] 09-15-2024 14:56-0400 Systolic blood pressure 134 mm[Hg] Dr. Bulmaro Curtis MD Work Phone: 9(367)085-368640 [address] 08-19-2024 13:16-0400 Body height 187.[address] Bulmaro Curtis MD Work Phone: 0(418)705-222197 [place] [address] 08-19-2024 13:16-0400 Body mass index (BMI) [Ratio] 34.8 kg/m2 Dr. Bulmaro Curtis MD Work Phone: 5(859)167-825916 [place] [address] 08-19-2024 13:16-0400 Body temperature 97.3 [degF] Dr. Bulmaro Curtis MD Work Phone: 7(211)795-865716 [place] [address] 08-19-2024 13:16-0400 Body weight 123.[address] Bulmaro Curtis MD Work Phone: 2(386)833-223516 [place] [address] 08-19-2024 13:16-0400 Diastolic blood pressure 84 mm[Hg] Dr. Bulmaro Curtis MD Work Phone: 9(649)905-500116 [place] [address] 08-19-2024 13:16-0400 Heart rate 67 /min Dr. Bulmaro Curtis MD Work Phone: 4(434)695-672816 [place] [address] 08-19-2024 13:16-0400 Respiratory rate 16 /min Dr. Bulmaro Curtis MD Work Phone: 6(361)441-505116 [place] [address] 08-19-2024 13:16-0400 SaO2% (BldA) [Mass fraction] 95 % Dr. Bulmaro Curtis MD Work Phone: 1(710)123-022116 [place] [address] 08-19-2024 13:16-0400 Systolic blood pressure 129 mm[Hg] Dr. Bulmaro Curtis MD Work Phone: 6(263)379-633397 [place] [address] 08-18-2024 12:56-0400 Body temperature 96.1 [degF] Dr. Bulmaro Curtis MD Work Phone: 3(593)353-650297 [place] [address] 08-18-2024 12:56-0400 Diastolic blood pressure 65 mm[Hg] Dr. Bulmaro Curtis MD Work Phone: 8(127)005-630297 [place] [address] 08-18-2024 12:56-0400 Heart rate 58 /min Dr. Bulmaro Curtis MD Work Phone: 0(106)361-731697 [place] [address] 08-18-2024 12:56-0400 Respiratory rate 14 /min Dr. Bulmaro Curtis MD Work Phone: 6(058)181-805597 [place] [address] 08-18-2024 12:56-0400 SaO2% (BldA) [Mass fraction] 96 % Dr. Bulmaro Curtis MD Work Phone: 4(810)527-634416 [place] [address] 08-18-2024 12:56-0400 Systolic blood pressure 135 mm[Hg] Dr. Bulmaro Curtis MD Work Phone: 7(171)017-897197 [place] [address] 08-18-2024 09:55-0400 Body weight 123.[address] Bulmaro Curtis MD Work Phone: 6(453)291-021497 [place] [address] 08-18-2024 08:37-0400 Body height 187.[address] Bulmaro Curtis MD Work Phone: 7(055)718-692916 [place] [address] 08-18-2024 08:37-0400 Body mass index (BMI) [Ratio] 35 kg/m2 Dr. Bulmaro Curtis MD Work Phone: 7(566)164-774097 [place] [address] 08-18-2024 08:37-0400 Body temperature 97.1 [degF] Dr. Bulmaro Curtis MD Work Phone: 8(333)715-130097 [place] [address] 08-18-2024 08:37-0400 Body weight 123.[address] Bulmaro Curtis MD Work Phone: 2(756)801-580897 [place] [address] 08-18-2024 08:37-0400 Diastolic blood pressure 74 mm[Hg] Dr. Bulmaro Curtis MD Work Phone: 5(619)257-714597 [place] [address] 08-18-2024 08:37-0400 Heart rate 74 /min Dr. Bulmaro Curtis MD Work Phone: 1(197)659-715597 [place] [address] 08-18-2024 08:37-0400 Respiratory rate 18 /min Dr. Bulmaro Curtis MD Work Phone: 2(084)441-774897 [place] [address] 08-18-2024 08:37-0400 SaO2% (BldA) [Mass fraction] 98 % Dr. Bulmaro Curtis MD Work Phone: 8(992)228-008897 [place] [address] 08-18-2024 08:37-0400 Systolic blood pressure 130 mm[Hg] Dr. Bulmaro Curtis MD Work Phone: 1(641)249-384397 [place] [address] 08-12-2024 13:05-0400 Body height 187.[address] Bulmaro Curtis MD Work Phone: 4(779)503-843997 [place] [address] 08-12-2024 13:05-0400 Body mass index (BMI) [Ratio] 35.1 kg/m2 Dr. Bulmaro Curtis MD Work Phone: 8(008)182-717897 [place] [address] 08-12-2024 13:05-0400 Body temperature 97 [degF] Dr. Bulmaro Curtis MD Work Phone: 2(883)296-149797 [place] [address] 08-12-2024 13:05-0400 Body weight [address] Bulmaro Curtis MD Work Phone: 1(613)339-635997 [place] [address] 08-12-2024 13:05-0400 Diastolic blood pressure 85 mm[Hg] Dr. Bulmaro Curtis MD Work Phone: 6(232)005-068116 [place] [address] 08-12-2024 13:05-0400 Heart rate 90 /min Dr. Bulmaro Curtis MD Work Phone: 1(769)004-152797 [place] [address] 08-12-2024 13:05-0400 Respiratory rate 18 /min Dr. Bulmaro Curtis MD Work Phone: 1(891)962-460297 [place] [address] 08-12-2024 13:05-0400 SaO2% (BldA) [Mass fraction] 92 % Dr. Bulmaro Curtis MD Work Phone: 9(440)839-256197 [place] [address] 08-12-2024 13:05-0400 Systolic blood pressure 130 mm[Hg] Dr. Bulmaro Curtis MD Work Phone: 3(320)471-908497 [place] [address] 08-10-2024 13:22-0400 Diastolic blood pressure 54 mm[Hg] Dr. Bulmaro Curtis MD Work Phone: 0(317)967-897297 [place] [address] 08-10-2024 13:22-0400 Heart rate 65 /min Dr. Bulmaro Curtis MD Work Phone: 6(474)306-766397 [place] [address] 08-10-2024 13:22-0400 Systolic blood pressure 114 mm[Hg] Dr. Bulmaro Curtis MD Work Phone: 1(400)957-133897 [place] [address] 08-10-2024 09:35-0400 Body weight 124.[address] Bulmaro Curtis MD Work Phone: 8(465)264-651597 [place] [address] 08-10-2024 08:46-0400 Body height 187.[address] Bulmaro Curtis MD Work Phone: 9(665)160-343597 [place] [address] 08-10-2024 08:46-0400 Body mass index (BMI) [Ratio] 35.2 kg/m2 Dr. Bulmaro Curtis MD Work Phone: 9(219)084-915097 [place] [address] 08-10-2024 08:46-0400 Body temperature 97.2 [degF] Dr. Bulmaro Curtis MD Work Phone: 5(075)233-743397 [place] [address] 08-10-2024 08:46-0400 Body weight 124.[address] Bulmaro Curtis MD Work Phone: 4(030)687-209697 [place] [address] 08-10-2024 08:46-0400 Diastolic blood pressure 69 mm[Hg] Dr. Bulmaro Curtis MD Work Phone: 3(351)817-470497 [place] [address] 08-10-2024 08:46-0400 Heart rate 68 /min Dr. Bulmaro Curtis MD Work Phone: 4(000)313-695897 [place] [address] 08-10-2024 08:46-0400 Respiratory rate 18 /min Dr. Bulmaro Curtis MD Work Phone: 5(781)146-267097 [place] [address] 08-10-2024 08:46-0400 SaO2% (BldA) [Mass fraction] 97 % Dr. Bulmaro Curtis MD Work Phone: 0(738)951-371397 [place] [address] 08-10-2024 08:46-0400 Systolic blood pressure 112 mm[Hg] Dr. Bulmaro Curtis MD Work Phone: 0(760)814-496697 [place] [address] 08-05-2024 12:03-0400 Body height 187.[address] Bulmaro Curtis MD Work Phone: 3(630)884-307597 [place] [address] 08-05-2024 12:03-0400 Body mass index (BMI) [Ratio] 35.4 kg/m2 Dr. Bulmaro Curtis MD Work Phone: 9(281)917-341997 [place] [address] 08-05-2024 12:03-0400 Body temperature 96.6 [degF] Dr. Bulmaro Curtis MD Work Phone: 7(890)610-999397 [place] [address] 08-05-2024 12:03-0400 Body weight 125.[address] Bulmaro Curtis MD Work Phone: 3(356)599-357197 [place] [address] 08-05-2024 12:03-0400 Diastolic blood pressure 73 mm[Hg] Dr. Bulmaro Curtis MD Work Phone: 5(635)240-025197 [place] [address] 08-05-2024 12:03-0400 Heart rate 82 /min Dr. Bulmaro Curtis MD Work Phone: 7(539)206-128797 [place] [address] 08-05-2024 12:03-0400 Respiratory rate 16 /min Dr. Bulmaro Curtis MD Work Phone: 4(823)590-916216 [place] [address] 08-05-2024 12:03-0400 SaO2% (BldA) [Mass fraction] 91 % Dr. Bulmaro Curtis MD Work Phone: 1(003)756-389116 [place] [address] 08-05-2024 12:03-0400 Systolic blood pressure 123 mm[Hg] Dr. Bulmaro Curtis MD Work Phone: 5(127)830-355997 [place] [address] 08-03-2024 10:01-0400 Body weight 126.[address] Bulmaro Curtis MD Work Phone: 3(656)682-465597 [place] [address] 08-03-2024 08:35-0400 Body mass index (BMI) [Ratio] 35.6 kg/m2 Dr. Bulmaro Curtis MD Work Phone: 4(011)089-636797 [place] [address] 08-03-2024 08:35-0400 Body temperature 97 [degF] Dr. Bulmaro Curtis MD Work Phone: 8(848)707-050797 [place] [address] 08-03-2024 08:35-0400 Body weight 126.[address] Bulmaro Curtis MD Work Phone: 8(100)191-964797 [place] [address] 08-03-2024 08:35-0400 Diastolic blood pressure 69 mm[Hg] Dr. Bulmaro Curtis MD Work Phone: 6(233)278-692097 [place] [address] 08-03-2024 08:35-0400 Heart rate 77 /min Dr. Bulmaro Curtis MD Work Phone: 9(190)445-991097 [place] [address] 08-03-2024 08:35-0400 Respiratory rate 18 /min Dr. Bulmaro Curtis MD Work Phone: 6(067)363-930297 [place] [address] 08-03-2024 08:35-0400 SaO2% (BldA) [Mass fraction] 97 % Dr. Bulmaro Curtis MD Work Phone: 2(964)789-077097 [place] [address] 08-03-2024 08:35-0400 Systolic blood pressure 125 mm[Hg] Dr. Bulmaro Curtis MD Work Phone: 5(427)129-103997 [place] [address] 07-31-2024 12:12-0400 Body temperature 96.5 [degF] Dr. Bulmaro Curtis MD Work Phone: 8(164)958-120797 [place] [address] 07-31-2024 12:12-0400 Diastolic blood pressure 68 mm[Hg] Dr. Bulmaro Curtis MD Work Phone: [facility] 07-31-2024 12:12-0400 Heart rate 65 /min Dr. Bulmaro Curtis MD Work Phone: [facility] 07-31-2024 12:12-0400 Respiratory rate 16 /min Dr. Bulmaro Curtis MD Work Phone: 5(027)608-777516 [place] [address] 07-31-2024 12:12-0400 SaO2% (BldA) [Mass fraction] 95 % Dr. Bulmaro Curtis MD Work Phone: 0(725)774-391497 [place] [address] 07-31-2024 12:12-0400 Systolic blood pressure 121 mm[Hg] Dr. Bulmaro Curtis MD Work Phone: 7(973)843-648997 [place] [address] 07-31-2024 09:52-0400 Body mass index (BMI) [Ratio] 35.4 kg/m2 Dr. Bulmaro Curtis MD Work Phone: 5(897)331-159997 [place] [address] 07-29-2024 09:23-0400 Body mass index (BMI) [Ratio] 35.6 kg/m2 Dr. Bulmaro Curtis MD Work Phone: 5(517)451-689616 [place] [address] 07-29-2024 09:23-0400 Body temperature 96.7 [degF] Dr. Bulmaro Curtis MD Work Phone: 6(680)039-706897 [place] [address] 07-29-2024 09:23-0400 Body weight 126.[address] Bulmaro Curtis MD Work Phone: 0(435)240-647497 [place] [address] 07-29-2024 09:23-0400 Diastolic blood pressure 85 mm[Hg] Dr. Bulmaro Curtis MD Work Phone: 3(213)384-447216 [place] [address] 07-29-2024 09:23-0400 Heart rate 86 /min Dr. Bulmaro Curtis MD Work Phone: 0(146)930-467416 [place] [address] 07-29-2024 09:23-0400 Respiratory rate 18 /min Dr. Bulmaro Curtis MD Work Phone: 7(561)148-025516 [place] [address] 07-29-2024 09:23-0400 SaO2% (BldA) [Mass fraction] 93 % Dr. Bulmaro Curtis MD Work Phone: [facility] 07-29-2024 09:23-0400 Systolic blood pressure 134 mm[Hg] Dr. Bulmaro Curtis MD Work Phone: 2(988)850-895416 [place] [address] 07-27-2024 08:40-0400 Body mass index (BMI) [Ratio] 36.1 kg/m2 Dr. Bulmaro Curtis MD Work Phone: 1(608)434-202016 [place] [address] 07-27-2024 08:40-0400 Body temperature 98 [degF] Dr. Bulmaro Curtis MD Work Phone: 0(733)149-486516 [place] [address] 07-27-2024 08:40-0400 Body weight 127.[address] Bulmaro Curtis MD Work Phone: 7(871)761-437397 [place] [address] 07-27-2024 08:40-0400 Diastolic blood pressure 81 mm[Hg] Dr. Bulmaro Curtis MD Work Phone: 3(121)409-399497 [place] [address] 07-27-2024 08:40-0400 Heart rate 84 /min Dr. Bulmaro Curtis MD Work Phone: 4(600)321-925997 [place] [address] 07-27-2024 08:40-0400 Respiratory rate 18 /min Dr. Bulmaro Curtis MD Work Phone: 2(386)579-410916 [place] [address] 07-27-2024 08:40-0400 SaO2% (BldA) [Mass fraction] 92 % Dr. Bulmaro Curtis MD Work Phone: 9(736)183-064716 [place] [address] 07-27-2024 08:40-0400 Systolic blood pressure 127 mm[Hg] Dr. Bulmaro Curtis MD Work Phone: 0(960)655-070440 [address] 07-22-2024 09:02-0400 Body mass index (BMI) [Ratio] 37.1 kg/m2 Dr. Bulmaro Curtis MD Work Phone: 9(639)700-842716 [place] [address] 07-22-2024 09:02-0400 Body temperature 97.1 [degF] Dr. Bulmaro Curtis MD Work Phone: 1(164)941-917040 [address] 07-22-2024 09:02-0400 Body weight 131.[address] Bulmaro Curtis MD Work Phone: [facility] 07-22-2024 09:02-0400 Diastolic blood pressure 80 mm[Hg] Dr. Bulmaro Curtis MD Work Phone: [facility] 07-22-2024 09:02-0400 Heart rate 81 /min Dr. Bulmaro Curtis MD Work Phone: [facility] 07-22-2024 09:02-0400 Respiratory rate 18 /min Dr. Bulmaro Curtis MD Work Phone: 2(788)375-490416 [place] [address] 07-22-2024 09:02-0400 SaO2% (BldA) [Mass fraction] 94 % Dr. Bulmaro Curtis MD Work Phone: 2(691)104-361216 [place] [address] 07-22-2024 09:02-0400 Systolic blood pressure 147 mm[Hg] Dr. Bulmaro Curtis MD Work Phone: 4(373)166-089516 [place] [address] 07-20-2024 08:44-0400 Body mass index (BMI) [Ratio] 37.1 kg/m2 Dr. Bulmaro Curtis MD Work Phone: 4(648)468-789716 [place] [address] 07-20-2024 08:44-0400 Body temperature 98.1 [degF] Dr. Bulmaro Curtis MD Work Phone: 6(667)841-520716 [place] [address] 07-20-2024 08:44-0400 Body weight 131.[address] Bulmaro Curtis MD Work Phone: [facility] 07-20-2024 08:44-0400 Diastolic blood pressure 75 mm[Hg] Dr. Bulmaro Curtis MD Work Phone: 9(204)748-247016 [place] [address] 07-20-2024 08:44-0400 Heart rate 80 /min Dr. Bulmaro Curtis MD Work Phone: 8(019)401-623016 [place] [address] 07-20-2024 08:44-0400 Respiratory rate 18 /min Dr. Bulmaro Curtis MD Work Phone: [facility] 07-20-2024 08:44-0400 SaO2% (BldA) [Mass fraction] 97 % Dr. Bulmaro Curtis MD Work Phone: 8(060)495-872116 [place] [address] 07-20-2024 08:44-0400 Systolic blood pressure 132 mm[Hg] Dr. Bulmaro Curtis MD Work Phone: 5(475)842-362697 [place] [address] 07-15-2024 10:47-0400 Body height 187.[address] Bulmaro Curtis MD Work Phone: 9(446)064-514197 [place] [address] 07-15-2024 10:47-0400 Body weight [address] Bulmaro Curtis MD Work Phone: 6(580)039-580897 [place] [address] 07-15-2024 09:13-0400 Body mass index (BMI) [Ratio] 37.9 kg/m2 Dr. Bulmaro Curtis MD Work Phone: 7(312)472-522097 [place] [address] 07-15-2024 09:13-0400 Body temperature 96.5 [degF] Dr. Bulmaro Curtis MD Work Phone: 1(630)623-403597 [place] [address] 07-15-2024 09:13-0400 Body weight [address] Bulmaro Curtis MD Work Phone: 7(363)251-781697 [place] [address] 07-15-2024 09:13-0400 Diastolic blood pressure 69 mm[Hg] Dr. Bulmaro Curtis MD Work Phone: 7(986)075-823697 [place] [address] 07-15-2024 09:13-0400 Heart rate 78 /min Dr. Bulmaro Curtis MD Work Phone: 7(428)163-506497 [place] [address] 07-15-2024 09:13-0400 Respiratory rate 18 /min Dr. Bulmaro Curtis MD Work Phone: 2(727)161-807316 [place] [address] 07-15-2024 09:13-0400 SaO2% (BldA) [Mass fraction] 97 % Dr. Bulmaro Curtis MD Work Phone: 8(982)799-308516 [place] [address] 07-15-2024 09:13-0400 Systolic blood pressure 102 mm[Hg] Dr. Bulmaro Curtis MD Work Phone: 0(069)104-002197 [place] [address] 07-13-2024 13:57-0400 Body temperature 96.3 [degF] Dr. Bulmaro Curtis MD Work Phone: [facility] 07-13-2024 13:57-0400 Diastolic blood pressure 66 mm[Hg] Dr. Bulmaro Curtis MD Work Phone: [facility] 07-13-2024 13:57-0400 Heart rate 64 /min Dr. Bulmaro Curtis MD Work Phone: [facility] 07-13-2024 13:57-0400 Respiratory rate 16 /min Dr. Bulmaro Curtis MD Work Phone: 5(990)303-932116 [place] [address] 07-13-2024 13:57-0400 SaO2% (BldA) [Mass fraction] 93 % Dr. Bulmaro Curtis MD Work Phone: 2(155)133-057516 [place] [address] 07-13-2024 13:57-0400 Systolic blood pressure 123 mm[Hg] Dr. Bulmaro Curtis MD Work Phone: 2(298)989-151716 [place] [address] 07-13-2024 10:28-0400 Body mass index (BMI) [Ratio] 37.9 kg/m2 Dr. Bulmaro Curtis MD Work Phone: 6(208)[phone] [place] [address] 07-13-2024 10:28-0400 Body temperature 98.1 [degF] Dr. Bulmaro Curtis MD Work Phone: [facility] 07-13-2024 10:28-0400 Body weight 133.[address] Bulmaro Curtis MD Work Phone: [facility] 07-13-2024 10:28-0400 Diastolic blood pressure 73 mm[Hg] Dr. Bulmaro Curtis MD Work Phone: [facility] 07-13-2024 10:28-0400 Heart rate 80 /min Dr. Bulmaro Curtis MD Work Phone: 8(989)028-791616 [place] [address] 07-13-2024 10:28-0400 Respiratory rate 18 /min Dr. Bulmaro Curtis MD Work Phone: [facility] 07-13-2024 10:28-0400 SaO2% (BldA) [Mass fraction] 92 % Dr. Bulmaro Curtis MD Work Phone: [facility] 07-13-2024 10:28-0400 Systolic blood pressure 127 mm[Hg] Dr. Bulmaro Curtis MD Work Phone: 0(036)[phone] [place] [address] 07-09-2024 12:23-0400 Body temperature 97.2 [degF] Dr. Bulmaro Curtis MD Work Phone: 3(839)996-378116 [place] [address] 07-09-2024 12:23-0400 Diastolic blood pressure 78 mm[Hg] Dr. Bulmaro Curtis MD Work Phone: 7(257)859-546616 [place] [address] 07-09-2024 12:23-0400 Heart rate 80 /min Dr. Bulmaro Curtis MD Work Phone: 2(070)994-901397 [place] [address] 07-09-2024 12:23-0400 Respiratory rate 16 /min Dr. Bulmaro Curtis MD Work Phone: 2(235)842-570097 [place] [address] 07-09-2024 12:23-0400 SaO2% (BldA) [Mass fraction] 94 % Dr. Bulmaro Curtis MD Work Phone: 9(248)537-213816 [place] [address] 07-09-2024 12:23-0400 Systolic blood pressure 155 mm[Hg] Dr. Bulmaro Curtis MD Work Phone: 7(463)079-170597 [place] [address] 07-09-2024 10:02-0400 Body height 187.[address] Bulmaro Curtis MD Work Phone: 4(259)800-862916 [place] [address] 07-09-2024 10:02-0400 Body mass index (BMI) [Ratio] 38.7 kg/m2 Dr. Bulmaro Curtis MD Work Phone: 9(134)687-287116 [place] [address] 07-09-2024 10:02-0400 Body weight [address] Bulmaro Curtis MD Work Phone: 5(267)952-231016 [place] [address] 07-08-2024 09:52-0400 Body weight 139.[address] Bulmaro Curtis MD Work Phone: 2(434)136-846916 [place] [address] 07-08-2024 09:20-0400 Body mass index (BMI) [Ratio] 38.9 kg/m2 Dr. Bulmaro Curtis MD Work Phone: [facility] 07-08-2024 09:20-0400 Body temperature 96.9 [degF] Dr. Bulmaro Curtis MD Work Phone: 9(376)835-987816 [place] [address] 07-08-2024 09:20-0400 Body weight 137.[address] Bulmaro Curtis MD Work Phone: 3(864)030-796297 [place] [address] 07-08-2024 09:20-0400 Diastolic blood pressure 71 mm[Hg] Dr. Bulmaro Curtis MD Work Phone: 6(016)695-008297 [place] [address] 07-08-2024 09:20-0400 Heart rate 58 /min Dr. Bulmaro Curtis MD Work Phone: 7(547)812-340197 [place] [address] 07-08-2024 09:20-0400 Respiratory rate 16 /min Dr. Bulmaro Curtis MD Work Phone: 0(164)917-189297 [place] [address] 07-08-2024 09:20-0400 SaO2% (BldA) [Mass fraction] 93 % Dr. Bulmaro Curtis MD Work Phone: 4(098)218-365797 [place] [address] 07-08-2024 09:20-0400 Systolic blood pressure 116 mm[Hg] Dr. Bulmaro Curtis MD Work Phone: 9(574)308-048397 [place] [address] 07-06-2024 13:42-0400 Diastolic blood pressure 67 mm[Hg] Dr. Bulmaro Curtis MD Work Phone: 5(213)926-551197 [place] [address] 07-06-2024 13:42-0400 Heart rate 74 /min Dr. Bulmaro Curtis MD Work Phone: 9(207)573-999997 [place] [address] 07-06-2024 13:42-0400 Systolic blood pressure 142 mm[Hg] Dr. Bulmaro Curtis MD Work Phone: 1(142)208-430197 [place] [address] 07-06-2024 08:23-0400 Body mass index (BMI) [Ratio] 39.4 kg/m2 Dr. Bulmaro Curtis MD Work Phone: 2(022)451-065197 [place] [address] 07-06-2024 08:23-0400 Body temperature 98.2 [degF] Dr. Bulmaro Curtis MD Work Phone: [facility] 07-06-2024 08:23-0400 Body weight 139.[address] Bulmaro Curtis MD Work Phone: 1(347)532-575016 [place] [address] 07-06-2024 08:23-0400 Diastolic blood pressure 72 mm[Hg] Dr. Bulmaro Cutris MD Work Phone: 2(470)064-744116 [place] [address] 07-06-2024 08:23-0400 Heart rate 66 /min Dr. Bulmaro Curtis MD Work Phone: 8(404)323-389197 [place] [address] 07-06-2024 08:23-0400 Respiratory rate 18 /min Dr. Bulmaro Curtis MD Work Phone: 7(748)842-004197 [place] [address] 07-06-2024 08:23-0400 SaO2% (BldA) [Mass fraction] 94 % Dr. Bulmaro Curtis MD Work Phone: 8(269)321-769897 [place] [address] 07-06-2024 08:23-0400 Systolic blood pressure 158 mm[Hg] Dr. Bulmaro Curtis MD Work Phone: 2(912)010-241297 [place] [address] 07-02-2024 14:09-0400 Body temperature 97.6 [degF] Dr. Bulmaro Curtis MD Work Phone: 7(691)475-596197 [place] [address] 07-02-2024 14:09-0400 Diastolic blood pressure 84 mm[Hg] Dr. Bulmaro Curtis MD Work Phone: 4(031)767-546797 [place] [address] 07-02-2024 14:09-0400 Heart rate 70 /min Dr. Bulmaro Curtis MD Work Phone: [facility] 07-02-2024 14:09-0400 Respiratory rate 16 /min Dr. Bulmaro Curtis MD Work Phone: 7(168)136-848716 [place] [address] 07-02-2024 14:09-0400 SaO2% (BldA) [Mass fraction] 94 % Dr. Bulmaro Curtis MD Work Phone: 0(202)354-275816 [place] [address] 07-02-2024 14:09-0400 Systolic blood pressure 151 mm[Hg] Dr. Bulmaro Curtis MD Work Phone: 8(163)932-798016 [place] [address] 07-02-2024 14:00-0400 Heart rate 56 /min Dr. Bulmaro Curtis MD Work Phone: 0(466)976-545116 [place] [address] 07-02-2024 14:00-0400 Respiratory rate 20 /min Dr. Bulmaro Curtis MD Work Phone: 2(372)051-900216 [place] [address] 07-02-2024 13:15-0400 Inhaled oxygen flow rate 2 L/min Dr. Bulmaro Curtis MD Work Phone: 1(082)221-422116 [place] [address] 07-02-2024 08:54-0400 Body height 187.[address] Bulmaro Curtis MD Work Phone: 0(363)600-353716 [place] [address] 07-02-2024 08:54-0400 Body mass index (BMI) [Ratio] 39.9 kg/m2 Dr. Bulmaro Curtis MD Work Phone: 4(163)480-610916 [place] [address] 07-02-2024 08:54-0400 Body weight [address] Bulmaro Curtis MD Work Phone: 7(115)235-157616 [place] [address] 06-29-2024 10:27-0400 Body mass index (BMI) [Ratio] 40.2 kg/m2 Dr. Bulmaro Curtis MD Work Phone: 1(355)725-214916 [place] [address] 06-29-2024 10:27-0400 Body temperature 97.9 [degF] Dr. Bulmaro Curtis MD Work Phone: 2(742)415-861616 [place] [address] 06-29-2024 10:27-0400 Body weight 142.[address] Bulmaro Curtis MD Work Phone: 7(511)399-219516 [place] [address] 06-29-2024 10:27-0400 Diastolic blood pressure 72 mm[Hg] Dr. Bulmaro Curtis MD Work Phone: 0(824)065-540616 [place] [address] 06-29-2024 10:27-0400 Heart rate 58 /min Dr. Bulmaro Curtis MD Work Phone: 5(968)699-704816 [place] [address] 06-29-2024 10:27-0400 Respiratory rate 16 /min Dr. Bulmaro Curtis MD Work Phone: 5(010)223-249916 [place] [address] 06-29-2024 10:27-0400 SaO2% (BldA) [Mass fraction] 94 % Dr. Bulmaro Curtis MD Work Phone: [facility] 06-29-2024 10:27-0400 Systolic blood pressure 149 mm[Hg] Dr. Bulmaro Curtis MD Work Phone: [facility] 06-11-2024 08:25-0400 Diastolic blood pressure 54 mm[Hg] Franco Sanchez BLANCA Work Phone: [facility] 06-11-2024 08:25-0400 Heart rate 82 /min Franco Sanchez BLANCA Work Phone: [facility] 06-11-2024 08:25-0400 Systolic blood pressure 148 mm[Hg] Franco Sanchez BLANCA Work Phone: [facility] 06-03-2024 09:39-0400 Body mass index (BMI) [Ratio] 40.8 kg/m2 Dr. Bulmaro Curtis MD Work Phone: [facility] 06-03-2024 09:39-0400 Body weight 144.[address] Bulmaro Curtis MD Work Phone: [facility] 06-03-2024 09:39-0400 Diastolic blood pressure 63 mm[Hg] Dr. Bulmaro Curtis MD Work Phone: [facility] 06-03-2024 09:39-0400 Heart rate 87 /min Dr. Bulmaro Curtis MD Work Phone: [facility] 06-03-2024 09:39-0400 Respiratory rate 18 /min Dr. Bulmaro Curtis MD Work Phone: [facility] 06-03-2024 09:39-0400 SaO2% (BldA) [Mass fraction] 92 % Dr. Bulmaro Curtis MD Work Phone: [facility] 06-03-2024 09:39-0400 Systolic blood pressure 136 mm[Hg] Dr. Bulmaro Curtis MD Work Phone: [facility] 06-02-2024 15:39-0400 Body mass index (BMI) [Ratio] 40.8 kg/m2 Dr. Bulmaro Curtis MD Work Phone: [facility] 06-02-2024 15:39-0400 Body temperature 98.1 [degF] Dr. Bulmaro Curtis MD Work Phone: [facility] 06-02-2024 15:39-0400 Body weight 144.[address] Bulmaro Curtis MD Work Phone: [facility] 06-02-2024 15:39-0400 Diastolic blood pressure 69 mm[Hg] Dr. Bulmaro Curtis MD Work Phone: 9(412)021-072516 [place] [address] 06-02-2024 15:39-0400 Heart rate 77 /min Dr. Bulmaro Curtis MD Work Phone: 4(654)568-063516 [place] [address] 06-02-2024 15:39-0400 Respiratory rate 18 /min Dr. Bulmaro Curtis MD Work Phone: 4(227)565-577616 [place] [address] 06-02-2024 15:39-0400 SaO2% (BldA) [Mass fraction] 93 % Dr. Bulmaro Curtis MD Work Phone: [facility] 06-02-2024 15:39-0400 Systolic blood pressure 131 mm[Hg] Dr. Bulmaro Curtis MD Work Phone: [facility] 05-26-2024 13:00-0500 Body mass index (BMI) [Ratio] 40 kg/m2 Dr. Bulmaro Curtis MD Work Phone: [facility] 05-26-2024 13:00-0500 Body temperature 97.9 [degF] Dr. Bulmaro Curtis MD Work Phone: [facility] 05-26-2024 13:00-0500 Body weight 141.[address] Bulmaro Curtis MD Work Phone: [facility] 05-26-2024 13:00-0500 Diastolic blood pressure 80 mm[Hg] Dr. Bulmaro Curtis MD Work Phone: [facility] 05-26-2024 13:00-0500 Heart rate 73 /min Dr. Bulmaro Curtis MD Work Phone: [facility] 05-26-2024 13:00-0500 Respiratory rate 18 /min Dr. Bulmaro Curtis MD Work Phone: [facility] 05-26-2024 13:00-0500 SaO2% (BldA) [Mass fraction] 91 % Dr. Bulmaro Curtis MD Work Phone: [facility] 05-26-2024 13:00-0500 Systolic blood pressure 124 mm[Hg] Dr. Bulmaro Curtis MD Work Phone: [facility] 05-08-2024 09:57-0500 Body temperature 98.49 [degF] Simon Packer MD Work Phone: [facility] 05-08-2024 09:57-0500 Diastolic blood pressure 53 mm[Hg] Simon Packer MD Work Phone: [facility] 05-08-2024 09:57-0500 Heart rate 75 /min Simon Packer MD Work Phone: [facility] 05-08-2024 09:57-0500 Respiratory rate 16 /min Simon Packer MD Work Phone: [facility] 05-08-2024 09:57-0500 SaO2% (BldA) [Mass fraction] 93 % Simon Packer MD Work Phone: [facility] 05-08-2024 09:57-0500 Systolic blood pressure 132 mm[Hg] [facility] 04-28-2024 14:34-0500 Heart rate 81 /min Evieshirley Blank SIGNAL TOWER DIRECTOR[employer] Work Phone: [facility] 04-28-2024 12:56-0500 Body height 188 cm Evieshirley Blank SIGNAL TOWER DIRECTOR-[employer] Work Phone: [facility] 04-28-2024 12:56-0500 Body mass index (BMI) [Ratio] 40.93 kg/m2 Evie Markiv SIGNAL TOWER DIRECTOR-[employer] Work Phone: [facility] 04-28-2024 12:56-0500 Body weight 144.61 kg Evie Blank APRN-SALES REPRESENT[employer] Work Phone: [facility] 04-28-2024 12:56-0500 Diastolic blood pressure 69 mm[Hg] Evie Blank APRN-[employer] Work Phone: [facility] 04-28-2024 12:56-0500 Heart rate 90 /min Evie Blank APRN-[employer] Work Phone: [facility] 04-28-2024 12:56-0500 Respiratory rate 16 /min Evie Blank APRN-[employer] Work Phone: [facility] 04-28-2024 12:56-0500 SaO2% (BldA) [Mass fraction] 96 % Evie Blank APRNAres Commercial Real Estate Corporation[employer]ALES REPRESENTATIVE [employer] Work Phone: [facility] 04-28-2024 12:56-0500 Systolic blood pressure 131 mm[Hg] Evie Blank APRN-[employer] Work Phone: [facility] 04-28-2024 11:40-0500 Body temperature 98.49 [degF] Simon Packer MD Work Phone: [facility] 04-28-2024 11:40-0500 Body weight 144.2 kg Simon Packer MD Work Phone: [facility] 04-28-2024 11:40-0500 Heart rate 82 /min Simon Packer MD Work Phone: [facility] 04-28-2024 11:40-0500 SaO2% (BldA) [Mass fraction] 97 % Simon Packer MD Work Phone: [facility] 07-31-2023 07:26-0400 Body height 187.[address] Bulmaro Curtis Work Phone: [facility] 07-31-2023 07:26-0400 Body mass index (BMI) [Ratio] 42 kg/m2 Dr. Bulmaro Curtis Work Phone: [facility] 07-31-2023 07:26-0400 Body temperature 98 [degF] Dr. Bulmaro Curtis Work Phone: [facility] 07-31-2023 07:26-0400 Body weight 148.[address] Bulmaro Curtis Work Phone: [facility] 07-31-2023 07:26-0400 Diastolic blood pressure 83 mm[Hg] Dr. Bulmaro Curtis Work Phone: 3(952)187-678016 [place] [address] 07-31-2023 07:26-0400 Heart rate 82 /min Dr. Bulmaro Curtis Work Phone: 9(245)602-881940 [address] 07-31-2023 07:26-0400 Respiratory rate 22 /min Dr. Bulmaro Curtis Work Phone: 0(496)668-456040 [address] 07-31-2023 07:26-0400 SaO2% (BldA) [Mass fraction] 94 % Dr. Bulmaro Curtis Work Phone: [facility] 07-31-2023 07:26-0400 Systolic blood pressure 146 mm[Hg] Dr. Bulmaro Curtis Work Phone: 6(437)804-802640 [address] 03-14-2023 06:27-0500 Body height 187.[address] Bulmaro Curtis Work Phone: [facility] 03-14-2023 06:27-0500 Body mass index (BMI) [Ratio] 27.6 kg/m2 Dr. Bulmaro Curtis Work Phone: [facility] 03-14-2023 06:27-0500 Body temperature 96.9 [degF] Dr. Bulmaro Curtis Work Phone: 0(593)394-463716 [place] [address] 03-14-2023 06:27-0500 Body weight 97.[address] Bulmaro Curtis Work Phone: [facility] 03-14-2023 06:27-0500 Diastolic blood pressure 70 mm[Hg] Dr. Bulmaro Curtis Work Phone: 8(962)857-956816 [place] [address] 03-14-2023 06:27-0500 Heart rate 71 /min Dr. Bulmaro Curtis Work Phone: 6(073)221-276116 [place] [address] 03-14-2023 06:27-0500 Respiratory rate 20 /min Dr. Bulmaro Curtis Work Phone: 1(089)419-173416 [place] [address] 03-14-2023 06:27-0500 SaO2% (BldA) [Mass fraction] 94 % Dr. Bulmaro Curtis Work Phone: 6(059)182-473316 [place] [address] 03-14-2023 06:27-0500 Systolic blood pressure 136 mm[Hg] Dr. Bulmaro Curtis Work Phone: 7(671)277-845097 [place] [address] 12-17-2022 08:52-0400 Diastolic blood pressure 77 mm[Hg] Dr. Bulmaro Curtis Work Phone: 6(209)137-797697 [place] [address] 12-17-2022 08:52-0400 Heart rate 70 /min Dr. Bulmaro Curtis Work Phone: 2(790)565-164797 [place] [address] 12-17-2022 08:52-0400 Systolic blood pressure 166 mm[Hg] Dr. Bulmaro Curtis Work Phone: 6(792)514-235897 [place] [address] 12-17-2022 07:51-0400 Body height 187.[address] Bulmaro Curtis Work Phone: 2(949)897-185397 [place] [address] 12-17-2022 07:51-0400 Body mass index (BMI) [Ratio] 39.6 kg/m2 Dr. Bulmaro Curtis Work Phone: 0(980)708-254497 [place] [address] 12-17-2022 07:51-0400 Body temperature 97.9 [degF] Dr. Bulmaro Curtis Work Phone: 3(873)262-621097 [place] [address] 12-17-2022 07:51-0400 Body weight 140.[address] Bulmaro Curtis Work Phone: 7(580)738-467397 [place] [address] 12-17-2022 07:51-0400 Respiratory rate 16 /min Dr. Bulmaro Curtis Work Phone: 3(765)876-198216 [place] [address] 12-17-2022 07:51-0400 SaO2% (BldA) [Mass fraction] 95 % Dr. Bulmaro Curtis Work Phone: [facility] 09-12-2022 06:21-0400 Body mass index (BMI) [Ratio] 38.7 kg/m2 Dr. Bulmaro Curtis Work Phone: [facility] 09-12-2022 06:21-0400 Body temperature 97.6 [degF] Dr. Bulmaro Curtis Work Phone: [facility] 09-12-2022 06:21-0400 Body weight 140.[address] Bulmaro Curtis Work Phone: [facility] 09-12-2022 06:21-0400 Diastolic blood pressure 73 mm[Hg] Dr. Bulmaro Curtis Work Phone: [facility] 09-12-2022 06:21-0400 Heart rate 70 /min Dr. Bulmaro Curtis Work Phone: [facility] 09-12-2022 06:21-0400 Respiratory rate 20 /min Dr. Bulmaro Curtis Work Phone: [facility] 09-12-2022 06:21-0400 SaO2% (BldA) [Mass fraction] 92 % Dr. Bulmaro Curtis Work Phone: [facility] 09-12-2022 06:21-0400 Systolic blood pressure 141 mm[Hg] Dr. Bulmaro Curtis Work Phone: [facility] 05-21-2022 07:54-0500 Body height 190.[address] Bulmaro Curtis Work Phone: [facility] 05-21-2022 07:54-0500 Body mass index (BMI) [Ratio] 39.4 kg/m2 Dr. Bulmaro Curtis Work Phone: [facility] 05-21-2022 07:54-0500 Body temperature 98 [degF] Dr. Bulmaro Curtis Work Phone: [facility] 05-21-2022 07:54-0500 Body weight 142.[address] Bulmaro Curtis Work Phone: [facility] 05-21-2022 07:54-0500 Diastolic blood pressure 80 mm[Hg] Dr. Bulmaro Curtis Work Phone: [facility] 05-21-2022 07:54-0500 Heart rate 78 /min Dr. Bulmaro Curtis Work Phone: [facility] 05-21-2022 07:54-0500 Respiratory rate 18 /min Dr. Bulmaro Curtis Work Phone: [facility] 05-21-2022 07:54-0500 SaO2% (BldA) [Mass fraction] 92 % Dr. Bulmaro Curtis Work Phone: [facility] 05-21-2022 07:54-0500 Systolic blood pressure 138 mm[Hg] Dr. Bulmaro Curtis Work Phone: 5(486)244-846216 [place] [address] 05-15-2022 11:30-0500 Diastolic blood pressure 76 mm[Hg] Dr. uBlmaro Curtis Work Phone: [facility] 05-15-2022 11:30-0500 Heart rate 70 /min Dr. Bulmaro Curtis Work Phone: [facility] 05-15-2022 11:30-0500 Respiratory rate 18 /min Dr. Bulmaro Curtis Work Phone: [facility] 05-15-2022 11:30-0500 SaO2% (BldA) [Mass fraction] 93 % Dr. Bulmaro Curtis Work Phone: [facility] 05-15-2022 11:30-0500 Systolic blood pressure 125 mm[Hg] Dr. Bulmaro Curtis Work Phone: 4(752)689-428716 [place] [address] 05-15-2022 08:15-0500 Body height 190.[address] Bulmaro Curtis Work Phone: [facility] 05-15-2022 08:15-0500 Body mass index (BMI) [Ratio] 38.6 kg/m2 Dr. Bulmaro Curtis Work Phone: [facility] 05-15-2022 08:15-0500 Body temperature 96.6 [degF] Dr. Bulmaro Curtis Work Phone: [facility] 05-15-2022 08:15-0500 Body weight 140.[address] Bulmaro Curtis Work Phone: [facility] 05-08-2022 06:35-0500 Body mass index (BMI) [Ratio] 40.4 kg/m2 Dr. Bulmaro Curtis Work Phone: [facility] 05-08-2022 06:35-0500 Body temperature 97.5 [degF] Dr. Bulmaro Curtis Work Phone: 1(440)619-071716 [place] [address] 05-08-2022 06:35-0500 Body weight 142.[address] Bulmaro Curtis Work Phone: 4(818)537-046516 [place] [address] 05-08-2022 06:35-0500 Diastolic blood pressure 77 mm[Hg] Dr. Bulmaro Curtis Work Phone: 2(706)866-124316 [place] [address] 05-08-2022 06:35-0500 Heart rate 79 /min Dr. Bulmaro Curtis Work Phone: [facility] 05-08-2022 06:35-0500 Respiratory rate 22 /min Dr. Bulmaro Curtis Work Phone: [facility] 05-08-2022 06:35-0500 SaO2% (BldA) [Mass fraction] 94 % Dr. Bulmaro Curtis Work Phone: [facility] 05-08-2022 06:35-0500 Systolic blood pressure 140 mm[Hg] Dr. Bulmaro Curtis Work Phone: [facility] 06-07-2021 08:46-0400 Body height 187.[address] Blumaro Curtis Work Phone: [facility] Work Phone: 06-07-2021 08:46-0400 Body mass index (BMI) [Ratio] 40 kg/m2 Dr. Bulmaro Curtis Work Phone: [facility] Work Phone: 06-07-2021 08:46-0400 Body temperature 97.2 [degF] Dr. Bulmaro Curtis Work Phone: [facility] Work Phone: 06-07-2021 08:46-0400 Body weight 141.[address] Bulmaro Curtis Work Phone: [facility] Work Phone: 06-07-2021 08:46-0400 Diastolic blood pressure 68 mm[Hg] Dr. Bulmaro Curtis Work Phone: [facility] Work Phone: 06-07-2021 08:46-0400 Heart rate 67 /min Dr. Bulmaro Curtis Work Phone: [facility] Work Phone: 06-07-2021 08:46-0400 Respiratory rate 17 /min Dr. Bulmaro Curtis Work Phone: [facility] Work Phone: 06-07-2021 08:46-0400 SaO2% (BldA) [Mass fraction] 94 % Dr. Bulmaro Curtis Work Phone: [facility] Work Phone: 06-07-2021 08:46-0400 Systolic blood pressure 116 mm[Hg] Dr. Bulmaro Curtis Work Phone: [facility] Work Phone: 03-13-2021 08:25-0500 Body mass index (BMI) [Ratio] 36.8 kg/m2 Dr. Bulmaro Curtis Work Phone: [facility] Work Phone: 03-13-2021 08:25-0500 Body weight 130.[address] Bulmaro Curtis Work Phone: [facility] Work Phone: Encounters Encounter Date Encounter Type Care Provider Facility Start: 09-15-[address] Cipriano Layne [facility] Start: 09-15-2024 End: 09-15-[address] [facility] Work Phone: Start: 09-15-2024 End: 09-15-[address] Bulmaro Curtis MD Work Phone: [facility] Work Phone: Start: 08-20-2024 Non-patient / Non-visit Dr. Christina VÁSQUEZ [facility] Work Phone: Start: 08-20-2024 ambulatory Cipriano Layne Facility: [facility] Start: 08-19-2024 End: 08-19-[address] Cipriano Layne DO [facility] Work Phone: Start: 08-19-2024 End: 08-19-[address] Bulmaro Curtis MD Work Phone: [facility] Work Phone: Start: 08-19-[address] [facility] Start: 08-18-2024 End: 08-21-2024 Telephone encounter Cindy Newell RN Work Phone: [facility] Otolaryngology (ENT) Start: 08-18-[address] [facility] Start: 08-18-2024 End: 08-18-[address] Franco Pérez MD -[facility] Work Phone: Start: 08-18-2024 End: 08-18-[address] Bulmaro Curtis MD Work Phone: [facility] Work Phone: Start: 08-12-2024 End: 08-12-[address] Cipriano Layne DO [facility] Work Phone: Start: 08-12-2024 End: 08-12-[address] Bulmaro Curtis MD Work Phone: [facility] Work Phone: Start: 08-12-[address] Cipriano Layne DO -Radiation Oncology Start: 08-10-[address] Cipriano Layne DO -Radiation Oncology Start: 08-10-2024 End: 08-10-[address] Franco Pérez MD -[facility] Work Phone: Start: 08-10-2024 End: 08-10-[address] Bulmaro Curtis MD Work Phone: [facility] Work Phone: Start: 08-07-[address] Cipriano Layne DO -[facility] Work Phone: Start: 08-05-2024 End: 08-05-[address] [facility] Work Phone: Start: 08-05-2024 End: 08-05-[address] Bulmaro Curtis MD Work Phone: [facility] Work Phone: Start: 08-05-[address] Cipriano Layne DO -Radiation Oncology Start: 08-03-2024 End: 08-03-[address] Franco Pérez MD -[facility] Work Phone: Start: 08-03-2024 End: 08-03-2024 ambulatory Bulmaro Curtis Facility:[facility] Start: 07-31-[address] [facility] Work Phone: Start: 07-29-2024 End: 07-29-[address] Cipriano Layne DO [facility] Work Phone: Start: 07-29-2024 End: 07-29-2024 ambulatory Cipriano Layne Facility:[facility] Start: 07-28-2024 ambulatory Cipriano Layne Facility: [facility] Start: 07-28-2024 Non-patient / Non-visit Dr. Christina VÁSQUEZ -[facility] Start: 07-27-2024 ambulatory Cipriano Layne Facility: [facility] Start: 07-27-2024 Non-patient / Non-visit Dr. Christina VÁSQUEZ -[facility] Start: 07-27-2024 End: 07-27-[address] Franco Pérez MD -[facility] Work Phone: Start: 07-27-2024 End: 07-27-2024 ambulatory Bulmaro Chi Ever Facility:[facility] Start: 07-22-2024 End: 07-22-2024 Patient encounter procedure Elicia Yin PA-C -[facility] Work Phone: Start: 07-22-2024 End: 07-22-2024 ambulatory Bulmaro Chi Ever Facility:[facility] Start: 07-20-2024 End: 07-20-[address] Franco Pérez MD -[facility] Work Phone: Start: 07-20-2024 End: 07-20-2024 ambulatory Bulmaro Chi Ever Facility:[facility] Start: 07-17-[address] Cipriano Layne DO -Radiation Oncology Start: 07-15-2024 End: 07-15-[address] Cipriano Layne DO -[facility] Work Phone: Start: 07-15-2024 End: 07-15-2024 ambulatory Cipriano Layne Facility:[facility] Start: 07-14-2024 End: 07-14-[address] Bulmaro Curtis MD Work Phone: [facility] Work Phone: Start: 07-14-2024 End: 07-14-[address] Cipriano Layne DO -Radiology, [facility] Work Phone: Start: 07-13-[address] Cipriano Layne DO -Speech Therapy Work Phone: Start: 07-13-2024 End: 07-13-[address] Franco éPrez MD -[facility] Work Phone: Start: 07-13-2024 End: 07-14-2024 ambulatory Cipriano Layne Facility:[facility] Start: 07-11-2024 End: 07-11-2024 Letter encounter Eive Blank SIGNAL TOWER DIRECTOR-SALES REPRESENTATIVE [employer] Work Phone: [facility] Start: 07-10-[address] Cipriano Layne DO -Radiation Oncology Start: 07-09-2024 ambulatory Daniel Sánchez Facility :[facility] Start: 07-09-2024 Non-patient / Non-visit Dr. Priyank ALVARENGA -[facility] Start: 07-09-2024 End: 07-09-2024 Admission to same day surgery center Dr. Daniel Sánchez MD -[facility] Start: 07-09-2024 End: 07-09-[address] Bulmaro Curtis MD Work Phone: [facility] Work Phone: Start: 07-09-[address] Cipriano Layne DO -Radiation Oncology Start: 07-08-2024 End: 07-08-[address] Cipriano Layne DO -[facility] Work Phone: Start: 07-08-2024 End: 07-08-2024 ambulatory Cipriano Layne Facility:[facility] Start: 07-06-2024 End: 07-06-[address] Bulmaro Curtis MD Work Phone: [facility] Work Phone: Start: 07-06-2024 End: 07-06-2024 Patient encounter procedure Elicia Yin PA-C -Radiology, [facility] Work Phone: Start: 07-06-2024 End: 07-06-[address] Franco Pérez MD -[facility] Work Phone: Start: 07-06-2024 End: 07-06-2024 ambulatory Bulmaro Curtis Facility:[facility] Start: 07-06-2024 End: 07-06-2024 ambulatory Elicia Yin Facility:[facility] Start: 07-02-2024 End: 07-02-2024 ambulatory Jovon Martin Facility:[facility] Start: 07-02-2024 End: 07-02-2024 Non-patient / Non-visit Dr. Andry Juárez MD -[facility] Work Phone: Start: 07-02-2024 ambulatory Daniel Sánchez Facility :[facility] Start: 07-02-2024 Non-patient / Non-visit Dr. Priyank ALVARENGA -[facility] Start: 07-02-2024 End: 07-02-2024 Admission to same day surgery center Dr. Daniel Sánchez MD -[facility] Start: 07-02-2024 End: 07-02-[address] Bulmaro Curtis MD Work Phone: [facility] Work Phone: Start: 06-29-2024 End: 06-29-2024 Patient encounter procedure Ashly Laguerre INDEPENDENT TRADER-C -[facility] Work Phone: Start: 06-29-2024 End: 06-29-2024 ambulatory Bulmaro Curtis Facility:[facility] Start: 06-24-2024 ambulatory Cipriano Layne Facility: [facility] Start: 06-24-2024 Non-patient / Non-visit Dr. Vasquez [facility] Start: 06-23-2024 ambulatory Cipriano Layne Facility: [facility] Start: 06-23-2024 Non-patient / Non-visit Dr. Christina VÁSQUEZ [facility] Start: 06-19-2024 ambulatory Cipriano Layne Facility: [facility] Start: 06-19-2024 Non-patient / Non-visit Dr. Vasquez [facility] Start: 06-19-[address] 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 Daniel Sánchez MD -[facility] Work Phone: Start: 06-03-2024 End: 06-03-2024 ambulatory Daniel Sánchez [facility] Start: 06-02-2024 End: 06-02-[address] Franco Pérez MD -[facility] Work Phone: Start: 06-02-2024 End: 06-02-2024 ambulatory Bulmaro Curtis Facility:[facility] Start: 05-27-2024 End: 05-27-2024 ambulatory UNKNOWN PROVIDER Facility:[facility] Start: 05-26-2024 End: 05-26-[address] Cipriano Layne DO -[facility] Work Phone: Start: 05-26-2024 End: 05-26-2024 ambulatory Cipriano Layne [facility] Start: 05-22-2024 End: 05-22-2024 ambulatory UNKNOWN PROVIDER Facility:[facility] Start: 05-22-2024 ambulatory SHARDA CIARA N ANDARA Facility:[facility] Start: 05-20-2024 Non-patient / Non-visit Lelo Galicia [facility] Work Phone: Start: 05-20-2024 ambulatory Lelo Dan Facility :[facility] Start: 05-13-2024 End: 05-13-2024 ambulatory UNKNOWN PROVIDER Facility:[facility] Start: 05-13-2024 End: 05-14-2024 ambulatory UNKNOWN PROVIDER Facility:[facility] Start: 05-08-2024 End: 05-08-2024 ambulatory SIMON PACKER Facility:[facility] Start: 05-08-2024 End: 05-08-2024 Subsequent hospital visit by physician [facility] MD [facility] Comment on above: Neck mass; Warthin's tumor; Oropharyngeal mass Start: 05-05-2024 End: 05-05-2024 Telephone encounter Cindy Newell RN Work Phone: [facility] Otolaryngology (ENT) Start: 05-04-2024 End: 05-04-2024 Telephone encounter Gela Kelly FINISHER BRUSH [facility] Comment on above: Outreach Start: 04-28-2024 End: 04-29-2024 Office consultation new/estab patient 60 min Evie Blank SIGNAL TOWER DIRECTOR-SALES REPRESENTATIVE [employer] [facility] Comment on above: Pre-op testing (Prim shanika Dx); Abnormal electrocardiogram (ECG) (EKG); Abnormal electrocardiogram (ECG) (EKG); Primary hypertension; H/O pulmonary emphysema (HCC) Start: 04-28-2024 End: 04-29-2024 Patient encounter status Evie Blank SIGNAL TOWER DIRECTOR-SALES REPRESENTATIVE [employer] Work Phone: [facility] Work Phone: Start: 04-28-2024 End: 04-29-2024 ambulatory IRAJ DUBOIS Facility:[facility] Start: 04-28-2024 Encounter for other preprocedural examination EVIE BLANK [facility] Start: 04-28-2024 End: 04-29-2024 Office consultation new/estab patient 80 min Simon Packer MD [facility] Comment on above: Neck mass (Primary D x); Warthin's tumor; Oropharyngeal mass Start: 04-28-2024 End: 04-29-2024 ambulatory IRAJ DUBOIS Facility:[facility] Start: 04-17-2024 End: 04-17-2024 ambulatory UNKNOWN PROVIDER Facility:[facility] Start: 04-17-2024 End: 04-17-2024 Subsequent hospital visit by physician [facility] Radiology Comment on above: Neck mass Start: 04-13-2024 End: 04-13-[address] Iraj Dubois MD -Cat Scan, [facility] Work Phone: Start: 04-13-2024 End: 04-13-2024 ambulatory Iraj Dubois Facility:[facility] Start: 01-07-2024 End: 01-07-2024 ambulatory Bulmaro Curtis Facility:[facility] Start: 07-31-2023 End: 07-31-[address] Bulmaro Curtis Work Phone: [facility] Work Phone: Start: 07-29-2023 End: 07-29-[address] Bulmaro Curtis Work Phone: [facility] Work Phone: Start: 07-29-2023 End: 07-29-[address] Bulmaro Curtis Work Phone: [facility] Work Phone: Start: 07-25-2023 End: 07-25-[address] Bulmaro Curtis Work Phone: [facility] Work Phone: Start: 07-25-2023 End: 07-25-[address] Bulmaro Curtis Work Phone: [facility]-Cat Scan, [facility] Work Phone: Start: 07-04-2023 End: 07-04-[address] Bulmaro Curtis Work Phone: [facility] Work Phone: Start: 07-04-2023 End: 07-04-[address] Bulmrao Curtis Work Phone: [facility]-Laboratory, Ph[facility] Start: 03-14-2023 End: 03-14-[address] Bulmaro Curtis Work Phone: [facility] Work Phone: Start: 01-03-2023 End: 01-03-[address] Bulmaro Curtis Work Phone: [facility] Work Phone: Start: 01-03-2023 End: 01-03-[address] [facility] Start: 12-17-2022 End: 12-17-2022 Emergency department patient visit Dr. Bulmaro Curtis Work Phone: [facility]-Emergency Department Work Phone: Start: 09-12-2022 End: 09-12-[address] [facility] Work Phone: Start: 08-18-2022 End: 08-18-[address] Bulmaro Curtis Work Phone: [facility] Work Phone: Start: 08-18-2022 End: 08-18-[address] Bulmaro Curtis Work Phone: [facility] Start: 06-28-2022 End: 06-28-[address] Bulmaro Curtis Work Phone: [facility], y Office 3rd Flr Start: 05-21-2022 End: 05-21-[address] Bulmaro Curtis [facility] Start: 05-15-2022 End: 05-15-[address] Bulmaro Curtis Work Phone: [facility] Work Phone: Start: 05-15-2022 End: 05-15-[address] Bulmaro Curtis Work Phone: [facility] Start: 05-08-2022 End: 05-08-[address] Bulmaro Curtis [facility] Start: 05-07-2022 End: 05-07-[address] Bulmaro Curtis Work Phone: [facility] Work Phone: Start: 05-07-2022 End: 05-07-[address] Bulmaro Curtis Work Phone: [facility] Start: 03-29-2022 End: 03-29-2022 ambulatory [facility] Work Phone: Start: 03-29-2022 End: 03-29-2022 Patient encounter procedure [facility]-Laboratory, Phy Office 3rd Flr Start: 12-28-2021 End: 12-28-2021 Patient encounter procedure [facility]-Laboratory, Phy Office 3rd Flr Start: 10-06-2021 End: 10-06-2021 Patient encounter procedure [facility]-MRI - [facility] Start: 06-22-2021 End: 06-22-[address] Bulmaro Curtis Work Phone: [facility]-Laboratory Start: 06-07-2021 End: 06-07-[address] Bulmaro Curtis Work Phone: [facility]-Pulmonary Medicine [facility] Start: 05-03-2021 End: 05-03-[address] Bulmaro Curtis Work Phone: [facility] Start: 03-13-2021 End: 03-13-[address] Bulmaro Curtis Work Phone: [facility] Orthopaedic Specia Procedures Date Procedure Procedure [...] Blood count complete automated Evie Ma rkiv SIGNAL TOWER DIRECTOR-SALES REPRESENTATIVE [employer] Work Phone: Start: 04-28-2024 Ecg routine ecg w/least 12 lds trcg only w/o i&r Evie Markiv SIGNAL TOWER DIRECTOR-SALES REPRESENTATIVE [employer] Work Phone: Start: 04-17-2024 Radiology Comparison study [...] Start: 04-28-2025 Creatinine measurement Basic Metabolic Panel [facility] Start: 12-23-2024 Influenza vaccination Influenza Vaccine (#1) [facility] Start: 09-23-2024 End: 09-23-2024 ambulatory 09/23/2024 2:00 PM EDT [facility] Speech ENT [address] [place] [id number] Kristofer Anderson, [facility]-YARN BLEACHING MACHINE OPERATOR [address] [place], [place] [phone] [facility] Speech ENT Start: 09-23-2024 End: 09-23-2024 Patient encounter procedure 09/23/2024 1:00 PM EDT Office Visit [facility] Otolaryngology (ENT) [address] [place] [id number] Simon Packer MD [address] [place] [id number] [facility] Otolaryngology (ENT) Start: 09-15-2024 Comprehensive metabolic 2000 panel - Serum or Plasma [facility] Start: 09-15-2024 Lactate dehydrogenase measurement [facility] Start: 09-15-2024 Magnesium measurement [facility] Start: 09-15-2024 Serum inorganic phosphate measurement [facility] Start: 09-15-2024 T4 free measurement [facility] Start: 09-15-2024 Thyroid stimulating hormone measurement [facility] Start: 09-15-2024 [facility] Start: 08-19-2024 End: 08-19-2024 ambulatory 08/19/2024 3:00 PM EDT [facility] ENT [address] [place] [id number] Kristofer Anderson, CCC-YARN BLEACHING MACHINE OPERATOR [address] [place] [address] [facility] Start: 08-19-2024 End: 08-19-2024 Patient encounter procedure 08/19/2024 2:30 PM EDT Office Visit [facility] Otolaryngology (ENT) [address] [place], [place] [phone] Simon Packer MD [address] [place] [phone] [facility] Otolaryngology (ENT) Start: 08-18-2024 [facility] Start: 08-10-2024 [facility] Start: 07-21-2024 COVID-19 Vaccine (5 - Moderna risk season) COVID-19 Vaccine (5 - Moderna risk ) [facility] Start: 07-09-2024 Anesthesia access central venous circulation ANESTH VASCULAR ACCESS [facility] Start: 07-09-2024 Rpr ctr vad w/subq port/juice scaleman ctr/prph insj sit REPAIR TUNNELED CV CATH [facility] Start: 07-09-2024 Patient discharge [facility] Start: 07-06-2024 Venous catheter care management [facility] Start: 07-06-2024 Venous catheter care management [facility] Start: 07-02-2024 Anesthesia access central venous circulation ANESTH VASCULAR ACCESS [facility] Start: 07-02-2024 Egd percutaneous placement gastrostomy tube EGD PLACE GASTROSTOMY TUBE [facility] Start: 07-02-2024 Insj tunneled ctr vad w/subq port age 6 yr/> INSERT TUNNELED CV CATH [facility] Start: 07-02-2024 Electrocardiographic procedure [facility] Start: 07-02-2024 Patient discharge [facility] Start: 06-29-2024 Patient referral [facility] Work Phone: Start: 05-26-2024 Patient referral [facility] Work Phone: Start: 04-16-2024 Welcome to Medicare Visit (G0402) Welcome to Medicare Visit (G0402) [facility] Start: 03-17-2024 COVID-19 Vaccine ( season) COVID-19 Vaccine ( season) [facility] Start: 07-05-2023 Hemoglobin A1c measurement Hemoglobin A1C [facility] Start: 12-17-2022 Anoscopy dx w/collj spec br/wa spx when prfrmd DIAGNOSTIC ANOSCOPY SPX [facility] Start: 05-15-2022 CORE NDL BX LNG/MED PERQ CORE NDL BX LNG/MED PERQ [facility] Start: 05-15-2022 Plain chest X-ray Chest Insp/Exp 2 View [facility] Start: 05-15-2022 XR Chest Views W inspiration and expiration [facility] Start: 05-15-2022 Following clinical pathway protocol [facility] Start: 05-15-2022 Catheterization of vein [facility] Start: 05-15-2022 Oxygen therapy [facility] Start: 05-15-2022 Patient discharge [facility] Start: 05-15-2022 Vital signs measurements [facility] Start: 09-29-2016 Abdominal aortic aneurysm screening [...] rase [Enzymatic activity/volume] in Serum or Plasma [facility] Albumin [Mass/volume ] in Serum or Plasma [facility] Alkaline phosphatase [Enzymatic activity/volume] in Serum or Plasma [facility] Anion gap in Serum or Plasma [facility] Bilirubin, total measurement [facility] BUN/Creatinine ratio [facility] Calcium [Mass/volume ] in Serum or Plasma [facility] Carbon dioxide, tota l [Moles/volume] in Central venous blood [facility] CBC W Auto Different ial panel - Blood [facility] CBC W Auto Different ial panel - Blood [facility] Comprehensive metabo lic 1999 panel - Serum or Plasma [facility] Comprehensive metabo lic 1999 panel - Serum or Plasma [facility] Creatinine [Mass/vol ume] in Serum or Plasma [facility] CT Chest [facility] CT Chest [facility] CT Chest [facility] Glucose [Mass/volume ] in Serum or Plasma [facility] Lactate dehydrogenas e measurement [facility] Magnesium measurement [facility] Measurement of renal function [facility] Patient Education [facility] Work Phone: Patient referral [facility] Work Phone: Potassium measurement [facility] Serum chloride measurement [facility] Serum inorganic phos phate measurement [facility] Sodium measurement [facility] T4 free measurement [facility] Thyroid stimulating hormone measurement [facility] Total protein measurement [facility] Urea nitrogen [Mass/ volume] in Serum or Plasma [facility] Immunizations Immunization Date Immunization Notes Care Provider [facility] 01-21-2024 Pneumococcal conjuga te 20 valent (PCV20), polysaccharide [id number] conjugate, adjuvant, PF (WFR=381) [facility] Abhay SIGNAL TOWER DIRECTOR-[facility] Work Phone: [facility] 01-07-2024 influenza, seasonal, injectable [facility] Abhay SIGNAL TOWER DIRECTOR-[facility] Work Phone: [facility] 01-07-2024 influenza virus vaccine, unspecified formulation Cindy Newell RN Work Phone: [facility] 01-24-2023 Respiratory syncytia l virus (RSV), vaccine, recombinant, protein subunit RSV prefusion F, adjuvant reconstituted, 0.5 mL, preservative free (PWR=515) Evie Markiv SIGNAL TOWER DIRECTOR-SALES REPRESENTATIVE [employer] Work Phone: [facility] 01-03-2023 influenza, injectabl e, quadrivalent, contains preservative Evie Markiv SIGNAL TOWER DIRECTOR-SALES REPRESENTATIVE [employer] Work Phone: [facility] 01-03-2023 Hemoglobin A1C Evie Markiv SIGNAL TOWER DIRECTOR-SALES REPRESENTATIVE [employer] Work Phone: [facility] 12-22-2020 influenza, injectabl e, quadrivalent, contains preservative Evie Markiv SIGNAL TOWER DIRECTOR-SALES REPRESENTATIVE [employer] Work Phone: [facility] 12-21-2019 influenza, injectabl e, quadrivalent, contains preservative Evie Markiv SIGNAL TOWER DIRECTOR-SALES REPRESENTATIVE [employer] Work Phone: [facility] 08-20-2019 zoster vaccine recombinant Evie Markiv SIGNAL TOWER DIRECTOR-SALES REPRESENTATIVE [employer] Work Phone: [facility] 06-19-2019 zoster vaccine recombinant Evie Markiv SIGNAL TOWER DIRECTOR-SALES REPRESENTATIVE [employer] Work Phone: [facility] 12-16-2018 influenza, injectabl e, quadrivalent, contains preservative Evie Markiv SIGNAL TOWER DIRECTOR-SALES REPRESENTATIVE [employer] Work Phone: [facility] 11-25-[address] Bulmaro Curtis Work Phone: [facility] 11-25-2018 influenza, seasonal, injectable, preservative free Evie Markiv SIGNAL TOWER DIRECTOR-SALES REPRESENTATIVE [employer] Work Phone: [facility] 12-19-2016 influenza, high dose seasonal, preservative-free Evie Markiv SIGNAL TOWER DIRECTOR-SALES REPRESENTATIVE [employer] Work Phone: [facility] 02-03-2009 novel [id number], preservative-free, injectable Evie Markiv SIGNAL TOWER DIRECTOR-SALES REPRESENTATIVE [employer] Work Phone: [facility] Payers Date Payer Category Payer Dental --Stand Alone DENTAL-[employer] [id number] 2024 Unknown [id number] 2024 Medicare FFS MEDICARE [id number] 2024 Self-pay [id number] 2021 Commercial Indemnity [facility] [id number] 2021 Unknown [id number] 2016 Medicare [id number] 1950 Unknown [id number] 2.16.840.1.845337.3.579.2.7 32 -195 Unknown [id number] 2.16.840.1.360757.3.579.2.7 32 -195 Unknown [id number] 2.16.840.1.079157.3.579.2.7 32 -195 Unknown [id number] 2.16.840.1.914699.3.579.2.7 32 - Unknown [id number] 2.16.840.1.316248.3.579.2.7 32 1950 Unknown [id number] 2.16.840.1.505642.3.579.2.7 32 1951 Unknown [id number] 2.16.840.1.372038.3.579.2.7 32 1951 Unknown [id number] 2.16.840.1.513686.3.579.2.7 32 1951 Unknown [id number] 2.16.840.1.865624.3.579.2.7 32 1951 Unknown [id number] 2.16.840.1.902690.3.579.2.7 32 1951 Unknown [id number] 2.16.840.1.362429.3.579.2.7 32 195 Unknown [id number] 2.16.840.1.480275.3.579.2.7 32 1950 Unknown [id number] 2.16.840.1.068094.3.579.2.7 32 Unknown [id number] 2.16.840.1.754278.3.579.2.4 62 Unknown [id number] 2.16.840.1.239891.3.579.2.4 62 Unknown [id number] 2.16.840.1.308183.3.579.2.4 62 Unknown [id number] 2.16.840.1.973847.3.579.2.4 62 Unknown [id number] 2.16.840.1.229153.3.579.2.4 62 Unknown [id number] 2.16.840.1.336729.3.579.2.4 62 Unknown [id number] 2.16.840.1.346771.3.579.2.4 62 Unknown [id number] 2.16.840.1.743677.3.579.2.4 62 Unknown [id number] 2.16.840.1.306657.3.579.2.4 62 Unknown [id number] 2.16.840.1.963668.3.579.2.4 62 Unknown [id number] 2.16.840.1.635895.3.579.2.4 62 Unknown [id number] 2.16.840.1.967590.3.579.2.4 62 Unknown [id number] 2.16.840.1.135220.3.579.2.4 62 Unknown [id number] 2.16.840.1.212923.3.579.2.4 62 Unknown [id number] 2.16.840.1.858318.3.579.2.4 62 Unknown [id number] 2.16.840.1.033498.3.579.2.4 62 Unknown [id number] 2.16.840.1.084136.3.579.2.4 62 Unknown [id number] 2.16.840.1.178756.3.579.2.4 62 Unknown [id number] 2.16.840.1.478468.3.579.2.4 62 Unknown [id number] 2.16.840.1.122129.3.579.2.4 62 Unknown [id number] 2.16.840.1.605498.3.579.2.4 62 Unknown [id number] 2.16.840.1.003162.3.579.2.4 62 Unknown [id number] 2.16.840.1.194556.3.579.2.4 62 Unknown [id number] 2.16.840.1.302332.3.579.2.4 62 Unknown [id number] 2.16.840.1.575360.3.579.2.4 62 Unknown [id number] 2.16.840.1.494301.3.579.2.4 62 Unknown [id number] 2.16.840.1.252556.3.579.2.4 62 Unknown [id number] 2.16.840.1.973237.3.579.2.4 62 Unknown [id number] 2.16.840.1.465002.3.579.2.4 62 Unknown [id number] 2.16.840.1.706668.3.579.2.4 62 Unknown [id number] 2.16.840.1.901273.3.579.2.4 62 Unknown [id number] 2.16.840.1.507970.3.579.2.4 62 Unknown [id number] 2.16.840.1.061394.3.579.2.4 62 Unknown [id number] 2.16.840.1.202069.3.579.2.4 62 Unknown [id number] 2.16.840.1.389812.3.579.2.4 62 Unknown [id number] 2.16.840.1.547353.3.579.2.4 62 Unknown [id number] 2.16.840.1.520073.3.579.2.4 62 Unknown [id number] 2.16.840.1.639691.3.579.2.4 62 Unknown [id number] 2.16.840.1.267955.3.579.2.4 62 Unknown [id number] 2.16.840.1.785262.3.579.2.4 62 Social History Date Type Detail Facility Start: 06-07-2021 End: 03-14-2023 Tobacco smoking status NHIS Unknown if ever smoked [facility] Start: 05-04-2019 Occasional [facility] Start: 05-04-2019 None [facility] Start: 05-04-2019 Spouse/ Significant Other [facility] Start: 05-04-2019 Cigarettes [facility] Start: 1950 Sex Assigned At Male [facility] Start: 04-28-2024 End: 06-22-2024 Tobacco smoking status NHIS Ex-smoker (finding) [facility] Start: 04-16-2024 End: 07-02-2024 Sex Male (finding) [facility] History of tobacco use [facility] History of tobacco use [facility]igarette [facility] Start: 04-28-2024 Tobacco use and exposure Smokeless tobacco non-user [facility] Start: 04-29-2024 End: 05-11-2024 Alcoholic beverage intake Ex-drinker (finding) [facility] Start: 04-28-2024 End: 04-29-2024 History of Social function [facility] Start: 04-28-2024 End: 04-29-2024 [facility] In the past 12 month s has the electric, gas, oil, or water [employer] threatened to shut off services in your home? No [facility] Within the last year , have you been afraid of your partner or ex-partner? No [facility] Do you belong to any clubs or organizations such as buddhist groups, unions, fraternal or athletic groups, or [...] 1950 Sex assigned at Not on file [facility] Start: 04-29-2024 End: 05-11-2024 Details of drug misuse behavior Misused drugs in past (finding) [facility] Medical Equipment Procedure Code Equipment Code Equipment Origin al Text Equipment Identifier Dates Insertion, vascular access port ([id number]) Vascular port/catheter ()[id number] FDA Start: 07-02-2024 Insertion, vascular access port ([id number]) Vascular port/catheter ()[id number] FDA Start: 07-09-2024 EGD, with monitored anesthesia care Gastrostomy tube kit, medicated ()[id number] FDA Start: 07-02-2024 Goals Date Patient Goal Desired Activity /State Mental Status Date Assessment Result Facility 07-31-2024 Cognitive function Voice/Name [facility] Work Phone: 07-09-2024 Cognitive function Voice/Name [facility] Work Phone: 07-02-2024 Cognitive function Level Of Cons ciousness Awake;Alert;Appropriate [facility] Work Phone: 07-02-2024 Cognitive function Voice/Name [facility] Work Phone: 05-15-2022 Cognitive function Awake;Alert;Appropriat e [facility] Work Phone: Clinical Notes 04-28-2024 to [...] Oncologist. He acknowledges understanding. Cindy Newell RN [facility] Work Phone: 08-18-2024 Miscellaneous Notes Formattin g [...] Cindy Newell RN documented in this encounter [facility] 08-18-2024 Progress note [facility] 08-18-2024 Progress note Note Date/Time August 18, 2024 9:13am [facility] [address] [address] OFFICE VISIT Date of Service: 08/18/24 0834 MR#: [id number] Acct: [id number] Name: ROBERT RON Rep #: [id number] : 1950 From: Franco Pérez MD Age/Sex: 73/M Location: [facility] Status: Signed HPI Subjective Date of Service [...] level III node. He was referred to [facility], had ENT evaluation with biopsy on 05/14/2024, [...] stable, nasal bleed hasimproved after cauterization . [facility] Medical History Encounter for education Wears glasses [...] mg 1 - 2 tab PO Q6H NJ N PRN pain 06/22/24 08/18/24 History tablet [...] applicable) CC: Dr. Bulmaro Curtis MD ~ [facility] Work Phone: 1(206) 775-791305-21-2025 Progress [facility] [address] [place] [address] OFFICE VISIT Date of Service: 08/12/24 1302 MR#: [id number] Acct: [id number] Name: ROBERT RON Rep #: [id number] : 1950 From: Cipriano Vinita delgado DO Age/Sex: 73/M [place] [facility] [place]: Signed Intake Vital Signs 06/29/24 10:27 [...] mg 1 - 2 tab PO Q6H NJ N PRN pain 06/22/24 08/12/24 History tablet [...] mg 1 - 2 tab PO Q6H NJ N PRN pain 06/22/24 Unknown History tablet [...] any time. ? 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 08/12/24 1326 DO> Date _ Cipriano Jhaveriignkirill Signature: Date (if applicable) CC: ~ [facility]05-21-2025 Progress note Author Cipriano Layne [facility] Note Date/Time August 12, 2024 1:26p m [facility] [place] [address] OFFICE VISIT Date of Service: 08/12/24 1302 MR#: [id number] Acct: [id number] Name: ROBERT RON Rep #: [id number] : 1950 From: Cipriano delgado DO Age/Sex: 73/M [place] [facility] Status: Signed Intake Vital Signs 06/29/24 10:27 [...] mg 1 - 2 tab PO Q6H NJ N PRN pain 06/22/24 08/12/24 History tablet [...] mg 1 - 2 tab PO Q6H NJ N PRN pain 06/22/24 Unknown History tablet [...] any time. ? 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 He was referred to [facility], had ENT evaluation with biopsy on 05/14/2024, [...] is stable, getting L sided nasal bleed. [facility] Medical History Encounter for education Wears glasses [...] mg 1 - 2 tab PO Q6H NJ N PRN pain 06/22/24 08/10/24 History tablet [...] applicable) CC: Dr. Bulmaro Curtis MD ~ [facility]05-19-2025 Progress note Author Franco Pérez [facility] Note Date/Time August 10, 2024 9:26a m [facility] [address] [address] OFFICE VISIT Date of Service: 08/10/24 0845 MR#: [id number] Acct: [id number] Name: ROBERT RON Rep #: [id number] : 1950 From: Franco Pérez MD Age/Sex: 73/M [place] [facility] Status: Signed HPI Subjective Date of Service [...] level III node. He was referred to [facility], had ENT evaluation with biopsy on 05/14/2024, [...] is stable, getting L sided nasal bleed. [facility] Medical History Encounter for education Wears glasses [...] mg 1 - 2 tab PO Q6H NJ N PRN pain 06/22/24 08/10/24 History tablet [...] applicable) CC: Dr. 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 YARN BLEACHING MACHINE OPERATOR recommended MBSS to determine baseline swallow function [...] cup: Result: 2= enter airway/above vocal folds/ejected Rafael Pena Thick Liquid via large single sip: cup: [...] Status Active ST Patient: Active Contact Information [facility] Speech Therapy:: Rosalia Pollard M.A. CCC-YARN BLEACHING MACHINE OPERATOR? Speech-Language Pathologist?? [facility] [address] [place] [address]? [email or web address]?? [phone] 07/14/24 1524 SAFIA Vallejo-YARN BLEACHING MACHINE OPERATOR> Date/Time Rosalia Pollard M.A. CCC-YARN BLEACHING MACHINE OPERATOR Co-Signature Required for all Medicare patients Date/Time Co-Signature CC: ~ [facility]04-17-2025 History and physical note Author Daniel Sánchez [facility] Note Date/Time July 09, 2024 10: 56am [facility] Medical Records Department [address] [place] [address] History & Physical Exam 07/09/24 1054 MR#: [id number] Acct: [id number] Name: ROBERT RON Rep #:[id number] : 1950 73 From: Daniel Sánchez MD PCP: Dr. Bulmaro Curtis MD Status:REG S DC Location: [place] [address]-1 HPI - General General Date of Admission: 07/09/24 Date of Service: 07/09/24 Chief Complaint: non functional medport HPI Narrative ROBERT RON, is a 73 M who presents for revision of medport. It was placed about a week ago but oncology having issues with it functioning properly. xray seems to suggest a possible kink in tubing [facility] Medical History Encounter for education Wears glasses [...] mg 1 - 2 tab PO Q6H NJ N PRN pain 06/22/24 Unknown History tablet [...] Sánchez MD; Dr. Bulmaro Curtis MD~ Signed [facility] Work Phone: 1(228) 820-305104-17-2025 Consult note Author Jovon [facility] Note Date/Time July 09, 2024 10: 48am [facility] Medical Records Department [address] [place] [address] Pre-Anesthesia Evaluation 07/09/24 1028 MR#: [id number] Acct: [id number] Name: ROBERT RON Rep #:[id number] : 1950 73 From: Jovon Martin MD PCP: Dr. Bulmaro Curtis MD Status:REG S DC Y Race: C Location: [place] [address] ASA Classification* ASA Classification ASA Classification: 3 [...] CHEST MEDIPORT Anesthesia History Anesthesia History - log skidder: Anesthesia History - log skidder Hx Hospitalization Yes 07/07/24 10:45 Any Problems [...] coffee at 8:15 AM.) PONV PONV - log skidder: PONV - log skidder Female No 07/07/24 10:45 HX of Motion [...] 07/09/24 10:02 Respiratory Assessment Respiratory Assessment - log skidder: Respiratory Tract Infection Hx - log skidder Hx Respiratory Tract Infection No 07/07/24 10:45 STOP Sleep Apnea STOP Sleep Apnea - log skidder: STOP Sleep Apnea - log skidder Hx Hypertension Yes 07/07/24 10:45 Hx Sleep [...] Tobacco Use History Tobacco Use History - log skidder: Tobacco Use History - log skidder Tobacco Use Smoking Status Former smoker 07/07/24 10:45 Hx Tobacco Use Yes 07/07/24 10:45 Years Smoking Packs Smoked per Day Smoking Cessation Date was Yes - quit smoking within 15 07/07/24 10:45 within the last 15 years years Hx Smoking Cessation Date 04/03/19 07/07/24 10:45 Hx Smoking Cessation Counseling Hematologic Medial History Hematologic Hx - log skidder: Hematologic Medical Hx - documentation billing clerk Hx of Blood Transfusion No 07/07/24 10:45 [...] confused, unrespo /Reproduction History /Reproductive History - log skidder: /Reproductive Hx- log skidder Hx Now No 07/07/24 10:45 Gestational Age (in weeks): EDC: Hx Hx Para Hx Section SAB No 07/07/24 10:45 Active Medications Active Medications: Current Medications Generic Name Dose Route Start Last Admin Trade Name Freq PRN Reason Stop Dose Admin Cefazolin Sodium 3 gm/ N/A 30 mls @ 600 mls/hr 07/09/24 11:30 IV 07/09/24 11:32 INTRAOP ONE [facility] Medical History Encounter for education Wears glasses [...] mg 1 - 2 tab PO Q6H NJ N PRN pain 06/22/24 Unknown History tablet [...] MD Cosigner Signature: Date CC: ~ Signed [facility] Work Phone: 1(932) 235-857904-17-2025 Radiology Diagnostic study note [facility] Imaging Services [address] [place], [place] [address] CXR for Line Placement MR#: [id number] Acct: [id number] Name: ROBERT RON Rep #: [id number] : 1950 M 73 From: Iván Ramírez MD PCP: Dr. Bulmaro Curtis MD Status: REG S DC Study:CXR for Line Placement Date of Exam: 07/09/24 Exam# [id number] Ordering Dr: St mary Sánchez MD EXAM: [...] of the left brachiocephalic vein. Reading Location: [place] [address] CC: Dr. Daniel Sánchez MD; Dr. Bulmaro Curtis MD ~ Cash Application Representative: Signed [facility]04-17-2025 Consult note [facility] Medical Records Department [address] [place] [address] Anesthesia Postop Eval I 07/09/24 1221 MR#: [id number] Acct: [id number] Name: ROBERT RON Rep #:[id number] : 1950 73 From: Isaiah rodriguez ELECTRONIC GAME DEVELOPER PCP: Dr. Bulmaro Curtis MD Status:REG S DC Y Race: C Location: [place] [address] Anesthesia: Postop Eval I Current Vital Signs [...] Eval 1 completed: Yes 07/09/24 1224 ero ELECTRONIC GAME DEVELOPER> Date _ Isaiah Bravoo ELECTRONIC GAME DEVELOPER Cosigner Signature: Date CC: ~ Signed [facility]04-17-2025 Discharge summary [facility] Medical Records Department [address] [place] [address] Instructions for Home/Discharge Instructions 07/09/24 1207 MR#: [id number] Acct: [id number] Name: ROBERT RON Rep #:[id number] : [...] Provider: Bulmaro Curtis Chi Instructions Print Language: Latvian Discharge Orders/Prescriptions Prescriptions: Continued rivaroxaban 15 mg [...] CC: Dr. Bulmaro Curtis MD ~ Signed [facility]04-17-2025 History and physical note [facility] Medical Records Department [address] [place] [address] History & Physical Exam 07/09/24 1054 MR#: [id number] Acct: [id number] Name: ROBERT RON Rep #:[id number] : 1950 73 From: Daniel Sánchez MD PCP: Dr. Bulmaro Chi Ever, MD Status:REG S DC Location: [facility] HPI - General General Date of Admission: 07/09/24 Date of Service: 07/09/24 Chief Complaint: non functional medport HPI Narrative ROBERT RON, is a 73 M who presents for revision of medport. It was placed about a week ago but oncology having issues with it functioning properly. xray seems to suggest a possible kink in tubing [facility] Medical History Encounter for education Wears glasses [...] mg 1 - 2 tab PO Q6H NJ N PRN pain 06/22/24 Unknown History tablet [...] Sánchez MD; Dr. Bulmaro Curtis MD~ Signed [facility]17[facility] note [facility] Medical Records Department [address] [place] [address] Pre-Anesthesia Evaluation 07/09/24 1028 MR#: [id number] Acct: [id number] Name: ROBERT RON Rep #:[id number] : 1950 73 From: Jovon Martin MD PCP: Dr. Bulmaro Curtis MD Status:REG S DC Y Race: C Location: [place] [address] ASA Classification* ASA Classification ASA Classification: 3 [...] CHEST MEDIPORT Anesthesia History Anesthesia History - log skidder: Anesthesia History - log skidder Hx Hospitalization Yes 07/07/24 10:45 Any Problems [...] coffee at 8:15 AM.) PONV PONV - log skidder: PONV - log skidder Female No 07/07/24 10:45 HX of Motion [...] 07/09/24 10:02 Respiratory Assessment Respiratory Assessment - log skidder: Respiratory Tract Infection Hx - log skidder Hx Respiratory Tract Infection No 07/07/24 10:45 STOP Sleep Apnea STOP Sleep Apnea - log skidder: STOP Sleep Apnea - log skidder Hx Hypertension Yes 07/07/24 10:45 Hx Sleep [...] Tobacco Use History Tobacco Use History - log skidder: Tobacco Use History - log skidder Tobacco Use Smoking Status Former smoker 07/07/24 10:45 Hx Tobacco Use Yes 07/07/24 10:45 Years Smoking Packs Smoked per Day Smoking Cessation Date was Yes - quit smoking within 07/07/24 10:45 within the last 15 years years Hx Smoking Cessation Date 04/03/19 07/07/24 10:45 Hx Smoking Cessation Counseling Hematologic Medial History Hematologic Hx - log skidder: Hematologic Medical Hx - documentation billing clerk Hx of Blood Transfusion No 07/07/24 10:45 [...] confused, unrespo /Reproduction History /Reproductive History - log skidder: /Reproductive Hx- log skidder Hx Now No 07/07/24 10:45 Gestational Age (in weeks): EDC: Hx Hx Para Hx Section SAB No 07/07/24 10:45 Active Medications Active Medications: Current Medications Generic Name Dose Route Start Last Admin Trade Name Freq PRN Reason Stop Dose Admin Cefazolin Sodium 3 gm/ N/A 30 mls @ 600 mls/hr 07/09/24 11:30 IV 07/09/24 11:32 INTRAOP ONE [facility] Medical History Encounter for education Wears glasses [...] mg 1 - 2 tab PO Q6H NJ N PRN pain 06/22/24 Unknown History tablet [...] MD Cosigner Signature: Date CC: ~ Signed [facility]04-14-2025 Radiology Diagnostic study note [facility] Imaging Services [address] [place] [address] CXR for Line Placement MR#: [id number] Acct: [id number] Name: ROBERT RON Rep #: [id number] : 1950 M 73 From: Sean Ochoa DO PCP: Dr. Bulmaro Curtis MD Status: [facility] C Study:CXR for Line Placement Date of Exam: 07/06/24 Exam# [id number] Ordering Dr: Elicia Yin PA-C EXAM: PA [...] of the left lower lobe. Reading Location: [id number] CC: COY Yin; Dr. Bulmaro Curtis MD ~ Cash Application Representative: Signed [facility]04-10-2025 Consult note Author Jovon Martin [facility] Note Date/Time July 02, 2024 1:0 0pm [facility] Medical Records Department [address] [place] [address] Anesthesia Postop Eval II 07/02/24 1259 MR#: [id number] Acct: [id number] Name: ROBERT RON Rep #:[id number] : 1950 73 From: Jovon Martin MD PCP: Dr. Bulmaro Curtis MD Status:REG S DC Y Race: C Location: [place] [address] Anesthesia Postop Eval I Sum Postop Eval Completion status Anesthesia document: Postop Eval 1 completed: No Anesthesia Postop Eval I Summary Anesthesia Postop Eval I Summary: Anesthesia Postop Eval I: Assessment Summary Airway patent Yes 07/02/24 12:32 ELECTRONIC GAME DEVELOPER.MEDM Spontaneous unlabored Yes 07/02/24 12:32 ELECTRONIC GAME DEVELOPER.MEDM respirations Mental status Awake 07/02/24 12:32 ELECTRONIC GAME DEVELOPER.MEDM nausea No 07/02/24 12:32 ELECTRONIC GAME DEVELOPER.MEDM Vomiting No 07/02/24 12:32 ELECTRONIC GAME DEVELOPER.MEDM Anesthesia Postop Eval I: Fluid Summary Crystalloid volume administer 800 07/02/24 12:32 ELECTRONIC GAME DEVELOPER.MEDM (ml) Colloids volume administered ( ml) Blood Product volume administered (ml) Total IV fluid infused 800 07/02/24 12:32 ELECTRONIC GAME DEVELOPER.MEDM Anesthesia Postop Eval I: Summary Notes Anesthesia Complication No 07/02/24 12:32 ELECTRONIC GAME DEVELOPER.MEDM Anesthesia Complication Comment: Post-operative progress note Anesthesia: Postop Eval II Evaluation Mental status: Awake and Calm Pain Level: 1 nausea: No Vomiting: No Complications Anesthesia Complication: No 07/02/24 1300 <Electronically signed by Jovon dove MD> Date _ Jovon Martin MD Cosigner Signature: Date CC: ~ Signed [facility] Work Phone: 1(992) 141-527204-10-2025 Discharge summary Author Daniel Sánchez [facility] Note Date/Time July 02, 2024 12: 33pm [facility] Medical Records Department [address] [place] [address] Instructions for Home/Discharge Instructions 07/02/24 1229 MR#: [id number] Acct: [id number] Name: ROBERT RON Rep #:[id number] : [...] Provider: Bulmaro Curtis Chi Instructions Print Language: Latvian Discharge Orders/Prescriptions Prescriptions: New oxycodone-acetaminophen [Percocet] 5-325 [...] CC: Dr. Bulmaro Curtis MD ~ Signed [facility] Work Phone: 1(115) 390-669404-10-2025 Consult note Author Newton Steen [facility] Note Date/Time July 02, 2024 12: 32pm [facility] Medical Records Department [address] [place] [address] Anesthesia Postop Eval I 07/02/24 1232 MR#: [id number] Acct: [id number] Name: ROBERT RON NAEL Rep #:[id number] : 1950 73 From: Newton Steen CRNA PCP: Dr. Bulmaro Curtis MD Status:REG S DC Y Race: C Location: [place] [address] Anesthesia: Postop Eval I Current Vital Signs [...] CRNA Cosigner Signature: Date CC: ~ Signed [facility] Work Phone: 1(939) 841-408804-10-2025 Radiology Diagnostic study note [facility] Imaging Services [address] [place] [address] CXR for Line Placement MR#: [id number] Acct: [id number] Name: ROBERT RON Rep #: [id number] : 1950 M 73 From: Albania Marks MD PCP: Dr. Bulmaro Curtis MD Status: REG S DC Study:CXR for Line Placement Date of Exam: 07/02/24 Exam# [id number] Ordering Dr: St mary Sánchez MD EXAM: [...] 2. No active cardiopulmonary disease. Reading Location: [place] [address] CC: Dr. Daniel Sánchez MD; Dr. Bulmaro Curtis MD ~ Cash Application Representative: Signed [facility]04-10-2025 Consult note [facility] Medical Records Department [address] [place] [address] Anesthesia Postop Eval II 07/02/24 1259 MR#: [id number] Acct: [id number] Name: ROBERT RON Rep #:[id number] : 1950 73 From: Jovon Martin MD PCP: Dr. Bulmaro Curtis MD Status:REG S DC Y Race: C Location: [place] [address] Anesthesia Postop Eval I Sum Postop Eval Completion status Anesthesia document: Postop Eval 1 completed: No Anesthesia Postop Eval I Summary Anesthesia Postop Eval I Summary: Anesthesia Postop Eval I: Assessment Summary Airway patent Yes 07/02/24 12:32 ELECTRONIC GAME DEVELOPER.MEDM Spontaneous unlabored Yes 07/02/24 12:32 ELECTRONIC GAME DEVELOPER.MEDM respirations Mental status Awake 07/02/24 12:32 ELECTRONIC GAME DEVELOPER.MEDM nausea No 07/02/24 12:32 ELECTRONIC GAME DEVELOPER.MEDM Vomiting No 07/02/24 12:32 ELECTRONIC GAME DEVELOPER.MEDM Anesthesia Postop Eval I: Fluid Summary Crystalloid volume administer 800 07/02/24 12:32 ELECTRONIC GAME DEVELOPER.MEDM (ml) Colloids volume administered ( ml) Blood Product volume administered (ml) Total IV fluid infused 800 07/02/24 12:32 ELECTRONIC GAME DEVELOPER.MEDM Anesthesia Postop Eval I: Summary Notes Anesthesia Complication No 07/02/24 12:32 ELECTRONIC GAME DEVELOPER.MEDM Anesthesia Complication Comment: Post-operative progress note Anesthesia: Postop Eval II Evaluation Mental status: Awake and Calm Pain Level: 1 nausea: No Vomiting: No Complications Anesthesia Complication: No 07/02/24 1300 la > Date _ Jovon Anderson Signature: Date CC: ~ Signed [facility]04-10-2025 Procedure note [facility] Medical Records Department [address] [place] [address] Operative Report 07/02/24 1233 MR#: [id number] Acct: [id number] Name: ROBERT RON Rep #:[id number] : 1950 73 From: Daniel Sánchez MD PCP: Dr. Bulmaro Curtis MD Status:REG S [place] Location: [place] [address] Problems Associated Problem List Diagnoses (1) Primary squamous cell carcinoma of base of tongue: Multi Select Codes Respiratory/Cardiovascular Resp/Cardiovascular CPT Codes: 15247 Insert tunneled cv cath Digestive Digestive CPT Codes: [address] gastrostomy tube Operative Report (Standard) Operative Information Date of Procedure: 07/02/24 Pre-Operative Diagnosis: Tongue cancer Post-Operative Diagnosis: Same Surgery/Procedure Performed: 1. Left subclavian Mediport placement with C arm 2. EGD 3. Percutaneous endoscopic gastrostomy tube placement (PEG) lithographic platemaker: No Type of Anesthesia: General and Local [...] apply: Implanted device Implanted device details: 8 [place] PowerPort Estimated Blood Loss: 5 mL Specimen [...] Sánchez MD; Dr. Bulmaro Curtis MD~ Signed [facility]04-10-2025 Discharge summary [facility] Medical Records Department [address] [place] [address] Instructions for Home/Discharge Instructions 07/02/24 1229 MR#: [id number] Acct: [id number] Name: ROBERT RON Rep #:[id number] : [...] Provider: Bulmaro Curtis Chi Instructions Print Language: Latvian Discharge Orders/Prescriptions Prescriptions: New oxycodone-acetaminophen [Percocet] 5-325 [...] CC: Dr. Bulmaro Curtis MD ~ Signed [facility]04-10-2025 Consult note [facility] Medical Records Department [address] [place] [address] Anesthesia Postop Eval I 07/02/24 1232 MR#: [id number] Acct: [id number] Name: ROBERT RON Rep #:[id number] : 1950 73 From: Newton Steen CRNA PCP: Dr. Bulmaro Curtis MD Status:REG S DC Y Race: C Location: [place] [address] Anesthesia: Postop Eval I Current Vital Signs [...] Eval 1 completed: No 07/02/24 1232 ds ELECTRONIC GAME DEVELOPER> Date _ Newton Steen ELECTRONIC GAME DEVELOPER Cosigner Signature: Date CC: ~ Signed [facility]04-10-2025 Consult note Author Jovon Martin [facility] Note Date/Time July 02, 2024 10: 13am [facility] Medical Records Department [address] [place] [address] Pre-Anesthesia Evaluation 07/02/24 0948 MR#: [id number] Acct: [id number] Name: ROBERT RON Rep #:[id number] : 1950 73 From: Jovon Martin MD PCP: Dr. Bulmaro Curtis MD Status:REG S DC Y Race: C Location: [place] [address] ASA Classification* ASA Classification ASA Classification: 3 [...] tube placement Anesthesia History Anesthesia History - log skidder: Anesthesia History - log skidder Hx Hospitalization No 06/22/24 17:28 Any Problems [...] water at 7:10 AM.) PONV PONV - log skidder: PONV - log skidder Female No 06/22/24 17:28 HX of Motion [...] 07/02/24 08:54 Respiratory Assessment Respiratory Assessment - log skidder: Respiratory Tract Infection Hx - log skidder Hx Respiratory Tract Infection No 06/22/24 17:28 STOP Sleep Apnea STOP Sleep Apnea - log skidder: STOP Sleep Apnea - log skidder Hx Hypertension Yes: PER PT , CONTROLLED [...] Tobacco Use History Tobacco Use History - log skidder: Tobacco Use History - log skidder Tobacco Use Smoking Status Former smoker 06/22/24 17:28 Hx Tobacco Use No 06/22/24 17:28 Years Smoking Packs Smoked per Day Smoking Cessation Date was Yes - quit smoking within 15 06/22/24 17:28 within the last 15 years years Hx Smoking Cessation Date 05/05/19 06/22/24 17:28 Hx Smoking Cessation Counseling Hematologic Medial History Hematologic Hx - log skidder: Hematologic Medical Hx - documentation billing clerk Hx of Blood Transfusion No 06/22/24 17:28 [...] confused, unrespo /Reproduction History /Reproductive History - log skidder: /Reproductive Hx- log skidder Hx Now Gestational Age (in weeks): EDC: [...] mg 1 - 2 tab PO Q6H NJ N PRN pain 06/22/24 Unknown History tablet [...] MD Cosigner Signature: Date CC: ~ Signed [facility] Work Phone: 1(445) 642-214604-10-2025 History and physical note Author Daniel Sánchez [facility] Note Date/Time July 02, 2024 9:4 4am [facility] Medical Records Department [address] [place] [address] History & Physical Exam 07/02/24941 MR#: [id number] Acct: [id number] Name: ROBERT RON Rep #:[id number] : 1950 73 From: Daniel Sánchez MD PCP: Dr. Bulmaro Curtis MD Status:REG S [place] Location: [place] [address] HPI - General General Date of Admission: [...] for thePEG and port to be placed. [facility] Medical History (Updated 06/29/24 @ 10:55 by Ashly Laguerre INDEPENDENT TRADER, INDEPENDENT TRADER-C) Encounter for education Wears glasses Edentulous High [...] mg 1 - 2 tab PO Q6H NJ N PRN pain 06/22/24 Unknown History tablet [...] Sánchez MD; Dr. Bulmaro Curtis MD~ Signed [facility] Work Phone: 1(906) 122-999604-10-2025 Consult note [facility] Medical Records Department [address] [place] [address] Pre-Anesthesia Evaluation 07/02/2448 MR#: [id number] Acct: [id number] Name: ROBERT RON Rep #:[id number] : 1950 73 From: Jovon Martin MD PCP: Dr. Bulmaro Curtis MD Status:REG S DC Y Race: C Location: [place] [address] ASA Classification* ASA Classification ASA Classification: 3 [...] tube placement Anesthesia History Anesthesia History - log skidder: Anesthesia History - log skidder Hx Hospitalization No 06/22/24 17:28 Any Problems [...] water at 7:10 AM.) PONV PONV - log skidder: PONV - log skidder Female No 06/22/24 17:28 HX of Motion [...] 07/02/24 08:54 Respiratory Assessment Respiratory Assessment - log skidder: Respiratory Tract Infection Hx - log skidder Hx Respiratory Tract Infection No 06/22/24 17:28 STOP Sleep Apnea STOP Sleep Apnea - log skidder: STOP Sleep Apnea - log skidder Hx Hypertension Yes: PER PT , CONTROLLED [...] Tobacco Use History Tobacco Use History - log skidder: Tobacco Use History - log skidder Tobacco Use Smoking Status Former smoker 06/22/24 17:28 Hx Tobacco Use No 06/22/24 17:28 Years Smoking Packs Smoked per Day Smoking Cessation Date was Yes - quit smoking within 15 06/22/24 17:28 within the last 15 years years Hx Smoking Cessation Date 05/05/19 06/22/24 17:28 Hx Smoking Cessation Counseling Hematologic Medial History Hematologic Hx - log skidder: Hematologic Medical Hx - documentation billing clerk Hx of Blood Transfusion No 06/22/24 17:28 [...] confused, unrespo /Reproduction History /Reproductive History - log skidder: /Reproductive Hx- log skidder Hx Now Gestational Age (in weeks): EDC: [...] mg 1 - 2 tab PO Q6H NJ N PRN pain 06/22/24 Unknown History tablet [...] MD Cosigner Signature: Date CC: ~ Signed [facility]04-10-2025 History and physical note [facility] Medical Records Department [address] [place] [address] History & Physical Exam 07/02/24 0942 MR#: [id number] Acct: [id number] Name: ROBERT RON Rep #:[id number] : 1950 73 From: Daniel Sánchez MD PCP: Dr. Bulmaro Curtis MD Status:REG S VA Location: [place] [address] HPI - General General Date of Admission: [...] for thePEG and port to be placed. [facility] Medical History (Updated 06/29/24 @ 10:55 by Ashly Laguerre INDEPENDENT TRADER, INDEPENDENT TRADER-C) Encounter for education Wears glasses Edentulous High [...] mg 1 - 2 tab PO Q6H NJ N PRN pain 06/22/24 Unknown History tablet [...] Sánchez MD; Dr. Bulmaro Curtis MD~ Signed [facility]04-10-2025 [facility]03-20-2025 History of Present illness Narrative* Franco Sanchez [...] AM EDT ORAL SURGERY PROCEDURE ROOM NOTE [facility] Surgical Product(s): Routine extraction of all remaining [...] was obtained: yes Pre-op Diagnosis: Postoperative pain [601772] Chronic periodontal disease Caries PROCEDURE TIME OUT [...] Home Bev Mckeon DDS documented in this [id number] NoteORAL SURGERY PROCEDURE ROOM NOTE [facility] Surgical Product(s): Routine extraction of all remaining teeth (3,4,5,6,7,8,9,11,12,13,14,18,20,21,22,23,24,25,26,27,28,29,31,32) , alveoloplasty of x4 quadrants (UR/LR/LL/UL) and bilateral mandibular joaquim (LL/LR) removal under local anesthesia. Procedure done as clearance prior to chemo/radiation. PMH: Reviewed, no change. Antibiotic prophylaxis indicated/taken: no Discussed risks, benefits, and alternatives of treatment. All of the patient's questions were answered, and informed consent was obtained: yes Pre-op Diagnosis: Postoperative pain [682357] Chronic periodontal disease Caries PROCEDURE TIME OUT [...] Minimal (<5 ml) Disposition: Home Dari Diaz [facility]03-19-2025 NoteReached patient informed him medical clearance appt, no dental insurance on file, he will receive a bill, for our services per my planning supervisor, gave him the number to financial assistance to see if they can assist , he said thank you and will reach out now.[facility]03-19-2025 NoteReached patient informed him medical clearance appt, no dental insurance on file, he will receive a bill, for our services per my planning supervisor, gave him the number to financial assistance to see if they can assist , he said thank you and will reach out now.[facility]03-19-2025 NoteSituation: OS Procedure Insurance Ques Background: Pt is wanting to know if office submitted to insurance company and if they will be paying copay? Assessment: please contact pt to discuss Recommendation: Telephone Information: [facility] Center[facility] [id number] Evaluation note* Diagnosis Onset Date Resolution Status [...] base of tongue chronic July 02 8:20am [facility] Work Phone: 1(850) 613-798903-04-2025 Evaluation note* Diagnosis Onset Date Resolution Status [...] venous access port acute July 09 9:13am [facility] Work Phone: [phone] Evaluation note* Diagnosis Onset Date Resolution Status [...] base of tongue chronic July 15 8:43am [facility] Work Phone: 1([phone]) 618-305603-04-2025 Evaluation note* Diagnosis Onset Date Resolution Status [...] of tongue chronic August 03, 2024 7:39am [facility] Work Phone: 1([phone]) 528-405503-04-2025 Evaluation note* Diagnosis Onset Date Resolution Status [...] of tongue chronic August 10, 2024 7:39am [facility] Work Phone: [phone]) [phone] Evaluation note* Diagnosis Onset Date Resolution Status Admit Date 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 May 26 12:55pm 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 June 02 3:29pm Encounter for insertion of v enous access port acute June 03, 2024 9:24am Percutaneous endoscopic gastrostomy status acute June 03 025 9:24am Encounter for education acute [facility]20[facility] 10:16am Primary squamous cell carcin rosanna of [...] of tongue chronic August 12, 2024 12:47pm [facility] Work Phone: 1([phone]) 395-929003-04-2025 Evaluation note* Diagnosis Onset Date Resolution Status [...] of tongue chronic August 18, 2024 7:38am [facility] Work Phone: 1([phone]) 532-529403-04-2025 Evaluation note* Diagnosis Onset Date Resolution Status [...] of tongue chronic August 19, 2024 1:10pm [facility] [employer] Work Phone: [phone]) [phone] Evaluation note* Diagnosis Onset Date Resolution Status [...] base of tongue chronic September 15 1:54pm [facility] Work Phone: 1([phone]) 976-240502-24-2025 NoteSamy Cindy High from [facility] said we sent them a referral for this pt but she needs information. She said notes are on appointment notes but that she needs Pathology, Op notes and Ct scans sent separately. You can contact her at [phone] [facility] Note SPEECH LANGUAGE PATHOLOGY OUTPATIENT SWALLOW EVALUATION [...] Dubois) who presents today, 05/13/2024, at the [facility] for evaluation of right neck mass, parotid lesion and base of tongue tumor. 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 Plan: chemoradiation in [place], likely PEG placement SUBJECTIVE: Patient subjective/goals: Pt arrives early and is seen in conjunction with ENT. He is cooperative throughout. Pain: pt reports intermittent right lateral neck pain, associated with enlarged lymph nodes Social History: lives with near [place] Occupational History: retired, worked at [employer] in [place] OBJECTIVE: SWALLOWING PATIENT REPORT Onset: pt reports [...] with voicing more recently, but no pain [place] Swallow Protocol: State: alert; maintained across session [...] to consult with his oncology team in [place] about YARN BLEACHING MACHINE OPERATOR's associated with their team. He is welcome to return to [facility] for speech therapy, and is advised that I'd probably see him approximately 4 times during his chemoradiation, and 1-2 of those could be virtual. Reviewed all of the above and taught pt pharyngocize exercises, which he demonstrated in return. PLAN: Treatment Modalities: swallowing, lymphedema, dysarthrai Frequency of Visits: 2-4x/month Duration: unknown; may seek treatment elsewhere Field Health Officer Goals: 1. Patient will meet nutrition and [...] coordinate the swallow mechanism, patient will complete 37s1mrne of effortful swallows. Patient will participate in head and neck lymphedema (more content not included)...[facility]02-19-2025 NoteWe will send referrals to [facility] for: Medical Oncology (Chemotherapy) Radiation Oncology (Radiation Therapy) We will send a referral to for Speech Therapy: Linda Powers [facility] [id number]adepartment[address] Romel Robledo [facility] Work Phone: 1(493) [phone] Hospital Discharge instructions* Discharge Instructions* Steve Chery RN - 05/08/2024 8:51 AM EST Images from the original note were not included. DISCHARGE INSTRUCTIONS Robert Ron [id number] The following is a brief overview of [...] 05/13/2024 1:15 PM Simon Packer MD ENT [facility] 05/13/2024 2:00 PM Kristofer Anderson, SAFIA-YARN BLEACHING MACHINE OPERATOR SPEECH ENT [facility] 05/13/2024 3:[address] OncMed [facility] 05/22/2024 11:00 AM Sunny Wagner DDS [facility] PERIOPERATIVE DISCHARGE/HOME-GOING INSTRUCTIONS ANESTHESIA - GENERAL (ADULT) If a problem arises, you may contact your physician by calling [phone] and asking for the resident consumer safety officer for ENT service. Special Care Needs: Activity: [...] very uncomfortable and can t urinate, call [phone] or come to the emergency room. A [...] an appointment with the sleep clinic at [phone] to be evaluated and scheduled for the [...] less likely. For more informati on visit: [email or web address]/ Some medications or combinations of medications can [...] and treated if needed documented in this [id number] Surgery Surgical operation note* OP Note - Simon Packer MD - 05/08/2024 7:47 AM EST Operative Report DATE OF SERVICE: 05/08/24 PATIENT: Robert Ron PREOPERATIVE DIAGNOSIS: 1. Oropharyngeal mass POSTOPERATIVE DIAGNOSIS: 1. Oropharyngeal mass, squamous cell carcinoma PROCEDURE: Direct laryngoscopy with biopsy, CPT 25181 SURGEON: Simon Packer MD SPECIAL EDUCATION TEACHER: Resident surgeons: MD Jimenez Craig MD ANESTHESIA: [...] Packer was present for the entire procedure. [id number] Miscellaneous Notes* OP Note - Simon Packer MD - 05/08/2024 7:47 AM EST Operative Report DATE OF SERVICE: 05/08/24 PATIENT: Robert Ron PREOPERATIVE DIAGNOSIS: 1. Oropharyngeal mass POSTOPERATIVE DIAGNOSIS: 1. Oropharyngeal mass, squamous cell carcinoma PROCEDURE: Direct laryngoscopy with biopsy, CPT 10757 SURGEON: Simno Packer MD SPECIAL EDUCATION TEACHER: Resident surgeons: MD Jimenez Craig MD ANESTHESIA: [...] were discussed with the patient and/or legal b2b outside sales representative. The risks, benefits and alternatives were reviewed. Questions regarding blood transfusions were answered. The patient /or the patient s legal b2b outside sales representative agree with the plan for transfusion of blood and/or blood components. documented in this [id number] Progress note* Blood Attestation - Arnie Mcgrath MD - 05/08/2024 7:15 AM EST Blood Attestation: ATTESTATION OF INFORMED CONSENT FOR BLOOD: The transfusion of blood and/or blood components were discussed with the patient and/or legal b2b outside sales representative. The risks, benefits and alternatives were reviewed. Questions regarding blood transfusions were answered. The patient /or the patient s legal b2b outside sales representative agree with the plan for transfusion of blood and/or blood components. [facility] Work Phone: 1(589) 852-988202-11-2025 Telephone encounter Note* Telephone Encounter - Cindy [...] send dental clearance checklist. Cindy Newell RN [facility] Work Phone: 1([phone]) 198-752102-11-2025 Miscellaneous Notes* Telephone Encounter - Cindy Newell [...] checklist. Cindy Newell, RN documented in this [id number] NoteSW attempted to make Distress Screen outreach call to Pt, but Pt didn't answer the phone. SW left a message explaining reason for call and requesting a return call. SW will remain available. SHANIA Rodriguez [id number] [facility] [id number] Telephone encounter Note* Telephone Encounter - Gela Kelly LSW - 05/04/2024 10:27 AM EST SW attempted to make Distress Screen outreach call to Pt, but Pt didn't answer the phone. SW left amessage explaining reason for call and requesting a return call. SW will remain available. SHANIA Rodriguez [id number] [facility] Work Phone: [phone]) [phone] Miscellaneous Notes* Telephone Encounter - Gela Kelly LSW - 05/04/2024 10:27 AM EST SW attempted to make Distress Screen outreach call to Pt, but Pt didn't answer the phone. SW left amessage explaining reason for call and requesting a return call. SW will remain available. SHANIA Rodriguez [id number] documented in this [id number] Instructions* Patient Instructions* Evie Blank APRN-CNP - [...] for pain. Please hold all Vitamin E, Wilberforce 3, fish oil and herbal supplements for [...] otherwise contacted. ? Expect a call from [facility] one business day prior to surgery for [...] your Preparing for Your Surgery/Procedure booklet or [email or web address]/surgery if you have questions. Contact the Pre-Admission Testing department at [phone] or your surgeon's office with any questions [...] stay with you after surgery. Please call [facility] if you need transportation assistance or have concerns about going home [phone]. ? SLEEP APNEA PATIENTS: Bring your sleep apnea machine and mask. ? PLEASE BE ON TIME. A late arrival may result in the cancellation/ delay of your surgery. Thank [facility]; it is our pleasure to care for you documented in this [id number] Consult note* Evie Blank APRN-CNP - 04/28/2024 12:43 PM EST Images from the original note were not included. Pre-Admission Testing Consultation Robert Ron, [id number] 73 year old Male 04/29/2024 Consult placed to [facility] by Dr. Packer due to significant PMH of PE [facility] Triage Risk Score Total Score: 5 [...] Xarelto 2 days prior procedure, PCP at [facility] notified ( see scan doc) LABS, [...] Interviewer signature: DIEGO Shearer 7:47 AM 04/29/2024 [id number] NotePre-Admission Testing Consultation Robert Ron, [id number] 73 year old Male 04/29/2024 Consult placed to [facility] by Dr. Packer due to significant [...] Xarelto 2 days prior procedure, PCP at [facility] notified ( see scan doc) LABS, TESTS, CONS (more content not included)...[facility] [id number] Consult note* Evie Blank APRN-SALES REPRESENTATIVE PRINTING SUPPLIES - 04/28/2024 12:43 PM EST Images from the original note were not included. Pre-Admission Testing Consultation Robert Rohit, [id number] 73 year old Male 04/29/2024 Consult placed [...] Xarelto 2 days prior procedure, PCP at [facility] notified ( see scan doc) LABS, [...] Shearer 7:47 AM 04/29/2024 documented in this [id number] History of Present illness Narrative* Markos Cordoba [...] Dubois) who presents today, 04/28/2024, at the [facility] at the request of Referring Provider: [...] LNP, pres. free, 50 mcg/0.5 mL dose (CFZ=468) 01/24/2023, 01/21/2024 Influenza, injectable, high dose seasonal, trivalent, preservative free (MGU=880) 12/19/2016 Influenza, injectable, quadrivalent, preservative (JVU=572) 12/22/2020, 01/03/2023 Influenza, injectable, trivalent, preservative (SGW=688) 01/07/2024 Influenza, novel S1Z0-17, injectable, preservative-free (VXF=281) 02/03/2009 Moderna Monovalent (12+ yrs) COVID-19 vaccine, mRNA, spike protein, LNP, PF, 100 mcg/0.5 mL (RLT=047) 06/24/2020, 07/22/2020 Pneumococcal conjugate 20 valent (PCV20), polysaccharide WST799 conjugate, adjuvant, PF (QBL=700) 01/21/2024 Respiratory syncytial virus (RSV), vaccine, recombinant, protein subunit RSV prefusion F, adjuvant reconstituted, 0.5 mL, preservative free (WJG=498) 01/24/2023 Zoster Recombinant (RZV,Shingles) (WWZ=096) 08/20/2019 PHYSICAL EXAM: Vital Signs: Pulse 82 [...] if positive for malignancy -recommend referrals to YARN BLEACHING MACHINE OPERATOR (may require MBS prior to treatment), nutrition, [...] any questions or concerns. Simon Packer MD Secondary Set Up Man Department of Otolaryngology - Head and Neck Surgery [facility], [facility] Pager: [phone] documented in this encounterMetroHealthConsult note Author Isaiah Schwartz [facility] Note Date/Time July 09, 2024 12: 24pm [facility] Medical Records Department [address] [place] [address] Anesthesia Postop Eval I 07/09/24 1221 MR#: [id number] Acct: [id number] Name: ROBERT RON Rep #:[id number] : 1950 73 From: Isaiah rodriguez ELECTRONIC GAME DEVELOPER PCP: Dr. Bulmaro Curtis MD Status:REG S DC Y Race: C Location: [place] [address] Anesthesia: Postop Eval I Current Vital Signs [...] CRNA Cosigner Signature: Date CC: ~ Signed [facility] Work Phone: Discharge summary Author Daniel Sánchez [facility] Note Date/Time July 09, 2024 12: 11pm [facility] Medical Records Department [address] [place] [address] Instructions for Home/Discharge Instructions 07/09/24 1207 MR#: [id number] Acct: [id number] Name: ROBERT RON Rep #:[id number] : [...] Provider: Bulmaro Curtis Chi Instructions Print Language: Latvian Discharge Orders/Prescriptions Prescriptions: Continued rivaroxaban 15 mg [...] CC: Dr. 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 [facility] Work Phone: Evaluation note* Diagnosis Onset Date Resolution Status History of pulmonary embolism acute Lung nodule acute Nicotine dependence, cigarettes, 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 Lung nodule acute Nicotine dependence, cigarettes, in remission acute BMI 38.0-38.9,adult chronic 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 [facility] Work Phone: evaluation note* Diagnosis Onset Date Resolution Status History of pulmonary embolism acute Nicotine dependence, cigarettes, 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 [facility] Work Phone: evaluation note* Diagnosis Onset Date Resolution Status History of pulmonary embolism acute 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, cigarettes, in remission chronic [facility] Work Phone: Evaluation note* Diagnosis Postoperative [...] major salivary glands documented [facility] this encounter [facility] N[facility]* Diagnostic X-Ray (Routine) - Closed Specialty Diagnoses / Procedures Referred By Ca fatima Referred To Contact Radiology Diagnoses Neck mass Procedures CT NEURO IMAGE IMPORT(TERESA) DOWNLOAD POWERSHARE IMAGES TO Simon Santos MD [address] [place] [address] Phone: tel: fax: [facility] DI[facility]STIC [facility]OLOG[facility] [address] [place] [address] Phone: tel: Referral ID Status Reason Start Date Expiration Date Visits Re quested Visits Authorized [id number] Closed 04/17/2024 04/17/2025 1 1 [facility] for visit Narrative* Auth/Cert (Routine) Specialty Diagnoses / Procedures Referred By Ca fatima Referred To Contact General Surgery Diagnoses Neck mass Warthin's tumor Oropharyngeal mass Neck mass [R22.1] 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] Procedures LARYNGOSCOPY, DIRECT, OPERATIVE, W/BIOPSY; BRONCHOSCOPY, RIGID/FLEX, W/WO FLUORO GUID; W/BRONCHIAL/ENDOBRONCHI AL BIOPSY, SINGLE/MULTIPLE LARYNGOSCOPY, DIRECT ESOPHAGOSCOPY RIGID Simon Packer MD [address] [place] [address] Phone: tel: fax: [facility] [address] [place] [phone] Phone: tel: Referral ID Status Reason Start Date Expiration Date Visits Re quested Visits Authorized [id number] 3 3 [facility] Chief Complaint and Reason for Visit Chief [...] June 03, 2024 9:24am Percutaneous endoscopic gastrostomy [facility] June 03, 2024 9:24am Encounter for education [...] August 23, 2020 1 0:25am Power of Metal Wire Coating Operator Yes August 24, 2020 8:46am Advance Directive Response Recorded Date/ Time Advance Directives Yes July 28, 2013 2:11pm Living Will Yes August 23, 2020 9 :25am Power of Metal Wire Coating Operator Yes August 24, 2020 7:46am Advance Directive Response Recorded Date/ Time Advance Directives Yes July 28, 2013 3:11pm Living Will Yes December 17, 2022 7:54am Power of Metal Wire Coating Operator No November 7:54am Advance Directive Response Recorded Date/ Time Living Will Yes June 22, 2024 5:28pm Do you have a Healthcare Pow er of Metal Wire Coating Operator? Yes June 22, 2024 5:28pm Name of Medical Power of Metal Wire Coating Operator POA GENARO RON June 22, 2024 5:28pm Advance Directives Yes July 28, 2013 3:11pm Advance Directive Response Recorded Date/ Time Advance Directives on File No July 06, 2024 9:14am Living Will Yes July 06, 2024 9:14am Do you have a Healthcare Pow er of Metal Wire Coating Operator? Yes July 06, 2024 9:14am Name of Medical Power of Metal Wire Coating Operator Liat Ron July 06, 2024 9:14am Advance Directives Yes July 06, 025 9:14am Living Will Yes June 22, 2024 5:28pm Do you have a Healthcare Pow er of Metal Wire Coating Operator? Yes June 22, 2024 5:28pm Name of Medical Power of Metal Wire Coating Operator POA GENARO RON June 22, 2024 5:28pm Living Will No July 07, 2024 10:45am Do you have a Healthcare Pow er of Metal Wire Coating Operator? No July 07, 2024 10:45am Advance Directive Response Recorded Date/ Time Advance Directives Yes July 13 8:37am Advance Directives on File No July 13, 2024 8:14am Living Will Yes July 13, 2024 8:14am Do you have a Healthcare Pow er of Metal Wire Coating Operator? Yes July 13, 2024 8:14am Name of Medical Power of Metal Wire Coating Operator Liat Ron July 13, 2024 8:14am Living Will Yes June 22, 2024 5:28pm Do you have a Healthcare Pow er of Metal Wire Coating Operator? Yes June 22, 2024 5:28pm Name of Medical Power of Metal Wire Coating Operator LILIA GENARO RON June 22, 2024 5:28pm Living Will No July 07, 2024 10:45am Do you have a Healthcare Pow er of Metal Wire Coating Operator? No July 07, 2024 10:45am Advance Directive Response Recorded Date/ Time Advance Directives on File No July 272024 9:35am Living Will Yes July 27, 2024 9: 35am Do you have a Healthcare Pow er of Metal Wire Coating Operator? Yes July 27, 2024 9:35am Name of Medical Power of Metal Wire Coating Operator Liat oRn July 27, 2024 9:35am Advance Directives Yes July 27, 2024 9:35am Living Will Yes June 22, 2024 5:28pm Do you have a Healthcare Pow er of Metal Wire Coating Operator? Yes June 22, 2024 5:28pm Name of Medical Power of Metal Wire Coating Operator LILIA GENARO RON June 22, 2024 5:28pm Living Will No July 07, 2024 10:45am Do you have a Healthcare Pow er of Metal Wire Coating Operator? No July 07, 2024 10:45am Advance Directive Response Recorded Date/ Time Advance Directives on File No July 232024 7:56am Living Will Yes August 10, 2024 7 :56am Do you have a Healthcare Pow er of Metal Wire Coating Operator? Yes August 10, 2024 7:56am Name of Medical Power of Metal Wire Coating Operator Liat Ron August 10, 2024 7:56am Advance Directives Yes August 10 7:56am Living Will Yes June 22, 2024 5:28pm Do you have a Healthcare Pow er of Metal Wire Coating Operator? Yes June 22, 2024 5:28pm Name of Medical Power of Metal Wire Coating Operator JON GENARO RON June 22, 2024 5:28pm Living Will No July 07, 2024 10:45am Do you have a Healthcare Pow er of Metal Wire Coating Operator? No July 07, 2024 10:45am Advance Directive Response Recorded Date/ Time Advance Directives on File No July 242024 9:26am Living Will Yes August 18, 2024 9 :26am Do you have a Healthcare Pow er of Metal Wire Coating Operator? Yes August 18, 2024 9:26am Name of Medical Power of Metal Wire Coating Operator Liat Ron August 18, 2024 9:26am Advance Directives Yes August 18 9:26am Living Will Yes June 22, 2024 5:28pm Do you have a Healthcare Pow er of Metal Wire Coating Operator? Yes June 22, 2024 5:28pm Name of Medical Power of Metal Wire Coating Operator JON GENARO RON June 22, 2024 5:28pm Living Will No July 07, 2024 10:45am Do you have a Healthcare Pow er of Metal Wire Coating Operator? No July 07, 2024 10:45am Summary Purpose [...] Status: Inactive Member Role Status Dates Dr. Blumaro Curtis MD Primary Care Provider Active Start: [...] 2024 End: June 29, 2024 Ashly Laguerre INDEPENDENT TRADER, INDEPENDENT TRADER-C Attending Provider Active Start: June 29, 2024 [...] 03, 2024 End: August 03, 2024 Dr. Bumlaro Curtis MD Referring Provider Active Start: August [...] MD Primary Care Provider Active Dianna Knight INDEPENDENT TRADER, INDEPENDENT TRADER-C Attending Provider Active Team Status: Active Member Role Status Dates Dr. Bulmaro Curtis MD Primary Care Provider Active Dr. Leonel Carolina DO Attending Provider, Referring Pro vider Active Team Status: Inactive Member Role Status Dates Dr. Bulmaro Curtis MD Primary Care Provider, Referring Provider Active Dianna Knight NP, INDEPENDENT TRADER-C Attending Provider Active Team Status: Inactive Member Role Status Dates Dr. Bulmaro Curtis MD Primary Care Provider Active Dr. Leonel Carolina DO Attending Provider, Referring Pro vider Active Team Status: Inactive Member Role Status Dates Dr. Bulmaro Curtis MD Primary Care Provider Active Dianna Knight INDEPENDENT TRADER, INDEPENDENT TRADER-C Attending Provider, Referrin g Provider Active Team [...] Provider Active S tart: July 10, 2024 Head Irrigator Relationship Specialty Start Date End Date Evie Blank APRN-SALES REPRESENTATIVE [employer] [address] [place] [id number] FAMILY ENGAGEMENT SPECIALIST Anesthesiology 05/23/24 Kristofer Anderson CCC-YARN BLEACHING MACHINE OPERATOR [address] [place], [place] [id number] Speech Language Pathologist Speech Pathology 05/23/24 Simon Packer MD [address] [place] [id number] Physician Otolaryngology 05/23/24 Team Status: Active Member [...] Provider Active S tart: July 17, 2024 Head Irrigator Relationship Specialty Start Date End Date Evie Blank APRN-SALES REPRESENTATIVE [employer] [address] [place] [id number] FAMILY ENGAGEMENT SPECIALIST Anesthesiology 05/23/24 Kristofer Anderson CCC-YARN BLEACHING MACHINE OPERATOR [address] [place], [place] [id number] Speech Language Pathologist Speech Pathology 05/23/24 Simon Packer MD [address] [place] [id number] Physician Otolaryngology 05/23/24 Team Status: Active Member [...] Status: Active Member Role Status Dates Dr. Blumaro Curtis MD Primary Care Provider Active Start: August 18, 2024 Dr. Cipriano Layne DO Attending Provider Active Start: August 18, 2024 Dr. Franco Pérez MD Referring Provider Active S tart: August 18, 2024 Head Irrigator Relationship Specialty Start Date End Date Evie Blank APRN-SALES REPRESENTATIVE [employer] [address] [place] [id number] FAMILY ENGAGEMENT SPECIALIST Anesthesiology 05/23/24 Kristofer Anderson, [facility]-YARN BLEACHING MACHINE OPERATOR [address] [place], [place] [id number] Speech Language Pathologist Speech Pathology 05/23/24 Simon Packer MD [address] [place], [place] [id number] Physician Otolaryngology 05/23/24 Team Status: Inactive Member [...] August 19, 2024 End: August 19, 2024 Head Irrigator Relationship Specialty Start Date End Date Evie Blank APRN-SALES REPRESENTATIVE [employer] [address] [place] [address] FAMILY ENGAGEMENT SPECIALIST Anesthesiology 05/23/24 Kristofer Anderson, [facility]-YARN BLEACHING MACHINE OPERATOR [address] [place], [place] [id number] Speech Language Pathologist Speech Pathology 05/23/24 Simon Packer MD [address] [place] [id number] Physician Otolaryngology 05/23/24 Team Status: Inactive Member [...] and content) DATE CREATED AUTHOR 08/21/2024 [facility] DATE CREATED AUTHOR AUTHOR'S ORGANIZ ATION 09/22/2024 [facility] Reason for Visit (unrecogniz ed section [...] BE BASED ON THE PRIMARY CLINICAL RECORDS. [facility]. provides no warranty or guarantee of the accuracy or completeness of information in this document.
--- OUTSIDE RECORDS SUMMARY | 2024-09-25 23:26 | XMS RPT_ITS | CCD ---
Author Organization [facility] CliniSyid Care Team Providers Care Food Supervisor Name Role Phone Dr. Bulmaro Curtis Chi Primary Care Provider Ever, Dr. Bulmaro Goode Referring Provider DONTA Thompson Attending Provider Dr. Andry Juárez Attending Provider DONTA Thompson Referring Provider Dr. Leonel Carolina Attending Provider Ever, Dr. Bulmaro Goode Primary Care Provider Ever, Dr. Bulmaro Goode Referring Provider Dr. Leonel Carolina Attending Provider Eugene NETWORKING TECHNICIAN, NETWORKING TECHNICIAN-C Dianna Attending Provider Ever, Dr. Bulmaro Goode Primary Care Provider Ever, Dr. Bulmaro Goode Referring Provider Dr. Leonel Carolina Attending Provider Eugene NETWORKING TECHNICIAN, NETWORKING TECHNICIAN-C Dianna Attending Provider Ever, Dr. Bulmaro Goode [...] Provider Ochoa ALVARENGA, Dr. Gregory Referring Provider [phone] Ever ALVARENGA, Dr. Bulmaro Goode Referring Provider Beto ALVARENGA, Dr. Gamez Attending Provider Gonzalo ALVARENGA, Dr. Daniel Gonzales Attending Provider Beto ALVARENGA, Dr. Gamez Referring Provider Shade NETWORKING TECHNICIAN-C, Ashly Attending Provider Gonzalo ALVARENGA, Dr. Daniel Gonzales Referring Provider Gonzalo ALVARENGA, Dr. Daniel Gonzales Other Provider Marquita ALVARENGA, Dr. Wilde Attending Provider Mario ALVARENGA, Dr. Sigala Referring Provider Humphrey CESPEDES, Elicia Attending Provider Elicia Yin PA-C Referring Provider Dr. Franco Pérez MD Referring Provider Dr. Cipriano Layne DO Referring Provider Beto ALVARENGA, Dr. Gamez Referring Provider Markiv BED AND BREAKFAST INNKEEPER-FRONT FACER, Evie Unavailable Karin [facility]-MODERATE NEEDS TEACHER, Kristofer Flores Unavailable Jenniferva china Packer MD, Simon Unavailable Dr. Franco Pérez MD Referring Provider Beto ALVARENGA, Dr. Gamez Referring Provider Beto ALVARENGA, Dr. Gamez Referring Provider Ever ALVARENGA, Dr. Bulmaro Chi Primary Care Provider [phone] Dr. Franco Pérez MD Referring Provider Elicia Yin PA-C Attending Provider Elicia Yin PA-C Referring Provider Dr. Franco Pérez MD Referring Provider [phone] Dr. Franco Pérez MD Referring Provider PROVIDER, [...] e Dr. Franco Pérez MD Referring Provider [phone] Xi, Cipriano Referring Unavailable Xi, Cipriano Attending [...] Unavailable Ever, Bulmaro Chi Primary Care Unavailable aDniel Sánchez Attending Unavailable Ever, Bulmaro Chi Referring [...] Ever, Bulmaro Chi Primary Care Unavailable Cipriano Lanye Referring Unavailable Cipriano Layne Attending Unavailable Ever, [...] [Sulfa (Sulfonamide Antibiotics)] Allergy to substance [address] [facility] (10 sources) Sulfonamides (Antibiotic); Translations: [SULFA ANTIBIOTICS] Propensity to adverse reactions to drug 0 [facility] Medications Current Medications Medication Drug Class(es) [...] to 3 days. 12 Tablet 06/11/2024 06/14/2024 [id number] 200 actuat albuterol 0.09 mg/actuat metered dose [...] 31, 2023 11:07am Start: 09-12-2022 End: 07-31-2023 Alacsxgkfl-Jcidzctp-Wyblenbh ol (Breztri Aerosphere) 160-9-4.8 mcg/actuation HFA aerosol inhaler Discontinued 2 NMA INHALATION TWICE A DAY 10.7 September 12, 2022 12:00am July 31, 2023 11:07am Start: 09-12-2022 End: 07-31-2023 Pcxumtcqha-Khfqarsx-Qszoywhi ol (Breztri Aerosphere) 160-9-4.8 mcg/actuation HFA aerosol [...] 17, 2020 8:35am Start: 08-17-2020 End: 11-30-2021 Yrgrljoghje-Wqklzklse-Ekmovl er (Trelegy Ellipta) 100-62.5-25 mcg blister with device Discontinued 1 NMA INHALATION DAILY August 17, 2020 12:00am November 30, 2021 10:08am Start: 08-17-2020 End: 11-30-2021 Cgvndrumcko-Kvtfvumgc-Yqedqs er (Trelegy Ellipta) 100-62.5-25 mcg blister with device Discontinued 1 INH INHALATION DAILY August 17, 2020 12:00am November 30, 2021 10:08am Start: 08-17-2020 End: 11-30-2021 Pankgozalcd-Mgtxcciaq-Vkzvdz er (Trelegy Ellipta) 100-62.5-25 mcg blister with [...] 2.5 ug by inhalation once daily Tiotropium Blunt (Spiriva Respimat) 2.5 mcg/actuation mist Active 2 [...] 11-30-2021 take 1 puff(s) by [facility] twice daily Budesonide-Formoterol (Symbicort) 160-4.5 mcg/actuation HFA aerosol inhaler Active 2 PUFF INHALATION TWICE A DAY November 30, 2021 12:00am administer with spacer, rinse mouth after each use Start: 11-30-2021 take 1 puff(s) by [facility] twice daily Budesonide-Formoterol (Symbicort) 160-4.5 mcg/actuation [...] (Unsp spec) [#/Vol] 0.36 10*3/uL Low 0.83-4.51 [facility] Absolute neutrophil countOrd ered By: Franco Pérez on 09-15-2024 Neutrophils (Bld) [#/Vol] 6.4 10*3/uL 2.0-7.7 [facility] Anion gap in Serum or Plasma Ordered By: Franco Pérez on 09-15-2024 Anion gap [Moles/Vol] 16 mmol/L High 5-15 [facility] Automated lymphocyte count a s percentage of total leukocytesOrdered By: Franco Anderson on 09-15-2024 Lymphocytes/100 WBC Auto (Unsp spec) 4.3 % Low 19-41 [facility] BUN/creatinine ratioOrdered By: Franco Anderson on 09-15-2024 Urea nitrogen/Creatinine [Mass ratio] 26.6 mg/mg High 10-20 [facility] Basophil percentageOrdered B y: Franco Pérez on 09-15-2024 Basophils/100 WBC (Bld) 0.8 % 0-1 [facility] Bilirubin, totalOrdered By: Franco [facility] on 09-15-2024 Bilirubin [Mass/Vol] 1.38 mg/dL High 0.00-1.30 [facility] CBC W/Diff, Automatedon 08-24 Absolute Lymph 0.36 X10 3/uL Low 0.83-4.51 [facility] Comment on above: Performed By: #### L 504.2610, L506.0400, L501.9520, L501.2300, L501.5200, L100.0100, L500.4050 ####[facility] [address] [place], [address] Absolute Neut 6.4 X10 3/uL Normal 2.0-7.7 [facility] Comment on above: Performed By: #### L 504.2610, L506.0400, L501.9520, L501.2300, L501.5200, L100.0100, L500.4050 ####[facility] [address] [place], [address] Basophils/100 WBC (Bld) 0.8 % Normal 0-1 [facility] Comment on above: Performed By: #### L 504.2610, L506.0400, L501.9520, L501.2300, L501.5200, L100.0100, L500.4050 ####[facility] [address] [place], [address] Eosinophils/100 WBC (Bld) 1.6 % Normal 0-5 [facility] Comment on above: Performed By: #### L 504.2610, L506.0400, L501.9520, L501.2300, L501.5200, L100.0100, L500.4050 ####[facility] [address] [place], [address] Erythrocyte distribution width (RBC) [Ratio] 17.9 % High 11.6-14.6 [facility] Comment on above: Performed By: #### L 504.2610, L506.0400, L501.9520, L501.2300, L501.5200, L100.0100, L500.4050 ####[facility] [address] [place], [address] Hematocrit (Bld) [Volume fraction] 38.3 % Low 40-54 [facility] Comment on above: Performed By: #### L 504.2610, L506.0400, L501.9520, L501.2300, L501.5200, L100.0100, L500.4050 ####[facility] [address] [place], [address] Hemoglobin (Bld) [Mass/Vol] 12.6 g/dL Low 13.0-16.5 [facility] Comment on above: Performed By: #### L 504.2610, L506.0400, L501.9520, L501.2300, L501.5200, L100.0100, L500.4050 ####[facility] [address] [place], [address] IG% 2.200 High 0.0-0.9 [facility] Comment on above: Result Comment: IG% - Immature Granulocytes (promyelocytes, myelocytes andmetamyelocytes) > 1% indicates that a LEFT SHIFT is Present. Performed By: #### L 504.2610, L506.0400, L501.9520, L501.2300, L501.5200, L100.0100, L500.4050 ####[facility] [address] [place], [address] Lymphocytes/100 WBC (Bld) 4.3 % Low 19-41 [facility] Comment on above: Performed By: #### L 504.2610, L506.0400, L501.9520, L501.2300, L501.5200, L100.0100, L500.4050 ####[facility] [address] [place], [address] MCH (RBC) [Entitic mass] 30.5 pg Normal 27.0-32.0 [facility] Comment on above: Performed By: #### L 504.2610, L506.0400, L501.9520, L501.2300, L501.5200, L100.0100, L500.4050 ####[facility] [address] [place], [address] MCHC (RBC) [Mass/Vol] 32.9 g/dL Normal 32-36 [facility] Comment on above: Performed By: #### L 504.2610, L506.0400, L501.9520, L501.2300, L501.5200, L100.0100, L500.4050 ####[facility] [address] [place], [address] MCV (RBC) [Entitic vol] 92.7 fL Normal 80-94 [facility] Comment on above: Performed By: #### L 504.2610, L506.0400, L501.9520, L501.2300, L501.5200, L100.0100, L500.4050 ####[facility] [address] [place], [address] Monocytes/100 WBC (Bld) 14.9 % High 0-10 [facility] Comment on above: Performed By: #### L 504.2610, L506.0400, L501.9520, L501.2300, L501.5200, L100.0100, L500.4050 ####[facility] [address] [place], [address] Neutrophils/100 WBC (Bld) 76.2 % High 47-70 [facility] Comment on above: Performed By: #### L 504.2610, L506.0400, L501.9520, L501.2300, L501.5200, L100.0100, L500.4050 ####[facility] [address] [place], [address] Nucleated RBC (Bld) [#/Vol] 0 10*3/uL Normal 0-5 [facility] Comment on above: Performed By: #### L 504.2610, L506.0400, L501.9520, L501.2300, L501.5200, L100.0100, L500.4050 ####[facility] [address] [place], [address] Platelet mean volume (Bld) [Entitic vol] 10.6 fL Normal 6.2-12.0 [facility] Comment on above: Performed By: #### L 504.2610, L506.0400, L501.9520, L501.2300, L501.5200, L100.0100, L500.4050 ####[facility] [address] [place], [address] Platelets (Bld) [#/Vol] 87 10*3/uL Low 150-450 [facility] Comment on above: Performed By: #### L 504.2610, L506.0400, L501.9520, L501.2300, L501.5200, L100.0100, L500.4050 ####[facility] [address] [place], [address] RBC (Bld) [#/Vol] 4.13 10*6/uL Low 4.6-6.2 [facility] Comment on above: Performed By: #### L 504.2610, L506.0400, L501.9520, L501.2300, L501.5200, L100.0100, L500.4050 ####[facility] [address] [place], [place], [phone] RDW SD 60.4 fl High 35.1-43.9 [facility] Comment on above: Performed By: #### L 504.2610, L506.0400, L501.9520, L501.2300, L501.5200, L100.0100, L500.4050 ####[facility] [address] [place], [place], [phone] WBC (Bld) [#/Vol] 8.4 10*3/uL Normal 4.4-11.0 [facility] Comment on above: Performed By: #### L 504.2610, L506.0400, L501.9520, L501.2300, L501.5200, L100.0100, L500.4050 ####[facility] [address] [place], [place], [id number] Carbon dioxide, total [Moles /volume] in Central venous bloodOrdered By: Franco Pérez on 09-15-2024 CO2 [Moles/Vol] 23.5 mmol/L 21.0-32.0 [facility] Chloride assayOrdered By: Kala Pérez on 09-15-2024 Chloride [Moles/Vol] 96 mmol/L Low 98-108 [facility] Comprehensive Metabolic Prof ilon 09-15-2024 Albumin [Mass/Vol] 3.5 g/dL Normal 3.4-4.8 [facility] Comment on above: Performed By: #### L 504.2610, L506.0400, L501.9520, L501.2300, L501.5200, L100.0100, L500.4050 ####[facility] [address] [place], [address] Albumin/Globulin [Mass ratio] 1.2 {ratio} Normal 0.9-2.4 [facility] Comment on above: Performed By: #### L 504.2610, L506.0400, L501.9520, L501.2300, L501.5200, L100.0100, L500.4050 ####[facility] [address] [place], [address] ALK PHOS 113 U/L Normal 40-129 [facility] Comment on above: Performed By: #### L 504.2610, L506.0400, L501.9520, L501.2300, L501.5200, L100.0100, L500.4050 ####[facility] [address] [place], [address] ALT [Catalytic activity/Vol] 13 U/L Normal <=46 [facility] Comment on above: Performed By: #### L 504.2610, L506.0400, L501.9520, L501.2300, L501.5200, L100.0100, L500.4050 ####[facility] [address] [place], [address] AST [Catalytic activity/Vol] 19 U/L Normal <=37 [facility] Comment on above: Performed By: #### L 504.2610, L506.0400, L501.9520, L501.2300, L501.5200, L100.0100, L500.4050 ####[facility] [address] [place], [address] Bilirubin [Mass/Vol] 1.38 mg/dL High 0.00-1.30 [facility] Comment on above: Performed By: #### L 504.2610, L506.0400, L501.9520, L501.2300, L501.5200, L100.0100, L500.4050 ####[facility] [address] [place], [address] BUN/CRE 26.6 RATIO High 10-20 [facility] Comment on above: Performed By: #### L 504.2610, L506.0400, L501.9520, L501.2300, L501.5200, L100.0100, L500.4050 ####[facility] [address] [place], [address] Calcium [Mass/Vol] 9.4 mg/dL Normal 7.6-11.0 [facility] Comment on above: Performed By: #### L 504.2610, L506.0400, L501.9520, L501.2300, L501.5200, L100.0100, L500.4050 ####[facility] [address] [place], [address] Chloride [Moles/Vol] 96 mmol/L Low 98-108 [facility] Comment on above: Performed By: #### L 504.2610, L506.0400, L501.9520, L501.2300, L501.5200, L100.0100, L500.4050 ####[facility] [address] [place], [address] CO2 [Moles/Vol] 23.5 mmol/L Normal 21.0-32.0 [facility] Comment on above: Performed By: #### L 504.2610, L506.0400, L501.9520, L501.2300, L501.5200, L100.0100, L500.4050 ####[facility] [address] [place], [address] Creatinine [Mass/Vol] 1.16 mg/dL Normal 0.70-1.20 [facility] Comment on above: Performed By: #### L 504.2610, L506.0400, L501.9520, L501.2300, L501.5200, L100.0100, L500.4050 ####[facility] [address] [place], [address] ECRCL 77.16 ml/min Normal 50-250 [facility] Comment on above: Performed By: #### L 504.2610, L506.0400, L501.9520, L501.2300, L501.5200, L100.0100, L500.4050 ####[facility] [address] [place], [address] GAP 16 High 5-15 [facility] Comment on above: Performed By: #### L 504.2610, L506.0400, L501.9520, L501.2300, L501.5200, L100.0100, L500.4050 ####[facility] [address] [place], [place], [phone] GFR/1.73 sq M.predicted among non-blacks MDRD (S/P/Bld) [Vol rate/Area] 67 mL/min/{1.73_m2} Normal >60 [facility] Comment on above: Result Comment: mL/m in/1.73m2 CKD-EPI Creatinine Equation (2020) Performed By: #### L 504.2610, L506.0400, L501.9520, L501.2300, L501.5200, L100.0100, L500.4050 ####[facility] [address] [place], [place], [phone] Globulin (S) [Mass/Vol] 2.9 g/dL Normal 2.2-4.2 [facility] Comment on above: Performed By: #### L 504.2610, L506.0400, L501.9520, L501.2300, L501.5200, L100.0100, L500.4050 ####[facility] [address] [place], [address] Glucose [Mass/Vol] 160 mg/dL High 70-99 [facility] Comment on above: Performed By: #### L 504.2610, L506.0400, L501.9520, L501.2300, L501.5200, L100.0100, L500.4050 ####[facility] [address] [place], [address] Potassium [Moles/Vol] 3.3 mmol/L Normal 3.3-5.1 [facility] Comment on above: Performed By: #### L 504.2610, L506.0400, L501.9520, L501.2300, L501.5200, L100.0100, L500.4050 ####[facility] [address] [place], [address] Sodium [Moles/Vol] 135 mmol/L Normal 133-145 [facility] Comment on above: Performed By: #### L 504.2610, L506.0400, L501.9520, L501.2300, L501.5200, L100.0100, L500.4050 ####[facility] [address] [place], [address] T PROT 6.4 g/dL Normal 5.9-8.4 [facility] Comment on above: Performed By: #### L 504.2610, L506.0400, L501.9520, L501.2300, L501.5200, L100.0100, L500.4050 ####[facility] [address] [place], [address] Urea nitrogen [Mass/Vol] 31 mg/dL High 4-19 [facility] Comment on above: Performed By: #### L 504.2610, L506.0400, L501.9520, L501.2300, L501.5200, L100.0100, L500.4050 ####[facility] [address] [place], [address] Eosinophil percentageOrdered By: Franco Pérez on 09-15-2024 Eosinophils/100 WBC (Bld) 1.6 % 0-5 [facility] Erythrocyte distribution wid th ratioOrdered By: Franco Pérez on 09-15-2024 Erythrocyte distribution width (RBC) [Ratio] 17.9 % High 11.6-14.6 [facility] Erythrocyte distribution wid th standard deviationOrdered By: [facility] on 09-15-2024 Erythrocyte distribution width (RBC) [Ratio] 60.4 fl High 35.1-43.9 [facility] Glomerular filtration rate ( GFR) estimation/1.73 sq m using serum, plasma, or whole bOrdered By: [facility] on 09-15-2024 GFR/1.73 sq M.predicted among non-blacks MDRD (S/P/Bld) [Vol rate/Area] 67 mL/min/{1.73_m2} >60 [facility] Comment on above: mL/min/1.73m2 CKD-EP I Creatinine Equation (2020) Hematocrit Auto (Bld) [Volum e fraction]Ordered By: Franco Pérez on 09-15-2024 Hematocrit (Bld) [Volume fraction] 38.3 % Low 40-54 [facility] Hemoglobin measurementOrdere d By: Franco Pérez on 09-15-2024 Hemoglobin (Bld) [Mass/Vol] 12.6 g/dL Low 13.0-16.5 [facility] Immature granulocytes/100 WB C Auto (Bld)Ordered By: Franco Pérez on 09-15-2024 Immature granulocytes/100 WBC (Bld) 2.200 % High 0.0-0.9 [facility] Comment on above: IG% - Immature Granu locytes (promyelocytes, myelocytes and metamyelocytes) > 1% indicates that a LEFT SHIFT is Present. LDHon 09-15-2024 LDH 238 U/L Normal 87-241 [facility] Comment on above: Order Comment: 1 Performed By: #### L 504.2610, L506.0400, L501.9520, L501.2300, L501.5200, L100.0100, L500.4050 ####[facility] [address] [place], [place], [id number] Laboratory - Chemistry and C hemistry - challengeOrdered By: Franco Pérez on 09-15-2024 AST [Catalytic activity/Vol] 19 U/L <38 [facility] Lactate dehydrogenase (LDH) measurementOrdered By: Franco Pérez on 09-15-2024 LDH [Catalytic activity/Vol] 238 U/L 87-241 [facility] MCV (mean corpuscular volume ) determinationOrdered By: Franco Pérez on 09-15-2024 MCV (RBC) [Entitic vol] 92.7 fL 80-94 [facility] Magnesiumon 09-15-2024 Magnesium [Mass/Vol] 1.8 mg/dL Normal 1.5-2.2 [facility] Comment on above: Performed By: #### L 504.2610, L506.0400, L501.9520, L501.2300, L501.5200, L100.0100, L500.4050 ####[facility] [address] [place], [place], [id number] Magnesium measurement (mass/ volume)Ordered By: Franco Pérez on 09-15-2024 Magnesium (Unsp spec) [Mass/Vol] 1.8 mg/dL 1.5-2.2 [facility] Mean corpuscular hemoglobin (MCH) determinationOrdered By: Franco Pérez on 09-15-2024 MCH (RBC) [Entitic mass] 30.5 pg 27.0-32.0 [facility] Mean corpuscular hemoglobin concentration (MCHC) determinationOrdered By: Franco Pérez on 09-15-2024 MCHC (RBC) [Mass/Vol] 32.9 g/dL 32-36 [facility] Mean platelet volume determi nationOrdered By: Franco Pérez on 09-15-2024 Platelet mean volume (Bld) [Entitic vol] 10.6 fL 6.2-12.0 [facility] Monocyte percentageOrdered B y: Franco Pérez on 09-15-2024 Monocytes/100 WBC (Bld) 14.9 % High 0-10 [facility] Neutrophil percentageOrdered By: Franco Pérez on 09-15-2024 Neutrophils/100 WBC (Bld) 76.2 % High 47-70 [facility] Nucleated red blood cell per centageOrdered By: Franco Pérez on 09-15-2024 Nucleated RBC/100 WBC (Bld) [Ratio] 0 % 0-5 [facility] Oncology Visit Reporton 08-24 Oncology Visit Report Normal [facility] Phosphoruson 09-15-2024 Phosphate [Mass/Vol] 2.7 mg/dL Normal 2.7-4.5 [facility] Comment on above: Performed By: #### L 504.2610, L506.0400, L501.9520, L501.2300, L501.5200, L100.0100, L500.4050 ####[facility] [address] [place], [address] Platelet countOrdered By: Kala Pérez on 09-15-2024 Platelets (Bld) [#/Vol] 87 10*3/uL Low 150-450 [facility] Potassium measurement (mass/ volume)Ordered By: Franco Pérez on 09-15-2024 Potassium (Unsp spec) [Mass/Vol] 3.3 mmol/L 3.3-5.1 [facility] RBC Auto (Bld) [#/Vol]Ordere d By: Franco Pérez on 09-15-2024 RBC (Bld) [#/Vol] 4.13 10*6/uL Low 4.6-6.2 [facility] Radiation Oncology Visiton 0 09-15-2024 Radiation Oncology Visit Normal [facility] Serum creatinine measurement (mass/volume)Ordered By: Franco Pérez on 09-15-2024 Creatinine [Mass/Vol] 1.16 mg/dL 0.70-1.20 [facility] Serum globulin measurementOr dered By: Franco Pérez on 09-15-2024 Globulin (S) [Mass/Vol] 2.9 g/dL 2.2-4.2 [facility] Serum glucose measurement (m ass/volume)Ordered By: Franco Pérez on 09-15-2024 Glucose [Mass/Vol] 160 mg/dL High 70-99 [facility] Serum or plasma alanine cabral otransferase (ALT) measurementOrdered By: Franco Pérez on 09-15-2024 ALT [Catalytic activity/Vol] 13 U/L <47 [facility] Serum or plasma albumin blaine urement (mass/volume)Ordered By: Franco Pérez on 09-15-2024 Albumin [Mass/Vol] 3.5 g/dL 3.4-4.8 [facility] Serum or plasma albumin/glob ulin mass ratioOrdered By: Franco Pérez on 09-15-2024 Albumin/Globulin [Mass ratio] 1.2 {ratio} 0.9-2.4 [facility] Serum or plasma alkaline zee sphatase measurementOrdered By: Franco Pérez on 09-15-2024 ALP [Catalytic activity/Vol] 113 U/L 40-129 [facility] Serum or plasma calcium blaine urement (mass/volume)Ordered By: Franco Pérez on 09-15-2024 Calcium [Mass/Vol] 9.4 mg/dL 7.6-11.0 [facility] Serum or plasma urea nitroge n measurement (mass/volume)Ordered By: Franco Pérez on 09-15-2024 Urea nitrogen [Mass/Vol] 31 mg/dL High 4-19 [facility] Sodium levelOrdered By: Jonathon Pérez on 09-15-2024 Sodium [Moles/Vol] 135 mmol/L 133-145 [facility] T4 Free Directon 09-15-2024 T4 FREE DIRECT 1.30 ng/dL Normal 0.76-1.46 [facility] Comment on above: Performed By: #### L 504.2610, L506.0400, L501.9520, L501.2300, L501.5200, L100.0100, L500.4050 ####[facility] [id number] [place], [address] T4 freeOrdered By: Franco hernandez on 09-15-2024 Free T4 [Mass/Vol] 1.30 ng/dL 0.76-1.46 [facility] TSH DL <= 0.005 mIU/L QnOrde red By: Franco Pérez on 09-15-2024 TSH Qn 0.992 uIU/mL 0.300-4.20 0 [facility] Thyroid Stim Hormone (TSH)on 09-15-2024 TSH 0.992 uIU/mL Normal 0.300-4.20 0 [facility] Comment on above: Performed By: #### L [id number], L506.0400, [id number], L501.2300, L501.5200, L100.0100, L500.4050 ####[facility] [id number] [place], [place], [id number] Total proteinOrdered By: Faheem Pérez on 09-15-2024 Protein [Mass/Vol] 6.4 g/dL 5.9-8.4 [facility] White blood cell (WBC) count Ordered By: Franco Pérez on 09-15-2024 WBC (Bld) [#/Vol] 8.4 10*3/uL 4.4-11.0 [facility] Radiation Oncology Visiton 0 - Radiation Oncology Visit Normal [facility] Radiation Oncology Visiton 0 08-19-2024 Radiation Oncology Visit Normal [facility] Absolute lymphocyte countOrd ered By: Franco Pérez on 08-18-2024 Lymphocytes Auto (Unsp spec) [#/Vol] 0.11 10*3/uL Low 0.83-4.51 [facility] Absolute neutrophil countOrd ered By: Franco Pérez on 08-18-2024 Neutrophils (Bld) [#/Vol] 1.7 10*3/uL Low 2.0-7.7 [facility] Anion gap in Serum or Plasma Ordered By: Franco Pérez on 08-18-2024 Anion gap [Moles/Vol] 12 mmol/L 5-15 [facility] Automated lymphocyte count a s percentage of total leukocytesOrdered By: Franco Pérez on 08-18-2024 Lymphocytes/100 WBC Auto (Unsp spec) 4.8 % Low 19-41 [facility] BUN/creatinine ratioOrdered By: Franco Pérez on 08-18-2024 Urea nitrogen/Creatinine [Mass ratio] 20.9 mg/mg High 10-20 [facility] Basophil percentageOrdered B y: Franco Pérez on 08-18-2024 Basophils/100 WBC (Bld) 0.4 % 0-1 [facility] Bilirubin, totalOrdered By: Franco Pérez on 08-18-2024 Bilirubin [Mass/Vol] 1.38 mg/dL High 0.00-1.30 [facility] Blood polychromasia detectio n by light microscopyOrdered By: Franco Pérez on 08-18-2024 Polychromasia LM Ql (Bld) 1+ [facility] CBC W/Diff, Automatedon 07-24 PLT EST SLT DEC Normal ADEQ [facility] Comment on above: Performed By: #### L 500.4050, L100.0100, L501.5200, L501.2300 ####[facility] [address] [place], [address] POLYCHROMASIA 1+ Normal [facility] Comment on above: Performed By: #### L 500.4050, L100.0100, L501.5200, L501.2300 ####[facility] [address] [place], [address] RED CELL MORPH NORM C+C Normal NORM C C [facility] Comment on above: Performed By: #### L 500.4050, L100.0100, L501.5200, L501.2300 ####[facility] [address] [place], [address] Carbon dioxide, total [Moles /volume] in Central venous bloodOrdered By: Franco Pérez on 08-18-2024 CO2 [Moles/Vol] 24.3 mmol/L 21.0-32.0 [facility] Chloride assayOrdered By: Kala Pérez on 08-18-2024 Chloride [Moles/Vol] 102 mmol/L 98-108 [facility] Comprehensive Metabolic Prof ilon 08-18-2024 Albumin [Mass/Vol] 3.7 g/dL Normal 3.4-4.8 [facility] Comment on above: Performed By: #### L 500.4050, L100.0100, L501.5200, L501.2300 ####[facility] [address] [place], [address] Albumin/Globulin [Mass ratio] 1.2 {ratio} Normal 0.9-2.4 [facility] Comment on above: Performed By: #### L 500.4050, L100.0100, L501.5200, L501.2300 ####[facility] [address] [place], [address] ALK PHOS 104 U/L Normal 40-129 [facility] Comment on above: Performed By: #### L 500.4050, L100.0100, L501.5200, L501.2300 ####[facility] [address] [place], [address] ALT [Catalytic activity/Vol] 24 U/L Normal <=46 [facility] Comment on above: Performed By: #### L 500.4050, L100.0100, L501.5200, L501.2300 ####[facility] [address] [place], [address] AST [Catalytic activity/Vol] 20 U/L Normal <=37 [facility] Comment on above: Performed By: #### L 500.4050, L100.0100, L501.5200, L501.2300 ####[facility] [address] [place], [address] Bilirubin [Mass/Vol] 1.38 mg/dL High 0.00-1.30 [facility] Comment on above: Performed By: #### L 500.4050, L100.0100, L501.5200, L501.2300 ####[facility] [address] [place], [address] BUN/CRE 20.9 RATIO High 10-20 [facility] Comment on above: Performed By: #### L 500.4050, L100.0100, L501.5200, L501.2300 ####[facility] [address] [place], [address] Calcium [Mass/Vol] 9.4 mg/dL Normal 7.6-11.0 [facility] Comment on above: Performed By: #### L 500.4050, L100.0100, L501.5200, L501.2300 ####[facility] [address] [place], [address] Chloride [Moles/Vol] 102 mmol/L Normal 98-108 [facility] Comment on above: Performed By: #### L 500.4050, L100.0100, L501.5200, L501.2300 ####[facility] [address] [place], [address] CO2 [Moles/Vol] 24.3 mmol/L Normal 21.0-32.0 [facility] Comment on above: Performed By: #### L 500.4050, L100.0100, L501.5200, L501.2300 ####[facility] [address] [place], [address] Creatinine [Mass/Vol] 0.93 mg/dL Normal 0.70-1.20 [facility] Comment on above: Performed By: #### L 500.4050, L100.0100, L501.5200, L501.2300 ####[facility] [address] [place], [address] ECRCL 100.62 ml/min Normal 50-250 [facility] Comment on above: Performed By: #### L 500.4050, L100.0100, L501.5200, L501.2300 ####[facility] [address] [place], [address] GAP 12 Normal 5-15 [facility] Comment on above: Performed By: #### L 500.4050, L100.0100, L501.5200, L501.2300 ####[facility] [address] [place], [address] GFR/1.73 sq M.predicted among non-blacks MDRD (S/P/Bld) [Vol rate/Area] 87 mL/min/{1.73_m2} Normal >60 [facility] Comment on above: Result Comment: mL/m in/1.73m2 CKD-EPI Creatinine Equation (2020) Performed By: #### L 500.4050, L100.0100, L501.5200, L501.2300 ####[facility] [address] [place], [address] Globulin (S) [Mass/Vol] 3.0 g/dL Normal 2.2-4.2 [facility] Comment on above: Performed By: #### L 500.4050, L100.0100, L501.5200, L501.2300 ####[facility] [address] [place], [address] Glucose [Mass/Vol] 195 mg/dL High 70-99 [facility] Comment on above: Performed By: #### L 500.4050, L100.0100, L501.5200, L501.2300 ####[facility] [address] [place], [address] Potassium [Moles/Vol] 4.5 mmol/L Normal 3.3-5.1 [facility] Comment on above: Performed By: #### L 500.4050, L100.0100, L501.5200, L501.2300 ####[facility] [address] [place], [address] Sodium [Moles/Vol] 138 mmol/L Normal 133-145 [facility] Comment on above: Performed By: #### L 500.4050, L100.0100, L501.5200, L501.2300 ####[facility] [address] [place], [address] T PROT 6.7 g/dL Normal 5.9-8.4 [facility] Comment on above: Performed By: #### L 500.4050, L100.0100, L501.5200, L501.2300 ####[facility] [address] [place], [address] Urea nitrogen [Mass/Vol] 20 mg/dL High 4-19 [facility] Comment on above: Performed By: #### L 500.4050, L100.0100, L501.5200, L501.2300 ####[facility] [address] [place], [address] Eosinophil percentageOrdered By: Franco Pérez on 08-18-2024 Eosinophils/100 WBC (Bld) 0.4 % 0-5 [facility] Erythrocyte distribution wid th ratioOrdered By: Franco Pérez on 08-18-2024 Erythrocyte distribution width (RBC) [Ratio] 15.9 % High 11.6-14.6 [facility] Erythrocyte distribution wid th standard deviationOrdered By: Franco Pérez on 08-18-2024 Erythrocyte distribution width (RBC) [Ratio] 49.9 fl High 35.1-43.9 [facility] Erythrocyte morphology asses smentOrdered By: Franco Pérez on 08-18-2024 RBC morphology finding Nom (Bld) NORM C+C NORMAL NORM C&C [facility] Glomerular filtration rate ( GFR) estimation/1.73 sq m using serum, plasma, or whole bOrdered By: Franco Pérez on 08-18-2024 GFR/1.73 sq M.predicted among non-blacks MDRD (S/P/Bld) [Vol rate/Area] 87 mL/min/{1.73_m2} >60 [facility] Comment on above: mL/min/1.73m2 CKD-EP I Creatinine Equation (2020) Hematocrit Auto (Bld) [Volum e fraction]Ordered By: Franco Pérez on 08-18-2024 Hematocrit (Bld) [Volume fraction] 36.2 % Low 40-54 [facility] Hemoglobin measurementOrdere d By: Franco Pérez on 08-18-2024 Hemoglobin (Bld) [Mass/Vol] 12.0 g/dL Low 13.0-16.5 [facility] Immature granulocytes/100 WB C Auto (Bld)Ordered By: Franco Pérez on 08-18-2024 Immature granulocytes/100 WBC (Bld) 1.300 % High 0.0-0.9 [facility] Comment on above: IG% - Immature Granu locytes (promyelocytes, myelocytes and metamyelocytes) > 1% indicates that a LEFT SHIFT is Present. Laboratory - Chemistry and C hemistry - challengeOrdered By: Franco Pérez on 08-18-2024 AST [Catalytic activity/Vol] 20 U/L <38 [facility] MCV (mean corpuscular volume ) determinationOrdered By: Franco Beto on 08-18-2024 MCV (RBC) [Entitic vol] 92.1 fL 80-94 [facility] Magnesiumon 08-18-2024 Magnesium [Mass/Vol] 2.0 mg/dL Normal 1.5-2.2 [facility] Comment on above: Performed By: #### L 500.4050, L100.0100, L501.5200, L501.2300 ####[facility] [address] [place], [address] Magnesium measurement (mass/ volume)Ordered By: Franco [facility] on 08-18-2024 Magnesium (Unsp spec) [Mass/Vol] 2.0 mg/dL 1.5-2.2 [facility] Mean corpuscular hemoglobin (MCH) determinationOrdered By: Franco Pérez on 08-18-2024 MCH (RBC) [Entitic mass] 30.5 pg 27.0-32.0 [facility] Mean corpuscular hemoglobin concentration (MCHC) determinationOrdered By: Franco Pérez on 08-18-2024 MCHC (RBC) [Mass/Vol] 33.1 g/dL 32-36 [facility] Mean platelet volume determi nationOrdered By: Franco Pérez on 08-18-2024 Platelet mean volume (Bld) [Entitic vol] 10.0 fL 6.2-12.0 [facility] Monocyte percentageOrdered B y: Franco Pérez on 08-18-2024 Monocytes/100 WBC (Bld) 17.5 % High 0-10 [facility] Neutrophil percentageOrdered By: Franco Pérez on 08-18-2024 Neutrophils/100 WBC (Bld) 75.6 % High 47-70 [facility] Nucleated red blood cell per centageOrdered By: Frnaco Pérez on 08-18-2024 Nucleated RBC/100 WBC (Bld) [Ratio] 0 % 0-5 [facility] Oncology Visit Reporton 07-24 Oncology Visit Report Normal [facility] Phosphoruson 08-18-2024 Phosphate [Mass/Vol] 2.9 mg/dL Normal 2.7-4.5 [facility] Comment on above: Performed By: #### L 500.4050, L100.0100, L501.5200, L501.2300 ####[facility] [address] [place], [place], [id number] Platelet countOrdered By: Kala Pérez on 08-18-2024 Platelets (Bld) [#/Vol] 108 10*3/uL Low 150-450 [facility] Platelet estimateOrdered By: Franco Pérez on 08-18-2024 Platelets LM Ql (Bld) SLT DEC ADEQ [facility] Potassium measurement (mass/ volume)Ordered By: Franco Pérez on 08-18-2024 Potassium (Unsp spec) [Mass/Vol] 4.5 mmol/L 3.3-5.1 [facility] RBC Auto (Bld) [#/Vol]Ordere d By: Franco Pérez on 08-18-2024 RBC (Bld) [#/Vol] 3.93 10*6/uL Low 4.6-6.2 [facility] Serum creatinine measurement (mass/volume)Ordered By: Franco Pérez on 08-18-2024 Creatinine [Mass/Vol] 0.93 mg/dL 0.70-1.20 [facility] Serum globulin measurementOr dered By: Franco Pérez on 08-18-2024 Globulin (S) [Mass/Vol] 3.0 g/dL 2.2-4.2 [facility] Serum glucose measurement (m ass/volume)Ordered By: Franco Pérez on 08-18-2024 Glucose [Mass/Vol] 195 mg/dL High 70-99 [facility] Serum or plasma alanine cabral otransferase (ALT) measurementOrdered By: Franco Pérez on 08-18-2024 ALT [Catalytic activity/Vol] 24 U/L <47 [facility] Serum or plasma albumin blaine urement (mass/volume)Ordered By: Franco Pérez on 08-18-2024 Albumin [Mass/Vol] 3.7 g/dL 3.4-4.8 [facility] Serum or plasma albumin/glob ulin mass ratioOrdered By: Franco Pérez on 08-18-2024 Albumin/Globulin [Mass ratio] 1.2 {ratio} 0.9-2.4 [facility] Serum or plasma alkaline zee sphatase measurementOrdered By: Franco Pérez on 08-18-2024 ALP [Catalytic activity/Vol] 104 U/L 40-129 [facility] Serum or plasma calcium blaine urement (mass/volume)Ordered By: Franco Pérez on 08-18-2024 Calcium [Mass/Vol] 9.4 mg/dL 7.6-11.0 [facility] Serum or plasma urea nitroge n measurement (mass/volume)Ordered By: Franco Pérez on 08-18-2024 Urea nitrogen [Mass/Vol] 20 mg/dL High 4-19 [facility] Sodium levelOrdered By: Jonathon Pérez on 08-18-2024 Sodium [Moles/Vol] 138 mmol/L 133-145 [facility] Telephone Encounteron 2024 Exercise Physiologist Certified Authentication Interface Message Text Reached patient, who [...] acknowledges understanding. Cindy Newell RN Normal [facility] Total proteinOrdered By: Faheem Pérez on 08-18-2024 Protein [Mass/Vol] 6.7 g/dL 5.9-8.4 [facility] White blood cell (WBC) count Ordered By: Franco Pérez on 08-18-2024 WBC (Bld) [#/Vol] 2.3 10*3/uL Low 4.4-11.0 [facility] Radiation Oncology Visiton 0 08-12-2024 Radiation Oncology Visit Normal [facility] Absolute lymphocyte countOrd ered By: Franco Pérez on 08-10-2024 Lymphocytes Auto (Unsp spec) [#/Vol] 0.19 10*3/uL Low 0.83-4.51 [facility] Absolute neutrophil countOrd ered By: Franco Pérez on 08-10-2024 Neutrophils (Bld) [#/Vol] 2.9 10*3/uL 2.0-7.7 [facility] Anion gap in Serum or Plasma Ordered By: Franco Pérez on 08-10-2024 Anion gap [Moles/Vol] 12 mmol/L 5-15 [facility] Automated lymphocyte count a s percentage of total leukocytesOrdered By: Franco Pérez on 08-10-2024 Lymphocytes/100 WBC Auto (Unsp spec) 5.1 % Low 19-41 [facility] BUN/creatinine ratioOrdered By: Franco Pérez on 08-10-2024 Urea nitrogen/Creatinine [Mass ratio] 23.1 mg/mg High 10-20 [facility] Basophil percentageOrdered B y: Franco Pérez on 08-10-2024 Basophils/100 WBC (Bld) 0.5 % 0-1 [facility] Bilirubin, totalOrdered By: Franco Pérez on 08-10-2024 Bilirubin [Mass/Vol] 1.24 mg/dL 0.00-1.30 [facility] CBC W/Diff, Automatedon 07-23 Absolute Lymph 0.19 X10 3/uL Low 0.83-4.51 [facility] Comment on above: Performed By: #### L 500.4050, L501.2300, L501.5200, L100.0100 ####[facility] [address] [place], [address] Absolute Neut 2.9 X10 3/uL Normal 2.0-7.7 [facility] Comment on above: Performed By: #### L 500.4050, L501.2300, L501.5200, L100.0100 ####[facility] [address] [place], [address] Basophils/100 WBC (Bld) 0.5 % Normal 0-1 [facility] Comment on above: Performed By: #### L 500.4050, L501.2300, L501.5200, L100.0100 ####[facility] [address] [place], [address] Eosinophils/100 WBC (Bld) 0.5 % Normal 0-5 [facility] Comment on above: Performed By: #### L 500.4050, L501.2300, L501.5200, L100.0100 ####[facility] [address] [place], [address] Erythrocyte distribution width (RBC) [Ratio] 15.3 % High 11.6-14.6 [facility] Comment on above: Performed By: #### L 500.4050, L501.2300, L501.5200, L100.0100 ####[facility] [address] [place], [address] Hematocrit (Bld) [Volume fraction] 38.0 % Low 40-54 [facility] Comment on above: Performed By: #### L 500.4050, L501.2300, L501.5200, L100.0100 ####[facility] [address] [place], [address] Hemoglobin (Bld) [Mass/Vol] 12.5 g/dL Low 13.0-16.5 [facility] Comment on above: Performed By: #### L 500.4050, L501.2300, L501.5200, L100.0100 ####[facility] [address] [place], [address] IG% 1.600 High 0.0-0.9 [facility] Comment on above: Result Comment: IG% - Immature Granulocytes (promyelocytes, myelocytes andmetamyelocytes) > 1% indicates that a LEFT SHIFT is Present. Performed By: #### L 500.4050, L501.2300, L501.5200, L100.0100 ####[facility] [address] [place], [address] Lymphocytes/100 WBC (Bld) 5.1 % Low 19-41 [facility] Comment on above: Performed By: #### L 500.4050, L501.2300, L501.5200, L100.0100 ####[facility] [address] [place], [address] MCH (RBC) [Entitic mass] 30.1 pg Normal 27.0-32.0 [facility] Comment on above: Performed By: #### L 500.4050, L501.2300, L501.5200, L100.0100 ####[facility] [address] [place], [address] MCHC (RBC) [Mass/Vol] 32.9 g/dL Normal 32-36 [facility] Comment on above: Performed By: #### L 500.4050, L501.2300, L501.5200, L100.0100 ####[facility] [address] [place], [address] MCV (RBC) [Entitic vol] 91.6 fL Normal 80-94 [facility] Comment on above: Performed By: #### L 500.4050, L501.2300, L501.5200, L100.0100 ####[facility] [address] [place], [address] Monocytes/100 WBC (Bld) 15.5 % High 0-10 [facility] Comment on above: Performed By: #### L 500.4050, L501.2300, L501.5200, L100.0100 ####[facility] [address] [place], [address] Neutrophils/100 WBC (Bld) 76.8 % High 47-70 [facility] Comment on above: Performed By: #### L 500.4050, L501.2300, L501.5200, L100.0100 ####[facility] [address] [place], [address] Nucleated RBC (Bld) [#/Vol] 0 10*3/uL Normal 0-5 [facility] Comment on above: Performed By: #### L 500.4050, L501.2300, L501.5200, L100.0100 ####[facility] [address] [place], [address] Platelet mean volume (Bld) [Entitic vol] 10.4 fL Normal 6.2-12.0 [facility] Comment on above: Performed By: #### L 500.4050, L501.2300, L501.5200, L100.0100 ####[facility] [address] [place], [address] Platelets (Bld) [#/Vol] 98 10*3/uL Low 150-450 [facility] Comment on above: Performed By: #### L 500.4050, L501.2300, L501.5200, L100.0100 ####[facility] [address] [place], [address] RBC (Bld) [#/Vol] 4.15 10*6/uL Low 4.6-6.2 [facility] Comment on above: Performed By: #### L 500.4050, L501.2300, L501.5200, L100.0100 ####[facility] [address] [place], [address] RDW SD 48.5 fl High 35.1-43.9 [facility] Comment on above: Performed By: #### L 500.4050, L501.2300, L501.5200, L100.0100 ####[facility] [address] [place], [address] WBC (Bld) [#/Vol] 3.7 10*3/uL Low 4.4-11.0 [facility] Comment on above: Performed By: #### L 500.4050, L501.2300, L501.5200, L100.0100 ####[facility] [address] [place], [address] Carbon dioxide, total [Moles /volume] in Central venous bloodOrdered By: Franco Pérez on 08-10-2024 CO2 [Moles/Vol] 27.3 mmol/L 21.0-32.0 [facility] Chloride assayOrdered By: Kala Pérez on 08-10-2024 Chloride [Moles/Vol] 100 mmol/L 98-108 [facility] Comprehensive Metabolic Prof ilon 08-10-2024 Albumin [Mass/Vol] 3.6 g/dL Normal 3.4-4.8 [facility] Comment on above: Performed By: #### L 500.4050, L501.2300, L501.5200, L100.0100 ####[facility] [address] [place], [address] Albumin/Globulin [Mass ratio] 1.2 {ratio} Normal 0.9-2.4 [facility] Comment on above: Performed By: #### L 500.4050, L501.2300, L501.5200, L100.0100 ####[facility] [address] [place], [address] ALK PHOS 103 U/L Normal 40-129 [facility] Comment on above: Performed By: #### L 500.4050, L501.2300, L501.5200, L100.0100 ####[facility] [address] [place], [address] ALT [Catalytic activity/Vol] 21 U/L Normal <=46 [facility] Comment on above: Performed By: #### L 500.4050, L501.2300, L501.5200, L100.0100 ####[facility] [address] [place], [address] AST [Catalytic activity/Vol] 22 U/L Normal <=37 [facility] Comment on above: Performed By: #### L 500.4050, L501.2300, L501.5200, L100.0100 ####[facility] [address] [place], [address] Bilirubin [Mass/Vol] 1.24 mg/dL Normal 0.00-1.30 [facility] Comment on above: Performed By: #### L 500.4050, L501.2300, L501.5200, L100.0100 ####[facility] [address] [place], [address] BUN/CRE 23.1 RATIO High 10-20 [facility] Comment on above: Performed By: #### L 500.4050, L501.2300, L501.5200, L100.0100 ####[facility] [address] [place], [address] Calcium [Mass/Vol] 9.6 mg/dL Normal 7.6-11.0 [facility] Comment on above: Performed By: #### L 500.4050, L501.2300, L501.5200, L100.0100 ####[facility] [address] [place], [address] Chloride [Moles/Vol] 100 mmol/L Normal 98-108 [facility] Comment on above: Performed By: #### L 500.4050, L501.2300, L501.5200, L100.0100 ####[facility] [address] [place], [address] CO2 [Moles/Vol] 27.3 mmol/L Normal 21.0-32.0 [facility] Comment on above: Performed By: #### L 500.4050, L501.2300, L501.5200, L100.0100 ####[facility] [address] [place], [address] Creatinine [Mass/Vol] 0.89 mg/dL Normal 0.70-1.20 [facility] Comment on above: Performed By: #### L 500.4050, L501.2300, L501.5200, L100.0100 ####[facility] [address] [place], [address] ECRCL 105.86 ml/min Normal 50-250 [facility] Comment on above: Performed By: #### L 500.4050, L501.2300, L501.5200, L100.0100 ####[facility] [address] [place], [address] GAP 12 Normal 5-15 [facility] Comment on above: Performed By: #### L 500.4050, L501.2300, L501.5200, L100.0100 ####[facility] [address] [place], [address] GFR/1.73 sq M.predicted among non-blacks MDRD (S/P/Bld) [Vol rate/Area] 91 mL/min/{1.73_m2} Normal >60 [facility] Comment on above: Result Comment: mL/m in/1.73m2 CKD-EPI Creatinine Equation (2020) Performed By: #### L 500.4050, L501.2300, L501.5200, L100.0100 ####[facility] [address] [place], [address] Globulin (S) [Mass/Vol] 3.1 g/dL Normal 2.2-4.2 [facility] Comment on above: Performed By: #### L 500.4050, L501.2300, L501.5200, L100.0100 ####[facility] [address] [place], [address] Glucose [Mass/Vol] 176 mg/dL High 70-99 [facility] Comment on above: Performed By: #### L 500.4050, L501.2300, L501.5200, L100.0100 ####[facility] [address] [place], [address] Potassium [Moles/Vol] 3.9 mmol/L Normal 3.3-5.1 [facility] Comment on above: Performed By: #### L 500.4050, L501.2300, L501.5200, L100.0100 ####[facility] [address] [place], [address] Sodium [Moles/Vol] 139 mmol/L Normal 133-145 [facility] Comment on above: Performed By: #### L 500.4050, L501.2300, L501.5200, L100.0100 ####[facility] [address] [place], [address] T PROT 6.7 g/dL Normal 5.9-8.4 [facility] Comment on above: Performed By: #### L 500.4050, L501.2300, L501.5200, L100.0100 ####[facility] [address] [place], [place], [id number] Urea nitrogen [Mass/Vol] 21 mg/dL High -19 [facility] Comment on above: Performed By: #### L 500.4050, L501.2300, L501.5200, L100.0100 ####[facility] [address] [place], [address] Eosinophil percentageOrdered By: Franco Pérez on 08-10-2024 Eosinophils/100 WBC (Bld) 0.5 % 0-5 [facility] Erythrocyte distribution wid th ratioOrdered By: Franco Beto on 08-10-2024 Erythrocyte distribution width (RBC) [Ratio] 15.3 % High 11.6-14.6 [facility] Erythrocyte distribution wid th standard deviationOrdered By: Franco Beto on 08-10-2024 Erythrocyte distribution width (RBC) [Ratio] 48.5 fl High 35.1-43.9 [facility] Glomerular filtration rate ( GFR) estimation/1.73 sq m using serum, plasma, or whole bOrdered By: Franco Pérez on 08-10-2024 GFR/1.73 sq M.predicted among non-blacks MDRD (S/P/Bld) [Vol rate/Area] 91 mL/min/{1.73_m2} >60 [facility] Comment on above: mL/min/1.73m2 CKD-EP I Creatinine Equation (2020) Hematocrit Auto (Bld) [Volum e fraction]Ordered By: Franco Pérez on 08-10-2024 Hematocrit (Bld) [Volume fraction] 38.0 % Low 40-54 [facility] Hemoglobin measurementOrdere d By: Franco Pérez on 08-10-2024 Hemoglobin (Bld) [Mass/Vol] 12.5 g/dL Low 13.0-16.5 [facility] Immature granulocytes/100 WB C Auto (Bld)Ordered By: Franco Pérez on 08-10-2024 Immature granulocytes/100 WBC (Bld) 1.600 % High 0.0-0.9 [facility] Comment on above: IG% - Immature Granu locytes (promyelocytes, myelocytes and metamyelocytes) > 1% indicates that a LEFT SHIFT is Present. Laboratory - Chemistry and C hemistry - challengeOrdered By: Franco Pérez on 08-10-2024 AST [Catalytic activity/Vol] 22 U/L <38 [facility] MCV (mean corpuscular volume ) determinationOrdered By: Franco Pérez on 08-10-2024 MCV (RBC) [Entitic vol] 91.6 fL 80-94 [facility] Magnesiumon 08-10-2024 Magnesium [Mass/Vol] 2.0 mg/dL Normal 1.5-2.2 [facility] Comment on above: Performed By: #### L 500.4050, L501.2300, L501.5200, L100.0100 ####[facility] [address] [place], [address] Magnesium measurement (mass/ volume)Ordered By: Franco Pérez on 08-10-2024 Magnesium (Unsp spec) [Mass/Vol] 2.0 mg/dL 1.5-2.2 [facility] Mean corpuscular hemoglobin (MCH) determinationOrdered By: Franco Pérez on 08-10-2024 MCH (RBC) [Entitic mass] 30.1 pg 27.0-32.0 [facility] Mean corpuscular hemoglobin concentration (MCHC) determinationOrdered By: Franco Pérez on 08-10-2024 MCHC (RBC) [Mass/Vol] 32.9 g/dL 32-36 [facility] Mean platelet volume determi nationOrdered By: Franco Pérez on 08-10-2024 Platelet mean volume (Bld) [Entitic vol] 10.4 fL 6.2-12.0 [facility] Monocyte percentageOrdered B y: Franco Pérez on 08-10-2024 Monocytes/100 WBC (Bld) 15.5 % High 0-10 [facility] Neutrophil percentageOrdered By: Franco Pérez on 08-10-2024 Neutrophils/100 WBC (Bld) 76.8 % High 47-70 [facility] Nucleated red blood cell per centageOrdered By: Franco Pérez on 08-10-2024 Nucleated RBC/100 WBC (Bld) [Ratio] 0 % 0-5 [facility] Oncology Visit Reporton 07-23 Oncology Visit Report Normal [facility] Phosphoruson 08-10-2024 Phosphate [Mass/Vol] 2.6 mg/dL Low 2.7-4.5 [facility] Comment on above: Performed By: #### L 500.4050, L501.2300, L501.5200, L100.0100 ####[facility] [address] [place], [address] Platelet countOrdered By: Kala Pérez on 08-10-2024 Platelets (Bld) [#/Vol] 98 10*3/uL Low 150-450 [facility] Potassium measurement (mass/ volume)Ordered By: Franco Pérez on 08-10-2024 Potassium (Unsp spec) [Mass/Vol] 3.9 mmol/L 3.3-5.1 [facility] RBC Auto (Bld) [#/Vol]Ordere d By: Franco Pérez on 08-10-2024 RBC (Bld) [#/Vol] 4.15 10*6/uL Low 4.6-6.2 [facility] Serum creatinine measurement (mass/volume)Ordered By: Franco Pérez on 08-10-2024 Creatinine [Mass/Vol] 0.89 mg/dL 0.70-1.20 [facility] Serum globulin measurementOr dered By: Franco Pérez on 08-10-2024 Globulin (S) [Mass/Vol] 3.1 g/dL 2.2-4.2 [facility] Serum glucose measurement (m ass/volume)Ordered By: Franco Pérez on 08-10-2024 Glucose [Mass/Vol] 176 mg/dL High 70-99 [facility] Serum or plasma alanine cabral otransferase (ALT) measurementOrdered By: Farnco Pérez on 08-10-2024 ALT [Catalytic activity/Vol] 21 U/L <47 [facility] Serum or plasma albumin blaine urement (mass/volume)Ordered By: Franco Pérez on 08-10-2024 Albumin [Mass/Vol] 3.6 g/dL 3.4-4.8 [facility] Serum or plasma albumin/glob ulin mass ratioOrdered By: Franco Pérez on 08-10-2024 Albumin/Globulin [Mass ratio] 1.2 {ratio} 0.9-2.4 [facility] Serum or plasma alkaline zee sphatase measurementOrdered By: Franco Pérez on 08-10-2024 ALP [Catalytic activity/Vol] 103 U/L 40-129 [facility] Serum or plasma calcium blaine urement (mass/volume)Ordered By: Franco Pérez on 08-10-2024 Calcium [Mass/Vol] 9.6 mg/dL 7.6-11.0 [facility] Serum or plasma urea nitroge n measurement (mass/volume)Ordered By: Franco Pérez on 08-10-2024 Urea nitrogen [Mass/Vol] 21 mg/dL High 4-19 [facility] Sodium levelOrdered By: Jonathon Pérez on 08-10-2024 Sodium [Moles/Vol] 139 mmol/L 133-145 [facility] Total proteinOrdered By: Faheem Pérez on 08-10-2024 Protein [Mass/Vol] 6.7 g/dL 5.9-8.4 [facility] White blood cell (WBC) count Ordered By: Franco Pérez on 08-10-2024 WBC (Bld) [#/Vol] 3.7 10*3/uL Low 4.4-11.0 [facility] Radiation Oncology Visiton 0 08-05-2024 Radiation Oncology Visit Normal [facility] Absolute lymphocyte countOrd ered By: Franco Pérez on 08-03-2024 Lymphocytes Auto (Unsp spec) [#/Vol] 0.23 10*3/uL Low 0.83-4.51 [facility] Absolute neutrophil countOrd ered By: Franco Pérez on 08-03-2024 Neutrophils (Bld) [#/Vol] 1.8 10*3/uL Low 2.0-7.7 [facility] Anion gap in Serum or Plasma Ordered By: Franco Pérez on 08-03-2024 Anion gap [Moles/Vol] 11 mmol/L 5-15 [facility] Automated lymphocyte count a s percentage of total leukocytesOrdered By: Franco Pérez on 08-03-2024 Lymphocytes/100 WBC Auto (Unsp spec) 9.4 % Low 19-41 [facility] BUN/creatinine ratioOrdered By: Franco Pérez on 08-03-2024 Urea nitrogen/Creatinine [Mass ratio] 26.5 mg/mg High 10-20 [facility] Basophil percentageOrdered B y: Franco Pérez on 08-03-2024 Basophils/100 WBC (Bld) 1.2 % High 0-1 [facility] Bilirubin, totalOrdered By: Franco Pérez on 08-03-2024 Bilirubin [Mass/Vol] 1.00 mg/dL 0.00-1.30 [facility] Blood manual differential co mment interpretation (narrative result)Ordered By: Franco Pérez on 08-03-2024 Manual differential comment Jovanny (Bld) [Interp] COMMENT [facility] Comment on above: LYMPHOPENIA. CBC W/Diff, Automatedon 07-23 PLT EST MOD DEC Normal ADEQ [facility] Comment on above: Performed By: #### L 100.0100, L501.2300, L500.4050, L501.5200 ####[facility] [address] [place], [address] SMEAR COMMENT COMMENT Normal [facility] Comment on above: Result Comment: LYMP HOPENIA. Performed By: #### L 100.0100, L501.2300, L500.4050, L501.5200 ####[facility] [address] [place], [address] Carbon dioxide, total [Moles /volume] in Central venous bloodOrdered By: Franco Pérez on 08-03-2024 CO2 [Moles/Vol] 25.3 mmol/L 21.0-32.0 [facility] Chloride assayOrdered By: Kala Pérez on 08-03-2024 Chloride [Moles/Vol] 103 mmol/L 98-108 [facility] Comprehensive Metabolic Prof ilon 08-03-2024 Albumin [Mass/Vol] 3.5 g/dL Normal 3.4-4.8 [facility] Comment on above: Performed By: #### L 100.0100, L501.2300, L500.4050, L501.5200 ####[facility] [address] [place], [address] Albumin/Globulin [Mass ratio] 1.2 {ratio} Normal 0.9-2.4 [facility] Comment on above: Performed By: #### L 100.0100, L501.2300, L500.4050, L501.5200 ####[facility] [address] [place], [address] ALK PHOS 93 U/L Normal 40-129 [facility] Comment on above: Performed By: #### L 100.0100, L501.2300, L500.4050, L501.5200 ####[facility] [address] [place], [address] ALT [Catalytic activity/Vol] 31 U/L Normal <=46 [facility] Comment on above: Performed By: #### L 100.0100, L501.2300, L500.4050, L501.5200 ####[facility] [address] [place], [address] AST [Catalytic activity/Vol] 22 U/L Normal <=37 [facility] Comment on above: Performed By: #### L 100.0100, L501.2300, L500.4050, L501.5200 ####[facility] [address] [place], [address] Bilirubin [Mass/Vol] 1.00 mg/dL Normal 0.00-1.30 [facility] Comment on above: Performed By: #### L 100.0100, L501.2300, L500.4050, L501.5200 ####[facility] [address] [place], [address] BUN/CRE 26.5 RATIO High 10-20 [facility] Comment on above: Performed By: #### L 100.0100, L501.2300, L500.4050, L501.5200 ####[facility] [address] [place], [address] Calcium [Mass/Vol] 9.1 mg/dL Normal 7.6-11.0 [facility] Comment on above: Performed By: #### L 100.0100, L501.2300, L500.4050, L501.5200 ####[facility] [address] [place], [address] Chloride [Moles/Vol] 103 mmol/L Normal 98-108 [facility] Comment on above: Performed By: #### L 100.0100, L501.2300, L500.4050, L501.5200 ####[facility] [address] [place], [address] CO2 [Moles/Vol] 25.3 mmol/L Normal 21.0-32.0 [facility] Comment on above: Performed By: #### L 100.0100, L501.2300, L500.4050, L501.5200 ####[facility] [address] [place], [address] Creatinine [Mass/Vol] 0.86 mg/dL Normal 0.70-1.20 [facility] Comment on above: Performed By: #### L 100.0100, L501.2300, L500.4050, L501.5200 ####[facility] [address] [place], [address] ECRCL 109.16 ml/min Normal 50-250 [facility] Comment on above: Performed By: #### L 100.0100, L501.2300, L500.4050, L501.5200 ####[facility] [address] [place], [address] GAP 11 Normal 5-15 [facility] Comment on above: Performed By: #### L 100.0100, L501.2300, L500.4050, L501.5200 ####[facility] [address] [place], [address] GFR/1.73 sq M.predicted among non-blacks MDRD (S/P/Bld) [Vol rate/Area] 92 mL/min/{1.73_m2} Normal >60 [facility] Comment on above: Result Comment: mL/m in/1.73m2 CKD-EPI Creatinine Equation (2020) Performed By: #### L 100.0100, L501.2300, L500.4050, L501.5200 ####[facility] [address] [place], [address] Globulin (S) [Mass/Vol] 3.0 g/dL Normal 2.2-4.2 [facility] Comment on above: Performed By: #### L 100.0100, L501.2300, L500.4050, L501.5200 ####[facility] [address] [place], [address] Glucose [Mass/Vol] 155 mg/dL High 70-99 [facility] Comment on above: Performed By: #### L 100.0100, L501.2300, L500.4050, L501.5200 ####[facility] [address] [place], [address] Potassium [Moles/Vol] 3.9 mmol/L Normal 3.3-5.1 [facility] Comment on above: Performed By: #### L 100.0100, L501.2300, L500.4050, L501.5200 ####[facility] [address] [place], [address] Sodium [Moles/Vol] 139 mmol/L Normal 133-145 [facility] Comment on above: Performed By: #### L 100.0100, L501.2300, L500.4050, L501.5200 ####[facility] [address] [place], [address] T PROT 6.5 g/dL Normal 5.9-8.4 [facility] Comment on above: Performed By: #### L 100.0100, L501.2300, L500.4050, L501.5200 ####[facility] [address] [place], [address] Urea nitrogen [Mass/Vol] 23 mg/dL High 4-19 [facility] Comment on above: Performed By: #### L 100.0100, L501.2300, L500.4050, L501.5200 ####[facility] [address] [place], [address] Eosinophil percentageOrdered By: Franco Pérez on 08-03-2024 Eosinophils/100 WBC (Bld) 0.4 % 0-5 [facility] Erythrocyte distribution wid th ratioOrdered By: Franco Pérez on 08-03-2024 Erythrocyte distribution width (RBC) [Ratio] 14.3 % 11.6-14.6 [facility] Erythrocyte distribution wid th standard deviationOrdered By: Franco Pérez on 08-03-2024 Erythrocyte distribution width (RBC) [Ratio] 44.7 fl High 35.1-43.9 [facility] Glomerular filtration rate ( GFR) estimation/1.73 sq m using serum, plasma, or whole bOrdered By: Franco Pérez on 08-03-2024 GFR/1.73 sq M.predicted among non-blacks MDRD (S/P/Bld) [Vol rate/Area] 92 mL/min/{1.73_m2} >60 [facility] Comment on above: mL/min/1.73m2 CKD-EP I Creatinine Equation (2020) Hematocrit Auto (Bld) [Volum e fraction]Ordered By: Franco Pérez on 08-03-2024 Hematocrit (Bld) [Volume fraction] 37.8 % Low 40-54 [facility] Hemoglobin measurementOrdere d By: Franco Pérez on 08-03-2024 Hemoglobin (Bld) [Mass/Vol] 12.5 g/dL Low 13.0-16.5 [facility] Immature granulocytes/100 WB C Auto (Bld)Ordered By: Franco Pérez on 08-03-2024 Immature granulocytes/100 WBC (Bld) 2.900 % High 0.0-0.9 [facility] Comment on above: IG% - Immature Granu locytes (promyelocytes, myelocytes and metamyelocytes) > 1% indicates that a LEFT SHIFT is Present. Laboratory - Chemistry and C hemistry - challengeOrdered By: Franco Anderson on 08-03-2024 AST [Catalytic activity/Vol] 22 U/L <38 [facility] MCV (mean corpuscular volume ) determinationOrdered By: Franco Pérez on 08-03-2024 MCV (RBC) [Entitic vol] 90.4 fL 80-94 [facility] Magnesiumon 08-03-2024 Magnesium [Mass/Vol] 1.8 mg/dL Normal 1.5-2.2 [facility] Comment on above: Performed By: #### L 100.0100, L501.2300, L500.4050, L501.5200 ####[facility] [address] [place], [place], [id number] Magnesium measurement (mass/ volume)Ordered By: Franco [facility] on 08-03-2024 Magnesium (Unsp spec) [Mass/Vol] 1.8 mg/dL 1.5-2.2 [facility] Mean corpuscular hemoglobin (MCH) determinationOrdered By: Franco Pérez on 08-03-2024 MCH (RBC) [Entitic mass] 29.9 pg 27.0-32.0 [facility] Mean corpuscular hemoglobin concentration (MCHC) determinationOrdered By: Franco [facility] on 08-03-2024 MCHC (RBC) [Mass/Vol] 33.1 g/dL 32-36 [facility] Mean platelet volume determi nationOrdered By: Franco Pérez on 08-03-2024 Platelet mean volume (Bld) [Entitic vol] 11.2 fL 6.2-12.0 [facility] Monocyte percentageOrdered B y: Franco Pérez on 08-03-2024 Monocytes/100 WBC (Bld) 13.5 % High 0-10 [facility] Neutrophil percentageOrdered By: Franco Pérez on 08-03-2024 Neutrophils/100 WBC (Bld) 72.6 % High 47-70 [facility] Nucleated red blood cell per centageOrdered By: Franco Pérez on 08-03-2024 Nucleated RBC/100 WBC (Bld) [Ratio] 0 % 0-5 [facility] Oncology Visit Reporton 07-23 Oncology Visit Report Normal [facility] Phosphoruson 08-03-2024 Phosphate [Mass/Vol] 2.6 mg/dL Low 2.7-4.5 [facility] Comment on above: Performed By: #### L 100.0100, L501.2300, L500.4050, L501.5200 ####[facility] [address] [place], [address] Platelet countOrdered By: Kala Pérez on 08-03-2024 Platelets (Bld) [#/Vol] 72 10*3/uL Low 150-450 [facility] Platelet estimateOrdered By: Franco Pérez on 08-03-2024 Platelets LM Ql (Bld) MOD DEC ADEQ [facility] Potassium measurement (mass/ volume)Ordered By: Franco Pérez on 08-03-2024 Potassium (Unsp spec) [Mass/Vol] 3.9 mmol/L 3.3-5.1 [facility] RBC Auto (Bld) [#/Vol]Ordere d By: Franco Pérez on 08-03-2024 RBC (Bld) [#/Vol] 4.18 10*6/uL Low 4.6-6.2 [facility] Serum creatinine measurement (mass/volume)Ordered By: Franco Pérez on 08-03-2024 Creatinine [Mass/Vol] 0.86 mg/dL 0.70-1.20 [facility] Serum globulin measurementOr dered By: Franco Pérez on 08-03-2024 Globulin (S) [Mass/Vol] 3.0 g/dL 2.2-4.2 [facility] Serum glucose measurement (m ass/volume)Ordered By: Franco Pérez on 08-03-2024 Glucose [Mass/Vol] 155 mg/dL High 70-99 [facility] Serum or plasma alanine cabral otransferase (ALT) measurementOrdered By: Franco Pérez on 08-03-2024 ALT [Catalytic activity/Vol] 31 U/L <47 [facility] Serum or plasma albumin blaine urement (mass/volume)Ordered By: Franco Pérez on 08-03-2024 Albumin [Mass/Vol] 3.5 g/dL 3.4-4.8 [facility] Serum or plasma albumin/glob ulin mass ratioOrdered By: Franco Pérez on 08-03-2024 Albumin/Globulin [Mass ratio] 1.2 {ratio} 0.9-2.4 [facility] Serum or plasma alkaline zee sphatase measurementOrdered By: Franco Pérez on 08-03-2024 ALP [Catalytic activity/Vol] 93 U/L 40-129 [facility] Serum or plasma calcium blaine urement (mass/volume)Ordered By: Franco Pérez on 08-03-2024 Calcium [Mass/Vol] 9.1 mg/dL 7.6-11.0 [facility] Serum or plasma urea nitroge n measurement (mass/volume)Ordered By: Franco Pérez on 08-03-2024 Urea nitrogen [Mass/Vol] 23 mg/dL High 4-19 [facility] Sodium levelOrdered By: Jonathon Pérez on 08-03-2024 Sodium [Moles/Vol] 139 mmol/L 133-145 [facility] Total proteinOrdered By: Faheem Pérez on 08-03-2024 Protein [Mass/Vol] 6.5 g/dL 5.9-8.4 [facility] White blood cell (WBC) count Ordered By: Franco Pérez on 08-03-2024 WBC (Bld) [#/Vol] 2.5 10*3/uL Low 4.4-11.0 [facility] Radiation Oncology Visiton 0 - Radiation Oncology Visit Normal [facility] CBC W/Diff, Automatedon Absolute Lymph 0.21 X10 3/uL Low 0.83-4.51 [facility] Comment on above: Performed By: #### L 501.2300, L501.5200, L100.0100, L500.4050 ####[facility] [address] [place], [address] Absolute Neut 2.3 X10 3/uL Normal 2.0-7.7 [facility] Comment on above: Performed By: #### L 501.2300, L501.5200, L100.0100, L500.4050 ####[facility] [address] [place], [address] Basophils/100 WBC (Bld) 1.6 % High 0-1 [facility] Comment on above: Performed By: #### L 501.2300, L501.5200, L100.0100, L500.4050 ####[facility] [address] [place], [address] Eosinophils/100 WBC (Bld) 0.6 % Normal 0-5 [facility] Comment on above: Performed By: #### L 501.2300, L501.5200, L100.0100, L500.4050 ####[facility] [address] [place], [address] Erythrocyte distribution width (RBC) [Ratio] 13.9 % Normal 11.6-14.6 [facility] Comment on above: Performed By: #### L 501.2300, L501.5200, L100.0100, L500.4050 ####[facility] [address] [place], [address] Hematocrit (Bld) [Volume fraction] 39.3 % Low 40-54 [facility] Comment on above: Performed By: #### L 501.2300, L501.5200, L100.0100, L500.4050 ####[facility] [address] [place], [address] Hemoglobin (Bld) [Mass/Vol] 13.0 g/dL Normal 13.0-16.5 [facility] Comment on above: Performed By: #### L 501.2300, L501.5200, L100.0100, L500.4050 ####[facility] [address] [place], [address] IG% 1.900 High 0.0-0.9 [facility] Comment on above: Result Comment: IG% - Immature Granulocytes (promyelocytes, myelocytes andmetamyelocytes) > 1% indicates that a LEFT SHIFT is Present. Performed By: #### L 501.2300, L501.5200, L100.0100, L500.4050 ####[facility] [address] [place], [address] Lymphocytes/100 WBC (Bld) 6.6 % Low 19-41 [facility] Comment on above: Performed By: #### L 501.2300, L501.5200, L100.0100, L500.4050 ####[facility] [address] [place], [address] MCH (RBC) [Entitic mass] 29.5 pg Normal 27.0-32.0 [facility] Comment on above: Performed By: #### L 501.2300, L501.5200, L100.0100, L500.4050 ####[facility] [address] [place], [address] MCHC (RBC) [Mass/Vol] 33.1 g/dL Normal 32-36 [facility] Comment on above: Performed By: #### L 501.2300, L501.5200, L100.0100, L500.4050 ####[facility] [address] [place], [address] MCV (RBC) [Entitic vol] 89.3 fL Normal 80-94 [facility] Comment on above: Performed By: #### L 501.2300, L501.5200, L100.0100, L500.4050 ####[facility] [address] [place], [address] Monocytes/100 WBC (Bld) 18.8 % High 0-10 [facility] Comment on above: Performed By: #### L 501.2300, L501.5200, L100.0100, L500.4050 ####[facility] [address] [place], [address] Neutrophils/100 WBC (Bld) 70.5 % High 47-70 [facility] Comment on above: Performed By: #### L 501.2300, L501.5200, L100.0100, L500.4050 ####[facility] [address] [place], [address] Nucleated RBC (Bld) [#/Vol] 0 10*3/uL Normal 0-5 [facility] Comment on above: Performed By: #### L 501.2300, L501.5200, L100.0100, L500.4050 ####[facility] [address] [place], [address] Platelet mean volume (Bld) [Entitic vol] 10.2 fL Normal 6.2-12.0 [facility] Comment on above: Performed By: #### L 501.2300, L501.5200, L100.0100, L500.4050 ####[facility] [address] [place], [address] Platelets (Bld) [#/Vol] 103 10*3/uL Low 150-450 [facility] Comment on above: Performed By: #### L 501.2300, L501.5200, L100.0100, L500.4050 ####[facility] [address] [place], [address] RBC (Bld) [#/Vol] 4.40 10*6/uL Low 4.6-6.2 [facility] Comment on above: Performed By: #### L 501.2300, L501.5200, L100.0100, L500.4050 ####[facility] [address] [place], [address] RDW SD 44.1 fl High 35.1-43.9 [facility] Comment on above: Performed By: #### L 501.2300, L501.5200, L100.0100, L500.4050 ####[facility] [address] [place], [address] WBC (Bld) [#/Vol] 3.2 10*3/uL Low 4.4-11.0 [facility] Comment on above: Performed By: #### L 501.2300, L501.5200, L100.0100, L500.4050 ####[facility] [address] [place], [address] Comprehensive Metabolic Prof [facility] 07-27-2024 Albumin [Mass/Vol] 3.6 g/dL Normal 3.4-4.8 [facility] Comment on above: Performed By: #### L 501.2300, L501.5200, L100.0100, L500.4050 ####[facility] [address] [place], [address] Albumin/Globulin [Mass ratio] 1.1 {ratio} Normal 0.9-2.4 [facility] Comment on above: Performed By: #### L 501.2300, L501.5200, L100.0100, L500.4050 ####[facility] [address] [place], [address] ALK PHOS 88 U/L Normal 40-129 [facility] Comment on above: Performed By: #### L 501.2300, L501.5200, L100.0100, L500.4050 ####[facility] [address] [place], [address] ALT [Catalytic activity/Vol] 25 U/L Normal <=46 [facility] Comment on above: Performed By: #### L 501.2300, L501.5200, L100.0100, L500.4050 ####[facility] [address] [place], [address] AST [Catalytic activity/Vol] 18 U/L Normal <=37 [facility] Comment on above: Performed By: #### L 501.2300, L501.5200, L100.0100, L500.4050 ####[facility] [address] [place], [address] Bilirubin [Mass/Vol] 1.62 mg/dL High 0.00-1.30 [facility] Comment on above: Performed By: #### L 501.2300, L501.5200, L100.0100, L500.4050 ####[facility] [address] [place], [address] BUN/CRE 26.0 RATIO High 10-20 [facility] Comment on above: Performed By: #### L 501.2300, L501.5200, L100.0100, L500.4050 ####[facility] [address] [place], [address] Calcium [Mass/Vol] 9.5 mg/dL Normal 7.6-11.0 [facility] Comment on above: Performed By: #### L 501.2300, L501.5200, L100.0100, L500.4050 ####[facility] [address] [place], [address] Chloride [Moles/Vol] 102 mmol/L Normal 98-108 [facility] Comment on above: Performed By: #### L 501.2300, L501.5200, L100.0100, L500.4050 ####[facility] [address] [place], [address] CO2 [Moles/Vol] 23.3 mmol/L Normal 21.0-32.0 [facility] Comment on above: Performed By: #### L 501.2300, L501.5200, L100.0100, L500.4050 ####[facility] [address] [place], [address] Creatinine [Mass/Vol] 0.92 mg/dL Normal 0.70-1.20 [facility] Comment on above: Performed By: #### L 501.2300, L501.5200, L100.0100, L500.4050 ####[facility] [address] [place], [address] ECRCL 102.97 ml/min Normal 50-250 [facility] Comment on above: Performed By: #### L 501.2300, L501.5200, L100.0100, L500.4050 ####[facility] [address] [place], [address] GAP 15 Normal 5-15 [facility] Comment on above: Performed By: #### L 501.2300, L501.5200, L100.0100, L500.4050 ####[facility] [address] [place], [address] GFR/1.73 sq M.predicted among non-blacks MDRD (S/P/Bld) [Vol rate/Area] 89 mL/min/{1.73_m2} Normal >60 [facility] Comment on above: Result Comment: mL/m in/1.73m2 CKD-EPI Creatinine Equation (2020) Performed By: #### L 501.2300, L501.5200, L100.0100, L500.4050 ####[facility] [address] [place], [address] Globulin (S) [Mass/Vol] 3.3 g/dL Normal 2.2-4.2 [facility] Comment on above: Performed By: #### L 501.2300, L501.5200, L100.0100, L500.4050 ####[facility] [address] [place], [address] Glucose [Mass/Vol] 166 mg/dL High 70-99 [facility] Comment on above: Performed By: #### L 501.2300, L501.5200, L100.0100, L500.4050 ####[facility] [address] [place], [address] Potassium [Moles/Vol] 3.9 mmol/L Normal 3.3-5.1 [facility] Comment on above: Performed By: #### L 501.2300, L501.5200, L100.0100, L500.4050 ####[facility] [address] [place], [address] Sodium [Moles/Vol] 140 mmol/L Normal 133-145 [facility] Comment on above: Performed By: #### L 501.2300, L501.5200, L100.0100, L500.4050 ####[facility] [address] [place], [address] T PROT 6.9 g/dL Normal 5.9-8.4 [facility] Comment on above: Performed By: #### L 501.2300, L501.5200, L100.0100, L500.4050 ####[facility] [address] [place], [address] Urea nitrogen [Mass/Vol] 24 mg/dL High 4-19 [facility] Comment on above: Performed By: #### L 501.2300, L501.5200, L100.0100, L500.4050 ####[facility] [address] [place], [address] Magnesiumon 07-27-2024 Magnesium [Mass/Vol] 1.8 mg/dL Normal 1.5-2.2 [facility] Comment on above: Performed By: #### L 501.2300, L501.5200, L100.0100, L500.4050 ####[facility] [address] [place], [address] Oncology Visit Reporton Oncology Visit Report Normal [facility] Phosphoruson 07-27-2024 Phosphate [Mass/Vol] 3.2 mg/dL Normal 2.7-4.5 [facility] Comment on above: Performed By: #### L 501.2300, L501.5200, L100.0100, L500.4050 ####[facility] [address] [place], [address] Radiation Oncology Visiton 0 07-22-2024 Radiation Oncology Visit Normal [facility] Surgery Visit Reporton 07-22 Surgery Visit Report Normal [facility] CBC W/Diff, Automatedon 06-24 Absolute Lymph 0.45 X10 3/uL Low 0.83-4.51 [facility] Comment on above: Performed By: #### L 501.2300, L100.0100, L501.5200, L500.4050 ####[facility] [address] [place], [address] Absolute Neut 4.1 X10 3/uL Normal 2.0-7.7 [facility] Comment on above: Performed By: #### L 501.2300, L100.0100, L501.5200, L500.4050 ####[facility] [address] [place], [address] Basophils/100 WBC (Bld) 1.1 % High 0-1 [facility] Comment on above: Performed By: #### L 501.2300, L100.0100, L501.5200, L500.4050 ####[facility] [address] [place], [address] Eosinophils/100 WBC (Bld) 2.8 % Normal 0-5 [facility] Comment on above: Performed By: #### L 501.2300, L100.0100, L501.5200, L500.4050 ####[facility] [address] [place], [address] Erythrocyte distribution width (RBC) [Ratio] 13.6 % Normal 11.6-14.6 [facility] Comment on above: Performed By: #### L 501.2300, L100.0100, L501.5200, L500.4050 ####[facility] [address] [place], [address] Hematocrit (Bld) [Volume fraction] 41.3 % Normal 40-54 [facility] Comment on above: Performed By: #### L 501.2300, L100.0100, L501.5200, L500.4050 ####[facility] [address] [place], [address] Hemoglobin (Bld) [Mass/Vol] 13.6 g/dL Normal 13.0-16.5 [facility] Comment on above: Performed By: #### L 501.2300, L100.0100, L501.5200, L500.4050 ####[facility] [address] [place], [address] IG% 1.700 High 0.0-0.9 [facility] Comment on above: Result Comment: IG% - Immature Granulocytes (promyelocytes, myelocytes andmetamyelocytes) > 1% indicates that a LEFT SHIFT is Present. Performed By: #### L 501.2300, L100.0100, L501.5200, L500.4050 ####[facility] [address] [place], [address] Lymphocytes/100 WBC (Bld) 8.3 % Low 19-41 [facility] Comment on above: Performed By: #### L 501.2300, L100.0100, L501.5200, L500.4050 ####[facility] [address] [place], [address] MCH (RBC) [Entitic mass] 29.6 pg Normal 27.0-32.0 [facility] Comment on above: Performed By: #### L 501.2300, L100.0100, L501.5200, L500.4050 ####[facility] [address] [place], [address] MCHC (RBC) [Mass/Vol] 32.9 g/dL Normal 32-36 [facility] Comment on above: Performed By: #### L 501.2300, L100.0100, L501.5200, L500.4050 ####[facility] [address] [place], [address] MCV (RBC) [Entitic vol] 90.0 fL Normal 80-94 [facility] Comment on above: Performed By: #### L 501.2300, L100.0100, L501.5200, L500.4050 ####[facility] [address] [place], [address] Monocytes/100 WBC (Bld) 10.1 % High 0-10 [facility] Comment on above: Performed By: #### L 501.2300, L100.0100, L501.5200, L500.4050 ####[facility] [address] [place], [address] Neutrophils/100 WBC (Bld) 76.0 % High 47-70 [facility] Comment on above: Performed By: #### L 501.2300, L100.0100, L501.5200, L500.4050 ####[facility] [address] [place], [address] Nucleated RBC (Bld) [#/Vol] 0 10*3/uL Normal 0-5 [facility] Comment on above: Performed By: #### L 501.2300, L100.0100, L501.5200, L500.4050 ####[facility] [address] [place], [address] Platelet mean volume (Bld) [Entitic vol] 10.7 fL Normal 6.2-12.0 [facility] Comment on above: Performed By: #### L 501.2300, L100.0100, L501.5200, L500.4050 ####[facility] [address] [place], [address] Platelets (Bld) [#/Vol] 164 10*3/uL Normal 150-450 [facility] Comment on above: Performed By: #### L 501.2300, L100.0100, L501.5200, L500.4050 ####[facility] [address] [place], [address] RBC (Bld) [#/Vol] 4.59 10*6/uL Low 4.6-6.2 [facility] Comment on above: Performed By: #### L 501.2300, L100.0100, L501.5200, L500.4050 ####[facility] [address] [place], [address] RDW SD 43.8 fl Normal 35.1-43.9 [facility] Comment on above: Performed By: #### L 501.2300, L100.0100, L501.5200, L500.4050 ####[facility] [address] [place], [address] WBC (Bld) [#/Vol] 5.4 10*3/uL Normal 4.4-11.0 [facility] Comment on above: Performed By: #### L 501.2300, L100.0100, L501.5200, L500.4050 ####[facility] [address] [place], [address] Comprehensive Metabolic Prof ilon 07-20-2024 Albumin [Mass/Vol] 3.8 g/dL Normal 3.4-4.8 [facility] Comment on above: Performed By: #### L 501.2300, L100.0100, L501.5200, L500.4050 ####[facility] [address] [place], [address] Albumin/Globulin [Mass ratio] 1.1 {ratio} Normal 0.9-2.4 [facility] Comment on above: Performed By: #### L 501.2300, L100.0100, L501.5200, L500.4050 ####[facility] [address] [place], [address] ALK PHOS 93 U/L Normal 40-129 [facility] Comment on above: Performed By: #### L 501.2300, L100.0100, L501.5200, L500.4050 ####[facility] [address] [place], [address] ALT [Catalytic activity/Vol] 34 U/L Normal <=46 [facility] Comment on above: Performed By: #### L 501.2300, L100.0100, L501.5200, L500.4050 ####[facility] [address] [place], [address] AST [Catalytic activity/Vol] 25 U/L Normal <=37 [facility] Comment on above: Performed By: #### L 501.2300, L100.0100, L501.5200, L500.4050 ####[facility] [address] [place], [address] Bilirubin [Mass/Vol] 1.53 mg/dL High 0.00-1.30 [facility] Comment on above: Performed By: #### L 501.2300, L100.0100, L501.5200, L500.4050 ####[facility] [address] [place], [address] BUN/CRE 18.1 RATIO Normal 10-20 [facility] Comment on above: Performed By: #### L 501.2300, L100.0100, L501.5200, L500.4050 ####[facility] [address] [place], [address] Calcium [Mass/Vol] 9.5 mg/dL Normal 7.6-11.0 [facility] Comment on above: Performed By: #### L 501.2300, L100.0100, L501.5200, L500.4050 ####[facility] [address] [place], [address] Chloride [Moles/Vol] 101 mmol/L Normal 98-108 [facility] Comment on above: Performed By: #### L 501.2300, L100.0100, L501.5200, L500.4050 ####[facility] [address] [place], [address] CO2 [Moles/Vol] 23.8 mmol/L Normal 21.0-32.0 [facility] Comment on above: Performed By: #### L 501.2300, L100.0100, L501.5200, L500.4050 ####[facility] [address] [place], [address] Creatinine [Mass/Vol] 0.99 mg/dL Normal 0.70-1.20 [facility] Comment on above: Performed By: #### L 501.2300, L100.0100, L501.5200, L500.4050 ####[facility] [address] [place], [address] ECRCL 98.19 ml/min Normal 50-250 [facility] Comment on above: Performed By: #### L 501.2300, L100.0100, L501.5200, L500.4050 ####[facility] [address] [place], [address] GAP 13 Normal 5-15 [facility] Comment on above: Performed By: #### L 501.2300, L100.0100, L501.5200, L500.4050 ####[facility] [address] [place], [address] GFR/1.73 sq M.predicted among non-blacks MDRD (S/P/Bld) [Vol rate/Area] 81 mL/min/{1.73_m2} Normal >60 [facility] Comment on above: Result Comment: mL/m in/1.73m2 CKD-EPI Creatinine Equation (2020) Performed By: #### L 501.2300, L100.0100, L501.5200, L500.4050 ####[facility] [address] [place], [address] Globulin (S) [Mass/Vol] 3.4 g/dL Normal 2.2-4.2 [facility] Comment on above: Performed By: #### L 501.2300, L100.0100, L501.5200, L500.4050 ####[facility] [address] [place], [address] Glucose [Mass/Vol] 166 mg/dL High 70-99 [facility] Comment on above: Performed By: #### L 501.2300, L100.0100, L501.5200, L500.4050 ####[facility] [address] [place], [address] Potassium [Moles/Vol] 4.1 mmol/L Normal 3.3-5.1 [facility] Comment on above: Performed By: #### L 501.2300, L100.0100, L501.5200, L500.4050 ####[facility] [address] [place], [address] Sodium [Moles/Vol] 137 mmol/L Normal 133-145 [facility] Comment on above: Performed By: #### L 501.2300, L100.0100, L501.5200, L500.4050 ####[facility] [address] [place], [address] T PROT 7.2 g/dL Normal 5.9-8.4 [facility] Comment on above: Performed By: #### L 501.2300, L100.0100, L501.5200, L500.4050 ####[facility] [address] [place], [address] Urea nitrogen [Mass/Vol] 18 mg/dL Normal 4-19 [facility] Comment on above: Performed By: #### L 501.2300, L100.0100, L501.5200, L500.4050 ####[facility] [address] [place], [address] Magnesiumon 07-20-2024 Magnesium [Mass/Vol] 1.8 mg/dL Normal 1.5-2.2 [facility] Comment on above: Performed By: #### L 501.2300, L100.0100, L501.5200, L500.4050 ####[facility] [address] [place], [address] Oncology Visit Reporton 04-2 8-2025 Oncology Visit Report Normal [facility] Phosphoruson 07-20-2024 Phosphate [Mass/Vol] 2.7 mg/dL Normal 2.7-4.5 [facility] Comment on above: Performed By: #### L 501.2300, L100.0100, L501.5200, L500.4050 ####[facility] [address] [place], [address] TSH DL <= 0.005 mIU/L QnOrde red By: Bulmaro Curtis on 07-20-2024 TSH Qn 0.524 uIU/mL 0.300-4.20 0 [facility] Thyroid Stim Hormone (TSH)on 07-20-2024 TSH 0.524 uIU/mL Normal 0.300-4.20 0 [facility] Comment on above: Performed By: #### L 501.9520, L506.1001 ####[facility] [address] [place], [address] Vitamin D,25 Hydroxyon 07-20 Vitamin D 25-OH 27.2 ng/mL Low 30-100 [facility] Comment on above: Result Comment: Rhonda min D StatusDeficiency: <20 ng/mL (50nmol/L)Insufficiency: 20-30 ng/mL (50-75 nmol/L)Sufficiency: 30-100 ng/mL (75-250 nmol/L)Toxicity: >100 ng/mL (>250 nmol/L) Performed By: #### L 501.9520, L506.1001 ####[facility] [address] [place], [address] Radiation Oncology Visiton 0 07-15-2024 Radiation Oncology Visit Normal [facility] Modified Barium Swallow Stud yon 07-14-2024 Modified Barium Swallow Study Normal [facility] Absolute neutrophil countOrd ered By: Franco Pérez on 07-13-2024 Neutrophils (Bld) [#/Vol] 7.0 10*3/uL 2.0-7.7 [facility] Anion gap in Serum or Plasma Ordered By: Franco Pérez on 07-13-2024 Anion gap [Moles/Vol] 13 mmol/L 5-15 [facility] BUN/creatinine ratioOrdered By: Franco Pérez on 07-13-2024 Urea nitrogen/Creatinine [Mass ratio] 26.3 mg/mg High 10-20 [facility] Basophil percentageOrdered B y: Franco Pérez on 07-13-2024 Basophils/100 WBC (Bld) 0.6 % 0-1 [facility] Bilirubin, totalOrdered By: Franco Pérez on 07-13-2024 Bilirubin [Mass/Vol] 1.38 mg/dL High 0.00-1.30 [facility] CBC W/Diff, Automatedon 06-24 Absolute Lymph 0.88 X10 3/uL Normal 0.83-4.51 [facility] Comment on above: Performed By: #### L 501.5200, L500.4050, L100.0100, L501.2300 ####[facility] [address] [place], [address] Absolute Neut 7.0 X10 3/uL Normal 2.0-7.7 [facility] Comment on above: Performed By: #### L 501.5200, L500.4050, L100.0100, L501.2300 ####[facility] [address] [place], [address] Basophils/100 WBC (Bld) 0.6 % Normal 0-1 [facility] Comment on above: Performed By: #### L 501.5200, L500.4050, L100.0100, L501.2300 ####[facility] [address] [place], [address] Eosinophils/100 WBC (Bld) 2.0 % Normal 0-5 [facility] Comment on above: Performed By: #### L 501.5200, L500.4050, L100.0100, L501.2300 ####[facility] [address] [place], [address] Erythrocyte distribution width (RBC) [Ratio] 13.8 % Normal 11.6-14.6 [facility] Comment on above: Performed By: #### L 501.5200, L500.4050, L100.0100, L501.2300 ####[facility] [address] [place], [address] Hematocrit (Bld) [Volume fraction] 44.1 % Normal 40-54 [facility] Comment on above: Performed By: #### L 501.5200, L500.4050, L100.0100, L501.2300 ####[facility] [address] [place], [address] Hemoglobin (Bld) [Mass/Vol] 14.3 g/dL Normal 13.0-16.5 [facility] Comment on above: Performed By: #### L 501.5200, L500.4050, L100.0100, L501.2300 ####[facility] [address] [place], [address] IG% 1.200 High 0.0-0.9 [facility] Comment on above: Result Comment: IG% - Immature Granulocytes (promyelocytes, myelocytes andmetamyelocytes) > 1% indicates that a LEFT SHIFT is Present. Performed By: #### L 501.5200, L500.4050, L100.0100, L501.2300 ####[facility] [address] [place], [address] Lymphocytes/100 WBC (Bld) 10.0 % Low 19-41 [facility] Comment on above: Performed By: #### L 501.5200, L500.4050, L100.0100, L501.2300 ####[facility] [address] [place], [address] MCH (RBC) [Entitic mass] 29.7 pg Normal 27.0-32.0 [facility] Comment on above: Performed By: #### L 501.5200, L500.4050, L100.0100, L501.2300 ####[facility] [address] [place], [address] MCHC (RBC) [Mass/Vol] 32.4 g/dL Normal 32-36 [facility] Comment on above: Performed By: #### L 501.5200, L500.4050, L100.0100, L501.2300 ####[facility] [address] [place], [address] MCV (RBC) [Entitic vol] 91.5 fL Normal 80-94 [facility] Comment on above: Performed By: #### L 501.5200, L500.4050, L100.0100, L501.2300 ####[facility] [address] [place], [address] Monocytes/100 WBC (Bld) 7.0 % Normal 0-10 [facility] Comment on above: Performed By: #### L 501.5200, L500.4050, L100.0100, L501.2300 ####[facility] [address] [place], [address] Neutrophils/100 WBC (Bld) 79.2 % High 47-70 [facility] Comment on above: Performed By: #### L 501.5200, L500.4050, L100.0100, L501.2300 ####[facility] [address] [place], [address] Nucleated RBC (Bld) [#/Vol] 0 10*3/uL Normal 0-5 [facility] Comment on above: Performed By: #### L 501.5200, L500.4050, L100.0100, L501.2300 ####[facility] [address] [place], [address] Platelet mean volume (Bld) [Entitic vol] 11.7 fL Normal 6.2-12.0 [facility] Comment on above: Performed By: #### L 501.5200, L500.4050, L100.0100, L501.2300 ####[facility] [address] [place], [address] Platelets (Bld) [#/Vol] 178 10*3/uL Normal 150-450 [facility] Comment on above: Performed By: #### L 501.5200, L500.4050, L100.0100, L501.2300 ####[facility] [address] [place], [address] RBC (Bld) [#/Vol] 4.82 10*6/uL Normal 4.6-6.2 [facility] Comment on above: Performed By: #### L 501.5200, L500.4050, L100.0100, L501.2300 ####[facility] [address] [place], [address] RDW SD 46.4 fl High 35.1-43.9 [facility] Comment on above: Performed By: #### L 501.5200, L500.4050, L100.0100, L501.2300 ####[facility] [address] [place], [address] WBC (Bld) [#/Vol] 8.8 10*3/uL Normal 4.4-11.0 [facility] Comment on above: Performed By: #### L 501.5200, L500.4050, L100.0100, L501.2300 ####[facility] [address] [place], [address] Carbon dioxide, total [Moles /volume] in Central venous bloodOrdered By: Franco Pérez on 07-13-2024 CO2 [Moles/Vol] 22.6 mmol/L 21.0-32.0 [facility] Chloride assayOrdered By: Kala Pérez on 07-13-2024 Chloride [Moles/Vol] 101 mmol/L 98-108 [facility] Comprehensive Metabolic Prof ilon 07-13-2024 Albumin [Mass/Vol] 3.8 g/dL Normal 3.4-4.8 [facility] Comment on above: Performed By: #### L 501.5200, L500.4050, L100.0100, L501.2300 ####[facility] [address] [place], [address] Albumin/Globulin [Mass ratio] 1.1 {ratio} Normal 0.9-2.4 [facility] Comment on above: Performed By: #### L 501.5200, L500.4050, L100.0100, L501.2300 ####[facility] [address] [place], [address] ALK PHOS 104 U/L Normal 40-129 [facility] Comment on above: Performed By: #### L 501.5200, L500.4050, L100.0100, L501.2300 ####[facility] [address] [place], [address] ALT [Catalytic activity/Vol] 23 U/L Normal <=46 [facility] Comment on above: Performed By: #### L 501.5200, L500.4050, L100.0100, L501.2300 ####[facility] [address] [place], [address] AST [Catalytic activity/Vol] 21 U/L Normal <=37 [facility] Comment on above: Performed By: #### L 501.5200, L500.4050, L100.0100, L501.2300 ####[facility] [address] [place], [address] Bilirubin [Mass/Vol] 1.38 mg/dL High 0.00-1.30 [facility] Comment on above: Performed By: #### L 501.5200, L500.4050, L100.0100, L501.2300 ####[facility] [address] [place], [address] BUN/CRE 26.3 RATIO High 10-20 [facility] Comment on above: Performed By: #### L 501.5200, L500.4050, L100.0100, L501.2300 ####[facility] [address] [place], [address] Calcium [Mass/Vol] 10.2 mg/dL Normal 7.6-11.0 [facility] Comment on above: Performed By: #### L 501.5200, L500.4050, L100.0100, L501.2300 ####[facility] [address] [place], [address] Chloride [Moles/Vol] 101 mmol/L Normal 98-108 [facility] Comment on above: Performed By: #### L 501.5200, L500.4050, L100.0100, L501.2300 ####[facility] [address] [place], [address] CO2 [Moles/Vol] 22.6 mmol/L Normal 21.0-32.0 [facility] Comment on above: Performed By: #### L 501.5200, L500.4050, L100.0100, L501.2300 ####[facility] [address] [place], [address] Creatinine [Mass/Vol] 1.06 mg/dL Normal 0.70-1.20 [facility] Comment on above: Performed By: #### L 501.5200, L500.4050, L100.0100, L501.2300 ####[facility] [address] [place], [address] ECRCL 93.64 ml/min Normal 50-250 [facility] Comment on above: Performed By: #### L 501.5200, L500.4050, L100.0100, L501.2300 ####[facility] [address] [place], [address] GAP 13 Normal 5-15 [facility] Comment on above: Performed By: #### L 501.5200, L500.4050, L100.0100, L501.2300 ####[facility] [address] [place], [address] GFR/1.73 sq M.predicted among non-blacks MDRD (S/P/Bld) [Vol rate/Area] 75 mL/min/{1.73_m2} Normal >60 [facility] Comment on above: Result Comment: mL/m in/1.73m2 CKD-EPI Creatinine Equation (2020) Performed By: #### L 501.5200, L500.4050, L100.0100, L501.2300 ####[facility] [address] [place], [address] Globulin (S) [Mass/Vol] 3.5 g/dL Normal 2.2-4.2 [facility] Comment on above: Performed By: #### L 501.5200, L500.4050, L100.0100, L501.2300 ####[facility] [address] [place], [address] Glucose [Mass/Vol] 203 mg/dL High 70-99 [facility] Comment on above: Performed By: #### L 501.5200, L500.4050, L100.0100, L501.2300 ####[facility] [address] [place], [address] Potassium [Moles/Vol] 4.1 mmol/L Normal 3.3-5.1 [facility] Comment on above: Performed By: #### L 501.5200, L500.4050, L100.0100, L501.2300 ####[facility] [address] [place], [address] Sodium [Moles/Vol] 137 mmol/L Normal 133-145 [facility] Comment on above: Performed By: #### L 501.5200, L500.4050, L100.0100, L501.2300 ####[facility] [address] [place], [address] T PROT 7.3 g/dL Normal 5.9-8.4 [facility] Comment on above: Performed By: #### L 501.5200, L500.4050, L100.0100, L501.2300 ####[facility] [address] [place], [address] Urea nitrogen [Mass/Vol] 28 mg/dL High 4-19 [facility] Comment on above: Performed By: #### L 501.5200, L500.4050, L100.0100, L501.2300 ####[facility] [address] [place], [address] Eosinophil percentageOrdered By: Franco Pérez on 07-13-2024 Eosinophils/100 WBC (Bld) 2.0 % 0-5 [facility] Erythrocyte distribution wid th (RBC) [Ratio]Ordered By: Franco Pérez on 07-13-2024 Erythrocyte distribution width (RBC) [Entitic vol] 46.4 fL High 35.1-43.9 [facility] Erythrocyte distribution wid th ratioOrdered By: Franco Pérez on 07-13-2024 Erythrocyte distribution width (RBC) [Ratio] 13.8 % 11.6-14.6 [facility] Estimation of creatinine say aranceOrdered By: Franco Pérez on 07-13-2024 Estimated Creatinine Clearance Calc 93.64 ml/min 50-250 [facility] GFR/1.73 sq M.predicted carli g non-blacks MDRD (S/P/Bld) [Vol rate/Area]Ordered By: Franco Anderson on 07-13-2024 Estimated GFR (MDRD) Non-Af Amer 75 >60 [facility] Comment on above: mL/min/1.73m2 CKD-EP I Creatinine Equation (2020) Hematocrit Auto (Bld) [Volum e fraction]Ordered By: Franco Anderson on 07-13-2024 Hematocrit (Bld) [Volume fraction] 44.1 % 40-54 [facility] Hemoglobin measurementOrdere d By: Franco Anderson on 07-13-2024 Hemoglobin (Bld) [Mass/Vol] 14.3 g/dL 13.0-16.5 [facility] Immature granulocytes/100 WB C Auto (Bld)Ordered By: Franco Anderson on 07-13-2024 Immature granulocytes/100 WBC (Bld) 1.200 % High 0.0-0.9 [facility] Comment on above: IG% - Immature Granu locytes (promyelocytes, myelocytes and metamyelocytes) > 1% indicates that a LEFT SHIFT is Present. Laboratory - Chemistry and C hemistry - challengeOrdered By: Franco Justin on 07-13-2024 AST [Catalytic activity/Vol] 21 U/L <38 [facility] Lymphocytes Auto (Unsp spec) [#/Vol]Ordered By: [facility] on 07-13-2024 Lymphocytes (Bld) [#/Vol] 0.88 10*3/uL 0.83-4.51 [facility] Lymphocytes/100 WBC Auto (Un sp spec)Ordered By: [facility] on 07-13-2024 Lymphocytes/100 WBC (Bld) 10.0 % Low 19-41 [facility] MCV (mean corpuscular volume ) determinationOrdered By: [facility] on 07-13-2024 MCV (RBC) [Entitic vol] 91.5 fL 80-94 [facility] Magnesiumon 07-13-2024 Magnesium [Mass/Vol] 1.8 mg/dL Normal 1.5-2.2 [facility] Comment on above: Performed By: #### L 501.5200, L500.4050, L100.0100, L501.2300 ####[facility] [address] [place], [place], [address] Magnesium (Unsp spec) [Mass/ Vol]Ordered By: Franco Pérez on 07-13-2024 Magnesium [Mass/Vol] 1.8 mg/dL 1.5-2.2 [facility] Mean corpuscular hemoglobin (MCH) determinationOrdered By: Franco Pérez on 07-13-2024 MCH (RBC) [Entitic mass] 29.7 pg 27.0-32.0 [facility] Mean corpuscular hemoglobin concentration (MCHC) determinationOrdered By: Franco Pérez on 07-13-2024 MCHC (RBC) [Mass/Vol] 32.4 g/dL 32-36 [facility] Mean platelet volume determi nationOrdered By: Franco Pérez on 07-13-2024 Platelet mean volume (Bld) [Entitic vol] 11.7 fL 6.2-12.0 [facility] Monocyte percentageOrdered B y: Franco Pérez on 07-13-2024 Monocytes/100 WBC (Bld) 7.0 % 0-10 [facility] Neutrophil percentageOrdered By: Franco Pérez on 07-13-2024 Neutrophils/100 WBC (Bld) 79.2 % High 47-70 [facility] Nucleated red blood cell per centageOrdered By: Franco Pérez on 07-13-2024 Nucleated RBC/100 WBC (Bld) [Ratio] 0 % 0-5 [facility] Oncology Visit Reporton 06-24 Oncology Visit Report Normal [facility] Phosphoruson 07-13-2024 Phosphate [Mass/Vol] 3.3 mg/dL Normal 2.7-4.5 [facility] Comment on above: Performed By: #### L 501.5200, L500.4050, L100.0100, L501.2300 ####[facility] [address] [facility] [place], [address] Platelet countOrdered By: Kala Pérez on 07-13-2024 Platelets (Bld) [#/Vol] 178 10*3/uL 150-450 [facility] Potassium (Unsp spec) [Mass/ Vol]Ordered By: rFanco Pérez on 07-13-2024 Potassium [Moles/Vol] 4.1 mmol/L 3.3-5.1 [facility] RBC Auto (Bld) [#/Vol]Ordere d By: Franco Pérez on 07-13-2024 RBC (Bld) [#/Vol] 4.82 10*6/uL 4.6-6.2 [facility] SP/HP.SP.Suzan 07-13-2024 SP/HP.SP.EV Normal [facility] Serum creatinine measurement (mass/volume)Ordered By: Franco Pérez on 07-13-2024 Creatinine [Mass/Vol] 1.06 mg/dL 0.70-1.20 [facility] Serum globulin measurementOr dered By: Franco Préez on 07-13-2024 Globulin (S) [Mass/Vol] 3.5 g/dL 2.2-4.2 [facility] Serum glucose measurement (m ass/volume)Ordered By: Franco Pérez on 07-13-2024 Glucose [Mass/Vol] 203 mg/dL High 70-99 [facility] Serum or plasma alanine cabral otransferase (ALT) measurementOrdered By: Franco Pérez on 07-13-2024 ALT [Catalytic activity/Vol] 23 U/L <47 [facility] Serum or plasma albumin blaine urement (mass/volume)Ordered By: Franco Pérez on 07-13-2024 Albumin [Mass/Vol] 3.8 g/dL 3.4-4.8 [facility] Serum or plasma albumin/glob ulin mass ratioOrdered By: Franco Pérez on 07-13-2024 Albumin/Globulin [Mass ratio] 1.1 {ratio} 0.9-2.4 [facility] Serum or plasma alkaline zee sphatase measurementOrdered By: Franco Pérez on 07-13-2024 ALP [Catalytic activity/Vol] 104 U/L 40-129 [facility] Serum or plasma calcium blaine urement (mass/volume)Ordered By: Franco Pérez on 07-13-2024 Calcium [Mass/Vol] 10.2 mg/dL 7.6-11.0 [facility] Serum or plasma urea nitroge n measurement (mass/volume)Ordered By: Franco Pérez on 07-13-2024 Urea nitrogen [Mass/Vol] 28 mg/dL High 4- [facility] Serum phosphorus measurement Ordered By: Franco Pérez on 07-13-2024 Phosphorus Level 3.3 mg/dL 2.7-4.5 [facility] Sodium levelOrdered By: Jonathon Pérez on 07-13-2024 Sodium [Moles/Vol] 137 mmol/L 133-145 [facility] Surgery Visit Reporton 07-13 Surgery Visit Report Normal [facility] Total proteinOrdered By: Faheem Pérez on 07-13-2024 Protein [Mass/Vol] 7.3 g/dL 5.9-8.4 [facility] White blood cell (WBC) count Ordered By: Franco Pérez on 07-13-2024 WBC (Bld) [#/Vol] 8.8 10*3/uL 4.4-11.0 [facility] CXR for Line Placementon CXR for Line Placement Normal [facility] Discharge Instructionon 06-23 Discharge Instruction Normal [facility] MR/POSTOP.ANEon 07-09-2024 MR/POSTOP.ANE Normal [facility] MR/[id number] 07-09-2024 MR/POSTOPAN2 Normal [facility] Operative Reporton Operative Report Normal [facility] Radiation Oncology Visiton 0 07-08-2024 Radiation Oncology Visit Normal [facility] Absolute neutrophil countOrd ered By: Ashly Laguerre on 07-06-2024 Neutrophils (Bld) [#/Vol] 6.2 10*3/uL 2.0-7.7 [facility] Anion gap in Serum or Plasma Ordered By: Ashly Laguerre on 07-06-2024 Anion gap [Moles/Vol] 12 mmol/L 5-15 [facility] BUN/creatinine ratioOrdered By: Ashly Laguerre on 07-06-2024 Urea nitrogen/Creatinine [Mass ratio] 15.2 mg/mg 10-20 [facility] Basophil percentageOrdered B y: Ashly Laguerre on 07-06-2024 Basophils/100 WBC (Bld) 0.8 % 0-1 [facility] Bilirubin, totalOrdered By: Ashly Laguerre on 07-06-2024 Bilirubin [Mass/Vol] 1.06 mg/dL 0.00-1.30 [facility] CBC W/Diff, Automatedon 06-23 Absolute Lymph 1.11 X10 3/uL Normal 0.83-4.51 [facility] Comment on above: Performed By: #### L 100.0100, L500.4050 ####[facility] [address] [place], [address] Absolute Neut 6.2 X10 3/uL Normal 2.0-7.7 [facility] Comment on above: Performed By: #### L 100.0100, L500.4050 ####[facility] [address] [place], [address] Basophils/100 WBC (Bld) 0.8 % Normal 0-1 [facility] Comment on above: Performed By: #### L 100.0100, L500.4050 ####[facility] [address] [place], [address] Eosinophils/100 WBC (Bld) 1.5 % Normal 0-5 [facility] Comment on above: Performed By: #### L 100.0100, L500.4050 ####[facility] [address] [place], [address] Erythrocyte distribution width (RBC) [Ratio] 14.1 % Normal 11.6-14.6 [facility] Comment on above: Performed By: #### L 100.0100, L500.4050 ####[facility] [address] [place], [address] Hematocrit (Bld) [Volume fraction] 43.2 % Normal 40-54 [facility] Comment on above: Performed By: #### L 100.0100, L500.4050 ####[facility] [address] [place], [address] Hemoglobin (Bld) [Mass/Vol] 14.1 g/dL Normal 13.0-16.5 [facility] Comment on above: Performed By: #### L 100.0100, L500.4050 ####[facility] [address] [place], [address] IG% 0.700 Normal 0.0-0.9 [facility] Comment on above: Result Comment: IG% - Immature Granulocytes (promyelocytes, myelocytes andmetamyelocytes) > 1% indicates that a LEFT SHIFT is Present. Performed By: #### L 100.0100, L500.4050 ####[facility] [address] [place], [address] Lymphocytes/100 WBC (Bld) 13.1 % Low 19-41 [facility] Comment on above: Performed By: #### L 100.0100, L500.4050 ####[facility] [address] [place], [address] MCH (RBC) [Entitic mass] 29.7 pg Normal 27.0-32.0 [facility] Comment on above: Performed By: #### L 100.0100, L500.4050 ####[facility] [address] [place], [address] MCHC (RBC) [Mass/Vol] 32.6 g/dL Normal 32-36 [facility] Comment on above: Performed By: #### L 100.0100, L500.4050 ####[facility] [address] [place], [address] MCV (RBC) [Entitic vol] 91.1 fL Normal 80-94 [facility] Comment on above: Performed By: #### L 100.0100, L500.4050 ####[facility] [address] [place], [address] Monocytes/100 WBC (Bld) 10.4 % High 0-10 [facility] Comment on above: Performed By: #### L 100.0100, L500.4050 ####[facility] [address] [place], [address] Neutrophils/100 WBC (Bld) 73.5 % High 47-70 [facility] Comment on above: Performed By: #### L 100.0100, L500.4050 ####[facility] [address] [place], [address] Nucleated RBC (Bld) [#/Vol] 0 10*3/uL Normal 0-5 [facility] Comment on above: Performed By: #### L 100.0100, L500.4050 ####[facility] [address] [place], [address] Platelet mean volume (Bld) [Entitic vol] 11.8 fL Normal 6.2-12.0 [facility] Comment on above: Performed By: #### L 100.0100, L500.4050 ####[facility] [address] [place], [address] Platelets (Bld) [#/Vol] 162 10*3/uL Normal 150-450 [facility] Comment on above: Performed By: #### L 100.0100, L500.4050 ####[facility] [address] [place], [address] RBC (Bld) [#/Vol] 4.74 10*6/uL Normal 4.6-6.2 [facility] Comment on above: Performed By: #### L 100.0100, L500.4050 ####[facility] [address] [place], [address] RDW SD 47.2 fl High 35.1-43.9 [facility] Comment on above: Performed By: #### L 100.0100, L500.4050 ####[facility] [address] [place], [address] WBC (Bld) [#/Vol] 8.5 10*3/uL Normal 4.4-11.0 [facility] Comment on above: Performed By: #### L 100.0100, L500.4050 ####[facility] [address] [place], [address] Absolute Neut Normal 2.0-7.7 [facility] Comment on above: Result Comment: @DUP LICATE ORDER Performed By: #### L 501.5200, L501.2300, L100.0100 ####[facility] [address] [place], [address] HCT Normal 40-54 [facility] Comment on above: Result Comment: @DUP LICATE ORDER Performed By: #### L 501.5200, L501.2300, L100.0100 ####[facility] [address] [place], [address] HGB Normal 13.0-16.5 [facility] Comment on above: Result Comment: @DUP LICATE ORDER Performed By: #### L 501.5200, L501.2300, L100.0100 ####[facility] [address] [place], [address] MCH Normal 27.0-32.0 [facility] Comment on above: Result Comment: @DUP LICATE ORDER Performed By: #### L 501.5200, L501.2300, L100.0100 ####[facility] [address] [place], [address] MCHC Normal 32-36 [facility] Comment on above: Result Comment: @DUP LICATE ORDER Performed By: #### L 501.5200, L501.2300, L100.0100 ####[facility] [address] [place], [address] MCV Normal 80-94 [facility] Comment on above: Result Comment: @DUP LICATE ORDER Performed By: #### L 501.5200, L501.2300, L100.0100 ####[facility] [address] [place], [address] NEUT% Normal 47-70 [facility] Comment on above: Result Comment: @DUP LICATE ORDER Performed By: #### L 501.5200, L501.2300, L100.0100 ####[facility] [address] [place], [address] PLT Normal 150-450 [facility] Comment on above: Result Comment: @DUP LICATE ORDER Performed By: #### L 501.5200, L501.2300, L100.0100 ####[facility] [address] [place], [address] RBC Normal 4.6-6.2 [facility] Comment on above: Result Comment: @DUP LICATE ORDER Performed By: #### L 501.5200, L501.2300, L100.0100 ####[facility] [address] [place], [address] RDW CV Normal 11.6-14.6 [facility] Comment on above: Result Comment: @DUP LICATE ORDER Performed By: #### L 501.5200, L501.2300, L100.0100 ####[facility] [address] [place], [address] RDW SD Normal 35.1-43.9 [facility] Comment on above: Result Comment: @DUP LICATE ORDER Performed By: #### L 501.5200, L501.2300, L100.0100 ####[facility] [address] [place], [address] WBC Normal 4.4-11.0 [facility] Comment on above: Result Comment: @DUP LICATE ORDER Performed By: #### L 501.5200, L501.2300, L100.0100 ####[facility] [address] [place], [address] CXR for Line Placementon CXR for Line Placement Normal [facility] Carbon dioxide, total [Moles /volume] in Central venous bloodOrdered By: Ashly Shade on 07-06-2024 CO2 [Moles/Vol] 23.2 mmol/L 21.0-32.0 [facility] Chloride assayOrdered By: Ty ra Shade on 07-06-2024 Chloride [Moles/Vol] 103 mmol/L 98-108 [facility] Comprehensive Metabolic Prof ilon 07-06-2024 Albumin [Mass/Vol] 4.0 g/dL Normal 3.4-4.8 [facility] Comment on above: Performed By: #### L 100.0100, L500.4050 ####[facility] [address] [place], [address] Albumin/Globulin [Mass ratio] 1.2 {ratio} Normal 0.9-2.4 [facility] Comment on above: Performed By: #### L 100.0100, L500.4050 ####[facility] [address] [place], [address] ALK PHOS 120 U/L Normal 40-129 [facility] Comment on above: Performed By: #### L 100.0100, L500.4050 ####[facility] [address] [place], [address] ALT [Catalytic activity/Vol] 21 U/L Normal <=46 [facility] Comment on above: Performed By: #### L 100.0100, L500.4050 ####[facility] [address] [place], [address] AST [Catalytic activity/Vol] 22 U/L Normal <=37 [facility] Comment on above: Performed By: #### L 100.0100, L500.4050 ####[facility] [address] [place], [address] Bilirubin [Mass/Vol] 1.06 mg/dL Normal 0.00-1.30 [facility] Comment on above: Performed By: #### L 100.0100, L500.4050 ####[facility] [address] [place], [address] BUN/CRE 15.2 RATIO Normal 10-20 [facility] Comment on above: Performed By: #### L 100.0100, L500.4050 ####[facility] [address] [place], [address] Calcium [Mass/Vol] 9.9 mg/dL Normal 7.6-11.0 [facility] Comment on above: Performed By: #### L 100.0100, L500.4050 ####[facility] [address] [place], [address] Chloride [Moles/Vol] 103 mmol/L Normal 98-108 [facility] Comment on above: Performed By: #### L 100.0100, L500.4050 ####[facility] [address] [place], [address] CO2 [Moles/Vol] 23.2 mmol/L Normal 21.0-32.0 [facility] Comment on above: Performed By: #### L 100.0100, L500.4050 ####[facility] [address] [place], [address] Creatinine [Mass/Vol] 1.28 mg/dL High 0.70-1.20 [facility] Comment on above: Performed By: #### L 100.0100, L500.4050 ####[facility] [address] [place], [address] ECRCL 77.55 ml/min Normal 50-250 [facility] Comment on above: Performed By: #### L 100.0100, L500.4050 ####[facility] [address] [place], [address] GAP 12 Normal 5-15 [facility] Comment on above: Performed By: #### L 100.0100, L500.4050 ####[facility] [address] [place], [address] GFR/1.73 sq M.predicted among non-blacks MDRD (S/P/Bld) [Vol rate/Area] 59 mL/min/{1.73_m2} Low >60 [facility] Comment on above: Result Comment: mL/m in/1.73m2 CKD-EPI Creatinine Equation (2020) Performed By: #### L 100.0100, L500.4050 ####[facility] [address] [place], [address] Globulin (S) [Mass/Vol] 3.3 g/dL Normal 2.2-4.2 [facility] Comment on above: Performed By: #### L 100.0100, L500.4050 ####[facility] [address] [place], [address] Glucose [Mass/Vol] 214 mg/dL High 70-99 [facility] Comment on above: Performed By: #### L 100.0100, L500.4050 ####[facility] [address] [place], [address] Potassium [Moles/Vol] 4.3 mmol/L Normal 3.3-5.1 [facility] Comment on above: Performed By: #### L 100.0100, L500.4050 ####[facility] [address] [place], [address] Sodium [Moles/Vol] 138 mmol/L Normal 133-145 [facility] Comment on above: Performed By: #### L 100.0100, L500.4050 ####[facility] [address] [place], [address] T PROT 7.4 g/dL Normal 5.9-8.4 [facility] Comment on above: Performed By: #### L 100.0100, L500.4050 ####[facility] [address] [place], [address] Urea nitrogen [Mass/Vol] 20 mg/dL High 4-19 [facility] Comment on above: Performed By: #### L 100.0100, L500.4050 ####[facility] [address] [place], [address] Eosinophil percentageOrdered By: Ashly Laguerre on 07-06-2024 Eosinophils/100 WBC (Bld) 1.5 % 0-5 [facility] Erythrocyte distribution wid th (RBC) [Ratio]Ordered By: Ashly Laguerre on 07-06-2024 Erythrocyte distribution width (RBC) [Entitic vol] 47.2 fL High 35.1-43.9 [facility] Erythrocyte distribution wid th ratioOrdered By: Ashly Laguerre on 07-06-2024 Erythrocyte distribution width (RBC) [Ratio] 14.1 % 11.6-14.6 [facility] Estimation of creatinine say aranceOrdered By: Ashly Laguerre on 07-06-2024 Estimated Creatinine Clearance Calc 77.55 ml/min 50-250 [facility] GFR/1.73 sq M.predicted carli g non-blacks MDRD (S/P/Bld) [Vol rate/Area]Ordered By: Ashly Laguerre on 07-06-2024 Estimated GFR (MDRD) Non-Af Amer 59 Low >60 [facility] Comment on above: mL/min/1.73m2 CKD-EP I Creatinine Equation (2020) Hematocrit Auto (Bld) [Volum e fraction]Ordered By: Ashly Laguerre on 07-06-2024 Hematocrit (Bld) [Volume fraction] 43.2 % 40-54 [facility] Hemoglobin measurementOrdere d By: Ashly Laguerre on 07-06-2024 Hemoglobin (Bld) [Mass/Vol] 14.1 g/dL 13.0-16.5 [facility] Immature granulocytes/100 WB C Auto (Bld)Ordered By: Ashly Laguerre on 07-06-2024 Immature granulocytes/100 WBC (Bld) 0.700 % 0.0-0.9 [facility] Comment on above: IG% - Immature Granu locytes (promyelocytes, myelocytes and metamyelocytes) > 1% indicates that a LEFT SHIFT is Present. Laboratory - Chemistry and C hemistry - challengeOrdered By: Ashly Laguerre on 07-06-2024 AST [Catalytic activity/Vol] 22 U/L <38 [facility] Lymphocytes Auto (Unsp spec) [#/Vol]Ordered By: Ashly Laguerre on 07-06-2024 Lymphocytes (Bld) [#/Vol] 1.11 10*3/uL 0.83-4.51 [facility] Lymphocytes/100 WBC Auto (Un sp spec)Ordered By: Ashly Laguerre on 07-06-2024 Lymphocytes/100 WBC (Bld) 13.1 % Low 19-41 [facility] MCV (mean corpuscular volume ) determinationOrdered By: Ashly Laguerre on 07-06-2024 MCV (RBC) [Entitic vol] 91.1 fL 80-94 [facility] Magnesiumon 07-06-2024 Magnesium [Mass/Vol] 1.9 mg/dL Normal 1.5-2.2 [facility] Comment on above: Order Comment: ADD O N FROM TODAYS LAB - THANKS Performed By: #### L 501.5200, L501.2300, L100.0100 ####[facility] [id number] [place], [address] Magnesium (Unsp spec) [Mass/ Vol]Ordered By: Franco Pérez on 07-06-2024 Magnesium [Mass/Vol] 1.9 mg/dL 1.5-2.2 [facility] Mean corpuscular hemoglobin (MCH) determinationOrdered By: Ashly Laguerre on 07-06-2024 MCH (RBC) [Entitic mass] 29.7 pg 27.0-32.0 [facility] Mean corpuscular hemoglobin concentration (MCHC) determinationOrdered By: Ashly VallesShade on 07-06-2024 MCHC (RBC) [Mass/Vol] 32.6 g/dL 32-36 [facility] Mean platelet volume determi nationOrdered By: Ashly VallesShade on 07-06-2024 Platelet mean volume (Bld) [Entitic vol] 11.8 fL 6.2-12.0 [facility] Monocyte percentageOrdered B y: Ashly Laguerre on 07-06-2024 Monocytes/100 WBC (Bld) 10.4 % High 0-10 [facility] Neutrophil percentageOrdered By: Ashly Laguerre on 07-06-2024 Neutrophils/100 WBC (Bld) 73.5 % High 47-70 [facility] Nucleated red blood cell per centageOrdered By: Ashly Laguerre on 07-06-2024 Nucleated RBC/100 WBC (Bld) [Ratio] 0 % 0-5 [facility] Oncology Visit Reporton 06-23 Oncology Visit Report Normal [facility] Phosphoruson 07-06-2024 Phosphate [Mass/Vol] 3.0 mg/dL Normal 2.7-4.5 [facility] Comment on above: Order Comment: ADD O N FROM TODAYS LAB - THANKS Performed By: #### L [id number], L501.2300, L100.0100 ####[facility] [id number] [place], [address] Platelet countOrdered By: Ty ra Laguerre on 07-06-2024 Platelets (Bld) [#/Vol] 162 10*3/uL 150-450 [facility] Potassium (Unsp spec) [Mass/ Vol]Ordered By: Ashly Laguerre on 07-06-2024 Potassium [Moles/Vol] 4.3 mmol/L 3.3-5.1 [facility] RBC Auto (Bld) [#/Vol]Ordere d By: Ashly VallesShade on 07-06-2024 RBC (Bld) [#/Vol] 4.74 10*6/uL 4.6-6.2 [facility] Serum creatinine measurement (mass/volume)Ordered By: Ashly Laguerre on 07-06-2024 Creatinine [Mass/Vol] 1.28 mg/dL High 0.70-1.20 [facility] Serum globulin measurementOr dered By: Ashly Laguerre on 07-06-2024 Globulin (S) [Mass/Vol] 3.3 g/dL 2.2-4.2 [facility] Serum glucose measurement (m ass/volume)Ordered By: Ashly Laguerre on 07-06-2024 Glucose [Mass/Vol] 214 mg/dL High 70-99 [facility] Serum or plasma alanine cabral otransferase (ALT) measurementOrdered By: Ashly Laguerre on 07-06-2024 ALT [Catalytic activity/Vol] 21 U/L <47 [facility] Serum or plasma albumin blaine urement (mass/volume)Ordered By: Ashly Laguerre on 07-06-2024 Albumin [Mass/Vol] 4.0 g/dL 3.4-4.8 [facility] Serum or plasma albumin/glob ulin mass ratioOrdered By: Ashly Laguerre on 07-06-2024 Albumin/Globulin [Mass ratio] 1.2 {ratio} 0.9-2.4 [facility] Serum or plasma alkaline zee sphatase measurementOrdered By: Ashly Laguerre on 07-06-2024 ALP [Catalytic activity/Vol] 120 U/L 40-129 [facility] Serum or plasma calcium blaine urement (mass/volume)Ordered By: Ashly Laguerre on 07-06-2024 Calcium [Mass/Vol] 9.9 mg/dL 7.6-11.0 [facility] Serum or plasma urea nitroge n measurement (mass/volume)Ordered By: Ashly Laguerre on 07-06-2024 Urea nitrogen [Mass/Vol] 20 mg/dL High 4-19 [facility] Serum phosphorus measurement Ordered By: Franco Pérez on 07-06-2024 Phosphorus Level 3.0 mg/dL 2.7-4.5 [facility] Sodium levelOrdered By: Ashly Laguerre on 07-06-2024 Sodium [Moles/Vol] 138 mmol/L 133-145 [facility] Total proteinOrdered By: Sarai Laguerre on 07-06-2024 Protein [Mass/Vol] 7.4 g/dL 5.9-8.4 [facility] White blood cell (WBC) count Ordered By: Ashly Laguerre on 07-06-2024 WBC (Bld) [#/Vol] 8.5 10*3/uL 4.4-11.0 [facility] 12 Lead EKGon 07-02-2024 12 Lead EKG Normal [facility] CXR for Line Placementon CXR for Line Placement Normal [facility] Discharge Instructionon 06-23 Discharge Instruction Normal [facility] MR/POSTOP.ANEon 07-02-2024 MR/POSTOP.ANE Normal [facility] MR/[id number] 07-02-2024 MR/POSTOPAN2 Normal [facility] Operative Reporton Operative Report Normal [facility] Oncology Visit Reporton Oncology Visit Report Normal [facility] MR/PAT.ANEon 06-23-2024 MR/PAT.ANE Normal [facility] CREATININE FINGERSTICKon Creatinine [Mass/Vol] 1.1 mg/dL Normal 0.70-1.30 [facility] Comment on above: Performed By: #### L 9100.0200 ####[facility] [id number] [place], [place], [id number] EGFR WB > 60.0000 Normal >60 [facility] Comment on above: Performed By: #### L 9100.0200 ####[facility] [address] [place], [place], [address] Creatinine measurement at dsideOrdered By: Cipriano Layne on 06-19-2024 Creatinine [Mass/Vol] 1.1 mg/dL 0.70-1.30 [facility] EGFROrdered By: Cipriano delgado on 06-19-2024 Bedside Estimated GFR (eGFR) > 60.0000 mL/min >60 [facility] GFR/1.73 sq M.predicted among non-blacks MDRD (S/P/Bld) [Vol rate/Area] mL/min/{1.73_m2} >60 [facility] Progress Noteson 06-11-2024 Exercise Physiologist Certified Authentication Interface Message Text Teaching Physician Note: I saw and evaluated the patient. I personally obtained the jennings and critical portions of the history and physical exam. I reviewed the resident's documentation and discussed the patient with the resident. I agree with the resident's medical decision making as documented in the resident's note. Franco Sanchez DMD Normal [facility] Progress Noteson 06-05-2024 Exercise Physiologist Certified Authentication Interface Message Text Teaching Physician Note: I saw and evaluated the patient. I personally obtained the jennings and critical portions of the history and physical exam. I reviewed the resident's documentation and discussed the patient with the resident. I agree with the resident's medical decision making as documented in the resident's note. 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 for a 5day drug holiday for their xarelto for dental surgery and pt is going to have a copy of that clearance letter faxed to [facility]), referred to [facility] clinic for full mouth extractions prior to [...] PE (20mg xarelto 1x/day pt reports 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 Pt requires extraction of remaining dentition, alveoplasty, and removal of mandibular joaquim due to chronic periodontitis and prior to chemo/radiation tx. PLAN: Our plan is to extract all remaining dentition, perform alveoplasty, and removal of mandibular joaquim at next appt. Delbert Molina, DMD Normal [facility] Exercise Physiologist Certified Authentication Interface Message Text Normal [facility] Surgery Visit Reporton 06-03 Surgery Visit Report Normal [facility] Oncology Visit Reporton 05-23 Oncology Visit Report Normal [facility] Telephone Encounteron 2024 Exercise Physiologist Certified Authentication Interface Message Text Spoke with patient, who needs to get back in with oral surgery for extractions before cancer treatment. Reached out to schedulers, who scheduled patient for 06/04. Cindy Newell RN Normal [facility] Exercise Physiologist Certified Authentication Interface Message Text Hi Dr. Packer [...] Phone numbers Thank you, Danielle Normal [facility] Addendum Noteon 05-27-2024 Exercise Physiologist Certified Authentication Interface Message Text Addended by: CINDY NEWELL on: 05/27/2024 11:50 AM Modules accepted: Orders Normal [facility] Radiation Oncology Visiton 0 05-26-2024 Radiation Oncology Visit Normal [facility] Telephone Encounteron 2024 Exercise Physiologist Certified Authentication Interface Message Text PET scan report faxed to [place]. Cindy Newell RN Normal [facility] Telephone Encounteron 2024 Exercise Physiologist Certified Authentication Interface Message Text Brief ENT Telephone Note Called patient to discuss recent PET results (05/22/24), which showed IMPRESSION: 1. Hypermetabolic central base of tongue mass consistent with biopsy-proven squamous cell carcinoma. 2. Hypermetabolic right cervical lymphadenopathies as described above, consistent with regional metastatic disease. 3. No metabolic evidence of distant metastatic disease. 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 All questions answered and pt verbalized understanding of the plan. Simon Packer MD Otolaryngology - Head and Neck Surgery [facility] Pager: [phone] Normal [facility] GLUCOSE, FINGERSTICK-IN OFFI CEon 05-22-2024 Glucose [Mass/Vol] 197 mg/dL High 74-109 [facility] Comment on above: Performed By: #### [id number] ####NURSING GLUCOSE [id number] [facility] [place], [address] PET SKULL TO THIGH INITIALon 05-22-2024 PET [...] distant metastatic disease. MACRO: None Normal [facility] Progress Noteson 05-22-2024 Exercise Physiologist Certified Authentication Interface Message Text . Normal The [facility] [employer] Interface Message Text ----- Wednesday, May 22, 2024 at 4:22:24 PM ----- ----- Provider: [id number] - Resident Cabrera -- Clinic: [place] ----- INITIAL/COMPREHENSIVE EXAM Patient presents for an [...] ----- Provider: Graciela Weems DDS -- Clinic: [place] ----- Normal [facility] Tumor Board Noteon Exercise Physiologist Certified Authentication Interface Message Text Cancer Type: General [...] but is not scheduled. Tentative stage is [id number]. Surgical options include surgery to resect primary [...] and review of the literature. Normal [facility] Telephone Encounteron 2024 Exercise Physiologist Certified Authentication Interface Message Text Reports printed individually and faxed, notified Anila. Will also send PET report after 05/22/24. Cindy Newell RN Normal [facility] Progress Noteson 05-13-2024 Exercise Physiologist Certified Authentication Interface Message Text Documentation: Mode: In [...] sandwich Snack: none D: roast beef gyro, palauan fries Snack: none Beverages: water (60-80+ oz), coffee (3 pots) Shopping and cooking: self Dining out: 3-4 Days a week. Household size: 2 Food Assistance: None Adequate food supply and adequate cooking and storing equipment: all Social History: Substance use: none Smoking: none Alcohol: none Physical Activity: Aerobic (treadmill/recumbent bike) Frequency: 20-25 min Duration: 2-3x/week Nutrition Focused Physical Exam: Muscle loss: [place] region: well defined Clavicle region: not visible/not prominent Scapula region: no depressions Hand: muscle bulges Anterior thigh: well rounded Posterior calf: well developed Fat loss: Orbital region: bulged fat pads Tricep/bicep region: ample fat tissue Rib/back region: chest full/ribs do not show Edema: none Estimated Needs: 1091-7926 kcal/d 30-35 kcal/kg Adj BW 131-152 g pro/d 1.3-1.5 g pro/kg Adj BW 9487-5124 mL/d fluid Assessment for Malnutrition: Not at [...] tx concurrent chemoradiation, closer to home in [place]. Pt reports good appetite and eating well throughout the day. Mostly drinking water and coffee. Denies any pain or difficulties swallowing, taste changes, or ope (more content not included)... Normal [facility] Exercise Physiologist Certified Authentication Interface Message Text Consent signed by patient for baseline [facility] blood draw. Attempted on L hand with no success. Jeannette ARTEAGA in to see patient, able to draw from EMA with butterfly needle. Will be sent today via FedEx to [facility]. Will repeat after treatment. Cindy Newell RN Normal [facility] Exercise Physiologist Certified Authentication Interface Message Text OTOLARYNGOLOGY - HEAD AND NECK SURGERY CLINIC NOTE CHIEF COMPLAINT: Chief Complaint Patient presents with Post-op Follow-up Tongue biopsy HPI: Robert Ron is a 73 year old male with PMH significant for COPD, WALE on CPAP, hx of PE (2019) hx of left parotidectomy about 10 yrs (Dr. Dubois) who presents today, 05/13/2024, at the [facility] for follow up regarding right neck [...] LNP, pres. free, 50 mcg/0.5 mL dose (QXB=162) 01/24/2023, 01/21/2024 Influenza, injectable, high dose seasonal, trivalent, preservative free (SIY=802) 12/19/2016 Influenza, injectable, quadrivalent, preservative (UST=840) 12/22/2020, 01/03/2023 Influenza, injectable, trivalent, preservative (NEN=787) 01/07/2024 Influenza, novel M6K1-99, injectable, preservative-free (GSP=964) 02/03/2009 Moderna Monovalent (12+ yrs) COVID-19 vaccine, mRNA, spike protein, LNP, PF, 100 mcg/0.5 mL (NWG=066) 06/24/2020, 07/22/2020 Pneumococcal conjugate 20 valent (PCV20), polysaccharide DYR697 conjugate, adjuvant, PF (OZC=168) 01/21/2024 Respiratory syncytial virus (RSV), vaccine, recombinant, protein subunit RSV prefusion F, adjuvant reconstituted, 0.5 mL, preservative free (JEK=328) 01/24/2023 Zoster Recombinant (RZV,Shingles) (YDP=508) 08/20/2019 PHYSICAL EXAM: Vital Signs: Pulse 59 [...] Faith (more content not included)... Normal [facility] Exercise Physiologist Certified Authentication Interface Message Text Patient identfied by name and date of Pharmacy updated Vital signs taken Patent in exam room ready for MD Normal [facility] SPECIMEN FOR SURGICAL PATHOr dered By: Sun Allen on 05-12-2024 Case Report Surgical Pathology R eport Case: [id number] Authorizing Provider: Simon Packer MD Collected: 05/08/2024 0803 Ordering Location: [facility] Main OR Received: 05/08/2024 0810 Pathologist: Sun Allen MD Specimens: A) - Tongue, biopsy of right base of tongue B) - Tongue, Biopsy of base of tongue [facility] Work Phone: Clinical Information [facility] Work Phone: Final Diagnosis [id number] bGFuZz EwMzNcZnRuYmpcdWMxIHtccnRm HOqrpOypCPQ4PVNdGW0qiEkhgT h1lWjyQMBlndE4wFLuVIzbb5ki GZS2z7vclupnAXWdNYqxIq2gvO SuvZvqFlPvNZXcPEt8qZ36XWIn tP6dpGQySUc4QMQogEJbkeXnTf FaVVBryVLkfWF9ERQyMX6ykuhw BJqnMEcjENYyzlS6QDWgbSBuE0 SjNFEmNI6wuuokWWB6FXjaFKTk RJO1FmUpKEKoz1Ccvyx1AqSsiN ImOFzbbUOfltjcTLBfZgVgDT2i DuAkopn4UDeoZvdozTH9BJ1oRW KeP9w3JUVfc9Ihk7LanL6zX6Dx IlxwYXJcYjBccGFyIElOVkFTSV SUOQTNQ3DDXTHLVULJQXHOFeNK HCYEBPVUHLKSRT7XZfDGGPuRUF YKRuKELf0BGMN9aUMyZMCvX7Mh QPOek56cFKMbeYQjRIXgQkYzhc 44dm6cqtUgMS7sJSHhdkdpQPl1 IGK1IQwkRO6gNY2lX3Fld3uuLt syQBOmHNokDWVnXhUNLiOeJH8d R8UqTMHEbC9lz0csn4KbTxEgIW TpHxU1x22ncCTiRUQpnfojHIys KUVzTY1VBFJVRwBcVR3RHuqNQL RJRkZFUkVOVElBVEVEIFNRVUFN A8EDBHABWIhpI5HDN6lCN85MUN dpdGggdWxjZXJhdGlvbiBhbmQg dnMfau7aeXDwCKzkIVMaClXyq5 hbi7JfSYDzUhRexy9cxP0chtGn pUvcoYqmuKWjd5Kqb34mL1vnuc l9STtstJ0kp3svNmAyO9UzVUgq hYRws0pgl1CdX1uazFzvzOF9PU Wjx6GooPJuFCriFYJahEZcXUXu fr27MFK4TgFxk8Z7DIMrJrTvGB EgKV0wdTyiBOSoSE6gIMAxM1vv rA7crnn4LgQiKDQyUvR6SVNcsn A5Rxc1EEIlHKnso6btm2EoDSVn NEi7dByjXvWkLNDfh3fkmxSnHf HdKPXzXZNvHAXduYMfX098p7wb h6ajoxWucPA4BPZpCXZ9TEixwv BywjJ6MTnekMOcEcD2RYexhwQa QIZkX5EgQA79EObpfUAfOFIsO7 xyZWQwXGdyZWVuMFxibHVlMCA7 kRbkw9V4jSPyjRJvyNzaOoOkSh CcNnXEw0ViEYv5dSdcA0GkOCOy BvP2mQSzWZHfBNffTWGlWNAlhc K4yH85CZgbhwU6iEOfr2Psz37b l299dV3ekLEgDYD5MPAzBYAtaN KiPDWjWHV3YRSsfMWvF6veGQAe KO6zahogHVcrUEhoQADqyCP7MP LnlIRbN9AaOKHjNUipHNSrkuz1 OlEsAk5mgKInxZapLUqfk1qpw3 gmfHAxDfd4TYCcYgPtUxjgYDlu k8Kbw1dmSCJnmb1fPIQ8gHOsoF mnn8P0rUJmVWMnpDRrhwWtKQRm WxE3NToqLQ3axx69VDSdHNC3eg 5coAUijFfgzvNpqNGmNSoxO3Cg WEBpx612JNPgN7NaWZVuy1V1po MpZjPrYMPvrVU7jaK2UJVbWAh8 rAFxqvY9maKtoWDuA2vhzE6hRA StAK6zrvwra5paXJkjTMxqBNAh vUV3wkL1OTCzfQOzL1VehZ0dSI MqAJmhCUKhcsm5MzXhQw1jhVUp eTcyMFxzYmtwYWdlXHBnbmNvbn RccGduZGVjXHBsYWluXHBsYWlu YFTuVZAgHaSjmXdckThxyE6dMi CvElYyGbujJN3cTGSnW2rhhIXu EZXuYMTnJ4lhVkTncE9ryArzXZ xmczIyXHBhclxwbGFpblxmMVxm jkCvNXlcttgnZGAdOIpgB1xjGe PoWSIemStaVChbi3LhABKoYSOt FwGfZTnfG8Bal42cC8UitAfvQ1 lufwFdOK29bSCgxINHMD11nMlx O6PfRCWqasbbGMOuj49bNYKrPK rcDoPvZP8htUGhPAMbxtnyzYRp hkweYNmeqlB9IAozhwikRVGrTB tqD3piSpVmEKRujMvoYUyea3Tr EBOcWPIhVockxyQ1XZmaPVPmBD Q5jKM0SNBtKFMtOXLnEOGdl56t yGg1KRNkdrA1P8NdYKM9kQXpPE uaX95ja4NpBnHhmaWwfZU6iP9u CK3xHFBuHTVhXd95ZEDwgLWglF 8zkootWFNvziMoyUG0AWNoTR3t IDJiDTM1jIWmOmgkEYjbWUszO7 3gh5ikYJMuNF4yNHZcQGmuIQJm XGZzMjJcbGFuZzEwMzNcaGljaF reJYkbNpBnAIIuIKnsR0idDnMb ZnMyMlxwYXJccGFyfX0= [facility] Work Phone: Gross Description w0yiuAAqGFItmOTgCCng Nlxhbn ThBPJtbUXuF9CulypiWJyqUS3l NI0npHpnqRSxfHPwGKMyQbLib6 wie543kVQlm2gmRTZOiptanDk1 wBaxK44wv6Q9OrtrI59abIYzTK P1RLIkZQEonEKuKAFqFIP4IGOt bFKaJ2enRPQgOS9rrustLYklYY fcXGJzmDB4EWCqaWQlX7OaMZNv BBbsTCCmiqs6KpPjQy5zbHMqeH cyMFxwYXJkXHBsYWluXGZzMjAg VG9mFqZohXtxnHIrz28sITRdic EsvF4gO6MyTQLnbW2pc4csVyej eIP8BS9vINHoq4Ygn5DqhV4lI9 FpDl1qgFGjNNQaxjMCnUMwd1Wu B8lkUF5xlOOsmbIkTYh6UMBuTi Nld7vcjJ2fn34sEEOxtcYwdK2d lgpvgDYgWQxuLEC9wNCcGROlNA XmZSNtTY36F4GnjoQbISOcjuWl bWVkaWNhbCByZWNvcmQgbnVtYm JsHoCMYRNtSXPtYVQcQmUdz4Lw tFJtYxUuCYKsZQ8xBCFelkd3FZ CxATQsBZZvqYWacV9jltJwm32r uTM2kzDjStLjdYz6uUYuTZXtjc SpfLUrxLRiy5OhkRuufg90ZL1k QQFoHoKtyCjws9PoEX0aDIU9vg paItClSWrvPQ02DWybLH5yTGMl OJwvEEWpC3WmD6U3CUtvAQBtmA BhQTMzU4Brb25iTfTcBMIWdfW8 g6NoPJFeoziuEEJmSGAgYBOWeU jpyPSmDLBgOP7fWEIpggn7PNNg NUqsoHFmOJRmxmULXiTVXMS8dQ OnuXejobDfMGWrUFA7l79cwKHd IJJor1IlgCYsNuAiFVZaON0zDG Jkzbk9TKLzVZQlktlsVYBbMSbg HOAjEUFhlGSpIUfjMVLkV1Zkej MvSBNzSAHtVInkTY4gJAWrh216 YUjuBGGaWSsxEqFxEAYki7z4cQ U9rAPodLJ5uNOcbVisBI0ykXHr EY7yRX2gKEhnXLotznIvh0JkZD 05aDYhye7tOSRdy1UfABGvLRVz qQ6pq6jei0BsVpMgVSUdAvY4m3 7ppQXwYtHDdOTpy6KvX4drPR1z N35bg5queGLdg1GhvDDoqXjvjI UaPrJkO50vgmSsLC9nFVWguktz rNFtCRYxz3V9BNQez4O0SPGaQV EouPBsdhawOCO0KOQlZlM2JLKf ZsCsgRZwryIpH5lgFRxfpVHiPL YtsmmjELAbW6OcqSqibzZ6WMID xrY5h1WwYBYitysrBDPnPiWzCQ NOhX8tz5mip9UcUgKmHLGmDmG6 p84pcSSiZAxxPXMwwkcqXIEceW FyXHBhcmQgVmluYXlhayBBcnlh bCwgTURccGFyfQ== [facility] Work Phone: Immunohistochemistry c0wqxJWtCYCddNMbXWc wNlxhbn OuVGHvaBPdI6FemeofCGtlBV2x XA7kcFaicAVjqXSmDFFlLlUmb8 roe500pQBth8iyMLPLclxxoIr8 xYhnF64aq1I2FwpwF9vgSSTzGK dyZWVuMFxibHVlMDtccmVkMTEx XYuwXDJhPCPyJFFsrMUbYTF1iF xbXOCsucpaKvQ4UAicMAJpgoch CKf8RIphTRLvwYF3NKFqfLBsD5 ZbJNHfSY3arat5OCW3HOzpHCWh IrX9WQCjuIOmOOUyrNrvYBrxk5 16KYY7GeFcCHNotmBrqFhosB3u VhpfenYwQYpDXQGBI5aWB6LSO8 vWKNcYZUKQOPHMTDOZRXU0EGCj mtwpWWDeVU9aHW17UWYcazN0DL Nde63yWC7dsIZqKMbxWzBzVQgf oweqUCocEQEpYUMEhdXdZz6zvJ efcGOhTBCuXKUrDmamH9MqFMLh PF6dvSXyopSwKPUgBDStl0UpIH 6qXcktEuJbnGVnidjdU2vmOlLt ICg+JEXwXZ1tWXB3sG4mQAHyeO tpLWgpLSKjE6LjVSFjkzyalGYy pTnqVVICr36rPE37KyFpOCysJP zarLUcv7fpv7OsR0jwvUzsEGvz s7ZbbG9fy6SopS6tlYscNpWzv0 qzJqGgZNHoJCAhXp44ACFyhQHc bp1nxTMkZQcnRRBkMDggSMUkw2 CsANiejGHca3zcm7KuM3uqxNey LInyb1GpyD1kH4QfYIMaUCMuLV RkMFBxqpYxqN4uWAHkkGQsgJCd gHlbIFPaq0NpOouoAAWeTUOxsl zxKwHfT8KsI4GoPADpAhYSEPYf QIXKIyQyRRompIXgTEptP8ScWQ lnaCBncmFkZSBkeXNwbGFzaWFc A8NbDB9eSV2oxXOdgQVwlcBawB VzJH7nFUlicEQcxG6rg2szQSLr sqalMYGjMVooWZqbhPOka4vte2 HtS5rbyOnhDTpmo1YzxC5vGVX3 pIXeicQdiMqhFZUzp6QcYAXbNH lfb2Icev7zTKpjMVSuv8BzFEqg zUKze8zxd3EzY6mqlSegPNdul7 JshQ7tKJElEUUfw33iBTmndp85 FMO9x8ibmDFsBGyhQnhbmYGpux Y8VCzSXKIQQKqLVdPmSB2hIWgQ W9RBRJiTMkqzEUCeWEA5XKcefV whKpvkxkAatLYaEiCriP63yeSh pSM1sVUcKVRoCVRwU6Zlvnu9JC G1dFJoGVahTUMoRWVwhi4wFIPg z7llvOJyDFvdXdbtiLTmkiK5AK uCTCEICRmRBeHmMO1sDVeQX4CR MiE0FUQeHXn8fNW6KP46SPGmKV OcpANcOExnR533ACGyBHawPPAe MjAgLlxwYXJccGFyZFxwYXJcYi IVu934pq3kikzjAKYpYRMaOFHe mhiqfQWuOLehCPITMJTffS2bmZ 0iiPSeULSauwsdWHAag7MtHDtq IMY6NMHpSYFxM4QhWXOTzcCncN RlLXNwZWNpZmljIHJlYWdlbnRz IN4ySHWsz5ZqaS0rrFQbMKHokR 1wYWHuiGYhsUNuSpXSf5HvGlmn SXXLDWBzTxQCoc6tkZG0IHm9Uj CvHNk1EVTeb05muPJhrALsxAUe DJWsrkPdmT30xd1stKL3m6VwYQ 6yi6DneWF1AWPnRSDuvyPro5Yv PZVhszWifBbzsLEjqFPdRu5reG OxL6XtL6cjyuKamUAtuRB0nYKm MFMmePMhpAudPLGuYuvlx0YjXZ JkrlFfjpGgGDVVCWQcv7hnNMo0 hTHDFSQrK2ZdIHEcguTflhahIN AbXYH5fTEexPMkEuQPIPOac0kq L4tiVn1wjW14ynZ6KB4xd8JaHg ZwtxL1waOuqEjlxiSmPD4bAXEi eaLgdMRiyBYmuEsyv6CitKGnrT WvUKIvbkIiyPzaKUIfFQPAo64v PMndcITsq8sxw6NmB8walOiwSG tzo8ZvxU6pGLwjksJcsp31OZUc OS2uI7gyHVHmVNZtxyQxoMNsl3 NwCXMstBO4eFSaQYLqWk7jMPVr nuFkZYA0IhKZXM9ubhiddIMyqG qfhe6ePWHmATTFASZbtDUuNWWm dGVybWluZWQgdGhhdCBzdWNoIG IwEUIvDI0jRHLvgpGzhRAti5Oq tMGlvzOjy1EsegIuCPReCZP5Hr GwCXjawrB2QII9HShfZQRjZLVo As2wCMPqtC2bZ5VaASF9wsHzs4 YaYxSrATTxy6klfEseRE8qtZJe ZSByZWdhcmRlZCBhcyBpbnZlc3 IfR2R2pX0tYTrvl3GySw2iRTPf w3HqedMtLaUbHMYzXOxfcAg0QM VjAPV3oVNfg35aTUQjMGVilRZl UttyIVBykOJhyV8fwrKyBP1wYu keR49bMBAkkX3wj1pso2DkVn4i MKuly4nryXktXUNjFOolyQVwxX WqzLZaILbasJgtH1L7jDyxxmPb dgNfjIY4VM2jtPXuWKYonyGsT6 A9sNCkWQ8iTVUtjPGjUBrnazNz r4gxlsOvcSO4hRYpJZMHLC8dR6 I3bGVdDQVgk1DuwYHyebZrXRU7 vQ8wv1j7TYRsmGsiPjpxC9rfo1 hvdWxkIGJlIGludGVycHJldGVk PGbncXjpX0H2tHbnqwVjcqXzxN R2TD9gnSXqPDHaebIbK0X5jLNq VM6dNZLvKROaymInDl1caFldFZ JbzFPyOKoeswVsh8djsoJngRX0 qWNiZUWfQFUckY46jKFlWvObV9 1ikSVwUOTilE6vWBN0fDCkqXSj a8RsvNehPMkfRN9zbX0dc8lhxH JsVDCGhOroCDubJu7wVMNppick kEGaW2QmeOqrlBFkSHGrRCUyWL NMSUEgYXMgcXVhbGlmaWVkIHRv UFXcgnVlwi7qaSupjPFua04rmD S5oRS8IQSzw2IiexxrRSOzxyjx SlBcmYReZEAvJ40THxVGXZKMN3 1SPZBGDMHWH6BYL4iNUWA4BED6 TvpoRIGlN79XPfKGUHHFM03JQW AXJKKNN3PODQJBFXsHA6QLYN1G WMVHMHELWP8AEWqKWsNYUXvLN2 FKTL5DIUVHWWTHRQ4HZeJyCJcZ S1ZDX4uQRIDbSBFORRCSTONyRb ROOS6cXXh2CJuOQnK6QMG8Chk7 VECOFRVIMY1DWYJJE47GOMRUJF ELF9HEKBCOXuCUYAILX49CFAIG QXQEG6GXA2cFZCFPXwESELYIQ6 1COIVYATTAL1HSFADSDYVHHiKE HlSUHR8PFFKASQYXZP9CLChTWi GfDPIFJ8OVZsGQN9tzBDYWVMTL BIYtQU1CtR== [facility] Work Phone: Intraoperative Consult o0nceIVeESCveSQqG DkwNlxhbn DfUXOwyECiB5PfednfHCceCW3g IW3scCsykWAtcHGlCLMjZuFlr3 uti590rITur6hzBMIQyaxuwHa1 yMybS21rl7R5SmqyA34fpDVvPI Q8PECtVUKtxRXvBKRfUDQ2VHAd jXSbQ0euOXKfXR7ffbceRQkqGJ bjTYIknRD4VHYahOGjC1MiZPIu ZYzhKJYmhvv1KjYdBy9bcNIsbI cyMFxwYXJkXHBsYWluXGJcZnMy QVYBJbJiPD8xA8LxYPGtaG8ox5 lyy4RcjttxyFEjNgVmDNPvHtD2 [id number] FyfQ== [employer] Work Phone: [employer] Work Phone: Anesthesia Postprocedure Carol luationon 05-08-2024 Exercise Physiologist Certified Authentication Interface Message Text Anesthesia Postoperative Assessment: [...] EVENTS: No notable events documented. Normal The [employer] [facility] Anesthesia Preprocedure Eval uationon 05-08-2024 Exercise Physiologist Certified Authentication Interface Message Text ASA: 3 No [...] were discussed with the patient and/or legal electroplating sales representative. The risks, benefits and alternatives were reviewed. Questions regarding anesthesia were answered. Patient and/or legal electroplating sales representative knows such anesthetics and procedures may be performed by Resident physicians, Certified Anesthesiologist Assistants, or Certified Nurse Anesthetists under the supervision of a physician. The patient /or the patient's legal electroplating sales representative agree with the plan for anesthesia. MHPATFORM Normal [facility]-2024 Exercise Physiologist Certified Authentication Interface Message Text Patient taken to [...] report was received. POLLO Salazar Normal The [employer] [facility] Blood Attestationon 05-08-19 Exercise Physiologist Certified Authentication Interface Message Text Blood Attestation: ATTESTATION OF INFORMED CONSENT FOR BLOOD: The transfusion of blood and/or blood components were discussed with the patient and/or legal electroplating sales representative. The risks, benefits and alternatives were reviewed. Questions regarding blood transfusions were answered. The patient /or the patient's legal electroplating sales representative agree with the plan for transfusion of blood and/or blood components. Normal The [employer] [facility] Interval H AND P Noteon 04-25 Exercise Physiologist Certified Authentication Interface Message Text H AND P reviewed. The patient was examined and there are no changes to the H AND P. Medications, allergies, and pertinent laboratory and diagnostic tests were also reviewed at this time. Surgery still indicated. Normal The [employer] [facility] OP Noteon 05-08-2024 Exercise Physiologist Certified Authentication Interface Message Text Operative Report DATE OF SERVICE: 05/08/24 PATIENT: Robert Ron PREOPERATIVE DIAGNOSIS: 1. Oropharyngeal mass POSTOPERATIVE DIAGNOSIS: 1. Oropharyngeal mass, squamous cell carcinoma PROCEDURE: Direct laryngoscopy with biopsy, CPT 04757 SURGEON: Simon Packer MD JETTING MACHINE OPERATOR: Resident surgeons: MD Jimenez Craig MD ANESTHESIA: [...] present for the entire procedure. Normal The [employer] [facility] Telephone Encounteron 2024 Exercise Physiologist Certified Authentication Interface Message Text Reached patient, who is advised of scheduled speech, nutrition and ENT appointments as well as dental. He states that he has called his local dentist as well. If he can get in to them sooner, he will call and provide information so we can send dental clearance checklist. Cindy Newell RN Normal The [employer] [facility] BASIC METABOLIC PANELon Anion gap [Moles/Vol] 17 mmol/L Normal 10-20 [facility] [employer] [facility] Comment on above: Performed By: #### C H8 #### [facility] [address], [place], Calcium [Mass/Vol] 9.7 mg/dL Normal 8.6-10.3 [facility] [employer] [facility] Comment on above: Performed By: #### C H8 #### [facility] [address], [place], Chloride [Moles/Vol] 102 mmol/L Normal 98-107 [facility] [employer] [facility] Comment on above: Performed By: #### C H8 #### [facility] [address], [place], CO2 [Moles/Vol] 24 mmol/L Normal 21-31 [facility] Comment on above: Performed By: #### C H8 #### [facility] [address], [place], Creatinine [Mass/Vol] 0.99 mg/dL Normal 0.70-1.30 [facility] Comment on above: Performed By: #### C H8 #### [facility] [address], [place], ESTIMATED GFR (CKD-EPI) 81 mL/min/1.73sqm Normal [...] Inclusion of Race in Diagnosing Kidney Disease. [place] Journal of Kidney Diseases 2021;79(2):268-88.e1. 2. N Engl J Med 1 Vol. 385 Issue 19 Pages [phone] Performed By: #### C H8 #### [facility] [address], [place], Glucose [Mass/Vol] 181 mg/dL High 74-109 [facility] Comment on above: Performed By: #### C H8 #### [facility] [address], [place], Potassium [Moles/Vol] 4.1 mmol/L Normal 3.5-5.0 [facility] Comment on above: Performed By: #### C H8 #### [facility] [address], [place], Sodium [Moles/Vol] 139 mmol/L Normal 136-145 [facility] Comment on above: Performed By: #### C H8 #### [facility] [address], [place], Urea nitrogen [Mass/Vol] 22 mg/dL Normal 7-25 [facility] Comment on above: Performed By: #### C H8 #### [facility] [address], [place], Basic metabolic 2000 panelon 04-28-2024 Anion [...] CKD-EPI (S/P/Bld) [Vol rate/Area] 81 - PINF [facility] Comment on above: 2020 CKD EPI Equatio [...] Inclusion of Race in Diagnosing Kidney Disease. [place] Journal of Kidney Diseases 202;79(2):268-88.e1. 2. N Engl J Med 2020 Vol. 385 Issue 19 Pages 3692-7714 Glucose [Mass/Vol] 181 mg/dL High 74 - [...] fraction] 45.6 % 41.0 - 53.0 % [facility] Hemoglobin (Bld) [Mass/Vol] 15.1 g/dL 13.9 - 16.3 g/dL [facility] Interpretation and review of laboratory results Abnormal [facility] MCH (RBC) [Entitic mass] 30 pg 26.0 - 34.0 pg [facility] MCHC (RBC) [Mass/Vol] 33.2 g/dL 32.0 - 35.9 g/dL [facility] MCV (RBC) [Entitic vol] 91 fL 80 - 100 fL [facility] Platelet mean volume (Bld) [Entitic vol] 10.4 fL 7.5 - 11.2 fL [facility] Platelets (Bld) [#/Vol] 168 10*3/uL 150 - 400 K/uL [facility] RBC (Bld) [#/Vol] 5.04 10*6/uL [facility] WBC (Bld) [#/Vol] 9.8 10*3/uL 4.5 - 11.5 K/uL [facility] COMPLETE BLOOD COUNTon 04-28 Erythrocyte distribution width (RBC) [Ratio] 15.0 % High 11.5-14.5 [facility] Comment on above: Performed By: #### C BC #### [facility] [address] [place] [address], Hematocrit (Bld) [Volume fraction] 45.6 % Normal 41.0-53.0 [facility] Comment on above: Performed By: #### C BC #### [facility] [address] [place] [address], Hemoglobin (Bld) [Mass/Vol] 15.1 g/dL Normal 13.9-16.3 [facility] Comment on above: Performed By: #### C BC #### [facility] [address] [place] [address], MCH (RBC) [Entitic mass] 30.0 pg Normal 26.0-34.0 [facility] Comment on above: Performed By: #### C BC #### [facility] [address] [place] [address], MCHC (RBC) [Mass/Vol] 33.2 g/dL Normal 32.0-35.9 [facility] Comment on above: Performed By: #### C BC #### [facility] [address] [place] [address], MCV (RBC) [Entitic vol] 91 fL Normal 80-100 [facility] Comment on above: Performed By: #### C BC #### [facility] [address] [place] [address], Platelet mean volume (Bld) [Entitic vol] 10.4 fL Normal 7.5-11.2 [facility] Comment on above: Performed By: #### C BC #### [facility] [address] [place] [address], Platelets (Bld) [#/Vol] 168 10*3/uL Normal 150-400 [facility] Comment on above: Performed By: #### C BC #### [facility] [address] [place] [address], RBC (Bld) [#/Vol] 5.04 10*6/uL Normal 4.50-5.90 [facility] Comment on above: Performed By: #### C BC #### [facility] [address] [place] [address], WBC (Bld) [#/Vol] 9.8 10*3/uL Normal 4.5-11.5 [facility] Comment on above: Performed By: #### C BC #### [facility] [address] [place] [address], EKG 12 LEAD - PERFORMon Diagnosis Sinus rhythm with 1s t degree AV block Nonspecific ST abnormality Prolonged QT interval or tu fusion, consider myocardial disease, electrolyte imbalance, or drug effects Abnormal ECG Confirmed by ADÁN FREEMAN ([id number]) on 04/28/2024 1:41:04 PM [facility] P wave [facility] by EKG 84 BPM [facility] Q-T interval 470 ms [facility] Q-T interval corrected 545 ms [facility] QRS axis 66 degrees [facility] QRS duration 98 ms [facility] T wave axis 68 degrees [facility] H AND P (View-Only)on 2024 Exercise Physiologist Certified Authentication Interface Message Text OTOLARYNGOLOGY - HEAD [...] [place]) who presents today, 04/28/2024, at the [employer] [facility] at the request of Referring Provider: [...] LNP, pres. free, 50 mcg/0.5 mL dose (OAW=717) 01/24/2023, 01/21/2024 Influenza, injectable, high dose seasonal, trivalent, preservative free (ATP=819) 12/19/2016 Influenza, injectable, quadrivalent, preservative (SYF=236) 12/22/2020, 01/03/2023 Influenza, injectable, trivalent, preservative (EZN=688) 01/07/2024 Influenza, novel G3G3-24, injectable, preservative-free (EOC=507) 02/03/2009 Moderna Monovalent (12+ yrs) COVID-19 vaccine, mRNA, spike protein, LNP, PF, 100 mcg/0.5 mL (XTO=443) 06/24/2020, 07/22/2020 Pneumococcal conjugate 20 valent (PCV20), polysaccharide [id number] conjugate, adjuvant, PF (ZKB=622) 01/21/2024 Respiratory syncytial virus (RSV), vaccine, recombinant, protein subunit RSV prefusion F, adjuvant reconstituted, 0.5 mL, preservative free (XPF=873) 01/24/2023 Zoster Recombinant (RZV,Shingles) (RTX=519) 08/20/2019 PHYSICAL EXAM: Vital Signs: Pulse 82 [...] mid (more content not included)... Normal The [employer] [facility] Patient Instructionson 04-28 Exercise Physiologist Certified Authentication Interface Message Text On the morning [...] for pain. Please hold all Vitamin E, [place] 3, fish oil and herbal supplements for [...] otherwise contacted. ? Expect a call from [employer] one business day prior to surgery for [...] your Preparing for Your Surgery/Procedure booklet or [email or web address] if you have questions. Contact the Pre-Admission Testing department at [phone] or your surgeon's office with any questions [...] stay with you after surgery. Please call [employer] if you need transportation assistance or have concerns about going home [phone]. ? SLEEP APNEA PATIENTS: Bring your sleep apnea machine and mask. ? PLEASE BE ON TIME. A late arrival may result in the cancellation/ delay of your surgery. Thank you for choosing [employer]; it is our pleasure to care for you Normal The [employer] [facility] Progress Noteson 04-28-2024 Exercise Physiologist Certified Authentication Interface Message Text Pt identified by name and Pharmacy updated Vital signs taken Pt in exam room ready for provider Normal The [employer] [facility] Soft Tissue Neck WITH Contra ston 04-13-2024 Soft Tissue Neck WITH Contrast Normal [facility] L3300.0940on 01-11-2024 VIT D,25 HYDROX Normal [facility] Comment on above: Result Comment: TEST RESULTS LIMITSVitamin D, 25-Hydroxy 30.9 ng/mL 30.0-100.0Vitamin D deficiency has been defined by the [place] of[place]icine and an Endocrine Society practice guideline as alevel of serum 25-OH vitamin D less than 20 ng/mL (1,2).The Endocrine Society went on to further define vitamin Dinsufficiency as a level between 21 and 29 ng/mL (2).1. IOM ([place] of Medicine). 2010. Dietary reference intakes for calcium and D. [place]: The National Academies Press.2. Alissa MF, Jared [place], Jane ALEXANDRA, et al. Evaluation, treatment, and prevention of vitamin D deficiency: an Endocrine Society clinical practice guideline. JCEM. 2010; 96(7):1911-30. [facility] AT [facility]. ORIGINAL REPORT ON FILE IN LAB CONTAINS ADDITIONAL TEST SITE INFORMATION. Performed By: #### L 100.0100, L3300.0940, L501.9520, L500.4050 ####[facility] [address] [place], [address] CBC W/Diff, Automatedon 10-1 5-2023 Absolute Lymph 1.49 X10 3/uL Normal 0.83-4.51 [facility] Comment on above: Performed By: #### L 100.0100, L3300.0940, L501.9520, L500.4050 ####[facility] [address] [place], [address] Absolute Neut 6.5 X10 3/uL Normal 2.0-7.7 [facility] Comment on above: Performed By: #### L 100.0100, L3300.0940, L501.9520, L500.4050 ####[facility] [address] [place], [address] Basophils/100 WBC (Bld) 0.8 % Normal 0-1 [facility] Comment on above: Performed By: #### L 100.0100, L3300.0940, L501.9520, L500.4050 ####[facility] [address] [place], [address] Eosinophils/100 WBC (Bld) 1.6 % Normal 0-5 [facility] Comment on above: Performed By: #### L 100.0100, L3300.0940, L501.9520, L500.4050 ####[facility] [address] [place], [address] Erythrocyte distribution width (RBC) [Ratio] 14.2 % Normal 11.6-14.6 [facility] Comment on above: Performed By: #### L 100.0100, L3300.0940, L501.9520, L500.4050 ####[facility] [address] [place], [address] Hematocrit (Bld) [Volume fraction] 47.9 % Normal 40-54 [facility] Comment on above: Performed By: #### L 100.0100, L3300.0940, L501.9520, L500.4050 ####[facility] [address] [place], [address] Hemoglobin (Bld) [Mass/Vol] 14.9 g/dL Normal 13.0-16.5 [facility] Comment on above: Performed By: #### L 100.0100, L3300.0940, L501.9520, L500.4050 ####[facility] [address] [place], [address] IG% 1.200 High 0.0-0.9 [facility] Comment on above: Result Comment: IG% - Immature Granulocytes (promyelocytes, myelocytes andmetamyelocytes) > 1% indicates that a LEFT SHIFT is Present. Performed By: #### L 100.0100, L3300.0940, L501.9520, L500.4050 ####[facility] [address] [place], [address] Lymphocytes/100 WBC (Bld) 16.3 % Low 19-41 [facility] Comment on above: Performed By: #### L 100.0100, L3300.0940, L501.9520, L500.4050 ####[facility] [address] [place], [address] MCH (RBC) [Entitic mass] 28.9 pg Normal 27.0-32.0 [facility] Comment on above: Performed By: #### L 100.0100, L3300.0940, L501.9520, L500.4050 ####[facility] [address] [place], [address] MCHC (RBC) [Mass/Vol] 31.1 g/dL Low 32-36 [facility] Comment on above: Performed By: #### L 100.0100, L3300.0940, L501.9520, L500.4050 ####[facility] [address] [place], [address] MCV (RBC) [Entitic vol] 93.0 fL Normal 80-94 [facility] Comment on above: Performed By: #### L 100.0100, L3300.0940, L501.9520, L500.4050 ####[facility] [address] [place], [address] Monocytes/100 WBC (Bld) 9.2 % Normal 0-10 [facility] Comment on above: Performed By: #### L 100.0100, L3300.0940, L501.9520, L500.4050 ####[facility] [address] [place], [address] Neutrophils/100 WBC (Bld) 70.9 % High 47-70 [facility] Comment on above: Performed By: #### L 100.0100, L3300.0940, L501.9520, L500.4050 ####[facility] [address] [place], [address] Nucleated RBC (Bld) [#/Vol] 0 10*3/uL Normal 0-5 [facility] Comment on above: Performed By: #### L 100.0100, L3300.0940, L501.9520, L500.4050 ####[facility] [address] [place], [address] Platelet mean volume (Bld) [Entitic vol] 11.7 fL Normal 6.2-12.0 [facility] Comment on above: Performed By: #### L 100.0100, L3300.0940, L501.9520, L500.4050 ####[facility] [address] [place], [address] Platelets (Bld) [#/Vol] 168 10*3/uL Normal 150-450 [facility] Comment on above: Performed By: #### L 100.0100, L3300.0940, L501.9520, L500.4050 ####[facility] [address] [place], [address] RBC (Bld) [#/Vol] 5.15 10*6/uL Normal 4.6-6.2 [facility] Comment on above: Performed By: #### L 100.0100, L3300.0940, L501.9520, L500.4050 ####[facility] [address] [place], [address] RDW SD 48.8 fl High 35.1-43.9 [facility] Comment on above: Performed By: #### L 100.0100, L3300.0940, L501.9520, L500.4050 ####[facility] [address] [place], [address] WBC (Bld) [#/Vol] 9.2 10*3/uL Normal 4.4-11.0 [facility] Comment on above: Performed By: #### L 100.0100, L3300.0940, L501.9520, L500.4050 ####[facility] [address] [place], [address] Comprehensive Metabolic Prof [facility] 01-07-2024 Albumin [Mass/Vol] 3.5 g/dL Normal 3.2-5.0 [facility] Comment on above: Performed By: #### L 100.0100, L3300.0940, L501.9520, L500.4050 ####[facility] [address] [place], [address] Albumin/Globulin [Mass ratio] 0.8 {ratio} Low 0.9-2.4 [facility] Comment on above: Performed By: #### L 100.0100, L3300.0940, L501.9520, L500.4050 ####[facility] [address] [place], [address] ALK P 143 U/L High 45-117 [facility] Comment on above: Performed By: #### L 100.0100, L3300.0940, L501.9520, L500.4050 ####[facility] [address] [place], [address] ALT [Catalytic activity/Vol] 50 U/L Normal 16-61 [facility] Comment on above: Performed By: #### L 100.0100, L3300.0940, L501.9520, L500.4050 ####[facility] [address] [place], [address] AST [Catalytic activity/Vol] 32 U/L Normal 15-37 [facility] Comment on above: Performed By: #### L 100.0100, L3300.0940, L501.9520, L500.4050 ####[facility] [address] [place], [address] Bilirubin [Mass/Vol] 1.00 mg/dL Normal 0.20-1.00 [facility] Comment on above: Result Comment: For patients on eltrombopag therapy, use of Dimension Vanduser TBIL is not recommended. Performed By: #### L 100.0100, L3300.0940, L501.9520, L500.4050 ####[facility] [address] [place], [address] BUN/CRE 16.9 RATIO Normal 10-20 [facility] Comment on above: Performed By: #### L 100.0100, L3300.0940, L501.9520, L500.4050 ####[facility] [address] [place], [address] CA,Total 9.5 mg/dL Normal 8.5-10.1 [facility] Comment on above: Performed By: #### L 100.0100, L3300.0940, L501.9520, L500.4050 ####[facility] [address] [place], [address] Chloride [Moles/Vol] 106 mmol/L Normal 98-107 [facility] Comment on above: Performed By: #### L 100.0100, L3300.0940, L501.9520, L500.4050 ####[facility] [address] [place], [address] CO2 [Moles/Vol] 26.0 mmol/L Normal 21.0-32.0 [facility] Comment on above: Performed By: #### L 100.0100, L3300.0940, L501.9520, L500.4050 ####[facility] [address] [place], [address] Creatinine [Mass/Vol] 1.24 mg/dL Normal 0.70-1.30 [facility] Comment on above: Result Comment: The validity of the calculated GFR GFRAA in patients over70 years has not been determined. Clinical correlation isessential. Performed By: #### L 100.0100, L3300.0940, L501.9520, L500.4050 ####[facility] [address] [place], [address] EST GFR - AA 74 mL/min Normal >60 [facility] Comment on above: Result Comment: Afri can [place] GFR Calc Performed By: #### L 100.0100, L3300.0940, L501.9520, L500.4050 ####[facility] [address] [place], [address] GAP 5 Normal 5-15 [facility] Comment on above: Performed By: #### L 100.0100, L3300.0940, L501.9520, L500.4050 ####[facility] [address] [place], [address] GFR/1.73 sq M.predicted among non-blacks MDRD (S/P/Bld) [Vol rate/Area] 61 mL/min/{1.73_m2} Normal >60 [facility] Comment on above: Result Comment: Non- GFR Calc Performed By: #### L 100.0100, L3300.0940, L501.9520, L500.4050 ####[facility] [address] [place], [address] Globulin (S) [Mass/Vol] 4.3 g/dL High 2.2-4.2 [facility] Comment on above: Performed By: #### L 100.0100, L3300.0940, L501.9520, L500.4050 ####[facility] [address] [place], [address] Glucose [Mass/Vol] 239 mg/dL High 74-106 [facility] Comment on above: Result Comment: Gluc ose result greater than or equal to 200 mg/dLsuggests DIABETES MELLITUS per A.D.A. criteria. Performed By: #### L 100.0100, L3300.0940, L501.9520, L500.4050 ####[facility] [address] [place], [address] Potassium [Moles/Vol] 4.1 mmol/L Normal 3.5-5.1 [facility] Comment on above: Performed By: #### L 100.0100, L3300.0940, L501.9520, L500.4050 ####[facility] [address] [place], [address] Sodium [Moles/Vol] 137 mmol/L Normal 136-145 [facility] Comment on above: Performed By: #### L 100.0100, L3300.0940, L501.9520, L500.4050 ####[facility] [address] [place], [address] T PROT 7.8 g/dL Normal 6.4-8.2 [facility] Comment on above: Performed By: #### L 100.0100, L3300.0940, L501.9520, L500.4050 ####[facility] [address] [place], [address] Urea nitrogen [Mass/Vol] 21 mg/dL High 7-18 [facility] Comment on above: Performed By: #### L 100.0100, L3300.0940, L501.9520, L500.4050 ####[facility] [address] [place], [address] Thyroid Stim Hormone (TSH)on 01-07-2024 TSH 1.290 uIU/mL Normal 0.358-3.74 0 [facility] Comment on above: Performed By: #### L 100.0100, L3300.0940, L501.9520, L500.4050 ####[facility] [address] [place], [address] Absolute lymphocyte countOrd ered By: Bulmaro Curtis on 07-04-2023 Lymphocytes Auto (Unsp spec) [#/Vol] 2.86 10*3/uL 0.83-4.51 [facility] Automated lymphocyte count a s percentage of total leukocytesOrdered By: Bulmaro Curtis on 07-04-2023 Lymphocytes/100 WBC Auto (Unsp spec) 26.0 % 19-41 [facility] Basophil percentageOrdered B y: Bulmaro Curtis on 07-04-2023 Basophils/100 WBC (Bld) 1.0 % 0-1 [facility] Bilirubin [Mass/Vol] 1.20 mg/dL 0.20-1.00 [facility] Comment on above: For patients on eltr ombopag therapy, use of Dimension Vanduser TBIL is not recommended. Chloride [Moles/Vol] 103 mmol/L 98-107 [facility] Eosinophils/100 WBC (Bld) 2.1 % 0-5 [facility] Glucose [Mass/Vol] 221 mg/dL 74-106 [facility] Comment on above: Glucose result great er than or equal to 200 mg/dLsuggests DIABETES MELLITUS per A.D.A. criteria. Hemoglobin (Bld) [Mass/Vol] 14.6 g/dL 13.0-16.5 [facility] Monocytes/100 WBC (Bld) 11.1 % 0-10 [facility] Neutrophils (Bld) [#/Vol] 6.4 10*3/uL 2.0-7.7 [facility] Neutrophils/100 WBC (Bld) 58.5 % 47-70 [facility] Potassium [Moles/Vol] 3.9 mmol/L 3.5-5.1 [facility] Protein [Mass/Vol] 7.5 g/dL 6.4-8.2 [facility] Sodium [Moles/Vol] 138 mmol/L 136-145 [facility] WBC (Bld) [#/Vol] 11.0 10*3/uL 4.4-11.0 [facility] Determination of erythrocyte mean corpuscular volume (MCV)Ordered By: Bulmaro Curtis on 07-04-2023 MCV (RBC) [Entitic vol] 92.9 fL 80-94 [facility] Erythrocyte distribution wid th ratioOrdered By: Bulmaro Rosales07-04-2023 Erythrocyte distribution width (RBC) [Ratio] 14.1 % 11.6-14.6 [facility] Erythrocyte distribution wid th standard deviationOrdered By: Bulmaro Rosalesok on 07-04-2023 Erythrocyte distribution width (RBC) [Entitic vol] 48.2 fL 35.1-43.9 [facility] Hematocrit Auto (Bld) [Volum e fraction]Ordered By: Bulmaro Curtis 07-04-2023 Hematocrit (Bld) [Volume fraction] 47.4 % 40-54 [facility] Immature granulocytes/100 WB C Auto (Bld)Ordered By: Bulmaro Curtis on 07-04-2023 Immature granulocytes/100 WBC (Bld) 1.300 % 0.0-0.9 [facility] Comment on above: IG% - Immature Granu locytes (promyelocytes, myelocytes and metamyelocytes) > 1% indicates that a LEFT SHIFT is Present. Laboratory - Chemistry and C hemistry - challengeOrdered By: Bulmaro Curtis on 07-04-2023 Albumin/Globulin [Mass ratio] 0.9 {ratio} 0.9-2.4 [facility] ALP [Catalytic activity/Vol] 117 U/L 45-117 [facility] ALT [Catalytic activity/Vol] 42 U/L 16-61 [facility] CO2 [Moles/Vol] 26.0 mmol/L 21.0-32.0 [facility] Globulin (S) [Mass/Vol] 3.9 g/dL 2.2-4.2 [facility] Urea nitrogen/Creatinine [Mass ratio] 19.3 mg/mg 10-20 [facility] Laboratory - Hematology and Cell countsOrdered By: Bulmaro Curtis on 07-04-2023 MCH (RBC) [Entitic mass] 28.6 pg 27.0-32.0 [facility] MCHC (RBC) [Mass/Vol] 30.8 g/dL 32-36 [facility] Nucleated RBC/100 WBC (Bld) [Ratio] 0 % 0-5 [facility] Platelet mean volume (Bld) [Entitic vol] 11.8 fL 6.2-12.0 [facility] Platelets (Bld) [#/Vol] 170 10*3/uL 150-450 [facility] No Panel InformationOrdered By: Bulmaro Curtis on 07-04-2023 Estimated GFR (MDRD) Amer 77 mL/min >60 [facility] Comment on above: GFR Calc Estimated GFR (MDRD) Non-Af Amer 64 mL/min >60 [facility] Comment on above: Non- GFR Calc Vitamin D 25-Hydroxy 34.3 ng/mL [facility] Comment on above: Vitamin D 25(OH) Sta tus Range Deficiency <20 ng/mL (50nmol/L) Insufficiency 20 - 30 ng/mL (50 - 75 nmol/L) Sufficiency 30 - 100 ng/mL (75 - 250 nmol/L) Toxicity >100 ng/mL (>250 nmol/L) RBC Auto (Bld) [#/Vol]Ordere d By: Bulmaro Curtis on 07-04-2023 RBC (Bld) [#/Vol] 5.10 10*6/uL 4.6-6.2 [facility] Serum or plasma calcium blaine urement (mass/volume)Ordered By: Bulmaro Curtis on 07-04-2023 Calcium [Mass/Vol] 8.7 mg/dL 8.5-10.1 [facility] Serum or plasma creatinine m easurement (mass/volume)Ordered By: Bulmaro Curtis on 07-04-2023 Creatinine [Mass/Vol] 1.19 mg/dL 0.70-1.30 [facility] Comment on above: The validity of the calculated GFR & GFRAA in patients over 70 years has not been determined. Clinical correlation is essential. Serum or plasma thyroid stim ulating hormone (TSH) measurement (units/volume)Ordered By: Bulmaro Curtis on 07-04-2023 TSH Qn 1.98 uIU/mL 0.358-3.74 [facility] Serum or plasma urea nitroge n measurement (mass/volume)Ordered By: Bulmaro Curtis on 07-04-2023 Urea nitrogen [Mass/Vol] 23 mg/dL 7-18 [facility] Thin prep Papanicolaou smear with manual screeningOrdered By: Bulmaro Curtis on 07-04-2023 Thin prep Papanicolaou smear with manual screening 3.6 g/dL 3.2-5.0 [facility] Thin prep Papanicolaou smear with manual screening 22 U/L 15-37 [facility] Thin prep Papanicolaou smear with manual screening 9 5-15 [facility] Absolute lymphocyte countOrd ered By: Bulmaro Curtis on 01-03-2023 Lymphocytes Auto (Unsp spec) [#/Vol] 2.76 10*3/uL 0.83-4.51 [facility] Basophil percentageOrdered B y: Bulmaro Curtis on 01-03-2023 Basophils/100 WBC (Bld) 0.7 % 0-1 [facility] Bilirubin [Mass/Vol] 1.80 mg/dL 0.20-1.00 [facility] Comment on above: For patients on eltr ombopag therapy, use of Dimension Vanduser TBIL is not recommended. Chloride [Moles/Vol] 103 mmol/L 98-107 [facility] Eosinophils/100 WBC (Bld) 2.1 % 0-5 [facility] Glucose [Mass/Vol] 158 mg/dL 74-106 [facility] Comment on above: Fasting Glucose resu lt greater than or equal to 126 mg/dL suggests DIABETES MELLITUS per A.D.A. criteria. Neutrophils (Bld) [#/Vol] 6.3 10*3/uL 2.0-7.7 [facility] Neutrophils/100 WBC (Bld) 59.1 % 47-70 [facility] Potassium [Moles/Vol] 3.9 mmol/L 3.5-5.1 [facility] Protein [Mass/Vol] 8.2 g/dL 6.4-8.2 [facility] Sodium [Moles/Vol] 137 mmol/L 136-145 [facility] WBC (Bld) [#/Vol] 10.8 10*3/uL 4.4-11.0 [facility] Blood erythrocytes count (nu mber/volume)Ordered By: Bulmaro Curtis on 01-03-2023 RBC (Bld) [#/Vol] 5.32 10*6/uL 4.6-6.2 [facility] Blood hemoglobin measurement (mass/volume)Ordered By: Bulmaro Curtis on 01-03-2023 Hemoglobin (Bld) [Mass/Vol] 15.5 g/dL 13.0-16.5 [facility] Blood lymphocytes/100 leukoc ytesOrdered By: Bulmaro Curtis on 01-03-2023 Lymphocytes/100 WBC (Bld) 25.7 % 19-41 [facility] Blood monocytes/100 leukocyt esOrdered By: Bulmaro Curtis on 01-03-2023 Monocytes/100 WBC (Bld) 11.3 % 0-10 [facility] Blood platelet mean volumeOr dered By: Bulmaro Curtis on 01-03-2023 Platelet mean volume (Bld) [Entitic vol] 12.2 fL 6.2-12.0 [facility] Determination of erythrocyte mean corpuscular volume (MCV)Ordered By: Bulmaro Curtis on 01-03-2023 MCV (RBC) [Entitic vol] 91.2 fL 80-94 [facility] Hematocrit Auto (Bld) [Volum e fraction][facility] Hematocrit (Bld) [Volume fraction] 48.5 % 40-54 [facility] Laboratory - Chemistry and C hemistry - challengeOrdered By: [facility] 01-03-[facility]23 ALP [Catalytic activity/Vol] 117 U/L 45-117 [facility] ALT [Catalytic activity/Vol] 50 U/L 16-61 [facility] CO2 [Moles/Vol] 25.0 mmol/L 21.0-32.0 [facility] Globulin (S) [Mass/Vol] 4.4 g/dL 2.2-4.2 [facility] Urea nitrogen/Creatinine [Mass ratio] 16.5 mg/mg 10-20 [facility] Laboratory - Hematology and Cell countsOrdered By: [facility] 01-03-2023 Erythrocyte distribution width (RBC) [Entitic vol] 47.6 fL 35.1-43.9 [facility] Erythrocyte distribution width (RBC) [Ratio] 14.3 % 11.6-14.6 [facility] Immature granulocytes/100 WBC (Bld) 1.100 % 0.0-0.9 [facility] Comment on above: IG% - Immature Granu locytes (promyelocytes, myelocytes and metamyelocytes) > 1% indicates that a LEFT SHIFT is Present. MCH (RBC) [Entitic mass] 29.1 pg 27.0-32.0 [facility] Nucleated RBC/100 WBC (Bld) [Ratio] 0 % 0-5 [facility] MCHC Auto (RBC) [Mass/Vol]Or dered By: [facility] on 01-03-2023 MCHC (RBC) [Mass/Vol] 32.0 g/dL 32-36 [facility] No Panel InformationOrdered By: Bulmaro Curtis on 01-03-2023 Estimated GFR (MDRD) Amer 72 mL/min >60 [facility] Comment on above: GFR Calc Estimated GFR (MDRD) Non-Af Amer 59 mL/min >60 [facility] Comment on above: Non- GFR Calc Thyroid Stimulating Hormone (TSH) 2.17 uIU/mL 0.358-3.74 [facility] Vitamin D 25-Hydroxy 40.6 ng/mL [facility] Comment on above: Vitamin D 25(OH) Sta tus Range Deficiency <20 ng/mL (50nmol/L) Insufficiency 20 - 30 ng/mL (50 - 75 nmol/L) Sufficiency 30 - 100 ng/mL (75 - 250 nmol/L) Toxicity >100 ng/mL (>250 nmol/L) Platelets bldOrdered By: Bulmaro Curtis on 01-03-2023 Platelets (Bld) [#/Vol] 185 10*3/uL 150-450 [facility] Serum or plasma albumin blaine urement (mass/volume)Ordered By: Bulmaro Curtis on 01-03-2023 Albumin [Mass/Vol] 3.8 g/dL 3.2-5.0 [facility] Serum or plasma albumin/glob ulin mass ratioOrdered By: Bulmaro Curtis 01-03-2023 Albumin/Globulin [Mass ratio] 0.9 {ratio} 0.9-2.4 [facility] Serum or plasma calcium blaine urement (mass/volume)Ordered By: Bulmaro Curtis 01-03-2023 Calcium [Mass/Vol] 9.4 mg/dL 8.5-10.1 [facility] Serum or plasma creatinine m easurement (mass/volume)Ordered By: Bulmaro Curtis 01-03-2023 Creatinine [Mass/Vol] 1.27 mg/dL 0.70-1.30 [facility] Comment on above: The validity of the calculated GFR & GFRAA in patients over 70 years has not been determined. Clinical correlation is essential. Serum or plasma urea nitroge n measurement (mass/volume)Ordered By: Bulmaro Curtis on 01-03-2023 Urea nitrogen [Mass/Vol] 21 mg/dL 7-18 [facility] Thin prep Papanicolaou smear with manual screeningOrdered By: Bulmaro Curtis 01-03-2023 Thin prep Papanicolaou smear with manual screening 21 U/L 15-37 [facility] Thin prep Papanicolaou smear with manual screening 9 5-15 [facility] Whole blood hemoglobin A1c/t otal hemoglobin ratio (mass fraction)Ordered By: Bulmaro Curtis on 01-03-2023 HbA1c (Bld) [Mass fraction] 6.8 % 3.8-5.6 [facility] Comment on above: Normal < 5.7 % Predi abetic 5.7 - 6.4 % Diabetic >or= 6.5 % Please note range changes. Absolute lymphocyte countOrd ered By: Kamari Bah on 12-17-2022 Lymphocytes Auto (Unsp spec) [#/Vol] 1.60 10*3/uL 0.83-4.51 [facility] Basophil percentageOrdered B y: Kamari Bah on 12-17-2022 Basophils/100 WBC (Bld) 0.8 % 0-1 [facility] Eosinophils/100 WBC (Bld) 2.4 % 0-5 [facility] Neutrophils (Bld) [#/Vol] 5.2 10*3/uL 2.0-7.7 [facility] Neutrophils/100 WBC (Bld) 65.4 % 47-70 [facility] WBC (Bld) [#/Vol] 7.9 10*3/uL 4.4-11.0 [facility] Bilirubin [Mass/Vol] 1.60 mg/dL 0.20-1.00 [facility] Comment on above: For patients on eltr ombopag therapy, use of Dimension Vanduser TBIL is not recommended. Chloride [Moles/Vol] 111 mmol/L 98-107 [facility] Glucose [Mass/Vol] 137 mg/dL 74-106 [facility] Comment on above: Fasting Glucose resu lt greater than or equal to 126 mg/dL suggests DIABETES MELLITUS per A.D.A. criteria. Potassium [Moles/Vol] 4.6 mmol/L 3.5-5.1 [facility] Protein [Mass/Vol] 7.5 g/dL 6.4-8.2 [facility] Sodium [Moles/Vol] 139 mmol/L 136-145 [facility] Blood erythrocytes count (nu mber/volume)Ordered By: Kamari Bah on 12-17-2022 RBC (Bld) [#/Vol] 4.62 10*6/uL 4.6-6.2 [facility] Blood hemoglobin measurement (mass/volume)Ordered By: Kamari Bah on 12-17-2022 Hemoglobin (Bld) [Mass/Vol] 13.6 g/dL 13.0-16.5 [facility] Blood lymphocytes/100 leukoc ytesOrdered By: Kaamri Bah on 12-17-2022 Lymphocytes/100 WBC (Bld) 20.2 % 19-41 [facility] Blood monocytes/100 leukocyt esOrdered By: Kamari Bah on 12-17-2022 Monocytes/100 WBC (Bld) 10.4 % 0-10 [facility] Blood platelet mean volumeOr dered By: Kamari Bah on 12-17-2022 Platelet mean volume (Bld) [Entitic vol] 11.7 fL 6.2-12.0 [facility] Determination of erythrocyte mean corpuscular volume (MCV)Ordered By: Kamari Bah on 12-17-2022 MCV (RBC) [Entitic vol] 94.4 fL 80-94 [facility] Hematocrit Auto (Bld) [Volum e fraction]Ordered By: Kamari Bah on 12-17-2022 Hematocrit (Bld) [Volume fraction] 43.6 % 40-54 [facility] Laboratory - Chemistry and C hemistry - challengeOrdered By: Kamari Bah on 12-17-2022 ALP [Catalytic activity/Vol] 99 U/L 45-117 [facility] ALT [Catalytic activity/Vol] 34 U/L 16-61 [facility] CO2 [Moles/Vol] 22.0 mmol/L 21.0-32.0 [facility] Globulin (S) [Mass/Vol] 4.0 g/dL 2.2-4.2 [facility] Urea nitrogen/Creatinine [Mass ratio] 13.1 mg/mg 10-20 [facility] Laboratory - Hematology and Cell countsOrdered By: Kamari Bah on 12-17-2022 Erythrocyte distribution width (RBC) [Entitic vol] 47.9 fL 35.1-43.9 [facility] Erythrocyte distribution width (RBC) [Ratio] 13.9 % 11.6-14.6 [facility] Immature granulocytes/100 WBC (Bld) 0.800 % 0.0-0.9 [facility] Comment on above: IG% - Immature Granu locytes (promyelocytes, myelocytes and metamyelocytes) > 1% indicates that a LEFT SHIFT is Present. MCH (RBC) [Entitic mass] 29.4 pg 27.0-32.0 [facility] Nucleated RBC/100 WBC (Bld) [Ratio] 0 % 0-5 [facility] MCHC Auto (RBC) [Mass/Vol]Or dered By: Kamari Bah on 12-17-2022 MCHC (RBC) [Mass/Vol] 31.2 g/dL 32-36 [facility] No Panel InformationOrdered By: Kamari Bah on 12-17-2022 Estimated Creatinine Clearance Calc 79.57 ml/min [facility] Estimated GFR (MDRD) Amer 95 mL/min >60 [facility] Comment on above: GFR Calc Estimated GFR (MDRD) Non-Af Amer 79 mL/min >60 [facility] Comment on above: Non- GFR Calc Platelets bldOrdered By: Roseann Bah on 12-17-2022 Platelets (Bld) [#/Vol] 127 10*3/uL 150-450 [facility] Serum or plasma albumin blaine urement (mass/volume)Ordered By: Kamari Bah on 12-17-2022 Albumin [Mass/Vol] 3.5 g/dL 3.2-5.0 [facility] Serum or plasma albumin/glob ulin mass ratioOrdered By: Kamari Bah on 12-17-2022 Albumin/Globulin [Mass ratio] 0.9 {ratio} 0.9-2.4 [facility] Serum or plasma calcium blaine urement (mass/volume)Ordered By: Kamari Bah on 12-17-2022 Calcium [Mass/Vol] 8.8 mg/dL 8.5-10.1 [facility] Serum or plasma creatinine m easurement (mass/volume)Ordered By: Kamari Bah on 12-17-2022 Creatinine [Mass/Vol] 0.99 mg/dL 0.70-1.30 [facility] Comment on above: The validity of the calculated GFR & GFRAA in patients over 70 years has not been determined. Clinical correlation is essential. Serum or plasma urea nitroge n measurement (mass/volume)Ordered By: Kamari Bah on 12-17-2022 Urea nitrogen [Mass/Vol] 13 mg/dL 7-18 [facility] Thin prep Papanicolaou smear with manual screeningOrdered By: Kamari Bah on 12-17-2022 Thin prep Papanicolaou smear with manual screening 32 U/L 15-37 [facility] Thin prep Papanicolaou smear with manual screening 6 5-15 [facility] Absolute lymphocyte countOrd ered By: Dr. Curtis on 06-28-2022 Lymphocytes Auto (Unsp spec) [#/Vol] 1.40 10*3/uL 0.83-4.51 [facility] Basophil percentageOrdered B y: Dr. Curtis on 06-28-2022 Basophils/100 WBC (Bld) 0.8 % 0-1 [facility] Bilirubin [Mass/Vol] 1.20 mg/dL 0.20-1.00 [facility] Comment on above: For patients on eltr ombopag therapy, use of Dimension Vanduser TBIL is not recommended. Chloride [Moles/Vol] 106 mmol/L 98-107 [facility] Eosinophils/100 WBC (Bld) 1.8 % 0-5 [facility] Glucose [Mass/Vol] 146 mg/dL 74-106 [facility] Comment on above: Fasting Glucose resu lt greater than or equal to 126 mg/dL suggests DIABETES MELLITUS per A.D.A. criteria. Neutrophils (Bld) [#/Vol] 5.5 10*3/uL 2.0-7.7 [facility] Neutrophils/100 WBC (Bld) 69.8 % 47-70 [facility] Potassium [Moles/Vol] 4.0 mmol/L 3.5-5.1 [facility] Protein [Mass/Vol] 7.5 g/dL 6.4-8.2 [facility] Sodium [Moles/Vol] 138 mmol/L 136-145 [facility] WBC (Bld) [#/Vol] 7.8 10*3/uL 4.4-11.0 [facility] Blood erythrocytes count (nu mber/volume)Ordered By: Dr. Curtis on 06-28-2022 RBC (Bld) [#/Vol] 5.00 10*6/uL 4.6-6.2 [facility] Blood hemoglobin measurement (mass/volume)Ordered By: Dr. Curtis on 06-28-2022 Hemoglobin (Bld) [Mass/Vol] 14.5 g/dL 13.0-16.5 [facility] Blood lymphocytes/100 leukoc ytesOrdered By: Dr. Curtis on 06-28-2022 Lymphocytes/100 WBC (Bld) 17.9 % 19-41 [facility] Blood monocytes/100 leukocyt esOrdered By: Dr. Curtis on 06-28-2022 Monocytes/100 WBC (Bld) 9.1 % 0-10 [facility] Blood platelet mean volumeOr dered By: Dr. Curtis on 06-28-2022 Platelet mean volume (Bld) [Entitic vol] 11.6 fL 6.2-12.0 [facility] Determination of erythrocyte mean corpuscular volume (MCV)Ordered By: Dr. Curtis on 06-28-2022 MCV (RBC) [Entitic vol] 90.8 fL 80-94 [facility] Hematocrit Auto (Bld) [Volum e fraction]Ordered By: Dr. Curtis on 06-28-2022 Hematocrit (Bld) [Volume fraction] 45.4 % 40-54 [facility] Laboratory - Chemistry and C hemistry - challengeOrdered By: Dr. Curtis on 06-28-2022 ALP [Catalytic activity/Vol] 93 U/L 45-117 [facility] ALT [Catalytic activity/Vol] 41 U/L 16-61 [facility] CO2 [Moles/Vol] 27.0 mmol/L 21.0-32.0 [facility] Globulin (S) [Mass/Vol] 3.9 g/dL 2.2-4.2 [facility] Urea nitrogen/Creatinine [Mass ratio] 15.7 mg/mg 10-20 [facility] Laboratory - Hematology and Cell countsOrdered By: Dr. Curtis on 06-28-2022 Erythrocyte distribution width (RBC) [Entitic vol] 46.7 fL 35.1-43.9 [facility] Erythrocyte distribution width (RBC) [Ratio] 14.0 % 11.6-14.6 [facility] Immature granulocytes/100 WBC (Bld) 0.600 % 0.0-0.9 [facility] Comment on above: IG% - Immature Granu locytes (promyelocytes, myelocytes and metamyelocytes) > 1% indicates that a LEFT SHIFT is Present. MCH (RBC) [Entitic mass] 29.0 pg 27.0-32.0 [facility] Nucleated RBC/100 WBC (Bld) [Ratio] 0 % 0-5 [facility] MCHC Auto (RBC) [Mass/Vol]Or dered By: Dr. Curtis on 06-28-2022 MCHC (RBC) [Mass/Vol] 31.9 g/dL 32-36 [facility] No Panel InformationOrdered By: Dr. Curtis on 06-28-2022 Estimated GFR (MDRD) Amer 93 mL/min >60 [facility] Comment on above: GFR Calc Estimated GFR (MDRD) Non-Af Amer 77 mL/min >60 [facility] Comment on above: Non- GFR Calc Thyroid Stimulating Hormone (TSH) 0.73 uIU/mL 0.358-3.74 [facility] Vitamin D 25-Hydroxy 42.9 ng/mL [facility] Comment on above: Vitamin D 25(OH) Sta tus Range Deficiency <20 ng/mL (50nmol/L) Insufficiency 20 - 30 ng/mL (50 - 75 nmol/L) Sufficiency 30 - 100 ng/mL (75 - 250 nmol/L) Toxicity >100 ng/mL (>250 nmol/L) Platelets bldOrdered By: Dr. Curtis on 06-28-2022 Platelets (Bld) [#/Vol] 176 10*3/uL 150-450 [facility] Serum or plasma albumin blaine urement (mass/volume)Ordered By: Dr. Curtis on 06-28-2022 Albumin [Mass/Vol] 3.6 g/dL 3.2-5.0 [facility] Serum or plasma albumin/glob ulin mass ratioOrdered By: Dr. Curtis on 06-28-2022 Albumin/Globulin [Mass ratio] 0.9 {ratio} 0.9-2.4 [facility] Serum or plasma calcium blaine urement (mass/volume)Ordered By: Dr. Curtis on 06-28-2022 Calcium [Mass/Vol] 9.3 mg/dL 8.5-10.1 [facility] Serum or plasma creatinine m easurement (mass/volume)Ordered By: Dr. Curtis on 06-28-2022 Creatinine [Mass/Vol] 1.02 mg/dL 0.70-1.30 [facility] Comment on above: The validity of the calculated GFR & GFRAA in patients over 70 years has not been determined. Clinical correlation is essential. Serum or plasma urea nitroge n measurement (mass/volume)Ordered By: Dr. Cutris on 06-28-2022 Urea nitrogen [Mass/Vol] 16 mg/dL 7-18 [facility] Thin prep Papanicolaou smear with manual screeningOrdered By: Dr. Curtis on 06-28-2022 Thin prep Papanicolaou smear with manual screening 23 U/L 15-37 [facility] Thin prep Papanicolaou smear with manual screening 5 5-15 [facility] INR in Blood by Coagulation assayOrdered By: Dr. Carolina on 05-15-2022 INR Coag (Bld) [Relative time] 1.0 {INR} [facility] Laboratory - CoagulationOrde red By: Dr. Carolina on 05-15-2022 aPTT Coag (Bld) [Time] 27.6 s 24.1-36.2 [facility] PT Coag (PPP) [Time] 13.2 s 11.7-14.9 [facility] Platelets bldOrdered By: Dr. Carolina on 05-15-2022 Platelets (Bld) [#/Vol] 184 10*3/uL 150-450 [facility] Absolute lymphocyte countOrd ered By: Dr. Curtis on 03-29-2022 Lymphocytes Auto (Unsp spec) [#/Vol] 3.00 10*3/uL 0.83-4.51 [facility] Basophil percentageOrdered B y: Dr. Curtis on 03-29-2022 Basophils/100 WBC (Bld) 0.7 % 0-1 [facility] Bilirubin [Mass/Vol] 1.00 mg/dL 0.20-1.00 [facility] Comment on above: For patients on eltr ombopag therapy, use of Dimension Vanduser TBIL is not recommended. Chloride [Moles/Vol] 110 mmol/L 98-107 [facility] Eosinophils/100 WBC (Bld) 2.2 % 0-5 [facility] Glucose [Mass/Vol] 147 mg/dL 74-106 [facility] Comment on above: Fasting Glucose resu lt greater than or equal to 126 mg/dL suggests DIABETES MELLITUS per A.D.A. criteria. Neutrophils (Bld) [#/Vol] 6.5 10*3/uL 2.0-7.7 [facility] Neutrophils/100 WBC (Bld) 57.3 % 47-70 [facility] Potassium [Moles/Vol] 4.2 mmol/L 3.5-5.1 [facility] Protein [Mass/Vol] 7.7 g/dL 6.4-8.2 [facility] Sodium [Moles/Vol] 143 mmol/L 136-145 [facility] WBC (Bld) [#/Vol] 11.3 10*3/uL 4.4-11.0 [facility] Blood erythrocytes count (nu mber/volume)Ordered By: Dr. Curtis on 03-29-2022 RBC (Bld) [#/Vol] 5.16 10*6/uL 4.6-6.2 [facility] Blood hemoglobin measurement (mass/volume)Ordered By: Dr. Curtis on 03-29-2022 Hemoglobin (Bld) [Mass/Vol] 15.2 g/dL 13.0-16.5 [facility] Blood lymphocytes/100 leukoc ytesOrdered By: Dr. Curtis on 03-29-2022 Lymphocytes/100 WBC (Bld) 26.7 % 19-41 [facility] Blood monocytes/100 leukocyt esOrdered By: Dr. Curtis on 03-29-2022 Monocytes/100 WBC (Bld) 12.2 % 0-10 [facility] Blood platelet mean volumeOr dered By: Dr. Curtis on 03-29-2022 Platelet mean volume (Bld) [Entitic vol] 12.3 fL 6.2-12.0 [facility] Determination of erythrocyte mean corpuscular volume (MCV)Ordered By: Dr. Curtis on 03-29-2022 MCV (RBC) [Entitic vol] 92.1 fL 80-94 [facility] Hematocrit Auto (Bld) [Volum e fraction]Ordered By: Dr. Curtis on 03-29-2022 Hematocrit (Bld) [Volume fraction] 47.5 % 40-54 [facility] Laboratory - Chemistry and C hemistry - challengeOrdered By: Dr. Curtis on 03-29-2022 ALP [Catalytic activity/Vol] 114 U/L 45-117 [facility] ALT [Catalytic activity/Vol] 49 U/L 16-61 [facility] CO2 [Moles/Vol] 27.0 mmol/L 21.0-32.0 [facility] Globulin (S) [Mass/Vol] 4.0 g/dL 2.2-4.2 [facility] Urea nitrogen/Creatinine [Mass ratio] 19.0 mg/mg 10-20 [facility] Laboratory - Hematology and Cell countsOrdered By: Dr. Curtis on 03-29-2022 Erythrocyte distribution width (RBC) [Entitic vol] 47.8 fL 35.1-43.9 [facility] Erythrocyte distribution width (RBC) [Ratio] 14.1 % 11.6-14.6 [facility] Immature granulocytes/100 WBC (Bld) 0.900 % 0.0-0.9 [facility] Comment on above: IG% - Immature Granu locytes (promyelocytes, myelocytes and metamyelocytes) > 1% indicates that a LEFT SHIFT is Present. MCH (RBC) [Entitic mass] 29.5 pg 27.0-32.0 [facility] Nucleated RBC/100 WBC (Bld) [Ratio] 0 % 0-5 [facility] MCHC Auto (RBC) [Mass/Vol]Or dered By: Dr. Curtis on 03-29-2022 MCHC (RBC) [Mass/Vol] 32.0 g/dL 32-36 [facility] No Panel InformationOrdered By: Dr. Curtis on 03-29-2022 Estimated GFR (MDRD) Amer 66 mL/min >60 [facility] Comment on above: GFR Calc Estimated GFR (MDRD) Non-Af Amer 55 mL/min >60 [facility] Comment on above: Non- GFR Calc Thyroid Stimulating Hormone (TSH) 1.27 uIU/mL 0.358-3.74 [facility] Vitamin D 25-Hydroxy 41.3 ng/mL [facility] Comment on above: Vitamin D 25(OH) Sta tus Range Deficiency <20 ng/mL (50nmol/L) Insufficiency 20 - 30 ng/mL (50 - 75 nmol/L) Sufficiency 30 - 100 ng/mL (75 - 250 nmol/L) Toxicity >100 ng/mL (>250 nmol/L) Platelets bldOrdered By: Dr. Curtis on 03-29-2022 Platelets (Bld) [#/Vol] 178 10*3/uL 150-450 [facility] Serum or plasma albumin blaine urement (mass/volume)Ordered By: Dr. Curtis on 03-29-2022 Albumin [Mass/Vol] 3.7 g/dL 3.2-5.0 [facility] Serum or plasma albumin/glob ulin mass ratioOrdered By: Dr. Curtis on 03-29-2022 Albumin/Globulin [Mass ratio] 0.9 {ratio} 0.9-2.4 [facility] Serum or plasma calcium blaine urement (mass/volume)Ordered By: Dr. Curtis on 03-29-2022 Calcium [Mass/Vol] 9.4 mg/dL 8.5-10.1 [facility] Serum or plasma creatinine m easurement (mass/volume)Ordered By: Dr. Curtis on 03-29-2022 Creatinine [Mass/Vol] 1.37 mg/dL 0.70-1.30 [facility] Comment on above: The validity of the calculated GFR & GFRAA in patients over 70 years has not been determined. Clinical correlation is essential. Serum or plasma urea nitroge n measurement (mass/volume)Ordered By: Dr. Curtis on 03-29-2022 Urea nitrogen [Mass/Vol] 26 mg/dL 7-18 [facility] Thin prep Papanicolaou smear with manual screeningOrdered By: Dr. Curtis on 03-29-2022 Thin prep Papanicolaou smear with manual screening 27 U/L 15-37 [facility] Thin prep Papanicolaou smear with manual screening 6 5-15 [facility] Absolute lymphocyte countOrd ered By: Dr. Curtis on 12-28-2021 Lymphocytes Auto (Unsp spec) [#/Vol] 2.73 10*3/uL 0.83-4.51 [facility] Basophil percentageOrdered B y: Dr. Curtis on 12-28-2021 Basophils/100 WBC (Bld) 0.7 % 0-1 [facility] Bilirubin [Mass/Vol] 0.80 mg/dL 0.20-1.00 [facility] Comment on above: For patients on eltr ombopag therapy, use of Dimension Vanduser TBIL is not recommended. Chloride [Moles/Vol] 106 mmol/L 98-107 [facility] Eosinophils/100 WBC (Bld) 2.4 % 0-5 [facility] Glucose [Mass/Vol] 178 mg/dL 74-106 [facility] Comment on above: Fasting Glucose resu lt greater than or equal to 126 mg/dL suggests DIABETES MELLITUS per A.D.A. criteria. Neutrophils (Bld) [#/Vol] 7.3 10*3/uL 2.0-7.7 [facility] Neutrophils/100 WBC (Bld) 61.4 % 47-70 [facility] Potassium [Moles/Vol] 4.1 mmol/L 3.5-5.1 [facility] Protein [Mass/Vol] 7.9 g/dL 6.4-8.2 [facility] Sodium [Moles/Vol] 141 mmol/L 136-145 [facility] Testosterone [Mass/Vol] 89.91 ng/dL [facility] Comment on above: CENTRAL 90% REFERENC E RANGES MALE AGE <50 197.44 - 669.58 ng/dL MALE AGE > or = 50 187.72 - 684.19 ng/dL FEMALE AGE <50 8.38 - 35.01 ng/dL FEMALE AGE > or = 50 <7.00 - 35.92 ng/dL Effective as of 10/18/20 WBC (Bld) [#/Vol] 11.9 10*3/uL 4.4-11.0 [facility] Blood erythrocytes count (nu mber/volume)Ordered By: Dr. Curtis on 12-28-2021 RBC (Bld) [#/Vol] 5.13 10*6/uL 4.6-6.2 [facility] Blood hemoglobin measurement (mass/volume)Ordered By: Dr. Curtis on 12-28-2021 Hemoglobin (Bld) [Mass/Vol] 15.0 g/dL 13.0-16.5 [facility] Blood lymphocytes/100 leukoc ytesOrdered By: Dr. Curtis on 12-28-2021 Lymphocytes/100 WBC (Bld) 23.0 % 19-41 [facility] Blood monocytes/100 leukocyt esOrdered By: Dr. Curtis on 12-28-2021 Monocytes/100 WBC (Bld) 11.5 % 0-10 [facility] Blood platelet mean volumeOr dered By: Dr. Curtis on 12-28-2021 Platelet mean volume (Bld) [Entitic vol] 12.9 fL 6.2-12.0 [facility] Determination of erythrocyte mean corpuscular volume (MCV)Ordered By: Dr. Curtis on 12-28-2021 MCV (RBC) [Entitic vol] 90.8 fL 80-94 [facility] Hematocrit Auto (Bld) [Volum e fraction]Ordered By: Dr. Curtis on 12-28-2021 Hematocrit (Bld) [Volume fraction] 46.6 % 40-54 [facility] Laboratory - Chemistry and C hemistry - challengeOrdered By: Dr. Curtis on 12-28-2021 ALP [Catalytic activity/Vol] 149 U/L 45-117 [facility] ALT [Catalytic activity/Vol] 53 U/L 16-61 [facility] CO2 [Moles/Vol] 26.0 mmol/L 21.0-32.0 [facility] Globulin (S) [Mass/Vol] 4.2 g/dL 2.2-4.2 [facility] Urea nitrogen/Creatinine [Mass ratio] 21.6 mg/mg 10-20 [facility] Laboratory - Hematology and Cell countsOrdered By: Dr. Curtis on 12-28-2021 Erythrocyte distribution width (RBC) [Entitic vol] 47.9 fL 35.1-43.9 [facility] Erythrocyte distribution width (RBC) [Ratio] 14.4 % 11.6-14.6 [facility] Immature granulocytes/100 WBC (Bld) 1.000 % 0.0-0.9 [facility] Comment on above: IG% - Immature Granu locytes (promyelocytes, myelocytes and metamyelocytes) > 1% indicates that a LEFT SHIFT is Present. MCH (RBC) [Entitic mass] 29.2 pg 27.0-32.0 [facility] Nucleated RBC/100 WBC (Bld) [Ratio] 0 % 0-5 [facility] MCHC Auto (RBC) [Mass/Vol]Or dered By: Dr. Curtis on 12-28-2021 MCHC (RBC) [Mass/Vol] 32.2 g/dL 32-36 [facility] No Panel InformationOrdered By: Dr. Curtis on 12-28-2021 Estimated GFR (MDRD) Amer 68 mL/min >60 [facility] Comment on above: GFR Calc Estimated GFR (MDRD) Non-Af Amer 56 mL/min >60 [facility] Comment on above: Non- GFR Calc Prostate Specific Antigen Screen 0.34 ng/mL 0.00-4.00 [facility] Comment on above: This test was perfor med using the TPSA assay method for the[employer] chemistry system. Values obtained with differentassay methods cannot be used interchangably.When changing PSA assays in the course of monitoring apatient, additional sequential testing should be carriedout to confirm baseline values. Thyroid Stimulating Hormone (TSH) 1.57 uIU/mL 0.358-3.74 [facility] Vitamin D 25-Hydroxy 43.2 ng/mL [facility] Comment on above: Vitamin D 25(OH) Sta tus Range Deficiency <20 ng/mL (50nmol/L) Insufficiency 20 - 30 ng/mL (50 - 75 nmol/L) Sufficiency 30 - 100 ng/mL (75 - 250 nmol/L) Toxicity >100 ng/mL (>250 nmol/L) Platelets bldOrdered By: Dr. Curtis on 12-28-2021 Platelets (Bld) [#/Vol] 185 10*3/uL 150-450 [facility] Serum or plasma albumin blaine urement (mass/volume)Ordered By: Dr. Curtis on 12-28-2021 Albumin [Mass/Vol] 3.7 g/dL 3.2-5.0 [facility] Serum or plasma albumin/glob ulin mass ratioOrdered By: Dr. Curtis on 12-28-2021 Albumin/Globulin [Mass ratio] 0.9 {ratio} 0.9-2.4 [facility] Serum or plasma calcium blaine urement (mass/volume)Ordered By: Dr. Curtis on 12-28-2021 Calcium [Mass/Vol] 9.6 mg/dL 8.5-10.1 [facility] Serum or plasma creatinine m easurement (mass/volume)Ordered By: Dr. Curtis on 12-28-2021 Creatinine [Mass/Vol] 1.34 mg/dL 0.70-1.30 [facility] Comment on above: The validity of the calculated GFR & GFRAA in patients over 70 years has not been determined. Clinical correlation is essential. Serum or plasma urea nitroge n measurement (mass/volume)Ordered By: Dr. Curtis on 12-28-2021 Urea nitrogen [Mass/Vol] 29 mg/dL 7-18 [facility] Thin prep Papanicolaou smear with manual screeningOrdered By: Dr. Curtis on 12-28-2021 Thin prep Papanicolaou smear with manual screening 21 U/L 15-37 [facility] Thin prep Papanicolaou smear with manual screening 9 5-15 [facility] Basophil percentageon 2021 Creatinine [Mass/Vol] 1.1 mg/dL 0.70-1.30 [facility] Work Phone: No Panel Informationon 10-06 Bedside Estimated GFR (eGFR) > 60.0000 mL/min >60 [facility] Work Phone: Absolute lymphocyte counton 06-22-2021 Lymphocytes Auto (Unsp spec) [#/Vol] 2.09 10*3/uL 0.83-4.51 [facility] Work Phone: Basophil percentageon 2021 Basophils/100 WBC (Bld) 0.6 % 0-1 [facility] Work Phone: Bilirubin [Mass/Vol] 1.10 mg/dL 0.20-1.00 [facility] Work Phone: Comment on above: For patients on eltr ombopag therapy, use of Dimension Vanduser TBIL is not recommended. Chloride [Moles/Vol] 103 mmol/L 98-107 [facility] Work Phone: Eosinophils/100 WBC (Bld) 2.1 % 0-5 [facility] Work Phone: Glucose [Mass/Vol] 165 mg/dL 74-106 [facility] Work Phone: Comment on above: Fasting Glucose resu lt greater than or equal to 126 mg/dL suggests DIABETES MELLITUS per A.D.A. criteria. Neutrophils (Bld) [#/Vol] 6.6 10*3/uL 2.0-7.7 [facility] Work Phone: Neutrophils/100 WBC (Bld) 64.5 % 47-70 [facility] Work Phone: Potassium [Moles/Vol] 3.5 mmol/L 3.5-5.1 [facility] Work Phone: Protein [Mass/Vol] 7.8 g/dL 6.4-8.2 [facility] Work Phone: Sodium [Moles/Vol] 137 mmol/L 136-145 [facility] Work Phone: Testosterone [Mass/Vol] 95.80 ng/dL [facility] Work Phone: Comment on above: CENTRAL 90% REFERENC E RANGES MALE AGE <50 197.44 - 669.58 ng/dL MALE AGE > or = 50 187.72 - 684.19 ng/dL FEMALE AGE <50 8.38 - 35.01 ng/dL FEMALE AGE > or = 50 <7.00 - 35.92 ng/dL Effective as of 10/18/20 WBC (Bld) [#/Vol] 10.2 10*3/uL 4.4-11.0 [facility] Work Phone: Blood erythrocytes count (nu mber/volume)on 06-22-2021 RBC (Bld) [#/Vol] 5.50 10*6/uL 4.6-6.2 [facility] Work Phone: Blood hemoglobin measurement (mass/volume)on 06-22-2021 Hemoglobin (Bld) [Mass/Vol] 15.9 g/dL 13.0-16.5 [facility] Work Phone: Blood lymphocytes/100 leukoc yteson 06-22-2021 Lymphocytes/100 WBC (Bld) 20.6 % 19-41 [facility] Work Phone: [phone] Blood monocytes/100 leukocyt eson 06-22-2021 Monocytes/100 WBC (Bld) 11.3 % 0-10 [facility] Work Phone: [phone] Blood platelet mean volumeon 06-22-2021 Platelet mean volume (Bld) [Entitic vol] 11.9 fL 6.2-12.0 [facility] Work Phone: [phone] Determination of erythrocyte mean corpuscular volume (MCV)on 06-22-2021 MCV (RBC) [Entitic vol] 88.4 fL 80-94 [facility] Work Phone: [phone] Hematocrit Auto (Bld) [Volum e fraction]on 06-22-2021 Hematocrit (Bld) [Volume fraction] 48.6 % 40-54 [facility] Work Phone: [phone] Laboratory - Chemistry and C hemistry - challengeon 06-22-2021 ALP [Catalytic activity/Vol] 104 U/L 45-117 [facility] Work Phone: [phone] ALT [Catalytic activity/Vol] 44 U/L 16-61 [facility] Work Phone: [phone] CO2 [Moles/Vol] 28.0 mmol/L 21.0-32.0 [facility] Work Phone: [phone] Globulin (S) [Mass/Vol] 3.9 g/dL 2.2-4.2 [facility] Work Phone: [phone] Urea nitrogen/Creatinine [Mass ratio] 24.3 mg/mg 10-20 [facility] Work Phone: [phone] Laboratory - Hematology and Cell countson 06-22-2021 Erythrocyte distribution width (RBC) [Entitic vol] 44.3 fL 35.1-43.9 [facility] Work Phone: [phone] Erythrocyte distribution width (RBC) [Ratio] 13.6 % 11.6-14.6 [facility] Work Phone: [phone] Immature granulocytes/100 WBC (Bld) 0.900 % 0.0-0.9 [facility] Work Phone: [phone] Comment on above: IG% - Immature Granu locytes (promyelocytes, myelocytes and metamyelocytes) > 1% indicates that a LEFT SHIFT is Present. MCH (RBC) [Entitic mass] 28.9 pg 27.0-32.0 [facility] Work Phone: [phone] Nucleated RBC/100 WBC (Bld) [Ratio] 0 % 0-5 [facility] Work Phone: [phone] MCHC Auto (RBC) [Mass/Vol]on 06-22-2021 MCHC (RBC) [Mass/Vol] 32.7 g/dL 32-36 [facility] Work Phone: No Panel Informationon 06-22 Estimated GFR (MDRD) Amer 81 mL/min >60 [facility] Work Phone: Comment on above: GFR Calc Estimated GFR (MDRD) Non-Af Amer 67 mL/min >60 [facility] Work Phone: Comment on above: Non- GFR Calc Thyroid Stimulating Hormone (TSH) 1.57 uIU/mL 0.358-3.74 [facility] Work Phone: Vitamin D 25-Hydroxy 48.9 ng/mL [facility] Work Phone: [phone] Comment on above: Vitamin D 25(OH) Sta tus Range Deficiency <20 ng/mL (50nmol/L) Insufficiency 20 - 30 ng/mL (50 - 75 nmol/L) Sufficiency 30 - 100 ng/mL (75 - 250 nmol/L) Toxicity >100 ng/mL (>250 nmol/L) Platelets bldon 06-22-2021 Platelets (Bld) [#/Vol] 176 10*3/uL 150-450 [facility] Work Phone: Serum or plasma albumin blaine urement (mass/volume)on 06-22-2021 Albumin [Mass/Vol] 3.9 g/dL 3.2-5.0 [facility] Work Phone: [phone] Serum or plasma albumin/glob ulin mass ratioon 06-22-2021 Albumin/Globulin [Mass ratio] 1.0 {ratio} 0.9-2.4 [facility] Work Phone: [phone] Serum or plasma calcium blaine urement (mass/volume)on 06-22-2021 Calcium [Mass/Vol] 9.1 mg/dL 8.5-10.1 [facility] Work Phone: [phone] Serum or plasma creatinine m easurement (mass/volume)on 06-22-2021 Creatinine [Mass/Vol] 1.15 mg/dL 0.70-1.30 [facility] Work Phone: Comment on above: The validity of the calculated GFR & GFRAA in patients over 70 years has not been determined. Clinical correlation is essential. Serum or plasma urea nitroge n measurement (mass/volume)on 06-22-2021 Urea nitrogen [Mass/Vol] 28 mg/dL 7-18 [facility] Work Phone: [phone] Thin prep Papanicolaou smear with manual screeningon 06-22-2021 Thin prep Papanicolaou smear with manual screening 19 U/L 15-37 [facility] Work Phone: [phone] Thin prep Papanicolaou smear with manual screening 6 5-15 [facility] Work Phone: Vital Signs Date Time Vital Sign Value Performing Clinician Facility 09-15-2024 15:48-0400 Body height 187.[address] Bulmaro Curtis MD Work Phone: [facility] 09-15-2024 15:48-0400 Body weight 113.[address] Bulmaro Curtis MD Work Phone: [facility] 09-15-2024 14:56-0400 Body mass index (BMI) [Ratio] 32.1 kg/m2 Dr. Bulmaro Curtis MD Work Phone: [facility] 09-15-2024 14:56-0400 Body temperature 96.9 [degF] Dr. Bulmaro Curtis MD Work Phone: [facility] 09-15-2024 14:56-0400 Diastolic blood pressure 84 mm[Hg] Dr. Bulmaro Curtis MD Work Phone: [phone] [place] [address] 09-15-2024 14:56-0400 Heart rate 84 /min Dr. Bulmaro Curtis MD Work Phone: [phone])227-993068 [place] [address] 09-15-2024 14:56-0400 Respiratory rate 18 /min Dr. Bulmaro Curtis MD Work Phone: [phone] [place] [address] 09-15-2024 14:56-0400 SaO2% (BldA) [Mass fraction] 97 % Dr. Bulmaro Curtis MD Work Phone: 1(528)515-084068 [place] [address] 09-15-2024 14:56-0400 Systolic blood pressure 134 mm[Hg] Dr. Bulmaro Curtis MD Work Phone: 6(085)967-172587 [address] 08-19-2024 13:16-0400 Body height 187.[address] Bulmaro Curtis MD Work Phone: [phone])129-097013 [place] [address] 08-19-2024 13:16-0400 Body mass index (BMI) [Ratio] 34.8 kg/m2 Dr. Bulmaro Curtis MD Work Phone: [phone])[phone] [place] [address] 08-19-2024 13:16-0400 Body temperature 97.3 [degF] Dr. Bulmaro Curtis MD Work Phone: 9(030)321-856768 [place] [address] 08-19-2024 13:16-0400 Body weight 123.[address] Bulmaro Curtis MD Work Phone: 7(831)613-943768 [place] [address] 08-19-2024 13:16-0400 Diastolic blood pressure 84 mm[Hg] Dr. Bulmaro Curtis MD Work Phone: [phone])908-117368 [place] [address] 08-19-2024 13:16-0400 Heart rate 67 /min Dr. Bulmaro Curtis MD Work Phone: 0(056)378-766568 [place] [address] 08-19-2024 13:16-0400 Respiratory rate 16 /min Dr. Bulmaro Curtis MD Work Phone: [phone])016-179268 [place] [address] 08-19-2024 13:16-0400 SaO2% (BldA) [Mass fraction] 95 % Dr. Bulmaro Curtis MD Work Phone: [phone])232-053668 [place] [address] 08-19-2024 13:16-0400 Systolic blood pressure 129 mm[Hg] Dr. Bulmaro Curtis MD Work Phone: 9(690)386-645213 [place] [address] 08-18-2024 12:56-0400 Body temperature 96.1 [degF] Dr. Bulmaro Curtis MD Work Phone: 1(336)950-050513 [place] [address] 08-18-2024 12:56-0400 Diastolic blood pressure 65 mm[Hg] Dr. Bulmaro Curtis MD Work Phone: 0(673)168-482013 [place] [address] 08-18-2024 12:56-0400 Heart rate 58 /min Dr. Bulmaro Curtis MD Work Phone: 1(334)068-759413 [place] [address] 08-18-2024 12:56-0400 Respiratory rate 14 /min Dr. Bulmaro Curits MD Work Phone: 7(770)499-161713 [place] [address] 08-18-2024 12:56-0400 SaO2% (BldA) [Mass fraction] 96 % Dr. Bulmaro Curtis MD Work Phone: 4(168)938-026468 [place] [address] 08-18-2024 12:56-0400 Systolic blood pressure 135 mm[Hg] Dr. Bulmaro Curtis MD Work Phone: 8(741)102-869613 [place] [address] 08-18-2024 09:55-0400 Body weight 123.[address] Bulmaro Curtis MD Work Phone: 3(879)239-412813 [place] [address] 08-18-2024 08:37-0400 Body height 187.[address] Bulmaro Curtis MD Work Phone: 9(366)256-735468 [place] [address] 08-18-2024 08:37-0400 Body mass index (BMI) [Ratio] 35 kg/m2 Dr. Bulmaro Curtis MD Work Phone: 0(374)972-492513 [place] [address] 08-18-2024 08:37-0400 Body temperature 97.1 [degF] Dr. Bulmaro Curtis MD Work Phone: 3(951)977-218413 [place] [address] 08-18-2024 08:37-0400 Body weight 123.[address] Bulmaro Curtis MD Work Phone: 1(171)794-422813 [place] [address] 08-18-2024 08:37-0400 Diastolic blood pressure 74 mm[Hg] Dr. Bulmaro Curtis MD Work Phone: 4(236)414-088813 [place] [address] 08-18-2024 08:37-0400 Heart rate 74 /min Dr. Bulmaro Curtis MD Work Phone: 5(501)920-529613 [place] [address] 08-18-2024 08:37-0400 Respiratory rate 18 /min Dr. Bulmaro Curtis MD Work Phone: 7(467)583-167013 [place] [address] 08-18-2024 08:37-0400 SaO2% (BldA) [Mass fraction] 98 % Dr. Bulmaro Curtis MD Work Phone: 3(632)772-569413 [place] [address] 08-18-2024 08:37-0400 Systolic blood pressure 130 mm[Hg] Dr. Bulmaro Curtis MD Work Phone: 1(304)770-551613 [place] [address] 08-12-2024 13:05-0400 Body height 187.[address] Bulmaro Curtis MD Work Phone: 4(101)843-648913 [place] [address] 08-12-2024 13:05-0400 Body mass index (BMI) [Ratio] 35.1 kg/m2 Dr. Bulmaro Curtis MD Work Phone: 1(895)489-268013 [place] [address] 08-12-2024 13:05-0400 Body temperature 97 [degF] Dr. Bulmaro Curtis MD Work Phone: 8(082)302-640913 [place] [address] 08-12-2024 13:05-0400 Body weight [address] Bulmaro Curtis MD Work Phone: 1(945)518-557613 [place] [address] 08-12-2024 13:05-0400 Diastolic blood pressure 85 mm[Hg] Dr. Bulmaro Curtis MD Work Phone: 1(950)031-571368 [place] [address] 08-12-2024 13:05-0400 Heart rate 90 /min Dr. Bulmaro Curtis MD Work Phone: 2(009)467-133313 [place] [address] 08-12-2024 13:05-0400 Respiratory rate 18 /min Dr. Bulmaro uCrtis MD Work Phone: 9(774)482-751413 [place] [address] 08-12-2024 13:05-0400 SaO2% (BldA) [Mass fraction] 92 % Dr. Bulmaro Curtis MD Work Phone: 5(534)949-246113 [place] [address] 08-12-2024 13:05-0400 Systolic blood pressure 130 mm[Hg] Dr. Bulmaro Curtis MD Work Phone: 9(603)259-100213 [place] [address] 08-10-2024 13:22-0400 Diastolic blood pressure 54 mm[Hg] Dr. Bulmaro Curtis MD Work Phone: 0(776)269-459913 [place] [address] 08-10-2024 13:22-0400 Heart rate 65 /min Dr. Bulmaro Curtis MD Work Phone: 3(816)743-086713 [place] [address] 08-10-2024 13:22-0400 Systolic blood pressure 114 mm[Hg] Dr. Bulmaro Curtis MD Work Phone: 5(329)799-780413 [place] [address] 08-10-2024 09:35-0400 Body weight 124.[address] Bulmaro Curtis MD Work Phone: 8(869)589-666413 [place] [address] 08-10-2024 08:46-0400 Body height 187.[address] Bulmaro uCrtis MD Work Phone: 5(325)409-435013 [place] [address] 08-10-2024 08:46-0400 Body mass index (BMI) [Ratio] 35.2 kg/m2 Dr. Bulmaro Curtis MD Work Phone: 1(027)835-749013 [place] [address] 08-10-2024 08:46-0400 Body temperature 97.2 [degF] Dr. Bulmaro Curtis MD Work Phone: 3(285)973-546513 [place] [address] 08-10-2024 08:46-0400 Body weight 124.[address] Bulmaro Curtis MD Work Phone: 5(449)952-161213 [place] [address] 08-10-2024 08:46-0400 Diastolic blood pressure 69 mm[Hg] Dr. Bulmaro Curtis MD Work Phone: 1(510)342-159113 [place] [address] 08-10-2024 08:46-0400 Heart rate 68 /min Dr. Bulmaro Curtis MD Work Phone: 1(625)210-510113 [place] [address] 08-10-2024 08:46-0400 Respiratory rate 18 /min Dr. Bulmaro Curtis MD Work Phone: 9(366)615-058913 [place] [address] 08-10-2024 08:46-0400 SaO2% (BldA) [Mass fraction] 97 % Dr. Bulmaro Curtis MD Work Phone: 6(881)778-484513 [place] [address] 08-10-2024 08:46-0400 Systolic blood pressure 112 mm[Hg] Dr. Bulmaro Curtis MD Work Phone: 9(614)309-593813 [place] [address] 08-05-2024 12:03-0400 Body height 187.[address] Bulmaro Curtis MD Work Phone: 2(960)577-554213 [place] [address] 08-05-2024 12:03-0400 Body mass index (BMI) [Ratio] 35.4 kg/m2 Dr. Bulmaro Curtis MD Work Phone: 8(384)654-492713 [place] [address] 08-05-2024 12:03-0400 Body temperature 96.6 [degF] Dr. Bulmaro Curtis MD Work Phone: 8(386)495-062513 [place] [address] 08-05-2024 12:03-0400 Body weight 125.[address] Bulmaro Curtis MD Work Phone: 3(882)894-789013 [place] [address] 08-05-2024 12:03-0400 Diastolic blood pressure 73 mm[Hg] Dr. Bulmaro Curtis MD Work Phone: 4(745)598-954613 [place] [address] 08-05-2024 12:03-0400 Heart rate 82 /min Dr. Bulmaro Curtis MD Work Phone: 0(457)891-856513 [place] [address] 08-05-2024 12:03-0400 Respiratory rate 16 /min Dr. Bulmaro Curtis MD Work Phone: 7(613)100-976768 [place] [address] 08-05-2024 12:03-0400 SaO2% (BldA) [Mass fraction] 91 % Dr. Bulmaro Curtis MD Work Phone: 5(227)223-417868 [place] [address] 08-05-2024 12:03-0400 Systolic blood pressure 123 mm[Hg] Dr. Bulmaro Curtis MD Work Phone: 3(659)795-386413 [place] [address] 08-03-2024 10:01-0400 Body weight 126.[address] Bulmaro Curtis MD Work Phone: 8(319)375-349213 [place] [address] 08-03-2024 08:35-0400 Body mass index (BMI) [Ratio] 35.6 kg/m2 Dr. Bulmaro Curtis MD Work Phone: 3(098)118-569713 [place] [address] 08-03-2024 08:35-0400 Body temperature 97 [degF] Dr. Bulmaro Curtis MD Work Phone: 7(902)850-407613 [place] [address] 08-03-2024 08:35-0400 Body weight 126.[address] Bulmaro Curtis MD Work Phone: 9(267)807-580513 [place] [address] 08-03-2024 08:35-0400 Diastolic blood pressure 69 mm[Hg] Dr. Bulmaro Curtis MD Work Phone: 1(348)689-234113 [place] [address] 08-03-2024 08:35-0400 Heart rate 77 /min Dr. Bulmaro Curtis MD Work Phone: 5(085)055-667413 [place] [address] 08-03-2024 08:35-0400 Respiratory rate 18 /min Dr. Bulmaro Curtis MD Work Phone: 6(184)526-476013 [place] [address] 08-03-2024 08:35-0400 SaO2% (BldA) [Mass fraction] 97 % Dr. Bulmaro Curtis MD Work Phone: 8(528)498-516313 [place] [address] 08-03-2024 08:35-0400 Systolic blood pressure 125 mm[Hg] Dr. Bulmaro Curtis MD Work Phone: 5(634)635-296613 [place] [address] 07-31-2024 12:12-0400 Body temperature 96.5 [degF] Dr. Bulmaro Curtis MD Work Phone: 6(289)440-254713 [place] [address] 07-31-2024 12:12-0400 Diastolic blood pressure 68 mm[Hg] Dr. Bulmaro Curtis MD Work Phone: [facility] 07-31-2024 12:12-0400 Heart rate 65 /min Dr. Bulmaro Curtis MD Work Phone: [facility] 07-31-2024 12:12-0400 Respiratory rate 16 /min Dr. Bulmaro Curtis MD Work Phone: 7(062)619-666068 [place] [address] 07-31-2024 12:12-0400 SaO2% (BldA) [Mass fraction] 95 % Dr. Bulmaro Curtis MD Work Phone: 6(296)008-375113 [place] [address] 07-31-2024 12:12-0400 Systolic blood pressure 121 mm[Hg] Dr. Bulmaro Curtis MD Work Phone: 5(280)839-936613 [place] [address] 07-31-2024 09:52-0400 Body mass index (BMI) [Ratio] 35.4 kg/m2 Dr. Bulmaro Curtis MD Work Phone: 8(673)230-161513 [place] [address] 07-29-2024 09:23-0400 Body mass index (BMI) [Ratio] 35.6 kg/m2 Dr. Bulmaro Curtis MD Work Phone: 5(251)756-678368 [place] [address] 07-29-2024 09:23-0400 Body temperature 96.7 [degF] Dr. Bulmaro Curtis MD Work Phone: 3(992)511-869613 [place] [address] 07-29-2024 09:23-0400 Body weight 126.[address] Bulmaro Curtis MD Work Phone: 1(834)561-554813 [place] [address] 07-29-2024 09:23-0400 Diastolic blood pressure 85 mm[Hg] Dr. Bulmaro Curtis MD Work Phone: 6(501)107-608368 [place] [address] 07-29-2024 09:23-0400 Heart rate 86 /min Dr. Bulmaro Curtis MD Work Phone: 7(330)037-451368 [place] [address] 07-29-2024 09:23-0400 Respiratory rate 18 /min Dr. Bulmaro Curtis MD Work Phone: 4(735)967-006568 [place] [address] 07-29-2024 09:23-0400 SaO2% (BldA) [Mass fraction] 93 % Dr. Bulmaro Curtis MD Work Phone: [facility] 07-29-2024 09:23-0400 Systolic blood pressure 134 mm[Hg] Dr. Bulmaro Curtis MD Work Phone: 3(126)071-536668 [place] [address] 07-27-2024 08:40-0400 Body mass index (BMI) [Ratio] 36.1 kg/m2 Dr. Bulmaro Curtis MD Work Phone: 0(077)865-733668 [place] [address] 07-27-2024 08:40-0400 Body temperature 98 [degF] Dr. Bulmaro Curtis MD Work Phone: 3(150)650-356968 [place] [address] 07-27-2024 08:40-0400 Body weight 127.[address] Bulmaro Curtis MD Work Phone: 8(157)194-632313 [place] [address] 07-27-2024 08:40-0400 Diastolic blood pressure 81 mm[Hg] Dr. Bulmaro Curtis MD Work Phone: 1(223)217-180013 [place] [address] 07-27-2024 08:40-0400 Heart rate 84 /min Dr. Bulmaro Curtis MD Work Phone: 1(656)969-739913 [place] [address] 07-27-2024 08:40-0400 Respiratory rate 18 /min Dr. Bulmaro Curtis MD Work Phone: 2(646)045-926168 [place] [address] 07-27-2024 08:40-0400 SaO2% (BldA) [Mass fraction] 92 % Dr. Bulmaro Curtis MD Work Phone: 0(670)369-568468 [place] [address] 07-27-2024 08:40-0400 Systolic blood pressure 127 mm[Hg] Dr. Bulmaro Curtis MD Work Phone: 3(908)657-827787 [address] 07-22-2024 09:02-0400 Body mass index (BMI) [Ratio] 37.1 kg/m2 Dr. Bulmaro Curtis MD Work Phone: 1(774)457-818968 [place] [address] 07-22-2024 09:02-0400 Body temperature 97.1 [degF] Dr. Bulmaro Curtis MD Work Phone: 0(494)910-304387 [address] 07-22-2024 09:02-0400 Body weight 131.[address] Bulmaro Curtis MD Work Phone: [facility] 07-22-2024 09:02-0400 Diastolic blood pressure 80 mm[Hg] Dr. Bulmaro Curtis MD Work Phone: [facility] 07-22-2024 09:02-0400 Heart rate 81 /min Dr. Bulmaro Curtis MD Work Phone: [facility] 07-22-2024 09:02-0400 Respiratory rate 18 /min Dr. Bulmaro Curtis MD Work Phone: 8(112)766-249968 [place] [address] 07-22-2024 09:02-0400 SaO2% (BldA) [Mass fraction] 94 % Dr. Bulmaro Curtis MD Work Phone: 0(594)418-667368 [place] [address] 07-22-2024 09:02-0400 Systolic blood pressure 147 mm[Hg] Dr. Bulmaro Curtis MD Work Phone: 8(816)676-808168 [place] [address] 07-20-2024 08:44-0400 Body mass index (BMI) [Ratio] 37.1 kg/m2 Dr. Bulmaro Curtis MD Work Phone: 3(522)056-135768 [place] [address] 07-20-2024 08:44-0400 Body temperature 98.1 [degF] Dr. Bulmaro Curtis MD Work Phone: 8(306)978-122568 [place] [address] 07-20-2024 08:44-0400 Body weight 131.[address] Bulmaro Curtis MD Work Phone: [facility] 07-20-2024 08:44-0400 Diastolic blood pressure 75 mm[Hg] Dr. Bulmaro Curtis MD Work Phone: 2(662)721-249168 [place] [address] 07-20-2024 08:44-0400 Heart rate 80 /min Dr. Bulmaro Curtis MD Work Phone: 2(985)618-137068 [place] [address] 07-20-2024 08:44-0400 Respiratory rate 18 /min Dr. Bulmaro Curtis MD Work Phone: [facility] 07-20-2024 08:44-0400 SaO2% (BldA) [Mass fraction] 97 % Dr. Bulmaro Curtis MD Work Phone: 5(925)257-475568 [place] [address] 07-20-2024 08:44-0400 Systolic blood pressure 132 mm[Hg] Dr. Bulmaro Curtis MD Work Phone: 1(617)966-932413 [place] [address] 07-15-2024 10:47-0400 Body height 187.[address] Bulmaro Curtis MD Work Phone: 2(314)097-324213 [place] [address] 07-15-2024 10:47-0400 Body weight [address] Bulmaro Curtis MD Work Phone: 5(755)349-730513 [place] [address] 07-15-2024 09:13-0400 Body mass index (BMI) [Ratio] 37.9 kg/m2 Dr. Bulmaro Curtis MD Work Phone: 1(425)543-717513 [place] [address] 07-15-2024 09:13-0400 Body temperature 96.5 [degF] Dr. Bulmaro Curtis MD Work Phone: 6(166)552-348813 [place] [address] 07-15-2024 09:13-0400 Body weight [address] Bulmaro Curtis MD Work Phone: 5(628)611-774313 [place] [address] 07-15-2024 09:13-0400 Diastolic blood pressure 69 mm[Hg] Dr. Bulmaro Curtis MD Work Phone: 7(393)622-128413 [place] [address] 07-15-2024 09:13-0400 Heart rate 78 /min Dr. Bulmaro Curtis MD Work Phone: 6(565)275-450313 [place] [address] 07-15-2024 09:13-0400 Respiratory rate 18 /min Dr. Bulmaro Curtis MD Work Phone: 7(726)623-064068 [place] [address] 07-15-2024 09:13-0400 SaO2% (BldA) [Mass fraction] 97 % Dr. Bulmaro Curtis MD Work Phone: 6(389)062-099468 [place] [address] 07-15-2024 09:13-0400 Systolic blood pressure 102 mm[Hg] Dr. Bulmaro Curtis MD Work Phone: 7(878)505-531213 [place] [address] 07-13-2024 13:57-0400 Body temperature 96.3 [degF] Dr. Bulmaro Curtis MD Work Phone: [facility] 07-13-2024 13:57-0400 Diastolic blood pressure 66 mm[Hg] Dr. Bulmaro Curtis MD Work Phone: [facility] 07-13-2024 13:57-0400 Heart rate 64 /min Dr. Bulmaro Curtis MD Work Phone: [facility] 07-13-2024 13:57-0400 Respiratory rate 16 /min Dr. Bulmaro Curtis MD Work Phone: 1(614)661-846168 [place] [address] 07-13-2024 13:57-0400 SaO2% (BldA) [Mass fraction] 93 % Dr. Bulmaro Curtis MD Work Phone: 5(960)888-767668 [place] [address] 07-13-2024 13:57-0400 Systolic blood pressure 123 mm[Hg] Dr. Bulmaro Curtis MD Work Phone: 5(175)215-309468 [place] [address] 07-13-2024 10:28-0400 Body mass index (BMI) [Ratio] 37.9 kg/m2 Dr. Bulmaro Curtis MD Work Phone: 7(649)934-879568 [place] [address] 07-13-2024 10:28-0400 Body temperature 98.1 [degF] Dr. Bulmaro Curtis MD Work Phone: [facility] 07-13-2024 10:28-0400 Body weight 133.[address] Bulmaro Curtis MD Work Phone: [facility] 07-13-2024 10:28-0400 Diastolic blood pressure 73 mm[Hg] Dr. Bulmaro Curtis MD Work Phone: [facility] 07-13-2024 10:28-0400 Heart rate 80 /min Dr. Bulmaro Curtis MD Work Phone: 2(136)025-842968 [place] [address] 07-13-2024 10:28-0400 Respiratory rate 18 /min Dr. Bulmaro Curtis MD Work Phone: [facility] 07-13-2024 10:28-0400 SaO2% (BldA) [Mass fraction] 92 % Dr. Bulmaro Curtis MD Work Phone: [facility] 07-13-2024 10:28-0400 Systolic blood pressure 127 mm[Hg] Dr. Bulmaro Curtis MD Work Phone: 4(963)528-665068 [place] [address] 07-09-2024 12:23-0400 Body temperature 97.2 [degF] Dr. Bulmaro Curtis MD Work Phone: 5(007)737-807768 [place] [address] 07-09-2024 12:23-0400 Diastolic blood pressure 78 mm[Hg] Dr. Bulmaro Curtis MD Work Phone: 0(271)506-772468 [place] [address] 07-09-2024 12:23-0400 Heart rate 80 /min Dr. Bulmaro Curtis MD Work Phone: 5(860)616-724913 [place] [address] 07-09-2024 12:23-0400 Respiratory rate 16 /min Dr. Bulmaro Curtis MD Work Phone: 3(019)321-153913 [place] [address] 07-09-2024 12:23-0400 SaO2% (BldA) [Mass fraction] 94 % Dr. Bulmaro Curtis MD Work Phone: 6(406)363-988868 [place] [address] 07-09-2024 12:23-0400 Systolic blood pressure 155 mm[Hg] Dr. Bulmaro Curtis MD Work Phone: 2(959)067-460713 [place] [address] 07-09-2024 10:02-0400 Body height 187.[address] Bulmaro Curtis MD Work Phone: 5(292)465-161068 [place] [address] 07-09-2024 10:02-0400 Body mass index (BMI) [Ratio] 38.7 kg/m2 Dr. Bulmaro Curtis MD Work Phone: 3(809)097-164068 [place] [address] 07-09-2024 10:02-0400 Body weight [address] Bulmaro Curtis MD Work Phone: 9(948)899-386968 [place] [address] 07-08-2024 09:52-0400 Body weight 139.[address] Bulmaro Curtis MD Work Phone: 8(209)488-441868 [place] [address] 07-08-2024 09:20-0400 Body mass index (BMI) [Ratio] 38.9 kg/m2 Dr. Bulmaro Curtis MD Work Phone: [facility] 07-08-2024 09:20-0400 Body temperature 96.9 [degF] Dr. Bulmaro Curtis MD Work Phone: 8(986)068-848368 [place] [address] 07-08-2024 09:20-0400 Body weight 137.[address] Bulmaro Curtis MD Work Phone: 1(314)525-053413 [place] [address] 07-08-2024 09:20-0400 Diastolic blood pressure 71 mm[Hg] Dr. Bulmaro Curtis MD Work Phone: 2(312)827-457913 [place] [address] 07-08-2024 09:20-0400 Heart rate 58 /min Dr. Bulmaro Curtis MD Work Phone: 6(188)540-286513 [place] [address] 07-08-2024 09:20-0400 Respiratory rate 16 /min Dr. Bulmaro Curtis MD Work Phone: 8(435)733-793713 [place] [address] 07-08-2024 09:20-0400 SaO2% (BldA) [Mass fraction] 93 % Dr. Bulmaro Curtis MD Work Phone: 9(726)617-922013 [place] [address] 07-08-2024 09:20-0400 Systolic blood pressure 116 mm[Hg] Dr. Bulmaro Curtis MD Work Phone: 5(393)246-553813 [place] [address] 07-06-2024 13:42-0400 Diastolic blood pressure 67 mm[Hg] Dr. Bulmaro Curtis MD Work Phone: 8(244)618-177213 [place] [address] 07-06-2024 13:42-0400 Heart rate 74 /min Dr. Bulmaro Curtis MD Work Phone: 4(836)551-345913 [place] [address] 07-06-2024 13:42-0400 Systolic blood pressure 142 mm[Hg] Dr. Bulmaro Curtis MD Work Phone: 1(660)196-710713 [place] [address] 07-06-2024 08:23-0400 Body mass index (BMI) [Ratio] 39.4 kg/m2 Dr. Bulmaro Curtis MD Work Phone: 8(329)787-116813 [place] [address] 07-06-2024 08:23-0400 Body temperature 98.2 [degF] Dr. Bulmaro Curtis MD Work Phone: [facility] 07-06-2024 08:23-0400 Body weight 139.[address] Bulmaro Curtis MD Work Phone: 8(204)685-120368 [place] [address] 07-06-2024 08:23-0400 Diastolic blood pressure 72 mm[Hg] Dr. Bulmaro Curtis MD Work Phone: 9(597)029-287868 [place] [address] 07-06-2024 08:23-0400 Heart rate 66 /min Dr. Bulmaro Curtis MD Work Phone: 7(179)345-312013 [place] [address] 07-06-2024 08:23-0400 Respiratory rate 18 /min Dr. Bulmaro Curtis MD Work Phone: 4(117)699-562513 [place] [address] 07-06-2024 08:23-0400 SaO2% (BldA) [Mass fraction] 94 % Dr. Bulmaro Curtis MD Work Phone: 4(333)497-276813 [place] [address] 07-06-2024 08:23-0400 Systolic blood pressure 158 mm[Hg] Dr. Bulmaro Curtis MD Work Phone: 0(323)680-335113 [place] [address] 07-02-2024 14:09-0400 Body temperature 97.6 [degF] Dr. Bulmaro Curtis MD Work Phone: 7(623)000-610113 [place] [address] 07-02-2024 14:09-0400 Diastolic blood pressure 84 mm[Hg] Dr. Bulmaro Curtis MD Work Phone: 0(593)488-564013 [place] [address] 07-02-2024 14:09-0400 Heart rate 70 /min Dr. Bulmaro Curtis MD Work Phone: [facility] 07-02-2024 14:09-0400 Respiratory rate 16 /min Dr. Bulmaro Curtis MD Work Phone: 0(590)911-565168 [place] [address] 07-02-2024 14:09-0400 SaO2% (BldA) [Mass fraction] 94 % Dr. Bulmaro Curtis MD Work Phone: 6(329)771-005868 [place] [address] 07-02-2024 14:09-0400 Systolic blood pressure 151 mm[Hg] Dr. Bulmaro Curtis MD Work Phone: 9(859)442-150768 [place] [address] 07-02-2024 14:00-0400 Heart rate 56 /min Dr. Bulmaro Curtis MD Work Phone: 7(025)263-668968 [place] [address] 07-02-2024 14:00-0400 Respiratory rate 20 /min Dr. Bulmaro Curtis MD Work Phone: 1(143)545-221868 [place] [address] 07-02-2024 13:15-0400 Inhaled oxygen flow rate 2 L/min Dr. Bulmaro Curtis MD Work Phone: 3(480)441-635668 [place] [address] 07-02-2024 08:54-0400 Body height 187.[address] Bulmaro Curtis MD Work Phone: 7(964)107-947568 [place] [address] 07-02-2024 08:54-0400 Body mass index (BMI) [Ratio] 39.9 kg/m2 Dr. Bulmaro Curtis MD Work Phone: 2(550)233-045768 [place] [address] 07-02-2024 08:54-0400 Body weight [address] Bulmaro Curtis MD Work Phone: 9(172)202-693168 [place] [address] 06-29-2024 10:27-0400 Body mass index (BMI) [Ratio] 40.2 kg/m2 Dr. Bulmaro Curtis MD Work Phone: 6(808)815-269868 [place] [address] 06-29-2024 10:27-0400 Body temperature 97.9 [degF] Dr. Bulmaro Curtis MD Work Phone: 2(435)169-500668 [place] [address] 06-29-2024 10:27-0400 Body weight 142.[address] Bulmaro Curtis MD Work Phone: 2(219)260-875168 [place] [address] 06-29-2024 10:27-0400 Diastolic blood pressure 72 mm[Hg] Dr. Bulmaro Curtis MD Work Phone: 6(984)409-482068 [place] [address] 06-29-2024 10:27-0400 Heart rate 58 /min Dr. Bulmaro Curtis MD Work Phone: 0(373)453-443668 [place] [address] 06-29-2024 10:27-0400 Respiratory rate 16 /min Dr. Bulmaro Curtis MD Work Phone: 5(622)006-342068 [place] [address] 06-29-2024 10:27-0400 SaO2% (BldA) [Mass fraction] 94 % Dr. Bulmaro Curtis MD Work Phone: [facility] 06-29-2024 10:27-0400 Systolic blood pressure 149 mm[Hg] Dr. Bulmaro Curtis MD Work Phone: [facility] 06-11-2024 08:25-0400 Diastolic blood pressure 54 mm[Hg] Franco Sanchez BLANCA Work Phone: [facility] 06-11-2024 08:25-0400 Heart rate 82 /min Franco Sanchez BLANCA Work Phone: [facility] 06-11-2024 08:25-0400 Systolic blood pressure 148 mm[Hg] Franco Sanchez BLANCA Work Phone: [facility] 06-03-2024 09:39-0400 Body mass index (BMI) [Ratio] 40.8 kg/m2 Dr. Bulmaro Curtis MD Work Phone: [facility] 06-03-2024 09:39-0400 Body weight 144.[address] Bulmaro Curtis MD Work Phone: [facility] 06-03-2024 09:39-0400 Diastolic blood pressure 63 mm[Hg] Dr. Bulmaro Curtis MD Work Phone: [facility] 06-03-2024 09:39-0400 Heart rate 87 /min Dr. Bulmaro Curtis MD Work Phone: [facility] 06-03-2024 09:39-0400 Respiratory rate 18 /min Dr. Bulmaro Curtis MD Work Phone: [facility] 06-03-2024 09:39-0400 SaO2% (BldA) [Mass fraction] 92 % Dr. Bulmaro Curtis MD Work Phone: [facility] 06-03-2024 09:39-0400 Systolic blood pressure 136 mm[Hg] Dr. Bulmaro Curtis MD Work Phone: [facility] 06-02-2024 15:39-0400 Body mass index (BMI) [Ratio] 40.8 kg/m2 Dr. Bulmaro Curtis MD Work Phone: [facility] 06-02-2024 15:39-0400 Body temperature 98.1 [degF] Dr. Bulmaro Curtis MD Work Phone: [facility] 06-02-2024 15:39-0400 Body weight 144.[address] Bulmaro Curtis MD Work Phone: [facility] 06-02-2024 15:39-0400 Diastolic blood pressure 69 mm[Hg] Dr. Bulmaro Curtis MD Work Phone: 2(168)802-173468 [place] [address] 06-02-2024 15:39-0400 Heart rate 77 /min Dr. Bulmaro Curtis MD Work Phone: 2(236)939-765868 [place] [address] 06-02-2024 15:39-0400 Respiratory rate 18 /min Dr. Bulmaro Curtis MD Work Phone: 7(776)098-481568 [place] [address] 06-02-2024 15:39-0400 SaO2% (BldA) [Mass fraction] 93 % Dr. Bulmaro Curtis MD Work Phone: [facility] 06-02-2024 15:39-0400 Systolic blood pressure 131 mm[Hg] Dr. Bulmaro Curtis MD Work Phone: [facility] 05-26-2024 13:00-0500 Body mass index (BMI) [Ratio] 40 kg/m2 Dr. Bulmaro Curtis MD Work Phone: [facility] 05-26-2024 13:00-0500 Body temperature 97.9 [degF] Dr. Bulmaro Curtis MD Work Phone: [facility] 05-26-2024 13:00-0500 Body weight 141.[address] Bulmaro Curtis MD Work Phone: [facility] 05-26-2024 13:00-0500 Diastolic blood pressure 80 mm[Hg] Dr. Bulmaro Curtis MD Work Phone: [facility] 05-26-2024 13:00-0500 Heart rate 73 /min Dr. Bulmaro Curtis MD Work Phone: [facility] 05-26-2024 13:00-0500 Respiratory rate 18 /min Dr. Bulmaro Curtis MD Work Phone: [facility] 05-26-2024 13:00-0500 SaO2% (BldA) [Mass fraction] 91 % Dr. Bulmaro Curtis MD Work Phone: [facility] 05-26-2024 13:00-0500 Systolic blood pressure 124 mm[Hg] Dr. Bulmaro Curtis MD Work Phone: [facility] 05-08-2024 09:57-0500 Body temperature 98.49 [degF] Simon Packer MD Work Phone: [facility] 05-08-2024 09:57-0500 Diastolic blood pressure 53 mm[Hg] Simon Packer MD Work Phone: [facility] 05-08-2024 09:57-0500 Heart rate 75 /min Simon Packer MD Work Phone: [facility] 05-08-2024 09:57-0500 Respiratory rate 16 /min Simon Packer MD Work Phone: [facility] 05-08-2024 09:57-0500 SaO2% (BldA) [Mass fraction] 93 % Simon Packer MD Work Phone: [facility] 05-08-2024 09:57-0500 Systolic blood pressure 132 mm[Hg] [facility] 04-28-2024 14:34-0500 Heart rate 81 /min Evieshirley Blank [employer] Work Phone: [employer] 04-28-2024 12:56-0500 Body height 188 cm Evieshirley Blank [employer] Work Phone: [employer] 04-28-2024 12:56-0500 Body mass index (BMI) [Ratio] 40.93 kg/m2 Evie Markiv [employer] AND [employer]AKFA[employer] Work Phone: [employer] 04-28-2024 12:56-0500 Body weight 144.61 kg Evie Blank APRN-FRONT FACER Work Phone: [employer] 04-28-2024 12:56-0500 Diastolic blood pressure 69 mm[Hg] Evie Blank APRN-FRONT FACER Work Phone: [employer] 04-28-2024 12:56-0500 Heart rate 90 /min Evie Blank APRN-[employer] FACER Work Phone: [employer] 04-28-2024 12:56-0500 Respiratory rate 16 /min Evie Blank APRN-[employer] F[employer]ER Work Phone: [employer] 04-28-2024 12:56-0500 SaO2% (BldA) [Mass fraction] 96 % Evie Blank APRNChinaNet Online HoldingsFRONT FACER Work Phone: [employer] 04-28-2024 12:56-0500 Systolic blood pressure 131 mm[Hg] Evie Blank APRN-FRONT FACER Work Phone: [employer] 04-28-2024 11:40-0500 Body temperature 98.49 [degF] Simon Packer MD Work Phone: [employer] 04-28-2024 11:40-0500 Body weight 144.2 kg Simon Packer MD Work Phone: [employer] 04-28-2024 11:40-0500 Heart rate 82 /min Simon Packer MD Work Phone: [employer] 04-28-2024 11:40-0500 SaO2% (BldA) [Mass fraction] 97 % Simon Packer MD Work Phone: [employer] 07-31-2023 07:26-0400 Body height 187.[address] Bulmaro Curtis Work Phone: [facility] 07-31-2023 07:26-0400 Body mass index (BMI) [Ratio] 42 kg/m2 Dr. Bulmaro Curtis Work Phone: [facility] 07-31-2023 07:26-0400 Body temperature 98 [degF] Dr. Bulmaro Curtis Work Phone: [facility] 07-31-2023 07:26-0400 Body weight 148.[address] Bulmaro Curtis Work Phone: [facility] 07-31-2023 07:26-0400 Diastolic blood pressure 83 mm[Hg] Dr. Bulmaro Curtis Work Phone: 0(772)442-878968 [place] [address] 07-31-2023 07:26-0400 Heart rate 82 /min Dr. Bulmaro Curtis Work Phone: 2(810)887-256487 [address] 07-31-2023 07:26-0400 Respiratory rate 22 /min Dr. Bulmaro Curtis Work Phone: 6(334)841-208887 [address] 07-31-2023 07:26-0400 SaO2% (BldA) [Mass fraction] 94 % Dr. Bulmaro Curtis Work Phone: [facility] 07-31-2023 07:26-0400 Systolic blood pressure 146 mm[Hg] Dr. Bulmaro Curtis Work Phone: 5(715)241-692087 [address] 03-14-2023 06:27-0500 Body height 187.[address] Bulmaro Curtis Work Phone: [facility] 03-14-2023 06:27-0500 Body mass index (BMI) [Ratio] 27.6 kg/m2 Dr. Bulmaro Curtis Work Phone: [facility] 03-14-2023 06:27-0500 Body temperature 96.9 [degF] Dr. Bulmaro Curtis Work Phone: 4(961)540-310368 [place] [address] 03-14-2023 06:27-0500 Body weight 97.[address] Bulmaro Curtis Work Phone: [facility] 03-14-2023 06:27-0500 Diastolic blood pressure 70 mm[Hg] Dr. Bulmaro Curtis Work Phone: 1(313)061-312668 [place] [address] 03-14-2023 06:27-0500 Heart rate 71 /min Dr. Bulmaro Curtis Work Phone: 4(125)333-157368 [place] [address] 03-14-2023 06:27-0500 Respiratory rate 20 /min Dr. Bulmaro Curtis Work Phone: 5(897)311-571468 [place] [address] 03-14-2023 06:27-0500 SaO2% (BldA) [Mass fraction] 94 % Dr. Bulmaro Curtis Work Phone: 8(472)702-110268 [place] [address] 03-14-2023 06:27-0500 Systolic blood pressure 136 mm[Hg] Dr. Bulmaro Curtis Work Phone: 8(197)409-984713 [place] [address] 12-17-2022 08:52-0400 Diastolic blood pressure 77 mm[Hg] Dr. Bulmaro Curtis Work Phone: 0(773)354-824913 [place] [address] 12-17-2022 08:52-0400 Heart rate 70 /min Dr. Bulmaro Curtis Work Phone: 6(971)590-428713 [place] [address] 12-17-2022 08:52-0400 Systolic blood pressure 166 mm[Hg] Dr. Bulmaro Curtis Work Phone: 4(584)485-283713 [place] [address] 12-17-2022 07:51-0400 Body height 187.[address] Bulmaor Curtis Work Phone: 0(779)669-697013 [place] [address] 12-17-2022 07:51-0400 Body mass index (BMI) [Ratio] 39.6 kg/m2 Dr. Bulmaro Curtis Work Phone: 8(264)743-462413 [place] [address] 12-17-2022 07:51-0400 Body temperature 97.9 [degF] Dr. Bulmaro Curtis Work Phone: 3(405)704-714413 [place] [address] 12-17-2022 07:51-0400 Body weight 140.[address] Bulmaro Curtis Work Phone: 9(303)099-910813 [place] [address] 12-17-2022 07:51-0400 Respiratory rate 16 /min Dr. Bulmaro Curtis Work Phone: 2(809)449-521768 [place] [address] 12-17-2022 07:51-0400 SaO2% (BldA) [Mass fraction] 95 % Dr. Bulmaro Curtis Work Phone: [facility] 09-12-2022 06:21-0400 Body mass index (BMI) [Ratio] 38.7 kg/m2 Dr. Bulmaro Curtis Work Phone: [facility] 09-12-2022 06:21-0400 Body temperature 97.6 [degF] Dr. Bulmaro Curtis Work Phone: [facility] 09-12-2022 06:21-0400 Body weight 140.[address] Bulmaro Curtis Work Phone: [facility] 09-12-2022 06:21-0400 Diastolic blood pressure 73 mm[Hg] Dr. Bulmaro Curtis Work Phone: [facility] 09-12-2022 06:21-0400 Heart rate 70 /min Dr. Bulmaro Curtis Work Phone: [facility] 09-12-2022 06:21-0400 Respiratory rate 20 /min Dr. Bulmaro Curtis Work Phone: [facility] 09-12-2022 06:21-0400 SaO2% (BldA) [Mass fraction] 92 % Dr. Bulmaro Curtis Work Phone: [facility] 09-12-2022 06:21-0400 Systolic blood pressure 141 mm[Hg] Dr. Bulmaro Curtis Work Phone: [facility] 05-21-2022 07:54-0500 Body height 190.[address] Bulmaro Curtis Work Phone: [facility] 05-21-2022 07:54-0500 Body mass index (BMI) [Ratio] 39.4 kg/m2 Dr. Bulmaro Curtis Work Phone: [facility] 05-21-2022 07:54-0500 Body temperature 98 [degF] Dr. Bulmaro Curtis Work Phone: [facility] 05-21-2022 07:54-0500 Body weight 142.[address] Bulmaro Curtis Work Phone: [facility] 05-21-2022 07:54-0500 Diastolic blood pressure 80 mm[Hg] Dr. Bulmaro Curtis Work Phone: [facility] 05-21-2022 07:54-0500 Heart rate 78 /min Dr. Bulmaro Curtis Work Phone: [facility] 05-21-2022 07:54-0500 Respiratory rate 18 /min Dr. Bulmaro Curtis Work Phone: [facility] 05-21-2022 07:54-0500 SaO2% (BldA) [Mass fraction] 92 % Dr. Bulmaro Curtis Work Phone: [facility] 05-21-2022 07:54-0500 Systolic blood pressure 138 mm[Hg] Dr. Bulmaro Curtis Work Phone: [phone] [place] [address] 05-15-2022 11:30-0500 Diastolic blood pressure 76 mm[Hg] Dr. Bulmaro Curtis Work Phone: [facility] 05-15-2022 11:30-0500 Heart rate 70 /min Dr. Bulmaro Curtis Work Phone: [facility] 05-15-2022 11:30-0500 Respiratory rate 18 /min Dr. Bulmaro Curtis Work Phone: [facility] 05-15-2022 11:30-0500 SaO2% (BldA) [Mass fraction] 93 % Dr. Bulmaro Curtis Work Phone: [facility] 05-15-2022 11:30-0500 Systolic blood pressure 125 mm[Hg] Dr. Bulmaro Curtis Work Phone: 6(214)[phone] [place] [address] 05-15-2022 08:15-0500 Body height 190.[address] Bulmaro Curtis Work Phone: [facility] 05-15-2022 08:15-0500 Body mass index (BMI) [Ratio] 38.6 kg/m2 Dr. Bulmaro Curtis Work Phone: [facility] 05-15-2022 08:15-0500 Body temperature 96.6 [degF] Dr. Bulmaro Curtis Work Phone: [facility] 05-15-2022 08:15-0500 Body weight 140.[address] Bulmaro Curtis Work Phone: [facility] 05-08-2022 06:35-0500 Body mass index (BMI) [Ratio] 40.4 kg/m2 Dr. Bulmaro Curtis Work Phone: [facility] 05-08-2022 06:35-0500 Body temperature 97.5 [degF] Dr. Bulmaro Curtis Work Phone: 7([phone] [place] [address] 05-08-2022 06:35-0500 Body weight 142.[address] Bulmaro Curtis Work Phone: 4(717)[phone] [place] [address] 05-08-2022 06:35-0500 Diastolic blood pressure 77 mm[Hg] Dr. Bulmaro Curtis Work Phone: 6(031)[phone] [place] [address] 05-08-2022 06:35-0500 Heart rate 79 /min Dr. Bulmaro Curtis Work Phone: [facility] 05-08-2022 06:35-0500 Respiratory rate 22 /min Dr. Bulmaro Curtsi Work Phone: [facility] 05-08-2022 06:35-0500 SaO2% (BldA) [Mass fraction] 94 % Dr. Bulmaro Curtis Work Phone: [facility] 05-08-2022 06:35-0500 Systolic blood pressure 140 mm[Hg] Dr. Bulmaro Curtis Work Phone: [facility] 06-07-2021 08:46-0400 Body height 187.[address] Bulmaro Curtis Work Phone: [facility] Work Phone: 06-07-2021 08:46-0400 Body mass index (BMI) [Ratio] 40 kg/m2 Dr. Bulmaro Curtis Work Phone: [facility] Work Phone: 06-07-2021 08:46-0400 Body temperature 97.2 [degF] Dr. Bulmaro Crutis Work Phone: [facility] Work Phone: 06-07-2021 08:46-0400 Body weight 141.[address] Bulmaro Curtis Work Phone: [facility] Work Phone: 06-07-2021 08:46-0400 Diastolic blood pressure 68 mm[Hg] Dr. Bulmaro Curtis Work Phone: [facility] Work Phone: 06-07-2021 08:46-0400 Heart rate 67 /min Dr. Bulmaro Curtis Work Phone: [facility] Work Phone: 06-07-2021 08:46-0400 Respiratory rate 17 /min Dr. Bulmaro Curtis Work Phone: [facility] Work Phone: 06-07-2021 08:46-0400 SaO2% (BldA) [Mass fraction] 94 % Dr. Bulmaro Curtis Work Phone: [facility] Work Phone: 06-07-2021 08:46-0400 Systolic blood pressure 116 mm[Hg] Dr. Bulmaro Curtis Work Phone: [facility] Work Phone: 03-13-2021 08:25-0500 Body mass index (BMI) [Ratio] 36.8 kg/m2 Dr. Bulmaro Curtis Work Phone: [facility] Work Phone: 03-13-2021 08:25-0500 Body weight 130.[address] Bulmaro Curtis Work Phone: [facility] Work Phone: Encounters Encounter Date Encounter Type Care Provider Facility Start: 09-15-[address] Cipriano Layne [facility] Start: 09-15-2024 End: 09-15-[address] [facility] Work Phone: Start: 09-15-2024 End: 09-15-[address] Bulmaro Curtis MD Work Phone: [facility] Work Phone: Start: 08-20-2024 Non-patient / Non-visit Dr. Christina VÁSQUEZ [facility] Work Phone: Start: 08-20-2024 ambulatory Cipriano Layne Facility: [facility] Start: 08-19-2024 End: 08-19-[address] Cipriano Layne DO [facility] Work Phone: Start: 08-19-2024 End: 08-19-[address] Bulmaro Curtis MD Work Phone: [facility] Work Phone: Start: 08-19-[address] [facility] Start: 08-18-2024 End: 08-21-2024 Telephone encounter Cindy Newell RN Work Phone: [facility] Otolaryngology (ENT) Start: 08-18-[address] [facility] Start: 08-18-2024 End: 08-18-[address] Franco Pérez MD -[facility] Work Phone: Start: 08-18-2024 End: 08-18-[address] Bulmaro Curtis MD Work Phone: [facility] Work Phone: Start: 08-12-2024 End: 08-12-[address] Cipriano Layne DO [facility] Work Phone: Start: 08-12-2024 End: 08-12-[address] Bulmaro Curtis MD Work Phone: [facility] Work Phone: Start: 08-12-[address] Cipriano Layne DO -Radiation Oncology Start: 08-10-[address] Cipriano Layne DO -Radiation Oncology Start: 08-10-2024 End: 08-10-[address] Franco Pérez MD -[facility] Work Phone: Start: 08-10-2024 End: 08-10-[address] Bulmaro Curtis MD Work Phone: [facility] Work Phone: Start: 08-07-[address] Cipriano Layne DO -Speech Therapy Work Phone: Start: 08-05-2024 End: 08-05-[address] [facility] Work Phone: Start: 08-05-2024 End: 08-05-[address] Bulmaro Curtis MD Work Phone: [facility] Work Phone: Start: 08-05-[address] Cipriano Layne DO -Radiation Oncology Start: 08-03-2024 End: 08-03-[address] Franco Péerz MD -[facility] Work Phone: Start: 08-03-2024 End: 08-03-2024 ambulatory Bulmaro Curtis Facility:[facility] Start: 07-31-[address] [facility] Work Phone: Start: 07-29-2024 End: 07-29-[address] Cipriano Layne DO [facility] Work Phone: Start: 07-29-2024 End: 07-29-2024 ambulatory Cipriano Layne Facility:[facility] Start: 07-28-2024 ambulatory Cipriano Layne Facility: [facility] Start: 07-28-2024 Non-patient / Non-visit Dr. Christina VÁSQUEZ -[facility] Start: 07-27-2024 ambulatory Cipriano Layne Facility: [facility] Start: 07-27-2024 Non-patient / Non-visit Dr. Christina VÁSQUEZ -[facility] Start: 07-27-2024 End: 07-27-[address] Franco Pérez MD -[facility] Work Phone: Start: 07-27-2024 End: 07-27-2024 ambulatory Bulmaro Chi Ever Facility:[facility] Start: 07-22-2024 End: 07-22-2024 Patient encounter procedure Elicia Yin PA-C -[facility] Work Phone: Start: 07-22-2024 End: 07-22-2024 ambulatory Bulmaro Chi Ever Facility:[facility] Start: 07-20-2024 End: 07-20-[address] Franco Pérez MD -[facility] Work Phone: Start: 07-20-2024 End: 07-20-2024 ambulatory Bulmaro Chi Ever Facility:[facility] Start: 07-17-[address] Cipriano Layne DO -Radiation Oncology Start: 07-15-2024 End: 07-15-[address] Cipriano Layne DO -[facility] Work Phone: Start: 07-15-2024 End: 07-15-2024 ambulatory Cipriano Layne Facility:[facility] Start: 07-14-2024 End: 07-14-[address] Bulmaro Curtis MD Work Phone: [facility] Work Phone: Start: 07-14-2024 End: 07-14-[address] Cipriano Layne DO -Radiology, [facility] Work Phone: Start: 07-13-[address] Cipriano Lyane DO -Speech Therapy Work Phone: Start: 07-13-2024 End: 07-13-[address] Franco Pérez MD -[facility] Work Phone: Start: 07-13-2024 End: 07-14-2024 ambulatory Cipriano Layne Facility:[facility] Start: 07-11-2024 End: 07-11-2024 Letter encounter Evie Blank BED AND BREAKFAST INNKEEPER-FRONT FACER Work Phone: [facility] Start: 07-10-[address] Cipriano Layne DO -Radiation Oncology Start: 07-09-2024 ambulatory Daniel Sánchez Facility :[facility] Start: 07-09-2024 Non-patient / Non-visit Dr. Priyank ALVARENGA -[facility] Start: 07-09-2024 End: 07-09-2024 Admission to same day surgery center Dr. Dnaiel Sánchez MD -[facility] Start: 07-09-2024 End: 07-09-[address] Bulmaro Curtis MD Work Phone: [facility] Work Phone: Start: 07-09-[address] Cipriano Layne DO -Radiation Oncology Start: 07-08-2024 End: 07-08-[address] Cipriano Layne DO -[facility] Work Phone: Start: 07-08-2024 End: 07-08-2024 ambulatory Cipriano Layne Facility:[facility] Start: 07-06-2024 End: 07-06-[address] Bulmaro Curtis MD Work Phone: [facility] Work Phone: Start: 07-06-2024 End: 07-06-2024 Patient encounter procedure Elicia Yin PA-C -Radiology, [facility] Work Phone: Start: 07-06-2024 End: 07-06-[address] Franco Pérez MD -[facility] Work Phone: Start: 07-06-2024 End: 07-06-2024 ambulatory Bulmaro Curtis Facility:[facility] Start: 07-06-2024 End: 07-06-2024 ambulatory Elicia Yin Facility:[facility] Start: 07-02-2024 End: 07-02-2024 ambulatory Jovon Martin Facility:[facility] Start: 07-02-2024 End: 07-02-2024 Non-patient / Non-visit Dr. Andry Juárez MD -[facility] Work Phone: Start: 07-02-2024 ambulatory Daniel Sánchez Facility :[facility] Start: 07-02-2024 Non-patient / Non-visit Dr. Priyank ALVARENGA -[facility] Start: 07-02-2024 End: 07-02-2024 Admission to same day surgery center Dr. Daniel Sánchez MD -[facility] Start: 07-02-2024 End: 07-02-[address] Bulmaro Curtis MD Work Phone: [facility] Work Phone: Start: 06-29-2024 End: 06-29-2024 Patient encounter procedure Ashly Laguerre NETWORKING TECHNICIAN-C -[facility] Work Phone: Start: 06-29-2024 End: 06-29-2024 ambulatory Bulmaro Curtis Facility:[facility] Start: 06-24-2024 ambulatory Cipriano Layne Facility: [facility] Start: 06-24-2024 Non-patient / Non-visit Dr. Vasquez [facility] Start: 06-23-2024 ambulatory Cipriano Layne Facility: [facility] Start: 06-23-2024 Non-patient / Non-visit Dr. Christina VÁSQUEZ [facility] Start: 06-19-2024 ambulatory Cipriano Layne Facility: [facility] Start: 06-19-2024 Non-patient / Non-visit Dr. Vasquez [facility] Start: 06-19-[address] 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 Daniel Sánchez MD -[facility] Work Phone: Start: 06-03-2024 End: 06-03-2024 ambulatory Daniel Sánchez Facility:[facility] Start: 06-02-2024 End: 06-02-[address] Franco Pérez MD -[facility] Work Phone: Start: 06-02-2024 End: 06-02-2024 ambulatory Bulmaro Curtis Facility:[facility] Start: 05-27-2024 End: 05-27-2024 ambulatory UNKNOWN PROVIDER Facility:[facility] Start: 05-26-2024 End: 05-26-[address] Cipriano Layne DO -[facility] Work Phone: Start: 05-26-2024 End: 05-26-2024 ambulatory Cipriano Layne Facility:[facility] Start: 05-22-2024 End: 05-22-2024 ambulatory UNKNOWN PROVIDER Facility:[facility] Start: 05-22-2024 ambulatory SHARDA CIARA N ANDARA Facility:[facility] Start: 05-20-2024 Non-patient / Non-visit Lelo Galicia [facility] Work Phone: Start: 05-20-2024 ambulatory Lelo Dan Facility :[facility] Start: 05-13-2024 End: 05-13-2024 ambulatory UNKNOWN PROVIDER Facility:[facility] Start: 05-13-2024 End: 05-14-2024 ambulatory UNKNOWN PROVIDER Facility:[facility] Start: 05-08-2024 End: 05-08-2024 ambulatory SIMON PACKER Facility:[facility] Start: 05-08-2024 End: 05-08-2024 Subsequent hospital visit by physician Simon [facility]acker [facility] Comment on above: Neck mass; Warthin's tumor; Oropharyngeal mass Start: 05-05-2024 End: 05-05-2024 Telephone encounter Cindy Newell RN Work Phone: [facility] Otolaryngology (ENT) Start: 05-04-2024 End: 05-04-2024 Telephone encounter Gela Kelly ACCREDITATION COORDINATOR [facility] Phone[facility] Comment on above: Outreach Start: 04-28-2024 End: 04-29-2024 Office consultation new/estab patient 60 min Evie Blank BED AND BREAKFAST INNKEEPER-FRONT FACER [facility] Comment on above: Pre-op testing (Prim shanika Dx); Abnormal electrocardiogram (ECG) (EKG); Abnormal electrocardiogram (ECG) (EKG); Primary hypertension; H/O pulmonary emphysema (HCC) Start: 04-28-2024 End: 04-29-2024 Patient encounter status Evie Blank BED AND BREAKFAST INNKEEPER-FRONT FACER Work Phone: [employer] Work Phone: Start: 04-28-2024 End: 04-29-2024 ambulatory IRAJ DUBOIS Facility:[facility] Start: 04-28-2024 Encounter for other preprocedural examination EVIE BLANK [employer] Start: 04-28-2024 End: 04-29-2024 Office consultation new/estab patient 80 min Simon Packer MD [facility] Comment on above: Neck mass (Primary D x); Warthin's tumor; Oropharyngeal mass Start: 04-28-2024 End: 04-29-2024 ambulatory IRAJ DUBOIS Facility:[facility] Start: 04-17-2024 End: 04-17-2024 ambulatory UNKNOWN PROVIDER Facility:[facility] Start: 04-17-2024 End: 04-17-2024 Subsequent hospital visit by physician [facility] Radiology Comment on above: Neck mass Start: 04-13-2024 End: 04-13-[address] Iraj Dubois MD -Cat Scan, [facility] Work Phone: Start: 04-13-2024 End: 04-13-2024 ambulatory Iraj Dubois Facility:[facility] Start: 01-07-2024 End: 01-07-2024 ambulatory Bulmaro Curtis Facility:[facility] Start: 07-31-2023 End: 07-31-[address] Bulmaro Curtis Work Phone: [facility] Pulmonary Medicine Work Phone: Start: 07-29-2023 End: 07-29-[address] Bulmaro Curtis Work Phone: [facility] Work Phone: Start: 07-29-2023 End: 07-29-[address] Bulmaro Curtis Work Phone: [facility] Work Phone: Start: 07-25-2023 End: 07-25-[address] Bulmaro Curtis Work Phone: [facility] Work Phone: Start: 07-25-2023 End: 07-25-[address] Bulmaro Curtis Work Phone: [facility]-Cat Scan, [facility] Work Phone: Start: 07-04-2023 End: 07-04-[address] Bulmaro Curtis Work Phone: [facility] Work Phone: Start: 07-04-2023 End: 07-04-[address] Bulmaro Curtis Work Phone: [facility] Start: 03-14-2023 End: 03-14-[address] Bulmaro Curtis Work Phone: [facility] Pulmonary Medicine Work Phone: Start: 01-03-2023 End: 01-03-[address] Bulmaro Curtis Work Phone: [facility] Work Phone: Start: 01-03-2023 End: 01-03-[address] [facility]mar[facility] Curtis [facility] Start: 12-17-2022 End: 12-17-2022 Emergency department patient visit Dr. Bulmaro Curtis Work Phone: [facility]-Emergency Department Work Phone: Start: 09-12-2022 End: 09-12-[address] Bulmaro Curtis [facility] Work Phone: Start: 08-18-2022 End: 08-18-[address] Bulmaro Curtis Work Phone: [facility] Work Phone: Start: 08-18-2022 End: 08-18-[address] Bulmaro Curtis Work Phone: [facility] Start: 06-28-2022 End: 06-28-[address] Bulmaro Curtis Work Phone: [facility], y Office 3rd Flr Start: 05-21-2022 End: 05-21-[address] Bulmaro Curtis [facility] Start: 05-15-2022 End: 05-15-[address] Bulmaro Curtis Work Phone: [facility] Work Phone: Start: 05-15-2022 End: 05-15-[address] Bulmaro Curtis Work Phone: [facility] Start: 05-08-2022 End: 05-08-[address] Bulmaro Curtis [facility] Start: 05-07-2022 End: 05-07-[address] Bulmaro Curtis Work Phone: [facility] Work Phone: Start: 05-07-2022 End: 05-07-[address] Bulmaro Curtis Work Phone: [facility] Start: 03-29-2022 End: 03-29-2022 ambulatory [facility] Work Phone: Start: 03-29-2022 End: 03-29-2022 Patient encounter procedure [facility]-Laboratory, Phy Office 3rd Flr Start: 12-28-2021 End: 12-28-2021 Patient encounter procedure [facility]-Laboratory, Phy Office 3rd Flr Start: 10-06-2021 End: 10-06-2021 Patient encounter procedure [facility]-MRI - [facility] Start: 06-22-2021 End: 06-22-[address] Bulmaro Curtis Work Phone: [facility]-Laboratory Start: 06-07-2021 End: 06-07-[address] Bulmaro Curtis Work Phone: [facility]-Pulmonary Medicine [facility] Start: 05-03-2021 End: 05-03-[address] Bulmaro Curtis Work Phone: [facility] Start: 03-13-2021 End: 03-13-[address] Bulmaro Curtis Work Phone: [facility] Orthopaedic Specia Procedures Date Procedure Procedure [...] Blood count complete automated Evie Ma rkiv BED AND BREAKFAST INNKEEPER-FRONT FACER Work Phone: Start: 04-28-2024 Ecg routine ecg w/least 12 lds trcg only w/o i&r Evie Markiv BED AND BREAKFAST INNKEEPER-FRONT FACER Work Phone: Start: 04-17-2024 Radiology Comparison study [...] Start: 04-28-2025 Creatinine measurement Basic Metabolic Panel [facility] Start: 12-23-2024 Influenza vaccination Influenza Vaccine (#1) [facility] Start: 09-23-2024 End: 09-23-2024 ambulatory 09/23/2024 2:00 PM EDT [facility] Speech ENT [address] [place] [id number] Kristofer Anderson, [facility]-MODERATE NEEDS TEACHER [address] [place], [place] [id number] [facility] Speech ENT Start: 09-23-2024 End: 09-23-2024 Patient encounter procedure 09/23/2024 1:00 PM EDT Office Visit [facility] Otolaryngology (ENT) [address] [place] [id number] Simon Packer MD [address] [place] [id number] [facility] Otolaryngology (ENT) Start: 09-15-2024 Comprehensive metabolic 2000 panel - Serum or Plasma [facility] Start: 09-15-2024 Lactate dehydrogenase measurement [facility] Start: 09-15-2024 Magnesium measurement [facility] Start: 09-15-2024 Serum inorganic phosphate measurement [facility] Start: 09-15-2024 T4 free measurement [facility] Start: 09-15-2024 Thyroid stimulating hormone measurement [facility] Start: 09-15-2024 [facility] Start: 08-19-2024 End: 08-19-2024 ambulatory 08/19/2024 3:00 PM EDT [facility] Speech [facility] [address] [place] [id number] Kristofer Anderson, CCC-MODERATE NEEDS TEACHER [address] [place] [address] [facility] Speech [facility] Start: 08-19-2024 End: 08-19-2024 Patient encounter procedure 08/19/2024 2:30 PM EDT Office Visit [facility] Otolaryngology (ENT) [address] [place], [place] [phone] Simon Packer MD [address] [place] [phone] [facility] Otolaryngology (ENT) Start: 08-18-2024 [facility] Start: 08-10-2024 [facility] Start: 07-21-2024 COVID-19 Vaccine (5 - Moderna risk season) COVID-19 Vaccine (5 - Moderna risk ) [facility] Start: 07-09-2024 Anesthesia access central venous circulation ANESTH VASCULAR ACCESS [facility] Start: 07-09-2024 Rpr ctr vad w/subq port/livestock yard attendant ctr/prph insj sit REPAIR TUNNELED CV CATH [facility] Start: 07-09-2024 Patient discharge [facility] Start: 07-06-2024 Venous catheter care management [facility] Start: 07-06-2024 Venous catheter care management [facility] Start: 07-02-2024 Anesthesia access central venous circulation ANESTH VASCULAR ACCESS [facility] Start: 07-02-2024 Egd percutaneous placement gastrostomy tube EGD PLACE GASTROSTOMY TUBE [facility] Start: 07-02-2024 Insj tunneled ctr vad w/subq port age 6 yr/> INSERT TUNNELED CV CATH [facility] Start: 07-02-2024 Electrocardiographic procedure [facility] Start: 07-02-2024 Patient discharge [facility] Start: 06-29-2024 Patient referral [facility] Work Phone: Start: 05-26-2024 Patient referral [facility] Work Phone: Start: 04-16-2024 Welcome to Medicare Visit (G0402) Welcome to Medicare Visit (G0402) [facility] Start: 03-17-2024 COVID-19 Vaccine ( season) COVID-19 Vaccine ( season) [facility] Start: 07-05-2023 Hemoglobin A1c measurement Hemoglobin A1C [facility] Start: 12-17-2022 Anoscopy dx w/collj spec br/wa spx when prfrmd DIAGNOSTIC ANOSCOPY SPX [facility] Start: 05-15-2022 CORE NDL BX LNG/MED PERQ CORE NDL BX LNG/MED PERQ [facility] Start: 05-15-2022 Plain chest X-ray Chest Insp/Exp 2 View [facility] Start: 05-15-2022 XR Chest Views W inspiration and expiration [facility] Start: 05-15-2022 Following clinical pathway protocol [facility] Start: 05-15-2022 Catheterization of vein [facility] Start: 05-15-2022 Oxygen therapy [facility] Start: 05-15-2022 Patient discharge [facility] Start: 05-15-2022 Vital signs measurements [facility] Start: 09-29-2016 Abdominal aortic aneurysm screening [...] rase [Enzymatic activity/volume] in Serum or Plasma [facility] Albumin [Mass/volume ] in Serum or Plasma [facility] Alkaline phosphatase [Enzymatic activity/volume] in Serum or Plasma [facility] Anion gap in Serum or Plasma [facility] Bilirubin, total measurement [facility] BUN/Creatinine ratio [facility] Calcium [Mass/volume ] in Serum or Plasma [facility] Carbon dioxide, tota l [Moles/volume] in Central venous blood [facility] CBC W Auto Different ial panel - Blood [facility] CBC W Auto Different ial panel - Blood [facility] Comprehensive metabo lic 1999 panel - Serum or Plasma [facility] Comprehensive metabo lic 1999 panel - Serum or Plasma [facility] Creatinine [Mass/vol ume] in Serum or Plasma [facility] CT Chest [facility] CT Chest [facility] CT Chest [facility] Glucose [Mass/volume ] in Serum or Plasma [facility] Lactate dehydrogenas e measurement [facility] Magnesium measurement [facility] Measurement of renal function [facility] Patient Education [facility] Work Phone: Patient referral [facility] Work Phone: Potassium measurement [facility] Serum chloride measurement [facility] Serum inorganic phos phate measurement [facility] Sodium measurement [facility] T4 free measurement [facility] Thyroid stimulating hormone measurement [facility] Total protein measurement [facility] Urea nitrogen [Mass/ volume] in Serum or Plasma [facility] Immunizations Immunization Date Immunization Notes Care Provider [facility] 01-21-2024 Pneumococcal conjuga te 20 valent (PCV20), polysaccharide [id number] conjugate, adjuvant, PF (YKY=574) [facility] Work Phone: [facility] 01-07-2024 influenza, seasonal, injectable [facility] Work Phone: [facility] 01-07-2024 influenza virus vaccine, unspecified formulation Cindy Newell RN Work Phone: [facility] 01-24-2023 Respiratory syncytia l virus (RSV), vaccine, recombinant, protein subunit RSV prefusion F, adjuvant reconstituted, 0.5 mL, preservative free (GVG=542) Evie Markiv [employer] Work Phone: [facility] 01-03-2023 influenza, injectabl e, quadrivalent, contains preservative Evie Markiv [employer] Work Phone: [facility] 01-03-2023 Hemoglobin A1C Evie Markiv [employer] Work Phone: [facility] 12-22-2020 influenza, injectabl e, quadrivalent, contains preservative Evie Markiv [employer] Work Phone: [facility] 12-21-2019 influenza, injectabl e, quadrivalent, contains preservative Evie Markiv [employer] Work Phone: [facility] 08-20-2019 zoster vaccine recombinant Evie Markiv [employer] Work Phone: [facility] 06-19-2019 zoster vaccine recombinant Evie Markiv [employer] Work Phone: [facility] 12-16-2018 influenza, injectabl e, quadrivalent, contains preservative Evie Markiv [employer] Work Phone: [facility] 11-25-[address] Bulmaro Curtis Work Phone: [facility] 11-25-2018 influenza, seasonal, injectable, preservative free Evie Markiv [employer] Work Phone: [facility] 12-19-2016 influenza, high dose seasonal, preservative-free Evie Markiv [employer] Work Phone: [facility] 02-03-2009 novel [id number], preservative-free, injectable Evie Markiv [employer] Work Phone: [facility] Payers Date Payer Category Payer Dental --Stand Alone DENTAL-MEDI [employer] [id number] 2024 Unknown [id number] 2024 Medicare FFS MEDICARE [id number] 2024 Self-pay [id number] 2021 Commercial Indemnity [facility] [id number] 2021 Unknown [id number] 2016 Medicare [id number] 1950 Unknown [id number] 2.16.840.1.146738.3.579.2.7 32 -195 Unknown [id number] 2.16.840.1.828188.3.579.2.7 32 -195 Unknown [id number] 2.16.840.1.247937.3.579.2.7 32 -195 Unknown [id number] 2.16.840.1.254668.3.579.2.7 32 - Unknown [id number] 2.16.840.1.058408.3.579.2.7 32 1950 Unknown [id number] 2.16.840.1.240395.3.579.2.7 32 1950 Unknown [id number] 2.16.840.1.453826.3.579.2.7 32 1950 Unknown [id number] 2.16.840.1.584131.3.579.2.7 32 1950 Unknown [id number] 2.16.840.1.524835.3.579.2.7 32 1950 Unknown [id number] 2.16.840.1.040948.3.579.2.7 32 1950 Unknown [id number] 2.16.840.1.278677.3.579.2.7 32 195 Unknown [id number] 2.16.840.1.274683.3.579.2.7 32 1950 Unknown [id number] 2.16.840.1.099485.3.579.2.7 32 Unknown [id number] Unknown [id number] 2.16.840.1.694248.3.579.2.4 62 Unknown [id number] 2.16.840.1.810366.3.579.2.4 62 Unknown [id number] 2.16.840.1.431945.3.579.2.4 62 Unknown [id number] 2.16.840.1.178084.3.579.2.4 62 Unknown [id number] 2.16.840.1.679496.3.579.2.4 62 Unknown [id number] 2.16.840.1.715888.3.579.2.4 62 Unknown [id number] 2.16.840.1.514431.3.579.2.4 62 Unknown [id number] 2.16.840.1.969196.3.579.2.4 62 Unknown [id number] 2.16.840.1.827544.3.579.2.4 62 Unknown [id number] 2.16.840.1.203805.3.579.2.4 62 Unknown [id number] 2.16.840.1.197392.3.579.2.4 62 Unknown [id number] 2.16.840.1.767031.3.579.2.4 62 Unknown [id number] 2.16.840.1.483502.3.579.2.4 62 Unknown [id number] 2.16.840.1.471036.3.579.2.4 62 Unknown [id number] 2.16.840.1.563821.3.579.2.4 62 Unknown [id number] 2.16.840.1.831077.3.579.2.4 62 Unknown [id number] 2.16.840.1.042795.3.579.2.4 62 Unknown [id number] 2.16.840.1.043476.3.579.2.4 62 Unknown [id number] 2.16.840.1.149612.3.579.2.4 62 Unknown [id number] 2.16.840.1.984851.3.579.2.4 62 Unknown [id number] 2.16.840.1.112501.3.579.2.4 62 Unknown [id number] 2.16.840.1.533427.3.579.2.4 62 Unknown [id number] 2.16.840.1.928680.3.579.2.4 62 Unknown [id number] 2.16.840.1.127590.3.579.2.4 62 Unknown [id number] 2.16.840.1.307283.3.579.2.4 62 Unknown [id number] 2.16.840.1.716154.3.579.2.4 62 Unknown [id number] 2.16.840.1.798591.3.579.2.4 62 Unknown [id number] 2.16.840.1.833382.3.579.2.4 62 Unknown [id number] 2.16.840.1.466767.3.579.2.4 62 Unknown [id number] 2.16.840.1.364279.3.579.2.4 62 Unknown [id number] 2.16.840.1.155191.3.579.2.4 62 Unknown [id number] 2.16.840.1.610744.3.579.2.4 62 Unknown [id number] 2.16.840.1.320911.3.579.2.4 62 Unknown [id number] 2.16.840.1.119423.3.579.2.4 62 Unknown [id number] 2.16.840.1.725294.3.579.2.4 62 Unknown [id number] 2.16.840.1.544695.3.579.2.4 62 Unknown [id number] 2.16.840.1.838216.3.579.2.4 62 Unknown [id number] 2.16.840.1.030551.3.579.2.4 62 Unknown [id number] 2.16.840.1.080664.3.579.2.4 62 Unknown [id number] 2.16.840.1.246209.3.579.2.4 62 Social History Date Type Detail Facility Start: 06-07-2021 End: 03-14-2023 Tobacco smoking status NHIS Unknown if ever smoked [facility] Start: 05-04-2019 Occasional [facility] Start: 05-04-2019 None [facility] Start: 05-04-2019 Spouse/ Significant Other [facility] Start: 05-04-2019 Cigarettes [facility] Start: 1950 Sex Assigned At Male [facility] Start: 04-28-2024 End: 06-22-2024 Tobacco smoking status NHIS Ex-smoker (finding) [facility] Start: 04-16-2024 End: 07-02-2024 Sex Male (finding) [facility] History of tobacco use [facility] use [facility] Start: 04-28-2024 Tobacco use and exposure Smokeless tobacco non-user [facility] Start: 04-29-2024 End: 05-11-2024 Alcoholic beverage intake Ex-drinker (finding) [facility] Start: 04-28-2024 End: 04-29-2024 History of Social function [facility] Start: 04-28-2024 End: 04-29-2024 [facility] Utilities [facility] In the past 12 month s has the electric, gas, oil, or water [employer] threatened to shut off services in your home? No [facility] Within the last year , have you been afraid of your partner or ex-partner? No [facility] Do you belong to any clubs or organizations such as tenriism groups, unions, fraternal or athletic groups, or [...] 1950 Sex assigned at Not on file [facility] Start: 04-29-2024 End: 05-11-2024 Details of drug misuse behavior Misused drugs in past (finding) [facility] Medical Equipment Procedure Code Equipment Code Equipment Origin al Text Equipment Identifier Dates Insertion, vascular access port ([id number]) Vascular port/catheter ()[id number] FDA Start: 07-02-2024 Insertion, vascular access port ([id number]) Vascular port/catheter ()[id number] FDA Start: 07-09-2024 EGD, with monitored anesthesia care Gastrostomy tube kit, medicated ()[id number] FDA Start: 07-02-2024 Goals Date Patient Goal Desired Activity /State Mental Status Date Assessment Result Facility 07-31-2024 Cognitive function Voice/Name [facility] Work Phone: 07-09-2024 Cognitive function Voice/Name [facility] Work Phone: 07-02-2024 Cognitive function Level Of Cons ciousness Awake;Alert;Appropriate [facility] Work Phone: 07-02-2024 Cognitive function Voice/Name [facility] Work Phone: 05-15-2022 Cognitive function Awake;Alert;Appropriat e [facility] Work Phone: Clinical Notes 04-28-2024 to 08-18-2024 [...] Oncologist. He acknowledges understanding. Cindy Newell RN [facility] Work Phone: 08-18-2024 Miscellaneous Notes Formattin g [...] Cindy Newell RN documented in this encounter [facility] 08-18-2024 Progress note [facility] 08-18-2024 Progress note Note Date/Time August 18, 2024 9:13am [facility] [address] [address] OFFICE VISIT Date of Service: 08/18/24 0834 MR#: [id number] Acct: [id number] Name: ROBERT RON Rep #: [id number] : 1950 From: Franco Pérez MD Age/Sex: 73/M Location: [facility] Status: Signed HPI Subjective Date of [...] level III node. He was referred to [facility], had ENT evaluation with biopsy on 05/14/2024, [...] bleed hasimproved after cauterization . [facility] Medical History Encounter for education Wears glasses [...] mg 1 - 2 tab PO Q6H SD N PRN pain 06/22/24 08/18/24 History tablet [...] applicable) CC: Dr. Bulmaro Curtis MD ~ [facility] Work Phone: 1(399) 308-658805-21-2025 Progress [facility] [address] [place] [address] OFFICE VISIT Date of Service: 08/12/24 1302 MR#: [id number] Acct: [id number] Name: ROBERT RON Rep #: [id number] : 1950 From: Cipriano Vinita delgado DO Age/Sex: 73/M Location[place] [facility] Status: Signed Intake Vital Signs 06/29/24 10:27 [...] mg 1 - 2 tab PO Q6H SD N PRN pain 06/22/24 08/12/24 History tablet [...] mg 1 - 2 tab PO Q6H SD N PRN pain 06/22/24 Unknown History tablet [...] any time. ? 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 08/12/24 1326 DO> Date _ Cipriano Jhaveriignkirill Signature: Date (if applicable) CC: ~ [facility]05-21-2025 Progress note Author Cipriano Layne [facility] Note Date/Time August 12, 2024 1:26p m [facility] [place] [address] OFFICE VISIT Date of Service: 08/12/24 1302 MR#: [id number] Acct: [id number] Name: ROBERT RON Rep #: [id number] : 1950 From: Cipriano delgado DO Age/Sex: 73/M Location: [facility] Status: Signed Intake Vital Signs 06/29/24 10:27 [...] mg 1 - 2 tab PO Q6H SD N PRN pain 06/22/24 08/12/24 History tablet [...] mg 1 - 2 tab PO Q6H SD N PRN pain 06/22/24 Unknown History tablet [...] any time. ? 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 He was referred to [facility], had ENT evaluation with biopsy on 05/14/2024, [...] getting L sided nasal bleed. [facility] Medical History Encounter for education Wears glasses [...] mg 1 - 2 tab PO Q6H SD N PRN pain 06/22/24 08/10/24 History tablet [...] applicable) CC: Dr. Bulmaro Curtis MD ~ [facility]05-19-2025 Progress note Author Franco Pérez [facility] Note Date/Time August 10, 2024 9:26a m [facility] Cancer [address] [address] OFFICE VISIT Date of Service: 08/10/24 0845 MR#: [id number] Acct: [id number] Name: ROBERT RON Rep #: [id number] : 1950 From: Franco Pérez MD Age/Sex: 73/M Location: [facility] Status: Signed HPI Subjective Date of Service [...] level III node. He was referred to [facility], had ENT evaluation with biopsy on 05/14/2024, [...] getting L sided nasal bleed. [facility] Medical History Encounter for education Wears glasses [...] mg 1 - 2 tab PO Q6H SD N PRN pain 06/22/24 08/10/24 History tablet [...] applicable) CC: Dr. 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 MODERATE NEEDS TEACHER recommended MBSS to determine baseline swallow function [...] cup: Result: 2= enter airway/above vocal folds/ejected [place] Thick Liquid via large single sip: cup: [...] Status Active ST Patient: Active Contact Information [facility] Speech Therapy:: Rosalia Pollard M.A. CCC-MODERATE NEEDS TEACHER? Speech-Language Pathologist?? [facility] [address] [place] [address]? [email or web address]?? [phone] 07/14/24 1524 SAFIA Vallejo-MODERATE NEEDS TEACHER> Date/Time Rosalia Pollard M.A. CCC-MODERATE NEEDS TEACHER Co-Signature Required for all Medicare patients Date/Time Co-Signature CC: ~ [facility]04-17-2025 History and physical note Author Daniel Sánchez [facility] Note Date/Time July 09, 2024 10: 56am [facility] Health System Medical Records Department [address] [place] [address] History & Physical Exam 07/09/24 1054 MR#: [id number] Acct: [id number] Name: ROBERT RON Rep #:[id number] : 1950 73 From: Daniel Sánchez MD PCP: Dr. Bulmaro Curits MD Status:REG S DC Location: [place] [address]-1 HPI - General General Date of Admission: 07/09/24 Date of Service: 07/09/24 Chief Complaint: non functional medport HPI Narrative ROBERT RON, is a 73 M who presents for revision of medport. It was placed about a week ago but oncology having issues with it functioning properly. xray seems to suggest a possible kink in tubing [facility] Medical History Encounter for education Wears glasses [...] mg 1 - 2 tab PO Q6H SD N PRN pain 06/22/24 Unknown History tablet [...] Sánchez MD; Dr. Bulmaro Curtis MD~ Signed [facility] Work Phone: 1(565) 543-195404-17-2025 Consult note Author Jovon [facility] Note Date/Time July 09, 2024 10: 48am [facility] Medical Records Department [address] [place] [address] Pre-Anesthesia Evaluation 07/09/24 1028 MR#: [id number] Acct: [id number] Name: ROBERT RON Rep #:[id number] : 1950 73 From: Jovon Martin MD PCP: Dr. Bulmaro Curtis MD Status:REG S DC Y Race: C Location: [place] [address] ASA Classification* ASA Classification ASA Classification: 3 [...] CHEST MEDIPORT Anesthesia History Anesthesia History - conventional mortgage underwriter: Anesthesia History - conventional mortgage underwriter Hx Hospitalization Yes 07/07/24 10:45 Any Problems [...] coffee at 8:15 AM.) PONV PONV - conventional mortgage underwriter: PONV - conventional mortgage underwriter Female No 07/07/24 10:45 HX of Motion [...] 07/09/24 10:02 Respiratory Assessment Respiratory Assessment - conventional mortgage underwriter: Respiratory Tract Infection Hx - conventional mortgage underwriter Hx Respiratory Tract Infection No 07/07/24 10:45 STOP Sleep Apnea STOP Sleep Apnea - conventional mortgage underwriter: STOP Sleep Apnea - conventional mortgage underwriter Hx Hypertension Yes 07/07/24 10:45 Hx Sleep [...] Tobacco Use History Tobacco Use History - conventional mortgage underwriter: Tobacco Use History - conventional mortgage underwriter Tobacco Use Smoking Status Former smoker 07/07/24 10:45 Hx Tobacco Use Yes 07/07/24 10:45 Years Smoking Packs Smoked per Day Smoking Cessation Date was Yes - quit smoking within 15 07/07/24 10:45 within the last 15 years years Hx Smoking Cessation Date 04/03/19 07/07/24 10:45 Hx Smoking Cessation Counseling Hematologic Medial History Hematologic Hx - conventional mortgage underwriter: Hematologic 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 Hx of Blood Transfusion No 07/07/24 10:45 [...] confused, unrespo /Reproduction History /Reproductive History - conventional mortgage underwriter: /Reproductive Hx- conventional mortgage underwriter Hx Now No 07/07/24 10:45 Gestational Age (in weeks): EDC: Hx Hx Para Hx Section SAB No 07/07/24 10:45 Active Medications Active Medications: Current Medications Generic Name Dose Route Start Last Admin Trade Name Freq PRN Reason Stop Dose Admin Cefazolin Sodium 3 gm/ N/A 30 mls @ 600 mls/hr 07/09/24 11:30 IV 07/09/24 11:32 INTRAOP ONE [facility] Medical History Encounter for education Wears glasses [...] mg 1 - 2 tab PO Q6H SD N PRN pain 06/22/24 Unknown History tablet [...] MD Cosigner Signature: Date CC: ~ Signed [facility] Work Phone: 1(427) 701-213604-17-2025 Radiology Diagnostic study note [facility] Imaging Services [address] [place], [place] [address] CXR for Line Placement MR#: [id number] Acct: [id number] Name: ROBERT RON Rep #: [id number] : 1950 M 73 From: Iván Ramírez MD PCP: Dr. Bulmaro Curtis MD Status: REG S DC Study:CXR for Line Placement Date of Exam: 07/09/24 Exam# [id number] Ordering Dr: St mary Sánchez MD EXAM: [...] of the left brachiocephalic vein. Reading Location: [place] [address] CC: Dr. Daniel Sánchez MD; Dr. Bulmaro Curtis MD ~ Hand Tapper: Signed [facility]04-17-2025 Consult note [facility] Medical Records Department [address] [place] [address] Anesthesia Postop Eval I 07/09/24 1221 MR#: [id number] Acct: [id number] Name: ROBERT RON Rep #:[id number] : 1950 73 From: Isaiah rodriguez PROVINCE ARCHIVIST PCP: Dr. Bulmaro Curtis MD Status:REG S DC Y Race: C Location: [place] [address] Anesthesia: Postop Eval I Current Vital Signs [...] Eval 1 completed: Yes 07/09/24 1224 ero PROVINCE ARCHIVIST> Date _ Isaiah Bravoo PROVINCE ARCHIVIST Cosigner Signature: Date CC: ~ Signed [facility]04-17-2025 Discharge summary [facility] Medical Records Department [address] [place] [address] Instructions for Home/Discharge Instructions 07/09/24 1207 MR#: [id number] Acct: [id number] Name: ROBERT RON Rep #:[id number] : [...] Provider: Bulmaro Curtis Chi Instructions Print Language: Anguillan Discharge Orders/Prescriptions Prescriptions: Continued rivaroxaban 15 mg [...] CC: Dr. Bulmaro Curtis MD ~ Signed [facility]04-17-2025 History and physical note [facility] Medical Records Department [address] [place] [address] History & Physical Exam 07/09/24 1054 MR#: [id number] Acct: [id number] Name: ROBERT RON Rep #:[id number] : 1950 73 From: Daniel Sánchez MD PCP: Dr. Bulmaro Chi Ever, MD Status:REG S DC Location: [facility] HPI - General General Date of Admission: 07/09/24 Date of Service: 07/09/24 Chief Complaint: non functional medport HPI Narrative ROBERT RON, is a 73 M who presents for revision of medport. It was placed about a week ago but oncology having issues with it functioning properly. xray seems to suggest a possible kink in tubing [facility] Medical History Encounter for education Wears glasses [...] mg 1 - 2 tab PO Q6H SD N PRN pain 06/22/24 Unknown History tablet [...] Sánchez MD; Dr. Bulmaro Curtis MD~ Signed [facility]04-17-2025 [facility] Consult note [facility] Medical Records Department [address] [place] [address] Pre-Anesthesia Evaluation 07/09/24 1028 MR#: [id number] Acct: [id number] Name: ROBERT RON Rep #:[id number] : 1950 73 From: Jovon Martin MD PCP: Dr. Bulmaro Curtis MD Status:REG S DC Y Race: C Location: [place] [address] ASA Classification* ASA Classification ASA Classification: 3 [...] CHEST MEDIPORT Anesthesia History Anesthesia History - conventional mortgage underwriter: Anesthesia History - conventional mortgage underwriter Hx Hospitalization Yes 07/07/24 10:45 Any Problems [...] coffee at 8:15 AM.) PONV PONV - conventional mortgage underwriter: PONV - conventional mortgage underwriter Female No 07/07/24 10:45 HX of Motion [...] 07/09/24 10:02 Respiratory Assessment Respiratory Assessment - conventional mortgage underwriter: Respiratory Tract Infection Hx - conventional mortgage underwriter Hx Respiratory Tract Infection No 07/07/24 10:45 STOP Sleep Apnea STOP Sleep Apnea - conventional mortgage underwriter: STOP Sleep Apnea - conventional mortgage underwriter Hx Hypertension Yes 07/07/24 10:45 Hx Sleep [...] Tobacco Use History Tobacco Use History - conventional mortgage underwriter: Tobacco Use History - conventional mortgage underwriter Tobacco Use Smoking Status Former smoker 07/07/24 10:45 Hx Tobacco Use Yes 07/07/24 10:45 Years Smoking Packs Smoked per Day Smoking Cessation Date was Yes - quit smoking within 07/07/24 10:45 within the last 15 years years Hx Smoking Cessation Date 04/03/19 07/07/24 10:45 Hx Smoking Cessation Counseling Hematologic Medial History Hematologic Hx - conventional mortgage underwriter: 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 Hx of Blood Transfusion No 07/07/24 10:45 [...] confused, unrespo /Reproduction History /Reproductive History - conventional mortgage underwriter: /Reproductive Hx- conventional mortgage underwriter Hx Now No 07/07/24 10:45 Gestational Age (in weeks): EDC: Hx Hx Para Hx Section SAB No 07/07/24 10:45 Active Medications Active Medications: Current Medications Generic Name Dose Route Start Last Admin Trade Name Freq PRN Reason Stop Dose Admin Cefazolin Sodium 3 gm/ N/A 30 mls @ 600 mls/hr 07/09/24 11:30 IV 07/09/24 11:32 INTRAOP ONE [facility] Medical History Encounter for education Wears glasses [...] mg 1 - 2 tab PO Q6H SD N PRN pain 06/22/24 Unknown History tablet [...] MD Cosigner Signature: Date CC: ~ Signed [facility]04-14-2025 Radiology Diagnostic study note [facility] Imaging Services [address] [place] [address] CXR for Line Placement MR#: [id number] Acct: [id number] Name: ROBERT RON Rep #: [id number] : 1950 M 73 From: Sean Ochoa DO PCP: Dr. Bulmaro Curtis MD Status: [facility] C Study:CXR for Line Placement Date of Exam: 07/06/24 Exam# [id number] Ordering Dr: Elicia Yin PA-C EXAM: PA [...] of the left lower lobe. Reading Location: [id number] CC: COY Yin; Dr. Bulmaro Curtis MD ~ Hand Tapper: Signed [facility]04-10-2025 Consult note Author Jovon Martin [facility] Note Date/Time July 02, 2024 1:0 0pm [facility] Medical Records Department [address] [place] [address] Anesthesia Postop Eval II 07/02/24 1259 MR#: [id number] Acct: [id number] Name: ROBERT RON Rep #:[id number] : 1950 73 From: Jovon Martin MD PCP: Dr. Bulmaro Curtis MD Status:REG S DC Y Race: C Location: [place] [address] Anesthesia Postop Eval I Sum Postop Eval Completion status Anesthesia document: Postop Eval 1 completed: No Anesthesia Postop Eval I Summary Anesthesia Postop Eval I Summary: Anesthesia Postop Eval I: Assessment Summary Airway patent Yes 07/02/24 12:32 PROVINCE ARCHIVIST.MEDM Spontaneous unlabored Yes 07/02/24 12:32 PROVINCE ARCHIVIST.MEDM respirations Mental status Awake 07/02/24 12:32 PROVINCE ARCHIVIST.MEDM nausea No 07/02/24 12:32 PROVINCE ARCHIVIST.MEDM Vomiting No 07/02/24 12:32 PROVINCE ARCHIVIST.MEDM Anesthesia Postop Eval I: Fluid Summary Crystalloid volume administer 800 07/02/24 12:32 PROVINCE ARCHIVIST.MEDM (ml) Colloids volume administered ( ml) Blood Product volume administered (ml) Total IV fluid infused 800 07/02/24 12:32 PROVINCE ARCHIVIST.MEDM Anesthesia Postop Eval I: Summary Notes Anesthesia Complication No 07/02/24 12:32 PROVINCE ARCHIVIST.MEDM Anesthesia Complication Comment: Post-operative progress note Anesthesia: Postop Eval II Evaluation Mental status: Awake and Calm Pain Level: 1 nausea: No Vomiting: No Complications Anesthesia Complication: No 07/02/24 1300 <Electronically signed by Jovon dove MD> Date _ Jovon Martin MD Cosigner Signature: Date CC: ~ Signed [facility] Work Phone: 1(260) 574-688604-10-2025 Discharge summary Author Daniel Sánchez [facility] Note Date/Time July 02, 2024 12: 33pm [facility] Medical Records Department [address] [place] [address] Instructions for Home/Discharge Instructions 07/02/24 1229 MR#: [id number] Acct: [id number] Name: ROBERT RON Rep #:[id number] : [...] Provider: Bulmaro Curtis Chi Instructions Print Language: Anguillan Discharge Orders/Prescriptions Prescriptions: New oxycodone-acetaminophen [Percocet] 5-325 [...] CC: Dr. Bulmaro Curtis MD ~ Signed [facility] Work Phone: 1(935) 597-867604-10-2025 Consult note Author Newton Steen [facility] Note Date/Time July 02, 2024 12: 32pm [facility] Medical Records Department [address] [place] [address] Anesthesia Postop Eval I 07/02/24 1232 MR#: [id number] Acct: [id number] Name: ROBERT RON NAEL Rep #:[id number] : 1950 73 From: Newton Steen CRNA PCP: Dr. Bulmaro Curtis MD Status:REG S DC Y Race: C Location: [place] [address] Anesthesia: Postop Eval I Current Vital Signs [...] CRNA Cosigner Signature: Date CC: ~ Signed [facility] Work Phone: 1(748) 714-682204-10-2025 Radiology Diagnostic study note [facility] Imaging Services [address] [place] [address] CXR for Line Placement MR#: [id number] Acct: [id number] Name: ROBERT RON Rep #: [id number] : 1950 M 73 From: Albania Marks MD PCP: Dr. Bulmaro Curtis MD Status: REG S DC Study:CXR for Line Placement Date of Exam: 07/02/24 Exam# [id number] Ordering Dr: St mayr Sánchez MD EXAM: AP UPRIGHT PORTABLE CHEST [...] 2. No active cardiopulmonary disease. Reading Location: [place] [address] CC: Dr. Daniel Sánchez MD; Dr. Bulmaro Curtis MD ~ Hand Tapper: Signed [facility]04-10-2025 Consult note [facility] Medical Records Department [address] [place] [address] Anesthesia Postop Eval II 07/02/24 1259 MR#: [id number] Acct: [id number] Name: ROBERT RON Rep #:[id number] : 1950 73 From: Jovon Martin MD PCP: Dr. Bulmaro Curtis MD Status:REG S DC Y Race: C Location: [place] [address] Anesthesia Postop Eval I Sum Postop Eval Completion status Anesthesia document: Postop Eval 1 completed: No Anesthesia Postop Eval I Summary Anesthesia Postop Eval I Summary: Anesthesia Postop Eval I: Assessment Summary Airway patent Yes 07/02/24 12:32 PROVINCE ARCHIVIST.MEDM Spontaneous unlabored Yes 07/02/24 12:32 PROVINCE ARCHIVIST.MEDM respirations Mental status Awake 07/02/24 12:32 PROVINCE ARCHIVIST.MEDM nausea No 07/02/24 12:32 PROVINCE ARCHIVIST.MEDM Vomiting No 07/02/24 12:32 PROVINCE ARCHIVIST.MEDM Anesthesia Postop Eval I: Fluid Summary Crystalloid volume administer 800 07/02/24 12:32 PROVINCE ARCHIVIST.MEDM (ml) Colloids volume administered ( ml) Blood Product volume administered (ml) Total IV fluid infused 800 07/02/24 12:32 PROVINCE ARCHIVIST.MEDM Anesthesia Postop Eval I: Summary Notes Anesthesia Complication No 07/02/24 12:32 PROVINCE ARCHIVIST.MEDM Anesthesia Complication Comment: Post-operative progress note Anesthesia: Postop Eval II Evaluation Mental status: Awake and Calm Pain Level: 1 nausea: No Vomiting: No Complications Anesthesia Complication: No 07/02/24 1300 la > Date _ Jovon Anderson Signature: Date CC: ~ Signed [facility]04-10-2025 Procedure note [facility] Medical Records Department [address] [place] [address] Operative Report 07/02/24 1233 MR#: [id number] Acct: [id number] Name: ROBERT RON Rep #:[id number] : 1950 73 From: Daniel Sánchez MD PCP: Dr. Bulmaro Curtis MD Status:REG S [place] Location: [place] [address] Problems Associated Problem List Diagnoses (1) Primary squamous cell carcinoma of base of tongue: Multi Select Codes Respiratory/Cardiovascular Resp/Cardiovascular CPT Codes: 98082 Insert tunneled cv cath Digestive Digestive CPT Codes: [address] gastrostomy tube Operative Report (Standard) Operative Information Date of Procedure: 07/02/24 Pre-Operative Diagnosis: Tongue cancer Post-Operative Diagnosis: Same Surgery/Procedure Performed: 1. Left subclavian Mediport placement with C arm 2. EGD 3. Percutaneous endoscopic gastrostomy tube placement (PEG) patch sander: No Type of Anesthesia: General and Local [...] apply: Implanted device Implanted device details: 8 Slovak PowerPort Estimated Blood Loss: 5 mL Specimen [...] Sánchez MD; Dr. Bulmaro Curtis MD~ Signed [facility]04-10-2025 Discharge summary [facility] Medical Records Department [address] [place] [address] Instructions for Home/Discharge Instructions 07/02/24 1229 MR#: [id number] Acct: [id number] Name: ROBERT RON Rep #:[id number] : 1950 73 From: Daniel Sánchez MD PCP: Dr. Bulmaro Crutis MD Status:REG S DC Discharge Instructions Diet [...] Provider: Bulmaro Curtis Chi Instructions Print Language: Anguillan Discharge Orders/Prescriptions Prescriptions: New oxycodone-acetaminophen [Percocet] 5-325 [...] CC: Dr. Bulmaro Curtis MD ~ Signed [facility]04-10-2025 Consult note [facility] Medical Records Department [address] [place] [address] Anesthesia Postop Eval I 07/02/24 1232 MR#: [id number] Acct: [id number] Name: ROBERT RON Rep #:[id number] : 1950 73 From: Newton Steen CRNA PCP: Dr. Bulmaro Curtis MD Status:REG S DC Y Race: C Location: [place] [address] Anesthesia: Postop Eval I Current Vital Signs [...] Eval 1 completed: No 07/02/24 1232 ds PROVINCE ARCHIVIST> Date _ Newton Steen PROVINCE ARCHIVIST Cosigner Signature: Date CC: ~ Signed [facility]04-10-2025 Consult note Author Jovon Martin [facility] Note Date/Time July 02, 2024 10: 13am [facility] Medical Records Department [address] [place] [address] Pre-Anesthesia Evaluation 07/02/24 0948 MR#: [id number] Acct: [id number] Name: ROBERT RON Rep #:[id number] : 1950 73 From: Jovon Martin MD PCP: Dr. Bulmaro Curtis MD Status:REG S DC Y Race: C Location: [place] [address] ASA Classification* ASA Classification ASA Classification: 3 [...] tube placement Anesthesia History Anesthesia History - conventional mortgage underwriter: Anesthesia History - conventional mortgage underwriter Hx Hospitalization No 06/22/24 17:28 Any Problems [...] water at 7:10 AM.) PONV PONV - conventional mortgage underwriter: PONV - conventional mortgage underwriter Female No 06/22/24 17:28 HX of Motion [...] 07/02/24 08:54 Respiratory Assessment Respiratory Assessment - conventional mortgage underwriter: Respiratory Tract Infection Hx - conventional mortgage underwriter Hx Respiratory Tract Infection No 06/22/24 17:28 STOP Sleep Apnea STOP Sleep Apnea - conventional mortgage underwriter: STOP Sleep Apnea - conventional mortgage underwriter Hx Hypertension Yes: PER PT , CONTROLLED [...] Tobacco Use History Tobacco Use History - conventional mortgage underwriter: Tobacco Use History - conventional mortgage underwriter Tobacco Use Smoking Status Former smoker 06/22/24 17:28 Hx Tobacco Use No 06/22/24 17:28 Years Smoking Packs Smoked per Day Smoking Cessation Date was Yes - quit smoking within 15 06/22/24 17:28 within the last 15 years years Hx Smoking Cessation Date 05/05/19 06/22/24 17:28 Hx Smoking Cessation Counseling Hematologic Medial History Hematologic Hx - conventional mortgage underwriter: 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 Hx of Blood Transfusion No 06/22/24 17:28 [...] confused, unrespo /Reproduction History /Reproductive History - conventional mortgage underwriter: /Reproductive Hx- conventional mortgage underwriter Hx Now Gestational Age (in weeks): EDC: [...] mg 1 - 2 tab PO Q6H SD N PRN pain 06/22/24 Unknown History tablet [...] MD Cosigner Signature: Date CC: ~ Signed [facility] Work Phone: 1(152) 600-305104-10-2025 History and physical note Author Daniel Sánchez [facility] Note Date/Time July 02, 2024 9:4 4am [facility] Medical Records Department [address] [place] [address] History & Physical Exam 07/02/24941 MR#: [id number] Acct: [id number] Name: ROBERT RON Rep #:[id number] : 1950 73 From: Daniel Sánchez MD PCP: Dr. Bulmaro Curtis MD Status:REG S TX Location: [place] [address] HPI - General General Date of Admission: [...] and port to be placed. [facility] Medical History (Updated 06/29/24 @ 10:55 by Ashly Laguerre NETWORKING TECHNICIAN, NETWORKING TECHNICIAN-C) Encounter for education Wears glasses Edentulous High [...] mg 1 - 2 tab PO Q6H SD N PRN pain 06/22/24 Unknown History tablet [...] Sánchez MD; Dr. Bulmaro Curtis MD~ Signed [facility] Work Phone: 1(718) 518-382004-10-2025 Consult note [facility] Medical Records Department [address] [place] [address] Pre-Anesthesia Evaluation 07/02/2448 MR#: [id number] Acct: [id number] Name: ROBERT RON Rep #:[id number] : 1950 73 From: Jovon Martin MD PCP: Dr. Bulmaro Curtis MD Status:REG S DC Y Race: C Location: [place] [address] ASA Classification* ASA Classification ASA Classification: 3 [...] tube placement Anesthesia History Anesthesia History - conventional mortgage underwriter: Anesthesia History - conventional mortgage underwriter Hx Hospitalization No 06/22/24 17:28 Any Problems [...] water at 7:10 AM.) PONV PONV - conventional mortgage underwriter: PONV - conventional mortgage underwriter Female No 06/22/24 17:28 HX of Motion [...] 07/02/24 08:54 Respiratory Assessment Respiratory Assessment - conventional mortgage underwriter: Respiratory Tract Infection Hx - conventional mortgage underwriter Hx Respiratory Tract Infection No 06/22/24 17:28 STOP Sleep Apnea STOP Sleep Apnea - conventional mortgage underwriter: STOP Sleep Apnea - conventional mortgage underwriter Hx Hypertension Yes: PER PT , CONTROLLED [...] Tobacco Use History Tobacco Use History - conventional mortgage underwriter: Tobacco Use History - conventional mortgage underwriter Tobacco Use Smoking Status Former smoker 06/22/24 17:28 Hx Tobacco Use No 06/22/24 17:28 Years Smoking Packs Smoked per Day Smoking Cessation Date was Yes - quit smoking within 15 06/22/24 17:28 within the last 15 years years Hx Smoking Cessation Date 05/05/19 06/22/24 17:28 Hx Smoking Cessation Counseling Hematologic Medial History Hematologic Hx - conventional mortgage underwriter: Hematologic 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 Hx of Blood Transfusion No 06/22/24 17:28 [...] confused, unrespo /Reproduction History /Reproductive History - conventional mortgage underwriter: /Reproductive Hx- conventional mortgage underwriter Hx Now Gestational Age (in weeks): EDC: [...] mg 1 - 2 tab PO Q6H SD N PRN pain 06/22/24 Unknown History tablet [...] MD Cosigner Signature: Date CC: ~ Signed [facility]04-10-2025 History and physical note [facility] Medical Records Department [address] [place] [address] History & Physical Exam 07/02/24 0942 MR#: [id number] Acct: [id number] Name: ROBERT RON Rep #:[id number] : 1950 73 From: Daniel Sánchez MD PCP: Dr. Bulmaro Curtis MD Status:REG S TX Location: [place] [address] HPI - General General Date of Admission: [...] and port to be placed. [facility] Medical History (Updated 06/29/24 @ 10:55 by Ashly Laguerre NETWORKING TECHNICIAN, NETWORKING TECHNICIAN-C) Encounter for education Wears glasses Edentulous High [...] mg 1 - 2 tab PO Q6H SD N PRN pain 06/22/24 Unknown History tablet [...] Sánchez MD; Dr. Bulmaro Curtis MD~ Signed [facility]04-10-2025 [facility]03-20-2025 History of Present illness Narrative* Franco [...] the resident's note. Franco Sanchez DMD * Delbetr Molina DMD - 06/11/2024 9:43 AM EDT ORAL SURGERY PROCEDURE ROOM NOTE [facility] Surgical Product(s): Routine extraction of all remaining [...] was obtained: yes Pre-op Diagnosis: Postoperative pain [842967] Chronic periodontal disease Caries PROCEDURE TIME OUT [...] Home Bev Mckeon DDS documented in this [id number] NoteORAL SURGERY PROCEDURE ROOM NOTE [facility] Surgical Product(s): Routine extraction of all remaining teeth (3,4,5,6,7,8,9,11,12,13,14,18,20,21,22,23,24,25,26,27,28,29,31,32) , alveoloplasty of x4 quadrants (UR/LR/LL/UL) and bilateral mandibular joaquim (LL/LR) removal under local anesthesia. Procedure done as clearance prior to chemo/radiation. PMH: Reviewed, no change. Antibiotic prophylaxis indicated/taken: no Discussed risks, benefits, and alternatives of treatment. All of the patient's questions were answered, and informed consent was obtained: yes Pre-op Diagnosis: Postoperative pain [208694] Chronic periodontal disease Caries PROCEDURE TIME OUT [...] Minimal (<5 ml) Disposition: Home Dari Diaz [facility]03-19-2025 NoteReached patient informed him medical clearance appt, no dental insurance on file, he will receive a bill, for our services per my school crossing guard supervisor, gave him the number to financial assistance to see if they can assist , he said thank you and will reach out now.[employer]03-19-2025 NoteReached patient informed him medical clearance appt, no dental insurance on file, he will receive a bill, for our services per my school crossing guard supervisor, gave him the number to financial assistance to see if they can assist , he said thank you and will reach out now.[facility] [employer]03-19-2025 NoteSituation: OS Procedure Insurance Ques Background: Pt is wanting to know if office submitted to insurance company and if they will be paying copay? Assessment: please contact pt to discuss Recommendation: Telephone Information: [facility] Alternative Energy [id number] Evaluation note* Diagnosis Onset Date Resolution Status [...] base of tongue chronic July 02 8:20am [facility] Work Phone: 1(267) 595-870203-04-2025 Evaluation note* Diagnosis Onset Date Resolution Status [...] venous access port acute July 09 9:13am [facility] Work Phone: 1(740) 428-690403-04-2025 Evaluation note* Diagnosis Onset Date Resolution Status [...] base of tongue chronic July 15 8:43am [facility] Work Phone: 1(160) 425-745703-04-2025 Evaluation note* Diagnosis Onset Date Resolution Status [...] of tongue chronic August 03, 2024 7:39am [facility] Work Phone: 1(325) 431-604703-04-2025 Evaluation note* Diagnosis Onset Date Resolution Status [...] of tongue chronic August 10, 2024 7:39am [facility] Work Phone: [phone]) [phone] Evaluation note* Diagnosis Onset Date Resolution Status [...] of tongue chronic August 12, 2024 12:47pm [facility] [employer] [facility] Work Phone: 1([phone]) 897-316503-04-2025 Evaluation note* Diagnosis Onset Date Resolution Status [...] of tongue chronic August 18, 2024 7:38am [facility] Work Phone: 1([phone]) 183-865203-04-2025 Evaluation note* Diagnosis Onset Date Resolution Status [...] of tongue chronic August 19, 2024 1:10pm [place] [employer] [facility] Work Phone: [phone]) [phone] Evaluation note* Diagnosis Onset Date Resolution Status [...] base of tongue chronic September 15 1:54pm [facility] Work Phone: 1([phone]) 878-126802-24-2025 NoteSamy Cindy High from [facility] said we sent them a referral for this pt but she needs information. She said notes are on appointment notes but that she needs Pathology, Op notes and Ct scans sent separately. You can contact her at [phone] [facility] Note SPEECH LANGUAGE PATHOLOGY OUTPATIENT SWALLOW EVALUATION [...] of Onset: 05/08/2024 Speech Medical History: Robert oRn is a 73 year old male with PMH significant for COPD, WALE on CPAP, hx of PE (2019) hx of left parotidectomy about 10 yrs (Dr. Dubois) who presents today, 05/13/2024, at the [facility] for evaluation of right neck mass, parotid lesion and base of tongue tumor. 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 Plan: chemoradiation in [place], likely PEG placement SUBJECTIVE: Patient subjective/goals: Pt arrives early and is seen in conjunction with ENT. He is cooperative throughout. Pain: pt reports intermittent right lateral neck pain, associated with enlarged lymph nodes Social History: lives with near [place] Occupational History: retired, worked at [employer] OBJECTIVE: SWALLOWING PATIENT REPORT Onset: pt reports [...] with voicing more recently, but no pain Leary Swallow Protocol: State: alert; maintained across session [...] to consult with his oncology team in [place] about MODERATE NEEDS TEACHER's associated with their team. He is welcome to return to [facility] for speech therapy, and is advised that I'd probably see him approximately 4 times during his chemoradiation, and 1-2 of those could be virtual. Reviewed all of the above and taught pt pharyngocize exercises, which he demonstrated in return. PLAN: Treatment Modalities: swallowing, lymphedema, dysarthrai Frequency of Visits: 2-4x/month Duration: unknown; may seek treatment elsewhere Power Driven Brush Maker Goals: 1. Patient will meet nutrition and [...] coordinate the swallow mechanism, patient will complete 26m2gksx of effortful swallows. Patient will participate in head and neck lymphedema (more content not included)...[facility] [employer]02-19-2025 NoteWe will send referrals to [facility] for: Medical Oncology (Chemotherapy) Radiation Oncology (Radiation Therapy) We will send a referral to [facility] for Speech Therapy: Linda Powers [employer] [id number] Romel Robledo [facility] Work Phone: 1(145) 199-569602-14-2025 Hospital Discharge instructions* Discharge Instructions* Steve Chery RN - 05/08/2024 8:51 AM EST Images from the original note were not included. DISCHARGE INSTRUCTIONS Robert Ron [id number] The following is a brief overview of [...] 05/13/2024 1:15 PM Simon Packer MD ENT [facility] 05/13/2024 2:00 PM Kristofer Anderson, SAFIA-MODERATE NEEDS TEACHER SPEECH ENT [facility] 05/13/2024 3:[address] [facility] 05/22/2024 11:00 AM Sunny Wagner DDS [facility] PERIOPERATIVE DISCHARGE/HOME-GOING INSTRUCTIONS ANESTHESIA - GENERAL (ADULT) If a problem arises, you may contact your physician by calling [phone] and asking for the resident airfreight operations agent for ENT service. Special Care Needs: Activity: [...] very uncomfortable and can t urinate, call [phone] or come to the emergency room. A [...] an appointment with the sleep clinic at [phone] to be evaluated and scheduled for the [...] less likely. For more informati on visit: [email or web address]/ Some medications or combinations of medications can [...] and treated if needed documented in this [id number] Surgery Surgical operation note* OP Note - Simon Packer MD - 05/08/2024 7:47 AM EST Operative Report DATE OF SERVICE: 05/08/24 PATIENT: Robert Ron PREOPERATIVE DIAGNOSIS: 1. Oropharyngeal mass POSTOPERATIVE DIAGNOSIS: 1. Oropharyngeal mass, squamous cell carcinoma PROCEDURE: Direct laryngoscopy with biopsy, CPT 83298 SURGEON: Simon Packer MD JETTING MACHINE OPERATOR: Resident surgeons: MD Jimenez Craig MD ANESTHESIA: [...] Packer was present for the entire procedure. [id number] Miscellaneous Notes* OP Note - Simon Packer MD - 05/08/2024 7:47 AM EST Operative Report DATE OF SERVICE: 05/08/24 PATIENT: Robert Ron PREOPERATIVE DIAGNOSIS: 1. Oropharyngeal mass POSTOPERATIVE DIAGNOSIS: 1. Oropharyngeal mass, squamous cell carcinoma PROCEDURE: Direct laryngoscopy with biopsy, CPT 23922 SURGEON: Simon Packer MD JETTING MACHINE OPERATOR: Resident surgeons: MD Jimenez Craig MD ANESTHESIA: [...] were discussed with the patient and/or legal electroplating sales representative. The risks, benefits and alternatives were reviewed. Questions regarding blood transfusions were answered. The patient /or the patient s legal electroplating sales representative agree with the plan for transfusion of blood and/or blood components. documented in this [id number] Progress note* Blood Attestation - Arnie Mcgrath MD - 05/08/2024 7:15 AM EST Blood Attestation: ATTESTATION OF INFORMED CONSENT FOR BLOOD: The transfusion of blood and/or blood components were discussed with the patient and/or legal electroplating sales representative. The risks, benefits and alternatives were reviewed. Questions regarding blood transfusions were answered. The patient /or the patient s legal electroplating sales representative agree with the plan for transfusion of blood and/or blood components. [employer] Work Phone: [phone]) 181-586102-11-2025 Telephone encounter Note* Telephone Encounter - Cindy [...] send dental clearance checklist. Cindy Newell RN [employer] Work Phone: [phone] 590-807802-11-2025 Miscellaneous Notes* Telephone Encounter - Cindy Newell [...] checklist. Cindy Newell, RN documented in this [id number] NoteSW attempted to make Distress Screen outreach call to Pt, but Pt didn't answer the phone. SW left a message explaining reason for call and requesting a return call. SW will remain available. SHANIA Rodriguez [id number] [employer] [id number] Telephone encounter Note* Telephone Encounter - Glea Kelly LSW - 05/04/2024 10:27 AM EST SW attempted to make Distress Screen outreach call to Pt, but Pt didn't answer the phone. SW left amessage explaining reason for call and requesting a return call. SW will remain available. SHANIA Rodriguez [id number] [employer] Work Phone: [phone] Miscellaneous Notes* Telephone Encounter - Gela Kelly LSW - 05/04/2024 10:27 AM EST SW attempted to make Distress Screen outreach call to Pt, but Pt didn't answer the phone. SW left amessage explaining reason for call and requesting a return call. SW will remain available. SHANIA Rodriguez [id number] documented in this [id number] Instructions* Patient Instructions* Evie Blank APRN-CNP - [...] for pain. Please hold all Vitamin E, [place] 3, fish oil and herbal supplements for [...] otherwise contacted. ? Expect a call from [employer] one business day prior to surgery for [...] your Preparing for Your Surgery/Procedure booklet or [facility][email or web address]/surgery if you have questions. Contact the Pre-Admission Testing department at [phone] or your surgeon's office with any questions [...] stay with you after surgery. [facility] if you need [facility] assistance or have concerns about going home [phone]. ? SLEEP APNEA PATIENTS: Bring your sleep apnea machine and mask. ? PLEASE BE ON TIME. A late arrival may result in the cancellation/ delay of your surgery. [facility]; it is our pleasure to care for you documented in this [id number] Consult note* Evie Blank APRN-CNP - 04/28/2024 12:43 PM EST Images from the original note were not included. Pre-Admission Testing Consultation Robert Ron, [id number] 73 year old Male 04/29/2024 Consult placed to [facility] by Dr. Packer due to significant PMH of PE [facility] Triage Risk Score Total Score: 5 2 Patient is receiving or has recently received anticoagulation therapy. 2 Patient is on more than 2 antihypertension medications. 1 Patient has an elevated BMI recorded in the past 30 days Robert oRn is scheduled for LARYNGOSCOPY, DIRECT, ESOPHAGOSCOPY RIGID [...] Xarelto 2 days prior procedure, PCP at [facility] notified ( see scan doc) LABS, TESTS, [...] Interviewer signature: DIEGO Shearer 7:47 AM 04/29/2024 [id number] NotePre-Admission Testing Consultation Robert Ron, [id number] 73 year old Male 04/29/2024 Consult placed to [facility] by Dr. Packer due to significant PMH [...] Xarelto 2 days prior procedure, PCP at [facility] notified ( see scan doc) LABS, TESTS, CONS (more content not included)...The [employer] [id number] Consult note* Evie Blank APRN-FRONT FACER - 04/28/2024 12:43 PM EST Images from the original note were not included. Pre-Admission Testing Consultation Orbert Rohit, [id number] 73 year old Male 04/29/2024 Consult placed [...] Xarelto 2 days prior procedure, PCP at [facility] notified ( see scan doc) LABS, TESTS, [...] Shearer 7:47 AM 04/29/2024 documented in this [id number] History of Present illness Narrative* Markos Cordoba [...] Dubois) who presents today, 04/28/2024, at the [facility] at the request of Referring Provider: Iraj [...] LNP, pres. free, 50 mcg/0.5 mL dose (OFE=592) 01/24/2023, 01/21/2024 Influenza, injectable, high dose seasonal, trivalent, preservative free (WHM=425) 12/19/2016 Influenza, injectable, quadrivalent, preservative (HBD=459) 12/22/2020, 01/03/2023 Influenza, injectable, trivalent, preservative (SWC=262) 01/07/2024 Influenza, novel G5U8-22, injectable, preservative-free (ZBN=983) 02/03/2009 Moderna Monovalent (12+ yrs) COVID-19 vaccine, mRNA, spike protein, LNP, PF, 100 mcg/0.5 mL (EEL=905) 06/24/2020, 07/22/2020 Pneumococcal conjugate 20 valent (PCV20), polysaccharide EUP822 conjugate, adjuvant, PF (BDZ=183) 01/21/2024 Respiratory syncytial virus (RSV), vaccine, recombinant, protein subunit RSV prefusion F, adjuvant reconstituted, 0.5 mL, preservative free (EXN=708) 01/24/2023 Zoster Recombinant (RZV,Shingles) (NGN=749) 08/20/2019 PHYSICAL EXAM: Vital Signs: Pulse 82 [...] if positive for malignancy -recommend referrals to MODERATE NEEDS TEACHER (may require MBS prior to treatment), nutrition, [...] any questions or concerns. Simon Packer MD Inventory Associate And Driver Department of Otolaryngology - Head and Neck Surgery [employer] [facility], [facility] Pager: [phone] documented in this encounterMetroHealthConsult note Author Isaiah Schwartz [facility] Note Date/Time July 09, 2024 12: 24pm [facility] Medical Records Department [address] [place] [address] Anesthesia Postop Eval I 07/09/24 1221 MR#: [id number] Acct: [id number] Name: ROBERT RON Rep #:[id number] : 1950 73 From: Isaiah rodriguez PROVINCE ARCHIVIST PCP: Dr. Bulmaro Curtis MD Status:REG S DC Y Race: C Location: [place] [address] Anesthesia: Postop Eval I Current Vital Signs [...] CRNA Cosigner Signature: Date CC: ~ Signed [facility] Work Phone: Discharge summary Author Daniel Sánchez [facility] Note Date/Time July 09, 2024 12: 11pm [facility] Medical Records Department [address] [place] [address] Instructions for Home/Discharge Instructions 07/09/24 1207 MR#: [id number] Acct: [id number] Name: ROBERT RON Rep #:[id number] : [...] Provider: Bulmaro Curtis Chi Instructions Print Language: Anguillan Discharge Orders/Prescriptions Prescriptions: Continued rivaroxaban 15 mg [...] CC: Dr. 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 [facility] Work Phone: Evaluation note* Diagnosis Onset Date Resolution Status History of pulmonary embolism acute Lung nodule acute Nicotine dependence, cigarettes, 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 Lung nodule acute Nicotine dependence, cigarettes, in remission acute BMI 38.0-38.9,adult chronic 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 [facility] Work Phone: evaluation note* Diagnosis Onset Date Resolution Status History of pulmonary embolism acute Nicotine dependence, cigarettes, 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 [facility] Work Phone: evaluation note* Diagnosis Onset Date Resolution Status History of pulmonary embolism acute 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, cigarettes, in remission chronic [facility] Work Phone: Evaluation note* Diagnosis Postoperative pain- [...] major salivary glands [facility] N[facility] Diagnostic X-Ray (Routine) - Closed Specialty Diagnoses / Procedures Referred By Ca fatima Referred To Contact Radiology Diagnoses Neck mass Procedures CT NEURO IMAGE IMPORT(TERESA) DOWNLOAD POWERSHARE IMAGES TO Simon Santos MD [address] [place] [address] Phone: tel: fax: [facility] [address] [place] [address] Phone: tel: Referral ID Status Reason Start Date Expiration Date Visits Re quested Visits Authorized [id number] Closed 04/17/2024 04/17/2025 1 1 [facility] for visit Narrative* Auth/Cert (Routine) Specialty Diagnoses / Procedures Referred By Ca fatima Referred To Contact General Surgery Diagnoses Neck mass Warthin's tumor Oropharyngeal mass Neck mass [R22.1] 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] Procedures LARYNGOSCOPY, DIRECT, OPERATIVE, W/BIOPSY; BRONCHOSCOPY, RIGID/FLEX, W/WO FLUORO GUID; W/BRONCHIAL/ENDOBRONCHI AL BIOPSY, SINGLE/MULTIPLE LARYNGOSCOPY, DIRECT ESOPHAGOSCOPY RIGID Simon Packer MD [address] [place] [address] Phone: tel: fax: [facility] [address] [place] [phone] Phone: tel: Referral ID Status Reason Start Date Expiration Date Visits Re quested Visits Authorized [id number] 3 3 [facility] Chief Complaint and Reason for Visit Chief [...] June 03, 2024 9:24am Percutaneous endoscopic gastrostomy [facility] June 03, 2024 9:24am Encounter [...] August 23, 2020 1 0:25am Power of Ip Litigation Associate Yes August 24, 2020 8:46am Advance Directive Response Recorded Date/ Time Advance Directives Yes July 28, 2013 2:11pm Living Will Yes August 23, 2020 9 :25am Power of Ip Litigation Associate Yes August 24, 2020 7:46am Advance Directive Response Recorded Date/ Time Advance Directives Yes July 28, 2013 3:11pm Living Will Yes December 17, 2022 7:54am Power of Ip Litigation Associate No November 7:54am Advance Directive Response Recorded Date/ Time Living Will Yes June 22, 2024 5:28pm Do you have a Healthcare Pow er of Ip Litigation Associate? Yes June 22, 2024 5:28pm Name of Medical Power of Ip Litigation Associate POA GENARO RON June 22, 2024 5:28pm Advance Directives Yes July 28, 2013 3:11pm Advance Directive Response Recorded Date/ Time Advance Directives on File No July 06, 2024 9:14am Living Will Yes July 06, 2024 9:14am Do you have a Healthcare Pow er of Ip Litigation Associate? Yes July 06, 2024 9:14am Name of Medical Power of Ip Litigation Associate Liat Ron July 06, 2024 9:14am Advance Directives Yes July 06, 025 9:14am Living Will Yes June 22, 2024 5:28pm Do you have a Healthcare Pow er of Ip Litigation Associate? Yes June 22, 2024 5:28pm Name of Medical Power of Ip Litigation Associate POA GENARO RON June 22, 2024 5:28pm Living Will No July 07, 2024 10:45am Do you have a Healthcare Pow er of Ip Litigation Associate? No July 07, 2024 10:45am Advance Directive Response Recorded Date/ Time Advance Directives Yes July 13 8:37am Advance Directives on File No July 13, 2024 8:14am Living Will Yes July 13, 2024 8:14am Do you have a Healthcare Pow er of Ip Litigation Associate? Yes July 13, 2024 8:14am Name of Medical Power of Ip Litigation Associate Liat Ron July 13, 2024 8:14am Living Will Yes June 22, 2024 5:28pm Do you have a Healthcare Pow er of Ip Litigation Associate? Yes June 22, 2024 5:28pm Name of Medical Power of Ip Litigation Associate LILIA GENARO RON June 22, 2024 5:28pm Living Will No July 07, 2024 10:45am Do you have a Healthcare Pow er of Ip Litigation Associate? No July 07, 2024 10:45am Advance Directive Response Recorded Date/ Time Advance Directives on File No July 272024 9:35am Living Will Yes July 27, 2024 9: 35am Do you have a Healthcare Pow er of Ip Litigation Associate? Yes July 27, 2024 9:35am Name of Medical Power of Ip Litigation Associate Liat Ron July 27, 2024 9:35am Advance Directives Yes July 27, 2024 9:35am Living Will Yes June 22, 2024 5:28pm Do you have a Healthcare Pow er of Ip Litigation Associate? Yes June 22, 2024 5:28pm Name of Medical Power of Ip Litigation Associate LILIA GENARO RON June 22, 2024 5:28pm Living Will No July 07, 2024 10:45am Do you have a Healthcare Pow er of Ip Litigation Associate? No July 07, 2024 10:45am Advance Directive Response Recorded Date/ Time Advance Directives on File No July 232024 7:56am Living Will Yes August 10, 2024 7 :56am Do you have a Healthcare Pow er of Ip Litigation Associate? Yes August 10, 2024 7:56am Name of Medical Power of Ip Litigation Associate Liat Ron August 10, 2024 7:56am Advance Directives Yes August 10 7:56am Living Will Yes June 22, 2024 5:28pm Do you have a Healthcare Pow er of Ip Litigation Associate? Yes June 22, 2024 5:28pm Name of Medical Power of Ip Litigation Associate JON GENARO RON June 22, 2024 5:28pm Living Will No July 07, 2024 10:45am Do you have a Healthcare Pow er of Ip Litigation Associate? No July 07, 2024 10:45am Advance Directive Response Recorded Date/ Time Advance Directives on File No July 242024 9:26am Living Will Yes August 18, 2024 9 :26am Do you have a Healthcare Pow er of Ip Litigation Associate? Yes August 18, 2024 9:26am Name of Medical Power of Ip Litigation Associate Liat Ron August 18, 2024 9:26am Advance Directives Yes August 18 9:26am Living Will Yes June 22, 2024 5:28pm Do you have a Healthcare Pow er of Ip Litigation Associate? Yes June 22, 2024 5:28pm Name of Medical Power of Ip Litigation Associate JON GENARO RON June 22, 2024 5:28pm Living Will No July 07, 2024 10:45am Do you have a Healthcare Pow er of Ip Litigation Associate? No July 07, 2024 10:45am Summary Purpose [...] 2024 End: June 29, 2024 Ashly Laguerre NETWORKING TECHNICIAN, NETWORKING TECHNICIAN-C Attending Provider Active Start: June 29, 2024 [...] MD Primary Care Provider Active Dianna Knight NETWORKING TECHNICIAN, NETWORKING TECHNICIAN-C Attending Provider Active Team Status: Active Member Role Status Dates Dr. Bulmaro Curtis MD Primary Care Provider Active Dr. Leonel Carolina DO Attending Provider, Referring Pro vider Active Team Status: Inactive Member Role Status Dates Dr. Bulmaro Curtis MD Primary Care Provider, Referring Provider Active Dianna Knight NP, NETWORKING TECHNICIAN-C Attending Provider Active Team Status: Inactive Member Role Status Dates Dr. Bulmaro Curtis MD Primary Care Provider Active Dr. Leonel Carolina DO Attending Provider, Referring Pro vider Active Team Status: Inactive Member Role Status Dates Dr. Bulmaro Curtis MD Primary Care Provider Active Dianna Knight NETWORKING TECHNICIAN, NETWORKING TECHNICIAN-C Attending Provider, Referrin g Provider Active Team [...] Provider Active S tart: July 10, 2024 Food Supervisor Relationship Specialty Start Date End Date Evie Blank APRN-FRONT FACER [address] [place] [id number] SIGNALS OFFICER Anesthesiology 05/23/24 Kristofer Anderson CCC-MODERATE NEEDS TEACHER [address] [place], [place] [id number] Speech Language Pathologist Speech Pathology 05/23/24 Simon Packer MD [address] [place] [phone] Physician Otolaryngology 05/23/24 Team Status: Active Member [...] Provider Active S tart: July 17, 2024 Food Supervisor Relationship Specialty Start Date End Date Evie Blank APRN-FRONT FACER [address] [place] [phone] SIGNALS OFFICER Anesthesiology 05/23/24 Kristofer Anderson CCC-MODERATE NEEDS TEACHER [address] [place], [place] [id number] Speech Language Pathologist Speech Pathology 05/23/24 Simon Packer MD [address] [place] [id number] Physician Otolaryngology 05/23/24 Team Status: Active Member [...] Provider Active S tart: August 18, 2024 Food Supervisor Relationship Specialty Start Date End Date Evie Blank APRN-FRONT FACER [address] [place] [phone] SIGNALS OFFICER Anesthesiology 05/23/24 Kristofer Anderson, [facility]-MODERATE NEEDS TEACHER [address] [place], [place] [phone] Speech Language Pathologist Speech Pathology 05/23/24 Simon Packer MD [address] [place], [place] [phone] Physician Otolaryngology 05/23/24 Team Status: Inactive Member [...] August 19, 2024 End: August 19, 2024 Food Supervisor Relationship Specialty Start Date End Date Evie Blank APRN-FRONT FACER [address] [place] [address] SIGNALS OFFICER Anesthesiology 05/23/24 Kristofer Anderson, [facility]-MODERATE NEEDS TEACHER [address] [place], [place] [id number] Speech Language Pathologist Speech Pathology 05/23/24 Simon Packer MD [address] [place] [id number] Physician Otolaryngology 05/23/24 Team Status: Inactive Member [...] and content) DATE CREATED AUTHOR 08/21/2024 [facility] [employer] DATE CREATED AUTHOR AUTHOR'S ORGANIZ ATION 09/22/2024 [facility] Reason for Visit (unrecogniz ed section and [...] BE BASED ON THE PRIMARY CLINICAL RECORDS. [employer] [facility]. provides no warranty or guarantee of the accuracy or completeness of information in this document.
[2024-09-25 23:47] LABS: CPK Total, Creatine Kinase 34 U/L (24-195)
[2024-09-25] MEDS: 0.9% Normal Saline (500mL Bag) 500 ML 999 ML IV (23:52)
[2024-09-25 23:53] LABS: Mucous, Urine 0 SEEN /hpf (<or=2+); Red Blood Cells-Urine 0 SEEN /hpf (0-5); Squamous Epithelial Cells - UA 0 SEEN /hpf (0-5)
[2024-09-25 23:55] LABS: Color, Urine Straw (Yellow); Glucose, Dipstick 50 mg/dl (Normal); Ketone-Dipstick Negative (Negative); Leukocyte Esterase-Dipstick 100 /ul (Negative); Nitrite-Dipstick Negative (Negative); Occult Blood-Urine Negative /ul (Negative); Protein-Dipstick 15 mg/dl (Negative); Specific Gravity, Urine 1.005 (1.002-1.030); Urine Bilirubin Dipstick Negative (Negative)
[2024-09-26] VITALS (19 sets, daily range): BP systolic 97–131; BP diastolic 49–84; PULSE 59–75; RESP 13–22; TEMP 36.2–36.9; O2SAT 94–100; BMI 31.6
[2024-09-26 00:14] LABS: CORTISOL PM 15.70 ug/dL (2.68-10.50)
[2024-09-26 00:34] LABS: Reflex Lactate? Y
[2024-09-26 01:00] LABS: Magnesium 2.0 mg/dL (1.5-2.2)
[2024-09-26 01:10] LABS: Base Excess 4 mmol/L (-2 to +2); FI02 21.0; PO2 77 mmHG (75-100); SITE Not entered; SO2 96 % (95-99)
[2024-09-26] MEDS: 0.9% Normal Saline (250mL Bag) 250 ML 15 ML IV (01:15)
[2024-09-26] MEDS: 0.9% Normal Saline (1000mL) 1,000 ML 999 ML IV (01:21)
[2024-09-26] MEDS: Pantoprazole Sodium 40 MG in 0.9% Normal Saline (100mL MB+) 100 ML 330 MG IV ×2 (01:22→20:45)
[2024-09-26] MEDS: 0.9% Saline Lock 10 ML Syringe IV (01:31)
[2024-09-26] MEDS: Piperacil/Tazobactam 3.375 GM in 0.9% Normal Saline (50mL MB+) 50 ML IV ×4 (01:31→20:49)
[2024-09-26] MEDS: Vancomycin HCl 2,000 MG in 0.9% Normal Saline (500mL Bag) 500 ML 250 MG IV (01:50)
--- NOTE | 2024-09-26 02:19 | PCM.RX.CS ---
Consult Antibiotic Management Pharmacy has been consulted to manage selected antibiotic: Vancomycin Type of Intervention Type of Consult: New start Suspected Infection Suspected Infection: Sepsis Labs Labs: Sodium 135 mmol/L (133-145) 09/25/24 20:31 Potassium 3.6 mmol/L (3.3-5.1) 09/25/24 20:31 Chloride 93 mmol/L (98-108) L 09/25/24 20:31 Carbon Dioxide 24.0 mmol/L (21.0-32.0) 09/25/24 20:31 Anion Gap 18 (5-15) H 09/25/24 20:31 BUN 28 mg/dL (4-19) H 09/25/24 20:31 Creatinine 1.41 mg/dL (0.70-1.20) H 09/25/24 20:31 Est GFR (MDRD) Non-Af 53 (>60) L 09/25/24 20:31 BUN/Creatinine Ratio 20.0 RATIO (10-20) 09/25/24 20:31 Glucose 152 mg/dL (70-99) H 09/25/24 20:31 Dosing Weight Weight used for dosin kg Estimated Creatinine Clearance Estimated Creatinine Clearance: 63 Goal Trough Goal Trough: 15-20 mcg/mL Pharmacy Plan for Drug Dosing Pharmacy Plan for Drug Dosing: Pharmacy Service will continue to monitor and adjust dosing as required. Follow-Up Labs Follow-Up Labs: Trough: Vancomycin Date/Time Labs Ordered Labs to be done on [date and time ordered]: 09/27/24 @1330
--- NOTE | 2024-09-26 03:40 | CT_ITS ---
PROCEDURE: CTA CHEST W/WO CONTRAST 09/26/2024 REASON FOR EXAM: SUSPECTED PE ON ABDOMINAL CT. TECHNIQUE: CTA CHEST W/WO CONTRAST Multiplanar Sagittal and Coronal images were obtained. CONTRAST: Isovue 370 VOLUME: 100 mL One or more dose reduction techniques were used (e.g., Automated exposure control, adjustment of the mA and/or kV according to patient size, use of iterative reconstruction technique). RADIATION DOSE SUMMARY: CTDlvol: 35 mGy DLP: 634 mGycm COMPARISON: Chest CT 07/25/[address] 09/25/2024 FINDINGS: Unremarkable base of neck and axilla. Normal esophagus. Normal heart size. No aortic dissection. There are bilateral central and segmental pulmonary emboli, tprjx-wvyhpjn-soeo-left, overall mild clot burden. Negative right heart strain. Thoracic spine degeneration. Left-sided port. No acute chest wall findings. The G-tube balloon is outside the chest wall, series 2, image 11. Consider repositioning. No acute upper abdominal findings. Central airways are patent. Mild bronchial wall thickening. Mild emphysema. Bibasilar atelectasis. No consolidation, effusion, or pneumothorax. No acute upper abdominal findings. CT/CTA Chest W/WO Contrast IMPRESSION: Bilateral pulmonary emboli, mild clot burden. Negative right heart strain. Critical results discussed with CHANDLER Alfonso at 5:02 a.m. Reading Location: [place] [address]
--- NOTE | 2024-09-26 05:14 | VDLE_ITS ---
Reason For Study Reason For Study: Pulmonary Embolism RIGHT LEFT GSV is normal. GSV is normal. CFV is patent and compressible. CFV is patent and compressible. Loosely attached thrombus noted at FV / Deep FV Acute deep vein thrombosis is noted in the FV. It is bifurcation. Deep FV appears patent. dilated and NONCOMPRESSIBLE. Acute deep vein thrombosis is noted in the FV. It is Acute deep vein thrombosis is noted in the POP V. It dilated and NONCOMPRESSIBLE. is dilated and NONCOMPRESSIBLE. Acute deep vein thrombosis is noted in the POP V. It Acute deep vein thrombosis is noted in the T/P Trunk. is dilated and NONCOMPRESSIBLE. It is dilated and NONCOMPRESSIBLE. Acute deep vein thrombosis is noted in the T/P Trunk. Acute deep vein thrombosis is noted in the PTV. It is It is dilated and NONCOMPRESSIBLE. dilated and NONCOMPRESSIBLE. PTV is compressible. LT PerV is compressible. RT PerV is compressible. Procedure This is a venous duplex using B-mode, color flow and spectral Doppler. Exam performed portable in patient room. The exam was diagnostic. The study was technically difficult. Elicia - PCU gas distribution plant operator. VL/Venous Duplex US - Enoch Extrem Interpretation Summary Acute deep vein thrombosis noted in the right femoral vein, popliteal vein, tib ioperoneal trunk vein. Acute deep vein thrombosis noted in the left femoral vein, popliteal vein, tibi operoneal trunk vein, posterior tibial vein. Ordering Physician: Lorenzo Hernandez Referring Physician: Bulmaro Curtis Chi Performed By: Wilfredo Beach RVT
--- NOTE | 2024-09-26 05:45 | NURSING ---
While attempting to obtain blood work on patient, patient made a comment about his oncology team not using his chest port as it had been 'not working.' Patient previously stated it had been difficult to get blood return / draws from his port. Port flushed without issues on multiple attempts, however, this nurse asked patient for clarification on what he meant by it had been not working. Patient stated when he had gone in for his chemo treatments, they were using his PIVs for treatments instead of the port. At this time, this nurse flush line and deferred from using. Order obtained for PICC line insertion.
--- NOTE | 2024-09-26 06:00 | NURSING ---
This nurse spoke with [employer] dispatch team. Company said they would give us an estimated time when nurses began picking up their rounds.
[2024-09-26] MEDS: HEPARIN/D5w 25,000 UNITS 25,000 UNITS/250 ML IV.SOLN. 0.2 UNITS CONT INF (06:12)
--- NOTE | 2024-09-26 06:55 | PCMCONS.TICU ---
HPI Consult Data Date of Consult: 09/26/24 HPI Narrative Reason for Consultation: Sepsis/SIRS HPI Narrative: ROBERT RON, is a 73 M who presents after a fall at home. He has sq cell ca of the tongue, chemo and radiation tx. Has had trouble swallowing and has PEG. On Xarelto PO/via PEG, and has been missing some doses recently. In the course of trauma w/u, found to have PE. Had h/o saddle PE a short time ago. 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 [facility] Medical History Encounter for education Wears glasses Edentulous High cholesterol Injury of head and neck History of hiatal hernia CPAP (continuous positive airway pressure) dependence Shortness of breath on exertion Former smoker History of edema History of echocardiogram COPD (chronic obstructive pulmonary disease) Tongue cancer Hyperglycemia Essential hypertension Hypoxia Saddle pulmonary embolus Home Medications ?Medication ?Instructions ?Recorded ?Last Taken ?Type atorvastatin 40 mg tablet 40 mg PO QHS 05/04/19 05/03/19 History cholecalciferol (vitamin D3) 25 1,000 unit PO DAILY supplement 05/04/19 05/04/19 History mcg (1,000 unit) tablet rivaroxaban 15 mg tablet 20 mg PO QHS 11/30/21 07/05/24 History citalopram 20 mg tablet (Celexa) 20 mg PO QHS 05/08/22 Unknown History budesonide 160 mcg-glycopyr 9 2 inh inhalation BID #10.7 grams 07/31/23 Unknown Rx mcg-formot 4.8 mcg/actuation HFA inhaler (Breztri Aerosphere) cetirizine 10 mg capsule (Zyrtec) 10 mg PO DAILY PRN allergy symptoms 07/31/23 Unknown History fluticasone furoate 27.5 2 spray intranasal DAILY PRN 07/31/23 Unknown History mcg/actuation nasal allergy symptoms spray,suspension (Flonase Sensimist) hydrochlorothiazide 12.5 mg tablet 12.5 mg PO QHS 07/31/23 Unknown History valsartan 320 mg tablet 320 mg PO QHS 07/31/23 Unknown History acetaminophen 500 mg capsule 500 mg PO Q6H PRN pain 05/20/24 07/01/24 History acetaminophen 300 mg-codeine 30 mg 1 - 2 tab PO Q6H PRN PRN pain 06/22/24 Unknown History tablet ibuprofen 600 mg tablet 600 mg PO Q6H PRN PRN pain 06/22/24 Unknown History lidocaine-prilocaine 2.5 %-2.5 % 1 applic topical ONCE PRN port 06/29/24 Unknown Rx topical cream access 30 days #30 grams albuterol sulfate 90 mcg/actuation 2 puff inhalation Q4H PRN 07/07/24 Unknown Rx aerosol inhaler shortness of breath or wheezing #1 ea MAGIC MOUTH WASH (BMX) 180 mL 15 ml PO .qid PRN pain #180 mL 07/21/24 Unknown Rx suspension dexamethasone 4 mg tablet 4 mg PO QDAY #14 tabs 09/15/24 Unknown Rx oxycodone 5 mg capsule 5 mg PO TID PRN pain 2 weeks #80 09/15/24 Unknown Rx caps Allergy/AdvReac Type Severity Reaction Status Date / Time Sulfa (Sulfonamide Allergy Rash Verified 09/25/24 19:59 Antibiotics) Family History Father Heart disease Mother Heart disease Lung disease Grandmother Cancer Grandfather Cancer Other Diabetes Surgical History History of vascular access device History of surgery History of esophagogastroduodenoscopy (EGD) History of colonoscopy History of appendectomy History of tonsillectomy Cataracts, both eyes H/O parotidectomy Social History Smoking Status: Former smoker how long ago did patient quit smokin second hand exposure: Yes ROS ROS Narrative 12 or more systems negative except as per HPI; other complaints include exercise fatigue and SEGOVIA Objective Data Objective Data Vital Signs: Vital Signs Last response Temperature 36.6 C 09/26/24 02:03 Temperature Source Temporal 09/26/24 02:03 Pulse Rate 65 09/26/24 06:00 Respiratory Rate 13 09/26/24 06:00 Respiratory Effort Normal, Non-Labored 09/26/24 05:50 Respiratory Depth Normal 09/26/24 05:50 Respiratory Pattern Normal 09/26/24 05:50 Blood Pressure 97/51 L 09/26/24 06:00 Blood Pressure Mean 66 09/26/24 06:00 Blood Pressure Source Monitor 09/26/24 06:00 Blood Pressure Position Semi-Fowlers 09/26/24 06:00 Blood Pressure Location Left Arm 09/26/24 06:00 Pulse Ox 94 09/26/24 06:00 Oxygen Delivery Method Room Air 09/26/24 06:00 Fraction of Inspired Oxygen (FIO2) 21 09/26/24 01:34 I&O: I&O Last 24 Hours 09/25/24 09/25/24 09/26/24 11:59 23:59 11:59 Intake Total 1050 / 1050 3192 / 3192 Output Total 925 / 925 Balance 1050 / 1050 2267 / 2267 I&O: Total Stay 09/25/24 19:54 thru 09/26/24 05:31 Intake Total 4242 Output Total 925 Balance 3317 Current Meds Ordered / Administered: Current meds ordered / Administered Generic Name Dose Route Start Last Admin Trade Name Freq PRN Reason Stop Dose Admin Acetaminophen 500 mg 09/26/24 00:29 Acetaminophen 500 Mg Tablet PO Q6H PRN PRN Pain 1-5/10 or Fever Albuterol Sulfate 2.5 mg 09/26/24 00:29 Albuterol 2.5 Mg/3 Ml Vial.Neb. INHALATION Q4H PRN PRN shortness of breath/wheezing Albuterol/Ipratropium 3 ml 09/26/24 06:00 Ipratropium/Albuterol Sulfate 3 Ml Ampul.Neb INHALATION Q6HWA.RT [facility] Atorvastatin Calcium 40 mg 09/26/24 22:00 Atorvastatin Calcium 40 Mg Tablet PO QHS [facility] Cholecalciferol 25 mcg 09/26/24 10:00 Cholecalciferol (Vit D3) 25 Mcg Tablet (1,000 Units) PO DAILY WILMAN Citalopram Hydrobromide 20 mg 09/26/24 22:00 Citalopram 20 Mg Tablet PO QHS [facility] Dexamethasone 4 mg 09/26/24 08:00 Dexamethasone 4 Mg Tablet PO DAILYCM [facility] Fluticasone Propionate 2 spray 09/26/24 00:29 Fluticasone 0.05% 1 [place] Nasal.Sry NASAL DAILY PRN allergy symptoms Heparin Sodium (Porcine) 0 unit 09/26/24 05:25 Heparin Injection (Vial) 5,000 Unit/Ml Vial IV UD PRN dose adjustment Protocol Vancomycin IV-PHARMACY TO DOSE 500 mls @ 250 mls/hr 09/26/24 00:29 1 each/ Sodium Chloride IV PRN PRN Rx to Dose Protocol Piperacillin Sod/Tazobactam 50 mls @ 12.5 mls/hr 09/26/24 00:29 09/26/24 06:24 Sod 3.375 gm/ Sodium Chloride IV 12.5 mls/hr Q8 WILMAN Administration Pantoprazole Sodium 40 mg/ 100 mls @ 330 mls/hr 09/26/24 00:29 09/26/24 01:41 Sodium Chloride IV Infused 2200 WILMAN Infusion Sodium Chloride 250 mls @ 15 mls/hr 09/26/24 00:30 09/26/24 01:23 IV 0 mls/hr .[id number] PRN Infusion Saline Flush Sodium Chloride 250 mls @ 15 mls/hr 09/26/24 00:30 IV .[id number] PRN Additional IVPB Infusion Vancomycin HCl 1,500 mg/ 530 mls @ 250 mls/hr 09/26/24 14:00 Sodium Chloride IV Q12H WILMAN Heparin Sodium/Dextrose 25,000 units in 250 mls @ 15 mls/hr 09/26/24 05:20 09/26/24 06:12 CONT INF 15 units/hr .[id number] WILMAN 0.2 mls/hr Administration Protocol As Directed Lidocaine/Diphenhydr/Alum/Mg/Simeth 15 ml 09/26/24 00:29 Bmx Liquid 180 Ml PO 4X/DAY PRN PRN mouth pain Lidocaine/Prilocaine 1 gm 09/26/24 00:29 Lidocaine/Prilocaine Hcl 5 Gm Tube TOPICAL PRN PRN PORT ACCESS Protocol Loratadine 10 mg 09/26/24 00:29 Loratadine 10 Mg Tablet PO DAILY PRN allergy symptoms Morphine Sulfate 2 mg 09/26/24 00:29 Morphine 2 Mg/Ml Syringe IV Q4H PRN PRN Pain Score 6-10 Prochlorperazine Edisylate 5 mg 09/26/24 00:29 Prochlorperazine 10 Mg/2 Ml Vial IV Q4H PRN PRN NAUSEA/VOMITING Rivaroxaban 20 mg 07/05/25 17:00 Rivaroxaban 20 Mg Tablet PO 1700 [facility] Sodium Chloride 10 - 40 ml 09/26/24 00:30 09/26/24 01:31 0.9% Saline Lock 10 Ml Syringe IV 20 ml UD PRN Administration SALINE FLUSH Vancomycin Protocol 1 lab 09/27/24 12:30 Vancomycin Trough/Random Due 09/27/24 14:30 DAILY [facility] Physical Exam Const alert, oriented x3 and no apparent distress General Appearance: cooperative and well developed HEENT normocephalic and moist oral mucous membranes Eyes PERRL, EOMs intact bilaterally, conjunctivae normal and no scleral icterus Neck full ROM and no JVD Lymph Lymphatic: no lymphadenopathy noted Chest inspection of chest normal Resp normal respiratory effort and no use of accessory muscles Effort and Inspection: able to speak in complete sentences Cardio regular rate Cardio Narrative: irregular, but not fast Rhythm: abnormal rhythm GI normal to inspection, nondistended, normoactive bowel sounds, soft to palpation and non-tender no CVA tenderness Extremity no clubbing, cyanosis or edema Skin no rashes or lesions noted Neuro oriented x3, CN's II-XII intact bilaterally, moves all extremities and no focal motor deficits Psych cooperative and affect normal Appearance: well kempt Speech: normal speech Lab / Micro Data Attestation: I reviewed the patient's lab results. 09/25/24 20:31 09/25/24 20:31 Labs: Laboratory Results - last 24 hr 09/25/24 20:31: WBC 13.4 H, RBC 4.41 L, Hgb 13.9, Hct 41.7, MCV 94.6 H, MCH 31.5, MCHC 33.3, RDW Std Deviation 63.6 H, RDW Coeff of Neftali 18.5 H, Plt Count 87 L, MPV 10.4, Immature Gran % (Auto) 3.400 H, Neut % (Auto) 87.7 H, Lymph % (Auto) 1.1 L, [place] % (Auto) 7.0, Eos % (Auto) 0.4, Baso % (Auto) 0.4, Absolute Neuts (auto) 11.7 H, Absolute Lymphs (auto) 0.15 L, Nucleated RBC % 0, Differential Comment SCANNED, Platelet Estimate MOD DEC, PT 20.3 H, INR 1.7, APTT 29.8, Sodium 135, Potassium 3.6, Chloride 93 L, Carbon Dioxide 24.0, Anion Gap 18 H, BUN 28 H, Creatinine 1.41 H, Estim Creat Clear Calc 63.36, Est GFR (MDRD) Non-Af 53 L, BUN/Creatinine Ratio 20.0, Glucose 152 H, Lactic Acid 5.0 H*, Calcium 9.4, Phosphorus 2.6 L, Magnesium 2.0, Total Bilirubin 2.12 H, AST 26, ALT 31, Alkaline Phosphatase 100, Total Creatine Kinase 34, Total Protein 6.5, Albumin 3.7, Globulin 2.7, Albumin/Globulin Ratio 1.4, Cortisol PM Sample 15.70 H 09/25/24 23:47: Urine Color Straw, Urine Clarity Clear, Urine pH 6.5, Ur Specific [place] 1.005, Urine Protein 15 H, Urine Glucose (UA) 50 H, Urine Ketones Negative, Urine Occult Blood Negative, Urine Nitrite Negative, Urine Bilirubin Negative, Urine Urobilinogen Normal, Ur Leukocyte Esterase 100 H, Urine RBC 0 SEEN, Urine WBC 0-5 SEEN, Ur Squamous Epith Cells 0 SEEN, Urine Bacteria 2+, Urine Mucus 0 SEEN ABG Data ABG results: ABG 09/26/24 01:06 Specimen Type ART Sample Site Not entered pH 7.47 H Bicarbonate Actual 27.6 H Total CO2 29 Base Excess 4 H O2 Saturation 96 O2 % 21.0 ABG pCO2 38.1 ABG pO2 77 O2 Delivery Device Room Air Vent Mode Not entered Imaging Radiology Impression Ribs w/Chest X-Ray 09/25/24 20:55 IMPRESSION: No displaced rib fractures. Reading Location: [facility] Abdomen/Pelvis CT 09/25/24 22:42 IMPRESSION: No acute abdominopelvic finding. Reading Location: [facility] Brain CT 09/25/24 22:47 IMPRESSION: No acute intracranial finding. Reading Location: [facility] Cervical Spine CT 09/25/24 22:47 IMPRESSION: No cervical spine injury noted Reading Location: [facility] Chest CTA 09/26/24 03:40 IMPRESSION: Bilateral pulmonary emboli, mild clot burden. Negative right heart strain. Critical results discussed with CHANDLER Alfonso at 5:02 a.m. Reading Location: [facility]2 Personal interpretation: Most pburden in the distal segments of the R pulm vasc, not clearly acute vs chronic, no PNA Assessment and Plan . Assessment and plan: ICU problems: SIRS/sepsis Acute PE, nonmassive/nonsubmassive Possible treatment failure of Xarelto vs nonadherence Plan: heparin drip for now may need anti-Xa w/u (Heme consult) ECHO and V/Q scan recommended to eval possible CTEPH/CTED from prior CPAP QHS home settings can downgrade from ICU Rubio Nelson MD [facility] Access TeleCare Critical Care Time: 60 minutes The entirety of this encounter was done via Telemedicine
--- NOTE | 2024-09-26 07:16 | PN.HOSP_ITS ---
Reason for Visit Reason for Visit: Diagnoses Sepsis, unspecified organism (09/25/24) Malignant neoplasm of base of tongue (09/25/24) Bandemia (09/25/24) Elevated white blood cell count, unspecified (09/25/24) Obesity, class 1 (09/25/24) Other disorders of bilirubin metabolism (09/25/24) Acidosis, unspecified (09/25/24) Other pulmonary embolism without acute cor pulmonale (09/25/24) Orthostatic hypotension (09/25/24) Other specified injuries of thorax, initial encounter (09/25/24) Laceration without foreign body of left elbow, initial encounter (09/25/24) Unspecified fall, initial encounter (09/25/24) Subjective Subjective Patient is a 73-year-old gentleman with history of head and neck CA (squamous cell carcinoma of the tongue) currently undergoing chemoradiation who presented to the emergency department following a fall. Patient was found to be hypotensive with lactic acidosis on admission Objective Data Objective Data Vital Signs: Vital Signs Temp Pulse Resp BP Pulse Ox O2 Del Method FiO2 98 F 64 13 109/71 99 Room Air 21 09/26/24 02:03 09/26/24 07:00 09/26/24 07:00 09/26/24 07:00 09/26/24 07:00 09/26/24 07:00 09/26/24 01:34 Oxygen Delivery Method Room Air Weight: 111.6 kg Body Mass Index (BMI) 31.6 Intake & Output: Intake and Output for Last 24 Hours 09/24/24 09/25/24 09/26/24 23:59 23:59 23:59 Intake Total 1050 / 1050 3192 / 3192 Output Total 925 / 925 Balance 1050 / 1050 2267 / 2267 Lab / Micro Data 09/25/24 20:31 09/25/24 20:31 Labs: Laboratory Results - last 24 hr 09/25/24 20:31: WBC 13.4 H, RBC 4.41 L, Hgb 13.9, Hct 41.7, MCV 94.6 H, MCH 31.5, MCHC 33.3, RDW Std Deviation 63.6 H, RDW Coeff of Neftali 18.5 H, Plt Count 87 L, MPV 10.4, Immature Gran % (Auto) 3.400 H, Neut % (Auto) 87.7 H, Lymph % (Auto) 1.1 L, [place] % (Auto) 7.0, Eos % (Auto) 0.4, Baso % (Auto) 0.4, Absolute Neuts (auto) 11.7 H, Absolute Lymphs (auto) 0.15 L, Nucleated RBC % 0, Differential Comment SCANNED, Platelet Estimate MOD DEC, PT 20.3 H, INR 1.7, APTT 29.8, Sodium 135, Potassium 3.6, Chloride 93 L, Carbon Dioxide 24.0, Anion Gap 18 H, BUN 28 H, Creatinine 1.41 H, Estim Creat Clear Calc 63.36, Est GFR (MDRD) Non-Af 53 L, BUN/Creatinine Ratio 20.0, Glucose 152 H, Lactic Acid 5.0 H* , Calcium 9.4, Phosphorus 2.6 L, Magnesium 2.0, Total Bilirubin 2.12 H, AST 26, ALT 31, Alkaline Phosphatase 100, Total Creatine Kinase 34, Total Protein 6.5, Albumin 3.7, Globulin 2.7, Albumin/Globulin Ratio 1.4, Cortisol PM Sample 15.70 H 09/25/24 23:47: Urine Color Straw, Urine Clarity Clear, Urine pH 6.5, Ur Specific [place] 1.005, Urine Protein 15 H, Urine Glucose (UA) 50 H, Urine Ketones Negative, Urine Occult Blood Negative, Urine Nitrite Negative, Urine Bilirubin Negative, Urine Urobilinogen Normal, Ur Leukocyte Esterase 100 H, Urine RBC 0 SEEN, Urine WBC 0-5 SEEN, Ur Squamous Epith Cells 0 SEEN, Urine Bacteria 2+, Urine Mucus 0 SEEN ABG Data ABG results: ABG 09/26/24 01:06 Specimen Type ART Sample Site Not entered pH 7.47 H Bicarbonate Actual 27.6 H Total CO2 29 Base Excess 4 H O2 Saturation 96 O2 % 21.0 ABG pCO2 38.1 ABG pO2 77 O2 Delivery Device Room Air Vent Mode Not entered Radiography Diagnostic Testing: Radiology Impression Ribs w/Chest X-Ray 09/25/24 20:55 IMPRESSION: No displaced rib fractures. Reading Location: [facility] Abdomen/Pelvis CT 09/25/24 22:42 IMPRESSION: No acute abdominopelvic finding. Reading Location: [facility] Brain CT 09/25/24 22:47 IMPRESSION: No acute intracranial finding. Reading Location: [facility] Cervical Spine CT 09/25/24 22:47 IMPRESSION: No cervical spine injury noted Reading Location: [place] [address] Chest CTA 09/26/24 03:40 IMPRESSION: Bilateral pulmonary emboli, mild clot burden. Negative right heart strain. Critical results discussed with CHANDLER Alfonso at 5:02 a.m. Reading Location: [place] [address] Physical Exam Narrative GENERAL: cooperative HEENT: Radiation dermatitis on the right side of the neck EYES; Anicteric, Normal Conjunctiva NECK; supple, normal thyroid, RESPIRATORY: Diminished to auscultation CARDIOVASCULAR: Regular S1 S2, GI: soft, normoactive bowel sounds, : No Renal angle tenderness; EXTREMITIES: No edema, no clubbing, MUSCULOSKELETAL: no muscle wasting NEURO: Awake; no lateralizing signs. 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 Patient was found to be hypotensive with an area of erythema and induration with some pus around the neck. An assessment of sepsis made admitted to the intensive care unit for further management 1. Sepsis ? Only abnormal finding was positive leukocyte esterases on patient urinalysis. With questionable cellulitis involving the right side of the neck in the setting of his radiation dermatitis. Patient was started on broad-spectrum antibiotic therapy with piperacillin tazobactam as well as vancomycin culture sent. Patient was resuscitated with IV fluids per protocol and did not require pressors 2. Orthostatic hypotension ? Leading to fall this was thought to be secondary to severe dehydration exacerbated by the use of antihypertensives. Admitted to the intensive care unit patient was resuscitated with IV fluids with every shift orthostatic check and monitoring of electrolyte 3. Bilateral pulmonary embolism ? CT of the chest obtained on admission did show bilateral pulmonary emboli, mild clot burden. Negative right heart strain.. 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 Xarelto held 4. Hypertension ? Blood pressure was low on admission antihypertensives held 5. COPD ? Currently not in exacerbation aerosol treatment as needed 6. Obstructive sleep apnea ? Patient is on CPAP at night 7. Depression with anxiety ? Patient is on Celexa 8. Class I obesity with BMI of 31.6 ? Complicating care weight loss advised 9. Dyslipidemia ?Patient is on statin therapy, continued at home dose Time spent in the patient's overall evaluation,decision-making process, review of diagnostic data, adjustment of management, discussion with other providers, nursing nursing and ancillary staff involved in patient's care documentation, 52 Minutes Sepsis Attestation Sepsis Attestation: Agree w/Sepsis Date exam was performed: 09/26/24 Possible Source of Sepsis: Skin/soft tissue Sepsis Organ Dysfunction Criteria Present: SBP < 90 mmHg or MAP < 65 mmHg and Lactic Acid > 2 mmol/L Fluid Resuscitation Fluid resuscitation indicated?: Yes Fluid Resuscitation ordered: 30 ml/kg fluid bolus ordered Sepsis Note Date exam was performed: 09/26/24 Sepsis Attestation: Sepsis re-evaluation was performed Response to fluids: Fluid responsive hypotension Charges/Coding Visit Charges Inpatient E&M: [id number] [place] [id number]
--- NOTE | 2024-09-26 07:18 | ECHOD_ITS ---
Reason For Study Reason For Study: PE Procedure This was a 2D Doppler, Color Flow transthoracic echocardiogram. The study was technically limited. Definity declined by patient due to no IV access. Exam performed portable in ICU/CCU. Left Ventricle Normal left ventricle. The estimated ejection fraction is 55???60 %. Right Ventricle Mildly dilated right ventricle. Mildly decreased right ventricular systolic function. Atria Normal left atrium. The right atrium is moderately enlarged. Mitral Valve The mitral valve is structurally normal. No prolapse or stenosis seen. Tricuspid Valve Normal tricuspid valve. Mild tricuspid valve insufficiency. Aortic Valve Trisinus/trileaflet aortic valve. Pulmonic Valve The pulmonic valve is not well visualized. Great Vessels The aortic root is not well visualized. Pericardium/Pleural No pericardial effusion. MMode/2D Measurements & Calculations LAV(MOD-bp): 50.6 ml LA A4 area: 22.4 cm2 LA dimension(2D): 3.5 cm LAV(MOD-bp) Indexed: 21.3 ml/m2 LAV(MOD-sp2): 34.0 ml LAV(MOD-sp4): 72.6 ml RA A4 area: 20.6 cm2 Doppler Measurements & Calculations Ao V2 max: 185.7 cm/sec LV V1 max: 136.9 cm/sec PA V2 max: 109.1 cm/sec Ao max P.8 mmHg LV V1 max P.5 mmHg PA V2 mean: 75.6 cm/sec Ao V2 mean: 125.5 cm/sec LV V1 mean P.0 mmHg Ao mean P.3 mmHg LV V1 mean: 92.8 cm/sec Ao V2 VTI: 31.8 cm LV V1 VTI: 26.0 cm AV (velocity ratio): 0.82 TR max alka: 267.9 cm/sec TR max P.7 mmHg ECHO/Echo Complete Interpretation Summary The estimated ejection fraction is 55???60 %. Normal LV systolic function Mildly dilated RV with mild RV systolic dysfunction No previous echo to compare. Ordering Physician: Rubio Nelson Referring Physician: Lorenzo Hernandez Performed By: Argelia Lopez RCS
--- NOTE | 2024-09-26 10:00 | NURSING ---
Heparin held at this time d/t RAC IV leakage and infiltration. Awaiting PICC placement. MD and lab aware of no IV access and pending labs.
--- NOTE | 2024-09-26 11:14 | RAD_ITS ---
EXAM: XR Chest, 1 View CLINICAL INDICATION: LINE PLACEMENT TECHNIQUE: Frontal view of the chest. COMPARISON: No relevant prior studies available. FINDINGS: LUNGS AND PLEURAL SPACES: See below. HEART: Unremarkable. No cardiomegaly. MEDIASTINUM: Unremarkable. Normal mediastinal contour. BONES/JOINTS: Unremarkable. No acute fracture. TUBES, LINES AND DEVICES: Right sided PICC line placement. The distal tip is in the mid SVC. No pneumothorax. RAD/CXR for Line Placement IMPRESSION: Right sided PICC line placement. The distal tip is in the mid SVC. No pneumot horax. Reading Location: [id number]
[2024-09-26] MEDS: Cholecalciferol (VIT D3) 25 MCG TABLET (1,000 UNITS) PO (11:32)
[2024-09-26 12:15] LABS: Hematocrit 37.8 % (40-54); Hemoglobin 12.4 g/dL (13.0-16.5); Immature Granulocytes Count 0.210 X10^3/uL (0.0-0.0); Mean Corp Hgb Conc 32.8 g/dL (32-36); Mean Corpuscular Volume 95.5 fL (80-94); Mean Platelet Vol. 11.2 fl (6.2-12.0); NRBC Flagged by Analyzer 0 % (0-5); POSITIVE COUNT YES; POSITIVE DIFFERENTIAL YES; POSITIVE MORPHOLOGY YES; Platelet Count 78 K/mm3 (150-450); RBC Distribution Width CV 18.9 % (11.6-14.6); RBC Distribution Width SD 66.1 fl (35.1-43.9); Red Blood Count 3.96 M/mm3 (4.6-6.2); White Blood Count 9.1 K/mm3 (4.4-11.0)
--- NOTE | 2024-09-26 12:16 | CASEMGMT ---
CHANDLER FRANKLIN Assessment: Face to Face with pt for initial transition planning/care coordination assessment. CHANDLER FRANKLIN introduced self and role at [facility], pt voices understanding and consents to assessment. Pt is A&O x4 and answers all questions appropriately at this time. Care providers, pharmacy, and demographics verified/updated. Strata: 3 Admitting Dx: Sepsis of unknown origin with fall PCP: Ever Specialists: Beto, Oncologist; Socrates, Radiology oncology, Amber; podiatry [facility]: [facility], [facility] Prescription Benefit: yes LNOK: , Meena; BENSON, Joshua Living Arrangements: Pt lives with in a 1 level home with 2 steps to enter. ADLs: Pt reports he is I at home with ADLs and IADLs. Transportation: Pt drives self and denies concerns with transportation. DME: CPAP, Grab bars, walker, cane, shower bench. HHC/SNF: Pt denies Hx of. Pt states no concerns with going home at time of dc. Pt states no further concerns/needs. CM to follow. Advised pt to ask CM if any further question/concerns/needs arise, voices understanding. Pt Goal: Pt would like to return home at DC. Plan: Home with family support. Follow therapy for recommendations. Sadaf ARTEAGA CM
[2024-09-26 12:18] LABS: Differential Indicated SCAN CRITERIA MET
[2024-09-26 12:28] LABS: Partial Thromboplast Time 33.8 Seconds (24.1-36.2)
[2024-09-26 12:34] LABS: AST(SGOT) 18 U/L (<=37); Alanine Aminotransfer ALT/SGPT 25 U/L (<=46); Albumin, Serum 3.4 g/dL (3.4-4.8); Alkaline Phosphatase 83 U/L (40-129); Anion Gap 14 (5-15); BUN 22 mg/dL (4-19); BUN/Creat Ratio 21.6 RATIO (10-20); Calcium,Total 8.6 mg/dL (7.6-11.0); Carbon Dioxide 22.4 mmol/L (21.0-32.0); Chloride 97 mmol/L (98-108); Cholesterol 140 mg/dL (<=200); Estimated Creatinine Clearance 87.86 ml/min (50-250); Globulin 2.3 g/dL (2.2-4.2); Glucose 163 mg/dL (70-99); Low Density Lipoprotein Calc. 43 mg/dL; Potassium 3.5 mmol/L (3.3-5.1); Triglycerides 92 mg/dL; Very Low Density Lipoprotein 18 mg/dL (5-40); cholesterol:hdl ratio screen 1.79
[2024-09-26 12:43] LABS: Anisocytosis 1+
--- NOTE | 2024-09-26 13:02 | NURSING ---
Bleeding noted from under the PICC dressing. PICC dressing taken dose, surgicel place over insertion site. New CHG dressing applied. Pressure dressing applied over PICC. Will monitor.
[2024-09-26] MEDS: Vancomycin HCl 1,500 MG in 0.9% Normal Saline (500mL Bag) 500 ML 250 MG IV (13:39)
[2024-09-26] MEDS: Mineral Oil/Petrolatum Cr 1.75oz Bottle 1 APPLIC TOPICAL (20:48)
[2024-09-27] VITALS (8 sets, daily range): BP systolic 93–119; BP diastolic 50–96; PULSE 53–72; RESP 14–18; TEMP 36.5–36.8; O2SAT 94–98; BMI 33.5
[2024-09-27] MEDS: MELATONIN 3 MG TABLET 6 MG PO (00:37)
[2024-09-27] MEDS: Vancomycin HCl 1,500 MG in 0.9% Normal Saline (500mL Bag) 500 ML 250 MG IV (03:32)
[2024-09-27] MEDS: 0.9% Saline Lock 10 ML Syringe IV ×3 (04:09→22:03)
[2024-09-27 04:31] LABS: Hematocrit 35.3 % (40-54); Hemoglobin 11.7 g/dL (13.0-16.5); Immature Granulocytes Count 0.240 X10^3/uL (0.0-0.0); Mean Corp Hgb Conc 33.1 g/dL (32-36); Mean Corpuscular Volume 95.7 fL (80-94); Mean Platelet Vol. 10.7 fl (6.2-12.0); NRBC Flagged by Analyzer 0 % (0-5); POSITIVE COUNT YES; POSITIVE DIFFERENTIAL YES; POSITIVE MORPHOLOGY YES; Platelet Count 87 K/mm3 (150-450); RBC Distribution Width CV 19.1 % (11.6-14.6); RBC Distribution Width SD 66.5 fl (35.1-43.9); Red Blood Count 3.69 M/mm3 (4.6-6.2); White Blood Count 13.7 K/mm3 (4.4-11.0)
[2024-09-27 04:52] LABS: Differential Indicated SCAN CRITERIA MET
[2024-09-27 04:59] LABS: Anion Gap 15 (5-15); BUN 22 mg/dL (4-19); BUN/Creat Ratio 19.0 RATIO (10-20); Calcium,Total 8.9 mg/dL (7.6-11.0); Carbon Dioxide 23.1 mmol/L (21.0-32.0); Chloride 98 mmol/L (98-108); Estimated Creatinine Clearance 79.37 ml/min (50-250); Glucose 154 mg/dL (70-99); Magnesium 2.0 mg/dL (1.5-2.2); Potassium 3.3 mmol/L (3.3-5.1)
[2024-09-27] MEDS: Piperacil/Tazobactam 3.375 GM in 0.9% Normal Saline (50mL MB+) 50 ML IV ×3 (06:18→22:01)
[2024-09-27 06:43] LABS: Anisocytosis RARE; Differential Comment SCANNED
--- NOTE | 2024-09-27 07:59 | PN.HOSP_ITS ---
Reason for Visit Reason for Visit: Diagnoses Sepsis, unspecified organism (09/25/24) Malignant neoplasm of base of tongue (09/25/24) Bandemia (09/25/24) Elevated white blood cell count, unspecified (09/25/24) Obesity, class 1 (09/25/24) Other disorders of bilirubin metabolism (09/25/24) Acidosis, unspecified (09/25/24) Other pulmonary embolism without acute cor pulmonale (09/25/24) Orthostatic hypotension (09/25/24) Radiodermatitis, unspecified (09/25/24) Other specified injuries of thorax, initial encounter (09/25/24) Laceration without foreign body of left elbow, initial encounter (09/25/24) Unspecified fall, initial encounter (09/25/24) Subjective Subjective Gram Positive Cocci [place] Count 80,000-100,000 CFU/mL Objective Data Objective Data Vital Signs: Vital Signs Temp Pulse Resp BP Pulse Ox O2 Del Method FiO2 98.2 F 65 18 118/66 95 Room Air 21 09/27/24 04:13 09/27/24 06:50 09/27/24 06:50 09/27/24 04:13 09/27/24 06:50 09/27/24 06:50 09/27/24 05:35 Oxygen Delivery Method Room Air Weight: 118.3 kg Body Mass Index (BMI) 33.5 Intake & Output: Intake and Output for Last 24 Hours 09/25/24 09/26/24 09/27/24 23:59 23:59 23:59 Intake Total 1050 / 1050 4157.63 / 4157.63 580 / 580 Output Total 1575 / 1575 Balance 1050 / 1050 2582.63 / 2582.63 580 / 580 Medical Nutrition Assessment Dietitian: Malnutrition Criteria Met Start: 09/26/24 10:39 Freq: Status: Active Protocol: Document 09/26/24 10:39 DELIA (Rec: 09/26/24 10:39 DELIA [id number]) Nutrition Malnutrition Evidence of Yes Malnutrition Exists Malnutrition (severe Chronic ): Evidenced By Suboptimal Energy Intake (Severe),Weight Loss (Severe) Clinical Problem Difficulty Etiology swallowing related to edentulous/tongue cancer Signs/Symptoms as evidenced by need for modified consistency diet Status Active Problem Chronic Disease or Condition Related Malnutrition Etiology relatet to head and neck cancer (squamous cell cancer to tongue) Signs/Symptoms as evidenced by 22% unplanned wt loss x 4-5 mo and 1.8% wt loss x 2 wks, po intake meeting < 75% of estimated nutritional needs and EN for primary source of nutrition. Status Active Problem Recommendation Dietitian Rec bolus feed Jevity 1.5 300 ml w/ 110 ml water Recommendations/ before and after each feed 5x/day during waking hours Changes to provide ~ 2250 fabiola/ 96 gm pro / 2240 ml free water/ day. Continue liberal Regular diet w/ pureed consistency as ordered Will order 8 oz ensure plus high protein w/ breakfast and magic cup ice cream w/ lunch and dinner for increased nutrition if consumed. Lab / Micro Data 09/27/24 04:17 09/27/24 04:07 Labs: Laboratory Results - last 24 hr 09/26/24 11:55: WBC 9.1, RBC 3.96 L, Hgb 12.4 L, Hct 37.8 L, MCV 95.5 H, MCH 31.3, MCHC 32.8, RDW Std Deviation 66.1 H, RDW Coeff of Neftali 18.9 H, Plt Count 78 L, MPV 11.2, Immature Gran % (Auto) 2.300 H, Neut % (Auto) 93.7 H, Lymph % (Auto) 1.5 L, [place] % (Auto) 2.3, Eos % (Auto) 0.0, Baso % (Auto) 0.2, Absolute Neuts (auto) 8.6 H, Absolute Lymphs (auto) 0.14 L, Nucleated RBC % 0, Platelet Estimate MOD DEC, Anisocytosis 1+, APTT 33.8, Sodium 133, Potassium 3.5, C hloride 97 L, Carbon Dioxide 22.4, Anion Gap 14, BUN 22 H, Creatinine 1.01, Estim Creat Clear Calc 87.86, Est GFR (MDRD) Non-Af 79, BUN/Creatinine Ratio 21.6 H, Glucose 163 H, Lactic Acid 1.1, Calcium 8.6, Total Bilirubin 1.81 H, AST 18, ALT 25, Alkaline Phosphatase 83, Total Protein 5.7 L, Albumin 3.4, Globulin 2.3, Albumin/Globulin Ratio 1.5, Triglycerides 92, Cholesterol 140, LDL Cholesterol, Calc 43, VLDL Cholesterol 18, HDL Cholesterol 78, Cholesterol/HDL Ratio 1.79 09/27/24 04:07: Sodium 136, Potassium 3.3, Chloride 98, Carbon Dioxide 23.1, Anion Gap 15, BUN 22 H, Creatinine 1.15, Estim Creat Clear Calc 79.37, Est GFR (MDRD) Non-Af 68, BUN/Creatinine Ratio 19.0, Glucose 154 H, Calcium 8.9, P hosphorus 2.6 L, Magnesium 2.0 09/27/24 04:17: WBC 13.7 H, RBC 3.69 L, Hgb 11.7 L, Hct 35.3 L, MCV 95.7 H, MCH 31.7, MCHC 33.1, RDW Std Deviation 66.5 H, RDW Coeff of Neftali 19.1 H, Plt Count 87 L, MPV 10.7, Immature Gran % (Auto) 1.800 H, Neut % (Auto) 88.9 H, Lymph % (Auto) 1.7 L, [place] % (Auto) 7.5, Eos % (Auto) 0.0, Baso % (Auto) 0.1, Absolute Neuts (auto) 12.2 H, Absolute Lymphs (auto) 0.23 L, Nucleated RBC % 0, Differential Comment SCANNED, Platelet Estimate MOD DEC, Anisocytosis RARE Micro: Microbiology 09/25/24 23:47 Urine, Random Urine Culture - Preliminary Gram Positive Cocci Radiography Diagnostic Testing: Radiology Impression Chest X-Ray 09/26/24 11:14 IMPRESSION: Right sided PICC line placement. The distal tip is in the mid SVC. No pneumothorax. Reading Location: [facility] Physical Exam Narrative GENERAL: cooperative HEENT: Radiation dermatitis on the right side of the neck EYES; Anicteric, Normal Conjunctiva NECK; supple, normal thyroid, RESPIRATORY: Diminished to auscultation CARDIOVASCULAR: Regular S1 S2, GI: soft, normoactive bowel sounds, : No Renal angle tenderness; EXTREMITIES: No edema, no clubbing, MUSCULOSKELETAL: no muscle wasting NEURO: Awake; no lateralizing signs. 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 Patient was found to be hypotensive with an area of erythema and induration with some pus around the neck. An assessment of sepsis made admitted to the intensive care unit for further management 1. Sepsis ? Only abnormal finding was positive leukocyte esterases on patient urinalysis. With questionable cellulitis involving the right side of the neck in the setting of his radiation dermatitis. Patient was started on broad-spectrum antibiotic therapy with piperacillin tazobactam as well as vancomycin culture sent. Patient was resuscitated with IV fluids per protocol and did not require pressors ? 09/27/2024 patient urine cultures positive Gram Positive Cocci [place] Count 80,000-100,000 CFU/mL. Patient remains on broad-spectrum antibiotic therapy with vancomycin and Zosyn pending final culture result 2. Orthostatic hypotension ? Leading to fall this was thought to be secondary to severe dehydration exacerbated by the use of antihypertensives. Admitted to the intensive care unit patient was resuscitated with IV fluids with every shift orthostatic check and monitoring of electrolyte 3. Bilateral pulmonary embolism ? CT of the chest obtained on admission did show bilateral pulmonary emboli, mild clot burden. Negative right heart strain.. 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 Xarelto held (doubt treatment failure given low clot burden) 4. Hypertension ? Blood pressure was low on admission antihypertensives held 5. COPD ? Currently not in exacerbation aerosol treatment as needed 6. Obstructive sleep apnea ? Patient is on CPAP at night 7. Depression with anxiety ? Patient is on Celexa 8. Class I obesity with BMI of 31.6 ? Complicating care weight loss advised 9. Dyslipidemia ?Patient is on statin therapy, continued at home dose Charges/Coding Visit Charges Inpatient E&M: 96748 Subs Hosp L2
[2024-09-27] MEDS: Cholecalciferol (VIT D3) 25 MCG TABLET (1,000 UNITS) PO (10:23)
[2024-09-27] MEDS: Vancomycin Trough/Random Due 1 LAB MC (12:25)
--- NOTE | 2024-09-27 13:23 | PN.CC_ITS ---
Objective Data Objective Data Vital Signs: Vital Signs Last response 3 Temperature 36.7 C 09/27/24 10:18 Temperature Source Oral 09/27/24 10:18 Pulse Rate 60 09/27/24 10:18 Pulse Strength Normal (2+) 09/26/24 22:00 Respiratory Rate 15 09/27/24 10:18 Respiratory Effort Normal, Non-Labored 09/27/24 10:00 Respiratory Depth Normal 09/27/24 10:00 Respiratory Pattern Normal 09/27/24 10:00 Blood Pressure 119/57 L 09/27/24 10:18 Blood Pressure Mean 77 09/27/24 10:18 Blood Pressure Source Monitor 09/27/24 10:18 Blood Pressure Position Semi-Fowlers 09/27/24 10:18 Blood Pressure Location Left Forearm 09/27/24 10:18 Pulse Ox 98 09/27/24 10:18 Oxygen Delivery Method Room Air 09/27/24 10:18 Fraction of Inspired Oxygen (FIO2) 21 09/27/24 05:35 I&O: I&O Last 24 Hours 3 09/26/24 09/27/24 09/27/24 23:59 11:59 23:59 Intake Total 914.9 / 4157.63 630 / 630 Output Total 250 / 1575 Balance 664.9 / 2582.63 630 / 630 I&O: Total Stay 3 09/25/24 19:54 thru 09/27/24 10:24 Intake Total 5837.63 Output Total 1575 Balance 4262.63 Current Meds Ordered / Administered: Current meds ordered / Administered 3 Generic Name Dose Route Start Last Admin Trade Name Anh PRN Reason Stop Dose Admin Acetaminophen 500 mg 09/26/24 00:29 09/27/24 03:39 Acetaminophen 500 Mg Tablet PO 500 mg Q6H PRN PRN Administration Pain 1-5/10 or Fever Acetaminophen 1,000 mg 09/27/24 14:00 Acetaminophen 500 Mg Tablet PO Q8 WILMAN Albuterol Sulfate 2.5 mg 09/26/24 00:29 Albuterol 2.5 Mg/3 Ml Vial.Neb. INHALATION Q4H PRN PRN shortness of breath/wheezing Albuterol/Ipratropium 3 ml 09/26/24 06:00 09/27/24 06:49 Ipratropium/Albuterol Sulfate 3 Ml Ampul.Neb INHALATION 3 ml Q6HWA.RT WILMAN Administration Atorvastatin Calcium 40 mg 09/26/24 22:00 09/26/24 20:42 Atorvastatin Calcium 40 Mg Tablet PO 40 mg QHS WILMAN Administration Cholecalciferol 25 mcg 09/26/24 10:00 09/27/24 10:23 Cholecalciferol (Vit D3) 25 Mcg Tablet (1,000 Units) PO 25 mcg DAILY WILMAN Administration Citalopram Hydrobromide 20 mg 09/26/24 22:00 09/26/24 20:42 Citalopram 20 Mg Tablet PO 20 mg QHS WILMAN Administration Dexamethasone 4 mg 09/26/24 08:00 09/27/24 10:23 Dexamethasone 4 Mg Tablet PO 4 mg DAILYCM WILMAN Administration Enoxaparin Sodium 110 mg 09/26/24 22:00 09/27/24 10:23 Enoxaparin 120 Mg/0.8 Ml Syringe SC 110 mg Q12 WILMAN Administration Enteral Nutritional Formula 300 ml 09/27/24 14:00 Jevity 1.5. 1,000 Ml Bottle GT 5X/DAY WILMAN Fluticasone Propionate 2 spray 09/26/24 00:29 Fluticasone 0.05% 1 [place] Nasal.Sry NASAL DAILY PRN allergy symptoms Hydromorphone HCl 0.5 - 1 mg 09/27/24 10:45 Hydromorphone 1 Mg/Ml Syringe IV Q3H PRN PRN Pain Score 6-10 Vancomycin IV-PHARMACY TO DOSE 500 mls @ 250 mls/hr 09/26/24 00:29 1 each/ Sodium Chloride IV PRN PRN Rx to Dose Protocol Piperacillin Sod/Tazobactam 50 mls @ 12.5 mls/hr 09/26/24 00:29 09/27/24 10:24 Sod 3.375 gm/ Sodium Chloride IV Infused Q8 WILMAN Infusion Pantoprazole Sodium 40 mg/ 100 mls @ 330 mls/hr 09/26/24 00:29 09/26/24 21:04 Sodium Chloride IV Infused 2200 WILMAN Infusion Sodium Chloride 250 mls @ 15 mls/hr 09/26/24 00:30 09/26/24 01:23 IV 0 mls/hr .[id number] PRN Infusion Saline Flush Sodium Chloride 250 mls @ 15 mls/hr 09/26/24 00:30 IV .[id number] PRN Additional IVPB Infusion Vancomycin HCl 1,500 mg/ 530 mls @ 250 mls/hr 09/26/24 14:00 09/27/24 05:45 Sodium Chloride IV Infused Q12H [facility] Infusion Lidocaine/Diphenhydr/Alum/Mg/Simeth 15 ml 09/26/24 00:29 Bmx Liquid 180 Ml PO 4X/DAY PRN PRN mouth pain Lidocaine/Prilocaine 1 gm 09/26/24 00:29 Lidocaine/Prilocaine Hcl 5 Gm Tube TOPICAL PRN PRN PORT ACCESS Protocol Loratadine 10 mg 09/26/24 00:29 Loratadine 10 Mg Tablet PO DAILY PRN allergy symptoms Melatonin 6 mg 09/27/24 00:25 09/27/24 00:37 Melatonin 3 Mg Tablet PO 6 mg QHS PRN Administration SLEEP Multi-Ingredient Ointment 1 applic 09/26/24 20:12 09/26/24 20:48 Mineral Oil/Petrolatum Cr 1.75oz Bottle TOPICAL 1 applic Q6H PRN PRN Administration WOUND CARE Protocol Oxycodone HCl 10 mg 09/27/24 10:45 09/27/24 11:26 Oxycodone 5 Mg Tablet PO 10 mg Q4H PRN PRN Administration Pain Score 4-10 Prochlorperazine Edisylate 5 mg 09/26/24 00:29 Prochlorperazine 10 Mg/2 Ml Vial IV Q4H PRN PRN NAUSEA/VOMITING Rivaroxaban 20 mg 09/26/24 17:00 Rivaroxaban 20 Mg Tablet PO 1700 [facility] Sodium Chloride 10 - 40 ml 09/26/24 00:30 09/27/24 06:17 0.9% Saline Lock 10 Ml Syringe IV 10 ml UD PRN Administration SALINE FLUSH Vancomycin Protocol 1 lab 09/27/24 12:30 09/27/24 12:25 Vancomycin Trough/Random Due MC 09/27/24 14:30 1 lab DAILY [facility] Administration Medical Records Data Medical Nutrition Assessment Dietitian: Malnutrition Criteria Met Start: 09/26/24 10:39 Freq: Status: Active Protocol: Document 09/27/24 10:54 SLA (Rec: 09/27/24 10:54 SLA [id number]) Nutrition Malnutrition Evidence of Yes Malnutrition Exists Malnutrition (severe Chronic ): Evidenced By Suboptimal Energy Intake (Severe),Weight Loss (Severe) Clinical Problem Difficulty Etiology swallowing related to edentulous/tongue cancer Signs/Symptoms as evidenced by need for modified consistency diet Status Active Problem Chronic Disease or Condition Related Malnutrition Etiology relatet to head and neck cancer (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 Status Active Problem Recommendation Dietitian Rec bolus feed Jevity 1.5 300 ml w/ 110 ml water Recommendations/ before and after each feed 5x/day during waking hours Changes to provide ~ 2250 fabiola/ 96 gm pro / 2240 ml free water/ day. Continue liberal Regular diet w/ pureed consistency as ordered Continue 8 oz ensure plus high protein w/ breakfast and magic cup ice cream w/ lunch and dinner for increased nutrition if consumed. Lab / Micro Data 09/27/24 04:17 09/27/24 04:07 Labs: Laboratory Results - last 24 hr 09/27/24 04:07: Sodium 136, Potassium 3.3, Chloride 98, Carbon Dioxide 23.1, Anion Gap 15, BUN 22 H, Creatinine 1.15, Estim Creat Clear Calc 79.37, Est GFR (MDRD) Non-Af 68, BUN/Creatinine Ratio 19.0, Glucose 154 H, Calcium 8.9, P hosphorus 2.6 L, Magnesium 2.0 09/27/24 04:17: WBC 13.7 H, RBC 3.69 L, Hgb 11.7 L, Hct 35.3 L, MCV 95.7 H, MCH 31.7, MCHC 33.1, RDW Std Deviation 66.5 H, RDW Coeff of Neftali 19.1 H, Plt Count 87 L, MPV 10.7, Immature Gran % (Auto) 1.800 H, Neut % (Auto) 88.9 H, Lymph % (Auto) 1.7 L, [place] % (Auto) 7.5, Eos % (Auto) 0.0, Baso % (Auto) 0.1, Absolute Neuts (auto) 12.2 H, Absolute Lymphs (auto) 0.23 L, Nucleated RBC % 0, Differential Comment SCANNED, Platelet Estimate MOD DEC, Anisocytosis RARE Micro: Microbiology 09/25/24 23:47 Urine, Random Urine Culture - Preliminary Gram Positive Cocci Assessment and Plan . Assessment and plan: Sepsis UTI Recurrent Pulmonary Embolism Head/Neck Cancer -resumed anticoagulation; PEs result of being off ac rather than failure of treatment -now that he can swallow comfortably/safely and he has his g-tube as backup compliance should be assured -pt voiced clear understanding -await ID/S of organism growing in urine culture; anticipate he can dc home soon once an adequate oral regimen has been chosen The entirety of this encounter was done via Telemedicine Physical Exam Const alert, oriented x3 and no apparent distress HEENT normocephalic Eyes no scleral icterus Lymph Lymphatic: no lymphadenopathy noted Resp normal respiratory effort and no use of accessory muscles Effort and Inspection: able to speak in complete sentences Auscultation: clear to auscultation bilaterally Cardio regular rate, regular rhythm, S1 normal heart sound, no murmurs, no rub and no gallops GI normal to inspection, nondistended, normoactive bowel sounds Extremity no clubbing, cyanosis or edema Neuro oriented x3, moves all extremities and no focal motor deficits Psych Appearance: well kempt Subjective Subjective Feeling much better. Good appetite, no pain with swallowing. Breathing comfortably. Only complaint is some soreness in knee related to fall.
[2024-09-27 13:47] LABS: Vancomycin, Trough Level 28.7 ug/mL (5.0-15.0)
--- NOTE | 2024-09-27 14:50 | PCM.RX.CS ---
Consult Antibiotic Management Pharmacy has been consulted to manage selected antibiotic: Vancomycin Type of Intervention Type of Consult: Follow-up Labs Labs: Sodium 136 mmol/L (133-145) 09/27/24 04:07 Potassium 3.3 mmol/L (3.3-5.1) 09/27/24 04:07 Chloride 98 mmol/L (98-108) 09/27/24 04:07 Carbon Dioxide 23.1 mmol/L (21.0-32.0) 09/27/24 04:07 Anion Gap 15 (5-15) 09/27/24 04:07 BUN 22 mg/dL (4-19) H 09/27/24 04:07 Creatinine 1.15 mg/dL (0.70-1.20) 09/27/24 04:07 Est GFR (MDRD) Non-Af 68 (>60) 09/27/24 04:07 BUN/Creatinine Ratio 19.0 RATIO (10-20) 09/27/24 04:07 Glucose 154 mg/dL (70-99) H 09/27/24 04:07 Vancomycin Trough 28.7 ug/mL (5.0-15.0) H 09/27/24 12:25 Microbiology Microbiology: Microbiology 09/25/24 23:47 Urine, Random Urine Culture - Preliminary Gram Positive Cocci Goal Trough Goal Trough: 15-20 mcg/mL Pharmacy Plan for Drug Dosing Pharmacy Plan for Drug Dosing: VANCOMYCIN LEVEL RECEIVED Current Vancomycin Dose: 1500mg IV Q12hr Number of Doses Received: 3 (load + 2 scheduled doses) Vancomycin Level: 28.7 Hours Since Last Dose: 9hrs Renal Function: 1.15 Renal Function Trend: stable Lab/Micro: Bcx pending, Ucx GPC Vancomycin Plan/Comments: Patient had a trough drawn which resulted in a value of 28.7 (goal 15-20). the trough is supratherapeutic. It is noted that the 0200 scheduled dose was given at 0332, and the trough was drawn an hour earlier than ordered, so the true trough is likely lower than what resulted. Will hold vancomycin at this time and recheck a trough when the next dose would have been due. Will hold vancomycin per protocol and resume dosing once trough is <20. Pending Level: *RANDOM* 09/28/24 @0200 Pharmacy Service will continue to monitor and adjust dosing as required.
[2024-09-27] MEDS: Jevity 1.5. 1,000 ML Bottle 300 ML GT (15:31)
[2024-09-27] MEDS: Pantoprazole Sodium 40 MG in 0.9% Normal Saline (100mL MB+) 100 ML 330 MG IV (22:01)
[2024-09-28] MEDS: 0.9% Saline Lock 10 ML Syringe IV (02:10)
[2024-09-28] MEDS: Vancomycin Trough/Random Due 1 LAB MC (02:10)
[2024-09-28 02:44] LABS: Hematocrit 31.7 % (40-54); Hemoglobin 10.4 g/dL (13.0-16.5); Immature Granulocytes Count 0.170 X10^3/uL (0.0-0.0); Mean Corp Hgb Conc 32.8 g/dL (32-36); Mean Corpuscular Volume 96.1 fL (80-94); Mean Platelet Vol. 11.3 fl (6.2-12.0); NRBC Flagged by Analyzer 0 % (0-5); POSITIVE COUNT YES; POSITIVE DIFFERENTIAL YES; POSITIVE MORPHOLOGY YES; Platelet Count 68 K/mm3 (150-450); RBC Distribution Width CV 19.1 % (11.6-14.6); RBC Distribution Width SD 67.0 fl (35.1-43.9); Red Blood Count 3.30 M/mm3 (4.6-6.2); White Blood Count 9.4 K/mm3 (4.4-11.0)
[2024-09-28 03:01] LABS: Differential Indicated SCAN CRITERIA MET
[2024-09-28 03:25] LABS: Anion Gap 11 (5-15); BUN 19 mg/dL (4-19); BUN/Creat Ratio 18.6 RATIO (10-20); Calcium,Total 8.6 mg/dL (7.6-11.0); Carbon Dioxide 25.1 mmol/L (21.0-32.0); Chloride 98 mmol/L (98-108); Estimated Creatinine Clearance 92.19 ml/min (50-250); Glucose 131 mg/dL (70-99); Potassium 3.4 mmol/L (3.3-5.1); Vancomycin, Random Level 17.8 ug/mL (0.0-15.0)
[2024-09-28 03:30] VITALS: BP 105/59; PULSE 67; RESP 16; TEMP 36.5; O2SAT 95
--- NOTE | 2024-09-28 03:34 | PCM.RX.CS ---
Consult Antibiotic Management Pharmacy has been consulted to manage selected antibiotic: Vancomycin Type of Intervention Type of Consult: Follow-up Suspected Infection Suspected Infection: Sepsis Labs Labs: Sodium 134 mmol/L (133-145) 09/28/24 02:05 Potassium 3.4 mmol/L (3.3-5.1) 09/28/24 02:05 Chloride 98 mmol/L (98-108) 09/28/24 02:05 Carbon Dioxide 25.1 mmol/L (21.0-32.0) 09/28/24 02:05 Anion Gap 11 (5-15) 09/28/24 02:05 BUN 19 mg/dL (4-19) 09/28/24 02:05 Creatinine 0.99 mg/dL (0.70-1.20) 09/28/24 02:05 Est GFR (MDRD) Non-Af 81 (>60) 09/28/24 02:05 BUN/Creatinine Ratio 18.6 RATIO (10-20) 09/28/24 02:05 Glucose 131 mg/dL (70-99) H 09/28/24 02:05 Vancomycin Trough 28.7 ug/mL (5.0-15.0) H 09/27/24 12:25 Random Vancomycin 17.8 ug/mL (0.0-15.0) H 09/28/24 02:05 Microbiology Microbiology: Microbiology 09/25/24 23:47 Urine, Random Urine Culture - Preliminary Gram Positive Cocci Dosing Weight Weight used for dosin kg Estimated Creatinine Clearance Estimated Creatinine Clearance: 92 Goal Trough Goal Trough: 15-20 mcg/mL Pharmacy Plan for Drug Dosing Pharmacy Plan for Drug Dosing: Random vancomycin level was 17.8. This was a level 22.5hrs post-dose. Per dosing calculator, a new dose of 1000mg q12h should give an estimated trough of 16.9. Will initiate this now & will order the next level prior to the fourth dose of the new regimen. Pharmacy Service will continue to monitor and adjust dosing as required. Follow-Up Labs Follow-Up Labs: Trough: Vancomycin Date/Time Labs Ordered Labs to be done on [date and time ordered]: 09/29/24 @1500
[2024-09-28 04:12] LABS: Anisocytosis 2+; Differential Comment SCANNED
[2024-09-28 04:13] LABS: Schistocytes RARE; Tear Drop Cell 1+
[2024-09-28] MEDS: Vancomycin IV 1,000 MG/200 ML BAG 200 MG IV (04:26)
[2024-09-28] MEDS: Jevity 1.5. 1,000 ML Bottle 300 ML GT (05:41)
[2024-09-28] MEDS: Piperacil/Tazobactam 3.375 GM in 0.9% Normal Saline (50mL MB+) 50 ML IV (05:41)
[2024-09-28 07:36] VITALS: PULSE 62; RESP 18
--- NOTE | 2024-09-28 09:22 | PCM.PN.HOSP ---
Reason for Visit Reason for Visit: Diagnoses Sepsis, unspecified organism (09/25/24) Malignant neoplasm of base of tongue (09/25/24) Bandemia (09/25/24) Elevated white blood cell count, unspecified (09/25/24) Obesity, class 1 (09/25/24) Other disorders of bilirubin metabolism (09/25/24) Acidosis, unspecified (09/25/24) Other pulmonary embolism without acute cor pulmonale (09/25/24) Orthostatic hypotension (09/25/24) Radiodermatitis, unspecified (09/25/24) Other specified injuries of thorax, initial encounter (09/25/24) Laceration without foreign body of left elbow, initial encounter (09/25/24) Unspecified fall, initial encounter (09/25/24) Subjective Subjective Feeling well. Ready to go home. Objective Data Objective Data Vital Signs: Vital Signs Temp Pulse Resp BP Pulse Ox O2 Del Method FiO2 36.5 C L 62 18 105/59 L 95 Room Air 21 09/28/24 03:30 09/28/24 07:36 09/28/24 07:36 09/28/24 03:30 09/28/24 03:30 09/28/24 08:04 09/28/24 03:51 Oxygen Delivery Method Room Air Weight: 118.3 kg Body Mass Index (BMI) 33.5 Intake & Output: Intake and Output for Last 24 Hours 09/26/24 09/27/24 09/28/24 23:59 23:59 23:59 Intake Total 4157.63 / 4157.63 2685 / 2685 610 / 610 Output Total 1575 / 1575 475 / 1100 1075 / 1075 Balance 2582.63 / 2582.63 2210 / 1585 -465 / -465 Medical Nutrition Assessment Dietitian: Malnutrition Criteria Met Start: 09/26/24 10:39 Freq: Status: Active Protocol: Document 09/27/24 10:54 DELIA (Rec: 09/27/24 10:54 DELIA [id number]) Nutrition Malnutrition Evidence of Yes Malnutrition Exists Malnutrition (severe Chronic ): Evidenced By Suboptimal Energy Intake (Severe),Weight Loss (Severe) Clinical Problem Difficulty Etiology swallowing related to edentulous/tongue cancer Signs/Symptoms as evidenced by need for modified consistency diet Status Active Problem Chronic Disease or Condition Related Malnutrition Etiology relatet to 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 Status Active Problem Recommendation Dietitian Rec bolus feed Jevity 1.5 300 ml w/ 110 ml water Recommendations/ before and after each feed 5x/day during waking hours Changes to provide ~ 2250 fabiola/ 96 gm pro / 2240 ml free water/ day. Continue liberal Regular diet w/ pureed consistency as ordered Continue 8 oz ensure plus high protein w/ breakfast and magic cup ice cream w/ lunch and dinner for increased nutrition if consumed. Lab / Micro Data 09/28/24 02:05 09/28/24 02:05 Labs: Laboratory Results - last 24 hr 09/27/24 12:25: Vancomycin Trough 28.7 H 09/28/24 02:05: WBC 9.4, RBC 3.30 L, Hgb 10.4 L, Hct 31.7 L, MCV 96.1 H, MCH 31.5, MCHC 32.8, RDW Std Deviation 67.0 H, RDW Coeff of Neftali 19.1 H, Plt Count 68 L, MPV 11.3, Immature Gran % (Auto) 1.800 H, Neut % (Auto) 86.7 H, Lymph % (Auto) 1.9 L, [place] % (Auto) 9.3, Eos % (Auto) 0.1, Baso % (Auto) 0.2, Absolute Neuts (auto) 8.2 H, Absolute Lymphs (auto) 0.18 L, Nucleated RBC % 0, Differential Comment SCANNED, Platelet Estimate MOD DEC, Anisocytosis 2+, Tear Drop Cells 1+, Ovalocytes 2+, Schistocytes RARE, Sodium 134, Potassium 3.4, Chloride 98, Carbon Dioxide 25.1, Anion Gap 11, BUN 19, Creatinine 0.99, Estim Creat Clear Calc 92.19, Est GFR (MDRD) Non-Af 81, BUN/Creatinine Ratio 18.6, Glucose 131 H, Calcium 8.6, Random Vancomycin 17.8 H Micro: Microbiology 09/25/24 20:30 Blood Culture (Wb) - Arm Left Blood Culture - Preliminary No growth in 48 hours. 09/25/24 20:31 Blood Culture (Wb) - Arm Right Blood Culture - Preliminary No growth in 48 hours. 09/25/24 23:47 Urine, Random Urine Culture - Final Enterococcus faecalis Physical Exam Const alert and no apparent distress HEENT head/scalp atraumatic and moist oral mucous membranes Resp normal respiratory effort and no retractions Extremity Extremity Narrative: No knee effusions. No tenderness palpation of his knees. Assessment & Plan Assessment/Plan (1) Bilateral pulmonary embolism: PLAN: on rivaroxaban echo pending DC VQ, won't change mgmt at this time. can follow up with pulmonary as outpt and determine if necessary to evaluate for CTEPH (2) Abnormal urinalysis: PLAN: UCx showing 80-100k Enterococcus faecalis. UA showed only 0-5 WBCs. Change abx to amoxicillin (3) Hypotension: PLAN: POA. Resolved. possibly due to dehydration along with antihypertensives. Responded to IVF Blood pressure still on the low end of normal so we will continue to hold antihypertensives. PLAN: Plan HTN: antihypertensives held COPD: stable. 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 Follow-up with oncology. VTE prophylaxis: not indicated as already anticoagulated.
[2024-09-28] MEDS: Cholecalciferol (VIT D3) 25 MCG TABLET (1,000 UNITS) PO (09:26)
[2024-09-28 09:30] VITALS: BP 92/57; PULSE 63; RESP 17; TEMP 36.3; O2SAT 96
--- NOTE | 2024-09-28 12:52 | PCM.DC.SUM ---
Providers Date of Admission: 09/25/24 Primary Care Physician: Dr. Bulmaro Curtis MD Consultations 09/26/24 00:29 Consult: Automation Driver / Pulmonary Medicine Routine Consulting Provider: Intensivists/Pulmonary Med Reason for Consult: Sepsis of unknown origin. EMERGENT Consult: No MD Notified: Yes Date Notified: 09/26/24 Time Notified: 06:25 Method of Notification: Text Reason For Visit: SEPSIS OF UNKNOWN ORIGIN WITH FALL AND LEFT CHEST Diagnosis Discharge Diagnosis (1) Bilateral pulmonary embolism: Status: Acute Code(s): I26.99 - Other pulmonary embolism without acute cor pulmonale Plan: on rivaroxaban echo pending DC VQ, won't change mgmt at this time. can follow up with pulmonary as outpt and determine if necessary to evaluate for CTEPH (2) Abnormal urinalysis: Status: Acute Code(s): R82.90 - Unspecified abnormal findings in urine Plan: UCx showing 80-100k Enterococcus faecalis. UA showed only 0-5 WBCs. Change abx to amoxicillin (3) Hypotension: Status: Acute Code(s): I95.9 - Hypotension, unspecified Plan: POA. Resolved. possibly due to dehydration along with antihypertensives. Responded to IVF Blood pressure still on the low end of normal so we will continue to hold antihypertensives. Plan HTN: antihypertensives held COPD: stable. 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 Follow-up with oncology. VTE prophylaxis: not indicated as already anticoagulated. Medications at Discharge Home Medications atorvastatin 40 mg tablet 40 mg PO QHS 05/04/19 rivaroxaban 15 mg tablet 20 mg PO QHS 11/30/21 citalopram 20 mg tablet (Celexa) 20 mg PO QHS 05/08/22 budesonide 160 mcg-glycopyr 9 mcg-formot 4.8 mcg/actuation HFA inhaler (Breztri Aerosphere) 2 inh inhalation BID #10.7 grams 07/31/23 fluticasone furoate 27.5 mcg/actuation nasal spray,suspension (Flonase Sensimist) 2 spray intranasal DAILY PRN allergy symptoms 07/31/23 acetaminophen 500 mg capsule 500 mg PO Q6H PRN pain 05/20/24 acetaminophen 300 mg-codeine 30 mg tablet 1 - 2 tab PO Q6H PRN PRN pain 06/22/24 lidocaine-prilocaine 2.5 %-2.5 % topical cream 1 applic topical ONCE PRN port access 30 days #30 grams 06/29/24 albuterol sulfate 90 mcg/actuation aerosol inhaler 2 puff inhalation Q4H PRN shortness of breath or wheezing #1 ea 07/07/24 MAGIC MOUTH WASH (BMX) 180 mL suspension 15 ml PO .qid PRN pain #180 mL 07/21/24 dexamethasone 4 mg tablet 4 mg PO QDAY #14 tabs 09/15/24 oxycodone 5 mg capsule 5 mg PO TID PRN pain 2 weeks #80 caps 09/15/24 amoxicillin 500 mg capsule 500 mg PO Q8 #7 caps 09/28/24 lactose-reduced food with fiber 0.06 gram-1.5 kcal/mL oral liquid (Jevity 1.5 Fabiola) 300 ml G-tube 5X/DAY 30 days #9,000 mL 09/28/24 Hospital Course Operations None Procedures 2-D Echocardiogram Summary of Care Provided Minutes Spent on Discharge: 35 Hospital Course: Patient presents with single episode. Patient was hypotensive on arrival. Did respond with IV fluids. Patient did have a CTA of the chest that showed bilateral pulmonary emboli with mild clot burden. Negative for any right heart strain. Echocardiogram did not show any evidence of any heart strain with an EF of 55 to 60%. Patient was already on rivaroxaban but. There was a gap in his therapy and they felt that the PA may have been resultant from the gap in his therapy rather than treatment failure and recommended going back on rivaroxaban by pulmonary. Patient did have a urine culture that grew out 80-100,000 Enterococcus faecalis so the urinalysis was unremarkable. Will treat him empirically with amoxicillin complete a 7-day course of antibiotics. Patient to go home where he will be caring for his . The patient is unsafe to use a cane and requires a walker for ambulation in the home and the community. Medical Records Data Medical Nutrition Assessment Dietitian: Malnutrition Criteria Met Start: 09/26/24 10:39 Freq: Status: Active Protocol: Document 09/27/24 10:54 SLA (Rec: 09/27/24 10:54 [facility] [id number]) Nutrition Malnutrition Evidence of Yes Malnutrition Exists Malnutrition (severe Chronic ): Evidenced By Suboptimal Energy Intake (Severe),Weight Loss (Severe) Clinical Problem Difficulty Etiology swallowing related to edentulous/tongue cancer Signs/Symptoms as evidenced by need for modified consistency diet Status Active Problem Chronic Disease or Condition Related Malnutrition Etiology relatet to head and neck cancer (squamous cell cancer to tongue) Signs/Symptoms as evidenced by 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 Status Active Problem Recommendation Dietitian Rec bolus feed Jevity 1.5 300 ml w/ 110 ml water Recommendations/ before and after each feed 5x/day during waking hours Changes to provide ~ 2250 fabiola/ 96 gm pro / 2240 ml free water/ day. Continue liberal Regular diet w/ pureed consistency as ordered Continue 8 oz ensure plus high protein w/ breakfast and magic cup ice cream w/ lunch and dinner for increased nutrition if consumed. Weight / BMI Weight Weight: 118.3 kg Body Mass Index (BMI) 33.5 ABG / Lab / Microbiology Data 09/28/24 02:05 09/28/24 02:05 Laboratory: Laboratory Results - last 24 hr 09/27/24 12:25: Vancomycin Trough 28.7 H 09/28/24 02:05: WBC 9.4, RBC 3.30 L, Hgb 10.4 L, Hct 31.7 L, MCV 96.1 H, MCH 31.5, MCHC 32.8, RDW Std Deviation 67.0 H, RDW Coeff of Neftali 19.1 H, Plt Count 68 L, MPV 11.3, Immature Gran % (Auto) 1.800 H, Neut % (Auto) 86.7 H, Lymph % (Auto) 1.9 L, [place] % (Auto) 9.3, Eos % (Auto) 0.1, Baso % (Auto) 0.2, Absolute Neuts (auto) 8.2 H, Absolute Lymphs (auto) 0.18 L, Nucleated RBC % 0, Differential Comment SCANNED, Platelet Estimate MOD DEC, Anisocytosis 2+, Tear Drop Cells 1+, Ovalocytes 2+, Schistocytes RARE, Sodium 134, Potassium 3.4, Chloride 98, Carbon Dioxide 25.1, Anion Gap 11, BUN 19, Creatinine 0.99, Estim Creat Clear Calc 92.19, Est GFR (MDRD) Non-Af 81, BUN/Creatinine Ratio 18.6, Glucose 131 H, Calcium 8.6, Random Vancomycin 17.8 H Microbiology: Microbiology 09/25/24 20:30 Blood Culture (Wb) - Arm Left Blood Culture - Preliminary No growth in 48 hours. 09/25/24 20:31 Blood Culture (Wb) - Arm Right Blood Culture - Preliminary No growth in 48 hours. 09/25/24 23:47 Urine, Random Urine Culture - Final Enterococcus faecalis Radiography Diagnostic Testing: Radiology Impression Abdomen/Pelvis CT 09/25/24 22:42 IMPRESSION: No acute abdominopelvic finding. Reading Location: [id number] Echocardiogram 09/26/24 07:18 Interpretation Summary The estimated ejection fraction is 55???60 %. Normal LV systolic function Mildly dilated RV with mild RV systolic dysfunction No previous echo to compare. Ordering Physician: Rubio Nelson Referring Physician: Lorenzo Hernandez Performed By: Argelia Lopez RCS D/C Instructions Discharge Diet: No restrictions DC O2, CPAP, BIPAP Needs Home O2 Discharge instructions: No Meaningful Use Info Meaningful Use Meaningful Use Diagnoses (Choose all that apply): VTE Ischemic Stroke Statin Dosing Therapy Reference: STATIN DOSE THERAPY REFERENCE: * Patients > 75 years receive moderate or high dose statin therapy. * Patients 75 years or YOUNGER should receive HIGH intensity statin dose unless contraindicated. You will be required to document reason for non-treatment if statin daily dose does not meet guidelines. HIGH DOSE STATIN THERAPY DAILY Atorvastatin > than or = to 40 mg Rosuvastatin > than or = to 20 mg Amlodipine + Atorvastatin > than or = to 2.5/40 mg Ezetimibe + Simvastatin 10/80 mg Simvastatin 80mg VTE Anticoag overlap given w/in hospital stay or rx'd at or?: No Pt receive overlap for 5 days?: No Reason overlap not ordered, prescribed, or given for 5 days: Treatment Not Indicated Discharge Plan Admission Admit Date/Time: 09/25/24 23:16 Primary Reason for Your Visit: Hypertension. Pulmonary embolism. Attending Provider: Mike Gamez Primary Care Provider: Bulmaro Curtis Chi Consulting Providers: Lorenzo Hernandez; Aydin Fowler; Patrice Schultz; Rupesh Rosales; Leonel Carolina; Lorenzo Hernandez; Alfonzo Pulido; Lan Sun; Zoe Khan; Robby Jansen; Jonathon Lance; Rubio Nelson; Yissel Cao; Yas Mcneill; Odalis Gerber; Modesto Burk; Adriano Cruz; Asa Toure; Reese Willard; Gisell Xiong; Alanis Ramos; Zeeshan Paul; Franky Sigala; Getachew Galindo; Lorenzo Estes Instructions Additional Instructions / Restrictions: Your blood pressure was low when you presented. This may have been related with your hypertension medications which are can be holding for now. Do want you to follow-up with your primary care doctor to see about those being resumed at a later point. You do have some blood clots still that remain in your lungs. Continue with the Xarelto that you are previously taking. Discharge Orders/Prescriptions Prescriptions: New amoxicillin 500 mg Capsule 500 mg PO Q8 Qty: 7 0RF Jevity 1.5 Fabiola 0.06 gram-1.5 kcal/mL Liquid 300 ml G-tube 5X/DAY 30 Days Qty: 9000 0RF Continued rivaroxaban 15 mg tablet 20 mg PO QHS Patient Comments: LAST DAY 06/28/24 FOR SURGERY ON 07/02/24 Rx Instructions: must administer with evening meal citalopram [Celexa] 20 mg tablet 20 mg PO QHS Flonase Sensimist 27.5 mcg/actuation spray,suspension 2 spray intranasal DAILY PRN (Reason: allergy symptoms) Rx Instructions: into each nostril Breztri Aerosphere 160-9-4.8 mcg/actuation HFA aerosol inhaler 2 inh inhalation BID Qty: 10.7 6RF acetaminophen 500 mg capsule 500 mg PO Q6H PRN (Reason: pain) lidocaine-prilocaine 2.5-2.5 % cream 1 applic topical ONCE PRN (Reason: port access) 30 Days Qty: 30 2RF dexamethasone 4 mg tablet 4 mg PO QDAY Qty: 14 0RF oxycodone 5 mg capsule 5 mg PO TID PRN (Reason: pain) 14 Days Qty: 80 0RF Rx Instructions: take two tabs PO tid atorvastatin 40 MG tablet 40 mg PO QHS acetaminophen-codeine 300-30 mg tablet 1 - 2 tab PO Q6H PRN PRN (Reason: pain) albuterol sulfate 90 mcg/actuation HFA aerosol inhaler 2 puff inhalation Q4H PRN (Reason: shortness of breath or wheezing) Qty: 1 6RF Rx Instructions: administer with spacer MAGIC MOUTH WASH (BMX) 180 mL suspension 15 ml PO .qid PRN (Reason: pain) Qty: 180 5RF Rx Instructions: diphenhydramine 12.5 mg/5 mL oral liquid 60 mL; aluminum-mag hydroxide-simethicone 400 mg-400 mg-40 mg/5 mL oral susp 60 mL; Lidocaine Viscous 2 % mucosal solution 60 mL; Per 180 mL Discontinued valsartan 320 mg tablet 320 mg PO QHS hydrochlorothiazide 12.5 mg tablet 12.5 mg PO QHS Zyrtec 10 mg capsule 10 mg PO DAILY PRN (Reason: allergy symptoms) cholecalciferol (vitamin D3) 1,000 UNIT tablet 1,000 unit PO DAILY ibuprofen 600 mg tablet 600 mg PO Q6H PRN PRN (Reason: pain) Referrals / Follow Up: Franco Pérez MD [Med Staff - Active Staff] - 11/10/24 12:45 pm Cipriano Layne DO [Med Staff - Active Staff] - 10/01/24 1:00 pm Bulmaro Curtis Chi, MD [Primary Care Provider] - Within 2 Weeks Disposition Disposition (needs filled in before D/C Order can be placed): Home, Self Care Charges/Coding Visit Charges Inpatient E&M: 92185 Disch Hosp >30min
[2024-09-28 12:57] VITALS: PULSE 66; RESP 18
--- NOTE | 2024-09-28 13:35 | CASEMGMT ---
Patient has order for discharge. CHANDLER FRANKLIN in to discuss needs at discharge. Patient states he already has tube feeds at home and does not need script that was sent to [facility]. Patient states he would like walker at discharge and prefers [facility]. Patient denies need for HHC or therapy at discharge. Patient states he will need transportation home and would like to use [facility] Van, patient states he has money for taxi if van is not available. CHANDLER FRANKLIN updated PCU community nurse regarding transport. CHANDLER FRANKLIN received script for walker and sent to [facility] via [facility] with arrangements for walker to be delivered to patient's room. CHANDLER FRANKLIN called [facility] and cancelled Jevity prescription.
== END 2024-09-28 15:30 | disposition home or self-care (01) | DRG 175 ==
LOC: ED 21:54 → ICU 23:23 → PCU 09-26 14:07
PROVIDERS: Internal Medicine; Physician Assistant; Admitting Provider Internal Medicine; Emergency Provider Emergency Medicine; PCP Family Medicine Geriatric Medicine; Referring Provider Internal Medicine
DX: I26.99 Other pulmonary embolism without acute cor pulmonale (principal); E43 Unspecified severe protein-calorie malnutrition; I82.413 Acute embolism and thrombosis of femoral vein, bilateral; I82.433 Acute embolism and thrombosis of popliteal vein, bilateral; I82.443 Acute embolism and thrombosis of tibial vein, bilateral; I82.453 Acute embolism and thrombosis of peroneal vein, bilateral; L03.221 Cellulitis of neck; E86.0 Dehydration; J44.9 Chronic obstructive pulmonary disease, unspecified; I10 Essential (primary) hypertension; F32.A Depression, unspecified; E66.811 Obesity, class 1; I48.91 Unspecified atrial fibrillation; Z93.1 Gastrostomy status; E78.00 Pure hypercholesterolemia, unspecified; I95.1 Orthostatic hypotension; S51.012A Laceration without foreign body of left elbow, initial encounter; G47.33 Obstructive sleep apnea (adult) (pediatric); F41.9 Anxiety disorder, unspecified; J30.2 Other seasonal allergic rhinitis; M19.90 Unspecified osteoarthritis, unspecified site; S20.212A Contusion of left front wall of thorax, initial encounter; L59.8 Other specified disorders of the skin and subcutaneous tissue related to radiation; W18.12XA Fall from or off toilet with subsequent striking against object, initial encounter; E80.7 Disorder of bilirubin metabolism, unspecified; Y92.002 Bathroom of unspecified non-institutional (private) residence as the place of occurrence of the external cause; I49.3 Ventricular premature depolarization; T40.2X5A Adverse effect of other opioids, initial encounter; Z91.148 Patient's other noncompliance with medication regimen for other reason; T45.516A Underdosing of anticoagulants, initial encounter; R82.90 Unspecified abnormal findings in urine; Z68.32 Body mass index [BMI] 32.0-32.9, adult; Z79.899 Other long term (current) drug therapy; Z86.711 Personal history of pulmonary embolism; Z87.891 Personal history of nicotine dependence; Z85.810 Personal history of malignant neoplasm of tongue; Z92.21 Personal history of antineoplastic chemotherapy; Z92.3 Personal history of irradiation
CPT/HCPCS: 36569; 36600; 70450; 71045; 71101; 71275; 72125; 74177; 80048; 80053; 80061; 80202; 81001; 82533; 82550; 82803; 83605; 83735; 84100; 85025; 85610; 85730; 87040; 87077; 87086; 87088; 87186; 92526; 92610; 93005; 93306; 93970; 94640; 94660; 94762; 97802; 97803; 99285; Q9967; A4216

== ENCOUNTER → 2024-11-16 | Outpatient (CLI) | payer MEDICARE, OTHER, SELFPAY ==
--- NOTE | 2024-11-16 08:37 | SP.MBSS_ITS ---
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 Medical History: PMH: Wears glasses, Edentulous, Injury of head and neck, History of hiatal hernia, CPAP dependence, Shortness of breath on exertion, Former smoker, COPD, Tongue cancer, Hyperglycemia, HTN, Hypoxia, Saddle pulmonary embolus. Surgical Hx significant for Hx of EGD, tonsillectomy, and parotidectomy. See EMR for full PMH. Patient reported having L parotidectomy due to swelling and improper functioning of L parotid gland July 2013. He had his teeth extracted before chemoradiation treatment. He also had mandibular joaquim removed. 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 From 07/06/2024 ? 08/20/2024 he completed definitive chemoradiation.? Pt was briefly hospitalized from 09/25/2024-09/28/2024 for fall, sepsis, abnormal urinalysis, and BL PE amongst other comorbidities. Dysphagia Hx: BSE completed 07/13/2024 revealing mild oral dysphagia and recommending soft and bite size textures / thin liquids. PEG tube placed prior to treatment. MBSS 07/14/2024 revealed mild oropharyngeal dysphagia and recommended soft and bite size textures / thin liquids w/ compensatory strategies to improve safety of swallow. During and following treatment, the patient suffered great weight loss and malnutrition from inadequate oral and/or PEG intake. ST and the hose builder have followed closely. Weight 11/13/2024 was 224.0lbs (Pre-treatment weight: 307.4lbs, down ~83lbs). He has been recommended to go to the ER on several occasions since treatment ended due to radiation oncologist's concerns for failure to thrive, but pt has declined. He is currently consuming Easy to chew solids w/ minced and moist meats and thin liquids (~1 serving by mouth/day) and 1-3 liquid protein supplements per day. 4 [employer] per day via PEG (hose builder recommends 5/day). Moderate odynophagia, severe hypogeusia, severe xerostomia. Current Diet Ordered: Regular textures / Thin liquids Dentition: Edentulous Mental Status: WNL Respiratory Status: Oxygenating on Room Air Penetration-Aspiration Scale Penetration-Aspiration Scale: OBJECTIVE ASSESSMENT OF SWALLOW FUNCTION (QUANTITATIVE ? PER TRIAL): PENETRATION / ASPIRATION SCALE ([place]): 1 = does not enter airway 2 = enters airway/above vocal folds/ejected 3 = enters airway/above vocal folds/not ejected 4 = enters airway/contacts vocal folds/ejected 5 = enters airway/contacts vocal folds/not ejected 6 = enters airway/below vocal folds/ejected 7 = enters airway/below vocal folds/not ejected despite effort 8 = enters airway/below vocal folds/no effort VIDEOFLOROSCOPIC SCALE SCORE ([place]): Grade I = aspiration of material that has penetrated into the laryngeal vestibule, intact cough reflex Grade II = aspiration < 10 % of the bolus, intact cough reflex Grade III = aspiration of < 10 % of the bolus, reduced cough reflex or aspiration of > 10 % of the bolus, intact cough reflex Grade IV = aspiration of > 10 % of the bolus, reduced cough reflex Penetration-Aspiration Scale Score Thin Liquid via teaspoon: Result: 2= enter airway/above vocal folds/ejected Thin Liquid via teaspoon Trial 2: Result: 3= enters airways/above vocal folds/not ejected Thin Liquid via large single sip: cup: Result: 2= enter airway/above vocal folds/ejected [place] Thick Liquid via large single sip: cup: Result: 1= does not enter airway Thin Liquid via sequential sips: cup: Result: 3= enters airways/above vocal folds/not ejected Pudding via teaspoon: Result: 1= does not enter airway Comment: Esophageal screen - Mild retention in the lower esophagus w/ min retrograde flow. /4 Cookie w/ Barium Pudding coating: Result: 1= does not enter airway Comment: PAS score applies to barium pudding coating, not cookie. Cookie was expectorated due to inability to masticate. Thin Liquid via single sip: straw: Result: 1= does not enter airway Comment: Esophageal screen - Mild retention in the lower esophagus w/ retrograde flow to the middle. Oral Phase Labial Seal: Interlabial escape, no progression to anterior lip Tongue Control During Bolus Hold: Posterior escape of greater than half of bolus Bolus Preparation/Mastication: Minimal chewing/mashing with majority of bolus unchewed Bolus Transport/Lingual Motion: Repetitive/disorganized tongue motion Oral Residue: Majority of bolus remaining (piecemeal deglutition of pudding) Pharyngeal Phase Initiation of Pharyngeal Swallow: Bolus head at posterior laryngeal surgace of epiglottis Soft Palate Elevation: Trace column of contrast/air between soft palate and pharyngeal wall Laryngeal Elevation: Partial superior movement thyroid cart/partial apprx aryt- epig petiole Anterior Hyoid Excursion: Partial anterior movement Epiglottic Movement: Complete inversion Laryngeal Vestibule Closure at Height of Swallow: Incomplete; narrow column of air/contrast in laryngeal vestibule Pharyngeal Stripping Wave: Present - diminished Pharyngoesophageal Segment Opening: Complete distension and complete duration; no obstruction of flow Tongue Base Retraction: Wide column of contrast between tongue base & post. pharyngeal wall Pharyngeal Residue: Collection of residue within or on pharyngeal structures Esophageal Phase Esophageal Clearance: Esophageal retention w/ retrograde flow below pharyngoesophageal seg. Diagnosis/Impression Diagnosis: Mild-moderate oropharyngeal dysphagia R13.12 MBS Impressions: The oral phase is marked by... -Decreased bolus control w/ posterior loss of >1/2 of liquids to the posterior surface of the epiglottis prior to swallow onset, most notable w/ sequential sips of thin liquids. -Lingual pumping for A-P transport. -Mild oral residue, which pt cleared w/ independent use of a second swallow as needed. -Trialed cookie as the patient is consuming some soft solids. Pt unable to masticate cookie, so pt expectorated it. The pharyngeal phase is marked by... -Delayed swallow onset. -Decreased TB retraction and pharyngeal stripping wave resulting in mild- moderate pharyngeal residues, which cleared w/ independent use of a second swallow as needed. -Laryngeal penetration of thin liquids, which did not fully eject after the swallow 2X, placing him at increased risk for post prandial aspiration. No aspiration observed. The esophageal phase is marked by... -Mild retention of pudding in the lower esophagus w/ min retrograde flow. -Mild retention of liquids in lower esophagus w/ retrograde flow to the middle esophagus. Recommendations Diet: Easy to Chew Textures (Minced and Moist meats) and Thin Liquids Compensatory Strategies: Small Bites, Small Sips, Slow Rate, Multiple Swallows, Sitting upright and Remain sitting upright for 30 minutes after PO intake Recommend Repeat Modified Barium Swallow: Yes (3-6 months to re-assess swallow function due to concern for worsening dysphagia and aspiration risk s/p chemoradiation treatment of BOT cancer and d/t concern for disuse atrophy given extended time w/ limited intake of solids.) Need for Skilled Speech Therapy Services: Yes Comment: Continue per OP ST POC. Will recommend re-implementing oropharyngeal strengthening exercises. Please resume Christie and Effortful swallow. Pt verbalized wanting to become strongerin general. EDGE BANDING OFF BEARER strongly encouraged pt to increase po intake and take prescribed PEG supplements to gain weight to promote increasing strength. EDGE BANDING OFF BEARER educated that resuming a full oral diet will help promote improved strength of swallowing mechanism. Continue to follow for dysphagia therapy 1X/week. No immediate GI consult warranted; however, if concerns for increased s/s of reflux, esophageal retention, or regurgitation, please discuss GI concerns w/ PCP. Education Completed: 1. Described result of evaluation., 2. Pt understands evaluation & agrees with goals and treatment plan. and 7. Pt requires further education on strategies & risks. Status Active ST Patient: Active Contact Information [facility] Speech Therapy:: Rosalia Pollard M.A. [facility] Speech-Language Pathologist [facility] [address] [place] [address] [email or web address] [phone]
== END | disposition home or self-care (01) ==
PROVIDERS: PCP Family Medicine Geriatric Medicine; Referring Provider Student in an Organized Health Care Education/Training Program; Visit Provider Student in an Organized Health Care Education/Training Program
DX: C01 Malignant neoplasm of base of tongue (principal)
CPT/HCPCS: 74230; 92611

== ENCOUNTER 2024-11-26 10:40 | Day surgery (SDC) | payer MEDICARE, OTHER, SELFPAY ==
--- NOTE | 2024-11-25 14:40 | PAT.ANESEVAL ---
Pre-Assessment Diagnosis/Proposed Procedure Planned Operative Procedure(s): colonoscopy Anesthesia History Anesthesia History - technology administrator: Anesthesia History - technology administrator Hx Hospitalization Yes: 09/25/2024, [facility] 11/25/24 13:32 Any Problems With Anesthesia No 11/25/24 13:32 Cholinesterase deficiency No 11/25/24 13:32 You/Your Family Experience No 11/25/24 13:32 fever (hyperthermia) with Relationship Recent Exposure to Contagious No 10/15/24 12:27 Disease Does patient have nerve No 11/25/24 13:32 stimulator Patient instructed to have device shut off --Does patient have Pacemaker or ICD? When Was Last Pacemaker Check QUESTION #4 FULL TEXT: You/Your Family Experience fever (hyperthermia) with Anesthesia Last Oral Intake Last Oral intake: Last Oral Intake NPO since Meds taken in AM with sips of water? Meds patient instructed to take am of surgery PONV PONV - technology administrator: PONV - technology administrator Female No 11/25/24 13:32 HX of Motion Sickness No 11/25/24 13:32 HX of N/V After Surgery No 11/25/24 13:32 Non-Smoker Yes 11/25/24 13:32 Duration of Surgery greater No 11/25/24 13:32 than 60 minutes Number of Risk Factors 1 11/25/24 13:32 PONV Score Low Risk 11/25/24 13:32 Height & Weight Height & Weight: Anesthesia: Height & Weight Height 6 ft 11/25/24 11:25 Respiratory Assessment Respiratory Assessment - technology administrator: Respiratory Tract Infection Hx - technology administrator Hx Respiratory Tract Infection No 11/25/24 13:32 STOP Sleep Apnea STOP Sleep Apnea - technology administrator: STOP Sleep Apnea - technology administrator Hx Hypertension Yes: DOES NOT TAKE MEDS 11/25/24 13:32 Hx Sleep Apnea Yes 11/25/24 13:32 CPAP Yes 11/25/24 13:32 BIPAP No 11/25/24 13:32 Do you snore loudly (louder than talking or can be heard Do you often feel tired/ fatigued/ sleepy during daytime? Has anyone observed you stop breathing during sleep? STOP Results Positive 11/25/24 13:32 QUESTION #5 FULL TEXT : Do you snore loudly (louder than talking or can be heard through closed doors)? 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 Specify any problems Hx of Preganancy in last 3 N/A 11/25/24 13:32 Months Nurse Filling Out Transfusion [email or web address] 11/25/24 13:32 & Questions: Date: 11/25/24 11/25/24 13:32 Time: 13:34 11/25/24 13:32 Patient unable to answer at this time (ie. confused, unrespo /Reproduction History /Reproductive History - technology administrator: /Reproductive Hx- technology administrator Hx Now Gestational Age (in weeks): EDC: Hx Hx Para Hx Section SAB No 10/15/24 12:27 PFSH Medical History (Updated 11/25/24 @ 13:39 by Raj Diaz) Cancer History of Clostridium difficile infection Depression Pulmonary embolism Back pain Malfunction of gastrostomy tube Weight loss Obesity (BMI 30.0-34.9) Radiation-induced dermatitis Encounter for education Wears glasses Edentulous High cholesterol Injury of head and neck History of hiatal hernia CPAP (continuous positive airway pressure) dependence Shortness of breath on exertion Former smoker History of edema History of echocardiogram Primary squamous cell carcinoma of base of tongue COPD (chronic obstructive pulmonary disease) Tongue cancer Hyperglycemia Essential hypertension Hypoxia Saddle pulmonary embolus Home Medications ?Medication ?Instructions ?Recorded ?Last Taken ?Type atorvastatin 40 mg tablet 40 mg PO QHS 05/04/19 05/03/19 History rivaroxaban 15 mg tablet 20 mg PO QHS 11/30/21 07/05/24 History citalopram 20 mg tablet (Celexa) 20 mg PO QHS 05/08/22 Unknown History budesonide 160 mcg-glycopyr 9 2 inh inhalation BID #10.7 grams 07/31/23 Unknown Rx mcg-formot 4.8 mcg/actuation HFA inhaler (Breztri Aerosphere) acetaminophen 500 mg capsule 500 mg PO Q6H PRN pain 05/20/24 07/01/24 History lidocaine-prilocaine 2.5 %-2.5 % 1 applic topical ONCE PRN port 06/29/24 Unknown Rx topical cream access 30 days #30 grams albuterol sulfate 90 mcg/actuation 2 puff inhalation Q4H PRN 07/07/24 Unknown Rx aerosol inhaler shortness of breath or wheezing #1 ea mirtazapine 7.5 mg tablet 7.5 mg PO QHS 11/18/24 Unknown History vancomycin 125 mg capsule mg PO Q6H 11/25/24 Unknown History Allergy/AdvReac Type Severity Reaction Status Date / Time Sulfa (Sulfonamide Allergy Rash Verified 11/25/24 13:30 Antibiotics) Family History Father Heart disease Mother Heart disease Lung disease Grandmother Cancer Grandfather Cancer Other Diabetes Surgical History History of vascular access device History of surgery History of esophagogastroduodenoscopy (EGD) History of colonoscopy History of appendectomy History of tonsillectomy Cataracts, both eyes H/O parotidectomy Social History Smoking Status: Former smoker how long ago did patient quit smokin second hand exposure: Yes Audit: Pertinent Findings Pertinent Findings Echo (EF%) pertinent findings: The estimated ejection fraction is 55???60 %. Normal LV systolic function Mildly dilated RV with mild RV systolic dysfunction No previous echo to compare. 09/2024 Recommendation Anesthesia Recommendation Anesthesia recommendation: F/U recommended (Patient should have EKG performed. Can be done on day of procedure. )
--- NOTE | 2024-11-25 15:23 | NURSING ---
PER ANESTHESIA, EKG BEFORE SURGERY, OK FOR DOS
[2024-11-26] VITALS (8 sets, daily range): BP systolic 92–125; BP diastolic 55–72; PULSE 65–72; RESP 16–20; TEMP 36.1–36.6; O2SAT 96–100; BMI 29.9
[2024-11-26] MEDS: Lactated Ringers 1,000 ML 15 ML IV (11:38)
--- NOTE | 2024-11-26 11:46 | PRE.ANES_ITS ---
ASA Classification* ASA Classification ASA Classification: 3 Assessment & Plan Anesthesia* Anesthesia Assessment Anesthesia Assessment: Discussed sedation and/or anesthesia options, risks, benefits, and alternatives with patient/parents/legal guardian/POA. Questions invited. The patient/parents/legal guardian/POA seems to understand and agrees to proceed with anesthesia plan. Reviewed the physical assessment, medical history, allergy history and patient home medications list prior to surgery/procedure/anesthetic and documented any changes. Performed airway and anesthesia risk assessments. Anesthesia Type Anesthesia Type: MAC History Source History Obtained from:: Patient and Chart Anesthesia Focused Assessment* Temperature: 97.8 F Pulse Rate: 70 Blood Pressure: 112/68 Respiratory Rate: 16 Pulse Ox: 96 Oxygen Delivery Method: Room Air Airway Assessment Mouth opens: >3 cm Mallampati Score: III Teeth Condition: Missing (Patient is edentulous.) Neck Range of motion (ROM): Limited ROM (Somewhat Decreased) Labs Anesthesia Preop lab: CBC WBC 9.8 K/mm3 (4.4-11.0) 11/18/24 12:59 11/18/24 RBC 3.89 M/mm3 (4.6-6.2) L 11/18/24 12:59 11/18/24 Hgb 12.9 g/dL (13.0-16.5) L 11/18/24 12:59 5 Hct 39.7 % (40-54) L 11/18/24 12:59 11/18/24 Plt Count 153 K/mm3 (150-450) 11/18/24 12:59 11/18/24 CHEMISTRY Potassium 5.0 mmol/L (3.3-5.1) 11/18/24 12:59 11/18/24 Sodium 139 mmol/L (133-145) 11/18/24 12:59 11/18/24 Magnesium 2.0 mg/dL (1.5-2.2) 09/27/24 04:07 09/27/24 Phosphorus 2.6 mg/dL (2.7-4.5) L 09/27/24 04:07 09/27/24 BUN 9 mg/dL (4-19) 11/18/24 12:59 11/18/24 Creatinine 0.92 mg/dL (0.70-1.20) 11/18/24 12:59 11/18/24 Glucose 128 mg/dL (70-99) H 11/18/24 12:59 11/18/24 TSH 1.560 uIU/mL (0.300-4.200) 11/18/24 12:59 08/10/16 COAG PT 20.3 SECONDS (11.7-14.9) H 09/25/24 20:31 07/0 07/17 Pre-Assessment Diagnosis/Proposed Procedure Planned Operative Procedure(s): EGD, PEG tube placement Anesthesia History 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 When Was Last Pacemaker Check QUESTION #4 FULL TEXT: You/Your Family Experience fever (hyperthermia) with Anesthesia Last Oral Intake Last Oral intake: Last Oral Intake NPO since 23:00 11/26/24 11:34 Meds taken in AM with sips of No 11/26/24 11:34 water? Meds patient instructed to take am of surgery Any additional information?: Yes Meds taken in AM with sips of water?: Yes PONV PONV - supervisor mainspring fabrication: PONV - supervisor mainspring fabrication Female No 11/25/24 13:32 HX of Motion Sickness No 11/25/24 13:32 HX of N/V After Surgery No 11/25/24 13:32 Non-Smoker Yes 11/25/24 13:32 Duration of Surgery greater No 11/25/24 13:32 than 60 minutes Number of Risk Factors 1 11/25/24 13:32 PONV Score Low Risk 11/25/24 13:32 Height & Weight Height & Weight: Anesthesia: Height & Weight Height 6 ft 11/26/24 11:34 Weight: 100 kg 11/26/24 11:34 Body Mass Index (BMI) 29.9 11/26/24 11:34 Respiratory Assessment Respiratory Assessment - supervisor mainspring fabrication: Respiratory Tract Infection Hx - supervisor mainspring fabrication Hx Respiratory Tract Infection No 11/25/24 13:32 STOP Sleep Apnea STOP Sleep Apnea - supervisor mainspring fabrication: STOP Sleep Apnea - supervisor mainspring fabrication Hx Hypertension Yes: DOES NOT TAKE MEDS 11/25/24 13:32 Hx Sleep Apnea Yes 11/25/24 13:32 CPAP Yes 11/25/24 13:32 BIPAP No 11/25/24 13:32 Do you snore loudly (louder than talking or can be heard Do you often feel tired/ fatigued/ sleepy during daytime? Has anyone observed you stop breathing during sleep? STOP Results Positive 11/25/24 13:32 QUESTION #5 FULL TEXT : Do you snore loudly (louder than talking or can be heard through closed doors)? 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 Specify any problems Hx of Preganancy in last 3 N/A 11/25/24 13:32 Months Nurse Filling Out Transfusion [email or web address] 11/25/24 13:32 & Questions: Date: 11/25/24 11/25/24 13:32 Time: 13:34 11/25/24 13:32 Patient unable to answer at this time (ie. confused, unrespo /Reproduction History /Reproductive History - supervisor mainspring fabrication: /Reproductive Hx- supervisor mainspring fabrication Hx Now Gestational Age (in weeks): EDC: Hx Hx Para Hx Section SAB No 10/15/24 12:27 Active Medications Active Medications: Current Medications Generic Name Dose Route Start Last Admin Trade Name Anh PRN Reason Stop Dose Admin Lactated Ringer's 1,000 mls @ 15 mls/hr 11/26/24 11:00 11/26/24 11:38 IV 15 mls/hr .Q48H WILMAN Administration PFSH Medical History Cancer History of Clostridium difficile infection Depression Pulmonary embolism Back pain Malfunction of gastrostomy tube Weight loss Obesity (BMI 30.0-34.9) Radiation-induced dermatitis Encounter for education Wears glasses Edentulous High cholesterol Injury of head and neck History of hiatal hernia CPAP (continuous positive airway pressure) dependence Shortness of breath on exertion Former smoker History of edema History of echocardiogram Primary squamous cell carcinoma of base of tongue COPD (chronic obstructive pulmonary disease) Tongue cancer Hyperglycemia Essential hypertension Hypoxia Saddle pulmonary embolus Home Medications ?Medication ?Instructions ?Recorded ?Last Taken ?Type atorvastatin 40 mg tablet 40 mg PO QHS 05/04/19 History rivaroxaban 15 mg tablet 20 mg PO QHS 11/30/21 History citalopram 20 mg tablet (Celexa) 20 mg PO QHS 05/08/22 Unknown History budesonide 160 mcg-glycopyr 9 2 inh inhalation BID #10 .7 grams 07/31/23 11/26/24 Rx mcg-formot 4.8 mcg/actuation HFA inhaler (Breztri Aerosphere) acetaminophen 500 mg capsule 500 mg PO Q6H PRN pain 07/01/24 History lidocaine-prilocaine 2.5 %-2.5 % 1 applic topical ONCE PRN port 06/29/24 Unknown Rx topical cream access 30 days #30 grams albuterol sulfate 90 mcg/actuation 2 puff inhalation Q 4H PRN 07/07/24 11/26/24 Rx aerosol inhaler shortness of breath or wheez ing #1 ea mirtazapine 7.5 mg tablet 7.5 mg PO QHS 11/18/24 Unkno wn History vancomycin 125 mg capsule mg PO Q6H 11/25/24 Unknown H istory Allergy/AdvReac Type Severity Reaction Status Date / Time Sulfa (Sulfonamide Allergy Rash Verified 11/26/24 11:33 Antibiotics) Family History Father Heart disease Mother Heart disease Lung disease Grandmother Cancer Grandfather Cancer Other Diabetes Surgical History History of vascular access device History of surgery History of esophagogastroduodenoscopy (EGD) History of colonoscopy History of appendectomy History of tonsillectomy Cataracts, both eyes H/O parotidectomy Social History Smoking Status: Former smoker how long ago did patient quit smokin second hand exposure: Yes Review of Systems (Anesthesia) ROS Narrative System reviewed and no additional complaints, except as documented.
--- NOTE | 2024-11-26 12:02 | EKG12_ITS ---
Test Reason : P Blood Pressure : */* mmHG Vent. Rate : 86 BPM Atrial Rate : 86 BPM P-R Int : 214 ms QRS Dur : 94 ms QT Int : 440 ms P-R-T Axes : 96 59 34 degrees QTcB Int : 526 ms Sinus rhythm with 1st degree A-V block Nonspecific ST abnormality Prolonged QT Abnormal ECG When compared with ECG of 25-Sep-2024 21:18, Sinus rhythm has replaced Atrial fibrillation T wave inversion now evident in Inferior leads Confirmed by JANICE ALVARENGA, CAMILLE ([id number]), assignment desk editor PHILIP FLETCHER ([id number]) on 11/30/2024 8:56:35 AM Referred By: Daniel Sánchez Confirmed By: CAMILLE CAMACHO MD
--- NOTE | 2024-11-26 12:31 | PCM.HP.STD ---
HPI - General General Date of Admission: 11/26/24 Date of Service: 11/26/24 Chief Complaint: PEG tube dysfunction HPI Narrative ROBERT RON, is a 74 M who presents to have a new PEG tube placed. He was seen in my office yesterday stating that the PEG was not working. It was quickly noted that the PEG tube was only in about a centimeter suggesting that this more than likely was in the subcutaneous tissues. It is likely was accidentally displaced. I attempted to remove the PEG tube and replace it with a new one however the tract had already closed up and so it was recommended that a fresh PEG be placed. [facility] Medical History Cancer History of Clostridium difficile infection Depression Pulmonary embolism Back pain Malfunction of gastrostomy tube Weight loss Obesity (BMI 30.0-34.9) Radiation-induced dermatitis Encounter for education Wears glasses Edentulous High cholesterol Injury of head and neck History of hiatal hernia CPAP (continuous positive airway pressure) dependence Shortness of breath on exertion Former smoker History of edema History of echocardiogram Primary squamous cell carcinoma of base of tongue COPD (chronic obstructive pulmonary disease) Tongue cancer Hyperglycemia Essential hypertension Hypoxia Saddle pulmonary embolus Home Medications ?Medication ?Instructions ?Recorded ?Last Taken ?Type atorvastatin 40 mg tablet 40 mg PO QHS 05/04/19 05/03/19 History rivaroxaban 15 mg tablet 20 mg PO QHS 11/30/21 11/24/24 History citalopram 20 mg tablet (Celexa) 20 mg PO QHS 05/08/22 Unknown History budesonide 160 mcg-glycopyr 9 2 inh inhalation BID #10.7 grams 07/31/23 11/26/24 Rx mcg-formot 4.8 mcg/actuation HFA inhaler (Breztri Aerosphere) acetaminophen 500 mg capsule 500 mg PO Q6H PRN pain 05/20/24 07/01/24 History lidocaine-prilocaine 2.5 %-2.5 % 1 applic topical ONCE PRN port 06/29/24 Unknown Rx topical cream access 30 days #30 grams albuterol sulfate 90 mcg/actuation 2 puff inhalation Q4H PRN 07/07/24 11/26/24 Rx aerosol inhaler shortness of breath or wheezing #1 ea mirtazapine 7.5 mg tablet 7.5 mg PO QHS 11/18/24 Unknown History vancomycin 125 mg capsule mg PO Q6H 11/25/24 Unknown History Allergy/AdvReac Type Severity Reaction Status Date / Time Sulfa (Sulfonamide Allergy Rash Verified 11/26/24 11:33 Antibiotics) Family History Father Heart disease Mother Heart disease Lung disease Grandmother Cancer Grandfather Cancer Other Diabetes Surgical History History of vascular access device History of surgery History of esophagogastroduodenoscopy (EGD) History of colonoscopy History of appendectomy History of tonsillectomy Cataracts, both eyes H/O parotidectomy Social History Smoking Status: Former smoker how long ago did patient quit smokin second hand exposure: Yes Vital Signs Vital Signs Vital Signs: 11/26/24 11:34 11/26/24 11:34 11/26/24 11:58 Temperature 97.8 F 97.8 F Temperature Source Temporal Pulse Rate 70 70 Respiratory Rate 16 16 Respiratory Pattern Normal Blood Pressure 112/68 112/68 Blood Pressure Mean 82 Blood Pressure Source Monitor Blood Pressure Position Sitting Blood Pressure Location Right Arm Pulse Ox 96 96 Oxygen Delivery Method Room Air Room Air Weight Weight: 220 lb 7.396 oz Body Mass Index (BMI) 29.9 Physical Exam Const alert, oriented x3 and no apparent distress Assessment & Plan Assessment/Plan (1) Dysphagia: PLAN: Plan The patient is a 74-year-old male in need of a new PEG tube placement. We discussed the details of the planned procedure and he wishes to proceed. This will begin momentarily
[2024-11-26] MEDS: Lactated Ringers 1,000 ML 1000 ML IV (12:44)
--- NOTE | 2024-11-26 13:11 | PCM.POST.ANE ---
Anesthesia: Postop Eval I Current Vital Signs Temperature: 97.4 F Pulse Rate: 69 Blood Pressure: 98/55 Respiratory Rate: 20 Pulse Ox: 100 Oxygen Delivery Method: Room Air Assessment Airway patent: Yes Spontaneous unlabored respirations: Yes Mental status: Awake and Calm nausea: No Vomiting: No Anesthesia Complication: No Fluid Hydration Crystalloid volume administer (ml): 100 Total IV fluid infused: 100 Progress Note Anesthesia document: Postop Eval 1 completed: Yes
--- NOTE | 2024-11-26 13:25 | OP.PROVAT_ITS ---
11/26/2024 Bulmaro Curtis MD [address] [place] [address] Re : Upper GI endoscopy procedure for Eber Bee Dear Dr. Curtis This procedure was performed on November. My impressions and recommendations are as follows: Impressions : - No gross lesions in the entire stomach. - No gross lesions in the entire esophagus. - An externally removable PEG placement was successfully completed. - No specimens collected. Recommendations : - Discharge patient to home (ambulatory). - Resume previous diet. - Discharge patient to home (ambulatory). - Resume previous diet. - Please follow the post-PEG recommendations including: start using PEG today. - Continue present medications. My findings are described in the full procedure note, which is enclosed. If I can be of further assistance, please feel free to contact me at . Sincerely, Daniel Sánchez MD 11/26/2024 1:25:07 PM This report has been signed electronically.
--- NOTE | 2024-11-26 13:25 | OP.EGD_ITS ---
Patient Name: Eber Bee Procedure Date: 11/26/2024 12:28 PM Date of : 1950 Age: 74 Procedure: Upper GI endoscopy Indications: Replace PEG tube due to malfunctioning gastrostomy tube Providers: Daniel Sánchez MD Medicines: Monitored Anesthesia Care Patient Profile: Refer to note in patient chart for documentation of history and physical. Patient has symptoms of acute dysphagia. Refer to note in patient chart for documentation of history and physical. Complications: No immediate complications. Estimated blood loss: Minimal. Procedure: Pre-Anesthesia Assessment: - Prior to the procedure, a History and Physical was performed, and patient medications and allergies were reviewed. The patient's tolerance of previous anesthesia was also reviewed. The risks and benefits of the procedure and the sedation options and risks were discussed with the patient. All questions were answered, and informed consent was obtained. Prior Anticoagulants: The patient has taken Xarelto (rivaroxaban), last dose was day of procedure. ASA Grade Assessment: III - A patient with severe systemic disease. After reviewing the risks and benefits, the patient was deemed in satisfactory condition to undergo the procedure. After obtaining informed consent, the endoscope was passed under direct vision. Throughout the procedure, the patient's blood pressure, pulse, and oxygen saturations were monitored continuously. The Endoscope was introduced through the mouth, and advanced to the prepyloric region, stomach. The upper GI endoscopy was accomplished without difficulty. The patient tolerated the procedure well. Moderate Sedation: See the other procedure note for documentation of moderate sedation with intraservice time. Scope In: 12:46:51 PM Scope Out: 1:03:44 PM Total Procedure Duration Time 0 hours 16 minutes 53 seconds Findings: No gross lesions were noted in the entire examined stomach. The patient was placed in the supine position for PEG placement. The stomach was insufflated to appose gastric and abdominal mosquera. A site was located in the body of the stomach with good transillumination for placement. The abdominal wall was marked and prepped in a sterile manner. The area was anesthetized with 5 mL of 1% lidocaine. The trocar needle was introduced through the abdominal wall and into the stomach under direct endoscopic view. A snare was introduced through the endoscope and opened in the gastric lumen. The guide wire was passed through the trocar and into the open snare. The snare was closed around the guide wire. The endoscope and snare were removed, pulling the wire out through the mouth. A skin incision was made at the site of needle insertion. The externally removable 20 Fr Bard gastrostomy tube was lubricated. The G-tube was tied to the guide wire and pulled through the mouth and into the stomach. The trocar needle was removed, and the gastrostomy tube was pulled out from the stomach through the skin. The external bumper was attached to the gastrostomy tube, and the tube was cut to remove the guide wire. The final position of the gastrostomy tube was confirmed by relook endoscopy, and skin marking noted to be 3.5 cm at the external bumper. The final tension and compression of the abdominal wall by the PEG tube and external bumper were checked and revealed that the bumper was loose and not touching the skin. The feeding tube was capped, and the tube site cleaned and dressed. No gross lesions were noted in the entire esophagus. Impression: - No gross lesions in the entire stomach. - No gross lesions in the entire esophagus. - An externally removable PEG placement was successfully completed. - No specimens collected. Recommendation: - Discharge patient to home (ambulatory). - Resume previous diet. - Discharge patient to home (ambulatory). - Resume previous diet. - Please follow the post-PEG recommendations including: start using PEG today. - Continue present medications. Procedure Code(s): --- Professional --- 08040, 52, Esophagogastroduodenoscopy, flexible, transoral; with directed placement of percutaneous gastrostomy tube Diagnosis Code(s): --- Professional --- K94.23, Gastrostomy malfunction CPT copyright 2021 [employer]. All rights reserved. The codes documented in this report are preliminary and upon prime broker review may be revised to meet current compliance requirements. Daniel Sánchez MD 11/26/2024 1:25:07 PM This report has been signed electronically. Number of Addenda: 0 Note Initiated On: 11/26/2024 12:28 PM
--- NOTE | 2024-11-26 13:37 | EX.PCM.DISCH ---
Discharge Instructions Diet Discharge Diet: - (resume previous diet / tube feeds) Activity Discharge Activity: Return to Normal Activity May shower in (days): 1 Ice area for (Minutes): 30 Lifting Restrictions: none Dressing / Incision Call your doctor if your incision/area has: Continuous Slow Oozing, Sudden Increased Bleeding, Increased Pain/ Swelling, Increased Redness, Foul Smelling Discharge and Swelling at the incision site Call your doctor if you observe: Fever of 101 or Higher Cleanse incision/area with: Soap & Water Follow Up Care Please Follow Up With: Daniel Sánchez MD When: as needed Test Results: Test results from this visit will be discussed in further detail at your follow-up appointment, if applicable. Discharge Plan Admission Primary Reason for Your Visit: PEG tube Attending Provider: Daniel Sánchez Primary Care Provider: Bulmaro Curtis Chi Instructions Print Language: Japanese Discharge Orders/Prescriptions Prescriptions: New oxycodone 5 mg capsule 5 mg PO Q8H PRN (Reason: pain) 3 Days Qty: 5 0RF Continued rivaroxaban 15 mg tablet 20 mg PO QHS Rx Instructions: must administer with evening meal citalopram [Celexa] 20 mg tablet 20 mg PO QHS Breztri Aerosphere 160-9-4.8 mcg/actuation HFA aerosol inhaler 2 inh inhalation BID Qty: 10.7 6RF acetaminophen 500 mg capsule 500 mg PO Q6H PRN (Reason: pain) lidocaine-prilocaine 2.5-2.5 % cream 1 applic topical ONCE PRN (Reason: port access) 30 Days Qty: 30 2RF mirtazapine 7.5 mg tablet 7.5 mg PO QHS atorvastatin 40 MG tablet 40 mg PO QHS vancomycin 125 mg capsule PO Q6H albuterol sulfate 90 mcg/actuation HFA aerosol inhaler 2 puff inhalation Q4H PRN (Reason: shortness of breath or wheezing) Qty: 1 6RF Rx Instructions: administer with spacer Referrals / Follow Up: Bulmaro Curtis Chi, MD [Primary Care Provider] - Disposition Disposition (needs filled in before D/C Order can be placed): Home, Self Care
--- NOTE | 2024-11-26 15:20 | POSTOPAN2_ITS ---
Anesthesia Postop Eval I Sum Postop Eval Completion status Anesthesia document: Postop Eval 1 completed: Yes Anesthesia Postop Eval I Summary Anesthesia Postop Eval I Summary: Anesthesia Postop Eval I: Assessment Summary Airway patent Yes 11/26/24 13:12 [email or web address] Spontaneous unlabored Yes 11/26/24 13:12 [email or web address] [email or web address] respirations Mental status Awake,Calm 11/26/24 13:12 [email or web address] nausea No 11/26/24 13:12 [email or web address] [email or web address] Vomiting No 11/26/24 13:12 [email or web address] [email or web address] Anesthesia Postop Eval I: Fluid Summary Crystalloid volume administer 100 11/26/24 13:12 [email or web address] (ml) Colloids volume administered ( ml) Blood Product volume administered (ml) Total IV fluid infused 100 11/26/24 13:12 [email or web address] Anesthesia Postop Eval I: Summary Notes Anesthesia Complication No 11/26/24 13:12 [email or web address] Anesthesia Complication Comment: Post-operative progress note Anesthesia: Postop Eval II Evaluation Mental status: Awake and Calm Pain Level: 0 nausea: No Vomiting: No Complications Anesthesia Complication: No
--- NOTE | 2024-11-26 15:20 | PCM.POSTANE2 ---
Anesthesia Postop Eval I Sum Postop Eval Completion status Anesthesia document: Postop Eval 1 completed: Yes Anesthesia Postop Eval I Summary Anesthesia Postop Eval I Summary: Anesthesia Postop Eval I: Assessment Summary Airway patent Yes 11/26/24 13:12 NO [email or web address] Spontaneous unlabored Yes 11/26/24 13:12 NO [email or web address] [email or web address] respirations Mental status Awake,Calm 11/26/24 13:12 NO [email or web address] [email or web address] nausea No 11/26/24 13:12 NO [email or web address] [email or web address] Vomiting No 11/26/24 13:12 NO [email or web address] [email or web address] Anesthesia Postop Eval I: Fluid Summary Crystalloid volume administer 100 11/26/24 13:12 NO [email or web address] (ml) Colloids volume administered ( ml) Blood Product volume administered (ml) Total IV fluid infused 100 11/26/24 13:12 NO [email or web address] Anesthesia Postop Eval I: Summary Notes Anesthesia Complication No 11/26/24 13:12 NO [email or web address] Anesthesia Complication Comment: Post-operative progress note Anesthesia: Postop Eval II Evaluation Mental status: Awake and Calm Pain Level: 0 nausea: No Vomiting: No Complications Anesthesia Complication: No
== END 2024-11-26 14:00 | disposition home or self-care (01) ==
LOC: EN 10:41 → AC 10:41
PROVIDERS: PCP Family Medicine Geriatric Medicine; Referring Provider Surgery; Visit Provider Surgery
PROC: 0DJ08ZZ Inspection of Upper Intestinal Tract, Via Natural or Artificial Opening Endoscopic (ICD-10-PCS; CPT 43235; principal; 2024-11-26 11:40)
DX: K94.23 Gastrostomy malfunction (principal); J44.9 Chronic obstructive pulmonary disease, unspecified; R13.10 Dysphagia, unspecified; I10 Essential (primary) hypertension; E78.00 Pure hypercholesterolemia, unspecified; Z79.01 Long term (current) use of anticoagulants; Z79.899 Other long term (current) drug therapy; Z87.891 Personal history of nicotine dependence; Z86.711 Personal history of pulmonary embolism
CPT/HCPCS: 43246; 93005; A4216

== ENCOUNTER 2025-01-07 09:57 | Outpatient (CLI) | payer MEDICARE, OTHER, SELFPAY ==
[2025-01-07 10:30] LABS: Hematocrit 36.8 % (40-54); Hemoglobin 11.9 g/dL (13.0-16.5); Immature Granulocytes Count 0.060 X10^3/uL (0.0-0.0); Mean Corp Hgb Conc 32.3 g/dL (32-36); Mean Corpuscular Volume 104.0 fL (80-94); Mean Platelet Vol. 10.8 fl (6.2-12.0); NRBC Flagged by Analyzer 0 % (0-5); POSITIVE DIFFERENTIAL YES; Platelet Count 132 K/mm3 (150-450); RBC Distribution Width CV 14.0 % (11.6-14.6); RBC Distribution Width SD 53.9 fl (35.1-43.9); Red Blood Count 3.54 M/mm3 (4.6-6.2); White Blood Count 6.4 K/mm3 (4.4-11.0)
[2025-01-07 11:11] LABS: AST(SGOT) 16 U/L (<=37); Alanine Aminotransfer ALT/SGPT 11 U/L (<=46); Albumin, Serum 3.7 g/dL (3.4-4.8); Alkaline Phosphatase 104 U/L (40-129); Anion Gap 9 (5-15); BUN 14 mg/dL (4-19); BUN/Creat Ratio 16.0 RATIO (10-20); Calcium,Total 9.4 mg/dL (7.6-11.0); Carbon Dioxide 28.0 mmol/L (21.0-32.0); Chloride 105 mmol/L (98-108); Globulin 2.6 g/dL (2.2-4.2); Glucose 116 mg/dL (70-99); Potassium 3.9 mmol/L (3.3-5.1); Vitamin D,25 Hydroxy 27.4 ng/mL (30-100)
[2025-01-07 11:31] LABS: Cholesterol 169 mg/dL (<=200); Low Density Lipoprotein Calc. 64 mg/dL; Triglycerides 223 mg/dL; Very Low Density Lipoprotein 45 mg/dL (5-40); cholesterol:hdl ratio screen 2.82
== END 2025-01-07 23:59 | disposition home or self-care (01) ==
LOC: MEDOUTP 09:57
PROVIDERS: PCP Family Medicine Geriatric Medicine; Referring Provider Family Medicine Geriatric Medicine; Visit Provider Family Medicine Geriatric Medicine
DX: E11.65 Type 2 diabetes mellitus with hyperglycemia (principal); I10 Essential (primary) hypertension; E55.9 Vitamin D deficiency, unspecified
CPT/HCPCS: 36591; 80053; 80061; 82306; 83036; 84443; 85025; A4216

== ENCOUNTER 2025-01-19 09:30 | Outpatient (RCR) | payer MEDICARE, OTHER, SELFPAY ==
[2024-07-02 14:00] VITALS: PULSE 56; RESP 20
--- NOTE | 2024-07-13 14:13 | HP.SP.EV_ITS ---
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 Other Relevant Medical History/Diagnoses/Surgery: PMH: Wears glasses, Edentulous, Injury of head and neck, History of hiatal hernia, CPAP dependence, Shortness of breath on exertion, Former smoker, COPD, Tongue cancer, Hyperglycemia, HTN, Hypoxia, Saddle pulmonary embolus. Surgical Hx significant for Hx of EGD, tonsillectomy, and parotidectomy. See EMR for full PMH. Patient reported having L parotidectomy due to swelling and improper functioning of L parotid gland July 2013. He had his teeth extracted before chemoradiation treatment. He also had mandibular joaquim removed. 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 Treatment began 07/06/2024. PEG tube in place. Smoking Status: Former smoker Pain Is pain an issue with your current prescribed condition?: Yes Personal Preferred language: Ukrainian Patient Allergies Allergies Allergies: Allergies Sulfa (Sulfonamide Antibiotics) Allergy (Verified 07/13/24 10:31) Rash Subjective Dysphagia Symptoms Reported Symptoms/Problems with: Pain on Swallowing and Xerostomia Current Diet Solids Current Diet: Soft Current Diet Liquids Current Liquids: Thin Comments Painful swallowing: -: Teeth pulled prior to treatment. Unable to obtain full jaw closure of gums for mastication, additionally jaw closure is painful. Pt is consuming foods that he can masticate w/ his tongue/roof of mouth. Moderate xerostomia managed by an oral rinse (Hx of L partotidectomy, 2014). Taste WNL. Objective Dysphagia Administered by Administered by: Self Thin Liquids Comments: Pt consumed sips of water via bottle and soda via can w/ timely swallow, no overt s/s of aspiration. Pureed Administered via: Spoon Patient Report: Tightness in R side of throat when he swallows, tilts head right to ease the tightness and soreness. Comments: The patient consumed bites w/ timely swallow, no overt s/s of aspiration, good oral clearance. Swallowing Impairment Contributing Factors to Swallowing Impairment: Mastication Inefficiency Impact Impact on Safety & Functioning: Risk for Aspiration and Risk for Inadequate Nutrition/Hydration Recommendations Modified Barium Swallow/Cookie Swallow Recommended: Yes Swallowing Treatment: Yes Diet Texture Recommendations Solids: Soft & Bite sized (Level 6, Chopped) Liquids: Thin (Level 0) Other: Small bites/sips, slow rate, alternate bites/sips, sit upright for po intake. 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 VII Facial Nerve VII Facial Nerve Result: Intact X Vagus Nerve X Vagus Nerve Result: Impaired Comment:: Slightly asymmetrical palatal elevation. Palatoglossal arches also appeared edematous. Pt reports increased hoarseness since dental extraction and start of cancer treatment. XII Hypoglossal Nerve XII Hypoglossal Nerve Result: Impaired Comment:: Slight deviation R, unilateral mild-moderate lingual weakness w/ L lateralization Swallowing Performance Scale Swallowing Performance Scale Swallowing Performance Scale Result: 3 Mild Reference: Neuro-QoL instrument Radiation Oncology Patient FOIS Functional Oral Intake Scale Total oral diet with multiple consistencies, but requiring special preparation or compensations: Level 5 Other Other EAT-10: -: Eating Assessment Tool (EAT-10) – Score = 6 Score of 3 or more indicates there may be a swallowing problem or dysphagia. For patients with head and neck cancer, researchers found a cut-off value of 19 to be helpful in detecting presence of post-swallow pharyngeal residue. Plan Plan Plan: Will recommend the patient for outpatient dysphagia therapy to address mild oral dysphagia secondary to SCC of base of tongue. Speech therapy POC to include further training and education re: oropharyngeal exercise program, diet texture recommendations, aspiration precautions, and compensatory strategies to facilitate. Additionally, will provide ongoing assessment of diet tolerance and education and management of the effects of chemoradiation treatment that contribute to dysphagia. Without skilled ST services, the patient is at increased risk for aspiration, weight loss, malnutrition, and chronic dysphagia. Recommendations Treatment Warranted: Yes Treatment Warranted: Dysphagia Comment: Recommend MBSS to objectively assess swallow function and aspiration risk. MBSS scheduled for 07/14/2024 at 8am. Progress Prognosis: Good Frequency Frequency: 1x/Week Additional (Frequency): Frequency to change during POC based on patient's needs during and following chemoradiation treatment. Duration: 12 Months Goals that are Established Determination:: Goals will be added/modified as deemed necessary and appropriate. Therapy will be discontinued when results of re-evaluation indicate therapy is no longer needed or lack of progress has been documented. Goal #1-5 Goal #1: The patient will consume least restrictive diet textures without overt s/s of aspiration with minimal verbal cues for use of compensatory strategies to decrease risk for aspiration. Goal #2: The patient will complete an oropharyngeal exercise program X10 reps, 3-5X daily with minimal verbal cues to improve strength, ROM, and coordination of swallowing mechanism (jaw stretch, effortful, Kai, and Christie). Goal #3: The patient will participate in ongoing education re: short-term and long-term effects of chemoradiation treatment on swallow function and management of symptoms that contribute to dysphagia. Goal #4: The patient will participate in routine MBSS/FEES to objectively assess swallow function and provide recommendations for safest, least restrictive diet and compensatory strategies to reduce risk for aspiration during and following chemoradiation treatment. Education Patient has Indicated that the Following The Patient has indicated that they have no educational or learning abilities that may effect their care.: Yes Patient Instruction Patient Education: Diagnosis, Treatment Plan, Safety Precautions, Diet Level and Home Exercise Program Other Education: Educated the patient re: short-term and long-term effects of chemoradiation treatment that increase his risk for worsening dysphagia, such as mucositis, odynophagia, xerostomia, hypo/dysgeusia, disuse atrophy, and radiation fibrosis. Discussed consuming as much oral intake as he safely can and completing oropharyngeal exercises as much as able during treatment to promote best ocean transportation intermediary outcome of swallow function. Provided the patient a handout and demonstration of prophylactic oropharyngeal exercise program, as well as a jaw ROM exercise (Christie, Effortful, Kai, Jaw Stretch). The patient provided return demonstration with all exercises with minimal verbal cues. The patient would benefit from continued training to monitor proper execution of exercises and encourage strict adherence to exercise program. Person Taught: Patient Teaching Method: Discussion, Demonstration and Handout Response to teaching: Return Demonstration, Verbalize Understanding, Reinforcement Needed and Has Prior Knowledge
[2024-10-15 11:23] VITALS: BP 123/75; PULSE 105; RESP 16; TEMP 35.9; O2SAT 95; BMI 30.3
[2024-10-15 12:05] LABS: Hematocrit 32.2 % (40-54); Hemoglobin 10.6 g/dL (13.0-16.5); Immature Granulocytes Count 0.160 X10^3/uL (0.0-0.0); Mean Corp Hgb Conc 32.9 g/dL (32-36); Mean Corpuscular Volume 98.5 fL (80-94); Mean Platelet Vol. 10.5 fl (6.2-12.0); NRBC Flagged by Analyzer 0 % (0-5); POSITIVE COUNT YES; POSITIVE DIFFERENTIAL YES; Platelet Count 90 K/mm3 (150-450); RBC Distribution Width CV 18.0 % (11.6-14.6); RBC Distribution Width SD 64.1 fl (35.1-43.9); Red Blood Count 3.27 M/mm3 (4.6-6.2); White Blood Count 5.2 K/mm3 (4.4-11.0)
[2024-10-15 12:30] LABS: AST(SGOT) 15 U/L (<=37); Alanine Aminotransfer ALT/SGPT 10 U/L (<=46); Albumin, Serum 3.3 g/dL (3.4-4.8); Alkaline Phosphatase 122 U/L (40-129); Anion Gap 14 (5-15); BUN 16 mg/dL (4-19); BUN/Creat Ratio 21.8 RATIO (10-20); Calcium,Total 9.1 mg/dL (7.6-11.0); Carbon Dioxide 24.7 mmol/L (21.0-32.0); Chloride 98 mmol/L (98-108); Estimated Creatinine Clearance 107.18 ml/min (50-250); Globulin 2.7 g/dL (2.2-4.2); Glucose 127 mg/dL (70-99); Potassium 3.3 mmol/L (3.3-5.1)
[2024-10-15 15:14] VITALS: BP 103/56; PULSE 81; RESP 16
[2024-10-15 19:58] LABS: Xtra Tube EP Lab EXTRA TUBE
--- NOTE | 2024-12-23 14:04 | NS ---
12/23/24: AMYN called pt's cell phone but no one answered. Left voicemail for pt to call back with questions or concerns. Spoke with Rosalia LEDBETTER after pt's appointment this morning and got an update on pt's progress. Plan to follow-up with pt on 12/08/24 after LANG INTERPRETER. Sherrie Abel RDN, LD
--- NOTE | 2025-02-23 08:51 | HP.SP.DC ---
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 He underwent chemoradiation treatment. He followed w/ ST during and following treatment for 18 visits 07/23/2024-01/19/2025 to manage worsening dysphagia during treatment. He participated in 2 MBSS during POC (07/14/2024, 11/16/2024), most recent MBSS showed mild-moderate oropharyngeal dysphagia s/p treatment. He was able to wean from PEG tube in December 2024 and has not required additional ST sessions at this time. Will discharge pt from ST POC; however, he is recommended for MBSS in February of 2025 for ongoing assessment of swallow function and aspiration risk given hx of SCC of BOT s/p chemoradiation treatment.
== END 2025-01-19 19:00 | disposition home or self-care (01) ==
LOC: SP 09:30
PROVIDERS: Nurse Practitioner Family; PCP Family Medicine Geriatric Medicine; Referring Provider Student in an Organized Health Care Education/Training Program; Visit Provider Student in an Organized Health Care Education/Training Program
DX: C01 Malignant neoplasm of base of tongue (principal); R63.4 Abnormal weight loss
CPT/HCPCS: 36591; 80053; 84443; 85025; 92526; 92610; 94640; 97803; A4216

== ENCOUNTER → 2025-02-22 | Outpatient (CLI) | payer MEDICARE, OTHER, SELFPAY ==
[2025-02-22] MEDS: 0.9% Saline Lock 10 ML Syringe IV ×2 (14:05→14:20)
--- NOTE | 2025-02-22 14:15 | CT_ITS ---
PROCEDURE: CHEST WITH CONTRAST 02/22/2025 REASON FOR EXAM: RUL NODULE TECHNIQUE: Procedure Code: CTCHW Modality: CT Procedure: CHEST WITH CONTRAST Coronal and Sagittal reconstruction series were provided. CONTRAST: Isovue-300 VOLUME: 97 mL One or more dose reduction techniques were used (e.g., Automated exposure control, adjustment of the mA and/or kV according to patient size, use of iterative reconstruction technique). RADIATION DOSE SUMMARY: DLP: 700.26 mGycm COMPARISON: CTA chest 09/26/2024 FINDINGS: Lines/devices: Left central venous catheter extends to the left innominate vein. Pulmonary parenchyma: No focal lung consolidation. Emphysematous changes of the lungs. Biapical lung scarring. Left apical pulmonary bulla. Mild dependent atelectasis. There are no suspicious pulmonary nodules. Airways: The central airways are patent. Pleural space: No pneumothorax or pleural effusion. Heart and pericardium: The heart is normal in size. No pericardial effusion. There are coronary artery calcifications. Mediastinum and lai: Unremarkable. Thoracic vessels: There is residual right segment pulmonary embolus in the right lower lobe bronchus (series 2 image 82). The thoracic aorta and main pulmonary artery are normal in caliber. Osseous structures: No aggressive osseous lesion. Degenerative changes of the thoracic spine. Upper visualized abdomen: Unremarkable. CT/Chest WITH Contrast IMPRESSION: 1. Compared to CTA of the chest 09/26/2024, residual right segmental pulmonary embolus. 2. Biapical lung scarring. No suspicious pulmonary nodules. 3. Coronary artery calcifications. Reading Location: [id number]
== END | disposition home or self-care (01) ==
LOC: CT 13:11
PROVIDERS: PCP Family Medicine Geriatric Medicine; Referring Provider Nurse Practitioner Family; Visit Provider Nurse Practitioner Family
DX: R91.1 Solitary pulmonary nodule (principal)
CPT/HCPCS: 71260; Q9967; A4216

== ENCOUNTER 2025-03-01 12:35 | Outpatient (RCR) | payer MEDICARE, OTHER, SELFPAY | END 2025-03-24 23:59 | LOC: NS 12:35 | PROVIDERS: PCP Family Medicine Geriatric Medicine; Visit Provider Student in an Organized Health Care Education/Training Program | DX: Z71.3 Dietary counseling and surveillance (principal); C01 Malignant neoplasm of base of tongue | CPT/HCPCS: 97803 ==